=== PATIENT | female | born 1955 | race Caucasian/White ===

== ENCOUNTER 2023-05-16 11:02 | Emergency (ER) | payer MEDICARE, SELFPAY ==
[2023-05-16 11:17] VITALS: BP 174/97; PULSE 81; RESP 20; TEMP 36.7; O2SAT 95; BMI 38.7
--- NOTE | 2023-05-16 11:32 | ECG_ITS ---
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
--- NOTE | 2023-05-16 11:32 | CT_ITS ---
The [address] [address] Patient Name: INDERJIT MANN MRN: [id number] date: 1955 Sex: F Assigned Patient Location: ER Current Patient Location: ER Accession/Order Number: [id number] Exam Date: 05/16/2023 11:55 Report Date: 05/16/2023 12:25 At the request of: HERMAN HASSAN Procedure: CT head/brain wo con EXAM: CT head/brain wo con HISTORY: vertigo COMPARISON: None. TECHNIQUE: Axial CT images were obtained of the head without intravenous contrast. Multiplanar reconstructions were performed. FINDINGS: No acute intracranial hemorrhage. No acute loss of lovelace/white differentiation. The ventricles and sulci are normal in appearance. The osseous structures are unremarkable. No soft tissue abnormality identified. The paranasal sinuses and mastoid air cells are clear. IMPRESSION: 1. No acute intracranial abnormality. Electronically authenticated by: YISEL CORMIER Date: 05/16/2023 12:25
[2023-05-16 11:56] LABS: Basophils Percent Auto 0.4 % (0.2-2.0); Eosinophils Absolute Auto 0.1 10^3/uL (0.0-0.7); Eosinophils Percent Auto 1.6 % (0.9-7.0); Hematocrit 43.8 % (36.0-48.0); Hemoglobin 14.5 g/dL (12.0-16.0); Immature Granulocytes Abs Auto 0.03 10^3/uL (0.00-0.03); Immature Granulocytes Pct Auto 0.4 % (0.0-0.5); Lymphocytes Absolute Auto 1.3 10^3/uL (1.2-3.8); Mean Corpuscular HGB Conc 33.1 g/dL (29.9-35.2); Mean Corpuscular Hemoglobin 28.9 pg (26.7-34.0); Mean Corpuscular Volume 87.3 fL (81.0-99.0); Mean Platelet Volume 9.2 fL (9.5-13.5); Monocytes Absolute Auto 0.7 10^3/uL (0.3-0.8); Monocytes Percent Auto 8.9 % (1.7-12.0); Neutrophils Absolute Auto 5.1 10^3/uL (1.4-6.5); Neutrophils Percent Auto 70.7 % (43.0-75.0); Platelet Count 256 10^3/uL (150-450); Red Blood Count 5.02 10^6/uL (4.20-5.40); Red Cell Distribution Width 14.3 % (11.0-15.0); White Blood Count 7.3 10^3/uL (4.0-11.0)
[2023-05-16 11:57] VITALS: BP 108/67; BP 111/68; BP 116/64; PULSE 76; PULSE 85; PULSE 94
[2023-05-16] MEDS: MECLIZINE HCL 12.5 MG TABLET 25 MG PO (12:07)
[2023-05-16] MEDS: ONDANSETRON PF 4 MG/2 ML VIAL IV (12:08)
[2023-05-16] MEDS: 0.9 % SODIUM CHLORIDE 1,000 ML 999 ML IV (12:10)
[2023-05-16] MEDS: METHYLPREDNISOLONE SOD SUCC PF 125 MG/2 ML VIAL IVP (12:10)
[2023-05-16] MEDS: DIAZEPAM 5 MG/ML - 2 ML INJ SYRINGE 2 MG IV (12:15)
--- NOTE | 2023-05-16 12:15 | ED.DIZZY1 ---
HPI - Dizziness General Chief Complaint: Dizziness Stated Complaint: DIZZINESS Time Seen by Provider: 05/16/23 11:10 Source: patient Mode of arrival: ambulance Limitations: no limitations History of Present Illness HPI Narrative: patient developed dizziness about 3 weeks ago. Recently it has become worse and she is having difficulty performing normal tasks at home. She describes it as an intense sensation of movement or spinning, worse with movement of the head or change in body position. No nausea or vomiting. She denied URI symptoms but admits to some pain along the right side of the head and right neck. She has seasonal allergies. She suffers from urinary and stool incontinence associated with low back surgery - these are chronic. She denied any chest pain, pressure or tightness. She has chronic palpitations. Related Data Home Medications Medication Instructions Recorded Confirmed alprazolam 1 mg tablet mg 05/16/23 atenolol 50 mg tablet mg 05/16/23 Previous Rx's Medication Instructions Recorded meclizine 25 mg tablet 25 mg PO .q8hr PRN dizziness #20 05/16/23 tabs ondansetron 4 mg disintegrating 4 mg PO Q6H PRN vertigo #20 tabs 05/16/23 tablet Allergies Allergy/AdvReac Type Severity Reaction Status Date / Time Sulfa (Sulfonamide Allergy Intermediate Verified 05/16/23 11:24 Antibiotics) [facility] Medical History (Updated 05/16/23 @ 12:53 by Herman Hassan) Surgical History (Updated 05/16/23 @ 12:28 by Margoth Armendariz) Social History Smoking status: Never smoker Exam Narrative Exam Narrative: Nurses notes and vital signs reviewed and patient is not hypoxic. afebrile General: Well-appearing and in no apparent distress. Skin: Warm, dry, no pallor noted. No rash. Head: Normocephalic, atraumatic. Neck: Supple, non-tender. Eye: Pupils are equal, round and EOMI. No scleral icterus. mild horizontal nystagmus Ears, Nose, Mouth, and Throat: TM are clear, no nasal mucosal hypertrophy. Oral mucosa is moist, no posterior oropharynx erythema, uvula is mid-line Cardiovascular: Regular Rate and Rhythm without murmur, gallop or rub. Respiratory: No accessory muscle use or respiratory distress. Lungs are clear to auscultation, no wheezing, rales or rhonchi Musculoskeletal: normal ROM, no calf or popliteal tenderness, no lower extremity edema/swelling GI: Abdomen is soft, non-distended. Normal bowel sounds. No tenderness to palpation. No rebound, guarding, or rigidity noted. Neurological: A&O x4. No cranial nerve dysfunction observed. Mild truncal ataxia when she first sits up or turns her head. Moves all extremities. Sensation intact. Psychiatric: Cooperative and interactive. Normal mood and affect. Constitutional Vital Signs - 24 hr 05/16/23 11:17 05/16/23 11:57 Temperature 98.0 F Pulse Rate [Monitor] 81 Pulse Rate [orthostatic lying] 76 Pulse Rate [orthostatic sitting Left] 85 Pulse Rate [orthostatic standing Left] 94 H Respiratory Rate 20 Blood Pressure [Left Arm] 174/97 H Blood Pressure [orthostatic lying Left Arm] 116/64 Blood Pressure [orthostatic sitting Left Arm] 111/68 Blood Pressure [orthostatic standing Left Arm] 108/67 Pulse Oximetry 95 Course Vital Signs Vital signs: Vital Signs Temperature 98.0 F 05/16/23 11:17 Pulse Rate 81 05/16/23 11:17 Respiratory Rate 20 05/16/23 11:17 Blood Pressure 174/97 H 05/16/23 11:17 Pulse Oximetry 95 05/16/23 11:17 Temperature 98.0 F 05/16/23 11:17 Pulse Rate 76 05/16/23 11:57 Respiratory Rate 20 05/16/23 11:17 Blood Pressure 116/64 05/16/23 11:57 Pulse Oximetry 95 05/16/23 11:17 MDM - Dizziness MDM Narrative Medical decision making narrative: 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 Blood drawn and sent for evaluation. orthostatics were negative but she had an 18bpm increase in her HR from supine to standing. She was given a liter of NS IVF. She was sent for noncontrast CT scanning of the brain. CT unremarkable for acute pathology. CBC, electrolytes and renal function normal. Elevation of LFTs is noted. The patient received IV Valium, IV Zofran, IV Solu-Medrol and oral meclizine. On recheck her vertigo was substantially decreased. She was informed of results, diagnosis discussed and she was discharged home prescription for zofran and meclizine. She will see her PCP for follow up. Lab Data Attestation: I reviewed the patient's lab results. Labs: Lab Results 05/16/23 Range/Units 11:50 WBC 7.3 (4.0-11.0) 10^3/uL RBC 5.02 (4.20-5.40) 10^6/uL Hgb 14.5 (12.0-16.0) g/dL Hct 43.8 (36.0-48.0) % MCV 87.3 (81.0-99.0) fL MCH 28.9 (26.7-34.0) pg MCHC 33.1 (29.9-35.2) g/dL RDW 14.3 (11.0-15.0) % Plt Count 256 (150-450) 10^3/uL MPV 9.2 L (9.5-13.5) fL Neut % (Auto) 70.7 (43.0-75.0) % Lymph % (Auto) 18.0 L (20.5-60.0) % [place] % (Auto) 8.9 (1.7-12.0) % Eos % (Auto) 1.6 (0.9-7.0) % Baso % (Auto) 0.4 (0.2-2.0) % Neut # (Auto) 5.1 (1.4-6.5) 10^3/uL Lymph # (Auto) 1.3 (1.2-3.8) 10^3/uL [place] # (Auto) 0.7 (0.3-0.8) 10^3/uL Eos # (Auto) 0.1 (0.0-0.7) 10^3/uL Baso # (Auto) 0.0 (0.0-0.1) 10^3/uL Abs Immat Gran (auto) 0.03 (0.00-0.03) 10^3/uL Imm/Tot Granulo (auto) 0.4 (0.0-0.5) % Sodium 142 (136-145) mmol/L Potassium 3.9 (3.5-5.1) mmol/L Chloride 108 H (98-107) mmol/L Carbon Dioxide 27.2 (21.0-32.0) mmol/L Anion Gap 10.7 BUN 12.0 (7.0-18.0) mg/dL Creatinine 0.85 (0.55-1.02) mg/dL Est GFR ( Amer) >60 (>=60) Est GFR (Non-Af Amer) >60 (>=60) BUN/Creatinine Ratio 14.1 Glucose 120 H (74-106) mg/dL Calcium 9.2 (8.5-10.1) mg/dL Total Bilirubin 0.6 (0.2-1.0) mg/dL AST 167 H (15-37) U/L ALT 302 H (14-59) U/L Alkaline Phosphatase 173 H (46-116) U/L Total Protein 7.0 (6.4-8.2) g/dL Albumin 3.4 (3.4-5.0) g/dL Globulin 3.6 g/dL Albumin/Globulin Ratio 0.[address] scan - head: Radiologist's impression: Patient Name: INDREJIT MANN MRN: [id number] date: 1955 Sex: F Assigned Patient Location: ER Current Patient Location: ER Accession/Order Number: [id number] Exam Date: 05/16/2023 11:55 Report Date: 05/16/2023 12:25 At the request of: HERMAN HASSAN Procedure: CT head/brain wo con EXAM: CT head/brain wo con HISTORY: vertigo COMPARISON: None. TECHNIQUE: Axial CT images were obtained of the head without intravenous contrast. Multiplanar reconstructions were performed. FINDINGS: No acute intracranial hemorrhage. No acute loss of lovelace/white differentiation. The ventricles and sulci are normal in appearance. The osseous structures are unremarkable. No soft tissue abnormality identified. The paranasal sinuses and mastoid air cells are clear. IMPRESSION: 1. No acute intracranial abnormality. Electronically authenticated by: YISEL CORMIER Date: 05/16/2023 12:25 ECG Data Interpretation: EKG interpretation: Emergency Department physician interpretation. Normal sinus rhythm at 77bpm. Normal axis, normal intervals. Premature contraction was noted. No ST segment elevation or depression. Discharge Plan Discharge Chief Complaint: Dizziness Clinical Impression: Benign paroxysmal positional vertigo Patient Disposition: Home, Self-Care Time of Disposition Decision: 12:52 Prescriptions / Home Meds: New ondansetron 4 mg tablet,disintegrating 4 mg PO Q6H PRN (Reason: vertigo) Qty: 20 0RF meclizine 25 mg tablet 25 mg PO .q8hr PRN (Reason: dizziness) Qty: 20 0RF No Action alprazolam 1 mg tablet atenolol 50 mg tablet Instructions: Benign Paroxysmal Positional Vertigo (ED) Stand Alone Forms: Portal Instructions Referrals: Connie Stewart MD [Primary Care Provider] - 1 week
[2023-05-16 12:16] LABS: Alanine Aminotransferase 302 U/L (14-59); Albumin Globulin Ratio 0.9; Albumin Level 3.4 g/dL (3.4-5.0); Alkaline Phosphatase 173 U/L (46-116); Anion Gap 10.7; Aspartate Amino Transferase 167 U/L (15-37); BUN Creatinine Ratio 14.1; Bilirubin Total 0.6 mg/dL (0.2-1.0); Calcium 9.2 mg/dL (8.5-10.1); Carbon Dioxide 27.2 mmol/L (21.0-32.0); Chloride 108 mmol/L (98-107); Estimated GFR (African America >60 (>=60); Estimated GFR (Non-African Ame >60 (>=60); Globulin 3.6 g/dL; Glucose 120 mg/dL (74-106); Potassium 3.9 mmol/L (3.5-5.1); Sodium 142 mmol/L (136-145)
[2023-05-16 13:49] VITALS: BP 120/76; PULSE 88; RESP 16; O2SAT 97
== END 2023-05-16 13:52 | disposition home or self-care (01) ==
PROVIDERS: Emergency Provider Emergency Medicine; PCP Family Medicine
DX: H81.10 Benign paroxysmal vertigo, unspecified ear (principal); R32 Unspecified urinary incontinence; R15.9 Full incontinence of feces; Z79.899 Other long term (current) drug therapy
CPT/HCPCS: 36415; 70450; 80053; 81003; 85025; 93005; 96374; 96375; 99285; J2930

== ENCOUNTER 2023-12-19 09:18 | Outpatient (OUT) | payer MEDICARE, SELFPAY ==
--- NOTE | 2023-12-19 09:42 | XR_ITS ---
The [address] [address] Patient Name: INDERJIT MANN MRN: [id number] date: 1955 Sex: F Assigned Patient Location: [facility] Current Patient Location: [facility] Accession/Order Number: [id number] Exam Date: 12/19/2023 09:48 Report Date: 12/19/2023 14:04 At the request of: TOBY QUINTANA Procedure: XR facial bones min 3V PROCEDURE: XR facial bones min 3V COMPARISON: None. HISTORY: Jaw Swelling R22.0 FINDINGS: BONES:No fracture, acute abnormality, or significant arthropathy. SOFT TISSUES:Negative. No visible soft tissue swelling. EFFUSION:None visible. OTHER: Negative. XR/XR facial bones min 3V IMPRESSION: No acute radiographic abnormality Electronically authenticated by: CAITLYN CABRERA Date: 12/19/2023 14:04
== END 2023-12-19 09:19 | disposition home or self-care (01) ==
LOC: RAD 09:20
PROVIDERS: PCP Family Medicine; Visit Provider Family Medicine
DX: R22.0 Localized swelling, mass and lump, head (principal)
CPT/HCPCS: 70150

== ENCOUNTER 2023-12-30 10:41 | Outpatient (OUT) | payer MEDICARE, SELFPAY ==
--- OUTSIDE RECORDS SUMMARY | 2023-12-30 10:50 | XMS_ITS | CCD ---
Author Name Unknown Address [address] [place] [address] Organization [facility] Care Team Providers Care Project Management Director Name Role Phone Toby Quintana Unavailable Unavailable Unavailable MD Toby Quintana Primary Care Provider [phone] Leeann Quintana Attending Provider [phone] Unavailable Unavailable Leeann Quintana Unavailable DR SHALA OMER Consulting Unavailable QUINTANA, DR TOBY Schofield Admitting Unavailable QUINTANA, DR TOBY Schofield Attending Unavailable QUINTANA, DR TOBY Schofield Primary Care Unavailable QUINTANA, DR TOBY Schofield Consulting Unavailable QUINTANA, DR TOBY Schofield Admitting Unavailable QUINTANA, DR TOBY Schofield Attending Unavailable QUINTANA, DR TOBY Schofield Consulting Unavailable QUINTANA, DR TOBY Schofield Primary Care Unavailable QUINTANA, DR TOBY Schofield Admitting Unavailable [place], DR CAITLYN Noe Consulting Unavailable QUINTANA, DR TOBY Schofield Attending Unavailable QUINTANA, DR TOBY Schofield Primary Care Unavailable QIUNTANA, DR TOBY Schofield Consulting Unavailable LAWRENEC, DR LAUREL Banks Admitting Unavailabl e QUINTANA, DR TOBY Schofield Primary Care Unavailable REINECK, DR LAUREL Banks Attending Unavailabl e LAWRENCE, DR LAUREL Banks Consulting Unavailabl e QUINTANA, DR TOBY Schofield Primary Care Unavailable BLADELEEANN Saldana Referring Unavailable LAKSHMIPATHY ., NARENDRANATH Admitting Nanda vailable LAKSHMIPATHY ., LASHONDA Attending Nanda vailable MARIANO, DR TOBY Schofield Admitting Unavailable QUINTANA, DR TOBY Schofield Primary Care Unavailable QUINTANA, DR TOBY Schofield Attending Unavailable QUINTANA, DR TOBY Schofield Consulting Unavailable Toby Quintana Unavailable MD Samuel Chatman II Attending Provider EdwardsLeeann Admitting Unavailable Leeann Quintana Attending Unavailable Toby Quintana Primary Care Unavailable Samuel Chatman II Admitting UnavailSamuel Dubois II Attending UnavailToby Swain Primary Care Unavailable Samuel Chatman II Unavailable [phone] ZEESHAN, Dr. AGUSTIN Henning Attending Unavailable Toby Quintana Primary Care Unavaila marianna Quintana, Dr. Toby Feliz Primary Care Unav ailable Lore, Dr. Iban Penn Referring Nanda heide Quintana, Dr. Toby Feliz Primary Care Unav ailable Lore, Dr. Iban Penn Attending Nanda Toby Ron MD Primary Care Provider [phone] IBAN TORREZ Attending Unavailable TOBY QUINTANA Primary Care Unavailable Allergies Allergy Classification Reported Allergen(s) Allergy Type Date of Onset Reaction(s) Facility (6 sources) Sulfamethoxazole; Translations: [sulfa] Drug Allergy Rash, Swelling [address] Work Phone: (5 sources) Sulfonamides (Antibiotic); Translations: [Sulfa (Sulfonamide Antibiotics)] Allergy to substance 04-08-20 19 Hives, Rash, Swelling [facility] (20 sources) Sulfacetamide / Sulfur Drug Allergy rash [facility] Other (1 source) Morphine Drug Allergy [facility] (1 source) Quinolones (Antibiotic) Drug allergy (disorder) [facility] (2 sources) Sulfonamides (Antibiotic) Drug allergy (disorder) 08-06-20 13 [facility] (12 sources) Acetaminophen / oxyCODONE Drug Allergy 07-28-20 13 Unknown [facility] Other (12 sources) Meperidine Drug Allergy 07-28-20 13 Unknown [facility] Other (13 sources) Quinolones Drug allergy 07-28-20 13 Comment:Fluorq uinolones [facility] Other (13 sources) sulfADIAZINE Drug Allergy Unknown [facility] Other (13 sources) Substance with sulfonamide structure and antibacterial mechanism of action (substance) Drug allergy 07-28-20 13 Unknown [facility] Other (13 sources) Statins Depletion *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 Propensity to adverse reactions 07-28-20 13 Unknown [facility] Other (4 sources) Allergies Reconciled Propensity to adverse reactions Unknown [facility] Other (4 sources) patient allergy list reviewed by nurse or physicia Propensity to adverse reactions 07-15-20 Comment:Done [facility] Other (1 source) Acetaminophen / oxyCODONE Drug Allergy 07-28-20 13 Unknown [facility] Other (1 source) Meperidine Drug Allergy 07-28-20 13 Unknown [facility] Other Medications Current Medications Medication Drug Class(es) Dates Sig (Normalized) Sig (Original) acetaminophen 325 mg / HYDROcodone bitartrate 5 mg oral tablet (20 sources) Opioid Agonist Start: 08-31-2021 End: 12-09-2023 take 1 tablet by mouth every four hours as needed HYDROcodone-acetami nophen ([place]) 5-325 mg tablet Take 1 tablet by mouth every 4 hours if needed. 0 08/31/2021 12/09/2023 Discontinued (Therapy completed) Start: 08-31-2021 HYDROcodone-Ac etaminophen 5-325 MG Oral Tablet Quantity: 120 Refills: 0 Ordered: 31-Aug-2021 DO Start : 31-Aug-2021 Active take 1 tablet by valentin every six hours HYDROcodone-Acetaminophen 5-325 MG take 1 tablet by mouth every 6 hours if needed Oral for 30 Days Active albuterol 0.83 mg/ml inhalation solution (5 sources) beta2-Adrenergic Agonist Albuter ol Sulfate (2.5 MG/3ML) 0.083% 3 mL as needed Inhalation every 6 hrs Active ALPRAZolam 1 mg oral tablet (20 sources) Benzodiazepine Start: 12-08-19 take 1 tablet by mouth twice daily for anxiety, then take 2 tablets by mouth at bedtime for anxiety ALPRAZolam 1 MG TAKE 1 TABLET BY MOUTH TWICE A DAY IF NEEDED FOR ANXIETY AND 2 TABLETS AT BEDTIME for 30 Nov, Active Start: 11-04-2023 take 1 tablet by valentin th twice daily for anxiety, then take 2 tablets by mouth at bedtime for anxiety ALPRAZolam 1 MG TAKE 1 TABLET BY MOUTH TWICE A DAY IF NEEDED FOR ANXIETY AND 2 TABLETS AT BEDTIME for 30 Oct, Active Start: 09-10-2023 take 1 tablet by valentin th twice daily for anxiety, then take 2 tablets by mouth at bedtime for anxiety ALPRAZolam 1 MG TAKE 1 TABLET BY MOUTH TWICE A DAY IF NEEDED FOR ANXIETY AND 2 TABLETS AT BEDTIME for 30 Sep, Active Start: 08-04-2023 take 1 tablet by valentin th twice daily for anxiety, then take 2 tablets by mouth at bedtime for anxiety ALPRAZolam 1 MG TAKE 1 TABLET BY MOUTH TWICE A DAY IF NEEDED FOR ANXIETY AND 2 TABLETS AT BEDTIME for 30 Jul, Active Start: 05-12-2023 take 1 tablet by valentin th twice daily for anxiety, then take 2 tablets by mouth at bedtime for anxiety ALPRAZolam 1 MG TAKE 1 TABLET BY MOUTH TWICE A DAY IF NEEDED FOR ANXIETY AND 2 TABLETS AT BEDTIME for 30 May, Active Start: 04-11-2023 Start: 02-17-2023 take 1 tablet by valentin th twice daily as needed for anxiety, then take 2 tablets by mouth once daily at bedtime as needed for anxiety Xanax 1 MG 1 tab bid prn anxiety and 2 po qhs Orally for 30 days Feb, Active Start: 12-17-2022 take 1 tablet by valentin th twice daily as needed for anxiety, then take 2 tablets by mouth once daily at bedtime as needed for anxiety Xanax 1 MG 1 tab bid prn anxiety and 2 po qhs Orally for 30 days Jan, Active Start: 04-08-2019 take 2 mg by mouth o nce daily at bedtime Alprazolam Active 2 MG PO Daily at bedtime April 07, 2019 11:00pm take 1 tablet by valentin th three times daily as needed ALPRAZolam (Xanax) 1 mg tablet Take 1 tablet (1 mg) by mouth 3 times a day as needed. 0 Active amoxicillin 500 mg oral capsule (13 sources) Penicillin-class Antibacterial Start: 10-21-2023 take 1 capsule by mouth every eight hours Amoxicillin 500 MG 1 capsule Orally every 8 hrs for 7 days Oct, Active Start: 04-14-2023 take 4 capsules by mouth once Amoxicillin 500 MG 4 caps Orally once for 1 days Apr, Active take 1 capsule by mo uth every eight hours Amoxicillin 500 MG 1 capsule Orally Three times a day for 7 days Active take 2 capsules by m outh every twelve hours Amoxicillin 500 MG 2 capsules Orally Twice a day for 2 days Active atenolol 50 mg oral tablet (20 sources) beta-Adrenergic Anahi Start: 12-08-2023 take 1 tablet by mouth once daily in the morning, then take 0.5 tablet by mouth in the evening atenolol (Tenormin) 50 mg tablet Indications: Supraventricular tachycardia by ECG , Palpitations TAKE 1 TABLET BY MOUTH EVERY MORNING then TAKE 1/2 (ONE-HALF) OF A TABLET IN THE EVENING 225 tablet 0 12/08/2023 Active Start: 08-30-2021 take 0.5 tablet by m outh twice daily Atenolol 50 MG Oral Tablet TAKE 1/2 TABLET TWICE DAILY Quantity: 90 Refills: 3 Ordered: 22-May-2023 Iban Torrez MD Start : 30-Aug-2021 Active decreased Start: 04-08-2019 take 25 mg by mouth once daily Atenolol Active 25 MG PO Daily April 07, 2019 11:00pm Start: 04-08-2019 take 50 mg by mouth once daily in the evening Atenolol Active 50 MG PO Every evening April 07, 2019 11:00pm DULoxetine 60 mg delayed release oral capsule (2 sources) Serotonin and Norepinephrine Reuptake Inhibitor Start: 04-08-2019 take 60 mg by mouth once daily Duloxetine Active 60 MG PO Daily April 07, 2019 11:00pm Fish Oil-Krill Oil - (2 sources) Fish Oil-Krill Oil - as directed Orally Active 120 actuat fluticasone propionate 0.23 mg/actuat / salmeterol 0.021 mg/actuat metered dose inhaler (5 sources) Corticosteroid, beta2-Adrenergic Agonist take 2 puff(s) by inhalation twice daily Advair HFA 230-21 MCG/ACT 2 puffs Inhalation Twice a day Active naproxen 500 mg oral tablet (2 sources) Nonsteroidal Anti-inflammatory Drug Start: 04-08-2019 take 500 mg by mouth twice daily Naproxen Active 500 MG PO Twice daily April 07, 2019 11:00pm omega 9-kfb-crs-fish oil 360 mg-108 mg- 180 mg-1,200 mg capsule (1 source) take 1 capsule by mouth once daily omega 3-gco-zks-fish oil 360 mg-108 mg- 180 mg-1,200 mg capsule Take 1 capsule by mouth once daily. 0 Active ondansetron 4 mg disintegrating oral tablet (5 sources) Serotonin-3 Receptor Antagonist Start: 02-07-2023 take 1 tablet by mouth three times daily as needed Ondansetron 4 MG 1 tablet on the tongue and allow to dissolve Orally tid prn for 10 days Jan, Active oxyCODONE hydrochloride 5 mg oral tablet (10 sources) Opioid Agonist Start: 10-24-2023 take 1 tablet by mouth every six hours oxyCODONE HCl 5 MG 1 tablet as needed Orally every 6 hrs for 7 days Oct, Active Start: 10-24-2023 take 1 tablet by valentin every six hours oxyCODONE HCl 5 MG 1 tablet as needed Orally every 6 hrs for 7 days Oct, Active Start: 09-25-2023 take 1 tablet by valentin every six hours oxyCODONE HCl 5 MG 1 tablet as needed Orally every 6 hrs for 7 days Sep, Active take 1 capsule by mo [facility] every six hours as needed oxyCODONE (Oxy-IR) 5 mg immediate release capsule Take 1 capsule (5 mg) by mouth every 6 hours if needed for severe pain (7 - 10). 0 Active pregabalin 50 mg oral capsule (5 sources) take 1 capsule by mouth every twelve hours Lyrica 50 MG 1 capsule Orally Twice a day Active promethazine hydrochloride 12.5 mg oral tablet (9 sources) Phenothiazine take 1 tablet by mouth every six hours as needed Promethazine HCl 12.5 MG 1 tablet as needed Orally every 6 hrs prn for 5 days Active traMADol hydrochloride 50 mg oral tablet (2 sources) Opioid Agonist Start: 09-22-2023 take 1 tablet by mouth twice daily as needed traMADol HCl 50 MG 1 tablet as needed Orally bid prn for 30 days Sep, Active Completed/Discontinued Medications Medication Drug Class(es) Dates Sig (Normalized) Sig (Original) esomeprazole 40 mg delayed release oral capsule (16 sources) Proton Pump Inhibitor Start: 04-24-2023 take 1 capsule by mouth every twenty-four hours Esomeprazole Magnesium 40 MG 1 capsule Orally Once a day for 30 days Apr, Not-Taking/PRN Fish Oil 1200 MG Oral Capsule (5 sources) take 1 capsule by mouth once daily Fish Oil 1200 MG Oral Capsule TAKE 1 CAPSULE Daily Quantity: 0 Refills: 0 Ordered: 04-Sep-2021 DO Active Lidocaine (20 sources) Antiarrhythmic, Amide Local Anesthetic Start: 08-20-2023 Lidocaine Aug, 30 mg Start: 05-08-2023 Lidocaine 29 J un2022 30 mg Start: 02-07-2023 Start: 02-07-2023 Lidocaine 31 M ar, 2022 30 mg sucralfate 1000 mg oral tablet (16 sources) Aluminum Complex Start: 04-24-2023 take 1 tablet by mouth every twelve hours Carafate 1 GM 1 tablet on an empty stomach Orally Twice a day for 30 days Apr, Not-Taking/PRN Start: 04-24-2023 take 1 tablet by valentin th every twelve hours Carafate 1 GM 1 tablet on an empty stomach Orally Twice a day for 30 days Apr, Not-Taking triamcinolone acetonide 40 mg/ml injectable suspension (20 sources) Corticosteroid Start: 02-07-2023 Kenalog-40 Aug, 40 mg Start: 02-07-2023 Problems Active Problems Problem Classification Problem Date Documented Da te Episodic/Chronic Abdominal pain (12 sources) Left upper quadrant pain; Translations: [Left upper quadrant pain] Onset: 6 Episodic Acute bronchitis (4 sources) Acute bronchitis; Translations: [Acute bronchitis, unspecified] Episodic Allergic reactions (1 source) Allergy status to other antibiotic agents status; Translations: [Allergy status to other antibiotic agents] Onset: 3 Episodic Anxiety disorders (20 sources) Anxiety disorder, unspecified; Translations: [Anxiety] Onset: 9 Chronic Asthma (12 sources) Uncomplicated asthma; Translations: [Unspecified asthma, uncomplicated] Onset: 5 Chronic Cardiac dysrhythmias (12 sources) EKG: supraventricular tachycardia; Translations: [Paroxysmal supraventricular tachycardia] Onset: 4 12-09-2023 Chronic Cardiac dysrhythmias (10 sources) Palpitations; Translations: [Palpitations] Onset: 4 12-09-2023 Episodic Chronic obstructive pulmonary disease and bronchiectasis (5 sources) Chronic obstructive pulmonary disease, unspecified; Translations: [Acute exacerbation of chronic asthmatic bronchitis] Onset: 9 Chronic Disorders of lipid metabolism (18 sources) Hyperlipidemia; Translations: [Other and unspecified hyperlipidemia] Onset: 9 12-09-2023 Chronic Disorders of teeth and jaw (1 source) Periapical abscess without sinus Episodic Esophageal disorders (20 sources) Gastroesophageal reflux disease without esophagitis; Translations: [Gastro-esophageal reflux disease without esophagitis] Onset: 8 Chronic Essential hypertension (1 source) Essential (primary) hypertension; Translations: [Essential (primary) hypertension] Onset: 3 Chronic Gastroduodenal ulcer (except hemorrhage) (4 sources) H/O: peptic ulcer; Translations: [Personal history of peptic ulcer disease] Episodic Genitourinary symptoms and ill-defined conditions (4 sources) Dysuria; Translations: [Dysuria] Episodic Inflammation; infection of eye (except that caused by tuberculosis or sexually transmitteddisease) (4 sources) Acute atopic conjunctivitis; Translations: [Acute atopic conjunctivitis, unspecified eye] Episodic Malaise and fatigue (8 sources) Fatigue; Translations: [Other fatigue] Onset: 5 Episodic Mood disorders (1 source) Major depressive disorder, single episode, unspecified; Translations: [RODNEY DEPRESS D/O SINGLE EPIS UNS] Onset: 2 Chronic Nausea and vomiting (20 sources) Nausea and vomiting; Translations: [Nausea with vomiting, unspecified] Episodic Osteoarthritis (20 sources) Disorder of hip joint; Translations: [Unilateral primary osteoarthritis, unspecified hip] Onset: 3 Chronic Other acquired deformities (20 sources) Acquired unequal leg length; Translations: [Unequal limb length (acquired), unspecified site] Episodic Other circulatory disease (4 sources) Elevated blood-pressure reading without diagnosis of hypertension; Translations: [Elevated blood-pressure reading, without diagnosis of hypertension] Episodic Other connective tissue disease (1 source) Fibromyalgia; Translations: [Fibromyalgia] Onset: 3 Episodic Other connective tissue disease (1 source) Arthrodesis status; Translations: [Arthrodesis status] Onset: 3 Episodic Other connective tissue disease (4 sources) Fibromyalgia; Translations: [Fibromyalgia] Episodic Other diseases of veins and lymphatics (4 sources) Lymphedema; Translations: [Lymphedema, not elsewhere classified] Chronic Other diseases of veins and lymphatics (4 sources) Disorder of vein; Translations: [Other specified disorders of veins] Episodic Other gastrointestinal disorders (4 sources) Diarrhea; Translations: [Diarrhea, unspecified] Episodic Other injuries and conditions due to external causes (2 sources) At risk for falls ; Translations: [History of fall] Episodic Other lower respiratory disease (7 sources) Dyspnea; Translations: [Other respiratory abnormalities] Onset: 4 11-13-2023 Episodic Other nervous system disorders (20 sources) Chronic pain; Translations: [Other chronic pain] Chronic Other nervous system disorders (20 sources) Cervical myelopathy; Translations: [Disease of spinal cord, unspecified] Chronic Other nervous system disorders (20 sources) Chronic pain syndrome; Translations: [Chronic pain syndrome] Chronic Other nervous system disorders (5 sources) Other chronic pain Chronic Other non-traumatic joint disorders (20 sources) Knee pain; Translations: [Pain in left knee] Episodic Other non-traumatic joint disorders (2 sources) Pain in left hip; Translations: [PAIN IN LEFT HIP] Onset: 2 Episodic Other non-traumatic joint disorders (5 sources) Pain in right knee Episodic Other non-traumatic joint disorders (5 sources) Pain in left knee Episodic Other non-traumatic joint disorders (12 sources) Arthralgia of the lower leg; Translations: [Pain in right knee] Onset: 9 Episodic Other nutritional; endocrine; and metabolic disorders (11 sources) Body mass index 40+ - severely obese; Translations: [Body Mass Index 40.0-44.9, adult] Onset: 9 Chronic Other nutritional; endocrine; and metabolic disorders (1 source) Morbid obesity; Translations: [Morbid obesity] Chronic Other nutritional; endocrine; and metabolic disorders (3 sources) Obesity; Translations: [Obesity, unspecified] Chronic Other nutritional; endocrine; and metabolic disorders (1 source) Obesity, unspecified; Translations: [Obesity, unspecified] Onset: 3 Chronic Other nutritional; endocrine; and metabolic disorders (1 source) Body mass index (BMI) 39.0-39.9, adult; Translations: [Body mass index [BMI] 39.0-39.9, adult] Onset: 3 Chronic Other nutritional; endocrine; and metabolic disorders (9 sources) Obese class II; Translations: [Body mass index 39.0-39.9, adult] Onset: 8 12-09-2023 Chronic Other skin disorders (1 source) Localized swelling, mass and lump, head Episodic Other upper respiratory infections (4 sources) Chronic sinusitis; Translations: [Chronic sinusitis, unspecified] Chronic Other upper respiratory infections (8 sources) Acute pharyngitis; Translations: [Acute pharyngitis, unspecified] Onset: 4 Episodic Residual codes; unclassified (1 source) Swelling - edema - symptom; Translations: [Edema] Episodic Residual codes; unclassified (1 source) Acquired absence of both cervix and uterus; Translations: [Acquired absence of both cervix and uterus] Onset: 3 Episodic Residual codes; unclassified (1 source) Family history of malignant neoplasm of other organs or systems; Translations: [Family history of malignant neoplasm of organs or systems] Onset: 3 Episodic Residual codes; unclassified (1 source) Acquired absence of other organs; Translations: [Acquired absence of other organs] Onset: 3 Episodic Residual codes; unclassified (4 sources) Postmenopausal state; Translations: [Asymptomatic menopausal state] Episodic Screening and history of mental health and substance abuse codes (6 sources) Ex-smoker; Translations: [Personal history of tobacco use] Episodic Comment on above: quit 1987; Skull and face fractures (1 source) Fracture of tooth (traumatic), initial encounter for open fracture Episodic Spondylosis; intervertebral disc disorders; other back problems (20 sources) Intervertebral disc disorder of cervical region with myelopathy; Translations: [Cervical disc disorder at C6-C7 level with myelopathy] Onset: 3 Chronic Spondylosis; intervertebral disc disorders; other back problems (20 sources) Chronic low back pain; Translations: [Low back pain, unspecified] Onset: 3 Episodic Unclassified (3 sources) CONTACT W/AND (SUSP) EXPOS COVID-19; Translations: [CONTACT W/AND (SUSP) EXPOS COVID-19] Onset: 2 Unclassified (1 source) Pain in left hip; Translations: [Pain in left hip] Onset: 3 Unclassified (1 source) Low back pain, unspecified; Translations: [Low back pain, unspecified] Onset: 3 Unclassified (1 source) Supraventricular tachycardia, unspecified; Translations: [Supraventricular tachycardia, unspecified] Onset: 4 Varicose veins of lower extremity (4 sources) Pain co-occurrent and due to varicose veins of bilateral legs; Translations: [Varicose veins of bilateral lower extremities with pain] Episodic Past or Other Problems Problem Classification Problem Date Documented Date Episodic/Chronic Deficiency and other anemia (4 sources) Anemia; Translations: [Anemia, unspecified] Onset: 08-08-2015 Episodic Diabetes mellitus without complication (4 sources) Abnormal glucose level; Translations: [Other abnormal glucose] Onset: 06-04-2017 Episodic Headache; including migraine (4 sources) Headache; Translations: [Headache] Onset: 06-16-2018 Episodic Immunizations and screening for infectious disease (4 sources) Vaccination given; Translations: [Encounter for immunization] Onset: 09-12-2014 Episodic Other aftercare (1 source) Other intermediate (current) drug therapy; Translations: [OTH COLOR ADVISER CURRENT DRUG THERAPY] Onset: 07-23-2022 Episodic Other connective tissue disease (4 sources) Spasm; Translations: [Spasm of muscle] Onset: 01-07-2019 Episodic Other connective tissue disease (4 sources) Muscle pain; Translations: [MYALGIA, UNSPECIFIED SITE] Onset: 01-07-2019 Episodic Other injuries and conditions due to external causes (4 sources) Traumatic AND/OR non-traumatic injury; Translations: [Other injury of unspecified body region, initial encounter] Onset: 07-16-2018 Episodic Other non-epithelial cancer of skin (1 source) Personal history of other malignant neoplasm of skin; Translations: [PERSONAL HX OTH MALIG NEOPLASM SKIN] Onset: 07-23-2022 Episodic Other non-traumatic joint disorders (1 source) Pain in right hip; Translations: [PAIN IN RIGHT HIP] Onset: 04-18-2022 Episodic Other screening for suspected conditions (not mental disorders or infectious disease) (6 sources) Abnormal findings on diagnostic imaging of limbs; Translations: [Other nonspecific (abnormal) findings on radiological and other examinations of body structure] Resolved: 09-04-2021 Episodic Otitis media and related conditions (12 sources) Acute secretory otitis media; Translations: [Other acute nonsuppurative otitis media, left ear] Onset: 09-27-2014 Episodic Pneumonia (except that caused by tuberculosis or sexually transmitted disease) (4 sources) Pneumonia; Translations: [Pneumonia, unspecified organism] Onset: 01-14-2019 Episodic Poisoning by nonmedicinal substances (4 sources) Toxic effect of venom of bees, accidental (unintentional), initial encounter; Translations: [TOXIC EFF VENOM BEES ACC INIT ENC] Onset: 07-22-2022 Episodic Residual codes; unclassified (5 sources) History of clinical finding in subject; Translations: [Personal history of other specified diseases] Resolved: 09-04-2021 Episodic Residual codes; unclassified (4 sources) Insomnia; Translations: [Insomnia, unspecified] Onset: 01-04-2019 Episodic Residual codes; unclassified (4 sources) Edema; Translations: [Edema] Onset: 04-20-2018 Episodic Syncope (4 sources) Syncope and collapse; Translations: [Syncope and collapse] Onset: 03-12-2018 Episodic Unclassified (3 sources) Low back pain, unspecified back pain laterality, unspecified chronicity, unspecified whether sciatica present M54.50 Unclassified (1 source) CONTACT W/AND (SUSP) EXPOS COVID-19; Translations: [CONTACT W/AND (SUSP) EXPOS COVID-19] Onset: 07-24-2022 Unclassified (1 source) Onset: 12-09-2023 12-09-2023 Unclassified (1 source) Supraventricular tachycardia, unspecified; Translations: [Supraventricular tachycardia, unspecified] Onset: 12-09-2023 Results Test Name Value Interpretation Reference Range Facility XR hip LT min 2V(w/wo pelvis )*on 01-08-2023 XR hip LT min 2V(w/wo pelvis)* [facility] Main [place] [address] [place], [place] [id number] XRay Report Signed Patient: Adriana Dinero I MR#: [id number] : 1955 Acct:[id number] Age/Sex: 67 / F ADM Date: 01/08/23 Loc: [facility] [place] Room: Type: [place] [facility] Attending Dr: Samuel Chatman II, MD Copies to: Samuel Chatman MD Ordering Provider: Samuel Chatman MD Date of Service: 01/08/23 XR/XR hip LT min 2V(w/wo pelvis)*: Left hip pain LEFT HIP - 2 views: CLINICAL HISTORY: Left hip pain for months. COMPARISON: Hip series 11/22/2022 FINDINGS: Mild degenerative changes of both hips without acute bony process. XR/XR hip LT min 2V(w/wo pelvis)* IMPRESSION: MILD DEGENERATIVE CHANGES OF BOTH HIPS WITHOUT ACUTE BONY PROCESS.. Impression dictated by: Montana Pop Jr., D.O.01/08/2023 1:22 PM Dictation Location: [place] [address] Transcribed By: [facility] 01/08/23 1322 Dictated By: Montana Pop Jr, DO 01/08/23 1321 Signed By: 01/08/23 1322 Normal [facility] XR hip LT min 2V(w/wo pelvis)* [facility] [employer] Other XR hip LT min 2V(w/wo pelvis)* [facility] Main [facility] [employer] Other XR hip LT min 2V(w/wo pelvis)* [address] [place] [address] [employer] Other XR hip LT min 2V(w/wo pelvis)* [place] [address] [facility] [employer] Other XR hip LT min 2V(w/wo pelvis)* XRay Report [employer] [facility] [employer] Other XR hip LT min 2V(w/wo pelvis)* Signed [employer] Other XR hip LT min 2V(w/wo pelvis)* Patient: Adriana Dinero I MR#: [id number] [employer] Other XR hip LT min 2V(w/wo pelvis)* 056 [employer] Other XR hip LT min 2V(w/wo pelvis)* : 1955 Acct:[id number] [employer] Other XR hip LT min 2V(w/wo pelvis)* Age/Sex: 67 / F ADM Date: 01/08/23 [employer] Other XR hip LT min 2V(w/wo pelvis)* Loc: [facility] Room: Type: [facility] [employer] Other XR hip LT min 2V(w/wo pelvis)* Attending Dr: Samuel Chatman II, MD [employer] Other XR hip LT min 2V(w/wo pelvis)* Copies to: Samuel Chatman MD [employer] Other XR hip LT min 2V(w/wo pelvis)* Ordering Provider: Samuel Chatman MD [employer] Other XR hip LT min 2V(w/wo pelvis)* Date of Service: 01/08/23 [employer] Other XR hip LT min 2V(w/wo pelvis)* XR/XR hip LT min 2V(w/wo pelvis)*: Left hip pain [employer] Other XR hip LT min 2V(w/wo pelvis)* LEFT HIP - 2 views: [employer] Other XR hip LT min 2V(w/wo pelvis)* CLINICAL HISTORY: Left hip pain for months. [employer] Other XR hip LT min 2V(w/wo pelvis)* COMPARISON: Hip series 11/22/2022 [employer] Other XR hip LT min 2V(w/wo pelvis)* FINDINGS: Mild degenerative changes of both hips without acute bony process. [employer] Other XR hip LT min 2V(w/wo pelvis)* XR/XR hip LT min 2V(w/wo pelvis)* [employer] Other XR hip LT min 2V(w/wo pelvis)* IMPRESSION: [employer] Other XR hip LT min 2V(w/wo pelvis)* MILD DEGENERATIVE CHANGES OF BOTH HIPS WITHOUT ACUTE BONY PROCESS.. [employer] Other XR hip LT min 2V(w/wo pelvis)* Impression dictated by: Montana Pop Jr., D.OOdessa01/08/2023 1:22 PM [employer] Other XR hip LT min 2V(w/wo pelvis)* Dictation Location: [place] [address] [employer] Other XR hip LT min 2V(w/wo pelvis)* Transcribed By: VALERIE 01/08/23 [facility] [employer] Other XR hip LT min 2V(w/wo pelvis)* Dictated By: Montana Pop Jr, DO 01/08/23 [facility] [employer] Other XR hip LT min 2V(w/wo pelvis)* Signed By: [employer] Other XR hip LT min 2V(w/wo pelvis)* 01/08/23 [facility] [employer] Other Office Visit (Cardiology)on 12-09-2022 Follow-up visit Diagnoses/Problems Assessed Supraventricular tachycardia by ECG (427.0) (I47.1) Hyperlipidemia (272.4) (E78.5) Palpitations (785.1) (R00.2) Dyspnea (786.09) (R06.00) Former smoker (V15.82) (Z87.891) quit 1987 Morbid obesity with BMI of 40.0-44.9, adult (278.01,V85.41) (E66.01,Z68.41) At risk for falls (V15.88) (Z91.81) Orders Morbid obesity with BMI of 40.0-44.9, adult Healthy Weight Tips; Status:Complete - Retrospective Authorization; Done: 09Dec2022 Some eating tips that can help you lose weight.; Status:Complete - Retrospective Authorization; Done: 09Dec2022 SocHx: Former smoker Tobacco Use Screening; Status:Complete; Done: 09Dec2022 Patient Instructions Please bring all medicines, vitamins, and herbal supplements with you when you come to the office. Prescriptions will not be filled unless you are compliant with your follow up appointments or have a follow up appointment scheduled as per instruction of your physician. Refills should be requested at the time of your visit. FALL PREVENTION EDUCATION GIVEN Follow up in 1 year. Chief Complaint ADRIANA DINERO is being seen for an annual follow-up of. Patient is in the office for follow-up for the problems noted below. She had a fall last night and education was provided for prevention of future falls. The problem is her ambulation difficulties using the walker and her muscular disease and neuropathy. Cardiac reeder she has had no further cardiac arrhythmias on atenolol. Review of system essentially unremarkable her weight has dropped several pounds from last visit which is encouraging. Her lab data from recent testing were reviewed and presently no need for change in her medication was felt to be necessary. She asked for referral to rheumatology for muscular disease and provided the patient with 2 local contact person in town. ASSESSMENT AND PLAN: 1. Supraventricular tachycardia, on beta-anahi therapy using atenolol, well tolerated, no recurrences. 2. August 2019 nuclear stress test normal, July 2019 echocardiogram normal 3. Chronic lower extremity pain and numbness limiting daily activities to large extent 4?significant obesity, the patient's orthopedic problems gets in the way of weight loss. 5?patient is at risk for falls, education was provided to prevent future falls. Annual follow-up will be scheduled Iban Torrez MD, [facility] Surgical History Problems History of Back surgery History of Cholecystectomy History of Hysterectomy Past Medical History Problems History of Abnormal ultrasound of lower extremity (793.99) (R93.6) Resolved Date: 04 Sep 2021 History of edema (V13.89) (Z87.898) Resolved Date: 04 Sep 2021 Current Meds Medication NameInstruction Atenolol 50 MG Oral TabletTAKE 1 TABLET BY MOUTH EVERY MORNING AND 1/2 TABLET EVERY EVENING Fish Oil 1200 MG Oral CapsuleTAKE 1 CAPSULE Daily HYDROcodone-Acetamino phen 5-325 MG Oral Tablet Xanax 1 MG Oral Tablet1 tablet 3 times daily and then 2 1/2 tablet at bed Patient did not bring medication list or bottles. Updated verbally with patient Allergies Medication sulfa Adverse Reaction; Rash; Swelling; Recorded By: Traci Sequeira; 07/25/2021 1:47:03 PM Social History Problems Daily caffeine consumption Coffee 1 cup daily Former smoker (V15.82) (Z87.891) quit 1987 No alcohol use No illicit drug use Review of Systems Constitutional: not feeling tired. Cardiovascular: chest pain and palpitations, but no intermittent leg claudication and as noted in HPI. Respiratory: shortness of breath, but no cough. Gastrointestinal: no change in bowel habits and no blood in stools. Integumentary: no skin rashes. Neurological: dizziness, but no seizures and no frequent falls. All other systems have been reviewed and are negative for complaint. Vitals Vital Signs Recorded: 09Dec2022 01:25PM Heart Rate78, L Radial Vrvgtktm426, LUE, Sitting Nqqdlznfx57, LUE, Sitting Height5 ft 6 in Kailve718 lb BMI Hfjybuihtg51.03 kg/m2 BSA Calculated2.19 Tobacco Useb) No PHQ-2 Patient Declined/Screening not indicatedYes Falls Screening (Age 18+)b) One or more falls in the last year Physical Exam Constitutional: alert and in no acute distress. Neck: neck is supple, symmetric, trachea midline, no masses and no thyromegaly . Pulmonary: no increased work of breathing or signs of respiratory distress and lungs clear to auscultation. Cardiovascular: carotid pulses 2+ bilaterally with no bruit , JVP was normal, no thrills , regular rhythm, normal S1 and S2, no murmurs , pedal pulses 2+ bilaterally and no edema . Abdomen: abdomen non-tender, no masses and no hepatomegaly . Skin: skin warm and dry, normal skin turgor . Psychiatric judgment and insight is normal and oriented to person, place and time . Signatures Electronically signed by : Iban Torrez MD; Dec 09 2022 2:09PM EST (Author) Normal [employer] Tobacco Screening.on 023 Fall risk assessment b) One or more falls in the last year [facility] 250 DO Work Phone: Tobacco use status [facility] b) No [facility] 250 DO Work Phone: Tobacco Screening. Yes [facility] 250 DO Work Phone: XR hip BI w [id number] 11-22-19 XR hip BI w PEL1V [facility] Main [address] [address] XRay Report Signed Patient: Adriana Dinero I MR#: [id number] [id number] : 1955 Acct:[id number] Age/Sex: 67 / F ADM Date: 11/22/22 Loc: XD Room: Type: [facility] Attending Dr: Leeann Quintana Copies to: Leeann Quintana Ordering Provider: Leeann Quintana Date of Service: 11/22/22 XR/XR hip BI w PEL1V: M54.50 ADULT PELVIS 2 VIEWS WITH BILATERAL HIPS - 2 views each CLINICAL HISTORY: Bilateral leg pain with numbness. COMPARISON: None FINDINGS: Mild degenerative changes of the left hip without acute bony process. Right hip demonstrates minimal degenerative change. Degenerative changes are noted involving the visualized lower lumbar spine, SI joints and pubic symphysis. XR/XR hip BI w PEL1V IMPRESSION: MILD DEGENERATIVE CHANGES OF THE LEFT HIP. MINIMAL DEGENERATIVE CHANGES RIGHT HIP. NO ACUTE BONY PROCESS. Impression dictated by: Montana Pop Jr., D.O.11/22/2022 1:12 PM Dictation Location: [place] [address] Transcribed By: [facility] 11/22/22 1312 Dictated By: Montana Pop Jr, DO 11/22/22 1311 Signed By: 11/22/22 1312 Normal [facility] XR lumbar spine AP/LAT/FLX/E XTon 11-22-2022 XR lumbar spine AP/LAT/FLX/EXT [facility] Main [address] [address] XRay Report Signed Patient: Adriana Dinero I MR#: [id number] [id number] : 1955 Acct:[id number] Age/Sex: 67 / F ADM Date: 11/22/22 Loc: XD Room: Type: [facility] Attending Dr: Leeann Quintana Copies to: Leeann Quintana Ordering Provider: Leeann Quintana Date of Service: 11/22/22 XR/XR lumbar spine AP/LAT/FLX/EXT: M54.50 Lumbar spine 4 views. Reason for exam: Bilateral leg pain with numbness, multiple falls. COMPARISON: Lumbar spine 11/02/2018. FINDINGS: Posterior hardware fixation of L2-L4 without radiographic complication. No pathological motion is seen. Vertebral body heights appear maintained. Moderate disc space narrowing at L1-L2. Facet joint degenerative change. XR/XR lumbar spine AP/LAT/FLX/EXT IMPRESSION: No evidence of hardware complication. Moderate disc space narrowing at L1-L2. Impression dictated by: Montana Pop Jr., D.O.11/22/2022 1:11 PM Dictation Location: [place] [address] Transcribed By: [facility] 11/22/22 1311 Dictated By: Montana Pop Jr DO 11/22/22 1309 Signed By: 11/22/22 1311 Normal [facility] CREATININEon 10-04-2022 Creatinine [Mass/Vol] 0.75 mg/dL Normal 0.55-1.02 [facility] Comment on above: Performed By: #### C CARLOS #### [facility] [address] [place] [address] [address] Henrietta Zavala EGFR-AF SIERRA LEONEAN >60 Normal >=60 [facility] Comment on above: Performed By: #### C CARLOS #### [facility] [address] [place] [address] [address] Henrietta Zavala EGFR-NON AF SIERRA LEONEAN >60 Normal >=60 [facility] Comment on above: Performed By: #### C CARLOS #### [facility] [address] [place] [address] Dr. Henrietta Zavala MRI LSPINE WO W CONon 2021 MRI LSPINE WO W CON EXAMINATION: MRI LSPINE WO W CON HISTORY: Lumbar radiculopathy ; chronic lumbar pain, difficulty walking, left leg weakness COMPARISON: XR L-spine 11/02/2018 TECHNIQUE: A variety of imaging planes and parameters were utilized for visualization of suspected pathology. FINDINGS: For the purposes of numbering, sagittal T2 image # 8 extends from the T11 vertebral body superiorly to the S3 level inferiorly. PARASPINAL AREA: Normal with no visible mass. BONES: Posterior mechanical fusion of L2-L3-4 via bilateral pedicle screws and rods. Posterior decompression L2-L3-4. No appreciable fracture or bone lesion. Slight left convex curvature, otherwise normal height and alignment. CORD/CAUDA EQUINA: Normal caliber, contour, and signal intensity. DISC LEVELS: 12-L1: No significant disc/facet abnormality, spinal stenosis, or foraminal stenosis. L1-L2: Moderate left foramen narrowing secondary to broad-based disc protrusion into the foramen. Disc desiccation mild disc at reduction. L2-L3: Mild left foramen narrowing. Posterior mechanical fusion, posterior decompression, and intervertebral disc spacer with moderate-marked disc space narrowing without significant disc bulging. L3-L4: Posterior mechanical fusion and posterior decompression. No significant central canal or foramen narrowing. Intervertebral disc spacer with mild disc height reduction without disc bulging. L4-L5: Mild foramen narrowing bilaterally without significant central canal narrowing. Intervertebral disc spacer without disc height reduction or significant bulging. Moderate degenerative facet arthropathy bilaterally. L5-S1: No significant central canal or foramen narrowing. Marked right, moderate left degenerative facet arthropathy. No significant disc height reduction or disc bulging. IMPRESSION: 1. L2-L3-4 posterior mechanical fusion and posterior decompression. 2. L1-L2 moderate left foramen narrowing secondary to left foraminal broad-based disc protrusion which may account for patient's symptoms. 3. Intervertebral disc spacers L2-L3, L3-L4, L4-L5. 4. Additional degenerative changes, but no specific findings other than as described in #2 to account for patient's symptoms. Electronically authenticated by: SHALA OMER Date: 2022-10-04 11:19 Normal [facility] Covid-19 PCR (CVDTBH)on 07-11 SARS-CoV-2 (COVID-19) RNA DAVID+probe Ql (Unsp spec) Not detected Normal NOT DETECTED [facility] Comment on above: Result Comment: This test is not yet approved or cleared by the [place] FDA. When there are no FDA-approved or cleared tests available, and other criteria are met, FDA can make tests available under an emergency access mechanism called an Emergency Use Authorization (EUA). The EUA for this test is supported by the [place] of Health and Human Service's (HHS's) declaration that circumstances exist to justify the emergency use of in vitro diagnostics for the detection and/or diagnosis of the virus that causes COVID-19. This EUA will remain in effect (meaning this test can be used) for the duration of the COVID-19 declaration justifying emergency of IVDs, unless it is terminated or revoked by FDA (after which the test may no longer be used). When diagnostic testing is negative, the possibility of a false negative should be considered in the context of a patient's recent exposures and the presence of clinical signs and symptoms consistent with SARS-CoV-2. Performed By: #### C [facility] #### [facility] [address] [place] [address] Dr. Henrietta Zavala XR HIPS JI 3_4V WO PELVISon 04-15-2022 XR HIPS JI 3_4V WO PELVIS EXAMINATION: XR HIPS JI 3_4V WO PELVIS HISTORY: Pain of left hip joint COMPARISON: No relevant comparison available. FINDINGS: RIGHT FINDINGS: BONES: No acute fracture or dislocation. Degenerative changes with joint space narrowing and minimal marginal osteophyte formation SOFT TISSUES: Negative. No visible soft tissue swelling. OTHER: Negative. LEFT FINDINGS: BONES: No acute fracture or dislocation. Degenerative changes with joint space narrowing and minimal marginal osteophyte formation SOFT TISSUES: Negative. No visible soft tissue swelling. OTHER: Negative. IMPRESSION: RIGHT CONCLUSION: No acute abnormality LEFT CONCLUSION: No acute abnormality Electronically authenticated by: CAITLYN CABRERA Date: 2022-04-15 07:00 Normal [facility] XR TSPINE 3 VIEWSon 04-15-20 XR TSPINE 3 VIEWS EXAMINATION: XR TSPINE 3 VIEWS HISTORY: Pain in thoracic spine COMPARISON: No relevant comparison available. FINDINGS: BONES: Normal alignment with no acute fracture or spondylolisthesis. Mild diffuse degenerative spondylosis and facet osteoarthropathy. Posterior fusion lumbar spine DISC SPACES: mild narrowing with endplate sclerosis PARASPINOUS: Negative. No paraspinous abnormality is seen. OTHER: Negative. IMPRESSION: Mild diffuse degenerative changes Electronically authenticated by: CAITLYN CABRERA Date: 2022-04-15 07:03 Normal [facility] CBC AUTO DIFFon 04-12-2022 BASO # 0.1 103/ul Normal 0.0-0.1 [facility] Comment on above: Performed By: #### C BC #### [facility] [address] [place] [address] Dr. Henrietta Zavala Basophils/100 WBC (Bld) 0.4 % Normal 0.2-2.0 [facility] Comment on above: Performed By: #### C BC #### [facility] [address] [place] [address] Dr. Henrietta Zavala EO # 0.1 103/ul Normal 0.0-0.7 [facility] Comment on above: Performed By: #### C BC #### [facility] [address] [place] [address] Dr. Henrietta Zavala Eosinophils/100 WBC (Bld) 0.4 % Critically low 0.9-7.0 [facility] Comment on above: Performed By: #### C BC #### [facility] [address] [place] [address] Dr. Henrietta Zavala Erythrocyte distribution width (RBC) [Ratio] 14.1 % Normal 11.0-15.0 [facility] Comment on above: Performed By: #### C BC #### [facility] [address] [place] [address] Dr. Henrietta Zavala Hematocrit (Bld) [Volume fraction] 44.9 % Normal 36.0-48.0 [facility] Comment on above: Performed By: #### C BC #### [facility] [address] [place] [address] Dr. Henrietta Zavala Hemoglobin (Bld) [Mass/Vol] 14.2 g/dL Normal 12.0-16.0 [facility] Comment on above: Performed By: #### C BC #### [facility] [address] [place] [address] Dr. Henrietta Zavala IG # 0.06 10e3/ul Critically high 0.00-0.03 [facility] Comment on above: Performed By: #### C BC #### [facility] [address] [place] [address] Dr. Henrietta Zavala IG % 0.5 % Normal 0.0-0.5 [facility] Comment on above: Performed By: #### C BC #### [facility] [address] [place] [address] Dr. Henrietta Zavala LYMPH # 2.2 103/ul Normal 1.2-3.8 [facility] Comment on above: Performed By: #### C BC #### [facility] [address] [place] [address] Dr. Henrietta Zavala Lymphocytes/100 WBC (Bld) 19.4 % Critically low 20.5-60.0 [facility] Comment on above: Performed By: #### C BC #### [facility] [address] [place] [address] Dr. Henrietta Zavala MANUAL DIFF REQ NO Normal [facility] Comment on above: Performed By: #### C BC #### [facility] [address] [place] [address] Dr. Henrietta Zavala MCH (RBC) [Entitic mass] 27.5 pg Normal 26.7-34.0 [facility] Comment on above: Performed By: #### C BC #### [facility] [address] [place] [address] Dr. Henrietta Zavala MCHC (RBC) [Mass/Vol] 31.6 g/dL Normal 29.9-35.2 [facility] Comment on above: Performed By: #### C BC #### [facility] [address] [place] [address] Dr. Henrietta Zavala MCV (RBC) [Entitic vol] 86.8 fL Normal 81.0-99.0 [facility] Comment on above: Performed By: #### C BC #### [facility] [address] [place] [address] Dr. Henrietta Zavala MONO # 0.9 103/ul Critically high 0.3-0.8 [facility] Comment on above: Performed By: #### C BC #### [facility] [address] [place] [address] [address] Henrietta Zavala Monocytes/100 WBC (Bld) 7.9 % Normal 1.7-12.0 [facility] Comment on above: Performed By: #### C BC #### [facility] [address] [place] [address] Dr. Henrietta Zavala NEUT # 8.1 103/ul Critically high 1.4-6.5 [facility] Comment on above: Performed By: #### C BC #### [facility] [address] [place] [address] Dr. Henrietta Zavala Neutrophils/100 WBC (Bld) 71.4 % Normal 43.0-75.0 [facility] Comment on above: Performed By: #### C BC #### [facility] [address] [place] [address] Dr. Henrietta Zavala Platelet mean volume (Bld) [Entitic vol] 9.7 fL Normal 9.5-13.5 [facility] Comment on above: Performed By: #### C BC #### [facility] [address] [place] [address] Dr. Henrietta Zavala PLT 284 103/ul Normal 150-450 [facility] Comment on above: Performed By: #### C BC #### [facility] [address] [place] [address] Dr. Henrietta Zavala RBC 5.17 106/ul Normal 4.20-5.40 [facility] Comment on above: Performed By: #### C BC #### [facility] [address] [place] [address] Dr. Henrietta Zavala WBC 11.3 103/ul Critically high 4.0-11.0 [facility] Comment on above: Performed By: #### C BC #### [facility] [address] [place] [address] Dr. Henrietta Zavala LIPID PROFILEon 04-12-2022 CHOL-HDL RATIO NORM SEE BELOW Normal [facility] Comment on above: Result Comment: 3.3 - 4.4 LOW RISK 4.4 - 7.1 AVERAGE RISK 7.1 - 11.0 MODERATE RISK >11.0 HIGH RISK Performed By: #### C MP, LIPID #### [facility] [address] [address] [address] Henrietta Zavala Cholesterol [Mass/Vol] 235 mg/dL Critically high <=200 [facility] Comment on above: Performed By: #### C MP, LIPID #### [facility] [address] [address] [address] Henrietta Zavala Cholesterol in HDL [Mass/Vol] 47 mg/dL Normal 40-60 [facility] Comment on above: Performed By: #### C MP, LIPID #### [facility] [address] [address] [address] Henrietta Zavala Cholesterol in LDL [Mass/Vol] 160.8 mg/dL Normal [facility] Comment on above: Performed By: #### C MP, LIPID #### [facility] [address] [place] [address] Dr. Henrietta Zavala Cholesterol.total/C holesterol in HDL [Mass ratio] 5.0 {ratio} Normal [facility] Comment on above: Performed By: #### C MP, LIPID #### [facility] [address] [address] [address] Henrietta Zavala HDL NORMAL > or = 60 mg/dl - LO W CARDIOVASCULAR RISK <40 mg/dl - HIGH CARDIOVASCULAR RISK Normal [facility] Comment on above: Performed By: #### C MP, LIPID #### [facility] [address] [address] [address] Henrietta Zavala LDL CALC NORMAL SEE BELOW Normal [facility] Comment on above: Result Comment: <100 mg/dl OPTIMAL 100 - 129 mg/dl NEAR OR ABOVE OPTIMAL 130 - 159 mg/dl BORDERLINE HIGH 160 - 189 mg/dl HIGH >190 mg/dl VERY HIGH Performed By: #### C MP, LIPID #### [facility] [address] [address] [address] Henrietta Zavala Triglyceride [Mass/Vol] 136 mg/dL Normal <=150 [facility] Comment on above: Performed By: #### C MP, LIPID #### [facility] [address] [address] [address] Henrietta Zavala VLDL CALC 27.2 mg/dL Normal [facility] Comment on above: Performed By: #### C MP, LIPID #### [facility] [address] [place] [address] Dr. Henrietta Zavala PROF 14(COMP METB)on 022 Albumin [Mass/Vol] 3.2 g/dL Critically low 3.4-5.0 Th e [facility] Comment on above: Performed By: #### C MP, LIPID #### [facility] [address] [place] [address] Dr. Henrietta Zavala Albumin/Globulin [Mass ratio] 0.8 {ratio} Normal [facility] Comment on above: Performed By: #### C MP, LIPID #### [facility] [address] [place] [address] Dr. Henrietta Zavala ALP [Catalytic activity/Vol] 127 U/L Critically high 46-116 [facility] Comment on above: Performed By: #### C MP, LIPID #### [facility] [address] [place] [address] Dr. Henrietta Zavala ALT [Catalytic activity/Vol] 55 U/L Normal 14-59 [facility] Comment on above: Performed By: #### C MP, LIPID #### [facility] [address] [place] [address] Dr. Henrietta Zavala Anion gap [Moles/Vol] 13.6 mmol/L Normal [facility] Comment on above: Performed By: #### C MP, LIPID #### [facility] [address] [place] [address] Dr. Henrietta Zavala AST [Catalytic activity/Vol] 24 U/L Normal 15-37 [facility] Comment on above: Performed By: #### C MP, LIPID #### [facility] [address] [place] [address] Dr. Henrietta Zavala Bilirubin [Mass/Vol] 0.3 mg/dL Normal 0.2-1.0 [facility] Comment on above: Performed By: #### C MP, LIPID #### [facility] [address] [place] [address] Dr. Henrietta Zavala Calcium [Mass/Vol] 8.8 mg/dL Normal 8.5-10.1 [facility] Comment on above: Performed By: #### C MP, LIPID #### [facility] [address] [address] [address] Henrietta Zavala Chloride [Moles/Vol] 107 mmol/L Normal 98-107 [facility] Comment on above: Performed By: #### C MP, LIPID #### [facility] [address] [address] [address] Henrietta Zavala CO2 [Moles/Vol] 25.6 mmol/L Normal 21.0-32.0 [facility] Comment on above: Performed By: #### C MP, LIPID #### [facility] [address] [place] [address] Dr. Henrietta Zavala Creatinine [Mass/Vol] 0.77 mg/dL Normal 0.55-1.02 [facility] Comment on above: Performed By: #### C MP, LIPID #### [facility] [address] [place] [address] Dr. Henrietta Zavala EGFR-AF SIERRA LEONEAN >60 Normal >=60 [facility] Comment on above: Performed By: #### C MP, LIPID #### [facility] [address] [place] [address] Dr. Henrietta Zavala EGFR-NON AF SIERRA LEONEAN >60 Normal >=60 [facility] Comment on above: Performed By: #### C MP, LIPID #### [facility] [address] [place] [address] Dr. Henrietta Zavala Globulin (S) [Mass/Vol] 3.8 g/dL Normal [facility] Comment on above: Performed By: #### C MP, LIPID #### [facility] [address] [place] [address] Dr. Henrietta Zavala Glucose [Mass/Vol] 90 mg/dL Normal 74-106 [facility] Comment on above: Performed By: #### C MP, LIPID #### [facility] [address] [place] [address] Dr. Henrietta Zavala Potassium [Moles/Vol] 4.2 mmol/L Normal 3.5-5.1 [facility] Comment on above: Performed By: #### C MP, LIPID #### [facility] [address] [address] [address] Henrietta Zavala Protein [Mass/Vol] 7.0 g/dL Normal 6.4-8.2 [facility] Comment on above: Performed By: #### C MP, LIPID #### [facility] [address] [address] [address] Henrietta Zavala Sodium [Moles/Vol] 142 mmol/L Normal 136-145 [facility] Comment on above: Performed By: #### C MP, LIPID #### [facility] [address] [place] [address] Dr. Henrietta Zavala Urea nitrogen [Mass/Vol] 13.0 mg/dL Normal 7.0-18.0 [facility] Comment on above: Performed By: #### C MP, LIPID #### [facility] [address] [place] [address] Dr. Henrietta Zavala Urea nitrogen/Creatinine [Mass ratio] 16.9 mg/mg Normal [facility] Comment on above: Performed By: #### C MP, LIPID #### [facility] [address] [place] [address] Dr. Henrietta Zavala Tobacco Screening.on 021 Fall risk assessment a) No falls within the last year [facility] 250 DO Work Phone: Tobacco use status CP b) No [facility]Sherman 250 DO Work Phone: KNEE LEFT 3 VWSon 03-30-2021 KNEE LEFT 3 S [facility] Department of Radiology [address] [place] [address] Patient Name: ADRIANA RAYGOZA : 1955 Sex: F Age: Race: White Pt. Location: 84 Patient Status: Ordered Date: 03/30/2021 9:00:00 AM Completed Date: 03/30/2021 09:07 AM Requesting Provider: RAMANDEEP PATEL Attending Provider: Report Copy To: Signs & Symptoms: M25.562 Pain in left knee I10 History: Deb Comments: , , , Ordering Provider - RAMANDEEP PATEL MD , Exam: KNEE LEFT 3 [facility] KNEE LEFT 3 [facility] 03/30/2021 9:07 AM CLINICAL INDICATIONS: M25.562 Pain in left knee I10 TECHNOLOGIST COMMENTS: Patient states bilateral knee pain x years Right worse than left QUESTION FOR THE RADIOLOGIST: , , , Ordering Provider - RAMANDEEP PATEL MD , PROTOCOL: AP,Lateral and Tangential views were obtained. COMPARISON: Contralateral side FINDINGS: Osteopenia. Small joint effusion. Tricompartmental osteoarthritic changes. Large spurs. Loose bodies may be present. No acute findings. IMPRESSION: Tricompartment but predominantly weightbearing osteoarthritic changes but no acute findings. Electronically signed: Jesse Lazaro. Transcribed by: [email or web address], User Resident: Electronically Signed by: JESSE LAZARO @ 03/30/2021 11:00 AM Normal [facility] Comment on above: Order Comment: , , = ========= , Ordering Provider - RAMANDEEP PATEL MD , KNEE RIGHT 3 [facility] KNEE RIGHT 3 [facility] Department of Radiology [address] [place] [id number] Patient Name: ADRIANA RAYGOZA : 1955 Sex: F Age: Race: White Pt. Location: Patient Status: O Ordered Date: 03/30/2021 9:05:00 AM Completed Date: 03/30/2021 09:07 AM Requesting Provider: RAMANDEEP PATEL Attending Provider: RAMANDEEP PATEL Report Copy To: Signs & Symptoms: M25.569 Pain in unspecified knee I10 History: Deb Comments: Evaluate Exam: KNEE RIGHT 3 [facility] CLINICAL INFORMATION: Chronic right knee pain. TECHNIQUE: Right knee, 3 views. COMPARISON: None. FINDINGS Tricompartmental degenerative changes are present, most severe at the left knee where there is near complete loss of joint space. No acute fractures, joint effusion, or destructive osseous lesions. 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 Approved by:Shala Gupta03/30/2021 10:24 AM. I, Jesse Lazaro,have reviewed the images and reports Electronically signed: Jesse Lazaro. Transcribed by: [email or web address], User Resident: SHALA EATON Electronically Signed by: JESSE LAZARO @ 03/30/2021 03:52 PM I personally read this/these film(s) with this resident Normal [facility] Comment on above: Order Comment: Evalu ate MRI LUMBAR SP W & WO CONTRAS Ton 10-11-2020 MRI LUMBAR SP W & WO CONTRAST STUDY: MRI LUMBAR SP W WO CONTRAST; 10/11/2020 11:35 am INDICATION: POST LAMINECTOMY SYNDROME. COMPARISON: None. ACCESSION NUMBER(S): [id number] ORDERING CLINICIAN: Denis Donohue TECHNIQUE: The lumbar spine was studied in the sagittal and axial planes utilizing T1 and T2 weighted images both before and following intravenous injection of 7.5 cc Gadavist FINDINGS: * Status post laminectomy from L2 through L4. Pedicle screw and plate fixation at L2/L3 and L3/L4. Interbody fusion at L2/L3, L3/L4 and L4/L5. *Normal alignment and vertebral body height *Fluid collection with peripheral enhancement dorsal to the L3 vertebral body measures 1.5 cm x 2 cm by 4.5 cm in size. Minimal peripheral enhancement is a nonspecific finding. *No associated abnormal marrow signal to suggest osteomyelitis *No residual canal stenosis or foraminal narrowing IMPRESSION: * Postoperative changes as described *Fluid collection within the laminectomy site is a nonspecific finding consistent seroma. Infected fluid not excluded. *No evidence of discitis or osteomyelitis. * THIS EXAMINATION WAS INTERPRETED AT [facility] Normal [facility] LUMB SP COMP W FLEX/EXT 6 VW Son 09-12-2020 LUMB SP COMP W FLEX/EXT 6 VWS STUDY: LUMB SP COMP W FLEX/EXT 6 VWS ; ; 09/12/2020 8:45 am INDICATION: PAIN. COMPARISON: None. ACCESSION NUMBER(S): [id number] ORDERING CLINICIAN: Denis Donohue FINDINGS: Status post posterior lumbar spine fusion at L2 through L4 with decompression laminectomy at the same level. The vertebral alignment is normal. The vertebral body heights are maintained. Mild decrease in the intervertebral disc space at L4-L5 and L5-S1. Mild neural foraminal stenosis at L5-S1 level. Moderate facet arthropathy at the same levels. No evidence of instability. IMPRESSION: Postsurgical changes of posterior lumbar spine fusion at L2 through L4 with decompression laminectomy. No evidence of instability. Mild degenerative changes at L4-L5 and L5-S1. Mild neural foraminal stenosis at L5-S1 level. Normal [facility] Ambulatory Clinical Summaryo n 05-22-2020 Ambulatory Clinical Summary {[id number]}CD:[id number] [facility] Coding Summary.on 05-10-2020 Coding Summary. CODING DATE: 05/10/2020 [facility] STATUS: Home (Routine DC) PAYOR: Commercial Insurance ADMIT DX: REASON FOR VISIT DX: Z01.812 Encounter for preprocedural laboratory examination FINAL DX: PRINCIPAL: Z01.812 Encounter for preprocedural laboratory examination SECONDARY: Z11.59 Encounter for screening for other viral diseases PYMT PROC APC STAT DESCRIPTION DOCTOR NAME DATE NOTE: The code number assigned matches the documented diagnosis and / or procedure in the patient's chart. However, the narrative phrase printed from the coding software may appear abbreviated, or result in slightly different terminology. Coded By: Reyna Jasmine CphT Date Saved: 05/10/2020 04:39 pm [facility] Coding Summary.on 05-08-2020 Coding Summary. CODING DATE: 05/08/2020 FINAL [facility] STATUS: Home (Routine DC) PAYOR: Commercial Insurance ADMIT DX: REASON FOR VISIT DX: R11.2 Nausea with vomiting, unspecified FINAL DX: PRINCIPAL: R11.2 Nausea with vomiting, unspecified SECONDARY: PYMT PROC APC STAT DESCRIPTION DOCTOR NAME DATE NOTE: The code number assigned matches the documented diagnosis and / or procedure in the patient's chart. However, the narrative phrase printed from the coding software may appear abbreviated, or result in slightly different terminology. Coded By: Reyna Jasmine CphT Date Saved: 05/08/2020 12:00 pm [facility] IntraOperative Documentson 0 05-08-2020 IntraOperative Documents [id number]# 1.00CD:127 [facility] Postoperative Documentson Postoperative Documents [id number]#1 .00CD:127 [facility] Coding Summary.on 05-04-2020 Coding Summary. CODING DATE: 05/04/2020 [facility] STATUS: Home (Routine DC) PAYOR: Commercial Insurance APC DESCRIPTION 5301 Level 1 Upper GI Procedures ADMIT DX: REASON FOR VISIT DX: R10.13 Epigastric pain FINAL DX: PRINCIPAL: K29.50 Unspecified chronic gastritis without bleeding SECONDARY: K25.9 Gastric ulcer, unspecified as acute or chronic, without hemorrhage or perforation R11.2 Nausea with vomiting, unspecified PYMT PROC APC STAT DESCRIPTION DOCTOR NAME DATE [id number] Walter NIEVES MD, Reid 05/01/2020 phagogastroduodenosco py, flexible, transoral; with biopsy, single or multiple [id number] Anesthesia for upper Elliot Tena Jr, DO 05/01/2020 gastrointestinal endoscopic procedures, endoscope introduced proximal to duodenum; not otherwise specified NOTE: The code number assigned matches the documented diagnosis and / or procedure in the patient's chart. However, the narrative phrase printed from the coding software may appear abbreviated, or result in slightly different terminology. Revised Coded By: Samantha Paredes Revised Date Saved: 05/04/2020 03:45 pm Normal [facility] Progress Note-Physicianon Progress Note-Physician Patient: ADRIANA DINERO I Age: 65 years Sex: Female : 1955 Associated Diagnoses: None Author: Elliot Tena Jr, DO Preoperative Information Anesthesia Preop Information NPO 8 HOURS EXCEPT GI PREP AT LEAST 4 HOURS PRIOR TO PROCEDURE Anesthesia history: Patient history: No prior anesthesia problems. Re-evaluation prior to induction: Initial evaluation reviewed: No significant change. Anesthesia results Review of Systems Cardiovascular: Negative. Respiratory: Negative. Health Status Allergies: Allergic Reactions (Selected) Severity Not Documented Sulfa drugs- Rash. Current medications: (Selected) Inpatient Medications Ordered Sodium Chloride 0.9% IV Lala 1000 mL 1,000 mL: 1,000 mL, IV, 20 mL/hr, Routine, Start date 05/01/20 7:12:00 EDT, 50 hour(s), Total volume (mL): 1,000, 2.21, m2 Prescriptions Prescribed Zofran 4 mg Tab: 4 mg = 1 tab(s), Oral, q8hr, # 20 tab(s), Refills(s) 1 omeprazole 40 mg Cap-DR: 40 mg = 1 cap(s), Oral, Daily, # 30 cap(s), Refills(s) 2 Documented Medications Documented alprazolam: Oral, TID, Refills(s) 0, Anxiety atenolol: Oral, BID, Refills(s) 0 hydrocodone: Oral, PRN Pain, Refills(s) 0, Home Medications (5) Active alprazolam , Oral, TID atenolol , Oral, BID hydrocodone , PRN, Oral omeprazole 40 mg Cap-DR 40 mg = 1 cap(s), Oral, Daily Zofran 4 mg Tab 4 mg = 1 tab(s), Oral, q8hr Problem list: No problem items selected or recorded. Histories Past Medical History: No active or resolved past medical history items have been selected or recorded. Social History Social & Psychosocial Habits Tobacco 04/24/2020 Tobacco Use: Never (less than 100 in l . Physical Examination Airway: Mallampati classification: II (soft palate, fauces, uvula visible). Respiratory: Lungs are clear to auscultation. Cardiovascular: Regular rhythm. Neurologic: Alert, Oriented. Plan [place] [employer] Anesthesiologists (ASA) physical status classification: Class II. Anesthetic Preoperative Plan Anesthesia: General. . Anesthetic plan, risks, benefits, and alternatives discussed with the patient and/or family. Communication: face to face with (patient 5 minutes, Patient educated on smoking cesstation). Normal [facility] Comment on above: Result Comment: Elec tronically Signed By: Elliot Tena Jr, DO\.br\Date and Time Signed: 05/03/20 09:34 EDT Main OR Intraoperative Recor don 05-02-2020 Main OR Intraoperative Record IntraOp Document Type FT Summary Primary Physician: Reid NIEVES MD Finalized Date/Time: 05/02/20 13:35:19 Pt. Name: ADRIANA DINERO/Sex: 1955 Female Med Rec #: [id number] Physician: Reid NIEVES MD Financial #: [id number] Pt. Type: O Room/Bed: / Admit/Disch: 05/01/20 07:03:44 - 05/01/20 23:59:59 Institution: Case Times FT Entry 1 Patient Times In Room 05/01/20 08:17:00 Out Room 05/01/20 08:25:00 Procedure Times Start 05/01/20 08:21:00 Stop 06/22/20 08:23:00 Anesthesia Times Start 05/01/20 08:17:00 Stop 05/01/20 08:25:00 Last Modified By: Savannah Chavis RN 05/01/20 08:26:21 General Comments: 05/02/2020 Chart opened to review and send charges Juvencio Andrés VALVERDE Case Attendance FT Entry 1 Entry 2 Entry 3 Case Attendee Elliot Tena Jr, DO, RN, Fior Simms Role Performed Anesthesiologist of Disc Recordist - Primary Scrub - Primary Record Time In 05/01/20 08:17:00 05/01/20 08:17:00 05/01/20 08:17:00 Time Out 05/01/20 08:25:00 05/01/20 08:25:00 05/01/20 08:25:00 Procedure EGD(.) EGD(.) EGD(.) Comments Last Modified By: Palmira RUIZ, Savannah Chavis RN, Savannah Salgado RN 05/01/20 08:26:22 05/01/20 08:26:22 05/01/20 08:26:22 Entry 4 Case Attendee Reid NIEVES MD Role Performed Surgeon - Primary Time In 05/01/20 08:17:00 Time Out 05/01/20 08:25:00 Procedure EGD(.) Comments Last Modified By: Savannah Chavis RN 05/01/20 08:26:22 Perioperative Protocols FT Pre-Care Text: Implements protective measures prior to operative or invasive procedure, confirms identity before the operative or invasive procedure, verifies operative procedure, surgical site, and laterality Entry 1 Procedure(s) EGD(.) Patient Identity Birthday, ID Band Verified (select at Check, Patient least 2): Participation Consents / H and P Anesthesia Consent, Operative Site N/A Verified HandP, Surgery/Procedure Marking Verified Consent Surgical Site No Laterality Verified n/a Verified Procedure Verified Yes Correct Patient Yes Position Verified Availability Equipment, Medication Prep Dry n/a Verified (If Applicable) PreOp Antibiotic No Time Out Elliot Tena Jr, DO, Given Participants Palmira RUIZ, EZEQUIEL Nuñez MD, Maher, Miles, Kirstyn K Time Out Complete 05/01/20 08:20:00 Outcomes Met? Yes Last Modified By: Savannah Chavis RN 05/01/20 08:20:38 Post-Care Text: The patient is free from signs and symptoms of injury caused by extraneous objects Allergy Information FT Pre-Care Text: Verifies allergies Entry 1 Allergies Reviewed? Yes Allergies Reviewed Self/Patient With Outcomes Met? Yes Last Modified By: Savannah Chavis RN 05/01/20 06:56:42 Post-Care Text: The patient received appropriate medication(s) safely administered during the perioperative period Surgical Procedures FT Entry 1 Procedure Description Procedure EGD Modifiers . Surgeon Description EGD with gastric bx Primary Procedure Yes Primary Surgeon Reid NIEVES MD 05/01/20 08:21:00 Stop 05/01/20 08:23:00 Anesthesia Type General Surgical Service Gastroenterology Wound Class 2 - Clean-Contaminated Last Modified By: Savannah Chavis RN 05/01/20 08:23:37 General Case Data FT Pre-Care Text: Classifies surgical wound, implements aseptic technique, initiates traffic control Entry 1 Case Information OR ENDO 1 FT Case Level Level 2 Wound Class 2 - Clean-Contaminated Specialty Gastroenterology ASA Class 2 Preop Diagnosis NAUSEA and VOMITTING Postop Same As Preop No Postop Diagnosis Antral ulcer Outcomes Met? Yes Last Modified By: Savannah Chavis RN 05/01/20 08:22:19 Post-Care Text: The patient is free from signs and symptoms of infection Skin Assessment (Pre Procedure) FT Pre-Care Text: Implements protective measures to prevent skin/ tissue injury due to thermal or mechanical sources Evaluates for signs and symptoms of physical injury to skin and tissue Entry 1 Skin Integrity Dry, Warm Skin Abnormality No Outcomes Met? Yes Last Modified By: Savannah Chavis RN 05/01/20 06:57:04 Post-Care Text: The patient is free from signs and symptoms of injury caused by extraneous objects Patient Positioning FT Pre-Care Text: Identifies physical alterations that require additional precautions for procedure-specific positioning, verifies presence of prosthetics or corrective devices, positions the patient, evaluates the patient for signs and symptoms of injury as a result of positioning Entry 1 Procedure EGD(.) Body Position Lateral, right side up Feet Uncrossed? Yes Left Arm Position Resting at Side Right Arm Position Resting at Side Left Leg Position Extended Right Leg Position Extended Positioning Device Safety Strap, Pillow Under Head Large Press Points Checked Yes By Savannah Chavis RN, Marsh Jr DO, James A Outcomes Met? Yes Last Modified By: Savannah Chavis RN 05/01/20 06:57:18 Post-Care Text: The patient is free from signs and symptoms of injury related to positioning Patient Care Devices FT Pre-Care Text: Implements protective measures to prevent skin/ tissue injury due to thermal or mechanical sources Entry 1 Entry 2 Equipment Type ENDOSCOPY VIDEO MONITOR CHARGE SURGERY SYSTEM[F] [F] Equipment Number [id number] E1 Equipment Setting Outcomes Met? Yes Yes Last Modified By: Savannah Chavis RN, RN, Renee 05/01/20 06:57:30 05/01/20 06:57:30 Post-Care Text: The patient is free from signs and symptoms of injury caused by extraneous objects Transport To OR FT Pre-Care Text: Transports according to individual needs. Evaluates for signs and symptoms of skin and tissue injury as a result of transfer or transport Entry 1 Via Cart By Savannah Chavis RN Safety Precautions Side Rails Up Outcomes Met? Yes Last Modified By: Savannah Chavis RN 05/01/20 06:57:37 Post-Care Text: The patient is free from signs and symptoms of injury related to transfer/transport Departure From OR FT Pre-Care Text: Transports according to individual needs. Evaluates for signs and symptoms of skin and tissue injury as a result of transfer or transport. Entry 1 Via Cart Safety Precautions Side Rails Up PostOp Destination PACU Transported By Savannah Chavis RN Patient Status Stable Skin. Condition Intact, [place], Warm, and Dry Airway Maintenance Oxygen in Use? No Outcomes Met? Yes Last Modified By: Savannah Chavis RN 05/01/20 06:57:50 Post-Care Text: The patient is free from signs and symptoms of injury related to transfer/transport General Comments: Report given to garage laborer. RHRN Medication Administration FT Pre-Care Text: Verifies allergies, administers prescribed medications and solutions, administers prescribed antibiotic therapy and immunizing agents as ordered, evaluates response to medications Administers prescribed medications and solutions Entry 1 Expiration Date Yes Outcomes Met? Yes Verified Last Modified By: Savannah Chavis RN 05/01/20 06:57:59 Post-Care Text: The patient received appropriate medication(s) safely administered during the perioperative period For [place] please see scanned medication reconcilliation form for medications used at the field during the procedure. Cultures and Specimens FT Pre-Care Text: Manages specimen handling and disposition Manages culture specimen collection Entry 1 Cultures Ordered n/a Specimens Ordered Yes Specimen Disposition Designated OR Area Frozen Section Times Outcomes Met? Yes Last Modified By: Savannah Chavis RN 05/01/20 08:22:44 Post-Care Text: The patient is free from signs and symptoms of injury caused by extraneous objects The patient is free from signs and symptoms of infection Case Comments Finalized By: Altagracia Bowen CST Document Signatures Signed By: Savannah Chavis RN 05/01/20 08:26 Altagracia Bowen CST 05/02/20 13:35 [facility] Consenton 05-01-2020 Consent [id number] .00CD:127 [facility] Consent for Treatmenton 04-11 Consent for Treatment [id number] .00CD:127 [facility] Discharge Instructionson Discharge Instructions [id number] .00CD:127 [facility] History and Physicalon 05-01 History and Physical [id number] .00CD:127 [facility] Inpatient Patient Summaryon 05-01-2020 Inpatient Patient Summary [address] [address] [facility] Clinical Discharge Instructions PERSON INFORMATION Name: ADRIANA DINERO I PHYSICIANS Admitting Physician: Ried NIEVES MD Attending Physician: Reid NIEVES MD PCP: TOBY QUINTANA MD Discharge Diagnosis: Antral ulcer Comment: PATIENT EDUCATION INFORMATION Instructions: Medication Leaflets: Follow up: With: Address: When: [facility] [address] [place], [place] [id number] Within 2 weeks Type Location Start [facility] Follow Up [facility] 05/22/2020 2:15 PM 05/22/2020 2:30 PM Confirmed MEDICATION LIST Medications to Continue Taking That Have Changed [facility] [facility] [address] [place] [id number], [phone] START: omeprazole (omeprazole 40 mg Cap-DR) 1 Capsules By Mouth 2 times a day. Refills: 2. Other Medications START: omeprazole (omeprazole 40 mg Cap-DR) 1 Capsules By Mouth every day. Refills: 2. Medications to Continue with No Changes Other Medications alprazolam By Mouth 3 times a day., 1mg TID 2.5mg at bedtime atenolol By Mouth 2 times a day., 25mg in AM 50mg in PM hydrocodone By Mouth as needed Pain. ondansetron (Zofran 4 mg Tab) 1 Tablets By Mouth every 8 hours. Refills: 1. Comment: [facility] IntraOperative Documentson 0 05-01-2020 IntraOperative Documents [id number] .00CD:127 [facility] IntraOperative Documents [id number] .00CD:127 [facility] Main OR PACU I Recordon 04-11 Main OR PACU I Record PACU Phase I Document Type FT Summary Primary Physician: Reid NIEVES MD Finalized Date/Time: 05/01/20 09:14:39 Pt. Name: ADRIANA DINERO/Sex: 1955 Female Med Rec #: [id number] Physician: Reid NIEVES MD Financial #: [id number] Pt. Type: O Room/Bed: / Admit/Disch: 05/01/20 07:03:44 - Institution: Case Times PACU I FT Pre-Care Text: Identifies barriers to communication and implements measures to provide psychological support Develops individualized plan of care, and ensures continuity of care Maintains patient's dignity and privacy, and maintains patient confidentiality Identifies and reports philosophical, cultural, and spiritual beliefs and values Identifies individual values and wishes concerning care Implements aseptic technique, and administers prescribed antibiotic therapy and immunizing agents as ordered Evaluates postoperative tissue perfusion Implements thermoregulation measures, and monitors body temperature Evaluates postoperative respiratory status Evaluates postoperative cardiac status Evaluates postoperative neurological status Assesses pain control, collaborated in initiating patient-controlled analgesia and implements alternative methods of pain control Verifies allergies, administers prescribed medications and solutions, evaluates response to medications Entry 1 In PACU I 05/01/20 08:27:00 Discharge from PACU 05/01/20 08:57:00 I Outcomes Met? Yes Last Modified By: Ami Donaldson RN 05/01/20 09:14:28 Post-Care Text: The patient demonstrates knowledge of the expected response to the operative or invasive procedure The patient's care is consistent with the individualized perioperative plan of care The patient's right to privacy is maintained The patient's value system, lifestyle, ethnicity, and culture are considered, respected, and incorporated into the perioperative plan of care The patient participates in decisions affecting his or her perioperative plan of care The patient is free from signs and symptoms of infection The patient has wound/tissue perfusion consistent with or improved from baseline levels established preoperatively The patient is at or returning to normothermia at the conclusion of the immediate postoperative period The patient's respiratory function is consistent with or improved from baseline levels established preoperatively The patient's cardiovascular status is consistent with or improved from baseline levels established preoperatively The patient's cardiovascular status is consistent with or improved from baseline levels established preoperatively The patient demonstrates and/or reports adequate pain control throughout the perioperative period The patient received appropriate medication(s), safely administered during the perioperative period Acuity Level PACU I FT Entry 1 Start Time 05/01/20 08:27:00 Stop Time 05/01/20 08:57:00 Acuity Level Acuity Level I Last Modified By: Ami Donaldson RN 05/01/20 09:14:38 Finalized By: Ami Donaldson RN Document Signatures Signed By: Ami Donaldson RN 05/01/20 09:14 Normal [facility] Main OR Preoperative Recordo n 05-01-2020 Main OR Preoperative Record Holding Area Document Type FT Summary Primary Physician: Reid NIEVES MD Finalized Date/Time: 05/01/20 07:37:17 Pt. Name: ADRIANA DINERO D.O.B./Sex: 1955 Female Med Rec #: [id number] Physician: Reid NIEVES MD Financial #: [id number] Pt. Type: O Room/Bed: / Admit/Disch: 05/01/20 07:03:44 - Institution: Case Times Holding FT Pre-Care Text: Verifies consent for planned procedure, identifies individual values and wishes concerning care, includes family members in perioperative teaching Secures patient's records' belongings, and valuables, maintains patient's dignity and privacy, and maintains patient confidentiality Entry 1 In Holding 05/01/20 07:12:00 Outcomes Met? Yes Last Modified By: Lizbeth iDamond RN 05/01/20 07:12:34 Post-Care Text: The patient participates in decisions affecting his or her perioperative plan of care The patient's right to privacy is maintained Surgery Checklist FT Entry 1 Patient Birthday, ID Band Procedure History and Physical, Identification: Check, Patient Verification: Surgical Consent, With Participation Patient NPO after Midnight: Yes Results Reviewed n/a Comments: Personal Items: Glasses, Jewelry Personal Items Glassess, earrings, Comment: rings, metal to back and R hand Limitations: Vision Complaints of Pain: Yes Pain Comment: Abdominal discomfort Operative Site n/a 04/19 Marking: Availability Equipment Verified: Does Patient Smoke No Patient states Yes Comment - Adult Rony postop adult Supervision supervision available Case Cancelled in No Holding Area see comments below for reason Last Modified By: Lizbeth Diamond RN 05/01/20 07:19:04 Finalized By: Lizbeth Diamond RN Document Signatures Signed By: Lizbeth Diamond RN 05/01/20 07:37 Normal [facility] Monitor Recordon 05-01-2020 Monitor Record [id number] 1.00CD:127 Normal [facility] Patient Education - Texton 0 05-01-2020 Patient Education - Text Normal [facility] Ambulatory Clinical Summaryo n 04-24-2020 Ambulatory Clinical Summary {[id number] -[id number]}[id number] Normal [facility] Auto Diffon 04-24-2020 Basophils/100 WBC (Bld) 0.5 % Normal 0.0-2.0 [facility] Comment on above: Order Comment: Order Added by Discern Expert. Performed By: #### 2 222513, 2161989, 3893042, 7790642, 37570556 #### [facility] [address] [place] [address] 42709 Basophils/Leukocyte s Auto (Bld) [Pure # fraction] 0.0 E9/L Normal 0.0-0.2 [facility] Comment on above: Order Comment: Order Added by Discern Expert. Performed By: #### 2 762796, 7405865, 5726361, 8696776, 49080199 #### [facility] [address] [place] [address] 73303 Eosinophils/100 WBC (Bld) 2.9 % Normal 0.0-8.0 [facility] Comment on above: Order Comment: Order Added by Discern Expert. Performed By: #### 2 141024, 6985182, 5287585, 2308142, 81357641 #### [facility] [address] [place] [address] 90887 Eosinophils/Leukocy daniel Auto (Bld) [Pure # fraction] 0.3 E9/L Normal 0.0-0.5 [facility] Comment on above: Order Comment: Order Added by Discern Expert. Performed By: #### 2 422523, 3295386, 7594211, 3723194, 46225305 #### [facility] [address] [place] [address] 63204 Lymphocytes/100 WBC (Bld) 23.7 % Normal 14.0-50.0 [facility] Comment on above: Order Comment: Order Added by Discern Expert. Performed By: #### 2 808104, 9677844, 9710034, 0923728, 34202007 #### [facility] [address] [place] [address] 11467 Lymphocytes/Leukocy daniel Auto (Bld) [Pure # fraction] 2.2 E9/L Normal 1.0-4.0 [facility] Comment on above: Order Comment: Order Added by Discern Expert. Performed By: #### 2 892378, 2343602, 2976825, 1960489, 08887521 #### [facility] [address] [place] [address] 13280 Monocytes/100 WBC (Bld) 7.4 % Normal 4.0-14.0 [facility] Comment on above: Order Comment: Order Added by Discern Expert. Performed By: #### 2 969736, 3989363, 7672994, 3742571, 69470811 #### [facility] [address] [place] [address] 46549 Monocytes/Leukocyte s Auto (Bld) [Pure # fraction] 0.7 E9/L Normal 0.2-1.0 [facility] Comment on above: Order Comment: Order Added by Ynes Expert. Performed By: #### 2 955235, 5673468, 8154470, 4445610, 09175967 #### [facility] [address] [place] [address] 55730 Neutrophils/100 WBC (Bld) 65.5 % Normal 36.0-75.0 [facility] Comment on above: Order Comment: Order Added by Ynes Expert. Performed By: #### 2 715633, 0116398, 1864914, 6216094, 12256967 #### [facility] [address] [place] [address] 04969 Neutrophils/Leukocy daniel Auto (Bld) [Pure # fraction] 6.0 E9/L Normal 2.0-7.5 [facility] Comment on above: Order Comment: Order Added by Discern Expert. Performed By: #### 2 176389, 8037759, 6766775, 8863007, 75477750 #### [facility] [address] [place] [address] 51341 CBC w/ Auto Diffon 0 Erythrocyte distribution width (RBC) [Ratio] 16.1 % High 10.9-14.2 [facility] Comment on above: Performed By: #### 2 005836, 9838374, 7131848, 2746265, 35361662 #### [facility] [address] [place] [address] Hematocrit (Bld) [Volume fraction] 45.1 % Normal 34.0-46.0 [facility] Comment on above: Performed By: #### 2 799583, 8016377, 0586432, 4149884, 09001379 #### [facility] [address] [place] [address] Hemoglobin (Bld) [Mass/Vol] 15.0 g/dL Normal 12.0-16.0 [facility] Comment on above: Performed By: #### 2 803251, 6449922, 6244807, 8879196, 21641453 #### [facility] [address] [place] [address] 75548 MCH (RBC) [Entitic mass] 27.2 pg Normal 27.0-34.0 [facility] Comment on above: Performed By: #### 2 378273, 9210843, 5248790, 8191484, 81822802 #### [facility] [address] [place] [address] 42241 MCHC (RBC) [Mass/Vol] 33.2 g/dL Normal 31.4-36.0 [facility] Comment on above: Performed By: #### 2 647961, 3774567, 0364475, 7602363, 13078352 #### [facility] [address] [place] [address] 24972 MCV (RBC) [Entitic vol] 82.0 fL Normal 80.0-100.0 [facility] Comment on above: Performed By: #### 2 503928, 1643880, 2996757, 4059273, 92369219 #### [facility] [address] [place] [address] 64479 Platelet mean volume (Bld) [Entitic vol] 7.3 fL Normal 6.4-10.8 [facility] Comment on above: Performed By: #### 2 842607, 8147246, 1473374, 6936657, 37314729 #### [facility] [address] [place] [address] Platelets (Bld) [#/Vol] 253.0 E9/L Normal 150.0-500.0 [facility] Comment on above: Performed By: #### 2 445834, 4998525, 0619339, 2143765, 97437410 #### [facility] [address] [place] [address] 86849 RBC (Bld) [#/Vol] 5.5 E12/L Normal 4.3-5.9 [facility] Comment on above: Performed By: #### 2 592200, 4021069, 8692245, 9209572, 99574347 #### [facility] [address] [place] [address] 58662 WBC corrected for nucl RBC Auto (Bld) [#/Vol] 9.1 E9/L Normal 4.0-11.0 [facility] Comment on above: Performed By: #### 2 967684, 4239083, 5246723, 5827484, 63998459 #### [facility] [address] [place] [address] 53574 CMPon 04-24-2020 Albumin [Mass/Vol] 3.7 g/dL Normal 3.3-5.0 [facility] Comment on above: Performed By: #### 2 546788, 5211077, 3466115, 5182895, 73864533 #### [facility] [address] [place] [address] Albumin [Mass/Vol] 1.0 g/dL Low 1.1-2.2 [facility] Comment on above: Performed By: #### 2 133160, 9273711, 2207907, 5644286, 20512135 #### [facility] [address] [place] [address] 97316 ALP [Catalytic activity/Vol] 107 Int._Unit/L High 21-98 [facility] Comment on above: Performed By: #### 2 569816, 9881875, 9295199, 8389013, 92232582 #### [facility] [address] [place] [address] ALT No additional P-5'-P [Catalytic activity/Vol] 17 Int._Unit/L Normal 6-46 [facility] Comment on above: Performed By: #### 2 482768, 9340727, 7766819, 7170068, 89078781 #### [facility] [address] [place] [address] Anion gap [Moles/Vol] 11 mmol/L Normal 6-16 [facility] Comment on above: Performed By: #### 2 447828, 5126258, 4929718, 9171125, 51681481 #### [facility] [address] [place] [address] AST [Catalytic activity/Vol] 21 Int._Unit/L Normal 5-43 [facility] Comment on above: Performed By: #### 2 260236, 7982783, 4232462, 3767567, 71198184 #### [facility] [address] [place] [address] Bilirubin [Mass/Vol] 0.5 mg/dL Normal 0.0-1.1 [facility] Comment on above: Performed By: #### 2 605285, 8288099, 3542421, 3438769, 30314954 #### [facility] [address] [place] [address] Calcium [Mass/Vol] 9.0 mg/dL Normal 8.9-11.1 [facility] Comment on above: Performed By: #### 2 334222, 0024525, 7404359, 3358728, 28009844 #### [facility] [address] [place] [address] Chloride [Moles/Vol] 107 mmol/L Normal 101-111 [facility] Comment on above: Performed By: #### 2 867864, 0180332, 4829197, 6019507, 98470699 #### [facility] [address] [place] [address] CO2 [Moles/Vol] 27 mmol/L Normal 21-31 [facility] Comment on above: Performed By: #### 2 430322, 7579819, 2125365, 2980846, 41439759 #### [facility] [address] [place] [address] Creatinine [Mass/Vol] 0.8 mg/dL Normal 0.5-1.3 [facility] Comment on above: Performed By: #### 2 424209, 2166074, 8749693, 7232153, 41071708 #### [facility] [address] [place] [address] Globulin (S) [Mass/Vol] 3.7 g/dL Normal 1.4-4.0 [facility] Comment on above: Performed By: #### 2 592408, 1919886, 4728300, 2739620, 33193456 #### [facility] [address] [place] [address] Glucose [Mass/Vol] 134 mg/dL Normal 55-199 [facility] Comment on above: Result Comment: If t his glucose result represents a fasting glucose, interpretation should refer to the following reference range: 55-99 mg/dL Performed By: #### 2 608479, 9092521, 5598878, 5233631, 43704147 #### [facility] [address] [place] [address] Potassium [Moles/Vol] 3.9 mmol/L Normal 3.5-5.3 [facility] Comment on above: Performed By: #### 2 559835, 1178901, 5048054, 1981525, 53584610 #### [facility] [address] [place] [address] Protein [Mass/Vol] 7.4 g/dL Normal 6.0-7.8 [facility] Comment on above: Performed By: #### 2 626209, 9506008, 5769693, 4799789, 19674537 #### [facility] [address] [place] [address] Sodium [Moles/Vol] 141 mmol/L Normal 135-145 [facility] Comment on above: Performed By: #### 2 662058, 6885264, 6072836, 4718897, 28037269 #### [facility] [address] [place] [address] Urea nitrogen [Mass/Vol] 17 mg/dL Normal 5-21 [facility] Comment on above: Performed By: #### 2 709356, 6936134, 1664213, 9191746, 38818578 #### [facility] [address] [place] [address] Urea nitrogen/Creatinine [Mass ratio] 21 No Units High 10-20 [facility] Comment on above: Performed By: #### 2 220752, 0530399, 7413535, 9388820, 05168765 #### [facility] [address] [place] [address] Consent for Treatmenton 04-10 Consent for Treatment [id number] .[id number]:127 Normal [facility] Lipase Levelon 04-24-2020 Lipase [Catalytic activity/Vol] 40 unit/L Normal 13-58 [facility] Comment on above: Performed By: #### 2 408363, 4406399, 6758347, 4348919, 85800499 #### [facility] [address] [place] [address] Physician Orderon 04-24-2020 Physician Order [id number]. 00CD:127 Normal [facility] eGFRon 04-24-2020 GFR/1.73 sq M predicted among blacks MDRD (S/P/Bld) [Vol rate/Area] mL/min/{1.73_m2} Normal >=59 [facility] Comment on above: Order Comment: Order added by Discern Expert. Result Comment: eGFR is race adjusted. AA=. Performed By: #### 2 376685, 9514038, 8236697, 3583186, 24851758 #### [facility] [address] [place] [address] GFR/1.73 sq M predicted among non-blacks MDRD (S/P/Bld) [Vol rate/Area] mL/min/{1.73_m2} Normal >=59 [facility] Comment on above: Order Comment: Order added by Discern Expert. Result Comment: Bottom Buffer farhan kidney disease could be indicated at eGFR's of less than 60 mL/min/1.73m2. Kidney failure is indicated at less than 15 mL/min/1.73m2. Performed By: #### 2 040134, 1856306, 2119243, 5719633, 55550784 #### [facility] [address] [place] [address] PROGRESSon 11-04-2019 PROGRESS HNO ID: [id number] Author: Bridger Ma Service: ? Author Type: Physician Type: Progress Notes Filed: 11/04/2019 5:12 PM Note Text: Bridger Ma MD Department of Orthopaedics Orthopaedics [address] [place] [address] Dept: [phone] October 05, 2019 CHIEF COMPLAINT: New Patient (Right knee pain - Ref. Caitlyn Cantu) HPI: Ms. Adriana Dinero is a 64 year old female who presents for evaluation of her right knee. Burning and aching, 8 out of 10 pain is been bothering her for nearly 5 years. She had developed right knee pain after her last lumbar surgery which was 5 years ago. Has a burning discomfort on the inner portion of her knee. She's not able to kneel down on the knee. 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 I don't believe any surgical indication is warranted at this time. We will get her into see weight management and she would like a cortisone injection for the knee today which is very appropriate. FOLLOW UP INSTRUCTIONS: As needed Ms. Adriana Dinero was advised as to contrast therapies and/or to take analgesics/anti-infla mmatories as needed and all contraindications were reviewed. OBJECTIVE: Ms. Adriana Dinero is a pleasant 64 year old in no apparent distress. Gen:BP 121/58 Pulse 81 Ht 5' 6 (1.68m) Wt 273 lb 12.8 oz (124.2kg) BMI 44.21 kg/(m2). nl development, Morbidly obese, no deformities ENT: Normocephalic, normal hearing, moist mucosa CV: Pulses:DP/PT= 2+ and symmetric, capillary refill < 2 secs, no peripheral edema/varicosities Skin: no rash, bruising or lesions. Good turgor. Psych: cooperative and appropriate, alert and oriented x 3, good mood and affect. Musculoskeletal: Patient walks with antalgia, normal station. Hip motion without pain. Knee with mild effusion. Patella tracks normally. There is positive patellar crepitance. pain along the medial or lateral facets. Range of motion 5?125 degrees. Positive medial , without lateral joint line pain on palpation. Ligamentous exam stable on varus and valgus stress testing at 0 and 30 degrees. Coby's examination is negative. Posterior drawer is negative. Negative McMurrays, without palpable click. Extremity is warm and well perfused. Sensation is grossly intact to light touch, subjectively. Large Joint Arthro/Inj: R knee joint The risks, benefits and alternatives of the procedure were reviewed with the patient/surrogate, who agreed to proceed. Written Consent Obtained: N/A Sign In Communication: Completed Time Out: Time Out completed The Time-Out verifies the correct patient, procedure, side/site, position (if applicable) and completion and review of fire risk assessment/protocols (if appropriate): Affirmation of Time Out: Yes Signout Discussion: Yes 10/05/2019 4:20 PM The procedure site was prepped in the usual sterile fashion. Allergies were reviewed Site: R knee joint Medications: 6 mg betamethasone acetate-betamethasone sodium phosphate 6 mg/mL Anesthetics: 4 mL lidocaine (PF) 10 mg/mL (1 %) Outcome: Tolerated well, no immediate complications Post-injection instructions were reviewed with the patient and the patient voiced understanding of these instructions. IMAGING: MRI of the knee from an outside facility suggests tricompartmental arthritis. Supporting Subjective Information Below: Past Medical History: PAST MEDICAL HISTORY Diagnosis Date - SVT (supraventricular tachycardia) (HCC) Past Surgical History: PAST SURGICAL HISTORY Procedure Laterality Date - LAPAROSCOPIC CHOLEYCYSTECTOMY Cholecystectomy, lap - PAST SURGICAL HISTORY OF Right 1985 Right hand injury - wrok injury - has had 6 surgeries - PAST SURGICAL HISTORY OF Left and right rib resection - PAST SURGICAL HISTORY OF Heart ablation - PAST SURGICAL HISTORY OF Lumbar laminectomy and spinal fusions X 2 - TOTAL ABDOM HYSTERECTOMY Hysterectomy, MIRANDA Family History: FAMILY HISTORY Problem Relation Age of Onset - No Known Problems Mother - No Known Problems Father Social History: Social History Tobacco Use - Smoking status: Never Smoker - Smokeless tobacco: Never Used Substance Use Topics - Alcohol use: Yes Frequency: Monthly or less - Drug use: Never Medications: Current Outpatient Medications Medication Sig - torsemide (DEMADEX) 20 mg tablet Take 20 mg by mouth once daily. - potassium chloride (KLOR-CON) 20 mEq packet Take by mouth once daily. - docosahexanoic acid/epa (FISH OIL ORAL) Take by mouth once daily. Takes 1 tablet daily - ALPRAZolam (XANAX) 1 mg tablet Take 2 mg by mouth daily at bedtime. - naproxen (NAPROSYN) 500 mg tablet Take 500 mg by mouth twice daily with meals. - HYDROcodone-acetamino phen (NORCO) 5-325 mg per tablet Take 1 tablet by mouth every 6 hours as needed for Pain. - atenolol (TENORMIN) 25 mg tablet Take 50 mg by mouth daily at bedtime. - fluticasone-salmetero l (ADVAIR DISKUS) 500-50 mcg/dose dsdv Inhale 1 Puff as instructed twice daily. - DULoxetine (CYMBALTA) 60 mg capsule Take 60 mg by mouth once daily. No current facility-administered medications for this visit. Allergies: Sulfa (Sulfonamide Antibiotics) ROS: General (negative for fatigue, malaise, weight loss/gain) HEENT (negative for headache, earache, recent vision changes, sinus pain, sore throat) Respiratory (no recent shortness of breath, hemoptysis) CV (negative for chest tightness, palpitations) Musculoskeletal (see HPI) Psych (no depression, anxiety) REFERRING PHYSICIAN: Ms. Adriana Dinero was referred to [facility] for consultation by the following physician. This consultation note will be sent to the following physician by either mail or electronic medical record. Caitlyn Cantu, PAC 0 [facility] [address] Toby Quintana MD [address] [facility] [address] This note was partially generated using [employer] voice recognition system, and there may be some incorrect words, spellings, and punctuation that were not noted in checking the note before saving. Bridger Ma MD [facility] CNOVon 10-05-2019 CNOV Office Visit (ORMDNA ) ADRIANA DINERO ([id number]) 1955 F Date Time Provider Department 10/05/19 2:45 PM BRIDGER MA During your visit today, we recorded the following information about you: Pulse Blood pressure Weight Height 81/minute 121/58 124.2 kg 1.676 m Eleanor Antione Loya 11/04/2019 5:12 PM Signed Patient presents with: New Patient: Right knee pain - Ref. Caitlyn Cantu AMB ROOMING INTAKE FLOWSHEET DATA Risk Screening Do you have concerns about personal safety or safety in the home?: No Pain Pain Level: 8 Pain Location: Knee-Right Description: Burning, Aching Duration Amount of Time: 5 Duration Units: Years Frequency: Continuous Intervention: Medication Patient states she is having pain in her right knee after her last back surgery 5 years ago. Patient is having burning and pain on the medial aspect of her knee. Was unable to kneel on her knee. 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 Patient had an x-ray done at [facility] on 11/02/18 and a MRI on 11/30/18. Patient hand carried copies of the reports and films on a CD. with patient today. Referred by Caitlyn Cantu. Taking Whitehall and Naproxen for the pain and does not help. Using a walker today and as needed at home. Bridger Ma MD 11/04/2019 5:12 PM Signed Bridger Ma MD Department of Orthopaedics Orthopaedics [address] [id number] Dept: [phone] October 05, 2019 CHIEF COMPLAINT: New Patient (Right knee pain - Ref. Caitlyn Cantu) HPI: Ms. Adriana Dinero is a 64 year old female who presents for evaluation of her right knee. Burning and aching, 8 out of 10 pain is been bothering her for nearly 5 years. She had developed right knee pain after her last lumbar surgery which was 5 years ago. Has a burning discomfort on the inner portion of her knee. She's not able to kneel down on the knee. 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 I don't believe any surgical indication is warranted at this time. We will get her into see weight management and she would like a cortisone injection for the knee today which is very appropriate. FOLLOW UP INSTRUCTIONS: As needed Ms. Adriana Dinero was advised as to contrast therapies and/or to take analgesics/anti-infla mmatories as needed and all contraindications were reviewed. OBJECTIVE: Ms. Adriana Dinero is a pleasant 64 year old in no apparent distress. Gen:BP 121/58 Pulse 81 Ht 5' 6 (1.68m) Wt 273 lb 12.8 oz (124.2kg) BMI 44.21 kg/(m2). nl development, Morbidly obese, no deformities ENT: Normocephalic, normal hearing, moist mucosa CV: Pulses:DP/PT= 2+ and symmetric, capillary refill < 2 secs, no peripheral edema/varicosities Skin: no rash, bruising or lesions. Good turgor. Psych: cooperative and appropriate, alert and oriented x 3, good mood and affect. Musculoskeletal: Patient walks with antalgia, normal station. Hip motion without pain. Knee with mild effusion. Patella tracks normally. There is positive patellar crepitance. pain along the medial or lateral facets. Range of motion 5?125 degrees. Positive medial , without lateral joint line pain on palpation. Ligamentous exam stable on varus and valgus stress testing at 0 and 30 degrees. Coby's examination is negative. Posterior drawer is negative. Negative McMurrays, without palpable click. Extremity is warm and well perfused. Sensation is grossly intact to light touch, subjectively. Large Joint Arthro/Inj: R knee joint The risks, benefits and alternatives of the procedure were reviewed with the patient/surrogate, who agreed to proceed. Written Consent Obtained: N/A Sign In Communication: Completed Time Out: Time Out completed The Time-Out verifies the correct patient, procedure, side/site, position (if applicable) and completion and review of fire risk assessment/protocols (if appropriate): Affirmation of Time Out: Yes Signout Discussion: Yes 10/05/2019 4:20 PM The procedure site was prepped in the usual sterile fashion. Allergies were reviewed Site: R knee joint Medications: 6 mg betamethasone acetate-betamethasone sodium phosphate 6 mg/mL Anesthetics: 4 mL lidocaine (PF) 10 mg/mL (1 %) Outcome: Tolerated well, no immediate complications Post-injection instructions were reviewed with the patient and the patient voiced understanding of these instructions. IMAGING: MRI of the knee from an outside facility suggests tricompartmental arthritis. Supporting Subjective Information Below: Past Medical History: PAST MEDICAL HISTORY Diagnosis Date - SVT (supraventricular tachycardia) (HCC) Past Surgical History: PAST SURGICAL HISTORY Procedure Laterality Date - LAPAROSCOPIC CHOLEYCYSTECTOMY Cholecystectomy, lap - PAST SURGICAL HISTORY OF Right 1985 Right hand injury - wrok injury - has had 6 surgeries - PAST SURGICAL HISTORY OF Left and right rib resection - PAST SURGICAL HISTORY OF Heart ablation - PAST SURGICAL HISTORY OF Lumbar laminectomy and spinal fusions X 2 - TOTAL ABDOM HYSTERECTOMY Hysterectomy, MIRANDA Family History: FAMILY HISTORY Problem Relation Age of Onset - No Known Problems Mother - No Known Problems Father Social History: Social History Tobacco Use - Smoking status: Never Smoker - Smokeless tobacco: Never Used Substance Use Topics - Alcohol use: Yes Frequency: Monthly or less - Drug use: Never Medications: Current Outpatient Medications Medication Sig - torsemide (DEMADEX) 20 mg tablet Take 20 mg by mouth once daily. - potassium chloride (KLOR-CON) 20 mEq packet Take by mouth once daily. - docosahexanoic acid/epa (FISH OIL ORAL) Take by mouth once daily. Takes 1 tablet daily - ALPRAZolam (XANAX) 1 mg tablet Take 2 mg by mouth daily at bedtime. - naproxen (NAPROSYN) 500 mg tablet Take 500 mg by mouth twice daily with meals. - HYDROcodone-acetamino phen (NORCO) 5-325 mg per tablet Take 1 tablet by mouth every 6 hours as needed for Pain. - atenolol (TENORMIN) 25 mg tablet Take 50 mg by mouth daily at bedtime. - fluticasone-salmetero l (ADVAIR DISKUS) 500-50 mcg/dose dsdv Inhale 1 Puff as instructed twice daily. - DULoxetine (CYMBALTA) 60 mg capsule Take 60 mg by mouth once daily. No current facility-administered medications for this visit. Allergies: Sulfa (Sulfonamide Antibiotics) ROS: General (negative for fatigue, malaise, weight loss/gain) HEENT (negative for headache, earache, recent vision changes, sinus pain, sore throat) Respiratory (no recent shortness of breath, hemoptysis) CV (negative for chest tightness, palpitations) Musculoskeletal (see HPI) Psych (no depression, anxiety) REFERRING PHYSICIAN: Ms. Adriana Dinero was referred to me for consultation by the following physician. This consultation note will be sent to the following physician by either mail or electronic medical record. LIZZY Graham [address] [facility] [address] Toby Quintana MD [address] [place] [phone] This note was partially generated using [employer] voice recognition system, and there may be some incorrect words, spellings, and punctuation that were not noted in checking the note before saving. Bridger Ma MD Referring Provider: CAITLYN CANTU [[id number]] Allergies As of Date: 10/05/2019 Noted Allergy Reaction SULFA (SULFONAMIDE ANTIBIOTICS) 07/07/2019 4 - Hives Comments: Was covered in hives Date Reviewed: 10/05/2019 Reviewed by: Bridger Ma - Fully Assessed Reason for Visit: New Patient [172] Cmt: Right knee pain - Ref. Caitlyn Cantu Primary Visit Diagnosis:Chronic pain of right knee [M25.561, G89.29] Other Visit Diagnoses:Primary osteoarthritis of right knee [M17.11] Osseous stenosis of neural canal of lumbar region [M99.33] Morbidly obese (HCC) [E66.01] Order(s):[] betamethasone acetate-betamethasone sodium phosphate 6 mg injection (CELESTONE)Disp: Rfl: [facility] [[id number]] Order #: [id number]: 1 Large Joint Arthro/Inj: R knee joint [[id number]] Order #: [id number] betamethasone acetate-betamethasone sodium phosphate 6 mg injection (CELESTONE)Disp: Rfl: lidocaine (PF) 10 mg/mL (1 %) 4 mL injection (XYLOCAINE)Disp: Rfl: Prescriptions as of 10/05/2019 Sig: TORSEMIDE 20 MG TABLET Take 20 mg by mouth once devin* POTASSIUM CHLORIDE 20 MEQ ORA* Take by mouth once daily. FISH OIL ORAL Take by mouth once daily. Vitor* ALPRAZOLAM 1 MG TABLET Take 2 mg by mouth daily at b* NAPROXEN 500 MG TABLET Take 500 mg by mouth twice da* HYDROCODONE 5 MG-ACETAMINOPHE* Take 1 tablet by mouth every * ATENOLOL 25 MG TABLET Take 50 mg by mouth daily at * FLUTICASONE 500 MCG-SALMETERO* Inhale 1 Puff as instructed t* DULOXETINE 60 MG CAPSULE,SIMONE* Take 60 mg by mouth once devin* Problem List As Of Date: 10/05/2019 (None) Prescriptions ordered this encounter Disp Refills Start End BETAMETHASONE ACETATE AND SODIUM IMELDA* 10/05/2019 10/05/2019 Route: OTHER BETAMETHASONE ACETATE AND SODIUM IMELDA* 10/05/2019 Route: Inj-ORTHO LIDOCAINE (PF) 10 MG/ML (1 %) INJECT* 10/05/2019 Route: Inj-ORTHO Letter Text Encounter Status:Closed by BRIDGER MA MD on 11/04/19 [facility] PROGRESSon 10-05-2019 PROGRESS HNO ID: [id number] Author: Eleanor Talbot Ma Service: ? Author Type: ? Type: Progress Notes Filed: 11/04/2019 5:12 PM Note Text: Patient presents with: New Patient: Right knee pain - Ref. Caitlyn HERNANDEZ ROOMING INTAKE FLOWSHEET DATA Risk Screening Do you have concerns about personal safety or safety in the home?: No Pain Pain Level: 8 Pain Location: Knee-Right Description: Burning, Aching Duration Amount of Time: 5 Duration Units: Years Frequency: Continuous Intervention: Medication Patient states she is having pain in her right knee after her last back surgery 5 years ago. Patient is having burning and pain on the medial aspect of her knee. Was unable to kneel on her knee. 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 Patient had an x-ray done at [facility] on 11/02/18 and a MRI on 11/30/18. Patient hand carried copies of the reports and films on a CD. with patient today. Referred by Caitlyn Cantu. Taking [place]hall and Naproxen for the pain and does not help. Using a walker today and as needed at home. Normal [facility] CREATININEon 08-26-2019 Creatinine [Mass/Vol] 0.80 mg/dL Normal 0.50 - 1.05 [facility] Comment on above: Performed By: #### C REAT #### [address] [address] Creatinine [Mass/Vol] mg/dL Normal >60 [facility] Comment on above: Performed By: #### C REAT #### [address] [address] Result Comment: CALC ULATIONS OF ESTIMATED GFR ARE PERFORMED USING THE MDRD STUDY EQUATION FOR THE IDMS-TRACEABLE CREATININE METHODS. CLIN CHEM 2007;53:766-72 ELECTROLYTE PANELon 08-26-20 19 Anion gap [Moles/Vol] 14 mmol/L Normal 10 - 20 [facility] Comment on above: Performed By: #### E LECT #### [address] [address] Chloride [Moles/Vol] 104 mmol/L Normal 98 - 107 [facility] Comment on above: Performed By: #### E LECT #### [address] [address] HCO3 (Bld) [Moles/Vol] 29 mmol/L Normal 21 - 32 [facility] Comment on above: Performed By: #### E LECT #### [address] [address] Potassium [Moles/Vol] 4.6 mmol/L Normal 3.5 - 5.3 [facility] Comment on above: Performed By: #### E LECT #### [address] [place] [address] Sodium [Moles/Vol] 142 mmol/L Normal 136 - 145 [facility] Comment on above: Performed By: #### E LECT #### [address] [address] UREA NITROGENon 08-26-2019 Urea nitrogen [Mass/Vol] 14 mg/dL Normal 6 - 23 [facility] Comment on above: Performed By: #### U CARLOS #### [address] [address] [facility] CARDIAC STRESS/REST INJE CTIONon 08-25-2019 [facility] CARDIAC STRESS/REST INJECTION Patient Name: ADRIANA DINERO STUDY: MYOCARDIAL PERFUSION STRESS TEST WITH LEXISCAN Performing facility: [facility], [address] [place] [address], [address], [place] [address] [facility] Provider: GURU TORREZ PCP: Dr. Poli QUINTANA Supervising provider: Poli VILLAFANA INDICATION: DYSPNEA EDEMA HISTORY: Gender: F; Age: 64 y/o ; Height: 170.18 cm; Weight: 127.903049 kg. SOB High Cholesterol; Family HX CAD; PALPITATIONS COMPARISON: ACCESSION NUMBER(S): [id number] ORDERING CLINICIAN: IBAN TORREZ TECHNIQUE: TWO DAY protocol. Stress injection: Date:08/25/19, 33.7 mCi of Myoview IV 20 seconds after rapid injection of Lexiscan. Rest injection: Date: 08/26/19, 32.2 mCi of Myoview IV at rest. The patient had a rapid injection of 0.4 mg of Lexiscan IV over 10 seconds. Imaging was performed by GATED tomographic technique. Reason for Lexiscan: LEG PAIN STRESS TEST DATA: Resting heart rate was 84 BPM. Resting blood pressure was 144/82 mmHg. Peak blood pressure was 134/72 mmHg. Peak heart rate was 101 BPM. TEST TERMINATED DUE TO: Protocol completed FINDINGS: STRESS TEST RESULTS: Resting electrocardiogram revealed normal sinus rhythm. There were no significant ischemic ECG changes or dysrhythmias. The patient did not have chest pains/symptoms during procedure. There was a normal recovery phase. IMAGING RESULTS: Image quality was good. Rest and stress tomographic images were reviewed and revealed normal perfusion without evidence of ischemia, myocardial infarction, or left ventricular dilatation with stress. Overall left ventricular systolic function appeared to be normal without regional wall motion abnormalities. Ejection fraction was 82%. TID is 1.06 and is normal. There was no evidence of attenuation artifact. IMPRESSION: Normal Lexiscan Myoview cardiac perfusion stress test. No evidence of ischemia or myocardial infarction by perfusion imaging. Normal left ventricular systolic function, ejection fraction 82%. No previous studies are available for comparison. Electronically signed by: IBAN TORREZ MD Normal [facility] OT-MRI KNEE RT WO CON IMPORT on 07-27-2019 OT-MRI KNEE RT WO CON IMPORT Images were obtained outside of [facility] [id number] Normal [facility] CNOVon 07-07-2019 CNOV Office Visit (SPNMED ) ADRIANA DINERO ([id number]) 1955 F Date Time Provider Department 07/07/19 9:40 AM CAITLYN CANTU SPNMYAN During your visit today, we recorded the following information about you: Pulse Blood pressure Weight Height 80/minute 126/55 124.1 kg 1.676 m LIZZY Graham 07/07/2019 1:08 PM Signed Caitlyn Cantu PA-C [facility] [address] [place] [address] 07/07/2019 Assessment Diagnosis: Encounter Diagnosis ICD-10-CM 1. Fibromyalgia M79.7 2. History of lumbar spinal fusion Z98.1 3. Chronic neck pain M54.2 G89.29 4. Primary osteoarthritis of right knee M17.11 CONSULT TO ORTHOPAEDIC SURGERY Discussion: Ms. Dinero is a pleasant 64-year-old left-hand dominant female coming by her at today's visit. She is here for multiple chronic issues and complaints related to primarily the neck but also the low back. Patient has significant surgical history involving to lumbar spinal fusions now encompassing L2 through L5 with posterior and interbody instrumentation, most recent performed in 2013 at an outside facility. She also had multiple surgeries on the right hand from a severe injury she sustained as a young woman. 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 She had a removal gallbladder surgery that supposedly was complicated and ended up resulting in chronic bilious vomiting. She has had heart attacks and tachyarrhythmias fitted been treated with ablation in the past. She has been told for multiple years that she has fxor-dy-quzx arthritis in the right knee and this reportedly prohibits her from standing and walking on that leg. She saw a local orthopedist that stated she did not need surgery. Patient reportedly looked into weight loss strategies including dieting and bariatric surgical approaches but was told she could not have that done secondary to her gallbladder problems noted above. FMS-->muscular tightness, posterior neck pain very severe at the base of the neck in the midline and all the way down in between shoulders, thoracic spine to the lumbar region, posterior Pelvis and greater trochanters. Patient takes ongoing naproxen sodium and hydrocodone. On exam, she has severe hypersensitivity and tenderness along the entire axial spine from the base of the skull to the posterior pelvic bony prominences. This is noted to be worst at T1 spinous process There are severe right upper extremity residual deficit secondary to prior hand surgeries and disuse of the hand itself. Diminished motor function is noted throughout the entire right upper extremity, distally, related to her hand surgeries and injury but proximally more likely related to disuse of the right upper extremity. She has very difficult time getting up to a standing position and cannot stand on her left knee much at all. She demonstrates minimal neck motion without reproduction of significant posterior neck pain. Cervical CT myelogram was reviewed with her ring today's visit. There is apparent right-sided C2 3 facet hypertrophy that touches the cord on the right side at this level. There does not appear to be other lesions that can explain her bilateral upper extremity numbness and tingling and burning pain with dull aches. Lumbar portion of CT myelogram shows intact lumbar instrumentation L2 through 5 with interbody grafts, posterior pedicle screw construct, and cross-link. Fusion appears intact in posterior lateral gutters bilaterally. Central canal is decompressed. Overall, the clinical picture she presents with today is multifaceted from orthopedic and spinal standpoint. I cannot detect a focal neurologic deficit attributable directly to spinal issues other than chronic lumbar postsurgical sensory deficits. Patient has multiple medical problems that seem to have accumulated over the years and now are interacting in such a way that one problem appears to limit or inhibit treatment recommendations for another. I do not see spinal pathology that needs to be addressed on an urgent basis. I believe most of her symptoms from the spine are treatable to a combination of postsurgical lumbar symptoms and fibromyalgia symptoms. Right upper extremity weakness appears to be related to prior injury and disuse rather than current spinal concern. The facet lesion on the right at C2 3 does not appear to be able to reduce the symptoms that she is experiencing. I would encourage ongoing conservative management from the spine standpoint. She would benefit from further treatment for her fibromyalgia. I think patient could benefit from second opinion orthopedically regarding her right knee. I have encouraged patient to discuss her problem list with her primary care physician and try to come up with some type of an order of care that would allow her to get started and progress through various treatments to allow her to increase walking, address her weight loss needs. Plan ACTIVITY RECOMMENDATIONS: -The patient is encouraged to avoid bed rest and maintain normal activity. -The patient is encouraged to exercise regularly as tolerated. -The patient advised to avoid prolonged sitting. NUTRITION RECOMMENDATIONS: -The patient is carrying a significant amount of weight above an ideal BMI. We discussed how this impacts overall health and back pain. FOLLOW-UP: -The patient is instructed to return as needed. This document has been created with the use of voice recognition technology. It may contain inaccuracies: (e.g. misspellings, inaccurate syntax or word sense) that have escaped review. Time Spent: 70 minutes with greater than 60% of the time being spent face to face with the patient. cc: SELF Phone: N/A Fax: Results of consultation to be transmitted via electronic medical record for those providers who practice within [facility] [place] or with access to [email or web address] via MD Connect, or via letter. - SUBJECTIVE: Chief complaint: Neck pain, upper back Arm pain Right = Left HPI: Her neck pain and upper back is 7/10 and is constant. The neck pain is located in posterior neck and trapezial region (shoulders) and is described as aching, burning, stiff and tingling. Her arms symptoms are 7/10 and are constant. They are located in both upper arms, both forearms and both hands and described as aching, burning, pins and needles and numbness, sore. The symptoms are exacerbated by overhead activities, reaching, clothing, sleeping, work, bending, sitting, seated to standing, laying down, driving, walking and standing and improved by nothing, walk in the pool. She states that the symptoms began years ago and are related to a work injury. History of bowel or bladder dysfunction (not IBS or constipation): Yes, can't feel urge to urinate over the last few years (no recent change or progression in symptoms). She believes this started after her lumbar fusion. History of spinal fracture: No History of previous spinal surgery: Yes, done twice in past--performed in [address] [place] in [place]. The procedure was a spinal laminectomy and fusion L2-4, and subsequent revision L2-5 lami/fusion with posterior hardware and interbody cages. 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 This was completed 5 months ago. The therapy did not provide any significant relief. Went once Spinal Injections: She has gotten prior spinal injections. Other: Massage therapy No current outpatient medications on file. No current facility-administered medications for this visit. Allergies: Sulfa (Sulfonamide Antibiotics) No past medical history on file. No past surgical history on file. Social History Socioeconomic History Marital status: Spouse name: Not on file Number of children: Not on file Years of education: Not on file Highest education level: Not on file Occupational History Not on file Social Needs Financial resource strain: Not on file Food insecurity: Worry: Not on file Inability: Not on file Transportation needs: Medical: Not on file Non-medical: Not on file Tobacco Use Smoking status: Never Smoker Smokeless tobacco: Never Used Substance and Sexual Activity Alcohol use: Not on file Drug use: Not on file Sexual activity: Not on file Lifestyle Physical activity: Days per week: Not on file Minutes per session: Not on file Stress: Not on file Relationships Social connections: Talks on phone: Not on file Gets together: Not on file Attends caodaism service: Not on file Active member of club or organization: Not on file Attends meetings of clubs or organizations: Not on file Relationship status: Not on file Intimate partner violence: Fear of current or ex partner: Not on file Emotionally abused: Not on file Physically abused: Not on file Forced sexual activity: Not on file Other Topics Concerns: Not on file Social History Narrative Not on file No family history on file. REVIEW OF SYSTEMS: Constitutional: (-) Fever (+) Night Sweats (+) Weight Gain (-) Weight Loss (+) Fatigue Cardiovascular: (-) Chest Pain (-) Palpitations (-) Lightheadedness (+) Swelling of Ankles (+) Hx Heart Surgery Respiratory: (+) Shortness of Breath (+) Cough (+) Wheezing (+) Snoring Gastrointestinal: (+) Incontinence (-) Abdominal Pain (-) Diarrhea (-) Constipation (+) Nausea/Vomiting (-) Heart Burn Endocrine: (-) Thyroid Disorder (-) Diabetes Hematologic: (-) Prolonged Bleeding (-) Easy Bruising Genitourinary: (+) Incontinence (-) Frequency (-) Urinary Urgency Skin: (-) Rashes (-) Itching (-) Other Lesions Neurologic: (+) Headache (-) Double Vision (-) Confusion (-) Paralysis (-) Vertigo (-) Syncope Psychiatric: (+) Depression (+) Anxiety (-) Delusions (-) Hallucinations (-) Suicidal Thoughts PHYSICAL EXAM: Blood pressure 126/55, pulse 80, height 167.6 cm (5' 6 ), weight 124.1 kg (273 lb 11.2 oz), SpO2 97 %. Body mass index is 44.18 kg/m?. GENERAL: Patient is alert, oriented and cooperative and is a(n) good historian. The patient appears approximately her stated age and is sitting uncomfortably in the examining room. She has great difficulty arising from a sitting position. She does have difficulty acquiring a full, upright position when standing. Patient is average height in stature and is morbidly obese in appearance. MENTAL STATUS EXAMINATION: The patient was well groomed and casually attired. The patient had good eye contact and rapport was average to establish. The patient appeared to be alert and oriented in all spheres. She was cooperative with the interview process. Judgment was good. The patient's motivation for treatment was judged based on today's encounter to be fair. CERVICAL SPINE: Skin: Normal-no rashes, bruises, lesions, or signs of localized trauma., Skin color, texture and turgor normal., A well-healed incisional line is noted posterior lumbar region. Lordosis: unable to assess due to body habitus Paraspinal atrophy: No Tenderness: Severe at T1 spinous process Hyperesthesia present: Yes, in the following locations: cervical spine, shoulders/trapezius, thoracic spine and soft tissues. Regional pain present: Yes, consistent with fibromyalgia distribution Distraction: Normal Pain responses: elevated Range of Motion: Flexion: 1 fingerbreadths from chin to chest Pain: Yes Extension: limited with crepitation and pain Rotation: Right: limited with pain Left: limited with pain NEUROLOGIC EXAM: Requires verbal cues to minimize cog-wheel or give-way resistance: Yes MOTOR: Deltoid R: +3/5 L: 5/5 Biceps R: -4/5 L: 5/5 Wrist Extension R: -4/5 L: 5/5 Wrist Flexion R: -4/5 L: 5/5 Triceps R: -4/5 L: 5/5 Dialysis Chief Equipment Technician R: -2/5 L: 5/5 Interossei R: 0/5 L: 5/5 SENSATION to Light Touch: Cervical: Old injury involves numbness in the right hand, non-dermatomal. Thoracic: T1-L1 symmetrically normal. Spurling's: Reproduces axial pain only. REFLEXES: Upper Extremity: Brachioradialis: R: 1+ inverted? No L: 1+ inverted? No Biceps: R: 2+ L: 2+ Triceps: R: 1+ L: 1+ Lower Extremity: Patella tendon: R: 1+ L: 1+ Achilles tendon: R: 1+ L: 1+ Pena's: Negative bilaterally. Clonus: R: 0 beats/Normal L: 0 beats/Normal Babinski Sign Present: Negative bilaterally. STATION AND GAIT: flexed posture and antalgic gait leaning forward, severe gait disturbance (can walk only with assistance), short strides, wide-based, shuffling gait and slow pace The patient is unable to walk in a tandem gait. IMAGING STUDIES: See above Referring Provider: SELF [[id number]] Allergies As of Date: 07/07/2019 Noted Allergy Reaction SULFA (SULFONAMIDE ANTIBIOTICS) 07/07/2019 4 - Hives Comments: Was covered in hives Date Reviewed: 07/07/2019 Reviewed by: Betsy Medina - Fully Assessed Reason for Visit: New Patient Evaluation [154] Primary Visit Diagnosis:Fibromyalgi a [M79.7] Other Visit Diagnoses:History of lumbar spinal fusion [Z98.1] Chronic neck pain [M54.2, G89.29] Primary osteoarthritis of right knee [M17.11] Order(s):CONSULT TO ORTHOPAEDIC SURGERY [19991211] Order #: [id number]: 1 Prescriptions as of 07/07/2019 Sig: ALPRAZOLAM 1 MG TABLET Take 2 mg by mouth daily at b* FLUTICASONE 500 MCG-SALMETERO* Inhale 1 Puff as instructed t* NAPROXEN 500 MG TABLET Take 500 mg by mouth twice da* HYDROCODONE 5 MG-ACETAMINOPHE* Take 1 tablet by mouth every * ATENOLOL 25 MG TABLET Take 50 mg by mouth daily at * DULOXETINE 60 MG CAPSULE,SIMONE* Take 60 mg by mouth once devin* Problem List As Of Date: 07/07/2019 (None) Disposition: Return if symptoms worsen or fail to improve. Follow-up and Disposition History Recorded Encounter Status:Closed by CAITLYN CANTU PA-C on 07/07/19 [facility] PROGRESSon 07-07-2019 PROGRESS HNO ID: [id number] Author: Caitlyn Cantu Service: ? Author Type: Physician Visual Manager Type: Progress Notes Filed: 07/07/2019 1:08 PM Note Text: [facility] [address] [address] 07/07/2019 Assessment Diagnosis: Encounter Diagnosis ICD-10-CM 1. Fibromyalgia M79.7 2. History of lumbar spinal fusion Z98.1 3. Chronic neck pain M54.2 G89.29 4. Primary osteoarthritis of right knee M17.11 CONSULT TO ORTHOPAEDIC SURGERY Discussion: Ms. Dinero is a pleasant 64-year-old left-hand dominant female coming by her at today's visit. She is here for multiple chronic issues and complaints related to primarily the neck but also the low back. Patient has significant surgical history involving to lumbar spinal fusions now encompassing L2 through L5 with posterior and interbody instrumentation, most recent performed in 2013 at an outside facility. She also had multiple surgeries on the right hand from a severe injury she sustained as a young woman. 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 She had a removal gallbladder surgery that supposedly was complicated and ended up resulting in chronic bilious vomiting. She has had heart attacks and tachyarrhythmias fitted been treated with ablation in the past. She has been told for multiple years that she has papt-ba-ihjl arthritis in the right knee and this reportedly prohibits her from standing and walking on that leg. She saw a local orthopedist that stated she did not need surgery. Patient reportedly looked into weight loss strategies including dieting and bariatric surgical approaches but was told she could not have that done secondary to her gallbladder problems noted above. FMS-->muscular tightness, posterior neck pain very severe at the base of the neck in the midline and all the way down in between shoulders, thoracic spine to the lumbar region, posterior Pelvis and greater trochanters. Patient takes ongoing naproxen sodium and hydrocodone. On exam, she has severe hypersensitivity and tenderness along the entire axial spine from the base of the skull to the posterior pelvic bony prominences. This is noted to be worst at T1 spinous process There are severe right upper extremity residual deficit secondary to prior hand surgeries and disuse of the hand itself. Diminished motor function is noted throughout the entire right upper extremity, distally, related to her hand surgeries and injury but proximally more likely related to disuse of the right upper extremity. She has very difficult time getting up to a standing position and cannot stand on her left knee much at all. She demonstrates minimal neck motion without reproduction of significant posterior neck pain. Cervical CT myelogram was reviewed with her ring today's visit. There is apparent right-sided C2 3 facet hypertrophy that touches the cord on the right side at this level. There does not appear to be other lesions that can explain her bilateral upper extremity numbness and tingling and burning pain with dull aches. Lumbar portion of CT myelogram shows intact lumbar instrumentation L2 through 5 with interbody grafts, posterior pedicle screw construct, and cross-link. Fusion appears intact in posterior lateral gutters bilaterally. Central canal is decompressed. Overall, the clinical picture she presents with today is multifaceted from orthopedic and spinal standpoint. I cannot detect a focal neurologic deficit attributable directly to spinal issues other than chronic lumbar postsurgical sensory deficits. Patient has multiple medical problems that seem to have accumulated over the years and now are interacting in such a way that one problem appears to limit or inhibit treatment recommendations for another. I do not see spinal pathology that needs to be addressed on an urgent basis. I believe most of her symptoms from the spine are treatable to a combination of postsurgical lumbar symptoms and fibromyalgia symptoms. Right upper extremity weakness appears to be related to prior injury and disuse rather than current spinal concern. The facet lesion on the right at C2 3 does not appear to be able to reduce the symptoms that she is experiencing. I would encourage ongoing conservative management from the spine standpoint. She would benefit from further treatment for her fibromyalgia. I think patient could benefit from second opinion orthopedically regarding her right knee. I have encouraged patient to discuss her problem list with her primary care physician and try to come up with some type of an order of care that would allow her to get started and progress through various treatments to allow her to increase walking, address her weight loss needs. Plan ACTIVITY RECOMMENDATIONS: -The patient is encouraged to avoid bed rest and maintain normal activity. -The patient is encouraged to exercise regularly as tolerated. -The patient advised to avoid prolonged sitting. NUTRITION RECOMMENDATIONS: -The patient is carrying a significant amount of weight above an ideal BMI. We discussed how this impacts overall health and back pain. FOLLOW-UP: -The patient is instructed to return as needed. This document has been created with the use of voice recognition technology. It may contain inaccuracies: (e.g. misspellings, inaccurate syntax or word sense) that have escaped review. Time Spent: 70 minutes with greater than 60% of the time being spent face to face with the patient. cc: SELF Phone: N/A Fax: Results of consultation to be transmitted via electronic medical record for those providers who practice within [facility] [place] or with access to [email or web address] via [facility], or via letter. SUBJECTIVE: Chief complaint: Neck pain, upper back Arm pain Right = Left HPI: Her neck pain and upper back is 7/10 and is constant. The neck pain is located in posterior neck and trapezial region (shoulders) and is described as aching, burning, stiff and tingling. Her arms symptoms are 7/10 and are constant. They are located in both upper arms, both forearms and both hands and described as aching, burning, pins and needles and numbness, sore. The symptoms are exacerbated by overhead activities, reaching, clothing, sleeping, work, bending, sitting, seated to standing, laying down, driving, walking and standing and improved by nothing, walk in the pool. She states that the symptoms began years ago and are related to a work injury. History of bowel or bladder dysfunction (not IBS or constipation): Yes, can't feel urge to urinate over the last few years (no recent change or progression in symptoms). She believes this started after her lumbar fusion. History of spinal fracture: No History of previous spinal surgery: Yes, done twice in past--performed in [address] [place] in [place]. The procedure was a spinal laminectomy and fusion L2-4, and subsequent revision L2-5 lami/fusion with posterior hardware and interbody cages. 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 This was completed 5 months ago. The therapy did not provide any significant relief. Went once Spinal Injections: She has gotten prior spinal injections. Other: Massage therapy No current outpatient medications on file. No current facility-administered medications for this visit. Allergies: Sulfa (Sulfonamide Antibiotics) No past medical history on file. No past surgical history on file. Social History Socioeconomic History Marital status: Spouse name: Not on file Number of children: Not on file Years of education: Not on file Highest education level: Not on file Occupational History Not on file Social Needs Financial resource strain: Not on file Food insecurity: Worry: Not on file Inability: Not on file Transportation needs: Medical: Not on file Non-medical: Not on file Tobacco Use Smoking status: Never Smoker Smokeless tobacco: Never Used Substance and Sexual Activity Alcohol use: Not on file Drug use: Not on file Sexual activity: Not on file Lifestyle Physical activity: Days per week: Not on file Minutes per session: Not on file Stress: Not on file Relationships Social connections: Talks on phone: Not on file Gets together: Not on file Attends caodaism service: Not on file Active member of club or organization: Not on file Attends meetings of clubs or organizations: Not on file Relationship status: Not on file Intimate partner violence: Fear of current or ex partner: Not on file Emotionally abused: Not on file Physically abused: Not on file Forced sexual activity: Not on file Other Topics Concerns: Not on file Social History Narrative Not on file No family history on file. REVIEW OF SYSTEMS: Constitutional: (-) Fever (+) Night Sweats (+) Weight Gain (-) Weight Loss (+) Fatigue Cardiovascular: (-) Chest Pain (-) Palpitations (-) Lightheadedness (+) Swelling of Ankles (+) Hx Heart Surgery Respiratory: (+) Shortness of Breath (+) Cough (+) Wheezing (+) Snoring Gastrointestinal: (+) Incontinence (-) Abdominal Pain (-) Diarrhea (-) Constipation (+) Nausea/Vomiting (-) Heart Burn Endocrine: (-) Thyroid Disorder (-) Diabetes Hematologic: (-) Prolonged Bleeding (-) Easy Bruising Genitourinary: (+) Incontinence (-) Frequency (-) Urinary Urgency Skin: (-) Rashes (-) Itching (-) Other Lesions Neurologic: (+) Headache (-) Double Vision (-) Confusion (-) Paralysis (-) Vertigo (-) Syncope Psychiatric: (+) Depression (+) Anxiety (-) Delusions (-) Hallucinations (-) Suicidal Thoughts PHYSICAL EXAM: Blood pressure 126/55, pulse 80, height 167.6 cm (5' 6 ), weight 124.1 kg (273 lb 11.2 oz), SpO2 97 %. Body mass index is 44.18 kg/m?. GENERAL: Patient is alert, oriented and cooperative and is a(n) good historian. The patient appears approximately her stated age and is sitting uncomfortably in the examining room. She has great difficulty arising from a sitting position. She does have difficulty acquiring a full, upright position when standing. Patient is average height in stature and is morbidly obese in appearance. MENTAL STATUS EXAMINATION: The patient was well groomed and casually attired. The patient had good eye contact and rapport was average to establish. The patient appeared to be alert and oriented in all spheres. She was cooperative with the interview process. Judgment was good. The patient's motivation for treatment was judged based on today's encounter to be fair. CERVICAL SPINE: Skin: Normal-no rashes, bruises, lesions, or signs of localized trauma., Skin color, texture and turgor normal., A well-healed incisional line is noted posterior lumbar region. Lordosis: unable to assess due to body habitus Paraspinal atrophy: No Tenderness: Severe at T1 spinous process Hyperesthesia present: Yes, in the following locations: cervical spine, shoulders/trapezius, thoracic spine and soft tissues. Regional pain present: Yes, consistent with fibromyalgia distribution Distraction: Normal Pain responses: elevated Range of Motion: Flexion: 1 fingerbreadths from chin to chest Pain: Yes Extension: limited with crepitation and pain Rotation: Right: limited with pain Left: limited with pain NEUROLOGIC EXAM: Requires verbal cues to minimize cog-wheel or give-way resistance: Yes MOTOR: Deltoid R: +3/5 L: 5/5 Biceps R: -4/5 L: 5/5 Wrist Extension R: -4/5 L: 5/5 Wrist Flexion R: -4/5 L: 5/5 Triceps R: -4/5 L: 5/5 Dialysis Chief Equipment Technician R: -2/5 L: 5/5 Interossei R: 0/5 L: 5/5 SENSATION to Light Touch: Cervical: Old injury involves numbness in the right hand, non-dermatomal. Thoracic: T1-L1 symmetrically normal. Spurling's: Reproduces axial pain only. REFLEXES: Upper Extremity: Brachioradialis: R: 1+ inverted? No L: 1+ inverted? No Biceps: R: 2+ L: 2+ Triceps: R: 1+ L: 1+ Lower Extremity: Patella tendon: R: 1+ L: 1+ Achilles tendon: R: 1+ L: 1+ Pena's: Negative bilaterally. Clonus: R: 0 beats/Normal L: 0 beats/Normal Babinski Sign Present: Negative bilaterally. STATION AND GAIT: flexed posture and antalgic gait leaning forward, severe gait disturbance (can walk only with assistance), short strides, wide-based, shuffling gait and slow pace The patient is unable to walk in a tandem gait. IMAGING STUDIES: See above Normal [facility] CT-CT cervical spine w con I MPORTon 04-08-2019 CT-CT cervical spine w con IMPORT Images were obtained outside of [facility] [id number] N Normal [facility] CT-CT cervical spine w con IMPORT Images were obtained outside of [facility] [id number] N Normal [facility] CT-CT cervical spine w con IMPORT Images were obtained outside of [facility] [id number] N Normal [facility] CT-CT lumbar spine w con IMP Edi 04-08-2019 CT-CT lumbar spine w con IMPORT Images were obtained outside of [facility] [id number] N Normal [facility] CT-CT lumbar spine w con IMPORT Images were obtained outside of [facility] [id number] N Normal [facility] CT-CT lumbar spine w con IMPORT Images were obtained outside of [facility] [id number] N Normal [facility] OT-IR myelogram spine total IMPORTon 04-08-2019 OT-IR myelogram spine total IMPORT Images were obtained outside of [facility] [id number] N Normal [facility] OT-IR myelogram spine total IMPORT Images were obtained outside of [facility] [id number] N Normal [facility] OT-IR myelogram spine total IMPORT Images were obtained outside of [facility] [id number] N Normal [facility] OT-MRI C-SPINE WO CON IMPORT on 02-25-2019 OT-MRI C-SPINE WO CON IMPORT Images were obtained outside of [facility] [id number] N Normal [facility] OT-XR KNEE RT 4V OR > IMPORT on 11-30-2018 OT-XR KNEE RT 4V OR > IMPORT Images were obtained outside of [facility] [id number] N Normal [facility] Vital Signs Date Time Vital Sign Value Performing Clinician Facility 12-09-2023 10:32-0500 Diastolic blood pressure 80 mm[Hg] Iban Torrez MD Work Phone: [facility] 12-09-2023 10:32-0500 Systolic blood pressure 130 mm[Hg] Iban Torrez MD Work Phone: [facility] 12-09-2023 09:46-0500 Body height 167.6 cm Iban Torrez MD Work Phone: [facility] 12-09-2023 09:46-0500 Body mass index (BMI) [Ratio] 39.06 kg/m2 Iban Torrez MD Work Phone: [facility] 12-09-2023 09:46-0500 Body weight 109.77 kg Iban Torrez MD Work Phone: [facility] 12-09-2023 09:46-0500 Heart rate 68 /min Iban Torrez MD Work Phone: [facility] 08-20-2023 09:00-0400 Body height 167.64 cm Toby Quintana Other [facility] Other 08-20-2023 09:00-0400 Body mass index (BMI) [Ratio] 38.38 kg/m2 Toby Quintana Other [facility] Other 08-20-2023 09:00-0400 Body weight 107.87 kg Toby Quintana Other [facility] Other 08-20-2023 09:00-0400 Diastolic blood pressure 75 mm[Hg] Toby Quintana Other [facility] Other 08-20-2023 09:00-0400 Systolic blood pressure 108 mm[Hg] Toby Quintana Other [facility] Other 04-24-2023 11:15-0400 Body height 167.64 cm Toby Quintana Other [facility] Other 04-24-2023 11:15-0400 Body mass index (BMI) [Ratio] 38.73 kg/m2 Toby Quintana Other [facility] Other 04-24-2023 11:15-0400 Body weight 108.86 kg Toby Quintana Other [facility] Other 04-24-2023 11:15-0400 Diastolic blood pressure 79 mm[Hg] Toby Quintana Other [facility] Other 04-24-2023 11:15-0400 Systolic blood pressure 114 mm[Hg] Toby Qiuntana Other [facility] Other 02-07-2023 09:30-0400 Body height 167.64 cm Toby Quintana Other [facility] Other 02-07-2023 09:30-0400 Body mass index (BMI) [Ratio] 39.99 kg/m2 Toby Quintana Other [facility] Other 02-07-2023 09:30-0400 Body weight 112.4 kg Toby Quintana Other [facility] Other 02-07-2023 09:30-0400 Diastolic blood pressure 68 mm[Hg] Toby Quintana Other [facility] Other 02-07-2023 09:30-0400 Respiratory rate 18 /min Toby Quintana Other [facility] Other 02-07-2023 09:30-0400 SaO2% (BldA) [Mass fraction] 93 % Toby Quintana Other [facility] Other 02-07-2023 09:30-0400 Systolic blood pressure 142 mm[Hg] Toby Quintana Other [facility] Other 01-08-2023 10:00-0500 Body height 167.64 cm Samuel Chatman II Other [facility] Other 01-08-2023 10:00-0500 Body mass index (BMI) [Ratio] 40.19 kg/m2 Samuel Chatman II Other [facility] Other 01-08-2023 10:00-0500 Body weight 112.95 kg Samuel Chatman II Other [facility] Other 12-09-2022 13:25-0500 Body height 167.64 cm Toby Quintana [facility] Phone[facility] [facility] Work Phone: 12-09-2022 13:25-0500 Body mass index (BMI) [Ratio] 40.03 kg/m2 Toby Quintana Work Phone: [facility] [address] DO Work Phone: 12-09-2022 13:25-0500 Body surface area Derived from formula 2.19 m2 Toby Quintana Work Phone[facility] [facility] DO Work Phone: 12-09-2022 13:25-0500 Body weight 112.49 kg Toby Quintana Work Phone: [facility] [employer] DO Work Phone: 12-09-2022 13:25-0500 Diastolic blood pressure 80 mm[Hg] Toby Quintana Work Phone: [facility] [address] DO Work Phone: 12-09-2022 13:25-0500 Heart rate 78 /min Toby Quintana Work Phone: [facility] [address] DO Work Phone: 12-09-2022 13:25-0500 Systolic blood pressure 118 mm[Hg] Toby Quintana Work Phone: [facility] [address] DO Work Phone: 11-22-2022 09:00-0500 Body height 167.64 cm Leeann Blades Other [facility] Other 11-22-2022 09:00-0500 Body mass index (BMI) [Ratio] 39.54 kg/m2 Leeann Blades Other [facility] Other 11-22-2022 09:00-0500 Body weight 111.13 kg Leeann Blades Other [facility] Other 09-04-2021 13:27-0400 Body height 170.18 cm Toby Quintana Work Phone: [facility] [address] DO Work Phone: 09-04-2021 13:27-0400 Body mass index (BMI) [Ratio] 39.78 kg/m2 Toby Quintana Work Phone: [facility] [address] DO Work Phone: 09-04-2021 13:27-0400 Body surface area Derived from formula 2.24 m2 Toby Quintana Work Phone: [facility] [address] DO Work Phone: 09-04-2021 13:27-0400 Body weight 115.21 kg Toby Quintana Work Phone: [facility] [address] DO Work Phone: 09-04-2021 13:27-0400 Diastolic blood pressure 78 mm[Hg] Toby Quintana Work Phone: [facility] [address] DO Work Phone: 09-04-2021 13:27-0400 Heart rate 80 /min Toby Quintana Work Phone: [facility] 250 DO Work Phone: 09-04-2021 13: Systolic blood pressure 104 mm[Hg] Toby Quintana Work Phone: [facility] [address] DO Work Phone: Encounters Encounter Date Encounter Type Care Provider Facility Start: 12-19-2023 End: 12-19-2023 ambulatory Toby Quintana Other [facility] Other Start: 12-19-2023 Telephone encounter Toby Quintana [facility] Start: 12-17-2023 End: 12-17-2023 ambulatory Toby Quintana Other [facility] Other Start: 12-17-2023 Telephone encounter Toby Quintana [facility] Start: 12-16-2023 (Televisit) Televisit Toby Quintana [facility] Start: 12-16-2023 End: 12-16-2023 ambulatory Toby Quintana Other [facility] Other Start: 12-09-2023 End: 12-09-2023 ambulatory IBAN [facility] Start: 12-09-2023 End: 12-09-2023 Office outpatient visit 25 minutes Iban Torrez MD Work Phone: [facility] Comment on above: Supraventricular tac hycardia by ECG (Primary Dx); Mixed hyperlipidemia; Palpitations; Class II obesity Start: 12-08-2023 End: 12-08-2023 ambulatory Toby Quintana Other [facility] Other Start: 12-08-2023 Telephone encounter Toby Quintana [facility] Start: 11-04-2023 End: 11-04-2023 ambulatory Toby Quintana Other [facility] Other Start: 11-04-2023 Telephone encounter Toby Quintana [facility] Start: 10-21-2023 (Televisit) Televisit Toby Quintana [facility] Start: 10-21-2023 End: 10-21-2023 ambulatory Toby Quintana Other [facility] Other Start: 10-20-2023 End: 10-20-2023 ambulatory Toby Mariano Other [facility] Other Start: 10-20-2023 Telephone encounter Toby Mariano [facility] Start: 09-25-2023 (Televisit) Televisit Toby Quintana [facility] Start: 09-25-2023 End: 09-25-2023 ambulatory Toby Mariano Other [facility] Other Start: 09-22-2023 (Televisit) Televisit Toby Quintana [facility] Start: 09-22-2023 End: 09-22-2023 ambulatory Toby Mariano Other [facility] Other Start: 09-22-2023 Telephone encounter Toby Quintana [facility] Start: 08-20-2023 End: 08-20-2023 ambulatory Toby Mariano Other [facility] Other Start: 08-20-2023 Patient encounter procedure Toby Mariano [facility] Start: 05-22-2023 Telephone encounter Toby eugene Work Phone: [facility] 600 DO Work Phone: Start: 05-12-2023 End: 05-12-2023 ambulatory Toby Quintana Other [facility] Other Start: 05-12-2023 Telephone encounter Toby Mariano [facility] Start: 04-24-2023 End: 04-24-2023 ambulatory Toby Quintana Other [facility] Other Start: 04-24-2023 Office outpatient vi sit 15 minutes Toby Quintana [facility] Start: 04-11-2023 End: 04-11-2023 ambulatory Toby Quintana Other [facility] Other Start: 04-11-2023 Telephone encounter Toby Quintana [facility] Start: 03-13-2023 End: 03-13-[address] AGUSTIN BYERS Facility:UNKNOWN Start: 03-13-[address] Toby Quintana Facility:[id number] Start: 02-07-2023 End: 02-07-2023 ambulatory Toby Quintana Other [facility] Other Start: 02-07-2023 Patient encounter procedure Toby Quintana [facility] Start: 02-03-2023 End: 02-03-2023 ambulatory Leeann Blades Other [facility] Other Start: 02-03-2023 Telephone encounter Leeann Blades [facility] Start: 01-27-2023 End: 01-27-2023 ambulatory Leeann Blades Other [facility] Other Start: 01-27-2023 Telephone encounter Leeann Blades F [facility] Start: 01-21-[address] TOBY QUINTANA Facil ity:H1 Start: 01-16-2023 End: 01-16-2023 ambulatory Samuel Chatman II Other [facility] Other Start: 01-16-2023 Telephone encounter Samuel Chatman II [facility] [employer] [facility] Start: 01-08-2023 FQHC visit new patient Samuel tyler II [facility] Start: 01-08-2023 End: 01-08-2023 ambulatory Samuel Chatman II Facility:[facility] Start: 01-08-2023 End: 01-08-2023 ambulatory MD Toby Quintana Work Phone: [facility] Work Phone: Start: 01-08-2023 End: 01-08-2023 Patient encounter procedure MD Toby Quintana Work Phone: [facility] Start: 01-02-2023 End: 01-02-2023 ambulatory Toby Quintana Other [facility] Other Start: 01-02-2023 Telephone encounter Leeann Blades F [facility] Start: 12-30-2022 End: 12-30-2022 ambulatory Leeann Blades Other [facility] Other Start: 12-30-2022 Telephone encounter Leeann Blades F [facility] Start: 12-26-2022 End: 12-26-2022 ambulatory Leeann Blades Other [facility] Other Start: 12-26-2022 Telephone encounter Leeann Blades F [facility] Start: 12-19-2022 End: 12-19-2022 ambulatory Leeann Blades Other [facility] Other Start: 12-19-2022 Telephone encounter Leeann Blades F [facility] Start: 12-17-2022 End: 12-17-2022 ambulatory Toby Quintana Other [facility] Other Start: 12-17-2022 Telephone encounter Toby Quintana [facility] Start: 12-10-2022 End: 12-10-2022 ambulatory Toby Quintana Other [facility] Other Start: 12-10-2022 Telephone encounter Toby Quintana [facility] Start: 12-09-2022 Office outpatient vi sit 25 minutes Tboy Quintana Work Phone: [facility] 250 DO Work Phone: Start: 12-09-[address] Iban Torrze Facility: Start: 11-25-2022 End: 11-25-2022 ambulatory Leeann Blades Other [facility] [employer] [facility] Other Start: 11-25-2022 Telephone encounter Leeann Blades [facility] [employer] Start: 11-22-2022 Office outpatient ne w 45 minutes Leeann Blades [facility] Start: 11-22-2022 End: 11-22-2022 ambulatory Leeann Blades Facility:[facility] Start: 11-22-2022 End: 11-22-2022 ambulatory MD Toby Quintana Work Phone: [facility] Work Phone: Start: 11-22-2022 End: 11-22-2022 Patient encounter procedure MD Toby Quintana Work Phone: [facility] Work Phone: Start: 11-05-2022 Adult health examination Nannette Quintana Other [facility] [employer] Other Start: 11-05-2022 Pre-procedure evalua tion check Toby Quintana Other [facility] [employer] Other Start: 10-04-2022 End: 10-05-[address] SHALA OMER Facility:[facility]1 Start: 09-16-2022 Rx Renewal Toby Quintana Work Phone: [facility] 250 DO Work Phone: Start: 07-24-2022 End: 07-24-[address] TOBY QUINTANA Facility:[facility]1 Start: 07-22-2022 End: 07-22-[address] LAUREL BRAVO Facility:[facility]1 Start: 04-18-2022 Encounter for genera l adult medical examination without abnormal findings DR TOBY QUINTANA [facility] Start: 04-13-2022 End: 04-14-[address] TOBY QUINTANA Facility:[facility]1 Start: 04-12-2022 End: 04-13-[address] TOBY QUINTANA Facility:[facility]1 Start: 04-12-2022 End: 04-13-2022 Encounter for general adult medical examination without abnormal findings DR TOBY QUINTANA Facility:[facility]1 Start: 09-04-2021 FUV, Provider: Iban Torrez, Status: Pen, Time: 2:00 PM Toby Quintana Work Phone: [facility] [address] [place] Work Phone: Start: 09-04-2021 Office outpatient vi sit 25 minutes Toby Quintana Work Phone: [facility] 250 DO Work Phone: Start: 08-30-2021 Rx Renewal Toby Quintana Work Phone: [facility] [address] [place] Work Phone: Procedures Date Procedure Procedure Detail Performing Clinician Start: 01-08-2023 Plain X-ray of left hip MD Toby Quintana Work Phone: Start: 11-22-2022 X-ray of lumbar spin e, four views MD Toby Quintana Work Phone: Start: 11-22-2022 Plain x-ray of pelvi s and lower extremity MD Toby Quintana Work Phone: Start: 09-10-2016 Screening mammography Poli Quintana Other Start: 12-01-2013 General examination of patient Toby Quintana Other Cholecystectomy Toby E Bra un Work Phone: Hysterectomy Toby Quintana Work Phone: Procedure on back Toby Scohfield B raun Work Phone: Plan of Treatment Date Care Activity Detail Author Start: 12-09-2024 End: 12-09-2024 Patient encounter procedure 12/09/2024 9:00 AM EST Office Visit [facility] [address] [address] Iban Torrez MD [address]03 [facility] [address] [place] [address] [facility] Start: 12-09-2023 End: 12-09-2024 Basic metabolic 2000 panel - Serum or Plasma Basic Metabolic Panel Lab Routine Supraventricular tachycardia by ECG Palpitations Expected: 12/09/2023 (Approximate), Expires: 12/09/2024 [facility] Service Area Work Phone: Comment on above: Expected: 12/09/2023 (Approximate), Expires: 12/09/2024 Start: 12-09-2023 FUV, Provider: Iban Torrez, Status: Pen, Time: 10:00 AM FUV, Provider: Iban Torrez, Status: Pen, Time: 10:00 AM [facility] 250 DO Work Phone: Start: 07-11-2023 COVID-19 Vaccine ( season) COVID-19 Vaccine ( season) [facility] Start: 07-11-2023 Influenza vaccination Influenza Vacc ine (#1) [facility] Start: 09-20-2022 FUV, Provider: Iban Torrez, Status: Pen, Time: 2:20 PM FUV, Provider: Iban Torrez, Status: Pen, Time: 2:20 PM [facility] 250 DO Work Phone: Start: 09-05-2022 FUV, Provider: Iban Torrez, Status: Pen, Time: 11:20 AM FUV, Provider: Iban Torrez, Status: Pen, Time: 11:20 AM [facility] 250 DO Work Phone: Start: 01-19-2006 Zoster Vaccines (1 o f 2) Zoster Vaccines (1 of 2) [facility] Start: 1996 Screening for malignant neoplasm of breast Mammogram [facility] Start: 01-19-1978 DTaP/Tdap/Td Vaccine s (1 - Tdap) DTaP/Tdap/Td Vaccines (1 - Tdap) [facility] Start: 01-19-1974 Hepatitis C screening Hepatitis C Sc reening [facility] Start: 01-19-1962 Pneumococcal Vaccine : 65+ Years (1 - PCV) Pneumococcal Vaccine: 65+ Years (1 - PCV) [facility] Start: 1956 Lipid panel Lipid Panel [facility] Start: 1955 Medicare Annual Wellness Visit Medicare Annual Wellness Visit (AWV) [facility] Start: 1955 Screening for malignant neoplasm of colon [facility] Start: 1955 Screening for osteoporosis Bone Density Scan [facility] Immunizations Immunization Date Immunization Notes Care Provider Fa cili 09-06-2022 Pfizer COVID-19 Vac Bivalent 30 MCG/0.3ML Intramuscular Suspension Toby Quintana Work Phone: [facility] 250 DO Work Phone: 07-02-2021 Pfizer-BioNTech COVID-19 Vacc 30 MCG/0.3ML Intramuscular Suspension Toby Quintana Work Phone: [facility] Comment on above: Series: 06-11-2021 Pfizer-BioNTech COVID-19 Vacc 30 MCG/0.3ML Intramuscular Suspension Toby Quintana Work Phone: [facility] Comment on above: Series: 09-12-2014 tetanus and diphther ia toxoids, adsorbed, preservative free, for adult use (5 Lf of tetanus toxoid and 2 Lf of diphtheria toxoid) Toby Quintana Other [facility] Other 09-15-2013 tetanus and diphther ia toxoids, adsorbed, preservative free, for adult use (5 Lf of tetanus toxoid and 2 Lf of diphtheria toxoid) Toby Quintana Other [employer] Other 09-14-2013 influenza, seasonal, injectable Toby Quintana Work Phone: [facility] 09-14-2013 influenza virus vaccine, unspecified formulation Iban Torrez MD Work Phone: [facility] Work Phone: 08-10-2013 influenza virus vaccine, unspecified formulation Toby Quintana Work Phone: [facility] 250 DO Work Phone: 07-19-2012 influenza virus vaccine, unspecified formulation Toby Quintana Work Phone: [facility] 250 DO Work Phone: 11-10-2009 influenza virus vaccine, unspecified formulation Toby Quintana Work Phone: [facility] 250 DO Work Phone: 08-10-2009 influenza virus vaccine, unspecified formulation Toby Quintana Work Phone: [facility] 250 DO Work Phone: 07-14-2007 pneumococcal polysaccharide vaccine, 23 valent Toby Mariano Other [facility] [employer] Other Payers Date Payer Category Payer Medicare [id number] 2023 Medicare [employer] MEDICARE A ETNA MEDICARE VALUE PLAN [id number] 2023-Present [address] [place] [address] [id number] 2022 Self-pay [id number] 1959 Unknown [id number] 1959 Unknown [id number] 2.16.8 [id number] 1956 Unknown [id number] 1956 Unknown [id number] 1956 Unknown [id number] 1956 Unknown [id number] 1956 Unknown [id number] 1956 Unknown [id number] [id number] 1956 Unknown [id number] [id number] 1956 Unknown [id number] [id number] 1956 Unknown [id number] [id number] 1956 Unknown [id number] Unknown Unknown HCAP/HFA/FAP Active [id number] Unknown [id number] Unknown [id number] Social History Date Type Detail Facility Start: 12-09-2023 No illicit drug use No illicit drug use [place] [id number] Work Phone: Comment on above: Coffee 1 cup daily; quit 1987; Start: 1955 Sex Assigned At Female F [facility] Start: 12-09-2023 Sex Assigned At N [facility] [employer] Other Start: 12-09-2023 Tobacco smoking status ILIS Ex-smoker [facility] Work Phone: History of tobacco use Current smoker [facility] Work Phone: History of tobacco use Cigarette Smoker [facility] Work Phone: Start: 12-09-2023 Tobacco use and exposure Smokeless tobacco non-user [facility] Work Phone: Start: 12-09-2023 Alcohol intake Lifetime non-d mary (finding) [facility] Work Phone: Start: 1955 [facility]: Start: 11-29-2023 End: 12-09-2023 Exposure to SARS-CoV-2 (event) Not sure [facility] Clinical Notes 11-22-2022 to 12-17-2023 Note Date & Type Note Facility 12-17-2023 Evaluation note Encounter Date Diagnosis Assessment Notes Dec, Jaw swelling (ICD-10 - R22.0) [facility] Other 02-06-2024 Evaluation note* Encounter Date Diagnosis Assessment Notes Treatment Notes Treatment Clinical Notes Dec, Dental infection (ICD-10 - K04.7) Pt will contact her insurance, find a different dentist. Will continue antibiotic at this time. [facility] Other 01-30-2024 History of Present illness Narrative* Iban Torrez MD - 12/09/2023 10:00 AM EST Tatyana Dinero is a 68 y.o. female Chief Complaint Annual Exam HPI Patient is in the office for follow-up for the problems noted below. She has not had any cardiac events since her last visit, denies any chest pain dyspnea orthopnea PND or lower extremity edema. Sheis on atenolol which has kept her tachyarrhythmias under control. She seem to have significant stress at home with the recently retired and issues with her divorce daughter. She has chronic pain in her back and neck and utilizes injections and ablation procedures by pain management team. ASSESSMENT AND PLAN: 1. Supraventricular tachycardia, on beta-anahi therapy using atenolol, well tolerated, no recurrences. 2. August 2019 nuclear stress test normal, July 2019 echocardiogram normal 3. Chronic lower extremity pain and numbness limiting daily activities to large extent 4-class II obesity, the patient's orthopedic problems gets in the way of weight loss. 5-patient is at risk for falls, education was provided to prevent future falls. Annual follow-up will be scheduled Iban Torrez MD, [facility] Review of Systems Cardiovascular: Positive for palpitations. Respiratory: Positive for shortness of breath. Neurological: Positive for dizziness. All other systems reviewed and are negative. Visit Vitals BP 130/80 Pulse 68 Ht 1.676 m (5' 6 ) Wt 110 kg (242 lb) BMI 39.06 kg/m Smoking Status Former BSA 2.26 m Objective Physical Exam Constitutional: Appearance: Normal appearance. She is normal weight. HENT: Nose: Nose normal. Neck: Vascular: No carotid bruit. Cardiovascular: Rate and Rhythm: Normal rate. Pulses: Normal pulses. Heart sounds: Normal heart sounds. Pulmonary: Effort: Pulmonary effort is normal. Abdominal: General: Bowel sounds are normal. Palpations: Abdomen is soft. Genitourinary: Rectum: Normal. Musculoskeletal: General: Normal range of motion. Cervical back: Normal range of motion. Right lower leg: No edema. Left lower leg: No edema. Skin: General: Skin is warm and dry. Neurological: General: No focal deficit present. Mental Status: She is alert. Psychiatric: Mood and Affect: Mood normal. Behavior: Behavior normal. Thought Content: Thought content normal. Judgment: Judgment normal. Current Medications Current Outpatient Medications: ALPRAZolam (Xanax) 1 mg tablet, Take 1 tablet (1 mg) by mouth 3 times a day as needed., Disp: , Rfl: atenolol (Tenormin) 50 mg tablet, TAKE 1 TABLET BY MOUTH EVERY MORNING then TAKE 1/2 (ONE-HALF) OF A TABLET IN THE EVENING, Disp: 225 tablet, Rfl: 0 omega 9-ncd-zwc-fish oil 360 mg-108 mg- 180 mg-1,200 mg capsule, Take 1 capsule by mouth once daily., Disp: , Rfl: oxyCODONE (Oxy-IR) 5 mg immediate release capsule, Take 1 capsule (5 mg) by mouth every 6 hours if needed for severe pain (7 - 10)., Disp: , Rfl: Assessment/Plan 1. Supraventricular tachycardia by ECG Basic Metabolic Panel Follow Up In Cardiology Basic Metabolic Panel 2. Mixed hyperlipidemia 3. Palpitations Basic Metabolic Panel Basic Metabolic Panel 4. Class II obesity Scribe Attestation By signing my name below, I, [email or web address] , Scribe attest that this documentation has been prepared under the direction and in the presence of Iban Torrez MD. [facility] Work Phone: 1(636) 825-279401-30-2024 Instructions* Patient Instructions* Nataliya Manning LPN - 12/09/2023 10:00 AM EST Please bring all medicines, vitamins, and herbal supplements with you when you come to the office. Prescriptions will not be filled unless you are compliant with your follow up appointments or have a follow up appointment scheduled as per instruction of your physician. Refills should be requested at the time of your visit. Lab work Follow up one year [facility] Work Phone: [phone] 244-621312-12-2023 Evaluation note* Encounter Date Diagnosis Assessment Notes Treatment Notes Treatment Clinical Notes Oct, Open fracture of tooth, initial encounter (ICD-10 - S02.5XXB) Keep area clean, brush and rinse frequently. seeing dentist next week. Oct, Lumbar radiculitis (ICD-10 - M54.16) pt requests refill for her chronic back issues. We discussed her treatment plan w Dr. Byers. [facility] Other 11-16-2023 Evaluation note* Encounter Date Diagnosis Assessment Notes Treatment Notes Treatment Clinical Notes Sep, Lumbar radiculitis (ICD-10 - M54.16) CHanged pain med. Jax will call Dr. Byers's office for a change in treatment plan and an appt. Sep, Nausea & vomiting (ICD-10 - R11.2) States that zofran has not helped in the past - phenergan sent in for short term use. [facility] Other 11-13-2023 Evaluation note* Encounter Date Diagnosis Assessment Notes Treatment Notes Treatment Clinical Notes Sep, Radiculopathy, lumbar region (ICD-10 - M54.16) My staff reviewed her case with Dr. Byers's staff. She is to call their office for follow-up appointment next month. Patient does not want another injection and would rather have an ablation. Trial of tramadol sent to pharmacy. OARRS reviewed. [facility] Other 10-11-2023 Evaluation note* Encounter Date Diagnosis Assessment Notes Treatment Notes Treatment Clinical Notes Aug, Pain in right knee (ICD-10 - M25.561) Aug, Other chronic pain (ICD-10 - G89.29) Aug, Pain in left knee (ICD-10 - M25.562) [facility] Other 03-31-2023 Evaluation note* Encounter Date Diagnosis Assessment Notes Treatment Notes Treatment Clinical Notes Jan, Nausea & vomiting (ICD-10 - R11.2) Jan, Pain in right knee (ICD-10 - M25.561) Jan, Other chronic pain (ICD-10 - G89.29) Jan, Pain in left knee (ICD-10 - M25.562) [facility] Other 03-31-2023 Evaluation note* Encounter Date Diagnosis Assessment Notes Treatment Notes Treatment Clinical Notes Jan, Nausea & vomiting (ICD-10 - R11.2) chronic problem - requesting refill on Zofran Jan, Pain in right knee (ICD-10 - M25.561) Jan, Other chronic pain (ICD-10 - G89.29) Jan, Pain in left knee (ICD-10 - M25.562) [facility] Other 03-01-2023 Evaluation note* Encounter Date Diagnosis Assessment Notes Treatment Notes Treatment Clinical Notes Jan, Left hip pain (ICD-10 - M25.552) Jan, Lumbar back pain (ICD-10 - M54.50) Jan, SI (sacroiliac) pain (ICD-10 - M53.3) Jan, Other I had a long discussion with the patient today regarding the etiology of her pain. I explained to her that her x-rays to me look fairly well-preserved from a hip arthritis standpoint. I did explain that she may have some early arthritis off of her acetabulum but overall the joint looks fairly well-preserved. Furthermore I explained she is not really having symptoms in my opinion that are consistent with hip arthritis. Her symptoms and physical exam in my opinion are more SI joint and muscular related. As a result, I recommended that she see pain management. She would prefer to stay close to [place]. Our office is working to get her referral to pain management near [place]. [facility] Other 01-31-2023 Evaluation note* Encounter Date Diagnosis Assessment Notes Treatment Notes Treatment Clinical Notes Nov, Lumbar pain (ICD-10 - M54.50) [facility] Other 01-13-2023 Evaluation note* Encounter Date Diagnosis Assessment Notes Treatment Notes Treatment Clinical Notes Nov, Low back pain, unspecified back pain laterality, unspecified chronicity, unspecified whether sciatica present (ICD-10 - M54.50) [facility] Other evalnebssy noteNo assessment information available [facility] Work Phone: Evaluation noteNo InformationNort [employer] Other evaluation [facility] [employer] Other Evaluation note* Diagnosis Supraventricular tachycardia by ECG- Primary Mixed hyperlipidemia Palpitations Class II obesity documented in this encounter [facility] Work Phone: History general Narrative - Reported* Type Description Date Medical History hyperlipidemia Medical History palpitations (SVT - s/p ablation ) Medical History edema Medical History dyspnea Medical History varicose veins Medical History leg pain and swelling Medical History asthma Medical History osteoporosis Medical History skin cancer (lip) Medical History Back problems Medical History Arthritis Medical History migraine headache Medical History obesity Medical History chronic depression Medical History anxiety Surgical History hand surgery X 6 Surgical History Procedure:Gallbladder;Disease: Surgical History hysterectomy Surgical History Procedure:Rib Resection;Disease : Surgical History cholecystectomy Surgical History Procedure:Hysterectomy;Disease: Surgical History heart ablation Surgical History Procedure:Hand Surgery;Disease: RIGHT x 6 Surgical History back surgery X 2 Surgical History Procedure:Back surgery x 2 - kevin mbar fusion;Disease: Surgical History left and right rib resection Surgical History spinal fusion 2014 Surgical History Heart ablation Surgical History Hand Sx Surgical History Thoracic Sx Hospitalization History childbirth Hospitalization History hysterectomy Hospitalization History pancreatitis [place] [employer] Other History general Narrative - ReportedN[facility] [employer] Other Reason for referral (narrative)* Consultation (Routine) - Authorized Specialty Diagnoses / Procedures Referred By Luma mccarthy Referred To Contact Cardiology Diagnoses Supraventricular tachycardia by ECG Procedures Follow Up In Cardiology Iban Torrez MD [address] [place] [address] [address] [address] Iban Torrez MD [address] [place] [address] [address] [address] Referral ID Status Reason Start Date Expiration Date V isits Requested Visits Authorized [id number] Authorized 12/09/2023 12/08/2024 1 1 [facility] Work Phone: Reason for visit NarrativePain Medicine Referral UpdatePenney [place]ms [employer] Other Summary Purpose Family History Unknown Family Member Name Dates Details Family history of arterioscl erotic cardiovascular disease: Father, Brother(V17.49, Z82.49) Status:Active Unknown Family Member Name Dates Details Family history of arterioscl erotic cardiovascular disease: Father, Brother(V17.49, Z82.49) Status:Active Unknown Family Member Name Dates Details Family history of arterioscl erotic cardiovascular disease: Father, Brother(V17.49, Z82.49) Status:Active Unknown Family Member Name Dates Details Family history of arterioscl erotic cardiovascular disease: Father, Brother(V17.49, Z82.49) Status:Active Unknown Family Member Name Dates Details Family history of arterioscl erotic cardiovascular disease: Father, Brother(V17.49, Z82.49) Status:Active Unknown Family Member Name Dates Details Family history of arterioscl erotic cardiovascular disease: Father, Brother(V17.49, Z82.49) Status:Active Advance Directives Advance Directive Response Recorded Date/ Time Advance Directives No March 24 3:29pm Procedure Findings Note Patient: ADRIANA DINERO I MR N: [id number] Age: 65 years Sex: Female : 1955 Associated Diagnoses: None Author: Elliot Tena Jr, DO Postoperative Information Post Operative Note: Post Anesthesia Care Unit. Anesthetic utilized: Monitored anesthesia care. Health Status Allergies: Allergic Reactions (Selected) Severity Not Documented Sulfa drugs- Rash. Problem list: No problem items selected or recorded. Physical Examination Vital Signs 05/01/2020 8:35 EDT Heart Rate Monitored 74 bpm Respiratory Rate Monitored 28.0 br/min Systolic Blood Pressure 108 mmHg Diastolic Blood Pressure 70 mmHg Blood Pressure Location Left arm SpO2 96 % 05/01/2020 8:30 EDT Heart Rate Monitored 77 bpm Respiratory Rate Monitored 25.0 br/min Systolic Blood Pressure 130 mmHg Diastolic Blood Pressure 71 mmHg Blood Pressure Location Left arm SpO2 97 % 05/01/2020 8:27 EDT Temperature Temporal Artery 36.5 DegC Heart Rate Monitored 81 bpm Respiratory Rate Monitored 12.0 br/min Systolic Blood Pressure 128 (more content not included)... Chief Complaint * ADRIANA DINERO is being seen for an annual follow-up of. * Patient is in the office for follow-up for SVT with no recurrences since her last visit a year ago.She has been on beta-anahi therapy which has been well-tolerated. Her main problem seems to be orthopedic with back problem with no surgery possible and knee problems and surgeons refusing to operate. Her weight remains a problem due to her inability to exercise. She denies any breakthrough cardiac arrhythmias and has no shortness of breath. She has had no side effect of medications. Apart fromobesity physical examination was normal * ASSESSMENT AND PLAN: * 1. Supraventricular tachycardia, on beta-anahi therapy using atenolol, well tolerated, no recurrences. * 2. August 2019 nuclear stress test normal, July 2019 echocardiogram normal * 3. Chronic lower extremity pain and numbness limiting daily activities to large extent * 4 significant obesity, the patient's orthopedic problems gets in the way of weight loss. * Annual follow-up will be scheduled * Iban Torrez MD, [facility] * ADRIANA DINERO is being seen for an annual follow-up of. * Patient is in the office for follow-up for the problems noted below. She had a fall last night and education was provided for prevention of future falls. The problem is her ambulation difficulties using the walker and her muscular disease and neuropathy. Cardiac reeder she has had no further cardiac a rrhythmias on atenolol. Review of system essentially unremarkable her weight has dropped several pounds from last visit which is encouraging. Her lab data from recent testing were reviewed and presently no need for change in her medication was felt to be necessary. She asked for referral to rheumatology for muscular disease and provided the patient with 2 local contact person in [facility]. * ASSESSMENT AND PLAN: * 1. Supraventricular tachycardia, on beta-anahi therapy using atenolol, well tolerated, no recurrences. * 2. August 2019 nuclear stress test normal, July 2019 echocardiogram normal * 3. Chronic lower extremity pain and numbness limiting daily activities to large extent * 4 significant obesity, the patient's orthopedic problems gets in the way of weight loss. * 5 patient is at risk for falls, education was provided to prevent future falls. 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 urosurgery Referring Provider First Name Leeann Referring Provider Last Name Mariano Referring Provider Specialty Neurologica l Surgery Referred Organization [facility] Referred Provider Albertina Oconnell Referred Address [address] [place], [place],[address] Referred Provider Specialty Pain Medicin e Referral Priority Routine Referral Appointment Date 2023-01-21 General Notes Klaudia Golden 023 09:03:40 AM >Received today and waiting for office notes to be locked before [facility] 07:37:06 AM >Referral was fax Klaudia Golden 01/08/2023 09:26:41 AM >Referral was refax to the correct office with their form Phillips-IselaMarthaTrini 01/08/2023 02:11:33 PM >received letter, pt has appt scheduled for 01/21/2023 Clinical Notes Phone: Reason 01/08/23 @ 10:00am Evaluate and Treat Hip Pain Diagnosis 1 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 urosurgery Referring Provider First Name Leeann Referring Provider Last Name Mariano Referring Provider Specialty Neurologica l Surgery Referred Organization [facility] Referred Provider Samuel Chatman II Referred Address [address] [place],[address] Referred Provider Specialty Orthopaedic Surgery Referral Priority Routine Referral Appointment Date 2023-01-08 General Notes Klaudia Golden 023 10:20:34 AM >Received today and sent P2P Klaudia Golden 01/01/2023 12:05:35 PM >[facility]/15/2023 09:30:10 AM >Office notes not locked yet [facility] 01/16/2023 08:43:03 AM >Sent telephone encounter to referring physician to let them know that the consult letter is ready for their review Reason DECLINED lumbar an d knee pain Diagnosis 1 Lumbar pain (M54.50) Referral Organization [facility] Referring Provider First Name Toby Referring Provider Last Name Mariano Referring Provider Specialty Family Medi cine Referred Organization [facility] Referred Provider Paddy De Los Santos Referred Address [address] [facility] [place],[address] Referred Provider Specialty Rheumatology Referral Priority Routine General Notes Kathryn Crenshaw 02:32:15 PM >received today, notes attached, along with multiple testing attached, insurance card attached, referral faxed Kathryn Crenshaw 12/17/2022 09:06:39 AM >faxed first attempt letter Kathryn Crenshaw 12/18/2022 03:11:43 PM >awaiting doctor approval to schedule Kathryn Crenshaw 12/24/2022 10:56:11 AM >faxed second attempt letter Kathryn Crenshaw 12/25/2022 01:26:57 PM >received fax that pt can not be scheduled, will follow up with patient Kathryn Crenshaw 12/26/2022 01:22:19 PM >called patient to see if she wanted to be referred elsewhere, left detailed message. will follow up Kathryn Crenshaw 01/02/2023 02:05:36 PM >per patient she never wanted this referral. TE sent for review. Closing referral Clinical Notes Dr. Dixon CCKehinde? Additional Source Comments INFORMATION SOURCE (unrecogn ized section and content) DATE CREATED AUTHOR [facility] DATE CREATED AUTHOR AUTHOR'S ORGANIZ ATION 11/04/2019 [facility] DATE CREATED AUTHOR AUTHOR'S ORGANIZ ATION 05/31/2020 [facility] DATE CREATED AUTHOR AUTHOR'S ORGANIZ ATION 12/06/2020 [facility] DATE CREATED AUTHOR AUTHOR'S ORGANIZ ATION 04/21/2021 [facility] DATE CREATED AUTHOR AUTHOR'S ORGANIZ ATION 12/10/2022 [employer] DATE CREATED AUTHOR AUTHOR'S ORGANIZ ATION 01/10/2023 [facility] DATE CREATED AUTHOR AUTHOR'S ORGANIZ ATION 01/17/2023 [facility] DATE CREATED AUTHOR AUTHOR'S ORGANIZ ATION 03/18/2023 [facility] DATE CREATED AUTHOR AUTHOR'S ORGANIZ ATION 06/09/2023 [facility] DATE CREATED AUTHOR AUTHOR'S ORGANIZ ATION 12/12/2023 [facility] [employer] Teams (unrecognized sec tion and content) Team Status: Inactive Member Role Status Dates Toby Quintana MD Primary Care Provider Active Leeann Quintana Attending Provider Active Team Status: Active Member Role Status Dates Toby Quintana MD Primary Care Provider Active Team Status: Inactive Member Role Status Dates Toby Quintana MD Primary Care Provider Active Samuel Chatman II, MD Attending Provider Active Project Management Director Relationship Specialty Start Date End Date Toby Quintana MD PCP - General 08/25/19 Goals (unrecognized section and content) Goals may be documented in a n alternate sectionNo InformationNo InformationNo InformationGoals may be documented in an alternate sectionNo InformationNo InformationNo InformationNo InformationNo InformationNo InformationNo InformationNo InformationNo InformationNo InformationNo InformationNo InformationNo InformationNo InformationNo InformationNo InformationNo InformationNo InformationNo InformationNo InformationNo InformationNo InformationNo InformationNo InformationNo InformationNo InformationNo InformationNo InformationNo InformationNo InformationNo InformationNo InformationNo Information REASON FOR VISIT (unrecogniz ed section and content) refill Reason Comments Annual Exam 1yr FOR RECORDS PERTAINING TO PATIENTS WHO ARE OR HAVE BEEN ENROLLED IN A CHEMICAL DEPENDENCY/SUBSTANCEABUSE PROGRAM, SOME INFORMATION MAY BE OMITTED. This clinical summary was aggregated from multiple sources. Caution should be exercised in using it in the provision of clinical care. This summary normalizes information from multiple sources, and as a consequence, information in this document may materially change the coding, format and clinical context of patient data. In addition, data may be omitted in some cases. CLINICAL DECISIONS SHOULD BE BASED ON THE PRIMARY CLINICAL RECORDS. [employer] provides no warranty or guarantee of the accuracy or completeness of information in this document.
[2023-12-30 11:26] LABS: Basophils Absolute Auto 0.1 10^3/uL (0.0-0.1); Basophils Percent Auto 0.6 % (0.2-2.0); Eosinophils Absolute Auto 0.2 10^3/uL (0.0-0.7); Eosinophils Percent Auto 1.8 % (0.9-7.0); Hematocrit 46.8 % (36.0-48.0); Hemoglobin 14.7 g/dL (12.0-16.0); Immature Granulocytes Abs Auto 0.02 10^3/uL (0.00-0.03); Immature Granulocytes Pct Auto 0.2 % (0.0-0.5); Lymphocytes Absolute Auto 1.8 10^3/uL (1.2-3.8); Lymphocytes Percent Auto 20.4 % (20.5-60.0); Mean Corpuscular HGB Conc 31.4 g/dL (29.9-35.2); Mean Corpuscular Hemoglobin 28.6 pg (26.7-34.0); Mean Corpuscular Volume 91.1 fL (81.0-99.0); Mean Platelet Volume 9.3 fL (9.5-13.5); Monocytes Absolute Auto 0.7 10^3/uL (0.3-0.8); Monocytes Percent Auto 7.5 % (1.7-12.0); Neutrophils Percent Auto 69.5 % (43.0-75.0); Platelet Count 199 10^3/uL (150-450); Red Blood Count 5.14 10^6/uL (4.20-5.40); Red Cell Distribution Width 13.2 % (11.0-15.0); White Blood Count 8.7 10^3/uL (4.0-11.0)
[2023-12-30 12:20] LABS: Alanine Aminotransferase 23 U/L (14-59); Albumin Globulin Ratio 0.8; Alkaline Phosphatase 88 U/L (46-116); Anion Gap 11.4; Aspartate Amino Transferase 20 U/L (15-37); BUN Creatinine Ratio 12.5; Bilirubin Total 0.5 mg/dL (0.2-1.0); Calcium 9.2 mg/dL (8.5-10.1); Carbon Dioxide 31.1 mmol/L (21.0-32.0); Chloride 107 mmol/L (98-107); Chol HDL Ratio 3.9; Cholesterol 224 mg/dL (<=200); Estimated GFR (African America >60 (>=60); Estimated GFR (Non-African Ame >60 (>=60); Globulin 3.8 g/dL; Glucose 100 mg/dL (74-106); HDL Cholesterol 57 mg/dL (40-60); Potassium 4.5 mmol/L (3.5-5.1); Sodium 145 mmol/L (136-145); Thyroid Stimulating Hormone 2.655 uIU/mL (0.358-3.740); Total Protein 6.8 g/dL (6.4-8.2); Triglycerides 93 mg/dL (<=150); VLDL CHOLESTEROL 18.6 mg/dL
== END 2023-12-30 10:42 | disposition home or self-care (01) ==
LOC: LAB 10:44
PROVIDERS: PCP Family Medicine; Visit Provider Family Medicine
DX: R23.3 Spontaneous ecchymoses (principal); E78.5 Hyperlipidemia, unspecified; I47.10 Supraventricular tachycardia, unspecified
CPT/HCPCS: 36415; 80053; 80061; 84443; 85025

== ENCOUNTER 2024-01-14 17:00 | Emergency (ER) | payer MEDICARE, SELFPAY ==
[2024-01-14] VITALS (13 sets, daily range): BP systolic 157–165; BP diastolic 85–137; PULSE 71–91; RESP 14–24; TEMP 36.3; O2SAT 94–96; BMI 38.7
--- NOTE | 2024-01-14 17:17 | ECG_ITS ---
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
--- NOTE | 2024-01-14 17:18 | ED_ITS ---
Documented by User: SILVIO Crocker 01/14/24 20:26 HPI - Chest Pain General Chief Complaint: Chest Pain Stated Complaint: Chest Pain Time Seen by Provider: 01/14/24 17:04 Source: patient History of Present Illness HPI narrative: Patient is a 68-year-old female with a history of SVT and previous ablation done with [facility] heart cardiology, presents to the ER for chest discomfort and pain between the scapula for the last several days. She states she feels tight in her chest and is feeling more short of breath. She has had no fevers, chills, cough, congestion. She denies any history of coronary artery disease, she takes atenolol after her ablation for SVT. She does not take any medications for diabetes. She states she has not had a stress test or cardiac catheterization. She is not a smoker. She has chronic lower extremity swelling that is not worse or different. Risk Factors Coronary artery disease risk factors: hypertension Related Data Home Medications Medication Instructions Recorded Confirmed alprazolam 1 mg tablet 1 mg PO DAILY 05/16/23 01/14/24 atenolol 50 mg tablet 50 mg PO Q24H 05/16/23 01/14/24 oxycodone 5 mg tablet 5 mg PO DAILY 01/14/24 01/14/24 Allergies Allergy/AdvReac Type Severity Reaction Status Date / Time Sulfa (Sulfonamide Allergy Intermediate Verified 05/16/23 11:24 Antibiotics) Review of Systems ROS Constitutional Denies: fever or chills Ears, nose, mouth, and throat Denies: throat pain Cardiovascular Reports: chest pain Respiratory Reports: shortness of breath; Denies: cough Gastrointestinal Denies: nausea, vomiting or diarrhea Musculoskeletal Reports: back pain and extremity swelling; Denies: neck pain or extremity pain Integumentary/Breast Denies: rash Neurological Denies: headache Hematologic/Lymphatic Denies: easy bruising or easy bleeding PFSH [facility] Medical History (Updated 01/14/24 @ 20:23 by SILVIO Crocker) Tachycardia ?R00.0 - Tachycardia, unspecified (ICD-10) Surgical History (Updated 05/16/23 @ 12:28 by Margoth Armendariz) Previous back surgery ?Z98.890 - Other specified postprocedural states (ICD-10) History of cardiac radiofrequency ablation ?Z98.890 - Other specified postprocedural states (ICD-10) Social History Smoking status: Never smoker Exam Narrative Exam Narrative: Gen.: Awake, alert, in no distress Head: Normocephalic, atraumatic ENT: Moist mucous membranes Respiratory: No respiratory distress, lungs clear bilaterally; Tenderness of the sternum and posterior chest wall between the scapula with no ecchymosis, rashes Cardio: Regular rate and rhythm Gastrointestinal: Abdomen is soft, nondistended and nontender to palpation Extremities: Moves extremities equally Psych: Normal mood and affect Neuro: No focal neuro deficit Skin: Warm, dry, intact Constitutional Vital Signs, click to edit/add: Last Vital Signs Temp 97.4 F L 01/14/24 17:05 Pulse 77 01/14/24 20:00 Resp 15 01/14/24 20:00 BP 165/137 H 01/14/24 19:30 Pulse Ox 96 01/14/24 20:00 O2 Del Method Room Air 01/14/24 17:05 Course Vital Signs Vital signs: Vital Signs Temperature 97.4 F L 01/14/24 17:05 Pulse Rate 83 01/14/24 17:05 Respiratory Rate 20 01/14/24 17:05 Blood Pressure 165/116 H 01/14/24 17:05 Pulse Oximetry 96 01/14/24 17:05 Oxygen Delivery Method Room Air 01/14/24 17:05 Temperature 97.4 F L 01/14/24 17:05 Pulse Rate 77 01/14/24 20:00 Respiratory Rate 15 01/14/24 20:00 Blood Pressure 165/137 H 01/14/24 19:30 Pulse Oximetry 96 01/14/24 20:00 Oxygen Delivery Method Room Air 01/14/24 17:05 MDM - Chest Pain MDM Narrative Medical decision making narrative: Studies within normal limits although D-dimer was elevated so the patient was sent for CT angio of the chest which was unremarkable. Repeat troponin obtained, patient was reevaluated by attending physician prior to discharge. She is encouraged to watch her blood pressures at home, follow-up with cardiology and return to the emergency department if symptoms change or worsen. She appears well-hydrated and nontoxic with symptoms over the last several days. Medical Records Data Attestation: I reviewed the patient's medical records. Lab Data Labs: Lab Results 01/14/24 01/14/24 01/14/24 Range/Units 17:30 17:35 19:49 WBC 9.2 (4.0-11.0) 10^3/uL RBC 4.96 (4.20-5.40) 10^6/uL Hgb 14.1 (12.0-16.0) g/dL Hct 44.4 (36.0-48.0) % MCV 89.5 (81.0-99.0) fL MCH 28.4 (26.7-34.0) pg MCHC 31.8 (29.9-35.2) g/dL RDW 13.6 (11.0-15.0) % Plt Count 238 (150-450) 10^3/uL MPV 9.4 L (9.5-13.5) fL Neut % (Auto) 69.1 (43.0-75.0) % Lymph % (Auto) 20.3 L (20.5-60.0) % Rogers % (Auto) 8.5 (1.7-12.0) % Eos % (Auto) 1.3 (0.9-7.0) % Baso % (Auto) 0.5 (0.2-2.0) % Neut # (Auto) 6.3 (1.4-6.5) 10^3/uL Lymph # (Auto) 1.9 (1.2-3.8) 10^3/uL Rogers # (Auto) 0.8 (0.3-0.8) 10^3/uL Eos # (Auto) 0.1 (0.0-0.7) 10^3/uL Baso # (Auto) 0.1 (0.0-0.1) 10^3/uL Abs Immat Gran (auto) 0.03 (0.00-0.03) 10^3/uL Imm/Tot Granulo (auto) 0.3 (0.0-0.5) % PT 9.3 (9.0-11.6) sec INR <0.93 APTT 23.5 (22.3-36.2) sec D-Dimer 0.78 H* (<=0.59) mg/L FEU Sodium 141 (136-145) mmol/L Potassium 4.0 (3.5-5.1) mmol/L Chloride 109 H (98-107) mmol/L Carbon Dioxide 30.5 (21.0-32.0) mmol/L Anion Gap 5.5 BUN 10.0 (7.0-18.0) mg/dL Creatinine 0.77 (0.55-1.02) mg/dL Est GFR ( Amer) >60 (>=60) Est GFR (Non-Af Amer) >60 (>=60) BUN/Creatinine Ratio 13.0 Glucose 108 H (74-106) mg/dL Calcium 8.7 (8.5-10.1) mg/dL Total Bilirubin 0.4 (0.2-1.0) mg/dL AST 24 (15-37) U/L ALT 36 (14-59) U/L Alkaline Phosphatase 126 H (46-116) U/L Troponin I High Sens 6.6 6.8 (4.0-51.3) pg/mL NT-Pro-B Natriuret Pep 210.0 (<=900.0) pg/mL Total Protein 6.8 (6.4-8.2) g/dL Albumin 2.9 L (3.4-5.0) g/dL Globulin 3.9 g/dL Albumin/Globulin Ratio 0.7 Influenza Type A Ag Negative Influenza Type B Ag Negative SARS-CoV-2 Ag (CV2AG) Negative (NEGATIVE) Imaging Data CT scan - chest: Attestation: I have reviewed the pertinent imaging results. Radiologist's impression: ITS Impressions Chest CTA 01/14/24 18:35 IMPRESSION: No pulmonary embolism or acute abnormalities in chest. Electronically authenticated by: JA LONDON Date: 01/14/2024 19:39 Heart Score History: Slightly/Non-Suspicious ECG: Normal Age: >65 years Risk Factors: 1 or 2 Risk Factors Troponin: <Normal Limit Total Heart Score Recommendations & Risks:: 3 Discharge Plan Discharge Stand Alone Forms: Portal Instructions Chief Complaint: Chest Pain Clinical Impression: Chest pain Patient Disposition: Home, Self-Care Time of Disposition Decision: 20:23 Condition: Good Prescriptions / Home Meds: No Action alprazolam 1 mg tablet 1 mg PO DAILY atenolol 50 mg tablet 50 mg PO Q24H Rx Instructions: 25 mg in morning 50 mg at night; oxycodone 5 mg tablet 5 mg PO DAILY Instructions: Chest Pain (ED) Referrals: KEENAN LU [Physician] - 1 week Connie Stewart MD [Primary Care Provider] - 1 week Discharge Date/Time: 01/14/24 20:32 Documented by User: Denis Bullock MD 01/23/24 16:56 HPI - Chest Pain General Chief Complaint: Chest Pain Stated Complaint: Chest Pain Time Seen by Provider: 01/14/24 17:04 Related Data Home Medications Medication Instructions Recorded Confirmed alprazolam 1 mg tablet 1 mg PO DAILY 05/16/23 01/14/24 atenolol 50 mg tablet 50 mg PO Q24H 05/16/23 01/14/24 oxycodone 5 mg tablet 5 mg PO DAILY 01/14/24 01/14/24 Allergies Allergy/AdvReac Type Severity Reaction Status Date / Time Sulfa (Sulfonamide Allergy Intermediate Verified 05/16/23 11:24 Antibiotics) PFSH PFS Medical History (Updated 01/14/24 @ 20:23 by SILVIO Crocker) Tachycardia ?R00.0 - Tachycardia, unspecified (ICD-10) Surgical History (Updated 05/16/23 @ 12:28 by Margoth Armendariz) Previous back surgery ?Z98.890 - Other specified postprocedural states (ICD-10) History of cardiac radiofrequency ablation ?Z98.890 - Other specified postprocedural states (ICD-10) Social History Smoking status: Never smoker Exam Constitutional Vital Signs, click to edit/add: Last Vital Signs Temp 97.4 F L 01/14/24 17:05 Pulse 77 01/14/24 20:00 Resp 15 01/14/24 20:00 BP 165/137 H 01/14/24 19:30 Pulse Ox 96 01/14/24 20:00 O2 Del Method Room Air 01/14/24 17:05 Course Vital Signs Vital signs: Vital Signs Temperature 97.4 F L 01/14/24 17:05 Pulse Rate 83 01/14/24 17:05 Respiratory Rate 20 01/14/24 17:05 Blood Pressure 165/116 H 01/14/24 17:05 Pulse Oximetry 96 01/14/24 17:05 Oxygen Delivery Method Room Air 01/14/24 17:05 Temperature 97.4 F L 01/14/24 17:05 Pulse Rate 77 01/14/24 20:00 Respiratory Rate 15 01/14/24 20:00 Blood Pressure 165/137 H 01/14/24 19:30 Pulse Oximetry 96 01/14/24 20:00 Oxygen Delivery Method Room Air 01/14/24 17:05 MDM - Chest Pain MDM Narrative Medical decision making narrative: Studies within normal limits although D-dimer was elevated so the patient was sent for CT angio of the chest which was unremarkable. Repeat troponin obtained, patient was reevaluated by attending physician prior to discharge. She is encouraged to watch her blood pressures at home, follow-up with cardiology and return to the emergency department if symptoms change or worsen. She appears well-hydrated and nontoxic with symptoms over the last several days. I, Dr Bullock, have reviewed the above progress note and course of action in the ER; agree with the above. I have personally seen and evaluated this patient, gone over history and physical, and discussed disposition and treatment plan with the patient. Lab Data Attestation: I reviewed the patient's lab results. Labs: Lab Results 01/14/24 01/14/24 01/14/24 Range/Units 17:30 17:35 19:49 WBC 9.2 (4.0-11.0) 10^3/uL RBC 4.96 (4.20-5.40) 10^6/uL Hgb 14.1 (12.0-16.0) g/dL Hct 44.4 (36.0-48.0) % MCV 89.5 (81.0-99.0) fL MCH 28.4 (26.7-34.0) pg MCHC 31.8 (29.9-35.2) g/dL RDW 13.6 (11.0-15.0) % Plt Count 238 (150-450) 10^3/uL MPV 9.4 L (9.5-13.5) fL Neut % (Auto) 69.1 (43.0-75.0) % Lymph % (Auto) 20.3 L (20.5-60.0) % Rogers % (Auto) 8.5 (1.7-12.0) % Eos % (Auto) 1.3 (0.9-7.0) % Baso % (Auto) 0.5 (0.2-2.0) % Neut # (Auto) 6.3 (1.4-6.5) 10^3/uL Lymph # (Auto) 1.9 (1.2-3.8) 10^3/uL Rogers # (Auto) 0.8 (0.3-0.8) 10^3/uL Eos # (Auto) 0.1 (0.0-0.7) 10^3/uL Baso # (Auto) 0.1 (0.0-0.1) 10^3/uL Abs Immat Gran (auto) 0.03 (0.00-0.03) 10^3/uL Imm/Tot Granulo (auto) 0.3 (0.0-0.5) % PT 9.3 (9.0-11.6) sec INR <0.93 APTT 23.5 (22.3-36.2) sec D-Dimer 0.78 H* (<=0.59) mg/L FEU Sodium 141 (136-145) mmol/L Potassium 4.0 (3.5-5.1) mmol/L Chloride 109 H (98-107) mmol/L Carbon Dioxide 30.5 (21.0-32.0) mmol/L Anion Gap 5.5 BUN 10.0 (7.0-18.0) mg/dL Creatinine 0.77 (0.55-1.02) mg/dL Est GFR ( Amer) >60 (>=60) Est GFR (Non-Af Amer) >60 (>=60) BUN/Creatinine Ratio 13.0 Glucose 108 H (74-106) mg/dL Calcium 8.7 (8.5-10.1) mg/dL Total Bilirubin 0.4 (0.2-1.0) mg/dL AST 24 (15-37) U/L ALT 36 (14-59) U/L Alkaline Phosphatase 126 H (46-116) U/L Troponin I High Sens 6.6 6.8 (4.0-51.3) pg/mL NT-Pro-B Natriuret Pep 210.0 (<=900.0) pg/mL Total Protein 6.8 (6.4-8.2) g/dL Albumin 2.9 L (3.4-5.0) g/dL Globulin 3.9 g/dL Albumin/Globulin Ratio 0.7 Influenza Type A Ag Negative Influenza Type B Ag Negative SARS-CoV-2 Ag (CV2AG) Negative (NEGATIVE) Imaging Data CT scan - chest: Radiologist's impression: ITS Impressions Chest CTA 01/14/24 18:35 IMPRESSION: No pulmonary embolism or acute abnormalities in chest. Electronically authenticated by: JA LONDON Date: 01/14/2024 19:39 ECG Data Attestation: I personally reviewed and interpreted this ECG as follows: (EKG interpretation. Normal sinus rhythm at 77 beats a minute. Normal axis deviation. QTc of 428. artifact noted. Multiple EKGs were done, this was the best of 3 EKGs we could see and evaluate.) Heart Score Total Heart Score Recommendations & Risks:: 3 Discharge Plan Discharge Stand Alone Forms: Portal Instructions Chief Complaint: Chest Pain Clinical Impression: Chest pain Patient Disposition: Home, Self-Care Time of Disposition Decision: 20:23 Condition: Good Prescriptions / Home Meds: No Action alprazolam 1 mg tablet 1 mg PO DAILY atenolol 50 mg tablet 50 mg PO Q24H Rx Instructions: 25 mg in morning 50 mg at night; oxycodone 5 mg tablet 5 mg PO DAILY Instructions: Chest Pain (ED) Referrals: KEENAN LU [Physician] - 1 week Connie Stewart MD [Primary Care Provider] - 1 week Discharge Date/Time: 01/14/24 20:32
--- OUTSIDE RECORDS SUMMARY | 2024-01-14 17:20 | XMS_ITS | CCD ---
Author Name Unknown Address [address] [facility] [address] [place] [address] Organization [facility] Care Team Providers Care Director Of Contracts Name Role Phone Toby Quintana Unavailable Unavailable Unavailable MD Toby Quintana Primary Care Provider Leeann Quintana Attending Provider Unavailable Unavailable Leeann Quintana Unavailable DR SHALA [...] Unavailable QUINTANA, DR TOBY Schofield Admitting Unavailable WEST, DR CAITLYN Noe Consulting Unavailable QUINTANA, DR TOBY Schofield Attending Unavailable QUINTANA, DR TOBY Schofield Primary Care Unavailable QUINTANA, DR TOBY Schofield Consulting Unavailable REINECK, DR LAUREL Banks Admitting Unavailabl e QUINTANA, DR TOBY Schofield Primary Care Unavailable REINECK, DR LAUREL Banks Attending Unavailabl e REINECK, DR LAUREL Banks Consulting Unavailabl e QUINTANA, DR TOBY Schofield Primary Care Unavailable LEEANN QUINTANA Referring Unavailable LAKSHMIPATHY ., NARABBEYATH Admitting Nanda vailable LAKSHMIPATHY ., LASHONDA Attending Nanda vailable QUINTANA, DR TOBY Schofield Admitting Unavailable QUINTANA, DR TOBY Schofield Primary Care Unavailable QUINTANA, DR TOBY Schofield Attending Unavailable QUINTANA, DR TOBY Schofield Consulting Unavailable Toby Quintana Unavailable MD Samuel Chatman II Attending Provider BladesLeeann Admitting Unavailable Leeann Quintana Attending Unavailable Toby Quintana Primary Care Unavailable Samuel Chatman II Admitting UnavailSamuel Dubois II Attending UnavailToby Swain Primary Care Unavailable Samuel Chatman II Unavailable ZEESHAN, Dr. AGUSTIN Henning Attending Unavailable Toby Quintana Primary Care Unavaildidier Quintana, Dr. Toby Feliz Primary Care Unav ailable Lore, Dr. Iban Penn Referring Nanda Quintana, Dr. Toby Feliz Primary Care Unav ailable Lore, Dr. Iban Penn Attending Toby Romano MD Primary Care Provider IBAN LU Attending Unavailable TOBY QUINTANA Primary Care Unavailable Allergies Allergy Classification Reported Allergen(s) Allergy Type Date of Onset Reaction(s) Facility (6 sources) Sulfamethoxazole; Translations: [sulfa] Drug Allergy Rash, Swelling [address] Work Phone: (6 sources) Sulfonamides (Antibiotic); Translations: [Sulfa (Sulfonamide Antibiotics)] Allergy to substance 04-08-20 19 Hives, Rash[facility] (20 sources) Sulfacetamide / Sulfur Drug Allergy rash [facility] Other (1 source) Morphine Drug Allergy [facility] (1 source) Quinolones (Antibiotic) Drug allergy (disorder) [facility] (2 sources) Sulfonamides (Antibiotic) Drug allergy (disorder) 08-06-20 13 [facility] (12 sources) Acetaminophen / oxyCODONE Drug Allergy 07-28-20 13 Unknown [facility] Other (12 sources) Meperidine Drug Allergy 07-28-20 13 Unknown [facility] Other (13 sources) Quinolones Drug allergy 07-28-20 13 Comment:Fluorq uinolones [facility] Other (13 sources) sulfADIAZINE Drug Allergy Unknown [facility] Other (13 sources) Substance with sulfonamide structure and antibacterial mechanism of action (substance) Drug allergy 07-28-20 13 Unknown [facility] Other (13 sources) Statins Depletion *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 Propensity to adverse reactions 07-28-20 13 Unknown [facility] Other (4 sources) Allergies Reconciled Propensity to adverse reactions Unknown [facility] Other (4 sources) patient allergy list reviewed by nurse or physicia Propensity to adverse reactions 07-15-20 Comment:Done [facility] Other (1 source) Acetaminophen / oxyCODONE Drug Allergy 07-28-20 13 Unknown [facility] Other (1 source) Meperidine Drug Allergy 07-28-20 13 Unknown [facility] Other (1 source) Sulfacetamide Drug Allergy 12-30-19 24 [facility] Medications Current Medications Medication Drug Class(es) Dates Sig (Normalized) Sig (Original) acetaminophen 325 mg / HYDROcodone bitartrate 5 mg oral tablet (20 sources) Opioid Agonist Start: 08-31-2021 End: 12-09-2023 take 1 tablet by mouth every four hours as needed HYDROcodone-acetami nophen ([place]) 5-325 mg tablet Take 1 tablet by mouth every 4 hours if needed. 0 08/31/2021 12/09/2023 Discontinued (Therapy completed) Start: 08-31-2021 HYDROcodone-Ac etaminophen 5-325 MG Oral Tablet Quantity: 120 Refills: 0 Ordered: 31-Aug-2021 DO Start : 31-Aug-2021 Active take 1 tablet by valentin th every six hours HYDROcodone-Acetaminophen 5-325 MG take 1 tablet by mouth every 6 hours if needed Oral for 30 Days Active acetaminophen 325 mg / oxyCODONE hydrochloride 5 mg oral tablet (1 source) Opioid Agonist Start: 12-30-2023 take 1 tablet by mouth every four hours Oxycodone-Acetaminophen Active 1 TAB PO Every 4 hours December 30, 2023 12:00am albuterol 0.83 mg/ml inhalation solution (5 sources) beta2-Adrenergic Agonist Albuterol Sulfate (2 .5 MG/3ML) 0.083% 3 mL as needed Inhalation every 6 hrs Active ALPRAZolam 1 mg oral tablet (20 sources) Benzodiazepine Start: 12-08-2023 take 1 tablet by mouth twice daily [...] ANXIETY AND 2 TABLETS AT BEDTIME for Oct, Active Start: 09-10-2023 take 1 tablet by valentin th twice daily for anxiety, then take 2 tablets by mouth at bedtime for anxiety ALPRAZolam 1 MG TAKE 1 TABLET BY MOUTH TWICE A DAY IF NEEDED FOR ANXIETY AND 2 TABLETS AT BEDTIME for Sep, Active Start: 08-04-2023 take 1 tablet by valentin th twice daily for anxiety, then take 2 tablets by mouth at bedtime for anxiety ALPRAZolam 1 MG TAKE 1 TABLET BY MOUTH TWICE A DAY IF NEEDED FOR ANXIETY AND 2 TABLETS AT BEDTIME for Jul, Active Start: 05-12-2023 take 1 tablet by valentin th twice daily for anxiety, then take 2 tablets by mouth at bedtime for anxiety ALPRAZolam 1 MG TAKE 1 TABLET BY MOUTH TWICE A DAY IF NEEDED FOR ANXIETY AND 2 TABLETS AT BEDTIME for May, Active Start: 04-11-2023 Start: 02-17-2023 take [...] oral tablet (20 sources) beta-Adrenergic Anahi Start: 08-30-2021 take 0.5 tablet by mouth twice daily Atenolol 50 MG Oral Tablet TAKE 1/2 TABLET TWICE DAILY Quantity: 90 Refills: 3 Ordered: 22-May-2023 Iban Lu MD Start : 30-Aug-2021 Active decreased Start: 04-08-2019 take 25 mg by mouth once daily Atenolol Active 25 MG PO Daily April 07, 2019 11:00pm Start: 04-08-2019 take 1 tablet by valentin th once daily in the morning, then take 0.5 tablet by mouth in the evening atenolol (Tenormin) 50 mg tablet Indications: Supraventricular tachycardia by ECG , Palpitations TAKE 1 TABLET BY MOUTH EVERY MORNING then TAKE 1/2 (ONE-HALF) OF A TABLET IN THE EVENING 225 tablet 0 12/08/2023 Active Fish Oil-Krill Oil - (2 sources) Fish Oil-Krill O il - as directed Orally Active 120 actuat fluticasone propionate 0.23 mg/actuat / salmeterol 0.021 mg/actuat metered dose inhaler (5 sources) Corticosteroid, beta2-Adrenergic Agonist take 2 puff(s) by inhalation twice daily Advair HFA 230-21 MCG/ACT 2 puffs Inhalation Twice a day Active omega 1-ukr-rrf-fish oil 360 mg-108 mg- 180 mg-1,200 mg capsule (1 source) take 1 capsule by mouth once daily omega 5-sql-avt-fish oil 360 mg-108 mg- 180 mg-1,200 mg capsule Take 1 capsule by mouth once daily. 0 Active ondansetron 4 mg disintegrating oral tablet (5 sources) Serotonin-3 Receptor Antagonist Start: 02-08-20 take 1 tablet by mouth three times daily as needed Ondansetron 4 MG 1 tablet on the tongue and allow to dissolve Orally tid prn for 10 days Jan, Active oxyCODONE hydrochloride 5 mg oral tablet (10 sources) Opioid Agonist Start: 10-24-20 take 1 tablet by mouth every six [...] Sep, Active take 1 capsule by mo [facility] every six hours as needed oxyCODONE (Oxy-IR) [...] Drug Class(es) Dates Sig (Normalized) Sig (Original) DULoxetine 60 mg delayed release oral capsule (3 sources) Serotonin and Norepinephrine Reuptake Inhibitor Start: 04-08-2019 End: 12-30-2023 take 60 mg by mouth once daily Duloxetine Discontinued 60 MG PO Daily April 07, 2019 11:00pm December 30, 2023 10:07am esomeprazole 40 mg delayed release oral capsule [...] Start: 02-07-2023 Start: 02-07-2023 Lidocaine 31 M ar2022 30 mg naproxen 500 mg oral tablet (3 sources) Nonsteroidal Anti-inflammatory Drug Start: 04-08-2019 End: 12-30-2023 take 500 mg by mouth twice daily Naproxen Discontinued 500 MG PO Twice daily April 07, 2019 11:00pm December 30, 2023 10:07am sucralfate 1000 mg oral tablet (16 sources) [...] asthma, uncomplicated] Onset: 5 Chronic Cardiac dysrhythmias (14 sources) EKG: supraventricular tachycardia; Translations: [Paroxysmal supraventricular tachycardia] Onset: 4 12-09-2023 Chronic Cardiac dysrhythmias (10 sources) Palpitations; Translations: [Palpitations] Onset: 4 12-09-2023 Episodic Chronic obstructive pulmonary disease and bronchiectasis (5 sources) Chronic obstructive pulmonary disease, unspecified; Translations: [Acute exacerbation of chronic asthmatic bronchitis] Onset: 9 Chronic Disorders of lipid metabolism (20 sources) Hyperlipidemia; Translations: [Other and unspecified hyperlipidemia] [...] conjunctivitis, unspecified eye] Episodic Malaise and fatigue (10 sources) Fatigue; Translations: [Other fatigue] Onset: 5 12-30-2023 Episodic Mood disorders (1 source) Major depressive [...] 09-12-2014 Episodic Other aftercare (1 source) Other prison (current) drug therapy; 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] Onset: 07-23-2022 Episodic Other [...] 01-08-2023 XR hip LT min 2V(w/wo pelvis)* [address] [address] XRay Report Signed Patient: Adriana Dinero I MR#: [id number] [id number] : 1955 Acct:[id number] Age/Sex: 67 / F ADM Date: 01/08/23 Loc: [facility] Room: Type: [facility] Attending Dr: Samuel Chatman II, MD Copies to: Smauel Chatman MD Ordering Provider: Samuel Chatman MD [...] Pop Jr., D.O.01/08/2023 1:22 PM Dictation Location: [place] [address] Transcribed By: [facility] 01/08/23 1322 Dictated By: [place] Pop Jr, DO 01/08/23 1321 Signed By: 01/08/23 1322 [facility] XR hip LT min 2V(w/wo pelvis)* [facility] [employer] Other XR hip LT min 2V(w/wo pelvis)* [facility] [employer] Other XR hip LT min 2V(w/wo pelvis)* [address] [place] [address] [employer] Other XR hip LT min 2V(w/wo pelvis)* [place] [address] [facility] [employer] Other XR hip LT min 2V(w/wo pelvis)* XRay Report [facility] Other XR hip LT min 2V(w/wo pelvis)* Signed [facility] Other XR hip LT min 2V(w/wo pelvis)* Patient: Adriana Dinero I MR#: [id number] [facility] Other XR hip LT min 2V(w/wo pelvis)* 056 [facility] Other XR hip LT min 2V(w/wo pelvis)* : 1955 Acct:[id number] [facility] Other XR hip LT min 2V(w/wo pelvis)* Age/Sex: 67 / F ADM Date: 01/08/23 [facility] Other XR hip LT min 2V(w/wo pelvis)* Loc: [facility] [place] Room: Type: [facility] Other XR hip LT min 2V(w/wo pelvis)* Attending Dr: Samuel Chatman II, MD [facility] Other XR hip LT min 2V(w/wo pelvis)* Copies to: Samuel Chatman MD [facility] Other XR hip LT min 2V(w/wo pelvis)* Ordering Provider: Samuel Chatman MD [facility] Other XR hip LT min 2V(w/wo pelvis)* Date of Service: 01/08/23 [facility] Other XR hip LT min 2V(w/wo pelvis)* XR/XR hip LT min 2V(w/wo pelvis)*: Left hip pain [facility] Other XR hip LT min 2V(w/wo pelvis)* LEFT HIP - 2 views: [facility] Other XR hip LT min 2V(w/wo pelvis)* CLINICAL HISTORY: Left hip pain for months. [facility] Other XR hip LT min 2V(w/wo pelvis)* COMPARISON: Hip series 11/22/2022 [facility] Other XR hip LT min 2V(w/wo pelvis)* FINDINGS: Mild degenerative changes of both hips without acute bony process. [facility] Other XR hip LT min 2V(w/wo pelvis)* XR/XR hip LT min 2V(w/wo pelvis)* [facility] Other XR hip LT min 2V(w/wo pelvis)* IMPRESSION: [facility] Other XR hip LT min 2V(w/wo pelvis)* MILD DEGENERATIVE CHANGES OF BOTH HIPS WITHOUT ACUTE BONY PROCESS.. [facility] Other XR hip LT min 2V(w/wo pelvis)* Impression dictated by: Montana Pop Jr., DOdessaOOdessa01/08/2023 1:22 PM [facility] Other XR hip LT min 2V(w/wo pelvis)* Dictation Location: [place] [address] [facility] Other XR hip LT min 2V(w/wo pelvis)* Transcribed By: VALERIE 01/08/23 [facility] [employer] Other XR hip LT min 2V(w/wo pelvis)* Dictated By: Montana Pop Jr, DO 01/08/23 [facility] [employer] Other XR hip LT min 2V(w/wo pelvis)* Signed By: [facility] Other XR hip LT min 2V(w/wo pelvis)* 01/08/23 [facility] [employer] Other Office Visit (Cardiology)on 12-09-2022 Follow-up visit [...] and provided the patient with 2 local community health representative in [facility]. ASSESSMENT AND PLAN: 1. Supraventricular tachycardia, on [...] falls. Annual follow-up will be scheduled Iban Lu MD, [facility] Surgical History Problems History of Back surgery [...] Recorded: 09Dec2022 01:25PM Heart Rate78, L Radial Kikfersd542, LUE, Sitting Htgfspfls90, LUE, Sitting Height5 ft 6 in Fiezli046 lb BMI Wtvzxkfbjp74.03 kg/m2 BSA Calculated2.19 Tobacco Useb) No PHQ-2 [...] . Signatures Electronically signed by : Iban Lu MD; Dec 09 2022 2:09PM EST (Author) [facility] [employer] Tobacco Screening.on 023 Fall risk assessment b) One or more falls in the last year -[facility]-Alicja 250 DO Work Phone: Tobacco use status [facility] b) No [facility] 250 DO Work Phone: Tobacco Screening. Yes [facility]ja 250 DO Work Phone: XR hip BI w [id number] 11-22-19 XR hip BI w [id number] [facility] [place] [address] [place], [place] [id number] XRay Report Signed Patient: Adriana Dinero I MR#: [id number] 056 : 1955 Acct:[id number] Age/Sex: 67 / F ADM Date: 11/22/22 Loc: XD Room: Type: [facility] Attending Dr: Leeann Quintana Copies to: Leeann [...] Pop Jr., D.O.11/22/2022 1:12 PM Dictation Location: [place] [address] Transcribed By: [facility] 11/22/22 1312 Dictated By: Montana Pop Jr, DO 11/22/22 1311 Signed By: 11/22/22 1312 [facility] XR lumbar spine AP/LAT/FLX/E XTon 11-22-2022 XR lumbar spine AP/LAT/FLX/EXT [facility] [place] [address] [place] [address] XRay Report Signed Patient: Adriana Dinero I MR#: [id number] 056 : 1955 Acct:[id number] Age/Sex: 67 / F ADM Date: 11/22/22 Loc: XD Room: Type: [facility] Attending Dr: Leeann Quintana Copies to: Leeann [...] Pop Jr., D.O.11/22/2022 1:11 PM Dictation Location: [place] [address] Transcribed By: [facility] 11/22/22 1311 Dictated By: Montana Pop Jr, DO 11/22/22 1309 Signed By: 11/22/22 1311 [facility] CREATININEon 10-04-2022 Creatinine [Mass/Vol] 0.75 mg/dL Normal 0.55-1.02 [facility] Comment on above: Performed By: #### C CARLOS #### [facility] [address] [place] [address] [address] Henrietta Zavala EGFR-AF SWISS >60 Normal >=60 [facility] Comment on above: Performed By: #### C CARLOS #### [facility] [address] [place] [address] [address] Henrietta Zavala EGFR-NON AF SWISS >60 Normal >=60 [facility] Comment on above: Performed By: #### C CARLOS #### [facility] [address] [place] [address] [address] Henrietta Zavala MRI GUILLE TAVAREZon 2021 MRI LSSERA Hinkle CON EXAMINATION: MRI LSSERA TAVAREZ HISTORY: Lumbar radiculopathy ; chronic lumbar pain, [...] SHALA OMER Date: 2022-10-04 11:19 Normal [facility] Covid-19 PCR (CVDTB)on 07-11 SARS-CoV-2 (COVID-19) RNA DAVID+probe Ql (Unsp spec) Not detected Normal NOT DETECTED [facility] Comment on above: Result Comment: This test is not yet approved or cleared by the [place] FDA. When there are no FDA-approved or cleared tests available, and other criteria are met, FDA can make tests available under an emergency access mechanism called an Emergency Use Authorization (EUA). The EUA for this test is supported by the Remote Pilot Operator of Health and Human Service's (HHS's) declaration [...] consistent with SARS-CoV-2. Performed By: #### C [facility] #### [facility] [address] [place] [address] Dr. Henrietta Zavala XR HIPS JI 3_4V [...] by: CAITLYN CABRERA Date: 2022-04-15 07:00 Normal [facility] XR TSPINE 3 VIEWSon 04-15-20 XR TSPINE [...] CAITLYN CABRERA Date: 2022-04-15 07:03 Normal [facility] CBC AUTO DIFFon 04-12-2022 BASO # 0.1 103/ul Normal 0.0-0.1 [facility] Comment on above: Performed By: #### C BC #### [facility] [address] [place] [address] [address] Henrietta Zavala Basophils/100 WBC (Bld) 0.4 % Normal 0.2-2.0 [facility] Comment on above: Performed By: #### C BC #### [facility] [address] [place] [address] Dr. Henrietta Zavala EO # 0.1 103/ul Normal 0.0-0.7 [facility] Comment on above: Performed By: #### C BC #### [facility] [address] [place] [address] [address] Henrietta Zavala Eosinophils/100 WBC (Bld) 0.4 % Critically low 0.9-7.0 [facility] Comment on above: Performed By: #### C BC #### [facility] [address] [place] [address] [address] Henrietta Zavala Erythrocyte distribution width (RBC) [Ratio] 14.1 % Normal 11.0-15.0 [facility] Comment on above: Performed By: #### C BC #### [facility] [address] [place] [address] Dr. Henrietta Zavala Hematocrit (Bld) [Volume fraction] 44.9 % Normal 36.0-48.0 [facility] Comment on above: Performed By: #### C BC #### [facility] [address] [place] [address] Dr. Henrietta Zavala Hemoglobin (Bld) [Mass/Vol] 14.2 g/dL Normal 12.0-16.0 [facility] Comment on above: Performed By: #### C BC #### [facility] [address] [place] [address] [address] Henrietta Zavala IG # 0.06 10e3/ul Critically high 0.00-0.03 [facility] Comment on above: Performed By: #### C BC #### [facility] [address] [place] [address] Dr. Henrietta Zavala IG % 0.5 % Normal 0.0-0.5 [facility] Comment on above: Performed By: #### C BC #### [facility] [address] [place] [address] Dr. Henrietta Zavala LYMPH # 2.2 103/ul Normal 1.2-3.8 [facility] Comment on above: Performed By: #### C BC #### [facility] [address] [place] [address] Dr. Henrietta Zavala Lymphocytes/100 WBC (Bld) 19.4 % Critically low 20.5-60.0 [facility] Comment on above: Performed By: #### C BC #### [facility] [address] [place] [address] Dr. Henrietta Zavala MANUAL DIFF REQ NO Normal [facility] Comment on above: Performed By: #### C BC #### [facility] [address] [place] [address] Dr. Henrietta Zavala MCH (RBC) [Entitic mass] 27.5 pg Normal 26.7-34.0 [facility] Comment on above: Performed By: #### C BC #### [facility] [address] [place] [address] Dr. Henrietta Zavala MCHC (RBC) [Mass/Vol] 31.6 g/dL Normal 29.9-35.2 [facility] Comment on above: Performed By: #### C BC #### [facility] [address] [place] [address] Dr. Henrietta Zavala MCV (RBC) [Entitic vol] 86.8 fL Normal 81.0-99.0 [facility] Comment on above: Performed By: #### C BC #### [facility] [address] [place] [address] [address] Henrietta Zavala MONO # 0.9 103/ul Critically high 0.3-0.8 [facility] Comment on above: Performed By: #### C BC #### [facility] [address] [place] [address] [address] Henrietta Zavala Monocytes/100 WBC (Bld) 7.9 % Normal 1.7-12.0 [facility] Comment on above: Performed By: #### C BC #### [facility] [address] [place] [address] Dr. Henrietta Zavala NEUT # 8.1 103/ul Critically high 1.4-6.5 [facility] Comment on above: Performed By: #### C BC #### [facility] [address] [place] [address] Dr. Henrietta Zavala Neutrophils/100 WBC (Bld) 71.4 % Normal 43.0-75.0 [facility] Comment on above: Performed By: #### C BC #### [facility] [address] [place] [address] Dr. Henrietta Zavala Platelet mean volume (Bld) [Entitic vol] 9.7 fL Normal 9.5-13.5 [facility] Comment on above: Performed By: #### C BC #### [facility] [address] [place] [address] Dr. Henrietta Zavala PLT 284 103/ul Normal 150-450 [facility] Comment on above: Performed By: #### C BC #### [facility] [address] [place] [address] Dr. Henrietta Zavala RBC 5.17 106/ul Normal 4.20-5.40 [facility] Comment on above: Performed By: #### C BC #### [facility] [address] [place] [address] Dr. Henrietta Zavala WBC 11.3 103/ul Critically high 4.0-11.0 [facility] Comment on above: Performed By: #### C BC #### [facility] [address] [place] [address] [address] Henrietta Zavala LIPID PROFILEon 04-12-2022 CHOL-HDL RATIO NORM SEE BELOW Normal [facility] Comment on above: Result Comment: 3.3 - 4.4 LOW RISK 4.4 - 7.1 AVERAGE RISK 7.1 - 11.0 MODERATE RISK >11.0 HIGH RISK Performed By: #### C MP, LIPID #### [facility] [address] [place] [address] [address] Henrietta Zavala Cholesterol [Mass/Vol] 235 mg/dL Critically high <=200 [facility] Comment on above: Performed By: #### C MP, LIPID #### [facility] [address] [place] [address] [address] Henrietta Zavala Cholesterol in HDL [Mass/Vol] 47 mg/dL Normal 40-60 [facility] Comment on above: Performed By: #### C MP, LIPID #### [facility] [address] [place] [address] [address] Henrietta Zavala Cholesterol in LDL [Mass/Vol] 160.8 mg/dL Normal [facility] Comment on above: Performed By: #### C MP, LIPID #### [facility] [address] [place] [address] [address] Henrietta Zavala Cholesterol.total/C holesterol in HDL [Mass ratio] 5.0 {ratio} Normal [facility] Comment on above: Performed By: #### C MP, LIPID #### [facility] [address] [place] [address] [address] Henrietta Zavala HDL NORMAL > or = 60 mg/dl - LO W CARDIOVASCULAR RISK <40 mg/dl - HIGH CARDIOVASCULAR RISK Normal [facility] Comment on above: Performed By: #### C MP, LIPID #### [facility] [address] [place] [address] [address] Henrietta Zavala LDL CALC NORMAL SEE BELOW Normal [facility] Comment on above: Result Comment: <100 mg/dl OPTIMAL 100 - 129 mg/dl NEAR OR ABOVE OPTIMAL 130 - 159 mg/dl BORDERLINE HIGH 160 - 189 mg/dl HIGH >190 mg/dl VERY HIGH Performed By: #### C MP, LIPID #### [facility] [address] [place] [address] Dr. Henrietta Zavala Triglyceride [Mass/Vol] 136 mg/dL Normal <=150 [facility] [place] Comment on above: Performed By: #### C MP, LIPID #### [facility] [address] [place] [address] Dr. Henrietta Zavala VLDL CALC 27.2 mg/dL Normal [facility] [place] Comment on above: Performed By: #### C MP, LIPID #### [facility] [address] [address] [address] Henrietta Zavala PROF 14(COMP METB)on 022 Albumin [Mass/Vol] 3.2 g/dL Critically low 3.4-5.0 [facility] Comment on above: Performed By: #### C MP, LIPID #### [facility] [address] [place] [address] Dr. Henrietta Zavala Albumin/Globulin [Mass ratio] 0.8 {ratio} Normal [facility] [place] Comment on above: Performed By: #### C MP, LIPID #### [facility] [address] [place] [address] Dr. Henrietta Zavala ALP [Catalytic activity/Vol] 127 U/L Critically high 46-116 [facility] [place] Comment on above: Performed By: #### C MP, LIPID #### [facility] [address] [place] [address] Dr. Henrietta Zavala ALT [Catalytic activity/Vol] 55 U/L Normal 14-59 [facility] [place] Comment on above: Performed By: #### C MP, LIPID #### [facility] [address] [place] [address] Dr. Henrietta Zavala Anion gap [Moles/Vol] 13.6 mmol/L Normal [facility] [place] Comment on above: Performed By: #### C MP, LIPID #### [facility] [address] [place] [address] Dr. Henrietta Zavala AST [Catalytic activity/Vol] 24 U/L Normal 15-37 [facility] [place] Comment on above: Performed By: #### C MP, LIPID #### [facility] [address] [place] [address] Dr. Henrietta Zavala Bilirubin [Mass/Vol] 0.3 mg/dL Normal 0.2-1.0 [facility] [place] Comment on above: Performed By: #### C MP, LIPID #### [facility] [address] [place] [address] Dr. Henrietta Zavala Calcium [Mass/Vol] 8.8 mg/dL Normal 8.5-10.1 [facility] Comment on above: Performed By: #### C MP, LIPID #### [facility] [address] [place] [address] Dr. Henrietta Zavala Chloride [Moles/Vol] 107 mmol/L Normal 98-107 [facility] [place] Comment on above: Performed By: #### C MP, LIPID #### [facility] [address] [place] [address] Dr. Henrietta Zavala CO2 [Moles/Vol] 25.6 mmol/L Normal 21.0-32.0 [facility] Comment on above: Performed By: #### C MP, LIPID #### [facility] [address] [place] [address] Dr. Henrietta Zavala Creatinine [Mass/Vol] 0.77 mg/dL Normal 0.55-1.02 [facility] [place] Comment on above: Performed By: #### C MP, LIPID #### [facility] [address] [place] [address] Dr. Henrietta Zavala EGFR-AF SWISS >60 Normal >=60 [facility] Comment on above: Performed By: #### C MP, LIPID #### [facility] [address] [place] [address] Dr. Henrietta Zavala EGFR-NON AF SWISS >60 Normal >=60 [facility] [place] Comment on above: Performed By: #### C MP, LIPID #### [facility] [address] [place] [address] Dr. Henrietta Zavala Globulin (S) [Mass/Vol] 3.8 g/dL Normal [facility] [place] Comment on above: Performed By: #### C MP, LIPID #### [facility] [address] [place] [address] Dr. Henrietta Zavala Glucose [Mass/Vol] 90 mg/dL Normal 74-106 [facility] Comment on above: Performed By: #### C MP, LIPID #### [facility] [address] [address] [address] Henrietta Zavala Potassium [Moles/Vol] 4.2 mmol/L Normal 3.5-5.1 [facility] [place] Comment on above: Performed By: #### C MP, LIPID #### [facility] [address] [address] [address] Henrietta Zavala Protein [Mass/Vol] 7.0 g/dL Normal 6.4-8.2 [facility] Comment on above: Performed By: #### C MP, LIPID #### [facility] [address] [place] [address] Dr. Henrietta Zavala Sodium [Moles/Vol] 142 mmol/L Normal 136-145 [facility] Comment on above: Performed By: #### C MP, LIPID #### [facility] [address] [address] [address] Henrietta Zavala Urea nitrogen [Mass/Vol] 13.0 mg/dL Normal 7.0-18.0 [facility] [place] Comment on above: Performed By: #### C MP, LIPID #### [facility] [address] [place] [address] Dr. Henrietta Zavala Urea nitrogen/Creatinine [Mass ratio] 16.9 mg/mg Normal [facility] [place] Comment on above: Performed By: #### C MP, LIPID #### [facility] [address] [place] [address] Dr. Henrietta Zavala Tobacco Screening.on 021 Fall risk assessment a) No falls within the last year -[facility] [employer] DO Work Phone: Tobacco use status CP b) No -[facility] [employer] DO Work Phone: KNEE LEFT 3 VWSon 03-30-2021 KNEE LEFT 3 S [facility] Department of Radiology [address] [place] [phone] Patient Name: ADRIANA RAYGOZA : 1955 Sex: F Age: Race: White Pt. Location: 84 Patient Status: Ordered Date: 03/30/2021 9:00:00 AM Completed Date: 03/30/2021 09:07 AM Requesting Provider: RAMANDEEP PATEL Attending Provider: Report Copy To: Signs & Symptoms: M25.562 Pain in left knee I10 History: [place] Comments: , , , Ordering Provider - RAMANDEEP PATEL MD , Exam: KNEE LEFT 3 VWS KNEE LEFT 3 VWS 03/30/2021 9:07 AM CLINICAL INDICATIONS: M25.562 Pain [...] findings. Electronically signed: Jesse Lazaro. Transcribed by: [email or web address], User Resident: Electronically Signed by: JESSE LAZARO @ 03/30/2021 11:00 AM Normal [facility] Comment on above: Order Comment: , , = ========= , Ordering Provider - RAMANDEEP PATEL MD , KNEE RIGHT 3 Son 1 KNEE RIGHT 3 S [facility] Department of Radiology [address] [place] [phone] Patient Name: ADRIANA RAYGOZA : 1955 Sex: F Age: Race: White Pt. Location: Patient Status: O Ordered Date: 03/30/2021 9:05:00 AM Completed Date: 03/30/2021 09:07 AM Requesting Provider: RAMANDEEP PATEL Attending Provider: RAMANDEEP PATEL Report Copy To: Signs & Symptoms: M25.569 Pain in unspecified knee I10 History: [place] Comments: Evaluate Exam: KNEE RIGHT 3 [facility] CLINICAL INFORMATION: Chronic right knee pain. [...] joint space. Approved by:Shala Gupta03/30/2021 10:24 AM. IJesse,have reviewed the images and reports Electronically signed: Jesse Lazaro. Transcribed by: [email or web address], User Resident: SAHLA EATON Electronically Signed by: JESSE LAZARO @ 03/30/2021 03:52 PM I personally read this/these film(s) with this resident Normal [facility] Comment on above: Order Comment: Evalu ate MRI LUMBAR SP W & WO CONTRAS Ton 10-11-2020 MRI LUMBAR SP W & WO CONTRAST STUDY: MRI LUMBAR SP W WO CONTRAST; 10/11/2020 11:35 am INDICATION: POST LAMINECTOMY SYNDROME. COMPARISON: None. ACCESSION NUMBER(S): [id number] ORDERING CLINICIAN: Denis Donohue TECHNIQUE: The lumbar [...] osteomyelitis. * THIS EXAMINATION WAS INTERPRETED AT [facility] Normal [facility] LUMB SP COMP W FLEX/EXT 6 VW Son 09-12-2020 LUMB SP COMP W FLEX/EXT 6 VWS STUDY: LUMB SP COMP W FLEX/EXT 6 VWS ; ; 09/12/2020 8:45 am INDICATION: PAIN. COMPARISON: None. ACCESSION NUMBER(S): [id number] ORDERING CLINICIAN: Denis Donohue FINDINGS: Status post [...] neural foraminal stenosis at L5-S1 level. Normal [facility] Ambulatory Clinical Summaryo n 05-22-2020 Ambulatory Clinical Summary {[id number]}CD:[id number] Normal [facility] Coding Summary.on 05-10-2020 Coding Summary. CODING DATE: 05/10/2020 FINAL [facility] STATUS: Home (Routine DC) PAYOR: Commercial [...] Jasmine CphT Date Saved: 05/10/2020 04:39 pm [facility] Coding Summary.on 05-08-2020 Coding Summary. CODING DATE: 05/08/2020 FINAL [facility] STATUS: Home (Routine DC) PAYOR: Commercial [...] Jasmine CphT Date Saved: 05/08/2020 12:00 pm [facility] IntraOperative Documentson 0 05-08-2020 IntraOperative Documents [id number]# 1.00CD:127 Normal [facility] Postoperative Documentson Postoperative Documents [id number]#1 .00CD:127 Normal [facility] Coding Summary.on 05-04-2020 Coding Summary. CODING DATE: 05/04/2020 FINAL [facility] STATUS: Home (Routine DC) PAYOR: [employer] APC DESCRIPTION 5301 Level 1 Upper GI Procedures ADMIT DX: REASON FOR VISIT DX: R10.13 Epigastric pain FINAL DX: PRINCIPAL: K29.50 Unspecified chronic gastritis without bleeding SECONDARY: K25.9 Gastric ulcer, unspecified as acute or chronic, without hemorrhage or perforation R11.2 Nausea with vomiting, unspecified PYMT PROC APC STAT DESCRIPTION DOCTOR NAME DATE [id number] 5301 Reid CLINE MD 05/01/2020 phagogastroduodenosco py, flexible, transoral; with biopsy, single or multiple 91556 Anesthesia for upper Elliot Tena Jr, DO [...] [place]ared[place] Revised Date Saved: 05/04/2020 03:45 pm [facility] Progress Note-Physicianon Progress Note-Physician Patient: ADRIANA [...] Cardiovascular: Regular rhythm. Neurologic: Alert, Oriented. Plan [place] [employer] Anesthesiologists (ASA) physical status classification: Class II. Anesthetic Preoperative Plan Anesthesia: General. . Anesthetic plan, risks, benefits, and alternatives discussed with the patient and/or family. Communication: face to face with (patient 5 minutes, Patient educated on smoking cesstation). Normal [facility] Comment on above: Result Comment: Elec tronically Signed By: Elliot Tena Jr, DO\.diogo\Date and Time Signed: 05/03/20 09:34 EDT Main OR Intraoperative Recor don 05-02-2020 Main OR Intraoperative Record IntraOp Document Type FT Summary Primary Physician: Reid NIEVES MD Finalized Date/Time: 05/02/20 13:35:19 Pt. Name: ADRIANA DINERO D.O.B./Sex: 1955 Female Med Rec #: [id number] Physician: Reid NIEVES MD Financial #: [id number] Pt. Type: O Room/Bed: / Admit/Disch: 05/01/20 07:03:44 - 05/01/20 23:59:59 Institution: Case Times FT Entry 1 Patient Times In Room 05/01/20 08:17:00 Out Room 05/01/20 08:25:00 Procedure Times Start 05/01/20 08:21:00 Stop 05/01/20 08:23:00 Anesthesia Times Start 05/01/20 08:17:00 Stop 05/01/20 08:25:00 Last Modified By: Savannah Chavis RN 05/01/20 08:26:21 General Comments: 05/02/2020 Chart opened to review and send charges Juvencio Bowen PATIENT CLERICAL ASSISTANT Case Attendance FT Entry 1 Entry 2 Entry 3 Case Attendee Darinel Matias DO, Elliot Chavis RN, Fior Simms Role Performed Anesthesiologist of Credit Investigator - Primary Scrub - Primary Record Time In 05/01/20 08:17:00 05/01/20 08:17:00 05/01/20 08:17:00 Time Out 05/01/20 08:25:00 05/01/20 08:25:00 05/01/20 08:25:00 Procedure EGD(.) EGD(.) EGD(.) Comments Last Modified By: Savannah Chavis RN, RN, Savannah Salgado RN 05/01/20 08:26:22 05/01/20 [...] (If Applicable) PreOp Antibiotic No Time Out Darinel Matias DO, Elliot Khan, Given Participants Savannah Chavis RN, SALAM MD, Gurvinder Mathews Kirstyn K Time Out Complete 05/01/20 08:20:00 [...] Procedure Yes Primary Surgeon Reid NIEVES MD Start 05/01/20 08:21:00 Stop 05/01/20 08:23:00 Anesthesia Type [...] caused by extraneous objects Transport To OR Pre-Care Text: Transports according to individual needs. [...] injury related to transfer/transport Departure From OR Pre-Care Text: Transports according to individual needs. Evaluates for signs and symptoms of skin and tissue injury as a result of transfer or transport. Entry 1 Via Cart Safety Precautions Side Rails Up PostOp Destination PACU Transported By Savannah Chavis RN Patient Status Stable Skin. Condition Intact, [place], Warm, and Dry Airway Maintenance Oxygen in Use? No Outcomes Met? Yes Last Modified By: Savannah Chavis RN 05/01/20 06:57:50 Post-Care Text: The patient is free from signs and symptoms of injury related to transfer/transport General Comments: Report given to restaurant busser. RHRN Medication Administration FT Pre-Care Text: Verifies allergies, administers prescribed medications and solutions, administers prescribed antibiotic therapy and immunizing agents as ordered, evaluates response to medications Administers prescribed medications and solutions Entry 1 Expiration Date Yes Outcomes Met? Yes Verified Last Modified By: Savannah Chavis RN 05/01/20 06:57:59 Post-Care Text: The patient received appropriate medication(s) safely administered during the perioperative period For [facility] please see scanned medication reconcilliation form for [...] 05/01/20 08:26 Altagracia Bowen CST 05/02/20 13:35 [facility] Consenton 05-01-2020 Consent [id number] .00CD:127 [facility] Consent for Treatmenton 04-11 Consent for Treatment [id number] .00CD:127 [facility] Discharge Instructionson Discharge Instructions [id number] .00CD:127 [facility] History and Physicalon 05-01 History and Physical [id number] .00CD:127 [facility] Inpatient Patient Summaryon 05-01-2020 Inpatient Patient Summary [id number] [facility] Clinical Discharge Instructions PERSON INFORMATION Name: ADRIANA DINERO I PHYSICIANS Admitting Physician: Reid NIEVES MD Attending Physician: Reid NIEVES MD PCP: TOBY QUINTANA MD Discharge Diagnosis: Antral ulcer Comment: PATIENT EDUCATION INFORMATION Instructions: Medication Leaflets: Follow up: With: Address: When: Reid NIEVES [facility] [address] [place] [address] Within 2 weeks Type Location Start [facility] Follow Up Love 05/22/2020 2:15 PM 05/22/2020 2:30 PM Confirmed MEDICATION LIST Medications to Continue Taking That Have Changed [facility] [facility] [address] [facility] [place], [place] [id number], [phone] START: omeprazole (omeprazole 40 mg Cap-DR) 1 [...] Mouth every 8 hours. Refills: 1. Comment: Normal [facility] IntraOperative Documentson 0 05-01-2020 IntraOperative Documents [id number] .00CD:127 [facility] IntraOperative Documents [id number] .00CD:127 [facility] Main OR PACU I Recordon 04-11 Main OR PACU I Record PACU Phase I Document Type FT Summary Primary Physician: Reid NIEVES MD Finalized Date/Time: 05/01/20 09:14:39 Pt. Name: ADRIANA DINERO/Sex: 1955 Female Med Rec #: [id number] Physician: Reid NIEVES MD Financial #: [id number] Pt. Type: O Room/Bed: / Admit/Disch: 05/01/20 [...] Signed By: Ami Donaldson RN 05/01/20 09:14 [facility] Main OR Preoperative Recordo n 06-22-2020 Main OR Preoperative Record Holding Area Document Type FT Summary Primary Physician: Reid NIEVES MD Finalized Date/Time: 05/01/20 07:37:17 Pt. Name: ADRIANA DINERO I /Sex: 1955 Female Med Rec #: [id number] Physician: Reid NIEVES MD Financial #: [id number] Pt. Type: O Room/Bed: / Admit/Disch: 05/01/20 07:03:44 - Institution: Case Times Holding FT Pre-Care Text: Verifies consent for planned procedure, identifies individual values and wishes concerning care, includes family members in perioperative teaching Secures patient's records' belongings, and valuables, maintains patient's dignity and privacy, and maintains patient confidentiality Entry 1 In Holding 05/01/20 07:12:00 Outcomes Met? Yes Last Modified By: Lizbeth Diamond RN 05/01/20 07:12:34 Post-Care Text: The patient [...] By: Lizbeth Diamond RN 05/01/20 07:37 Normal [facility] Monitor Recordon 05-01-2020 Monitor Record [id number]# 1.00CD:127 Normal [facility] Patient Education - Texton 0 05-01-2020 Patient Education - Text Normal [facility] Ambulatory Clinical Summaryo n 04-24-2020 Ambulatory Clinical Summary {[id number]}CD:[id number] Normal [facility] Auto Diffon 04-24-2020 Basophils/100 WBC (Bld) 0.5 % Normal 0.0-2.0 [facility] Comment on above: Order Comment: Order Added by Discern Expert. Performed By: #### 2 826200, 0688122, 2897375, 7842453, [id number] #### [facility] [address] [place] [address] Basophils/Leukocyte s Auto (Bld) [Pure # fraction] 0.0 E9/L Normal 0.0-0.2 [facility] Comment on above: Order Comment: Order Added by Discern Expert. Performed By: #### 2 959228, 6784720, 8927103, 6038480, [id number] #### [facility] [address] [place] [address] Eosinophils/100 WBC (Bld) 2.9 % Normal 0.0-8.0 [facility] Comment on above: Order Comment: Order Added by Discern Expert. Performed By: #### 2 258370, 1332341, 4036518, 2935211, 40603034 #### [facility] [address] [place] [address] Eosinophils/Leukocy daniel Auto (Bld) [Pure # fraction] 0.3 E9/L Normal 0.0-0.5 [facility] Comment on above: Order Comment: Order Added by Discern Expert. Performed By: #### 2 705080, 2395505, 1045845, 8033634, 03056328 #### [facility] [address] [place] [address] Lymphocytes/100 WBC (Bld) 23.7 % Normal 14.0-50.0 [facility] Comment on above: Order Comment: Order Added by Discern Expert. Performed By: #### 2 603934, 3371814, 2778055, 1550545, 94907050 #### [facility] [address] [place] [address] Lymphocytes/Leukocy daniel Auto (Bld) [Pure # fraction] 2.2 E9/L Normal 1.0-4.0 [facility] Comment on above: Order Comment: Order Added by Discern Expert. Performed By: #### 2 877520, 4198515, 2087804, 6397693, 44099391 #### [facility] [address] [place] [address] Monocytes/100 WBC (Bld) 7.4 % Normal 4.0-14.0 [facility] Comment on above: Order Comment: Order Added by Discern Expert. Performed By: #### 2 072128, 5268337, 4051654, 5608168, 31905169 #### [facility] [address] [place] [address] Monocytes/Leukocyte s Auto (Bld) [Pure # fraction] 0.7 E9/L Normal 0.2-1.0 [facility] Comment on above: Order Comment: Order Added by Discern Expert. Performed By: #### 2 477638, 8324059, 6082912, 1856407, 49850267 #### [facility] [address] [place] [address] Neutrophils/100 WBC (Bld) 65.5 % Normal 36.0-75.0 [facility] Comment on above: Order Comment: Order Added by Discern Expert. Performed By: #### 2 493088, 3970934, 6143745, 9602132, 17534508 #### [facility] [address] [place] [address] Neutrophils/Leukocy daniel Auto (Bld) [Pure # fraction] 6.0 E9/L Normal 2.0-7.5 [facility] Comment on above: Order Comment: Order Added by Discern Expert. Performed By: #### 2 264402, 0512606, 3223397, 1559903, 87110259 #### [facility] [address] [place] [address] CBC w/ Auto Diffon 0 Erythrocyte distribution width (RBC) [Ratio] 16.1 % High 10.9-14.2 [facility] Comment on above: Performed By: #### 2 301827, 7102465, 9918124, 2307582, 58764173 #### [facility] [address] [place] [address] Hematocrit (Bld) [Volume fraction] 45.1 % Normal 34.0-46.0 [facility] Comment on above: Performed By: #### 2 283370, 4393293, 6467673, 8297559, 33930833 #### [facility] [address] [place] [address] Hemoglobin (Bld) [Mass/Vol] 15.0 g/dL Normal 12.0-16.0 [facility] Comment on above: Performed By: #### 2 914196, 7716926, 1907291, 5236467, 65724377 #### [facility] [address] [place] [address] MCH (RBC) [Entitic mass] 27.2 pg Normal 27.0-34.0 [facility] Comment on above: Performed By: #### 2 847114, 5917384, 6530838, 4538534, 19942049 #### [facility] [address] [place] [address] MCHC (RBC) [Mass/Vol] 33.2 g/dL Normal 31.4-36.0 [facility] Comment on above: Performed By: #### 2 392975, 9348198, 9350086, 8822860, 79995785 #### [facility] [address] [place] [address] MCV (RBC) [Entitic vol] 82.0 fL Normal 80.0-100.0 [facility] Comment on above: Performed By: #### 2 615937, 6148504, 3452861, 7049438, 11663816 #### [facility] [address] [place], [place] [address] Platelet mean volume (Bld) [Entitic vol] 7.3 fL Normal 6.4-10.8 [facility] Comment on above: Performed By: #### 2 658635, 9869323, 5898198, 4615317, 02554446 #### [facility] [address] [place] [address] Platelets (Bld) [#/Vol] 253.0 E9/L Normal 150.0-500.0 [facility] Comment on above: Performed By: #### 2 085861, 4604950, 2219533, 6589955, 92656684 #### [facility] [address] [place] [address] RBC (Bld) [#/Vol] 5.5 E12/L Normal 4.3-5.9 [facility] Comment on above: Performed By: #### 2 184923, 5530602, 9539951, 6149671, 18533110 #### [facility] [address] [place] [address] WBC corrected for nucl RBC Auto (Bld) [#/Vol] 9.1 E9/L Normal 4.0-11.0 [facility] Comment on above: Performed By: #### 2 398315, 4293106, 3971767, 3476992, 68598277 #### [facility] [address] [place] [address] [facility] 04-24-2020 Albumin [Mass/Vol] 3.7 g/dL Normal 3.3-5.0 [facility] Comment on above: Performed By: #### 2 029670, 7214816, 7017233, 0945232, 33206166 #### [facility] [address] [place] [address] Albumin [Mass/Vol] 1.0 g/dL Low 1.1-2.2 [facility] Comment on above: Performed By: #### 2 083365, 2453103, 8724423, 8461952, 72572240 #### [facility] [address] [place] [address] ALP [Catalytic activity/Vol] 107 Int._Unit/L High 21-98 [facility] Comment on above: Performed By: #### 2 489002, 6443612, 6967074, 6691738, 73410226 #### [facility] [address] [place] [address] ALT No additional P-5'-P [Catalytic activity/Vol] 17 Int._Unit/L Normal 6-46 [facility] Comment on above: Performed By: #### 2 656546, 9515998, 3421043, 0996244, 88485062 #### [facility] [address] [place] [address] Anion gap [Moles/Vol] 11 mmol/L Normal 6-16 [facility] Comment on above: Performed By: #### 2 714873, 3660840, 6568018, 2387811, 09664382 #### [facility] [address] [place] [address] AST [Catalytic activity/Vol] 21 Int._Unit/L Normal 5-43 [facility] Comment on above: Performed By: #### 2 358053, 0445934, 8608244, 1815523, 46085353 #### [facility] [address] [place] [address] Bilirubin [Mass/Vol] 0.5 mg/dL Normal 0.0-1.1 [facility] Comment on above: Performed By: #### 2 900553, 9337237, 1138667, 1608611, 96684200 #### [facility] Laboratory [address] [place] [address] Calcium [Mass/Vol] 9.0 mg/dL Normal 8.9-11.1 [facility] Comment on above: Performed By: #### 2 578638, 3111353, 8754372, 1098334, [id number] #### [facility] [address] [place] [address] Chloride [Moles/Vol] 107 mmol/L Normal 101-111 [facility] Comment on above: Performed By: #### 2 628730, 0893454, 7141271, 8651168, [id number] #### [facility] [address] [place] [address] CO2 [Moles/Vol] 27 mmol/L Normal 21-31 [facility] Comment on above: Performed By: #### 2 048346, 5198943, 1912769, 2267566, [id number] #### [facility] [address] [place] [address] Creatinine [Mass/Vol] 0.8 mg/dL Normal 0.5-1.3 [facility] Comment on above: Performed By: #### 2 209762, 3410360, 0533874, 5551091, [id number] #### [facility] [address] [place] [address] Globulin (S) [Mass/Vol] 3.7 g/dL Normal 1.4-4.0 [facility] Comment on above: Performed By: #### 2 578362, 1159395, 9582576, 8763018, 43089379 #### [facility] [address] [place] [address] Glucose [Mass/Vol] 134 mg/dL Normal 55-199 [facility] Comment on above: Result Comment: If t his glucose result represents a fasting glucose, interpretation should refer to the following reference range: 55-99 mg/dL Performed By: #### 2 969580, 5832943, 8945535, 2254472, [id number] #### [facility] [address] [place] [address] Potassium [Moles/Vol] 3.9 mmol/L Normal 3.5-5.3 [facility] Comment on above: Performed By: #### 2 979105, 5731772, 1233340, 6358034, 67033145 #### [facility] [address] [place] [address] Protein [Mass/Vol] 7.4 g/dL Normal 6.0-7.8 [facility] Comment on above: Performed By: #### 2 383214, 2590462, 5856449, 8507926, 65249092 #### [facility] [address] [place] [address] Sodium [Moles/Vol] 141 mmol/L Normal 135-145 [facility] Comment on above: Performed By: #### 2 227397, 4170310, 6103085, 4394980, 63110504 #### [facility] [address] [place] [address] Urea nitrogen [Mass/Vol] 17 mg/dL Normal 5-21 [facility] Comment on above: Performed By: #### 2 078724, 7689803, 1761717, 0539612, 02356450 #### [facility] [address] [place] [address] Urea nitrogen/Creatinine [Mass ratio] 21 No Units High 10-20 [facility] Comment on above: Performed By: #### 2 356132, 0030488, 8635679, 9439887, 30919300 #### [facility] [address] [place] [address] Consent for Treatmenton 04-10 Consent for Treatment [id number] .[id number]:127 Normal [facility] Lipase Levelon 04-24-2020 Lipase [Catalytic activity/Vol] 40 unit/L Normal 13-58 [facility] Comment on above: Performed By: #### 2 539871, 0529684, 7058894, 1881060, 25129270 #### [facility] [address] [place] [address] Physician Orderon 04-24-2020 Physician Order [id number]#1. 00CD:127 Normal [facility] eGFRon 04-24-2020 GFR/1.73 sq M predicted among blacks MDRD (S/P/Bld) [Vol rate/Area] mL/min/{1.73_m2} Normal >=59 [facility] Comment on above: Order Comment: Order added by Discern Expert. Result Comment: eGFR is race adjusted. AA=. Performed By: #### 2 104925, 5368269, 6734873, 9576557, [id number] #### [facility] [address] [place] [address] GFR/1.73 sq M predicted among non-blacks MDRD (S/P/Bld) [Vol rate/Area] mL/min/{1.73_m2} Normal >=59 [facility] Comment on above: Order Comment: Order added by Discern Expert. Result Comment: [employer] farhan kidney disease could be indicated at eGFR's of less than 60 mL/min/1.73m2. Kidney failure is indicated at less than 15 mL/min/1.73m2. Performed By: #### 2 634794, 4290225, 6414178, 2881131, [id number] #### [facility] [address] [place] [address] PROGRESSon 11-04-2019 PROGRESS HNO ID: [id number] Author: Bridger Ma Service: ? Author Type: Physician Type: Progress Notes Filed: 11/04/2019 5:12 PM Note Text: Bridger aM MD Department of Orthopaedics Orthopaedics [address] [place] [address] Dept: [phone] October 05, 2019 CHIEF COMPLAINT: New Patient [...] mail or electronic medical record. Caitlyn Cantu, LIZZY [address] [facility] [address] Toby Quintana MD [address] [place] [phone] This note was partially generated using [employer] voice recognition system, and there may be some incorrect words, spellings, and punctuation that were not noted in checking the note before saving. Bridger Ma MD [facility] CNOVon 10-05-2019 CNOV Office Visit (ORMDNA ) ADRIANA DINERO ([id number]) 1955 F Date Time Provider Department 10/05/19 2:45 PM BRIDGER MA During your visit today, we recorded the following information about you: Pulse Blood pressure Weight Height 81/minute 121/58 124.2 kg 1.676 m Eleanor Talbot Ma 11/04/2019 5:12 PM Signed Patient presents with: New Patient: Right knee pain - Ref. 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 Patient had an x-ray done at [facility] on 11/02/18 and a MRI on 11/30/18. Patient hand carried copies of the reports and films on a CD. with patient today. Referred by Caitlyn Cantu. Taking [place] and Naproxen for the pain and does not help. Using a walker today and as needed at home. Bridger Ma MD 11/04/2019 5:12 PM Signed Bridger Ma MD Department of Orthopaedics Orthopaedics [address] [place] [address] Dept: [phone] October 05, 2019 CHIEF COMPLAINT: New Patient [...] or electronic medical record. LIZZY Graham [address] [id number] Toby Quintana MD [address] [place] [phone] This note was partially generated using [employer] voice recognition system, and there may be some incorrect words, spellings, and punctuation that were not noted in checking the note before saving. Bridger Ma MD Referring Provider: CAITLYN CANTU [[id number]] Allergies As of Date: 10/05/2019 Noted Allergy [...] mg injection (CELESTONE)Disp: Rfl: [facility] [[id number]] Order #: [id number]: 1 Large Joint Arthro/Inj: R knee joint [RHI877] Order #: [id number] betamethasone acetate-betamethasone sodium phosphate 6 mg injection [...] Status:Closed by BRIDGER MA MD on 11/04/19 [facility] PROGRESSon 10-05-2019 PROGRESS HNO ID: [id number] Author: Eleanor Talbot Ma Service: ? 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 Patient had an x-ray done at [facility] on 11/02/18 and a MRI on 11/30/18. Patient hand carried copies of the reports and films on a CD. with patient today. Referred by Caitlyn Cantu. Taking [place] and Naproxen for the pain and does not help. Using a walker today and as needed at home. [facility] CREATININEon 08-26-2019 Creatinine [Mass/Vol] 0.80 mg/dL Normal 0.50 - 1.05 [facility] Comment on above: Performed By: #### C REAT #### [address] [address] Creatinine [Mass/Vol] mg/dL Normal >60 [facility] Comment on above: Performed By: #### C REAT #### [address] [address] Result Comment: CALC ULATIONS OF ESTIMATED GFR ARE PERFORMED USING THE MDRD STUDY EQUATION FOR THE IDMS-TRACEABLE CREATININE METHODS. CLIN CHEM 2007;53:766-72 ELECTROLYTE PANELon 08-26-20 19 Anion gap [Moles/Vol] 14 mmol/L Normal - [facility] Comment on above: Performed By: #### E LECT #### [address] [address] Chloride [Moles/Vol] 104 mmol/L Normal 98 - 107 [facility] Comment on above: Performed By: #### E LECT #### [address] [address] HCO3 (Bld) [Moles/Vol] 29 mmol/L Normal 21 - 32 [facility] Comment on above: Performed By: #### E LECT #### [address] [address] Potassium [Moles/Vol] 4.6 mmol/L Normal 3.5 - 5.3 [facility] Comment on above: Performed By: #### E LECT #### [address] [address] Sodium [Moles/Vol] 142 mmol/L Normal 136 - 145 [facility] Comment on above: Performed By: #### E LECT #### [address] [address] UREA NITROGENon 08-26-2019 Urea nitrogen [Mass/Vol] 14 mg/dL Normal 6 - 23 [facility] Comment on above: Performed By: #### U CARLOS #### [address] [address] [facility] CARDIAC STRESS/REST INJE CTIONon 08-25-2019 [facility] CARDIAC STRESS/REST INJECTION Patient Name: ADRINAA DINERO STUDY: MYOCARDIAL PERFUSION STRESS TEST WITH LEXISCAN Performing facility: [facility], [address] [place] [address], [address], [place] [address] [facility] Provider: GURU LU PCP: Dr. Poli QUINTANA Supervising provider: Poli VILLAFANA INDICATION: DYSPNEA EDEMA HISTORY: Gender: F; Age: 64 y/o ; Height: 170.18 cm; Weight: 127.989735 kg. SOB High Cholesterol; Family HX CAD; PALPITATIONS COMPARISON: ACCESSION NUMBER(S): [id number] ORDERING CLINICIAN: IBAN LU TECHNIQUE: TWO DAY protocol. Stress injection: Date:08/25/19, [...] available for comparison. Electronically signed by: IBAN LU MD Normal [facility] OT-MRI KNEE RT WO CON IMPORT on 07-27-2019 OT-MRI KNEE RT WO CON IMPORT Images were obtained outside of [facility] [id number] N [facility] CNOVon 07-07-2019 CNOV Office Visit (SPNMED ) ADRIANA DINERO ([id number]) 1955 F Date Time Provider Department 07/07/19 9:40 AM CAITLYN CANTU SPNMED During your visit today, we recorded the following information about you: Pulse Blood pressure Weight Height 80/minute 126/55 124.1 kg 1.676 m LIZZY Graham 07/07/2019 1:08 PM Signed BEVERLEY Lopez [facility] [address] [place] [address] 07/07/2019 Assessment Diagnosis: Encounter Diagnosis ICD-10-CM 1. [...] told for multiple years that she has qwlm-lo-mawr arthritis in the right knee and this [...] record for those providers who practice within [facility] or with access to [employer] via MD Connect, or via letter. - [...] past--performed [place] [address] Jones in [place]. The procedure was a spinal laminectomy and fusion L2-4, and subsequent revision L2-5 lami/fusion with posterior hardware and interbody cages. 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 Author Type: Physician Hemodialysis Technician Type: Progress Notes Filed: 07/07/2019 1:08 PM Note Text: Caitlyn Cantu PA-C [facility] [address] [place] [address] 07/07/2019 Assessment Diagnosis: Encounter Diagnosis ICD-10-CM 1. [...] told for multiple years that she has hbmn-md-ylgt arthritis in the right knee and this [...] record for those providers who practice within [facility] or with access to [employer] via MD Connect, or via letter. SUBJECTIVE: [...] past--performed [place] [address] Jones in [place]. The procedure was a spinal laminectomy and fusion L2-4, and subsequent revision L2-5 lami/fusion with posterior hardware and interbody cages. 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 IMAGING STUDIES: See above [facility] CT-CT cervical spine w con I MPORTon 04-08-2019 CT-CT cervical spine w con IMPORT Images were obtained outside of [facility] [id number] N [facility] CT-CT cervical spine w con IMPORT Images were obtained outside of [facility] [id number] N [facility] CT-CT cervical spine w con IMPORT Images were obtained outside of [facility] [id number] N [facility] CT-CT lumbar spine w con IMP Edi 04-08-2019 CT-CT lumbar spine w con IMPORT Images were obtained outside of [facility] [id number] N [facility] CT-CT lumbar spine w con IMPORT Images were obtained outside of [facility] [id number] N [facility] CT-CT lumbar spine w con IMPORT Images were obtained outside of [facility] [id number] N [facility] OT-IR myelogram spine total IMPORTon 04-08-2019 OT-IR myelogram spine total IMPORT Images were obtained outside of [facility] [id number] N [facility] OT-IR myelogram spine total IMPORT Images were obtained outside of [facility] [id number] N [facility] OT-IR myelogram spine total IMPORT Images were obtained outside of [facility] [id number] N [facility] OT-MRI C-SPINE WO CON IMPORT on 02-25-2019 OT-MRI C-SPINE WO CON IMPORT Images were obtained outside of [facility] [id number] N [facility] OT-XR KNEE RT 4V OR > IMPORT on 11-30-2018 OT-XR KNEE RT 4V OR > IMPORT Images were obtained outside of [facility] [id number] N [facility] Vital Signs Date Time Vital Sign Value Performing Clinician Facility 12-30-2023 09:55-0500 Body height 167.64 cm [facility] 12-30-2023 09:55-0500 Body mass index (BMI) [Ratio] 38.9 kg/m2 [facility] 12-30-2023 09:55-0500 Body weight 109.31 kg [facility] 12-30-2023 09:55-0500 Diastolic blood pressure 76 mm[Hg] [facility] 12-30-2023 09:55-0500 Heart rate 69 /min [facility] 12-30-2023 09:55-0500 Systolic blood pressure 120 mm[Hg] [facility] 12-09-2023 10:32-0500 Diastolic blood pressure 80 mm[Hg] Iban Lu MD Work Phone: [facility] 12-09-2023 10:32-0500 Systolic blood pressure 130 mm[Hg] Iban Lu MD Work Phone: [facility] 12-09-2023 09:46-0500 Body height 167.6 cm Iban Lu MD Work Phone: [facility] 12-09-2023 09:46-0500 Body mass index (BMI) [Ratio] 39.06 kg/m2 Iban Lu MD Work Phone: [facility] 12-09-2023 09:46-0500 Body weight 109.77 kg Iban Lu MD Work Phone: [facility] 12-09-2023 09:46-0500 Heart rate 68 /min Iban Lu MD Work Phone: [facility] 08-20-2023 09:00-0400 Body height 167.64 cm Toby Quintana Other [employer] Other 08-20-2023 09:00-0400 Body mass index (BMI) [Ratio] 38.38 kg/m2 Toby Quintana Other [employer] Other 08-20-2023 09:00-0400 Body weight 107.87 kg Toby Quintana Other [employer] Other 08-20-2023 09:00-0400 Diastolic blood pressure 75 mm[Hg] Toby Quintana Other [employer] Other 08-20-2023 09:00-0400 Systolic blood pressure 108 mm[Hg] Toby Quintana Other [employer] Other 04-24-2023 11:15-0400 Body height 167.64 cm Toby Quintana Other [employer] Other 04-24-2023 11:15-0400 Body mass index (BMI) [Ratio] 38.73 kg/m2 Toby Quintana Other [employer] Other 04-24-2023 11:15-0400 Body weight 108.86 kg Toby Quintana Other [employer] Other 04-24-2023 11:15-0400 Diastolic blood pressure 79 mm[Hg] Toby Quintana Other [employer] Other 04-24-2023 11:15-0400 Systolic blood pressure 114 mm[Hg] Toby Quintana Other [employer] Other 02-07-2023 09:30-0400 Body height 167.64 cm Toby Quintana Other [employer] Other 02-07-2023 09:30-0400 Body mass index (BMI) [Ratio] 39.99 kg/m2 Toby Quintana Other [employer] Other 02-07-2023 09:30-0400 Body weight 112.4 kg Toby Quintana Other [employer] Other 02-07-2023 09:30-0400 Diastolic blood pressure 68 mm[Hg] Toby Quintana Other [employer] Other 02-07-2023 09:30-0400 Respiratory rate 18 /min Toby Quintana Other [employer] Other 02-07-2023 09:30-0400 SaO2% (BldA) [Mass fraction] 93 % Toby Quintana Other [employer] Other 02-07-2023 09:30-0400 Systolic blood pressure 142 mm[Hg] Toby Quintana Other [employer] Other 01-08-2023 10:00-0500 Body height 167.64 cm [employer] Other [employer] Other 01-08-2023 10:00-0500 Body mass index (BMI) [Ratio] 40.19 kg/m2 [employer] Other [employer] Other 01-08-2023 10:00-0500 Body weight 112.95 kg [employer] Other [employer] Other 12-09-2022 13:25-0500 Body height 167.64 cm Toby Quintana Work Phone: [facility] [employer] 250 DO Work Phone: 12-09-2022 13:25-0500 Body mass index (BMI) [Ratio] 40.03 kg/m2 Toby Quintana Work Phone: [email or web address] 250 DO Work Phone: 12-09-2022 13:25-0500 Body surface area Derived from formula 2.19 m2 Toby Quintana Work Phone: [facility] 250 DO Work Phone: 12-09-2022 13:25-0500 Body weight 112.49 kg Toby Quintana Work Phone: [facility] 250 DO Work Phone: 12-09-2022 13:25-0500 Diastolic blood pressure 80 mm[Hg] Toby Quintana Work Phone: [facility] 250 DO Work Phone: 12-09-2022 13:25-0500 Heart rate 78 /min Toby Quintana Work Phone: [facility] [employer] 250 DO Work Phone: 12-09-2022 13:25-0500 Systolic blood pressure 118 mm[Hg] Toby Quintana Work Phone: [facility] [employer] 250 DO Work Phone: 11-22-2022 09:00-0500 Body height 167.64 cm Leeann Blades Other [employer] [facility] [employer] Other 11-22-2022 09:00-0500 Body mass index (BMI) [Ratio] 39.54 kg/m2 Leeann Blades Other [employer] Other 11-22-2022 09:00-0500 Body weight 111.13 kg Leeann Blades Other [employer] Other 09-04-2021 13:27-0400 Body height 170.18 cm Toby Quintana Work Phone: [facility] [employer] 250 DO Work Phone: 09-04-2021 13:27-0400 Body mass index (BMI) [Ratio] 39.78 kg/m2 Toby Quintana Work Phone: [facility] 250 DO Work Phone: 09-04-2021 13:27-0400 Body surface area Derived from formula 2.24 m2 Toby Quintana Work Phone: [facility] 250 DO Work Phone: 09-04-2021 13:27-0400 Body weight 115.21 kg Toby Quintana Work Phone: [facility] 250 DO Work Phone: 09-04-2021 13:27-0400 Diastolic blood pressure 78 mm[Hg] Toby Quintana Work Phone: [facility] 250 DO Work Phone: 09-04-2021 13:27-0400 Heart rate 80 /min Toby Quintana Work Phone: [facility] 250 DO Work Phone: 09-04-2021 13:27-0400 Systolic blood pressure 104 mm[Hg] Toby Quintana Work Phone: [facility] 250 DO Work Phone: Encounters Encounter Date Encounter Type Care Provider Facility Start: 12-30-2023 Patient encounter procedure [facility] Start: 12-30-2023 End: 12-30-2023 ambulatory [facility] Work Phone: Start: 12-30-2023 End: 12-30-2023 Patient encounter procedure [facility] Work Phone: Start: 12-19-2023 End: 12-19-2023 ambulatory Toby Quintana Other [facility] [employer] Other Start: 12-19-2023 Telephone encounter Toby Quintana [facility] Start: 12-17-2023 End: 12-17-2023 ambulatory Toby Quintana Other [employer] Other Start: 12-17-2023 Telephone encounter Toby Quintana [facility] Start: 12-16-2023 (Televisit) Televisit Toby Busby [facility] Start: 12-16-2023 End: 12-16-2023 ambulatory Toby Quintana Other [employer] Other Start: 12-09-2023 End: 12-09-2023 ambulatory IBAN [facility] Start: 12-09-2023 End: 12-09-2023 Office outpatient visit 25 minutes Iban Lu MD Work Phone: [facility] Comment on above: Supraventricular tac hycardia by ECG (Primary Dx); Mixed hyperlipidemia; Palpitations; Class II obesity Start: 12-08-2023 End: 12-08-2023 ambulatory Toby Quintana Other [employer] Other Start: 12-08-2023 Telephone encounter Toby Pat [facility] Start: 11-04-2023 End: 11-04-2023 ambulatory Toby Quintana Other [employer] Other Start: 11-04-2023 Telephone encounter Toby Pat [facility] Start: 10-21-2023 (Televisit) Televisit Toby Busby [facility] Start: 10-21-2023 End: 10-21-2023 ambulatory Toby Quintana Other [employer] Other Start: 10-21-2023 End: 10-21-2023 Patient encounter procedure [facility] Work Phone: Start: 10-20-2023 End: 10-20-2023 ambulatory Toby Quintana Other [employer] Other Start: 10-20-2023 Telephone encounter Toby Quintana [facility] Start: 09-25-2023 (Televisit) Televisit Toby Quintana [place] [facility] Start: 09-25-2023 End: 09-25-2023 ambulatory Toby Quintana Other [employer] Other Start: 09-22-2023 (Televisit) Televisit Toby Quintana [place] [facility] Start: 09-22-2023 End: 09-22-2023 ambulatory Toby Quintana Other [employer] Other Start: 09-22-2023 Telephone encounter Toby Pat [facility] Start: 08-20-2023 End: 08-20-2023 ambulatory Toby Quintana Other [employer] Other Start: 08-20-2023 Patient encounter procedure Toby Quintana [facility] Start: 05-22-2023 Telephone encounter Toby Michael raun Work Phone: [facility] 600 DO Work Phone: Start: 05-12-2023 End: 05-12-2023 ambulatory Toby Pat Other [employer] Other Start: 05-12-2023 Telephone encounter Toby Pat [facility] Start: 04-24-2023 End: 04-24-2023 ambulatory Toby Quintana Other [employer] Other Start: 04-24-2023 Office outpatient vi sit 15 minutes Toby Quintana [facility] Start: 04-11-2023 End: 04-11-2023 ambulatory Toby Quintana Other [employer] Other Start: 04-11-2023 Telephone encounter Toby Quintana [facility] Start: 03-13-2023 End: 03-13-[address] AGUSTIN BYERS Facility:UNKNOWN Start: 03-13-[address] Toby Quintana Facility:[id number] Start: 02-07-2023 End: 02-07-2023 ambulatory Toby Quintana Other [employer] Other Start: 02-07-2023 Patient encounter procedure Toby Quintana [facility] Start: 02-03-2023 End: 02-03-2023 ambulatory Leeann Blades Other [employer] Other Start: 02-03-2023 Telephone encounter Leeann Blades [facility] [employer] Start: 01-27-2023 End: 01-27-2023 ambulatory Leeann Blades Other [employer] Other Start: 01-27-2023 Telephone encounter Leeann Blades [facility] Start: 01-21-[address] TOBY QUINTANA Facil ity:H1 Start: 01-16-2023 End: 01-16-2023 ambulatory Samuel Chatman II Other [employer] Other Start: 01-16-2023 Telephone encounter Samuel Chatman II [facility] [employer] [employer] Start: 01-08-2023 FQHC visit new patient Samuel Goodman le II [facility] Start: 01-08-2023 End: 01-08-2023 ambulatory Samuel M Carmel II [facility] Start: 01-08-2023 End: 01-08-2023 ambulatory MD Toby Quintana Work Phone: [facility] Work Phone: Start: 01-08-2023 End: 01-08-2023 Patient encounter procedure MD Toby Quintana Work Phone: [facility] Start: 01-02-2023 End: 01-02-2023 ambulatory Toby Quintana Other [employer] Other Start: 01-02-2023 Telephone encounter Leeann Blades F PG [facility] Start: 12-30-2022 End: 12-30-2022 ambulatory Leeann Blades Other [employer] Other Start: 12-30-2022 Telephone encounter Leeann Blades F PG [facility] Start: 12-26-2022 End: 12-26-2022 ambulatory Leeann Blades Other [employer] Other Start: 12-26-2022 Telephone encounter Leeann Blades F PG [facility] Start: 12-19-2022 End: 12-19-2022 ambulatory Leeann Blades Other [employer] Other Start: 12-19-2022 Telephone encounter Leeann Blades F PG [facility] Start: 12-17-2022 End: 12-17-2022 ambulatory Toby Quintana Other [employer] Other Start: 12-17-2022 Telephone encounter Toby Quintana [facility] Start: 12-10-2022 End: 12-10-2022 ambulatory Toby Quintana Other [employer] Other Start: 12-10-2022 Telephone encounter Toby Quintana [facility] Start: 12-09-2022 Office outpatient vi sit 25 minutes Toby Quintana Work Phone: [facility] 250 DO Work Phone: Start: 12-09-[address] Iban Lu Facility: Start: 11-25-2022 End: 11-25-2022 ambulatory Leeann Blades Other [employer] Other Start: 11-25-2022 Telephone encounter Leeann Blades F PG [employer] Start: 11-22-2022 Office outpatient ne w 45 minutes Leeann Blades [facility] Start: 11-22-2022 End: 11-22-2022 ambulatory Leeann Blades [facility] Start: 11-22-2022 End: 11-22-2022 ambulatory MD Toby Quintana Work Phone: [facility] Work Phone: Start: 11-22-2022 End: 11-22-2022 Patient encounter procedure MD Toby Quintana Work Phone: [facility] [place] Work Phone: Start: 11-05-2022 Adult health examination Nannette Quintana Other [employer] Other Start: 11-05-2022 Pre-procedure evalua tion check Toby Quintana Other [employer] Other Start: 10-04-2022 End: 10-05-[address] SHALA OMER Facility:[facility] Start: 09-16-2022 Rx Renewal Toby Quintana Work Phone: [facility] 250 DO Work Phone: Start: 07-24-2022 End: 07-24-[address] TOBY QUINTANA Facility:[facility] Start: 07-22-2022 End: 07-22-[address] LAUREL BRAVO Facility:[facility] Start: 04-18-2022 Encounter for genera l adult medical examination without abnormal findings DR TOBY QUINTANA [facility] Start: 04-13-2022 End: 04-14-[address] TOBY QUINTANA Facility:[facility] Start: 04-12-2022 End: 04-13-[address] TOBY QUINTANA Facility:[facility] Start: 04-12-2022 End: 04-13-2022 Encounter for general adult medical examination without abnormal findings DR TOBY QUINTANA Facility:[facility] Start: 09-04-2021 FUV, Provider: Iban Lu, Status: Pen, Time: 2:00 PM Toby Quintana Work Phone: [facility] [address] [place] Work Phone: Start: 09-04-2021 Office outpatient vi sit 25 minutes Toby Quintana Work Phone: [facility] 250 DO Work Phone: Start: 08-30-2021 Rx Renewal Toby Quintana Work Phone: [facility] [place] Work Phone: Procedures Date Procedure [...] of patient Toby Quintana Other Cholecystectomy Toby Chavez un Work Phone: Hysterectomy Toby Schofield Pat Work Phone: Procedure on back Toby Schofield B raun Work Phone: Plan of Treatment Date Care Activity Detail Author Start: 12-09-2024 End: 12-09-2024 Patient encounter procedure 12/09/2024 9:00 AM EST Office Visit [facility] [address] [address] Iban Lu MD 703 [facility] [address], [address] [id number] [facility] Start: 12-09-2023 End: 12-09-2024 Basic metabolic 2000 panel - Serum or Plasma Basic Metabolic Panel Lab Routine Supraventricular tachycardia by ECG Palpitations Expected: 12/09/2023 (Approximate), Expires: 12/09/2024 [facility] Service Area Work Phone: Comment on above: Expected: 12/09/2023 (Approximate), Expires: 12/09/2024 Start: 12-09-2023 FUV, Provider: Iban Lu, Status: Pen, Time: 10:00 AM FUV, Provider: Iban Lu, Status: Pen, Time: 10:00 AM [facility] [employer] 250 DO Work Phone: Start: 07-11-2023 COVID-19 Vaccine ( season) COVID-19 Vaccine ( season) [facility] Start: 07-11-2023 Influenza vaccination Influenza Vacc ine (#1) [facility] Start: 09-20-2022 FUV, Provider: Iban Lu, Status: Pen, Time: 2:20 PM FUV, Provider: Iban Lu, Status: Pen, Time: 2:20 PM [facility] [employer] 250 DO Work Phone: Start: 09-05-2022 FUV, Provider: Iban Lu, Status: Pen, Time: 11:20 AM FUV, Provider: Iban Lu, Status: Pen, Time: 11:20 AM -[facility] [employer] 250 DO Work Phone: Start: 01-19-2006 Zoster Vaccines (1 o f 2) Zoster Vaccines (1 of 2) [facility] Start: 1996 Screening for malign ant neoplasm of breast Mammogram [facility] Start: 01-19-1978 DTaP/Tdap/Td Vaccine s (1 - Tdap) DTaP/Tdap/Td Vaccines (1 - Tdap) [facility] Start: 01-19-1974 Hepatitis C screening Hepatitis C Sc [facility] Start: 01-19-1962 Pneumococcal Vaccine : 65+ Years (1 - PCV) Pneumococcal Vaccine: 65+ Years (1 - PCV) [facility] Start: 1955 Lipid panel Lipid Panel [facility] Start: 1955 Medicare Annual Wellness Visit Medicare Annual Wellness Visit (AWV) [facility] Start: 1955 Screening for malign ant neoplasm of colon [facility] Start: 1955 Screening for osteoporosis Bone Density Scan [facility] Comprehensive metabo lic 2000 panel - Serum or Plasma [facility] Immunizations Immunization Date Immunization Notes Care Provider Elizabeth porras 09-06-2022 Pfizer COVID-19 Vac Bivalent 30 MCG/0.3ML Intramuscular Suspension Toby Quintana Work Phone: [facility] 250 DO Work Phone: 07-02-2021 Pfizer-BioNTech COVI D-19 Vacc 30 MCG/0.3ML Intramuscular Suspension Toby Quintana Work Phone: [facility] Comment on above: Series: 06-11-2021 Pfizer-BioNTech COVI D-19 Vacc 30 MCG/0.3ML Intramuscular Suspension Toby Quintana Work Phone: [facility] Comment on above: Series: 09-12-2014 tetanus and diphther ia toxoids, adsorbed, preservative free, for adult use (5 Lf of tetanus toxoid and 2 Lf of diphtheria toxoid) Toby Quintana Other [facility] 09-15-2013 tetanus and diphther ia toxoids, adsorbed, preservative free, for adult use (5 Lf of tetanus toxoid and 2 Lf of diphtheria toxoid) Toby Quintana Other [facility] 09-14-2013 influenza, seasonal, injectable Toby Quintana Work Phone: [facility] 09-14-2013 influenza virus vacc ine, unspecified formulation Iban Lu MD Work Phone: [facility] Work Phone: 08-10-2013 influenza virus vacc ine, unspecified formulation Toby Quintana Work Phone: [facility] 250 DO Work Phone: 07-19-2012 influenza virus vacc ine, unspecified formulation Toby Quintana Work Phone: [facility] 250 DO Work Phone: 11-10-2009 influenza virus vacc ine, unspecified formulation Toby Quintana Work Phone: [facility] 250 DO Work Phone: 08-10-2009 influenza virus vacc ine, unspecified formulation Toby Quintana Work Phone: [facility] 250 DO Work Phone: 07-14-2007 pneumococcal polysaccharide vaccine, 23 valent Toby Quintana Other [facility] Payers Date Payer Category Payer Medicare [id number] 2023 Medicare [employer] MEDICARE A ETNA MEDICARE VALUE PLAN [id number] 2023-Present [address] [place] [address] [id number] 2022 Self-pay [id number] 1959 Unknown [id number] 1959 Unknown [id number] 2.16.8 [id number] 1956 Unknown [id number] 1956 Unknown [id number] [id number] 1956 Unknown [id number] 1956 Unknown [id number] [id number] 1956 Unknown [id number] [id number] 1956 Unknown [id number] [id number] 1956 Unknown [id number] [id number] 1956 Unknown [id number] [id number] 1956 Unknown [id number] [id number] 1956 Unknown [id number] Unknown Unknown HCAP/HFA/FAP Active [id number] Unknown [id number] Unknown [id number] [id number] Social History Date Type Detail Facility Start: 12-09-2023 No illicit drug use No illicit drug use [address] Work Phone: Comment on above: Coffee 1 cup daily; quit 1987; Start: 1955 Sex Assigned At Female F [facility] Start: 12-09-2023 Sex Assigned At N [facility] [employer] Other Start: 12-09-2023 Tobacco smoking status NHIS Ex-smoker [facility] Work Phone: History of tobacco use Current smoker [facility] Work Phone: History of tobacco use Cigarette Smoker [facility] Work Phone: Start: 12-09-2023 Tobacco use and exposure Smokeless tobacco non-user [facility] Work Phone: Start: 12-09-2023 Alcohol intake Lifetime non-d mary (finding) [facility] Work Phone: Start: 1955 Sex Assigned At Not on file [facility] Work Phone: Start: 11-29-2023 End: 12-09-2023 Exposure to SARS-CoV-2 (event) Not sure [facility] Clinical Notes 11-22-2022 to 12-17-2023 Note Date & Type Note Facility 12-17-2023 Evaluation note Encounter Date Diagnosis Assessment Notes Dec, Jaw swelling (ICD-10 - R22.0) [employer] Other 02-06-2024 Evaluation note* Encounter Date Diagnosis Assessment Notes Treatment Notes Treatment Clinical Notes Dec, Dental infection (ICD-10 - K04.7) Pt will contact her insurance, find a different dentist. Will continue antibiotic at this time. [employer] Other 01-30-2024 History of Present illness Narrative* Iban Lu MD - 12/09/2023 10:00 AM EST Tatyana [...] falls. Annual follow-up will be scheduled Iban Lu MD, FACC Review of Systems Cardiovascular: Positive for palpitations. [...] EVENING, Disp: 225 tablet, Rfl: 0 omega 9-fmo-jzj-fish oil 360 mg-108 mg- 180 mg-1,200 mg [...] Attestation By signing my name below, I, [email or web address] , Scribe attest that this documentation has been prepared under the direction and in the presence of Iban Lu MD. documented in this [facility] Work Phone: 1(638) 320-619001-30-2024 Instructions* Patient Instructions* Nataliya Mnaning LPN - 12/09/2023 10:00 AM EST Please [...] [facility] up one [facility] Work Phone: [phone]) 403-159812-12-2023 Evaluation note* Encounter Date Diagnosis Assessment Notes Treatment Notes Treatment Clinical Notes Oct, Open fracture of tooth, initial encounter (ICD-10 - S02.5XXB) Keep area clean, brush and rinse frequently. seeing dentist next week. Oct, Lumbar radiculitis (ICD-10 - M54.16) pt requests refill for her chronic back issues. We discussed her treatment plan w Dr. Byers. [employer] Other 11-16-2023 Evaluation note* Encounter Date Diagnosis Assessment Notes Treatment Notes Treatment Clinical Notes Sep, Lumbar radiculitis (ICD-10 - M54.16) CHanged pain med. Jax will call Dr. Byers's office for a change in treatment plan and an appt. Sep, Nausea & vomiting (ICD-10 - R11.2) States that zofran has not helped in the past - phenergan sent in for short term use. [employer] Other 11-13-2023 Evaluation note* Encounter Date Diagnosis Assessment Notes Treatment Notes Treatment Clinical Notes Sep, Radiculopathy, lumbar region (ICD-10 - M54.16) My staff reviewed her case with Dr. Byers's staff. She is to call their office for follow-up appointment next month. Patient does not want another injection and would rather have an ablation. Trial of tramadol sent to pharmacy. OARRS reviewed. [employer] Other 10-11-2023 Evaluation note* Encounter Date Diagnosis Assessment Notes Treatment Notes Treatment Clinical Notes Aug, Pain in right knee (ICD-10 - M25.561) Aug, Other chronic pain (ICD-10 - G89.29) Aug, Pain in left knee (ICD-10 - M25.562) [employer] Other 03-31-2023 Evaluation note* Encounter Date Diagnosis Assessment Notes Treatment Notes Treatment Clinical Notes Jan, Nausea & vomiting (ICD-10 - R11.2) Jan, Pain in right knee (ICD-10 - M25.561) Jan, Other chronic pain (ICD-10 - G89.29) Jan, Pain in left knee (ICD-10 - M25.562) [employer] Other 03-31-2023 Evaluation note* Encounter Date Diagnosis Assessment Notes Treatment Notes Treatment Clinical Notes Jan, Nausea & vomiting (ICD-10 - R11.2) chronic problem - requesting refill on Zofran Jan, Pain in right knee (ICD-10 - M25.561) Jan, Other chronic pain (ICD-10 - G89.29) Jan, Pain in left knee (ICD-10 - M25.562) [employer] Other 03-01-2023 Evaluation note* Encounter Date Diagnosis [...] She would prefer to stay close to [place]. Our office is working to get her referral to pain management near [place]. [employer] Other 01-31-2023 Evaluation note* Encounter Date Diagnosis Assessment Notes Treatment Notes Treatment Clinical Notes Nov, Lumbar pain (ICD-10 - M54.50) [employer] Other 01-13-2023 Evaluation note* Encounter Date Diagnosis Assessment Notes Treatment Notes Treatment Clinical Notes Nov, Low back pain, unspecified back pain laterality, unspecified chronicity, unspecified whether sciatica present (ICD-10 - M54.50) [employer] Other evaluation noteNo assessment information available [facility] Work Phone: Evaluation noteNo [employer] Other [facility] Other Evaluation note* Diagnosis Supraventricular tachycardia by ECG- Primary Mixed hyperlipidemia Palpitations Class II obesity documented in this encounter [facility] Work Phone: Evaluation note* Diagnosis Onset Date Resolution Status Fatigue acute Hyperlipidemia acute Lumbar radiculopathy, chronic acute Medicare annual wellness visit, subsequent acute SVT (supraventricular tachycardia) acute [facility] Work Phone: History general Narrative - Reported* [...] right rib resection Surgical History spinal fusion 2015 Surgical History Heart ablation Surgical History Hand Sx Surgical History Thoracic Sx Hospitalization History childbirth Hospitalization History hysterectomy Hospitalization History pancreatitis [facility] [employer] Other History [facility] - [facility] [employer] Other Reason for referral (narrative)* Consultation (Routine) - Authorized Specialty Diagnoses / Procedures Referred By Contac t Referred To Contact Cardiology Diagnoses Supraventricular tachycardia by ECG Procedures Follow Up In Cardiology Iban Lu MD [address] [place] [address] [address] [address] Iban Lu MD [address] [place] [address] [address], [address] [address] Referral ID Status Reason Start Date Expiration Date V isits Requested Visits Authorized [id number] Authorized 12/09/2023 12/08/2024 1 1 [facility] Work Phone: Reason for visit NarrativePain Medicine Referral [facility] [employer] Other Summary Purpose Family History Unknown Family [...] erotic cardiovascular disease: Father, Brother(V17.49, Z82.49) Status:Active Relationship Condition Age at Onset Recorded Date/T harris brother Malignant neoplasm Unknown father Unknown family member Unknown grandparent Unknown Not Specified Unknown Advance Directives Advance Directive Response Recorded Date/ Time Advance Directives No March 24 9 3:29pm Procedure Findings Note Patient: ADRIANA DINERO [...] Annual follow-up will be scheduled * Iban Lu MD, [facility] * ADRIANA DINERO is being seen for [...] and provided the patient with 2 local community health representative in town. * ASSESSMENT AND PLAN: * 1. 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) Diagnosis 3 Other chronic pain ( G89.29) Diagnosis 4 Low back pain, unspe cified (M54.50) Referral Organization [facility] urosurgery Referring Provider First Name Leeann Referring Provider Last Name Mariano Referring Provider Specialty Neurologica l Surgery Referred Organization [facility] Referred Provider Albertina Oconnell Referred Address [address], [place],[address] Referred Provider Specialty Pain Medicin e Referral Priority Routine Referral Appointment Date 2023-01-21 General Notes Klaudia Golden 023 09:03:40 AM >Received today and waiting for office notes to be locked before sending referral [facility] 01/01/2023 07:37:06 AM >Referral was fax [facility] 01/08/2023 09:26:41 AM >Referral was refax to the correct office with their form Lakeisha Trini 01/08/2023 02:11:33 PM >received letter, pt has appt scheduled for 01/21/2023 Clinical Notes Phone: Reason 01/08/23 @ 10:00am Evaluate and Treat Hip Pain Diagnosis 1 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) Referral Organization [facility] urosurgery Referring Provider First Name Leeann Referring Provider Last Name Mariano Referring Provider Specialty Neurologica l Surgery Referred Organization [facility] Referred Provider Samuel Chatman II Referred Address [address] [place],[address] Referred Provider Specialty Orthopaedic Surgery Referral Priority Routine Referral Appointment Date 2023-01-08 General Notes [facility] 023 10:20:34 AM >Received today and sent P2P [facility] 01/01/2023 12:05:35 PM >Patient was scheduled [facility] 01/15/2023 09:30:10 AM >Office notes not locked yet [facility] 01/16/2023 08:43:03 AM >Sent telephone encounter to referring physician to let them know that the consult letter is ready for their review Reason DECLINED lumbar an d knee pain Diagnosis 1 Lumbar pain (M54.50) Referral Organization [facility] Referring Provider First Name Toby Referring Provider Last Name Pat Referring Provider Specialty Family Medi cine Referred Organization [facility] Referred Provider Paddy De Los Santos Referred Address [address] [facility] [place],[address] Referred Provider Specialty Rheumatology Referral Priority Routine [...] for review. Closing referral Clinical Notes Dr. Destiny ESTRADA? Additional Source Comments INFORMATION SOURCE (unrecogn ized section and content) DATE CREATED AUTHOR [facility]2019 [facility] DATE CREATED AUTHOR AUTHOR'S ORGANIZ ATION 11/04/2019 [facility] DATE CREATED AUTHOR AUTHOR'S ORGANIZ ATION 05/31/2020 [facility] DATE CREATED AUTHOR AUTHOR'S ORGANIZ ATION 12/06/2020 [facility] DATE CREATED AUTHOR AUTHOR'S ORGANIZ ATION 04/21/[address] [facility] DATE CREATED AUTHOR AUTHOR'S ORGANIZ ATION 12/10/2022 [employer] DATE CREATED AUTHOR AUTHOR'S ORGANIZ ATION 01/10/[address] [facility] p[facility] DATE CREATED AUTHOR AUTHOR'S ORGANIZ ATION 01/17/2023 [facility] DATE CREATED AUTHOR AUTHOR'S ORGANIZ ATION 03/18/2023 [facility] DATE CREATED AUTHOR AUTHOR'S ORGANIZ ATION 06/09/2023 [facility] DATE CREATED AUTHOR AUTHOR'S ORGANIZ ATION 12/12/2023 [facility] Research Teams (unrecognized sec tion and content) Team Status: Inactive Member Role Status Dates Toby Quintana MD Primary Care Provider Active Leeann Quintana Attending Provider Active Team Status: Active Member Role Status Dates Toby Quintana MD Primary Care Provider Active Team Status: Inactive Member Role Status Dates Toby Quintana MD Primary Care Provider Active Samuel Chatman II, MD Attending Provider Active Director Of Contracts Relationship Specialty Start Date End Date Toby Quintana MD PCP - General 08/25/19 Team Status: Inactive Member Role Status Dates Toby Quintana MD Attending Provider Active St art: October 21, 2023 End: October 21, 2023 Team Status: Inactive Member Role Status Dates Toby Quintana MD Primary Care Provide r, Attending Provider Active Start: December 30, 2023 End: December 30, 2023 Goals (unrecognized section and content) Goals may be documented in a n alternate sectionNo InformationNo InformationNo InformationGoals may be documented in an alternate sectionNo InformationNo InformationNo InformationNo InformationNo InformationNo InformationNo InformationNo InformationNo InformationNo InformationNo InformationNo InformationNo InformationNo InformationNo InformationNo InformationNo InformationNo InformationNo InformationNo InformationNo InformationNo InformationNo InformationNo InformationNo InformationNo InformationNo InformationNo InformationNo InformationNo InformationNo InformationNo InformationNo InformationGoals may be documented in an alternate section REASON FOR VISIT (unrecogniz ed section and content) Reason Comments Annual Exam 1yr FOR RECORDS [...] BE BASED ON THE PRIMARY CLINICAL RECORDS. [facility]. provides no warranty or guarantee of the accuracy or completeness of information in this document.
[2024-01-14] MEDS: ASPIRIN 81 MG TAB.CHEW 162 MG PO (17:33)
[2024-01-14 17:44] LABS: Basophils Absolute Auto 0.1 10^3/uL (0.0-0.1); Basophils Percent Auto 0.5 % (0.2-2.0); Eosinophils Absolute Auto 0.1 10^3/uL (0.0-0.7); Eosinophils Percent Auto 1.3 % (0.9-7.0); Hematocrit 44.4 % (36.0-48.0); Hemoglobin 14.1 g/dL (12.0-16.0); Immature Granulocytes Abs Auto 0.03 10^3/uL (0.00-0.03); Immature Granulocytes Pct Auto 0.3 % (0.0-0.5); Lymphocytes Absolute Auto 1.9 10^3/uL (1.2-3.8); Lymphocytes Percent Auto 20.3 % (20.5-60.0); Mean Corpuscular HGB Conc 31.8 g/dL (29.9-35.2); Mean Corpuscular Hemoglobin 28.4 pg (26.7-34.0); Mean Corpuscular Volume 89.5 fL (81.0-99.0); Mean Platelet Volume 9.4 fL (9.5-13.5); Monocytes Absolute Auto 0.8 10^3/uL (0.3-0.8); Monocytes Percent Auto 8.5 % (1.7-12.0); Neutrophils Absolute Auto 6.3 10^3/uL (1.4-6.5); Neutrophils Percent Auto 69.1 % (43.0-75.0); Platelet Count 238 10^3/uL (150-450); Red Blood Count 4.96 10^6/uL (4.20-5.40); Red Cell Distribution Width 13.6 % (11.0-15.0); White Blood Count 9.2 10^3/uL (4.0-11.0)
[2024-01-14 17:55] LABS: Influenza Virus A Antigen Negative; Influenza Virus B Antigen Negative; Internal Control Within Normal Limits; SARS-CoV-2 Ag NEGATIVE (NEGATIVE)
[2024-01-14 17:56] LABS: Partial Thromboplastin Time 23.5 sec (22.3-36.2); Prothrombin Time 9.3 sec (9.0-11.6)
[2024-01-14 18:03] LABS: Alanine Aminotransferase 36 U/L (14-59); Albumin Globulin Ratio 0.7; Albumin Level 2.9 g/dL (3.4-5.0); Alkaline Phosphatase 126 U/L (46-116); Anion Gap 5.5; Aspartate Amino Transferase 24 U/L (15-37); Bilirubin Total 0.4 mg/dL (0.2-1.0); Calcium 8.7 mg/dL (8.5-10.1); Carbon Dioxide 30.5 mmol/L (21.0-32.0); Chloride 109 mmol/L (98-107); Estimated GFR (African America >60 (>=60); Estimated GFR (Non-African Ame >60 (>=60); Globulin 3.9 g/dL; Glucose 108 mg/dL (74-106); Sodium 141 mmol/L (136-145); Total Protein 6.8 g/dL (6.4-8.2); Troponin I High Sensitivity 6.6 pg/mL (4.0-51.3)
[2024-01-14 18:33] LABS: INR <0.93
[2024-01-14 18:35] LABS: D Dimer 0.78 mg/L FEU (<=0.59)
--- NOTE | 2024-01-14 18:35 | CT_ITS ---
The [address] [address] Patient Name: INDERJIT MANN MRN: [id number] date: 1955 Sex: F Assigned Patient Location: ER Current Patient Location: ER Accession/Order Number: [id number] Exam Date: 01/14/2024 18:51 Report Date: 01/14/2024 19:39 At the request of: JASSI ZUNIGA Procedure: CT angio chest EXAM: CT pulmonary angiogram of the chest using 98 mL of IV iodinated contrast. 3-D imaging was performed. Dose reduction technique used: Automated exposure control and/or adjustment of the mA and/or kV according to patient size and/or use of iterative reconstruction technique. REASON FOR EXAM: Chest pain COMPARISON: CT scan dated 01/21/2019 FINDINGS: No pulmonary emboli. No aortic dissection. No pneumothorax. No acute airspace opacities. No pleural effusion. No acute fractures. No concerning pulmonary nodules. No definite lymphadenopathy in the chest. Cardiomegaly. 6 mm nodule in the right lower lobe, this is not substantially changed since 2019 and likely benign. Remainder unremarkable. CT/CT angio chest IMPRESSION: No pulmonary embolism or acute abnormalities in chest. Electronically authenticated by: JA LONDON Date: 01/14/2024 19:39
[2024-01-14 20:15] LABS: Troponin I High Sensitivity 6.8 pg/mL (4.0-51.3)
== END 2024-01-14 20:32 | disposition home or self-care (01) ==
PROVIDERS: Physician Assistant; Emergency Provider Emergency Medicine; PCP Family Medicine
DX: R07.9 Chest pain, unspecified (principal); R06.02 Shortness of breath; I10 Essential (primary) hypertension; R79.89 Other specified abnormal findings of blood chemistry
CPT/HCPCS: 36415; 71275; 80053; 83880; 84484; 85025; 85378; 85610; 85730; 87804; 87811; 93005; 99285; Q9967

== ENCOUNTER 2024-02-13 09:17 | Outpatient (OUT) | payer MEDICARE, SELFPAY ==
--- NOTE | 2024-02-13 | XR_ITS ---
The [address] [address] Patient Name: INDERJIT MANN MRN: [id number] date: 1955 Sex: F Assigned Patient Location: Current Patient Location: Accession/Order Number: [id number] Exam Date: 02/13/2024 09:20 Report Date: 02/14/2024 05:15 At the request of: IVETT CONLEY Procedure: XR lumbar spine min 4V EXAMINATION: XR lumbar spine min 4V HISTORY: LUMBAR PAIN COMPARISON: XR L-spine 11/02/2018 FINDINGS: BONES: Mechanical fusion L2-L3-4 via bilateral pedicle screws and rods; no appreciable hardware fracture or loosening. No bone fracture, spondylolisthesis, or change in alignment during flexion and extension. Mild left convex curvature of lumbar spine. DISC SPACES: Intervertebral spacers L2-L3, L3-L4, L4-L5. Marked narrowing L1-L2. Moderate narrowing L5-S1. PARASPINOUS: Negative. No paraspinous abnormality is seen. OTHER: Negative. XR/XR lumbar spine min 4V IMPRESSION: 1. Stable surgical changes without evidence of hardware failure or change in alignment. 2. Progression of degenerative changes. Electronically authenticated by: SHALA OMER Date: 02/14/2024 05:15
--- OUTSIDE RECORDS SUMMARY | 2024-02-13 09:39 | XMS_ITS | CCD ---
Author Organization [facility] Care Team Providers Care Warranty Coordinator Name Role Phone Toby Quintana Unavailable Unavailable Unavailable MD Toby Quintana Primary Care Provider BladeLeeann cody Attending Provider Unavailable Unavailable Blades, Leeann Unavailable DR SHALA OMER Consulting Unavailable QUINTANA, DR TOBY Schofield Admitting Unavailable QUINTANA, DR TOBY Schofield Attending Unavailable QUINTANA, DR TOBY Schofield Primary Care Unavailable QUINTANA, DR TOBY Schofield Consulting Unavailable QUINTANA, DR TOBY Schofield Admitting Unavailable QUINTANA, DR TOBY Schofield Attending Unavailable QUINTANA, DR TOBY Schofield Consulting Unavailable QUINTANA, DR TOBY Schofield Primary Care Unavailable QUINTANA, DR TOBY Schofield Admitting Unavailable [place], DR CAITLYN Noe Consulting Unavailable QUINTANA, DR TOBY Schofield Attending Unavailable QUINTANA, DR TOBY Schofield Primary Care Unavailable QUINTANA, DR TOBY Schofield Consulting Unavailable REINECK, DR LAUREL Banks Admitting Unavailabl e QUINTANA, DR TOBY Schofield Primary Care Unavailable REINECK, DR LAUREL Banks Attending Unavailabl e REINECK, DR LAUREL Banks Consulting Unavailabl e QUINTANA, DR TOBY Schofield Primary Care Unavailable BLADES, LEEANN Referring Unavailable LAKSHMIPATHY ., NARABBEYATH Admitting Nanda vailable LAKSHMIPATHY ., LASHONDA Attending Nanda vailable MARIANO, DR TOBY Schofield Admitting Unavailable QUINTANA, DR TOBY Schofield Primary Care Unavailable QUINTANA, DR TOBY Schofield Attending Unavailable QUINTANA, DR TOBY Schofield Consulting Unavailable Toby Quintana Unavailable MD Samuel Chatman II Attending Provider [phone] BladesLeeann Admitting Unavailable Blades, Leeann Attending Toby Pham Primary Care Unavailable Samuel hCatman II Admitting UnavailSamuel Dubois II Attending Toby Armijo Primary Care Unavailable Samuel Chatman II Unavailable [phone] ZEESHAN, Dr. EVIN Henning Attending Toby Pham Primary Care Unavaildidier Quintana, Dr. Toby Feliz Primary Care Unav ailable Lore, Dr. Iban Penn Referring Nanda Quintana, Dr. Toby Feilz Primary Care Unav ailable Lore, Dr. Iban Penn Attending Toby Romano MD Primary Care Provider IBAN LU Attending TOBY Pham Primary Care Unavailable Allergies Allergy Classification Reported Allergen(s) Allergy Type Date of Onset Reaction(s) Facility (6 sources) Sulfamethoxazole; Translations: [sulfa] Drug Allergy Rash, Swelling [place] [id number] Work Phone: (7 sources) Sulfonamides (Antibiotic); Translations: [Sulfa (Sulfonamide Antibiotics)] Allergy to substance 04-08-20 19 Hives, Rash, Swelling [facility] (20 sources) Sulfacetamide / Sulfur Drug Allergy rash [facility] [place] Other (1 source) Morphine Drug Allergy [facility] (1 source) Quinolones (Antibiotic) Drug allergy (disorder) [facility] (2 sources) Sulfonamides (Antibiotic) Drug allergy (disorder) 08-06-20 13 [facility] (12 sources) Acetaminophen / oxyCODONE Drug Allergy 07-28-20 13 Unknown [facility] Other (12 sources) Meperidine Drug Allergy 07-28-20 13 Unknown [facility] Other (13 sources) Quinolones Drug allergy 07-28-20 13 Comment:Fluorq rennolones 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 Propensity to adverse reactions 07-28-20 13 Unknown [facility] Other (4 sources) Allergies Reconciled Propensity to adverse reactions Unknown [facility] Other (4 sources) patient allergy list reviewed by nurse or physicia Propensity to adverse reactions 07-15-20 Comment:Done [facility] Other (1 source) Acetaminophen / oxyCODONE Drug Allergy 07-28-20 13 Unknown [facility] Other (1 source) Meperidine Drug Allergy 07-28-20 13 Unknown [facility] Other (2 sources) Sulfacetamide Drug Allergy 12-30-19 24 [facility] Medications Current Medications Medication Drug Class(es) Dates Sig (Normalized) Sig (Original) acetaminophen 325 mg / HYDROcodone bitartrate 5 mg oral tablet (20 sources) Opioid Agonist Start: 08-31-2021 End: 12-09-2023 take 1 tablet by mouth every four hours as needed HYDROcodone-acetami nophen (Nichols) 5-325 mg tablet Take 1 tablet by [...] mg oral tablet (20 sources) Benzodiazepine Start: 4 End: 4 take 1 mg by mouth twice daily Alprazolam Active 1 MG PO Twice daily 60 January 26, 2024 12:42pm Start: 12-08-2023 take 1 tablet by valentin th twice [...] for 30 days Jan, Active Start: 04-08-2019 End: 01-16-2024 take 2 mg by mouth once daily at bedtime Alprazolam Discontinued 2 MG PO Daily at bedtime April 08, 2019 12:00am January 16, 2024 11:14am take 1 tablet by valentin th three [...] a day for 2 days Active atenolol 25 mg oral tablet (20 sources) beta-Adrenergic Anahi Start: 01-16-2024 take 50 mg by mouth once daily at bedtime Atenolol Active 50 MG PO Daily at bedtime January 16, 2024 11:14am Start: 08-30-2021 take 0.5 tablet by m outh twice daily Atenolol 50 MG Oral Tablet TAKE 1/2 TABLET TWICE DAILY Quantity: 90 Refills: 3 Ordered: 22-May-2023 Iban Lu MD Start : 30-Aug-2021 Active decreased Start: 04-08-2019 End: 01-16-2024 take 25 mg by mouth once daily Atenolol Discontinued 2 5 MG PO Daily April 08, 2019 12:00am January 16, 2024 11:15am Start: 04-08-2019 End: 01-16-2024 take 50 mg by mouth once daily in the evening Atenolol Discontinued 50 MG PO Every evening April 08, 2019 12:00am January 16, 2024 11:15am Fish Oil-Krill Oil - (2 sources) Fish Oil-Krill O il - as directed Orally Active 120 actuat fluticasone propionate 0.23 mg/actuat / salmeterol 0.021 mg/actuat metered dose inhaler (5 sources) Corticosteroid, beta2-Adrenergic Agonist take 2 puff(s) by inhalation twice daily Advair HFA 230-21 MCG/ACT 2 puffs Inhalation Twice a day Active omega 8-gji-iww-fish oil 360 mg-108 mg- 180 mg-1,200 mg capsule (1 source) take 1 capsule by mouth once daily omega 6-amc-mnm-fish oil 360 mg-108 mg- 180 mg-1,200 mg [...] Active oxyCODONE hydrochloride 5 mg oral tablet (13 sources) Opioid Agonist Start: 01-05-20 End: 01-06-20 take 5 mg by mouth every six hours Oxycodone Active 5 MG PO Every 6 hours 06 06January 06, 2024 Start: 10-24-2023 take 1 tablet by valentin th every six hours oxyCODONE HCl 5 MG 1 tablet as needed Orally every 6 hrs for 7 days Oct, Active Start: 10-24-2023 take 1 tablet by valentin th every six hours oxyCODONE HCl 5 MG 1 tablet as needed Orally every 6 hrs for 7 days Oct, Active Start: 09-25-2023 take 1 tablet by valentin th every six hours oxyCODONE HCl 5 MG 1 tablet as needed Orally every 6 hrs for 7 days Sep, Active take 1 capsule by mo [facility] every six hours as needed oxyCODONE (Oxy-IR) 5 mg immediate release capsule Take 1 capsule (5 mg) by mouth every 6 hours if needed for severe pain (7 - 10). 0 Active pregabalin 50 mg oral capsule (5 sources) take 1 capsule by mouth every twelve hours Lyrica 50 MG 1 capsule Orally Twice a day Active traMADol hydrochloride 50 mg oral tablet (2 sources) Opioid Agonist Start: 09-22-2023 take 1 tablet by mouth twice daily as needed traMADol HCl 50 MG 1 tablet as needed Orally bid prn for 30 days Sep, Active Completed/Discontinued Medications Medication Drug Class(es) Dates Sig (Normalized) Sig (Original) acetaminophen 325 mg / oxyCODONE hydrochloride 5 mg oral tablet (2 sources) Opioid Agonist Start: 12-30-2023 End: 01-06-2024 take 1 tablet by mouth every four hours Oxycodone-Acetami nophen Discontinued 1 TAB PO Every 4 hours December 30, 2023 1:00am January 06, 2024 2:13pm DULoxetine 60 mg delayed release oral capsule (4 sources) Serotonin and Norepinephrine Reuptake Inhibitor Start: 04-08-2019 End: 12-30-2023 take 60 mg by mouth once daily Duloxetine Discontinued 60 MG PO Daily April 08, 2019 12:00am December 30, 2023 11:07am esomeprazole 40 mg delayed release oral capsule [...] 30 mg naproxen 500 mg oral tablet (4 sources) Nonsteroidal Anti-inflammatory Drug Start: 04-08-2019 End: 12-30-2023 take 500 mg by mouth twice daily Naproxen Discontinued 500 MG PO Twice daily April 08, 2019 12:00am December 30, 2023 11:07am predniSONE 20 mg oral tablet (1 source) Start: 01-19-2024 End: 02-10-2024 take 20 mg by mouth twice daily Prednisone Discontinued 20 MG PO Twice daily January 19, 2024 12:00am February 10, 2024 1:10pm promethazine hydrochloride 12.5 mg oral tablet (10 sources) Phenothiazine Start: 01-16-2024 End: 02-10-2024 take 12.5 mg by mouth every six hours Promethazine Discontinued 12.5 MG PO Every 6 hours January 16, 2024 1:00am February 10, 2024 1:10pm take 1 tablet by valentin every six hours as needed Promethazine HCl 12.5 MG 1 tablet as nee ded Orally every 6 hrs prn for 5 days Active sucralfate 1000 mg oral tablet (16 sources) [...] a day for 30 days Apr, Not-Taking tiZANidine 4 mg oral tablet (1 source) Central alpha-2 Adrenergic Agonist Start: 01-19-2024 End: 02-10-2024 take 4 mg by mouth every eight hours Tizanidine Discontinued 4 MG PO Every 8 hours January 19, 2024 12:00am February 10, 2024 1:10pm triamcinolone acetonide 40 mg/ml injectable suspension (20 [...] asthma, uncomplicated] Onset: 5 Chronic Cardiac dysrhythmias (16 sources) EKG: supraventricular tachycardia; Translations: [Paroxysmal supraventricular [...] conjunctivitis, unspecified eye] Episodic Malaise and fatigue (12 sources) Fatigue; Translations: [Other fatigue] Onset: 5 [...] 09-12-2014 Episodic Other aftercare (1 source) 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; 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] Onset: 07-23-2022 Episodic Other [...] Test Name Value Interpretation Reference Range Facility Activated partial thrombopla stin time (aPTT) in platelet poor plasma by coagulation aon 01-14-2024 aPTT Coag (PPP) [Time] 23.5 s 22.3-36.2 [facility] Basophils Auto (Bld) [#/Vol] on 01-14-2024 Basophils (Bld) [#/Vol] 0.1 10 3/uL 0.0-0.1 [facility] Basophils/100 WBC Auto (Bld) on 01-14-2024 Basophils/100 WBC (Bld) 0.5 % 0.2-2.0 [facility] Eosinophils/100 WBC Auto (Bl d)on 01-14-2024 Eosinophils/100 WBC (Bld) 1.3 % 0.9-7.0 [facility] Erythrocyte distribution wid th Auto (RBC) [Ratio]on 01-14-2024 Erythrocyte distribution width (RBC) [Ratio] 13.6 % 11.0-15.0 [facility] Estimated glomerular filtrat ion rate (GFR) non- Americanon 01-14-2024 GFR/1.73 sq M.predicted among non-blacks MDRD (S/P/Bld) [Vol rate/Area] mL/min/{1.73_m2} >=60 [facility] Fibrin D-dimer [Presence] in Platelet poor plasma by Latex agglutinationon 01-14-2024 Fibrin D-dimer LA Ql (PPP) 0.78 mg/L FEU <=0.59 [facility] Comment on above: RESULTS CALLED TO EARL ZUNIGA RN @BY Klaudia Heard [id number] in D-Dimer concentration observed withthromboembolic events can be variable due to localization,size, and age of the thrombus. Therefore, a thromboembolicevent cannot be diagnosed with certainty on the basis of thereference range. D-Dimers may also be elevated for a varietyof disorders including advanced age, , coronarydisease, cancer, liver disease, infection, inflammation,hematoma, DIC, trauma, post-surgery, diabetes, thrombolyticor anticoagulant therapy, stress, and generalizedhospitalization. Globulin Calc (S) [Mass/Vol] on 01-14-2024 Globulin (S) [Mass/Vol] 3.9 g/dL [facility] Hematocrit Auto (Bld) [Volum e fraction]on 01-14-2024 Hematocrit (Bld) [Volume fraction] 44.4 % 36.0-48.0 [facility] Hemoglobin [Mass/volume] in Bloodon 01-14-2024 Hemoglobin (Bld) [Mass/Vol] 14.1 g/dL 12.0-16.0 [facility] INR in Platelet poor plasma by Coagulation assayon 01-14-2024 INR Coag (PPP) [Relative time] {INR} [facility] Comment on above: DESIRED INR:2.0-3.0 CONDITIONS NOT LISTED BELOW2.5-3.5 FOR PROSTHETIC HEART VALVE REPLACEMENT2.5-3.5 RECURRENT THROMBOSIS Laboratory - Chemistry and C hemistry - challengeon 01-14-2024 Albumin [Mass/Vol] 2.9 g/dL 3.4-5.0 [facility] ALP [Catalytic activity/Vol] 126 U/L 46-116 [facility] ALT [Catalytic activity/Vol] 36 U/L 14-59 [facility] AST [Catalytic activity/Vol] 24 U/L 15-37 [facility] Bilirubin [Mass/Vol] 0.4 mg/dL 0.2-1.0 [facility] Calcium [Mass/Vol] 8.7 mg/dL 8.5-10.1 [facility] Chloride [Moles/Vol] 109 mmol/L 98-107 [facility] CO2 [Moles/Vol] 30.5 mmol/L 21.0-32.0 [facility] Creatinine [Mass/Vol] 0.77 mg/dL 0.55-1.02 [facility] GFR/1.73 sq M.predicted MDRD (S/P/Bld) [Vol rate/Area] mL/min/{1.73_m2} >=60 [facility] Glucose [Mass/Vol] 108 mg/dL 74-106 [facility] Natriuretic peptide B (Bld) [Mass/Vol] 210.0 pg/mL <=900.0 [facility] Potassium [Moles/Vol] 4.0 mmol/L 3.5-5.1 [facility] Protein [Mass/Vol] 6.8 g/dL 6.4-8.2 [facility] Sodium [Moles/Vol] 141 mmol/L 136-145 [facility] Urea nitrogen [Mass/Vol] 10.0 mg/dL 7.0-18.0 [facility] Urea nitrogen/Creatinine [Mass ratio] 13.0 mg/mg [facility] Laboratory - Hematology and Cell countson 01-14-2024 Immature granulocytes/100 WBC (Bld) 0.3 % 0.0-0.5 [facility] Laboratory - Microbiology an d Antimicrobial susceptibilityon 01-14-2024 SARS-CoV-2 (COVID-19) RNA DAVID+probe Ql (Unsp spec) Negative NEGATIVE [facility] Comment on above: This test has not be en FDA cleared or approved, but has beenauthorized by the FDA under an Emergency Use Authorization(EUA) for use by authorized laboratories certified underIA that meet the requirements to perform moderate or highcomplexity testing. This test has been authorized only forthe detection of proteins from SARS-CoV-2, not for any otherviruses or pathogens. The emergency use of this test isauthorized for the duration of the declaration thatcircumstances exist justifying the authorization ofemergency use of in vitro diagnostic tests for detectionand/or diagnosis of Covid-19 under section 564(b)(1) of theAct, U.S.C. 360bbb-3(b)(1), unless the declaration isterminated or authorization is revoked sooner. Leukocytes [#/volume] correc wanda for nucleated erythrocytes in Blood by Automated counon 01-14-2024 WBC corrected for nucl RBC Auto (Bld) [#/Vol] 9.2 10 3/uL 4.0-11.0 [facility] Lymphocytes Auto (Bld) [#/Vo l]on 01-14-2024 Lymphocytes (Bld) [#/Vol] 1.9 10 3/uL 1.2-3.8 [facility] Lymphocytes/100 WBC Auto (Bl d)on 01-14-2024 Lymphocytes/100 WBC (Bld) 20.3 % 20.5-60.0 [facility] MCH Auto (RBC) [Entitic mass ]on 01-14-2024 MCH (RBC) [Entitic mass] 28.4 pg 26.7-34.0 [facility] MCHC Auto (RBC) [Mass/Vol]on 01-14-2024 MCHC (RBC) [Mass/Vol] 31.8 g/dL 29.9-35.2 [facility] MCV Auto (RBC) [Entitic vol] on 01-14-2024 MCV (RBC) [Entitic vol] 89.5 fL 81.0-99.0 [facility] Monocytes Auto (Bld) [#/Vol] on 01-14-2024 Monocytes (Bld) [#/Vol] 0.8 10 3/uL 0.3-0.8 [facility] Monocytes/100 WBC Auto (Bld) on 01-14-2024 Monocytes/100 WBC (Bld) 8.5 % 1.7-12.0 [facility] Neutrophils Auto (Bld) [#/Vo l]on 01-14-2024 Neutrophils (Bld) [#/Vol] 6.3 10 3/uL 1.4-6.5 [facility] Neutrophils/100 WBC Auto (Bl d)on 01-14-2024 Neutrophils/100 WBC (Bld) 69.1 % 43.0-75.0 [facility] No Panel Informationon 01-13 Troponin I High Sensitivity 6.8 pg/mL 4.0-51.3 [facility] Comment on above: CUT-OFF POINTS HAVE BEEN ESTABLISHED BASED ON THE FOURTHUNIVERSAL DEFINITION OF MYOCARDIAL INFARCTION. THE UPPERREFERENCE LIMIT (URL) OF TROPONIN, DEFINED THE 99THPERCENTILE OF cTnI DISTRIBUTION IN A REFERENCE POPULATION,HAS BEEN CONFIRMED THE DECISION THRESHOLD FOR MIDIAGNOSIS.99TH PERCENTILE = 51.4 PG/MLNOTE: HIGH-SENSITIVITY TROPONIN ASSAY IS NOT INTENDED TO BEUSED IN ISOLATION BUT SHOULD BE INTERPRETED IN CONJUNCTIONWITH OTHER DIAGNOSTIC AND CLINICAL INFORMATION. Bedside Influenza Type A Antigen Negative [facility] Comment on above: Negative for Flu A p rotein antigen. Infection due to Flu Acannot be ruled out. Flu A antigen in the sample may bebelow the detection limit of the test. Bedside Influenza Type B Antigen Negative [facility] Comment on above: Negative for Flu B p rotein antigen. Infection due to Flu Bcannot be ruled out. Flu B antigen in the sample may bebelow the detection limit of the test. Eosinophils # (Auto) 0.1 10 3/uL 0.0-0.7 [facility] Immature Granulocyte # (Auto) 0.03 10 3/uL 0.00-0.03 [facility] Platelet mean volume Auto (B ld) [Entitic vol]on 01-14-2024 Platelet mean volume (Bld) [Entitic vol] 9.4 fL 9.5-13.5 [facility] Platelets Auto (Bld) [#/Vol] on 01-14-2024 Platelets (Bld) [#/Vol] 238 10 3/uL 150-450 [facility] Prothrombin time (PT)on PT Coag (PPP) [Time] 9.3 s 9.0-11.6 [facility] RBC Auto (Bld) [#/Vol]on RBC (Bld) [#/Vol] 4.96 10 6/uL 4.20-5.40 [facility] Serum or plasma albumin/glob ulin mass ratioon 01-14-2024 Albumin/Globulin [Mass ratio] 0.7 {ratio} [facility] Serum or plasma anion gap de terminationon 01-14-2024 Anion gap [Moles/Vol] 5.5 mmol/L [facility] Basophils Auto (Bld) [#/Vol] on 12-30-2023 Basophils (Bld) [#/Vol] 0.1 10 3/uL 0.0-0.1 [facility] Basophils/100 WBC Auto (Bld) on 12-30-2023 Basophils/100 WBC (Bld) 0.6 % 0.2-2.0 [facility] Cholesterol in LDL Calc [Mas s/Vol]on 12-30-2023 Cholesterol in LDL [Mass/Vol] 149.0 mg/dL [facility] Comment on above: <100 mg/dl [id number] 0-129 mg/dl NEAR OR ABOVE [id number] mg/dl BORDERLINE [id number] mg/dl HIGH>190 mg/dl VERY HIGH Cholesterol in VLDL Calc [Ma ss/Vol]on 12-30-2023 Cholesterol in VLDL [Mass/Vol] 18.6 mg/dL [facility] Eosinophils/100 WBC Auto (Bl d)on 12-30-2023 Eosinophils/100 WBC (Bld) 1.8 % 0.9-7.0 [facility] Erythrocyte distribution wid th Auto (RBC) [Ratio]on 12-30-2023 Erythrocyte distribution width (RBC) [Ratio] 13.2 % 11.0-15.0 [facility] Estimated glomerular filtrat ion rate (GFR) non- Americanon 12-30-2023 GFR/1.73 sq M.predicted among non-blacks MDRD (S/P/Bld) [Vol rate/Area] mL/min/{1.73_m2} >=60 [facility] Globulin Calc (S) [Mass/Vol] on 12-30-2023 Globulin (S) [Mass/Vol] 3.8 g/dL [facility] Hematocrit Auto (Bld) [Volum e fraction]on 12-30-2023 Hematocrit (Bld) [Volume fraction] 46.8 % 36.0-48.0 [facility] Hemoglobin [Mass/volume] in Bloodon 12-30-2023 Hemoglobin (Bld) [Mass/Vol] 14.7 g/dL 12.0-16.0 [facility] Laboratory - Chemistry and C hemistry - challengeon 12-30-2023 Albumin [Mass/Vol] 3.0 g/dL 3.4-5.0 [facility] ALP [Catalytic activity/Vol] 88 U/L 46-116 [facility] ALT [Catalytic activity/Vol] 23 U/L 14-59 [facility] AST [Catalytic activity/Vol] 20 U/L 15-37 [facility] Bilirubin [Mass/Vol] 0.5 mg/dL 0.2-1.0 [facility] Calcium [Mass/Vol] 9.2 mg/dL 8.5-10.1 [facility] Chloride [Moles/Vol] 107 mmol/L 98-107 [facility] Cholesterol [Mass/Vol] 224 mg/dL <=200 [facility] Cholesterol in HDL [Mass/Vol] 57 mg/dL 40-60 [facility] Comment on above: > or =60 mg/dl - LOW CARDIOVASCULAR RISK<40 mg/dl - HIGH CARDIOVASCULAR RISK CO2 [Moles/Vol] 31.1 mmol/L 21.0-32.0 [facility] Creatinine [Mass/Vol] 0.72 mg/dL 0.55-1.02 [facility] GFR/1.73 sq M.predicted MDRD (S/P/Bld) [Vol rate/Area] mL/min/{1.73_m2} >=60 [facility] Glucose [Mass/Vol] 100 mg/dL 74-106 [facility] Potassium [Moles/Vol] 4.5 mmol/L 3.5-5.1 [facility] Protein [Mass/Vol] 6.8 g/dL 6.4-8.2 [facility] Sodium [Moles/Vol] 145 mmol/L 136-145 [facility] Triglyceride [Mass/Vol] 93 mg/dL <=150 [facility] TSH Qn 2.655 m[IU]/L 0.358-3.740 [facility] Urea nitrogen [Mass/Vol] 9.0 mg/dL 7.0-18.0 [facility] Urea nitrogen/Creatinine [Mass ratio] 12.5 mg/mg [facility] Laboratory - Hematology and Cell countson 12-30-2023 Immature granulocytes/100 WBC (Bld) 0.2 % 0.0-0.5 [facility] Leukocytes [#/volume] correc wanda for nucleated erythrocytes in Blood by Automated counon 12-30-2023 WBC corrected for nucl RBC Auto (Bld) [#/Vol] 8.7 10 3/uL 4.0-11.0 [facility] Lymphocytes Auto (Bld) [#/Vo l]on 12-30-2023 Lymphocytes (Bld) [#/Vol] 1.8 10 3/uL 1.2-3.8 [facility] Lymphocytes/100 WBC Auto (Bl d)on 12-30-2023 Lymphocytes/100 WBC (Bld) 20.4 % 20.5-60.0 [facility] MCH Auto (RBC) [Entitic mass ]on 12-30-2023 MCH (RBC) [Entitic mass] 28.6 pg 26.7-34.0 [facility] MCHC Auto (RBC) [Mass/Vol]on 12-30-2023 MCHC (RBC) [Mass/Vol] 31.4 g/dL 29.9-35.2 [facility] MCV Auto (RBC) [Entitic vol] on 12-30-2023 MCV (RBC) [Entitic vol] 91.1 fL 81.0-99.0 [facility] Monocytes Auto (Bld) [#/Vol] on 12-30-2023 Monocytes (Bld) [#/Vol] 0.7 10 3/uL 0.3-0.8 [facility] Monocytes/100 WBC Auto (Bld) on 12-30-2023 Monocytes/100 WBC (Bld) 7.5 % 1.7-12.0 [facility] Neutrophils Auto (Bld) [#/Vo l]on 12-30-2023 Neutrophils (Bld) [#/Vol] 6.0 10 3/uL 1.4-6.5 [facility] Neutrophils/100 WBC Auto (Bl d)on 12-30-2023 Neutrophils/100 WBC (Bld) 69.5 % 43.0-75.0 [facility] No Panel Informationon 12-30 Eosinophils # (Auto) 0.2 10 3/uL 0.0-0.7 [facility] Immature Granulocyte # (Auto) 0.02 10 3/uL 0.00-0.03 [facility] Platelet mean volume Auto (B ld) [Entitic vol]on 12-30-2023 Platelet mean volume (Bld) [Entitic vol] 9.3 fL 9.5-13.5 [facility] Platelets Auto (Bld) [#/Vol] on 12-30-2023 Platelets (Bld) [#/Vol] 199 10 3/uL 150-450 [facility] RBC Auto (Bld) [#/Vol]on RBC (Bld) [#/Vol] 5.14 10 6/uL 4.20-5.40 [facility] Serum or plasma albumin/glob ulin mass ratioon 12-30-2023 Albumin/Globulin [Mass ratio] 0.8 {ratio} [facility] Serum or plasma anion gap de terminationon 12-30-2023 Anion gap [Moles/Vol] 11.4 mmol/L [facility] Serum or plasma total choles terol/high density lipoprotein (HDL) cholesterol mass la 12-30-2023 Cholesterol.total/Ch olesterol in HDL [Mass ratio] 3.9 {ratio} [facility] Comment on above: 3.3 - 4.4 LOW RISK4. 4 - 7.1 AVERAGE RISK7.1 - 11.0 MODERATE RISK>11.0 HIGH RISK XR hip LT min 2V(w/wo pelvis )*on 01-08-2023 XR hip LT min 2V(w/wo pelvis)* [address] [address] XRay Report Signed Patient: Adriana Dinero I MR#: [id number] : 1955 Acct:[id number] Age/Sex: 67 / F ADM Date: 01/08/23 Loc: [facility] Room: Type: [facility] Attending Dr: Samuel Chatman II, MD Copies [...] PROCESS.. Impression dictated by: Montana Pop Jr., D.OOdessa01/08/2023 1:22 PM Dictation Location: [place] [address] Transcribed By: [facility] 01/08/23 1322 Dictated By: Montana Pop Jr, DO 01/08/23 1321 Signed By: 01/08/23 1322 Normal [facility] XR hip LT min 2V(w/wo pelvis)* [facility] Other XR hip LT min 2V(w/wo pelvis)* [facility] Other XR hip LT min 2V(w/wo pelvis)* [address] [place] [address] [facility] Other XR hip LT min 2V(w/wo pelvis)* [place] [address] [facility] Other XR hip LT min 2V(w/wo pelvis)* XRay Report [employer] Other XR hip LT min 2V(w/wo pelvis)* Signed [employer] Other XR hip LT min 2V(w/wo pelvis)* Patient: Adriana Dinero I MR#: [id number] [employer] Other XR hip LT min 2V(w/wo pelvis)* 056 [employer] Other XR hip LT min 2V(w/wo pelvis)* : 1955 Acct:[id number] [employer] Other XR hip LT min 2V(w/wo pelvis)* Age/Sex: 67 / F ADM Date: 01/08/23 [employer] Other XR hip LT min 2V(w/wo pelvis)* Loc: [facility] Room: Type: [facility] [employer] Other XR hip LT min 2V(w/wo pelvis)* Attending Dr: Samuel Chatman II, MD [employer] Other XR hip LT min 2V(w/wo pelvis)* Copies to: Samuel Chatman MD [employer] Other XR hip LT min 2V(w/wo pelvis)* Ordering Provider: Samuel Chatman MD [employer] Other XR hip LT min 2V(w/wo pelvis)* Date of Service: 01/08/23 [employer] Other XR hip LT min 2V(w/wo pelvis)* XR/XR hip LT min 2V(w/wo pelvis)*: Left hip pain [employer] Other XR hip LT min 2V(w/wo pelvis)* LEFT HIP - 2 views: [employer] Other XR hip LT min 2V(w/wo pelvis)* CLINICAL HISTORY: Left hip pain for months. [employer] Other XR hip LT min 2V(w/wo pelvis)* COMPARISON: Hip series 11/22/2022 [employer] Other XR hip LT min 2V(w/wo pelvis)* FINDINGS: Mild degenerative changes of both hips without acute bony process. [employer] Other XR hip LT min 2V(w/wo pelvis)* XR/XR hip LT min 2V(w/wo pelvis)* [employer] Other XR hip LT min 2V(w/wo pelvis)* IMPRESSION: [employer] Other XR hip LT min 2V(w/wo pelvis)* MILD DEGENERATIVE CHANGES OF BOTH HIPS WITHOUT ACUTE BONY PROCESS.. [employer] Other XR hip LT min 2V(w/wo pelvis)* Impression dictated by: Montana Pop Jr., D.O.01/08/2023 1:22 PM [employer] Other XR hip LT min 2V(w/wo pelvis)* Dictation Location: [place] [address] [employer] Other XR hip LT min 2V(w/wo pelvis)* Transcribed By: VALERIE 01/08/23 [facility] [employer] Other XR hip LT min 2V(w/wo pelvis)* Dictated By: Montana Pop Jr, DO 01/08/23 [facility] [employer] Other XR hip LT min 2V(w/wo pelvis)* Signed By: [employer] Other XR hip LT min 2V(w/wo pelvis)* 01/08/23 [facility] [employer] Other Office Visit (Cardiology)on 12-09-2022 Follow-up visit [...] and provided the patient with 2 local associate store manager in [facility]. ASSESSMENT AND PLAN: 1. Supraventricular tachycardia, on [...] follow-up will be scheduled Iban Lu MD, [facility] Surgical History Problems History of [...] 1200 MG Oral CapsuleTAKE 1 CAPSULE Daily HYDROcodone-Acetaminop hen 5-325 MG Oral Tablet Xanax 1 MG [...] Recorded: 09Dec2022 01:25PM Heart Rate78, L Radial Vznuhkfj080, LUE, Sitting Spaitpwwh98, LUE, Sitting Height5 ft 6 in Kunasm799 lb BMI Qzdhwinimq93.03 kg/m2 BSA Calculated2.19 Tobacco Useb) No PHQ-2 [...] Fall risk assessment b) One or more fall s in the last year -[facility] [employer] 250 DO Work Phone: Tobacco use status CPHS b) No [facility]Jackson 250 DO Work Phone: Tobacco Screening. Yes [facility] 250 DO Work Phone: XR hip BI w [id number] 11-22-19 XR hip BI w PEL1V [facility] [place] [address] [place] [id number] XRay Report Signed Patient: Adriana Dinero I MR#: [id number] : 1955 Acct:[id number] Age/Sex: 67 / F ADM Date: 11/22/22 Loc: XD Room: Type: [facility] Attending Dr: Leeann Quintana Copies to: Leeann [...] Pop Jr., D.O.11/22/2022 1:12 PM Dictation Location: [place] [address] Transcribed By: [facility] 11/22/22 131 Dictated By: Montana Pop Jr, DO 11/22/22 1311 Signed By: 11/22/22 1312 [facility] XR lumbar spine AP/LAT/FLX/E XTon 11-22-2022 XR lumbar spine AP/LAT/FLX/EXT [facility] [place] [address] XRay Report Signed Patient: Adriana Dinero I MR#: [id number] : 1955 Acct:[id number] Age/Sex: 67 / F ADM Date: 11/22/22 Loc: XD Room: [facility] Attending Dr: Leeann Quintana Copies to: Leeann [...] L1-L2. Impression dictated by: Montana Pop Jr., DOdessaOOdessa11/22/2022 1:11 PM Dictation Location: [place] [address] Transcribed By: [facility] 11/22/22 1311 Dictated By: Montana Pop Jr, DO 11/22/22 1309 Signed By: 11/22/22 1311 Normal [facility] CREATININEon 10-04-2022 Creatinine [Mass/Vol] 0.75 mg/dL Normal 0.55-1.02 [facility] Comment on above: Performed By: #### C CARLOS #### [facility] [address] [address] [address] Henrietta Zavala EGFR-AF BELARUSIAN >60 Normal >=60 [facility] Comment on above: Performed By: #### C CARLOS #### [facility] [address] [address] [address] Henrietta Zavala EGFR-NON AF BELARUSIAN >60 Normal >=60 [facility] Comment on above: Performed By: #### C CARLOS #### [facility] [address] [address] [address] Henrietta Zavala MRI GUILLE Hinkle CONon 2021 MRI GUILLE Hinkle CON EXAMINATION: MRI GUILLE TAVAREZ HISTORY: Lumbar radiculopathy ; chronic lumbar [...] SHALA OMER Date: 2022-10-04 11:19 Normal [facility]11 SARS-CoV-2 (COVID-19) RNA DAVID+probe Ql (Unsp spec) Not detected Normal NOT DETECTED [facility] Comment on above: Result Comment: This test is not yet approved or cleared by the [place] FDA. When there are no FDA-approved or cleared tests available, and other criteria are met, FDA can make tests available under an emergency access mechanism called an Emergency Use Authorization (EUA). The EUA for this test is supported by the Benefits Coordinator of Health and Human Service's (HHS's) declaration [...] consistent with SARS-CoV-2. Performed By: #### C [facility] #### [facility] [address] [place] [address] Dr. Henrietta Zavala XR HIPS JI 3_4V [...] CAITLYN CABRERA Date: 2022-04-15 07:00 Normal [facility] XR TSPINE 3 VIEWSon 04-15-20 XR TSPINE 3 VIEWS EXAMINATION: XR TSPI NE 3 VIEWS HISTORY: Pain in thoracic spine [...] CAITLYN CABRERA Date: 2022-04-15 07:03 Normal The [facility] CBC AUTO DIFFon 04-12-2022 BASO # 0.1 103/ul Normal 0.0-0.1 [facility] Comment on above: Performed By: #### C BC #### [facility] [address] [place] [address] Dr. Henrietta Zavala Basophils/100 WBC (Bld) 0.4 % Normal 0.2-2.0 [facility] Comment on above: Performed By: #### C BC #### [facility] [address] [place] [address] Dr. Henrietta Zavala EO # 0.1 103/ul Normal 0.0-0.7 [facility] Comment on above: Performed By: #### C BC #### [facility] [address] [place] [address] Dr. Henrietta Zavala Eosinophils/100 WBC (Bld) 0.4 % Critically low 0.9-7.0 [facility] Comment on above: Performed By: #### C BC #### [facility] [address] [place] [address] Dr. Henrietta Zavala Erythrocyte distribution width (RBC) [Ratio] 14.1 % Normal 11.0-15.0 [facility] Comment on above: Performed By: #### C BC #### [facility] [address] [place] [address] Dr. Henrietta Zavala Hematocrit (Bld) [Volume fraction] 44.9 % Normal 36.0-48.0 [facility] Comment on above: Performed By: #### C BC #### [facility] [address] [place] [address] Dr. Henrietta Zavala Hemoglobin (Bld) [Mass/Vol] 14.2 g/dL Normal 12.0-16.0 [facility] Comment on above: Performed By: #### C BC #### [facility] [address] [place] [address] Dr. Henrietta Zavala IG # 0.06 10e3/ul Critically high 0.00-0.03 [facility] Comment on above: Performed By: #### C BC #### [facility] [address] [place] [address] Dr. Henrietta Zavala IG % 0.5 % Normal 0.0-0.5 [facility] Comment on above: Performed By: #### C BC #### [facility] [address] [place] [address] Dr. Henrietta Zavala LYMPH # 2.2 103/ul Normal 1.2-3.8 [facility] Comment on above: Performed By: #### C BC #### [facility] [address] [place] [address] Dr. Henrietta Zavala Lymphocytes/100 WBC (Bld) 19.4 % Critically low 20.5-60.0 [facility] Comment on above: Performed By: #### C BC #### [facility] [address] [place] [address] Dr. Henrietta Zavala MANUAL DIFF REQ NO Normal [facility] Comment on above: Performed By: #### C BC #### [facility] [address] [place] [address] Dr. Henrietta Zavala MCH (RBC) [Entitic mass] 27.5 pg Normal 26.7-34.0 [facility] Comment on above: Performed By: #### C BC #### [facility] [address] [place] [address] Dr. Henrietta Zavala MCHC (RBC) [Mass/Vol] 31.6 g/dL Normal 29.9-35.2 [facility] Comment on above: Performed By: #### C BC #### [facility] [address] [place] [address] Dr. Henrietta Zavala MCV (RBC) [Entitic vol] 86.8 fL Normal 81.0-99.0 [facility] Comment on above: Performed By: #### C BC #### [facility] [address] [address] [address] Henrietta Zavala MONO # 0.9 103/ul Critically high 0.3-0.8 [facility] Comment on above: Performed By: #### C BC #### [facility] [address] [address] [address] Henrietta Zavala Monocytes/100 WBC (Bld) 7.9 % Normal 1.7-12.0 [facility] Comment on above: Performed By: #### C BC #### [facility] [address] [place] [address] Dr. Henrietta Zavala NEUT # 8.1 103/ul Critically high 1.4-6.5 [facility] Comment on above: Performed By: #### C BC #### [facility] [address] [place] [address] Dr. Henrietta Zavala Neutrophils/100 WBC (Bld) 71.4 % Normal 43.0-75.0 [facility] Comment on above: Performed By: #### C BC #### [facility] [address] [place] [address] Dr. Henrietta Zavala Platelet mean volume (Bld) [Entitic vol] 9.7 fL Normal 9.5-13.5 [facility] Comment on above: Performed By: #### C BC #### [facility] [address] [place] [address] Dr. Henrietta Zavala PLT 284 103/ul Normal 150-450 [facility] Comment on above: Performed By: #### C BC #### [facility] [address] [place] [address] Dr. Henrietta Zavala RBC 5.17 106/ul Normal 4.20-5.40 [facility] Comment on above: Performed By: #### C BC #### [facility] [address] [place] [address] Dr. Henrietta Zavala WBC 11.3 103/ul Critically high 4.0-11.0 [facility] Comment on above: Performed By: #### C BC #### [facility] [address] [place], [place] [address] Dr. Henrietta Zavala LIPID PROFILEon 04-12-2022 CHOL-HDL RATIO NORM SEE BELOW Normal [facility] Comment on above: Result Comment: 3.3 - 4.4 LOW RISK 4.4 - 7.1 AVERAGE RISK 7.1 - 11.0 MODERATE RISK >11.0 HIGH RISK Performed By: #### C MP, LIPID #### [facility] [address] [address] [address] Henrietta Zavala Cholesterol [Mass/Vol] 235 mg/dL Critically high <=200 [facility] Comment on above: Performed By: #### C MP, LIPID #### [facility] [address] [address] [address] Henrietta Zavala Cholesterol in HDL [Mass/Vol] 47 mg/dL Normal 40-60 [facility] Comment on above: Performed By: #### C MP, LIPID #### [facility] [address] [address] [address] Henrietta Zavala Cholesterol in LDL [Mass/Vol] 160.8 mg/dL Normal [facility] Comment on above: Performed By: #### C MP, LIPID #### [facility] [address] [address] [address] Henrietta Zavala Cholesterol.total/Ch olesterol in HDL [Mass ratio] 5.0 {ratio} Normal [facility] Comment on above: Performed By: #### C MP, LIPID #### [facility] [address] [address] [address] Henrietta Zavala HDL NORMAL > or = 60 mg/dl - LO W CARDIOVASCULAR RISK <40 mg/dl - HIGH CARDIOVASCULAR RISK Normal [facility] Comment on above: Performed By: #### C MP, LIPID #### [facility] [address] [address] [address] Henrietta Zavala LDL CALC NORMAL SEE BELOW Normal [facility] Comment on above: Result Comment: <100 mg/dl OPTIMAL 100 - 129 mg/dl NEAR OR ABOVE OPTIMAL 130 - 159 mg/dl BORDERLINE HIGH 160 - 189 mg/dl HIGH >190 mg/dl VERY HIGH Performed By: #### C MP, LIPID #### [facility] [address] [place] [address] Dr. Henrietta Zavala Triglyceride [Mass/Vol] 136 mg/dL Normal <=150 [facility] Comment on above: Performed By: #### C MP, LIPID #### [facility] [address] [place] [address] Dr. Henrietta Zavala VLDL CALC 27.2 mg/dL Normal [facility] Comment on above: Performed By: #### C MP, LIPID #### [facility] [address] [address] [address] Henrietta Zavala PROF 14(COMP METB)on 022 Albumin [Mass/Vol] 3.2 g/dL Critically low 3.4-5.0 [facility] Comment on above: Performed By: #### C MP, LIPID #### [facility] [address] [place] [address] Dr. Henrietta Zavala Albumin/Globulin [Mass ratio] 0.8 {ratio} Normal [facility] Comment on above: Performed By: #### C MP, LIPID #### [facility] [address] [place] [address] Dr. Henrietta Zavala ALP [Catalytic activity/Vol] 127 U/L Critically high 46-116 [facility] Comment on above: Performed By: #### C MP, LIPID #### [facility] [address] [place] [address] Dr. Henrietta Zavala ALT [Catalytic activity/Vol] 55 U/L Normal 14-59 [facility] Comment on above: Performed By: #### C MP, LIPID #### [facility] [address] [place] [address] Dr. Henrietta Zavala Anion gap [Moles/Vol] 13.6 mmol/L Normal [facility] Comment on above: Performed By: #### C MP, LIPID #### [facility] [address] [place] [address] Dr. Henrietta Zavala AST [Catalytic activity/Vol] 24 U/L Normal 15-37 [facility] Comment on above: Performed By: #### C MP, LIPID #### [facility] [address] [place] [address] Dr. Henrietta Zavala Bilirubin [Mass/Vol] 0.3 mg/dL Normal 0.2-1.0 [facility] Comment on above: Performed By: #### C MP, LIPID #### [facility] [address] [place] [address] Dr. Henrietta Zavala Calcium [Mass/Vol] 8.8 mg/dL Normal 8.5-10.1 [facility] Comment on above: Performed By: #### C MP, LIPID #### [facility] [address] [place] [address] Dr. Henrietta Zavala Chloride [Moles/Vol] 107 mmol/L Normal 98-107 [facility] Comment on above: Performed By: #### C MP, LIPID #### [facility] [address] [place] [address] Dr. Henrietta Zavala CO2 [Moles/Vol] 25.6 mmol/L Normal 21.0-32.0 [facility] Comment on above: Performed By: #### C MP, LIPID #### [facility] [address] [place] [address] Dr. Henrietta Zavala Creatinine [Mass/Vol] 0.77 mg/dL Normal 0.55-1.02 [facility] Comment on above: Performed By: #### C MP, LIPID #### [facility] [address] [place] [address] Dr. Henrietta Zavala EGFR-AF BELARUSIAN >60 Normal >=60 [facility] Comment on above: Performed By: #### C MP, LIPID #### [facility] [address] [place] [address] Dr. Henrietta Zavala EGFR-NON AF BELARUSIAN >60 Normal >=60 [facility] Comment on above: Performed By: #### C MP, LIPID #### [facility] [address] [place] [address] Dr. Henrietta Zavala Globulin (S) [Mass/Vol] 3.8 g/dL Normal [facility] Comment on above: Performed By: #### C MP, LIPID #### [facility] [address] [place] [address] Dr. Henrietta Zavala Glucose [Mass/Vol] 90 mg/dL Normal 74-106 [facility] Comment on above: Performed By: #### C MP, LIPID #### [facility] [address] [address] [address] Henrietta Zavala Potassium [Moles/Vol] 4.2 mmol/L Normal 3.5-5.1 [facility] Comment on above: Performed By: #### C MP, LIPID #### [facility] [address] [address] [address] Henrietta Zavala Protein [Mass/Vol] 7.0 g/dL Normal 6.4-8.2 [facility] Comment on above: Performed By: #### C MP, LIPID #### [facility] [address] [place] [address] Dr. Henrietta Zavala Sodium [Moles/Vol] 142 mmol/L Normal 136-145 [facility] Comment on above: Performed By: #### C MP, LIPID #### [facility] [address] [address] [address] Henrietta Zavala Urea nitrogen [Mass/Vol] 13.0 mg/dL Normal 7.0-18.0 [facility] Comment on above: Performed By: #### C MP, LIPID #### [facility] [address] [place] [address] Dr. Henrietta Zavala Urea nitrogen/Creatinine [Mass ratio] 16.9 mg/mg Normal [facility] Comment on above: Performed By: #### C MP, LIPID #### [facility] [address] [place] [address] Dr. Henrietta Zavala Tobacco Screening.on 021 Fall risk assessment a) No falls within the last year -[facility] [employer] 250 DO Work Phone: Tobacco use status CP b) No -[facility] [employer] 250 DO Work Phone: KNEE LEFT 3 VWSon 03-30-2021 KNEE LEFT 3 S [facility] Department of Radiology [address] [place] [phone] ======== Patient Name: ADRIANA RAYGOZA : 1955 Sex: F Age: Race: White Pt. Location: 84 Patient Status: Ordered Date: 03/30/2021 9:00:00 AM Completed Date: 03/30/2021 09:07 AM Requesting Provider: RAMANDEEP PATEL Attending Provider: Report Copy To: Signs & Symptoms: M25.562 Pain in left knee I10 History: Deb Comments: , , , Ordering Provider - RAMANDEEP PATEL MD , Exam: KNEE LEFT 3 VWS ======== KNEE LEFT 3 VWS 03/30/2021 9:07 AM [...] findings. Electronically signed: Jesse Lazaro. Transcribed by: [email or web address], User Resident: Electronically Signed by: JESSE LAZARO @ 03/30/2021 11:00 AM Normal [facility] Comment on above: Order Comment: , , = ========= , Ordering Provider - RAMANDEEP PATEL MD , KNEE RIGHT 3 Son 1 KNEE RIGHT 3 S [facility] Department of Radiology [address] [place] [phone] ======== Patient Name: ADRIANA RAYGOZA : 1955 Sex: F Age: Race: White Pt. Location: Patient Status: O Ordered Date: 03/30/2021 9:05:00 AM Completed Date: 03/30/2021 09:07 AM Requesting Provider: RAMANDEEP PATEL Attending Provider: RAMANDEEP PATEL Report Copy To: Signs & Symptoms: M25.569 Pain in unspecified knee I10 History: Deb Comments: Evaluate Exam: KNEE RIGHT 3 [facility] ======== CLINICAL INFORMATION: Chronic right knee pain. TECHNIQUE: [...] reports Electronically signed: Jesse Lazaro. Transcribed by: [email or web address], User Resident: SHALA EATON Electronically Signed by: JESSE LAZARO @ 03/30/2021 03:52 PM I personally read this/these film(s) with this resident Normal [facility] Comment on above: Order Comment: Evalu ate MRI LUMBAR SP W & WO CONTRAS Ton 10-11-2020 MRI LUMBAR SP W & WO CONTRAST STUDY: MRI LUMBAR SP W WO CONTRAST; 10/11/2020 11:35 am INDICATION: POST LAMINECTOMY SYNDROME. COMPARISON: None. ACCESSION NUMBER(S): [id number] ORDERING CLINICIAN: Denis Donohue TECHNIQUE: The lumbar [...] osteomyelitis. * THIS EXAMINATION WAS INTERPRETED AT [facility] Normal [facility] LUMB SP COMP W FLEX/EXT 6 VW Son 09-12-2020 LUMB SP COMP W FLEX/EXT 6 VWS STUDY: LUMB SP COMP W FLEX/EXT 6 VWS ; ; 09/12/2020 8:45 am INDICATION: PAIN. COMPARISON: None. ACCESSION NUMBER(S): [id number] ORDERING CLINICIAN: Denis Donohue FINDINGS: Status post [...] neural foraminal stenosis at L5-S1 level. Normal [facility] Ambulatory Clinical Summaryo n 05-22-2020 Ambulatory Clinical Summary {[id number] }[id number] Normal [facility] Coding Summary.on 05-10-2020 Coding Summary. CODING DATE: 05/10/2020 FINAL [facility] STATUS: Home (Routine DC) PAYOR: Commercial [...] Jasmine CphT Date Saved: 05/10/2020 04:39 pm [facility] Coding Summary.on 05-08-2020 Coding Summary. CODING DATE: 05/08/2020 FINAL [facility] STATUS: Home (Routine DC) PAYOR: Commercial [...] Jasmine CphT Date Saved: 05/08/2020 12:00 pm [facility] IntraOperative Documentson 0 05-08-2020 IntraOperative Documents [id number]. 00CD:127 Normal [facility] Postoperative Documentson Postoperative Documents [id number] 0CD:127 Normal [facility] Coding Summary.on 05-04-2020 Coding Summary. CODING DATE: 05/04/2020 FINAL [facility] STATUS: Home (Routine DC) PAYOR: [employer] APC DESCRIPTION 5301 Level 1 Upper GI Procedures ADMIT DX: REASON FOR VISIT DX: R10.13 Epigastric pain FINAL DX: PRINCIPAL: K29.50 Unspecified chronic gastritis without bleeding SECONDARY: K25.9 Gastric ulcer, unspecified as acute or chronic, without hemorrhage or perforation R11.2 Nausea with vomiting, unspecified PYMT PROC APC STAT DESCRIPTION DOCTOR NAME DATE [id number] 5301 Reid CLINE MD 05/01/2020 phagogastroduodenoscop y, flexible, transoral; with biopsy, single or multiple 10821 Anesthesia for upper Elliot Tena Jr, DO [...] Revised Date Saved: 05/04/2020 03:45 pm Normal [facility] Progress Note-Physicianon Progress Note-Physician Patient: ADRIANA [...] Cardiovascular: Regular rhythm. Neurologic: Alert, Oriented. Plan [place] [employer]hes[employer] (ASA) physical status classification: Class II. Anesthetic Preoperative Plan Anesthesia: General. . Anesthetic plan, risks, benefits, and alternatives discussed with the patient and/or family. Communication: face to face with (patient 5 minutes, Patient educated on smoking cesstation). Normal [facility] Comment on above: Result Comment: Elec tronically Signed By: Elliot Tena Jr, DO\.diogo\Date and Time Signed: 05/03/20 09:34 EDT Main OR Intraoperative Recor don 05-02-2020 Main OR Intraoperative Record IntraOp Document Type FT Summary Primary Physician: Reid NIEVES MD Finalized Date/Time: 05/02/20 13:35:19 Pt. Name: ADRIANA DINERO I /Sex: 1955 Female Med Rec #: [id number] Physician: Reid NIEVES MD Financial #: [id number] Pt. Type: O Room/Bed: / Admit/Disch: 05/01/20 07:03:44 - 05/01/20 23:59:59 Institution: Case Times FT Entry 1 Patient Times In Room 05/01/20 08:17:00 Out Room 05/01/20 08:25:00 Procedure Times Start 05/01/20 08:21:00 Stop 05/01/20 08:23:00 Anesthesia Times Start 05/01/20 08:17:00 Stop 05/01/20 08:25:00 Last Modified By: Savannah Chavis RN 05/01/20 08:26:21 General Comments: 05/02/2020 Chart opened to review and send charges Juvencio Bowen [employer] Case Attendance FT Entry 1 Entry 2 Entry 3 Case Attendee Darinel Matias DO, Elliot Chavis RN, Fior Simms Role Performed Anesthesiologist of Belling Machine Operator - Primary Scrub - Primary Record Time In 05/01/20 08:17:00 05/01/20 08:17:00 05/01/20 08:17:00 Time Out 05/01/20 08:25:00 05/01/20 08:25:00 05/01/20 08:25:00 Procedure EGD(.) EGD(.) EGD(.) Comments Last Modified By: Palmira RUIZ, Savannah Chavis RN, Savannah Chavis RN, Savannah 05/01/20 08:26:22 05/01/20 08:26:22 05/01/20 08:26:22 Entry [...] RN Patient Status Stable Skin. Condition Intact, [place], Warm, and Dry Airway Maintenance Oxygen in Use? No Outcomes Met? Yes Last Modified By: Savannah Chavis RN 05/01/20 06:57:50 Post-Care Text: The patient is free from signs and symptoms of injury related to transfer/transport General Comments: Report given to hl7 interface developer. RHRN Medication Administration FT Pre-Care Text: Verifies allergies, administers prescribed medications and solutions, administers prescribed antibiotic therapy and immunizing agents as ordered, evaluates response to medications Administers prescribed medications and solutions Entry 1 Expiration Date Yes Outcomes Met? Yes Verified Last Modified By: Savannah Chavis RN 05/01/20 06:57:59 Post-Care Text: The patient received appropriate medication(s) safely administered during the perioperative period For [facility] please see scanned medication reconcilliation form for [...] 05/01/20 08:26 Altagracia Bowen CST 05/02/20 13:35 Normal [facility] Consenton 05-01-2020 Consent [id number]#1.0 0CD:127 [facility] Consent for Treatmenton 04-11 Consent for Treatment [id number] 0CD:127 [facility] Discharge Instructionson Discharge Instructions [id number] 0CD:127 [facility] History and Physicalon 05-01 History and Physical [id number]#1.0 0CD:127 Normal [facility] Inpatient Patient Summaryon 05-01-2020 Inpatient Patient Summary [place] [id number] [facility] Clinical Discharge Instructions PERSON INFORMATION Name: ADRIANA DINERO I [facility]#:[id number] PHYSICIANS Admitting Physician: Reid NIEVES MD Attending Physician: Reid NIEVES MD PCP: MARIANO SAMAYOA, TOBY Discharge Diagnosis: Antral ulcer Comment: PATIENT EDUCATION INFORMATION Instructions: Medication Leaflets: Follow up: With: Address: When: Reid NIEVES [facility] [address] [place] [address] Within 2 weeks Type Location Start [facility] 2:15 PM 05/22/2020 2:30 PM Confirmed MEDICATION LIST Medications to Continue Taking That Have Changed [facility] [facility] [address] [place], [place] [id number], [phone] START: omeprazole (omeprazole 40 mg Cap-DR) 1 [...] every 8 hours. Refills: 1. Comment: Normal [facility] IntraOperative Documentson 0 05-01-2020 IntraOperative Documents [id number] 0CD:127 [facility] IntraOperative Documents [id number] 0CD:127 [facility] Main OR PACU I Recordon 04-11 Main OR PACU I Record PACU Phase I Document Type FT Summary Primary Physician: Reid NIEVES MD Finalized Date/Time: 05/01/20 09:14:39 Pt. Name: ADRIANA DINERO/Sex: 1955 Female Med Rec #: [id number] Physician: Reid NIEVES MD Financial #: [id number] Pt. Type: O Room/Bed: / Admit/Disch: 05/01/20 [...] Signed By: Ami Donaldson RN 05/01/20 09:14 [facility] Main OR Preoperative Recordo n 05-01-2020 Main OR Preoperative Record Holding Area Document Type FT Summary Primary Physician: Reid NIEVES MD Finalized Date/Time: 05/01/20 07:37:17 Pt. Name: ADRIANA DINERO I /Sex: 1955 Female Med Rec #: [id number] Physician: Reid NIEVES MD Financial #: [id number] Pt. Type: O Room/Bed: / Admit/Disch: 05/01/20 [...] Signed By: Lizbeth Diamond RN 05/01/20 07:37 [facility] Monitor Recordon 05-01-2020 Monitor Record [id number]#1. 00CD:127 [facility] Patient Education - Texton 0 05-01-2020 Patient Education - Text Normal [facility] Ambulatory Clinical Summaryo n 04-24-2020 Ambulatory Clinical Summary {[id number] 4-48}[id number] Normal [facility] Auto Diffon 04-24-2020 Basophils/100 WBC (Bld) 0.5 % Normal 0.0-2.0 [facility] Comment on above: Order Comment: Order Added by Discern Expert. Performed By: #### 2 409113, 1638730, 2067238, 5505093, 81347329 #### [facility] Laboratory [address] [place] [address] Basophils/Leukocytes Auto (Bld) [Pure # fraction] 0.0 E9/L Normal 0.0-0.2 [facility] Comment on above: Order Comment: Order Added by Discern Expert. Performed By: #### 2 928212, 8058086, 8597038, 1555716, 86449665 #### [facility] [address] [place] [address] Eosinophils/100 WBC (Bld) 2.9 % Normal 0.0-8.0 [facility] Comment on above: Order Comment: Order Added by Discern Expert. Performed By: #### 2 659624, 4426310, 3842613, 8306975, 32698776 #### [facility] [address] [place] [address] Eosinophils/Leukocyt es Auto (Bld) [Pure # fraction] 0.3 E9/L Normal 0.0-0.5 [facility] Comment on above: Order Comment: Order Added by Discern Expert. Performed By: #### 2 452371, 6163111, 1850497, 7262861, 60519969 #### [facility] [address] [place] [address] Lymphocytes/100 WBC (Bld) 23.7 % Normal 14.0-50.0 [facility] Comment on above: Order Comment: Order Added by Discern Expert. Performed By: #### 2 367920, 7489833, 5596955, 7280971, 08405886 #### [facility] [address] [place] [address] Lymphocytes/Leukocyt es Auto (Bld) [Pure # fraction] 2.2 E9/L Normal 1.0-4.0 [facility] Comment on above: Order Comment: Order Added by Discern Expert. Performed By: #### 2 903531, 2435914, 6692003, 1312432, 65692253 #### [facility] [address] [place] [address] Monocytes/100 WBC (Bld) 7.4 % Normal 4.0-14.0 [facility] Comment on above: Order Comment: Order Added by Discern Expert. Performed By: #### 2 083905, 1880220, 3630235, 9410988, 03424833 #### [facility] [address] [place] [address] Monocytes/Leukocytes Auto (Bld) [Pure # fraction] 0.7 E9/L Normal 0.2-1.0 [facility] Comment on above: Order Comment: Order Added by Discern Expert. Performed By: #### 2 723553, 1282211, 5587497, 6214838, 98333173 #### [facility] [address] [place] [address] Neutrophils/100 WBC (Bld) 65.5 % Normal 36.0-75.0 [facility] Comment on above: Order Comment: Order Added by Discern Expert. Performed By: #### 2 515481, 0720804, 1743219, 9828959, 55123505 #### [facility] [address] [place] [address]4969 Neutrophils/Leukocyt es Auto (Bld) [Pure # fraction] 6.0 E9/L Normal 2.0-7.5 [facility] Comment on above: Order Comment: Order Added by Discern Expert. Performed By: #### 2 565693, 8393983, 4075466, 0725002, 12993780 #### [facility] [address] [place] [address] [place] [address] CBC w/ Auto Diffon 0 Erythrocyte distribution width (RBC) [Ratio] 16.1 % High 10.9-14.2 [facility] Comment on above: Performed By: #### 2 111401, 6142512, 1895869, 9121976, 56589515 #### [facility] [address] [place] [address]45[address] Hematocrit (Bld) [Volume fraction] 45.1 % Normal 34.0-46.0 [facility] Comment on above: Performed By: #### 2 383487, 8126647, 0808951, 0121513, 46772511 #### [facility] [address] [place] [address]8741 Hemoglobin (Bld) [Mass/Vol] 15.0 g/dL Normal 12.0-16.0 [facility] Comment on above: Performed By: #### 2 528062, 4719788, 9852212, 8612101, 63618065 #### [facility] [address] [place] [address] 24113 MCH (RBC) [Entitic mass] 27.2 pg Normal 27.0-34.0 [facility] Comment on above: Performed By: #### 2 873463, 9285673, 7160134, 9808958, 80626518 #### [facility] [address] [place] [address]307 MCHC (RBC) [Mass/Vol] 33.2 g/dL Normal 31.4-36.0 [facility] Comment on above: Performed By: #### 2 610029, 2862436, 3902337, 6687998, 91715181 #### [facility] [address] [place] [address] 61529 MCV (RBC) [Entitic vol] 82.0 fL Normal 80.0-100.0 [facility] Comment on above: Performed By: #### 2 242355, 3650133, 7430221, 6125999, 01396091 #### [facility] [address] [place] [address] 61681 Platelet mean volume (Bld) [Entitic vol] 7.3 fL Normal 6.4-10.8 [facility] Comment on above: Performed By: #### 2 221342, 1171803, 3369523, 1616079, 69457566 #### [facility] [address] [place] [address] 80579 Platelets (Bld) [#/Vol] 253.0 E9/L Normal 150.0-500.0 [facility] Comment on above: Performed By: #### 2 470970, 8291645, 1380188, 4988703, 60633489 #### [facility] [address] [place], [place] [address] RBC (Bld) [#/Vol] 5.5 E12/L Normal 4.3-5.9 [facility] Comment on above: Performed By: #### 2 224674, 3290196, 8927679, 4359461, 00063203 #### [facility] [address] [place] [address] 45644 WBC corrected for nucl RBC Auto (Bld) [#/Vol] 9.1 E9/L Normal 4.0-11.0 [facility] Comment on above: Performed By: #### 2 117127, 4260953, 1100627, 1303400, 33530976 #### [facility] [address] [place] [address] 01635 CMPon 04-24-2020 Albumin [Mass/Vol] 3.7 g/dL Normal 3.3-5.0 [facility] Comment on above: Performed By: #### 2 285323, 7990669, 6701573, 1629900, 43350835 #### [facility] [address] [place] [address] 75977 Albumin [Mass/Vol] 1.0 g/dL Low 1.1-2.2 [facility] Comment on above: Performed By: #### 2 585060, 6856644, 7634084, 4594911, 30120732 #### [facility] [address] [place] [address] ALP [Catalytic activity/Vol] 107 Int._Unit/L High 21-98 [facility] Comment on above: Performed By: #### 2 554022, 8950472, 8695443, 0222923, 97096296 #### [facility] [address] [place] [address] ALT No additional P-5'-P [Catalytic activity/Vol] 17 Int._Unit/L Normal 6-46 [facility] Comment on above: Performed By: #### 2 314991, 1245758, 6753054, 4098408, 30344197 #### [facility] [address] [place] [address] Anion gap [Moles/Vol] 11 mmol/L Normal 6-16 [facility] Comment on above: Performed By: #### 2 096082, 3138639, 9987166, 8910722, 80249558 #### [facility] [address] [place] [address] AST [Catalytic activity/Vol] 21 Int._Unit/L Normal 5-43 [facility] Comment on above: Performed By: #### 2 890673, 2419913, 9806486, 9485728, 75658135 #### [facility] [address] [place] [address] Bilirubin [Mass/Vol] 0.5 mg/dL Normal 0.0-1.1 [facility] Comment on above: Performed By: #### 2 844299, 5267782, 6912604, 9476334, 64006822 #### [facility] [address] [place] [address] Calcium [Mass/Vol] 9.0 mg/dL Normal 8.9-11.1 [facility] Comment on above: Performed By: #### 2 344874, 4477041, 0560201, 8663045, 29116180 #### [facility] [address] [place] [address] Chloride [Moles/Vol] 107 mmol/L Normal 101-111 [facility] Comment on above: Performed By: #### 2 285487, 2331203, 3216206, 9803018, 43149151 #### [facility] [address] [place] [address] CO2 [Moles/Vol] 27 mmol/L Normal 21-31 [facility] Comment on above: Performed By: #### 2 090518, 2693299, 1653405, 1614913, 81534009 #### [facility] [address] [place] [address] Creatinine [Mass/Vol] 0.8 mg/dL Normal 0.5-1.3 [facility] Comment on above: Performed By: #### 2 984742, 6053716, 1772358, 7781509, 77488454 #### [facility] [address] [place] [address] Globulin (S) [Mass/Vol] 3.7 g/dL Normal 1.4-4.0 [facility] Comment on above: Performed By: #### 2 060954, 0561198, 7313950, 5447032, 14378720 #### [facility] [address] [place] [address] Glucose [Mass/Vol] 134 mg/dL Normal 55-199 [facility] Comment on above: Result Comment: If t his glucose result represents a fasting glucose, interpretation should refer to the following reference range: 55-99 mg/dL Performed By: #### 2 864497, 4118459, 3838941, 8975773, 17092572 #### [facility] [address] [place] [address] Potassium [Moles/Vol] 3.9 mmol/L Normal 3.5-5.3 [facility] Comment on above: Performed By: #### 2 497173, 1577990, 8302992, 7900263, 45933799 #### [facility] [address] [place] [address] Protein [Mass/Vol] 7.4 g/dL Normal 6.0-7.8 [facility] Comment on above: Performed By: #### 2 006305, 8852432, 0903755, 2178680, 69201120 #### [facility] [address] [place] [address] Sodium [Moles/Vol] 141 mmol/L Normal 135-145 [facility] Comment on above: Performed By: #### 2 475357, 2561757, 9665834, 4148219, 36225804 #### [facility] [address] [place] [address] Urea nitrogen [Mass/Vol] 17 mg/dL Normal 5-21 [facility] Comment on above: Performed By: #### 2 814027, 6308173, 7122715, 2188099, 58862754 #### [facility] [address] [place] [address] Urea nitrogen/Creatinine [Mass ratio] 21 No Units High 10-20 [facility] Comment on above: Performed By: #### 2 682122, 0372317, 7108760, 4340899, 68931187 #### [facility] [address] [place] [address] Consent for Treatmenton 04-10 Consent for Treatment [id number]#1.0 0CD:127 Normal [facility] Lipase Levelon 04-24-2020 Lipase [Catalytic activity/Vol] 40 unit/L Normal 13-58 [facility] Comment on above: Performed By: #### 2 792125, 2938229, 0199316, 7472560, 95161097 #### [facility] [address] [place] [address] Physician Orderon 04-24-2020 Physician Order [id number]#1.00 CD:127 Normal [facility] eGFRon 04-24-2020 GFR/1.73 sq M predicted among blacks MDRD (S/P/Bld) [Vol rate/Area] mL/min/{1.73_m2} Normal >=59 [facility] Comment on above: Order Comment: Order added by Discern Expert. Result Comment: eGFR is race adjusted. AA=. Performed By: #### 2 028249, 9190922, 4213447, 7235039, 60481169 #### [facility] Laboratory [address] [place] [address] GFR/1.73 sq M predicted among non-blacks MDRD (S/P/Bld) [Vol rate/Area] mL/min/{1.73_m2} Normal >=59 [facility] Comment on above: Order Comment: Order added by Discern Expert. Result Comment: Forging Die Sinker farhan kidney disease could be indicated at eGFR's of less than 60 mL/min/1.73m2. Kidney failure is indicated at less than 15 mL/min/1.73m2. Performed By: #### 2 875356, 2823438, 6171696, 4304556, 90145596 #### [facility] [address] [place] [address] PROGRESSon 11-04-2019 PROGRESS HNO ID: [id number] Author: Bridger Ma Service: ? Author Type: Physician Type: Progress Notes Filed: 11/04/2019 5:12 PM Note Text: Bridger Ma MD Department of Orthopaedics Orthopaedics [address] [place] [address] Dept: [phone] October 05, 2019 CHIEF COMPLAINT: New Patient [...] as to contrast therapies and/or to take analgesics/anti-inflam matories as needed and all contraindications were reviewed. [...] by mouth twice daily with meals. - HYDROcodone-acetaminop hen (NORCO) 5-325 mg per tablet Take 1 tablet by mouth every 6 hours as needed for Pain. - atenolol (TENORMIN) 25 mg tablet Take 50 mg by mouth daily at bedtime. - fluticasone-salmeterol (ADVAIR DISKUS) 500-50 mcg/dose dsdv Inhale 1 [...] electronic medical record. Caitlyn Cantu, LIZZY [address] [facility] [address] Toby Quintana MD [address] [place] [phone] This note was partially generated using Nursenav voice recognition system, and there may be some incorrect words, spellings, and punctuation that were not noted in checking the note before saving. Bridger Ma MD [facility] CNOVon 10-05-2019 CNOV Office Visit (ORMDNA ) ADRIANA DINERO ([id number]) 1955 F Date Time Provider Department 10/05/19 2:45 PM BRIDGER MA During your visit today, we recorded the following information about you: Pulse Blood pressure Weight Height 81/minute 121/58 124.2 kg 1.676 m Eleanor Talbot Ks 11/04/2019 5:12 PM Signed Patient presents with: New Patient: Right knee pain - Ref. 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 Patient had an x-ray done at [facility] on 11/02/18 and a MRI on 1/21/19. Patient hand carried copies of the reports and films on a CD. with patient today. Referred by Caitlyn Cantu. Taking Nichols and Naproxen for the pain and does not help. Using a walker today and as needed at home. Bridger Ma MD 11/04/2019 5:12 PM Signed Bridger Ma MD Department of Orthopaedics Orthopaedics [address] [address] Dept: [phone] October 05, 2019 CHIEF COMPLAINT: New Patient [...] as to contrast therapies and/or to take analgesics/anti-inflam matories as needed and all contraindications were reviewed. [...] by mouth twice daily with meals. - HYDROcodone-acetaminop hen (NORCO) 5-325 mg per tablet Take 1 tablet by mouth every 6 hours as needed for Pain. - atenolol (TENORMIN) 25 mg tablet Take 50 mg by mouth daily at bedtime. - fluticasone-salmeterol (ADVAIR DISKUS) 500-50 mcg/dose dsdv Inhale 1 [...] or electronic medical record. LIZZY Graham [address] [place] [phone] Toby Quintana MD [address] [place] [phone] This note was partially generated using [employer] voice recognition system, and there may be some incorrect words, spellings, and punctuation that were not noted in checking the note before saving. Bridger Ma MD Referring Provider: CAITLYN CANTU [[id number]] Allergies As of Date: 10/05/2019 Noted Allergy [...] mg injection (CELESTONE)Disp: Rfl: [facility] [[id number]] Order #: [id number]: 1 Large Joint Arthro/Inj: R knee joint [XVR281] Order #: [id number] betamethasone acetate-betamethasone sodium phosphate 6 mg injection [...] Status:Closed by BRIDGER MA MD on 11/04/19 [facility] PROGRESSon 10-05-2019 PROGRESS HNO ID: [id number] Author: Eleanor Talbot Ma Service: ? 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 Patient had an x-ray done at [facility] on 11/02/18 and a MRI on 11/30/18. Patient hand carried copies of the reports and films on a CD. with patient today. Referred by Caitlyn Cantu. Taking Nichols and Naproxen for the pain and does not help. Using a walker today and as needed at home. Normal [facility] CREATININEon 08-26-2019 Creatinine [Mass/Vol] 0.80 mg/dL Normal 0.50 - 1.05 [facility] Comment on above: Performed By: #### C REAT #### [address] [address] Creatinine [Mass/Vol] mg/dL Normal >60 [facility] Comment on above: Performed By: #### C REAT #### [address] [address] Result Comment: CALC ULATIONS OF ESTIMATED GFR ARE PERFORMED USING THE MDRD STUDY EQUATION FOR THE IDMS-TRACEABLE CREATININE METHODS. CLIN CHEM 2007;53:766-72 ELECTROLYTE PANELon 08-26-20 19 Anion gap [Moles/Vol] 14 mmol/L Normal 10 - 20 [facility] Comment on above: Performed By: #### E LECT #### [address] [address] Chloride [Moles/Vol] 104 mmol/L Normal 98 - 107 [facility] Comment on above: Performed By: #### E LECT #### [address] [address] HCO3 (Bld) [Moles/Vol] 29 mmol/L Normal 21 - 32 [facility] Comment on above: Performed By: #### E LECT #### [address] [address] Potassium [Moles/Vol] 4.6 mmol/L Normal 3.5 - 5.3 [facility] Comment on above: Performed By: #### E LECT #### [address] [address] Sodium [Moles/Vol] 142 mmol/L Normal 136 - 145 [facility] Comment on above: Performed By: #### E LECT #### [address] [address] [address] UREA NITROGENon 08-26-2019 Urea nitrogen [Mass/Vol] 14 mg/dL Normal 6 - 23 [facility] Comment on above: Performed By: #### U CARLOS #### [address] [address] [facility] CARDIAC STRESS/REST INJE CTIONon 08-25-2019 [facility] CARDIAC STRESS/REST INJECTION Patient Name: ADRIANA DINERO STUDY: MYOCARDIAL PERFUSION STRESS TEST WITH LEXISCAN Performing facility: [facility], [address] [place] [address], [address], [address] Provider: GURU LU PCP: Dr. Poli QUINTANA Supervising provider: Poli VILLAFANA INDICATION: DYSPNEA EDEMA HISTORY: Gender: F; Age: 64 y/o ; Height: 170.18 cm; Weight: 127.024605 kg. SOB High Cholesterol; Family HX CAD; PALPITATIONS COMPARISON: ACCESSION NUMBER(S): [id number] ORDERING CLINICIAN: IBAN LU TECHNIQUE: TWO DAY [...] Electronically signed by: IBAN LU MD Normal [facility] OT-MRI KNEE RT WO CON IMPORT on 07-27-2019 OT-MRI KNEE RT WO CON IMPORT Images were obtained outside of [facility] [id number] Normal [facility] CNOVon 07-07-2019 CNOV Office Visit (SPNMED ) ADRIANA DINERO ([id number]) 1955 F Date Time Provider Department 07/07/19 9:40 AM CAITLYN CANTU SPNMED During your visit today, we recorded the following information about you: Pulse Blood pressure Weight Height 80/minute 126/55 124.1 kg 1.676 m LIZZY Graham 07/07/2019 1:08 PM Signed BEVERLEY Lopez [facility] [address] [place] [address] 07/07/2019 Assessment Diagnosis: Encounter Diagnosis ICD-10-CM 1. [...] told for multiple years that she has crid-dt-ujmm arthritis in the right knee and this [...] record for those providers who practice within [facility] or with access to [facility] via MD Connect, or via letter. - [...] past--per[place] [address] Jones in [place]. The procedure was a spinal laminectomy and fusion L2-4, and subsequent revision L2-5 lami/fusion with posterior hardware and interbody cages. 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-OPERATIVE CARE: Medication(s): She has tried the [...] file Gets together: Not on file Attends anglican service: Not on file Active member of [...] L: 5/5 Triceps R: -4/5 L: 5/5 Apron Cleaner R: -2/5 L: 5/5 Interossei R: 0/5 [...] Visit: New Patient Evaluation [154] Primary Visit Diagnosis:Fibromyalgia [M79.7] Other Visit Diagnoses:History of lumbar spinal fusion [Z98.1] Chronic neck pain [M54.2, G89.29] Primary osteoarthritis of right knee [M17.11] Order(s):CONSULT TO ORTHOPAEDIC SURGERY [[id number]] Order #: [id number]: 1 Prescriptions as of 07/07/2019 Sig: ALPRAZOLAM [...] Status:Closed by CAITLYN CANTU PA-C on 07/07/19 [facility] PROGRESSon 07-07-2019 PROGRESS HNO ID: [id number] Author: Caitlyn Cantu Service: ? Author Type: Physician Paralegals Type: Progress Notes Filed: 07/07/2019 1:08 PM Note Text: Caitlyn [facility]u [facility]C [facility] [address] [place] [address] [place] [address] 07/07/2019 Assessment Diagnosis: Encounter Diagnosis ICD-10-CM 1. [...] told for multiple years that she has pjtf-jj-dlev arthritis in the right knee and this [...] record for those providers who practice within [facility] or with access to [facility] via MD Connect, or via letter. SUBJECTIVE: [...] past--[place] [address] Jones in [place]. The procedure was a spinal laminectomy and fusion L2-4, and subsequent revision L2-5 lami/fusion with posterior hardware and interbody cages. 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 IMAGING STUDIES: See above Normal [facility] CT-CT cervical spine w con I MPORTon 04-08-2019 CT-CT cervical spine w con IMPORT Images were obtained outside of [facility] [id number] Normal [facility] CT-CT cervical spine w con IMPORT Images were obtained outside of [facility] [id number] Normal [facility] CT-CT cervical spine w con IMPORT Images were obtained outside of [facility] [id number] Normal [facility] CT-CT lumbar spine w con IMP Edi 04-08-2019 CT-CT lumbar spine w con IMPORT Images were obtained outside of [facility] [id number] Normal [facility] CT-CT lumbar spine w con IMPORT Images were obtained outside of [facility] [id number] Normal [facility] CT-CT lumbar spine w con IMPORT Images were obtained outside of [facility] [id number] Normal [facility] OT-IR myelogram spine total IMPORTon 04-08-2019 OT-IR myelogram spine total IMPORT Images were obtained outside of [facility] [id number] Normal [facility] OT-IR myelogram spine total IMPORT Images were obtained outside of [facility] [id number] Normal [facility] OT-IR myelogram spine total IMPORT Images were obtained outside of [facility] [id number] Normal [facility] OT-MRI C-SPINE WO CON IMPORT on 02-25-2019 OT-MRI C-SPINE WO CON IMPORT Images were obtained outside of [facility] [id number] Normal [facility] OT-XR KNEE RT 4V OR > IMPORT on 11-30-2018 OT-XR KNEE RT 4V OR > IMPORT Images were obtained outside of [facility] [id number] Normal [facility] Vital Signs Date Time Vital Sign Value Performing Clinician Facility 02-10-2024 13:04-0400 Body height 167.64 cm [facility] 02-10-2024 13:04-0400 Body mass index (BMI) [Ratio] 38.5 kg/m2 [facility] 02-10-2024 13:04-0400 Body weight 108.4 kg [facility] 02-10-2024 13:04-0400 Diastolic blood pressure 73 mm[Hg] [facility] 02-10-2024 13:04-0400 Heart rate 85 /min [facility] 02-10-2024 13:04-0400 Systolic blood pressure 105 mm[Hg] [facility] 01-19-2024 08:44-0400 Body height 167.64 cm [facility] 12-30-2023 09:55-0500 Body height 167.64 cm [facility] 12-30-2023 09:55-0500 Body mass index (BMI) [Ratio] 38.9 kg/m2 [facility] 12-30-2023 09:55-0500 Body weight 109.31 kg [facility] 12-30-2023 09:55-0500 Diastolic blood pressure 76 mm[Hg] [facility] 12-30-2023 09:55-0500 Heart rate 69 /min [facility] 12-30-2023 09:55-0500 Systolic blood pressure 120 mm[Hg] [facility] 12-09-2023 10:32-0500 Diastolic blood pressure 80 mm[Hg] Iban Lu MD Work Phone: [facility] 12-09-2023 10:32-0500 Systolic blood pressure 130 mm[Hg] Iban Lu MD Work Phone: [facility] 12-09-2023 09:46-0500 Body height 167.6 cm Iban Lu MD Work Phone: [facility] 12-09-2023 09:46-0500 Body mass index (BMI) [Ratio] 39.06 kg/m2 Iban Lu MD Work Phone: [facility] 12-09-2023 09:46-0500 Body weight 109.77 kg Iban Lu MD Work Phone: [facility] 12-09-2023 09:46-0500 Heart rate 68 /min Iban Lu MD Work Phone: [facility] 08-20-2023 09:00-0400 Body height 167.64 cm Toby Quintana Other [employer] Other 08-20-2023 09:00-0400 Body mass index (BMI) [Ratio] 38.38 kg/m2 Toby Quintana Other [employer] Other 08-20-2023 09:00-0400 Body weight 107.87 kg Toby Quintana Other [employer] Other 08-20-2023 09:00-0400 Diastolic blood pressure 75 mm[Hg] Toby Quintana Other [employer] Other 08-20-2023 09:00-0400 Systolic blood pressure 108 mm[Hg] Toby Quintana Other [employer] Other 04-24-2023 11:15-0400 Body height 167.64 cm Toby Quintana Other [employer] Other 04-24-2023 11:15-0400 Body mass index (BMI) [Ratio] 38.73 kg/m2 Toby Quintana Other [employer] Other 04-24-2023 11:15-0400 Body weight 108.86 kg Toby Quintana Other [employer] Other 04-24-2023 11:15-0400 Diastolic blood pressure 79 mm[Hg] Toby Quintana Other [employer] Other 04-24-2023 11:15-0400 Systolic blood pressure 114 mm[Hg] Toby Quintana Other [employer] Other 02-07-2023 09:30-0400 Body height 167.64 cm Toby Quintana Other [employer] Other 02-07-2023 09:30-0400 Body mass index (BMI) [Ratio] 39.99 kg/m2 Toby Quintana Other [employer] Other 02-07-2023 09:30-0400 Body weight 112.4 kg Toby Quintana Other [employer] Other 02-07-2023 09:30-0400 Diastolic blood pressure 68 mm[Hg] Toby Quintana Other [employer] Other 02-07-2023 09:30-0400 Respiratory rate 18 /min Toby Quintana Other [employer] Other 02-07-2023 09:30-0400 SaO2% (BldA) [Mass fraction] 93 % Toby Quintana Other [employer] Other 02-07-2023 09:30-0400 Systolic blood pressure 142 mm[Hg] Toby Quintana Other [employer] Other 01-08-2023 10:00-0500 Body height 167.64 cm Samuel Chatman II Other [employer] Other 01-08-2023 10:00-0500 Body mass index (BMI) [Ratio] 40.19 kg/m2 Samuel Chatman II Other [employer] Other 01-08-2023 10:00-0500 Body weight 112.95 kg Samuel Chatman II Other [employer] Other 12-09-2022 13:25-0500 Body height 167.64 cm Toby Quintana Work Phone: [facility] 250 DO Work Phone: 12-09-2022 13:25-0500 Body mass index (BMI) [Ratio] 40.03 kg/m2 Toby Quintana Work Phone: [facility] [facility] DO Work Phone: 12-09-2022 13:25-0500 Body surface area Derived from formula 2.19 m2 Toby Quintana Work Phone: [facility] 250 DO Work Phone: 12-09-2022 13:25-0500 Body weight 112.49 kg Toby Quintana Work Phone: [facility] 250 DO Work Phone: 12-09-2022 13:25-0500 Diastolic blood pressure 80 mm[Hg] Toby Quintana Work Phone: [facility] 250 DO Work Phone: 12-09-2022 13:25-0500 Heart rate 78 /min Toby Quintana Work Phone: [facility] 250 DO Work Phone: 12-09-2022 13:25-0500 Systolic blood pressure 118 mm[Hg] Toby Quintana Work Phone: [facility] 250 DO Work Phone: 11-22-2022 09:00-0500 Body height 167.64 cm Leeann Quintana Other [employer] Other 11-22-2022 09:00-0500 Body mass index (BMI) [Ratio] 39.54 kg/m2 Leeann Blades Other [place] [employer] Other 11-22-2022 09:00-0500 Body weight 111.13 kg Leeann Blades Other [employer] Other 09-04-2021 13:27-0400 Body height 170.18 cm Toby Quintana Work Phone: [facility] [employer] 250 DO Work Phone: 09-04-2021 13:27-0400 Body mass index (BMI) [Ratio] 39.78 kg/m2 Toby Quintana Work Phone: [facility] [employer] 250 DO Work Phone: 09-04-2021 13:27-0400 Body surface area Derived from formula 2.24 m2 Toby Quintana Work Phone: [facility] 250 DO Work Phone: 09-04-2021 13:27-0400 Body weight 115.21 kg Toby Quintana Work Phone: [facility] 250 DO Work Phone: 09-04-2021 13:27-0400 Diastolic blood pressure 78 mm[Hg] Toby Quintana Work Phone: [facility] 250 DO Work Phone: 09-04-2021 13:27-0400 Heart rate 80 /min Toby Quintana Work Phone: [facility] 250 DO Work Phone: 09-04-2021 13:27-0400 Systolic blood pressure 104 mm[Hg] Toby Quintana Work Phone: [facility] 250 DO Work Phone: Encounters Encounter Date Encounter Type Care Provider Facility Start: 02-10-2024 End: 02-10-2024 ambulatory [facility] Work Phone: Start: 02-10-2024 End: 02-10-2024 Patient encounter procedure [facility] Physician [facility] Work Phone: Start: 01-19-2024 End: 01-19-2024 Patient encounter procedure [facility] Physician [facility] Work Phone: Start: 01-14-2024 Non-patient / Non-visit [facility] Physician [facility] Work Phone: Start: 01-05-2024 Non-patient / Non-visit [facility] Physician [facility] Work Phone: Start: 12-30-2023 Patient encounter procedure [facility] Start: 12-30-2023 End: 12-30-2023 ambulatory [facility] Work Phone: Start: 12-30-2023 End: 12-30-2023 Patient encounter procedure [facility] Physician [facility] Work Phone: Start: 12-19-2023 End: 12-19-2023 ambulatory Toby Quintana Other [employer] Other Start: 12-19-2023 Telephone encounter Toby Quintana [facility] Start: 12-17-2023 End: 12-17-2023 ambulatory Toby Quintana Other [employer] Other Start: 12-17-2023 Telephone encounter Toby Quintana [facility] Start: 12-16-2023 (Televisit) Televisit Toby Quintana [facility] Start: 12-16-2023 End: 12-16-2023 ambulatory Toby Quintana Other [employer] Other Start: 12-09-2023 End: 12-09-2023 ambulatory [facility] Start: 12-09-2023 End: 12-09-2023 Office outpatient visit 25 minutes Iban Lu MD Work Phone: [facility] Comment on above: Supraventricular tac hycardia by ECG (Primary Dx); Mixed hyperlipidemia; Palpitations; Class II obesity Start: 12-08-2023 End: 12-08-2023 ambulatory Toby Quintana Other [employer] Other Start: 12-08-2023 Telephone encounter Toby Quintana [facility] Start: 11-04-2023 End: 11-04-2023 ambulatory Toby Quintana Other [employer] Other Start: 11-04-2023 Telephone encounter Toby Quintana [facility] Start: 10-21-2023 (Televisit) Televisit Toby Quintana [facility] Start: 10-21-2023 End: 10-21-2023 ambulatory Toby Quintana Other [employer] Other Start: 10-21-2023 End: 10-21-2023 Patient encounter procedure [facility] Work Phone: Start: 10-20-2023 End: 10-20-2023 ambulatory Toby Quintana Other [employer] Other Start: 10-20-2023 Telephone encounter Toby Quintana [facility] Start: 09-25-2023 (Televisit) Televisit Toby Quintana [facility] Start: 09-25-2023 End: 09-25-2023 ambulatory Toby Quintana Other [employer] Other Start: 09-22-2023 (Televisit) Televisit Toby Quintana [facility] Start: 09-22-2023 End: 09-22-2023 ambulatory Toby Quintana Other [employer] Other Start: 09-22-2023 Telephone encounter Toby Mariano [facility] Start: 08-20-2023 End: 08-20-2023 ambulatory Toby Quintana Other [employer] Other Start: 08-20-2023 Patient encounter procedure Toby Mariano [facility] Start: 05-22-2023 Telephone encounter Toby Michael raun Work Phone: [facility] 600 DO Work Phone: Start: 05-12-2023 End: 05-12-2023 ambulatory Toby Quintana Other [employer] Other Start: 05-12-2023 Telephone encounter Toby Quintana [facility] Start: 04-24-2023 End: 04-24-2023 ambulatory Toby Quintana Other [employer] Other Start: 04-24-2023 Office outpatient vi sit 15 minutes Toby Quintana [facility] Start: 04-11-2023 End: 04-11-2023 ambulatory Toby Quintana Other [employer] Other Start: 04-11-2023 Telephone encounter Toby Mariano [facility] Start: 03-13-2023 End: 03-13-[address] EVIN BYERS Facility:UNKNOWN Start: 03-13-[address] Toby Quintana Facility:[id number] Start: 02-07-2023 End: 02-07-2023 ambulatory Toby Quintana Other [employer] Other Start: 02-07-2023 Patient encounter procedure Toby Quintana [facility] Start: 02-03-2023 End: 02-03-2023 ambulatory Leeann Quintana Other [employer] Other Start: 02-03-2023 Telephone encounter Leeann Busby [employer] Start: 01-27-2023 End: 01-27-2023 ambulatory Leeann Blades Other [employer] Other Start: 01-27-2023 Telephone encounter Leeann Blades [facility] Start: 01-21-[address] TOBY QUINTANA Facil ity:[facility]1 Start: 01-16-2023 End: 01-16-2023 ambulatory Samuel Chatman II Other [employer] Other Start: 01-16-2023 Telephone encounter Samuel Guajardoronnie PAYNE [facility] [employer] Start: 01-08-2023 [facility] visit new patient Samuel Goodman nayeli PAYNE [facility] Start: 01-08-2023 End: 01-08-2023 ambulatory Samuel Chatman II Facility:[facility] Start: 01-08-2023 End: 01-08-2023 ambulatory MD Toby Quintana Work Phone: [facility] Work Phone: Start: 01-08-2023 End: 01-08-2023 Patient encounter procedure MD Toby Quintana Work Phone: [facility] [place] [facility] Start: 01-02-2023 End: 01-02-2023 ambulatory Toby Quintana Other [employer] Other Start: 01-02-2023 Telephone encounter Leeann Blades [facility] Start: 12-30-2022 End: 12-30-2022 ambulatory Leeann Blades Other [employer] Other Start: 12-30-2022 Telephone encounter Leeann Blades [facility] Start: 12-26-2022 End: 12-26-2022 ambulatory Leeann Blades Other [employer] Other Start: 12-26-2022 Telephone encounter Leeann Blades [facility] Start: 12-19-2022 End: 12-19-2022 ambulatory Leeann Blades Other [employer] Other Start: 12-19-2022 Telephone encounter Leeann Blades [facility] Start: 12-17-2022 End: 12-17-2022 ambulatory Toby Quintana Other [employer] Other Start: 12-17-2022 Telephone encounter Toby Quintana [facility] Start: 12-10-2022 End: 12-10-2022 ambulatory Toby Quintana Other [facility] [employer] Other Start: 12-10-2022 Telephone encounter Toby Quintana [facility] Start: 12-09-2022 Office outpatient vi sit 25 minutes Toby Quintana Work Phone: [facility] 250 DO Work Phone: Start: 12-09-[address] Iban Castro [facility] Facility: Start: 11-25-2022 End: 11-25-2022 ambulatory Leeann Blades Other [facility] [employer] Other Start: 11-25-2022 Telephone encounter Leeann Blades F [facility] [employer] Start: 11-22-2022 Office outpatient ne w 45 minutes Leeann Blades [facility] Start: 11-22-2022 End: 11-22-2022 ambulatory Leeann Blades Facility:[facility] Start: 11-22-2022 End: 11-22-2022 ambulatory MD Toby Quintana Work Phone: [facility] Work Phone: Start: 11-22-2022 End: 11-22-2022 Patient encounter procedure MD Toby Quintana Work Phone: [facility] [place] Work Phone: Start: 11-05-2022 Adult health examination Nannette Quintana Other [facility] [employer] Other Start: 11-05-2022 Pre-procedure evalua tion check Toby Quintana Other [facility] [employer] Other Start: 10-04-2022 End: 10-05-[address] SHALA OMER Facility:[facility] Start: 09-16-2022 Rx Renewal Toby Quintana Work Phone: [facility] 250 DO Work Phone: Start: 07-24-2022 End: 07-24-[address] TOBY QUINTANA Facility:[facility] Start: 07-22-2022 End: 07-22-[address] LAUREL BRAVO Facility:[facility] Start: 04-18-2022 Encounter for genera l adult medical examination without abnormal findings DR TOBY QUINTANA [facility] Start: 04-13-2022 End: 04-14-[address] TOBY QUINTANA Facility:[facility] Start: 04-12-2022 End: 04-13-[address] TOBY QUINTANA Facility:[facility] Start: 04-12-2022 End: 04-13-2022 Encounter for general adult medical examination without abnormal findings DR TOBY QUINTANA Facility:[facility] Start: 09-04-2021 FUV, Provider: Iban Lu, Status: Pen, Time: 2:00 PM Toby Quintana Work Phone: [facility] [address] [place] Work Phone: Start: 09-04-2021 Office outpatient vi sit 25 minutes Toby Quintana Work Phone: [facility] 250 DO Work Phone: Start: 08-30-2021 Rx Renewal Toby Quintana Work Phone: [facility] [address] [place] Work Phone: Procedures Date Procedure Procedure Detail Performing Clinician Start: 01-08-2023 Plain X-ray of left hip MD Toby Quintana Work Phone: Start: 11-22-2022 X-ray of lumbar spin e, four views MD Toby Quintana Work Phone: Start: 11-22-2022 Plain x-ray of pelvi s and lower extremity MD Toby Quintana Work Phone: Start: 09-10-2016 Screening mammography Poli neiledgard Quintana Other Start: 12-01-2013 General examination of patient Toby Mariano Other Cholecystectomy Toby Scohfield Bra un Work Phone: Hysterectomy Toby Quintana Work Phone: Procedure on back Toby Schofield B raun Work Phone: Plan of Treatment Date Care Activity Detail Author Start: 12-09-2024 End: 12-09-2024 Patient encounter procedure 12/09/2024 9:00 AM EST Office Visit [facility] [address] [facility] [place] [address] [place] [phone] Iban Lu MD [facility] [facility] [place] [address] [place] [address] [facility] Start: 01-19-2024 Patient referral [facility] Work Phone: Start: 12-09-2023 End: 12-09-2024 Basic metabolic 2000 panel - Serum or Plasma Basic Metabolic Panel Lab Routine Supraventricular tachycardia by ECG Palpitations Expected: 12/09/2023 (Approximate), Expires: 12/09/2024 [facility] Service Area Work Phone: Comment on above: Expected: 12/09/2023 (Approximate), Expires: 12/09/2024 Start: 12-09-2023 FUV, Provider: Iban Lu, Status: Pen, Time: 10:00 AM FUV, Provider: Iban Lu, Status: Pen, Time: 10:00 AM [facility] 250 DO Work Phone: Start: 07-11-2023 COVID-19 Vaccine () COVID-19 Vaccine ( season) [facility] Start: 07-11-2023 Influenza vaccination Influenza Vacc ine (#1) [facility] Start: 09-20-2022 FUV, Provider: Iban Lu, Status: Pen, Time: 2:20 PM FUV, Provider: Iban Lu, Status: Pen, Time: 2:20 PM [facility] [employer] 250 DO Work Phone: Start: 09-05-2022 FUV, Provider: Iban Lu, Status: Pen, Time: 11:20 AM FUV, Provider: Iban Lu, Status: Pen, [facility]: [facility]:20 [facility] Work Phone: Start: 01-19-2006 Zoster Vaccines (1 o f 2) Zoster Vaccines (1 of 2) [facility] Start: 1996 Screening for malign ant neoplasm of breast Mammogram [facility] Start: 01-19-1978 DTaP/Tdap/Td Vaccine s (1 - Tdap) DTaP/Tdap/Td Vaccines (1 - Tdap) [facility] Start: 01-19-1974 Hepatitis C screening Hepatitis C Sc [facility] Start: 01-19-1962 Pneumococcal Vaccine : 65+ Years (1 - PCV) Pneumococcal Vaccine: 65+ Years (1 - PCV) [facility] Start: 1955 Lipid panel Lipid Panel [facility] Start: 1955 Medicare Annual Wellness Visit Medicare Annual Wellness Visit (AWV) [facility] Start: 1955 Screening for malign ant neoplasm of colon [facility] Start: 1955 Screening for osteoporosis Bone Density Scan [facility] Comprehensive metabo lic 2000 panel - Serum or Plasma [facility] Patient referral [facility] Work Phone: [facility] Immunizations Immunization Date Immunization Notes Care Provider Fa vern 09-06-2022 Pfizer COVID-19 Vac Bivalent 30 MCG/0.3ML Intramuscular Suspension Toby Quintana Work Phone: [facility] 250 DO Work Phone: 07-02-2021 Pfizer-BioNTech COVI D-19 Vacc 30 MCG/0.3ML Intramuscular Suspension Toby Quintana Work Phone: [facility] Comment on above: Series: 06-11-2021 Pfizer-BioNTech COVI D-19 Vacc 30 MCG/0.3ML Intramuscular Suspension Toby Quintana Work Phone: [facility] Comment on above: Series: 09-12-2014 tetanus and diphther ia toxoids, adsorbed, preservative free, for adult use (5 Lf of tetanus toxoid and 2 Lf of diphtheria toxoid) Toby Quintana Other [facility] 09-15-2013 tetanus and diphther ia toxoids, adsorbed, preservative free, for adult use (5 Lf of tetanus toxoid and 2 Lf of diphtheria toxoid) Toby Quintana Other [facility] 09-14-2013 influenza, seasonal, injectable Toby Quintana Work Phone: [facility] 09-14-2013 influenza virus vacc ine, unspecified formulation Iban Lu MD Work Phone: [facility] Work Phone: 08-10-2013 influenza virus vacc ine, unspecified formulation Toby Quintana Work Phone: [facility] 250 DO Work Phone: 07-19-2012 influenza virus vacc ine, unspecified formulation Toby Quintana Work Phone: [facility] 250 DO Work Phone: 11-10-2009 influenza virus vacc ine, unspecified formulation Toby Quintana Work Phone: [facility] 250 DO Work Phone: 08-10-2009 influenza virus vacc ine, unspecified formulation Toby Quintana Work Phone: [facility] 250 DO Work Phone: 07-14-2007 pneumococcal polysaccharide vaccine, 23 sarai Quintana Other [facility] Payers Date Payer Category Payer Medicare [id number] 2023 Medicare [employer] MEDICARE A ETNA MEDICARE VALUE PLAN [id number] 2023-Present [address] [place] [address] [id number] 2022 Self-pay [id number] 1959 Unknown [id number] 1959 Unknown [id number] 2.16.8 [id number] 1956 Unknown [id number] [id number] 1956 Unknown [id number] [id number] 1956 Unknown [id number] 2.16.840.1.632236.3.579.2.593 1956 Unknown [id number] 2.16.840.1.642322.3.579.2.593 1956 Unknown [id number] 2.16.840.1.191316.3.579.2.593 1956 Unknown [id number] 2.16.840.1.364983.3.579.2.593 1956 Unknown [id number] 2.16.840.1.969639.3.579.2.693 1956 Unknown [id number] 2.16.840.1.209587.3.579.2.356 1956 Unknown [id number] 2.16.840.1.235721.3.579.2.356 1956 Unknown [id number] 2.16.840.1.405502.3.579.2.1244 Unknown Unknown HCAP/HFA/FAP Active [id number] Unknown [id number] [id number] Unknown [id number] [id number] Social History Date Type Detail Facility Start: 12-09-2023 No illicit drug use No illicit drug use [place] [id number] Work Phone: Comment on above: Coffee 1 cup daily; quit 1987; Start: 1955 Sex Assigned At Female F [facility] Start: 12-09-2023 Sex Assigned At N [facility] [employer] Other Start: 12-09-2023 Tobacco smoking status NHIS Ex-smoker [facility] Work Phone: History of tobacco use Current smoker [facility] Work Phone: History of tobacco use Cigarette Smoker [facility] Work Phone: Start: 12-09-2023 Tobacco use and exposure Smokeless tobacco non-user [facility] Work Phone: Start: 12-09-2023 Alcohol intake Lifetime non-d mary (finding) [facility] Work Phone: Start: 1955 Sex Assigned At Not on file [facility] Work Phone: Start: 11-29-2023 End: 12-09-2023 Exposure to SARS-CoV-2 (event) Not sure [facility] Clinical Notes 11-22-2022 to 12-17-2023 Note Date & Type Note Facility 12-17-2023 Evaluation note Encounter Date Diagnosis Assessment Notes Dec, Jaw swelling (ICD-10 - R22.0) [employer] Other 02-06-2024 Evaluation note* Encounter Date Diagnosis Assessment Notes Treatment Notes Treatment Clinical Notes Dec, Dental infection (ICD-10 - K04.7) Pt will contact her insurance, find a different dentist. Will continue antibiotic at this time. [employer] Other 01-30-2024 History of Present illness Narrative* [...] follow-up will be scheduled Iban Lu MD, [facility] Review of Systems Cardiovascular: Positive for palpitations. [...] EVENING, Disp: 225 tablet, Rfl: 0 omega 3-tqv-avf-fish oil 360 mg-108 mg- 180 mg-1,200 mg [...] of Iban Lu MD. documented in this [facility] Work Phone: [phone]) 117-709001-30-2024 Instructions* Patient Instructions* Nataliya Manning LPN - [...] Follow up one year documented in this [facility] Work Phone: [phone] Evaluation note* Encounter Date Diagnosis Assessment Notes Treatment Notes Treatment Clinical Notes Oct, Open fracture of tooth, initial encounter (ICD-10 - S02.5XXB) Keep area clean, brush and rinse frequently. seeing dentist next week. Oct, Lumbar radiculitis (ICD-10 - M54.16) pt requests refill for her chronic back issues. We discussed her treatment plan w Dr. Byers. [employer] Other 11-16-2023 Evaluation note* Encounter Date Diagnosis Assessment Notes Treatment Notes Treatment Clinical Notes Sep, Lumbar radiculitis (ICD-10 - M54.16) CHanged pain med. Jax will call Dr. Byers's office for a change in treatment plan and an appt. Sep, Nausea & vomiting (ICD-10 - R11.2) States that zofran has not helped in the past - phenergan sent in for short term use. [employer] Other 11-13-2023 Evaluation note* Encounter Date Diagnosis Assessment Notes Treatment Notes Treatment Clinical Notes Sep, Radiculopathy, lumbar region (ICD-10 - M54.16) My staff reviewed her case with Dr. Byers's staff. She is to call their office for follow-up appointment next month. Patient does not want another injection and would rather have an ablation. Trial of tramadol sent to pharmacy. OARRS reviewed. [employer] Other 10-11-2023 Evaluation note* Encounter Date Diagnosis Assessment Notes Treatment Notes Treatment Clinical Notes Aug, Pain in right knee (ICD-10 - M25.561) Aug, Other chronic pain (ICD-10 - G89.29) Aug, Pain in left knee (ICD-10 - M25.562) [employer] Other 03-31-2023 Evaluation note* Encounter Date Diagnosis Assessment Notes Treatment Notes Treatment Clinical Notes Jan, Nausea & vomiting (ICD-10 - R11.2) Jan, Pain in right knee (ICD-10 - M25.561) Jan, Other chronic pain (ICD-10 - G89.29) Jan, Pain in left knee (ICD-10 - M25.562) [employer] Other 03-31-2023 Evaluation note* Encounter Date Diagnosis Assessment Notes Treatment Notes Treatment Clinical Notes Jan, Nausea & vomiting (ICD-10 - R11.2) chronic problem - requesting refill on Zofran Jan, Pain in right knee (ICD-10 - M25.561) Jan, Other chronic pain (ICD-10 - G89.29) Jan, Pain in left knee (ICD-10 - M25.562) [employer] Other 03-01-2023 Evaluation note* Encounter Date Diagnosis [...] She would prefer to stay close to [place]. Our office is working to get her referral to pain management near [place]. [employer] Other 01-31-2023 Evaluation note* Encounter Date Diagnosis Assessment Notes Treatment Notes Treatment Clinical Notes Nov, Lumbar pain (ICD-10 - M54.50) [employer] Other 01-13-2023 Evaluation note* Encounter Date Diagnosis Assessment Notes Treatment Notes Treatment Clinical Notes Nov, Low back pain, unspecified back pain laterality, unspecified chronicity, unspecified whether sciatica present (ICD-10 - M54.50) [employer] Other evaluation noteNo assessment information available [facility] Work Phone: Evaluation noteNo InformationNort [employer] Other evaluation [employer] Other Evaluation note* Diagnosis Supraventricular tachycardia by ECG- Primary Mixed hyperlipidemia Palpitations Class II obesity documented in this encounter [facility] Work Phone: Evaluation note* Diagnosis Onset Date Resolution Status Fatigue acute Hyperlipidemia acute Lumbar radiculopathy, chronic acute Medicare annual wellness visit, subsequent acute SVT (supraventricular tachycardia) acute [facility] Work Phone: Evaluation note* Diagnosis Onset Date Resolution Status Fatigue acute Hyperlipidemia acute Lumbar radiculopathy, chronic acute Medicare annual wellness visit, subsequent acute SVT (supraventricular tachycardia) acute Lumbar radiculopathy, chronic acute [facility] Work Phone: History general Narrative [...] childbirth Hospitalization History hysterectomy Hospitalization History pancreatitis [facility] [employer] Other [facility] - [facility] Other Reason for referral (narrative)* Consultation (Routine) - Authorized Specialty Diagnoses / Procedures Referred By Contac t Referred To Contact Cardiology Diagnoses Supraventricular tachycardia by ECG Procedures Follow Up In Cardiology Iban Lu MD [address] [facility] [address], [address] [address] Iban Lu MD [address] [facility], [email or web address] [address] [place] [address] Referral ID Status Reason Start Date Expiration Date V isits Requested Visits Authorized [id number] Authorized 12/09/2023 12/08/2024 1 1 [facility] Work Phone: Reason for visit NarrativePain Medicine [facility] Other Summary Purpose Family History Unknown Family [...] Time Advance Directives No March 24 3:29pm Advance Directive Response Recorded Date/ Time Advance Directives No March 24 4:29pm Procedure Findings Note Patient: ADRIANA DINERO I [...] will be scheduled * Iban Lu MD, [facility] * ADRIANA DINERO is being [...] and provided the patient with 2 local 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 * ASSESSMENT AND PLAN: * [...] will be scheduled * Iban Lu MD, [facility] Chief Complaint and Reason for Visit Chief Complaint xray Chief Complaint Swollen Face, [place]- [phone] Medicare Wellness Reason for Visit Fatigue Hyperlipidemia Lumbar radiculopathy, chronic Medicare annual wellness visit, subsequent SVT (supraventricular tachycardia) Chief Complaint Medicare Wellness Amb Documentation pulled [phone] knee injections Reason for Visit Fatigue Hyperlipidemia Lumbar radiculopathy, chronic Medicare annual wellness visit, subsequent SVT (supraventricular tachycardia) Lumbar radiculopathy, chronic Reason for Referral Reason 01/21/23 Evaluate and Treat Chronic Pain Diagnosis 1 Chronic pain disorde r (G89.4) Diagnosis 2 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) Diagnosis 3 Other chronic pain ( G89.29) Diagnosis 4 Low back pain, unspe cified (M54.50) Referral Organization [facility] urosurgery Referring Provider First Name Leeann Referring Provider Last Name Mariano Referring Provider Specialty Neurologica l Surgery Referred Organization [facility] Referred Provider Albertina Oconnell [address] [place] [place] Referred Provider Specialty Pain Medicin e Referral Priority Routine Referral Appointment Date 2023-01-21 General Notes Klaudia Golden 023 09:03:40 AM >Received today and waiting for office notes to be locked before sending referral [facility] 07:37:06 AM >[facility] 01/08[facility]2023 09:26:41 AM >Referral was refax to the correct office with their form Trini Suazo 01/08/2023 02:11:33 PM >received letter, pt has appt scheduled for 01/21/2023 Clinical Notes Phone: Reason 01/08/23 @ 10:00am Evaluate and Treat Hip Pain Diagnosis 1 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 Orth[facility] Referred Provider Samuel Chatman II Referred Address [address] [place],[address] Referred Provider Specialty Orthopaedic Surgery Referral Priority Routine Referral Appointment Date 2023-01-08 General Notes Klaudia Golden 023 10:20:34 AM >Received today and sent P2P [facility] 01/01/2023 12:05:35 PM >[facility] was scheduled [facility] 01/15/2023 09:30:10 AM >Office notes not locked yet [facility][1] 01/16/2023 08:43:03 AM >Sent telephone encounter to referring physician to let them know that the consult letter is ready for their review Reason DECLINED lumbar an d knee pain Diagnosis 1 Lumbar pain (M54.50) Referral Organization [facility] Referring Provider First Name Toby Referring Provider Last Name Mariano Referring Provider Specialty Family Medi cine Referred Organization [facility] Referred Provider Paddy De Los Santos Referred Address [address] [place],[address] Referred Provider Specialty Rheumatology Referral Priority Routine [...] section and content) DATE CREATED AUTHOR 09/23/2019 [facility] DATE CREATED AUTHOR AUTHOR'S ORGANIZ ATION 11/04/2019 [facility] DATE CREATED AUTHOR AUTHOR'S ORGANIZ ATION 05/31/[address] [facility] DATE CREATED AUTHOR AUTHOR'S ORGANIZ ATION 12/06/2020 [facility] DATE CREATED AUTHOR AUTHOR'S ORGANIZ ATION 04/21/[address] [facility] DATE CREATED AUTHOR AUTHOR'S ORGANIZ ATION 12/10/2022 [employer] DATE CREATED AUTHOR AUTHOR'S ORGANIZ ATION 01/10/2023 [facility] DATE CREATED AUTHOR AUTHOR'S ORGANIZ ATION 01/17/2023 [facility] DATE CREATED AUTHOR AUTHOR'S ORGANIZ ATION 03/18/2023 [facility] DATE CREATED AUTHOR AUTHOR'S ORGANIZ ATION 06/09/2023 [facility] DATE CREATED AUTHOR AUTHOR'S ORGANIZ ATION 12/12/2023 [facility] Chief Ultrasound Technologist Teams (unrecognized sec tion and content) Team Status: Inactive Member Role Status Dates Toby Quintana MD Primary Care Provider Active Leeann Quintana Attending Provider Active Team Status: Active Member Role Status Dates Toby Quintana MD Primary Care Provider Active Team Status: Inactive Member Role Status Dates Toby Quintana MD Primary Care Provider Active Samuel Chatman II, MD Attending Provider Active Warranty Coordinator Relationship Specialty Start Date End Date Toby Quintana MD PCP - General 08/25/19 Team Status: Inactive Member Role Status Dates Toby Quintana MD Attending Provider Active St art: October 21, 2023 End: October 21, 2023 Team Status: Inactive Member Role Status Dates Toby Quintana MD Primary Care Provide r, Attending Provider Active Start: December 30, 2023 End: December 30, 2023 Team Status: Active Member Role Status Dates Iban Lu MD Specialist Active Evin Byers MD Specialist Active Toby Quintana MD Primary Care Provider Active Team Status: Active Member Role Status Dates Toby Quintana MD Primary Care Provider Active Start: January 05, 2024 KHADRA Campa Attending Provider Active Start : January 05, 2024 Team Status: Active Member Role Status Dates Toby Quintana MD Primary Care Provide r, Attending Provider Active Start: January 14, 2024 Team Status: Inactive Member Role Status Dates Toby Quintana MD Primary Care Provide r, Attending Provider Active Start: January 19, 2024 End: January 19, 2024 Team Status: Inactive Member Role Status Dates Toby Quintana MD Primary Care Provide r, Attending Provider Active Start: February 10, 2024 End: February 10, 2024 Goals (unrecognized section and content) Goals may be documented in a n alternate sectionNo InformationNo InformationNo InformationGoals may be documented in an alternate sectionNo InformationNo InformationNo InformationNo InformationNo InformationNo InformationNo InformationNo InformationNo InformationNo InformationNo InformationNo InformationNo InformationNo InformationNo InformationNo InformationNo InformationNo InformationNo InformationNo InformationNo InformationNo InformationNo InformationNo InformationNo InformationNo InformationNo InformationNo InformationNo InformationNo InformationNo InformationNo InformationNo InformationGoals may be documented in an alternate sectionGoals may be documented in an alternate section [...] BE BASED ON THE PRIMARY CLINICAL RECORDS. [facility]. provides no warranty or guarantee of the accuracy or completeness of information in this document.
== END 2024-02-13 09:18 | disposition home or self-care (01) ==
LOC: EC 09:17
PROVIDERS: PCP Family Medicine; Visit Provider Orthopaedic Surgery Orthopaedic Surgery of the Spine
DX: M54.50 Low back pain, unspecified (principal); M51.36 Other intervertebral disc degeneration, lumbar region
CPT/HCPCS: 72110

== ENCOUNTER 2024-02-23 06:39 | Outpatient (OUT) | payer MEDICARE, SELFPAY ==
--- OUTSIDE RECORDS SUMMARY | 2024-02-23 06:43 | XMS_ITS | CCD ---
Author Organization [facility] Care Team Providers Care Regulatory Product Manager Name Role Phone Toby Quintana Unavailable Unavailable Unavailable MD Toby Quintana Primary Care Provider BladesLeeann Attending Provider Unavailable Unavailable Blades, Leeann Unavailable [...] Unavailable QUINTANA, DR TOBY Schofield Admitting Unavailable CROWELL, DR CAITLYN Noe Consulting Unavailable QUINTANA, DR [...] Chatman II Attending Provider BladesLeeann Admitting Unavailable Blades, Leeann Attending Toby Pham Primary Care Unavailable Samuel Chatman II Admitting UnavailSamuel Dubois II Attending Toby Armijo Primary Care Unavailable Samuel Chatman II Unavailable ZEESHAN, Dr. EVIN Henning Attending Toby Pham Primary Care Unavaildidier Quintana, Dr. Toby Feliz Primary Care Unav ailable Lore, Dr. Iban Penn Referring Nanda Quintana, Dr. Toby Feliz Primary Care Unav ailable Lore, Dr. Iban Penn Attending Toby Romano MD Primary Care Provider [phone] BIAN LU Attending TOBY Pham Primary Care Unavailable Allergies Allergy Classification Reported Allergen(s) Allergy Type Date of Onset Reaction(s) Facility (6 sources) Sulfamethoxazole; Translations: [sulfa] Drug Allergy Rash, Swelling [place] [id number] MD Work Phone: (7 sources) Sulfonamides (Antibiotic); Translations: [Sulfa (Sulfonamide Antibiotics)] Allergy to substance 04-08-20 19 Hives, Rash, Swelling [facility] (20 sources) Sulfacetamide / Sulfur Drug Allergy rash [facility] Other (1 source) Morphine Drug Allergy [facility] (1 source) Quinolones (Antibiotic) Drug allergy (disorder) [facility] (2 sources) Sulfonamides (Antibiotic) Drug allergy (disorder) 08-06-20 13 [facility] (12 sources) Acetaminophen / oxyCODONE Drug Allergy 07-28-20 13 Unknown [facility] Other (12 sources) Meperidine Drug Allergy 07-28-20 13 Unknown [facility] Other (13 sources) Quinolones Drug allergy 07-28-20 13 Comment:Fluorq rennolones [employer] [facility] INTER[employer]i[facility] Other (13 sources) sulfADIAZINE Drug Allergy Unknown [facility] Other (13 sources) Substance with sulfonamide structure and antibacterial mechanism of action (substance) Drug allergy 07-28-20 13 Unknown [facility] Other (13 sources) Statins Depletion *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 Propensity to adverse reactions 07-28-20 13 Unknown [facility] Other (4 sources) Allergies Reconciled Propensity to adverse reactions Unknown [facility] Other (4 sources) patient allergy list reviewed by nurse or physicia Propensity to adverse reactions 07-15-20 Comment:Done [facility] Other (1 source) Acetaminophen / oxyCODONE Drug Allergy 07-28-20 13 Unknown [facility] Other (1 source) Meperidine Drug Allergy 07-28-20 13 Unknown [facility] Other (2 sources) Sulfacetamide Drug Allergy 12-30-19 24 [facility] Medications Current Medications Medication Drug Class(es) Dates Sig (Normalized) Sig (Original) acetaminophen 325 mg / HYDROcodone bitartrate 5 mg oral tablet (20 sources) Opioid Agonist Start: 08-31-2021 End: 12-09-2023 take 1 tablet by mouth every four hours as needed HYDROcodone-acetami nophen ([place]) 5-325 mg tablet Take 1 tablet by [...] puffs Inhalation Twice a day Active omega 6-akk-yqp-fish oil 360 mg-108 mg- 180 mg-1,200 mg capsule (1 source) take 1 capsule by mouth once daily omega 7-vje-pax-fish oil 360 mg-108 mg- 180 mg-1,200 mg [...] Sep, Active take 1 capsule by mo [facility] every six hours as needed oxyCODONE [...] 09-12-2014 Episodic Other aftercare (1 source) 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; Translations: [OTH [facility] CURRENT DRUG THERAPY] Onset: 07-23-2022 Episodic Other [...] aPTT Coag (PPP) [Time] 23.5 s 22.3-36.2 [facility] Basophils Auto (Bld) [#/Vol] on 01-14-2024 Basophils (Bld) [#/Vol] 0.1 10 3/uL 0.0-0.1 [facility] Basophils/100 WBC Auto (Bld) on 01-14-2024 Basophils/100 WBC (Bld) 0.5 % 0.2-2.0 [facility] Eosinophils/100 WBC Auto (Bl d)on 01-14-2024 Eosinophils/100 WBC (Bld) 1.3 % 0.9-7.0 [facility] Erythrocyte distribution wid th Auto (RBC) [Ratio]on 01-14-2024 Erythrocyte distribution width (RBC) [Ratio] 13.6 % 11.0-15.0 [facility] Estimated glomerular filtrat ion rate (GFR) non- Americanon 01-14-2024 GFR/1.73 sq M.predicted among non-blacks MDRD (S/P/Bld) [Vol rate/Area] mL/min/{1.73_m2} >=60 [facility] Fibrin D-dimer [Presence] in Platelet poor plasma by Latex agglutinationon 01-14-2024 Fibrin D-dimer LA Ql (PPP) 0.78 mg/L FEU <=0.59 [facility] Comment on above: RESULTS CALLED TO EARL [...] on 01-14-2024 Globulin (S) [Mass/Vol] 3.9 g/dL [facility] Hematocrit Auto (Bld) [Volum e fraction]on 01-14-2024 Hematocrit (Bld) [Volume fraction] 44.4 % 36.0-48.0 [facility] Hemoglobin [Mass/volume] in Bloodon 01-14-2024 Hemoglobin (Bld) [Mass/Vol] 14.1 g/dL 12.0-16.0 [facility] INR in Platelet poor plasma by Coagulation assayon 01-14-2024 INR Coag (PPP) [Relative time] {INR} [facility] Comment on above: DESIRED INR:2.0-3.0 CONDITIONS NOT LISTED BELOW2.5-3.5 FOR PROSTHETIC HEART VALVE REPLACEMENT2.5-3.5 RECURRENT THROMBOSIS Laboratory - Chemistry and C hemistry - challengeon 01-14-2024 Albumin [Mass/Vol] 2.9 g/dL 3.4-5.0 [facility] ALP [Catalytic activity/Vol] 126 U/L 46-116 [facility] ALT [Catalytic activity/Vol] 36 U/L 14-59 [facility] AST [Catalytic activity/Vol] 24 U/L 15-37 [facility] Bilirubin [Mass/Vol] 0.4 mg/dL 0.2-1.0 [facility] Calcium [Mass/Vol] 8.7 mg/dL 8.5-10.1 [facility] Chloride [Moles/Vol] 109 mmol/L 98-107 [facility] CO2 [Moles/Vol] 30.5 mmol/L 21.0-32.0 [facility] Creatinine [Mass/Vol] 0.77 mg/dL 0.55-1.02 [facility] GFR/1.73 sq M.predicted MDRD (S/P/Bld) [Vol rate/Area] mL/min/{1.73_m2} >=60 [facility] Glucose [Mass/Vol] 108 mg/dL 74-106 [facility] Natriuretic peptide B (Bld) [Mass/Vol] 210.0 pg/mL <=900.0 [facility] Potassium [Moles/Vol] 4.0 mmol/L 3.5-5.1 [facility] Protein [Mass/Vol] 6.8 g/dL 6.4-8.2 [facility] Sodium [Moles/Vol] 141 mmol/L 136-145 [facility] Urea nitrogen [Mass/Vol] 10.0 mg/dL 7.0-18.0 [facility] Urea nitrogen/Creatinine [Mass ratio] 13.0 mg/mg [facility] Laboratory - Hematology and Cell countson 01-14-2024 Immature granulocytes/100 WBC (Bld) 0.3 % 0.0-0.5 [facility] Laboratory - Microbiology an d Antimicrobial susceptibilityon 01-14-2024 SARS-CoV-2 (COVID-19) RNA DAVID+probe Ql (Unsp spec) Negative NEGATIVE [facility] Comment on above: This test has not [...] Auto (Bld) [#/Vol] 9.2 10 3/uL 4.0-11.0 [facility] Lymphocytes Auto (Bld) [#/Vo l]on 01-14-2024 Lymphocytes (Bld) [#/Vol] 1.9 10 3/uL 1.2-3.8 [facility] Lymphocytes/100 WBC Auto (Bl d)on 01-14-2024 Lymphocytes/100 WBC (Bld) 20.3 % 20.5-60.0 [facility] MCH Auto (RBC) [Entitic mass ]on 01-14-2024 MCH (RBC) [Entitic mass] 28.4 pg 26.7-34.0 [facility] MCHC Auto (RBC) [Mass/Vol]on 01-14-2024 MCHC (RBC) [Mass/Vol] 31.8 g/dL 29.9-35.2 [facility] MCV Auto (RBC) [Entitic vol] on 01-14-2024 MCV (RBC) [Entitic vol] 89.5 fL 81.0-99.0 [facility] Monocytes Auto (Bld) [#/Vol] on 01-14-2024 Monocytes (Bld) [#/Vol] 0.8 10 3/uL 0.3-0.8 [facility] Monocytes/100 WBC Auto (Bld) on 01-14-2024 Monocytes/100 WBC (Bld) 8.5 % 1.7-12.0 [facility] Neutrophils Auto (Bld) [#/Vo l]on 01-14-2024 Neutrophils (Bld) [#/Vol] 6.3 10 3/uL 1.4-6.5 [facility] Neutrophils/100 WBC Auto (Bl d)on 01-14-2024 Neutrophils/100 WBC (Bld) 69.1 % 43.0-75.0 [facility] No Panel Informationon 01-13 Troponin I High Sensitivity 6.8 pg/mL 4.0-51.3 [facility] Comment on above: CUT-OFF POINTS HAVE BEEN [...] INFORMATION. Bedside Influenza Type A Antigen Negative [facility] Comment on above: Negative for Flu A p rotein antigen. Infection due to Flu Acannot be ruled out. Flu A antigen in the sample may bebelow the detection limit of the test. Bedside Influenza Type B Antigen Negative [facility] Comment on above: Negative for Flu B p rotein antigen. Infection due to Flu Bcannot be ruled out. Flu B antigen in the sample may bebelow the detection limit of the test. Eosinophils # (Auto) 0.1 10 3/uL 0.0-0.7 [facility] Immature Granulocyte # (Auto) 0.03 10 3/uL 0.00-0.03 [facility] Platelet mean volume Auto (B ld) [Entitic vol]on 01-14-2024 Platelet mean volume (Bld) [Entitic vol] 9.4 fL 9.5-13.5 [facility] Platelets Auto (Bld) [#/Vol] on 01-14-2024 Platelets (Bld) [#/Vol] 238 10 3/uL 150-450 [facility] Prothrombin time (PT)on PT Coag (PPP) [Time] 9.3 s 9.0-11.6 [facility] RBC Auto (Bld) [#/Vol]on RBC (Bld) [#/Vol] 4.96 10 6/uL 4.20-5.40 [facility] Serum or plasma albumin/glob ulin mass ratioon 01-14-2024 Albumin/Globulin [Mass ratio] 0.7 {ratio} [facility] Serum or plasma anion gap de terminationon 01-14-2024 Anion gap [Moles/Vol] 5.5 mmol/L [facility] Basophils Auto (Bld) [#/Vol] on 12-30-2023 Basophils (Bld) [#/Vol] 0.1 10 3/uL 0.0-0.1 [facility] Basophils/100 WBC Auto (Bld) on 12-30-2023 Basophils/100 WBC (Bld) 0.6 % 0.2-2.0 [facility] Cholesterol in LDL Calc [Mas s/Vol]on 12-30-2023 Cholesterol in LDL [Mass/Vol] 149.0 mg/dL [facility] Comment on above: <100 mg/dl [id number] 0-129 mg/dl NEAR OR ABOVE [id number] mg/dl BORDERLINE NPRU908-139 mg/dl HIGH>190 mg/dl VERY HIGH Cholesterol in VLDL Calc [Ma ss/Vol]on 12-30-2023 Cholesterol in VLDL [Mass/Vol] 18.6 mg/dL [facility] Eosinophils/100 WBC Auto (Bl d)on 12-30-2023 Eosinophils/100 WBC (Bld) 1.8 % 0.9-7.0 [facility] Erythrocyte distribution wid th Auto (RBC) [Ratio]on 12-30-2023 Erythrocyte distribution width (RBC) [Ratio] 13.2 % 11.0-15.0 [facility] Estimated glomerular filtrat ion rate (GFR) non- Americanon 12-30-2023 GFR/1.73 sq M.predicted among non-blacks MDRD (S/P/Bld) [Vol rate/Area] mL/min/{1.73_m2} >=60 [facility] Globulin Calc (S) [Mass/Vol] on 12-30-2023 Globulin (S) [Mass/Vol] 3.8 g/dL [facility] Hematocrit Auto (Bld) [Volum e fraction]on 12-30-2023 Hematocrit (Bld) [Volume fraction] 46.8 % 36.0-48.0 [facility] Hemoglobin [Mass/volume] in Bloodon 12-30-2023 Hemoglobin (Bld) [Mass/Vol] 14.7 g/dL 12.0-16.0 [facility] Laboratory - Chemistry and C hemistry - challengeon 12-30-2023 Albumin [Mass/Vol] 3.0 g/dL 3.4-5.0 [facility] ALP [Catalytic activity/Vol] 88 U/L 46-116 [facility] ALT [Catalytic activity/Vol] 23 U/L 14-59 [facility] AST [Catalytic activity/Vol] 20 U/L 15-37 [facility] Bilirubin [Mass/Vol] 0.5 mg/dL 0.2-1.0 [facility] Calcium [Mass/Vol] 9.2 mg/dL 8.5-10.1 [facility] Chloride [Moles/Vol] 107 mmol/L 98-107 [facility] Cholesterol [Mass/Vol] 224 mg/dL <=200 [facility] Cholesterol in HDL [Mass/Vol] 57 mg/dL 40-60 [facility] Comment on above: > or =60 mg/dl - LOW CARDIOVASCULAR RISK<40 mg/dl - HIGH CARDIOVASCULAR RISK CO2 [Moles/Vol] 31.1 mmol/L 21.0-32.0 [facility] Creatinine [Mass/Vol] 0.72 mg/dL 0.55-1.02 [facility] GFR/1.73 sq M.predicted MDRD (S/P/Bld) [Vol rate/Area] mL/min/{1.73_m2} >=60 [facility] Glucose [Mass/Vol] 100 mg/dL 74-106 [facility] Potassium [Moles/Vol] 4.5 mmol/L 3.5-5.1 [facility] Protein [Mass/Vol] 6.8 g/dL 6.4-8.2 [facility] Sodium [Moles/Vol] 145 mmol/L 136-145 [facility] Triglyceride [Mass/Vol] 93 mg/dL <=150 [facility] TSH Qn 2.655 m[IU]/L 0.358-3.740 [facility] Urea nitrogen [Mass/Vol] 9.0 mg/dL 7.0-18.0 [facility] Urea nitrogen/Creatinine [Mass ratio] 12.5 mg/mg [facility] Laboratory - Hematology and Cell countson 12-30-2023 Immature granulocytes/100 WBC (Bld) 0.2 % 0.0-0.5 [facility] Leukocytes [#/volume] correc wanda for nucleated erythrocytes in Blood by Automated counon 12-30-2023 WBC corrected for nucl RBC Auto (Bld) [#/Vol] 8.7 10 3/uL 4.0-11.0 [facility] Lymphocytes Auto (Bld) [#/Vo l]on 12-30-2023 Lymphocytes (Bld) [#/Vol] 1.8 10 3/uL 1.2-3.8 [facility] Lymphocytes/100 WBC Auto (Bl d)on 12-30-2023 Lymphocytes/100 WBC (Bld) 20.4 % 20.5-60.0 [facility] MCH Auto (RBC) [Entitic mass ]on 12-30-2023 MCH (RBC) [Entitic mass] 28.6 pg 26.7-34.0 [facility] MCHC Auto (RBC) [Mass/Vol]on 12-30-2023 MCHC (RBC) [Mass/Vol] 31.4 g/dL 29.9-35.2 [facility] MCV Auto (RBC) [Entitic vol] on 12-30-2023 MCV (RBC) [Entitic vol] 91.1 fL 81.0-99.0 [facility] Monocytes Auto (Bld) [#/Vol] on 12-30-2023 Monocytes (Bld) [#/Vol] 0.7 10 3/uL 0.3-0.8 [facility] Monocytes/100 WBC Auto (Bld) on 12-30-2023 Monocytes/100 WBC (Bld) 7.5 % 1.7-12.0 [facility] Neutrophils Auto (Bld) [#/Vo l]on 12-30-2023 Neutrophils (Bld) [#/Vol] 6.0 10 3/uL 1.4-6.5 [facility] Neutrophils/100 WBC Auto (Bl d)on 12-30-2023 Neutrophils/100 WBC (Bld) 69.5 % 43.0-75.0 [facility] No Panel Informationon 12-30 Eosinophils # (Auto) 0.2 10 3/uL 0.0-0.7 [facility] Immature Granulocyte # (Auto) 0.02 10 3/uL 0.00-0.03 [facility] Platelet mean volume Auto (B ld) [Entitic vol]on 12-30-2023 Platelet mean volume (Bld) [Entitic vol] 9.3 fL 9.5-13.5 [facility] Platelets Auto (Bld) [#/Vol] on 12-30-2023 Platelets (Bld) [#/Vol] 199 10 3/uL 150-450 [facility] RBC Auto (Bld) [#/Vol]on RBC (Bld) [#/Vol] 5.14 10 6/uL 4.20-5.40 [facility] Serum or plasma albumin/glob ulin mass ratioon 12-30-2023 Albumin/Globulin [Mass ratio] 0.8 {ratio} [facility] Serum or plasma anion gap de terminationon 12-30-2023 Anion gap [Moles/Vol] 11.4 mmol/L [facility] Serum or plasma total choles terol/high density lipoprotein (HDL) cholesterol mass la 12-30-2023 Cholesterol.total/Ch olesterol in HDL [Mass ratio] 3.9 {ratio} [facility] Comment on above: 3.3 - 4.4 LOW RISK4. 4 - 7.1 AVERAGE RISK7.1 - 11.0 MODERATE RISK>11.0 HIGH RISK XR hip LT min 2V(w/wo pelvis )*on 01-08-2023 XR hip LT min 2V(w/wo pelvis)* [address] [address] XRay Report Signed Patient: Adriana Dinero I MR#: [id number] 056 : 1955 Acct:[id number] Age/Sex: 67 / F ADM Date: 01/08/23 Loc: [facility] Room: Type: [facility] Attending Dr: Samuel Chatman II, MD [...] Pop Jr., D.OOdessa01/08/2023 1:22 PM Dictation Location: [place] [address] Transcribed By: [facility] 01/08/23 1322 Dictated By: [place] Pop Jr, DO 01/08/23 1321 Signed By: 01/08/23 1322 Normal [facility] XR hip LT min 2V(w/wo pelvis)* [facility] Other XR hip LT min 2V(w/wo pelvis)* [facility] Other XR hip LT min 2V(w/wo pelvis)* [address] [place] [address] [facility] Other XR hip LT min 2V(w/wo pelvis)* [place] [address] [facility] Other XR hip LT min 2V(w/wo pelvis)* XRay Report [facility] Other XR hip LT min 2V(w/wo pelvis)* Signed [facility] Other XR hip LT min 2V(w/wo pelvis)* Patient: Adriana Dinero I MR#: [id number] [facility] Other XR hip LT min 2V(w/wo pelvis)* 056 [facility] Other XR hip LT min 2V(w/wo pelvis)* : 1955 Acct:[id number] [facility] Other XR hip LT min 2V(w/wo pelvis)* Age/Sex: 67 / F ADM Date: 01/08/23 [facility] Other XR hip LT min 2V(w/wo pelvis)* Loc: [facility] [facility] Room: Type: [facility] Other XR hip LT min 2V(w/wo pelvis)* Attending Dr: Samuel Chatman II, MD [facility] Other XR hip LT min 2V(w/wo pelvis)* Copies to: Samuel Chatman MD [facility] Other XR hip LT min 2V(w/wo pelvis)* Ordering Provider: Samuel Chatman MD [facility] Other XR hip LT min 2V(w/wo pelvis)* Date of Service: 01/08/23 [facility] Other XR hip LT min 2V(w/wo pelvis)* XR/XR hip LT min 2V(w/wo pelvis)*: Left hip pain [facility] Other XR hip LT min 2V(w/wo pelvis)* LEFT HIP - 2 views: [facility] Other XR hip LT min 2V(w/wo pelvis)* CLINICAL HISTORY: Left hip pain for months. [facility] Other XR hip LT min 2V(w/wo pelvis)* COMPARISON: Hip series 11/22/2022 [facility] Other XR hip LT min 2V(w/wo pelvis)* FINDINGS: Mild degenerative changes of both hips without acute bony process. [facility] Other XR hip LT min 2V(w/wo pelvis)* XR/XR hip LT min 2V(w/wo pelvis)* [facility] Other XR hip LT min 2V(w/wo pelvis)* IMPRESSION: [facility] Other XR hip LT min 2V(w/wo pelvis)* MILD DEGENERATIVE CHANGES OF BOTH HIPS WITHOUT ACUTE BONY PROCESS.. [facility] Other XR hip LT min 2V(w/wo pelvis)* Impression dictated by: Montana Pop Jr., D.O.01/08/2023 1:22 PM [facility] Other XR hip LT min 2V(w/wo pelvis)* Dictation Location: [place] [address] [facility] Other XR hip LT min 2V(w/wo pelvis)* Transcribed By: VALERIE 01/08/23 [facility] Other XR hip LT min 2V(w/wo pelvis)* Dictated By: Montana Pop Jr, DO 01/08/23 [facility] Other XR hip LT min 2V(w/wo pelvis)* Signed By: [facility] Other XR hip LT min 2V(w/wo pelvis)* 01/08/23 [facility] Other Office Visit (Cardiology)on 12-09-2022 Follow-up visit [...] and provided 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 ASSESSMENT AND PLAN: 1. Supraventricular tachycardia, on [...] follow-up will be scheduled Iban Lu MD, [facility] Surgical History Problems History of [...] Recorded: 09Dec2022 01:25PM Heart Rate78, L Radial Ekhcouwi768, LUE, Sitting Eosgwmtrg21, LUE, Sitting Height5 ft 6 in Avklmv285 lb BMI Hsjioggvdr47.03 kg/m2 BSA Calculated2.19 Tobacco Useb) No PHQ-2 [...] more fall s in the last year -[facility] 250 DO Work Phone: Tobacco use status [facility] b) No [facility] 250 DO Work Phone: Tobacco Screening. Yes [facility] 250 DO Work Phone: XR hip BI w [id number] 11-22-19 XR hip BI w [id number] [facility] [place] [address] [place] [id number] XRay Report Signed Patient: Adriana Dinero I MR#: [id number] 056 : 1955 Acct:[id number] Age/Sex: 67 / F ADM Date: 11/22/22 Loc: XD Room: Type: [facility] Attending Dr: Leeann Quintana Copies to: [...] Pop Jr., D.O.11/22/2022 1:12 PM Dictation Location: [place] [address] Transcribed By: [facility] 11/22/22 131 Dictated By: Montana Pop Jr, DO 11/22/22 1311 Signed By: 11/22/[address] [facility] XR lumbar spine AP/LAT/FLX/E XTon 11-22-2022 XR lumbar spine AP/LAT/FLX/EXT [facility] [place] [address] XRay Report Signed Patient: Adriana Dinero I MR#: [id number] 056 : 1955 Acct:[id number] Age/Sex: 67 / F ADM Date: 11/22/22 [facility]: [facility]D [facility]: Leeann Quintana Copies to: Leeann [...] Pop Jr., DOdessaOOdessa11/22/2022 1:11 PM Dictation Location: [place] [address] Transcribed By: [facility] 11/22/22 1311 Dictated By: Montana Pop Jr, DO 11/22/22 1309 Signed By: 11/22/22 1311 Normal [facility] CREATININEon 10-04-2022 Creatinine [Mass/Vol] 0.75 mg/dL Normal 0.55-1.02 [facility] Comment on above: Performed By: #### C CARLOS #### [facility] [address] [place] [address] [address] Henrietta Zavala EGFR-AF GUATEMALAN >60 Normal >=60 [facility] Comment on above: Performed By: #### C CARLOS #### [facility] [address] [place] [address] [address] Henrietta Zavala EGFR-NON AF GUATEMALAN >60 Normal >=60 [facility] Comment on above: Performed By: #### C CARLOS #### [facility] [address] [place] [address] [address] Henrietta Zavala MRI GUILLE Hinkle CONon [...] SHALA OMER Date: 2022-10-04 11:19 Normal [facility]11 SARS-CoV-2 (COVID-19) RNA DAVID+probe Ql (Unsp spec) Not detected Normal NOT DETECTED [facility] Comment on above: Result Comment: This test is not yet approved or cleared by the [place] FDA. When there are no FDA-approved or cleared tests available, and other criteria are met, FDA can make tests available under an emergency access mechanism called an Emergency Use Authorization (EUA). The EUA for this test is supported by the [employer] Specialist of Health and Human Service's (HHS's) declaration [...] consistent with SARS-CoV-2. Performed By: #### C [facility] #### [facility] [address] [place] [address] Dr. Henrietta Zavala XR HIPS JI 3_4V [...] CAITLYN CABRERA Date: 2022-04-15 07:00 Normal [facility] XR TSPINE 3 VIEWSon 04-15-20 XR TSPINE [...] CAITLYN CABRERA Date: 2022-04-15 07:03 Normal [facility] CBC AUTO DIFFon 04-12-2022 BASO # 0.1 103/ul Normal 0.0-0.1 [facility] Comment on above: Performed By: #### C BC #### [facility] [address] [place] [address] Dr. Henrietta Zavala Basophils/100 WBC (Bld) 0.4 % Normal 0.2-2.0 [facility] Comment on above: Performed By: #### C BC #### [facility] [address] [place] [address] Dr. Henrietta Zvaala EO # 0.1 103/ul Normal 0.0-0.7 [facility] Comment on above: Performed By: #### C BC #### [facility] [address] [place] [address] Dr. Henrietta Zavala Eosinophils/100 WBC (Bld) 0.4 % Critically low 0.9-7.0 [facility] Comment on above: Performed By: #### C BC #### [facility] [address] [place] [address] Dr. Henrietta Zavala Erythrocyte distribution width (RBC) [Ratio] 14.1 % Normal 11.0-15.0 [facility] Comment on above: Performed By: #### C BC #### [facility] [address] [place] [address] Dr. Henrietta Zavala Hematocrit (Bld) [Volume fraction] 44.9 % Normal 36.0-48.0 [facility] Comment on above: Performed By: #### C BC #### [facility] [address] [place] [address] Dr. Henrietta Zavala Hemoglobin (Bld) [Mass/Vol] 14.2 g/dL Normal 12.0-16.0 [facility] Comment on above: Performed By: #### C BC #### [facility] [address] [place] [address] Dr. Henrietta Zavala IG # 0.06 10e3/ul Critically high 0.00-0.03 [facility] Comment on above: Performed By: #### C BC #### [facility] [address] [place] [address] Dr. Henrietta Zavala IG % 0.5 % Normal 0.0-0.5 [facility] Comment on above: Performed By: #### C BC #### [facility] [address] [place] [address] Dr. Henrietta Zavala LYMPH # 2.2 103/ul Normal 1.2-3.8 [facility] Comment on above: Performed By: #### C BC #### [facility] [address] [place] [address] Dr. Henrietta Zavala Lymphocytes/100 WBC (Bld) 19.4 % Critically low 20.5-60.0 [facility] [facility] Comment on above: Performed By: #### C BC #### [facility] [address] [place] [address] Dr. Henrietta Zavala MANUAL DIFF REQ NO Normal [facility] Comment on above: Performed By: #### C BC #### [facility] [address] [place] [address] Dr. Henrietta Zavala MCH (RBC) [Entitic mass] 27.5 pg Normal 26.7-34.0 [facility] Comment on above: Performed By: #### C BC #### [facility] [address] [place] [address] Dr. Henrietta Zavala MCHC (RBC) [Mass/Vol] 31.6 g/dL Normal 29.9-35.2 [facility] Comment on above: Performed By: #### C BC #### [facility] [address] [place] [address] Dr. Henrietta Zavala MCV (RBC) [Entitic vol] 86.8 fL Normal 81.0-99.0 [facility] Comment on above: Performed By: #### C BC #### [facility] [address] [address] [address] Henrietta Zavala MONO # 0.9 103/ul Critically high 0.3-0.8 [facility] Comment on above: Performed By: #### C BC #### [facility] [address] [address] [address] Henrietta Zavala Monocytes/100 WBC (Bld) 7.9 % Normal 1.7-12.0 [facility] Comment on above: Performed By: #### C BC #### [facility] [address] [place] [address] Dr. Henrietta Zavala NEUT # 8.1 103/ul Critically high 1.4-6.5 [facility] Comment on above: Performed By: #### C BC #### [facility] [address] [place] [address] Dr. Henrietta Zavala Neutrophils/100 WBC (Bld) 71.4 % Normal 43.0-75.0 [facility] Comment on above: Performed By: #### C BC #### [facility] [address] [place] [address] Dr. Henrietta Zavala Platelet mean volume (Bld) [Entitic vol] 9.7 fL Normal 9.5-13.5 [facility] Comment on above: Performed By: #### C BC #### [facility] [address] [place] [address] Dr. Henrietta Zavala PLT 284 103/ul Normal 150-450 [facility] Comment on above: Performed By: #### C BC #### [facility] [address] [place] [address] Dr. Henrietta Zavala RBC 5.17 106/ul Normal 4.20-5.40 [facility] Comment on above: Performed By: #### C BC #### [facility] [address] [place] [address] Dr. Henrietta Zavala WBC 11.3 103/ul Critically high 4.0-11.[address] [facility] Comment on above: Performed By: #### C BC #### [facility] [address] [place], [place] [id number] Dr. Henrietta Zavala LIPID PROFILEon 04-12-2022 CHOL-HDL RATIO NORM SEE BELOW Normal [facility] Comment on above: Result Comment: 3.3 - 4.4 LOW RISK 4.4 - 7.1 AVERAGE RISK 7.1 - 11.0 MODERATE RISK >11.0 HIGH RISK Performed By: #### C MP, LIPID #### [facility] [address] [address] [address] Henrietta Zavala Cholesterol [Mass/Vol] 235 mg/dL Critically high <=200 [facility] Comment on above: Performed By: #### C MP, LIPID #### [facility] [address] [address] [address] Henrietta Zavala Cholesterol in HDL [Mass/Vol] 47 mg/dL Normal 40-60 [facility] Comment on above: Performed By: #### C MP, LIPID #### [facility] [address] [address] [address] Henrietta Zavala Cholesterol in LDL [Mass/Vol] 160.8 mg/dL Normal [facility] Comment on above: Performed By: #### C MP, LIPID #### [facility] [address] [address] [address] Henrietta Zavala Cholesterol.total/Ch olesterol in HDL [Mass ratio] 5.0 {ratio} Normal [facility] Comment on above: Performed By: #### C MP, LIPID #### [facility] [address] [address] [address] Henrietta Zavala HDL NORMAL > or = 60 mg/dl - LO W CARDIOVASCULAR RISK <40 mg/dl - HIGH CARDIOVASCULAR RISK Normal [facility] Comment on above: Performed By: #### C MP, LIPID #### [facility] [address] [address] [address] Henrietta Zavala LDL CALC NORMAL SEE BELOW Normal [facility] Comment on above: Result Comment: <100 mg/dl OPTIMAL 100 - 129 mg/dl NEAR OR ABOVE OPTIMAL 130 - 159 mg/dl BORDERLINE HIGH 160 - 189 mg/dl HIGH >190 mg/dl VERY HIGH Performed By: #### C MP, LIPID #### [facility] [address] [place] [address] Dr. Henrietta Zavala Triglyceride [Mass/Vol] 136 mg/dL Normal <=150 [facility] Comment on above: Performed By: #### C MP, LIPID #### [facility] [address] [place] [address] Dr. Henrietta Zavala VLDL CALC 27.2 mg/dL Normal [facility] Comment on above: Performed By: #### C MP, LIPID #### [facility] [address] [address] [address] Henrietta Zavala PROF 14(COMP METB)on 022 Albumin [Mass/Vol] 3.2 g/dL Critically low 3.4-5.0 [facility] Comment on above: Performed By: #### C MP, LIPID #### [facility] [address] [place] [address] Dr. Henrietta Zavala Albumin/Globulin [Mass ratio] 0.8 {ratio} Normal [facility] Comment on above: Performed By: #### C MP, LIPID #### [facility] [address] [place] [address] Dr. Henrietta Zavala ALP [Catalytic activity/Vol] 127 U/L Critically high 46-116 [facility] Comment on above: Performed By: #### C MP, LIPID #### [facility] [address] [place] [address] Dr. Henrietta Zavala ALT [Catalytic activity/Vol] 55 U/L Normal 14-59 [facility] Comment on above: Performed By: #### C MP, LIPID #### [facility] [address] [place] [address] Dr. Henrietta Zavala Anion gap [Moles/Vol] 13.6 mmol/L Normal [facility] Comment on above: Performed By: #### C MP, LIPID #### [facility] [address] [place] [address] Dr. Henrietta Zavala AST [Catalytic activity/Vol] 24 U/L Normal 15-37 [facility] Comment on above: Performed By: #### C MP, LIPID #### [facility] [address] [place] [address] Dr. Henrietta Zavala Bilirubin [Mass/Vol] 0.3 mg/dL Normal 0.2-1.0 [facility] Comment on above: Performed By: #### C MP, LIPID #### [facility] [address] [place] [address] Dr. Henrietta Zavala Calcium [Mass/Vol] 8.8 mg/dL Normal 8.5-10.1 [facility] Comment on above: Performed By: #### C MP, LIPID #### [facility] [address] [place] [address] Dr. Henrietta Zavala Chloride [Moles/Vol] 107 mmol/L Normal 98-107 [facility] Comment on above: Performed By: #### C MP, LIPID #### [facility] [address] [place] [address] Dr. Henrietta Zavala CO2 [Moles/Vol] 25.6 mmol/L Normal 21.0-32.0 [facility] Comment on above: Performed By: #### C MP, LIPID #### [facility] [address] [place] [address] Dr. Henrietta Zavala Creatinine [Mass/Vol] 0.77 mg/dL Normal 0.55-1.02 [facility] Comment on above: Performed By: #### C MP, LIPID #### [facility] [address] [place] [address] Dr. Henrietta Zavala EGFR-AF GUATEMALAN >60 Normal >=60 [facility] Comment on above: Performed By: #### C MP, LIPID #### [facility] [address] [place] [address] Dr. Henrietta Zavala EGFR-NON AF GUATEMALAN >60 Normal >=60 [facility] Comment on above: Performed By: #### C MP, LIPID #### [facility] [address] [place] [address] Dr. Henrietta Zavala Globulin (S) [Mass/Vol] 3.8 g/dL Normal [facility] Comment on above: Performed By: #### C MP, LIPID #### [facility] [address] [place] [address] Dr. Henrietta Zavala Glucose [Mass/Vol] 90 mg/dL Normal 74-106 [facility] Comment on above: Performed By: #### C MP, LIPID #### [facility] [address] [address] [address] Henrietta Zavala Potassium [Moles/Vol] 4.2 mmol/L Normal 3.5-5.1 [facility] Comment on above: Performed By: #### C MP, LIPID #### [facility] [address] [address] [address] Henrietta Zavala Protein [Mass/Vol] 7.0 g/dL Normal 6.4-8.2 [facility] Comment on above: Performed By: #### C MP, LIPID #### [facility] [address] [place] [address] Dr. Henrietta Zavala Sodium [Moles/Vol] 142 mmol/L Normal 136-145 [facility] Comment on above: Performed By: #### C MP, LIPID #### [facility] [address] [address] [address] Henrietta Zavala Urea nitrogen [Mass/Vol] 13.0 mg/dL Normal 7.0-18.0 [facility] Comment on above: Performed By: #### C MP, LIPID #### [facility] [address] [place] [address] Dr. Henrietta Zavala Urea nitrogen/Creatinine [Mass ratio] 16.9 mg/mg Normal [facility] Comment on above: Performed By: #### C MP, LIPID #### [facility] [address] [place] [address] Dr. Henrietta Zavala Tobacco Screening.on 021 Fall risk assessment a) No falls within the last year -[facility] [employer] DO Work Phone: Tobacco use status CP b) No -[facility] [employer] DO Work Phone: KNEE LEFT 3 VWSon 03-30-2021 KNEE LEFT 3 S [facility] Department of Radiology [address] [place] [id number] ======== Patient Name: ADRIANA RAYGOZA : [...] findings. Electronically signed: Jesse Lazaro. Transcribed by: [email or web address], User Resident: Electronically Signed by: JESSE LAZARO @ 03/30/2021 11:00 AM Normal [facility] Comment on above: Order Comment: , , = ========= , Ordering Provider - RAMANDEEP PATEL MD , KNEE RIGHT 3 Son 1 KNEE RIGHT 3 S [facility] Department of Radiology [address] [place] [phone] ======== Patient Name: ADRIANA RAYGOZA : 1955 Sex: F Age: Race: White Pt. Location: Patient Status: O Ordered Date: 03/30/2021 9:05:00 AM Completed Date: 03/30/2021 09:07 AM Requesting Provider: RAMANDEEP PATEL Attending Provider: RAMANDEEP PATEL Report Copy To: Signs & Symptoms: M25.569 Pain in unspecified knee I10 History: Deb Comments: Evaluate Exam: KNEE RIGHT 3 [facility] ======== CLINICAL INFORMATION: Chronic right knee pain. [...] reports Electronically signed: Jesse Lazaro. Transcribed by: [email or web address], User Resident: SHALA EATON Electronically Signed by: JESSE LAZARO @ 03/30/2021 03:52 PM I personally read this/these film(s) with this resident Normal [facility] Comment on above: Order Comment: Evalu ate MRI LUMBAR SP W & WO CONTRAS Ton 10-11-2020 MRI LUMBAR SP W & WO CONTRAST STUDY: MRI LUMBAR SP W WO CONTRAST; 10/11/2020 11:35 am INDICATION: POST LAMINECTOMY SYNDROME. COMPARISON: None. ACCESSION NUMBER(S): [id number] ORDERING CLINICIAN: Denis Donohue TECHNIQUE: The lumbar [...] * THIS EXAMINATION WAS INTERPRETED AT [facility] Normal [facility] LUMB SP COMP W FLEX/EXT 6 VW Son 09-12-2020 LUMB SP COMP W FLEX/EXT 6 VWS STUDY: LUMB SP COMP W FLEX/EXT 6 VWS ; ; 09/12/2020 8:45 am INDICATION: PAIN. COMPARISON: None. ACCESSION NUMBER(S): [id number] ORDERING CLINICIAN: Denis Donohue FINDINGS: Status post [...] neural foraminal stenosis at L5-S1 level. Normal [facility] Ambulatory Clinical Summaryo n 05-22-2020 Ambulatory Clinical Summary {[id number] }CD:[id number] Normal [facility] Coding Summary.on 05-10-2020 Coding Summary. CODING DATE: 05/10/2020 FINAL [facility] STATUS: Home (Routine DC) PAYOR: Commercial [...] Jasmine CphT Date Saved: 05/10/2020 04:39 pm [facility] Coding Summary.on 05-08-2020 Coding Summary. CODING DATE: 05/08/2020 FINAL [facility] STATUS: Home (Routine DC) PAYOR: Commercial [...] Jasmine CphT Date Saved: 05/08/2020 12:00 pm [facility] IntraOperative Documentson 0 05-08-2020 IntraOperative Documents [id number]#1. 00CD:127 Normal [facility] Postoperative Documentson Postoperative Documents [id number]#1.0 0CD:127 Normal [facility] Coding Summary.on 05-04-2020 Coding Summary. CODING DATE: 05/04/2020 FINAL [facility] STATUS: Home (Routine DC) PAYOR: [employer] APC DESCRIPTION 5301 Level 1 Upper GI Procedures ADMIT DX: REASON FOR VISIT DX: R10.13 Epigastric pain FINAL DX: PRINCIPAL: K29.50 Unspecified chronic gastritis without bleeding SECONDARY: K25.9 Gastric ulcer, unspecified as acute or chronic, without hemorrhage or perforation R11.2 Nausea with vomiting, unspecified PYMT PROC APC STAT DESCRIPTION DOCTOR NAME DATE [id number] Reid CLINE MD 05/01/2020 phagogastroduodenoscop y, flexible, transoral; with biopsy, single or multiple 36625 Anesthesia for upper Elliot Tena Jr, DO [...] Revised Date Saved: 05/04/2020 03:45 pm Normal [facility] Progress Note-Physicianon Progress Note-Physician Patient: ADRIANA [...] Cardiovascular: Regular rhythm. Neurologic: Alert, Oriented. Plan [place] [employer]hes[employer] (ASA) physical status classification: Class II. Anesthetic Preoperative Plan Anesthesia: General. . Anesthetic plan, risks, benefits, and alternatives discussed with the patient and/or family. Communication: face to face with (patient 5 minutes, Patient educated on smoking cesstation). Normal [facility] Comment on above: Result Comment: Elec tronically Signed By: Elliot Tena Jr, DO\.doigo\Date and Time Signed: 05/03/20 09:34 EDT Main OR Intraoperative Recor don 05-02-2020 Main OR Intraoperative Record IntraOp Document Type FT Summary Primary Physician: Reid NIEVES MD Finalized Date/Time: 05/02/20 13:35:19 Pt. Name: ADRIANA DINERO I /Sex: 1955 Female Med Rec #: [id number] Physician: Reid NIEVES MD Financial #: [id number] Pt. Type: O Room/Bed: / Admit/Disch: 05/01/20 07:03:44 - 05/01/20 23:59:59 Institution: Case Times FT Entry 1 Patient Times In Room 05/01/20 08:17:00 Out Room 05/01/20 08:25:00 Procedure Times Start 05/01/20 08:21:00 Stop 05/01/20 08:23:00 Anesthesia Times Start 05/01/20 08:17:00 Stop 05/01/20 08:25:00 Last Modified By: Savannah Chavis RN 05/01/20 08:26:21 General Comments: 05/02/2020 Chart opened to review and send charges Juvencio Bowen SOCIAL SCIENCE MANAGER Case Attendance FT Entry 1 Entry 2 Entry 3 Case Attendee Darinel Matias DO, Elliot Chavis RN, Fior Simms Role Performed Anesthesiologist of Repair Operator - Primary Scrub - Primary Record [...] RN Patient Status Stable Skin. Condition Intact, Rafael Capo, Warm, and Dry Airway Maintenance Oxygen in Use? No Outcomes Met? Yes Last Modified By: Savannah Chavis RN 05/01/20 06:57:50 Post-Care Text: The patient is free from signs and symptoms of injury related to transfer/transport General Comments: Report given to photo tech. RHRN Medication Administration FT Pre-Care Text: Verifies allergies, administers prescribed medications and solutions, administers prescribed antibiotic therapy and immunizing agents as ordered, evaluates response to medications Administers prescribed medications and solutions Entry 1 Expiration Date Yes Outcomes Met? Yes Verified Last Modified By: Savannah Chavis RN 05/01/20 06:57:59 Post-Care Text: The patient received appropriate medication(s) safely administered during the perioperative period For [facility] please see scanned medication reconcilliation form for [...] 08:26 Altagracia Bowen CST 05/02/20 13:35 Normal [facility] Consenton 05-01-2020 Consent [id number]#1.0 0CD:127 [facility] Consent for Treatmenton 04-11 Consent for Treatment [id number]#1.0 0CD:127 [facility] Discharge Instructionson Discharge Instructions [id number]#1.0 0CD:127 [facility] History and Physicalon 05-01 History and Physical [id number]#1.0 0CD:127 Normal [facility] Inpatient Patient Summaryon 05-01-2020 Inpatient Patient Summary [address] [id number] [facility] Clinical Discharge Instructions PERSON INFORMATION Name: ADRIANA DINERO I [facility]#:[id number] PHYSICIANS Admitting Physician: Reid NIEVES MD Attending Physician: Reid NIEVES MD PCP: MARIANO SAMAYOA, TOBY Discharge Diagnosis: Antral ulcer Comment: PATIENT EDUCATION INFORMATION Instructions: Medication Leaflets: Follow up: With: Address: When: Reid NIEVES [facility] [address] [place] [address] Within 2 weeks Type Location Start [facility] 2:15 PM 05/22/2020 2:30 PM Confirmed MEDICATION LIST Medications to Continue Taking That Have Changed [facility] [place], [place] [id number], [phone] START: omeprazole (omeprazole 40 mg Cap-DR) 1 [...] every 8 hours. Refills: 1. Comment: Normal [facility] IntraOperative Documentson 0 05-01-2020 IntraOperative Documents [id number] 0CD:127 [facility] IntraOperative Documents [id number] 0CD:127 [facility] Main OR PACU I Recordon 04-11 Main OR PACU I Record PACU Phase I Document Type FT Summary Primary Physician: Reid NIEVES MD Finalized Date/Time: 05/01/20 09:14:39 Pt. Name: ADRIANA DINERO/Sex: 1955 Female Med Rec #: [id number] Physician: Reid NIEVES MD Financial #: [id number] Pt. Type: O Room/Bed: / Admit/Disch: 05/01/20 [...] Signed By: Ami Donaldson RN 05/01/20 09:14 [facility] Main OR Preoperative Recordo n 05-01-2020 Main OR Preoperative Record Holding Area Document Type FT Summary Primary Physician: Reid NIEVES MD Finalized Date/Time: 05/01/20 07:37:17 Pt. Name: ADRIANA DINERO I /Sex: 1955 Female Med Rec #: [id number] Physician: Reid NIEVES MD Financial #: [id number] Pt. Type: O Room/Bed: / Admit/Disch: 05/01/20 [...] Signed By: Lizbeth Diamond RN 05/01/20 07:37 [facility] Monitor Recordon 05-01-2020 Monitor Record [id number]. 00CD:127 [facility] Patient Education - Texton 0 05-01-2020 Patient Education - Text Normal [facility] Ambulatory Clinical Summaryo n 04-24-2020 Ambulatory Clinical Summary {[id number]}CD:[id number] Normal [facility] Auto Diffon 04-24-2020 Basophils/100 WBC (Bld) 0.5 % Normal 0.0-2.0 [facility] Comment on above: Order Comment: Order Added by Discern Expert. Performed By: #### 2 085116, 0629150, 0251533, 8121561, [id number] #### [facility] [address] [place] [address] Basophils/Leukocytes Auto (Bld) [Pure # fraction] 0.0 E9/L Normal 0.0-0.2 [facility] Comment on above: Order Comment: Order Added by Discern Expert. Performed By: #### 2 289260, 0551132, 7625953, 4083839, [id number] #### [facility] [address] [place] [address] Eosinophils/100 WBC (Bld) 2.9 % Normal 0.0-8.0 [facility] Comment on above: Order Comment: Order Added by Discern Expert. Performed By: #### 2 726699, 0056099, 3518054, 7704066, [id number] #### [facility] [address] [place] [address] Eosinophils/Leukocyt es Auto (Bld) [Pure # fraction] 0.3 E9/L Normal 0.0-0.5 [facility] Comment on above: Order Comment: Order Added by Discern Expert. Performed By: #### 2 765796, 5888767, 1709641, 2363086, 65750031 #### [facility] [address] [place] [address] Lymphocytes/100 WBC (Bld) 23.7 % Normal 14.0-50.0 [facility] Comment on above: Order Comment: Order Added by Discern Expert. Performed By: #### 2 238458, 1026438, 1276958, 5753200, [id number] #### [facility] [address] [place] [address] Lymphocytes/Leukocyt es Auto (Bld) [Pure # fraction] 2.2 E9/L Normal 1.0-4.0 [facility] Comment on above: Order Comment: Order Added by Discern Expert. Performed By: #### 2 266279, 3543303, 8684449, 8833163, [id number] #### [facility] [address] [place] [address] Monocytes/100 WBC (Bld) 7.4 % Normal 4.0-14.0 [facility] Comment on above: Order Comment: Order Added by Discern Expert. Performed By: #### 2 165114, 6652471, 8662075, 3161747, 50658333 #### [facility] [address] [place] [address] Monocytes/Leukocytes Auto (Bld) [Pure # fraction] 0.7 E9/L Normal 0.2-1.0 [facility] Comment on above: Order Comment: Order Added by Discern Expert. Performed By: #### 2 963481, 6439630, 8969488, 6454960, 43826685 #### [facility] [address] [place] [address] Neutrophils/100 WBC (Bld) 65.5 % Normal 36.0-75.0 [facility] Comment on above: Order Comment: Order Added by Discern Expert. Performed By: #### 2 930069, 2049828, 1366560, 8887511, [id number] #### [facility] [address] [place] [address]878 Neutrophils/Leukocyt es Auto (Bld) [Pure # fraction] 6.0 E9/L Normal 2.0-7.5 [facility] Comment on above: Order Comment: Order Added by Discern Expert. Performed By: #### 2 693886, 8727825, 4660566, 6846505, [id number] #### [facility] [address] [place] [address] [place] [address] CBC w/ Auto Diffon 0 Erythrocyte distribution width (RBC) [Ratio] 16.1 % High 10.9-14.2 [facility] Comment on above: Performed By: #### 2 063963, 6604152, 4069589, 4260876, 50310999 #### [facility] [address] [place] [address] Hematocrit (Bld) [Volume fraction] 45.1 % Normal 34.0-46.0 [facility] Comment on above: Performed By: #### 2 578446, 0517271, 8760982, 6023537, 58722836 #### [facility] [address] [place] [address] Hemoglobin (Bld) [Mass/Vol] 15.0 g/dL Normal 12.0-16.0 [facility] Comment on above: Performed By: #### 2 840636, 1991729, 0080938, 4793646, 95790183 #### [facility] [address] [place] [address]176 MCH (RBC) [Entitic mass] 27.2 pg Normal 27.0-34.0 [facility] Comment on above: Performed By: #### 2 732710, 3954876, 7650021, 9117922, [id number] #### [facility] [address] [place] [address] MCHC (RBC) [Mass/Vol] 33.2 g/dL Normal 31.4-36.0 [facility] Comment on above: Performed By: #### 2 490504, 1164723, 6378007, 9206669, [id number] #### [facility] [address] [place] [address]145 MCV (RBC) [Entitic vol] 82.0 fL Normal 80.0-100.0 [facility] Comment on above: Performed By: #### 2 905198, 8552456, 6879111, 4205639, 33572859 #### [facility] [address] [place] [address] 26027 Platelet mean volume (Bld) [Entitic vol] 7.3 fL Normal 6.4-10.8 [facility] Comment on above: Performed By: #### 2 791238, 5533464, 2448853, 9829982, 30596220 #### [facility] [address] [place] [address]51 Platelets (Bld) [#/Vol] 253.0 E9/L Normal 150.0-500.0 [facility] Comment on above: Performed By: #### 2 193071, 1417163, 3397821, 4082854, [id number] #### [facility] [address] [place], [place] [id number] RBC (Bld) [#/Vol] 5.5 E12/L Normal 4.3-5.9 [facility] Comment on above: Performed By: #### 2 747009, 3438143, 9838370, 1148270, 13832574 #### [facility] [address] [place] [address] WBC corrected for nucl RBC Auto (Bld) [#/Vol] 9.1 E9/L Normal 4.0-11.0 [facility] Comment on above: Performed By: #### 2 511962, 7699551, 1553348, 1305717, 46417816 #### [facility] [address] [place] [address] CMPon 04-24-2020 Albumin [Mass/Vol] 3.7 g/dL Normal 3.3-5.0 [facility] Comment on above: Performed By: #### 2 847567, 7027761, 9374994, 2376187, 58770815 #### [facility] [address] [place] [address] Albumin [Mass/Vol] 1.0 g/dL Low 1.1-2.2 [facility] Comment on above: Performed By: #### 2 731966, 3031406, 1566160, 2828537, 93474678 #### [facility] [address] [place] [address] ALP [Catalytic activity/Vol] 107 Int._Unit/L High 21-98 [facility] Comment on above: Performed By: #### 2 597576, 3161881, 4863625, 1079027, 14489407 #### [facility] [address] [place] [address] ALT No additional P-5'-P [Catalytic activity/Vol] 17 Int._Unit/L Normal 6-46 [facility] Comment on above: Performed By: #### 2 880877, 9570414, 7498600, 4273676, 72483231 #### [facility] [address] [place] [address] Anion gap [Moles/Vol] 11 mmol/L Normal 6-16 [facility] Comment on above: Performed By: #### 2 526972, 2727871, 0294554, 7732757, 21923982 #### [facility] [address] [place] [address] AST [Catalytic activity/Vol] 21 Int._Unit/L Normal 5-43 [facility] Comment on above: Performed By: #### 2 881031, 2603873, 2366649, 4872094, 49696049 #### [facility] [address] [place] [address] Bilirubin [Mass/Vol] 0.5 mg/dL Normal 0.0-1.1 [facility] Comment on above: Performed By: #### 2 522831, 7372337, 3136873, 2995388, 89872254 #### [facility] [address] [place] [address] Calcium [Mass/Vol] 9.0 mg/dL Normal 8.9-11.1 [facility] Comment on above: Performed By: #### 2 898724, 3121918, 6549572, 5650293, 19109523 #### [facility] [address] [place] [address] Chloride [Moles/Vol] 107 mmol/L Normal 101-111 [facility] Comment on above: Performed By: #### 2 769225, 1847000, 6630973, 4099185, 95880905 #### [facility] [address] [place] [address] CO2 [Moles/Vol] 27 mmol/L Normal 21-31 [facility] Comment on above: Performed By: #### 2 681739, 5122574, 4371588, 7615468, 94237107 #### [facility] [address] [place] [address] Creatinine [Mass/Vol] 0.8 mg/dL Normal 0.5-1.3 [facility] Comment on above: Performed By: #### 2 146319, 9739052, 0050041, 3268800, 28282657 #### [facility] [address] [place] [address] Globulin (S) [Mass/Vol] 3.7 g/dL Normal 1.4-4.0 [facility] Comment on above: Performed By: #### 2 359987, 1215111, 5900151, 8524399, 75612898 #### [facility] [address] [place] [address] Glucose [Mass/Vol] 134 mg/dL Normal 55-199 [facility] Comment on above: Result Comment: If t his glucose result represents a fasting glucose, interpretation should refer to the following reference range: 55-99 mg/dL Performed By: #### 2 695191, 8107296, 1291596, 0199412, 88606214 #### [facility] [address] [place] [address] Potassium [Moles/Vol] 3.9 mmol/L Normal 3.5-5.3 [facility] Comment on above: Performed By: #### 2 911442, 5507750, 2895834, 5613233, 54638345 #### [facility] [address] [place] [address] Protein [Mass/Vol] 7.4 g/dL Normal 6.0-7.8 [facility] Comment on above: Performed By: #### 2 203232, 0312714, 4614932, 1395603, 19257401 #### [facility] [address] [place] [address] Sodium [Moles/Vol] 141 mmol/L Normal 135-145 [facility] Comment on above: Performed By: #### 2 328696, 7497273, 5466912, 3536313, 54190699 #### [facility] [address] [place] [address] Urea nitrogen [Mass/Vol] 17 mg/dL Normal 5-21 [facility] Comment on above: Performed By: #### 2 688202, 1282152, 5783189, 5217628, 68569426 #### [facility] [address] [place] [address] Urea nitrogen/Creatinine [Mass ratio] 21 No Units High 10-20 [facility] Comment on above: Performed By: #### 2 255434, 5055791, 5123174, 8606363, 13172477 #### [facility] [address] [place] [address] Consent for Treatmenton 04-10 Consent for Treatment [id number] 0CD:127 Normal [facility] Lipase Levelon 04-24-2020 Lipase [Catalytic activity/Vol] 40 unit/L Normal 13-58 [facility] Comment on above: Performed By: #### 2 309977, 0651708, 8182483, 9654541, 36908121 #### [facility] [address] [place] [address] Physician Orderon 04-24-2020 Physician Order [id number] CD:127 Normal [facility] eGFRon 04-24-2020 GFR/1.73 sq M predicted among blacks MDRD (S/P/Bld) [Vol rate/Area] mL/min/{1.73_m2} Normal >=59 [facility] Comment on above: Order Comment: Order added by Discern Expert. Result Comment: eGFR is race adjusted. AA=. Performed By: #### 2 110945, 7108229, 5124994, 5053859, 21614686 #### [facility] [address] [place] [address] GFR/1.73 sq M predicted among non-blacks MDRD (S/P/Bld) [Vol rate/Area] mL/min/{1.73_m2} Normal >=59 [facility] Comment on above: Order Comment: Order added by Discern Expert. Result Comment: Office Supervisor farhan kidney disease could be indicated at eGFR's of less than 60 mL/min/1.73m2. Kidney failure is indicated at less than 15 mL/min/1.73m2. Performed By: #### 2 097804, 7828389, 0083786, 0229097, 92986817 #### [facility] [address] [place] [address] PROGRESSon 11-04-2019 PROGRESS HNO ID: [id number] Author: Bridger Ma Service: ? Author Type: Physician Type: Progress Notes Filed: 11/04/2019 5:12 PM Note Text: Bridger Ma MD Department of Orthopaedics Orthopaedics [address] [place] [address] Dept: [phone] October 05, 2019 CHIEF COMPLAINT: New Patient [...] record. Caitlyn Cantu, LIZZY [address] [facility] [address] Toby Quintana MD [address] [place] [id number] This note was partially generated using ElationEMR voice recognition system, and there may be some incorrect words, spellings, and punctuation that were not noted in checking the note before saving. Bridger Ma MD [facility] CNOVon 10-05-2019 CNOV Office Visit (ORMDNA ) ADRIANA DINERO ([id number]) 1955 F Date Time Provider Department 10/05/19 2:45 PM BRIDGER MA During your visit today, we recorded the following information about you: Pulse Blood pressure Weight Height 81/minute 121/58 124.2 kg 1.676 m Eleanor Talbot Fl 11/04/2019 5:12 PM Signed Patient presents with: New Patient: Right knee pain - Ref. 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 Patient had an x-ray done at [facility] on 11/02/18 and a MRI on 1/21/19. Patient hand carried copies of the reports and films on a CD. with patient today. Referred by Caitlyn Cantu. Taking Wolverton and Naproxen for the pain and does not help. Using a walker today and as needed at home. Bridger Ma MD 11/04/2019 5:12 PM Signed Bridger Ma MD Department of Orthopaedics Orthopaedics [address] [address] Dept: [phone] October 05, 2019 CHIEF COMPLAINT: New Patient [...] or electronic medical record. LIZZY Graham [address] [place] [id number] Toby Quintana MD [address] [place] [phone] This note was partially generated using ElationEMR voice recognition system, and there may be some incorrect words, spellings, and punctuation that were not noted in checking the note before saving. Bridger Ma MD Referring Provider: CAITLYN CANTU [[id number]] Allergies As of Date: 10/05/2019 Noted Allergy [...] mg injection (CELESTONE)Disp: Rfl: [facility] [[id number]] Order #: [id number]: 1 Large Joint Arthro/Inj: R knee joint [EQG871] Order #: [id number] betamethasone acetate-betamethasone sodium phosphate 6 mg injection [...] Status:Closed by BRIDGER MA MD on 11/04/19 [facility] PROGRESSon 10-05-2019 PROGRESS HNO ID: [id number] Author: Eleanor Talbot Ma Service: ? 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 Patient had an x-ray done at [facility] on 11/02/18 and a MRI on 11/30/18. Patient hand carried copies of the reports and films on a CD. with patient today. Referred by Caitlyn Cantu. Taking Wolverton and Naproxen for the pain and does not help. Using a walker today and as needed at home. Normal [facility] CREATININEon 08-26-2019 Creatinine [Mass/Vol] 0.80 mg/dL Normal 0.50 - 1.05 [facility] Comment on above: Performed By: #### C REAT #### [address] [address] Creatinine [Mass/Vol] mg/dL Normal >60 [facility] Comment on above: Performed By: #### C REAT #### [address] [address] Result Comment: CALC ULATIONS OF ESTIMATED GFR ARE PERFORMED USING THE MDRD STUDY EQUATION FOR THE IDMS-TRACEABLE CREATININE METHODS. CLIN CHEM 2007;53:766-72 ELECTROLYTE PANELon 08-26-20 19 Anion gap [Moles/Vol] 14 mmol/L Normal 10 - 20 [facility] Comment on above: Performed By: #### E LECT #### [address] [address] Chloride [Moles/Vol] 104 mmol/L Normal 98 - 107 [facility] Comment on above: Performed By: #### E LECT #### [address] [address] HCO3 (Bld) [Moles/Vol] 29 mmol/L Normal 21 - 32 [facility] Comment on above: Performed By: #### E LECT #### [address] [address] Potassium [Moles/Vol] 4.6 mmol/L Normal 3.5 - 5.3 [facility] Comment on above: Performed By: #### E LECT #### [address] [address] Sodium [Moles/Vol] 142 mmol/L Normal 136 - 145 [facility] Comment on above: Performed By: #### E LECT #### [address] [address] UREA NITROGENon 08-26-2019 Urea nitrogen [Mass/Vol] 14 mg/dL Normal 6 - 23 [facility] Comment on above: Performed By: #### U CARLOS #### [address] [address] [facility] CARDIAC STRESS/REST INJE CTIONon 08-25-2019 [facility] CARDIAC STRESS/REST INJECTION Patient Name: ADRIANA DINERO STUDY: MYOCARDIAL PERFUSION STRESS TEST WITH LEXISCAN Performing facility: [facility], [address] [place] [address], [address], [address] Provider: GURU LU PCP: Dr. Poli QUINTANA Supervising provider: Poli VILLAFANA INDICATION: DYSPNEA EDEMA HISTORY: Gender: F; Age: 64 y/o ; Height: 170.18 cm; Weight: 127.044055 kg. SOB High Cholesterol; Family HX CAD; PALPITATIONS COMPARISON: ACCESSION NUMBER(S): [id number] ORDERING CLINICIAN: IBAN LU TECHNIQUE: TWO DAY [...] Electronically signed by: IBAN LU MD Normal [facility] OT-MRI KNEE RT WO CON IMPORT on 07-27-2019 OT-MRI KNEE RT WO CON IMPORT Images were obtained outside of [facility] [id number] Normal [facility] CNOVon 07-07-2019 CNOV Office Visit (SPNMED ) ADRIANA DINERO ([id number]) 1955 F Date Time Provider Department 07/07/19 9:40 AM CAITLYN CANTU SPNMED During your visit today, we recorded the following information about you: Pulse Blood pressure Weight Height 80/minute 126/55 124.1 kg 1.676 m LIZZY Graham 07/07/2019 1:08 PM Signed BEVERLEY Lopez [facility] [address] [place] [address] 07/07/2019 Assessment Diagnosis: Encounter Diagnosis ICD-10-CM 1. [...] told for multiple years that she has fawz-jq-aryc arthritis in the right knee and this [...] record for those providers who practice within [facility] or with access to [facility] via [facility], or via letter. - [...] past--performed in [address] Jones in [place]. The procedure was a spinal laminectomy and fusion L2-4, and subsequent revision L2-5 lami/fusion with posterior hardware and interbody cages. 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 Author Type: Physician Job Analyst Type: Progress Notes Filed: 07/07/2019 1:08 PM Note Text: Caitlyn Cantu PA-C [facility] [address] [place] [address] [place] [address] 07/07/2019 Assessment Diagnosis: Encounter Diagnosis ICD-10-CM 1. [...] told for multiple years that she has cnik-sq-bdwi arthritis in the right knee and this [...] record for those providers who practice within [facility] or with access to [employer] via [facility] [employer], or via letter. SUBJECTIVE: [...] past--performed [place] [address] Jones in [place]. The procedure was a spinal laminectomy and fusion L2-4, and subsequent revision L2-5 lami/fusion with posterior hardware and interbody cages. 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 IMAGING STUDIES: See above Normal [facility] CT-CT cervical spine w con I MPORTon 04-08-2019 CT-CT cervical spine w con IMPORT Images were obtained outside of [facility] [id number] Normal [facility] CT-CT cervical spine w con IMPORT Images were obtained outside of [facility] [id number] Normal [facility] CT-CT cervical spine w con IMPORT Images were obtained outside of [facility] [id number] Normal [facility] CT-CT lumbar spine w con IMP Edi 04-08-2019 CT-CT lumbar spine w con IMPORT Images were obtained outside of [facility] [id number] Normal [facility] CT-CT lumbar spine w con IMPORT Images were obtained outside of [facility] [id number] Normal [facility] CT-CT lumbar spine w con IMPORT Images were obtained outside of [facility] [id number] Normal [facility] OT-IR myelogram spine total IMPORTon 04-08-2019 OT-IR myelogram spine total IMPORT Images were obtained outside of [facility] [id number] Normal [facility] OT-IR myelogram spine total IMPORT Images were obtained outside of [facility] [id number] Normal [facility] OT-IR myelogram spine total IMPORT Images were obtained outside of [facility] [id number] Normal [facility] OT-MRI C-SPINE WO CON IMPORT on 02-25-2019 OT-MRI C-SPINE WO CON IMPORT Images were obtained outside of [facility] [id number] Normal [facility] OT-XR KNEE RT 4V OR > IMPORT on 11-30-2018 OT-XR KNEE RT 4V OR > IMPORT Images were obtained outside of [facility] [id number] Normal [facility] Vital Signs Date Time Vital Sign Value Performing Clinician Facility 02-10-2024 13:04-0400 Body height 167.64 cm [facility] 02-10-2024 13:04-0400 Body mass index (BMI) [Ratio] 38.5 kg/m2 [facility] 02-10-2024 13:04-0400 Body weight 108.4 kg [facility] 02-10-2024 13:04-0400 Diastolic blood pressure 73 mm[Hg] [facility] 02-10-2024 13:04-0400 Heart rate 85 /min [facility] 02-10-2024 13:04-0400 Systolic blood pressure 105 mm[Hg] [facility] 01-19-2024 08:44-0400 Body height 167.64 cm [facility] 12-30-2023 09:55-0500 Body height 167.64 cm [facility] 12-30-2023 09:55-0500 Body mass index (BMI) [Ratio] 38.9 kg/m2 [facility] 12-30-2023 09:55-0500 Body weight 109.31 kg [facility] 12-30-2023 09:55-0500 Diastolic blood pressure 76 mm[Hg] [facility] 12-30-2023 09:55-0500 Heart rate 69 /min [facility] 12-30-2023 09:55-0500 Systolic blood pressure 120 mm[Hg] [facility] 12-09-2023 10:32-0500 Diastolic blood pressure 80 mm[Hg] Iban Lu MD Work Phone: [facility] 12-09-2023 10:32-0500 Systolic blood pressure 130 mm[Hg] Iban Lu MD Work Phone: [facility] 12-09-2023 09:46-0500 Body height 167.6 cm Iban Lu MD Work Phone: [facility] 12-09-2023 09:46-0500 Body mass index (BMI) [Ratio] 39.06 kg/m2 Iban Lu MD Work Phone: [facility] 12-09-2023 09:46-0500 Body weight 109.77 kg Iban Lu MD Work Phone: [facility] 12-09-2023 09:46-0500 Heart rate 68 /min Iban Lu MD Work Phone: [facility] 08-20-2023 09:00-0400 Body height 167.64 cm Toby Quintana Other [employer] Other 08-20-2023 09:00-0400 Body mass index (BMI) [Ratio] 38.38 kg/m2 Toby Quintana Other [employer] Other 08-20-2023 09:00-0400 Body weight 107.87 kg Toby Quintana Other [employer] Other 08-20-2023 09:00-0400 Diastolic blood pressure 75 mm[Hg] Toby Qunitana Other [employer] Other 08-20-2023 09:00-0400 Systolic blood pressure 108 mm[Hg] Toby Quintana Other [employer] Other 04-24-2023 11:15-0400 Body height 167.64 cm Toby Quintana Other [employer] Other 04-24-2023 11:15-0400 Body mass index (BMI) [Ratio] 38.73 kg/m2 Toby Quintana Other [employer] Other 04-24-2023 11:15-0400 Body weight 108.86 kg Toby Quintana Other [employer] Other 04-24-2023 11:15-0400 Diastolic blood pressure 79 mm[Hg] Toby Quintana Other [employer] Other 04-24-2023 11:15-0400 Systolic blood pressure 114 mm[Hg] Toby Quintana Other [employer] Other 02-07-2023 09:30-0400 Body height 167.64 cm Toby Quintana Other [employer] Other 02-07-2023 09:30-0400 Body mass index (BMI) [Ratio] 39.99 kg/m2 Toby Quintana Other [employer] Other 02-07-2023 09:30-0400 Body weight 112.4 kg Toby Quintana Other [employer] Other 02-07-2023 09:30-0400 Diastolic blood pressure 68 mm[Hg] Toby Quintana Other [employer] Other 02-07-2023 09:30-0400 Respiratory rate 18 /min Toby Quintana Other [employer] Other 02-07-2023 09:30-0400 SaO2% (BldA) [Mass fraction] 93 % Toby Quintana Other [employer] Other 02-07-2023 09:30-0400 Systolic blood pressure 142 mm[Hg] Toby Quintana Other [employer] Other 01-08-2023 10:00-0500 Body height 167.64 cm Samuel Chatman II Other [employer] Other 01-08-2023 10:00-0500 Body mass index (BMI) [Ratio] 40.19 kg/m2 Samuel Chatman II Other [employer] Other 01-08-2023 10:00-0500 Body weight 112.95 kg Samuel Chatman II Other [employer] Other 12-09-2022 13:25-0500 Body height 167.64 cm Toby Quintana Work Phone: [facility] 250 DO Work Phone: 12-09-2022 13:25-0500 Body mass index (BMI) [Ratio] 40.03 kg/m2 Toby Quintana Work Phone: [facility] 250 DO Work Phone: 12-09-2022 13:25-0500 Body surface area Derived from formula 2.19 m2 Toby Quintana Work Phone: [facility] 250 DO Work Phone: 12-09-2022 13:25-0500 Body weight 112.49 kg Toby Quintana Work Phone: [facility] 250 DO Work Phone: 12-09-2022 13:25-0500 Diastolic blood pressure 80 mm[Hg] Toby Quintana Work Phone: [facility] 250 DO Work Phone: 12-09-2022 13:25-0500 Heart rate 78 /min Toby Quintana Work Phone: [facility] 250 DO Work Phone: 12-09-2022 13:25-0500 Systolic blood pressure 118 mm[Hg] Toby Quintana Work Phone: [facility] 250 DO Work Phone: 11-22-2022 09:00-0500 Body height 167.64 cm Leeann Quintana Other [employer] Other 11-22-2022 09:00-0500 Body mass index (BMI) [Ratio] 39.54 kg/m2 Leeann Blades Other [employer] Other 11-22-2022 09:00-0500 Body weight 111.13 kg Leeann Blades Other [employer] Other 09-04-2021 13:27-0400 Body height 170.18 cm Toby Quintana Work Phone: [facility] [employer] 250 DO Work Phone: 09-04-2021 13:27-0400 Body mass index (BMI) [Ratio] 39.78 kg/m2 Toby Quintana Work Phone: [facility] [employer] 250 DO Work Phone: 09-04-2021 13:27-0400 Body surface area Derived from formula 2.24 m2 Toby Quintana Work Phone: [facility] 250 DO Work Phone: 09-04-2021 13:27-0400 Body weight 115.21 kg Toby Quintana Work Phone: [facility] 250 DO Work Phone: 09-04-2021 13:27-0400 Diastolic blood pressure 78 mm[Hg] Toby Quintana Work Phone: [facility] 250 DO Work Phone: 09-04-2021 13:27-0400 Heart rate 80 /min Toby Quintana Work Phone: [facility] 250 DO Work Phone: 09-04-2021 13:27-0400 Systolic blood pressure 104 mm[Hg] Toby Quintana Work Phone: [facility] 250 DO Work Phone: Encounters Encounter Date Encounter Type Care Provider Facility Start: 02-10-2024 End: 02-10-2024 ambulatory [facility] Work Phone: Start: 02-10-2024 End: 02-10-2024 Patient encounter procedure [facility] Physician [facility] Work Phone: Start: 01-19-2024 End: 01-19-2024 Patient encounter procedure [facility] Physician [facility] Work Phone: Start: 01-14-2024 Non-patient / Non-visit [facility] Physician [facility] Work Phone: Start: 01-05-2024 Non-patient / Non-visit [facility] Physician [facility] Work Phone: Start: 12-30-2023 Patient encounter procedure [facility] Start: 12-30-2023 End: 12-30-2023 ambulatory [facility] Work Phone: Start: 12-30-2023 End: 12-30-2023 Patient encounter procedure [facility] Physician [facility] Work Phone: Start: 12-19-2023 End: 12-19-2023 ambulatory Toby Quintana Other [employer] Other Start: 12-19-2023 Telephone encounter Toby Quintana [facility] Start: 12-17-2023 End: 12-17-2023 ambulatory Toby Quintana Other [employer] Other Start: 12-17-2023 Telephone encounter Toby Quintana [facility] Start: 12-16-2023 (Televisit) Televisit Toby Quintana [facility] Start: 12-16-2023 End: 12-16-2023 ambulatory Toby Quintana Other [employer] Other Start: 12-09-2023 End: 12-09-2023 ambulatory [facility] Start: 12-09-2023 End: 12-09-2023 Office outpatient visit 25 minutes Iban Lu MD Work Phone: [facility] Comment on above: Supraventricular tac hycardia by ECG (Primary Dx); Mixed hyperlipidemia; Palpitations; Class II obesity Start: 12-08-2023 End: 12-08-2023 ambulatory Toby Quintana Other [employer] Other Start: 12-08-2023 Telephone encounter Toby Quintana [facility] Start: 11-04-2023 End: 11-04-2023 ambulatory Toby Quintana Other [employer] Other Start: 11-04-2023 Telephone encounter Toby Quintana [facility] Start: 10-21-2023 (Televisit) Televisit Toby Quintana [facility] Start: 10-21-2023 End: 10-21-2023 ambulatory Toby Quintana Other [facility] Other Start: 10-21-2023 End: 10-21-2023 Patient encounter procedure [facility] Work Phone: Start: 10-20-2023 End: 10-20-2023 ambulatory Toby Quintana Other [facility] Other Start: 10-20-2023 Telephone encounter Toby Quintana [facility] Start: 09-25-2023 (Televisit) Televisit Toby Quintana [facility] Start: 09-25-2023 End: 09-25-2023 ambulatory Toby Quintana Other [facility] Other Start: 09-22-2023 (Televisit) Televisit Toby Quintana [facility] Start: 09-22-2023 End: 09-22-2023 ambulatory Toby Quintana Other [facility] Other Start: 09-22-2023 Telephone encounter Toby Mariano [facility] Start: 08-20-2023 End: 08-20-2023 ambulatory Toby Quintana Other [facility] Other Start: 08-20-2023 Patient encounter procedure Toby Mariano [facility] Start: 05-22-2023 Telephone encounter Toby Michael raun Work Phone: [facility] 600 DO Work Phone: Start: 05-12-2023 End: 05-12-2023 ambulatory Toby Quintana Other [facility] Other Start: 05-12-2023 Telephone encounter Toby Quintana [facility] Start: 04-24-2023 End: 04-24-2023 ambulatory Toby Quintana Other [facility] Other Start: 04-24-2023 Office outpatient vi sit 15 minutes Toby Quintana [facility] Start: 04-11-2023 End: 04-11-2023 ambulatory Toby Quintana Other [facility] Other Start: 04-11-2023 Telephone encounter Toby Mariano [facility] Start: 03-13-2023 End: 03-13-[address] EVIN BYERS Facility:UNKNOWN Start: 03-13-[address] Toby Quintana Facility:[id number] Start: 02-07-2023 End: 02-07-2023 ambulatory Toby Quintana Other [facility] Other Start: 02-07-2023 Patient encounter procedure Toby Quintana [facility] Start: 02-03-2023 End: 02-03-2023 ambulatory Leeann Quintana Other [facility] Other Start: 02-03-2023 Telephone encounter Leeann Busby [facility] Start: 01-27-2023 End: 01-27-2023 ambulatory Leeann Blades Other [facility] Other Start: 01-27-2023 Telephone encounter Leeann Blades F [facility] Start: 01-21-[address] TOBY QUINTANA Facil ity:H1 Start: 01-16-2023 End: 01-16-2023 ambulatory Samuel Chatman II Other [facility] Other Start: 01-16-2023 Telephone encounter Samuel Guajardoronnie PAYNE [facility] Start: 01-08-2023 FQHC visit new patient Samuel Goodman nayeli PAYNE [facility] Start: 01-08-2023 End: 01-08-2023 ambulatory Samuel Chatman II Facility:[facility] Start: 01-08-2023 End: 01-08-2023 ambulatory MD Toby Quintana Work Phone: [facility] Work Phone: Start: 01-08-2023 End: 01-08-2023 Patient encounter procedure MD oTby Quintana Work Phone: [facility] [place] [facility] Start: 01-02-2023 End: 01-02-2023 ambulatory Toby Quintana Other [facility] Other Start: 01-02-2023 Telephone encounter Leeann Blades F [facility] Start: 12-30-2022 End: 12-30-2022 ambulatory Leeann Blades Other [facility] Other Start: 12-30-2022 Telephone encounter Leeann Blades F [facility] Start: 12-26-2022 End: 12-26-2022 ambulatory Leeann Blades Other [facility] Other Start: 12-26-2022 Telephone encounter Leeann Blades F [facility] Start: 12-19-2022 End: 12-19-2022 ambulatory Leeann Blades Other [facility] Other Start: 12-19-2022 Telephone encounter Leeann Blades F [facility] Start: 12-17-2022 End: 12-17-2022 ambulatory Toby Quintana Other [facility] Other Start: 12-17-2022 Telephone encounter Toby Quintana [facility] Start: 12-10-2022 End: 12-10-2022 ambulatory Toby Quintana Other [facility] [employer] Other Start: 12-10-2022 Telephone encounter Toby Quintana [facility] Start: 12-09-2022 Office outpatient vi sit 25 minutes Toby Quintana Work Phone: [facility] 250 DO Work Phone: Start: 12-09-[address] Iban Castro amsdagatha [facility] Facility: Start: 11-25-2022 End: 11-25-2022 ambulatory Leeann Blades Other [facility] [employer] Other Start: 11-25-2022 Telephone encounter Leeann Blades [facility] Start: 11-22-2022 Office outpatient ne w 45 minutes Leeann Blades [facility] Start: 11-22-2022 End: 11-22-2022 ambulatory Leeann Blades Facility:[facility] Start: 11-22-2022 End: 11-22-2022 ambulatory MD Toby Quintana Work Phone: [facility] Work Phone: Start: 11-22-2022 End: 11-22-2022 Patient encounter procedure MD Toby Quintana Work Phone: [facility] [place] Work Phone: Start: 11-05-2022 Adult health examination Nannette Quintana Other [facility] [employer] Other Start: 11-05-2022 Pre-procedure evalua tion check Toby Quintana Other [facility] [employer] Other Start: 10-04-2022 End: 10-05-[address] SHALA OMER Facility:[facility]1 Start: 09-16-2022 Rx Renewal Toby Quintana Work Phone: [facility] 250 DO Work Phone: Start: 07-24-2022 End: 07-24-[address] TOBY QUINTANA Facility:[facility]1 Start: 07-22-2022 End: 07-22-[address] LAUREL BRAVO Facility:[facility]1 Start: 04-18-2022 Encounter for genera l adult medical examination without abnormal findings DR TOBY QUINTANA [facility] Start: 04-13-2022 End: 04-14-[address] TOBY QUINTANA Facility:[facility]1 Start: 04-12-2022 End: 04-13-[address] TOBY QUINTANA Facility:[facility]1 Start: 04-12-2022 End: 04-13-2022 Encounter for general adult medical examination without abnormal findings DR TOBY QUINTANA Facility:[facility]1 Start: 09-04-2021 FUV, Provider: Iban Lu, Status: Pen, Time: 2:00 PM Toby Quintana Work Phone: [facility] [address] [place] Work Phone: Start: 09-04-2021 Office outpatient vi sit 25 minutes Toby Quintana Work Phone: [facility] 250 DO Work Phone: Start: 08-30-2021 Rx Renewal Toby Quintana Work Phone: [facility] [address] [place] Work Phone: Procedures Date Procedure [...] of patient Toby Mariano Other Cholecystectomy Toby Schofield Bra un Work Phone: Hysterectomy Toby Quintana Work Phone: Procedure on back Toby Schofield B raun Work Phone: Plan of Treatment Date Care Activity Detail Author Start: 12-09-2024 End: 12-09-2024 Patient encounter procedure 12/09/2024 9:00 AM EST Office Visit [facility] [address] [facility] [place] [address] [place] [id number] Iban Lu [facility] [place] [address] [place] [address] [facility] Start: 01-19-2024 Patient referral [facility] Work Phone: Start: 12-09-2023 End: 12-09-2024 Basic metabolic 2000 panel - Serum or Plasma Basic Metabolic Panel Lab Routine Supraventricular tachycardia by ECG Palpitations Expected: 12/09/2023 (Approximate), Expires: 12/09/2024 [facility] Service Area Work Phone: Comment on above: Expected: 12/09/2023 (Approximate), Expires: 12/09/2024 Start: 12-09-2023 FUV, Provider: Iban Lu, Status: Pen, Time: 10:00 AM FUV, Provider: Iban Lu, Status: Pen, Time: 10:00 AM [facility] 250 DO Work Phone: Start: 07-11-2023 COVID-19 Vaccine () COVID-19 Vaccine ( season) [facility] Start: 07-11-2023 Influenza vaccination Influenza Vacc ine (#1) [facility] Start: 09-20-2022 FUV, Provider: Iban Lu, Status: Pen, Time: 2:20 PM FUV, Provider: Iban Lu, Status: Pen, Time: 2:20 PM [facility] [employer] 250 DO Work Phone: Start: 09-05-2022 FUV, Provider: Iban Lu, Status: Pen, Time: 11:20 AM FUV, Provider: Iban Lu, Status: Pen, Time: [facility]:20 [facility] Work [facility]: Start: 01-19-2006 Zoster Vaccines (1 o f 2) Zoster Vaccines (1 of 2) [facility] Start: 1996 Screening for malign ant neoplasm of breast Mammogram [facility] Start: 01-19-1978 DTaP/Tdap/Td Vaccine s (1 - Tdap) DTaP/Tdap/Td Vaccines (1 - Tdap) [facility] Start: 01-19-1974 Hepatitis C screening Hepatitis C Sc [facility] Start: 01-19-1962 Pneumococcal Vaccine : 65+ Years (1 - PCV) Pneumococcal Vaccine: 65+ Years (1 - PCV) [facility] Start: 1956 Lipid panel Lipid Panel [facility] Start: 1955 Medicare Annual Wellness Visit Medicare Annual Wellness Visit (AWV) [facility] Start: 1955 Screening for malign ant neoplasm of colon [facility] Start: 1955 Screening for osteoporosis Bone Density Scan [facility] Comprehensive metabo lic 2000 panel - Serum or Plasma [facility] Patient referral [facility] Work Phone: [facility] Immunizations Immunization Date Immunization Notes Care Provider Fa vern 09-06-2022 Pfizer COVID-19 Vac Bivalent 30 MCG/0.3ML Intramuscular Suspension Toby Quintana Work Phone: [facility] 250 DO Work Phone: 07-02-2021 Pfizer-BioNTech COVI D-19 Vacc 30 MCG/0.3ML Intramuscular Suspension Toby Quintana Work Phone: [facility] Comment on above: Series: 06-11-2021 Pfizer-BioNTech COVI D-19 Vacc 30 MCG/0.3ML Intramuscular Suspension Toby Quintana Work Phone: [facility] Comment on above: Series: 09-12-2014 tetanus and diphther ia toxoids, adsorbed, preservative free, for adult use (5 Lf of tetanus toxoid and 2 Lf of diphtheria toxoid) Toby Quintana Other [facility] 09-15-2013 tetanus and diphther ia toxoids, adsorbed, preservative free, for adult use (5 Lf of tetanus toxoid and 2 Lf of diphtheria toxoid) Toby Quintana Other [facility] 09-14-2013 influenza, seasonal, injectable Toby Quintana Work Phone: [facility] 09-14-2013 influenza virus vacc ine, unspecified formulation Iban Lu MD Work Phone: [facility] Work Phone: 08-10-2013 influenza virus vacc ine, unspecified formulation Toby Quintana Work Phone: [facility] 250 DO Work Phone: 07-19-2012 influenza virus vacc ine, unspecified formulation Toby Quintana Work Phone: [facility] 250 DO Work Phone: 11-10-2009 influenza virus vacc ine, unspecified formulation Toby Quintana Work Phone: [facility] 250 DO Work Phone: 08-10-2009 influenza virus vacc ine, unspecified formulation Toby Quintana Work Phone: [facility] 250 DO Work Phone: 07-14-2007 pneumococcal polysaccharide vaccine, 23 sarai Quintana Other [facility] Payers Date Payer Category Payer Medicare [id number] 2023 Medicare AET[employer] MEDICARE A ETNA MEDICARE VALUE PLAN [id number] 2023-Present [address] [place] [address] [id number] 2022 Self-pay [id number] 1959 Unknown [id number] 1959 Unknown [id number] [id number] [id number] 1956 Unknown [id number] 1956 Unknown [id number] 1956 Unknown [id number] 1956 Unknown [id number] 1956 Unknown [id number] 1956 Unknown [id number] [id number] 1956 Unknown [id number] 1956 Unknown [id number] [id number] 1956 Unknown [id number] 1956 Unknown [id number] Unknown Unknown HCAP/HFA/FAP Active [id number] Unknown [id number] Unknown [id number] Social History Date Type Detail Facility Start: 12-09-2023 No illicit drug use No illicit drug use [place] [id number] MD Work Phone: Comment on above: Coffee 1 cup daily; quit 1987; Start: 1955 Sex Assigned At Female F [facility] Start: 12-09-2023 Sex Assigned At N [facility] [employer] Other Start: 12-09-2023 Tobacco smoking status NHIS Ex-smoker [facility] Work Phone: History of tobacco use Current smoker [facility] Work Phone: History of tobacco use Cigarette Smoker [facility] Work Phone: Start: 12-09-2023 Tobacco use and exposure Smokeless tobacco non-user [facility] Work Phone: Start: 12-09-2023 Alcohol intake Lifetime non-d mary (finding) [facility] Work Phone: Start: 1955 Sex Assigned At Not on file [facility] Work Phone: Start: 11-29-2023 End: 12-09-2023 Exposure to SARS-CoV-2 (event) Not sure [facility] Clinical Notes 11-22-2022 to 12-17-2023 Note Date & Type Note Facility 12-17-2023 Evaluation note Encounter Date Diagnosis Assessment Notes Dec, Jaw swelling (ICD-10 - R22.0) [facility] Other 02-06-2024 Evaluation note* Encounter Date Diagnosis Assessment Notes Treatment Notes Treatment Clinical Notes Dec, Dental infection (ICD-10 - K04.7) Pt will contact her insurance, find a different dentist. Will continue antibiotic at this time. [facility] Other 01-30-2024 History of Present illness Narrative* [...] follow-up will be scheduled Iban Lu MD, [facility] Review of Systems Cardiovascular: Positive [...] EVENING, Disp: 225 tablet, Rfl: 0 omega 9-loz-xcm-fish oil 360 mg-108 mg- 180 mg-1,200 mg [...] of Iban Lu MD. documented in this [facility] Work Phone: [phone]) 300-869601-30-2024 Instructions* Patient Instructions* Nataliya Manning LPN - [...] Follow up one year documented in this [facility] Work Phone: [phone] 922-564712-12-2023 Evaluation note* Encounter Date Diagnosis Assessment Notes Treatment Notes Treatment Clinical Notes Oct, Open fracture of tooth, initial encounter (ICD-10 - S02.5XXB) Keep area clean, brush and rinse frequently. seeing dentist next week. Oct, Lumbar radiculitis (ICD-10 - M54.16) pt requests refill for her chronic back issues. We discussed her treatment plan w Dr. Byers. [facility] Other 11-16-2023 Evaluation note* Encounter Date Diagnosis Assessment Notes Treatment Notes Treatment Clinical Notes Sep, Lumbar radiculitis (ICD-10 - M54.16) CHanged pain med. Jax will call Dr. Byers's office for a change in treatment plan and an appt. Sep, Nausea & vomiting (ICD-10 - R11.2) States that zofran has not helped in the past - phenergan sent in for short term use. [facility] Other 11-13-2023 Evaluation note* Encounter Date Diagnosis Assessment Notes Treatment Notes Treatment Clinical Notes Sep, Radiculopathy, lumbar region (ICD-10 - M54.16) My staff reviewed her case with Dr. Byers's staff. She is to call their office for follow-up appointment next month. Patient does not want another injection and would rather have an ablation. Trial of tramadol sent to pharmacy. OARRS reviewed. [facility] Other 10-11-2023 Evaluation note* Encounter Date Diagnosis Assessment Notes Treatment Notes Treatment Clinical Notes Aug, Pain in right knee (ICD-10 - M25.561) Aug, Other chronic pain (ICD-10 - G89.29) Aug, Pain in left knee (ICD-10 - M25.562) [facility] Other 03-31-2023 Evaluation note* Encounter Date Diagnosis Assessment Notes Treatment Notes Treatment Clinical Notes Jan, Nausea & vomiting (ICD-10 - R11.2) Jan, Pain in right knee (ICD-10 - M25.561) Jan, Other chronic pain (ICD-10 - G89.29) Jan, Pain in left knee (ICD-10 - M25.562) [facility] Other 03-31-2023 Evaluation note* Encounter Date Diagnosis Assessment Notes Treatment Notes Treatment Clinical Notes Jan, Nausea & vomiting (ICD-10 - R11.2) chronic problem - requesting refill on Zofran Jan, Pain in right knee (ICD-10 - M25.561) Jan, Other chronic pain (ICD-10 - G89.29) Jan, Pain in left knee (ICD-10 - M25.562) [facility] Other 03-01-2023 Evaluation note* Encounter Date Diagnosis [...] She would prefer to stay close to [place]. Our office is working to get her referral to pain management near [place]. [facility] Other 01-31-2023 Evaluation note* Encounter Date Diagnosis Assessment Notes Treatment Notes Treatment Clinical Notes Nov, Lumbar pain (ICD-10 - M54.50) [facility] Other 01-13-2023 Evaluation note* Encounter Date Diagnosis Assessment Notes Treatment Notes Treatment Clinical Notes Nov, Low back pain, unspecified back pain laterality, unspecified chronicity, unspecified whether sciatica present (ICD-10 - M54.50) [facility] Other evaluation noteNo assessment information available [facility] Work Phone: Evaluation noteNo InformationNort [employer] Other evaluation noteNortFli[employer] Other Evaluation note* Diagnosis Supraventricular tachycardia by ECG- Primary Mixed hyperlipidemia Palpitations Class II obesity documented in this encounter [facility] Work Phone: Evaluation note* Diagnosis Onset Date Resolution Status Fatigue acute Hyperlipidemia acute Lumbar radiculopathy, chronic acute Medicare annual wellness visit, subsequent acute SVT (supraventricular tachycardia) acute [facility] Work Phone: Evaluation note* Diagnosis Onset Date Resolution Status Fatigue acute Hyperlipidemia acute Lumbar radiculopathy, chronic acute Medicare annual wellness visit, subsequent acute SVT (supraventricular tachycardia) acute Lumbar radiculopathy, chronic acute [facility] Work Phone: History general Narrative - Reported* [...] childbirth Hospitalization History hysterectomy Hospitalization History pancreatitis [facility] [employer] Other [facility] - [facility] Other Reason for referral (narrative)* Consultation (Routine) - Authorized Specialty Diagnoses / Procedures Referred By Contac t Referred To Contact Cardiology Diagnoses Supraventricular tachycardia by ECG Procedures Follow Up In Cardiology Iban Lu MD [address] [facility] [address], [address] [address] Iban Lu MD [address] [facility], [facility] [address] [place] [address] Referral ID Status Reason Start Date Expiration Date V isits Requested Visits Authorized [id number] Authorized 12/09/2023 12/08/2024 1 1 [facility] Work Phone: Reason for visit NarrativePain Medicine [facility] [employer] Other Summary Purpose Family History Unknown Family [...] will be scheduled * Iban Lu MD, [facility] * ADRIANA DINERO is being [...] and provided the patient with 2 local load 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 * ASSESSMENT AND PLAN: * [...] will be scheduled * Iban Lu MD, [facility] Chief Complaint and Reason for Visit Chief Complaint xray Chief Complaint Swollen Face, [place]- [phone] Medicare Wellness Reason for Visit Fatigue Hyperlipidemia Lumbar radiculopathy, chronic Medicare annual wellness visit, subsequent SVT (supraventricular tachycardia) Chief Complaint Medicare Wellness Amb Documentation pulled [phone] knee injections Reason for Visit Fatigue Hyperlipidemia Lumbar radiculopathy, chronic Medicare annual wellness visit, subsequent SVT (supraventricular tachycardia) Lumbar radiculopathy, chronic Reason for Referral Reason 01/21/23 Evaluate and Treat Chronic Pain Diagnosis 1 Chronic pain disorde r (G89.4) Diagnosis 2 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) Diagnosis 3 Other chronic pain ( G89.29) Diagnosis 4 Low back pain, unspe cified (M54.50) Referral Organization [facility] urosurgery Referring Provider First Name Leeann Referring Provider Last Name Mariano Referring Provider Specialty Neurologica l Surgery Referred Organization [facility] Referred Provider Albertina Oconnell Referred Address [address] [facility] [place],[address] Referred Provider Specialty Pain Medicin e Referral Priority Routine Referral Appointment Date 2023-01-21 General Notes Klaudia Golden 023 09:03:40 AM >Received today and waiting for office notes to be locked before sending referral [facility] 01/01/2023 07:37:06 AM >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) Referral Organization [facility] u[facility]urgery Referring Provider First Name Leeann Referring Provider Last Name Mariano Referring Provider Specialty Neurologica l Surgery Referred Organization [facility] Referred Provider Samuel Chatman II Referred Address [address] [facility] [place],[address] Referred Provider Specialty Orthopaedic Surgery Referral Priority Routine Referral Appointment Date 2023-01-08 General Notes Klaudia Golden 023 10:20:34 AM >Received today and sent P2P [facility] 01/01/2023 12:05:35 PM >[facility] was scheduled [facility] 01/15/2023 09:30:10 AM >Office notes not locked yet [facility] 01/16/2023 08:43:03 AM >Sent telephone encounter to referring physician to let them know that the consult letter is ready for their review Reason DECLINED lumbar an d knee pain Diagnosis 1 Lumbar pain (M54.50) Referral Organization [facility] Referring Provider First Name Toby Referring Provider Last Name Mariano Referring Provider Specialty Family Medi cine Referred Organization [facility] Referred Provider Paddy De Los Santos Referred Address [address] [place],[address] Referred Provider Specialty Rheumatology Referral Priority Routine [...] section and content) DATE CREATED AUTHOR 09/23/2019 [facility] DATE CREATED AUTHOR AUTHOR'S ORGANIZ ATION 11/04/2019 [facility] DATE CREATED AUTHOR AUTHOR'S ORGANIZ ATION 05/31/2020 [facility] DATE CREATED AUTHOR AUTHOR'S ORGANIZ ATION 12/06/2020 [facility] DATE CREATED AUTHOR AUTHOR'S ORGANIZ ATION 04/21/2021 [facility] DATE CREATED AUTHOR AUTHOR'S ORGANIZ ATION 12/10/2022 [facility] DATE CREATED AUTHOR AUTHOR'S ORGANIZ ATION 01/10/2023 [facility] DATE CREATED AUTHOR AUTHOR'S ORGANIZ ATION 01/17/2023 [facility] DATE CREATED AUTHOR AUTHOR'S ORGANIZ ATION 03/18/2023 [facility] DATE CREATED AUTHOR AUTHOR'S ORGANIZ ATION 06/09/2023 [facility] DATE CREATED AUTHOR AUTHOR'S ORGANIZ ATION 12/12/2023 [facility] Call Center Manager Teams (unrecognized sec tion and content) Team Status: Inactive Member Role Status Dates Toby Quintana MD Primary Care Provider Active Leeann Quintana Attending Provider Active Team Status: Active Member Role Status Dates Toby Quintana MD Primary Care Provider Active Team Status: Inactive Member Role Status Dates Toby Quintana MD Primary Care Provider Active Samuel Chatman II, MD Attending Provider Active Regulatory Product Manager Relationship Specialty Start Date End Date Toby [...] BE BASED ON THE PRIMARY CLINICAL RECORDS. [facility] provides no warranty or guarantee of the accuracy or completeness of information in this document.
--- NOTE | 2024-02-23 06:45 | MR_ITS ---
[address] [address] Patient Name: INDERJIT MANN MRN: [facility]:[id number] date: 1955 Sex: F Assigned Patient Location: MRI Current Patient Location: MRI Accession/Order Number: [id number] Exam Date: 02/23/2024 07:00 Report Date: 02/23/2024 08:33 At the request of: IVETT CONLEY Procedure: MR lumbar spine wo con EXAMINATION: MR lumbar spine wo con HISTORY: Lumbar Back PAin M54.50 COMPARISON: No relevant comparison available. TECHNIQUE: A variety of imaging planes and parameters were utilized for visualization of suspected pathology. FINDINGS: For the purposes of numbering, sagittal T2 image # 9 extends from the T11 vertebral body superiorly to the S3 level inferiorly. PARASPINAL AREA: Normal with no visible mass. BONES: Normal alignment with no acute fracture. 1 mm retrolisthesis L1 on L2. Posterior decompression bilateral transpedicular fusion L2-L4 with resultant susceptibility artifact limiting the evaluation. CORD/CAUDA EQUINA: Normal caliber, contour, and signal intensity. DISC LEVELS: 12-L1: No significant disc/facet abnormality, spinal stenosis, or foraminal stenosis. L1-L2: Moderate disc space narrowing and disc desiccation and endplate sclerosis. Moderate diffuse disc/osteophyte complex with left foraminal disc protrusion extending up to 3 mm. No central canal or right foraminal stenosis. Mild narrowing of the left neural foramen L2-L3: Posterior transpedicular fusion. Severe disc space narrowing. Mild disc/osteophyte complex. No central or foraminal stenosis L3-L4: Posterior transpedicular fusion. Severe disc space narrowing. Mild disc/osteophyte complex. No central or foraminal stenosis L4-L5: Posterior transpedicular fusion. Severe disc space narrowing. Mild disc/osteophyte complex. No central or foraminal stenosis L5-S1: Early degenerative disc disease is present without focal protrusion or neural impingement. MR/MR lumbar spine wo con IMPRESSION: Posterior bilateral transpedicular fusion L2-L4 Degenerative changes with mild narrowing of the left L1-L2 neural foramen Electronically authenticated by: CAITLYN CABRERA Date: 02/23/2024 08:33
--- NOTE | 2024-02-23 07:55 | CT_ITS ---
[address] [address] Patient Name: INDERJIT MANN MRN: [facility]:[id number] date: 1955 Sex: F Assigned Patient Location: MRI Current Patient Location: MRI Accession/Order Number: [id number] Exam Date: 02/23/2024 07:45 Report Date: 02/23/2024 08:41 At the request of: IVETT CONLEY Procedure: CT lumbar spine wo con EXAMINATION: CT lumbar spine wo con HISTORY: Lumbar Back Pain M54.50 COMPARISON: No relevant comparison available. TECHNIQUE: Axial, Coronal, and Sagittal CT images were created without I.V. contrast material. Dose reduction techniques were achieved by using automated exposure control and/or adjustment of mA and/or kV according to patient size and/or use of iterative reconstruction technique. FINDINGS: PARASPINAL AREA: Normal with no visible mass. BONES: 2 mm retrolisthesis of L1 on L2. Posterior decompression bilateral transpedicular fusion with no mechanical failure L2-L4. Moderate diffuse degenerative spondylosis and facet osteoarthropathy are DISC LEVELS: 12-L1: No significant disc/facet abnormality, spinal stenosis, or foraminal stenosis. L1-L2: Disc collapse with endplate sclerosis and vacuum disc. No central canal stenosis. Mild left foraminal stenosis L2-L3: Posterior fusion. Moderate diffuse disc/osteophyte complex. No central or foraminal stenosis L3-L4: Posterior fusion. Moderate diffuse disc/osteophyte complex. No central or foraminal stenosis L4-L5: Posterior fusion. Mild diffuse disc/osteophyte complex. No central or foraminal stenosis L5-S1: Early degenerative disc disease is present without focal protrusion or neural impingement. CT/CT lumbar spine wo con IMPRESSION: Degenerative changes with mild left L1-L2 foraminal stenosis Electronically authenticated by: CAITLYN CABRERA Date: 02/23/2024 08:41
== END 2024-02-23 06:40 | disposition home or self-care (01) ==
LOC: MRI 06:39
PROVIDERS: PCP Family Medicine; Visit Provider Orthopaedic Surgery Orthopaedic Surgery of the Spine
DX: M54.50 Low back pain, unspecified (principal); M51.36 Other intervertebral disc degeneration, lumbar region
CPT/HCPCS: 72131; 72148

== ENCOUNTER 2024-04-26 08:18 | Outpatient (OUT) | payer MEDICARE, SELFPAY ==
--- NOTE | 2024-04-26 | XR_ITS ---
[address] [address] Patient Name: INDERJIT MANN MRN: [id number]:[id number] date: 1955 Sex: F Assigned Patient Location: Current Patient Location: Accession/Order Number: [id number] Exam Date: 04/26/2024 08:18 Report Date: 04/26/2024 16:40 At the request of: SHALA BYERS Procedure: XR knee RT 4V EXAM: XR knee RT 4V, XR knee LT 4V REASON FOR EXAM: Female, 69 years, RIGHT KNEE PAIN. Right knee: TECHNIQUE: 4 views of the right knee are performed. COMPARISON: None. FINDINGS: Normal visualized distal femur. Normal visualized proximal tibia and fibula. Normal proximal tibiofibular articulation. There is no demonstrated fracture. There is severe narrowing of the lateral femorotibial compartment. There is mild joint space narrowing of the medial femorotibial compartment. There is severe joint space narrowing at the patellofemoral joint. There is a small suprapatellar effusion. The soft tissues are unremarkable. Left knee: TECHNIQUE: 4 views of the left knee are performed. COMPARISON: None. FINDINGS: Normal visualized distal femur. Normal visualized proximal tibia and fibula. Normal proximal tibiofibular articulation. There is no demonstrated fracture. There is severe narrowing of the lateral femorotibial compartment. There is mild joint space narrowing of the medial femorotibial compartment. There is moderate joint space narrowing at the patellofemoral joint. There is a small suprapatellar effusion. The soft tissues are unremarkable. XR/XR knee RT 4V IMPRESSION: Degenerative changes within both knees, as described above. Electronically authenticated by: MARCO JOSHUA Date: 04/26/2024 16:40
--- NOTE | 2024-04-26 | XR_ITS ---
[address] [address] Patient Name: INDERJIT MANN MRN: [id number]:[id number] date: 1955 Sex: F Assigned Patient Location: Current Patient Location: Accession/Order Number: [id number] Exam Date: 04/26/2024 08:18 Report Date: 04/26/2024 16:40 At the request of: HSALA BYERS Procedure: XR knee LT 4V EXAM: XR knee RT 4V, XR knee LT 4V REASON FOR EXAM: Female, 69 years, RIGHT KNEE PAIN. Right knee: TECHNIQUE: 4 views of the right knee are performed. COMPARISON: None. FINDINGS: Normal visualized distal femur. Normal visualized proximal tibia and fibula. Normal proximal tibiofibular articulation. There is no demonstrated fracture. There is severe narrowing of the lateral femorotibial compartment. There is mild joint space narrowing of the medial femorotibial compartment. There is severe joint space narrowing at the patellofemoral joint. There is a small suprapatellar effusion. The soft tissues are unremarkable. Left knee: TECHNIQUE: 4 views of the left knee are performed. COMPARISON: None. FINDINGS: Normal visualized distal femur. Normal visualized proximal tibia and fibula. Normal proximal tibiofibular articulation. There is no demonstrated fracture. There is severe narrowing of the lateral femorotibial compartment. There is mild joint space narrowing of the medial femorotibial compartment. There is moderate joint space narrowing at the patellofemoral joint. There is a small suprapatellar effusion. The soft tissues are unremarkable. XR/XR knee LT 4V IMPRESSION: Degenerative changes within both knees, as described above. Electronically authenticated by: MARCO JOSHUA Date: 04/26/2024 16:40
--- OUTSIDE RECORDS SUMMARY | 2024-04-26 08:29 | XMS_ITS | CCD ---
Author Organization [facility] Care Team Providers Care Copyman Name Role Phone Toby Quintana Unavailable Unavailable Unavailable MD Toby Quintana Primary Care Provider Blades, Leeann Attending Provider Unavailable Unavailable Blades, Leeann Unavailable [...] Unavailable QUINTANA, DR TOBY Schofield Admitting Unavailable CONESVILLE, DR CAITLYN Noe Consulting Unavailable QUINTANA, DR [...] Unavailable BLADES, LEEANN Referring Unavailable LAKSHMIPATHY ., NARENDRANATH Admitting Nanda vailable LAKSHMIPATHY ., LASHONDA Attending Nanda vailable QUINTANA, DR TOBY Schofield Admitting Unavailable QUINTANA, DR TOBY Schofield Primary Care Unavailable QUINTANA, DR TOBY Schofield Attending Unavailable QUINTANA, DR TOBY Schofield Consulting Unavailable Quintana, Toby Unavailable MD Samuel Chatman II Attending Provider Blades, Leeann Admitting Unavailable Blades, Leeann Attending Unavailable Toby Quintana Primary Care Unavailable Samuel Chatman II Admitting UnavailSamuel Dubois II Attending UnavailToby Swain Primary Care Unavailable Samuel Chatman II Unavailable ZEESHAN, Dr. EVIN Henning Attending Unavailable Toby Quintana Primary Care Unavaildidier Quintana, Dr. Toby Feliz Primary Care Unav ailable Lore, Dr. Iban Penn Referring Nanda heide Quintana, Dr. Toby Feliz Primary Care Unav ailable Lu, Dr. Iban Penn Attending Toby Romano MD Primary Care Provider [phone] IBAN LU Attending Unavailable TOBY QUINTANA Primary Care Unavailable Allergies Allergy Classification Reported Allergen(s) Allergy Type Date of Onset Reaction(s) Facility (6 sources) Sulfamethoxazole; Translations: [sulfa] Drug Allergy Rash, Swelling [address] Work Phone: (8 sources) Sulfonamides (Antibiotic); Translations: [Sulfa (Sulfonamide Antibiotics)] Allergy to substance 04-08-20 19 Hives, Rash, Swelling [facility] (20 sources) Sulfacetamide / Sulfur Drug Allergy rash [facility] Other (1 source) Morphine Drug Allergy [facility] (1 source) Quinolones (Antibiotic) Drug allergy (disorder) [facility] (2 sources) Sulfonamides (Antibiotic) Drug allergy (disorder) 08-06-20 13 [facility] (12 sources) Acetaminophen / oxyCODONE Drug Allergy 07-28-20 13 Unknown [facility] Other (12 sources) Meperidine Drug Allergy 07-28-20 13 Unknown [facility] Other (13 sources) Quinolones Drug allergy 07-28-20 13 Comment:Fluorq uinolones [facility] Other (13 sources) sulfADIAZINE Drug Allergy Unknown [facility] Other (13 sources) Substance with sulfonamide structure and antibacterial mechanism of action (substance) Drug allergy 07-28-20 13 Unknown [facility] Other (13 sources) Statins Depletion *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 Propensity to adverse reactions 07-28-20 13 Unknown [facility] Other (4 sources) Allergies Reconciled Propensity to adverse reactions Unknown [facility] Other (4 sources) patient allergy list reviewed by nurse or physicia Propensity to adverse reactions 07-15-20 Comment:Done [facility] Other (1 source) Acetaminophen / oxyCODONE Drug Allergy 07-28-20 13 Unknown [facility] Other (1 source) Meperidine Drug Allergy 07-28-20 13 Unknown [facility] Other (3 sources) Sulfacetamide Drug Allergy 12-30-19 24 [facility] Medications Current Medications Medication Drug Class(es) Dates Sig (Normalized) Sig (Original) acetaminophen 325 mg / HYDROcodone bitartrate 5 mg oral tablet (20 sources) Opioid Agonist Start: 08-31-2021 End: 12-09-2023 take 1 tablet by mouth every four hours as needed HYDROcodone-acetami nophen ([place]) 5-325 mg tablet Take 1 tablet by [...] Active 1 MG PO Twice daily 60 March 08, 2024 12:20pm Start: 12-08-2023 take 1 tablet by valentin th twice daily for anxiety, then take 2 tablets by mouth at bedtime for anxiety ALPRAZolam 1 MG TAKE 1 TABLET BY MOUTH TWICE A DAY IF NEEDED FOR ANXIETY AND 2 TABLETS AT BEDTIME for Nov, Active Start: 11-04-2023 take 1 tablet [...] puffs Inhalation Twice a day Active omega 0-hde-dll-fish oil 360 mg-108 mg- 180 mg-1,200 mg capsule (1 source) take 1 capsule by mouth once daily omega 1-mhx-awn-fish oil 360 mg-108 mg- 180 mg-1,200 mg capsule Take 1 capsule by mouth once daily. 0 Active ondansetron 4 mg disintegrating oral tablet (5 sources) Serotonin-3 Receptor Antagonist Start: 02-08-20 take 1 tablet by mouth three times daily as needed Ondansetron 4 MG 1 tablet on the tongue and allow to dissolve Orally tid prn for 10 days Jan, Active pregabalin 50 mg oral capsule (5 sources) take 1 capsule by mouth every twelve hours Lyrica 50 MG 1 capsule Orally Twice a day Active traMADol hydrochloride 50 mg oral tablet (2 sources) Opioid Agonist Start: 09-22-20 take 1 tablet by mouth twice daily as needed traMADol HCl 50 MG 1 tablet as needed Orally bid prn for 30 days Sep, Active Completed/Discontinued Medications Medication Drug Class(es) Dates Sig (Normalized) Sig (Original) acetaminophen 325 mg / oxyCODONE hydrochloride 5 mg oral tablet (3 sources) Opioid Agonist Start: 12-30-2023 End: 01-06-2024 take 1 tablet by mouth every four hours Oxycodone-Acetami nophen Discontinued 1 TAB PO Every 4 hours December 30, 2023 1:00am January 06, 2024 2:13pm DULoxetine 60 mg delayed release oral capsule (5 sources) Serotonin and Norepinephrine Reuptake Inhibitor Start: [...] Amide Local Anesthetic Start: 08-20-2023 Lidocaine Aug, mg Start: 05-08-2023 Lidocaine 29 J un, 2022 30 mg Start: 02-07-2023 Start: 02-07-2023 Lidocaine 31 M ar2022 30 mg naproxen 500 mg oral tablet (5 sources) Nonsteroidal Anti-inflammatory Drug Start: 04-08-2019 End: 12-30-2023 take 500 mg by mouth twice daily Naproxen Discontinued 500 MG PO Twice daily April 08, 2019 12:00am December 30, 2023 11:07am oxyCODONE hydrochloride 5 mg oral tablet (16 sources) Opioid Agonist Start: 01-05-2024 End: 01-06-2024 take 5 mg by mouth every six hours Oxycodone Discontinued 5 MG PO Every 6 hours 06 06January 05, 2024 January 06, 2024 2:13pm Start: 10-24-2023 take 1 tablet by valentin [...] Sep, Active take [address] [facility] every six hours as needed oxyCODONE (Oxy-IR) 5 mg immediate release capsule Take 1 capsule (5 mg) by mouth every 6 hours if needed for severe pain (7 - 10). 0 Active predniSONE 20 mg oral tablet (2 sources) Start: 01-19-2024 End: 02-10-2024 take 20 mg by mouth twice daily Prednisone Discontinued 20 MG PO Twice daily January 19, 2024 12:00am February 10, 2024 1:10pm promethazine hydrochloride 12.5 mg oral tablet (11 sources) Phenothiazine Start: 01-16-2024 End: 02-10-2024 take 12.5 mg by mouth every six hours Promethazine Discontinued 12.5 MG PO Every 6 hours January 16, 2024 1:00am February 10, 2024 1:10pm take 1 tablet by valentin th every six hours as needed Promethazine HCl [...] Apr, Not-Taking tiZANidine 4 mg oral tablet (2 sources) Central alpha-2 Adrenergic Agonist Start: 01-19-2024 End: [...] asthma, uncomplicated] Onset: 5 Chronic Cardiac dysrhythmias (18 sources) EKG: supraventricular tachycardia; Translations: [Paroxysmal supraventricular [...] conjunctivitis, unspecified eye] Episodic Malaise and fatigue (14 sources) Fatigue; Translations: [Other fatigue] Onset: 5 [...] Onset: 2 Episodic Other non-traumatic joint disorders (8 sources) Pain in right knee; Translations: [Right knee pain] Episodic Other non-traumatic joint disorders (8 sources) Pain in left knee; Translations: [Left knee pain] Episodic Other non-traumatic joint disorders (12 sources) [...] 09-12-2014 Episodic Other aftercare (1 source) Other detention (current) drug therapy; Translations: [OTH CARE HOME CURRENT DRUG THERAPY] Onset: 07-23-2022 Episodic Other [...] aPTT Coag (PPP) [Time] 23.5 s 22.3-36.2 [facility] Basophils Auto (Bld) [#/Vol] on 01-14-2024 Basophils (Bld) [#/Vol] 0.1 10 3/uL 0.0-0.1 [facility] Basophils/100 WBC Auto (Bld) on 03-06-2024 Basophils/100 WBC (Bld) 0.5 % 0.2-2.0 [facility] Eosinophils/100 WBC Auto (Bl d)on 01-14-2024 Eosinophils/100 WBC (Bld) 1.3 % 0.9-7.0 [facility] Erythrocyte distribution wid th Auto (RBC) [Ratio]on 01-14-2024 Erythrocyte distribution width (RBC) [Ratio] 13.6 % 11.0-15.0 [facility] Estimated glomerular filtrat ion rate (GFR) non- Americanon 01-14-2024 GFR/1.73 sq M.predicted among non-blacks MDRD (S/P/Bld) [Vol rate/Area] mL/min/{1.73_m2} >=60 [facility] Fibrin D-dimer [Presence] in Platelet poor plasma by Latex agglutinationon 01-14-2024 Fibrin D-dimer LA Ql (PPP) 0.78 mg/L FEU <=0.59 [facility] Comment on above: RESULTS CALLED TO EARL ZUNIGA RN @BY Klaudia Heard 183Increases in D-Dimer concentration observed withthromboembolic events can [...] on 01-14-2024 Globulin (S) [Mass/Vol] 3.9 g/dL [facility] Hematocrit Auto (Bld) [Volum e fraction]on 01-14-2024 Hematocrit (Bld) [Volume fraction] 44.4 % 36.0-48.0 [facility] Hemoglobin [Mass/volume] in Bloodon 01-14-2024 Hemoglobin (Bld) [Mass/Vol] 14.1 g/dL 12.0-16.0 [facility] INR in Platelet poor plasma by Coagulation assayon 01-14-2024 INR Coag (PPP) [Relative time] {INR} [facility] Comment on above: DESIRED INR:2.0-3.0 CONDITIONS NOT LISTED BELOW2.5-3.5 FOR PROSTHETIC HEART VALVE REPLACEMENT2.5-3.5 RECURRENT THROMBOSIS Laboratory - Chemistry and C hemistry - challengeon 01-14-2024 Albumin [Mass/Vol] 2.9 g/dL 3.4-5.0 [facility] ALP [Catalytic activity/Vol] 126 U/L 46-116 [facility] ALT [Catalytic activity/Vol] 36 U/L 14-59 [facility] AST [Catalytic activity/Vol] 24 U/L 15-37 [facility] Bilirubin [Mass/Vol] 0.4 mg/dL 0.2-1.0 [facility] Calcium [Mass/Vol] 8.7 mg/dL 8.5-10.1 [facility] Chloride [Moles/Vol] 109 mmol/L 98-107 [facility] CO2 [Moles/Vol] 30.5 mmol/L 21.0-32.0 [facility] Creatinine [Mass/Vol] 0.77 mg/dL 0.55-1.02 [facility] GFR/1.73 sq M.predicted MDRD (S/P/Bld) [Vol rate/Area] mL/min/{1.73_m2} >=60 [facility] Glucose [Mass/Vol] 108 mg/dL 74-106 [facility] Natriuretic peptide B (Bld) [Mass/Vol] 210.0 pg/mL <=900.0 [facility] Potassium [Moles/Vol] 4.0 mmol/L 3.5-5.1 [facility] Protein [Mass/Vol] 6.8 g/dL 6.4-8.2 [facility] Sodium [Moles/Vol] 141 mmol/L 136-145 [facility] Urea nitrogen [Mass/Vol] 10.0 mg/dL 7.0-18.0 [facility] Urea nitrogen/Creatinine [Mass ratio] 13.0 mg/mg [facility] Laboratory - Hematology and Cell countson 01-14-2024 Immature granulocytes/100 WBC (Bld) 0.3 % 0.0-0.5 [facility] Laboratory - Microbiology an d Antimicrobial susceptibilityon 01-14-2024 SARS-CoV-2 (COVID-19) RNA DAVID+probe Ql (Unsp spec) Negative NEGATIVE [facility] Comment on above: This test has [...] diagnosis of Covid-19 under section 564(b)(1) of the[facility], 21 [place]. 360bbb-3(b)(1), unless the declaration isterminated or authorization is revoked sooner. Leukocytes [#/volume] correc wanda for nucleated erythrocytes in Blood by Automated counon 01-14-2024 WBC corrected for nucl RBC Auto (Bld) [#/Vol] 9.2 10 3/uL 4.0-11.0 [facility] Lymphocytes Auto (Bld) [#/Vo l]on 01-14-2024 Lymphocytes (Bld) [#/Vol] 1.9 10 3/uL 1.2-3.8 [facility] Lymphocytes/100 WBC Auto (Bl d)on 01-14-2024 Lymphocytes/100 WBC (Bld) 20.3 % 20.5-60.0 [facility] MCH Auto (RBC) [Entitic mass ]on 01-14-2024 MCH (RBC) [Entitic mass] 28.4 pg 26.7-34.0 [facility] MCHC Auto (RBC) [Mass/Vol]on 01-14-2024 MCHC (RBC) [Mass/Vol] 31.8 g/dL 29.9-35.2 [facility] MCV Auto (RBC) [Entitic vol] on 03-06-2024 MCV (RBC) [Entitic vol] 89.5 fL 81.0-99.0 [facility] Monocytes Auto (Bld) [#/Vol] on 01-14-2024 Monocytes (Bld) [#/Vol] 0.8 10 3/uL 0.3-0.8 [facility] Monocytes/100 WBC Auto (Bld) on 01-14-2024 Monocytes/100 WBC (Bld) 8.5 % 1.7-12.0 [facility] Neutrophils Auto (Bld) [#/Vo l]on 01-14-2024 Neutrophils (Bld) [#/Vol] 6.3 10 3/uL 1.4-6.5 [facility] Neutrophils/100 WBC Auto (Bl d)on 01-14-2024 Neutrophils/100 WBC (Bld) 69.1 % 43.0-75.0 [facility] No Panel Informationon 01-13 Troponin I High Sensitivity 6.8 pg/mL 4.0-51.3 [facility] Comment on above: CUT-OFF POINTS HAVE [...] INFORMATION. Bedside Influenza Type A Antigen Negative [facility] Comment on above: Negative for Flu A p rotein antigen. Infection due to Flu Acannot be ruled out. Flu A antigen in the sample may bebelow the detection limit of the test. Bedside Influenza Type B Antigen Negative [facility] Comment on above: Negative for Flu B p rotein antigen. Infection due to Flu Bcannot be ruled out. Flu B antigen in the sample may bebelow the detection limit of the test. Eosinophils # (Auto) 0.1 10 3/uL 0.0-0.7 [facility] Immature Granulocyte # (Auto) 0.03 10 3/uL 0.00-0.03 [facility] Platelet mean volume Auto (B ld) [Entitic vol]on 01-14-2024 Platelet mean volume (Bld) [Entitic vol] 9.4 fL 9.5-13.5 [facility] Platelets Auto (Bld) [#/Vol] on 01-14-2024 Platelets (Bld) [#/Vol] 238 10 3/uL 150-450 [facility] Prothrombin time (PT)on PT Coag (PPP) [Time] 9.3 s 9.0-11.6 [facility] RBC Auto (Bld) [#/Vol]on RBC (Bld) [#/Vol] 4.96 10 6/uL 4.20-5.40 [facility] Serum or plasma albumin/glob ulin mass ratioon 01-14-2024 Albumin/Globulin [Mass ratio] 0.7 {ratio} [facility] Serum or plasma anion gap de terminationon 01-14-2024 Anion gap [Moles/Vol] 5.5 mmol/L [facility] Basophils Auto (Bld) [#/Vol] on 12-30-2023 Basophils (Bld) [#/Vol] 0.1 10 3/uL 0.0-0.1 [facility] Basophils/100 WBC Auto (Bld) on 12-30-2023 Basophils/100 WBC (Bld) 0.6 % 0.2-2.0 [facility] Cholesterol in LDL Calc [Mas s/Vol]on 12-30-2023 Cholesterol in LDL [Mass/Vol] 149.0 mg/dL [facility] Comment on above: <100 mg/dl [id number] 0-129 mg/dl NEAR OR ABOVE [id number] mg/dl BORDERLINE [id number] mg/dl HIGH>190 mg/dl VERY HIGH Cholesterol in VLDL Calc [Ma ss/Vol]on 12-30-2023 Cholesterol in VLDL [Mass/Vol] 18.6 mg/dL [facility] Eosinophils/100 WBC Auto (Bl d)on 12-30-2023 Eosinophils/100 WBC (Bld) 1.8 % 0.9-7.0 [facility] Erythrocyte distribution wid th Auto (RBC) [Ratio]on 12-30-2023 Erythrocyte distribution width (RBC) [Ratio] 13.2 % 11.0-15.0 [facility] Estimated glomerular filtrat ion rate (GFR) non- Americanon 12-30-2023 GFR/1.73 sq M.predicted among non-blacks MDRD (S/P/Bld) [Vol rate/Area] mL/min/{1.73_m2} >=60 [facility] Globulin Calc (S) [Mass/Vol] on 12-30-2023 Globulin (S) [Mass/Vol] 3.8 g/dL [facility] Hematocrit Auto (Bld) [Volum e fraction]on 12-30-2023 Hematocrit (Bld) [Volume fraction] 46.8 % 36.0-48.0 [facility] Hemoglobin [Mass/volume] in Bloodon 12-30-2023 Hemoglobin (Bld) [Mass/Vol] 14.7 g/dL 12.0-16.0 [facility] Laboratory - Chemistry and C hemistry - challengeon 12-30-2023 Albumin [Mass/Vol] 3.0 g/dL 3.4-5.0 [facility] ALP [Catalytic activity/Vol] 88 U/L 46-116 [facility] ALT [Catalytic activity/Vol] 23 U/L 14-59 [facility] AST [Catalytic activity/Vol] 20 U/L 15-37 [facility] Bilirubin [Mass/Vol] 0.5 mg/dL 0.2-1.0 [facility] Calcium [Mass/Vol] 9.2 mg/dL 8.5-10.1 [facility] Chloride [Moles/Vol] 107 mmol/L 98-107 [facility] Cholesterol [Mass/Vol] 224 mg/dL <=200 [facility] Cholesterol in HDL [Mass/Vol] 57 mg/dL 40-60 [facility] Comment on above: > or =60 mg/dl - LOW CARDIOVASCULAR RISK<40 mg/dl - HIGH CARDIOVASCULAR RISK CO2 [Moles/Vol] 31.1 mmol/L 21.0-32.0 [facility] Creatinine [Mass/Vol] 0.72 mg/dL 0.55-1.02 [facility] GFR/1.73 sq M.predicted MDRD (S/P/Bld) [Vol rate/Area] mL/min/{1.73_m2} >=60 [facility] Glucose [Mass/Vol] 100 mg/dL 74-106 [facility] Potassium [Moles/Vol] 4.5 mmol/L 3.5-5.1 [facility] Protein [Mass/Vol] 6.8 g/dL 6.4-8.2 [facility] Sodium [Moles/Vol] 145 mmol/L 136-145 [facility] Triglyceride [Mass/Vol] 93 mg/dL <=150 [facility] TSH Qn 2.655 m[IU]/L 0.358-3.740 [facility] Urea nitrogen [Mass/Vol] 9.0 mg/dL 7.0-18.0 [facility] Urea nitrogen/Creatinine [Mass ratio] 12.5 mg/mg [facility] Laboratory - Hematology and Cell countson 12-30-2023 Immature granulocytes/100 WBC (Bld) 0.2 % 0.0-0.5 [facility] Leukocytes [#/volume] correc wanda for nucleated erythrocytes in Blood by Automated counon 12-30-2023 WBC corrected for nucl RBC Auto (Bld) [#/Vol] 8.7 10 3/uL 4.0-11.0 [facility] Lymphocytes Auto (Bld) [#/Vo l]on 12-30-2023 Lymphocytes (Bld) [#/Vol] 1.8 10 3/uL 1.2-3.8 [facility] Lymphocytes/100 WBC Auto (Bl d)on 12-30-2023 Lymphocytes/100 WBC (Bld) 20.4 % 20.5-60.0 [facility] MCH Auto (RBC) [Entitic mass ]on 12-30-2023 MCH (RBC) [Entitic mass] 28.6 pg 26.7-34.0 [facility] MCHC Auto (RBC) [Mass/Vol]on 12-30-2023 MCHC (RBC) [Mass/Vol] 31.4 g/dL 29.9-35.2 [facility] MCV Auto (RBC) [Entitic vol] on 12-30-2023 MCV (RBC) [Entitic vol] 91.1 fL 81.0-99.0 [facility] Monocytes Auto (Bld) [#/Vol] on 12-30-2023 Monocytes (Bld) [#/Vol] 0.7 10 3/uL 0.3-0.8 [facility] Monocytes/100 WBC Auto (Bld) on 12-30-2023 Monocytes/100 WBC (Bld) 7.5 % 1.7-12.0 [facility] Neutrophils Auto (Bld) [#/Vo l]on 12-30-2023 Neutrophils (Bld) [#/Vol] 6.0 10 3/uL 1.4-6.5 [facility] Neutrophils/100 WBC Auto (Bl d)on 12-30-2023 Neutrophils/100 WBC (Bld) 69.5 % 43.0-75.0 [facility] No Panel Informationon 12-30 Eosinophils # (Auto) 0.2 10 3/uL 0.0-0.7 [facility] Immature Granulocyte # (Auto) 0.02 10 3/uL 0.00-0.03 [facility] Platelet mean volume Auto (B ld) [Entitic vol]on 12-30-2023 Platelet mean volume (Bld) [Entitic vol] 9.3 fL 9.5-13.5 [facility] Platelets Auto (Bld) [#/Vol] on 12-30-2023 Platelets (Bld) [#/Vol] 199 10 3/uL 150-450 [facility] RBC Auto (Bld) [#/Vol]on RBC (Bld) [#/Vol] 5.14 10 6/uL 4.20-5.40 [facility] Serum or plasma albumin/glob ulin mass ratioon 12-30-2023 Albumin/Globulin [Mass ratio] 0.8 {ratio} [facility] Serum or plasma anion gap de terminationon 12-30-2023 Anion gap [Moles/Vol] 11.4 mmol/L [facility] Serum or plasma total choles terol/high density lipoprotein (HDL) cholesterol mass la 12-30-2023 Cholesterol.total/Ch olesterol in HDL [Mass ratio] 3.9 {ratio} [facility] Comment on above: 3.3 - 4.4 LOW RISK4. 4 - 7.1 AVERAGE RISK7.1 - 11.0 MODERATE RISK>11.0 HIGH RISK XR hip LT min 2V(w/wo pelvis )*on 01-08-2023 XR hip LT min 2V(w/wo pelvis)* [place] [id number] XRay Report Signed Patient: Adriana Dinero I MR#: [id number] : 1955 Acct:[id number] Age/Sex: 67 / F ADM Date: 01/08/23 Loc: [facility] Room: Type: [facility] Attending Dr: Samuel Chatman II, [...] Pop Jr., D.OOdessa01/08/2023 1:22 PM Dictation Location: [place] [address] Transcribed By: [facility] 01/08/23 1322 Dictated By: [place] Pop Jr, DO 01/08/23 1321 Signed By: 01/08/23 1322 Normal [facility] XR hip LT min 2V(w/wo pelvis)* [facility] [email or web address] Other XR hip LT min 2V(w/wo pelvis)* [facility] [email or web address] Other XR hip LT min 2V(w/wo pelvis)* [address] [place] [address] [email or web address] Other XR hip LT min 2V(w/wo pelvis)* [place] [id number] [facility] Other XR hip LT min 2V(w/wo pelvis)* XRay Report [facility] Other XR hip LT min 2V(w/wo pelvis)* Signed [facility] Other XR hip LT min 2V(w/wo pelvis)* Patient: Adriana Dinero I MR#: [id number] [facility] Other XR hip LT min 2V(w/wo pelvis)* 056 [facility] Other XR hip LT min 2V(w/wo pelvis)* : 1955 Acct:[id number] [facility] Other XR hip LT min 2V(w/wo pelvis)* Age/Sex: 67 / F ADM Date: 01/08/23 [facility] Other XR hip LT min 2V(w/wo pelvis)* Loc: [facility] Room: Type: [facility] Other XR hip LT min 2V(w/wo pelvis)* Attending Dr: Samuel Chatman II, MD [facility] Other XR hip LT min 2V(w/wo pelvis)* Copies to: Samuel Chatman MD [facility] Other XR hip LT min 2V(w/wo pelvis)* Ordering Provider: Samuel Chatman MD [facility] Other XR hip LT min 2V(w/wo pelvis)* Date of Service: 01/08/23 [facility] Other XR hip LT min 2V(w/wo pelvis)* XR/XR hip LT min 2V(w/wo pelvis)*: Left hip pain [facility] Other XR hip LT min 2V(w/wo pelvis)* LEFT HIP - 2 views: [facility] Other XR hip LT min 2V(w/wo pelvis)* CLINICAL HISTORY: Left hip pain for months. [facility] Other XR hip LT min 2V(w/wo pelvis)* COMPARISON: Hip series 11/22/2022 [facility] Other XR hip LT min 2V(w/wo pelvis)* FINDINGS: Mild degenerative changes of both hips without acute bony process. [facility] Other XR hip LT min 2V(w/wo pelvis)* XR/XR hip LT min 2V(w/wo pelvis)* [facility] Other XR hip LT min 2V(w/wo pelvis)* IMPRESSION: [facility] Other XR hip LT min 2V(w/wo pelvis)* MILD DEGENERATIVE CHANGES OF BOTH HIPS WITHOUT ACUTE BONY PROCESS.. [facility] Other XR hip LT min 2V(w/wo pelvis)* Impression dictated by: Montana Pop Jr., MiguelOOdessa01/08/2023 1:22 PM [facility] Other XR hip LT min 2V(w/wo pelvis)* Dictation Location: [place] [address] [facility] Other XR hip LT min 2V(w/wo pelvis)* Transcribed By: VALERIE 01/08/23 1322 [facility] Other XR hip LT min 2V(w/wo pelvis)* Dictated By: Montana Pop Jr, DO 01/08/23 1321 [facility] Other XR hip LT min 2V(w/wo pelvis)* Signed By: [facility] Other XR hip LT min 2V(w/wo pelvis)* 01/08/23 1322 [facility] Other Office Visit (Cardiology)on 12-09-2022 Follow-up visit [...] and provided the patient with 2 local success coach in town. ASSESSMENT AND PLAN: 1. Supraventricular [...] follow-up will be scheduled Iban Lu MD, [facility] Surgical History Problems History of [...] Recorded: 09Dec2022 01:25PM Heart Rate78, L Radial [id number], LUE, Sitting [id number], LUE, Sitting Height5 ft 6 in Anoljz671 lb BMI Mkafbybzti59.03 kg/m2 BSA Calculated2.19 Tobacco Useb) No PHQ-2 [...] more fall s in the last year [facility] 250 DO Work Phone: Tobacco use status CPHS b) No [facility] 250 DO Work Phone: Tobacco Screening. Yes [facility] 250 DO Work Phone: XR hip BI w [id number] 11-22-19 XR hip BI w PEL1V [facility] [place] [address] [place] [address] XRay Report Signed Patient: Adriana Dinero I MR#: [id number] : 1955 Acct:[id number] Age/Sex: 67 / F ADM Date: 11/22/22 Loc: XD Room: Type: [facility] Attending Dr: Leeann Quintana Copies [...] Pop Jr., D.O.11/22/2022 1:12 PM Dictation Location: [place] [address] Transcribed By: [facility] 11/22/22 1312 Dictated By: [place] Pop Jr 11/22/22 1311 Signed By: 11/22/22 1312 [facility] XR lumbar spine AP/LAT/FLX/E XTon 11-22-2022 XR lumbar spine AP/LAT/FLX/EXT [facility] [place] [address] [place], [place] [id number] XRay Report Signed Patient: Adriana Dinero I MR#: [id number] : 1955 Acct:[id number] Age/Sex: 67 / F ADM Date: 11/22/22 Loc: XD Room: Type: [facility] Attending Dr: Leeann Quintana Copies [...] Pop Jr., D.O.11/22/2022 1:11 PM Dictation Location: [place] [address] Transcribed By: [facility] 11/22/22 1311 Dictated By: [place] Pop Jr, DO 11/22/22 1309 Signed By: 11/22/22 1311 [facility] CREATININEon 10-04-2022 Creatinine [Mass/Vol] 0.75 mg/dL Normal 0.55-1.02 [facility] Comment on above: Performed By: #### C CARLOS #### [facility] [address] [place] [address] [address] Henrietta Zavala EGFR-AF SRI LANKAN >60 Normal >=60 [facility] Comment on above: Performed By: #### C CARLOS #### [facility] [address] [place] [address] [address] Henrietta Zavala EGFR-NON AF SRI LANKAN >60 Normal >=60 [facility] Comment on above: Performed By: #### C CARLOS #### [facility] [address] [place], [place] [id number] Dr. Henrietta Zavala MRI LSPINE WO W [...] SHALA OMER Date: 2022-10-04 11:19 Normal [facility] Covid-19 PCR ([facility])on 07-11 SARS-CoV-2 (COVID-19) RNA DAVID+probe Ql (Unsp spec) Not detected Normal NOT DETECTED [facility] Comment on above: Result Comment: This test is not yet approved or cleared by the [place] FDA. When there are no FDA-approved or cleared tests available, and other criteria are met, FDA can make tests available under an emergency access mechanism called an Emergency Use Authorization (EUA). The EUA for this test is supported by the [employer] of Health and Human Service's (HHS's) declaration [...] consistent with SARS-CoV-2. Performed By: #### [facility] #### [facility] [address] [place] [address] Dr. Henrietta Zavala XR HIPS JI 3_4V [...] CAITLYN CABRERA Date: 2022-04-15 07:00 Normal [facility] XR TSPINE 3 VIEWSon 04-15-20 22 XR TSPINE 3 VIEWS EXAMINATION: XR TSPI [...] CAITLYN CABRERA Date: 2022-04-15 07:03 Normal [facility] CBC AUTO DIFFon 04-12-2022 BASO # 0.1 103/ul Normal 0.0-0.1 [facility] Comment on above: Performed By: #### C BC #### [facility] [address] [place] [address] Dr. Henrietta Zavala Basophils/100 WBC (Bld) 0.4 % Normal 0.2-2.0 [facility] Comment on above: Performed By: #### C BC #### [facility] [address] [place] [address] Dr. Henrietta Zavala EO # 0.1 103/ul Normal 0.0-0.7 [facility] Comment on above: Performed By: #### C BC #### [facility] [address] [place] [address] Dr. Henrietta Zavala Eosinophils/100 WBC (Bld) 0.4 % Critically low 0.9-7.0 [facility] Comment on above: Performed By: #### C BC #### [facility] [address] [place] [address] Dr. Henrietta Zavala Erythrocyte distribution width (RBC) [Ratio] 14.1 % Normal 11.0-15.0 [facility] Comment on above: Performed By: #### C BC #### [facility] [address] [place] [address] Dr. Henrietta Zavala Hematocrit (Bld) [Volume fraction] 44.9 % Normal 36.0-48.0 [facility] Comment on above: Performed By: #### C BC #### [facility] [address] [place] [address] Dr. Henrietta Zavala Hemoglobin (Bld) [Mass/Vol] 14.2 g/dL Normal 12.0-16.0 [facility] Comment on above: Performed By: #### C BC #### [facility] [address] [place] [address] Dr. Henrietta Zavala IG # 0.06 10e3/ul Critically high 0.00-0.03 [place] Comment on above: Performed By: #### C BC #### [facility] [address] [place] [address] Dr. Henrietta Zavala IG % 0.5 % Normal 0.0-0.5 [facility] Comment on above: Performed By: #### C BC #### [facility] [address] [place] [address] Dr. Henrietta Zavala LYMPH # 2.2 103/ul Normal 1.2-3.8 [facility] Comment on above: Performed By: #### C BC #### [facility] [address] [place] [address] Dr. Henrietta Zavala Lymphocytes/100 WBC (Bld) 19.4 % Critically low 20.5-60.0 [facility] Comment on above: Performed By: #### C BC #### [facility] [address] [place] [address] Dr. Henrietta Zavala MANUAL DIFF REQ NO Normal [facility] Comment on above: Performed By: #### C BC #### [facility] [address] [place] [address] Dr. Henrietta Zavala MCH (RBC) [Entitic mass] 27.5 pg Normal 26.7-34.0 [facility] Comment on above: Performed By: #### C BC #### [facility] [address] [place] [address] Dr. Henrietta Zavala MCHC (RBC) [Mass/Vol] 31.6 g/dL Normal 29.9-35.2 [facility] Comment on above: Performed By: #### C BC #### [facility] [address] [place] [address] Dr. Henrietta Zavala MCV (RBC) [Entitic vol] 86.8 fL Normal 81.0-99.0 [facility] Comment on above: Performed By: #### C BC #### [facility] [address] [place] [address] Dr. Henrietta Zavala MONO # 0.9 103/ul Critically high 0.3-0.8 [facility] Comment on above: Performed By: #### C BC #### [facility] [address] [place] [address] Dr. Henrietta Zavala Monocytes/100 WBC (Bld) 7.9 % Normal 1.7-12.0 [facility] Comment on above: Performed By: #### C BC #### [facility] [address] [place] [address] Dr. Henrietta Zavala NEUT # 8.1 103/ul Critically high 1.4-6.5 [facility] Comment on above: Performed By: #### C BC #### [facility] [address] [place] [address] Dr. Henrietta Zavala Neutrophils/100 WBC (Bld) 71.4 % Normal 43.0-75.0 [facility] Comment on above: Performed By: #### C BC #### [facility] [address] [place] [address] Dr. Henrietta Zavala Platelet mean volume (Bld) [Entitic vol] 9.7 fL Normal 9.5-13.5 [facility] Comment on above: Performed By: #### C BC #### [facility] [address] [place] [address] Dr. Henrietta Zavala PLT 284 103/ul Normal 150-450 [facility] Comment on above: Performed By: #### C BC #### [facility] [address] [place] [address] Dr. Henrietta Zavala RBC 5.17 106/ul Normal 4.20-5.40 [facility] Comment on above: Performed By: #### C BC #### [facility] [address] [place] [address] Dr. Henrietta Zavala WBC 11.3 103/ul Critically high 4.0-11.0 [facility] Comment on above: Performed By: #### C BC #### [facility] [address] [place], [place] [address] Dr. Henrietta Zavala LIPID PROFILEon 04-12-2022 CHOL-HDL RATIO NORM SEE BELOW Normal [facility] Comment on above: Result Comment: 3.3 - 4.4 LOW RISK 4.4 - 7.1 AVERAGE RISK 7.1 - 11.0 MODERATE RISK >11.0 HIGH RISK Performed By: #### C MP, LIPID #### [facility] [address] [place], [place] [address] Dr. Henrietta Zavala Cholesterol [Mass/Vol] 235 mg/dL Critically high <=200 [facility] Comment on above: Performed By: #### C MP, LIPID #### [facility] [address] [place], [place] [address] Dr. Henrietta Zavala Cholesterol in HDL [Mass/Vol] 47 mg/dL Normal 40-60 [facility] Comment on above: Performed By: #### C MP, LIPID #### [facility] [address] [place], [place] [address] Dr. Henrietta Zavala Cholesterol in LDL [Mass/Vol] 160.8 mg/dL Normal [facility] Comment on above: Performed By: #### C MP, LIPID #### [facility] [address] [place], [place] [address] Dr. Henrietta Zavala Cholesterol.total/Ch olesterol in HDL [Mass ratio] 5.0 {ratio} Normal [facility] Comment on above: Performed By: #### C MP, LIPID #### [facility] [address] [place], [place] [address] Dr. Henrietta Zavala HDL NORMAL > or = 60 mg/dl - LO W CARDIOVASCULAR RISK <40 mg/dl - HIGH CARDIOVASCULAR RISK Normal [facility] Comment on above: Performed By: #### C MP, LIPID #### [facility] [address] [place], [place] [address] Dr. Henrietta Zavala LDL CALC NORMAL SEE BELOW Normal [facility] Comment on above: Result Comment: <100 mg/dl OPTIMAL 100 - 129 mg/dl NEAR OR ABOVE OPTIMAL 130 - 159 mg/dl BORDERLINE HIGH 160 - 189 mg/dl HIGH >190 mg/dl VERY HIGH Performed By: #### C MP, LIPID #### [facility] [address] [place] [address] Dr. Henrietta Zavala Triglyceride [Mass/Vol] 136 mg/dL Normal <=150 [facility] Comment on above: Performed By: #### C MP, LIPID #### [facility] [address] [place] [address] Dr. Henrietta Zavala VLDL CALC 27.2 mg/dL Normal [facility] Comment on above: Performed By: #### C MP, LIPID #### [facility] [address] [place] [address] Dr. Henrietta Zavala PROF 14(COMP METB)on 022 Albumin [Mass/Vol] 3.2 g/dL Critically low 3.4-5.0 [facility] Comment on above: Performed By: #### C MP, LIPID #### [facility] [address] [place] [address] Dr. Henrietta Zavala Albumin/Globulin [Mass ratio] 0.8 {ratio} Normal [facility] Comment on above: Performed By: #### C MP, LIPID #### [facility] [address] [place] [address] Dr. Henrietta Zavala ALP [Catalytic activity/Vol] 127 U/L Critically high 46-116 [facility] Comment on above: Performed By: #### C MP, LIPID #### [facility] [address] [place] [address] Dr. Henrietta Zavala ALT [Catalytic activity/Vol] 55 U/L Normal 14-59 [facility] Comment on above: Performed By: #### C MP, LIPID #### [facility] [address] [place] [address] Dr. Henrietta Zavala Anion gap [Moles/Vol] 13.6 mmol/L Normal [facility] Comment on above: Performed By: #### C MP, LIPID #### [facility] [address] [place] [address] Dr. Henrietta Zavala AST [Catalytic activity/Vol] 24 U/L Normal 15-37 [facility] Comment on above: Performed By: #### C MP, LIPID #### [facility] [address] [place] [address] Dr. Henrietta Zavala Bilirubin [Mass/Vol] 0.3 mg/dL Normal 0.2-1.0 [facility] Comment on above: Performed By: #### C MP, LIPID #### [facility] [address] [place] [address] Dr. Henrietta Zavala Calcium [Mass/Vol] 8.8 mg/dL Normal 8.5-10.1 [facility] Comment on above: Performed By: #### C MP, LIPID #### [facility] [address] [place] [address] Dr. Henrietta Zavala Chloride [Moles/Vol] 107 mmol/L Normal 98-107 [facility] Comment on above: Performed By: #### C MP, LIPID #### [facility] [address] [place] [address] Dr. Henrietta Zavala CO2 [Moles/Vol] 25.6 mmol/L Normal 21.0-32.0 [facility] Comment on above: Performed By: #### C MP, LIPID #### [facility] [address] [place] [address] Dr. Henrietta Zavala Creatinine [Mass/Vol] 0.77 mg/dL Normal 0.55-1.02 [facility] Comment on above: Performed By: #### C MP, LIPID #### [facility] [address] [place] [address] Dr. Henrietta Zavala EGFR-AF SRI LANKAN >60 Normal >=60 [facility] Comment on above: Performed By: #### C MP, LIPID #### [facility] [address] [place] [address] Dr. Henrietta Zavala EGFR-NON AF SRI LANKAN >60 Normal >=60 [facility] Comment on above: Performed By: #### C MP, LIPID #### [facility] [address] [place] [address] Dr. Henrietta Zavala Globulin (S) [Mass/Vol] 3.8 g/dL Normal [facility] Comment on above: Performed By: #### C MP, LIPID #### [facility] [address] [place] [address] [address] Henrietta Zavala Glucose [Mass/Vol] 90 mg/dL Normal 74-106 [facility] Comment on above: Performed By: #### C MP, LIPID #### [facility] [address] [place] [address] [address] Henrietta Zavala Potassium [Moles/Vol] 4.2 mmol/L Normal 3.5-5.1 [facility] Comment on above: Performed By: #### C MP, LIPID #### [facility] [address] [place] [address] [address] Henrietta Zavala Protein [Mass/Vol] 7.0 g/dL Normal 6.4-8.2 [facility] Comment on above: Performed By: #### C MP, LIPID #### [facility] [address] [address] [address] Henrietta Zavala Sodium [Moles/Vol] 142 mmol/L Normal 136-145 [facility] Comment on above: Performed By: #### C MP, LIPID #### [facility] [address] [place] [address] [address] Henrietta Zavala Urea nitrogen [Mass/Vol] 13.0 mg/dL Normal 7.0-18.0 [facility] Comment on above: Performed By: #### C MP, LIPID #### [facility] [address] [place] [address] [address] Henrietta Zavala Urea nitrogen/Creatinine [Mass ratio] 16.9 mg/mg Normal [facility] Comment on above: Performed By: #### C MP, LIPID #### [facility] [address] [address] [address] Henrietta Zavala Tobacco Screening.on 021 Fall risk assessment a) No falls within the last year [facility] 250 DO Work Phone: Tobacco use status CP b) No -[facility] 250 DO Work Phone: KNEE LEFT 3 VWSon 03-30-2021 KNEE LEFT 3 [facility] Department of Radiology [address] [place] [address] ======== Patient Name: ADRIANA RAYGOZA : 1955 Sex: F Age: Race: White Pt. Location: Patient Status: Ordered Date: 03/30/2021 9:00:00 AM Completed Date: 03/30/2021 09:07 AM Requesting Provider: RAMANDEEP PATEL Attending Provider: Report Copy To: Signs & Symptoms: M25.562 Pain in left knee I10 History: [place] Comments: , , , Ordering Provider - RAMANDEEP PATEL MD , Exam: KNEE LEFT 3 [facility] ======== KNEE LEFT 3 [facility] 03/30/2021 9:07 AM CLINICAL INDICATIONS: M25.562 [...] but no acute findings. Electronically signed: Jesse Ebrahim. Transcribed by: [email or web address], User Resident: Electronically Signed by: JESSE LAZARO @ 03/30/2021 11:00 AM Normal [facility] Comment on above: Order Comment: , , = ========= , Ordering Provider - RAMANDEEP PATEL MD , KNEE RIGHT 3 [facility] 1 KNEE RIGHT 3 [facility] Department of Radiology [address] [place] [id number] ======== Patient Name: ADRIANA RAYGOZA : 1955 Sex: F Age: Race: White Pt. Location: Patient Status: O Ordered Date: 03/30/2021 9:05:00 AM Completed Date: 03/30/2021 09:07 AM Requesting Provider: RAMANDEEP PATEL Attending Provider: RAMANDEEP PATEL Report Copy To: Signs & Symptoms: M25.569 Pain in unspecified knee I10 History: [place] Comments: Evaluate Exam: KNEE RIGHT 3 [facility] ======== CLINICAL INFORMATION: Chronic right knee [...] reports Electronically signed: Jesse Lazaro. Transcribed by: [email or web address], User Resident: SHALA EATON Electronically Signed by: JESSE LAZARO @ 03/30/2021 03:52 PM I personally read this/these film(s) with this resident Normal [facility] Comment on above: Order Comment: Evalu ate MRI LUMBAR SP W & WO CONTRAS Ton 10-11-2020 MRI LUMBAR SP W & WO CONTRAST STUDY: MRI LUMBAR SP W WO CONTRAST; 10/11/2020 11:35 am INDICATION: POST LAMINECTOMY SYNDROME. COMPARISON: None. ACCESSION NUMBER(S): [id number] ORDERING CLINICIAN: Denis Donohue TECHNIQUE: The lumbar [...] osteomyelitis. * THIS EXAMINATION WAS INTERPRETED AT [facility] Normal [facility] LUMB SP COMP W FLEX/EXT 6 VW Son 09-12-2020 LUMB SP COMP W FLEX/EXT 6 VWS STUDY: LUMB SP COMP W FLEX/EXT 6 VWS ; ; 09/12/2020 8:45 am INDICATION: PAIN. COMPARISON: None. ACCESSION NUMBER(S): [id number] ORDERING CLINICIAN: Denis Donohue FINDINGS: Status post [...] neural foraminal stenosis at L5-S1 level. Normal [facility] Ambulatory Clinical Summaryo n 05-22-2020 Ambulatory Clinical Summary {[id number] }[id number] Normal [facility] Coding Summary.on 05-10-2020 Coding Summary. CODING DATE: 05/10/2020 FINAL [facility] STATUS: Home (Routine DC) PAYOR: [...] Date Saved: 05/10/2020 04:39 pm [facility] Coding Summary.on 05-08-2020 Coding Summary. CODING DATE: 05/08/2020 FINAL [facility] STATUS: Home (Routine DC) PAYOR: [...] Date Saved: 05/08/2020 12:00 pm [facility] IntraOperative Documentson 0 05-08-2020 IntraOperative Documents [id number]. 00CD:127 [facility] Postoperative Documentson Postoperative Documents [id number]#1.0 0CD:127 [facility] Coding Summary.on 05-04-2020 Coding Summary. CODING DATE: 05/04/2020 FINAL [facility] STATUS: Home (Routine DC) PAYOR: [employer] APC DESCRIPTION 5301 Level 1 Upper GI Procedures ADMIT DX: REASON FOR VISIT DX: R10.13 Epigastric pain FINAL DX: PRINCIPAL: K29.50 Unspecified chronic gastritis without bleeding SECONDARY: K25.9 Gastric ulcer, unspecified as acute or chronic, without hemorrhage or perforation R11.2 Nausea with vomiting, unspecified PYMT PROC APC STAT DESCRIPTION DOCTOR NAME DATE [id number] Reid CLINE MD 05/01/2020 phagogastroduodenoscop y, flexible, transoral; with biopsy, single or multiple [id number] Anesthesia for upper Elliot Tena Jr, DO [...] Date Saved: 05/04/2020 03:45 pm [facility] Progress Note-Physicianon Progress Note-Physician Patient: ADRIANA [...] Cardiovascular: Regular rhythm. Neurologic: Alert, Oriented. Plan [place] [employer]esthesi[employer] (ASA) physical status classification: Class II. Anesthetic Preoperative Plan Anesthesia: General. . Anesthetic plan, risks, benefits, and alternatives discussed with the patient and/or family. Communication: face to face with (patient 5 minutes, Patient educated on smoking cesstation). Normal [facility] Comment on above: Result Comment: Elec tronically Signed By: Darinel Matias DO, Elliot Khan\.diogo\Date and Time Signed: 05/03/20 09:34 EDT Main [facility] Intraoperative Recor don 05-02-2020 Main OR Intraoperative Record IntraOp Document Type FT Summary Primary Physician: Reid NIEVES MD Finalized Date/Time: 05/02/20 13:35:19 Pt. Name: ADRIANA DINERO/Sex: 1955 Female Med Rec #: [id number] Physician: Reid NIEVES MD Financial #: [id number] Pt. Type: O Room/Bed: / Admit/Disch: 05/01/20 07:03:44 - 05/01/20 23:59:59 Institution: Case Times FT Entry 1 Patient Times In Room 05/01/20 08:17:00 Out Room 05/01/20 08:25:00 Procedure Times Start 05/01/20 08:21:00 Stop 05/01/20 08:23:00 Anesthesia Times Start 05/01/20 08:17:00 Stop 05/01/20 08:25:00 Last Modified By: Savannah Chavis RN 05/01/20 08:26:21 General Comments: 05/02/2020 Chart opened to review and send charges Juvencio Bowen CLINICAL ADMINISTRATIVE COORDINATOR Case Attendance FT Entry 1 Entry 2 Entry 3 Case Attendee Darinel Matias DO, Elliot Chavis RN, Fior Simms Role Performed Anesthesiologist of Cull Grader - Primary Scrub - Primary Record Time [...] Out Elliot Tena Jr, DO, Given Participants Savannah Chavis RN, SALAM MD, [...] Outcomes Met? Yes Last Modified By: Savannah Chvais RN 05/01/20 06:57:04 Post-Care Text: The patient [...] RN Patient Status Stable Skin. Condition Intact, Xenia, Warm, and Dry Airway Maintenance Oxygen in Use? No Outcomes Met? 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 RHRN Medication Administration FT Pre-Care Text: Verifies allergies, administers prescribed medications and solutions, administers prescribed antibiotic therapy and immunizing agents as ordered, evaluates response to medications Administers prescribed medications and solutions Entry 1 Expiration Date Yes Outcomes Met? Yes Verified Last Modified By: Savannah Chavis RN 05/01/20 06:57:59 Post-Care Text: The patient received appropriate medication(s) safely administered during the perioperative period For [facility] please see scanned medication reconcilliation form [...] Altagracia Bowen CST 05/02/20 13:35 [facility] Consenton 05-01-2020 Consent [id number] 0CD:127 [facility] Consent for Treatmenton 04-11 Consent for Treatment [id number] 0CD:127 [facility] Discharge Instructionson Discharge Instructions [id number] 0CD:127 [facility] History and Physicalon 05-01 History and Physical [id number] 0CD:127 [facility] Inpatient Patient Summaryon 05-01-2020 Inpatient Patient Summary [address] [address] [facility] Clinical Discharge Instructions PERSON INFORMATION Name: ADRIANA DINERO I [facility]#:[id number] PHYSICIANS Admitting Physician: Reid NIEVES MD Attending Physician: Reid NIEVES MD PCP: TOBY QUINTANA MD Discharge Diagnosis: Antral ulcer Comment: PATIENT EDUCATION INFORMATION Instructions: Medication Leaflets: Follow up: With: Address: When: [facility] [address], [place] [address] Within 2 weeks Type Location Start [facility] 05/22/2020 2:15 PM 05/22/2020 2:30 PM Confirmed MEDICATION LIST Medications to Continue Taking That Have Changed [facility] [address] [facility], [address] [place], [place] [id number], [phone] START: omeprazole (omeprazole 40 mg Cap-DR) 1 [...] every 8 hours. Refills: 1. Comment: Normal [facility] IntraOperative Documentson 0 05-01-2020 IntraOperative Documents [id number] 0CD:127 [facility] IntraOperative Documents [id number] 0CD:127 [facility] Main OR PACU I Recordon 04-11 Main OR PACU I Record PACU Phase I Document Type FT Summary Primary Physician: Reid NIEVES MD Finalized Date/Time: 05/01/20 09:14:39 Pt. Name: ADRIANA DINERO Shoshana /Sex: 1955 Female Med Rec #: [id number] Physician: Reid NIEVES MD Financial #: [id number] Pt. Type: O Room/Bed: / Admit/Disch: 05/01/20 [...] By: Ami Donaldson RN 05/01/20 09:14 Normal [facility] Main OR Preoperative Recordo n 05-01-2020 Main OR Preoperative Record Holding Area Document Type FT Summary Primary Physician: Reid NIEVES MD Finalized Date/Time: 05/01/20 07:37:17 Pt. Name: ADRIANA DINERO I /Sex: 1955 Female Med Rec #: [id number] Physician: Reid NIEVES MD Financial #: [id number] Pt. Type: O Room/Bed: / Admit/Disch: 05/01/20 [...] By: Lizbeth Diamond RN 05/01/20 07:37 Normal [facility] Monitor Recordon 05-01-2020 Monitor Record [id number]. 00CD:127 Normal [facility] Patient Education - Texton 0 05-01-2020 Patient Education - Text Normal [facility] Ambulatory Clinical Summaryo n 04-24-2020 Ambulatory Clinical Summary {[id number]}CD:[id number] Normal [facility] Auto Diffon 04-24-2020 Basophils/100 WBC (Bld) 0.5 % Normal 0.0-2.0 [facility] Comment on above: Order Comment: Order Added by Discern Expert. Performed By: #### 2 823469, 1845076, 7414716, 8515059, 03024674 #### [facility] [address] [place] [address] Basophils/Leukocytes Auto (Bld) [Pure # fraction] 0.0 E9/L Normal 0.0-0.2 [facility] Comment on above: Order Comment: Order Added by Discern Expert. Performed By: #### 2 367422, 2856026, 9333766, 3745455, 92755041 #### [facility] [address] [place] [address] Eosinophils/100 WBC (Bld) 2.9 % Normal 0.0-8.0 [facility] Comment on above: Order Comment: Order Added by Discern Expert. Performed By: #### 2 727955, 8831301, 5228103, 6876306, 80588065 #### [facility] [address] [place] [address] Eosinophils/Leukocyt es Auto (Bld) [Pure # fraction] 0.3 E9/L Normal 0.0-0.5 [facility] Comment on above: Order Comment: Order Added by Discern Expert. Performed By: #### 2 654657, 7392857, 5643755, 5443871, 15368948 #### [facility] [address] [place] [address] Lymphocytes/100 WBC (Bld) 23.7 % Normal 14.0-50.0 [facility] Comment on above: Order Comment: Order Added by Discern Expert. Performed By: #### 2 969887, 1135890, 4350261, 0176483, 27721054 #### [facility] [address] [place] [address] Lymphocytes/Leukocyt es Auto (Bld) [Pure # fraction] 2.2 E9/L Normal 1.0-4.0 [facility] Comment on above: Order Comment: Order Added by Discern Expert. Performed By: #### 2 272204, 9979433, 7813724, 0361202, 10673154 #### [facility] [address] [place] [address] Monocytes/100 WBC (Bld) 7.4 % Normal 4.0-14.0 [facility] Comment on above: Order Comment: Order Added by Ynes Expert. Performed By: #### 2 806635, 1534934, 4250116, 6363883, 04041460 #### [facility] [address] [place] [address] Monocytes/Leukocytes Auto (Bld) [Pure # fraction] 0.7 E9/L Normal 0.2-1.0 [facility] Comment on above: Order Comment: Order Added by Discern Expert. Performed By: #### 2 000569, 3363883, 7092891, 4208015, 64715921 #### [facility] [address] [place] [address] Neutrophils/100 WBC (Bld) 65.5 % Normal 36.0-75.0 [facility] Comment on above: Order Comment: Order Added by Ynes Expert. Performed By: #### 2 152998, 8442506, 7926335, 5829193, 27730917 #### [facility] [address] [place] [address] Neutrophils/Leukocyt es Auto (Bld) [Pure # fraction] 6.0 E9/L Normal 2.0-7.5 [facility] Comment on above: Order Comment: Order Added by Discern Expert. Performed By: #### 2 687738, 5358502, 7146865, 8509238, 57465051 #### [facility] [address] [place] [address] CBC w/ Auto Diffon 0 Erythrocyte distribution width (RBC) [Ratio] 16.1 % High 10.9-14.2 [facility] Comment on above: Performed By: #### 2 703297, 1269497, 0228937, 4450857, 35685973 #### [facility] [address] [place] [address] Hematocrit (Bld) [Volume fraction] 45.1 % Normal 34.0-46.0 [facility] Comment on above: Performed By: #### 2 240316, 2212159, 9053390, 2672201, 36664099 #### [facility] [address] [place] [address] Hemoglobin (Bld) [Mass/Vol] 15.0 g/dL Normal 12.0-16.0 [facility] Comment on above: Performed By: #### 2 797898, 1282570, 0519010, 4747812, 88663324 #### [facility] [address] [place] [address] MCH (RBC) [Entitic mass] 27.2 pg Normal 27.0-34.0 [facility] Comment on above: Performed By: #### 2 053543, 3463535, 0514456, 3885614, 82128296 #### [facility] [address] [place] [address] MCHC (RBC) [Mass/Vol] 33.2 g/dL Normal 31.4-36.0 [facility] Comment on above: Performed By: #### 2 776894, 4846027, 5768635, 2712095, 11608371 #### [facility] [address] [place] [address] MCV (RBC) [Entitic vol] 82.0 fL Normal 80.0-100.0 [facility] Comment on above: Performed By: #### 2 722163, 6416933, 4513151, 7556497, 62526940 #### [facility] [address] [place] [address] Platelet mean volume (Bld) [Entitic vol] 7.3 fL Normal 6.4-10.8 [facility] Comment on above: Performed By: #### 2 677985, 6399278, 9471622, 1108326, 51893792 #### [facility] [address] [place] [address] Platelets (Bld) [#/Vol] 253.0 E9/L Normal 150.0-500.0 [facility] Comment on above: Performed By: #### 2 672328, 4056232, 8190472, 1137276, 85191951 #### [facility] [address] [place] [address] RBC (Bld) [#/Vol] 5.5 E12/L Normal 4.3-5.9 [facility] Comment on above: Performed By: #### 2 983767, 3015693, 1817009, 8680483, 41206329 #### [facility] [address] [place] [address] WBC corrected for nucl RBC Auto (Bld) [#/Vol] 9.1 E9/L Normal 4.0-11.0 [facility] Comment on above: Performed By: #### 2 018789, 3860150, 8037169, 7687197, 66995958 #### [facility] [address] [place] [address] CMPon 04-24-2020 Albumin [Mass/Vol] 3.7 g/dL Normal 3.3-5.0 [facility] Comment on above: Performed By: #### 2 392577, 3087154, 6420036, 9832150, 63080708 #### [facility] [address] [place] [address] Albumin [Mass/Vol] 1.0 g/dL Low 1.1-2.2 [facility] Comment on above: Performed By: #### 2 336696, 3794276, 5161190, 8216514, 03009443 #### [facility] [address] [place] [address] ALP [Catalytic activity/Vol] 107 Int._Unit/L High 21-98 [facility] Comment on above: Performed By: #### 2 960436, 7608689, 0969602, 9613190, 32632595 #### [facility] [address] [place] [address] ALT No additional P-5'-P [Catalytic activity/Vol] 17 Int._Unit/L Normal 6-46 [facility] Comment on above: Performed By: #### 2 944126, 3752458, 6531406, 4397788, 43190552 #### [facility] [address] [place] [address] Anion gap [Moles/Vol] 11 mmol/L Normal 6-16 [facility] Comment on above: Performed By: #### 2 547075, 7695159, 5365592, 6798527, 75123448 #### [facility] [address] [place] [address] AST [Catalytic activity/Vol] 21 Int._Unit/L Normal 5-43 [facility] Comment on above: Performed By: #### 2 732686, 1872518, 3282638, 3697275, 90911905 #### [facility] [address] [place] [address] Bilirubin [Mass/Vol] 0.5 mg/dL Normal 0.0-1.1 [facility] Comment on above: Performed By: #### 2 882000, 7257298, 2781037, 7152771, 42794608 #### [facility] [address] [place] [address] Calcium [Mass/Vol] 9.0 mg/dL Normal 8.9-11.1 [facility] Comment on above: Performed By: #### 2 345962, 5705144, 1360087, 1846135, 38141154 #### [facility] [address] [place] [address] Chloride [Moles/Vol] 107 mmol/L Normal 101-111 [facility] Comment on above: Performed By: #### 2 348052, 9443584, 3738117, 8218164, 22357730 #### [facility] [address] [place] [address] CO2 [Moles/Vol] 27 mmol/L Normal 21-31 [facility] Comment on above: Performed By: #### 2 823930, 4137379, 6373555, 6064031, 53035780 #### [facility] [address] [place] [address] Creatinine [Mass/Vol] 0.8 mg/dL Normal 0.5-1.3 [facility] Comment on above: Performed By: #### 2 015962, 8319410, 8222876, 7267977, 98973790 #### [facility] [address] [place] [address] Globulin (S) [Mass/Vol] 3.7 g/dL Normal 1.4-4.0 [facility] Comment on above: Performed By: #### 2 524338, 6564561, 1929192, 2921268, 02804530 #### [facility] [address] [place] [address] Glucose [Mass/Vol] 134 mg/dL Normal 55-199 [facility] Comment on above: Result Comment: If t his glucose result represents a fasting glucose, interpretation should refer to the following reference range: 55-99 mg/dL Performed By: #### 2 855140, 4524513, 6175249, 8063620, 50910082 #### [facility] [address] [place] [address] Potassium [Moles/Vol] 3.9 mmol/L Normal 3.5-5.3 [facility] Comment on above: Performed By: #### 2 567577, 4036524, 0761118, 8854707, 11381311 #### [facility] [address] [place] [address] Protein [Mass/Vol] 7.4 g/dL Normal 6.0-7.8 [facility] Comment on above: Performed By: #### 2 881599, 7136041, 0251022, 5115090, 03657728 #### [facility] [address] [place] [address] Sodium [Moles/Vol] 141 mmol/L Normal 135-145 [facility] Comment on above: Performed By: #### 2 331236, 4300304, 6213897, 6978347, 00114057 #### [facility] [address] [place] [address] Urea nitrogen [Mass/Vol] 17 mg/dL Normal 5-21 [facility] Comment on above: Performed By: #### 2 970811, 1723884, 1406502, 4843709, 88170447 #### [facility] [address] [place] [address] Urea nitrogen/Creatinine [Mass ratio] 21 No Units High 10-20 [facility] Comment on above: Performed By: #### 2 680442, 8360564, 9201183, 0113219, 80899010 #### [facility] [address] [place] [address] Consent for Treatmenton 04-10 Consent for Treatment [id number] 0CD:127 Normal [facility] Lipase Levelon 04-24-2020 Lipase [Catalytic activity/Vol] 40 unit/L Normal 13-58 [facility] Comment on above: Performed By: #### 2 226590, 5641698, 9190165, 9403070, 94548656 #### [facility] [address] [place] [address] Physician Orderon 04-24-2020 Physician Order [id number]#1.00 CD:127 Normal [facility] eGFRon 04-24-2020 GFR/1.73 sq M predicted among blacks MDRD (S/P/Bld) [Vol rate/Area] mL/min/{1.73_m2} Normal >=59 [facility] Comment on above: Order Comment: Order added by Discern Expert. Result Comment: eGFR is race adjusted. AA=. Performed By: #### 2 683849, 2952306, 3416426, 8067582, 64921531 #### [facility] [address] [place] [address] GFR/1.73 sq M predicted among non-blacks MDRD (S/P/Bld) [Vol rate/Area] mL/min/{1.73_m2} Normal >=59 [facility] Comment on above: Order Comment: Order added by Discern Expert. Result Comment: Thoracic Medicine Physician farhan kidney disease could be indicated at eGFR's of less than 60 mL/min/1.73m2. Kidney failure is indicated at less than 15 mL/min/1.73m2. Performed By: #### 2 279467, 7733973, 8992075, 0391705, 27755454 #### [facility] [address] [place] [address] PROGRESSon 11-04-2019 PROGRESS HNO ID: [id number] Author: Bridger Ma Service: ? Author Type: Physician Type: Progress Notes Filed: 11/04/2019 5:12 PM Note Text: Bridger Ma MD Department of Orthopaedics Orthopaedics [address] [place] [address] Dept: [phone] October 05, 2019 CHIEF COMPLAINT: New Patient [...] or electronic medical record. LIZZY Graham [address] [facility] [address] Toby Quintana MD [facility]5 [facility] [phone] This note was partially generated using [employer] voice recognition system, and there may be some incorrect words, spellings, and punctuation that were not noted in checking the note before saving. 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 Patient had an x-ray done at [facility] on 11/02/18 and a MRI on 11/30/18. Patient hand carried copies of the reports and films on a CD. with patient today. Referred by Caitlyn Cantu. Taking [place] and Naproxen for the pain and does not help. Using a walker today and as needed at home. Bridger Ma MD 11/04/2019 5:12 PM Signed Bridger Ma MD Department of Orthopaedics Orthopaedics [address] [place] [address] Dept: [phone] October 05, 2019 CHIEF COMPLAINT: New Patient [...] or electronic medical record. LIZZY Graham [address] [facility] [address] Toby Quintana MD [address] [place] [phone] This note was partially generated using [employer] voice recognition system, and there may be some incorrect words, spellings, and punctuation that were not noted in checking the note before saving. Bridger Ma MD Referring Provider: CAITLYN CANTU [[id number]] Allergies As of Date: 10/05/2019 Noted Allergy [...] mg injection (CELESTONE)Disp: Rfl: [facility] [[id number]] Order #: [id number]: 1 Large Joint Arthro/Inj: R knee joint [BWY552] Order #: [id number] betamethasone acetate-betamethasone sodium phosphate 6 mg injection [...] Status:Closed by BRIDGER MA MD on 11/04/19 [facility] PROGRESSon 10-05-2019 PROGRESS HNO ID: [id number] Author: Eleanor Talbot Ma Service: ? 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 Patient had an x-ray done at [facility] on 11/02/18 and a MRI on 11/30/18. Patient hand carried copies of the reports and films on a CD. with patient today. Referred by Caitlyn Cantu. Taking [place] and Naproxen for the pain and does not help. Using a walker today and as needed at home. Normal [facility] CREATININEon 08-26-2019 Creatinine [Mass/Vol] 0.80 mg/dL Normal 0.50 - 1.05 [facility] Comment on above: Performed By: #### C REAT #### [address] [address] Creatinine [Mass/Vol] mg/dL Normal >60 [facility] Comment on above: Performed By: #### C REAT #### [address] [address] Result Comment: CALC ULATIONS OF ESTIMATED GFR ARE PERFORMED USING THE MDRD STUDY EQUATION FOR THE IDMS-TRACEABLE CREATININE METHODS. CLIN CHEM 2007;53:766-72 ELECTROLYTE PANELon 08-26-20 19 Anion gap [Moles/Vol] 14 mmol/L Normal 10 - 20 [facility] Comment on above: Performed By: #### E LECT #### [address] [address] Chloride [Moles/Vol] 104 mmol/L Normal 98 - 107 [facility] Comment on above: Performed By: #### E LECT #### [address] [address] HCO3 (Bld) [Moles/Vol] 29 mmol/L Normal 21 - 32 [facility] Comment on above: Performed By: #### E LECT #### [address] [address] Potassium [Moles/Vol] 4.6 mmol/L Normal 3.5 - 5.3 [facility] Comment on above: Performed By: #### E LECT #### [address] [address] Sodium [Moles/Vol] 142 mmol/L Normal 136 - 145 [facility] Comment on above: Performed By: #### E LECT #### [address] [address] UREA NITROGENon 08-26-2019 Urea nitrogen [Mass/Vol] 14 mg/dL Normal 6 - 23 [facility] Comment on above: Performed By: #### U CARLOS #### [address] [address] [facility] CARDIAC STRESS/REST INJE CTIONon 08-25-2019 [facility] CARDIAC STRESS/REST INJECTION Patient Name: ADRIANA DINERO STUDY: MYOCARDIAL PERFUSION STRESS TEST WITH LEXISCAN Performing facility: [facility], [address] [place] [address], [address], [place] [address] [facility] Provider: GURU LU PCP: Dr. Poli QUINTANA Supervising provider: Poli VILLAFANA INDICATION: DYSPNEA EDEMA HISTORY: Gender: F; Age: 64 y/o ; Height: 170.18 cm; Weight: 127.132836 kg. SOB High Cholesterol; Family HX CAD; PALPITATIONS COMPARISON: ACCESSION NUMBER(S): [id number] ORDERING CLINICIAN: IBAN LU TECHNIQUE: TWO DAY [...] Electronically signed by: IBAN LU MD Normal [facility] OT-MRI KNEE RT WO CON IMPORT on 07-27-2019 OT-MRI KNEE RT WO CON IMPORT Images were obtained outside of [facility] [id number] Normal [facility] CNOVon 07-07-2019 CNOV Office Visit (SPNMED ) ADRIANA DINERO ([id number]) 1955 F Date Time Provider Department 07/07/19 9:40 AM CAITLYN CANTU SPALICE During your visit today, we recorded the following information about you: Pulse Blood pressure Weight Height 80/minute 126/55 124.1 kg 1.676 m LIZZY Graham 07/07/2019 1:08 PM Signed BEVERLEY Lopez [facility] [address] [place] [address] 07/07/2019 Assessment Diagnosis: Encounter Diagnosis ICD-10-CM 1. [...] told for multiple years that she has ujpq-zo-mxuv arthritis in the right knee and this [...] record for those providers who practice within [facility] or with access to [facility] via MD Connect, or via letter. - [...] past--performed in [address] Jones in [place]. The procedure was a spinal laminectomy and fusion L2-4, and subsequent revision L2-5 lami/fusion with posterior hardware and interbody cages. 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: Medication(s): She has tried [...] file Gets together: Not on file Attends synagogue service: Not on file Active member of [...] L: 5/5 Triceps R: -4/5 L: 5/5 Education Dean R: -2/5 L: 5/5 Interossei R: 0/5 [...] hives Date Reviewed: 07/07/2019 Reviewed by: Betsy Almazan) Adam - Fully Assessed Reason for Visit: New Patient Evaluation [154] Primary Visit Diagnosis:Fibromyalgia [M79.7] Other Visit Diagnoses:History of lumbar spinal fusion [Z98.1] Chronic neck pain [M54.2, G89.29] Primary osteoarthritis of right knee [M17.11] Order(s):CONSULT TO ORTHOPAEDIC SURGERY [19991211] Order #: [id number]: 1 Prescriptions as of 07/07/2019 Sig: ALPRAZOLAM [...] Status:Closed by CAITLYN CANTU PA-C on 07/07/19 [facility] PROGRESSon 07-07-2019 PROGRESS HNO ID: [id number] Author: Caitlyn Cantu Service: ? Author Type: Physician Instructional Support Services Director Type: Progress Notes Filed: 07/07/2019 1:08 PM Note Text: Caitlyn Cantu PA-C [facility] [address] [place] [address] 07/07/2019 Assessment Diagnosis: Encounter Diagnosis ICD-10-CM 1. [...] told for multiple years that she has hytx-sj-hqst arthritis in the right knee and this [...] record for those providers who practice within [facility] or with access to [facility] via MD Connect, or via letter. SUBJECTIVE: [...] past--[place] [address] Jones in [place]. The procedure was a spinal laminectomy and fusion L2-4, and subsequent revision L2-5 lami/fusion with posterior hardware and interbody cages. 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 IMAGING STUDIES: See above Normal [facility] CT-CT cervical spine w con I MPORTon 04-08-2019 CT-CT cervical spine w con IMPORT Images were obtained outside of [facility] [id number] Normal [facility] CT-CT cervical spine w con IMPORT Images were obtained outside of [facility] [id number] Normal [facility] CT-CT cervical spine w con IMPORT Images were obtained outside of [facility] [id number] Normal [facility] CT-CT lumbar spine w con IMP Edi 04-08-2019 CT-CT lumbar spine w con IMPORT Images were obtained outside of [facility] [id number] Normal [facility] CT-CT lumbar spine w con IMPORT Images were obtained outside of [facility] [id number] Normal [facility] CT-CT lumbar spine w con IMPORT Images were obtained outside of [facility] [id number] Normal [facility] OT-IR myelogram spine total IMPORTon 04-08-2019 OT-IR myelogram spine total IMPORT Images were obtained outside of [facility] [id number] Normal [facility] OT-IR myelogram spine total IMPORT Images were obtained outside of [facility] [id number] Normal [facility] OT-IR myelogram spine total IMPORT Images were obtained outside of [facility] [id number] Normal [facility] OT-MRI C-SPINE WO CON IMPORT on 02-25-2019 OT-MRI C-SPINE WO CON IMPORT Images were obtained outside of [facility] [id number] Normal [facility] OT-XR KNEE RT 4V OR > IMPORT on 11-30-2018 OT-XR KNEE RT 4V OR > IMPORT Images were obtained outside of [facility] [id number] Normal [facility] Vital Signs Date Time Vital Sign Value Performing Clinician Facility 03-22-2024 13:18-0400 Body height 165.1 cm [facility] 03-22-2024 13:18-0400 Body mass index (BMI) [Ratio] 39.7 kg/m2 [facility] 03-22-2024 13:18-0400 Body weight 108.4 kg [facility] 03-22-2024 13:18-0400 Diastolic blood pressure 77 mm[Hg] [facility] 03-22-2024 13:18-0400 Heart rate 75 /min [facility] 03-22-2024 13:18-0400 Systolic blood pressure 127 mm[Hg] [facility] 02-10-2024 13:04-0400 Body height 167.64 cm [facility] 02-10-2024 13:04-0400 Body mass index (BMI) [Ratio] 38.5 kg/m2 [facility] 02-10-2024 13:04-0400 Body weight 108.4 kg [facility] 02-10-2024 13:04-0400 Diastolic blood pressure 73 mm[Hg] [facility] 02-10-2024 13:04-0400 Heart rate 85 /min [facility] 02-10-2024 13:04-0400 Systolic blood pressure 105 mm[Hg] [facility] 01-19-2024 08:44-0400 Body height 167.64 cm [facility] 12-30-2023 09:55-0500 Body height 167.64 cm [facility] 12-30-2023 09:55-0500 Body mass index (BMI) [Ratio] 38.9 kg/m2 [facility] 12-30-2023 09:55-0500 Body weight 109.31 kg [facility] 12-30-2023 09:55-0500 Diastolic blood pressure 76 mm[Hg] [facility] 12-30-2023 09:55-0500 Heart rate 69 /min [facility] 12-30-2023 09:55-0500 Systolic blood pressure 120 mm[Hg] [facility] 12-09-2023 10:32-0500 Diastolic blood pressure 80 mm[Hg] Iban Lu MD Work Phone: [facility] 12-09-2023 10:32-0500 Systolic blood pressure 130 mm[Hg] Iban Lu MD Work Phone: [facility] 12-09-2023 09:46-0500 Body height 167.6 cm Iban Lu MD Work Phone: [facility] 12-09-2023 09:46-0500 Body mass index (BMI) [Ratio] 39.06 kg/m2 Iban Lu MD Work Phone: [facility] 12-09-2023 09:46-0500 Body weight 109.77 kg Iban Lu MD Work Phone: [facility] 12-09-2023 09:46-0500 Heart rate 68 /min Iban Lu MD Work Phone: [facility] 08-20-2023 09:00-0400 Body height 167.64 cm Toby Quintana Other [facility] Other 08-20-2023 09:00-0400 Body mass index (BMI) [Ratio] 38.38 kg/m2 Toby Quintana Other [facility] Other 08-20-2023 09:00-0400 Body weight 107.87 kg Toby Quintana Other [facility] Other 08-20-2023 09:00-0400 Diastolic blood pressure 75 mm[Hg] Toby Quintana Other [facility] Other 08-20-2023 09:00-0400 Systolic blood pressure 108 mm[Hg] Toby Quintana Other [facility] Other 04-24-2023 11:15-0400 Body height 167.64 cm Toby Quintana Other [facility] Other 04-24-2023 11:15-0400 Body mass index (BMI) [Ratio] 38.73 kg/m2 Toby Quintana Other [facility] Other 04-24-2023 11:15-0400 Body weight 108.86 kg Toby Quintana Other [facility] Other 04-24-2023 11:15-0400 Diastolic blood pressure 79 mm[Hg] Toby Quintana Other [facility] Other 04-24-2023 11:15-0400 Systolic blood pressure 114 mm[Hg] Toby Quintana Other [facility] Other 02-07-2023 09:30-0400 Body height 167.64 cm Toby Quintana Other [facility] Other 02-07-2023 09:30-0400 Body mass index (BMI) [Ratio] 39.99 kg/m2 Toby Quintana Other [facility] Other 02-07-2023 09:30-0400 Body weight 112.4 kg Toby Quintana Other [facility] Other 02-07-2023 09:30-0400 Diastolic blood pressure 68 mm[Hg] Toby Quintana Other [facility] Other 02-07-2023 09:30-0400 Respiratory rate 18 /min Toby Quintana Other [facility] Other 02-07-2023 09:30-0400 SaO2% (BldA) [Mass fraction] 93 % Toby Quintana Other [facility] Other 02-07-2023 09:30-0400 Systolic blood pressure 142 mm[Hg] Toby Quintana Other [facility] Other 01-08-2023 10:00-0500 Body height 167.64 cm Collaaj Other [facility] Other 01-08-2023 10:00-0500 Body mass index (BMI) [Ratio] 40.19 kg/m2 Collaaj Other [facility] Other 01-08-2023 10:00-0500 Body weight 112.95 kg Collaaj Other [facility] Other 12-09-2022 13:25-0500 Body height 167.64 cm Toby Quintana Work Phone: [facility] Work Phone: 12-09-2022 13:25-0500 Body mass index (BMI) [Ratio] 40.03 kg/m2 Toby Quintana Work Phone: [facility] DO Work Phone: 12-09-2022 13:25-0500 Body surface area Derived from formula 2.19 m2 Toby Quintana Work Phone: [facility] [employer] [facility] DO Work Phone: 12-09-2022 13:25-0500 Body weight 112.49 kg Toby Quintana Work Phone: [facility] DO Work Phone: 12-09-2022 13:25-0500 Diastolic blood pressure 80 mm[Hg] Toby Quintana Work Phone: [facility] [address] DO Work Phone: 12-09-2022 13:25-0500 Heart rate 78 /min Toby Quintana Work Phone: [facility] [address] DO Work Phone: 12-09-2022 13:25-0500 Systolic blood pressure 118 mm[Hg] Toby Quintana Work Phone: [facility] [address] DO Work Phone: 11-22-2022 09:00-0500 Body height 167.64 cm Leeann Blades Other [facility] Other 11-22-2022 09:00-0500 Body mass index (BMI) [Ratio] 39.54 kg/m2 Leeann Blades Other [facility] Other 11-22-2022 09:00-0500 Body weight 111.13 kg Leeann Blades Other [facility] Other 09-04-2021 13:27-0400 Body height 170.18 cm Toby Quintana Work Phone: [facility] [address] DO Work Phone: 09-04-2021 13:27-0400 Body mass index (BMI) [Ratio] 39.78 kg/m2 Toby Quintana Work Phone: [facility] 250 DO Work Phone: 09-04-2021 13:27-0400 Body surface area Derived from formula 2.24 m2 Toby Quintana Work Phone: [facility] [address] DO Work Phone: 09-04-2021 13:27-0400 Body weight 115.21 kg Toby Quintana Work Phone: [facility] [address] DO Work Phone: 09-04-2021 13:27-0400 Diastolic blood pressure 78 mm[Hg] Toby Quintana Work Phone: [facility] 250 DO Work Phone: 09-04-2021 13:27-0400 Heart rate 80 /min Toby Quintana Work Phone: [facility] [address] DO Work Phone: 09-04-2021 13:27-0400 Systolic blood pressure 104 mm[Hg] Toby Quintana Work Phone: [facility] [address] DO Work Phone: Encounters Encounter Date Encounter Type Care Provider Facility Start: 03-22-2024 End: 03-22-2024 [facility] Work Phone: Start: 03-22-2024 End: 03-22-2024 Patient encounter procedure [facility] Work Phone: Start: 02-10-2024 End: 02-10-2024 ambulatory [facility] Work Phone: Start: 02-10-2024 End: 02-10-2024 Patient encounter procedure [facility] Work Phone: Start: 01-19-2024 End: 01-19-2024 Patient encounter procedure [facility] Work Phone: Start: 01-14-2024 Non-patient / Non-visit [facility] Physician [facility] Work Phone: Start: 01-05-2024 Non-patient / Non-visit [facility] Physician [facility] Work Phone: Start: 12-30-2023 Patient encounter procedure [facility] Start: 12-30-2023 End: 12-30-2023 ambulatory [facility] Work Phone: Start: 12-30-2023 End: 12-30-2023 Patient encounter procedure [facility] Work Phone: Start: 12-19-2023 End: 12-19-2023 ambulatory Toby Quintana Other [facility] Other Start: 12-19-2023 Telephone encounter Toby Quintana [facility] Start: 12-17-2023 End: 12-17-2023 ambulatory Toby Quintana Other [facility] Other Start: 12-17-2023 Telephone encounter Toby Quintana [facility] Start: 12-16-2023 (Televisit) Televisit Toby Quintana [facility] Start: 12-16-2023 End: 12-16-2023 ambulatory Toby Quintana Other [facility] Other Start: 12-09-2023 End: 12-09-2023 ambulatory [facility] Start: 12-09-2023 End: 12-09-2023 Office outpatient visit 25 minutes Iban Lu MD Work Phone: [facility] Comment on above: Supraventricular tac hycardia by ECG (Primary Dx); Mixed hyperlipidemia; Palpitations; Class II obesity Start: 12-08-2023 End: 12-08-2023 ambulatory Toby Quintana Other [facility] Other Start: 12-08-2023 Telephone encounter Toby Quintana [facility] Start: 11-04-2023 End: 11-04-2023 ambulatory Toby Quintana Other [facility] Other Start: 11-04-2023 Telephone encounter Toby Quintana [facility] Start: 10-21-2023 (Televisit) Televisit Toby Busby [facility] Start: 10-21-2023 End: 10-21-2023 ambulatory Toby Quintana Other [facility] Other Start: 10-21-2023 End: 10-21-2023 Patient encounter procedure [facility] Physician [facility] Work Phone: Start: 10-20-2023 End: 10-20-2023 ambulatory Toby Quintana Other [facility] Other Start: 10-20-2023 Telephone encounter Toby Pat [facility] Start: 09-25-2023 (Televisit) Televisit Toby Quintana [facility] Start: 09-25-2023 End: 09-25-2023 ambulatory Toby Quintana Other [facility] Other Start: 09-22-2023 (Televisit) Televisit Toby Quintana [facility] Start: 09-22-2023 End: 09-22-2023 ambulatory Toby Quintana Other [facility] Other Start: 09-22-2023 Telephone encounter Toby Pat [facility] Start: 08-20-2023 End: 08-20-2023 ambulatory Toby Quintana Other [facility] Other Start: 08-20-2023 Patient encounter procedure Toby Quintana [facility] Start: 05-22-2023 Telephone encounter Toby eugene Work Phone: [facility] 600 DO Work Phone: Start: 05-12-2023 End: 05-12-2023 ambulatory Toby Quintana Other [facility] Other Start: 05-12-2023 Telephone encounter Toby Pat [facility] Start: 04-24-2023 End: 04-24-2023 ambulatory Toby Quintana Other [facility] Other Start: 06-15-2023 Office outpatient vi sit 15 minutes Toby Quintana [facility] Start: 04-11-2023 End: 04-11-2023 ambulatory Toby Quintana Other [facility] Other Start: 04-11-2023 Telephone encounter Toby Quintana [facility] Start: 03-13-2023 End: 03-13-[address] EVIN BYERS Facility:UNKNOWN Start: 03-13-[address] Toby Quintana Facility:[id number] Start: 02-07-2023 End: 02-07-2023 ambulatory Toby Quintana Other [facility] Other Start: 02-07-2023 Patient encounter procedure Toby Quintana [facility] Start: 02-03-2023 End: 02-03-2023 ambulatory Leeann Blades Other [facility] Other Start: 02-03-2023 Telephone encounter Leeann Blades [facility] Start: 01-27-2023 End: 01-27-2023 ambulatory Leeann Blades Other [facility] Other Start: 01-27-2023 Telephone encounter Leeann Blades [facility] Start: 01-21-[address] TOBY QUINTANA Facil ity:H1 Start: 01-16-2023 End: 01-16-2023 ambulatory Samuel Chatman II Other [facility] Other Start: 01-16-2023 Telephone encounter Samuel Chatman II [facility] Start: 01-08-2023 [facility] visit new patient Samuel tyler II [facility] Start: 01-08-2023 End: 01-08-2023 ambulatory Samuel Chatman II Facility:[facility] Start: 01-08-2023 End: 01-08-2023 ambulatory MD Toby Quintana Work Phone: [facility] Work Phone: Start: 01-08-2023 End: 01-08-2023 Patient encounter procedure MD Toby Quintana Work Phone: [facility] Start: 01-02-2023 End: 01-02-2023 ambulatory Toby Quintana Other [facility] Other Start: 01-02-2023 Telephone encounter Leeann Blades F [facility] Start: 12-30-2022 End: 12-30-2022 ambulatory Leeann Blades Other [facility] Other Start: 12-30-2022 Telephone encounter Leeann Blades F [facility] Start: 12-26-2022 End: 12-26-2022 ambulatory Leeann Blades Other [facility] Other Start: 12-26-2022 Telephone encounter Leeann Blades [facility] Start: 12-19-2022 End: 12-19-2022 ambulatory Leeann Blades Other [facility] Other Start: 12-19-2022 Telephone encounter Leeann Blades F [facility] Start: 12-17-2022 End: 12-17-2022 ambulatory Toby Quintana Other [facility] Other Start: 12-17-2022 Telephone encounter Toby Quintana [facility] Start: 12-10-2022 End: 12-10-2022 ambulatory Toby Quintana Other [place] [facility] Other Start: 12-10-2022 Telephone encounter Toby Quintana [facility] Start: 12-09-2022 Office outpatient vi sit 25 minutes Toby Quintana Work Phone: [facility] 250 DO Work Phone: Start: 12-09-[address] Iban gardiner [facility] Facility: Start: 11-25-2022 End: 11-25-2022 ambulatory Leeann Blades Other [facility] [email or web address] Other Start: 11-25-2022 Telephone encounter Leeann Quintana [facility] Start: 11-22-2022 Office outpatient ne w 45 minutes Leeann Blades [facility] Start: 11-22-2022 End: 11-22-2022 ambulatory Leeann Blades Facility:[facility] Start: 11-22-2022 End: 11-22-2022 ambulatory MD Toby Quintana Work Phone: [facility] Work Phone: Start: 11-22-2022 End: 11-22-2022 Patient encounter procedure MD Toby Quintana Work Phone: [facility] [place] Work Phone: Start: 11-05-2022 Adult health examination Nannette Quintana Other [facility] [email or web address] Other Start: 11-05-2022 Pre-procedure evalua tion check Toby Quintana Other [facility] [email or web address] Other Start: 10-04-2022 End: 10-05-[address] SHALA OMER Facility:[facility] Start: 09-16-2022 Rx Renewal Toby Quintana Work Phone: [facility] 250 DO Work Phone: Start: 07-24-2022 End: 07-24-[address] TOBY QUINTANA Facility:[facility] Start: 07-22-2022 End: 07-22-[address] LAUREL BRAVO Facility:[facility] Start: 04-18-2022 Encounter for genera l adult medical examination without abnormal findings DR TOBY QUINTANA [facility] Start: 04-13-2022 End: 04-14-[address] TOBY QUINTANA Facility:[facility] Start: 04-12-2022 End: 04-13-[address] TOBY QUINTANA Facility:[facility] Start: 04-12-2022 End: 04-13-2022 Encounter for general adult medical examination without abnormal findings DR TOBY QUINTANA Facility:[facility] Start: 09-04-2021 FU, Provider: Iban Lu, Status: Pen, Time: 2:00 PM Toby Quintana Work Phone: [facility] [address] [place] Work Phone: Start: 09-04-2021 Office outpatient vi sit 25 minutes Toby Quintana Work Phone: [facility] [address] DO Work Phone: Start: 08-30-2021 Rx Renewal Toby Quintana Work Phone: [facility] [address] [place] Work Phone: Procedures Date Procedure [...] of patient Toby Quintana Other Cholecystectomy Toby Schofield Bra un Work Phone: Hysterectomy Toby Quintana Work Phone: Procedure on back Toby Schofield B raun Work Phone: Plan of Treatment Date Care Activity Detail Author Start: 12-09-2024 End: 12-09-2024 Patient encounter procedure 12/09/2024 9:00 AM EST Office Visit [facility] [address] [place] [address] Iban Lu MD [address] [place] [address] [facility] Start: 03-22-2024 Patient referral [facility] Work Phone: Start: 01-19-2024 Patient referral [facility] Work Phone: Start: 12-09-2023 End: 12-09-2024 Basic metabolic 2000 panel - Serum or Plasma Basic Metabolic Panel Lab Routine Supraventricular tachycardia by ECG Palpitations Expected: 12/09/2023 (Approximate), Expires: 12/09/2024 [facility] Service Area Work Phone: Comment on above: Expected: 12/09/2023 (Approximate), Expires: 12/09/2024 Start: 12-09-2023 FUV, Provider: Iban Lu, Status: Pen, Time: 10:00 AM FUV, Provider: Iban Lu, Status: Pen, Time: 10:00 AM [place] [address] DO Work Phone: Start: 07-11-2023 COVID-19 Vaccine ( season) COVID-19 Vaccine ( season) [facility] Start: 07-11-2023 Influenza vaccination Influenza Vacc ine (#1) [facility] Start: 09-20-2022 FUV, Provider: Iban Lu, Status: Pen, Time: 2:20 PM FUV, Provider: Iban Lu, Status: Pen, Time: 2:20 PM [facility] 250 DO Work Phone: Start: 09-05-2022 FUV, Provider: Iban Lu, Status: Pen, Time: 11:20 AM FUV, Provider: Iban Lu, Status: Pen, Time: 11:20 AM [facility] 250 DO Work Phone: Start: 01-19-2006 Zoster Vaccines (1 o f 2) Zoster Vaccines (1 of 2) [facility] Start: 1996 Screening for malign ant neoplasm of breast Mammogram [facility] Start: 01-19-1978 DTaP/Tdap/Td Vaccine s (1 - Tdap) DTaP/Tdap/Td Vaccines (1 - Tdap) [facility] Start: 01-19-1974 Hepatitis C screening Hepatitis C Sc reeginger [facility] Start: 01-19-1962 Pneumococcal Vaccine : 65+ Years (1 - PCV) Pneumococcal Vaccine: 65+ Years (1 - PCV) [facility] Start: 1956 Lipid panel Lipid Panel [facility] Start: 1956 Medicare Annual Wellness Visit Medicare Annual Wellness Visit (AWV) [facility] Start: 1956 Screening for malign ant neoplasm of colon [facility] Start: 1956 Screening for osteoporosis Bone Density Scan [facility] Comprehensive metabo lic 2000 panel - Serum or Plasma [facility] Patient referral [facility] Work Phone: [facility] Immunizations Immunization Date Immunization Notes Care Provider Fa cility 09-06-2022 Pfizer COVID-19 Vac Bivalent 30 MCG/0.3ML Intramuscular Suspension Toby Quintana Work Phone: [facility] [address] DO Work Phone: 07-02-2021 Pfizer-BioNTech COVI D-19 Vacc 30 MCG/0.3ML Intramuscular Suspension Toby Quintana Work Phone: [facility] Comment on above: Series: 06-11-2021 Pfizer-BioNTech COVI D-19 Vacc 30 MCG/0.3ML Intramuscular Suspension Toby Quintana Work Phone: [facility] Comment on above: Series: 09-12-2014 tetanus and diphther ia toxoids, adsorbed, preservative free, for adult use (5 Lf of tetanus toxoid and 2 Lf of diphtheria toxoid) Toby Quintana Other [facility] 09-15-2013 tetanus and diphther ia toxoids, adsorbed, preservative free, for adult use (5 Lf of tetanus toxoid and 2 Lf of diphtheria toxoid) Toby Quintana Other [facility] 09-14-2013 influenza, seasonal, injectable Toby Kanwal Quintana Work Phone: [facility] 09-14-2013 influenza virus vacc ine, unspecified formulation Iban Lu MD Work Phone: [facility] Work Phone: 08-10-2013 influenza virus vacc ine, unspecified formulation Toby Schofield Quintana Work Phone: [facility] 250 DO Work Phone: 07-19-2012 influenza virus vacc ine, unspecified formulation Toby Schofield Quintana Work Phone: [facility] 250 DO Work Phone: 11-10-2009 influenza virus vacc ine, unspecified formulation Toby E Quintana Work Phone: [facility] 250 DO Work Phone: 08-10-2009 influenza virus vacc ine, unspecified formulation Toby Schofield Quintana Work Phone: [facility] [address] DO Work Phone: 07-14-2007 pneumococcal polysaccharide vaccine, 23 valent Toby Quintana Other [facility] Payers Date Payer Category Payer Medicare [id number] 2023 Medicare [employer] MEDICARE A ETNA MEDICARE VALUE PLAN [id number] 2023-Present [address] [place] [address] [id number] 2022 Self-pay [id number] 1959 Unknown [id number] 1959 Unknown [id number] 1956 Unknown [id number] 1956 Unknown [id number] 1956 Unknown [id number] 1956 Unknown [id number] 1956 Unknown [id number] 1956 Unknown [id number] 1956 Unknown [id number] 1956 Unknown [id number] 1956 Unknown [id number] 1956 Unknown [id number] Unknown Unknown HCAP/HFA/FAP Active [id number] Unknown [id number] Unknown [id number] Social History Date Type Detail Facility Start: 12-09-2023 No illicit drug use No illicit drug use [address] Work Phone: Comment on above: Coffee 1 cup daily; quit 1987; Start: 1955 Sex Assigned At Female F [facility] Start: 12-09-2023 Sex Assigned At [place] [facility] Other Start: 12-09-2023 Tobacco smoking status NHIS Ex-smoker [facility] Work Phone: History of tobacco use Current smoker [facility] Work Phone: History of tobacco use Cigarette Smoker [facility] Work Phone: Start: 12-09-2023 Tobacco use and exposure Smokeless tobacco non-user [facility] Work Phone: Start: 12-09-2023 Alcohol intake Lifetime non-d mary (finding) [facility] Work Phone: Start: 1955 [facility]: Start: 11-29-2023 End: 12-09-2023 Exposure to SARS-CoV-2 (event) Not sure [facility] Clinical Notes 11-22-2022 to 03-22-2024 Note Date & Type Note Facility 03-22-2024 Hospital Discharg e instructions Ambulatory OrdersReferral to Orthopedics Time Frame: 03/22/24, Location: None [facility] Work Phone: 12-17-2023 Evaluation note Encounter Date Diagnosis Assessment Notes Dec, Jaw swelling (ICD-10 - R22.0) [place] [facility] Other 02-06-2024 Evaluation note* Encounter Date Diagnosis Assessment Notes Treatment Notes Treatment Clinical Notes Dec, Dental infection (ICD-10 - K04.7) Pt will contact her insurance, find a different dentist. Will continue antibiotic at this time. [place] [facility] Other 01-30-2024 History of Present illness Narrative* Iban Lu MD - 12/09/2023 10:00 AM EST Subjective Adriana Dinero is a 68 y.o. female Chief [...] follow-up will be scheduled Iban Lu MD, [facility] Review of Systems Cardiovascular: Positive [...] EVENING, Disp: 225 tablet, Rfl: 0 omega 8-dzs-rna-fish oil 360 mg-108 mg- 180 mg-1,200 mg [...] of Iban Lu MD. [facility] Work Phone: [phone] 757-821601-30-2024 Instructions* Patient Instructions* Nataliya Manning LPN - [...] Follow up one year [facility] Work Phone: [phone]) [phone] Evaluation note* Encounter Date Diagnosis Assessment Notes Treatment Notes Treatment Clinical Notes Oct, Open fracture of tooth, initial encounter (ICD-10 - S02.5XXB) Keep area clean, brush and rinse frequently. seeing dentist next week. Oct, Lumbar radiculitis (ICD-10 - M54.16) pt requests refill for her chronic back issues. We discussed her treatment plan w Dr. Byers. [facility] Other 11-16-2023 Evaluation note* Encounter Date Diagnosis Assessment Notes Treatment Notes Treatment Clinical Notes Sep, Lumbar radiculitis (ICD-10 - M54.16) CHanged pain med. Jax will call Dr. Byers's office for a change in treatment plan and an appt. Sep, Nausea & vomiting (ICD-10 - R11.2) States that zofran has not helped in the past - phenergan sent in for short term use. [facility] Other 11-13-2023 Evaluation note* Encounter Date Diagnosis Assessment Notes Treatment Notes Treatment Clinical Notes Sep, Radiculopathy, lumbar region (ICD-10 - M54.16) My staff reviewed her case with Dr. Byers's staff. She is to call their office for follow-up appointment next month. Patient does not want another injection and would rather have an ablation. Trial of tramadol sent to pharmacy. OARRS reviewed. [facility] Other 10-11-2023 Evaluation note* Encounter Date Diagnosis Assessment Notes Treatment Notes Treatment Clinical Notes Aug, Pain in right knee (ICD-10 - M25.561) Aug, Other chronic pain (ICD-10 - G89.29) Aug, Pain in left knee (ICD-10 - M25.562) [facility] Other 03-31-2023 Evaluation note* Encounter Date Diagnosis Assessment Notes Treatment Notes Treatment Clinical Notes Jan, Nausea & vomiting (ICD-10 - R11.2) Jan, Pain in right knee (ICD-10 - M25.561) Jan, Other chronic pain (ICD-10 - G89.29) Jan, Pain in left knee (ICD-10 - M25.562) [facility] Other 03-31-2023 Evaluation note* Encounter Date Diagnosis Assessment Notes Treatment Notes Treatment Clinical Notes Jan, Nausea & vomiting (ICD-10 - R11.2) chronic problem - requesting refill on Zofran Jan, Pain in right knee (ICD-10 - M25.561) Jan, Other chronic pain (ICD-10 - G89.29) Jan, Pain in left knee (ICD-10 - M25.562) [facility] Other 03-01-2023 Evaluation note* Encounter Date Diagnosis [...] She would prefer to stay close to [place]. Our office is working to get her referral to pain management near [place]. [facility] Other 01-31-2023 Evaluation note* Encounter Date Diagnosis Assessment Notes Treatment Notes Treatment Clinical Notes Nov, Lumbar pain (ICD-10 - M54.50) [facility] Other 01-13-2023 Evaluation note* Encounter Date Diagnosis Assessment Notes Treatment Notes Treatment Clinical Notes Nov, Low back pain, unspecified back pain laterality, unspecified chronicity, unspecified whether sciatica present (ICD-10 - M54.50) [facility] Other evaluation noteNo assessment information available [facility] Work Phone: Evaluation noteNo InformationNort [employer] Other evaluation note[employer] Other Evaluation note* Diagnosis Supraventricular tachycardia by ECG- Primary Mixed hyperlipidemia Palpitations Class II obesity documented in this encounter [facility] Work Phone: Evaluation note* Diagnosis Onset Date Resolution Status Fatigue acute Hyperlipidemia acute Lumbar radiculopathy, chronic acute Medicare annual wellness visit, subsequent acute SVT (supraventricular tachycardia) acute [facility] Work Phone: Evaluation note* Diagnosis Onset Date Resolution Status Fatigue acute Hyperlipidemia acute Lumbar radiculopathy, chronic acute Medicare annual wellness visit, subsequent acute SVT (supraventricular tachycardia) acute Lumbar radiculopathy, chronic acute [facility] Work Phone: Evaluation note* Diagnosis Onset Date Resolution Status Fatigue acute Hyperlipidemia acute Lumbar radiculopathy, chronic acute Medicare annual wellness visit, subsequent acute SVT (supraventricular tachycardia) acute Lumbar radiculopathy, chronic acute Left knee pain acute Lumbar radiculopathy, chronic acute Right knee pain acute Left knee pain acute Right knee pain acute [facility] Work Phone: History general Narrative - [...] childbirth Hospitalization History hysterectomy Hospitalization History pancreatitis [facility] [email or web address] Other History general Narrative - [facility] [email or web address] Other Reason for referral (narrative)* Consultation (Routine) - Authorized Specialty Diagnoses / Procedures Referred By Contac t Referred To Contact Cardiology Diagnoses Supraventricular tachycardia by ECG Procedures Follow Up In Cardiology Iban Lu MD [address] [facility] [address] [place] [address] Iban Lu MD [address] [facility] [address] [place] [address] Referral ID Status Reason Start Date Expiration Date V isits Requested Visits Authorized [id number] Authorized 12/09/2023 12/08/[address] [facility] Work Phone: Reason for visit NarrativePain Medicine Referral UpdateNowashington [facility] Other Summary Purpose Family History Unknown Family [...] be scheduled * Iban Lu MD, FACC * ADRIANA DINERO is being seen for [...] and provided the patient with 2 local success coach in town. * ASSESSMENT AND PLAN: * [...] xray Chief Complaint Swollen Face, [place]- [phone] Medicare Wellness Reason for Visit Fatigue Hyperlipidemia Lumbar radiculopathy, chronic Medicare annual wellness visit, subsequent SVT (supraventricular tachycardia) Chief Complaint Medicare Wellness Amb Documentation pulled [id number] knee injections Reason for Visit Fatigue Hyperlipidemia Lumbar radiculopathy, chronic Medicare annual wellness visit, subsequent SVT (supraventricular tachycardia) Lumbar radiculopathy, chronic Chief Complaint Medicare Wellness Amb Documentation pulled [id number] knee injections leg swelling - hot cold Reason for Visit Fatigue Hyperlipidemia Lumbar radiculopathy, chronic Medicare annual wellness visit, subsequent SVT (supraventricular tachycardia) Lumbar radiculopathy, chronic Left knee pain Lumbar radiculopathy, chronic Right knee pain Left knee pain Right knee pain Reason for Referral Reason 01/21/23 Evaluate and Treat Chronic Pain Diagnosis 1 Chronic pain disorde r (G89.4) Diagnosis 2 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) Diagnosis 3 Other chronic pain ( G89.29) Diagnosis 4 Low back pain, unspe cified (M54.50) Referral Organization [facility] Referring Provider First Name Leeann Referring Provider Last Name Mariano Referring Provider Specialty Neurologica l Surgery Referred Organization [facility] Referred Provider Albertina Oconnell Referred Address [address] [place], [place],[address] Referred Provider Specialty Pain Medicin e Referral Priority Routine Referral Appointment Date 2023-01-21 [facility] >Received today and waiting for office notes to be locked before sending referral [facility] 01/01/2023 07:37:06 AM >Referral was fax [facility] 01/08/2023 09:26:41 AM >Referral was refax to the correct office with their form Trini Suazo 01/08/2023 02:11:33 PM >received letter, pt has appt scheduled for 01/21/2023 Clinical Notes Phone: Reason 01/08/23 @ 10:00am Evaluate and Treat Hip Pain Diagnosis 1 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) Referral Organization [facility] Referring Provider First Name Leeann Referring Provider Last Name Mariano Referring Provider Specialty Neurologica l Surgery Referred Organization [facility] Orth[facility] pedics Referred Provider Samuel Chatman II Referred Address [address] [facility] [facility] [place],[address] Referred Provider Specialty Orthopaedic Surgery Referral Priority Routine Referral Appointment Date 2023-01-08 [facility] 10:20:34 AM >Received today and sent P2P [facility] 01/01/2023 12:05:35 PM >[facility]/15/2023 09:30:10 AM >Office notes not locked yet [facility] 01/16/2023 08:43:03 AM >Sent telephone encounter to referring physician to let them know that the consult letter is ready for their review Reason DECLINED lumbar an d knee pain Diagnosis 1 Lumbar pain (M54.50) Referral Organization [facility] Referring Provider First Name Toby Referring Provider Last Name Pat Referring Provider Specialty Family Medi cine Referred Organization [facility] Referred Provider Paddy De Los Santos Referred Address [address] [place] Referred Provider Specialty Rheumatology Referral Priority Routine [...] section and content) DATE CREATED AUTHOR 09/23/2019 [facility] DATE CREATED AUTHOR AUTHOR'S ORGANIZ ATION 11/04/2019 [facility] DATE CREATED AUTHOR AUTHOR'S ORGANIZ ATION 05/31/2020 [facility] DATE CREATED AUTHOR AUTHOR'S ORGANIZ ATION 12/06/2020 [facility] DATE CREATED AUTHOR AUTHOR'S ORGANIZ ATION 04/21/2021 [facility] DATE CREATED AUTHOR AUTHOR'S ORGANIZ ATION 12/10/2022 [facility] DATE CREATED AUTHOR AUTHOR'S ORGANIZ ATION 01/10/2023 [facility] DATE CREATED AUTHOR AUTHOR'S ORGANIZ ATION 01/17/2023 [facility] DATE CREATED AUTHOR AUTHOR'S ORGANIZ ATION 03/18/2023 [facility] DATE CREATED AUTHOR AUTHOR'S ORGANIZ ATION 06/09/2023 [facility] DATE CREATED AUTHOR AUTHOR'S ORGANIZ ATION 12/12/2023 [facility] [employer] Teams (unrecognized sec tion and content) Team Status: Inactive Member Role Status Dates Toby Quintana MD Primary Care Provider Active Leeann Quintana Attending Provider Active Team Status: Active Member Role Status Dates Toby Quintana MD Primary Care Provider Active Team Status: Inactive Member Role Status Yury Quintana MD Primary Care Provider Active Samuel Chatman II, MD Attending Provider Active Copyman Relationship Specialty Start Date End Date Toby [...] 2024 Team Status: Inactive Member Role Status Yury Quintana MD Primary Care Provide r, Attending Provider Active Start: January 19, 2024 End: January 19, 2024 Team Status: Inactive Member Role Status Yury Quintana MD Primary Care Provide r, Attending Provider Active Start: February 10, 2024 End: February 10, 2024 Team Status: Inactive Member Role Status Yury Quintana MD Primary Care Provide r, Attending Provider Active Start: March 22, 2024 End: March 22, 2024 Goals (unrecognized section and content) Goals [...] sectionGoals may be documented in an alternate sectionGoals [...] BE BASED ON THE PRIMARY CLINICAL RECORDS. [employer] provides no warranty or guarantee of the accuracy or completeness of information in this document.
== END 2024-04-26 08:19 | disposition home or self-care (01) ==
LOC: EC 08:18
PROVIDERS: PCP Family Medicine; Visit Provider Orthopaedic Surgery
DX: M25.562 Pain in left knee (principal); M25.561 Pain in right knee; M17.0 Bilateral primary osteoarthritis of knee
CPT/HCPCS: 73564

== ENCOUNTER 2024-04-30 10:01 | Outpatient (OUT) | payer MEDICARE, SELFPAY ==
--- NOTE | 2024-04-30 10:05 | US_ITS ---
[address] [address] Patient Name: INDERJIT MANN MRN: [id number] date: 1955 Sex: F Assigned Patient Location: [place] Current Patient Location: [place] Accession/Order Number: [id number] Exam Date: 04/30/2024 10:06 Report Date: 04/30/2024 12:02 At the request of: TOBY QUINTANA Procedure: US venous doppler LE BI EXAM: US venous doppler LE BI HISTORY: Pain In Both Lower Extremities COMPARISON: None. TECHNIQUE: Grayscale, color and Doppler FINDINGS: Region: Bilateral legs Thrombus: None Flow: Normal Augmentation: Normal Compressibility: Normal US/US venous doppler LE BI IMPRESSION: No deep or superficial vein thrombus identified in the legs Electronically authenticated by: CAITLYN CABRERA Date: 04/30/2024 12:02
--- OUTSIDE RECORDS SUMMARY | 2024-04-30 10:11 | XMS_ITS | CCD ---
Author Organization [facility] Care Team Providers Care Plant Controller Name Role Phone Toby Quintana Unavailable Unavailable Unavailable MD Toby Quintana Primary Care Provider BladesLeeann Attending Provider Unavailable Unavailable Blades, Leeann Unavailable KAN, DR SHALA Puente Consulting Unavailable QUINTANA, DR TOBY Schofield Admitting Unavailable QUINTANA, DR TOBY Schofield Attending Unavailable QUINTANA, DR TOBY Schofield Primary Care Unavailable QUINTANA, DR TOBY Schofield Consulting Unavailable QUINTANA, DR TOBY Schofield Admitting Unavailable QUINTANA, DR TOBY Schofield Attending Unavailable QUINTANA, DR TOBY Schofield Consulting Unavailable QUINTANA, DR TOBY Schofield Primary Care Unavailable QUINTANA, DR TBOY Schofield Admitting Unavailable [place], DR CAITLYN Noe Consulting Unavailable QUINTANA, DR TOBY Schofield Attending Unavailable QUINTANA, DR TOBY Schofield Primary Care Unavailable QUINTANA, DR TOBY Schofield Consulting Unavailable REINECK, DR LAURLE Banks Admitting Unavailabl e QUINTANA, DR TOBY Schofield Primary Care Unavailable REINECK, DR LAUREL Banks Attending Unavailabl e REINECK, DR LAUREL Banks Consulting Unavailabl e QUINTANA, DR TOBY Schofield Primary Care Unavailable BLADES, LEEANN Referring Unavailable LAKSHMIPATHY ., NARENDRANATH Admitting Nanda vailable LAKSHMIPATHY ., NARABBEYATH Attending Nanda vailable QUINTANA, DR TOBY Schofield Admitting Unavailable QUINTANA, DR TOBY Schofield Primary Care Unavailable QUINTANA, DR TOBY Schofield Attending Unavailable QUINTANA, DR TOBY Schofield Consulting Unavailable Quintana, Toby Unavailable MD Samuel Chatman II Attending Provider Blades, Leeann Admitting Unavailable Blades, Leeann Attending Unavailable Toby Quintana Primary Care Unavailable Samuel Chatman II Admitting Samuel Lang II Attending Toby Armijo Primary Care Unavailable Samuel Chatman II Unavailable Dr. EVIN BYERS Attending Toby Pham Primary Care Unavaildidier Quintana, Dr. Toby Feliz Primary Care Unav ailable Lore, Dr. Iban Penn Referring Nanda Quintana, Dr. Toby Feliz Primary Care Unav ailable Lore, Dr. Iban Penn Attending Toby Romano MD Primary Care Provider [phone] IBAN LU Attending TOBY Pham Primary Care Unavailable Allergies Allergy Classification Reported Allergen(s) Allergy Type Date of Onset Reaction(s) Facility (6 sources) Sulfamethoxazole; Translations: [sulfa] Drug Allergy Rash, Swelling [address] Work Phone: (8 sources) Sulfonamides (Antibiotic); Translations: [Sulfa (Sulfonamide Antibiotics)] Allergy to substance 04-08-20 19 Hives, Rash, Swelling [facility] (20 sources) Sulfacetamide / Sulfur Drug Allergy rash Bitglass [facility] Other (1 source) Morphine Drug Allergy [facility] Repository (1 source) Quinolones (Antibiotic) Drug allergy (disorder) [facility] Repository (2 sources) Sulfonamides (Antibiotic) Drug allergy (disorder) 08-06-20 13 [facility] Repository (12 sources) Acetaminophen / oxyCODONE Drug Allergy 07-28-20 13 Unknown [facility] Other (12 sources) Meperidine Drug Allergy 07-28-20 13 Unknown [facility] Other (13 sources) Quinolones Drug allergy 07-28-20 13 Comment:Fluorq stephanielones [facility] Other (13 sources) sulfADIAZINE Drug Allergy Unknown [facility] Other (13 sources) Substance with sulfonamide structure and antibacterial mechanism of action (substance) Drug allergy 07-28-20 13 Unknown [facility] Other (13 sources) Statins Depletion *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 Propensity to adverse reactions 07-28-20 13 Unknown [facility] Other (4 sources) Allergies Reconciled Propensity to adverse reactions Unknown [facility] Other (4 sources) patient allergy list reviewed by nurse or physicia Propensity to adverse reactions 07-15-20 Comment:Done [facility] Other (1 source) Acetaminophen / oxyCODONE Drug Allergy 07-28-20 13 Unknown [facility] Other (1 source) Meperidine Drug Allergy 07-28-20 13 Unknown [facility] Other (3 sources) Sulfacetamide Drug Allergy 12-30-19 24 [facility] Medications Current Medications Medication Drug Class(es) Dates Sig (Normalized) Sig (Original) acetaminophen 325 mg / HYDROcodone bitartrate 5 mg oral tablet (20 sources) Opioid Agonist Start: 08-31-2021 End: 12-09-2023 take 1 tablet by mouth every four hours as needed HYDROcodone-acetami nophen (Closter) 5-325 mg tablet Take 1 tablet by [...] tablet (20 sources) Benzodiazepine Start: 4 End: take 1 mg by mouth twice daily [...] Apr, Active take 1 capsule by mo [facility] every eight hours Amoxicillin 500 MG 1 [...] puffs Inhalation Twice a day Active omega 1-fbk-kbo-fish oil 360 mg-108 mg- 180 mg-1,200 mg capsule (1 source) take 1 capsule by mouth once daily omega 4-kia-mmi-fish oil 360 mg-108 mg- 180 mg-1,200 mg [...] 30 mg Start: 05-08-2023 Lidocaine 29 J un, [...] Sep, Active take 1 capsule by mo [facility] every six hours as needed oxyCODONE [...] 09-12-2014 Episodic Other aftercare (1 source) Other penitentiary (current) drug therapy; Translations: [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] Onset: 07-23-2022 Episodic Other [...] aPTT Coag (PPP) [Time] 23.5 s 22.3-36.2 [facility] Basophils Auto (Bld) [#/Vol] on 01-14-2024 Basophils (Bld) [#/Vol] 0.1 10 3/uL 0.0-0.1 [facility] Basophils/100 WBC Auto (Bld) on 01-14-2024 Basophils/100 WBC (Bld) 0.5 % 0.2-2.0 [facility] Eosinophils/100 WBC Auto (Bl d)on 01-14-2024 Eosinophils/100 WBC (Bld) 1.3 % 0.9-7.0 [facility] Erythrocyte distribution wid th Auto (RBC) [Ratio]on 01-14-2024 Erythrocyte distribution width (RBC) [Ratio] 13.6 % 11.0-15.0 [facility] Estimated glomerular filtrat ion rate (GFR) non- Americanon 01-14-2024 GFR/1.73 sq M.predicted among non-blacks MDRD (S/P/Bld) [Vol rate/Area] mL/min/{1.73_m2} >=60 [facility] Fibrin D-dimer [Presence] in Platelet poor plasma by Latex agglutinationon 01-14-2024 Fibrin D-dimer LA Ql (PPP) 0.78 mg/L FEU <=0.59 [facility] Comment on above: RESULTS CALLED TO [...] on 01-14-2024 Globulin (S) [Mass/Vol] 3.9 g/dL [facility] Hematocrit Auto (Bld) [Volum e fraction]on 01-14-2024 Hematocrit (Bld) [Volume fraction] 44.4 % 36.0-48.0 [facility] Hemoglobin [Mass/volume] in Bloodon 01-14-2024 Hemoglobin (Bld) [Mass/Vol] 14.1 g/dL 12.0-16.0 [facility] INR in Platelet poor plasma by Coagulation assayon 01-14-2024 INR Coag (PPP) [Relative time] {INR} [facility] Comment on above: DESIRED INR:2.0-3.0 CONDITIONS NOT LISTED BELOW2.5-3.5 FOR PROSTHETIC HEART VALVE REPLACEMENT2.5-3.5 RECURRENT THROMBOSIS Laboratory - Chemistry and C hemistry - challengeon 01-14-2024 Albumin [Mass/Vol] 2.9 g/dL 3.4-5.0 [facility] ALP [Catalytic activity/Vol] 126 U/L 46-116 [facility] ALT [Catalytic activity/Vol] 36 U/L 14-59 [facility] AST [Catalytic activity/Vol] 24 U/L 15-37 [facility] Bilirubin [Mass/Vol] 0.4 mg/dL 0.2-1.0 [facility] Calcium [Mass/Vol] 8.7 mg/dL 8.5-10.1 [facility] Chloride [Moles/Vol] 109 mmol/L 98-107 [facility] CO2 [Moles/Vol] 30.5 mmol/L 21.0-32.0 [facility] Creatinine [Mass/Vol] 0.77 mg/dL 0.55-1.02 [facility] GFR/1.73 sq M.predicted MDRD (S/P/Bld) [Vol rate/Area] mL/min/{1.73_m2} >=60 [facility] Glucose [Mass/Vol] 108 mg/dL 74-106 [facility] Natriuretic peptide B (Bld) [Mass/Vol] 210.0 pg/mL <=900.0 [facility] Potassium [Moles/Vol] 4.0 mmol/L 3.5-5.1 [facility] Protein [Mass/Vol] 6.8 g/dL 6.4-8.2 [facility] Sodium [Moles/Vol] 141 mmol/L 136-145 [facility] Urea nitrogen [Mass/Vol] 10.0 mg/dL 7.0-18.0 [facility] Urea nitrogen/Creatinine [Mass ratio] 13.0 mg/mg [facility] Laboratory - Hematology and Cell countson 01-14-2024 Immature granulocytes/100 WBC (Bld) 0.3 % 0.0-0.5 [facility] Laboratory - Microbiology an d Antimicrobial susceptibilityon 01-14-2024 SARS-CoV-2 (COVID-19) RNA DAVID+probe Ql (Unsp spec) Negative NEGATIVE [facility] Comment on above: This test has [...] of Covid-19 under section 564(b)(1) of theAct, 21 U.S.C. 360bbb-3(b)(1), unless the declaration isterminated or authorization is revoked sooner. Leukocytes [#/volume] correc wanda for nucleated erythrocytes in Blood by Automated counon 01-14-2024 WBC corrected for nucl RBC Auto (Bld) [#/Vol] 9.2 10 3/uL 4.0-11.0 [facility] Lymphocytes Auto (Bld) [#/Vo l]on 01-14-2024 Lymphocytes (Bld) [#/Vol] 1.9 10 3/uL 1.2-3.8 [facility] Lymphocytes/100 WBC Auto (Bl d)on 01-14-2024 Lymphocytes/100 WBC (Bld) 20.3 % 20.5-60.0 [facility] MCH Auto (RBC) [Entitic mass ]on 01-14-2024 MCH (RBC) [Entitic mass] 28.4 pg 26.7-34.0 [facility] MCHC Auto (RBC) [Mass/Vol]on 01-14-2024 MCHC (RBC) [Mass/Vol] 31.8 g/dL 29.9-35.2 [facility] MCV Auto (RBC) [Entitic vol] on 01-14-2024 MCV (RBC) [Entitic vol] 89.5 fL 81.0-99.0 [facility] Monocytes Auto (Bld) [#/Vol] on 01-14-2024 Monocytes (Bld) [#/Vol] 0.8 10 3/uL 0.3-0.8 [facility] Monocytes/100 WBC Auto (Bld) on 01-14-2024 Monocytes/100 WBC (Bld) 8.5 % 1.7-12.0 [facility] Neutrophils Auto (Bld) [#/Vo l]on 01-14-2024 Neutrophils (Bld) [#/Vol] 6.3 10 3/uL 1.4-6.5 [facility] Neutrophils/100 WBC Auto (Bl d)on 01-14-2024 Neutrophils/100 WBC (Bld) 69.1 % 43.0-75.0 [facility] No Panel Informationon 01-13 Troponin I High Sensitivity 6.8 pg/mL 4.0-51.3 [facility] Comment on above: CUT-OFF POINTS HAVE [...] INFORMATION. Bedside Influenza Type A Antigen Negative [facility] Comment on above: Negative for Flu A p rotein antigen. Infection due to Flu Acannot be ruled out. Flu A antigen in the sample may bebelow the detection limit of the test. Bedside Influenza Type B Antigen Negative [facility] Comment on above: Negative for Flu B p rotein antigen. Infection due to Flu Bcannot be ruled out. Flu B antigen in the sample may bebelow the detection limit of the test. Eosinophils # (Auto) 0.1 10 3/uL 0.0-0.7 [facility] Immature Granulocyte # (Auto) 0.03 10 3/uL 0.00-0.03 [facility] Platelet mean volume Auto (B ld) [Entitic vol]on 01-14-2024 Platelet mean volume (Bld) [Entitic vol] 9.4 fL 9.5-13.5 [facility] Platelets Auto (Bld) [#/Vol] on 01-14-2024 Platelets (Bld) [#/Vol] 238 10 3/uL 150-450 [facility] Prothrombin time (PT)on PT Coag (PPP) [Time] 9.3 s 9.0-11.6 [facility] RBC Auto (Bld) [#/Vol]on RBC (Bld) [#/Vol] 4.96 10 6/uL 4.20-5.[address] [facility] Serum or plasma albumin/glob ulin mass ratioon 01-14-2024 Albumin/Globulin [Mass ratio] 0.7 {ratio} [facility] Serum or plasma anion gap de terminationon 01-14-2024 Anion gap [Moles/Vol] 5.5 mmol/L [facility] Basophils Auto (Bld) [#/Vol] on 12-30-2023 Basophils (Bld) [#/Vol] 0.1 10 3/uL 0.0-0.1 [facility] Basophils/100 WBC Auto (Bld) on 12-30-2023 Basophils/100 WBC (Bld) 0.6 % 0.2-2.0 [facility] Cholesterol in LDL Calc [Mas s/Vol]on 12-30-2023 Cholesterol in LDL [Mass/Vol] 149.0 mg/dL [facility] Comment on above: <100 mg/dl [id number] 0-129 mg/dl NEAR OR ABOVE [id number] mg/dl BORDERLINE SHYT075-977 mg/dl HIGH>190 mg/dl VERY HIGH Cholesterol in VLDL Calc [Ma ss/Vol]on 12-30-2023 Cholesterol in VLDL [Mass/Vol] 18.6 mg/dL [facility] Eosinophils/100 WBC Auto (Bl d)on 12-30-2023 Eosinophils/100 WBC (Bld) 1.8 % 0.9-7.0 [facility] Erythrocyte distribution wid th Auto (RBC) [Ratio]on 12-30-2023 Erythrocyte distribution width (RBC) [Ratio] 13.2 % 11.0-15.0 [facility] Estimated glomerular filtrat ion rate (GFR) non- Americanon 12-30-2023 GFR/1.73 sq M.predicted among non-blacks MDRD (S/P/Bld) [Vol rate/Area] mL/min/{1.73_m2} >=60 [facility] Globulin Calc (S) [Mass/Vol] on 12-30-2023 Globulin (S) [Mass/Vol] 3.8 g/dL [facility] Hematocrit Auto (Bld) [Volum e fraction]on 12-30-2023 Hematocrit (Bld) [Volume fraction] 46.8 % 36.0-48.0 [facility] Hemoglobin [Mass/volume] in Bloodon 12-30-2023 Hemoglobin (Bld) [Mass/Vol] 14.7 g/dL 12.0-16.0 [facility] Laboratory - Chemistry and C hemistry - challengeon 12-30-2023 Albumin [Mass/Vol] 3.0 g/dL 3.4-5.0 [facility] ALP [Catalytic activity/Vol] 88 U/L 46-116 [facility] ALT [Catalytic activity/Vol] 23 U/L 14-59 [facility] AST [Catalytic activity/Vol] 20 U/L 15-37 [facility] Bilirubin [Mass/Vol] 0.5 mg/dL 0.2-1.0 [facility] Calcium [Mass/Vol] 9.2 mg/dL 8.5-10.1 [facility] Chloride [Moles/Vol] 107 mmol/L 98-107 [facility] Cholesterol [Mass/Vol] 224 mg/dL <=200 [facility] Cholesterol in HDL [Mass/Vol] 57 mg/dL 40-60 [facility] Comment on above: > or =60 mg/dl - LOW CARDIOVASCULAR RISK<40 mg/dl - HIGH CARDIOVASCULAR RISK CO2 [Moles/Vol] 31.1 mmol/L 21.0-32.0 [facility] Creatinine [Mass/Vol] 0.72 mg/dL 0.55-1.02 [facility] GFR/1.73 sq M.predicted MDRD (S/P/Bld) [Vol rate/Area] mL/min/{1.73_m2} >=60 [facility] Glucose [Mass/Vol] 100 mg/dL 74-106 [facility] Potassium [Moles/Vol] 4.5 mmol/L 3.5-5.1 [facility] Protein [Mass/Vol] 6.8 g/dL 6.4-8.2 [facility] Sodium [Moles/Vol] 145 mmol/L 136-145 [facility] Triglyceride [Mass/Vol] 93 mg/dL <=150 [facility] TSH Qn 2.655 m[IU]/L 0.358-3.740 [facility] Urea nitrogen [Mass/Vol] 9.0 mg/dL 7.0-18.0 [facility] Urea nitrogen/Creatinine [Mass ratio] 12.5 mg/mg [facility] Laboratory - Hematology and Cell countson 12-30-2023 Immature granulocytes/100 WBC (Bld) 0.2 % 0.0-0.5 [facility] Leukocytes [#/volume] correc wanda for nucleated erythrocytes in Blood by Automated counon 12-30-2023 WBC corrected for nucl RBC Auto (Bld) [#/Vol] 8.7 10 3/uL 4.0-11.0 [facility] Lymphocytes Auto (Bld) [#/Vo l]on 12-30-2023 Lymphocytes (Bld) [#/Vol] 1.8 10 3/uL 1.2-3.8 [facility] Lymphocytes/100 WBC Auto (Bl d)on 12-30-2023 Lymphocytes/100 WBC (Bld) 20.4 % 20.5-60.0 [facility] MCH Auto (RBC) [Entitic mass ]on 12-30-2023 MCH (RBC) [Entitic mass] 28.6 pg 26.7-34.0 [facility] MCHC Auto (RBC) [Mass/Vol]on 12-30-2023 MCHC (RBC) [Mass/Vol] 31.4 g/dL 29.9-35.2 [facility] MCV Auto (RBC) [Entitic vol] on 12-30-2023 MCV (RBC) [Entitic vol] 91.1 fL 81.0-99.0 [facility] Monocytes Auto (Bld) [#/Vol] on 12-30-2023 Monocytes (Bld) [#/Vol] 0.7 10 3/uL 0.3-0.8 [facility] Monocytes/100 WBC Auto (Bld) on 12-30-2023 Monocytes/100 WBC (Bld) 7.5 % 1.7-12.0 [facility] Neutrophils Auto (Bld) [#/Vo l]on 12-30-2023 Neutrophils (Bld) [#/Vol] 6.0 10 3/uL 1.4-6.5 [facility] Neutrophils/100 WBC Auto (Bl d)on 12-30-2023 Neutrophils/100 WBC (Bld) 69.5 % 43.0-75.0 [facility] No Panel Informationon 12-30 Eosinophils # (Auto) 0.2 10 3/uL 0.0-0.7 [facility] Immature Granulocyte # (Auto) 0.02 10 3/uL 0.00-0.03 [facility] Platelet mean volume Auto (B ld) [Entitic vol]on 12-30-2023 Platelet mean volume (Bld) [Entitic vol] 9.3 fL 9.5-13.5 [facility] Platelets Auto (Bld) [#/Vol] on 12-30-2023 Platelets (Bld) [#/Vol] 199 10 3/uL 150-450 [facility] RBC Auto (Bld) [#/Vol]on RBC (Bld) [#/Vol] 5.14 10 6/uL 4.20-5.[address] [facility] Serum or plasma albumin/glob ulin mass ratioon 12-30-2023 Albumin/Globulin [Mass ratio] 0.8 {ratio} [facility] Serum or plasma anion gap de terminationon 12-30-2023 Anion gap [Moles/Vol] 11.4 mmol/L [facility] Serum or plasma total choles terol/high density lipoprotein (HDL) cholesterol mass la 12-30-2023 Cholesterol.total/Ch olesterol in HDL [Mass ratio] 3.9 {ratio} [facility] Comment on above: 3.3 - 4.4 LOW RISK4. 4 - 7.1 AVERAGE RISK7.1 - 11.0 MODERATE RISK>11.0 HIGH RISK XR hip LT min 2V(w/wo pelvis )*on 01-08-2023 XR hip LT min 2V(w/wo pelvis)* [address] [address] XRay Report Signed Patient: Adriana Dinero I MR#: [id number] [id number] : 1955 Acct:[id number] Age/Sex: 67 / F ADM Date: 01/08/23 Loc: [facility] Room: Type: [facility] Attending Dr: Samuel Chatman II, MD [...] Pop Jr., D.OOdessa01/08/2023 1:22 PM Dictation Location: [place] [address] Transcribed By: [facility] 01/08/23 1322 Dictated By: Montana Pop Jr, DO 01/08/23 1321 Signed By: 01/08/23 1322 Normal [facility] XR hip LT min 2V(w/wo pelvis)* [facility] Other XR hip LT min 2V(w/wo pelvis)* [facility] [employer] Other XR hip LT min 2V(w/wo pelvis)* [address] [place] [address] [employer] Other XR hip LT min 2V(w/wo pelvis)* [place] [id number] [facility] [employer] Other XR hip LT min 2V(w/wo pelvis)* XRay Report [facility] Other XR hip LT min 2V(w/wo pelvis)* Signed [facility] Other XR hip LT min 2V(w/wo pelvis)* Patient: Adriana Dinero I MR#: [id number] [facility] Other XR hip LT min 2V(w/wo pelvis)* 056 [facility] Other XR hip LT min 2V(w/wo pelvis)* : 1955 Acct:[id number] [facility] Other XR hip LT min 2V(w/wo pelvis)* Age/Sex: 67 / F ADM Date: 01/08/23 [facility] Other XR hip LT min 2V(w/wo pelvis)* Loc: [facility] Room: Type: [facility] Other XR hip LT min 2V(w/wo pelvis)* Attending Dr: Samuel Chatman II, MD [facility] Other XR hip LT min 2V(w/wo pelvis)* Copies to: Samuel Chatman MD [facility] Other XR hip LT min 2V(w/wo pelvis)* Ordering Provider: Samuel Chatman MD [facility] Other XR hip LT min 2V(w/wo pelvis)* Date of Service: 01/08/23 [facility] Other XR hip LT min 2V(w/wo pelvis)* XR/XR hip LT min 2V(w/wo pelvis)*: Left hip pain [facility] Other XR hip LT min 2V(w/wo pelvis)* LEFT HIP - 2 views: [facility] Other XR hip LT min 2V(w/wo pelvis)* CLINICAL HISTORY: Left hip pain for months. [facility] Other XR hip LT min 2V(w/wo pelvis)* COMPARISON: Hip series 11/22/2022 [facility] Other XR hip LT min 2V(w/wo pelvis)* FINDINGS: Mild degenerative changes of both hips without acute bony process. [facility] Other XR hip LT min 2V(w/wo pelvis)* XR/XR hip LT min 2V(w/wo pelvis)* [facility] Other XR hip LT min 2V(w/wo pelvis)* IMPRESSION: [facility] Other XR hip LT min 2V(w/wo pelvis)* MILD DEGENERATIVE CHANGES OF BOTH HIPS WITHOUT ACUTE BONY PROCESS.. [facility] Other XR hip LT min 2V(w/wo pelvis)* Impression dictated by: Montana Pop Jr., MiguelOOdessa01/08/2023 1:22 PM [facility] Other XR hip LT min 2V(w/wo pelvis)* Dictation Location: [place] [address] [facility] Other XR hip LT min 2V(w/wo pelvis)* Transcribed By: PWS 01/08/23 [facility] Other XR hip LT min 2V(w/wo pelvis)* Dictated By: Montana Pop Jr DO 01/08/23 Count includes the [facility] Other XR hip LT min 2V(w/wo pelvis)* Signed By: [facility] Other XR hip LT min 2V(w/wo pelvis)* 01/08/23 [facility] Other Office Visit (Cardiology)on 12-09-2022 Follow-up visit [...] and provided the patient with 2 local strategy intern in town. ASSESSMENT AND PLAN: 1. Supraventricular [...] follow-up will be scheduled Iban Lu MD, [facility] Surgical History Problems History of Back surgery [...] Recorded: 09Dec2022 01:25PM Heart Rate78, L Radial Rurazift685, LUE, Sitting Ycphjfczc19, LUE, Sitting Height5 ft 6 in Vqmgbv576 lb BMI Bvkdyscdsa10.03 kg/m2 BSA Calculated2.19 Tobacco Useb) No PHQ-2 [...] more fall s in the last year [facility] [address] DO Work Phone: Tobacco use status CPHS b) No [facility] 250 DO Work Phone: Tobacco Screening. Yes [facility] 250 DO Work Phone: XR hip BI w [id number] 11-22-19 XR hip BI w [id number] [facility] Main [place] [address] [place] [address] XRay Report Signed Patient: Adriana Dinero I MR#: [id number] 056 : 1955 Acct:[id number] Age/Sex: 67 / F ADM Date: 11/22/22 Loc: XD Room: Type: [facility] Attending Dr: Leeann Quintana Copies to: [...] Pop Jr., D.O.11/22/2022 1:12 PM Dictation Location: [place] [address] Transcribed By: [facility] 11/22/22 1312 Dictated By: Montana Pop Jr, DO 11/22/22 1311 Signed By: 11/22/22 1312 [facility] XR lumbar spine AP/LAT/FLX/E XTon 11-22-2022 XR lumbar spine AP/LAT/FLX/EXT [facility] Main [place] [id number] XRay Report Signed Patient: Adriana Dinero I MR#: [id number] 056 : 1955 Acct:[id number] Age/Sex: 67 / F ADM Date: 11/22/22 [facility]: XD [facility]: Leeann Quintana Copies to: [...] Pop Jr., D.O.11/22/2022 1:11 PM Dictation Location: [place] [address] Transcribed By: [facility] 11/22/22 1311 Dictated By: Montana Pop Jr DO 11/22/22 1309 Signed By: 11/22/22 1311 [facility] CREATININEon 10-04-2022 Creatinine [Mass/Vol] 0.75 mg/dL Normal 0.55-1.02 [facility] Comment on above: Performed By: #### C CARLOS #### [facility] Laboratory [address] [place] [address] [address] Henrietta Zavala EGFR-AF ENGLISH >60 Normal >=[address] [facility] Comment on above: Performed By: #### C CARLOS #### [facility] [address] [place] [address] [address] Henrietta Zavala EGFR-NON AF ENGLISH >60 Normal >=60 [facility] Comment on above: Performed By: #### C CARLOS #### [facility] [address] [place] [address] [address] Henrietta Zavala MRI LSPINE WO W [...] for patient's symptoms. Electronically authenticated by: SHALA Joiner: 2022-10-04 11:19 Normal [facility] Covid-19 PCR (CVDTB)on 07-11 SARS-CoV-2 (COVID-19) RNA DAVID+probe Ql (Unsp spec) Not detected Normal NOT DETECTED [facility] Comment on above: Result Comment: This test is not yet approved or cleared by the [place] FDA. When there are no FDA-approved or cleared tests available, and other criteria are met, FDA can make tests available under an emergency access mechanism called an Emergency Use Authorization (EUA). The EUA for this test is supported by the [place] of Health and Human Service's (HHS's) declaration [...] consistent with SARS-CoV-2. Performed By: #### C [facility] #### [facility] [address] [place] [address] Dr. Henrietta Zavala XR HIPS JI [id number] [...] Date: 2022-04-15 07:00 Normal [facility] XR TSPINE 3 VIEWSon 04-15-20 22 XR [...] Date: 2022-04-15 07:03 Normal [facility] CBC AUTO DIFFon 04-12-2022 BASO # 0.1 103/ul Normal 0.0-0.1 [facility] Comment on above: Performed By: #### C BC #### [facility] Laboratory [address] [place] [address] Dr. Henrietta Zavala Basophils/100 WBC (Bld) 0.4 % Normal 0.2-2.0 [facility] Comment on above: Performed By: #### C BC #### [facility] Laboratory [address] [place] [address] Dr. Henrietta Zavala EO # 0.1 103/ul Normal 0.0-0.7 [facility] Comment on above: Performed By: #### C BC #### [facility] Laboratory [address] [place] [address] Dr. Henrietta Zavala Eosinophils/100 WBC (Bld) 0.4 % Critically low 0.9-7.0 [facility] Comment on above: Performed By: #### C BC #### [facility] Laboratory [address] [place] [address] Dr. Henrietta Zavala Erythrocyte distribution width (RBC) [Ratio] 14.1 % Normal 11.0-15.0 [facility] Comment on above: Performed By: #### C BC #### [facility] Laboratory [address] [place] [address] Dr. Henrietta Zavala Hematocrit (Bld) [Volume fraction] 44.9 % Normal 36.0-48.0 [facility] Comment on above: Performed By: #### C BC #### [facility] Laboratory [address] [place] [address] Dr. Henrietta Zavala Hemoglobin (Bld) [Mass/Vol] 14.2 g/dL Normal 12.0-16.0 [facility] Comment on above: Performed By: #### C BC #### [facility] Laboratory [address] [place] [address] Dr. Henrietta Zavala IG # 0.06 10e3/ul Critically high 0.00-0.03 [facility] Comment on above: Performed By: #### C BC #### [facility] Laboratory [address] [place] [address] Dr. Henrietta Zavala IG % 0.5 % Normal 0.0-0.5 [facility] Comment on above: Performed By: #### C BC #### [facility] Laboratory [address] [place] [address] Dr. Henrietta Zavala LYMPH # 2.2 103/ul Normal 1.2-3.8 [facility] Comment on above: Performed By: #### C BC #### [facility] Laboratory [address] [place] [address] Dr. Henrietta Zavala Lymphocytes/100 WBC (Bld) 19.4 % Critically low 20.5-60.0 [facility] Comment on above: Performed By: #### C BC #### [facility] Laboratory [address] [place] [address] Dr. Henrietta Zavala MANUAL DIFF REQ NO Normal [facility] Comment on above: Performed By: #### C BC #### [facility] Laboratory [address] [place] [address] Dr. Henrietta Zavala MCH (RBC) [Entitic mass] 27.5 pg Normal 26.7-34.0 [facility] Comment on above: Performed By: #### C BC #### [facility] Laboratory [address] [place] [address] Dr. Henrietta Zavala MCHC (RBC) [Mass/Vol] 31.6 g/dL Normal 29.9-35.2 [facility] Comment on above: Performed By: #### C BC #### [facility] Laboratory [address] [place] [address] Dr. Henrietta Zavala MCV (RBC) [Entitic vol] 86.8 fL Normal 81.0-99.0 [facility] Comment on above: Performed By: #### C BC #### [facility] Laboratory [address] [address] [address] Henrietta Zavala MONO # 0.9 103/ul Critically high 0.3-0.8 [facility] Comment on above: Performed By: #### C BC #### [facility] Laboratory [address] [address] [address] Henrietta Zavala Monocytes/100 WBC (Bld) 7.9 % Normal 1.7-12.0 [facility] Comment on above: Performed By: #### C BC #### [facility] Laboratory [address] [place] [address] Dr. Henrietta Zavala NEUT # 8.1 103/ul Critically high 1.4-6.5 [facility] Comment on above: Performed By: #### C BC #### [facility] Laboratory [address] [place] [address] Dr. Henrietta Zavala Neutrophils/100 WBC (Bld) 71.4 % Normal 43.0-75.0 [facility] Comment on above: Performed By: #### C BC #### [facility] Laboratory [address] [place] [address] Dr. Henrietta Zavala Platelet mean volume (Bld) [Entitic vol] 9.7 fL Normal 9.5-13.5 [facility] Comment on above: Performed By: #### C BC #### [facility] Laboratory [address] [place] [address] Dr. Henrietta Zavala PLT 284 103/ul Normal 150-450 [facility] Comment on above: Performed By: #### C BC #### [facility] Laboratory [address] [place] [address] Dr. Henrietta Zavala RBC 5.17 106/ul Normal 4.20-5.40 [facility] Comment on above: Performed By: #### C BC #### [facility] Laboratory [address] [place] [address] Dr. Henrietta Zavala WBC 11.3 103/ul Critically high 4.0-11.[address] [facility] Comment on above: Performed By: #### C BC #### [facility] Laboratory [address] [address] [address] Henrietta Zavala LIPID PROFILEon 04-12-2022 CHOL-HDL RATIO NORM SEE BELOW Normal [facility] Comment on above: Result Comment: 3.3 - 4.4 LOW RISK 4.4 - 7.1 AVERAGE RISK 7.1 - 11.0 MODERATE RISK >11.0 HIGH RISK Performed By: #### C MP, LIPID #### [facility] Laboratory [address] [address] [address] Henrietta Zavala Cholesterol [Mass/Vol] 235 mg/dL Critically high <=200 [facility] Comment on above: Performed By: #### C MP, LIPID #### [facility] Laboratory [address] [address] [address] Henrietta Zavala Cholesterol in HDL [Mass/Vol] 47 mg/dL Normal 40-60 [facility] Comment on above: Performed By: #### C MP, LIPID #### [facility] Laboratory [address] [address] [address] Henrietta Zavala Cholesterol in LDL [Mass/Vol] 160.8 mg/dL Normal [facility] Comment on above: Performed By: #### C MP, LIPID #### [facility] Laboratory [address] [address] [address] Henrietta Zavala Cholesterol.total/Ch olesterol in HDL [Mass ratio] 5.0 {ratio} Normal [facility] Comment on above: Performed By: #### C MP, LIPID #### [facility] Laboratory [address] [address] [address] Henrietta Zavala HDL NORMAL > or = 60 mg/dl - LO W CARDIOVASCULAR RISK <40 mg/dl - HIGH CARDIOVASCULAR RISK Normal [facility] Comment on above: Performed By: #### C MP, LIPID #### [facility] Laboratory [address] [address] [address] Henrietta Zavala LDL CALC NORMAL SEE BELOW Normal [facility] Comment on above: Result Comment: <100 mg/dl OPTIMAL 100 - 129 mg/dl NEAR OR ABOVE OPTIMAL 130 - 159 mg/dl BORDERLINE HIGH 160 - 189 mg/dl HIGH >190 mg/dl VERY HIGH Performed By: #### C MP, LIPID #### [facility] Laboratory [address] [address] [address] Henrietta Zavala Triglyceride [Mass/Vol] 136 mg/dL Normal <=150 [facility] Comment on above: Performed By: #### C MP, LIPID #### [facility] Laboratory [address] [address] [address] Henrietta Zavala VLDL CALC 27.2 mg/dL Normal [facility] Comment on above: Performed By: #### C MP, LIPID #### [facility] Laboratory [address] [address] [address] Henrietta Zavala PROF 14(COMP METB)on 022 Albumin [Mass/Vol] 3.2 g/dL Critically low 3.4-5.0 [facility] Comment on above: Performed By: #### C MP, LIPID #### [facility] Laboratory [address] [place] [address] Dr. Henrietta Zavala Albumin/Globulin [Mass ratio] 0.8 {ratio} Normal [facility] Comment on above: Performed By: #### C MP, LIPID #### [facility] Laboratory [address] [place] [address] Dr. Henrietta Zavala ALP [Catalytic activity/Vol] 127 U/L Critically high 46-116 [facility] Comment on above: Performed By: #### C MP, LIPID #### [facility] Laboratory [address] [address] [address] Henrietta Zavala ALT [Catalytic activity/Vol] 55 U/L Normal 14-59 [facility] Comment on above: Performed By: #### C MP, LIPID #### [facility] Laboratory [address] [address] [address] Henrietta Zavala Anion gap [Moles/Vol] 13.6 mmol/L Normal [facility] Comment on above: Performed By: #### C MP, LIPID #### [facility] Laboratory [address] [address] [address] Henrietta Zavala AST [Catalytic activity/Vol] 24 U/L Normal 15-37 [facility] Comment on above: Performed By: #### C MP, LIPID #### [facility] Laboratory [address] [address] [address] Henrietta Zavala Bilirubin [Mass/Vol] 0.3 mg/dL Normal 0.2-1.0 [facility] Comment on above: Performed By: #### C MP, LIPID #### [facility] Laboratory [address] [place] [address] Dr. Henrietta Zavala Calcium [Mass/Vol] 8.8 mg/dL Normal 8.5-10.1 [facility] Comment on above: Performed By: #### C MP, LIPID #### [facility] Laboratory [address] [place] [address] Dr. Heniretta Zavala Chloride [Moles/Vol] 107 mmol/L Normal 98-107 [facility] Comment on above: Performed By: #### C MP, LIPID #### [facility] Laboratory [address] [place] [address] Dr. Henrietta Zavala CO2 [Moles/Vol] 25.6 mmol/L Normal 21.0-32.[address] [facility] Comment on above: Performed By: #### C MP, LIPID #### [facility] Laboratory [address] [place] [address] Dr. Henrietta Zavala Creatinine [Mass/Vol] 0.77 mg/dL Normal 0.55-1.02 [facility] Comment on above: Performed By: #### C MP, LIPID #### [facility] Laboratory [address] [place] [address] Dr. Henrietta Zavala EGFR-AF ENGLISH >60 Normal >=60 [facility] Comment on above: Performed By: #### C MP, LIPID #### [facility] Laboratory [address] [place] [address] Dr. Henrietta Zavala EGFR-NON AF ENGLISH >60 Normal >=60 [facility] Comment on above: Performed By: #### C MP, LIPID #### [facility] Laboratory [address] [place] [address] Dr. Henrietta Zavala Globulin (S) [Mass/Vol] 3.8 g/dL Normal [facility] Comment on above: Performed By: #### C MP, LIPID #### [facility] Laboratory [address] [address] [address] Henrietta Zavala Glucose [Mass/Vol] 90 mg/dL Normal 74-106 [facility] Comment on above: Performed By: #### C MP, LIPID #### [facility] Laboratory [address] [address] [address] Henrietta Zavala Potassium [Moles/Vol] 4.2 mmol/L Normal 3.5-5.1 [facility] Comment on above: Performed By: #### C MP, LIPID #### [facility] Laboratory [address] [address] [address] Henrietta Zavala Protein [Mass/Vol] 7.0 g/dL Normal 6.4-8.2 [facility] Comment on above: Performed By: #### C MP, LIPID #### [facility] Laboratory [address] [place] [address] Dr. Henrietta Zavala Sodium [Moles/Vol] 142 mmol/L Normal 136-145 [facility] Comment on above: Performed By: #### C MP, LIPID #### [facility] Laboratory [address] [address] [address] Henrietta Zavala Urea nitrogen [Mass/Vol] 13.0 mg/dL Normal 7.0-18.0 [facility] Comment on above: Performed By: #### C MP, LIPID #### [facility] Laboratory [address] [address] [address] Henrietta Zavala Urea nitrogen/Creatinine [Mass ratio] 16.9 mg/mg Normal [facility] Comment on above: Performed By: #### C MP, LIPID #### [facility] Laboratory [address] [address] [address] Henrietta Zavala Tobacco Screening.on 021 Fall risk assessment a) No falls within the last year [facility] [employer] DO Work Phone: Tobacco use status CPHS b) No -[facility] [employer] [employer] DO Work Phone: KNEE LEFT 3 VWSon 03-30-2021 [facility] [address] [place] [address] ======== Patient Name: ADRIANA RAYGOZA [...] findings. Electronically signed: Jesse Lazaro. Transcribed by: [email or web address], User Resident: Electronically Signed by: JESSE LAZARO @ 03/30/2021 11:00 AM Normal [facility] Comment on above: Order Comment: , , = ========= , Ordering Provider - RAMANDEEP PATEL MD , KNEE RIGHT 3 [facility] 1 KNEE RIGHT 3 S [facility] Department of Radiology [address] [place] [id number] ======== Patient Name: ADRIANA RAYGOZA : 1955 Sex: F Age: Race: White Pt. Location: Patient Status: O Ordered Date: 03/30/2021 9:05:00 AM Completed Date: 03/30/2021 09:07 AM Requesting Provider: RAMANDEEP PATEL Attending Provider: RAMANDEEP PATEL Report Copy To: Signs & Symptoms: M25.569 Pain in unspecified knee I10 History: [place] Comments: Evaluate Exam: KNEE RIGHT 3 [facility] ======== CLINICAL INFORMATION: Chronic right [...] complete loss of joint space. Approved by:Shala Finley 10:24 AM. I, Jesse Lazaro,have reviewed the images and reports Electronically signed: Jesse Lazaro. Transcribed by: [email or web address], User Resident: SHALA EATON Electronically Signed by: JESSE ANKITPoli @ 03/30/2021 03:52 PM I personally read this/these film(s) with this resident Normal [facility] Comment on above: Order Comment: Evalu ate MRI LUMBAR SP W & WO CONTRAS Ton 10-11-2020 MRI LUMBAR SP W & WO CONTRAST STUDY: MRI LUMBAR SP W WO CONTRAST; 10/11/2020 11:35 am INDICATION: POST LAMINECTOMY SYNDROME. COMPARISON: None. ACCESSION NUMBER(S): [id number] ORDERING CLINICIAN: Denis Donohue TECHNIQUE: The lumbar [...] osteomyelitis. * THIS EXAMINATION WAS INTERPRETED AT [facility] Normal [facility] LUMB SP COMP W FLEX/EXT 6 VW Son 09-12-2020 LUMB SP COMP W FLEX/EXT 6 VWS STUDY: LUMB SP COMP W FLEX/EXT 6 VWS ; ; 09/12/2020 8:45 am INDICATION: PAIN. COMPARISON: None. ACCESSION NUMBER(S): [id number] ORDERING CLINICIAN: Denis Donohue FINDINGS: Status post [...] neural foraminal stenosis at L5-S1 level. Normal [facility] Ambulatory Clinical Summaryo n 05-22-2020 Ambulatory Clinical Summary {[id number] }CD:[id number] Normal [facility] Coding Summary.on 05-10-2020 Coding Summary. CODING DATE: 05/10/2020 FINAL [facility] STATUS: Home (Routine DC) PAYOR: Commercial [...] Jasmine CphT Date Saved: 05/10/2020 04:39 pm [facility] Coding Summary.on 05-08-2020 Coding Summary. CODING DATE: 05/08/2020 [facility] STATUS: Home (Routine DC) PAYOR: [...] Jasmine CphT Date Saved: 05/08/2020 12:00 pm [facility] IntraOperative Documentson 0 05-08-2020 IntraOperative Documents [id number]#1. 00CD:127 Normal [facility] Postoperative Documentson Postoperative Documents [id number]#1.0 0CD:127 Normal [facility] Coding Summary.on 05-04-2020 Coding Summary. CODING DATE: 05/04/2020 FINAL [facility] STATUS: Home (Routine DC) PAYOR: [employer] APC DESCRIPTION 5301 Level 1 Upper GI Procedures ADMIT DX: REASON FOR VISIT DX: R10.13 Epigastric pain FINAL DX: PRINCIPAL: K29.50 Unspecified chronic gastritis without bleeding SECONDARY: K25.9 Gastric ulcer, unspecified as acute or chronic, without hemorrhage or perforation R11.2 Nausea with vomiting, unspecified PYMT PROC APC STAT DESCRIPTION DOCTOR NAME DATE [id number] Reid CLINE MD 05/01/2020 phagogastroduodenoscop y, flexible, transoral; with biopsy, single or multiple 98133 Anesthesia for upper Elliot Tena Jr, DO [...] Paredes Revised Date Saved: 05/04/2020 03:45 pm [facility] Progress Note-Physicianon Progress Note-Physician Patient: ADRIANA [...] Cardiovascular: Regular rhythm. Neurologic: Alert, Oriented. Plan [place] [employer] Anesthesiologists (ASA) physical status classification: Class II. Anesthetic Preoperative Plan Anesthesia: General. . Anesthetic plan, risks, benefits, and alternatives discussed with the patient and/or family. Communication: face to face with (patient 5 minutes, Patient educated on smoking cesstation). Normal [facility] Comment on above: Result Comment: Elec tronically Signed By: Elliot Tena Jr, DO\.diogo\Date and Time Signed: 05/03/20 09:34 EDT Main OR Intraoperative Recor don 05-02-2020 Main OR Intraoperative Record IntraOp Document Type FT Summary Primary Physician: Reid NIEVES MD Finalized Date/Time: 05/02/20 13:35:19 Pt. Name: ADRIANA DINERO I /Sex: 1955 Female Med Rec #: [id number] Physician: Reid NIEVES MD Financial #: [id number] Pt. Type: O Room/Bed: / Admit/Disch: 05/01/20 07:03:44 - 05/01/20 23:59:59 Institution: Case Times FT Entry 1 Patient Times In Room 05/01/20 08:17:00 Out Room 05/01/20 08:25:00 Procedure Times Start 05/01/20 08:21:00 Stop 05/01/20 08:23:00 Anesthesia Times Start 05/01/20 08:17:00 Stop 05/01/20 08:25:00 Last Modified By: Savannah Chavis RN 05/01/20 08:26:21 General Comments: 05/02/2020 Chart opened to review and send charges Juvencio Bowen ELEVATOR MECHANIC Case Attendance FT Entry 1 Entry 2 Entry 3 Case Attendee Darinel Matias DO, Elliot Chavis RN, Fior Simms Role Performed Anesthesiologist of Relief Operator - Primary Scrub - Primary Record [...] RN Patient Status Stable Skin. Condition Intact, [place], Warm, and Dry Airway Maintenance Oxygen in Use? No Outcomes Met? Yes Last Modified By: Savannah Chavis RN 05/01/20 06:57:50 Post-Care Text: The patient is free from signs and symptoms of injury related to transfer/transport General Comments: Report given to disk recordist. RHRN Medication Administration FT Pre-Care Text: Verifies allergies, administers prescribed medications and solutions, administers prescribed antibiotic therapy and immunizing agents as ordered, evaluates response to medications Administers prescribed medications and solutions Entry 1 Expiration Date Yes Outcomes Met? Yes Verified Last Modified By: Savannah Chavis RN 05/01/20 06:57:59 Post-Care Text: The patient received appropriate medication(s) safely administered during the perioperative period For [facility] please see scanned medication reconcilliation form for [...] 05/01/20 08:26 Altagracia Bowen CST 05/02/20 13:35 [facility] 05-01-2020 Consent [id number]#1.0 0CD:127 [facility] Consent for Treatmenton 04-11 Consent for Treatment [id number]#1.0 0CD:127 [facility] Discharge Instructionson Discharge Instructions [id number]#1.0 0CD:127 [facility] History and Physicalon 05-01 History and Physical [id number]#1.0 0CD:127 [facility] Inpatient Patient Summaryon 05-01-2020 Inpatient Patient Summary [id number] [facility] Clinical Discharge Instructions PERSON INFORMATION Name: ADRIANA DINERO I [facility]#:[id number] PHYSICIANS Admitting Physician: Reid NIEVES MD Attending Physician: Reid NIEVES MD PCP: TOBY QUINTANA MD Discharge Diagnosis: Antral ulcer Comment: PATIENT EDUCATION INFORMATION Instructions: Medication Leaflets: Follow up: With: Address: When: Reid [facility] [address] [place] [address] Within 2 weeks Type Location Start [facility] Follow Up [facility] 05/22/2020 2:15 PM 05/22/2020 2:30 PM Confirmed MEDICATION LIST Medications to Continue Taking That Have Changed [facility] [facility] [address] [place], [place] [id number], [phone] START: omeprazole (omeprazole 40 mg Cap-DR) 1 [...] every 8 hours. Refills: 1. Comment: Normal [facility] IntraOperative Documentson 0 05-01-2020 IntraOperative Documents [id number]#1.0 0CD:127 Normal [facility] IntraOperative Documents [id number] 0CD:127 [facility] Main OR PACU I Recordon 04-11 Main OR PACU I Record PACU Phase I Document Type FT Summary Primary Physician: Reid NIEVES MD Finalized Date/Time: 05/01/20 09:14:39 Pt. Name: ADRIANA DINEROO.B./Sex: 1955 Female Med Rec #: [id number] Physician: Reid NIEVES MD Financial #: [id number] Pt. Type: O Room/Bed: / Admit/Disch: 05/01/20 [...] By: Ami Donaldson RN 05/01/20 09:14 Normal [facility] Main OR Preoperative Recordo n 05-01-2020 Main OR Preoperative Record Holding Area Document Type FT Summary Primary Physician: Reid NIEVES MD Finalized Date/Time: 05/01/20 07:37:17 Pt. Name: ADRIANA DINERO I /Sex: 1955 Female Med Rec #: [id number] Physician: Reid NIEVES MD Financial #: [id number] Pt. Type: O Room/Bed: / Admit/Disch: 05/01/20 [...] Signed By: Lizbeth Diamond RN 05/01/20 07:37 [facility] Monitor Recordon 05-01-2020 Monitor Record [id number]. 00CD:127 Normal [facility] Patient Education - Texton 0 05-01-2020 Patient Education - Text Normal [facility] Ambulatory Clinical Summaryo n 04-24-2020 Ambulatory Clinical Summary {[id number]}CD:[id number] Normal [facility] Auto Diffon 04-24-2020 Basophils/100 WBC (Bld) 0.5 % Normal 0.0-2.0 [facility] Comment on above: Order Comment: Order Added by Discern Expert. Performed By: #### 2 [id number], [id number] #### [facility] Laboratory [address] [place] [address] Basophils/Leukocytes Auto (Bld) [Pure # fraction] 0.0 E9/L Normal 0.0-0.2 [facility] Comment on above: Order Comment: Order Added by Discern Expert. Performed By: #### 2 [id number], [id number], [id number], [id number] #### [facility] Laboratory [address] [place] [address] Eosinophils/100 WBC (Bld) 2.9 % Normal 0.0-8.0 [facility] Comment on above: Order Comment: Order Added by Discern Expert. Performed By: #### 2 [id number], [id number], [id number], [id number], [id number] #### [facility] [address] [place] [address] Eosinophils/Leukocyt es Auto (Bld) [Pure # fraction] 0.3 E9/L Normal 0.0-0.5 [facility] Comment on above: Order Comment: Order Added by Discern Expert. Performed By: #### 2 181273, 2317911, 5788841, 5843028, [id number] #### [facility] [address] [place] [address] Lymphocytes/100 WBC (Bld) 23.7 % Normal 14.0-50.0 [facility] Comment on above: Order Comment: Order Added by Discern Expert. Performed By: #### 2 313279, 9387837, 3410110, 1771430, 79098849 #### [facility] [address] [place] [address]758 Lymphocytes/Leukocyt es Auto (Bld) [Pure # fraction] 2.2 E9/L Normal 1.0-4.0 [facility] Comment on above: Order Comment: Order Added by Discern Expert. Performed By: #### 2 540975, 3343388, 6785172, 0341958, 70074091 #### [facility] [address] [place] [address] 76875 Monocytes/100 WBC (Bld) 7.4 % Normal 4.0-14.0 [facility] Comment on above: Order Comment: Order Added by Ynes Expert. Performed By: #### 2 819629, 7022470, 5836042, 5695212, 38479566 #### [facility] [address] [place] [address]256 Monocytes/Leukocytes Auto (Bld) [Pure # fraction] 0.7 E9/L Normal 0.2-1.0 [facility] Comment on above: Order Comment: Order Added by Ynes Expert. Performed By: #### 2 089931, 3988652, 4287070, 3492441, 75202883 #### [facility] [address] [place] [address] Neutrophils/100 WBC (Bld) 65.5 % Normal 36.0-75.0 [facility] Comment on above: Order Comment: Order Added by Ynes Expert. Performed By: #### 2 670136, 4202454, 5398524, 1583631, 28094853 #### [facility] [address] [place] [address] 720[address] Neutrophils/Leukocyt es Auto (Bld) [Pure # fraction] 6.0 E9/L Normal 2.0-7.5 [facility] Comment on above: Order Comment: Order Added by Ynes Expert. Performed By: #### 2 899685, 3196226, 2669430, 7722811, 49232141 #### [facility] [address] [place] [address] CBC w/ Auto Diffon 0 Erythrocyte distribution width (RBC) [Ratio] 16.1 % High 10.9-14.2 [facility] Comment on above: Performed By: #### 2 836337, 6018515, 3046970, 8573308, 85655087 #### [facility] [address] [place], [place] [address] Hematocrit (Bld) [Volume fraction] 45.1 % Normal 34.0-46.0 [facility] Comment on above: Performed By: #### 2 574403, 9681457, 6027503, 0464371, 04304541 #### [facility] [address] [place] [address] 13650 Hemoglobin (Bld) [Mass/Vol] 15.0 g/dL Normal 12.0-16.0 [facility] Comment on above: Performed By: #### 2 710775, 5874478, 5428502, 5578995, 92712997 #### [facility] [address] [place] [address] 13797 MCH (RBC) [Entitic mass] 27.2 pg Normal 27.0-34.0 [facility] Comment on above: Performed By: #### 2 420569, 3624313, 4400614, 1163278, 78018814 #### [facility] [address] [place] [address] 31794 MCHC (RBC) [Mass/Vol] 33.2 g/dL Normal 31.4-36.0 [facility] Comment on above: Performed By: #### 2 096438, 7383341, 8858171, 8377934, 44261234 #### [facility] [address] [place] [address]20 MCV (RBC) [Entitic vol] 82.0 fL Normal 80.0-100.0 [facility] Comment on above: Performed By: #### 2 797897, 9449415, 0094010, 3823312, 98442031 #### [facility] [address] [place] [address] Platelet mean volume (Bld) [Entitic vol] 7.3 fL Normal 6.4-10.8 [facility] Comment on above: Performed By: #### 2 948312, 1548418, 8776329, 0712270, 63807739 #### [facility] [address] [place] [address] Platelets (Bld) [#/Vol] 253.0 E9/L Normal 150.0-500.0 [facility] Comment on above: Performed By: #### 2 365242, 0901415, 7719699, 2025458, 74027339 #### [facility] [address] [place] [address] 12134 RBC (Bld) [#/Vol] 5.5 E12/L Normal 4.3-5.9 [facility] Comment on above: Performed By: #### 2 952229, 1393135, 4135850, 4084700, 20116739 #### [facility] [address] [place] [address] WBC corrected for nucl RBC Auto (Bld) [#/Vol] 9.1 E9/L Normal 4.0-11.0 [facility] Comment on above: Performed By: #### 2 392065, 3396965, 6851080, 5416651, 11043244 #### [facility] [address] [place] [address] [facility] 04-24-2020 Albumin [Mass/Vol] 3.7 g/dL Normal 3.3-5.0 [facility] Comment on above: Performed By: #### 2 677652, 8110781, 6351716, 9546845, 87855275 #### [facility] [address] [place] [address]7561 Albumin [Mass/Vol] 1.0 g/dL Low 1.1-2.2 [facility] Comment on above: Performed By: #### 2 726899, 8865618, 8955213, 9457058, 25089227 #### [facility] [address] [place] [address] ALP [Catalytic activity/Vol] 107 Int._Unit/L High 21-98 [facility] Comment on above: Performed By: #### 2 804874, 9943040, 4534724, 1482209, 06107111 #### [facility] [address] [place] [address] ALT No additional P-5'-P [Catalytic activity/Vol] 17 Int._Unit/L Normal 6-46 [facility] Comment on above: Performed By: #### 2 052680, 2246379, 0501404, 1138410, 42037212 #### [facility] [address] [place] [address] Anion gap [Moles/Vol] 11 mmol/L Normal 6-16 [facility] Comment on above: Performed By: #### 2 563804, 5395457, 3672480, 2604810, 69474052 #### [facility] [address] [place] [address]2657 AST [Catalytic activity/Vol] 21 Int._Unit/L Normal 5-43 [facility] Comment on above: Performed By: #### 2 817392, 9037364, 8083094, 9017486, 40177506 #### [facility] [address] [place] [address] Bilirubin [Mass/Vol] 0.5 mg/dL Normal 0.0-1.1 [facility] Comment on above: Performed By: #### 2 626856, 5238909, 1043701, 5610559, 41345519 #### [facility] [address] [place] [address] Calcium [Mass/Vol] 9.0 mg/dL Normal 8.9-11.1 [facility] Comment on above: Performed By: #### 2 860147, 1917687, 1247614, 3838303, 10793412 #### [facility] [address] [place] [address] Chloride [Moles/Vol] 107 mmol/L Normal 101-111 [facility] Comment on above: Performed By: #### 2 719765, 3620713, 4531828, 9194509, 34919647 #### [facility] [address] [place] [address] CO2 [Moles/Vol] 27 mmol/L Normal 21-31 [facility] Comment on above: Performed By: #### 2 699076, 2775132, 9352007, 4914420, 29446037 #### [facility] [address] [place] [address] Creatinine [Mass/Vol] 0.8 mg/dL Normal 0.5-1.3 [facility] Comment on above: Performed By: #### 2 629200, 7881845, 0204746, 5712090, 11454194 #### [facility] [address] [place] [address] Globulin (S) [Mass/Vol] 3.7 g/dL Normal 1.4-4.0 [facility] Comment on above: Performed By: #### 2 913640, 8637219, 3345735, 8404224, 26505828 #### [facility] [address] [place] [address] Glucose [Mass/Vol] 134 mg/dL Normal 55-199 [facility] Comment on above: Result Comment: If t his glucose result represents a fasting glucose, interpretation should refer to the following reference range: 55-99 mg/dL Performed By: #### 2 597979, 7077691, 9851130, 2692289, 16356559 #### [facility] [address] [place] [address] Potassium [Moles/Vol] 3.9 mmol/L Normal 3.5-5.3 [facility] Comment on above: Performed By: #### 2 044248, 6901904, 8381230, 6986599, 14261239 #### [facility] [address] [place] [address] Protein [Mass/Vol] 7.4 g/dL Normal 6.0-7.8 [facility] Comment on above: Performed By: #### 2 038366, 5785056, 3830024, 9542298, 19890510 #### [facility] [address] [place] [address] Sodium [Moles/Vol] 141 mmol/L Normal 135-145 [facility] Comment on above: Performed By: #### 2 568024, 6705522, 3862778, 3013268, 34858783 #### [facility] [address] [place] [address] Urea nitrogen [Mass/Vol] 17 mg/dL Normal 5-21 [facility] Comment on above: Performed By: #### 2 551389, 1670064, 1861075, 8007550, 10211123 #### [facility] [address] [place] [address] Urea nitrogen/Creatinine [Mass ratio] 21 No Units High 10-20 [facility] Comment on above: Performed By: #### 2 088158, 1610860, 3828841, 4290159, 46609661 #### [facility] [address] [place] [address] Consent for Treatmenton 04-10 Consent for Treatment [id number] 0CD:127 Normal [facility] Lipase Levelon 04-24-2020 Lipase [Catalytic activity/Vol] 40 unit/L Normal 13-58 [facility] Comment on above: Performed By: #### 2 103603, 1443543, 1139970, 5112279, 40769738 #### [facility] [address] [place] [address] Physician Orderon 04-24-2020 Physician Order [id number] CD:127 Normal [facility] eGFRon 04-24-2020 GFR/1.73 sq M predicted among blacks MDRD (S/P/Bld) [Vol rate/Area] mL/min/{1.73_m2} Normal >=59 [facility] Comment on above: Order Comment: Order added by Discern Expert. Result Comment: eGFR is race adjusted. AA=. Performed By: #### 2 783719, 0974157, 4806330, 3297435, 49411133 #### [facility] [address] [place] [address] GFR/1.73 sq M predicted among non-blacks MDRD (S/P/Bld) [Vol rate/Area] mL/min/{1.73_m2} Normal >=59 [facility] Comment on above: Order Comment: Order added by Discern Expert. Result Comment: Ornamental Ironworker Helper farhan kidney disease could be indicated at eGFR's of less than 60 mL/min/1.73m2. Kidney failure is indicated at less than 15 mL/min/1.73m2. Performed By: #### 2 031145, 0591233, 6408882, 1402817, 27848100 #### [facility] [address] [place] [address] PROGRESSon 11-04-2019 PROGRESS HNO ID: [id number] Author: Bridger Ma Service: ? Author Type: Physician Type: Progress Notes Filed: 11/04/2019 5:12 PM Note Text: Bridger Ma MD Department of Orthopaedics Orthopaedics [address] [place] [address] Dept: [phone] October 05, 2019 CHIEF COMPLAINT: New Patient [...] electronic medical record. Caitlyn Cantu, LIZZY [facility] [address] Toby Quintana MD [address] [place] [phone] This note was partially generated using Flowline voice recognition system, and there may be some incorrect words, spellings, and punctuation that were not noted in checking the note before saving. Bridger Ma MD [facility] CNOVon 10-05-2019 CNOV Office Visit (ORMDNA ) ADRIANA DINERO ([id number]) 1955 F Date Time Provider Department 10/05/19 2:45 PM BRIDGER MA During your visit today, we recorded the following information about you: Pulse Blood pressure Weight Height 81/minute 121/58 124.2 kg 1.676 m Eleanor Antione Loya 11/04/2019 5:12 PM Signed Patient presents with: New Patient: Right knee pain - Ref. 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 Patient had an x-ray done at [facility] on 11/02/18 and a MRI on 11/30/18. Patient hand carried copies of the reports and films on a CD. with patient today. Referred by Caitlyn Cantu. Taking Closter and Naproxen for the pain and does not help. Using a walker today and as needed at home. Bridger Ma MD 11/04/2019 5:12 PM Signed Bridger Ma MD Department of Orthopaedics Orthopaedics [address] [place] [address] Dept: [phone] October 05, 2019 CHIEF COMPLAINT: New Patient [...] or electronic medical record. LIZZY Graham [facility] [address] Toby Quintana MD [address] [place] [phone] This note was partially generated using Flowline voice recognition system, and there may be some incorrect words, spellings, and punctuation that were not noted in checking the note before saving. Bridger Ma MD Referring Provider: CAITLYN CANTU [[id number]] Allergies As of Date: 10/05/2019 Noted Allergy [...] mg injection (CELESTONE)Disp: Rfl: [facility] [[id number]] Order #: [id number]: 1 Large Joint Arthro/Inj: R knee joint [VWF674] Order #: [id number] betamethasone acetate-betamethasone sodium phosphate 6 mg injection [...] Inj-ORTHO Letter Text Encounter Status:Closed by BRIDGER AM MD on 11/04/19 [facility] PROGRESSon 10-05-2019 PROGRESS HNO ID: [id number] Author: Eleanor Talbot Ma Service: ? 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 Patient had an x-ray done at [facility] on 11/02/18 and a MRI on 11/30/18. Patient hand carried copies of the reports and films on a CD. with patient today. Referred by Caitlyn Cantu. Taking Closter and Naproxen for the pain and does not help. Using a walker today and as needed at home. Normal [facility] CREATININEon 08-26-2019 Creatinine [Mass/Vol] 0.80 mg/dL Normal 0.50 - 1.05 [facility] Comment on above: Performed By: #### C REAT #### [address] [address] Creatinine [Mass/Vol] mg/dL Normal >60 [facility] Comment on above: Performed By: #### C REAT #### [address] [address] Result Comment: CALC ULATIONS OF ESTIMATED GFR ARE PERFORMED USING THE MDRD STUDY EQUATION FOR THE IDMS-TRACEABLE CREATININE METHODS. CLIN CHEM 2007;53:766-72 ELECTROLYTE PANELon 08-26-20 19 Anion gap [Moles/Vol] 14 mmol/L Normal 10 - 20 [facility] Comment on above: Performed By: #### E LECT #### [address] [address] Chloride [Moles/Vol] 104 mmol/L Normal 98 - 107 [facility] Comment on above: Performed By: #### E LECT #### [address] [address] HCO3 (Bld) [Moles/Vol] 29 mmol/L Normal 21 - 32 [facility] Comment on above: Performed By: #### E LECT #### [address] [address] Potassium [Moles/Vol] 4.6 mmol/L Normal 3.5 - 5.3 [facility] Comment on above: Performed By: #### E LECT #### [address] [address] Sodium [Moles/Vol] 142 mmol/L Normal 136 - 145 [facility] Comment on above: Performed By: #### E LECT #### [address] [address] UREA NITROGENon 08-26-2019 Urea nitrogen [Mass/Vol] 14 mg/dL Normal 6 - 23 [facility] Comment on above: Performed By: #### U CARLOS #### [address] [address] [facility] CARDIAC STRESS/REST INJE CTIONon 08-25-2019 [facility] CARDIAC STRESS/REST INJECTION Patient Name: ADRIANA DINERO STUDY: MYOCARDIAL PERFUSION STRESS TEST WITH LEXISCAN Performing facility: [facility], [address] [place] [address], [address] Provider: GURU LU PCP: Dr. Poli QUINTANA Supervising provider: Poli VILLAFANA INDICATION: DYSPNEA EDEMA HISTORY: Gender: F; Age: 64 y/o ; Height: 170.18 cm; Weight: 127.536479 kg. SOB High Cholesterol; Family HX CAD; PALPITATIONS COMPARISON: ACCESSION NUMBER(S): [id number] ORDERING CLINICIAN: IBAN LU TECHNIQUE: TWO DAY [...] Electronically signed by: IBAN LU MD Normal [facility] OT-MRI KNEE RT WO CON IMPORT on 07-27-2019 OT-MRI KNEE RT WO CON IMPORT Images were obtained outside of [facility] [id number] Normal [facility] CNOVon 07-07-2019 CNOV Office Visit (SPNMED ) ADRIANA DINERO ([id number]) 1955 F Date Time Provider Department 07/07/19 9:40 AM CAITLYN CANTU SPNMYAN During your visit today, we recorded the following information about you: Pulse Blood pressure Weight Height 80/minute 126/55 124.1 kg 1.676 m LIZZY Graham 07/07/2019 1:08 PM Signed BEVERLEY Lopez [facility] [address] [place] [address] 07/07/2019 Assessment Diagnosis: Encounter Diagnosis ICD-10-CM 1. [...] told for multiple years that she has knyu-es-mmxv arthritis in the right knee and this [...] record for those providers who practice within [facility] or with access to [employer] via [facility], or via letter. - [...] past--performed in [address] Jones in [place]. The procedure was a spinal laminectomy and fusion L2-4, and subsequent revision L2-5 lami/fusion with posterior hardware and interbody cages. 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 Author Type: Physician Operator Automated Process Type: Progress Notes Filed: 07/07/2019 1:08 PM Note Text: Caitlyn Cantu PA-C [facility] [address] [place] [address] [place] [address] 07/07/2019 Assessment Diagnosis: Encounter Diagnosis ICD-10-CM 1. [...] told for multiple years that she has mdcq-hp-hjaf arthritis in the right knee and this [...] record for those providers who practice within [facility] or with access to [facility] via MD Connect, or via letter. SUBJECTIVE: [...] past--[place] [address] Jones in [place]. The procedure was a spinal laminectomy and fusion L2-4, and subsequent revision L2-5 lami/fusion with posterior hardware and interbody cages. 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 IMAGING STUDIES: See above Normal [facility] CT-CT cervical spine w con I MPORTon 04-08-2019 CT-CT cervical spine w con IMPORT Images were obtained outside of [facility] [id number] Normal [facility] CT-CT cervical spine w con IMPORT Images were obtained outside of [facility] [id number] Normal [facility] CT-CT cervical spine w con IMPORT Images were obtained outside of [facility] [id number] Normal [facility] CT-CT lumbar spine w con IMP Edi 04-08-2019 CT-CT lumbar spine w con IMPORT Images were obtained outside of [facility] [id number] Normal [facility] CT-CT lumbar spine w con IMPORT Images were obtained outside of [facility] [id number] Normal [facility] CT-CT lumbar spine w con IMPORT Images were obtained outside of [facility] [id number] Normal [facility] OT-IR myelogram spine total IMPORTon 04-08-2019 OT-IR myelogram spine total IMPORT Images were obtained outside of [facility] [id number] Normal [facility] OT-IR myelogram spine total IMPORT Images were obtained outside of [facility] [id number] Normal [facility] OT-IR myelogram spine total IMPORT Images were obtained outside of [facility] [id number] Normal [facility] OT-MRI C-SPINE WO CON IMPORT on 02-25-2019 OT-MRI C-SPINE WO CON IMPORT Images were obtained outside of [facility] [id number] Normal [facility] OT-XR KNEE RT 4V OR > IMPORT on 11-30-2018 OT-XR KNEE RT 4V OR > IMPORT Images were obtained outside of [facility] [id number] Normal [facility] Vital Signs Date Time Vital Sign Value Performing Clinician Facility 03-22-2024 13:18-0400 Body height 165.1 cm [facility] 03-22-2024 13:18-0400 Body mass index (BMI) [Ratio] 39.7 kg/m2 [facility] 03-22-2024 13:18-0400 Body weight 108.4 kg [facility] 03-22-2024 13:18-0400 Diastolic blood pressure 77 mm[Hg] [facility] 03-22-2024 13:18-0400 Heart rate 75 /min [facility] 03-22-2024 13:18-0400 Systolic blood pressure 127 mm[Hg] [facility] 02-10-2024 13:04-0400 Body height 167.64 cm [facility] 02-10-2024 13:04-0400 Body mass index (BMI) [Ratio] 38.5 kg/m2 [facility] 02-10-2024 13:04-0400 Body weight 108.4 kg [facility] 02-10-2024 13:04-0400 Diastolic blood pressure 73 mm[Hg] [facility] 02-10-2024 13:04-0400 Heart rate 85 /min [facility] 02-10-2024 13:04-0400 Systolic blood pressure 105 mm[Hg] [facility] 01-19-2024 08:44-0400 Body height 167.64 cm [facility] 12-30-2023 09:55-0500 Body height 167.64 cm [facility] 12-30-2023 09:55-0500 Body mass index (BMI) [Ratio] 38.9 kg/m2 [facility] 12-30-2023 09:55-0500 Body weight 109.31 kg [facility] 12-30-2023 09:55-0500 Diastolic blood pressure 76 mm[Hg] [facility] 12-30-2023 09:55-0500 Heart rate 69 /min [facility] 12-30-2023 09:55-0500 Systolic blood pressure 120 mm[Hg] [facility] 12-09-2023 10:32-0500 Diastolic blood pressure 80 mm[Hg] Iban Lu MD Work Phone: [facility] 12-09-2023 10:32-0500 Systolic blood pressure 130 mm[Hg] Iban Lu MD Work Phone: [facility] 12-09-2023 09:46-0500 Body height 167.6 cm Iban Lu MD Work Phone: [facility] 12-09-2023 09:46-0500 Body mass index (BMI) [Ratio] 39.06 kg/m2 Iban Lu MD Work Phone: [facility] 12-09-2023 09:46-0500 Body weight 109.77 kg Iban Lu MD Work Phone: [facility] 12-09-2023 09:46-0500 Heart rate 68 /min Iban Lu MD Work Phone: [facility] 08-20-2023 09:00-0400 Body height 167.64 cm Toby Quintana Other [employer] [facility] [employer] Other 08-20-2023 09:00-0400 Body mass index (BMI) [Ratio] 38.38 kg/m2 Toby Quintana Other [employer] Other 08-20-2023 09:00-0400 Body weight 107.87 kg Toby Quintana Other [employer] Other 08-20-2023 09:00-0400 Diastolic blood pressure 75 mm[Hg] Toby Quintana Other [employer] Other 08-20-2023 09:00-0400 Systolic blood pressure 108 mm[Hg] Toby Quintana Other [employer] Other 04-24-2023 11:15-0400 Body height 167.64 cm Toby Quintana Other [employer] Other 04-24-2023 11:15-0400 Body mass index (BMI) [Ratio] 38.73 kg/m2 Toby Quintana Other [employer] Other 04-24-2023 11:15-0400 Body weight 108.86 kg Toby Quintana Other [employer] Other 04-24-2023 11:15-0400 Diastolic blood pressure 79 mm[Hg] Toby Quintana Other [employer] Other 04-24-2023 11:15-0400 Systolic blood pressure 114 mm[Hg] Toby Quintana Other [employer] Other 02-07-2023 09:30-0400 Body height 167.64 cm Toby Quintana Other [facility] Other 02-07-2023 09:30-0400 Body mass index (BMI) [Ratio] 39.99 kg/m2 Toby Quintana Other [facility] Other 02-07-2023 09:30-0400 Body weight 112.4 kg Toby Quintana Other [facility] Other 02-07-2023 09:30-0400 Diastolic blood pressure 68 mm[Hg] Toby Quintana Other [facility] Other 02-07-2023 09:30-0400 Respiratory rate 18 /min Toby Quintana Other [facility] Other 02-07-2023 09:30-0400 SaO2% (BldA) [Mass fraction] 93 % Toby Quintana Other [facility] Other 02-07-2023 09:30-0400 Systolic blood pressure 142 mm[Hg] Toby Quintana Other [facility] Other 01-08-2023 10:00-0500 Body height 167.64 cm Samuel Compa II Other [facility] Other 01-08-2023 10:00-0500 Body mass index (BMI) [Ratio] 40.19 kg/m2 Samuel Guajardoisle II Other [facility] Other 01-08-2023 10:00-0500 Body weight 112.95 kg Samuel Guajardoisle II Other [facility] Other 12-09-2022 13:25-0500 Body height 167.64 cm Toby Quintana Work Phone: [employer] [address] DO Work Phone: 12-09-2022 13:25-0500 Body mass index (BMI) [Ratio] 40.03 kg/m2 Toby Quintana [facility]: [facility] [employer] [facility] DO Work Phone: 12-09-2022 13:25-0500 Body surface area Derived from formula 2.19 m2 Toby Quintana Work Phone: [employer] 250 DO Work Phone: 12-09-2022 13:25-0500 Body weight 112.49 kg Toby Quintana Work Phone: [employer] 250 DO Work Phone: 12-09-2022 13:25-0500 Diastolic blood pressure 80 mm[Hg] Toby Quintana Work Phone: [facility] [employer] [address] DO Work Phone: 12-09-2022 13:25-0500 Heart rate 78 /min Toby Quintana Work Phone: [facility] 250 DO Work Phone: 12-09-2022 13:25-0500 Systolic blood pressure 118 mm[Hg] Toby Quitnana Work Phone: [facility] 250 DO Work Phone: 11-22-2022 09:00-0500 Body height 167.64 cm Leeann Blades Other [facility] Other 11-22-2022 09:00-0500 Body mass index (BMI) [Ratio] 39.54 kg/m2 Leeann Blades Other [facility] Other 11-22-2022 09:00-0500 Body weight 111.13 kg Leeann Blades Other [facility] Other 09-04-2021 13:27-0400 Body height 170.18 cm Toby Quintana Work Phone: [facility] 250 DO Work Phone: 09-04-2021 13:27-0400 Body mass index (BMI) [Ratio] 39.78 kg/m2 Toby Quintana Work Phone: [facility] 250 DO Work Phone: 09-04-2021 13:27-0400 Body surface area Derived from formula 2.24 m2 Toby Quintana Work Phone: [facility] 250 DO Work Phone: 09-04-2021 13:27-0400 Body weight 115.21 kg Toby Quintana Work Phone: [facility] 250 DO Work Phone: 09-04-2021 13:27-0400 Diastolic blood pressure 78 mm[Hg] Toby E Pat Work Phone: [facility] 250 DO Work Phone: 09-04-2021 13:27-0400 Heart rate 80 /min Toby Quintana Work Phone: [facility] 250 DO Work Phone: 09-04-2021 13:27-0400 Systolic blood pressure 104 mm[Hg] Toby Kanwal Pat Work Phone: [facility] 250 DO Work Phone: Encounters Encounter Date Encounter Type Care Provider Facility Start: 03-22-2024 End: 03-22-2024 [facility] Work Phone: Start: 03-22-2024 End: 03-22-2024 Patient encounter procedure [facility] Work Phone: Start: 02-10-2024 End: 02-10-2024 ambulatory [facility] Work Phone: Start: 02-10-2024 End: 02-10-2024 Patient encounter procedure [facility] Work Phone: Start: 01-19-2024 End: 01-19-2024 Patient encounter procedure [facility] Work Phone: Start: 01-14-2024 Non-patient / Non-visit [facility] Work Phone: Start: 01-05-2024 Non-patient / Non-visit [facility] Work Phone: Start: 12-30-2023 Patient encounter procedure [facility] Start: 12-30-2023 End: 12-30-2023 ambulatory [facility] Work Phone: Start: 12-30-2023 End: 12-30-2023 Patient encounter procedure [facility] Work Phone: Start: 12-19-2023 End: 12-19-2023 ambulatory Tboy Quintana Other [facility] Other Start: 12-19-2023 Telephone encounter Toby Pat [facility] Start: 12-17-2023 End: 12-17-2023 ambulatory Toby Quintana Other [facility] Other Start: 12-17-2023 Telephone encounter Toby Quintana [facility] Start: 12-16-2023 (Televisit) Televisit Toby Quintana [facility] Start: 12-16-2023 End: 12-16-2023 ambulatory Toby Quintana Other [facility] Other Start: 12-09-2023 End: 12-09-2023 ambulatory [facility] Start: 12-09-2023 End: 12-09-2023 Office outpatient visit 25 minutes Iban Lu MD Work Phone: [facility] Comment on above: Supraventricular tac hycardia by ECG (Primary Dx); Mixed hyperlipidemia; Palpitations; Class II obesity Start: 12-08-2023 End: 12-08-2023 ambulatory Toby Quintana Other [facility] Other Start: 12-08-2023 Telephone encounter Toby Pat [facility] Start: 11-04-2023 End: 11-04-2023 ambulatory Toby Quintana Other [facility] Other Start: 11-04-2023 Telephone encounter Toby Pat [facility] Start: 10-21-2023 (Televisit) Televisit Toby Quintana [facility] Start: 10-21-2023 End: 10-21-2023 ambulatory Toby Quintana Other [facility] Other Start: 10-21-2023 End: 10-21-2023 Patient encounter procedure [facility] Work Phone: Start: 10-20-2023 End: 10-20-2023 ambulatory Toby Quintana Other [facility] Other Start: 10-20-2023 Telephone encounter Toby Pat [facility] Start: 09-25-2023 (Televisit) Televisit Toby Quintana [facility] Start: 09-25-2023 End: 09-25-2023 ambulatory Toby Quintana Other [facility] Other Start: 09-22-2023 (Televisit) Televisit Toby Quintana [facility] Start: 09-22-2023 End: 09-22-2023 ambulatory Toby Quintana Other [facility] Other Start: 09-22-2023 Telephone encounter Toby Pat [facility] Start: 08-20-2023 End: 08-20-2023 ambulatory Toby Quintana Other [facility] Other Start: 08-20-2023 Patient encounter procedure Toby Pat [facility] Start: 05-22-2023 Telephone encounter Toby eugene Work Phone: [facility] 600 DO Work Phone: Start: 05-12-2023 End: 05-12-2023 ambulatory Toby Quintana Other [facility] Other Start: 05-12-2023 Telephone encounter Toby Quintana [facility] Start: 04-24-2023 End: 04-24-2023 ambulatory Toby Quintana Other [facility] Other Start: 04-24-2023 Office outpatient vi sit 15 minutes Toby Quintana [facility] Start: 04-11-2023 End: 04-11-2023 ambulatory Toby Quintana Other [facility] Other Start: 04-11-2023 Telephone encounter Toby Quintana [facility] Start: 03-13-2023 End: 03-13-[address] EVIN BYERS Facility:UNKNOWN Start: 03-13-[address] Toby Quintana Facility:[id number] Start: 02-07-2023 End: 02-07-2023 ambulatory Toby Quintana Other [facility] Other Start: 02-07-2023 Patient encounter procedure Toby Quintana [facility] Start: 02-03-2023 End: 02-03-2023 ambulatory Leeann Mariano Other [facility] Other Start: 02-03-2023 Telephone encounter Leeann Quintana [facility] [employer] Start: 01-27-2023 End: 01-27-2023 ambulatory Leeann Blades Other [facility] Other Start: 01-27-2023 Telephone encounter Leeannmecca Quintana F [facility] Start: 01-21-[address] TOBY QUINTANA Facil ity:H1 Start: 01-16-2023 End: 01-16-2023 ambulatory Samuel Chatman II Other [facility] Other Start: 01-16-2023 Telephone encounter Samuel Chatman II [facility] [facility] [facility] Start: 01-08-2023 [facility] visit new patient Samuel tyler II [facility] [place] [facility] Start: 01-08-2023 End: 01-08-2023 ambulatory Samuel Chatman II Facility:[facility] Start: 01-08-2023 End: 01-08-2023 ambulatory MD Toby Quintana Work Phone: [facility] Work Phone: Start: 01-08-2023 End: 01-08-2023 Patient encounter procedure MD Toby Quintana Work Phone: [facility] [place] [facility] Start: 01-02-2023 End: 01-02-2023 ambulatory Toby Quintana Other [facility] Other Start: 01-02-2023 Telephone encounter Leeann Blades F PG [facility] Start: 12-30-2022 End: 12-30-2022 ambulatory Leeann Blades Other [facility] Other Start: 12-30-2022 Telephone encounter Leeann Blades F PG [facility] Start: 12-26-2022 End: 12-26-2022 ambulatory Leeann Blades Other [facility] Other Start: 12-26-2022 Telephone encounter Leeann Blades F PG [facility] Start: 12-19-2022 End: 12-19-2022 ambulatory Leeann Blades Other [facility] Other Start: 12-19-2022 Telephone encounter Leeann Blades F PG [facility] Start: 12-17-2022 End: 12-17-2022 ambulatory Toby Quintana Other [facility] Other Start: 12-17-2022 Telephone encounter Toby Quintana [facility] Start: 12-10-2022 End: 12-10-2022 ambulatory Toby Quintana Other [facility] Other Start: 12-10-2022 Telephone encounter Toby Quintana [facility] Start: 12-09-2022 Office outpatient vi sit 25 minutes Toby Quintana Work Phone: [facility] 250 DO Work Phone: Start: 12-09-[address] Iban Lu Facility: Start: 11-25-2022 End: 11-25-2022 ambulatory Leeann Blades Other [facility] [employer] Other Start: 11-25-2022 Telephone encounter Leeann Quintana [facility] [employer] Start: 11-22-2022 Office outpatient ne w 45 minutes Leeann Blades [facility] Start: 11-22-2022 End: 11-22-2022 ambulatory Leeann Blades Facility:[facility] Start: 11-22-2022 End: 11-22-2022 ambulatory MD Toby Quintana Work Phone: [facility] Work Phone: Start: 11-22-2022 End: 11-22-2022 Patient encounter procedure MD Toby Quintana Work Phone: [facility] [place] Work Phone: Start: 11-05-2022 Adult health examination Nannette Quintana Other [facility] [employer] Other Start: 11-05-2022 Pre-procedure evalua tion check Toby Quintana Other [facility] [employer] Other Start: 10-04-2022 End: 10-05-[address] SHALA OMER Facility:[facility]1 Start: 09-16-2022 Rx Renewal Toby Quintana Work Phone: [facility] 250 DO Work Phone: Start: 07-24-2022 End: 07-24-[address] TOBY QUINTANA Facility:[facility] Start: 07-22-2022 End: 07-22-[address] LAUREL BRAVO Facility:[facility] Start: 04-18-2022 Encounter for genera l adult medical examination without abnormal findings DR TOBY QUINTANA [facility] Start: 04-13-2022 End: 04-14-[address] TOBY QUINTANA Facility:[facility]1 Start: 04-12-2022 End: 04-13-[address] TOBY QUINTANA Facility:[facility] Start: 04-12-2022 End: 04-13-2022 Encounter for general adult medical examination without abnormal findings DR TOBY QUINTANA Facility: Start: 09-04-2021 RUST, Provider: Iban Lu, Status: Pen, Time: 2:00 PM Toby Quintana [facility] [place] Work Phone: Start: 09-04-2021 Office outpatient vi sit 25 minutes Toby Quintana [facility] Work Phone: Start: 08-30-2021 Rx Renewal Toby Quintana [facility] [place] Work Phone: Procedures Date Procedure [...] procedure 12/09/2024 9:00 AM EST Office Visit [facility] [address] [place] [address] Iban Lu MD [address] [place] [address] [facility] Start: 03-22-2024 Patient referral [facility] Work Phone: Start: 01-19-2024 Patient referral [facility] Work Phone: Start: 12-09-2023 End: 12-09-2024 Basic metabolic 2000 panel - Serum or Plasma Basic Metabolic Panel Lab Routine Supraventricular tachycardia by ECG Palpitations Expected: 12/09/2023 (Approximate), Expires: 12/09/2024 [facility] Service Area Work Phone: Comment on above: Expected: 12/09/2023 (Approximate), Expires: 12/09/2024 Start: 12-09-2023 FUV, Provider: Iban Lu, Status: Pen, Time: 10:00 AM FUV, Provider: Iban Lu, Status: Pen, Time: 10:00 AM [facility] [employer] 250 DO Work Phone: Start: 07-11-2023 COVID-19 Vaccine ( season) COVID-19 Vaccine ( season) [facility] Start: 07-11-2023 Influenza vaccination Influenza Vacc ine (#1) [facility] Start: 09-20-2022 FUV, Provider: Iban Lu, Status: Pen, Time: 2:20 PM FUV, Provider: Iban Lu, Status: Pen, Time: 2:20 PM [facility] [employer] 250 DO Work Phone: Start: 09-05-2022 FUV, Provider: Iban Lu, Status: Pen, Time: 11:20 AM FUV, Provider: Iban Lu, Status: Pen, Time: 11:20 AM [facility] Work Phone: Start: 01-19-2006 Zoster Vaccines (1 o f 2) Zoster Vaccines (1 of 2) [facility] Start: 1996 Screening for malign ant neoplasm of breast Mammogram [facility] Start: 01-19-1978 DTaP/Tdap/Td Vaccine s (1 - Tdap) DTaP/Tdap/Td Vaccines (1 - Tdap) [facility] Start: 01-19-1974 Hepatitis C screening Hepatitis C Sc reening [facility] Start: 01-19-1962 Pneumococcal Vaccine : 65+ Years (1 - PCV) Pneumococcal Vaccine: 65+ Years (1 - PCV) [facility] Start: 1956 Lipid panel Lipid Panel [facility] Start: 1955 Medicare Annual Wellness Visit Medicare Annual Wellness Visit (AWV) [facility] Start: 1955 Screening for malign ant neoplasm of colon [facility] Start: 1955 Screening for osteoporosis Bone Density Scan [facility] Comprehensive metabo lic 2000 panel - Serum or Plasma [facility] Patient referral [facility] Work Phone: [facility] Immunizations Immunization Date Immunization Notes Care Provider Fa ilianaty 09-06-2022 Pfizer COVID-19 Vac Bivalent 30 MCG/0.3ML Intramuscular Suspension Toby Quintana Work Phone: [facility] 250 DO Work Phone: 07-02-2021 Pfizer-BioNTech COVI D-19 Vacc 30 MCG/0.3ML Intramuscular Suspension Toby Quintana Work Phone: [facility] Comment on above: Series: 06-11-2021 Pfizer-BioNTech COVI D-19 Vacc 30 MCG/0.3ML Intramuscular Suspension Toby Quintana Work Phone: [facility] Comment on above: Series: 09-12-2014 tetanus and diphther ia toxoids, adsorbed, preservative free, for adult use (5 Lf of tetanus toxoid and 2 Lf of diphtheria toxoid) Toby Quintana Other [facility] 09-15-2013 tetanus and diphther ia toxoids, adsorbed, preservative free, for adult use (5 Lf of tetanus toxoid and 2 Lf of diphtheria toxoid) Toby Quintana Other [facility] 09-14-2013 influenza, seasonal, injectable Toby Schofield Quintana Work Phone: [facility] 09-14-2013 influenza virus vacc ine, unspecified formulation Iban Lu MD Work Phone: [facility] Work Phone: 08-10-2013 influenza virus vacc ine, unspecified formulation Toby Schofield Quintana Work Phone: [facility] [employer] 250 DO Work Phone: 07-19-2012 influenza virus vacc ine, unspecified formulation Toby Schofield Quintana Work Phone: [facility] 250 DO Work Phone: 11-10-2009 influenza virus vacc ine, unspecified formulation Toby Schofield Quintana Work Phone: [facility] 250 DO Work Phone: 08-10-2009 influenza virus vacc ine, unspecified formulation Toby Schofield Quintana Work Phone: [facility] 250 DO Work Phone: 07-14-2007 pneumococcal polysaccharide vaccine, 23 valent Toby Quintana Other [facility] Payers Date Payer Category Payer Medicare [id number] 2023 Medicare [employer] MEDICARE A ETNA MEDICARE VALUE PLAN [id number] 2023-Present [address] [place] [address] [id number] 2022 Self-pay [id number] 1959 Unknown [id number] 1959 Unknown [id number] 1956 Unknown [id number] 1956 Unknown [id number] 1956 Unknown [id number] 1956 Unknown [id number] 1956 Unknown [id number] 1956 Unknown [id number] 1956 Unknown [id number] 1956 Unknown [id number] 1956 Unknown [id number] 1956 Unknown [id number] Unknown Unknown HCAP/HFA/FAP Active [id number] Unknown [id number] Unknown [id number] Social History Date Type Detail Facility Start: 12-09-2023 No illicit drug use No illicit drug use [address] Work Phone: Comment on above: Coffee 1 cup daily; quit 1987; Start: 1955 Sex Assigned At Female F [facility] Start: 12-09-2023 Sex Assigned At N [facility] Other Start: 12-09-2023 Tobacco smoking status NHIS Ex-smoker [facility] Work Phone: History of tobacco use Current smoker [facility] Work Phone: History of tobacco use Cigarette Smoker [facility] Work Phone: Start: 12-09-2023 Tobacco use and exposure Smokeless tobacco non-user [facility] Work Phone: Start: 12-09-2023 Alcohol intake Lifetime non-d mary (finding) [facility] Work Phone: Start: 1955 [facility]: Start: 11-29-2023 End: 12-09-2023 Exposure to SARS-CoV-2 (event) Not sure [facility] Clinical Notes 11-22-2022 to 03-22-2024 Note Date & Type Note Facility 03-22-2024 Hospital Discharg e instructions Ambulatory OrdersReferral to Orthopedics Time Frame: 03/22/24, Location: None [facility] Work Phone: 12-17-2023 Evaluation note Encounter Date Diagnosis Assessment Notes Dec, Jaw swelling (ICD-10 - R22.0) [facility] Other 02-06-2024 Evaluation note* Encounter Date Diagnosis Assessment Notes Treatment Notes Treatment Clinical Notes Dec, Dental infection (ICD-10 - K04.7) Pt will contact her insurance, find a different dentist. Will continue antibiotic at this time. [facility] Other 01-30-2024 History of Present illness Narrative* [...] EVENING, Disp: 225 tablet, Rfl: 0 omega 8-pso-zfq-fish oil 360 mg-108 mg- 180 mg-1,200 mg [...] Attestation By signing my name below, I, [email or web address] , Scribe attest that this documentation has been prepared under the direction and in the presence of Iban Lu MD. [facility] Work Phone: [phone]) 911-276401-30-2024 Instructions* Patient Instructions* Nataliya Manning LPN - [...] Follow up one year [facility] Work Phone: [phone]) [phone] Evaluation note* Encounter Date Diagnosis Assessment Notes Treatment Notes Treatment Clinical Notes Oct, Open fracture of tooth, initial encounter (ICD-10 - S02.5XXB) Keep area clean, brush and rinse frequently. seeing dentist next week. Oct, Lumbar radiculitis (ICD-10 - M54.16) pt requests refill for her chronic back issues. We discussed her treatment plan w Dr. Byers. [facility] Other 11-16-2023 Evaluation note* Encounter Date Diagnosis Assessment Notes Treatment Notes Treatment Clinical Notes Sep, Lumbar radiculitis (ICD-10 - M54.16) CHanged pain med. Jax will call Dr. Byers's office for a change in treatment plan and an appt. Sep, Nausea & vomiting (ICD-10 - R11.2) States that zofran has not helped in the past - phenergan sent in for short term use. [facility] Other 11-13-2023 Evaluation note* Encounter Date Diagnosis Assessment Notes Treatment Notes Treatment Clinical Notes Sep, Radiculopathy, lumbar region (ICD-10 - M54.16) My staff reviewed her case with Dr. Byers's staff. She is to call their office for follow-up appointment next month. Patient does not want another injection and would rather have an ablation. Trial of tramadol sent to pharmacy. OARRS reviewed. [facility] Other 10-11-2023 Evaluation note* Encounter Date Diagnosis Assessment Notes Treatment Notes Treatment Clinical Notes Aug, Pain in right knee (ICD-10 - M25.561) Aug, Other chronic pain (ICD-10 - G89.29) Aug, Pain in left knee (ICD-10 - M25.562) [facility] Other 03-31-2023 Evaluation note* Encounter Date Diagnosis Assessment Notes Treatment Notes Treatment Clinical Notes Jan, Nausea & vomiting (ICD-10 - R11.2) Jan, Pain in right knee (ICD-10 - M25.561) Jan, Other chronic pain (ICD-10 - G89.29) Jan, Pain in left knee (ICD-10 - M25.562) [facility] Other 03-31-2023 Evaluation note* Encounter Date Diagnosis Assessment Notes Treatment Notes Treatment Clinical Notes Jan, Nausea & vomiting (ICD-10 - R11.2) chronic problem - requesting refill on Zofran Jan, Pain in right knee (ICD-10 - M25.561) Jan, Other chronic pain (ICD-10 - G89.29) Jan, Pain in left knee (ICD-10 - M25.562) [facility] Other 03-01-2023 Evaluation note* Encounter Date Diagnosis [...] She would prefer to stay close to [place]. Our office is working to get her referral to pain management near [place]. [facility] Other 01-31-2023 Evaluation note* Encounter Date Diagnosis Assessment Notes Treatment Notes Treatment Clinical Notes Nov, Lumbar pain (ICD-10 - M54.50) [facility] Other 01-13-2023 Evaluation note* Encounter Date Diagnosis Assessment Notes Treatment Notes Treatment Clinical Notes Nov, Low back pain, unspecified back pain laterality, unspecified chronicity, unspecified whether sciatica present (ICD-10 - M54.50) [facility] Other evaluation noteNo assessment information available [facility] Work Phone: Evaluation noteNo InformationNort [facility] Other evaluation noteNortFoodscovery Other Evaluation note* Diagnosis Supraventricular tachycardia by ECG- Primary Mixed hyperlipidemia Palpitations Class II obesity documented in this encounter [facility] Work Phone: Evaluation note* Diagnosis Onset Date Resolution Status Fatigue acute Hyperlipidemia acute Lumbar radiculopathy, chronic acute Medicare annual wellness visit, subsequent acute SVT (supraventricular tachycardia) acute [facility] Work Phone: Evaluation note* Diagnosis Onset Date Resolution Status Fatigue acute Hyperlipidemia acute Lumbar radiculopathy, chronic acute Medicare annual wellness visit, subsequent acute SVT (supraventricular tachycardia) acute Lumbar radiculopathy, chronic acute [facility] Work Phone: Evaluation note* Diagnosis Onset Date Resolution Status Fatigue acute Hyperlipidemia acute Lumbar radiculopathy, chronic acute Medicare annual wellness visit, subsequent acute SVT (supraventricular tachycardia) acute Lumbar radiculopathy, chronic acute Left knee pain acute Lumbar radiculopathy, chronic acute Right knee pain acute Left knee pain acute Right knee pain acute [facility] Work Phone: History general Narrative - Reported* [...] childbirth Hospitalization History hysterectomy Hospitalization History pancreatitis [facility] Other History general Narrative - [facility]orted[facility] Other Reason for referral (narrative)* Consultation (Routine) - Authorized Specialty Diagnoses / Procedures Referred By Luma mccarthy Referred To Contact Cardiology Diagnoses Supraventricular tachycardia by ECG Procedures Follow Up In Cardiology Iban Lu MD [address] [place] [address] Iban Lu MD [address] [place] [address] Referral ID Status Reason Start Date Expiration Date V isits Requested Visits Authorized [id number] Authorized 12/09/2023 12/08/2024 1 1 [facility] Work Phone: Reason for visit NarrativeMein Medicine [facility] Other Summary Purpose Family History Unknown Family [...] will be scheduled * Iban Lu MD, [facility] * ADRIANA DINERO is being seen for [...] and provided the patient with 2 local strategy intern in town. * ASSESSMENT AND PLAN: * [...] xray Chief Complaint Swollen Face, [place]- [phone] Medicare Wellness Reason for Visit Fatigue Hyperlipidemia Lumbar radiculopathy, chronic Medicare annual wellness visit, subsequent SVT (supraventricular tachycardia) Chief Complaint Medicare Wellness Amb Documentation pulled [phone] knee injections Reason for Visit Fatigue Hyperlipidemia Lumbar radiculopathy, chronic Medicare annual wellness visit, subsequent SVT (supraventricular tachycardia) Lumbar radiculopathy, chronic Chief Complaint Medicare Wellness Amb Documentation pulled [phone] knee injections leg swelling - hot cold [...] back pain, unspe cified (M54.50) Referral Organization [facility] Referring Provider First Name Leeann Referring Provider Last Name Mariano Referring Provider Specialty Neurologica l Surgery Referred Organization [facility] Referred Provider Albertina Oconnell Referred Address [address], [place],[address] Referred Provider Specialty Pain Medicin e Referral Priority Routine Referral Appointment Date 2023-01-21 General Notes Klaudia Golden 023 09:03:40 AM >Received today and waiting for office notes to be locked before sending referral [facility] 07:37:06 AM >[facility] 01/08/2023 09:26:41 AM >Referral was refax to the correct office with their form Trini Suazo 01/08/2023 02:11:33 PM >received letter, pt has appt scheduled for 01/21/2023 Clinical Notes Phone: Reason 01/08/23 @ 10:00am Evaluate and Treat Hip Pain Diagnosis 1 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) Referral Organization [facility] Referring Provider First Name Leeann Referring Provider Last Name Mariano Referring Provider Specialty Neurologica l Surgery Referred Organization [facility] Referred Provider Samuel Chatman II Referred Address [address] [facility] [place],[address] Referred Provider Specialty Orthopaedic Surgery Referral Priority Routine Referral Appointment Date 2023-01-08 General Notes Klaudia Golden 023 10:20:34 AM >Received today and [facility]P [facility] 01/01/2023 12:05:35 PM >[facility] was scheduled [facility] 01/15/2023 09:30:10 AM >Office notes not locked yet [facility] 01/16/2023 08:43:03 AM >Sent telephone encounter to referring physician to let them know that the consult letter is ready for their review Reason DECLINED lumbar an d knee pain Diagnosis 1 Lumbar pain (M54.50) Referral Organization [facility] linniki Referring Provider First Name Toby Referring Provider Last Name Pat Referring Provider Specialty Family Medi cine Referred Organization [facility] Referred Provider Paddy De Los Santos Referred Address [address] [place] Referred Provider Specialty Rheumatology Referral Priority Routine [...] section and content) DATE CREATED AUTHOR 09/23/2019 [facility] DATE CREATED AUTHOR AUTHOR'S ORGANIZ ATION 11/04/2019 [facility] DATE CREATED AUTHOR AUTHOR'S ORGANIZ ATION 05/31/2020 [facility] DATE CREATED AUTHOR AUTHOR'S ORGANIZ ATION 12/06/2020 [facility] DATE CREATED AUTHOR AUTHOR'S ORGANIZ ATION 04/21/2021 [facility] DATE CREATED AUTHOR AUTHOR'S ORGANIZ ATION 12/10/2022 [employer] DATE CREATED AUTHOR AUTHOR'S ORGANIZ ATION 01/10/2023 [facility] DATE CREATED AUTHOR AUTHOR'S ORGANIZ ATION 01/17/2023 [facility] DATE CREATED AUTHOR AUTHOR'S ORGANIZ ATION 03/18/2023 [facility] DATE CREATED AUTHOR AUTHOR'S ORGANIZ ATION 06/09/2023 [facility] DATE CREATED AUTHOR AUTHOR'S ORGANIZ ATION 12/12/2023 [facility] [employer] Teams (unrecognized sec tion and content) Team Status: Inactive Member Role Status Dates Toby Quintana MD Primary Care Provider Active Leeann Blades Attending Provider Active Team Status: Active Member Role Status Dates Toby Quintana MD Primary Care Provider Active Team Status: Inactive Member Role Status Dates Toby Quintana MD Primary Care Provider Active Samuel Chatman II, MD Attending Provider Active 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 [facility] [employer] [facility]. provides no warranty or guarantee of the accuracy or completeness of information in this document.
== END 2024-04-30 10:02 | disposition home or self-care (01) ==
LOC: US 10:02
PROVIDERS: PCP Family Medicine; Visit Provider Family Medicine
DX: M79.605 Pain in left leg (principal); M79.604 Pain in right leg; I73.9 Peripheral vascular disease, unspecified; R09.89 Other specified symptoms and signs involving the circulatory and respiratory systems
CPT/HCPCS: 93970

== ENCOUNTER 2024-09-06 08:48 | Observation (INO) | payer MEDICARE, SELFPAY ==
[2024-09-06] VITALS (15 sets, daily range): BP systolic 108–139; BP diastolic 69–105; PULSE 70–92; TEMP 36.6–36.8; O2SAT 85–97; BMI 38.7; BMI 37.2
--- NOTE | 2024-09-06 09:23 | ED_ITS ---
HPI HPI - General Adult General Chief complaint: Back Pain/Injury Stated complaint: LOWER EXTREMITY PAIN/BACK PAIN Time Seen by Provider: 09/06/24 08:57 Source: patient Mode of arrival: ambulance Limitations: no limitations History of Present Illness HPI narrative: Patient is a 69-year-old female who is presenting to the ER with chief complaint of chronic bilateral lower back pain, and pain radiating down the lateral thighs bilateral to the knees. Patient is also complaining chronic bilateral knee pain. Patient has an appointment on September [address] Kwong and patient needs bilateral knee replacement. Patient lives at home with her . Patient stated that yesterday she is having nausea, vomiting and weakness. Patient says that she has some type of bile issue for her bile get backed up in the gallbladder and cause nausea vomiting for day or 2 then improves. Patient has no nausea medication at home. Patient came in by EMS. Patient has been getting prescribed Percocet from Dr. Stewart for her chronic pain, patient stopped getting that prescribed to her over a year ago. She is not going through withdrawal at this time. Patient has no chest pain, shortness of breath, or any other acute complaints at this time. I asked patient if she needs to be placed in a nursing facility or assisted living, she states that she just needs help with her pain, and needs to get to the appointment with her orthopedic surgeon next week. All systems are negative except as noted/marked. All systems reviewed and otherwise negative. Nurses note and vital signs reviewed and patient is not hypoxic. General: The patient appears well and in no apparent distress. Patient is resting comfortably on cart. Patient is not toxic, lethargic, or listless Skin: Warm, dry, no pallor noted. There is no rash noted. No petechiae, purpura. Head: Normocephalic, atraumatic Eye: Normal conjunctiva, no drainage, EOMI. PERRL Ears, Nose, Mouth, and Throat: oral mucosa is moist. Nares patent. Mouth without vesicles. Cardiovascular: Regular Rate and Rhythm, no murmur, gallop, rub Respiratory: Patient is in no distress, no accessory muscle use, lungs are clear to auscultation, no wheezing, rales or rhonchi Back: Chronic bilateral paralumbar moderate tenderness to palpation, no signs of saddle anesthesia or cauda equina, no loss of sensation to the bilateral inner thighs, patient has mild tenderness palpation bilateral piriformis muscle, patient is able to plantar and dorsiflex her bilateral legs equal, with some weakness bilateral. Non-tender, no CVA tenderness bilaterally to percussion. No CT LS midline pain GI: Obese, soft, no suprapubic tenderness to palpation, no tenderness to palpation, no masses appreciated. No rebound, guarding, or rigidity noted. No distention Musculoskeletal: Patient has full range of motion of all of the extremities, no motor, sensory, or focal neurological deficits Neurological: A&O x4, normal speech Psychiatric: Cooperative Related Data Home Medications ?Medication ?Instructions ?Recorded ?Confirmed alprazolam 1 mg tablet 1 mg PO DAILY 05/16/23 09/06/24 atenolol 50 mg tablet 50 mg PO QPM 05/16/23 09/06/24 atenolol 25 mg tablet 25 mg PO QAM 09/06/24 09/06/24 pregabalin 50 mg capsule 50 mg PO Q8H 09/06/24 09/06/24 Allergies Allergy/AdvReac Type Severity Reaction Status Date / Time Sulfa (Sulfonamide Allergy Intermediate Redness of Verified 09/06/24 08:56 Antibiotics) Skin Opioid HPI Opioid Management Most Recent Opioid Data: Last Pain Scale 9 09/06/24 09:25 09/06/24 Last MAR Pain Assessment 09/06/24 09:45 PFSH PFS Medical History (Updated 09/06/24 @ 12:14 by Denis Bullock MD) Tachycardia ?R00.0 - Tachycardia, unspecified (ICD-10) Surgical History (Updated 05/16/23 @ 12:28 by Margoth Armendariz) Previous back surgery ?Z98.890 - Other specified postprocedural states (ICD-10) History of cardiac radiofrequency ablation ?Z98.890 - Other specified postprocedural states (ICD-10) Social History (Updated 09/06/24 @ 13:41 by Jazz John) Within the past year, how often did you have a drink containing alcohol: monthly or less Within the past year, how many standard drinks containing alcohol did you have on a typical day: 1 or 2 Within the past year, how often did you have six or more drinks on one occasion: never Total score: 0 Score interpretation: A score less than 3 is consistent with normal alcohol consumption. Smoking status: Never smoker Non-prescribed substance use: denies use Highest level of school completed/degree received: Associate degree: occupational, technical, vocational program Do you want help with school or training: No Are you now , , , , never or living with a partner: In a typical week, how many times do you talk on the telephone with family, friends, or neighbors: once per week How often do you get together with friends or relatives: once per week How often do you attend holiness or protestant services: never Do you belong to any clubs or organizations such as holiness groups unions, [employer] or athletic groups, or school groups: no Total score: 1 Score interpretation: A score of less than or equal to 1 indicates the most socially isolated. Little interest or pleasure in doing things: several days Feeling down, depressed, or hopeless: several days Feel stressed/tense/nervous/anxious/difficulty sleeping: very much Life stressors: other Life stressor details: Not being able to walk Due to disability, difficulty making decisions: No Exam Constitutional Vital Signs, click to edit/add: Last Vital Signs Temp 97.8 F 09/06/24 08:56 Pulse 72 09/06/24 11:51 Resp 18 09/06/24 11:51 BP 120/70 09/06/24 11:51 Pulse Ox 94 L 09/06/24 11:51 O2 Del Method Nasal Cannula 09/06/24 11:51 O2 Flow Rate 2 09/06/24 11:51 Course Vital Signs Vital signs: Vital Signs Temperature 97.8 F 09/06/24 08:56 Pulse Rate 78 09/06/24 08:56 Respiratory Rate 18 09/06/24 08:56 Blood Pressure 139/105 H 09/06/24 08:56 Pulse Oximetry 94 L 09/06/24 08:56 Oxygen Delivery Method Room Air 09/06/24 08:56 Temperature 97.8 F 09/06/24 08:56 Pulse Rate 72 09/06/24 11:51 Respiratory Rate 18 09/06/24 11:51 Blood Pressure 120/70 09/06/24 11:51 Pulse Oximetry 94 L 09/06/24 11:51 Oxygen Delivery Method Nasal Cannula 09/06/24 11:51 Oxygen Delivery Flow Rate 2 09/06/24 11:51 Medical Decision Making MDM Narrative Medical decision making narrative: Patient was given a Percocet secondary to her chronic acute on chronic pain. Patient became hypoxic, slightly dizzy, and then after an hour later also had mild vertigo. Patient was attempted to ambulate and she was not able to stand up and was very histrionic with her symptoms. Multiple bedside visits have been done by myself and Louisa RUIZ talking to patient, . Patient has chronic knee pain. Patient is seeing a Dr. Kwong out of [facility] Dr. Vaughn has already done 3 Synvisc injections to the right knee with no relief. Patient lab work shows no significant findings. Patient became slightly hypoxic, she was placed on 2 L of oxygen after Percocet. I believe she is having symptoms of possibly Percocet being too strong. Patient did take oxycodone several times a day, that was 1 year ago when she stopped taking the medication. Patient has having difficulty with activities of daily living at home. Patient cannot get herself to the bathroom. Patient is urinating her cell not because of saddle anesthesia or cauda equina. Just because she cannot go from one room to another, cannot ambulate, or function. Patient has no headache. Patient will be admitted for further evaluation, patient need PT OT evaluation, questionable rehab placement until she gets bilateral knee replacements if indicated. This case has been discussed with Dr. Jeffers, she is agrees with admission. Lab Data Labs: Lab Results 09/06/24 Range/Units 09:30 WBC 5.5 (4.0-11.0) 10^3/uL RBC 5.12 (4.20-5.40) 10^6/uL Hgb 14.3 (12.0-16.0) g/dL Hct 43.8 (36.0-48.0) % MCV 85.5 (81.0-99.0) fL MCH 27.9 (26.7-34.0) pg MCHC 32.6 (29.9-35.2) g/dL RDW 13.3 (11.0-15.0) % Plt Count 194 (150-450) 10^3/uL MPV 9.8 (9.5-13.5) fL Neut % (Auto) 54.1 (43.0-75.0) % Lymph % (Auto) 30.1 (20.5-60.0) % [place] % (Auto) 11.8 (1.7-12.0) % Eos % (Auto) 3.3 (0.9-7.0) % Baso % (Auto) 0.5 (0.2-2.0) % Neut # (Auto) 3.0 (1.4-6.5) 10^3/uL Lymph # (Auto) 1.7 (1.2-3.8) 10^3/uL [place] # (Auto) 0.7 (0.3-0.8) 10^3/uL Eos # (Auto) 0.2 (0.0-0.7) 10^3/uL Baso # (Auto) 0.0 (0.0-0.1) 10^3/uL Abs Immat Gran (auto) 0.01 (0.00-0.03) 10^3/uL Imm/Tot Granulo (auto) 0.2 (0.0-0.5) % Sodium 145 (136-145) mmol/L Potassium 4.2 (3.5-5.1) mmol/L Chloride 108 H (98-107) mmol/L Carbon Dioxide 28.1 (21.0-32.0) mmol/L Anion Gap 13.1 BUN 8.0 (7.0-18.0) mg/dL Creatinine 0.72 (0.55-1.02) mg/dL Est GFR ( Amer) >60 (>=60 mL/min/1.73m^2) Est GFR (Non-Af Amer) >60 (>=60 mL/min/1.73m^2) BUN/Creatinine Ratio 11.1 Glucose 96 (74-106) mg/dL Calcium 9.4 (8.5-10.1) mg/dL Magnesium 2.0 (1.8-2.4) mg/dL Total Bilirubin 0.7 (0.2-1.0) mg/dL AST 40 H (15-37) U/L ALT 27 (14-59) U/L Alkaline Phosphatase 105 (46-116) U/L Total Creatine Kinase 37 (26-192) U/L Total Protein 6.7 (6.4-8.2) g/dL Albumin 3.0 L (3.4-5.0) g/dL Globulin 3.7 g/dL Albumin/Globulin Ratio 0.8 Discharge Plan Discharge Chief Complaint: Back Pain/Injury Clinical Impression: Dizziness, Vertigo, Bilateral chronic knee pain, Nausea & vomiting Patient Disposition: Admitted as Observation Time of Disposition Decision: 12:12 Condition: Fair
[2024-09-06 09:38] LABS: Basophils Percent Auto 0.5 % (0.2-2.0); Eosinophils Absolute Auto 0.2 10^3/uL (0.0-0.7); Eosinophils Percent Auto 3.3 % (0.9-7.0); Hematocrit 43.8 % (36.0-48.0); Hemoglobin 14.3 g/dL (12.0-16.0); Immature Granulocytes Abs Auto 0.01 10^3/uL (0.00-0.03); Immature Granulocytes Pct Auto 0.2 % (0.0-0.5); Lymphocytes Absolute Auto 1.7 10^3/uL (1.2-3.8); Lymphocytes Percent Auto 30.1 % (20.5-60.0); Mean Corpuscular HGB Conc 32.6 g/dL (29.9-35.2); Mean Corpuscular Hemoglobin 27.9 pg (26.7-34.0); Mean Corpuscular Volume 85.5 fL (81.0-99.0); Mean Platelet Volume 9.8 fL (9.5-13.5); Monocytes Absolute Auto 0.7 10^3/uL (0.3-0.8); Monocytes Percent Auto 11.8 % (1.7-12.0); Neutrophils Percent Auto 54.1 % (43.0-75.0); Platelet Count 194 10^3/uL (150-450); Red Blood Count 5.12 10^6/uL (4.20-5.40); Red Cell Distribution Width 13.3 % (11.0-15.0); White Blood Count 5.5 10^3/uL (4.0-11.0)
--- OUTSIDE RECORDS SUMMARY | 2024-09-06 09:38 | XMS_ITS | CCD ---
Author Organization [facility] Care Team Providers Care It Architect Name Role Phone Toby Quintana Unavailable Unavailable [...] DR TOBY Schofield Consulting Unavailable QUINTANA, DR OTBY Schofield Primary Care Unavailable QUINTANA, DR TOBY Schofield Admitting Unavailable COLWELL, DR CAITLYN Noe Consulting Unavailable QUINTANA, DR [...] Sulfamethoxazole; Translations: [sulfa] Drug Allergy Rash, Swelling [address] Work Phone: (10 sources) Sulfonamides (Antibiotic); Translations: [Sulfa (Sulfonamide Antibiotics)] Allergy to substance 04-08-20 19 Hives, Rash, Swelling [facility] (20 sources) Sulfacetamide / Sulfur Drug Allergy rash [employer] [facility] [employer] Other (1 source) Morphine Drug Allergy [facility] (1 source) Quinolones (Antibiotic) Drug allergy (disorder) [facility] (2 sources) Sulfonamides (Antibiotic) Drug allergy (disorder) 08-06-20 13 [facility] (12 sources) Acetaminophen / oxyCODONE Drug Allergy 07-28-20 13 Unknown [employer] Other (12 sources) Meperidine Drug Allergy 07-28-20 13 Unknown [facility] Other (13 sources) Quinolones Drug allergy 07-28-20 13 Comment:Fluorq rennolones [employer] Other (13 sources) sulfADIAZINE Drug Allergy Unknown [facility] Other (13 sources) Substance with sulfonamide structure and antibacterial mechanism of action (substance) Drug allergy 07-28-20 13 Unknown [facility] Other (13 sources) Statins Depletion *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 Propensity to adverse reactions 07-28-20 13 Unknown [facility] Other (4 sources) Allergies Reconciled Propensity to adverse reactions Unknown [facility] Other (4 sources) patient allergy list reviewed by nurse or physicia Propensity to adverse reactions 07-15-20 Comment:Done [employer] Other (1 source) Acetaminophen / oxyCODONE Drug Allergy 07-28-20 13 Unknown [facility] Other (1 source) Meperidine Drug Allergy 07-28-20 13 Unknown [employer] Other (5 sources) Sulfacetamide Drug Allergy 12-30-19 24 [facility] Medications Current Medications Medication Drug Class(es) Dates Sig (Normalized) Sig (Original) acetaminophen 325 mg / HYDROcodone bitartrate 5 mg oral tablet (20 sources) Opioid Agonist Start: 08-31-2021 End: 12-09-2023 take 1 tablet by mouth every four hours as needed HYDROcodone-acetami nophen (Petroleum) 5-325 mg tablet Take 1 tablet by [...] Alprazolam Active 1 MG PO Twice daily August 03, 2024 12:44pm Fill on or after 07/04 Start: 12-08-2023 take 1 tablet by valentin [...] oral tablet (20 sources) beta-Adrenergic Anahi Start: 06-07-2024 Atenol ol Active 25 MG PO Three times daily 90 June 07, 2024 2:17pm 1 po qam; 2 po qpm Start: 01-16-2024 End: 06-07-2024 take 50 mg by mouth once daily at bedtime Atenolol Discontinued 50 MG PO Daily at bedtime 60 April 02, 2024 12:17pm June 07, 2024 2:18pm Start: 08-30-2021 take 0.5 tablet by m [...] puffs Inhalation Twice a day Active omega 0-til-bze-fish oil 360 mg-108 mg- 180 mg-1,200 mg capsule (1 source) take 1 capsule by mouth once daily omega 7-ahy-phe-fish oil 360 mg-108 mg- 180 mg-1,200 mg [...] / oxyCODONE hydrochloride 5 mg oral tablet (5 sources) Opioid Agonist Start: 12-30-2023 End: 01-06-2024 take 1 tablet by mouth every four hours Oxycodone-Acetami nophen Discontinued 1 TAB PO Every 4 hours December 30, 2023 1:00am January 06, 2024 2:13pm DULoxetine 60 mg delayed release oral capsule (7 sources) Serotonin and Norepinephrine Reuptake Inhibitor Start: [...] 0 Refills: 0 Ordered: 04-Sep-2021 DO Active furosemide 20 mg oral tablet (2 sources) Loop Diuretic Start: 04-23-2024 End: 04-30-2024 take 20 mg by mouth once daily Furosemide Discontinued 20 MG PO Daily April 23, 2024 12:00am April 30, 2024 9:38am Lidocaine (20 sources) Antiarrhythmic, Amide Local Anesthetic Start: 08-20-2023 Lidocaine Aug, 30 mg Start: 05-08-2023 Lidocaine 29 J un2022 30 mg Start: 02-07-2023 Start: 02-07-2023 Lidocaine 31 M ar2022 30 mg naproxen 500 mg oral tablet (7 sources) Nonsteroidal Anti-inflammatory Drug Start: 04-08-2019 End: 12-30-2023 take 500 mg by mouth twice daily Naproxen Discontinued 500 MG PO Twice daily April 08, 2019 12:00am December 30, 2023 11:07am oxyCODONE hydrochloride 5 mg oral tablet (20 sources) Opioid Agonist Start: 01-05-2024 End: 04-23-2024 take 5 mg by mouth every six hours Oxycodone Discontinued 5 MG PO Every 6 hours 28 January 06, 2024 April 23, 2024 2:57pm Start: 10-24-2023 take 1 tablet by valentin [...] Sep, Active take 1 capsule by mo [facility] every six hours as needed oxyCODONE (Oxy-IR) 5 mg immediate release capsule Take 1 capsule (5 mg) by mouth every 6 hours if needed for severe pain (7 - 10). 0 Active predniSONE 20 mg oral tablet (4 sources) Start: 01-19-2024 End: 02-10-2024 take 20 mg by mouth twice daily Prednisone Discontinued 20 MG PO Twice daily January 19, 2024 12:00am February 10, 2024 1:10pm promethazine hydrochloride 12.5 mg oral tablet (13 sources) Phenothiazine Start: 01-16-2024 End: 02-10-2024 take [...] Apr, Not-Taking tiZANidine 4 mg oral tablet (4 sources) Central alpha-2 Adrenergic Agonist Start: 01-19-2024 [...] asthma, uncomplicated] Onset: 5 Chronic Cardiac dysrhythmias (20 sources) EKG: supraventricular tachycardia; Translations: [Paroxysmal supraventricular tachycardia] Onset: 4 12-09-2023 Chronic Chronic obstructive pulmonary disease and bronchiectasis (5 [...] conjunctivitis, unspecified eye] Episodic Malaise and fatigue (16 sources) Fatigue; Translations: [Other fatigue] Onset: 5 [...] reading, without diagnosis of hypertension] Episodic Other circulatory disease (2 sources) Abnormal peripheral pulse; Translations: [Other specified symptoms and signs involving the circulatory and respiratory systems] 04-30-2024 Episodic Other circulatory disease (1 source) Other specified symptoms and signs involving the circulatory and respiratory systems; Translations: [Other symptoms involving cardiovascular system] 04-30-2024 Episodic Other connective tissue disease (1 source) Fibromyalgia; Translations: [Fibromyalgia] Onset: 3 Episodic Other connective tissue disease (1 source) Arthrodesis status; Translations: [Arthrodesis status] Onset: 3 Episodic Other connective tissue disease (4 sources) Fibromyalgia; Translations: [Fibromyalgia] Episodic Other connective tissue disease (2 sources) Pain in lower limb; Translations: [Pain in right leg] 04-30-2024 Episodic Other connective tissue disease (1 source) Pain in right leg; Translations: [Pain in limb] 04-30-2024 Episodic Other diseases of veins and lymphatics [...] (5 sources) Other chronic pain Chronic Other nervous system disorders (2 sources) Cold feet; Translations: [Unspecified disturbances of skin sensation] 03-22-2024 Episodic Other nervous system disorders (1 source) Unspecified disturbances of skin sensation; Translations: [Other symptoms involving skin and integumentary tissues] 03-22-2024 Episodic Other non-traumatic joint disorders (20 sources) Knee pain; Translations: [Pain in left knee] Episodic Other non-traumatic joint disorders (2 sources) Pain in left hip; Translations: [PAIN IN LEFT HIP] Onset: 2 Episodic Other non-traumatic joint disorders (12 sources) Pain in right knee; Translations: [Right knee pain] Episodic Other non-traumatic joint disorders (12 sources) Pain in left knee; Translations: [Left [...] Translations: [Acute pharyngitis, unspecified] Onset: 4 Episodic Peripheral and visceral atherosclerosis (3 sources) Peripheral vascular disease, unspecified; Translations: [Peripheral arterial disease] 04-30-2024 Chronic Residual codes; unclassified (1 source) Swelling - [...] Problem Classification Problem Date Documented Date Episodic/Chronic Cardiac dysrhythmias (10 sources) Palpitations; Translations: [Palpitations] Onset: 11-13-2023 12-09-2023 Episodic Deficiency and other anemia (4 sources) Anemia; [...] Other prison (current) drug therapy; 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] Onset: 07-23-2022 Episodic Other [...] aPTT Coag (PPP) [Time] 23.5 s 22.3-36.2 [facility] Basophils Auto (Bld) [#/Vol] on 01-14-2024 Basophils (Bld) [#/Vol] 0.1 10 3/uL 0.0-0.1 [facility] Basophils/100 WBC Auto (Bld) on 01-14-2024 Basophils/100 WBC (Bld) 0.5 % 0.2-2.0 [facility] Eosinophils/100 WBC Auto (Bl d)on 01-14-2024 Eosinophils/100 WBC (Bld) 1.3 % 0.9-7.0 [facility] Erythrocyte distribution wid th Auto (RBC) [Ratio]on 01-14-2024 Erythrocyte distribution width (RBC) [Ratio] 13.6 % 11.0-15.0 [facility] Estimated glomerular filtrat ion rate (GFR) non- Americanon 01-14-2024 GFR/1.73 sq M.predicted among non-blacks MDRD (S/P/Bld) [Vol rate/Area] mL/min/{1.73_m2} >=60 [facility] Fibrin D-dimer [Presence] in Platelet poor plasma by Latex agglutinationon 01-14-2024 Fibrin D-dimer LA Ql (PPP) 0.78 mg/L FEU <=0.59 [facility] Comment on above: RESULTS CALLED TO EARL ZUNIGA RN @BY Klaudia Cordobaat 183Increases in D-Dimer concentration observed withthromboembolic events [...] on 01-14-2024 Globulin (S) [Mass/Vol] 3.9 g/dL [facility] Hematocrit Auto (Bld) [Volum e fraction]on 01-14-2024 Hematocrit (Bld) [Volume fraction] 44.4 % 36.0-48.0 [facility] Hemoglobin [Mass/volume] in Bloodon 01-14-2024 Hemoglobin (Bld) [Mass/Vol] 14.1 g/dL 12.0-16.0 [facility] INR in Platelet poor plasma by Coagulation assayon 01-14-2024 INR Coag (PPP) [Relative time] {INR} [facility] Comment on above: DESIRED INR:2.0-3.0 CONDITIONS NOT LISTED BELOW2.5-3.5 FOR PROSTHETIC HEART VALVE REPLACEMENT2.5-3.5 RECURRENT THROMBOSIS Laboratory - Chemistry and C hemistry - challengeon 01-14-2024 Albumin [Mass/Vol] 2.9 g/dL 3.4-5.0 [facility] ALP [Catalytic activity/Vol] 126 U/L 46-116 [facility] ALT [Catalytic activity/Vol] 36 U/L 14-59 [facility] AST [Catalytic activity/Vol] 24 U/L 15-37 [facility] Bilirubin [Mass/Vol] 0.4 mg/dL 0.2-1.0 [facility] Calcium [Mass/Vol] 8.7 mg/dL 8.5-10.1 [facility] Chloride [Moles/Vol] 109 mmol/L 98-107 [facility] CO2 [Moles/Vol] 30.5 mmol/L 21.0-32.0 [facility] Creatinine [Mass/Vol] 0.77 mg/dL 0.55-1.02 [facility] GFR/1.73 sq M.predicted MDRD (S/P/Bld) [Vol rate/Area] mL/min/{1.73_m2} >=60 [facility] Glucose [Mass/Vol] 108 mg/dL 74-106 [facility] Natriuretic peptide B (Bld) [Mass/Vol] 210.0 pg/mL <=900.0 [facility] Potassium [Moles/Vol] 4.0 mmol/L 3.5-5.1 [facility] Protein [Mass/Vol] 6.8 g/dL 6.4-8.2 [facility] Sodium [Moles/Vol] 141 mmol/L 136-145 [facility] Urea nitrogen [Mass/Vol] 10.0 mg/dL 7.0-18.0 [facility] Urea nitrogen/Creatinine [Mass ratio] 13.0 mg/mg [facility] Laboratory - Hematology and Cell countson 01-14-2024 Immature granulocytes/100 WBC (Bld) 0.3 % 0.0-0.5 [facility] Laboratory - Microbiology an d Antimicrobial susceptibilityon 01-14-2024 SARS-CoV-2 (COVID-19) RNA DAVID+probe Ql (Unsp spec) Negative NEGATIVE [facility] Comment on above: This test has not be en FDA cleared or approved, but has beenauthorized by the FDA under an Emergency Use Authorization(EUA) for use by authorized laboratories certified underCLIA that meet the requirements to perform moderate [...] Auto (Bld) [#/Vol] 9.2 10 3/uL 4.0-11.0 [facility] Lymphocytes Auto (Bld) [#/Vo l]on 01-14-2024 Lymphocytes (Bld) [#/Vol] 1.9 10 3/uL 1.2-3.8 [facility] Lymphocytes/100 WBC Auto (Bl d)on 01-14-2024 Lymphocytes/100 WBC (Bld) 20.3 % 20.5-60.0 [facility] MCH Auto (RBC) [Entitic mass ]on 01-14-2024 MCH (RBC) [Entitic mass] 28.4 pg 26.7-34.0 [facility] MCHC Auto (RBC) [Mass/Vol]on 01-14-2024 MCHC (RBC) [Mass/Vol] 31.8 g/dL 29.9-35.2 [facility] MCV Auto (RBC) [Entitic vol] on 01-14-2024 MCV (RBC) [Entitic vol] 89.5 fL 81.0-99.0 [facility] Monocytes Auto (Bld) [#/Vol] on 01-14-2024 Monocytes (Bld) [#/Vol] 0.8 10 3/uL 0.3-0.8 [facility] Monocytes/100 WBC Auto (Bld) on 01-14-2024 Monocytes/100 WBC (Bld) 8.5 % 1.7-12.0 [facility] Neutrophils Auto (Bld) [#/Vo l]on 01-14-2024 Neutrophils (Bld) [#/Vol] 6.3 10 3/uL 1.4-6.5 [facility] Neutrophils/100 WBC Auto (Bl d)on 01-14-2024 Neutrophils/100 WBC (Bld) 69.1 % 43.0-75.0 [facility] No Panel Informationon 01-13 Troponin I High Sensitivity 6.8 pg/mL 4.0-51.3 [facility] Comment on above: CUT-OFF POINTS HAVE BEEN [...] INFORMATION. Bedside Influenza Type A Antigen Negative [facility] Comment on above: Negative for Flu A p rotein antigen. Infection due to Flu Acannot be ruled out. Flu A antigen in the sample may bebelow the detection limit of the test. Bedside Influenza Type B Antigen Negative [facility] Comment on above: Negative for Flu B p rotein antigen. Infection due to Flu Bcannot be ruled out. Flu B antigen in the sample may bebelow the detection limit of the test. Eosinophils # (Auto) 0.1 10 3/uL 0.0-0.7 [facility] Immature Granulocyte # (Auto) 0.03 10 3/uL 0.00-0.03 [facility] Platelet mean volume Auto (B ld) [Entitic vol]on 01-14-2024 Platelet mean volume (Bld) [Entitic vol] 9.4 fL 9.5-13.5 [facility] Platelets Auto (Bld) [#/Vol] on 01-14-2024 Platelets (Bld) [#/Vol] 238 10 3/uL 150-450 [facility] Prothrombin time (PT)on PT Coag (PPP) [Time] 9.3 s 9.0-11.6 [facility] RBC Auto (Bld) [#/Vol]on RBC (Bld) [#/Vol] 4.96 10 6/uL 4.20-5.40 [facility] Serum or plasma albumin/glob ulin mass ratioon 01-14-2024 Albumin/Globulin [Mass ratio] 0.7 {ratio} [facility] Serum or plasma anion gap de terminationon 01-14-2024 Anion gap [Moles/Vol] 5.5 mmol/L [facility] Basophils Auto (Bld) [#/Vol] on 12-30-2023 Basophils (Bld) [#/Vol] 0.1 10 3/uL 0.0-0.1 [facility] Basophils/100 WBC Auto (Bld) on 12-30-2023 Basophils/100 WBC (Bld) 0.6 % 0.2-2.0 [facility] Cholesterol in LDL Calc [Mas s/Vol]on 12-30-2023 Cholesterol in LDL [Mass/Vol] 149.0 mg/dL [facility] Comment on above: <100 mg/dl [id number] 0-129 mg/dl NEAR OR ABOVE [id number] mg/dl BORDERLINE [id number] mg/dl HIGH>190 mg/dl VERY HIGH Cholesterol in VLDL Calc [Ma ss/Vol]on 12-30-2023 Cholesterol in VLDL [Mass/Vol] 18.6 mg/dL [facility] Eosinophils/100 WBC Auto (Bl d)on 12-30-2023 Eosinophils/100 WBC (Bld) 1.8 % 0.9-7.0 [facility] Erythrocyte distribution wid th Auto (RBC) [Ratio]on 12-30-2023 Erythrocyte distribution width (RBC) [Ratio] 13.2 % 11.0-15.0 [facility] Estimated glomerular filtrat ion rate (GFR) non- Americanon 12-30-2023 GFR/1.73 sq M.predicted among non-blacks MDRD (S/P/Bld) [Vol rate/Area] mL/min/{1.73_m2} >=60 [facility] Globulin Calc (S) [Mass/Vol] on 12-30-2023 Globulin (S) [Mass/Vol] 3.8 g/dL [facility] Hematocrit Auto (Bld) [Volum e fraction]on 12-30-2023 Hematocrit (Bld) [Volume fraction] 46.8 % 36.0-48.0 [facility] Hemoglobin [Mass/volume] in Bloodon 12-30-2023 Hemoglobin (Bld) [Mass/Vol] 14.7 g/dL 12.0-16.0 [facility] Laboratory - Chemistry and C hemistry - challengeon 12-30-2023 Albumin [Mass/Vol] 3.0 g/dL 3.4-5.0 [facility] ALP [Catalytic activity/Vol] 88 U/L 46-116 [facility] ALT [Catalytic activity/Vol] 23 U/L 14-59 [facility] AST [Catalytic activity/Vol] 20 U/L 15-37 [facility] Bilirubin [Mass/Vol] 0.5 mg/dL 0.2-1.0 [facility] Calcium [Mass/Vol] 9.2 mg/dL 8.5-10.1 [facility] Chloride [Moles/Vol] 107 mmol/L 98-107 [facility] Cholesterol [Mass/Vol] 224 mg/dL <=200 [facility] Cholesterol in HDL [Mass/Vol] 57 mg/dL 40-60 [facility] Comment on above: > or =60 mg/dl - LOW CARDIOVASCULAR RISK<40 mg/dl - HIGH CARDIOVASCULAR RISK CO2 [Moles/Vol] 31.1 mmol/L 21.0-32.0 [facility] Creatinine [Mass/Vol] 0.72 mg/dL 0.55-1.02 [facility] GFR/1.73 sq M.predicted MDRD (S/P/Bld) [Vol rate/Area] mL/min/{1.73_m2} >=60 [facility] Glucose [Mass/Vol] 100 mg/dL 74-106 [facility] Potassium [Moles/Vol] 4.5 mmol/L 3.5-5.1 [facility] Protein [Mass/Vol] 6.8 g/dL 6.4-8.2 [facility] Sodium [Moles/Vol] 145 mmol/L 136-145 [facility] Triglyceride [Mass/Vol] 93 mg/dL <=150 [facility] TSH Qn 2.655 m[IU]/L 0.358-3.740 [facility] Urea nitrogen [Mass/Vol] 9.0 mg/dL 7.0-18.0 [facility] Urea nitrogen/Creatinine [Mass ratio] 12.5 mg/mg [facility] Laboratory - Hematology and Cell countson 12-30-2023 Immature granulocytes/100 WBC (Bld) 0.2 % 0.0-0.5 [facility] Leukocytes [#/volume] correc wanda for nucleated erythrocytes in Blood by Automated counon 12-30-2023 WBC corrected for nucl RBC Auto (Bld) [#/Vol] 8.7 10 3/uL 4.0-11.0 [facility] Lymphocytes Auto (Bld) [#/Vo l]on 12-30-2023 Lymphocytes (Bld) [#/Vol] 1.8 10 3/uL 1.2-3.8 [facility] Lymphocytes/100 WBC Auto (Bl d)on 12-30-2023 Lymphocytes/100 WBC (Bld) 20.4 % 20.5-60.0 [facility] MCH Auto (RBC) [Entitic mass ]on 12-30-2023 MCH (RBC) [Entitic mass] 28.6 pg 26.7-34.0 [facility] MCHC Auto (RBC) [Mass/Vol]on 12-30-2023 MCHC (RBC) [Mass/Vol] 31.4 g/dL 29.9-35.2 [facility] MCV Auto (RBC) [Entitic vol] on 12-30-2023 MCV (RBC) [Entitic vol] 91.1 fL 81.0-99.0 [facility] Monocytes Auto (Bld) [#/Vol] on 12-30-2023 Monocytes (Bld) [#/Vol] 0.7 10 3/uL 0.3-0.8 [facility] Monocytes/100 WBC Auto (Bld) on 12-30-2023 Monocytes/100 WBC (Bld) 7.5 % 1.7-12.0 [facility] Neutrophils Auto (Bld) [#/Vo l]on 12-30-2023 Neutrophils (Bld) [#/Vol] 6.0 10 3/uL 1.4-6.5 [facility] Neutrophils/100 WBC Auto (Bl d)on 12-30-2023 Neutrophils/100 WBC (Bld) 69.5 % 43.0-75.0 [facility] No Panel Informationon 12-30 Eosinophils # (Auto) 0.2 10 3/uL 0.0-0.7 [facility] Immature Granulocyte # (Auto) 0.02 10 3/uL 0.00-0.03 [facility] Platelet mean volume Auto (B ld) [Entitic vol]on 12-30-2023 Platelet mean volume (Bld) [Entitic vol] 9.3 fL 9.5-13.5 [facility] Platelets Auto (Bld) [#/Vol] on 12-30-2023 Platelets (Bld) [#/Vol] 199 10 3/uL 150-450 [facility] RBC Auto (Bld) [#/Vol]on RBC (Bld) [#/Vol] 5.14 10 6/uL 4.20-5.40 [facility] Serum or plasma albumin/glob ulin mass ratioon 12-30-2023 Albumin/Globulin [Mass ratio] 0.8 {ratio} [facility] Serum or plasma anion gap de terminationon 12-30-2023 Anion gap [Moles/Vol] 11.4 mmol/L [facility] Serum or plasma total choles terol/high density lipoprotein (HDL) cholesterol mass la 12-30-2023 Cholesterol.total/Ch olesterol in HDL [Mass ratio] 3.9 {ratio} [facility] Comment on above: 3.3 - 4.4 LOW RISK4. 4 - 7.1 AVERAGE RISK7.1 - 11.0 MODERATE RISK>11.0 HIGH RISK XR hip LT min 2V(w/wo pelvis )*on 01-08-2023 XR hip LT min 2V(w/wo pelvis)* [facility] Main [address] [address] XRay Report Signed Patient: Adriana Dinero I MR#: [id number] [id number] : 1955 Acct:[id number] Age/Sex: 67 / F ADM Date: 01/08/23 Loc: SOXD Room: Type: REG CLI Attending Dr: Samuel Chatman II, MD Copies [...] Pop Jr., D.O.01/08/2023 1:22 PM Dictation Location: [place] [address] Transcribed By: [facility] 01/08/23 1322 Dictated By: Montana Pop Jr, DO 01/08/23 1321 Signed By: 01/08/23 1322 Normal [facility] XR hip LT min 2V(w/wo pelvis)* [facility] [employer] Other XR hip LT min 2V(w/wo pelvis)* [facility] [employer] Other XR hip LT min 2V(w/wo pelvis)* [address] [place] [address] [employer] Other XR hip LT min 2V(w/wo pelvis)* [place] [address] [employer] Other XR hip LT min 2V(w/wo pelvis)* XRay Report [employer] Other XR hip LT min 2V(w/wo pelvis)* Signed [employer] Other XR hip LT min 2V(w/wo pelvis)* Patient: Adriana Dinero I MR#: [id number] [facility] [employer] Other XR hip LT min 2V(w/wo pelvis)* 056 [employer] Other XR hip LT min 2V(w/wo pelvis)* : 1955 Acct:[id number] [employer] Other XR hip LT min 2V(w/wo pelvis)* Age/Sex: 67 / F ADM Date: 01/08/23 [employer] Other XR hip LT min 2V(w/wo pelvis)* [place]: [facility] [place]: Type: [facility] [employer] Other XR hip LT min 2V(w/wo pelvis)* Attending Dr: Samuel Chatman II, MD [facility] Other XR hip LT min 2V(w/wo pelvis)* Copies to: Samuel Chatman MD [employer] Other XR hip LT min 2V(w/wo pelvis)* Ordering Provider: Samuel Chatman MD [employer] Other XR hip LT min 2V(w/wo pelvis)* Date of Service: 01/08/23 [employer] Other XR hip LT min 2V(w/wo pelvis)* XR/XR hip LT min 2V(w/wo pelvis)*: Left hip pain [employer] Other XR hip LT min 2V(w/wo pelvis)* LEFT HIP - 2 views: [employer] Other XR hip LT min 2V(w/wo pelvis)* CLINICAL HISTORY: Left hip pain for months. [employer] Other XR hip LT min 2V(w/wo pelvis)* COMPARISON: Hip series 11/22/2022 [employer] Other XR hip LT min 2V(w/wo pelvis)* FINDINGS: Mild degenerative changes of both hips without acute bony process. [employer] Other XR hip LT min 2V(w/wo pelvis)* XR/XR hip LT min 2V(w/wo pelvis)* [employer] Other XR hip LT min 2V(w/wo pelvis)* IMPRESSION: [employer] Other XR hip LT min 2V(w/wo pelvis)* MILD DEGENERATIVE CHANGES OF BOTH HIPS WITHOUT ACUTE BONY PROCESS.. [employer] Other XR hip LT min 2V(w/wo pelvis)* Impression dictated by: Montana Pop Jr., D.OOdessa01/08/2023 1:22 PM [employer] Other XR hip LT min 2V(w/wo pelvis)* Dictation Location: [place] [address] [employer] Other XR hip LT min 2V(w/wo pelvis)* Transcribed By: VALERIE 01/08/23 [facility] [employer] Other XR hip LT min 2V(w/wo pelvis)* Dictated By: Montana Pop Jr, DO 01/08/23 [facility] [employer] Other XR hip LT min 2V(w/wo pelvis)* Signed By: [employer] Other XR hip LT min 2V(w/wo pelvis)* 01/08/23 [facility] [employer] Other Office Visit (Cardiology)on 12-09-2022 Follow-up visit [...] Former smoker Tobacco Use Screening; Status:Complete; Done: [id number] Patient Instructions Please bring all medicines, vitamins, [...] and provided the patient with 2 local natural resource manager in [facility]. ASSESSMENT AND PLAN: 1. Supraventricular tachycardia, on [...] follow-up will be scheduled Iban Lu MD, [facility] Surgical History Problems History of Back surgery [...] Recorded: 09Dec2022 01:25PM Heart Rate78, L Radial Bsditopt078, LUE, Sitting Dynspodlx79, LUE, Sitting Height5 ft 6 in Natnzy287 lb BMI Kepxdpvmfa85.03 kg/m2 BSA Calculated2.19 Tobacco Useb) No PHQ-2 [...] Dec 09 2022 2:09PM EST (Author) Normal [facility] Tobacco Screening.on 023 Fall risk assessment b) One or more fall s in the last year -[facility] 250 DO Work Phone: Tobacco use status [facility] b) No [facility] 250 DO Work Phone: Tobacco Screening. Yes [facility] 250 DO Work Phone: XR hip BI w [id number] 11-22-19 XR hip BI w [id number] [facility] Main [address] [address] XRay Report Signed Patient: Adriana Dinero I MR#: [id number] 056 : 1955 Acct:[id number] Age/Sex: 67 / F ADM Date: 11/22/22 Loc: XD Room: Type: REG CLI Attending Dr: Leeann Quintana Copies to: Leeann [...] Pop Jr., D.O.11/22/2022 1:12 PM Dictation Location: [place] [address] Transcribed By: [facility] 11/22/22 1312 Dictated By: Montana Pop Jr, DO 11/22/22 1311 Signed By: 11/22/22 1312 Normal [facility] XR lumbar spine AP/LAT/FLX/E XTon 11-22-2022 XR lumbar spine AP/LAT/FLX/EXT [address] [address] XRay Report Signed Patient: Adriana Dinero I MR#: [id number] : 1955 Acct:[id number] Age/Sex: 67 / F ADM Date: 11/22/22 Loc: XD Room: Type: REG CLI Attending Dr: Leeann Quintana Copies to: Leeann [...] Pop Jr., D.O.11/22/2022 1:11 PM Dictation Location: [place] [address] Transcribed By: [facility] 11/22/22 1311 Dictated By: Montana Pop Jr, DO 11/22/22 1309 Signed By: 11/22/22 1311 Normal [facility] CREATININEon 10-04-2022 Creatinine [Mass/Vol] 0.75 mg/dL Normal 0.55-1.02 [facility] Comment on above: Performed By: #### C CARLOS #### [facility] [address] [address] [address] Henrietta Zavala EGFR-AF CAMEROONIAN >60 Normal >=60 [facility] Comment on above: Performed By: #### C CARLOS #### [facility] [address] [address] [address] Henrietta Zavala EGFR-NON AF CAMEROONIAN >60 Normal >=60 [facility] Comment on above: Performed By: #### C CARLOS #### [facility] [address] [place] [address] Dr. Henrietta Zavala MRI LSPINE WO W [...] SHALA OMER Date: 2022-10-04 11:19 Normal [facility] Covid-19 PCR (CVDTB)on 07-11 SARS-CoV-2 (COVID-19) RNA DAVID+probe Ql (Unsp spec) Not detected Normal NOT DETECTED [facility] Comment on above: Result Comment: This test is not yet approved or cleared by the [place] FDA. When there are no FDA-approved or cleared tests available, and other criteria are met, FDA can make tests available under an emergency access mechanism called an Emergency Use Authorization (EUA). The EUA for this test is supported by the [place] of Health and Human Service's (HHS's) declaration [...] consistent with SARS-CoV-2. Performed By: #### [facility] #### [facility] [address] [place] [address] Dr. Henrietta Zavala XR HIPS JI 3_4V [...] CAITLYN CABRERA Date: 2022-04-15 07:00 Normal [facility] XR TSPINE 3 VIEWSon 04-15-20 22 XR [...] CAITLYN CABRERA Date: 2022-04-15 07:03 Normal [facility] CBC AUTO DIFFon 04-12-2022 BASO # 0.1 103/ul Normal 0.0-0.1 [facility] Comment on above: Performed By: #### C BC #### [facility] [address] [place] [address] Dr. Henrietta Zavala Basophils/100 WBC (Bld) 0.4 % Normal 0.2-2.0 [facility] Comment on above: Performed By: #### C BC #### [facility] [address] [place] [address] Dr. Henrietta Zavala EO # 0.1 103/ul Normal 0.0-0.7 [facility] Comment on above: Performed By: #### C BC #### [facility] [address] [place] [address] Dr. Henrietta Zavala Eosinophils/100 WBC (Bld) 0.4 % Critically low 0.9-7.0 [facility] Comment on above: Performed By: #### C BC #### [facility] [address] [place] [address] Dr. Henrietta Zavala Erythrocyte distribution width (RBC) [Ratio] 14.1 % Normal 11.0-15.0 [facility] Comment on above: Performed By: #### C BC #### [facility] [address] [place] [address] Dr. Henrietta Zavala Hematocrit (Bld) [Volume fraction] 44.9 % Normal 36.0-48.0 [facility] Comment on above: Performed By: #### C BC #### [facility] [address] [place] [address] Dr. Henrietta Zavala Hemoglobin (Bld) [Mass/Vol] 14.2 g/dL Normal 12.0-16.0 [facility] Comment on above: Performed By: #### C BC #### [facility] [address] [place] [address] Dr. Henrietta Zavala IG # 0.06 10e3/ul Critically high 0.00-0.03 [facility] Comment on above: Performed By: #### C BC #### [facility] [address] [place] [address] Dr. Henrietta Zavala IG % 0.5 % Normal 0.0-0.5 [facility] Comment on above: Performed By: #### C BC #### [facility] [address] [address] [address] Henrietta Zavala LYMPH # 2.2 103/ul Normal 1.2-3.8 [facility] Comment on above: Performed By: #### C BC #### [facility] [address] [address] [address] Henrietta Zavala Lymphocytes/100 WBC (Bld) 19.4 % Critically low 20.5-60.0 [facility] Comment on above: Performed By: #### C BC #### [facility] [address] [address] [address] Henrietta Zavala MANUAL DIFF REQ NO Normal [facility] Comment on above: Performed By: #### C BC #### [facility] [address] [place] [address] Dr. Henrietta Zavala MCH (RBC) [Entitic mass] 27.5 pg Normal 26.7-34.0 [facility] Comment on above: Performed By: #### C BC #### [facility] [address] [place] [address] Dr. Henrietta Zavala MCHC (RBC) [Mass/Vol] 31.6 g/dL Normal 29.9-35.2 [facility] Comment on above: Performed By: #### C BC #### [facility] [address] [place] [address] Dr. Henrietta Zavala MCV (RBC) [Entitic vol] 86.8 fL Normal 81.0-99.0 [facility] Comment on above: Performed By: #### C BC #### [facility] [address] [place] [address] Dr. Henrietta Zavala MONO # 0.9 103/ul Critically high 0.3-0.8 [facility] Comment on above: Performed By: #### C BC #### [facility] [address] [place] [address] Dr. Henrietta Zavala Monocytes/100 WBC (Bld) 7.9 % Normal 1.7-12.0 [facility] Comment on above: Performed By: #### C BC #### [facility] [id number] Henrietta Zavala NEUT # 8.1 103/ul Critically high 1.4-6.5 [facility] Comment on above: Performed By: #### C BC #### [facility] [id number] Henrietta Zavala Neutrophils/100 WBC (Bld) 71.4 % Normal 43.0-75.0 [facility] Comment on above: Performed By: #### C BC #### [facility] [address] [address] [address] Henrietta Zavala Platelet mean volume (Bld) [Entitic vol] 9.7 fL Normal 9.5-13.5 [facility] Comment on above: Performed By: #### C BC #### [facility] [address] [address] [address] Henrietta Zavala PLT 284 103/ul Normal 150-450 [facility] Comment on above: Performed By: #### C BC #### [facility] [address] [address] [address] Henrietta Zavala RBC 5.17 106/ul Normal 4.20-5.40 [facility] Comment on above: Performed By: #### C BC #### [facility] [address] [address] [address] Henrietta Zavala WBC 11.3 103/ul Critically high 4.0-11.0 [facility] Comment on above: Performed By: #### C BC #### [facility] [address] [address] [address] Henrietta Zavala LIPID PROFILEon 04-12-2022 CHOL-HDL RATIO NORM SEE BELOW Normal [facility] Comment on above: Result Comment: 3.3 - 4.4 LOW RISK 4.4 - 7.1 AVERAGE RISK 7.1 - 11.0 MODERATE RISK >11.0 HIGH RISK Performed By: #### C MP, LIPID #### [facility] [address] [address] [address] Henrietta Zavala Cholesterol [Mass/Vol] 235 mg/dL Critically high <=200 [facility] Comment on above: Performed By: #### C MP, LIPID #### [facility] [address] [address] [address] Henrietta Zavala Cholesterol in HDL [Mass/Vol] 47 mg/dL Normal 40-60 [facility] Comment on above: Performed By: #### C MP, LIPID #### [facility] [address] [address] [address] Henrietta Zavala Cholesterol in LDL [Mass/Vol] 160.8 mg/dL Normal [facility] Comment on above: Performed By: #### C MP, LIPID #### [facility] [address] [address] [address] Henrietta Zavala Cholesterol.total/Ch olesterol in HDL [Mass ratio] 5.0 {ratio} Normal [facility] Comment on above: Performed By: #### C MP, LIPID #### [facility] [address] [place] [address] Dr. Henrietta Zavala HDL NORMAL > or = 60 mg/dl - LO W CARDIOVASCULAR RISK <40 mg/dl - HIGH CARDIOVASCULAR RISK Normal [facility] Comment on above: Performed By: #### C MP, LIPID #### [facility] [address] [place] [address] Dr. Henrietta Zavala LDL CALC NORMAL SEE BELOW Normal [facility] Comment on above: Result Comment: <100 mg/dl OPTIMAL 100 - 129 mg/dl NEAR OR ABOVE OPTIMAL 130 - 159 mg/dl BORDERLINE HIGH 160 - 189 mg/dl HIGH >190 mg/dl VERY HIGH Performed By: #### C MP, LIPID #### [facility] [address] [place] [address] Dr. Henrietta Zavala Triglyceride [Mass/Vol] 136 mg/dL Normal <=150 [facility] Comment on above: Performed By: #### C MP, LIPID #### [facility] [address] [place] [address] Dr. Henrietta Zavala VLDL CALC 27.2 mg/dL Normal [facility] Comment on above: Performed By: #### C MP, LIPID #### [facility] [address] [place] [address] Dr. Henrietta Zavala PROF 14(COMP METB)on 022 Albumin [Mass/Vol] 3.2 g/dL Critically low 3.4-5.0 [facility] Comment on above: Performed By: #### C MP, LIPID #### [facility] [address] [address] [address] Henrietta Zavala Albumin/Globulin [Mass ratio] 0.8 {ratio} Normal [facility] Comment on above: Performed By: #### C MP, LIPID #### [facility] [address] [address] [address] Henrietta Zavala ALP [Catalytic activity/Vol] 127 U/L Critically high 46-116 [facility] Comment on above: Performed By: #### C MP, LIPID #### [facility] [address] [place] [address] Dr. Henrietta Zavala ALT [Catalytic activity/Vol] 55 U/L Normal 14-59 [facility] Comment on above: Performed By: #### C MP, LIPID #### [facility] [address] [address] [address] Henrietta Zavala Anion gap [Moles/Vol] 13.6 mmol/L Normal [facility] Comment on above: Performed By: #### C MP, LIPID #### [facility] [address] [place] [address] Dr. Henrietta Zavala AST [Catalytic activity/Vol] 24 U/L Normal 15-37 [facility] Comment on above: Performed By: #### C MP, LIPID #### [facility] [address] [address] [address] Henrietta Zavala Bilirubin [Mass/Vol] 0.3 mg/dL Normal 0.2-1.0 [facility] Comment on above: Performed By: #### C MP, LIPID #### [facility] [address] [address] [address] Henrietta Zavala Calcium [Mass/Vol] 8.8 mg/dL Normal 8.5-10.[address] [facility] Comment on above: Performed By: #### C MP, LIPID #### [facility] [address] [address] [address] Henrietta Zavala Chloride [Moles/Vol] 107 mmol/L Normal 98-107 [facility] Comment on above: Performed By: #### C MP, LIPID #### [facility] [address] [place] [address] Dr. Henrietta Zavala CO2 [Moles/Vol] 25.6 mmol/L Normal 21.0-32.0 [facility] Comment on above: Performed By: #### C MP, LIPID #### [facility] [address] [place] [address] Dr. Henrietta Zavala Creatinine [Mass/Vol] 0.77 mg/dL Normal 0.55-1.02 [facility] Comment on above: Performed By: #### C MP, LIPID #### [facility] [address] [place] [address] Dr. Henrietta Zavala EGFR-AF CAMEROONIAN >60 Normal >=60 [facility] Comment on above: Performed By: #### C MP, LIPID #### [facility] [address] [place] [address] Dr. Henrietta Zavala EGFR-NON AF CAMEROONIAN >60 Normal >=60 [facility] Comment on above: Performed By: #### C MP, LIPID #### [facility] [address] [place] [address] Dr. Henrietta Zavala Globulin (S) [Mass/Vol] 3.8 g/dL Normal [facility] Comment on above: Performed By: #### C MP, LIPID #### [facility] [address] [address] [address] Henrietta Zavala Glucose [Mass/Vol] 90 mg/dL Normal 74-106 [facility] Comment on above: Performed By: #### C MP, LIPID #### [facility] [address] [place] [address] Dr. Henrietta Zavala Potassium [Moles/Vol] 4.2 mmol/L Normal 3.5-5.1 [facility] Comment on above: Performed By: #### C MP, LIPID #### [facility] [address] [place] [address] Dr. Henrietta Zavala Protein [Mass/Vol] 7.0 g/dL Normal 6.4-8.[address] [facility] Comment on above: Performed By: #### C MP, LIPID #### [facility] [address] [address] [address] Henrietta Zavala Sodium [Moles/Vol] 142 mmol/L Normal 136-[address] [facility] Comment on above: Performed By: #### C MP, LIPID #### [facility] [address] [address] [address] Henrietta Zavala Urea nitrogen [Mass/Vol] 13.0 mg/dL Normal 7.0-18.0 [facility] Comment on above: Performed By: #### C MP, LIPID #### [facility] [address] [address] [address] Henrietta Zavala Urea nitrogen/Creatinine [Mass ratio] 16.9 mg/mg Normal [facility] Comment on above: Performed By: #### C MP, LIPID #### [facility] [address] [place] [address] Dr. Henrietta Zavala Tobacco Screening.on 021 Fall risk assessment a) No falls within the last year [facility] 250 DO Work Phone: Tobacco use status CPHS b) No [facility] 250 DO Work Phone: KNEE LEFT [address] [facility] 03-30-2021 KNEE LEFT 3 S [facility] Department of Radiology [address] [place] [id number] ======== Patient Name: ADRIANA RAYGOZA : 1955 Sex: F Age: Race: White Pt. Location: Patient Status: Ordered Date: 03/30/2021 9:00:00 AM Completed Date: 03/30/2021 09:07 AM Requesting Provider: RAMANDEEP PATEL Attending Provider: Report Copy To: Signs & Symptoms: M25.562 Pain in left knee I10 History: Deb Comments: , , , Ordering Provider - RAMANDEEP PATEL MD , Exam: KNEE LEFT 3 [facility] ======== KNEE LEFT 3 S 03/30/2021 9:07 AM CLINICAL INDICATIONS: M25.562 Pain [...] findings. Electronically signed: Jesse Lazaro. Transcribed by: [email or web address], User Resident: Electronically Signed by: JESSE LAZARO @ 03/30/2021 11:00 AM Normal [facility] Comment on above: Order Comment: , , = ========= , Ordering Provider - RAMANDEEP PATEL MD , KNEE RIGHT 3 Son KNEE RIGHT 3 S [facility] Department of Radiology [address] [place] [id number] ======== Patient Name: ADRIANA RAYGOZA : 1955 Sex: F Age: Race: White Pt. Location: 84 Patient Status: O Ordered Date: 03/30/2021 9:05:00 AM Completed Date: 03/30/2021 09:07 AM Requesting Provider: RAMANDEEP PATEL Attending Provider: RAMANDEEP PATEL Report Copy To: Signs & Symptoms: M25.569 Pain in unspecified knee I10 History: [place] Comments: Evaluate Exam: KNEE RIGHT 3 [facility] ======== CLINICAL INFORMATION: Chronic right knee pain. [...] reports Electronically signed: Jesse Lazaro. Transcribed by: [email or web address], User Resident: SHALA EATON Electronically Signed by: JESSE LAZARO @ 03/30/2021 03:52 PM I personally read this/these film(s) with this resident Normal [facility] Comment on above: Order Comment: Evalu ate MRI LUMBAR SP W & WO CONTRAS Ton 10-11-2020 MRI LUMBAR SP W & WO CONTRAST STUDY: MRI LUMBAR SP W WO CONTRAST; 10/11/2020 11:35 am INDICATION: POST LAMINECTOMY SYNDROME. COMPARISON: None. ACCESSION NUMBER(S): [id number] ORDERING CLINICIAN: Denis Donohue TECHNIQUE: The lumbar [...] osteomyelitis. * THIS EXAMINATION WAS INTERPRETED AT [facility] Normal [facility] LUMB SP COMP W FLEX/EXT 6 VW Son 09-12-2020 LUMB SP COMP W FLEX/EXT 6 VWS STUDY: LUMB SP COMP W FLEX/EXT 6 VWS ; ; 09/12/2020 8:45 am INDICATION: PAIN. COMPARISON: None. ACCESSION NUMBER(S): [id number] ORDERING CLINICIAN: Denis Donohue FINDINGS: Status post [...] neural foraminal stenosis at L5-S1 level. Normal [facility] Ambulatory Clinical Summaryo n 05-22-2020 Ambulatory Clinical Summary {[id number] }[id number] Normal [facility] Coding Summary.on 05-10-2020 Coding Summary. CODING DATE: 05/10/2020 FINAL [facility] STATUS: Home (Routine DC) PAYOR: Commercial Insurance [...] Jasmine CphT Date Saved: 05/10/2020 04:39 pm [facility] Coding Summary.on 05-08-2020 Coding Summary. CODING DATE: 05/08/2020 [facility] STATUS: Home (Routine DC) PAYOR: Commercial Insurance [...] Jasmine CphT Date Saved: 05/08/2020 12:00 pm [facility] IntraOperative Documentson 0 05-08-2020 IntraOperative Documents [id number]#1. 00CD:127 [facility] Postoperative Documentson Postoperative Documents [id number]#1.0 0CD:127 [facility] Coding Summary.on 05-04-2020 Coding Summary. CODING DATE: 05/04/2020 [facility] STATUS: Home (Routine DC) PAYOR: Commercial Insurance APC DESCRIPTION 5301 Level 1 Upper GI Procedures ADMIT DX: REASON FOR VISIT DX: R10.13 Epigastric pain FINAL DX: PRINCIPAL: K29.50 Unspecified chronic gastritis without bleeding SECONDARY: K25.9 Gastric ulcer, unspecified as acute or chronic, without hemorrhage or perforation R11.2 Nausea with vomiting, unspecified PYMT PROC APC STAT DESCRIPTION DOCTOR NAME DATE [id number] 5301 Reid CLINE MD 05/01/2020 phagogastroduodenoscop y, flexible, transoral; with biopsy, single or multiple 71702 Anesthesia for upper Elliot Tena Jr, DO [...] Revised Date Saved: 05/04/2020 03:45 pm Normal [facility] Progress Note-Physicianon Progress Note-Physician Patient: ADRIANA [...] Cardiovascular: Regular rhythm. Neurologic: Alert, Oriented. Plan [place] [employer] Anesthesiologists (ASA) physical status classification: Class II. Anesthetic Preoperative Plan Anesthesia: General. . Anesthetic plan, risks, benefits, and alternatives discussed with the patient and/or family. Communication: face to face with (patient 5 minutes, Patient educated on smoking cesstation). Normal [facility] Comment on above: Result Comment: Elec tronically Signed By: Elliot Tena Jr, DO\.br\Date and Time Signed: 05/03/20 09:34 EDT Main OR Intraoperative Recor don 05-02-2020 Main OR Intraoperative Record IntraOp Document Type FT Summary Primary Physician: Reid NIEVES MD Finalized Date/Time: 05/02/20 13:35:19 Pt. Name: ADRIANA DINERO Shoshana VeraB./Sex: 1955 Female Med Rec #: [id number] Physician: Reid NIEVES MD Financial #: [id number] Pt. Type: O Room/Bed: / Admit/Disch: 05/01/20 07:03:44 - 05/01/20 23:59:59 Institution: Case Times FT Entry 1 Patient Times In Room 05/01/20 08:17:00 Out Room 05/01/20 08:25:00 Procedure Times Start 05/01/20 08:21:00 Stop 05/01/20 08:23:00 Anesthesia Times Start 05/01/20 08:17:00 Stop 05/01/20 08:25:00 Last Modified By: Savannah Chavis RN 05/01/20 08:26:21 General Comments: 05/02/2020 Chart opened to review and send charges Juvencio Andrés SHOPPING INVESTIGATOR Case Attendance FT Entry 1 Entry 2 Entry 3 Case Attendee Elliot Tena Jr, DO, RN, Fior Simms Role Performed Anesthesiologist of Call Center Representative - Primary Scrub - Primary Record Time [...] Given Participants Palmira RUIZ, EZEQUIEL Nuñez MD, Gurvinder Mathews Kirstyn K Time Out [...] Patient Status Stable Skin. Condition Intact, [place], Warm, and Dry Airway Maintenance Oxygen in Use? No Outcomes Met? Yes Last Modified By: Savannah Chavis RN 05/01/20 06:57:50 Post-Care Text: The patient is free from signs and symptoms of injury related to transfer/transport General Comments: Report given to rescue worker. RHRN Medication Administration FT Pre-Care Text: Verifies allergies, administers prescribed medications and solutions, administers prescribed antibiotic therapy and immunizing agents as ordered, evaluates response to medications Administers prescribed medications and solutions Entry 1 Expiration Date Yes Outcomes Met? Yes Verified Last Modified By: Savannah Chavis RN 05/01/20 06:57:59 Post-Care Text: The patient received appropriate medication(s) safely administered during the perioperative period For [place] please see scanned medication reconcilliation form for [...] 08:26 Altagracia Bowen CST 05/02/20 13:35 Normal [facility] Consenton 05-01-2020 Consent [id number]#1.0 0CD:127 Normal [facility] Consent for Treatmenton 04-11 Consent for Treatment [id number]#1.0 0CD:127 Normal [facility] Discharge Instructionson Discharge Instructions [id number]#1.0 0CD:127 [facility] History and Physicalon 05-01 History and Physical [id number] 0CD:127 Normal [facility] Inpatient Patient Summaryon 05-01-2020 Inpatient Patient Summary [address] [address] [facility] Clinical Discharge Instructions PERSON INFORMATION Name: ADRIANA DINERO I [facility]#:[id number] PHYSICIANS Admitting Physician: Reid NIEVES MD Attending Physician: Reid NIEVES MD PCP: TOBY QUINTANA MD Discharge Diagnosis: Antral ulcer Comment: PATIENT EDUCATION INFORMATION Instructions: Medication Leaflets: Follow up: With: Address: When: [facility] [address] [place] [address] Within 2 weeks Type Location Start [facility] Follow Up [facility] 05/22/2020 2:15 PM 05/22/2020 2:30 PM Confirmed MEDICATION LIST Medications to Continue Taking That Have Changed [facility] [facility], [address], [place] [id number], [phone] START: omeprazole (omeprazole 40 mg Cap-DR) 1 [...] Mouth every 8 hours. Refills: 1. Comment: [facility] IntraOperative Documentson 0 05-01-2020 IntraOperative Documents [id number]#1.0 0CD:127 [facility] IntraOperative Documents [id number]#1.0 0CD:127 [facility] Main OR PACU I Recordon 04-11 Main OR PACU I Record PACU Phase I Document Type FT Summary Primary Physician: Reid NIEVES MD Finalized Date/Time: 05/01/20 09:14:39 Pt. Name: ADRIANA DINERO Shoshana Jerome/Sex: 1955 Female Med Rec #: [id number] Physician: Reid NIEVES MD Financial #: [id number] Pt. Type: O Room/Bed: / Admit/Disch: 05/01/20 [...] Signed By: Ami Donaldson RN 05/01/20 09:14 [facility] Main OR Preoperative Recordo n 05-01-2020 Main OR Preoperative Record Holding Area Document Type FT Summary Primary Physician: Reid NIEVES MD Finalized Date/Time: 05/01/20 07:37:17 Pt. Name: ADRIANA DINERO/Sex: 1955 Female Med Rec #: [id number] Physician: Reid NIEVES MD Financial #: [id number] Pt. Type: O Room/Bed: / Admit/Disch: 05/01/20 [...] By: Lizbeth Diamond RN 05/01/20 07:37 Normal [facility] Monitor Recordon 05-01-2020 Monitor Record [id number]#1. 00CD:127 Normal [facility] Patient Education - Texton 0 05-01-2020 Patient Education - Text Normal [facility] Ambulatory Clinical Summaryo n 04-24-2020 Ambulatory Clinical Summary {[id number] Normal [facility] Auto Diffon 04-24-2020 Basophils/100 WBC (Bld) 0.5 % Normal 0.0-2.0 [facility] Comment on above: Order Comment: Order Added by Discern Expert. Performed By: #### 2 306795, 3218434, 2192413, 4169785, 63618494 #### [facility] [address] [place] [address] 37567 Basophils/Leukocytes Auto (Bld) [Pure # fraction] 0.0 E9/L Normal 0.0-0.2 [facility] Comment on above: Order Comment: Order Added by Discern Expert. Performed By: #### 2 770382, 1742089, 5249290, 3684750, 82953789 #### [facility] [address] [place] [address] 52920 Eosinophils/100 WBC (Bld) 2.9 % Normal 0.0-8.0 [facility] Comment on above: Order Comment: Order Added by Discern Expert. Performed By: #### 2 518831, 3947654, 2398991, 0505545, 53708387 #### [facility] [address] [place] [address] 77289 Eosinophils/Leukocyt es Auto (Bld) [Pure # fraction] 0.3 E9/L Normal 0.0-0.5 [facility] Comment on above: Order Comment: Order Added by Discern Expert. Performed By: #### 2 298802, 3219700, 6501410, 4106531, 55637872 #### [facility] [address] [place] [address] 29723 Lymphocytes/100 WBC (Bld) 23.7 % Normal 14.0-50.0 [facility] Comment on above: Order Comment: Order Added by Discern Expert. Performed By: #### 2 749038, 9424965, 0770696, 3216511, 82116792 #### [facility] [address] [place] [address] 07878 Lymphocytes/Leukocyt es Auto (Bld) [Pure # fraction] 2.2 E9/L Normal 1.0-4.0 [facility] Comment on above: Order Comment: Order Added by Discern Expert. Performed By: #### 2 466812, 3760096, 6830592, 7648706, 13977986 #### [facility] [address] [place] [address] 73254 Monocytes/100 WBC (Bld) 7.4 % Normal 4.0-14.0 [facility] Comment on above: Order Comment: Order Added by Discern Expert. Performed By: #### 2 308797, 3587505, 1124066, 6318199, 66857583 #### [facility] [address] [place] [address] Monocytes/Leukocytes Auto (Bld) [Pure # fraction] 0.7 E9/L Normal 0.2-1.0 [facility] Comment on above: Order Comment: Order Added by Discern Expert. Performed By: #### 2 639484, 3628510, 3236900, 0240886, 39927984 #### [facility] [address] [place] [address] 56850 Neutrophils/100 WBC (Bld) 65.5 % Normal 36.0-75.0 [facility] Comment on above: Order Comment: Order Added by Discern Expert. Performed By: #### 2 381112, 4756920, 3290610, 6986941, 07333849 #### [facility] [address] [place] [address] 01797 Neutrophils/Leukocyt es Auto (Bld) [Pure # fraction] 6.0 E9/L Normal 2.0-7.5 [facility] Comment on above: Order Comment: Order Added by Discern Expert. Performed By: #### 2 680399, 0726422, 8115262, 1719086, 30813190 #### [facility] [address] [place] [address] 24211 CBC w/ Auto Diffon 0 Erythrocyte distribution width (RBC) [Ratio] 16.1 % High 10.9-14.2 [facility] Comment on above: Performed By: #### 2 463381, 8662984, 5285213, 6212619, 54145468 #### [facility] [address] [place] [address] 22936 Hematocrit (Bld) [Volume fraction] 45.1 % Normal 34.0-46.0 [facility] Comment on above: Performed By: #### 2 230478, 2138690, 8803984, 5330507, 16343829 #### [facility] [address] [place] [address] 38042 Hemoglobin (Bld) [Mass/Vol] 15.0 g/dL Normal 12.0-16.0 [facility] Comment on above: Performed By: #### 2 749110, 5150047, 9170168, 9625776, 13926760 #### [facility] [address] [place] [address] 11390 MCH (RBC) [Entitic mass] 27.2 pg Normal 27.0-34.0 [facility] Comment on above: Performed By: #### 2 927490, 3406807, 1685467, 7015805, 32964405 #### [facility] [address] [place] [address] 88587 MCHC (RBC) [Mass/Vol] 33.2 g/dL Normal 31.4-36.0 [facility] Comment on above: Performed By: #### 2 982234, 5025035, 6182968, 8982148, 71269792 #### [facility] [address] [place] [address] 26552 MCV (RBC) [Entitic vol] 82.0 fL Normal 80.0-100.0 [facility] Comment on above: Performed By: #### 2 131875, 1306087, 7125197, 4077336, 97717845 #### [facility] [address] [place] [address] 92930 Platelet mean volume (Bld) [Entitic vol] 7.3 fL Normal 6.4-10.8 [facility] Comment on above: Performed By: #### 2 518198, 7786218, 5590386, 3119552, 11734729 #### [facility] [address] [place] [address] 11403 Platelets (Bld) [#/Vol] 253.0 E9/L Normal 150.0-500.0 [facility] Comment on above: Performed By: #### 2 898369, 4838307, 8986133, 1930221, 20974093 #### [facility] [address] [place] [address] 05222 RBC (Bld) [#/Vol] 5.5 E12/L Normal 4.3-5.9 [facility] Comment on above: Performed By: #### 2 232936, 6852299, 4152091, 7273013, 65498870 #### [facility] [address] [place] [address] 68204 WBC corrected for nucl RBC Auto (Bld) [#/Vol] 9.1 E9/L Normal 4.0-11.0 [facility] Comment on above: Performed By: #### 2 877070, 2453642, 8611822, 4456910, 64075381 #### [facility] [address] [place] [address] 46217 CMPon 04-24-2020 Albumin [Mass/Vol] 3.7 g/dL Normal 3.3-5.0 [facility] Comment on above: Performed By: #### 2 280457, 9377802, 9384114, 9758661, 13536893 #### [facility] [address] [place], [place] [address] Albumin [Mass/Vol] 1.0 g/dL Low 1.1-2.2 [facility] Comment on above: Performed By: #### 2 893435, 4725978, 0982902, 9566230, 23457707 #### [facility] [address] [place] [address] 31494 ALP [Catalytic activity/Vol] 107 Int._Unit/L High 21-98 [facility] Comment on above: Performed By: #### 2 091306, 9379919, 3323667, 4284857, 31279312 #### [facility] [address] [place] [address] 22374 ALT No additional P-5'-P [Catalytic activity/Vol] 17 Int._Unit/L Normal 6-46 [facility] Comment on above: Performed By: #### 2 294477, 9432692, 5472366, 4616475, 90088350 #### [facility] [address] [place] [address] Anion gap [Moles/Vol] 11 mmol/L Normal 6-16 [facility] Comment on above: Performed By: #### 2 387145, 6683498, 0963286, 4301709, 31148602 #### [facility] [address] [place] [address] AST [Catalytic activity/Vol] 21 Int._Unit/L Normal 5-43 [facility] Comment on above: Performed By: #### 2 270160, 6872073, 1710633, 5700534, 90192155 #### [facility] [address] [place] [address] Bilirubin [Mass/Vol] 0.5 mg/dL Normal 0.0-1.1 [facility] Comment on above: Performed By: #### 2 437243, 9564136, 2832412, 1333220, 74154352 #### [facility] [address] [place] [address] Calcium [Mass/Vol] 9.0 mg/dL Normal 8.9-11.1 [facility] Comment on above: Performed By: #### 2 365635, 2875185, 5625656, 0564488, 99691367 #### [facility] [address] [place] [address] Chloride [Moles/Vol] 107 mmol/L Normal 101-111 [facility] Comment on above: Performed By: #### 2 715722, 3742961, 6263705, 2054493, 01381734 #### [facility] [address] [place] [address] CO2 [Moles/Vol] 27 mmol/L Normal 21-31 [facility] Comment on above: Performed By: #### 2 530969, 2469040, 4818591, 7931729, 55989857 #### [facility] [address] [place] [address] Creatinine [Mass/Vol] 0.8 mg/dL Normal 0.5-1.3 [facility] Comment on above: Performed By: #### 2 080659, 9551036, 2826439, 9254730, 16456876 #### [facility] [address] [place] [address] Globulin (S) [Mass/Vol] 3.7 g/dL Normal 1.4-4.0 [facility] Comment on above: Performed By: #### 2 996527, 9115701, 3129859, 1051526, 67575559 #### [facility] [address] [place] [address] Glucose [Mass/Vol] 134 mg/dL Normal 55-199 [facility] Comment on above: Result Comment: If t his glucose result represents a fasting glucose, interpretation should refer to the following reference range: 55-99 mg/dL Performed By: #### 2 213975, 4186192, 2479771, 8773196, 23614966 #### [facility] [address] [place] [address] Potassium [Moles/Vol] 3.9 mmol/L Normal 3.5-5.3 [facility] Comment on above: Performed By: #### 2 463944, 7481174, 9950776, 7941729, 46888858 #### [facility] [address] [place] [address] Protein [Mass/Vol] 7.4 g/dL Normal 6.0-7.8 [facility] Comment on above: Performed By: #### 2 606253, 6995484, 9634081, 4616479, 12595192 #### [facility] [address] [place] [address] Sodium [Moles/Vol] 141 mmol/L Normal 135-145 [facility] Comment on above: Performed By: #### 2 260823, 8934126, 6471587, 3439306, 75873940 #### [facility] [address] [place] [address] Urea nitrogen [Mass/Vol] 17 mg/dL Normal 5-21 [facility] Comment on above: Performed By: #### 2 737854, 8793462, 3708100, 1989246, 59644154 #### [facility] [address] [place] [address] Urea nitrogen/Creatinine [Mass ratio] 21 No Units High 10-20 [facility] Comment on above: Performed By: #### 2 456437, 9996026, 3192074, 2005342, 23312895 #### [facility] [address] [place] [address] Consent for Treatmenton 04-10 Consent for Treatment [id number] 0CD:127 Normal [facility] Lipase Levelon 04-24-2020 Lipase [Catalytic activity/Vol] 40 unit/L Normal 13-58 [facility] Comment on above: Performed By: #### 2 428017, 8887304, 8687618, 2713839, 51151287 #### [facility] [address] [place] [address] Physician Orderon 04-24-2020 Physician Order [id number] CD:127 Normal [facility] eGFRon 04-24-2020 GFR/1.73 sq M predicted among blacks MDRD (S/P/Bld) [Vol rate/Area] mL/min/{1.73_m2} Normal >=59 [facility] Comment on above: Order Comment: Order added by Discern Expert. Result Comment: eGFR is race adjusted. AA=. Performed By: #### 2 664910, 2027114, 3108641, 3772111, 05316974 #### [facility] [address] [place] [address] GFR/1.73 sq M predicted among non-blacks MDRD (S/P/Bld) [Vol rate/Area] mL/min/{1.73_m2} Normal >=59 [facility] Comment on above: Order Comment: Order added by Discern Expert. Result Comment: Mercerizing Range Controller farhan kidney disease could be indicated at eGFR's of less than 60 mL/min/1.73m2. Kidney failure is indicated at less than 15 mL/min/1.73m2. Performed By: #### 2 180880, 1658280, 6636647, 2229550, 26746423 #### [facility] [address] [place] [address] PROGRESSon 11-04-2019 PROGRESS HNO ID: [id number] Author: Bridger Ma Service: ? Author Type: Physician Type: Progress Notes Filed: 11/04/2019 5:12 PM Note Text: Bridger Ma MD Department of Orthopaedics Orthopaedics [address] [address] Dept: [phone] October 05, 2019 CHIEF COMPLAINT: New Patient [...] electronic medical record. Caitlyn Cantu, LIZZY [address] [facility] [address] Toby Quintana MD [address] [place] [phone] This note was partially generated using [employer] voice recognition system, and there may be some incorrect words, spellings, and punctuation that were not noted in checking the note before saving. 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 Patient had an x-ray done at [facility] on 11/02/18 and a MRI on 11/30/18. Patient hand carried copies of the reports and films on a CD. with patient today. Referred by Caitlyn Cantu. Taking Petroleum and Naproxen for the pain and does not help. Using a walker today and as needed at home. Bridger Ma MD 11/04/2019 5:12 PM Signed Bridger Ma MD Department of Orthopaedics Orthopaedics [address] [place] [address] Dept: [phone] October 05, 2019 CHIEF COMPLAINT: New Patient [...] Psych (no depression, anxiety) REFERRING PHYSICIAN: Ms. Adriaan Dinero was referred to me for consultation by the following physician. This consultation note will be sent to the following physician by either mail or electronic medical record. LIZZY Graham [address] [facility] [address] Toby Quintana MD [address] [place] [phone] This note was partially generated using [employer] voice recognition system, and there may be some incorrect words, spellings, and punctuation that were not noted in checking the note before saving. Bridger Ma MD Referring Provider: CAITLYN CANTU [[id number]] Allergies As of Date: 10/05/2019 Noted Allergy [...] mg injection (CELESTONE)Disp: Rfl: [facility] [[id number]] Order #: [id number]: 1 Large Joint Arthro/Inj: R knee joint [SJL220] Order #: [id number] betamethasone acetate-betamethasone sodium phosphate 6 mg injection [...] Status:Closed by BRIDGER MA MD on 11/04/19 [facility] PROGRESSon 10-05-2019 PROGRESS HNO ID: [id number] Author: Eleanor Talbot Ma Service: ? Author Type: ? Type: Progress Notes Filed: 11/04/2019 5:12 PM Note Text: Patient presents with: New Patient: Right knee pain - Ref. 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 Patient had an x-ray done at [facility] on 11/02/18 and a MRI on 11/30/18. Patient hand carried copies of the reports and films on a CD. with patient today. Referred by Caitlyn Cantu. Taking Petroleum and Naproxen for the pain and does not help. Using a walker today and as needed at home. Normal [facility] CREATININEon 08-26-2019 Creatinine [Mass/Vol] 0.80 mg/dL Normal 0.50 - 1.05 [facility] Comment on above: Performed By: #### C REAT #### [address] [address] Creatinine [Mass/Vol] mg/dL Normal >60 [facility] Comment on above: Performed By: #### C REAT #### [address] [address] Result Comment: CALC ULATIONS OF ESTIMATED GFR ARE PERFORMED USING THE MDRD STUDY EQUATION FOR THE IDMS-TRACEABLE CREATININE METHODS. CLIN CHEM 2007;53:766-72 ELECTROLYTE PANELon 08-26-20 19 Anion gap [Moles/Vol] 14 mmol/L Normal - 20 [facility] Comment on above: Performed By: #### E LECT #### [address] [address] Chloride [Moles/Vol] 104 mmol/L Normal 98 - 107 [facility] Comment on above: Performed By: #### E LECT #### [address] [address] HCO3 (Bld) [Moles/Vol] 29 mmol/L Normal 21 - 32 [facility] Comment on above: Performed By: #### E LECT #### [address] [address] Potassium [Moles/Vol] 4.6 mmol/L Normal 3.5 - 5.3 [facility] Comment on above: Performed By: #### E LECT #### [address] [address] Sodium [Moles/Vol] 142 mmol/L Normal 136 - 145 [facility] Comment on above: Performed By: #### E LECT #### [facility] [address] [place] [address] UREA NITROGENon 08-26-2019 Urea nitrogen [Mass/Vol] 14 mg/dL Normal 6 - 23 [facility] Comment on above: Performed By: #### U CARLOS #### [address] [address] [facility] CARDIAC STRESS/REST INJE CTIONon 08-25-2019 [facility] CARDIAC STRESS/REST INJECTION Patient Name: ADRIANA DINERO STUDY: MYOCARDIAL PERFUSION STRESS TEST WITH LEXISCAN Performing facility: [facility], [address] [place] [address], [address], [place] [address] [facility] Provider: GURU LU PCP: Dr. Poli QUINTANA Supervising provider: Poli VILLAFANA INDICATION: DYSPNEA EDEMA HISTORY: Gender: F; Age: 64 y/o ; Height: 170.18 cm; Weight: 127.223849 kg. SOB High Cholesterol; Family HX CAD; PALPITATIONS COMPARISON: ACCESSION NUMBER(S): [id number] ORDERING CLINICIAN: IBAN LU TECHNIQUE: TWO DAY [...] CON IMPORT Images were obtained outside of [facility] [id number] Normal [facility] CNOVon 07-07-2019 CNOV Office Visit (SPNMED ) ADRIANA DINERO ([id number]) 1955 F Date Time Provider Department 07/07/19 9:40 AM CAITLYN CANTU [facility] During your visit today, we recorded the following information about you: Pulse Blood pressure Weight Height 80/minute 126/55 124.1 kg 1.676 m LIZZY Graham 07/07/2019 1:08 PM Signed BEVERLEY Lopez [facility] [address] [place] [address] 07/07/2019 Assessment Diagnosis: Encounter Diagnosis ICD-10-CM 1. [...] told for multiple years that she has mzza-fq-kbex arthritis in the right knee and this [...] for those providers who practice within [facility] or with access to [employer] via MD Connect, or via letter. - [...] past--performed in [address] Jones in [place]. The procedure was a spinal laminectomy and fusion L2-4, and subsequent revision L2-5 lami/fusion with posterior hardware and interbody cages. 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 Author Type: Physician Wealth Management Director Type: Progress Notes Filed: 07/07/2019 1:08 PM Note Text: [facility] Cantu [facility]C [facility] [address] [place] [address] 07/07/2019 Assessment Diagnosis: Encounter Diagnosis ICD-10-CM 1. [...] told for multiple years that she has yfwx-mz-teiw arthritis in the right knee and this [...] for those providers who practice within [facility] or with access to [employer] via MD Connect, or via letter. SUBJECTIVE: [...] past--performed [place] [address] Jones in [place]. The procedure was a spinal laminectomy and fusion L2-4, and subsequent revision L2-5 lami/fusion with posterior hardware and interbody cages. 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 IMAGING STUDIES: See above Normal [facility] CT-CT cervical spine w con I MPORTon 04-08-2019 CT-CT cervical spine w con IMPORT Images were obtained outside of [facility] [id number] Normal [facility] CT-CT cervical spine w con IMPORT Images were obtained outside of [facility] [id number] Normal [facility] CT-CT cervical spine w con IMPORT Images were obtained outside of [facility] [id number] Normal [facility] CT-CT lumbar spine w con IMP Edi 04-08-2019 CT-CT lumbar spine w con IMPORT Images were obtained outside of [facility] [id number] Normal [facility] CT-CT lumbar spine w con IMPORT Images were obtained outside of [facility] [id number] Normal [facility] CT-CT lumbar spine w con IMPORT Images were obtained outside of [facility] [id number] Normal [facility] OT-IR myelogram spine total IMPORTon 04-08-2019 OT-IR myelogram spine total IMPORT Images were obtained outside of [facility] [id number] Normal [facility] OT-IR myelogram spine total IMPORT Images were obtained outside of [facility] [id number] Normal [facility] OT-IR myelogram spine total IMPORT Images were obtained outside of [facility] [id number] Normal [facility] OT-MRI C-SPINE WO CON IMPORT on 02-25-2019 OT-MRI C-SPINE WO CON IMPORT Images were obtained outside of [facility] [id number] Normal [facility] OT-XR KNEE RT 4V OR > IMPORT on 11-30-2018 OT-XR KNEE RT 4V OR > IMPORT Images were obtained outside of [facility] [id number] [facility] Vital Signs Date Time Vital Sign Value Performing Clinician Facility 08-12-2024 09: Body height 165.1 cm [facility] 08-12-2024 09: Body mass index (BMI) [Ratio] 39.2 kg/m2 [facility] 08-12-2024 09: Body weight 106.76 kg [facility] 08-12-2024 09: Diastolic blood pressure 72 mm[Hg] [facility] 08-12-2024 09: Heart rate 75 /min [facility] 08-12-2024 09:23-0400 Respiratory rate 16 /min [facility] 08-12-2024 09:23-0400 SaO2% (BldA) [Mass fraction] 96 % [facility] 08-12-2024 09:23-0400 Systolic blood pressure 128 mm[Hg] [facility] 04-30-2024 09:12-0400 Body height 165.1 cm [facility] 04-30-2024 09:12-0400 Body mass index (BMI) [Ratio] 39.6 kg/m2 [facility] 04-30-2024 09:12-0400 Body weight 107.95 kg [facility] 04-30-2024 09:12-0400 Diastolic blood pressure 74 mm[Hg] [facility] 04-30-2024 09:12-0400 Heart rate 75 /min [facility] 04-30-2024 09:12-0400 Systolic blood pressure 109 mm[Hg] [facility] 03-22-2024 13:18-0400 Body height 165.1 cm [facility] 03-22-2024 13:18-0400 Body mass index (BMI) [Ratio] 39.7 kg/m2 [facility] 03-22-2024 13:18-0400 Body weight 108.4 kg [facility] 03-22-2024 13:18-0400 Diastolic blood pressure 77 mm[Hg] [facility] 03-22-2024 13:18-0400 Heart rate 75 /min [facility] 03-22-2024 13:18-0400 Systolic blood pressure 127 mm[Hg] [facility] 02-10-2024 13:04-0400 Body height 167.64 cm [facility] 02-10-2024 13:04-0400 Body mass index (BMI) [Ratio] 38.5 kg/m2 [facility] 02-10-2024 13:04-0400 Body weight 108.4 kg [facility] 02-10-2024 13:04-0400 Diastolic blood pressure 73 mm[Hg] [facility] 02-10-2024 13:04-0400 Heart rate 85 /min [facility] 02-10-2024 13:04-0400 Systolic blood pressure 105 mm[Hg] [facility] 01-19-2024 08:44-0400 Body height 167.64 cm [facility] 12-30-2023 09:55-0500 Body height 167.64 cm [facility] 12-30-2023 09:55-0500 Body mass index (BMI) [Ratio] 38.9 kg/m2 [facility] 12-30-2023 09:55-0500 Body weight 109.31 kg [facility] 12-30-2023 09:55-0500 Diastolic blood pressure 76 mm[Hg] [facility] 12-30-2023 09:55-0500 Heart rate 69 /min [facility] 12-30-2023 09:55-0500 Systolic blood pressure 120 mm[Hg] [facility] 12-09-2023 10:32-0500 Diastolic blood pressure 80 mm[Hg] Iban Lu MD Work Phone: [facility] 12-09-2023 10:32-0500 Systolic blood pressure 130 mm[Hg] Iban Lu MD Work Phone: [facility] 12-09-2023 09:46-0500 Body height 167.6 cm Iban Lu MD Work Phone: [facility] 12-09-2023 09:46-0500 Body mass index (BMI) [Ratio] 39.06 kg/m2 Iban Lu MD Work Phone: [facility] 12-09-2023 09:46-0500 Body weight 109.77 kg Iban Lu MD Work Phone: [facility] 12-09-2023 09:46-0500 Heart rate 68 /min Iban Lu MD Work Phone: [facility] 08-20-2023 09:00-0400 Body height 167.64 cm Toby Quintana Other [employer] Other 08-20-2023 09:00-0400 Body mass index (BMI) [Ratio] 38.38 kg/m2 Toby Quintana Other [employer] Other 08-20-2023 09:00-0400 Body weight 107.87 kg Toby Quintana Other [employer] Other 08-20-2023 09:00-0400 Diastolic blood pressure 75 mm[Hg] Toby Quintana Other [employer] Other 08-20-2023 09:00-0400 Systolic blood pressure 108 mm[Hg] Toby Quintana Other [employer] Other 04-24-2023 11:15-0400 Body height 167.64 cm Toby Quintana Other [employer] Other 04-24-2023 11:15-0400 Body mass index (BMI) [Ratio] 38.73 kg/m2 Toby Quintana Other [employer] Other 04-24-2023 11:15-0400 Body weight 108.86 kg Toby Quintana Other [employer] Other 04-24-2023 11:15-0400 Diastolic blood pressure 79 mm[Hg] Toby Quintana Other [employer] Other 04-24-2023 11:15-0400 Systolic blood pressure 114 mm[Hg] Toby Quintana Other [employer] Other 02-07-2023 09:30-0400 Body height 167.64 cm Toby Quintana Other [employer] Other 02-07-2023 09:30-0400 Body mass index (BMI) [Ratio] 39.99 kg/m2 Toby Quintana Other [employer] Other 02-07-2023 09:30-0400 Body weight 112.4 kg Toby Quintana Other [employer] Other 02-07-2023 09:30-0400 Diastolic blood pressure 68 mm[Hg] Toby Quintana Other [place] [employer] Other 02-07-2023 09:30-0400 Respiratory rate 18 /min Toby Quintana Other [employer] Other 02-07-2023 09:30-0400 SaO2% (BldA) [Mass fraction] 93 % Toby Quintana Other [employer] Other 02-07-2023 09:30-0400 Systolic blood pressure 142 mm[Hg] Toby Quintana Other [employer] Other 01-08-2023 10:00-0500 Body height 167.64 cm Samuel Bismarck II Other [employer] Other 01-08-2023 10:00-0500 Body mass index (BMI) [Ratio] 40.19 kg/m2 Samuel Bismarck II Other [employer] Other 01-08-2023 10:00-0500 Body weight 112.95 kg Samuel Bismarck II Other [employer] Other 12-09-2022 13:25-0500 Body height 167.64 cm Toby Quintana Work Phone: [facility] 250 DO Work Phone: 12-09-2022 13:25-0500 Body mass index (BMI) [Ratio] 40.03 kg/m2 Toby Quintana Work Phone: [facility] 250 DO Work Phone: 12-09-2022 13:25-0500 Body surface area Derived from formula 2.19 m2 Toby Quintana Work Phone: [facility] 250 DO Work Phone: 12-09-2022 13:25-0500 Body weight 112.49 kg Toby Quintana Work Phone: [facility] 250 DO Work Phone: 12-09-2022 13:25-0500 Diastolic blood pressure 80 mm[Hg] Toby Quintana Work Phone: [facility] 250 DO Work Phone: 12-09-2022 13:25-0500 Heart rate 78 /min Toby Quintana Work Phone: [facility] 250 DO Work Phone: 12-09-2022 13:25-0500 Systolic blood pressure 118 mm[Hg] Toby Quintana Work Phone: [facility] 250 DO Work Phone: 11-22-2022 09:00-0500 Body height 167.64 cm Leeann Blades Other [employer] Other 11-22-2022 09:00-0500 Body mass index (BMI) [Ratio] 39.54 kg/m2 Leeann Blades Other [employer] Other 11-22-2022 09:00-0500 Body weight 111.13 kg Leeann Blades Other [employer] Other 09-04-2021 13:27-0400 Body height 170.18 cm Toby Quintana Work Phone: [facility] 250 DO Work Phone: 09-04-2021 13:27-0400 Body mass index (BMI) [Ratio] 39.78 kg/m2 Toby Quintana Work Phone: [facility] 250 DO Work Phone: 09-04-2021 13:27-0400 Body surface area Derived from formula 2.24 m2 Toby Quintana Work Phone: [facility] 250 DO Work Phone: 09-04-2021 13:27-0400 Body weight 115.21 kg Toby Quintana Work Phone: [facility] 250 DO Work Phone: 09-04-2021 13:27-0400 Diastolic blood pressure 78 mm[Hg] Toby Quintana Work Phone: [facility] 250 DO Work Phone: 09-04-2021 13:27-0400 Heart rate 80 /min Toby Quintana Work Phone: [facility] 250 DO Work Phone: 09-04-2021 13:27-0400 Systolic blood pressure 104 mm[Hg] Toby Quintana Work Phone: [facility] 250 DO Work Phone: Encounters Encounter Date Encounter Type Care Provider Facility Start: 08-12-2024 End: 08-12-2024 ambulatory [facility] Work Phone: Start: 08-12-2024 End: 08-12-2024 Patient encounter procedure [facility] Work Phone: Start: 04-30-2024 End: 04-30-2024 ambulatory [facility] Work Phone: Start: 04-30-2024 End: 04-30-2024 Patient encounter procedure [facility] Work Phone: Start: 03-22-2024 End: 03-22-2024 ambulatory [facility] Work Phone: Start: 03-22-2024 End: 03-22-2024 Patient encounter procedure [facility] Work Phone: Start: 02-10-2024 End: 02-10-2024 ambulatory [facility] Work Phone: Start: 02-10-2024 End: 02-10-2024 Patient encounter procedure [facility] Work Phone: Start: 01-19-2024 End: 01-19-2024 Patient encounter procedure [facility] Work Phone: Start: 01-14-2024 Non-patient / Non-visit [facility] Work Phone: Start: 01-05-2024 Non-patient / Non-visit [facility] Work Phone: Start: 12-30-2023 Patient encounter procedure [facility] Start: 12-30-2023 End: 12-30-2023 ambulatory [facility] Work Phone: Start: 12-30-2023 End: 12-30-2023 Patient encounter procedure [facility] Work Phone: Start: 12-19-2023 End: 12-19-2023 ambulatory Toby Quintana Other [employer] Other Start: 12-19-2023 Telephone encounter Toby Quintana [facility] Start: 12-17-2023 End: 12-17-2023 ambulatory Toby Quintana Other [employer] Other Start: 12-17-2023 Telephone encounter Toby Quintana [facility] Start: 12-16-2023 (Televisit) Televisit Toby Quintana [facility] Start: 12-16-2023 End: 12-16-2023 ambulatory Toby Quintana Other [employer] Other Start: 12-09-2023 End: 12-09-2023 Office outpatient visit 25 minutes Iban Lu MD Work Phone: [facility] Comment on above: Supraventricular tac hycardia by ECG (Primary Dx); Mixed hyperlipidemia; Palpitations; Class II obesity Start: 12-09-2023 End: 12-09-2023 ambulatory IBAN Ashton [facility] Start: 12-08-2023 End: 12-08-2023 ambulatory Toby Quintana Other [employer] Other Start: 12-08-2023 Telephone encounter Toby Quintana [facility] Start: 11-04-2023 End: 11-04-2023 ambulatory Toby Pat Other [employer] Other Start: 11-04-2023 Telephone encounter Toby Pat [facility] Start: 10-21-2023 (Televisit) Televisit Toby Quintana Kehinde [facility] Start: 10-21-2023 End: 10-21-2023 ambulatory Toby Quintana Other [employer] Other Start: 10-21-2023 End: 10-21-2023 Patient encounter procedure [facility] Work Phone: Start: 10-20-2023 End: 10-20-2023 ambulatory Toby Quintana Other [employer] Other Start: 10-20-2023 Telephone encounter Toby Pat [facility] Start: 09-25-2023 (Televisit) Televisit Toby Quintana Kehind[place] [facility] Start: 09-25-2023 End: 09-25-2023 ambulatory Toby Quintana Other [employer] Other Start: 09-22-2023 (Televisit) Televisit Toby Quintana [place] [facility] Start: 09-22-2023 End: 09-22-2023 ambulatory Toby Quintana Other [employer] Other Start: 09-22-2023 Telephone encounter Toby Quintana [facility] Start: 08-20-2023 End: 08-20-2023 ambulatory Toby Quintana Other [employer] Other Start: 08-20-2023 Patient encounter procedure Toby Quintana [facility] Start: 05-22-2023 Telephone encounter Toby eugene Work Phone: [facility] 600 DO Work Phone: Start: 05-12-2023 End: 05-12-2023 ambulatory Toby Quintana Other [employer] Other Start: 05-12-2023 Telephone encounter Toby Quintana [facility] Start: 04-24-2023 End: 04-24-2023 ambulatory Toby Quintana Other [employer] Other Start: 04-24-2023 Office outpatient vi sit 15 minutes Toby Quintana [facility] Start: 04-11-2023 End: 04-11-2023 ambulatory Toby Quintana Other [employer] Other Start: 04-11-2023 Telephone encounter Toby Quintana [facility] Start: 03-13-2023 End: 03-13-[address] EVIN BYERS Facility:UNKNOWN Start: 03-13-[address] Toby Quintana Facility:[id number] Start: 02-07-2023 End: 02-07-2023 ambulatory Toby Quintana Other [employer] Other Start: 02-07-2023 Patient encounter procedure Toby Quintana [facility] Start: 02-03-2023 End: 02-03-2023 ambulatory Leeann Blades Other [employer] Other Start: 02-03-2023 Telephone encounter Leeann Blades [facility] [employer] Start: 01-27-2023 End: 01-27-2023 ambulatory Leeann Blades Other [employer] Other Start: 01-27-2023 Telephone encounter Leeann Blades [facility] Start: 01-21-[address] TOBY QUINTANA [facility] ity:H1 Start: 01-16-2023 End: 01-16-2023 ambulatory Samuel Guajardoisle II Other [employer] Other Start: 01-16-2023 Telephone encounter Samuel Chatman II [facility] [employer] Start: 01-08-2023 FQHC visit new patient Samuel Goodman nayeli II [facility] Start: 01-08-2023 End: 01-08-2023 ambulatory Samuel Chatman II Facility:[facility] Start: 01-08-2023 End: 01-08-2023 ambulatory MD Toby Quintana Work Phone: [facility] Work Phone: Start: 01-08-2023 End: 01-08-2023 Patient encounter procedure MD Toby Quintana Work Phone: [facility] Start: 01-02-2023 End: 01-02-2023 ambulatory Toby Quintana Other [employer] Other Start: 01-02-2023 Telephone encounter Leeann Blades [facility] Start: 12-30-2022 End: 12-30-2022 ambulatory Leeann Blades Other [employer] Other Start: 12-30-2022 Telephone encounter Leeann Blades [facility] Start: 12-26-2022 End: 12-26-2022 ambulatory Leeann Blades Other [facility] [employer] Other Start: 12-26-2022 Telephone encounter Leeann Blades [facility] Start: 12-19-2022 End: 12-19-2022 ambulatory Leeann Blades Other [facility] [employer] Other Start: 12-19-2022 Telephone encounter Leeann Blades [facility] Start: 12-17-2022 End: 12-17-2022 ambulatory Toby Quintana Other [facility] [employer] Other Start: 12-17-2022 Telephone encounter Toby Quintana [facility] Start: 12-10-2022 End: 12-10-2022 ambulatory Toby Quintana Other [facility] [employer] Other Start: 12-10-2022 Telephone encounter Toby Quintana [facility] Start: 12-09-2022 Office outpatient vi sit 25 minutes Toby Quintana Work Phone: [facility] 250 DO Work Phone: Start: 12-09-[address] Iban Lu Facility: Start: 11-25-2022 End: 11-25-2022 ambulatory Leeann Blades Other [facility] [employer] Other Start: 11-25-2022 Telephone encounter Leeann Blades [facility] [employer] Start: 11-22-2022 Office outpatient ne w 45 minutes Leeann Blades [facility] Start: 11-22-2022 End: 11-22-2022 ambulatory Leeann Blades Facility:[facility] Start: 11-22-2022 End: 11-22-2022 ambulatory MD Toby Quintana Work Phone: [facility] Work Phone: Start: 11-22-2022 End: 11-22-2022 Patient encounter procedure MD Toby Quintana Work Phone: [facility] Work Phone: Start: 11-05-2022 Adult health examination Nannette Quintana Other [facility] [employer] Other Start: 11-05-2022 Pre-procedure evalua tion check Toby Quintana Other [facility] [employer] Other Start: 10-04-2022 End: 10-05-[address] SHALA OMER Facility:[facility]1 Start: 09-16-2022 Rx Renewal Toby Quintana Work Phone: [facility] 250 DO Work Phone: Start: 07-24-2022 End: 07-24-[address] TOBY QUINTANA Facility:[facility]1 Start: 07-22-2022 End: 07-22-[address] LAUREL BRAVO Facility:[facility]1 Start: 04-18-2022 Encounter for genera l adult medical examination without abnormal findings DR TOBY QUINTANA [facility] Start: 04-13-2022 End: 04-14-[address] TOBY QUINTANA Facility:[facility]1 Start: 04-12-2022 End: 04-13-[address] TOBY QUINTANA Facility:[facility]1 Start: 04-12-2022 End: 04-13-2022 Encounter for general adult medical examination without abnormal findings DR TOBY QUINTANA Facility:[facility]1 Start: 09-04-2021 FUV, Provider: Iban Lu, Status: Pen, Time: 2:00 PM Toby Quintana Work Phone: [facility] [address] [place] Work Phone: Start: 09-04-2021 Office outpatient vi sit 25 minutes Toby Quintana Work Phone: [facility] 250 DO Work Phone: Start: 08-30-2021 Rx Renewal Toby Quintana Work Phone: [facility] [place] Work Phone: Procedures Date Procedure [...] procedure 12/09/2024 9:00 AM EST Office Visit [facility] [address] [address] Iban Lu MD [address] [facility] [address] [address] [facility] Start: 04-30-2024 Patient referral [facility] Work Phone: Start: 03-22-2024 Patient referral [facility] Work Phone: Start: 01-19-2024 Patient referral [facility] Work Phone: Start: 12-09-2023 End: 12-09-2024 Basic metabolic 2000 panel - Serum or Plasma Basic Metabolic Panel Lab Routine Supraventricular tachycardia by ECG Palpitations Expected: 12/09/2023 (Approximate), Expires: 12/09/2024 [facility] Service [facility] Work Phone: Comment on above: Expected: 12/09/2023 (Approximate), Expires: 12/09/2024 Start: 12-09-2023 FUV, Provider: Iban Lu, Status: Pen, Time: 10:00 AM FUV, Provider: Iban Lu, Status: Pen, Time: 10:00 [facility] Work Phone: Start: 07-11-2023 COVID-19 Vaccine ( season) COVID-19 Vaccine ( season) [facility] Start: 07-11-2023 Influenza vaccination Influenza Vacc ine (#1) [facility] Start: 09-20-2022 FUV, Provider: Iban Lu, Status: Pen, Time: 2:20 PM FUV, Provider: Iban Lu, Status: Pen, Time: 2:20 PM [facility] 250 DO Work Phone: Start: 09-05-2022 FUV, Provider: Iban Lu, Status: Pen, Time: 11:20 AM FUV, Provider: Iban Lu, Status: Pen, Time: 11:20 AM [facility] Work Phone: Start: 01-19-2006 Zoster Vaccines (1 o f 2) Zoster Vaccines (1 of 2) [facility] Start: 1996 Screening for malign ant neoplasm of breast Mammogram [facility] Start: 01-19-1978 DTaP/Tdap/Td Vaccine s (1 - Tdap) DTaP/Tdap/Td Vaccines (1 - Tdap) [facility] Start: 01-19-1974 [facility] Start: 01-19-1962 Pneumococcal Vaccine : 65+ Years (1 - PCV) Pneumococcal Vaccine: 65+ Years (1 - PCV) [facility] Start: 1956 Lipid panel Lipid Panel [facility] Start: 1955 Medicare Annual Wellness Visit Medicare Annual Wellness Visit (AWV) [facility] Start: 1955 Screening for malign ant neoplasm of colon [facility] Start: 1955 Screening for osteoporosis Bone Density Scan [facility] Comprehensive metabo lic 2000 panel - Serum or Plasma [facility] Patient referral [facility] Work Phone: [place] Lower extremity v ein - bilateral [facility] Immunizations Immunization Date Immunization Notes Care Provider Fa cility 09-06-2022 Pfizer COVID-19 Vac Bivalent 30 MCG/0.3ML Intramuscular Suspension Toby Quintana Work Phone: [facility] 250 DO Work Phone: 07-02-2021 Pfizer-BioNTech COVI D-19 Vacc 30 MCG/0.3ML Intramuscular Suspension Toby Quintana Work Phone: [facility] Comment on above: Series: 06-11-2021 Pfizer-BioNTech COVI D-19 Vacc 30 MCG/0.3ML Intramuscular Suspension Toby Quintana Work Phone: [facility] Comment on above: Series: 09-12-2014 tetanus and diphther ia toxoids, adsorbed, preservative free, for adult use (5 Lf of tetanus toxoid and 2 Lf of diphtheria toxoid) Toby Quintana Other [facility] 09-15-2013 tetanus and diphther ia toxoids, adsorbed, preservative free, for adult use (5 Lf of tetanus toxoid and 2 Lf of diphtheria toxoid) Toby Quintana Other [facility] 09-14-2013 influenza, seasonal, injectable Toby Quintana Work Phone: [facility] 09-14-2013 influenza virus vacc ine, unspecified formulation Iban Lu MD Work Phone: [facility] Work Phone: 08-10-2013 influenza virus vacc ine, unspecified formulation Toby Quintana Work Phone: [facility] 250 DO Work Phone: 07-19-2012 influenza virus vacc ine, unspecified formulation Toby Schofield Quintana Work Phone: [facility] 250 DO Work Phone: 11-10-2009 influenza virus vacc ine, unspecified formulation Toby Schofield Quintana Work Phone: [facility] 250 DO Work Phone: 08-10-2009 influenza virus vacc ine, unspecified formulation Toby Schofield Quintana Work Phone: [facility] 250 DO Work Phone: 07-14-2007 pneumococcal polysaccharide vaccine, 23 valent Toby Quintana Other [facility] Payers Date Payer Category Payer Medicare [employer] MEDICARE A ETNA MEDICARE VALUE PLAN [id number] 2023-Present [address] [place] [address] [id number] 2023 Medicare [id number] 2022 Self-pay [id number] 1959 Unknown [id number] 1959 Unknown [id number] [id number] 1956 Unknown [id number] 1956 Unknown [id number] 1956 Unknown [id number] 1956 Unknown [id number] 1956 Unknown [id number] 1956 Unknown [id number] 1956 Unknown [id number] 1956 Unknown [id number] 1956 Unknown [id number] 1956 Unknown [id number] Unknown Unknown HCAP/HFA/FAP Active [id number] Unknown [id number] Unknown [id number] Social History Date Type Detail Facility Start: 12-09-2023 No illicit drug use No illicit drug use [address] Work Phone: Comment on above: Coffee 1 cup daily; quit 1987; Start: 1955 Sex Assigned At Female F [facility] Start: 12-09-2023 Sex Assigned At N [facility] [employer] Other Start: 12-09-2023 Tobacco smoking status NHIS Ex-smoker [facility] Work Phone: History of tobacco use Current smoker [facility] Work Phone: History of tobacco use Cigarette Smoker [facility] Work Phone: Start: 12-09-2023 Tobacco use and exposure Smokeless tobacco non-user [facility] Work Phone: Start: 12-09-2023 Alcohol intake Lifetime non-d mary (finding) [facility] Work Phone: Start: 1955 [facility]: Start: 11-29-2023 End: 12-09-2023 Exposure to SARS-CoV-2 (event) Not sure [facility] Clinical Notes 11-22-2022 to 03-22-2024 Note Date & Type Note Facility 03-22-2024 Hospital Discharg e instructions Ambulatory OrdersReferral to Orthopedics Time Frame: 03/22/24, Location: None [facility] Work Phone: 12-17-2023 Evaluation note Encounter Date Diagnosis Assessment Notes Dec, Jaw swelling (ICD-10 - R22.0) [employer] Other 02-06-2024 Evaluation note* Encounter Date Diagnosis Assessment Notes Treatment Notes Treatment Clinical Notes Dec, Dental infection (ICD-10 - K04.7) Pt will contact her insurance, find a different dentist. Will continue antibiotic at this time. [facility] Other 01-30-2024 History of Present illness Narrative* [...] follow-up will be scheduled Iban Lu MD, [facility] Review of Systems Cardiovascular: Positive for palpitations. [...] EVENING, Disp: 225 tablet, Rfl: 0 omega 8-sbb-wnf-fish oil 360 mg-108 mg- 180 mg-1,200 mg [...] of Iban Lu MD. [facility] Work Phone: [phone] 195-241601-30-2024 Instructions* Patient Instructions* Nataliya Manning LPN - [...] Follow up one year [facility] Work Phone: [phone] Evaluation note* Encounter Date Diagnosis Assessment Notes Treatment Notes Treatment Clinical Notes Oct, Open fracture of tooth, initial encounter (ICD-10 - S02.5XXB) Keep area clean, brush and rinse frequently. seeing dentist next week. Oct, Lumbar radiculitis (ICD-10 - M54.16) pt requests refill for her chronic back issues. We discussed her treatment plan w Dr. Byers. [facility] Other 11-16-2023 Evaluation note* Encounter Date Diagnosis Assessment Notes Treatment Notes Treatment Clinical Notes Sep, Lumbar radiculitis (ICD-10 - M54.16) CHanged pain med. Jax will call Dr. Byers's office for a change in treatment plan and an appt. Sep, Nausea & vomiting (ICD-10 - R11.2) States that zofran has not helped in the past - phenergan sent in for short term use. [facility] Other 11-13-2023 Evaluation note* Encounter Date Diagnosis Assessment Notes Treatment Notes Treatment Clinical Notes Sep, Radiculopathy, lumbar region (ICD-10 - M54.16) My staff reviewed her case with Dr. Byers's staff. She is to call their office for follow-up appointment next month. Patient does not want another injection and would rather have an ablation. Trial of tramadol sent to pharmacy. OARRS reviewed. [facility] Other 10-11-2023 Evaluation note* Encounter Date Diagnosis Assessment Notes Treatment Notes Treatment Clinical Notes Aug, Pain in right knee (ICD-10 - M25.561) Aug, Other chronic pain (ICD-10 - G89.29) Aug, Pain in left knee (ICD-10 - M25.562) [facility] Other 03-31-2023 Evaluation note* Encounter Date Diagnosis Assessment Notes Treatment Notes Treatment Clinical Notes Jan, Nausea & vomiting (ICD-10 - R11.2) Jan, Pain in right knee (ICD-10 - M25.561) Jan, Other chronic pain (ICD-10 - G89.29) Jan, Pain in left knee (ICD-10 - M25.562) [facility] Other 03-31-2023 Evaluation note* Encounter Date Diagnosis Assessment Notes Treatment Notes Treatment Clinical Notes Jan, Nausea & vomiting (ICD-10 - R11.2) chronic problem - requesting refill on Zofran Jan, Pain in right knee (ICD-10 - M25.561) Jan, Other chronic pain (ICD-10 - G89.29) Jan, Pain in left knee (ICD-10 - M25.562) [facility] Other 03-01-2023 Evaluation note* Encounter Date Diagnosis [...] She would prefer to stay close to [place]. Our office is working to get her referral to pain management near [place]. [facility] Other 01-31-2023 Evaluation note* Encounter Date Diagnosis Assessment Notes Treatment Notes Treatment Clinical Notes Nov, Lumbar pain (ICD-10 - M54.50) [facility] Other 01-13-2023 Evaluation note* Encounter Date Diagnosis Assessment Notes Treatment Notes Treatment Clinical Notes Nov, Low back pain, unspecified back pain laterality, unspecified chronicity, unspecified whether sciatica present (ICD-10 - M54.50) [employer] Other evalutfnnk noteNo assessment information available [facility] Work Phone: Evaluation noteNo InformationNort [employer] Other evaluation noteNoSandag Other Evaluation note* Diagnosis Supraventricular tachycardia by ECG- Primary Mixed hyperlipidemia Palpitations Class II obesity documented in this encounter [facility] Work Phone: Evaluation note* Diagnosis Onset Date Resolution Status Fatigue acute Hyperlipidemia acute Lumbar radiculopathy, chronic acute Medicare annual wellness visit, subsequent acute SVT (supraventricular tachycardia) acute [facility] Work Phone: Evaluation note* Diagnosis Onset Date Resolution Status Fatigue acute Hyperlipidemia acute Lumbar radiculopathy, chronic acute Medicare annual wellness visit, subsequent acute SVT (supraventricular tachycardia) acute Lumbar radiculopathy, chronic acute [facility] Work Phone: Evaluation note* Diagnosis Onset Date Resolution Status Fatigue acute Hyperlipidemia acute Lumbar radiculopathy, chronic acute Medicare annual wellness visit, subsequent acute SVT (supraventricular tachycardia) acute Lumbar radiculopathy, chronic acute Left knee pain acute Lumbar radiculopathy, chronic acute Right knee pain acute Left knee pain acute Right knee pain acute [facility] Work Phone: Evaluation note* Diagnosis Onset Date Resolution Status Left knee pain acute Lumbar radiculopathy, chronic acute Right knee pain acute Bilateral cold feet acute Left knee pain acute Right knee pain acute Bilateral lower extremity pain acute Diminished pulses in lower extremity acute PAD (peripheral artery disease) acute [facility] Work Phone: History general Narrative - [...] childbirth Hospitalization History hysterectomy Hospitalization History pancreatitis [facility] [employer] Other History [facility] Discharge instructionsAmbulatory Orders* Referral to Vascular Surgery Time Frame: 04/30/24, Location: None [facility] Work Phone: Reason for referral (narrative)* Consultation (Routine) - Authorized Specialty Diagnoses / Procedures Referred By Contac t Referred To Contact Cardiology Diagnoses Supraventricular tachycardia by ECG Procedures Follow Up In Cardiology Iban Lu MD [address] [facility], [address] [address] Iban Lu MD [address] [facility], [facility] [address] [place] [address] Referral ID Status Reason Start Date Expiration Date V isits Requested Visits Authorized [id number] Authorized 12/09/2023 12/08/2024 1 1 [facility] Work Phone: Reason for visit NarrativePain Medicine [facility] [employer] Other Summary Purpose Family History Unknown Family [...] member Unknown grandparent Unknown Not Specified Unknown Relationship Condition Age at Onset Recorded Date/T harris brother Malignant neoplasm Unknown father Unknown family member Unknown grandparent Unknown mother Unknown Advance Directives Advance Directive Response Recorded [...] and provided the patient with 2 local natural resource 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 * ASSESSMENT AND PLAN: [...] will be scheduled * Iban Lu MD, [facility] Chief Complaint and Reason for Visit Chief Complaint xray Chief Complaint Swollen Face, [place]- [phone] Medicare Wellness Reason for Visit Fatigue Hyperlipidemia Lumbar radiculopathy, chronic Medicare annual wellness visit, subsequent SVT (supraventricular tachycardia) Chief Complaint Medicare Wellness Amb Documentation pulled [phone] knee injections Reason for Visit Fatigue Hyperlipidemia Lumbar radiculopathy, chronic Medicare annual wellness visit, subsequent SVT (supraventricular tachycardia) Lumbar radiculopathy, chronic Chief Complaint Medicare Wellness Amb Documentation pulled [phone] knee injections leg swelling - hot cold Reason for Visit Fatigue Hyperlipidemia Lumbar radiculopathy, chronic Medicare annual wellness visit, subsequent SVT (supraventricular tachycardia) Lumbar radiculopathy, chronic Left knee pain Lumbar radiculopathy, chronic Right knee pain Left knee pain Right knee pain Chief Complaint knee injections leg swelling - hot cold edema Reason for Visit Left knee pain Lumbar radiculopathy, chronic Right knee pain Bilateral cold feet Left knee pain Right knee pain Bilateral lower extremity pain Diminished pulses in lower extremity PAD (peripheral artery disease) Chief Complaint Discuss Pain Meds Reason for Referral Reason 01/21/23 Evaluate and Treat Chronic Pain Diagnosis 1 Chronic pain disorde r (G89.4) Diagnosis 2 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) Diagnosis 3 Other chronic pain ( G89.29) Diagnosis 4 Low back pain, unspe cified (M54.50) [facility] Referring Provider First Name [facility] Referring Provider Last Name Blades Referring Provider Specialty Neurologica l Surgery Referred Organization [facility] Referred Provider Albertina Oconnell Referred Address [address] [place], [place],[address] Referred Provider Specialty Pain Medicin e Referral Priority Routine Referral Appointment Date 2023-01-21 General Notes [facility] 023 09:03:40 AM >Received today and waiting for office notes to be locked before sending referral [facility] 01/01/2023 07:37:06 AM >Referral was fax [facility] 01/08/2023 09:26:41 AM >Referral was refax to the correct office with their form Trini Suazo 01/08/2023 02:11:33 PM >received letter, pt has appt scheduled for 01/21/2023 Clinical Notes Phone: Reason 01/08/23 @ 10:00am Evaluate and Treat Hip Pain Diagnosis 1 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 Referred Provider Samuel Chatman II Referred Address [address],[place],[address] Referred Provider Specialty Orthopaedic Surgery Referral Priority Routine Referral Appointment Date 2023-01-08 General Notes [facility] 023 10:20:34 AM >Received today and sent P2P [facility] 01/01/2023 12:05:35 PM >Patient was scheduled [facility] 01/15/2023 09:30:10 AM >Office notes not locked yet [facility] 01/16/2023 08:43:03 AM >Sent telephone encounter to referring physician to let them know that the consult letter is ready for their review Reason DECLINED lumbar an d knee pain Diagnosis 1 Lumbar pain (M54.50) Referral Organization [facility] Referring Provider First Name Toby Referring Provider Last Name Pat Referring Provider Specialty Family [facility] Referred Organization [facility] Referred Provider Paddy De Los Santos Referred Address [address] Lynette Michael,[place],[address] Referred Provider Specialty Rheumatology Referral Priority Routine General Notes MonychunKathryn 02:32:15 PM >received today, notes attached, along with multiple testing attached, insurance card attached, referral faxed Kathryn Crenshaw 12/17/2022 09:06:39 AM >faxed first attempt letter Kathryn Crenshaw 12/18/2022 03:11:43 PM >awaiting doctor approval to schedule ValdochemaKathryn mccollum 12/24/2022 10:56:11 AM >faxed second attempt letter Kathryn Crenshaw 12/25/2022 01:26:57 PM >received fax that pt can not be scheduled, will follow up with patient Den Kathryn 12/26/2022 01:22:19 PM >called patient to see if she wanted to be referred elsewhere, left detailed message. will follow up ValdohannahKathryn 01/02/2023 02:05:36 PM >per patient she never wanted this referral. TE sent for review. Closing referral Clinical Notes Dr. Dixon [facility]? Additional Source Comments INFORMATION SOURCE (unrecogn ized section and content) DATE CREATED AUTHOR 09/23/2019 [facility] DATE CREATED AUTHOR AUTHOR'S ORGANIZ ATION 11/04/2019 [facility] DATE CREATED AUTHOR AUTHOR'S ORGANIZ ATION 05/31/2020 [facility] DATE CREATED AUTHOR AUTHOR'S ORGANIZ ATION 12/06/2020 [facility] DATE CREATED AUTHOR AUTHOR'S ORGANIZ ATION 04/21/2021 [facility] DATE CREATED AUTHOR AUTHOR'S ORGANIZ ATION 12/10/2022 [facility] DATE CREATED AUTHOR AUTHOR'S ORGANIZ ATION 01/10/2023 [facility] DATE CREATED AUTHOR AUTHOR'S ORGANIZ ATION 01/17/2023 [facility] DATE CREATED AUTHOR AUTHOR'S ORGANIZ ATION 03/18/2023 [facility] DATE CREATED AUTHOR AUTHOR'S ORGANIZ ATION 06/09/2023 [facility] DATE CREATED AUTHOR AUTHOR'S ORGANIZ ATION 07/08/2024 [facility] [employer] Teams (unrecognized sec tion and content) Team Status: Inactive Member Role Status Dates Toby Quintana MD Primary Care Provider Active Leeann Quintana Attending Provider Active Team Status: Active Member Role Status Dates Toby Quintana MD Primary Care Provider Active Team Status: Inactive Member Role Status Dates Toby Quintana MD Primary Care Provider Active Samuel Chatman II, MD Attending Provider Active It Architect Relationship Specialty Start Date End Date Toby [...] March 22, 2024 End: March 22, 2024 Team Status: Inactive Member Role Status Dates Toby Quintana MD Primary Care Provide r, Attending Provider Active Start: April 30, 2024 End: April 30, 2024 Team Status: Inactive Member Role Status Dates Toby Quintana MD Primary Care Provide r, Attending Provider Active Start: August 12, 2024 End: August 12, 2024 Goals (unrecognized section and content) Goals [...] BE BASED ON THE PRIMARY CLINICAL RECORDS. [facility] [employer] [facility]. provides no warranty or guarantee of the accuracy or completeness of information in this document.
[2024-09-06] MEDS: 0.9 % SODIUM CHLORIDE 500 ML IV (09:42)
[2024-09-06] MEDS: ONDANSETRON PF 4 MG/2 ML VIAL IV ×2 (09:44→14:35)
[2024-09-06] MEDS: OXYCODONE HCL/ACETAMINOPHEN 5MG/325MG 1 TAB PO (09:45)
[2024-09-06] MEDS: FAMOTIDINE/PF 20 MG/2 ML VIAL IV (09:47)
[2024-09-06 09:53] LABS: Alanine Aminotransferase 27 U/L (14-59); Albumin Globulin Ratio 0.8; Alkaline Phosphatase 105 U/L (46-116); Anion Gap 13.1; Aspartate Amino Transferase 40 U/L (15-37); BUN Creatinine Ratio 11.1; Bilirubin Total 0.7 mg/dL (0.2-1.0); Calcium 9.4 mg/dL (8.5-10.1); Carbon Dioxide 28.1 mmol/L (21.0-32.0); Chloride 108 mmol/L (98-107); Estimated GFR (African America >60 (>=60 mL/min/1.73m^2); Estimated GFR (Non-African Ame >60 (>=60 mL/min/1.73m^2); Globulin 3.7 g/dL; Glucose 96 mg/dL (74-106); Potassium 4.2 mmol/L (3.5-5.1); Sodium 145 mmol/L (136-145); Total Protein 6.7 g/dL (6.4-8.2)
[2024-09-06 09:55] LABS: Creatine Kinase 37 U/L (26-192)
--- NOTE | 2024-09-06 10:20 | XR_ITS ---
The [address] [address] Patient Name: INDERJIT MANN MRN: [id number] date: 1955 Sex: F Assigned Patient Location: ER Current Patient Location: ER Accession/Order Number: [id number] Exam Date: 09/06/2024 10:35 Report Date: 09/06/2024 10:59 At the request of: LISA MOISE Procedure: XR chest 1V EXAMINATION: XR chest 1V HISTORY: low oxygen COMPARISON: No relevant comparison available. TECHNIQUE: AP portable FINDINGS: LUNGS: No significant pulmonary parenchymal abnormalities. VASCULATURE: No increased pulmonary vasculature. PLEURA: No pneumothorax, effusion, or pleural thickening. CARDIAC: No cardiomegaly or cardiac silhouette abnormality. MEDIASTINUM: No visible mass or adenopathy. BONES: No fracture or visible bone lesion. OTHER: Negative. XR/XR chest 1V IMPRESSION: No acute radiographic abnormality Electronically authenticated by: CAITLYN CABRERA Date: 09/06/2024 10:59
[2024-09-06] MEDS: MECLIZINE HCL 12.5 MG TABLET 25 MG PO (12:15)
--- OUTSIDE RECORDS SUMMARY | 2024-09-06 13:56 | XMS_ITS | CCD ---
Author Organization [facility] Care Team Providers Care Sr. Operations Manager Name Role Phone Toby Quintana Unavailable Unavailable Unavailable MD Toby Quintana Primary Care Provider BladesLeeann Attending Provider [phone] Unavailable Unavailable Blades, Leeann Unavailable KAN, DR [...] Unavailable QUINTANA, DR TOBY Schofield Admitting Unavailable MOORESVILLE, DR CAITLYN Noe Consulting Unavailable QUINTANA, DR TOBY Schofield Attending Unavailable QUINTANA, DR TOBY Schofield Primary Care Unavailable QUINATNA, DR TOBY Schofield Consulting Unavailable REINECK, DR [...] Unavailable MD Samuel Chatman II Attending Provider [phone] Blades, Leeann Admitting Unavailable Blades, Leeann Attending [...] Sulfamethoxazole; Translations: [sulfa] Drug Allergy Rash, Swelling [address] Work Phone: (10 sources) Sulfonamides (Antibiotic); Translations: [Sulfa (Sulfonamide Antibiotics)] Allergy to substance 04-08-20 19 Hives, Rash, Swelling [facility] (20 sources) Sulfacetamide / Sulfur Drug Allergy rash [employer] [facility] [employer] Other (1 source) Morphine Drug Allergy [facility] (1 source) Quinolones (Antibiotic) Drug allergy (disorder) [facility] (2 sources) Sulfonamides (Antibiotic) Drug allergy (disorder) 08-06-20 13 [facility] (12 sources) Acetaminophen / oxyCODONE Drug Allergy 07-28-20 13 Unknown [employer] Other (12 sources) Meperidine Drug Allergy 07-28-20 13 Unknown [employer] Other (13 sources) Quinolones Drug allergy 07-28-20 13 Comment:Fluorq rennolones [employer] Other (13 sources) sulfADIAZINE Drug Allergy Unknown [employer] Other (13 sources) Substance with sulfonamide structure and antibacterial mechanism of action (substance) Drug allergy 07-28-20 13 Unknown [employer] Other (13 sources) Statins Depletion *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 Propensity to adverse reactions 07-28-20 13 Unknown [employer] Other (4 sources) Allergies Reconciled Propensity to adverse reactions Unknown [employer] Other (4 sources) patient allergy list reviewed by nurse or physicia Propensity to adverse reactions 07-15-20 Comment:Done [employer] Other (1 source) Acetaminophen / oxyCODONE Drug Allergy 07-28-20 13 Unknown [employer] Other (1 source) Meperidine Drug Allergy 07-28-20 13 Unknown [employer] Other (5 sources) Sulfacetamide Drug Allergy 12-30-19 24 [facility] Medications Current Medications Medication Drug Class(es) Dates Sig (Normalized) Sig (Original) acetaminophen 325 mg / HYDROcodone bitartrate 5 mg oral tablet (20 sources) Opioid Agonist Start: 08-31-2021 End: 12-09-2023 take 1 tablet by mouth every four hours as needed HYDROcodone-acetami nophen ([place]) 5-325 mg tablet Take 1 tablet by [...] puffs Inhalation Twice a day Active omega 3-onu-kdf-fish oil 360 mg-108 mg- 180 mg-1,200 mg capsule (1 source) take 1 capsule by mouth once daily omega 4-unz-pwp-fish oil 360 mg-108 mg- 180 mg-1,200 mg [...] Sep, Active take 1 capsule by mo [facility] every six hours as needed [...] Other [facility] (current) drug therapy; 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] Onset: 07-23-2022 Episodic [...] aPTT Coag (PPP) [Time] 23.5 s 22.3-36.2 [facility] Basophils Auto (Bld) [#/Vol] on 01-14-2024 Basophils (Bld) [#/Vol] 0.1 10 3/uL 0.0-0.1 [facility] Basophils/100 WBC Auto (Bld) on 01-14-2024 Basophils/100 WBC (Bld) 0.5 % 0.2-2.0 [facility] Eosinophils/100 WBC Auto (Bl d)on 01-14-2024 Eosinophils/100 WBC (Bld) 1.3 % 0.9-7.0 [facility] Erythrocyte distribution wid th Auto (RBC) [Ratio]on 01-14-2024 Erythrocyte distribution width (RBC) [Ratio] 13.6 % 11.0-15.0 [facility] Estimated glomerular filtrat ion rate (GFR) non- Americanon 01-14-2024 GFR/1.73 sq M.predicted among non-blacks MDRD (S/P/Bld) [Vol rate/Area] mL/min/{1.73_m2} >=60 [facility] Fibrin D-dimer [Presence] in Platelet poor plasma by Latex agglutinationon 01-14-2024 Fibrin D-dimer LA Ql (PPP) 0.78 mg/L FEU <=0.59 [facility] Comment on above: RESULTS CALLED TO [...] on 01-14-2024 Globulin (S) [Mass/Vol] 3.9 g/dL [facility] Hematocrit Auto (Bld) [Volum e fraction]on 01-14-2024 Hematocrit (Bld) [Volume fraction] 44.4 % 36.0-48.0 [facility] Hemoglobin [Mass/volume] in Bloodon 01-14-2024 Hemoglobin (Bld) [Mass/Vol] 14.1 g/dL 12.0-16.0 [facility] INR in Platelet poor plasma by Coagulation assayon 01-14-2024 INR Coag (PPP) [Relative time] {INR} [facility] Comment on above: DESIRED INR:2.0-3.0 CONDITIONS NOT LISTED BELOW2.5-3.5 FOR PROSTHETIC HEART VALVE REPLACEMENT2.5-3.5 RECURRENT THROMBOSIS Laboratory - Chemistry and C hemistry - challengeon 01-14-2024 Albumin [Mass/Vol] 2.9 g/dL 3.4-5.0 [facility] ALP [Catalytic activity/Vol] 126 U/L 46-116 [facility] ALT [Catalytic activity/Vol] 36 U/L 14-59 [facility] AST [Catalytic activity/Vol] 24 U/L 15-37 [facility] Bilirubin [Mass/Vol] 0.4 mg/dL 0.2-1.0 [facility] Calcium [Mass/Vol] 8.7 mg/dL 8.5-10.1 [facility] Chloride [Moles/Vol] 109 mmol/L 98-107 [facility] CO2 [Moles/Vol] 30.5 mmol/L 21.0-32.0 [facility] Creatinine [Mass/Vol] 0.77 mg/dL 0.55-1.02 [facility] GFR/1.73 sq M.predicted MDRD (S/P/Bld) [Vol rate/Area] mL/min/{1.73_m2} >=60 [facility] Glucose [Mass/Vol] 108 mg/dL 74-106 [facility] Natriuretic peptide B (Bld) [Mass/Vol] 210.0 pg/mL <=900.0 [facility] Potassium [Moles/Vol] 4.0 mmol/L 3.5-5.1 [facility] Protein [Mass/Vol] 6.8 g/dL 6.4-8.2 [facility] Sodium [Moles/Vol] 141 mmol/L 136-145 [facility] Urea nitrogen [Mass/Vol] 10.0 mg/dL 7.0-18.0 [facility] Urea nitrogen/Creatinine [Mass ratio] 13.0 mg/mg [facility] Laboratory - Hematology and Cell countson 01-14-2024 Immature granulocytes/100 WBC (Bld) 0.3 % 0.0-0.5 [facility] Laboratory - Microbiology an d Antimicrobial susceptibilityon 01-14-2024 SARS-CoV-2 (COVID-19) RNA DAVID+probe Ql (Unsp spec) Negative NEGATIVE [facility] Comment on above: This test has [...] Auto (Bld) [#/Vol] 9.2 10 3/uL 4.0-11.0 [facility] Lymphocytes Auto (Bld) [#/Vo l]on 01-14-2024 Lymphocytes (Bld) [#/Vol] 1.9 10 3/uL 1.2-3.8 [facility] Lymphocytes/100 WBC Auto (Bl d)on 01-14-2024 Lymphocytes/100 WBC (Bld) 20.3 % 20.5-60.0 [facility] MCH Auto (RBC) [Entitic mass ]on 01-14-2024 MCH (RBC) [Entitic mass] 28.4 pg 26.7-34.0 [facility] MCHC Auto (RBC) [Mass/Vol]on 01-14-2024 MCHC (RBC) [Mass/Vol] 31.8 g/dL 29.9-35.2 [facility] MCV Auto (RBC) [Entitic vol] on 01-14-2024 MCV (RBC) [Entitic vol] 89.5 fL 81.0-99.0 [facility] Monocytes Auto (Bld) [#/Vol] on 01-14-2024 Monocytes (Bld) [#/Vol] 0.8 10 3/uL 0.3-0.8 [facility] Monocytes/100 WBC Auto (Bld) on 01-14-2024 Monocytes/100 WBC (Bld) 8.5 % 1.7-12.0 [facility] Neutrophils Auto (Bld) [#/Vo l]on 01-14-2024 Neutrophils (Bld) [#/Vol] 6.3 10 3/uL 1.4-6.5 [facility] Neutrophils/100 WBC Auto (Bl d)on 01-14-2024 Neutrophils/100 WBC (Bld) 69.1 % 43.0-75.0 [facility] No Panel Informationon 01-13 Troponin I High Sensitivity 6.8 pg/mL 4.0-51.3 [facility] Comment on above: CUT-OFF POINTS HAVE [...] INFORMATION. Bedside Influenza Type A Antigen Negative [facility] Comment on above: Negative for Flu A p rotein antigen. Infection due to Flu Acannot be ruled out. Flu A antigen in the sample may bebelow the detection limit of the test. Bedside Influenza Type B Antigen Negative [facility] Comment on above: Negative for Flu B p rotein antigen. Infection due to Flu Bcannot be ruled out. Flu B antigen in the sample may bebelow the detection limit of the test. Eosinophils # (Auto) 0.1 10 3/uL 0.0-0.7 [facility] Immature Granulocyte # (Auto) 0.03 10 3/uL 0.00-0.03 [facility] Platelet mean volume Auto (B ld) [Entitic vol]on 01-14-2024 Platelet mean volume (Bld) [Entitic vol] 9.4 fL 9.5-13.5 [facility] Platelets Auto (Bld) [#/Vol] on 01-14-2024 Platelets (Bld) [#/Vol] 238 10 3/uL 150-450 [facility] Prothrombin time (PT)on PT Coag (PPP) [Time] 9.3 s 9.0-11.6 [facility] RBC Auto (Bld) [#/Vol]on RBC (Bld) [#/Vol] 4.96 10 6/uL 4.20-5.40 [facility] Serum or plasma albumin/glob ulin mass ratioon 01-14-2024 Albumin/Globulin [Mass ratio] 0.7 {ratio} [facility] Serum or plasma anion gap de terminationon 01-14-2024 Anion gap [Moles/Vol] 5.5 mmol/L [facility] Basophils Auto (Bld) [#/Vol] on 12-30-2023 Basophils (Bld) [#/Vol] 0.1 10 3/uL 0.0-0.1 [facility] Basophils/100 WBC Auto (Bld) on 12-30-2023 Basophils/100 WBC (Bld) 0.6 % 0.2-2.0 [facility] Cholesterol in LDL Calc [Mas s/Vol]on 12-30-2023 Cholesterol in LDL [Mass/Vol] 149.0 mg/dL [facility] Comment on above: <100 mg/dl [id number] 0-129 mg/dl NEAR OR ABOVE XLTEIXR108-940 mg/dl BORDERLINE [id number] mg/dl HIGH>190 mg/dl VERY HIGH Cholesterol in VLDL Calc [Ma ss/Vol]on 12-30-2023 Cholesterol in VLDL [Mass/Vol] 18.6 mg/dL [facility] Eosinophils/100 WBC Auto (Bl d)on 12-30-2023 Eosinophils/100 WBC (Bld) 1.8 % 0.9-7.0 [facility] Erythrocyte distribution wid th Auto (RBC) [Ratio]on 12-30-2023 Erythrocyte distribution width (RBC) [Ratio] 13.2 % 11.0-15.0 [facility] Estimated glomerular filtrat ion rate (GFR) non- Americanon 12-30-2023 GFR/1.73 sq M.predicted among non-blacks MDRD (S/P/Bld) [Vol rate/Area] mL/min/{1.73_m2} >=60 [facility] Globulin Calc (S) [Mass/Vol] on 12-30-2023 Globulin (S) [Mass/Vol] 3.8 g/dL [facility] Hematocrit Auto (Bld) [Volum e fraction]on 12-30-2023 Hematocrit (Bld) [Volume fraction] 46.8 % 36.0-48.0 [facility] Hemoglobin [Mass/volume] in Bloodon 12-30-2023 Hemoglobin (Bld) [Mass/Vol] 14.7 g/dL 12.0-16.0 [facility] Laboratory - Chemistry and C hemistry - challengeon 12-30-2023 Albumin [Mass/Vol] 3.0 g/dL 3.4-5.0 [facility] ALP [Catalytic activity/Vol] 88 U/L 46-116 [facility] ALT [Catalytic activity/Vol] 23 U/L 14-59 [facility] AST [Catalytic activity/Vol] 20 U/L 15-37 [facility] Bilirubin [Mass/Vol] 0.5 mg/dL 0.2-1.0 [facility] Calcium [Mass/Vol] 9.2 mg/dL 8.5-10.1 [facility] Chloride [Moles/Vol] 107 mmol/L 98-107 [facility] Cholesterol [Mass/Vol] 224 mg/dL <=200 [facility] Cholesterol in HDL [Mass/Vol] 57 mg/dL 40-60 [facility] Comment on above: > or =60 mg/dl - LOW CARDIOVASCULAR RISK<40 mg/dl - HIGH CARDIOVASCULAR RISK CO2 [Moles/Vol] 31.1 mmol/L 21.0-32.0 [facility] Creatinine [Mass/Vol] 0.72 mg/dL 0.55-1.02 [facility] GFR/1.73 sq M.predicted MDRD (S/P/Bld) [Vol rate/Area] mL/min/{1.73_m2} >=60 [facility] Glucose [Mass/Vol] 100 mg/dL 74-106 [facility] Potassium [Moles/Vol] 4.5 mmol/L 3.5-5.1 [facility] Protein [Mass/Vol] 6.8 g/dL 6.4-8.2 [facility] Sodium [Moles/Vol] 145 mmol/L 136-145 [facility] Triglyceride [Mass/Vol] 93 mg/dL <=150 [facility] TSH Qn 2.655 m[IU]/L 0.358-3.740 [facility] Urea nitrogen [Mass/Vol] 9.0 mg/dL 7.0-18.0 [facility] Urea nitrogen/Creatinine [Mass ratio] 12.5 mg/mg [facility] Laboratory - Hematology and Cell countson 12-30-2023 Immature granulocytes/100 WBC (Bld) 0.2 % 0.0-0.5 [facility] Leukocytes [#/volume] correc wanda for nucleated erythrocytes in Blood by Automated counon 12-30-2023 WBC corrected for nucl RBC Auto (Bld) [#/Vol] 8.7 10 3/uL 4.0-11.0 [facility] Lymphocytes Auto (Bld) [#/Vo l]on 12-30-2023 Lymphocytes (Bld) [#/Vol] 1.8 10 3/uL 1.2-3.8 [facility] Lymphocytes/100 WBC Auto (Bl d)on 12-30-2023 Lymphocytes/100 WBC (Bld) 20.4 % 20.5-60.0 [facility] MCH Auto (RBC) [Entitic mass ]on 12-30-2023 MCH (RBC) [Entitic mass] 28.6 pg 26.7-34.0 [facility] MCHC Auto (RBC) [Mass/Vol]on 12-30-2023 MCHC (RBC) [Mass/Vol] 31.4 g/dL 29.9-35.2 [facility] MCV Auto (RBC) [Entitic vol] on 12-30-2023 MCV (RBC) [Entitic vol] 91.1 fL 81.0-99.0 [facility] Monocytes Auto (Bld) [#/Vol] on 12-30-2023 Monocytes (Bld) [#/Vol] 0.7 10 3/uL 0.3-0.8 [facility] Monocytes/100 WBC Auto (Bld) on 12-30-2023 Monocytes/100 WBC (Bld) 7.5 % 1.7-12.0 [facility] Neutrophils Auto (Bld) [#/Vo l]on 12-30-2023 Neutrophils (Bld) [#/Vol] 6.0 10 3/uL 1.4-6.5 [facility] Neutrophils/100 WBC Auto (Bl d)on 12-30-2023 Neutrophils/100 WBC (Bld) 69.5 % 43.0-75.0 [facility] No Panel Informationon 12-30 Eosinophils # (Auto) 0.2 10 3/uL 0.0-0.7 [facility] Immature Granulocyte # (Auto) 0.02 10 3/uL 0.00-0.03 [facility] Platelet mean volume Auto (B ld) [Entitic vol]on 12-30-2023 Platelet mean volume (Bld) [Entitic vol] 9.3 fL 9.5-13.5 [facility] Platelets Auto (Bld) [#/Vol] on 12-30-2023 Platelets (Bld) [#/Vol] 199 10 3/uL 150-450 [facility] RBC Auto (Bld) [#/Vol]on RBC (Bld) [#/Vol] 5.14 10 6/uL 4.20-5.40 [facility] Serum or plasma albumin/glob ulin mass ratioon 12-30-2023 Albumin/Globulin [Mass ratio] 0.8 {ratio} [facility] Serum or plasma anion gap de terminationon 12-30-2023 Anion gap [Moles/Vol] 11.4 mmol/L [facility] Serum or plasma total choles terol/high density lipoprotein (HDL) cholesterol mass la 12-30-2023 Cholesterol.total/Ch olesterol in HDL [Mass ratio] 3.9 {ratio} [facility] Comment on above: 3.3 - 4.4 LOW RISK4. 4 - 7.1 AVERAGE RISK7.1 - 11.0 MODERATE RISK>11.0 HIGH RISK XR hip LT min 2V(w/wo pelvis )*on 01-08-2023 XR hip LT min 2V(w/wo pelvis)* [facility] Main [address] [address] XRay Report Signed Patient: Adriana Dinero I MR#: [id number] 056 : 1955 Acct:[id number] Age/Sex: 67 / F ADM Date: 01/08/23 [...] Pop Jr., D.O.01/08/2023 1:22 PM Dictation Location: [place] [address] Transcribed By: [facility] 01/08/23 1322 Dictated By: Montana Pop Jr, DO 01/08/23 1321 Signed By: 01/08/23 1322 Normal [facility] XR hip LT min 2V(w/wo pelvis)* [facility] [employer] Other XR hip LT min 2V(w/wo pelvis)* [facility] Main [facility] [employer] Other XR hip LT min 2V(w/wo pelvis)* [address] [place] [address] [employer] Other XR hip LT min 2V(w/wo pelvis)* [place] [address] [employer] Other XR hip LT min 2V(w/wo pelvis)* XRay Report [employer] Other XR hip LT min 2V(w/wo pelvis)* Signed [employer] Other XR hip LT min 2V(w/wo pelvis)* Patient: Adriana Dinero I MR#: [id number] [facility] [employer] Other XR hip LT min 2V(w/wo pelvis)* 056 [employer] Other XR hip LT min 2V(w/wo pelvis)* : 1955 Acct:[id number] [employer] Other XR hip LT min 2V(w/wo pelvis)* Age/Sex: 67 / F ADM Date: 01/08/23 [employer] Other XR hip LT min 2V(w/wo pelvis)* Loc: [facility] Room: Type: [facility] [employer] Other XR hip LT min 2V(w/wo pelvis)* Attending Dr: Samuel Chatman II, MD [employer] Other XR hip LT min 2V(w/wo pelvis)* Copies to: Samuel Chatman MD [employer] Other XR hip LT min 2V(w/wo pelvis)* Ordering Provider: Samuel Chatman MD [employer] Other XR hip LT min 2V(w/wo pelvis)* Date of Service: 01/08/23 [employer] Other XR hip LT min 2V(w/wo pelvis)* XR/XR hip LT min 2V(w/wo pelvis)*: Left hip pain [employer] Other XR hip LT min 2V(w/wo pelvis)* LEFT HIP - 2 views: [employer] Other XR hip LT min 2V(w/wo pelvis)* CLINICAL HISTORY: Left hip pain for months. [employer] Other XR hip LT min 2V(w/wo pelvis)* COMPARISON: Hip series 11/22/2022 [employer] Other XR hip LT min 2V(w/wo pelvis)* FINDINGS: Mild degenerative changes of both hips without acute bony process. [employer] Other XR hip LT min 2V(w/wo pelvis)* XR/XR hip LT min 2V(w/wo pelvis)* [employer] Other XR hip LT min 2V(w/wo pelvis)* IMPRESSION: [employer] Other XR hip LT min 2V(w/wo pelvis)* MILD DEGENERATIVE CHANGES OF BOTH HIPS WITHOUT ACUTE BONY PROCESS.. [employer] Other XR hip LT min 2V(w/wo pelvis)* Impression dictated by: Montana Pop Jr., D.OOdessa01/08/2023 1:22 PM [employer] Other XR hip LT min 2V(w/wo pelvis)* Dictation Location: [place] [address] [employer] Other XR hip LT min 2V(w/wo pelvis)* Transcribed By: VALERIE 01/08/23 [facility] [employer] Other XR hip LT min 2V(w/wo pelvis)* Dictated By: Montana Pop Jr, DO 01/08/23 [facility] [employer] Other XR hip LT min 2V(w/wo pelvis)* Signed By: [employer] Other XR hip LT min 2V(w/wo pelvis)* 01/08/23 [facility] [employer] Other Office Visit (Cardiology)on 12-09-2022 Follow-up visit [...] Former smoker Tobacco Use Screening; Status:Complete; Done: [id number] Patient Instructions Please bring all medicines, vitamins, [...] and provided the patient with 2 local cosmetician apprentice in [facility]. ASSESSMENT AND PLAN: 1. Supraventricular tachycardia, [...] follow-up will be scheduled Iban Lu MD, [facility] Surgical History Problems History of [...] Recorded: 09Dec2022 01:25PM Heart Rate78, L Radial Fxeadook602, LUE, Sitting Npxaaoakz24, LUE, Sitting Height5 ft 6 in Xsssvs712 lb BMI Eetpwizwbo21.03 kg/m2 BSA Calculated2.19 Tobacco Useb) No PHQ-2 [...] Dec 09 2022 2:09PM EST (Author) [facility] Screening.on 023 Fall risk assessment b) One or more fall s in the last year -[facility] Heart-Alicja 250 DO Work Phone: Tobacco use status [facility] b) No [facility] Heart-TATE'S LIST 250 DO Work Phone: Tobacco Screening. Yes MP-Nor [facility] 250 DO Work Phone: XR hip BI w [id number] 11-22-19 XR hip BI w PEL1V [facility] Main [address] [address] XRay Report Signed Patient: Adriana Dinero I MR#: [id number] 056 : 1955 Acct:[id number] Age/Sex: 67 / F ADM Date: 11/22/22 [...] Pop Jr., D.O.11/22/2022 1:12 PM Dictation Location: [place] [address] Transcribed By: [facility] 11/22/22 1312 Dictated By: Montana Pop Jr, DO 11/22/22 1311 Signed By: 11/22/22 1312 Normal [facility] XR lumbar spine AP/LAT/FLX/E XTon 11-22-2022 XR lumbar spine AP/LAT/FLX/EXT [address] [address] XRay Report Signed Patient: Adriana Dinero I MR#: [id number] 056 : 1955 Acct:[id number] Age/Sex: 67 / F ADM Date: 11/22/22 [...] Pop Jr., D.O.11/22/2022 1:11 PM Dictation Location: [place] [address] Transcribed By: [facility] 11/22/22 1311 Dictated By: Montana Pop Jr, DO 11/22/22 1309 Signed By: 11/22/22 1311 Normal [facility] CREATININEon 10-04-2022 Creatinine [Mass/Vol] 0.75 mg/dL Normal 0.55-1.02 [facility] Comment on above: Performed By: #### C CARLOS #### [facility] [address] [place] [address] [address] Henrietta Zavala EGFR-AF NAURUAN >60 Normal >=60 [facility] Comment on above: Performed By: #### C CARLOS #### [facility] [address] [place] [address] [address] Henrietta Zavala EGFR-NON AF NAURUAN >60 Normal >=60 [facility] Comment on above: Performed By: #### C CARLOS #### [facility] [address] [place] [address] Dr. Henrietta Zavala MRI LSPINE WO W [...] OMER Date: 2022-10-04 11:19 Normal [facility] Covid-19 PCR (CVDTB)on 07-11 SARS-CoV-2 (COVID-19) RNA DAVID+probe Ql (Unsp spec) Not detected Normal NOT DETECTED [facility] Comment on above: Result Comment: This test is not yet approved or cleared by the [place] FDA. When there are no FDA-approved or cleared tests available, and other criteria are met, FDA can make tests available under an emergency access mechanism called an Emergency Use Authorization (EUA). The EUA for this test is supported by the [place] of Health and Human Service's (HHS's) [...] consistent with SARS-CoV-2. Performed By: #### [facility] #### [facility] [address] [place] [address] Dr. Henrietta Zavala XR HIPS JI 3_4V [...] CABRERA Date: 2022-04-15 07:00 Normal [facility] XR TSPINE 3 VIEWSon 04-15-20 22 [...] CABRERA Date: 2022-04-15 07:03 Normal [facility] CBC AUTO DIFFon 04-12-2022 BASO # 0.1 103/ul Normal 0.0-0.1 [facility] Comment on above: Performed By: #### C BC #### [facility] [address] [place] [address] Dr. Henrietta Zavala Basophils/100 WBC (Bld) 0.4 % Normal 0.2-2.0 [facility] Comment on above: Performed By: #### C BC #### [facility] [address] [place] [address] Dr. Henrietta Zavala EO # 0.1 103/ul Normal 0.0-0.7 [facility] Comment on above: Performed By: #### C BC #### [facility] [address] [place] [address] Dr. Henrietta Zavala Eosinophils/100 WBC (Bld) 0.4 % Critically low 0.9-7.0 [facility] Comment on above: Performed By: #### C BC #### [facility] [address] [place] [address] Dr. Henrietta Zavala Erythrocyte distribution width (RBC) [Ratio] 14.1 % Normal 11.0-15.0 [facility] Comment on above: Performed By: #### C BC #### [facility] [address] [place] [address] Dr. Henrietta Zavala Hematocrit (Bld) [Volume fraction] 44.9 % Normal 36.0-48.0 [facility] Comment on above: Performed By: #### C BC #### [facility] [address] [place] [address] Dr. Henrietta Zavala Hemoglobin (Bld) [Mass/Vol] 14.2 g/dL Normal 12.0-16.0 [facility] Comment on above: Performed By: #### C BC #### [facility] [address] [place] [address] Dr. Henrietta Zavala IG # 0.06 10e3/ul Critically high 0.00-0.03 [facility] Comment on above: Performed By: #### C BC #### [facility] [address] [place] [address] Dr. Henrietta Zavala IG % 0.5 % Normal 0.0-0.5 [facility] Comment on above: Performed By: #### C BC #### [facility] [address] [place] [address] [address] Henrietta Zavala LYMPH # 2.2 103/ul Normal 1.2-3.8 [facility] Comment on above: Performed By: #### C BC #### [facility] [address] [place] [address] [address] Henrietta Zavala Lymphocytes/100 WBC (Bld) 19.4 % Critically low 20.5-60.0 [facility] Comment on above: Performed By: #### C BC #### [facility] [address] [place] [address] Dr. Henrietta Zavala MANUAL DIFF REQ NO Normal [facility] Comment on above: Performed By: #### C BC #### [facility] [address] [place] [address] Dr. Henrietta Zavala MCH (RBC) [Entitic mass] 27.5 pg Normal 26.7-34.0 [facility] Comment on above: Performed By: #### C BC #### [facility] [address] [place] [address] Dr. Henrietta Zavala MCHC (RBC) [Mass/Vol] 31.6 g/dL Normal 29.9-35.2 [facility] Comment on above: Performed By: #### C BC #### [facility] [address] [place] [address] Dr. Henrietta Zavala MCV (RBC) [Entitic vol] 86.8 fL Normal 81.0-99.0 [facility] Comment on above: Performed By: #### C BC #### [facility] [address] [place] [address] Dr. Henrietta Zavala MONO # 0.9 103/ul Critically high 0.3-0.8 [facility] Comment on above: Performed By: #### C BC #### [facility] [address] [place] [address] Dr. Henrietta Zavala Monocytes/100 WBC (Bld) 7.9 % Normal 1.7-12.0 [facility] Comment on above: Performed By: #### C BC #### [facility] [id number] Henrietta Zavala NEUT # 8.1 103/ul Critically high 1.4-6.5 [facility] Comment on above: Performed By: #### C BC #### [facility] [id number] Henrietta Zavala Neutrophils/100 WBC (Bld) 71.4 % Normal 43.0-75.0 [facility] Comment on above: Performed By: #### C BC #### [facility] [address] [address] [address] Henrietta Zavala Platelet mean volume (Bld) [Entitic vol] 9.7 fL Normal 9.5-13.5 [facility] Comment on above: Performed By: #### C BC #### [facility] [address] [address] [address] Henrietta Zavala PLT 284 103/ul Normal 150-450 [facility] Comment on above: Performed By: #### C BC #### [facility] [address] [address] [address] Henrietta Zavala RBC 5.17 106/ul Normal 4.20-5.40 [facility] Comment on above: Performed By: #### C BC #### [facility] [address] [address] [address] Henrietta Zavala WBC 11.3 103/ul Critically high 4.0-11.0 [facility] Comment on above: Performed By: #### C BC #### [facility] [address] [address] [address] Henrietta Zavala LIPID PROFILEon 04-12-2022 CHOL-HDL RATIO NORM SEE BELOW Normal [facility] Comment on above: Result Comment: 3.3 - 4.4 LOW RISK 4.4 - 7.1 AVERAGE RISK 7.1 - 11.0 MODERATE RISK >11.0 HIGH RISK Performed By: #### C MP, LIPID #### [facility] [address] [address] [address] Henrietta Zavala Cholesterol [Mass/Vol] 235 mg/dL Critically high <=200 [facility] Comment on above: Performed By: #### C MP, LIPID #### [facility] [address] [address] [address] Henrietta Zavala Cholesterol in HDL [Mass/Vol] 47 mg/dL Normal 40-60 [facility] Comment on above: Performed By: #### C MP, LIPID #### [facility] [address] [address] [address] Henrietta Zavala Cholesterol in LDL [Mass/Vol] 160.8 mg/dL Normal [facility] Comment on above: Performed By: #### C MP, LIPID #### [facility] [address] [address] [address] Henrietta Zavala Cholesterol.total/Ch olesterol in HDL [Mass ratio] 5.0 {ratio} Normal [facility] Comment on above: Performed By: #### C MP, LIPID #### [facility] [address] [place] [address] Dr. Henrietta Zavala HDL NORMAL > or = 60 mg/dl - LO W CARDIOVASCULAR RISK <40 mg/dl - HIGH CARDIOVASCULAR RISK Normal [facility] Comment on above: Performed By: #### C MP, LIPID #### [facility] [address] [place] [address] Dr. Henrietta Zavala LDL CALC NORMAL SEE BELOW Normal [facility] Comment on above: Result Comment: <100 mg/dl OPTIMAL 100 - 129 mg/dl NEAR OR ABOVE OPTIMAL 130 - 159 mg/dl BORDERLINE HIGH 160 - 189 mg/dl HIGH >190 mg/dl VERY HIGH Performed By: #### C MP, LIPID #### [facility] [address] [place] [address] Dr. Henrietta Zavala Triglyceride [Mass/Vol] 136 mg/dL Normal <=150 [facility] Comment on above: Performed By: #### C MP, LIPID #### [facility] [address] [place] [address] Dr. Henrietta Zavala VLDL CALC 27.2 mg/dL Normal [facility] Comment on above: Performed By: #### C MP, LIPID #### [facility] [address] [place] [address] Dr. Henrietta Zavala PROF 14(COMP METB)on 022 Albumin [Mass/Vol] 3.2 g/dL Critically low 3.4-5.0 [facility] Comment on above: Performed By: #### C MP, LIPID #### [facility] [address] [address] [address] Henrietta Zavala Albumin/Globulin [Mass ratio] 0.8 {ratio} Normal [facility] Comment on above: Performed By: #### C MP, LIPID #### [facility] [address] [address] [address] Henrietta Zavala ALP [Catalytic activity/Vol] 127 U/L Critically high 46-116 [facility] Comment on above: Performed By: #### C MP, LIPID #### [facility] [address] [place] [address] Dr. Henrietta Zavala ALT [Catalytic activity/Vol] 55 U/L Normal 14-59 [facility] Comment on above: Performed By: #### C MP, LIPID #### [facility] [address] [address] [address] Henrietta Zavala Anion gap [Moles/Vol] 13.6 mmol/L Normal [facility] Comment on above: Performed By: #### C MP, LIPID #### [facility] [address] [place] [address] Dr. Henrietta Zavala AST [Catalytic activity/Vol] 24 U/L Normal 15-37 [facility] Comment on above: Performed By: #### C MP, LIPID #### [facility] [address] [address] [address] Henrietta Zavala Bilirubin [Mass/Vol] 0.3 mg/dL Normal 0.2-1.0 [facility] Comment on above: Performed By: #### C MP, LIPID #### [facility] [address] [address] [address] Henrietta Zavala Calcium [Mass/Vol] 8.8 mg/dL Normal 8.5-10.1 [facility] Comment on above: Performed By: #### C MP, LIPID #### [facility] [address] [address] [address] Henrietta Zavala Chloride [Moles/Vol] 107 mmol/L Normal 98-107 [facility] Comment on above: Performed By: #### C MP, LIPID #### [facility] [address] [place] [address] Dr. Henrietta Zavala CO2 [Moles/Vol] 25.6 mmol/L Normal 21.0-32.0 [facility] Comment on above: Performed By: #### C MP, LIPID #### [facility] [address] [place] [address] Dr. Henrietta Zavala Creatinine [Mass/Vol] 0.77 mg/dL Normal 0.55-1.02 [facility] Comment on above: Performed By: #### C MP, LIPID #### [facility] [address] [place] [address] Dr. Henrietta Zavala EGFR-AF NAURUAN >60 Normal >=60 [facility] Comment on above: Performed By: #### C MP, LIPID #### [facility] [address] [place] [address] Dr. Henrietta Zavala EGFR-NON AF NAURUAN >60 Normal >=60 [facility] Comment on above: Performed By: #### C MP, LIPID #### [facility] [address] [place] [address] Dr. Henrietta Zavala Globulin (S) [Mass/Vol] 3.8 g/dL Normal [facility] Comment on above: Performed By: #### C MP, LIPID #### [facility] [address] [address] [address] Henrietta Zavala Glucose [Mass/Vol] 90 mg/dL Normal 74-106 [facility] Comment on above: Performed By: #### C MP, LIPID #### [facility] [address] [place] [address] Dr. Henrietta Zavala Potassium [Moles/Vol] 4.2 mmol/L Normal 3.5-5.1 [facility] Comment on above: Performed By: #### C MP, LIPID #### [facility] [address] [place] [address] Dr. Henrietta Zavala Protein [Mass/Vol] 7.0 g/dL Normal 6.4-8.2 [facility] Comment on above: Performed By: #### C MP, LIPID #### [facility] [address] [address] [address] Henrietta Zavala Sodium [Moles/Vol] 142 mmol/L Normal 136-145 [facility] Comment on above: Performed By: #### C MP, LIPID #### [facility] [address] [address] [address] Henrietta Zavala Urea nitrogen [Mass/Vol] 13.0 mg/dL Normal 7.0-18.0 [facility] Comment on above: Performed By: #### C MP, LIPID #### [facility] [address] [address] [address] Henrietta Zavala Urea nitrogen/Creatinine [Mass ratio] 16.9 mg/mg Normal [facility] Comment on above: Performed By: #### C MP, LIPID #### [facility] [address] [place] [address] Dr. Henrietta Zavala Tobacco Screening.on 021 Fall risk assessment a) No falls within the last year [facility] 250 DO Work Phone: Tobacco use status [facility] b) No [facility] 250 DO Work Phone: KNEE LEFT 3 [facility] 03-30-2021 KNEE LEFT 3 [facility] Department of Radiology [address] [place] [phone] ======== Patient Name: ADRIANA RAYGOZA : 1955 Sex: F Age: Race: White Pt. Location: Patient Status: Ordered Date: 03/30/2021 9:00:00 AM Completed Date: 03/30/2021 09:07 AM Requesting Provider: RAMANDEEP PATEL Attending Provider: Report Copy To: Signs & Symptoms: M25.562 Pain in left knee I10 History: Deb Comments: , , , Ordering Provider - RAMANDEEP PATEL MD , Exam: KNEE LEFT 3 [facility] ======== KNEE LEFT 3 S 03/30/2021 9:07 [...] findings. Electronically signed: Jesse Lazaro. Transcribed by: [email or web address], User Resident: Electronically Signed by: JESSE LAZARO @ 03/30/2021 11:00 AM Normal [facility] Comment on above: Order Comment: , , = ========= , Ordering Provider - RAMANDEEP PATEL MD , KNEE RIGHT 3 Son KNEE RIGHT 3 S [facility] Department of Radiology [address] [place] [phone] ======== Patient Name: ADRIANA RAYGOZA : 1955 Sex: F Age: Race: White Pt. Location: 84 Patient Status: O Ordered Date: 03/30/2021 9:05:00 AM Completed Date: 03/30/2021 09:07 AM Requesting Provider: RAMANDEEP PATEL Attending Provider: RAMANDEEP PATEL Report Copy To: Signs & Symptoms: M25.569 Pain in unspecified knee I10 History: [place] Comments: Evaluate Exam: KNEE RIGHT 3 VWS [...] reports Electronically signed: Jesse Lazaro. Transcribed by: [email or web address], User Resident: SHALA EATON Electronically Signed by: JESSE LAZARO @ 03/30/2021 03:52 PM I personally read this/these film(s) with this resident Normal [facility] Comment on above: Order Comment: Evalu ate MRI LUMBAR SP W & WO CONTRAS Ton 10-11-2020 MRI LUMBAR SP W & WO CONTRAST STUDY: MRI LUMBAR SP W WO CONTRAST; 10/11/2020 11:35 am INDICATION: POST LAMINECTOMY SYNDROME. COMPARISON: None. ACCESSION NUMBER(S): [id number] ORDERING CLINICIAN: Denis Donohue TECHNIQUE: The lumbar [...] osteomyelitis. * THIS EXAMINATION WAS INTERPRETED AT [facility] Normal [facility] LUMB SP COMP W FLEX/EXT 6 VW Son 09-12-2020 LUMB SP COMP W FLEX/EXT 6 VWS STUDY: LUMB SP COMP W FLEX/EXT 6 VWS ; ; 09/12/2020 8:45 am INDICATION: PAIN. COMPARISON: None. ACCESSION NUMBER(S): [id number] ORDERING CLINICIAN: Denis Donohue FINDINGS: Status post [...] neural foraminal stenosis at L5-S1 level. Normal [facility] Ambulatory Clinical Summaryo n 05-22-2020 Ambulatory Clinical Summary {[id number] }CD:[id number] Normal [facility] Coding Summary.on 05-10-2020 Coding Summary. CODING DATE: 05/10/2020 FINAL [facility] STATUS: Home (Routine DC) PAYOR: Commercial [...] Jasmine CphT Date Saved: 05/10/2020 04:39 pm [facility] Coding Summary.on 05-08-2020 Coding Summary. CODING DATE: 05/08/2020 [facility] STATUS: Home (Routine DC) PAYOR: [...] Jasmine CphT Date Saved: 05/08/2020 12:00 pm [facility] IntraOperative Documentson 0 05-08-2020 IntraOperative Documents [id number]#1. 00CD:127 [facility] Postoperative Documentson Postoperative Documents [id number]#1.0 0CD:127 [facility] Coding Summary.on 05-04-2020 Coding Summary. CODING DATE: 05/04/2020 [facility] STATUS: Home (Routine DC) PAYOR: Commercial Insurance APC DESCRIPTION 5301 Level 1 Upper GI Procedures ADMIT DX: REASON FOR VISIT DX: R10.13 Epigastric pain FINAL DX: PRINCIPAL: K29.50 Unspecified chronic gastritis without bleeding SECONDARY: K25.9 Gastric ulcer, unspecified as acute or chronic, without hemorrhage or perforation R11.2 Nausea with vomiting, unspecified PYMT PROC APC STAT DESCRIPTION DOCTOR NAME DATE 09720 5301 Reid CLINE MD 05/01/2020 phagogastroduodenoscop y, flexible, transoral; with biopsy, single or multiple 40826 Anesthesia for upper Elliot Tena Jr, DO [...] Revised Date Saved: 05/04/2020 03:45 pm Normal [facility] Progress Note-Physicianon Progress Note-Physician Patient: [...] Cardiovascular: Regular rhythm. Neurologic: Alert, Oriented. Plan [place] [employer]esthesiologists (ASA) physical status classification: Class II. Anesthetic Preoperative Plan Anesthesia: General. . Anesthetic plan, risks, benefits, and alternatives discussed with the patient and/or family. Communication: face to face with (patient 5 minutes, Patient educated on smoking cesstation). Normal [facility] Comment on above: Result Comment: Elec tronically Signed By: Elliot Tena Jr, DO\.br\Date and Time Signed: 05/03/20 09:34 EDT Main OR Intraoperative Recor don 05-02-2020 Main OR Intraoperative Record IntraOp Document Type FT Summary Primary Physician: Reid NIEVES MD Finalized Date/Time: 05/02/20 13:35:19 Pt. Name: ADRIANA DINERO Shoshana VeraB./Sex: 1955 Female Med Rec #: [id number] Physician: Reid NIEVES MD Financial #: [id number] Pt. Type: O Room/Bed: / Admit/Disch: 05/01/20 07:03:44 - 05/01/20 23:59:59 Institution: Case Times FT Entry 1 Patient Times In Room 05/01/20 08:17:00 Out Room 05/01/20 08:25:00 Procedure Times Start 05/01/20 08:21:00 Stop 05/01/20 08:23:00 Anesthesia Times Start 05/01/20 08:17:00 Stop 05/01/20 08:25:00 Last Modified By: Savannah Chavis RN 05/01/20 08:26:21 General Comments: 05/02/2020 Chart opened to review and send charges Juvencio Andrés [employer] Case Attendance FT Entry 1 Entry 2 Entry 3 Case Attendee Elliot Tena Jr, DO, RN, Fior Simms Role Performed Anesthesiologist of [employer] Roller - Primary Scrub - Primary Record Time [...] RN Patient Status Stable Skin. Condition Intact, [place], Warm, and Dry Airway Maintenance Oxygen in Use? No Outcomes Met? Yes Last Modified By: Savannah Chavis RN 05/01/20 06:57:50 Post-Care Text: The patient is free from signs and symptoms of injury related to transfer/transport General Comments: Report given to identification technician. RHRN Medication Administration FT Pre-Care Text: Verifies [...] 08:26 Altagracia Bowen CST 05/02/20 13:35 Normal [facility] Consenton 05-01-2020 Consent [id number]#1.0 0CD:127 Normal [facility] Consent for Treatmenton 04-11 Consent for Treatment [id number]#1.0 0CD:127 Normal [facility] Discharge Instructionson Discharge Instructions [id number]#1.0 0CD:127 [facility] History and Physicalon 05-01 History and Physical [id number]#1.0 0CD:127 Normal [facility] Inpatient Patient Summaryon 05-01-2020 Inpatient Patient Summary [address] [address] [facility] Clinical Discharge Instructions PERSON INFORMATION Name: ADRIANA DINERO I [facility]#:[id number] PHYSICIANS Admitting Physician: Reid NIEVES MD Attending Physician: Reid NIEVES MD PCP: TOBY QUINTANA MD Discharge Diagnosis: Antral ulcer Comment: PATIENT EDUCATION INFORMATION Instructions: Medication Leaflets: Follow up: With: Address: When: [facility] [address] [place] [address] Within 2 weeks Type Location Start [facility] Follow Up [facility] 05/22/2020 2:15 PM 05/22/2020 2:30 PM Confirmed MEDICATION LIST Medications to Continue Taking That Have Changed [facility] [facility], [address] [place], [place] [id number], [phone] START: omeprazole (omeprazole 40 mg Cap-DR) 1 [...] Mouth every 8 hours. Refills: 1. Comment: [facility] IntraOperative Documentson 0 05-01-2020 IntraOperative Documents [id number]#1.0 0CD:127 [facility] IntraOperative Documents [id number]#1.0 0CD:127 [facility] Main OR PACU I Recordon 04-11 Main OR PACU I Record PACU Phase I Document Type FT Summary Primary Physician: Reid NIEVES MD Finalized Date/Time: 05/01/20 09:14:39 Pt. Name: ADRIANA DINERO Shoshana Jerome/Sex: 1955 Female Med Rec #: [id number] Physician: Reid NIEVES MD Financial #: [id number] Pt. Type: O Room/Bed: / Admit/Disch: 05/01/20 [...] Signed By: Ami Donaldson RN 05/01/20 09:14 [facility] Main OR Preoperative Recordo n 05-01-2020 Main OR Preoperative Record Holding Area Document Type FT Summary Primary Physician: Reid NIEVES MD Finalized Date/Time: 05/01/20 07:37:17 Pt. Name: ADRIANA DINERO/Sex: 1955 Female Med Rec #: [id number] Physician: Reid NIEVES MD Financial #: [id number] Pt. Type: O Room/Bed: / Admit/Disch: 05/01/20 [...] By: Lizbeth Diamond RN 05/01/20 07:37 Normal [facility] Monitor Recordon 05-01-2020 Monitor Record [id number]#1. 00CD:127 Normal [facility] Patient Education - Texton 0 05-01-2020 Patient Education - Text Normal [facility] Ambulatory Clinical Summaryo n 04-24-2020 Ambulatory Clinical Summary {[id number]}CD:[id number] Normal [facility] Auto Diffon 04-24-2020 Basophils/100 WBC (Bld) 0.5 % Normal 0.0-2.0 [facility] Comment on above: Order Comment: Order Added by Discern Expert. Performed By: #### 2 063626, 9019686, 3568160, 7486212, [id number] #### [facility] [address] [place] [address] Basophils/Leukocytes Auto (Bld) [Pure # fraction] 0.0 E9/L Normal 0.0-0.2 [facility] Comment on above: Order Comment: Order Added by Discern Expert. Performed By: #### 2 649125, 1569783, 7545824, 4692019, [id number] #### [facility] [address] [place] [address] Eosinophils/100 WBC (Bld) 2.9 % Normal 0.0-8.0 [facility] Comment on above: Order Comment: Order Added by Discern Expert. Performed By: #### 2 689202, 7141278, 6624345, 8601529, [id number] #### [facility] [address] [place] [address] Eosinophils/Leukocyt es Auto (Bld) [Pure # fraction] 0.3 E9/L Normal 0.0-0.5 [facility] Comment on above: Order Comment: Order Added by Discern Expert. Performed By: #### 2 263434, 6795623, 7631305, 8578303, [id number] #### [facility] [address] [place] [address] Lymphocytes/100 WBC (Bld) 23.7 % Normal 14.0-50.0 [facility] Comment on above: Order Comment: Order Added by Discern Expert. Performed By: #### 2 065269, 8797181, 7354997, 2517321, 07964258 #### [facility] [address] [place] [address]77 Lymphocytes/Leukocyt es Auto (Bld) [Pure # fraction] 2.2 E9/L Normal 1.0-4.0 [facility] Comment on above: Order Comment: Order Added by Discern Expert. Performed By: #### 2 150203, 7590458, 3899982, 3607487, 95576136 #### [facility] [address] [place] [address] Monocytes/100 WBC (Bld) 7.4 % Normal 4.0-14.0 [facility] Comment on above: Order Comment: Order Added by Discern Expert. Performed By: #### 2 195159, 7803931, 1137508, 5230472, 43070391 #### [facility] [address] [place] [address] Monocytes/Leukocytes Auto (Bld) [Pure # fraction] 0.7 E9/L Normal 0.2-1.0 [facility] Comment on above: Order Comment: Order Added by Discern Expert. Performed By: #### 2 354066, 9117629, 4990392, 0861281, [id number] #### [facility] [address] [place] [address]33 Neutrophils/100 WBC (Bld) 65.5 % Normal 36.0-75.0 [facility] Comment on above: Order Comment: Order Added by Discern Expert. Performed By: #### 2 490349, 6810323, 8779854, 3332416, 55994654 #### [facility] [address] [place] [address] 07175 Neutrophils/Leukocyt es Auto (Bld) [Pure # fraction] 6.0 E9/L Normal 2.0-7.5 [facility] Comment on above: Order Comment: Order Added by Discern Expert. Performed By: #### 2 411678, 8032251, 3911288, 3883277, 10446455 #### [facility] [address] [place] [address] CBC w/ Auto Diffon 0 Erythrocyte distribution width (RBC) [Ratio] 16.1 % High 10.9-14.2 [facility] Comment on above: Performed By: #### 2 513688, 3011429, 3213392, 0939174, [id number] #### [facility] [address] [place] [address]391 Hematocrit (Bld) [Volume fraction] 45.1 % Normal 34.0-46.0 [facility] Comment on above: Performed By: #### 2 131993, 4592811, 1518440, 9266622, 66224329 #### [facility] [address] [place] [address]8576 Hemoglobin (Bld) [Mass/Vol] 15.0 g/dL Normal 12.0-16.0 [facility] Comment on above: Performed By: #### 2 776467, 6408278, 7674163, 0054051, 68021488 #### [facility] [address] [place] [address] 00821 MCH (RBC) [Entitic mass] 27.2 pg Normal 27.0-34.0 [facility] Comment on above: Performed By: #### 2 414593, 4909067, 7694703, 3614088, 98224840 #### [facility] [address] [place] [address] 33794 MCHC (RBC) [Mass/Vol] 33.2 g/dL Normal 31.4-36.0 [facility] Comment on above: Performed By: #### 2 704430, 0365831, 6826380, 5690468, [id number] #### [facility] [address] [place] [address] 22362 MCV (RBC) [Entitic vol] 82.0 fL Normal 80.0-100.0 [facility] Comment on above: Performed By: #### 2 094055, 2478123, 2464982, 3562112, 31588112 #### [facility] [address] [place] [address]697 Platelet mean volume (Bld) [Entitic vol] 7.3 fL Normal 6.4-10.8 [facility] Comment on above: Performed By: #### 2 198499, 4367469, 6136030, 4122100, 70842654 #### [facility] [address] [place] [address] 13252 Platelets (Bld) [#/Vol] 253.0 E9/L Normal 150.0-500.0 [facility] Comment on above: Performed By: #### 2 912873, 8568627, 2105284, 3867278, 73683528 #### [facility] [address] [place] [address]115 RBC (Bld) [#/Vol] 5.5 E12/L Normal 4.3-5.9 [facility] Comment on above: Performed By: #### 2 941330, 4089347, 6080788, 7701257, 38929883 #### [facility] [address] [place] [address]606 WBC corrected for nucl RBC Auto (Bld) [#/Vol] 9.1 E9/L Normal 4.0-11.0 [facility] Comment on above: Performed By: #### 2 152642, 4442784, 9770063, 0718941, [id number] #### [facility] [address] [place] [address] CMPon 04-24-2020 Albumin [Mass/Vol] 3.7 g/dL Normal 3.3-5.0 [facility] Comment on above: Performed By: #### 2 546717, 6463237, 3357924, 4921666, 94553950 #### [facility] [address] [place], [place] [address] Albumin [Mass/Vol] 1.0 g/dL Low 1.1-2.2 [facility] Comment on above: Performed By: #### 2 105616, 9985841, 5980821, 3877554, 88585090 #### [facility] [address] [place] [address] ALP [Catalytic activity/Vol] 107 Int._Unit/L High 21-98 [facility] Comment on above: Performed By: #### 2 800448, 2085441, 2104802, 4633095, 13571357 #### [facility] [address] [place] [address] ALT No additional P-5'-P [Catalytic activity/Vol] 17 Int._Unit/L Normal 6-46 [facility] Comment on above: Performed By: #### 2 857688, 1855894, 9826643, 1255283, 37497526 #### [facility] [address] [place] [address] Anion gap [Moles/Vol] 11 mmol/L Normal 6-16 [facility] Comment on above: Performed By: #### 2 314361, 8002216, 0261833, 2100483, 25114188 #### [facility] [address] [place] [address] AST [Catalytic activity/Vol] 21 Int._Unit/L Normal 5-43 [facility] Comment on above: Performed By: #### 2 052968, 1834684, 5886959, 8569658, 83290050 #### [facility] [address] [place] [address] Bilirubin [Mass/Vol] 0.5 mg/dL Normal 0.0-1.1 [facility] Comment on above: Performed By: #### 2 707706, 4688533, 0240398, 5530596, 42147433 #### [facility] [address] [place] [address] Calcium [Mass/Vol] 9.0 mg/dL Normal 8.9-11.1 [facility] Comment on above: Performed By: #### 2 756226, 7889268, 0536394, 9521792, 35177971 #### [facility] [address] [place] [address] Chloride [Moles/Vol] 107 mmol/L Normal 101-111 [facility] Comment on above: Performed By: #### 2 370471, 1784289, 8817693, 5608870, 64960848 #### [facility] [address] [place] [address] CO2 [Moles/Vol] 27 mmol/L Normal 21-31 [facility] Comment on above: Performed By: #### 2 540461, 8954160, 6590500, 6863690, 37674913 #### [facility] [address] [place] [address] Creatinine [Mass/Vol] 0.8 mg/dL Normal 0.5-1.3 [facility] Comment on above: Performed By: #### 2 786796, 3253480, 7219279, 3138733, 76391315 #### [facility] [address] [place] [address] Globulin (S) [Mass/Vol] 3.7 g/dL Normal 1.4-4.0 [facility] Comment on above: Performed By: #### 2 585749, 7481940, 4864734, 7039661, 22862738 #### [facility] [address] [place] [address] Glucose [Mass/Vol] 134 mg/dL Normal 55-199 [facility] Comment on above: Result Comment: If t his glucose result represents a fasting glucose, interpretation should refer to the following reference range: 55-99 mg/dL Performed By: #### 2 341939, 4736716, 6634572, 7988189, 91615682 #### [facility] [address] [place] [address] Potassium [Moles/Vol] 3.9 mmol/L Normal 3.5-5.3 [facility] Comment on above: Performed By: #### 2 820666, 2704679, 0987924, 7529970, 95140727 #### [facility] [address] [place] [address] Protein [Mass/Vol] 7.4 g/dL Normal 6.0-7.8 [facility] Comment on above: Performed By: #### 2 094001, 2743885, 7926190, 2581160, 32001176 #### [facility] [address] [place] [address] Sodium [Moles/Vol] 141 mmol/L Normal 135-145 [facility] Comment on above: Performed By: #### 2 075699, 3191928, 0260587, 9600564, 60191721 #### [facility] [address] [place] [address] Urea nitrogen [Mass/Vol] 17 mg/dL Normal 5-21 [facility] Comment on above: Performed By: #### 2 494014, 8426901, 3832831, 6432058, 63784634 #### [facility] [address] [place] [address] Urea nitrogen/Creatinine [Mass ratio] 21 No Units High 10-20 [facility] Comment on above: Performed By: #### 2 635035, 9054857, 6074784, 2806837, 35066846 #### [facility] [address] [place] [address] Consent for Treatmenton 04-10 Consent for Treatment [id number] 0CD:127 Normal [facility] Lipase Levelon 04-24-2020 Lipase [Catalytic activity/Vol] 40 unit/L Normal 13-58 [facility] Comment on above: Performed By: #### 2 341241, 7229157, 8405001, 0215601, 52482718 #### [facility] [address] [place] [address] Physician Orderon 04-24-2020 Physician Order [id number]#1.00 CD:127 Normal [facility] eGFRon 04-24-2020 GFR/1.73 sq M predicted among blacks MDRD (S/P/Bld) [Vol rate/Area] mL/min/{1.73_m2} Normal >=59 [facility] Comment on above: Order Comment: Order added by Discern Expert. Result Comment: eGFR is race adjusted. AA=. Performed By: #### 2 957096, 8703265, 1421746, 8040640, 91174050 #### [facility] [address] [place] [address] GFR/1.73 sq M predicted among non-blacks MDRD (S/P/Bld) [Vol rate/Area] mL/min/{1.73_m2} Normal >=59 [facility] Comment on above: Order Comment: Order added by Discern Expert. Result Comment: Grade Recorder farhan kidney disease could be indicated at eGFR's of less than 60 mL/min/1.73m2. Kidney failure is indicated at less than 15 mL/min/1.73m2. Performed By: #### 2 596431, 1138703, 5192130, 3446182, 32657693 #### [facility] [address] [place] [address] PROGRESSon 11-04-2019 PROGRESS HNO ID: [id number] Author: Bridger Ma Service: ? Author Type: Physician Type: Progress Notes Filed: 11/04/2019 5:12 PM Note Text: Bridger Ma MD Department of Orthopaedics Orthopaedics [address] [address] Dept: [phone] October 05, 2019 CHIEF COMPLAINT: New Patient [...] electronic medical record. Caitlyn Cantu, LIZZY [address]70 [facility] [address] Toby Quintana MD [address] [place] [phone] This note was partially generated using [employer] voice recognition system, and there may be some incorrect words, spellings, and punctuation that were not noted in checking the note before saving. 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 Patient had an x-ray done at [facility] on 11/02/18 and a MRI on 11/30/18. Patient hand carried copies of the reports and films on a CD. with patient today. Referred by Caitlyn Cantu. Taking [place] and Naproxen for the pain and does not help. Using a walker today and as needed at home. Bridger Ma MD 11/04/2019 5:12 PM Signed Bridger Ma MD Department of Orthopaedics Orthopaedics [address] [place] [address] Dept: [phone] October 05, 2019 CHIEF COMPLAINT: New Patient [...] or electronic medical record. LIZZY Graham 970 [facility] [address] Toby Quintana MD [address] [place] [phone] This note was partially generated using [employer] voice recognition system, and there may be some incorrect words, spellings, and punctuation that were not noted in checking the note before saving. Bridger Ma MD Referring Provider: CAITLYN CANTU [[id number]] Allergies As of Date: 10/05/2019 Noted Allergy [...] mg injection (CELESTONE)Disp: Rfl: [facility] [9916002] Order #: [id number]: 1 Large Joint Arthro/Inj: R knee joint [NJE787] Order #: [id number] betamethasone acetate-betamethasone sodium phosphate 6 mg injection [...] Status:Closed by BRIDGER MA MD on 11/04/19 [facility] PROGRESSon 10-05-2019 PROGRESS HNO ID: [id number] Author: Eleanor Talbot Ma Service: ? Author Type: ? Type: Progress Notes Filed: 11/04/2019 5:12 PM Note Text: Patient presents with: New Patient: Right knee pain - [facility]. 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 Patient had an x-ray done at [facility] on 11/02/18 and a MRI on 11/30/18. Patient hand carried copies of the reports and films on a CD. with patient today. Referred by Caitlyn Cantu. Taking [place] and Naproxen for the pain and does not help. Using a walker today and as needed at home. Normal [facility] CREATININEon 08-26-2019 Creatinine [Mass/Vol] 0.80 mg/dL Normal 0.50 - 1.05 [facility] Comment on above: Performed By: #### C REAT #### [address] [address] Creatinine [Mass/Vol] mg/dL Normal >60 [facility] Comment on above: Performed By: #### C REAT #### [address] [address] Result Comment: CALC ULATIONS OF ESTIMATED GFR ARE PERFORMED USING THE MDRD STUDY EQUATION FOR THE IDMS-TRACEABLE CREATININE METHODS. CLIN CHEM 2007;53:766-72 ELECTROLYTE PANELon 08-26-20 19 Anion gap [Moles/Vol] 14 mmol/L Normal - 20 [facility] Comment on above: Performed By: #### E LECT #### [address] [address] Chloride [Moles/Vol] 104 mmol/L Normal 98 - 107 [facility] Comment on above: Performed By: #### E LECT #### [address] [address] HCO3 (Bld) [Moles/Vol] 29 mmol/L Normal 21 - 32 [facility] Comment on above: Performed By: #### E LECT #### [address] [address] Potassium [Moles/Vol] 4.6 mmol/L Normal 3.5 - 5.3 [facility] Comment on above: Performed By: #### E LECT #### [address] [address] Sodium [Moles/Vol] 142 mmol/L Normal 136 - 145 [facility] Comment on above: Performed By: #### E LECT #### [facility] [address] [place] [address] UREA NITROGENon 08-26-2019 Urea nitrogen [Mass/Vol] 14 mg/dL Normal 6 - 23 [facility] Comment on above: Performed By: #### U CARLOS #### [address] [address] [facility] CARDIAC STRESS/REST INJE CTIONon 08-25-2019 [facility] CARDIAC STRESS/REST INJECTION Patient Name: ADRIANA DINERO STUDY: MYOCARDIAL PERFUSION STRESS TEST WITH LEXISCAN Performing facility: [facility], [address] [place] [address], [address], [place] [address] [facility] Provider: GURU LU PCP: Dr. Poli QUINTANA Supervising provider: Poli VILLAFANA INDICATION: DYSPNEA EDEMA HISTORY: Gender: F; Age: 64 y/o ; Height: 170.18 cm; Weight: 127.226636 kg. SOB High Cholesterol; Family HX CAD; PALPITATIONS COMPARISON: ACCESSION NUMBER(S): [id number] ORDERING CLINICIAN: IBAN LU TECHNIQUE: TWO DAY [...] Electronically signed by: IBAN LU MD Normal [facility] OT-MRI KNEE RT WO CON IMPORT on 07-27-2019 OT-MRI KNEE RT WO CON IMPORT Images were obtained outside of [facility] [id number] Normal [facility] CNOVon 07-07-2019 CNOV Office Visit (SPNMED ) ADRIANA DINERO ([id number]) 1955 F Date Time Provider Department 07/07/19 9:40 AM [facility] During your visit today, we recorded the following information about you: Pulse Blood pressure Weight Height 80/minute 126/55 124.1 kg 1.676 m LIZZY Graham 07/07/2019 1:08 PM Signed BEVERLEY Lopez [facility] [address] [place] [address] 07/07/2019 Assessment Diagnosis: Encounter Diagnosis ICD-10-CM 1. [...] told for multiple years that she has duft-tt-kdpm arthritis in the right knee and this [...] record for those providers who practice within [facility] or with access to [employer] via MD Connect, or via letter. [...] past--performed in [address] Jones in [place]. The procedure was a spinal laminectomy and fusion L2-4, and subsequent revision L2-5 lami/fusion with posterior hardware and interbody cages. 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 Author Type: Physician Paramedic Supervisor Type: Progress Notes Filed: 07/07/2019 1:08 PM Note Text: Cait[facility] Cantu [facility]-C [facility] [address] [place] [address] 07/07/2019 Assessment Diagnosis: Encounter Diagnosis ICD-10-CM 1. [...] told for multiple years that she has scmu-pa-bxix arthritis in the right knee and this [...] record for those providers who practice within [facility] or with access to [employer] via MD Connect, or via letter. [...] past--performed in [address] Jones in [place]. The procedure was a spinal laminectomy and fusion L2-4, and subsequent revision L2-5 lami/fusion with posterior hardware and interbody cages. 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 IMAGING STUDIES: See above Normal [facility] CT-CT cervical spine w con I MPORTon 04-08-2019 CT-CT cervical spine w con IMPORT Images were obtained outside of [facility] [id number] Normal [facility] CT-CT cervical spine w con IMPORT Images were obtained outside of [facility] [id number] Normal [facility] CT-CT cervical spine w con IMPORT Images were obtained outside of [facility] [id number] Normal [facility] CT-CT lumbar spine w con IMP Edi 04-08-2019 CT-CT lumbar spine w con IMPORT Images were obtained outside of [facility] [id number] Normal [facility] CT-CT lumbar spine w con IMPORT Images were obtained outside of [facility] [id number] Normal [facility] CT-CT lumbar spine w con IMPORT Images were obtained outside of [facility] [id number] Normal [facility] OT-IR myelogram spine total IMPORTon 04-08-2019 OT-IR myelogram spine total IMPORT Images were obtained outside of [facility] [id number] Normal [facility] OT-IR myelogram spine total IMPORT Images were obtained outside of [facility] [id number] Normal [facility] OT-IR myelogram spine total IMPORT Images were obtained outside of [facility] [id number] Normal [facility] OT-MRI C-SPINE WO CON IMPORT on 02-25-2019 OT-MRI C-SPINE WO CON IMPORT Images were obtained outside of [facility] [id number] Normal [facility] OT-XR KNEE RT 4V OR > IMPORT on 11-30-2018 OT-XR KNEE RT 4V OR > IMPORT Images were obtained outside of [facility] [id number] [facility] Vital Signs Date Time Vital Sign Value Performing Clinician Facility 08-12-2024 09: Body height 165.1 cm [facility] 08-12-2024 09: Body mass index (BMI) [Ratio] 39.2 kg/m2 [facility] 08-12-2024 09: Body weight 106.76 kg [facility] 08-12-2024 09: Diastolic blood pressure 72 mm[Hg] [facility] 08-12-2024 09: Heart rate 75 /min [facility] 08-12-2024 09:23-0400 Respiratory rate 16 /min [facility] 08-12-2024 09:23-0400 SaO2% (BldA) [Mass fraction] 96 % [facility] 08-12-2024 09:23-0400 Systolic blood pressure 128 mm[Hg] [facility] 04-30-2024 09:12-0400 Body height 165.1 cm [facility] 04-30-2024 09:12-0400 Body mass index (BMI) [Ratio] 39.6 kg/m2 [facility] 04-30-2024 09:12-0400 Body weight 107.95 kg [facility] 04-30-2024 09:12-0400 Diastolic blood pressure 74 mm[Hg] [facility] 04-30-2024 09:12-0400 Heart rate 75 /min [facility] 04-30-2024 09:12-0400 Systolic blood pressure 109 mm[Hg] [facility] 03-22-2024 13:18-0400 Body height 165.1 cm [facility] 03-22-2024 13:18-0400 Body mass index (BMI) [Ratio] 39.7 kg/m2 [facility] 03-22-2024 13:18-0400 Body weight 108.4 kg [facility] 03-22-2024 13:18-0400 Diastolic blood pressure 77 mm[Hg] [facility] 03-22-2024 13:18-0400 Heart rate 75 /min [facility] 03-22-2024 13:18-0400 Systolic blood pressure 127 mm[Hg] [facility] 02-10-2024 13:04-0400 Body height 167.64 cm [facility] 02-10-2024 13:04-0400 Body mass index (BMI) [Ratio] 38.5 kg/m2 [facility] 02-10-2024 13:04-0400 Body weight 108.4 kg [facility] 02-10-2024 13:04-0400 Diastolic blood pressure 73 mm[Hg] [facility] 02-10-2024 13:04-0400 Heart rate 85 /min [facility] 02-10-2024 13:04-0400 Systolic blood pressure 105 mm[Hg] [facility] 01-19-2024 08:44-0400 Body height 167.64 cm [facility] 12-30-2023 09:55-0500 Body height 167.64 cm [facility] 12-30-2023 09:55-0500 Body mass index (BMI) [Ratio] 38.9 kg/m2 [facility] 12-30-2023 09:55-0500 Body weight 109.31 kg [facility] 12-30-2023 09:55-0500 Diastolic blood pressure 76 mm[Hg] [facility] 12-30-2023 09:55-0500 Heart rate 69 /min [facility] 12-30-2023 09:55-0500 Systolic blood pressure 120 mm[Hg] [facility] 12-09-2023 10:32-0500 Diastolic blood pressure 80 mm[Hg] Iban Lu MD Work Phone: [facility] 12-09-2023 10:32-0500 Systolic blood pressure 130 mm[Hg] Iban Lu MD Work Phone: [facility] 12-09-2023 09:46-0500 Body height 167.6 cm Iban Lu MD Work Phone: [facility] 12-09-2023 09:46-0500 Body mass index (BMI) [Ratio] 39.06 kg/m2 Iban Lu MD Work Phone: [facility] 12-09-2023 09:46-0500 Body weight 109.77 kg Iban Lu MD Work Phone: [facility] 12-09-2023 09:46-0500 Heart rate 68 /min Iban Lu MD Work Phone: [facility] 08-20-2023 09:00-0400 Body height 167.64 cm Toby Quintana Other [employer] Other 08-20-2023 09:00-0400 Body mass index (BMI) [Ratio] 38.38 kg/m2 Toby Quintana Other [employer] Other 08-20-2023 09:00-0400 Body weight 107.87 kg Toby Quintana Other [employer] Other 08-20-2023 09:00-0400 Diastolic blood pressure 75 mm[Hg] Toby Quintana Other [employer] Other 08-20-2023 09:00-0400 Systolic blood pressure 108 mm[Hg] Toby Quintana Other [employer] Other 04-24-2023 11:15-0400 Body height 167.64 cm Toby Quintana Other [employer] Other 04-24-2023 11:15-0400 Body mass index (BMI) [Ratio] 38.73 kg/m2 Toby Quintana Other [employer] Other 04-24-2023 11:15-0400 Body weight 108.86 kg Toby Quintana Other [employer] Other 04-24-2023 11:15-0400 Diastolic blood pressure 79 mm[Hg] Toby Quintana Other [employer] Other 04-24-2023 11:15-0400 Systolic blood pressure 114 mm[Hg] Toby Quintana Other [employer] Other 02-07-2023 09:30-0400 Body height 167.64 cm Toby Quintana Other [employer] Other 02-07-2023 09:30-0400 Body mass index (BMI) [Ratio] 39.99 kg/m2 Toby Quintana Other [employer] Other 02-07-2023 09:30-0400 Body weight 112.4 kg Toby Quintana Other [employer] Other 02-07-2023 09:30-0400 Diastolic blood pressure 68 mm[Hg] Toby Quintana Other [employer] Other 02-07-2023 09:30-0400 Respiratory rate 18 /min Toby Quintana Other [employer] Other 02-07-2023 09:30-0400 SaO2% (BldA) [Mass fraction] 93 % Toby Quintana Other [employer] Other 02-07-2023 09:30-0400 Systolic blood pressure 142 mm[Hg] Toby Quintana Other [employer] Other 01-08-2023 10:00-0500 Body height 167.64 cm Samuel Palisade II Other [employer] Other 01-08-2023 10:00-0500 Body mass index (BMI) [Ratio] 40.19 kg/m2 Samuel Palisade II Other [employer] Other 01-08-2023 10:00-0500 Body weight 112.95 kg Samuel Palisade II Other [employer] Other 12-09-2022 13:25-0500 Body height 167.64 cm Toby Quintana Work Phone: [facility] 250 DO Work Phone: 12-09-2022 13:25-0500 Body mass index (BMI) [Ratio] 40.03 kg/m2 Toby Quintana Work Phone: [facility] 250 DO Work Phone: 12-09-2022 13:25-0500 Body surface area Derived from formula 2.19 m2 Toby Quintana Work Phone: [facility] 250 DO Work Phone: 12-09-2022 13:25-0500 Body weight 112.49 kg Toby Quintana Work Phone: [facility] 250 DO Work Phone: 12-09-2022 13:25-0500 Diastolic blood pressure 80 mm[Hg] Toby Quintana Work Phone: [facility] 250 DO Work Phone: 12-09-2022 13:25-0500 Heart rate 78 /min Toby Quintana Work Phone: [facility] 250 DO Work Phone: 12-09-2022 13:25-0500 Systolic blood pressure 118 mm[Hg] Toby Quintana Work Phone: [facility] [employer] 250 DO Work Phone: 11-22-2022 09:00-0500 Body height 167.64 cm Leeann Blades Other [employer] Other 11-22-2022 09:00-0500 Body mass index (BMI) [Ratio] 39.54 kg/m2 Leeann Blades Other [employer] Other 11-22-2022 09:00-0500 Body weight 111.13 kg Leeann Blades Other [employer] Other 09-04-2021 13:27-0400 Body height 170.18 cm Toby Quintana Work Phone: [facility] 250 DO Work Phone: 09-04-2021 13:27-0400 Body mass index (BMI) [Ratio] 39.78 kg/m2 Toby Quintana Work Phone: [facility] 250 DO Work Phone: 09-04-2021 13:27-0400 Body surface area Derived from formula 2.24 m2 Toby Quintana Work Phone: [facility] 250 DO Work Phone: 09-04-2021 13:27-0400 Body weight 115.21 kg Toby Quintana Work Phone: [facility] 250 DO Work Phone: 09-04-2021 13:27-0400 Diastolic blood pressure 78 mm[Hg] Toby Quintana Work Phone: [facility] 250 DO Work Phone: 09-04-2021 13:27-0400 Heart rate 80 /min Toby Quintana Work Phone: [facility] 250 DO Work Phone: 09-04-2021 13:27-0400 Systolic blood pressure 104 mm[Hg] Toby Quintana Work Phone: [facility] 250 DO Work Phone: Encounters Encounter Date Encounter Type Care Provider Facility Start: 08-12-2024 End: 08-12-2024 ambulatory [facility] Work Phone: Start: 08-12-2024 End: 08-12-2024 Patient encounter procedure [facility] Work Phone: Start: 04-30-2024 End: 04-30-2024 ambulatory [facility] Work Phone: Start: 04-30-2024 End: 04-30-2024 Patient encounter procedure [facility] Work Phone: Start: 03-22-2024 End: 03-22-2024 ambulatory [facility] Work Phone: Start: 03-22-2024 End: 03-22-2024 Patient encounter procedure [facility] Work Phone: Start: 02-10-2024 End: 02-10-2024 ambulatory [facility] Work Phone: Start: 02-10-2024 End: 02-10-2024 Patient encounter procedure [facility] Work Phone: Start: 01-19-2024 End: 01-19-2024 Patient encounter procedure [facility] Work Phone: Start: 01-14-2024 Non-patient / Non-visit [facility] Work Phone: Start: 01-05-2024 Non-patient / Non-visit [facility] Work Phone: Start: 12-30-2023 Patient encounter procedure [facility] Start: 12-30-2023 End: 12-30-2023 ambulatory [facility] Work Phone: Start: 12-30-2023 End: 12-30-2023 Patient encounter procedure [facility] Work Phone: Start: 12-19-2023 End: 12-19-2023 ambulatory Toby Quintana Other [employer] Other Start: 12-19-2023 Telephone encounter Toby Quintana [facility] Start: 12-17-2023 End: 12-17-2023 ambulatory Toby Quintana Other [employer] Other Start: 12-17-2023 Telephone encounter Toby Quintana [facility] Start: 12-16-2023 (Televisit) Televisit Toby Quintana [facility] Start: 12-16-2023 End: 12-16-2023 ambulatory Toby Quintana Other [employer] Other Start: 12-09-2023 End: 12-09-2023 Office outpatient visit 25 minutes Iban Lu MD Work Phone: [facility] Comment on above: Supraventricular tac hycardia by ECG (Primary Dx); Mixed hyperlipidemia; Palpitations; Class II obesity Start: 12-09-2023 End: 12-09-2023 ambulatory IBAN Ashton [facility] Start: 12-08-2023 End: 12-08-2023 ambulatory Toby Quintana Other [employer] Other Start: 12-08-2023 Telephone encounter Toby Quintana [facility] Start: 11-04-2023 End: 11-04-2023 ambulatory Toby Pat Other [employer] Other Start: 11-04-2023 Telephone encounter Toby Pat [facility] Start: 10-21-2023 (Televisit) Televisit Toby Quintana [facility] Start: 10-21-2023 End: 10-21-2023 ambulatory Toby Quintana Other [employer] Other Start: 10-21-2023 End: 10-21-2023 Patient encounter procedure [facility] Work Phone: Start: 10-20-2023 End: 10-20-2023 ambulatory Toby Quintana Other [employer] Other Start: 10-20-2023 Telephone encounter Toby Pat [facility] Start: 09-25-2023 (Televisit) Televisit Toby Quintana [facility] Start: 09-25-2023 End: 09-25-2023 ambulatory Toby Quintana Other [employer] Other Start: 09-22-2023 (Televisit) Televisit Toby Quintana [facility] Start: 09-22-2023 End: 09-22-2023 ambulatory Toby Quintana Other [employer] Other Start: 09-22-2023 Telephone encounter Toby Quintana [facility] Start: 08-20-2023 End: 08-20-2023 ambulatory Toby Quintana Other [employer] Other Start: 08-20-2023 Patient encounter procedure Toby Quintana [facility] Start: 05-22-2023 Telephone encounter Toby eugene Work Phone: [facility] 600 DO Work Phone: Start: 05-12-2023 End: 05-12-2023 ambulatory Toby Quintana Other [employer] Other Start: 05-12-2023 Telephone encounter Toby Quintana [facility] Start: 04-24-2023 End: 04-24-2023 ambulatory Toby Quintana Other [employer] Other Start: 04-24-2023 Office outpatient vi sit 15 minutes Toby Quintana [facility] Start: 04-11-2023 End: 04-11-2023 ambulatory Toby Quintana Other [employer] Other Start: 04-11-2023 Telephone encounter Toby Quintana [facility] Start: 03-13-2023 End: 03-13-[address] EVIN BYERS Facility:UNKNOWN Start: 03-13-[address] Toby Quintana Facility:[id number] Start: 02-07-2023 End: 02-07-2023 ambulatory Toby Quintana Other [employer] Other Start: 02-07-2023 Patient encounter procedure Toby Quintana [facility] Start: 02-03-2023 End: 02-03-2023 ambulatory Leeann Blades Other [employer] Other Start: 02-03-2023 Telephone encounter Leeann Blades [facility] [employer] Start: 01-27-2023 End: 01-27-2023 ambulatory Leeann Blades Other [employer] Other Start: 01-27-2023 Telephone encounter Leeann Blades [facility] Start: 01-21-[address] TOBY QUINTANA [facility] ity:H1 Start: 01-16-2023 End: 01-16-2023 ambulatory Samuel Guajardoisle II Other [employer] Other Start: 01-16-2023 Telephone encounter Samuel Chatman II [facility] [employer] Start: 01-08-2023 FQHC visit new patient Samuel Goodman nayeli II [facility] Start: 01-08-2023 End: 01-08-2023 ambulatory Samuel Chatman II Facility:[facility] Start: 01-08-2023 End: 01-08-2023 ambulatory MD Toby Quintana Work Phone: [facility] Work Phone: Start: 01-08-2023 End: 01-08-2023 Patient encounter procedure MD Toby Quintana Work Phone: [facility] Start: 01-02-2023 End: 01-02-2023 ambulatory Toby Quintana Other [employer] Other Start: 01-02-2023 Telephone encounter Leeann Blades F [facility] Start: 12-30-2022 End: 12-30-2022 ambulatory Leeann Blades Other [employer] Other Start: 12-30-2022 Telephone encounter Leeann Blades F [facility] Start: 12-26-2022 End: 12-26-2022 ambulatory Leeann Blades Other [facility] [employer] Other Start: 12-26-2022 Telephone encounter Leeann Blades F [facility] Start: 12-19-2022 End: 12-19-2022 ambulatory Leeann Blades Other [facility] [employer] Other Start: 12-19-2022 Telephone encounter Leeann Blades F PG [facility] Start: 12-17-2022 End: 12-17-2022 ambulatory Toby Quintana Other [facility] [employer] Other Start: 12-17-2022 Telephone encounter Toby Quintana [facility] Start: 12-10-2022 End: 12-10-2022 ambulatory Toby Quintana Other [facility] [employer] Other Start: 12-10-2022 Telephone encounter Toby Quintana [facility] Start: 12-09-2022 Office outpatient vi sit 25 minutes Toby Quintana Work Phone: [facility] 250 DO Work Phone: Start: 12-09-[address] Iban Lu Facility: Start: 11-25-2022 End: 11-25-2022 ambulatory Leeann Blades Other [facility] [employer] Other Start: 11-25-2022 Telephone encounter Leeann Blades [facility] [employer] Start: 11-22-2022 Office outpatient ne w 45 minutes Leeann Blades [facility] Start: 11-22-2022 End: 11-22-2022 ambulatory Leeann Blades Facility:[facility] Start: 11-22-2022 End: 11-22-2022 ambulatory MD Toby Quintana Work Phone: [facility] Work Phone: Start: 11-22-2022 End: 11-22-2022 Patient encounter procedure MD Toby Quintana Work Phone: [facility] Work Phone: Start: 11-05-2022 Adult health examination Nannette Quintana Other [facility] [employer] Other Start: 11-05-2022 Pre-procedure evalua tion check Toby Quintana Other [facility] [employer] Other Start: 10-04-2022 End: 10-05-[address] SHALA OMER Facility:H1 Start: 09-16-2022 Rx Renewal Toby Quintana Work Phone: [facility] 250 DO Work Phone: Start: 07-24-2022 End: 07-24-[address] TOBY QUINTANA Facility:H1 Start: 07-22-2022 End: 07-22-[address] LAUREL BRAVO Facility:H1 Start: 04-18-2022 Encounter for genera l adult medical examination without abnormal findings DR TOBY QUINTANA [facility] Start: 04-13-2022 End: 04-14-[address] TOBY QUINTANA Facility:H1 Start: 04-12-2022 End: 04-13-[address] TOBY QUINTANA Facility:H1 Start: 04-12-2022 End: 04-13-2022 Encounter for general adult medical examination without abnormal findings DR TOBY QUINTANA Facility:H1 Start: 09-04-2021 FUV, Provider: Iban Lu, Status: Pen, Time: 2:00 PM Toby Quintana Work Phone: [facility] [address] [place] Work Phone: Start: 09-04-2021 Office outpatient vi sit 25 minutes Toby Quintaan Work Phone: [facility] 250 DO Work Phone: Start: 08-30-2021 Rx Renewal Toby Quintana Work Phone: [facility] [address] [place] Work Phone: Procedures [...] procedure 12/09/2024 9:00 AM EST Office Visit [facility] [address] [address] Iban Lu MD [address], [address] [address] [facility] Start: 04-30-2024 Patient referral [facility] Work Phone: Start: 03-22-2024 Patient referral [facility] Work Phone: Start: 01-19-2024 Patient referral [facility] Work Phone: Start: 12-09-2023 End: 12-09-2024 Basic metabolic 2000 panel - Serum or Plasma Basic Metabolic Panel Lab Routine Supraventricular tachycardia by ECG Palpitations Expected: 12/09/2023 (Approximate), Expires: 12/09/2024 [facility] Service Area Work Phone: Comment on above: Expected: 12/09/2023 (Approximate), Expires: 12/09/2024 Start: 12-09-2023 FUV, Provider: Iban Lu, Status: Pen, Time: 10:00 AM FUV, Provider: Iban Lu, Status: Pen, Time: 10:00 [facility] Work Phone: Start: 07-11-2023 COVID-19 Vaccine ( season) COVID-19 Vaccine ( season) [facility] Start: 07-11-2023 Influenza vaccination Influenza Vacc ine (#1) [facility] Start: 09-20-2022 FUV, Provider: Iban Lu, Status: Pen, Time: 2:20 PM FUV, Provider: Iban Lu, Status: Pen, Time: 2:20 PM [facility] 250 DO Work Phone: Start: 09-05-2022 FUV, Provider: Iban Lu, Status: Pen, Time: 11:20 AM FUV, Provider: Iban Lu, Status: Pen, Time: 11:20 AM [facility] Work Phone: Start: 01-19-2006 Zoster Vaccines (1 o f 2) Zoster Vaccines (1 of 2) [facility] Start: 1996 Screening for malign ant neoplasm of breast Mammogram [facility] Start: 01-19-1978 DTaP/Tdap/Td Vaccine s (1 - Tdap) DTaP/Tdap/Td Vaccines (1 - Tdap) [facility] Start: 01-19-1974 Hepatitis C [facility] Start: 01-19-1962 Pneumococcal Vaccine : 65+ Years (1 - PCV) Pneumococcal Vaccine: 65+ Years (1 - PCV) [facility] Start: 1956 Lipid panel Lipid Panel [facility] Start: 1955 Medicare Annual Wellness Visit Medicare Annual Wellness Visit (AWV) [facility] Start: 1956 Screening for malign ant neoplasm of colon [facility] Start: 1956 Screening for osteoporosis Bone Density Scan [facility] Comprehensive metabo lic 2000 panel - Serum or Plasma [facility] Patient referral [facility] Work Phone: [place] Lower extremity v ein - bilateral [facility] Immunizations Immunization Date Immunization Notes Care Provider Fa cility 09-06-2022 Pfizer COVID-19 Vac Bivalent 30 MCG/0.3ML Intramuscular Suspension Toby Quintana Work Phone: [facility] 250 DO Work Phone: 07-02-2021 Pfizer-BioNTech COVI [...] Lf of diphtheria toxoid) Toby Quintana Other [facility] 09-15-2013 tetanus and diphther ia toxoids, adsorbed, preservative free, for adult use (5 Lf of tetanus toxoid and 2 Lf of diphtheria toxoid) Toby Quintana Other [facility] 09-14-2013 influenza, seasonal, injectable Toby Quintana Work Phone: [facility] 09-14-2013 influenza virus vacc ine, unspecified formulation Iban Lu MD Work Phone: [facility] Work Phone: 08-10-2013 influenza virus vacc ine, unspecified formulation Toby Quintana Work Phone: [facility] 250 DO Work Phone: 07-19-2012 influenza virus vacc ine, unspecified formulation Toby Schofield Quintana Work Phone: [facility] 250 DO Work Phone: 11-10-2009 influenza virus vacc ine, unspecified formulation Toby Schofield Quintana Work Phone: [facility] 250 DO Work Phone: 08-10-2009 influenza virus vacc ine, unspecified formulation Toby Schofield Quintana Work Phone: [facility] 250 DO Work Phone: 07-14-2007 pneumococcal polysaccharide vaccine, 23 valent Toby Quintana Other [facility] Payers Date Payer Category Payer Medicare AETNA MEDICARE A ETNA MEDICARE VALUE PLAN [id number] 2023-Present [address] [place] [address] [id number] 2023 Medicare [id number] 2022 Self-pay [id number] 1959 Unknown [id number] 1959 Unknown [id number] 2.16.8 [id number] 1956 Unknown [id number] 1956 Unknown [id number] 1956 Unknown [id number] 1956 Unknown [id number] 1956 Unknown [id number] 1956 Unknown [id number] 1956 Unknown [id number] [id number] 1956 Unknown [id number] [id number] 1956 Unknown [id number] [id number] 1956 Unknown [id number] [id number] Unknown Unknown HCAP/HFA/FAP Active [id number] Unknown [id number] Unknown [id number] Social History Date Type Detail Facility Start: 12-09-2023 No illicit drug use No illicit drug use [address] Work Phone: Comment on above: Coffee 1 cup daily; quit 1987; Start: 1955 Sex Assigned At Female F [facility] Start: 12-09-2023 Sex Assigned At N [facility] [employer] Other Start: 12-09-2023 Tobacco smoking status NHIS Ex-smoker [facility] Work [...] [facility] Work Phone: Start: 11-29-2023 End: 12-09-2023 Exposure to SARS-CoV-2 (event) Not sure [facility] Clinical Notes 11-22-2022 to 03-22-2024 Note Date & Type Note Facility 03-22-2024 Hospital Discharg e instructions Ambulatory OrdersReferral to Orthopedics Time Frame: 03/22/24, Location: None [facility] Work Phone: 12-17-2023 Evaluation note Encounter Date Diagnosis Assessment Notes Dec, Jaw swelling (ICD-10 - R22.0) [employer] Other 02-06-2024 Evaluation note* Encounter Date Diagnosis Assessment Notes Treatment Notes Treatment Clinical Notes Dec, Dental infection (ICD-10 - K04.7) Pt will contact her insurance, find a different dentist. Will continue antibiotic at this time. [employer] Other 01-30-2024 History of Present illness Narrative* [...] follow-up will be scheduled Iban Lu MD, [facility] Review of Systems Cardiovascular: Positive [...] EVENING, Disp: 225 tablet, Rfl: 0 omega 7-hoj-dht-fish oil 360 mg-108 mg- 180 mg-1,200 mg [...] of Iban Lu MD. [facility] Work Phone: [phone]) 679-650301-30-2024 Instructions* Patient Instructions* Nataliya Manning LPN - [...] [facility] Work Phone: [phone]) 414-159012-12-2023 Evaluation note* Encounter Date Diagnosis Assessment Notes Treatment Notes Treatment Clinical Notes Oct, Open fracture of tooth, initial encounter (ICD-10 - S02.5XXB) Keep area clean, brush and rinse frequently. seeing dentist next week. Oct, Lumbar radiculitis (ICD-10 - M54.16) pt requests refill for her chronic back issues. We discussed her treatment plan w Dr. Byers. [employer] Other 11-16-2023 Evaluation note* Encounter Date Diagnosis Assessment Notes Treatment Notes Treatment Clinical Notes Sep, Lumbar radiculitis (ICD-10 - M54.16) CHanged pain med. Jax will call Dr. Byers's office for a change in treatment plan and an appt. Sep, Nausea & vomiting (ICD-10 - R11.2) States that zofran has not helped in the past - phenergan sent in for short term use. [employer] Other 11-13-2023 Evaluation note* Encounter Date Diagnosis Assessment Notes Treatment Notes Treatment Clinical Notes Sep, Radiculopathy, lumbar region (ICD-10 - M54.16) My staff reviewed her case with Dr. Byers's staff. She is to call their office for follow-up appointment next month. Patient does not want another injection and would rather have an ablation. Trial of tramadol sent to pharmacy. OARRS reviewed. [employer] Other 10-11-2023 Evaluation note* Encounter Date Diagnosis Assessment Notes Treatment Notes Treatment Clinical Notes Aug, Pain in right knee (ICD-10 - M25.561) Aug, Other chronic pain (ICD-10 - G89.29) Aug, Pain in left knee (ICD-10 - M25.562) [employer] Other 03-31-2023 Evaluation note* Encounter Date Diagnosis Assessment Notes Treatment Notes Treatment Clinical Notes Jan, Nausea & vomiting (ICD-10 - R11.2) Jan, Pain in right knee (ICD-10 - M25.561) Jan, Other chronic pain (ICD-10 - G89.29) Jan, Pain in left knee (ICD-10 - M25.562) [employer] Other 03-31-2023 Evaluation note* Encounter Date Diagnosis Assessment Notes Treatment Notes Treatment Clinical Notes Jan, Nausea & vomiting (ICD-10 - R11.2) chronic problem - requesting refill on Zofran Jan, Pain in right knee (ICD-10 - M25.561) Jan, Other chronic pain (ICD-10 - G89.29) Jan, Pain in left knee (ICD-10 - M25.562) [employer] Other 03-01-2023 Evaluation note* Encounter Date Diagnosis [...] She would prefer to stay close to [place]. Our office is working to get her referral to pain management near [place]. [employer] Other 01-31-2023 Evaluation note* Encounter Date Diagnosis Assessment Notes Treatment Notes Treatment Clinical Notes Nov, Lumbar pain (ICD-10 - M54.50) [employer] Other 01-13-2023 Evaluation note* Encounter Date Diagnosis Assessment Notes Treatment Notes Treatment Clinical Notes Nov, Low back pain, unspecified back pain laterality, unspecified chronicity, unspecified whether sciatica present (ICD-10 - M54.50) [employer] Other evaluqazti noteNo assessment information available [facility] Work Phone: Evaluation noteNo InformationNort [employer] Other evaluation noteNoTanium Other Evaluation note* Diagnosis Supraventricular tachycardia by ECG- Primary Mixed hyperlipidemia Palpitations Class II obesity documented in this encounter [facility] Work Phone: Evaluation note* Diagnosis Onset Date Resolution Status Fatigue acute Hyperlipidemia acute Lumbar radiculopathy, chronic acute Medicare annual wellness visit, subsequent acute SVT (supraventricular tachycardia) acute [facility] Work Phone: Evaluation note* Diagnosis Onset Date Resolution Status Fatigue acute Hyperlipidemia acute Lumbar radiculopathy, chronic acute Medicare annual wellness visit, subsequent acute SVT (supraventricular tachycardia) acute Lumbar radiculopathy, chronic acute [facility] Work Phone: Evaluation note* Diagnosis Onset Date Resolution Status Fatigue acute Hyperlipidemia acute Lumbar radiculopathy, chronic acute Medicare annual wellness visit, subsequent acute SVT (supraventricular tachycardia) acute Lumbar radiculopathy, chronic acute Left knee pain acute Lumbar radiculopathy, chronic acute Right knee pain acute Left knee pain acute Right knee pain acute [facility] Work Phone: Evaluation note* Diagnosis Onset Date Resolution Status Left knee pain acute Lumbar radiculopathy, chronic acute Right knee pain acute Bilateral cold feet acute Left knee pain acute Right knee pain acute Bilateral lower extremity pain acute Diminished pulses in lower extremity acute PAD (peripheral artery disease) acute [facility] Work Phone: History general Narrative - [...] childbirth Hospitalization History hysterectomy Hospitalization History pancreatitis [facility] Next audience Other History general [facility]ative - [facility] Next audience Other Hospital Discharge instructionsAmbulatory Orders* Referral to Vascular Surgery Time Frame: 04/30/24, Location: None Selected [facility] Work Phone: Reason for referral (narrative)* Consultation (Routine) - Authorized Specialty Diagnoses / Procedures Referred By Contac t Referred To Contact Cardiology Diagnoses Supraventricular tachycardia by ECG Procedures Follow Up In Cardiology Iban Lu MD [address] [facility] [address], [address] [address] Iban Lu MD [address] [facility] 2, [facility] [address] [place] [address] Referral ID Status Reason Start Date Expiration Date V isits Requested Visits Authorized [id number] Authorized 12/09/2023 12/08/2024 1 1 [facility] Work Phone: Reason for visit NarrativePain Medicine Ref[facility] [employer] Other Summary Purpose Family History Unknown Family [...] and provided the patient with 2 local cosmetician apprentice in town. * ASSESSMENT AND PLAN: * [...] will be scheduled * Iban Lu MD, [facility] Chief Complaint and Reason for Visit Chief Complaint xray Chief Complaint Swollen Face, [place]- [phone] Medicare Wellness Reason for Visit Fatigue Hyperlipidemia Lumbar radiculopathy, chronic Medicare annual wellness visit, subsequent SVT (supraventricular tachycardia) Chief Complaint Medicare Wellness Amb Documentation pulled [phone] knee injections Reason for Visit Fatigue Hyperlipidemia Lumbar radiculopathy, chronic Medicare annual wellness visit, subsequent SVT (supraventricular tachycardia) Lumbar radiculopathy, chronic Chief Complaint Medicare Wellness Amb Documentation pulled [phone] knee injections leg swelling - hot cold [...] back pain, unspe cified (M54.50) Referral Organization [facility] Referring Provider First Name [facility] Referring Provider Last Name Blades Referring Provider Specialty Neurologica l Surgery Referred Organization [facility] Referred Provider Albertina Oconnell Referred Address [address] [place], [place],[address] Referred Provider Specialty Pain Medicin e Referral Priority Routine Referral Appointment Date 2023-01-21 General Notes [facility] 023 09:03:40 AM >Received today and waiting for office notes to be locked before sending referral [facility] 01/01/2023 07:37:06 AM >Referral was fax [facility] 01/08/2023 09:26:41 AM >Referral was refax to the correct office with their form Trini Suazo 01/08/2023 02:11:33 PM >received letter, pt has appt scheduled for 01/21/2023 Clinical Notes Phone: Reason 01/08/23 @ 10:00am Evaluate and Treat Hip Pain Diagnosis 1 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) Referral Organization [facility] Referring Provider First Name Leeann Referring Provider Last Name Blades Referring Provider Specialty Neurologica l Surgery Referred Organization [facility] [facility] Referred Provider Samuel Chatman II Referred Address [address],[place],[address] Referred Provider Specialty Orthopaedic Surgery Referral Priority Routine Referral Appointment Date 2023-01-08 General Notes [facility] 023 10:20:34 AM >Received today and sent P2P [facility] 01/01/2023 12:05:35 PM >Patient was scheduled [facility] 01/15/2023 09:30:10 AM >Office notes not locked yet [facility] 01/16/2023 08:43:03 AM >Sent telephone encounter to referring physician to let them know that the consult letter is ready for their review Reason DECLINED lumbar an d knee pain Diagnosis 1 Lumbar pain (M54.50) Referral Organization [facility] Referring Provider First Name Toby Referring Provider Last Name Pat Referring Provider Specialty [facility] Referred Organization [facility] Referred Provider Paddy De Los Santos Referred Address [address] [place]ette Michael,[place],[address] Referred Provider Specialty Rheumatology Referral Priority Routine [...] section and content) DATE CREATED AUTHOR 09/23/2019 [facility] DATE CREATED AUTHOR AUTHOR'S ORGANIZ ATION 11/04/2019 [facility] DATE CREATED AUTHOR AUTHOR'S ORGANIZ ATION 05/31/2020 [facility] DATE CREATED AUTHOR AUTHOR'S ORGANIZ ATION 12/06/2020 [facility] DATE CREATED AUTHOR AUTHOR'S ORGANIZ ATION 04/21/2021 [facility] DATE CREATED AUTHOR AUTHOR'S ORGANIZ ATION 12/10/2022 [facility] DATE CREATED AUTHOR AUTHOR'S ORGANIZ ATION 01/10/2023 [facility] DATE CREATED AUTHOR AUTHOR'S ORGANIZ ATION 01/17/2023 [facility] DATE CREATED AUTHOR AUTHOR'S ORGANIZ ATION 03/18/2023 [facility] DATE CREATED AUTHOR AUTHOR'S ORGANIZ ATION 06/09/2023 [facility] DATE CREATED AUTHOR AUTHOR'S ORGANIZ ATION 07/08/2024 [facility] [employer] Teams (unrecognized sec tion and content) Team Status: Inactive Member Role Status Dates Toby Quintana MD Primary Care Provider Active Leeann Quintana Attending Provider Active Team Status: Active Member Role Status Dates Toby Quintana MD Primary Care Provider Active Team Status: Inactive Member Role Status Dates Toby Quintana MD Primary Care Provider Active Samuel Chatman II, MD Attending Provider Active Sr. Operations Manager Relationship Specialty Start Date End Date [...] Team Status: Active Member Role Status Dates oTby Quintana MD Primary Care Provide r, Attending [...] BE BASED ON THE PRIMARY CLINICAL RECORDS. [facility] [employer] [facility]. provides no warranty or guarantee of the accuracy or completeness of information in this document.
--- NOTE | 2024-09-06 14:02 | P.HP_ITS ---
HPI H&P: HPI History of Present Illness Chief complaint: VERTIGO, BILAT CHRONIC KNEE PAIN, N/V Narrative: Patient is a 69 y.o white female with past medical history of Tachycardia, anxiety and chronic back and knee pain from severe OA. She reports she has been to see pain management, orthopedics and her PCP over her knee pain. She has gained weight over the last 1-2 years. Corticosteroid injections have not helped her pain. She has also had ablations done on her back. She tries her best to remain pain free by being bed ridden and using 2 canes to get in her bathroom to toilet. She otherwise uses a rolling walker and knee pads. She rarely goes out of her house unless it's to Doctor's appointments as she can barely walk on her knees. Lyrica helps but sometimes the pain is so bad she develops nausea and vomiting. She has been on oxycodone before which helped at times. She came to the ER today for N/V and pain in her knees. When I came to examine her she had just vomited. She uses a bed stephenson at home. ER findings: Chest X-ray, CBC and cmp all within normal limits. Patient was given pain medication and fell asleep and her oxygen saturations dropped <88% so was placed on 2L NC. Patient was admitted for further plan of care. She denies any history of sleep apnea but has never had a sleep study, significant weight gain over the last few years. Opioid HPI Opioid Management Most Recent Pain and Opioid Data: Last Pain Scale 9 09/06/24 14:00 09/06/24 Last Pain Assessment 09/06/24 15:00 Last MAR Pain Assessment 09/06/24 09:45 Last ORT Total Score 1 09/06/24 13:46 09/06/24 Last ORT Risk Category Low Risk 09/06/24 13:46 09/06/24 Review of Systems ROS Narrative ROS: a complete review of systems were reviewed with patient and are positive as below or listed in History of Chief Complaint. General: no fever, chills, night sweats Head: no headache, trauma, visual changes, nausea or vomiting Skin: no reported rashes, itching or sores Eyes: no blurriness of vision Ears: no reported hearing loss, vertigo, earache, or tinnitus Throat: no sore throat, hoarseness, swelling of neck, or tongue pain Heart: no chest pain Lungs: no shortness of breath or cough GI: no diarrhea , but vomiting/nausea Urinary: no urinary urgency, frequency or pain Neuro: numbness or tingling of both hips, thighs at at times, pain in both knees HEM: no bleeding issues or bruising ENDO: no thyroid problems Psych: anxiety and depression PFSH PFS Medical History (Updated 09/06/24 @ 15:56 by Debbie Jeffers DO) Tachycardia ?R00.0 - Tachycardia, unspecified (ICD-10) Surgical History Previous back surgery ?Z98.890 - Other specified postprocedural states (ICD-10) History of cardiac radiofrequency ablation ?Z98.890 - Other specified postprocedural states (ICD-10) Social History Within the past year, how often did you have a drink containing alcohol: monthly or less Within the past year, how many standard drinks containing alcohol did you have on a typical day: 1 or 2 Within the past year, how often did you have six or more drinks on one occasion: never Total score: 0 Score interpretation: A score less than 3 is consistent with normal alcohol consumption. Smoking status: Never smoker Non-prescribed substance use: denies use Highest level of school completed/degree received: Associate degree: academic program Do you want help with school or training: No Are you now , , , , never or living with a partner: In a typical week, how many times do you talk on the telephone with family, friends, or neighbors: once per week How often do you get together with friends or relatives: once per week How often do you attend christianity or evangelical services: never Do you belong to any clubs or organizations such as christianity groups unions, fraternal or athletic groups, or school groups: no Total score: 1 Score interpretation: A score of less than or equal to 1 indicates the most socially isolated. Little interest or pleasure in doing things: more than half the days Feeling down, depressed, or hopeless: more than half the days Feel stressed/tense/nervous/anxious/difficulty sleeping: very much Life stressors: other Life stressor details: Not being able to walk Due to disability, difficulty making decisions: No Meds Home Medications and Allergies Home Medications ?Medication ?Instructions ?Recorded ?Confirmed ?Type alprazolam 1 mg tablet 1 mg PO DAILY 05/16/23 09/06/24 History atenolol 50 mg tablet 50 mg PO QPM 05/16/23 09/06/24 History atenolol 25 mg tablet 25 mg PO QAM 09/06/24 09/06/24 History pregabalin 50 mg capsule 50 mg PO Q8H 09/06/24 09/06/24 History Allergies Allergy/AdvReac Type Severity Reaction Status Date / Time Sulfa (Sulfonamide Allergy Intermediate Redness of Verified 09/06/24 08:56 Antibiotics) Skin Exam Narrative Exam Narrative: General: Patient is alert, and oriented to person, place and time with normal affect, morbid obesity Skin: no visible rashes, or ulcers Head: atraumatic, acephalic Eyes: PERRLA, no nystagmus present, conjunctiva clear, no scleral icterus Ears: normal gross auditory acuity Heart: Normal rate and rhythm, no murmurs/rubs/gallops Lungs: no audible wheezes, crackles and normal breath sounds all lung briones Abdomen: Normal audible bowel sounds, no distension, No palpable masses, no organomegaly, no rebound/guarding/ or rigidity Musculoskeletal: no swelling bilateral lower extremities, bony deformities noted on both knees with pain to palpation in the medial and lateral compartments, no posterior pain Neuro: CN II-X grossly intact Constitutional Vital Signs, click to edit/add: Last Vital Signs Temp 97.8 F 09/06/24 08:56 Pulse 83 09/06/24 13:55 Resp 18 09/06/24 11:51 BP 120/70 09/06/24 11:51 Pulse Ox 94 L 09/06/24 11:51 O2 Del Method Nasal Cannula 09/06/24 11:51 O2 Flow Rate 2 09/06/24 11:51 Results Labs Labs: Short CBC 09/06/24 Range/Units 09:30 WBC 5.5 (4.0-11.0) 10^3/uL Hgb 14.3 (12.0-16.0) g/dL Hct 43.8 (36.0-48.0) % Plt Count 194 (150-450) 10^3/uL BMP 09/06/24 09:30 Sodium 145 Potassium 4.2 Chloride 108 H Carbon Dioxide 28.1 BUN 8.0 Creatinine 0.72 Glucose 96 Calcium 9.4 Cardiac Enzymes 09/06/24 Range/Units 09:30 Total Creatine Kinase 37 (26-192) U/L Liver Function 09/06/24 Range/Units 09:30 Total Bilirubin 0.7 (0.2-1.0) mg/dL AST 40 H (15-37) U/L ALT 27 (14-59) U/L Alkaline Phosphatase 105 (46-116) U/L Albumin 3.0 L (3.4-5.0) g/dL Assessment and Plan Assessment and Plan (1) Intractable neuropathic pain of knee: Assessment and Plan: continue lyrica, will get UDS, place on oxycodone. Patient has appointment with Ortho, Dr Hicks on Sep 14; I reviewed knee xrays from april which showed severe OA (2) Hypoxia, sleep related: Assessment and Plan: currently requiring oxygen 2L NC drops to 88% when sleeping. Will need outpatient sleep study. Viral testing negative, Chest xray negative, no prior lung history (3) Nausea & vomiting: Assessment and Plan: from pain? treat with zofran as needed. Qualifiers: Vomiting type: unspecified Qualified Code(s): R11.2 - Nausea with vomiting, unspecified (4) Tachycardia: Assessment and Plan: continue atenolol Plan Patient is a full code continue lovenox for DVT prophylaxis PT/OT evaluations patient is in observation status and is not expected to cross 2 midnights.
[2024-09-06] MEDS: PREGABALIN 50 MG CAPSULE PO ×2 (15:17→21:38)
[2024-09-06] MEDS: ENOXAPARIN SODIUM 40 MG/0.4 ML SYRINGE SUBQ (17:01)
[2024-09-06] MEDS: PROMETHAZINE HCL 25 MG TABLET PO (17:01)
[2024-09-06 19:27] LABS: Amphetamine Screen Urine NEGATIVE (NEGATIVE); Barbiturates Screen Urine NEGATIVE (NEGATIVE); Benzodiazepines Screen Urine POSITIVE (NEGATIVE); Buprenorphine Screen Urine NEGATIVE (NEGATIVE); Cannabinoid Screen Urine NEGATIVE (NEGATIVE); Cocaine Screen Urine NEGATIVE (NEGATIVE); Methadone Screen Urine NEGATIVE (NEGATIVE); Methamphetamines Screen Urine NEGATIVE (NEGATIVE); Opiate Screen Urine NEGATIVE (NEGATIVE); Oxycodone Screen Urine POSITIVE (NEGATIVE); Phencyclidine Screen Urine NEGATIVE (NEGATIVE); Tricyclic Antidepressant Urine NEGATIVE (NEGATIVE)
[2024-09-06] MEDS: ALPRAZOLAM 1 MG TABLET PO (20:24)
[2024-09-06] MEDS: KETOROLAC TROMETHAMINE 30 MG/ML VIAL 15 MG IVP (20:24)
[2024-09-06] MEDS: ATENOLOL 50 MG TABLET PO (20:25)
[2024-09-07] VITALS (11 sets, daily range): BP systolic 107–118; BP diastolic 53–64; PULSE 66–74; TEMP 36.4–36.6; O2SAT 90–93
--- NOTE | 2024-09-07 01:09 | PC.NURSE ---
unABLEtodobecasuept unable to stand andbewar
--- NOTE | 2024-09-07 01:10 | PC.NURSE ---
unable to bear weight to do ortho BP;'s
[2024-09-07] MEDS: PREGABALIN 50 MG CAPSULE PO (05:38)
[2024-09-07] MEDS: KETOROLAC TROMETHAMINE 30 MG/ML VIAL 15 MG IVP (05:41)
[2024-09-07] MEDS: OXYCODONE HCL/ACETAMINOPHEN 5MG/325MG 1 TAB PO (06:20)
[2024-09-07 07:06] LABS: Basophils Percent Auto 0.7 % (0.2-2.0); Eosinophils Absolute Auto 0.2 10^3/uL (0.0-0.7); Eosinophils Percent Auto 4.9 % (0.9-7.0); Hematocrit 40.4 % (36.0-48.0); Immature Granulocytes Abs Auto 0.01 10^3/uL (0.00-0.03); Immature Granulocytes Pct Auto 0.2 % (0.0-0.5); Lymphocytes Percent Auto 22.4 % (20.5-60.0); Mean Corpuscular HGB Conc 32.2 g/dL (29.9-35.2); Mean Corpuscular Hemoglobin 27.8 pg (26.7-34.0); Mean Corpuscular Volume 86.5 fL (81.0-99.0); Mean Platelet Volume 10.2 fL (9.5-13.5); Monocytes Absolute Auto 0.5 10^3/uL (0.3-0.8); Monocytes Percent Auto 10.2 % (1.7-12.0); Neutrophils Absolute Auto 2.8 10^3/uL (1.4-6.5); Neutrophils Percent Auto 61.6 % (43.0-75.0); Platelet Count 172 10^3/uL (150-450); Red Blood Count 4.67 10^6/uL (4.20-5.40); Red Cell Distribution Width 13.3 % (11.0-15.0); White Blood Count 4.5 10^3/uL (4.0-11.0)
[2024-09-07 07:12] LABS: Anion Gap 9.9; BUN Creatinine Ratio 13.2; Calcium 8.7 mg/dL (8.5-10.1); Chloride 107 mmol/L (98-107); Estimated GFR (African America >60 (>=60 mL/min/1.73m^2); Estimated GFR (Non-African Ame >60 (>=60 mL/min/1.73m^2); Glucose 86 mg/dL (74-106); Potassium 3.9 mmol/L (3.5-5.1); Sodium 146 mmol/L (136-145)
--- NOTE | 2024-09-07 08:35 | PM.DS1 ---
DS: Providers Provider Date of admission: 09/06/24 13:15 Primary care physician: Connie Stewart MD Admitting clinician: Debbie Jeffers Consults: 09/06/24 12:45 Occupational Therapy Eval and Treat Routine Reason for consultation: weakness and pain Has provider been notified: No Physical Therapy Eval and Treat Routine Reason for consultation: weakness and pain Has provider been notified: No Discharging clinician: Debbie Jeffers DS: Diagnosis Discharge Diagnosis (1) Intractable neuropathic pain of knee: (2) Hypoxia, sleep related: (3) Nausea & vomiting: Qualifiers: Vomiting type: unspecified Qualified Code(s): R11.2 - Nausea with vomiting, unspecified (4) Tachycardia: DS: Summary Hospital Course Hospital Course: Patient is a 69 y.o white female with past medical history of Tachycardia, anxiety and chronic back and knee pain from severe OA. She reports she has been to see pain management, orthopedics and her PCP over her knee pain. She has gained weight over the last 1-2 years. Corticosteroid injections have not helped her pain. She has also had ablations done on her back. She tries her best to remain pain free by being bed ridden and using 2 canes to get in her bathroom to toilet. She otherwise uses a rolling walker and knee pads. She rarely goes out of her house unless it's to Doctor's appointments as she can barely walk on her knees. Lyrica helps but sometimes the pain is so bad she develops nausea and vomiting. She has been on oxycodone before which helped at times. She came to the ER for N/V and pain in her knees. ER findings: Chest X-ray, CBC and cmp all within normal limits. Patient was given pain medication and fell asleep and her oxygen saturations dropped <88% so was placed on 2L NC. Patient was admitted for further plan of care. She denies any history of sleep apnea but has never had a sleep study, significant weight gain over the last few years. Her pain was controlled with Percocet. At the time of discharge patient was getting up using a walker with PT. Her nausea/vomiting had subsided. I reviewed the risks of narcotic medications when taking along with benzodiazepines and Lyrica could lead to respiratory depression and . Urine drug screen was performed. Patient accepts her risks. I will provide patient with 1 week of Percocet 2/325mg PO BID #14 until she can be evaluated with ortho on Sep 14. I have also sent in prescription of Narcan if needed. She will have close follow up with PCP who should evaluate her for sleep apnea with sleep study and also consider a daily controller medication for her depression. Patient may return to the ER with any worsening signs or symptoms. Status at Discharge Functional status at discharge: uses cane/walker Overall status at discharge: patient is progressing back to baseline Time Spent with Patient Time attestation: Total time spent providing and/or coordinating discharge services: Time spent: greater than 30 minutes Exam Narrative Exam Narrative: General: Patient is alert, and oriented to person, place and time with normal affect, morbid obesity Skin: no visible rashes, or ulcers Head: atraumatic, acephalic Eyes: PERRLA, no nystagmus present, conjunctiva clear, no scleral icterus Ears: normal gross auditory acuity Heart: Normal rate and rhythm, no murmurs/rubs/gallops Lungs: no audible wheezes, crackles and normal breath sounds all lung briones Abdomen: Normal audible bowel sounds, no distension, No palpable masses, no organomegaly, no rebound/guarding/ or rigidity Musculoskeletal: no swelling bilateral lower extremities, bony deformities noted on both knees with pain to palpation in the medial and lateral compartments, no posterior pain Neuro: CN II-X grossly intact Constitutional Vital Signs, click to edit/add: Last Vital Signs Temp 97.5 F L 09/07/24 08:13 Pulse 66 09/07/24 08:13 Resp 18 09/07/24 08:13 BP 116/64 09/07/24 08:13 Pulse Ox 93 L 09/07/24 08:13 O2 Del Method Room Air 09/07/24 08:13 O2 Flow Rate 1 09/07/24 03:08 FiO2 1 09/06/24 23:40 DS: Data Data Completed and Pending Labs on day of discharge: Labs from last 24 hours 09/07/24 09/06/24 09/06/24 06:14 19:00 09:30 WBC 4.5 5.5 RBC 4.67 5.12 Hgb 13.0 14.3 Hct 40.4 43.8 MCV 86.5 85.5 MCH 27.8 27.9 MCHC 32.2 32.6 RDW 13.3 13.3 Plt Count 172 194 MPV 10.2 9.8 Neut % (Auto) 61.6 54.1 Lymph % (Auto) 22.4 30.1 [place] % (Auto) 10.2 11.8 Eos % (Auto) 4.9 3.3 Baso % (Auto) 0.7 0.5 Neut # (Auto) 2.8 3.0 Lymph # (Auto) 1.0 L 1.7 [place] # (Auto) 0.5 0.7 Eos # (Auto) 0.2 0.2 Baso # (Auto) 0.0 0.0 Abs Immat Gran (auto) 0.01 0.01 Imm/Tot Granulo (auto) 0.2 0.2 Sodium 146 H 145 Potassium 3.9 4.2 Chloride 107 108 H Carbon Dioxide 33.0 H 28.1 Anion Gap 9.9 13.1 BUN 9.0 8.0 Creatinine 0.68 0.72 Est GFR ( Amer) >60 >60 Est GFR (Non-Af Amer) >60 >60 BUN/Creatinine Ratio 13.2 11.1 Glucose 86 96 Calcium 8.7 9.4 Magnesium 2.0 Total Bilirubin 0.7 AST 40 H ALT 27 Alkaline Phosphatase 105 Total Creatine Kinase 37 Total Protein 6.7 Albumin 3.0 L Globulin 3.7 Albumin/Globulin Ratio 0.8 Urine Opiates Screen Negative Ur Buprenorphine Scrn Negative Ur Oxycodone Screen Positive A Urine Methadone Screen Negative Ur Barbiturates Screen Negative U Tricyclic Antidepress Negative Ur Phencyclidine Scrn Negative Ur Amphetamines Screen Negative U Methamphetamines Scrn Negative U Benzodiazepines Scrn Positive A Urine Cocaine Screen Negative U Cannabinoids Screen Negative Discharge Plan Discharge Disposition: Home Health Service Condition: Fair Plan of Treatment: she may take Miralax 1 capful daily and Docusate 100mg PO BID PRN for constipation. Discharge Medications: New oxycodone-acetaminophen 5-325 mg Tablet 1 tab PO Q12H PRN (Reason: Pain) 7 Days Qty: 14 0RF naloxone 0.4 mg/mL solution 0.4 mg subcut Q3M PRN (Reason: opioid reversal) Qty: 10 0RF Rx Instructions: NTExceed 10 mg total dose/episode Continued alprazolam 1 mg tablet 1 mg PO BID PRN (Reason: anxiety) atenolol 50 mg tablet 50 mg PO QPM Rx Instructions: 25 mg in morning 50 mg at night; atenolol 25 mg tablet 50 mg PO QAM pregabalin 50 mg capsule 50 mg PO Q8H Activity: ambulate only with your walker Diet: advance to your usual diet Print Language: Vietnamese Forms: Portal Instructions Follow Up Appointments: Sep.13 @ 10:30am with Dr. Setwart [phone] [facility] appt Sep 14- Dr. Clarke Discharge location: Home with [facility]
[2024-09-07 08:51] LABS: Erythrocyte Sedimentation Rate 83 mm/hr (<=30)
[2024-09-07 09:00] LABS: C Reactive Protein 0.79 mg/dL (<=0.50)
[2024-09-07] MEDS: ATENOLOL 25 MG TABLET PO (09:40)
[2024-09-07] MEDS: ALPRAZOLAM 1 MG TABLET PO (09:40)
--- NOTE | 2024-09-07 11:08 | SWNOTE1 ---
SW did receive a call from physical therapy. Had concerns about her conversation with pt yesterday. Possible need for counseling services. ELLY met with pt to discuss dc needs. Pt lives at home with her second . Pt lost her first suddenly and unexpectedly. Her daughter was 9 years old when she lost her first . She did go to counseling after she lost her first . She voiced it was alright, have to find the right counselor. Pt then spoke about finding her other . She stated she is very close with her grand-daughter, but butts heads with her daughter. SW then spoke about her back surgeries and her pain. She voiced that the surgeon messsed up her second back surgery and there is nothing anyone can do. She stated it now goes to her knees. She has an appointment with ortho next week to discuss her knees. She stated she is sure they will tell her she needs bilateral knee surgery. She is not sure if she will do it due to the risks. Pt voiced during one of her back surgeries her heart stopped and she had to be intubated. She has concerns about never waking up again after surgery. Pt spoke about being tired of all the pain and dealing with it. She spoke about God and trusting his plan. She stated, the pain can be so bad, she wants to end her life. I would never do that though. My grand-daughter means to much to me. I would never end my life. ELLY then asked pt if she had any suicidal thoughts? She stated no. SW asked if she had a plan? She stated no, she would never do that. ELLY and pt then spoke about counseling again. At this time Dr. Jeffers came in room. SW to stop back in with counseling information.
--- NOTE | 2024-09-07 11:59 | CM.NOTE ---
Rounds made with Dr. Jeffers, discussed discharge to home with patient. Dr. Jeffers discussed pain medications and importance of taking them as directed. Pt will f/u with PCP next week. PT will evaluate pt prior to discharge.
--- NOTE | 2024-09-07 13:04 | SWNOTE1 ---
Medicare Outpatient Observation Notice reviewed and discussed with patient. Pt. verbalized understanding and signed the form. Original given to patient and copy placed in patient?s chart.
--- NOTE | 2024-09-07 13:04 | SWNOTE1 ---
SW went back in room and provided pt a list of counseling services in the area. SW and pt also spoke about home health coming in for a short time. Pt is agreeable to home health. SW provided pt with a list from Medicare.gov with star ratings. Pt would like [facility]. Referral sent to [facility]. Referral included face sheet, ED note, H&P, provider notes,, and PT/OT notes.
--- NOTE | 2024-09-07 13:28 | SWNOTE1 ---
SW received call back from [facility] and they are accepting pt. They will be out within 24-48 hours of discharge.
--- NOTE | 2024-09-08 13:32 | CM.DCFOLLOWU ---
Person spoke with:patient How are you feeling? not the greatest How is your pain? bad Did you understand your discharge instructions?yes Do you have any questions about your discharge instructions? no Were you given any prescriptions at discharge? yes Were you able to get your prescriptions filled? yes Do you understand how to take your medications as ordered?no Do you have any questions about your follow up appointment and do you plan to keep your follow up appointment? no questions, follow ups reviewed. Advised to come back to the ED if pain continues or gets worse Is there anything else that you would like to discuss?no Questions/Comments/Concerns/Other: none
== END 2024-09-07 13:51 | disposition home health service (06) ==
LOC: ER 12:13 → MS 13:44
PROVIDERS: Admitting Provider Family Medicine; Emergency Provider Emergency Medicine; PCP Family Medicine; Visit Provider Family Medicine
DX: M25.562 Pain in left knee (principal); M25.561 Pain in right knee; R11.2 Nausea with vomiting, unspecified; R00.0 Tachycardia, unspecified; G47.34 Idiopathic sleep related nonobstructive alveolar hypoventilation; M54.9 Dorsalgia, unspecified; M17.0 Bilateral primary osteoarthritis of knee; R42 Dizziness and giddiness; G89.29 Other chronic pain; S40.011A Contusion of right shoulder, initial encounter; N39.0 Urinary tract infection, site not specified; S80.12XA Contusion of left lower leg, initial encounter; W19.XXXA Unspecified fall, initial encounter; R53.1 Weakness; Z74.01 Bed confinement status; F41.9 Anxiety disorder, unspecified; Z79.899 Other long term (current) drug therapy
CPT/HCPCS: 36415; 70450; 71045; 72131; 73030; 73590; 80048; 80053; 80307; 81001; 82550; 83735; 84443; 84484; 85025; 85610; 85652; 86140; 87086; 93005; 94761; 96372; 96374; 96375; 96376; 97162; 97165; 97530; 99285; G0378; J1650; J1885; J2405; Q0169

== ENCOUNTER 2024-09-07 15:37 | Emergency (ER) | payer MEDICARE, SELFPAY ==
[2024-09-07 15:42] VITALS: BP 140/88; PULSE 76; TEMP 36.7; O2SAT 93; BMI 37.1
--- NOTE | 2024-09-07 15:50 | XR_ITS ---
The [address] [address] Patient Name: INDERJIT MANN MRN: [id number] date: 1955 Sex: F Assigned Patient Location: ER Current Patient Location: ER Accession/Order Number: [id number] Exam Date: 09/07/2024 16:50 Report Date: 09/07/2024 18:46 At the request of: JASSI ZUNIGA Procedure: XR tibia fibula JI 2V EXAM: XR tibia fibula JI 2V HISTORY: The patient is a 69-year-old female, fall COMPARISON: None. FINDINGS: The right tibia and fibula, and the left tibia and fibula, are radiographically negative with no evidence of fracture, cortical lucencies, or other osseous abnormalities. There is evidence of osteoarthritis of both knees. XR/XR tibia fibula JI 2V IMPRESSION: No radiographic findings of acute trauma of the bilateral tibias/fibulas. Electronically authenticated by: CARLOS JOHNSON Date: 09/07/2024 18:46
--- NOTE | 2024-09-07 15:50 | XR_ITS ---
The [address] [address] Patient Name: INDERJIT MANN MRN: [id number] date: 1955 Sex: F Assigned Patient Location: ER Current Patient Location: ER Accession/Order Number: [id number] Exam Date: 09/07/2024 16:50 Report Date: 09/07/2024 18:44 At the request of: JASSI ZUNIGA Procedure: XR shoulder RT min 2V EXAM: XR shoulder RT min 2V HISTORY: The patient is a 69-year-old female, fall COMPARISON: None. FINDINGS: No fractures or dislocations are seen within or around the right shoulder. The glenohumeral joint is relatively aligned. Osteophytes arise from the inferior humeral head. The acromioclavicular joint is maintained. The subacromial space is maintained. XR/XR shoulder RT min 2V IMPRESSION: No radiographic findings of acute trauma of the right shoulder. Electronically authenticated by: CARLOS JOHNSON Date: 09/07/2024 18:44
--- NOTE | 2024-09-07 15:50 | CT_ITS ---
[address] [address] Patient Name: INDERJIT MANN MRN: [id number] date: 1955 Sex: F Assigned Patient Location: ER Current Patient Location: ER Accession/Order Number: [id number] Exam Date: 09/07/2024 16:29 Report Date: 09/07/2024 17:40 At the request of: JASSI ZUNIGA Procedure: CT lumbar spine wo con EXAM: CT lumbar spine wo con TECHNIQUE: Axial CT images were obtained through the lumbar spine along with sagittal and coronal reformatted images. Dose reduction techniques were achieved by using automated exposure control and/or adjustment of mA and/or kV according to patient size and/or use of iterative reconstruction technique. HISTORY: fall COMPARISON: 02/23/2024 FINDINGS: Bones: No acute fracture. Prior posterior pedicle screw and eusebia fixation from L2 through L4. Alignment: No acute traumatic subluxation. Slight degenerative retrolisthesis of L1 on L2 which is stable. Arthritic changes: Stable moderate to severe degenerative disc disease at L1-L2. Severe degenerative facet change bilaterally at L5-S1, right greater than left. Disc spaces: No gross disc herniation given limitation of CT scan. Soft tissues: No soft tissue mass or large hematoma. CT/CT lumbar spine wo con IMPRESSION: No acute findings. Chronic findings, as above. Electronically authenticated by: SHANITA BARRETT Date: 09/07/2024 17:40
--- NOTE | 2024-09-07 15:51 | CT_ITS ---
The [address] [address] Patient Name: INDERJIT MANN MRN: [id number] date: 1955 Sex: F Assigned Patient Location: ER Current Patient Location: ER Accession/Order Number: [id number] Exam Date: 09/07/2024 16:29 Report Date: 09/07/2024 17:13 At the request of: JASSI ZUNIGA Procedure: CT head/brain wo con EXAM: CT head/brain wo con HISTORY: Fall COMPARISON: CT brain 05/16/2023. TECHNIQUE: Axial CT scans through the head were obtained without IV contrast administration. Dose reduction techniques were achieved by using: automated exposure control and/or adjustment of mA and /or kV according to patient size and/or use of iterative reconstruction technique. FINDINGS: There is no acute intracranial hemorrhage or abnormal extra-axial fluid collection. No mass effect or midline shift is seen. There is no evidence of large acute territorial infarction. There is no hydrocephalus. There is mild cortical atrophy with frontal predominance. To the limit of CT, the posterior fossa appears unremarkable. There are physiologic mineralization of bilateral basal ganglia. The calvaria and extra cranial soft tissues are unremarkable. The visualized orbits show no abnormality. The visualized paranasal sinuses show no air-fluid level. Mastoid air cells are clear. CT/CT head/brain wo con IMPRESSION: No acute intracranial process. Electronically authenticated by: GABY SHELTONU Date: 09/07/2024 17:13
--- NOTE | 2024-09-07 15:52 | ED.WEAKNESS1 ---
HPI - Weakness General Chief complaint: Weakness Stated complaint: General Weakness, Fall Time Seen by Provider: 09/07/24 15:41 Source: patient Mode of arrival: ambulance Limitations: no limitations History of Present Illness HPI Narrative: Patient is a 69-year-old female who returns to the emergency department by EMS after a fall at home. Patient was seen in this emergency department yesterday for intractable back and bilateral knee pain. She was found to be unsuitable for discharge due to dizziness, unsteadiness and was admitted overnight for pain control. She apparently was able to complete physical therapy and Occupational Therapy today so she was discharged home. On returning home with her , the patient was unable to get into her home and walk up to 3 steps into the home. She fell, injuring her back, right shoulder and left lower leg. She complains of continued bilateral knee pain, left saxena pain, right shoulder pain and back pain. She is unsure if she hit her head. At initial interview, the patient is drowsy but able to answer questions and follow commands. She is generally weak and states that she just wants to go home and sleep . She has an upcoming appointment with orthopedics in [place] that she states she has been waiting 3 months for so she is hesitant to be placed in a rehab or penitentiary facility. She was prescribed Percocet at discharge, but states that she has not filled the prescription yet. Related Data Home Medications ?Medication ?Instructions ?Recorded ?Confirmed alprazolam 1 mg tablet 1 mg PO BID PRN anxiety 05/16/23 09/07/24 atenolol 50 mg tablet 50 mg PO QPM 05/16/23 09/07/24 atenolol 25 mg tablet 50 mg PO QAM 09/06/24 09/07/24 pregabalin 50 mg capsule 50 mg PO Q8H 09/06/24 09/07/24 Previous Rx's ?Medication ?Instructions ?Recorded ciprofloxacin HCl 500 mg tablet 500 mg PO Q12H #14 tabs 09/07/24 naloxone 0.4 mg/mL injection 0.4 mg subcut Q3M PRN opioid 09/07/24 solution reversal #10 mL oxycodone-acetaminophen 5 mg-325 1 tab PO Q12H PRN Pain 7 days #14 09/07/24 mg tablet tabs Allergies Allergy/AdvReac Type Severity Reaction Status Date / Time Sulfa (Sulfonamide Allergy Intermediate Redness of Verified 09/06/24 08:56 Antibiotics) Skin Review of Systems ROS Constitutional Denies: fever or chills Ears, nose, mouth, and throat Denies: throat pain Cardiovascular Denies: chest pain Respiratory Denies: shortness of breath Gastrointestinal Denies: nausea or vomiting Musculoskeletal Reports: back pain, extremity pain, joint pain and limited range of motion; Denies: neck pain Integumentary/Breast Denies: rash Neurological Reports: weakness in extremities; Denies: numbness in extremities Hematologic/Lymphatic Denies: easy bruising or easy bleeding [facility] Medical History (Updated 09/07/24 @ 18:59 by SILVIO Crocker) Tachycardia ?R00.0 - Tachycardia, unspecified (ICD-10) Surgical History Previous back surgery ?Z98.890 - Other specified postprocedural states (ICD-10) History of cardiac radiofrequency ablation ?Z98.890 - Other specified postprocedural states (ICD-10) Social History Within the past year, how often did you have a drink containing alcohol: monthly or less Within the past year, how many standard drinks containing alcohol did you have on a typical day: 1 or 2 Within the past year, how often did you have six or more drinks on one occasion: never Total score: 0 Score interpretation: A score less than 3 is consistent with normal alcohol consumption. Smoking status: Never smoker Non-prescribed substance use: denies use Highest level of school completed/degree received: Associate degree: academic program Do you want help with school or training: No Are you now , , , , never or living with a partner: In a typical week, how many times do you talk on the telephone with family, friends, or neighbors: once per week How often do you get together with friends or relatives: once per week How often do you attend buddhist or samaritan services: never Do you belong to any clubs or organizations such as buddhist groups unions, fraternal or athletic groups, or school groups: no Total score: 1 Score interpretation: A score of less than or equal to 1 indicates the most socially isolated. Little interest or pleasure in doing things: more than half the days Feeling down, depressed, or hopeless: more than half the days Feel stressed/tense/nervous/anxious/difficulty sleeping: very much Life stressors: other Life stressor details: Not being able to walk Due to disability, difficulty making decisions: No Exam Narrative Exam Narrative: Gen.: Awake, alert, in no distress Head: Normocephalic, atraumatic ENT: Moist mucous membranes, no evidence of head injury or dental injury, C-spine is nontender Respiratory: No respiratory distress, lungs clear bilaterally Cardio: Regular rate and rhythm Gastrointestinal: Abdomen is soft, nondistended and nontender to palpation Extremities: Large area of ecchymosis to the left anterior tibia, diffuse tenderness of the right shoulder. Pelvis is stable and hips are nontender. Diffuse tenderness of the lumbar spine without bony point tenderness or obvious deformity. Psych: Normal mood and affect Neuro: No focal neuro deficit Skin: Warm, dry, intact Constitutional Vital Signs, click to edit/add: Last Vital Signs Temp 98.1 F 09/07/24 15:42 Pulse 73 09/07/24 17:20 Resp 18 09/07/24 16:20 BP 138/87 09/07/24 17:29 Pulse Ox 100 09/07/24 17:20 O2 Del Method Room Air 09/07/24 15:42 Course Vital Signs Vital signs: Vital Signs Temperature 98.1 F 09/07/24 15:42 Pulse Rate 76 09/07/24 15:42 Respiratory Rate 18 09/07/24 15:42 Blood Pressure 140/88 09/07/24 15:42 Pulse Oximetry 93 L 09/07/24 15:42 Oxygen Delivery Method Room Air 09/07/24 15:42 Temperature 98.1 F 09/07/24 15:42 Pulse Rate 73 09/07/24 17:20 Respiratory Rate 18 09/07/24 16:20 Blood Pressure 138/87 09/07/24 17:29 Pulse Oximetry 100 09/07/24 17:20 Oxygen Delivery Method Room Air 09/07/24 15:42 MDM - Weakness MDM Narrative Medical decision making narrative: On arrival to the emergency department, I did discuss with this patient that she may be unsafe for home and may benefit from a stay in rehab or penitentiary as she was unable to get into her home without falling and having profound weakness. Her injuries are consistent with multiple extremity and lower back contusions. CT of the brain, CT of the lumbar spine, x-rays of the shoulder and bilateral lower extremities with no evidence of acute process. Laboratory studies, EKG. She does have a urinary tract infection. Patient was reevaluated by attending physician, it was strongly recommended that she be readmitted to the hospital for PT/OT evaluation and probable placement as we have concerns for her safety. Her was at bedside through the duration of this exam. Patient declined admission or placement. Her is in agreement with this. She understands the risks to her safety by not being able to function well at home. She understands she can return to the emergency department if symptoms change or worsen. Cipro called in for urinary tract infection. Follow-up with primary care and return to the ER if symptoms change or worsen. SHARED APC VISIT, PHYSICIAN ATTESTATION: [id number] I performed a substantive part of the MDM during the patient?s E/M visit. I personally evaluated and examined the patient. I personally made or approved the documented management plan and acknowledge its risk of complications. ? Medical Records Attestation: I reviewed the patient's medical records. Lab Data Attestation: I reviewed the patient's lab results. Labs: Lab Results 09/06/24 09/07/24 Range/Units 00:00 16:11 WBC 5.4 (4.0-11.0) 10^3/uL RBC 4.82 (4.20-5.40) 10^6/uL Hgb 13.5 (12.0-16.0) g/dL Hct 41.9 (36.0-48.0) % MCV 86.9 (81.0-99.0) fL MCH 28.0 (26.7-34.0) pg MCHC 32.2 (29.9-35.2) g/dL RDW 13.4 (11.0-15.0) % Plt Count 202 (150-450) 10^3/uL MPV 10.2 (9.5-13.5) fL Neut % (Auto) 67.4 (43.0-75.0) % Lymph % (Auto) 19.3 L (20.5-60.0) % [place] % (Auto) 10.1 (1.7-12.0) % Eos % (Auto) 2.4 (0.9-7.0) % Baso % (Auto) 0.6 (0.2-2.0) % Neut # (Auto) 3.6 (1.4-6.5) 10^3/uL Lymph # (Auto) 1.0 L (1.2-3.8) 10^3/uL [place] # (Auto) 0.5 (0.3-0.8) 10^3/uL Eos # (Auto) 0.1 (0.0-0.7) 10^3/uL Baso # (Auto) 0.0 (0.0-0.1) 10^3/uL Abs Immat Gran (auto) 0.01 (0.00-0.03) 10^3/uL Imm/Tot Granulo (auto) 0.2 (0.0-0.5) % PT 11.1 (9.0-11.6) sec INR 1.05 Sodium 142 (136-145) mmol/L Potassium 4.2 (3.5-5.1) mmol/L Chloride 105 (98-107) mmol/L Carbon Dioxide 30.1 (21.0-32.0) mmol/L Anion Gap 11.1 BUN 17.0 (7.0-18.0) mg/dL Creatinine 1.22 H (0.55-1.02) mg/dL Est GFR ( Amer) 53 L (>=60 mL/min/1.73m^2) Est GFR (Non-Af Amer) 44 L (>=60 mL/min/1.73m^2) BUN/Creatinine Ratio 13.9 Glucose 107 H (74-106) mg/dL Calcium 9.1 (8.5-10.1) mg/dL Total Bilirubin 0.7 (0.2-1.0) mg/dL AST 191 H (15-37) U/L ALT 145 H (14-59) U/L Alkaline Phosphatase 207 H (46-116) U/L Troponin I High Sens 4.3 (4.0-51.3) pg/mL Total Protein 6.5 (6.4-8.2) g/dL Albumin 3.0 L (3.4-5.0) g/dL Globulin 3.5 g/dL Albumin/Globulin Ratio 0.9 TSH 2.641 (0.358-3.740) uIU/mL Urine Color Dk yellow (YELLOW) Urine Clarity Cloudy A (CLEAR) Urine pH 6.0 (5.0-9.0) Ur Specific [place] >=1.030 A (1.005-1.025) Urine Protein Negative (NEG/TRACE) mg/dL Urine Glucose (UA) Negative (NEGATIVE) mg/dL Urine Ketones 15 A (NEGATIVE) mg/dL Urine Occult Blood Negative (NEGATIVE) Urine Nitrite Positive A (NEGATIVE) Urine Bilirubin Negative (NEGATIVE) Urine Urobilinogen 4.0 A (0.2-1.0) EU/dL Ur Leukocyte Esterase Small A (NEGATIVE) Urine RBC None seen (0-2) #/HPF Urine WBC 10-20 A (NONE SEEN) #/HPF Ur Squamous Epith Cells Few A (NONE/RARE) #/LPF Urine Crystals None seen (None Seen) #/HPF Urine Bacteria Large A (NONE SEEN) #/HPF Urine Casts None seen (NONE SEEN) #/LPF Urine Mucus None seen (NONE SEEN) Ur Culture Indicated? Yes Imaging Data CT scan - head: Attestation: I have reviewed the pertinent imaging results. Radiologist's impression: ITS Impressions Lumbar Spine CT 09/07/24 15:50 IMPRESSION: No acute findings. Chronic findings, as above. Electronically authenticated by: SHANITA BARRETT Date: 09/07/2024 17:40 Shoulder X-Ray 09/07/24 15:50 IMPRESSION: No radiographic findings of acute trauma of the right shoulder. Electronically authenticated by: CARLOS JOHNSON Date: 09/07/2024 18:44 Tibia/Fibula X-Ray 09/07/24 15:50 IMPRESSION: No radiographic findings of acute trauma of the bilateral tibias/fibulas. Electronically authenticated by: CARLOS JOHNSON Date: 09/07/2024 18:[address] 09/07/24 15:51 IMPRESSION: No acute intracranial process. Electronically authenticated by: GABY SAMANIEGO Date: 09/07/2024 17:13 ECG Data Attestation: I personally reviewed and interpreted this ECG as follows: (Normal sinus rhythm at a rate of 68, no acute ST elevation or ectopy. EKG reviewed by attending physician) Discharge Plan Discharge Chief Complaint: Weakness Clinical Impression: Weakness, Fall, Contusion of lower extremity, Contusion of right shoulder, UTI (urinary tract infection) Patient Disposition: Home, Self-Care Time of Disposition Decision: 18:53 Condition: Fair Prescriptions / Home Meds: New ciprofloxacin HCl 500 mg tablet 500 mg PO Q12H Qty: 14 0RF No Action alprazolam 1 mg tablet 1 mg PO BID PRN (Reason: anxiety) atenolol 50 mg tablet 50 mg PO QPM Rx Instructions: 25 mg in morning 50 mg at night; atenolol 25 mg tablet 50 mg PO QAM pregabalin 50 mg capsule 50 mg PO Q8H oxycodone-acetaminophen 5-325 mg Tablet 1 tab PO Q12H PRN (Reason: Pain) 7 Days Qty: 14 0RF naloxone 0.4 mg/mL solution 0.4 mg subcut Q3M PRN (Reason: opioid reversal) Qty: 10 0RF Rx Instructions: NTExceed 10 mg total dose/episode Print Language: Citizen Of [place] Instructions: Fall Prevention for Older Adults (ED) Referrals: Connie Steawrt MD [Primary Care Provider] - 1 week
--- NOTE | 2024-09-07 15:54 | ECG_ITS ---
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
[2024-09-07 16:15] VITALS: PULSE 75
[2024-09-07 16:20] VITALS: PULSE 73
[2024-09-07 16:21] LABS: Basophils Percent Auto 0.6 % (0.2-2.0); Eosinophils Absolute Auto 0.1 10^3/uL (0.0-0.7); Eosinophils Percent Auto 2.4 % (0.9-7.0); Hematocrit 41.9 % (36.0-48.0); Hemoglobin 13.5 g/dL (12.0-16.0); Immature Granulocytes Abs Auto 0.01 10^3/uL (0.00-0.03); Immature Granulocytes Pct Auto 0.2 % (0.0-0.5); Lymphocytes Percent Auto 19.3 % (20.5-60.0); Mean Corpuscular HGB Conc 32.2 g/dL (29.9-35.2); Mean Corpuscular Volume 86.9 fL (81.0-99.0); Mean Platelet Volume 10.2 fL (9.5-13.5); Monocytes Absolute Auto 0.5 10^3/uL (0.3-0.8); Monocytes Percent Auto 10.1 % (1.7-12.0); Neutrophils Absolute Auto 3.6 10^3/uL (1.4-6.5); Neutrophils Percent Auto 67.4 % (43.0-75.0); Platelet Count 202 10^3/uL (150-450); Red Blood Count 4.82 10^6/uL (4.20-5.40); Red Cell Distribution Width 13.4 % (11.0-15.0); White Blood Count 5.4 10^3/uL (4.0-11.0)
[2024-09-07 16:22] LABS: Bilirubin Urine NEGATIVE (NEGATIVE); Blood Urine NEGATIVE (NEGATIVE); Clarity Urine CLOUDY (CLEAR); Glucose Urine UA NEGATIVE (NEGATIVE); Ketones Urine 15 mg/dL (NEGATIVE); Leukocyte Esterase Urine SMALL (NEGATIVE); Nitrite Urine POSITIVE (NEGATIVE); Protein Urine NEGATIVE (NEG/TRACE); Specific Gravity Urine >=1.030 (1.005-1.025)
--- OUTSIDE RECORDS SUMMARY | 2024-09-07 16:24 | XMS_ITS | CCD ---
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 Name Role Phone Toby Quintana Unavailable Unavailable Unavailable MD Toby Quintana Primary Care Provider [phone] BladesLeeann Attending Provider [phone] Unavailable Unavailable Blades, Leeann Unavailable KAN, DR [...] Unavailable QUINTANA, DR TOBY Schofield Admitting Unavailable SAND COULEE, DR CAITLYN Noe Consulting Unavailable QUINTANA, DR [...] Unavailable MD Samuel Chatman II Attending Provider [phone] Blades, Leeann Admitting Unavailable Blades, Leeann Attending Unavailable Toby Quintana Primary Care Unavailable Samuel Chatman II Admitting Samuel aLng II Attending Toby Armijo Primary Care Unavailable Samuel Chatman II Unavailable [phone] EVIN BYERS Attending Toby Pham Primary [...] Sulfamethoxazole; Translations: [sulfa] Drug Allergy Rash, Swelling [address] Work Phone: (10 sources) Sulfonamides (Antibiotic); Translations: [Sulfa (Sulfonamide Antibiotics)] Allergy to substance 04-08-20 19 Hives, Rash, Swelling [facility] (20 sources) Sulfacetamide / Sulfur Drug Allergy rash Refresh Body [facility] [employer] Other (1 source) Morphine Drug Allergy [facility] (1 source) Quinolones (Antibiotic) Drug allergy (disorder) [facility] (2 sources) Sulfonamides (Antibiotic) Drug allergy (disorder) 08-06-20 13 [facility] (12 sources) Acetaminophen / oxyCODONE Drug Allergy 07-28-20 13 Unknown [facility] Other (12 sources) Meperidine Drug Allergy 07-28-20 13 Unknown [facility] Other (13 sources) Quinolones Drug allergy 07-28-20 13 Comment:Fluorq rennolones [facility] Other (13 sources) sulfADIAZINE Drug Allergy Unknown [facility] Other (13 sources) Substance with sulfonamide structure and antibacterial mechanism of action (substance) Drug allergy 07-28-20 13 Unknown [facility] Other (13 sources) Statins Depletion *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 Propensity to adverse reactions 07-28-20 13 Unknown [facility] Other (4 sources) Allergies Reconciled Propensity to adverse reactions Unknown [facility] Other (4 sources) patient allergy list reviewed by nurse or physicia Propensity to adverse reactions 07-15-20 Comment:Done [facility] Other (1 source) Acetaminophen / oxyCODONE Drug Allergy 07-28-20 13 Unknown [facility] Other (1 source) Meperidine Drug Allergy 07-28-20 13 Unknown [facility] Other (5 sources) Sulfacetamide Drug Allergy 12-30-19 24 [facility] Medications Current Medications Medication Drug Class(es) Dates Sig (Normalized) Sig (Original) acetaminophen 325 mg / HYDROcodone bitartrate 5 mg oral tablet (20 sources) Opioid Agonist Start: 08-31-2021 End: 12-09-2023 take 1 tablet by mouth every four hours as needed HYDROcodone-acetami nophen ([place]) 5-325 mg tablet Take 1 tablet by [...] puffs Inhalation Twice a day Active omega 6-drb-rkf-fish oil 360 mg-108 mg- 180 mg-1,200 mg capsule (1 source) take 1 capsule by mouth once daily omega 5-ath-erw-fish oil 360 mg-108 mg- 180 mg-1,200 mg [...] Sep, Active take 1 capsule by mo [facility] every six hours as needed oxyCODONE [...] Other prison (current) drug therapy; Translations: [OTH 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 BUILDER CURRENT DRUG THERAPY] Onset: 07-23-2022 Episodic Other [...] (PPP) [Time] 23.5 s 22.3-36.2 [facility] Basophils Auto (Bld) [#/Vol] on 01-14-2024 Basophils (Bld) [#/Vol] 0.1 10 3/uL 0.0-0.1 [facility] Basophils/100 WBC Auto (Bld) on 01-14-2024 Basophils/100 WBC (Bld) 0.5 % 0.2-2.0 [facility] Eosinophils/100 WBC Auto (Bl d)on 01-14-2024 Eosinophils/100 WBC (Bld) 1.3 % 0.9-7.0 [facility] Erythrocyte distribution wid th Auto (RBC) [Ratio]on 01-14-2024 Erythrocyte distribution width (RBC) [Ratio] 13.6 % 11.0-15.0 [facility] Estimated glomerular filtrat ion rate (GFR) non- Americanon 01-14-2024 GFR/1.73 sq M.predicted among non-blacks MDRD (S/P/Bld) [Vol rate/Area] mL/min/{1.73_m2} >=60 [facility] Fibrin D-dimer [Presence] in Platelet poor plasma by Latex agglutinationon 01-14-2024 Fibrin D-dimer LA Ql (PPP) 0.78 mg/L FEU <=0.59 [facility] Comment on above: RESULTS CALLED TO EARL [...] Globulin (S) [Mass/Vol] 3.9 g/dL [facility] Hematocrit Auto (Bld) [Volum e fraction]on 01-14-2024 Hematocrit (Bld) [Volume fraction] 44.4 % 36.0-48.0 [facility] Hemoglobin [Mass/volume] in Bloodon 01-14-2024 Hemoglobin (Bld) [Mass/Vol] 14.1 g/dL 12.0-16.0 [facility] INR in Platelet poor plasma by Coagulation assayon 01-14-2024 INR Coag (PPP) [Relative time] {INR} [facility] Comment on above: DESIRED INR:2.0-3.0 CONDITIONS NOT LISTED BELOW2.5-3.5 FOR PROSTHETIC HEART VALVE REPLACEMENT2.5-3.5 RECURRENT THROMBOSIS Laboratory - Chemistry and C hemistry - challengeon 01-14-2024 Albumin [Mass/Vol] 2.9 g/dL 3.4-5.0 [facility] ALP [Catalytic activity/Vol] 126 U/L 46-116 [facility] ALT [Catalytic activity/Vol] 36 U/L 14-59 [facility] AST [Catalytic activity/Vol] 24 U/L 15-37 [facility] Bilirubin [Mass/Vol] 0.4 mg/dL 0.2-1.0 [facility] Calcium [Mass/Vol] 8.7 mg/dL 8.5-10.1 [facility] Chloride [Moles/Vol] 109 mmol/L 98-107 [facility] CO2 [Moles/Vol] 30.5 mmol/L 21.0-32.0 [facility] Creatinine [Mass/Vol] 0.77 mg/dL 0.55-1.02 [facility] GFR/1.73 sq M.predicted MDRD (S/P/Bld) [Vol rate/Area] mL/min/{1.73_m2} >=60 [facility] Glucose [Mass/Vol] 108 mg/dL 74-106 [facility] Natriuretic peptide B (Bld) [Mass/Vol] 210.0 pg/mL <=900.0 [facility] Potassium [Moles/Vol] 4.0 mmol/L 3.5-5.1 [facility] Protein [Mass/Vol] 6.8 g/dL 6.4-8.2 [facility] Sodium [Moles/Vol] 141 mmol/L 136-145 [facility] Urea nitrogen [Mass/Vol] 10.0 mg/dL 7.0-18.0 [facility] Urea nitrogen/Creatinine [Mass ratio] 13.0 mg/mg [facility] Laboratory - Hematology and Cell countson 01-14-2024 Immature granulocytes/100 WBC (Bld) 0.3 % 0.0-0.5 [facility] Laboratory - Microbiology an d Antimicrobial susceptibilityon 01-14-2024 SARS-CoV-2 (COVID-19) RNA DAVID+probe Ql (Unsp spec) Negative NEGATIVE [facility] Comment on above: This test has not [...] [#/Vol] 9.2 10 3/uL 4.0-11.0 [facility] Lymphocytes Auto (Bld) [#/Vo l]on 01-14-2024 Lymphocytes (Bld) [#/Vol] 1.9 10 3/uL 1.2-3.8 [facility] Lymphocytes/100 WBC Auto (Bl d)on 01-14-2024 Lymphocytes/100 WBC (Bld) 20.3 % 20.5-60.0 [facility] MCH Auto (RBC) [Entitic mass ]on 01-14-2024 MCH (RBC) [Entitic mass] 28.4 pg 26.7-34.0 [facility] MCHC Auto (RBC) [Mass/Vol]on 01-14-2024 MCHC (RBC) [Mass/Vol] 31.8 g/dL 29.9-35.2 [facility] MCV Auto (RBC) [Entitic vol] on 01-14-2024 MCV (RBC) [Entitic vol] 89.5 fL 81.0-99.0 [facility] Monocytes Auto (Bld) [#/Vol] on 01-14-2024 Monocytes (Bld) [#/Vol] 0.8 10 3/uL 0.3-0.8 [facility] Monocytes/100 WBC Auto (Bld) on 01-14-2024 Monocytes/100 WBC (Bld) 8.5 % 1.7-12.0 [facility] Neutrophils Auto (Bld) [#/Vo l]on 01-14-2024 Neutrophils (Bld) [#/Vol] 6.3 10 3/uL 1.4-6.5 [facility] Neutrophils/100 WBC Auto (Bl d)on 01-14-2024 Neutrophils/100 WBC (Bld) 69.1 % 43.0-75.0 [facility] No Panel Informationon 01-13 Troponin I High Sensitivity 6.8 pg/mL 4.0-51.3 [facility] Comment on above: CUT-OFF POINTS HAVE BEEN [...] Influenza Type A Antigen Negative [facility] Comment on above: Negative for Flu A p rotein antigen. Infection due to Flu Acannot be ruled out. Flu A antigen in the sample may bebelow the detection limit of the test. Bedside Influenza Type B Antigen Negative [facility] Comment on above: Negative for Flu B p rotein antigen. Infection due to Flu Bcannot be ruled out. Flu B antigen in the sample may bebelow the detection limit of the test. Eosinophils # (Auto) 0.1 10 3/uL 0.0-0.7 [facility] Immature Granulocyte # (Auto) 0.03 10 3/uL 0.00-0.03 [facility] Platelet mean volume Auto (B ld) [Entitic vol]on 01-14-2024 Platelet mean volume (Bld) [Entitic vol] 9.4 fL 9.5-13.5 [facility] Platelets Auto (Bld) [#/Vol] on 01-14-2024 Platelets (Bld) [#/Vol] 238 10 3/uL 150-450 [facility] Prothrombin time (PT)on PT Coag (PPP) [Time] 9.3 s 9.0-11.6 [facility] RBC Auto (Bld) [#/Vol]on RBC (Bld) [#/Vol] 4.96 10 6/uL 4.20-5.40 [facility] Serum or plasma albumin/glob ulin mass ratioon 01-14-2024 Albumin/Globulin [Mass ratio] 0.7 {ratio} [facility] Serum or plasma anion gap de terminationon 01-14-2024 Anion gap [Moles/Vol] 5.5 mmol/L [facility] Basophils Auto (Bld) [#/Vol] on 12-30-2023 Basophils (Bld) [#/Vol] 0.1 10 3/uL 0.0-0.1 [facility] Basophils/100 WBC Auto (Bld) on 12-30-2023 Basophils/100 WBC (Bld) 0.6 % 0.2-2.0 [facility] Cholesterol in LDL Calc [Mas s/Vol]on 12-30-2023 Cholesterol in LDL [Mass/Vol] 149.0 mg/dL [facility] Comment on above: <100 mg/dl [id number] 0-129 mg/dl NEAR OR ABOVE [id number] mg/dl BORDERLINE SYHA475-697 mg/dl HIGH>190 mg/dl VERY HIGH Cholesterol in VLDL Calc [Ma ss/Vol]on 12-30-2023 Cholesterol in VLDL [Mass/Vol] 18.6 mg/dL [facility] Eosinophils/100 WBC Auto (Bl d)on 12-30-2023 Eosinophils/100 WBC (Bld) 1.8 % 0.9-7.0 [facility] Erythrocyte distribution wid th Auto (RBC) [Ratio]on 12-30-2023 Erythrocyte distribution width (RBC) [Ratio] 13.2 % 11.0-15.0 [facility] Estimated glomerular filtrat ion rate (GFR) non- Americanon 12-30-2023 GFR/1.73 sq M.predicted among non-blacks MDRD (S/P/Bld) [Vol rate/Area] mL/min/{1.73_m2} >=60 [facility] Globulin Calc (S) [Mass/Vol] on 12-30-2023 Globulin (S) [Mass/Vol] 3.8 g/dL [facility] Hematocrit Auto (Bld) [Volum e fraction]on 12-30-2023 Hematocrit (Bld) [Volume fraction] 46.8 % 36.0-48.0 [facility] Hemoglobin [Mass/volume] in Bloodon 12-30-2023 Hemoglobin (Bld) [Mass/Vol] 14.7 g/dL 12.0-16.0 [facility] Laboratory - Chemistry and C hemistry - challengeon 12-30-2023 Albumin [Mass/Vol] 3.0 g/dL 3.4-5.0 [facility] ALP [Catalytic activity/Vol] 88 U/L 46-116 [facility] ALT [Catalytic activity/Vol] 23 U/L 14-59 [facility] AST [Catalytic activity/Vol] 20 U/L 15-37 [facility] Bilirubin [Mass/Vol] 0.5 mg/dL 0.2-1.0 [facility] Calcium [Mass/Vol] 9.2 mg/dL 8.5-10.1 [facility] Chloride [Moles/Vol] 107 mmol/L 98-107 [facility] Cholesterol [Mass/Vol] 224 mg/dL <=200 [facility] Cholesterol in HDL [Mass/Vol] 57 mg/dL 40-60 [facility] Comment on above: > or =60 mg/dl - LOW CARDIOVASCULAR RISK<40 mg/dl - HIGH CARDIOVASCULAR RISK CO2 [Moles/Vol] 31.1 mmol/L 21.0-32.0 [facility] Creatinine [Mass/Vol] 0.72 mg/dL 0.55-1.02 [facility] GFR/1.73 sq M.predicted MDRD (S/P/Bld) [Vol rate/Area] mL/min/{1.73_m2} >=60 [facility] Glucose [Mass/Vol] 100 mg/dL 74-106 [facility] Potassium [Moles/Vol] 4.5 mmol/L 3.5-5.1 [facility] Protein [Mass/Vol] 6.8 g/dL 6.4-8.2 [facility] Sodium [Moles/Vol] 145 mmol/L 136-145 [facility] Triglyceride [Mass/Vol] 93 mg/dL <=150 [facility] TSH Qn 2.655 m[IU]/L 0.358-3.740 [facility] Urea nitrogen [Mass/Vol] 9.0 mg/dL 7.0-18.0 [facility] Urea nitrogen/Creatinine [Mass ratio] 12.5 mg/mg [facility] Laboratory - Hematology and Cell countson 12-30-2023 Immature granulocytes/100 WBC (Bld) 0.2 % 0.0-0.5 [facility] Leukocytes [#/volume] correc wanda for nucleated erythrocytes in Blood by Automated counon 12-30-2023 WBC corrected for nucl RBC Auto (Bld) [#/Vol] 8.7 10 3/uL 4.0-11.0 [facility] Lymphocytes Auto (Bld) [#/Vo l]on 12-30-2023 Lymphocytes (Bld) [#/Vol] 1.8 10 3/uL 1.2-3.8 [facility] Lymphocytes/100 WBC Auto (Bl d)on 12-30-2023 Lymphocytes/100 WBC (Bld) 20.4 % 20.5-60.0 [facility] MCH Auto (RBC) [Entitic mass ]on 12-30-2023 MCH (RBC) [Entitic mass] 28.6 pg 26.7-34.0 [facility] MCHC Auto (RBC) [Mass/Vol]on 12-30-2023 MCHC (RBC) [Mass/Vol] 31.4 g/dL 29.9-35.2 [facility] MCV Auto (RBC) [Entitic vol] on 12-30-2023 MCV (RBC) [Entitic vol] 91.1 fL 81.0-99.0 [facility] Monocytes Auto (Bld) [#/Vol] on 12-30-2023 Monocytes (Bld) [#/Vol] 0.7 10 3/uL 0.3-0.8 [facility] Monocytes/100 WBC Auto (Bld) on 12-30-2023 Monocytes/100 WBC (Bld) 7.5 % 1.7-12.0 [facility] Neutrophils Auto (Bld) [#/Vo l]on 12-30-2023 Neutrophils (Bld) [#/Vol] 6.0 10 3/uL 1.4-6.5 [facility] Neutrophils/100 WBC Auto (Bl d)on 12-30-2023 Neutrophils/100 WBC (Bld) 69.5 % 43.0-75.0 [facility] No Panel Informationon 12-30 Eosinophils # (Auto) 0.2 10 3/uL 0.0-0.7 [facility] Immature Granulocyte # (Auto) 0.02 10 3/uL 0.00-0.03 [facility] Platelet mean volume Auto (B ld) [Entitic vol]on 12-30-2023 Platelet mean volume (Bld) [Entitic vol] 9.3 fL 9.5-13.5 [facility] Platelets Auto (Bld) [#/Vol] on 12-30-2023 Platelets (Bld) [#/Vol] 199 10 3/uL 150-450 [facility] RBC Auto (Bld) [#/Vol]on RBC (Bld) [#/Vol] 5.14 10 6/uL 4.20-5.40 [facility] Serum or plasma albumin/glob ulin mass ratioon 12-30-2023 Albumin/Globulin [Mass ratio] 0.8 {ratio} [facility] Serum or plasma anion gap de terminationon 12-30-2023 Anion gap [Moles/Vol] 11.4 mmol/L [facility] Serum or plasma total choles terol/high density lipoprotein (HDL) cholesterol mass la 12-30-2023 Cholesterol.total/Ch olesterol in HDL [Mass ratio] 3.9 {ratio} [facility] Comment on above: 3.3 - 4.4 LOW RISK4. 4 - 7.1 AVERAGE RISK7.1 - 11.0 MODERATE RISK>11.0 HIGH RISK XR hip LT min 2V(w/wo pelvis )*on 01-08-2023 XR hip LT min 2V(w/wo pelvis)* [facility] Main [address] [address] XRay Report Signed Patient: Adriana Dinero I MR#: [id number] 056 : 1955 Acct:[id number] Age/Sex: 67 / F ADM Date: 01/08/23 [...] Pop Jr., D.O.01/08/2023 1:22 PM Dictation Location: [place] [address] Transcribed By: [facility] 01/08/23 1322 Dictated By: Montana Pop Jr, DO 01/08/23 1321 Signed By: 01/08/23 1322 Normal [facility] XR hip LT min 2V(w/wo pelvis)* [facility] [employer] Other XR hip LT min 2V(w/wo pelvis)* [facility] [place] Main [facility] Other XR hip LT min 2V(w/wo pelvis)* [address] [place] [address] [employer] [facility] Other XR hip LT min 2V(w/wo pelvis)* [place] [address] [employer] Other XR hip LT min 2V(w/wo pelvis)* XRay Report [facility] Other XR hip LT min 2V(w/wo pelvis)* Signed [facility] Other XR hip LT min 2V(w/wo pelvis)* Patient: Adriana Dinero I MR#: [id number] [facility] Other XR hip LT min 2V(w/wo pelvis)* 056 [employer] Other XR hip LT min 2V(w/wo pelvis)* : 1955 Acct:[id number] [facility] Other XR hip LT min 2V(w/wo pelvis)* Age/Sex: 67 / F ADM Date: 01/08/23 [facility] Other XR hip LT min 2V(w/wo pelvis)* [place] [facility]: Type: [facility] Other XR hip LT min 2V(w/wo pelvis)* Attending Dr: Samuel Chatman II, MD [facility] Other XR hip LT min 2V(w/wo pelvis)* Copies to: Samuel Chatman MD [facility] Other XR hip LT min 2V(w/wo pelvis)* Ordering Provider: Samuel Chatman MD [facility] Other XR hip LT min 2V(w/wo pelvis)* Date of Service: 01/08/23 [facility] Other XR hip LT min 2V(w/wo pelvis)* XR/XR hip LT min 2V(w/wo pelvis)*: Left hip pain [facility] Other XR hip LT min 2V(w/wo pelvis)* LEFT HIP - 2 views: [facility] Other XR hip LT min 2V(w/wo pelvis)* CLINICAL HISTORY: Left hip pain for months. [facility] Other XR hip LT min 2V(w/wo pelvis)* COMPARISON: Hip series 11/22/2022 [facility] Other XR hip LT min 2V(w/wo pelvis)* FINDINGS: Mild degenerative changes of both hips without acute bony process. [facility] Other XR hip LT min 2V(w/wo pelvis)* XR/XR hip LT min 2V(w/wo pelvis)* [facility] Other XR hip LT min 2V(w/wo pelvis)* IMPRESSION: [facility] Other XR hip LT min 2V(w/wo pelvis)* MILD DEGENERATIVE CHANGES OF BOTH HIPS WITHOUT ACUTE BONY PROCESS.. [facility] Other XR hip LT min 2V(w/wo pelvis)* Impression dictated by: Montana Pop Jr., D.OOdessa01/08/2023 1:22 PM [facility] Other XR hip LT min 2V(w/wo pelvis)* Dictation Location: [place] [address] [facility] Other XR hip LT min 2V(w/wo pelvis)* Transcribed By: VALERIE 01/08/23 [facility] Other XR hip LT min 2V(w/wo pelvis)* Dictated By: Montana Pop Jr, DO 01/08/23 [facility] Other XR hip LT min 2V(w/wo pelvis)* Signed By: [facility] Other XR hip LT min 2V(w/wo pelvis)* 01/08/23 [facility] Other Office Visit (Cardiology)on 12-09-2022 Follow-up visit [...] Former smoker Tobacco Use Screening; Status:Complete; Done: [id number] Patient Instructions Please bring all medicines, vitamins, [...] and provided the patient with 2 local cook helper vegetable in [facility]. ASSESSMENT AND PLAN: 1. Supraventricular tachycardia, on [...] follow-up will be scheduled Iban Lu MD, [facility] Surgical History Problems History of Back surgery [...] Recorded: 09Dec2022 01:25PM Heart Rate78, L Radial Bgzamwmn009, LUE, Sitting Uefftifij53, LUE, Sitting Height5 ft 6 in Mywecz510 lb BMI Uuzpwrdkhw27.03 kg/m2 BSA Calculated2.19 Tobacco Useb) No PHQ-2 [...] Dec 09 2022 2:09PM EST (Author) Normal [facility] Tobacco Screening.on 023 Fall risk assessment b) One or more fall s in the last year -[facility]licja 250 DO Work Phone: Tobacco use status [facility] b) No [facility] 250 DO Work Phone: Tobacco Screening. Yes MP-Nor [facility] 250 DO Work Phone: XR hip BI w [id number] 11-22-19 XR hip BI w [id number] [facility] Main [address] [address] XRay Report Signed Patient: Adriana Dinero I MR#: [id number] 056 : 1955 Acct:[id number] Age/Sex: 67 / F ADM Date: 11/22/22 [...] Pop Jr., D.O.11/22/2022 1:12 PM Dictation Location: [place] [address] Transcribed By: [facility] 11/22/22 1312 Dictated By: Montana Pop Jr, DO 11/22/22 1311 Signed By: 11/22/22 1312 Normal [facility] XR lumbar spine AP/LAT/FLX/E XTon 11-22-2022 XR lumbar spine AP/LAT/FLX/EXT [address] [address] XRay Report Signed Patient: Adriana Dinero I MR#: [id number] 056 : 1955 Acct:[id number] Age/Sex: 67 / F ADM Date: 11/22/22 [...] Pop Jr., D.O.11/22/2022 1:11 PM Dictation Location: [place] [address] Transcribed By: [facility] 11/22/22 1311 Dictated By: Montana Pop Jr, DO 11/22/22 1309 Signed By: 11/22/22 1311 Normal [facility] CREATININEon 10-04-2022 Creatinine [Mass/Vol] 0.75 mg/dL Normal 0.55-1.02 [facility] Comment on above: Performed By: #### C CARLOS #### [facility] [address] [place] [address] [address] Henrietta Zavala EGFR-AF VINCENTIAN >60 Normal >=60 [facility] Comment on above: Performed By: #### C CARLOS #### [facility] [address] [place] [address] [address] Henrietta Zavala EGFR-NON AF VINCENTIAN >60 Normal >=60 [facility] Comment on above: Performed By: #### C CARLOS #### [facility] [address] [place] [address] Dr. Henrietta Zavala MRI LSPINE WO W [...] SHALA OMER Date: 2022-10-04 11:19 Normal [facility] Covid-19 PCR (CVDTB)on 07-11 SARS-CoV-2 (COVID-19) RNA DAVID+probe Ql (Unsp spec) Not detected Normal NOT DETECTED [facility] Comment on above: Result Comment: This test is not yet approved or cleared by the [place] FDA. When there are no FDA-approved or cleared tests available, and other criteria are met, FDA can make tests available under an emergency access mechanism called an Emergency Use Authorization (EUA). The EUA for this test is supported by the [place] of Health and Human Service's (HHS's) declaration [...] consistent with SARS-CoV-2. Performed By: #### [facility] #### [facility] [address] [place] [address] Dr. Henrietta Zavala XR HIPS JI 3_4V [...] CAITLYN CABRERA Date: 2022-04-15 07:00 Normal [facility] XR TSPINE 3 VIEWSon 04-15-20 22 [...] CAITLYN CABRERA Date: 2022-04-15 07:03 Normal [facility] CBC AUTO DIFFon 04-12-2022 BASO # 0.1 103/ul Normal 0.0-0.1 [facility] Comment on above: Performed By: #### C BC #### [facility] [address] [place] [address] Dr. Henrietta Zavala Basophils/100 WBC (Bld) 0.4 % Normal 0.2-2.0 [facility] Comment on above: Performed By: #### C BC #### [facility] [address] [place] [address] Dr. Henrietta Zavala EO # 0.1 103/ul Normal 0.0-0.7 [facility] Comment on above: Performed By: #### C BC #### [facility] [address] [place] [address] Dr. Henrietta Zavala Eosinophils/100 WBC (Bld) 0.4 % Critically low 0.9-7.0 [facility] Comment on above: Performed By: #### C BC #### [facility] [address] [place] [address] Dr. Henrietta Zavala Erythrocyte distribution width (RBC) [Ratio] 14.1 % Normal 11.0-15.0 [facility] Comment on above: Performed By: #### C BC #### [facility] [address] [place] [address] Dr. Henrietta Zavala Hematocrit (Bld) [Volume fraction] 44.9 % Normal 36.0-48.0 [facility] Comment on above: Performed By: #### C BC #### [facility] [address] [place] [address] Dr. Henrietta Zavala Hemoglobin (Bld) [Mass/Vol] 14.2 g/dL Normal 12.0-16.0 [facility] Comment on above: Performed By: #### C BC #### [facility] [address] [place] [address] Dr. Henrietta Zavala IG # 0.06 10e3/ul Critically high 0.00-0.03 [facility] Comment on above: Performed By: #### C BC #### [facility] [address] [place] [address] Dr. Henrietta Zavala IG % 0.5 % Normal 0.0-0.5 [facility] Comment on above: Performed By: #### C BC #### [facility] [address] [place] [address] [address] Henrietta Zavala LYMPH # 2.2 103/ul Normal 1.2-3.8 [facility] Comment on above: Performed By: #### C BC #### [facility] [address] [place] [address] [address] Henrietta Zavala Lymphocytes/100 WBC (Bld) 19.4 % Critically low 20.5-60.0 [facility] Comment on above: Performed By: #### C BC #### [facility] [address] [place] [address] [address] Henrietta Zavala MANUAL DIFF REQ NO Normal [facility] Comment on above: Performed By: #### C BC #### [facility] [address] [place] [address] Dr. Henrietta Zavala MCH (RBC) [Entitic mass] 27.5 pg Normal 26.7-34.0 [facility] Comment on above: Performed By: #### C BC #### [facility] [address] [place] [address] Dr. Henrietta Zavala MCHC (RBC) [Mass/Vol] 31.6 g/dL Normal 29.9-35.2 [facility] Comment on above: Performed By: #### C BC #### [facility] [address] [place] [address] Dr. Henrietta Zavala MCV (RBC) [Entitic vol] 86.8 fL Normal 81.0-99.0 [facility] Comment on above: Performed By: #### C BC #### [facility] [address] [place] [address] Dr. Henrietta Zavala MONO # 0.9 103/ul Critically high 0.3-0.8 [facility] Comment on above: Performed By: #### C BC #### [facility] [address] [place] [address] Dr. Henrietta Zavala Monocytes/100 WBC (Bld) 7.9 % Normal 1.7-12.0 [facility] Comment on above: Performed By: #### C BC #### [facility] [id number] Henrietta Zavala NEUT # 8.1 103/ul Critically high 1.4-6.5 [facility] Comment on above: Performed By: #### C BC #### [facility] [id number] Henrietta Zavala Neutrophils/100 WBC (Bld) 71.4 % Normal 43.0-75.0 [facility] Comment on above: Performed By: #### C BC #### [facility] [address] [address] [address] Henrietta Zavala Platelet mean volume (Bld) [Entitic vol] 9.7 fL Normal 9.5-13.5 [facility] Comment on above: Performed By: #### C BC #### [facility] [address] [address] [address] Henrietta Zavala PLT 284 103/ul Normal 150-450 [facility] Comment on above: Performed By: #### C BC #### [facility] [address] [address] [address] Henrietta Zavala RBC 5.17 106/ul Normal 4.20-5.40 [facility] Comment on above: Performed By: #### C BC #### [facility] [address] [address] [address] Henrietta Zavala WBC 11.3 103/ul Critically high 4.0-11.0 [facility] Comment on above: Performed By: #### C BC #### [facility] [address] [address] [address] Henrietta Zavala LIPID PROFILEon 04-12-2022 CHOL-HDL RATIO NORM SEE BELOW Normal [facility] Comment on above: Result Comment: 3.3 - 4.4 LOW RISK 4.4 - 7.1 AVERAGE RISK 7.1 - 11.0 MODERATE RISK >11.0 HIGH RISK Performed By: #### C MP, LIPID #### [facility] [address] [address] [address] Henrietta Zavala Cholesterol [Mass/Vol] 235 mg/dL Critically high <=200 [facility] Comment on above: Performed By: #### C MP, LIPID #### [facility] [address] [address] [address] Henrietta Zavala Cholesterol in HDL [Mass/Vol] 47 mg/dL Normal 40-60 [facility] Comment on above: Performed By: #### C MP, LIPID #### [facility] [address] [address] [address] Henrietta Zavala Cholesterol in LDL [Mass/Vol] 160.8 mg/dL Normal [facility] Comment on above: Performed By: #### C MP, LIPID #### [facility] [address] [address] [address] Henrietta Zavala Cholesterol.total/Ch olesterol in HDL [Mass ratio] 5.0 {ratio} Normal [facility] Comment on above: Performed By: #### C MP, LIPID #### [facility] [address] [place] [address] Dr. Henrietta Zavala HDL NORMAL > or = 60 mg/dl - LO W CARDIOVASCULAR RISK <40 mg/dl - HIGH CARDIOVASCULAR RISK Normal [facility] Comment on above: Performed By: #### C MP, LIPID #### [facility] [address] [place] [address] Dr. Henrietta Zavala LDL CALC NORMAL SEE BELOW Normal [facility] Comment on above: Result Comment: <100 mg/dl OPTIMAL 100 - 129 mg/dl NEAR OR ABOVE OPTIMAL 130 - 159 mg/dl BORDERLINE HIGH 160 - 189 mg/dl HIGH >190 mg/dl VERY HIGH Performed By: #### C MP, LIPID #### [facility] [address] [place] [address] Dr. Henrietta Zavala Triglyceride [Mass/Vol] 136 mg/dL Normal <=150 [facility] Comment on above: Performed By: #### C MP, LIPID #### [facility] [address] [place] [address] Dr. Henrietta Zavala VLDL CALC 27.2 mg/dL Normal [facility] Comment on above: Performed By: #### C MP, LIPID #### [facility] [address] [place] [address] Dr. Henrietta Zavala PROF 14(COMP METB)on 022 Albumin [Mass/Vol] 3.2 g/dL Critically low 3.4-5.0 [facility] Comment on above: Performed By: #### C MP, LIPID #### [facility] [address] [address] [address] Henrietta Zavala Albumin/Globulin [Mass ratio] 0.8 {ratio} Normal [facility] Comment on above: Performed By: #### C MP, LIPID #### [facility] [address] [address] [address] Henrietta Zavala ALP [Catalytic activity/Vol] 127 U/L Critically high 46-116 [facility] Comment on above: Performed By: #### C MP, LIPID #### [facility] [address] [place] [address] Dr. Henrietta Zavala ALT [Catalytic activity/Vol] 55 U/L Normal 14-59 [facility] Comment on above: Performed By: #### C MP, LIPID #### [facility] [address] [address] [address] Henrietta Zavala Anion gap [Moles/Vol] 13.6 mmol/L Normal [facility] Comment on above: Performed By: #### C MP, LIPID #### [facility] [address] [place] [address] Dr. Henrietta Zavala AST [Catalytic activity/Vol] 24 U/L Normal 15-37 [facility] Comment on above: Performed By: #### C MP, LIPID #### [facility] [address] [address] [address] Henrietta Zavala Bilirubin [Mass/Vol] 0.3 mg/dL Normal 0.2-1.0 [facility] Comment on above: Performed By: #### C MP, LIPID #### [facility] [address] [address] [address] Henrietta Zavala Calcium [Mass/Vol] 8.8 mg/dL Normal 8.5-10.1 [facility] Comment on above: Performed By: #### C MP, LIPID #### [facility] [address] [address] [address] Henrietta Zavala Chloride [Moles/Vol] 107 mmol/L Normal 98-107 [facility] Comment on above: Performed By: #### C MP, LIPID #### [facility] [address] [place] [address] Dr. Henrietta Zavala CO2 [Moles/Vol] 25.6 mmol/L Normal 21.0-32.0 [facility] Comment on above: Performed By: #### C MP, LIPID #### [facility] [address] [place] [address] Dr. Henrietta Zavala Creatinine [Mass/Vol] 0.77 mg/dL Normal 0.55-1.02 [facility] Comment on above: Performed By: #### C MP, LIPID #### [facility] [address] [place] [address] Dr. Henrietta Zavala EGFR-AF VINCENTIAN >60 Normal >=60 [facility] Comment on above: Performed By: #### C MP, LIPID #### [facility] [address] [place] [address] Dr. Henrietta Zavala EGFR-NON AF VINCENTIAN >60 Normal >=60 [facility] Comment on above: Performed By: #### C MP, LIPID #### [facility] [address] [place] [address] Dr. Henrietta Zavala Globulin (S) [Mass/Vol] 3.8 g/dL Normal [facility] Comment on above: Performed By: #### C MP, LIPID #### [facility] [address] [address] [address] Henrietta Zavala Glucose [Mass/Vol] 90 mg/dL Normal 74-106 [facility] Comment on above: Performed By: #### C MP, LIPID #### [facility] [address] [place] [address] Dr. Henrietta Zavala Potassium [Moles/Vol] 4.2 mmol/L Normal 3.5-5.1 [facility] Comment on above: Performed By: #### C MP, LIPID #### [facility] [address] [place] [address] Dr. Henrietta Zavala Protein [Mass/Vol] 7.0 g/dL Normal 6.4-8.2 [facility] Comment on above: Performed By: #### C MP, LIPID #### [facility] [address] [address] [address] Henrietta Zavala Sodium [Moles/Vol] 142 mmol/L Normal 136-145 [facility] Comment on above: Performed By: #### C MP, LIPID #### [facility] [address] [address] [address] Henrietta Zavala Urea nitrogen [Mass/Vol] 13.0 mg/dL Normal 7.0-18.0 [facility] Comment on above: Performed By: #### C MP, LIPID #### [facility] [address] [address] [address] Henrietta Zavala Urea nitrogen/Creatinine [Mass ratio] 16.9 mg/mg Normal [facility] Comment on above: Performed By: #### C MP, LIPID #### [facility] [address] [place] [address] Dr. Henrietta Zavala Tobacco Screening.on 021 Fall risk assessment a) No falls within the last year [facility] 250 DO Work Phone: Tobacco use status CPHS b) No [facility] 250 DO Work Phone: KNEE LEFT 3 [facility] 03-30-2021 KNEE LEFT 3 [facility] Department of Radiology [address] [place] [phone] ======== Patient Name: ADRIANA RAYGOZA : 1955 Sex: F Age: Race: White Pt. Location: Patient Status: Ordered Date: 03/30/2021 9:00:00 AM Completed Date: 03/30/2021 09:07 AM Requesting Provider: RAMANDEEP PATEL Attending Provider: Report Copy To: Signs & Symptoms: M25.562 Pain in left knee I10 History: Deb Comments: , , , Ordering Provider - RAMANDEEP PATEL MD , Exam: KNEE LEFT 3 [facility] ======== KNEE LEFT 3 S 03/30/2021 9:07 [...] findings. Electronically signed: Jesse Lazaro. Transcribed by: [email or web address], User Resident: Electronically Signed by: JESSE LAZARO @ 03/30/2021 11:00 AM Normal [facility] Comment on above: Order Comment: , , = ========= , Ordering Provider - RAMANDEEP PATEL MD , KNEE RIGHT 3 Son KNEE RIGHT 3 [facility] Department of Radiology [address] [place] [phone] ======== Patient Name: ADRIANA RAYGOZA : 1955 Sex: F Age: Race: White Pt. Location: 84 Patient Status: O Ordered Date: 03/30/2021 9:05:00 AM Completed Date: 03/30/2021 09:07 AM Requesting Provider: RAMANDEEP PATEL Attending Provider: RAMANDEEP PATEL Report Copy To: Signs & Symptoms: M25.569 Pain in unspecified knee I10 History: [place] Comments: Evaluate Exam: KNEE RIGHT 3 VWS [...] reports Electronically signed: Jesse Lazaro. Transcribed by: [email or web address], User Resident: SHALA EATON Electronically Signed by: JESSE LAZARO @ 03/30/2021 03:52 PM I personally read this/these film(s) with this resident Normal [facility] Comment on above: Order Comment: Evalu ate MRI LUMBAR SP W & WO CONTRAS Ton 10-11-2020 MRI LUMBAR SP W & WO CONTRAST STUDY: MRI LUMBAR SP W WO CONTRAST; 10/11/2020 11:35 am INDICATION: POST LAMINECTOMY SYNDROME. COMPARISON: None. ACCESSION NUMBER(S): [id number] ORDERING CLINICIAN: Denis Donohue TECHNIQUE: The lumbar [...] [facility] Normal [facility] LUMB SP COMP W FLEX/EXT 6 VW Son 09-12-2020 LUMB SP COMP W FLEX/EXT 6 VWS STUDY: LUMB SP COMP W FLEX/EXT 6 VWS ; ; 09/12/2020 8:45 am INDICATION: PAIN. COMPARISON: None. ACCESSION NUMBER(S): [id number] ORDERING CLINICIAN: Denis Donohue FINDINGS: Status post [...] neural foraminal stenosis at L5-S1 level. Normal [facility] Ambulatory Clinical Summaryo n 05-22-2020 Ambulatory Clinical Summary {[id number] }CD:[id number] Normal [facility] Coding Summary.on 05-10-2020 Coding Summary. CODING DATE: 05/10/2020 FINAL [facility] STATUS: Home (Routine DC) PAYOR: [...] Date Saved: 05/10/2020 04:39 pm [facility] Coding Summary.on 05-08-2020 Coding Summary. CODING DATE: 05/08/2020 [facility] STATUS: Home (Routine DC) PAYOR: Commercial [...] Date Saved: 05/08/2020 12:00 pm [facility] IntraOperative Documentson 0 05-08-2020 IntraOperative Documents [id number]#1. 00CD:127 [facility] Postoperative Documentson Postoperative Documents [id number]#1.0 0CD:127 [facility] Coding Summary.on 05-04-2020 Coding Summary. CODING DATE: 05/04/2020 [facility] STATUS: Home (Routine DC) PAYOR: Commercial Insurance APC DESCRIPTION 5301 Level 1 Upper GI Procedures ADMIT DX: REASON FOR VISIT DX: R10.13 Epigastric pain FINAL DX: PRINCIPAL: K29.50 Unspecified chronic gastritis without bleeding SECONDARY: K25.9 Gastric ulcer, unspecified as acute or chronic, without hemorrhage or perforation R11.2 Nausea with vomiting, unspecified PYMT PROC APC STAT DESCRIPTION DOCTOR NAME DATE 64120 5301 Reid CLINE MD 05/01/2020 phagogastroduodenoscop y, flexible, transoral; with biopsy, single or multiple 03827 Anesthesia for upper Elliot Tena Jr, DO [...] Revised Date Saved: 05/04/2020 03:45 pm Normal [facility] Progress Note-Physicianon Progress Note-Physician Patient: ADRIANA [...] Cardiovascular: Regular rhythm. Neurologic: Alert, Oriented. Plan [place] [employer]esthesiologists (ASA) physical status classification: Class II. Anesthetic Preoperative Plan Anesthesia: General. . Anesthetic plan, risks, benefits, and alternatives discussed with the patient and/or family. Communication: face to face with (patient 5 minutes, Patient educated on smoking cesstation). Normal [facility] Comment on above: Result Comment: Elec tronically Signed By: Elliot Tena Jr, DO\.br\Date and Time Signed: 05/03/20 09:34 EDT Main OR Intraoperative Recor don 05-02-2020 Main OR Intraoperative Record IntraOp Document Type FT Summary Primary Physician: Reid NIEVES MD Finalized Date/Time: 05/02/20 13:35:19 Pt. Name: ADRIANA DINERO Shoshana VeraB./Sex: 1955 Female Med Rec #: [id number] Physician: Reid NIEVES MD Financial #: [id number] Pt. 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 Condition Intact, [place], Warm, and Dry Airway Maintenance Oxygen in Use? No Outcomes Met? Yes Last Modified By: Savannah Chavis RN 05/01/20 06:57:50 Post-Care Text: The patient is free from signs and symptoms of injury related to transfer/transport General Comments: Report given to theater technician. RHRN Medication Administration FT Pre-Care Text: [...] 08:26 Altagracia Bowen CST 05/02/20 13:35 Normal [facility] Consenton 05-01-2020 Consent [id number]#1.0 0CD:127 Normal [facility] Consent for Treatmenton 04-11 Consent for Treatment [id number]#1.0 0CD:127 Normal [facility] Discharge Instructionson Discharge Instructions [id number]#1.0 0CD:127 [facility] History and Physicalon 05-01 History and Physical [id number]#1.0 0CD:127 Normal [facility] Inpatient Patient Summaryon 05-01-2020 Inpatient Patient Summary [address] [address] [facility] Clinical Discharge Instructions PERSON INFORMATION Name: ADRIANA DINERO [facility]#:[id number] PHYSICIANS Admitting Physician: Reid NIEVES MD Attending Physician: Reid NIEVES MD PCP: TOBY QUINTANA MD Discharge Diagnosis: Antral ulcer Comment: PATIENT EDUCATION INFORMATION Instructions: Medication Leaflets: Follow up: With: Address: When: [facility] [address] [place] [address] Within 2 weeks Type Location Start [facility] Follow Up [facility] 05/22/2020 2:15 PM 05/22/2020 2:30 PM Confirmed MEDICATION LIST Medications to Continue Taking That Have Changed [facility] [facility], [address], [place] [id number], [phone] START: omeprazole (omeprazole 40 mg Cap-DR) 1 [...] Mouth every 8 hours. Refills: 1. Comment: [facility] IntraOperative Documentson 0 05-01-2020 IntraOperative Documents [id number]#1.0 0CD:127 [facility] IntraOperative Documents [id number] 0CD:127 [facility] Main OR PACU I Recordon 04-11 Main OR PACU I Record PACU Phase I Document Type FT Summary Primary Physician: Reid NIEVES MD Finalized Date/Time: 05/01/20 09:14:39 Pt. Name: ADRIANA DINERO Shoshana Jerome/Sex: 1955 Female Med Rec #: [id number] Physician: Reid NIEVES MD Financial #: [id number] Pt. Type: O Room/Bed: / Admit/Disch: 05/01/20 [...] Ami Donaldson RN 05/01/20 09:14 [facility] Main OR Preoperative Recordo n 05-01-2020 Main OR Preoperative Record Holding Area Document Type FT Summary Primary Physician: Reid NIEVES MD Finalized Date/Time: 05/01/20 07:37:17 Pt. Name: ADRIANA DINERO/Sex: 1955 Female Med Rec #: [id number] Physician: Reid NIEVES MD Financial #: [id number] Pt. Type: O Room/Bed: / Admit/Disch: 05/01/20 [...] By: Lizbeth Diamond RN 05/01/20 07:37 Normal [facility] Monitor Recordon 05-01-2020 Monitor Record [id number]. 00CD:127 Normal [facility] Patient Education - Texton 0 05-01-2020 Patient Education - Text Normal [facility] Ambulatory Clinical Summaryo n 04-24-2020 Ambulatory Clinical Summary {[id number]}CD:[id number] Normal [facility] Auto Diffon 04-24-2020 Basophils/100 WBC (Bld) 0.5 % Normal 0.0-2.0 [facility] Comment on above: Order Comment: Order Added by Discern Expert. Performed By: #### 2 258187, 9336110, 0159825, 9577658, [id number] #### [facility] [address] [place] [address] Basophils/Leukocytes Auto (Bld) [Pure # fraction] 0.0 E9/L Normal 0.0-0.2 [facility] Comment on above: Order Comment: Order Added by Discern Expert. Performed By: #### 2 917901, 2653457, 8746018, 3298230, [id number] #### [facility] [address] [place] [address] Eosinophils/100 WBC (Bld) 2.9 % Normal 0.0-8.0 [facility] Comment on above: Order Comment: Order Added by Discern Expert. Performed By: #### 2 747328, 7039755, 8149159, 8417489, 11049881 #### [facility] [address] [place] [address] Eosinophils/Leukocyt es Auto (Bld) [Pure # fraction] 0.3 E9/L Normal 0.0-0.5 [facility] Comment on above: Order Comment: Order Added by Discern Expert. Performed By: #### 2 121459, 0631052, 7403457, 1663942, [id number] #### [facility] [address] [place] [address] Lymphocytes/100 WBC (Bld) 23.7 % Normal 14.0-50.0 [facility] Comment on above: Order Comment: Order Added by Discern Expert. Performed By: #### 2 857011, 6395859, 8480105, 9210537, 45041266 #### [facility] [address] [place] [address] Lymphocytes/Leukocyt es Auto (Bld) [Pure # fraction] 2.2 E9/L Normal 1.0-4.0 [facility] Comment on above: Order Comment: Order Added by Discern Expert. Performed By: #### 2 030960, 6628071, 8381776, 6386481, [id number] #### [facility] [address] [place] [address] Monocytes/100 WBC (Bld) 7.4 % Normal 4.0-14.0 [facility] Comment on above: Order Comment: Order Added by Discern Expert. Performed By: #### 2 555457, 1277285, 4002178, 7009500, [id number] #### [facility] [address] [place] [address] Monocytes/Leukocytes Auto (Bld) [Pure # fraction] 0.7 E9/L Normal 0.2-1.0 [facility] Comment on above: Order Comment: Order Added by Discern Expert. Performed By: #### 2 946153, 1020285, 9366453, 9372303, [id number] #### [facility] [address] [place] [address] Neutrophils/100 WBC (Bld) 65.5 % Normal 36.0-75.0 [facility] Comment on above: Order Comment: Order Added by Discern Expert. Performed By: #### 2 820077, 5166125, 7376626, 5757904, 83400455 #### [facility] [address] [place] [address] Neutrophils/Leukocyt es Auto (Bld) [Pure # fraction] 6.0 E9/L Normal 2.0-7.5 [facility] Comment on above: Order Comment: Order Added by Discern Expert. Performed By: #### 2 965661, 4059618, 9149413, 9573440, [id number] #### [facility] [address] [place] [address] CBC w/ Auto Diffon 0 Erythrocyte distribution width (RBC) [Ratio] 16.1 % High 10.9-14.2 [facility] Comment on above: Performed By: #### 2 087878, 1911256, 1475303, 6441119, [id number] #### [facility] [address] [place] [address] Hematocrit (Bld) [Volume fraction] 45.1 % Normal 34.0-46.0 [facility] Comment on above: Performed By: #### 2 664567, 2138477, 7924628, 3360332, 17579403 #### [facility] [address] [place] [address] Hemoglobin (Bld) [Mass/Vol] 15.0 g/dL Normal 12.0-16.0 [facility] Comment on above: Performed By: #### 2 164435, 3551239, 3481109, 4794776, 53671439 #### [facility] [address] [place] [address] 1949[address] MCH (RBC) [Entitic mass] 27.2 pg Normal 27.0-34.0 [facility] Comment on above: Performed By: #### 2 012557, 1421532, 8990227, 2827365, [id number] #### [facility] [address] [place] [address]856 MCHC (RBC) [Mass/Vol] 33.2 g/dL Normal 31.4-36.0 [facility] Comment on above: Performed By: #### 2 471575, 3845688, 8355067, 9300516, 32491673 #### [facility] [address] [place] [address]478 MCV (RBC) [Entitic vol] 82.0 fL Normal 80.0-100.0 [facility] Comment on above: Performed By: #### 2 747056, 6373200, 6848475, 0421599, [id number] #### [facility] [address] [place] [address] Platelet mean volume (Bld) [Entitic vol] 7.3 fL Normal 6.4-10.8 [facility] Comment on above: Performed By: #### 2 007988, 3487373, 5090558, 3987523, 04396143 #### [facility] [address] [place] [address]44[address] Platelets (Bld) [#/Vol] 253.0 E9/L Normal 150.0-500.0 [facility] Comment on above: Performed By: #### 2 038769, 5238409, 8344992, 9602648, 68930929 #### [facility] [address] [place] [address]154 RBC (Bld) [#/Vol] 5.5 E12/L Normal 4.3-5.9 [facility] Comment on above: Performed By: #### 2 324143, 9837642, 3355783, 1959860, 18096234 #### [facility] [address] [place] [address] WBC corrected for nucl RBC Auto (Bld) [#/Vol] 9.1 E9/L Normal 4.0-11.0 [facility] Comment on above: Performed By: #### 2 777055, 7778402, 2992754, 4056957, 52157545 #### [facility] [address] [place] [address] CMPon 04-24-2020 Albumin [Mass/Vol] 3.7 g/dL Normal 3.3-5.0 [facility] Comment on above: Performed By: #### 2 170722, 8366855, 0469025, 8280070, [id number] #### [facility] [address] [place], [place] [id number] Albumin [Mass/Vol] 1.0 g/dL Low 1.1-2.2 [facility] Comment on above: Performed By: #### 2 939885, 6997326, 4232007, 5803140, [id number] #### [facility] [address] [place] [address] ALP [Catalytic activity/Vol] 107 Int._Unit/L High 21-98 [facility] Comment on above: Performed By: #### 2 870907, 7440993, 0454176, 4774352, [id number] #### [facility] [address] [place] [address] ALT No additional P-5'-P [Catalytic activity/Vol] 17 Int._Unit/L Normal 6-46 [facility] Comment on above: Performed By: #### 2 956331, 5377510, 0519489, 6432818, 64059489 #### [facility] [address] [place] [address] Anion gap [Moles/Vol] 11 mmol/L Normal 6-16 [facility] Comment on above: Performed By: #### 2 388430, 7905181, 0682281, 6446200, 82553009 #### [facility] [address] [place] [address] AST [Catalytic activity/Vol] 21 Int._Unit/L Normal 5-43 [facility] Comment on above: Performed By: #### 2 226199, 2853360, 0794090, 0714820, 05098478 #### [facility] [address] [place] [address] Bilirubin [Mass/Vol] 0.5 mg/dL Normal 0.0-1.1 [facility] Comment on above: Performed By: #### 2 852723, 8412135, 5335147, 7169799, 75735080 #### [facility] [address] [place] [address] Calcium [Mass/Vol] 9.0 mg/dL Normal 8.9-11.1 [facility] Comment on above: Performed By: #### 2 085644, 4469818, 2129905, 6397894, 97231047 #### [facility] [address] [place] [address] Chloride [Moles/Vol] 107 mmol/L Normal 101-111 [facility] Comment on above: Performed By: #### 2 101101, 5383395, 4102165, 9651331, 35704115 #### [facility] [address] [place] [address] CO2 [Moles/Vol] 27 mmol/L Normal 21-31 [facility] Comment on above: Performed By: #### 2 856594, 1726479, 7494299, 3252305, 13385205 #### [facility] [address] [place] [address] Creatinine [Mass/Vol] 0.8 mg/dL Normal 0.5-1.3 [facility] Comment on above: Performed By: #### 2 127048, 1398444, 8882921, 2851828, 09048865 #### [facility] [address] [place] [address] Globulin (S) [Mass/Vol] 3.7 g/dL Normal 1.4-4.0 [facility] Comment on above: Performed By: #### 2 659421, 3586021, 4234475, 2132023, 36414741 #### [facility] [address] [place] [address] Glucose [Mass/Vol] 134 mg/dL Normal 55-199 [facility] Comment on above: Result Comment: If t his glucose result represents a fasting glucose, interpretation should refer to the following reference range: 55-99 mg/dL Performed By: #### 2 833916, 4812301, 0742733, 5445124, 16451777 #### [facility] [address] [place] [address] Potassium [Moles/Vol] 3.9 mmol/L Normal 3.5-5.3 [facility] Comment on above: Performed By: #### 2 162292, 8935490, 2178161, 1327169, 66353633 #### [facility] [address] [place] [address] Protein [Mass/Vol] 7.4 g/dL Normal 6.0-7.8 [facility] Comment on above: Performed By: #### 2 878728, 7585698, 4635238, 5067106, 77835751 #### [facility] [address] [place] [address] Sodium [Moles/Vol] 141 mmol/L Normal 135-145 [facility] Comment on above: Performed By: #### 2 543356, 7745330, 1771221, 8131539, 02046339 #### [facility] [address] [place] [address] Urea nitrogen [Mass/Vol] 17 mg/dL Normal 5-21 [facility] Comment on above: Performed By: #### 2 022207, 2865590, 3268289, 2560865, 16033929 #### [facility] [address] [place] [address] Urea nitrogen/Creatinine [Mass ratio] 21 No Units High 10-20 [facility] Comment on above: Performed By: #### 2 053576, 0731133, 5432256, 8224697, 99851821 #### [facility] [address] [place] [address] Consent for Treatmenton 04-10 Consent for Treatment [id number] 0CD:127 Normal [facility] Lipase Levelon 04-24-2020 Lipase [Catalytic activity/Vol] 40 unit/L Normal 13-58 [facility] Comment on above: Performed By: #### 2 270879, 2319363, 1141513, 5597505, 25495047 #### [facility] [address] [place] [address] Physician Orderon 04-24-2020 Physician Order [id number] CD:127 Normal [facility] eGFRon 04-24-2020 GFR/1.73 sq M predicted among blacks MDRD (S/P/Bld) [Vol rate/Area] mL/min/{1.73_m2} Normal >=59 [facility] Comment on above: Order Comment: Order added by Discern Expert. Result Comment: eGFR is race adjusted. AA=. Performed By: #### 2 727065, 9810242, 3263889, 2468957, 22660679 #### [facility] [address] [place] [address] GFR/1.73 sq M predicted among non-blacks MDRD (S/P/Bld) [Vol rate/Area] mL/min/{1.73_m2} Normal >=59 [facility] Comment on above: Order Comment: Order added by Discern Expert. Result Comment: Licensed Insurance Agent farhan kidney disease could be indicated at eGFR's of less than 60 mL/min/1.73m2. Kidney failure is indicated at less than 15 mL/min/1.73m2. Performed By: #### 2 828544, 7459364, 1681581, 9679342, 19985323 #### [facility] [address] [place] [address] PROGRESSon 11-04-2019 PROGRESS HNO ID: [id number] Author: Bridger Ma Service: ? Author Type: Physician Type: Progress Notes Filed: 11/04/2019 5:12 PM Note Text: Bridger Ma MD Department of Orthopaedics Orthopaedics [address] [address] Dept: [phone] October 05, 2019 CHIEF COMPLAINT: New Patient [...] electronic medical record. Caitlyn Cantu, LIZZY [address] [facility] [address] Toby Quintana MD [address] [place] [phone] This note was partially generated using Relative[employer] voice recognition system, and there may be some incorrect words, spellings, and punctuation that were not noted in checking the note before saving. Brdiger Ma MD Normal 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 Patient had an x-ray done at [facility] on 11/02/18 and a MRI on 11/30/18. Patient hand carried copies of the reports and films on a CD. with patient today. Referred by Caitlyn Cantu. Taking Langdon and Naproxen for the pain and does not help. Using a walker today and as needed at home. Bridger Ma MD 11/04/2019 5:12 PM Signed Bridger Ma MD Department of Orthopaedics Orthopaedics [address] [place] [address] Dept: [phone] October 05, 2019 CHIEF COMPLAINT: New Patient [...] or electronic medical record. LIZZY Graham [address] [facility] [address] Toby Quintana MD [address] [place] [phone] This note was partially generated using [employer] voice recognition system, and there may be some incorrect words, spellings, and punctuation that were not noted in checking the note before saving. Bridger Ma MD Referring Provider: CAITLYN CANTU [[id number]] Allergies As of Date: 10/05/2019 Noted Allergy [...] mg injection (CELESTONE)Disp: Rfl: [facility] [[id number]] Order #: [id number]: 1 Large Joint Arthro/Inj: R knee joint [VCF979] Order #: [id number] betamethasone acetate-betamethasone sodium phosphate 6 mg injection [...] BRIDGER MA MD on 11/04/19 [facility] PROGRESSon 10-05-2019 PROGRESS HNO ID: [id number] Author: Eleanor Talbot Ma Service: ? Author Type: ? Type: Progress Notes Filed: 11/04/2019 5:12 PM Note Text: Patient presents with: New Patient: Right knee pain - Ref. 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 Patient had an x-ray done at [facility] on 11/02/18 and a MRI on 11/30/18. Patient hand carried copies of the reports and films on a CD. with patient today. Referred by Caitlyn Cantu. Taking Langdon and Naproxen for the pain and does not help. Using a walker today and as needed at home. Normal [facility] CREATININEon 08-26-2019 Creatinine [Mass/Vol] 0.80 mg/dL Normal 0.50 - 1.05 [facility] Comment on above: Performed By: #### C REAT #### [address] [address] Creatinine [Mass/Vol] mg/dL Normal >60 [facility] Comment on above: Performed By: #### C REAT #### [address] [address] Result Comment: CALC ULATIONS OF ESTIMATED GFR ARE PERFORMED USING THE MDRD STUDY EQUATION FOR THE IDMS-TRACEABLE CREATININE METHODS. CLIN CHEM 2007;53:766-72 ELECTROLYTE PANELon 08-26-20 19 Anion gap [Moles/Vol] 14 mmol/L Normal - 20 [facility] Comment on above: Performed By: #### E LECT #### [address] [address] Chloride [Moles/Vol] 104 mmol/L Normal 98 - 107 [facility] Comment on above: Performed By: #### E LECT #### [address] [address] HCO3 (Bld) [Moles/Vol] 29 mmol/L Normal 21 - 32 [facility] Comment on above: Performed By: #### E LECT #### [address] [address] Potassium [Moles/Vol] 4.6 mmol/L Normal 3.5 - 5.3 [facility] Comment on above: Performed By: #### E LECT #### [address] [address] Sodium [Moles/Vol] 142 mmol/L Normal 136 - 145 [facility] Comment on above: Performed By: #### E LECT #### [facility] [address] [place] [address] UREA NITROGENon 08-26-2019 Urea nitrogen [Mass/Vol] 14 mg/dL Normal 6 - 23 [facility] Comment on above: Performed By: #### U CARLOS #### [address] [address] [facility] CARDIAC STRESS/REST INJE CTIONon 08-25-2019 [facility] CARDIAC STRESS/REST INJECTION Patient Name: ADRIANA DINERO STUDY: MYOCARDIAL PERFUSION STRESS TEST WITH LEXISCAN Performing facility: [facility], [address] [place] [address], [address], [place] [address] [facility] Provider: GURU LU PCP: Dr. Poli QUINTANA Supervising provider: Poli VILLAFANA INDICATION: DYSPNEA EDEMA HISTORY: Gender: F; Age: 64 y/o ; Height: 170.18 cm; Weight: 127.504224 kg. SOB High Cholesterol; Family HX CAD; PALPITATIONS COMPARISON: ACCESSION NUMBER(S): [id number] ORDERING CLINICIAN: IBAN LU TECHNIQUE: TWO DAY [...] Electronically signed by: IBAN LU MD Normal [facility] OT-MRI KNEE RT WO CON IMPORT on 07-27-2019 OT-MRI KNEE RT WO CON IMPORT Images were obtained outside of [facility] [id number] Normal [facility] CNOVon 07-07-2019 CNOV Office Visit (SPNMED ) ADRIANA DINERO ([id number]) 1955 F Date Time Provider Department 07/07/19 9:40 AM [facility] During your visit today, we recorded the following information about you: Pulse Blood pressure Weight Height 80/minute 126/55 124.1 kg 1.676 m LIZZY Graham 07/07/2019 1:08 PM Signed BEEVRLEY Lopez [facility] [address] [place] [address] 07/07/2019 Assessment Diagnosis: Encounter Diagnosis ICD-10-CM 1. [...] told for multiple years that she has axiu-yc-ftwo arthritis in the right knee and this [...] record for those providers who practice within [facility] or with access to [employer] via MD Connect, or via letter. - [...] past--performed in [address] Jones in [place]. The procedure was a spinal laminectomy and fusion L2-4, and subsequent revision L2-5 lami/fusion with posterior hardware and interbody cages. 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 Author Type: Physician Rubber Goods Inspector Type: Progress Notes Filed: 07/07/2019 1:08 PM Note Text: [facility] [address] [place] [address] 07/07/2019 Assessment Diagnosis: Encounter Diagnosis ICD-10-CM 1. [...] told for multiple years that she has jbvt-kd-xobz arthritis in the right knee and this [...] record for those providers who practice within [facility] or with access to [employer] via [employer], or via letter. SUBJECTIVE: [...] past--performed in [address] Jones in [place]. The procedure was a spinal laminectomy and fusion L2-4, and subsequent revision L2-5 lami/fusion with posterior hardware and interbody cages. 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 IMAGING STUDIES: See above Normal [facility] CT-CT cervical spine w con I MPORTon 04-08-2019 CT-CT cervical spine w con IMPORT Images were obtained outside of [facility] [id number] Normal [facility] CT-CT cervical spine w con IMPORT Images were obtained outside of [facility] [id number] Normal [facility] CT-CT cervical spine w con IMPORT Images were obtained outside of [facility] [id number] Normal [facility] CT-CT lumbar spine w con IMP Edi 04-08-2019 CT-CT lumbar spine w con IMPORT Images were obtained outside of [facility] [id number] Normal [facility] CT-CT lumbar spine w con IMPORT Images were obtained outside of [facility] [id number] Normal [facility] CT-CT lumbar spine w con IMPORT Images were obtained outside of [facility] [id number] Normal [facility] OT-IR myelogram spine total IMPORTon 04-08-2019 OT-IR myelogram spine total IMPORT Images were obtained outside of [facility] [id number] Normal [facility] OT-IR myelogram spine total IMPORT Images were obtained outside of [facility] [id number] Normal [facility] OT-IR myelogram spine total IMPORT Images were obtained outside of [facility] [id number] Normal [facility] OT-MRI C-SPINE WO CON IMPORT on 02-25-2019 OT-MRI C-SPINE WO CON IMPORT Images were obtained outside of [facility] [id number] Normal [facility] OT-XR KNEE RT 4V OR > IMPORT on 11-30-2018 OT-XR KNEE RT 4V OR > IMPORT Images were obtained outside of [facility] [id number] [facility] Vital Signs Date Time Vital Sign Value Performing Clinician Facility 08-12-2024 09: Body height 165.1 cm [facility] 08-12-2024 09: Body mass index (BMI) [Ratio] 39.2 kg/m2 [facility] 08-12-2024 09: Body weight 106.76 kg [facility] 08-12-2024 09: Diastolic blood pressure 72 mm[Hg] [facility] 08-12-2024 09: Heart rate 75 /min [facility] 08-12-2024 09:23-0400 Respiratory rate 16 /min [facility] 08-12-2024 09:23-0400 SaO2% (BldA) [Mass fraction] 96 % [facility] 08-12-2024 09:23-0400 Systolic blood pressure 128 mm[Hg] [facility] 04-30-2024 09:12-0400 Body height 165.1 cm [facility] 04-30-2024 09:12-0400 Body mass index (BMI) [Ratio] 39.6 kg/m2 [facility] 04-30-2024 09:12-0400 Body weight 107.95 kg [facility] 04-30-2024 09:12-0400 Diastolic blood pressure 74 mm[Hg] [facility] 04-30-2024 09:12-0400 Heart rate 75 /min [facility] 04-30-2024 09:12-0400 Systolic blood pressure 109 mm[Hg] [facility] 03-22-2024 13:18-0400 Body height 165.1 cm [facility] 03-22-2024 13:18-0400 Body mass index (BMI) [Ratio] 39.7 kg/m2 [facility] 03-22-2024 13:18-0400 Body weight 108.4 kg [facility] 03-22-2024 13:18-0400 Diastolic blood pressure 77 mm[Hg] [facility] 03-22-2024 13:18-0400 Heart rate 75 /min [facility] 03-22-2024 13:18-0400 Systolic blood pressure 127 mm[Hg] [facility] 02-10-2024 13:04-0400 Body height 167.64 cm [facility] 02-10-2024 13:04-0400 Body mass index (BMI) [Ratio] 38.5 kg/m2 [facility] 02-10-2024 13:04-0400 Body weight 108.4 kg [facility] 02-10-2024 13:04-0400 Diastolic blood pressure 73 mm[Hg] [facility] 02-10-2024 13:04-0400 Heart rate 85 /min [facility] 02-10-2024 13:04-0400 Systolic blood pressure 105 mm[Hg] [facility] 01-19-2024 08:44-0400 Body height 167.64 cm [facility] 12-30-2023 09:55-0500 Body height 167.64 cm [facility] 12-30-2023 09:55-0500 Body mass index (BMI) [Ratio] 38.9 kg/m2 [facility] 12-30-2023 09:55-0500 Body weight 109.31 kg [facility] 12-30-2023 09:55-0500 Diastolic blood pressure 76 mm[Hg] [facility] 12-30-2023 09:55-0500 Heart rate 69 /min [facility] 12-30-2023 09:55-0500 Systolic blood pressure 120 mm[Hg] [facility] 12-09-2023 10:32-0500 Diastolic blood pressure 80 mm[Hg] Iban Lu MD Work Phone: [facility] 12-09-2023 10:32-0500 Systolic blood pressure 130 mm[Hg] Iban Lu MD Work Phone: [facility] 12-09-2023 09:46-0500 Body height 167.6 cm Iban Lu MD Work Phone: [facility] 12-09-2023 09:46-0500 Body mass index (BMI) [Ratio] 39.06 kg/m2 Iban Lu MD Work Phone: [facility] 12-09-2023 09:46-0500 Body weight 109.77 kg Iban Lu MD Work Phone: [facility] 12-09-2023 09:46-0500 Heart rate 68 /min Iban Lu MD Work Phone: [facility] 08-20-2023 09:00-0400 Body height 167.64 cm Toby Quintana Other [employer] Other 08-20-2023 09:00-0400 Body mass index (BMI) [Ratio] 38.38 kg/m2 Toby Quintana Other [employer] Other 08-20-2023 09:00-0400 Body weight 107.87 kg Toby Quintana Other [employer] Other 08-20-2023 09:00-0400 Diastolic blood pressure 75 mm[Hg] Toby Quintana Other [employer] Other 08-20-2023 09:00-0400 Systolic blood pressure 108 mm[Hg] Toby uQintana Other [employer] Other 04-24-2023 11:15-0400 Body height 167.64 cm Toby Quintana Other [employer] Other 04-24-2023 11:15-0400 Body mass index (BMI) [Ratio] 38.73 kg/m2 Toby Quintana Other [employer] Other 04-24-2023 11:15-0400 Body weight 108.86 kg Toby Quintana Other [employer] Other 04-24-2023 11:15-0400 Diastolic blood pressure 79 mm[Hg] Toby Quintana Other [employer] Other 04-24-2023 11:15-0400 Systolic blood pressure 114 mm[Hg] Toby Quintana Other [employer] Other 02-07-2023 09:30-0400 Body height 167.64 cm Toby Quintana Other [employer] Other 02-07-2023 09:30-0400 Body mass index (BMI) [Ratio] 39.99 kg/m2 Toby Quintana Other [employer] Other 02-07-2023 09:30-0400 Body weight 112.4 kg Toby Quintana Other [employer] Other 02-07-2023 09:30-0400 Diastolic blood pressure 68 mm[Hg] Toby Quintana Other [facility] [employer] Other 02-07-2023 09:30-0400 Respiratory rate 18 /min Toby Quintana Other [employer] Other 02-07-2023 09:30-0400 SaO2% (BldA) [Mass fraction] 93 % Toby Quintana Other [employer] Other 02-07-2023 09:30-0400 Systolic blood pressure 142 mm[Hg] Toby Quintana Other [employer] Other 01-08-2023 10:00-0500 Body height 167.64 cm Samuel Ruther [place] II Other [employer] Other 01-08-2023 10:00-0500 Body mass index (BMI) [Ratio] 40.19 kg/m2 Samuel Ruther [place] II Other [employer] Other 01-08-2023 10:00-0500 Body weight 112.95 kg Samuel Ruther [place] II Other [employer] Other 12-09-2022 13:25-0500 Body height 167.64 cm Toby Quintana Work Phone: [facility] DO Work Phone: 12-09-2022 13:25-0500 Body mass index (BMI) [Ratio] 40.03 kg/m2 Toby Quintana Work Phone: [facility] 250 DO Work Phone: 12-09-2022 13:25-0500 Body surface area Derived from formula 2.19 m2 Toby Quintana Work Phone: [facility] 250 DO Work Phone: 12-09-2022 13:25-0500 Body weight 112.49 kg Toby Quintana Work Phone: [facility] 250 DO Work Phone: 12-09-2022 13:25-0500 Diastolic blood pressure 80 mm[Hg] Toby Quintana Work Phone: [facility] 250 DO Work Phone: 12-09-2022 13:25-0500 Heart rate 78 /min Toby Quintana Work Phone: [facility] 250 DO Work Phone: 12-09-2022 13:25-0500 Systolic blood pressure 118 mm[Hg] Toby Quintana Work Phone: [facility] 250 DO Work Phone: 11-22-2022 09:00-0500 Body height 167.64 cm Leeann Blades Other [employer] Other 11-22-2022 09:00-0500 Body mass index (BMI) [Ratio] 39.54 kg/m2 Leeann Blades Other [employer] Other 11-22-2022 09:00-0500 Body weight 111.13 kg Leeann Blades Other [employer] Other 09-04-2021 13:27-0400 Body height 170.18 cm Toby Quintana Work Phone: [facility] 250 DO Work Phone: 09-04-2021 13:27-0400 Body mass index (BMI) [Ratio] 39.78 kg/m2 Toby Quintana Work Phone: [facility] 250 DO Work Phone: 09-04-2021 13:27-0400 Body surface area Derived from formula 2.24 m2 Toby Quintana Work Phone: [facility] 250 DO Work Phone: 09-04-2021 13:27-0400 Body weight 115.21 kg Toby Quintana Work Phone: [facility] 250 DO Work Phone: 09-04-2021 13:27-0400 Diastolic blood pressure 78 mm[Hg] Toby Quintana Work Phone: [facility] 250 DO Work Phone: 09-04-2021 13:27-0400 Heart rate 80 /min Toby Quintana Work Phone: [facility] 250 DO Work Phone: 09-04-2021 13:27-0400 Systolic blood pressure 104 mm[Hg] Toby Quintana Work Phone: [facility] 250 DO Work Phone: Encounters Encounter Date Encounter Type Care Provider Facility Start: 08-12-2024 End: 08-12-2024 ambulatory [facility] Work Phone: Start: 08-12-2024 End: 08-12-2024 Patient encounter procedure [facility] Work Phone: Start: 04-30-2024 End: 04-30-2024 ambulatory [facility] Work Phone: Start: 04-30-2024 End: 04-30-2024 Patient encounter procedure [facility] Work Phone: Start: 03-22-2024 End: 03-22-2024 ambulatory [facility] Work Phone: Start: 03-22-2024 End: 03-22-2024 Patient encounter procedure [facility] Work Phone: Start: 02-10-2024 End: 02-10-2024 ambulatory [facility] [facility] Work Phone: Start: 02-10-2024 End: 02-10-2024 Patient encounter procedure [facility] Work Phone: Start: 01-19-2024 End: 01-19-2024 Patient encounter procedure [facility] Work Phone: Start: 01-14-2024 Non-patient / Non-visit [facility] Work Phone: Start: 01-05-2024 Non-patient / Non-visit [facility] Work Phone: Start: 12-30-2023 Patient encounter procedure [facility] Start: 12-30-2023 End: 12-30-2023 ambulatory [facility] Work Phone: Start: 12-30-2023 End: 12-30-2023 Patient encounter procedure [facility] Work Phone: Start: 12-19-2023 End: 12-19-2023 ambulatory Toby Quintana Other [employer] Other Start: 12-19-2023 Telephone encounter Toby Quintana [facility] Start: 12-17-2023 End: 12-17-2023 ambulatory Toby Quintana Other [employer] Other Start: 12-17-2023 Telephone encounter Toby Quintana [facility] Start: 12-16-2023 (Televisit) Televisit Toby Quintana [facility] Start: 12-16-2023 End: 12-16-2023 ambulatory Toby Quintana Other [employer] Other Start: 12-09-2023 End: 12-09-2023 Office outpatient visit 25 minutes Iban Lu MD Work Phone: [facility] Comment on above: Supraventricular tac hycardia by ECG (Primary Dx); Mixed hyperlipidemia; Palpitations; Class II obesity Start: 12-09-2023 End: 12-09-2023 ambulatory IBAN Ashton [facility] Start: 12-08-2023 End: 12-08-2023 ambulatory Toby Quintana Other [employer] Other Start: 12-08-2023 Telephone encounter Toby Quintana [facility] Start: 11-04-2023 End: 11-04-2023 ambulatory Toby Pat Other [employer] Other Start: 11-04-2023 Telephone encounter Toby Pat [facility] Start: 10-21-2023 (Televisit) Televisit Toby Quintana [facility] Start: 10-21-2023 End: 10-21-2023 ambulatory Toby Quintana Other [employer] Other Start: 10-21-2023 End: 10-21-2023 Patient encounter procedure [facility] Work Phone: Start: 10-20-2023 End: 10-20-2023 ambulatory Toby Quintana Other [employer] Other Start: 10-20-2023 Telephone encounter Toby Pat [facility] Start: 09-25-2023 (Televisit) Televisit Toby Quintana [facility] Start: 09-25-2023 End: 09-25-2023 ambulatory Toby Quintana Other [employer] Other Start: 09-22-2023 (Televisit) Televisit Toby Quintana [facility] Start: 09-22-2023 End: 09-22-2023 ambulatory Toby Quintana Other [employer] Other Start: 09-22-2023 Telephone encounter Toby Quintana [facility] Start: 08-20-2023 End: 08-20-2023 ambulatory Toby Quintana Other [employer] Other Start: 08-20-2023 Patient encounter procedure Toby Quintana [facility] Start: 05-22-2023 Telephone encounter Toby eugene Work Phone: [facility] 600 DO Work Phone: Start: 05-12-2023 End: 05-12-2023 ambulatory Toby Quintana Other [employer] Other Start: 05-12-2023 Telephone encounter Toby Quintana [facility] Start: 04-24-2023 End: 04-24-2023 ambulatory Toby Quintana Other [employer] Other Start: 04-24-2023 Office outpatient vi sit 15 minutes Toby Quintana [facility] Start: 04-11-2023 End: 04-11-2023 ambulatory Toby Quintana Other [employer] Other Start: 04-11-2023 Telephone encounter Toby Quintana [facility] Start: 03-13-2023 End: 03-13-[address] EVIN BYERS Facility:UNKNOWN Start: 03-13-[address] Toby Quintana Facility:[id number] Start: 02-07-2023 End: 02-07-2023 ambulatory Toby Quintana Other [employer] Other Start: 02-07-2023 Patient encounter procedure Toby Quintana [facility] Start: 02-03-2023 End: 02-03-2023 ambulatory Leeann Blades Other [employer] Other Start: 02-03-2023 Telephone encounter Leeann Blades [facility] Start: 01-27-2023 End: 01-27-2023 ambulatory Leeann Blades Other [employer] Other Start: 01-27-2023 Telephone encounter Leeann Blades [facility] Start: 01-21-[address] TOBY QUINTANA [facility] ity:H1 Start: 01-16-2023 End: 01-16-2023 ambulatory Samuel Guajardoisle II Other [employer] Other Start: 01-16-2023 Telephone encounter Samuel Chatman II [facility] Start: 01-08-2023 FQHC visit new patient Samuel Goodman nayeli II [facility] Start: 01-08-2023 End: 01-08-2023 ambulatory Samuel Chatman II Facility:[facility] Start: 01-08-2023 End: 01-08-2023 ambulatory MD Toby Quintana Work Phone: [facility] Work Phone: Start: 01-08-2023 End: 01-08-2023 Patient encounter procedure MD Toby Quintana Work Phone: [facility] Start: 01-02-2023 End: 01-02-2023 ambulatory Toby Quintana Other [employer] Other Start: 01-02-2023 Telephone encounter Leeann Blades [facility] Start: 12-30-2022 End: 12-30-2022 ambulatory Leeann Blades Other [employer] Other Start: 12-30-2022 Telephone encounter Leeann Blades [facility] Start: 12-26-2022 End: 12-26-2022 ambulatory Leeann Blades Other [facility] Other Start: 12-26-2022 Telephone encounter Leeann Blades F [facility] Start: 12-19-2022 End: 12-19-2022 ambulatory Leeann Blades Other [facility] Other Start: 12-19-2022 Telephone encounter Leeann Blades F [facility] Start: 12-17-2022 End: 12-17-2022 ambulatory Toby Quintana Other [facility] Other Start: 12-17-2022 Telephone encounter Toby Quintana [facility] Start: 12-10-2022 End: 12-10-2022 ambulatory Toby Quintana Other [facility] Other Start: 12-10-2022 Telephone encounter Toby Quintana [facility] Start: 12-09-2022 Office outpatient vi sit 25 minutes Toby Quintana Work Phone: [facility] 250 DO Work Phone: Start: 12-09-[address] Iban Lu Facility: Start: 11-25-2022 End: 11-25-2022 ambulatory Leeann Blades Other [facility] Other Start: 11-25-2022 Telephone encounter Leeann Blades [facility] Start: 11-22-2022 Office outpatient ne w 45 minutes Leeann Blades [facility] Start: 11-22-2022 End: 11-22-2022 ambulatory Leeann Blades Facility:[facility] Start: 11-22-2022 End: 11-22-2022 ambulatory MD Toby Quintana Work Phone: [facility] Work Phone: Start: 11-22-2022 End: 11-22-2022 Patient encounter procedure MD Toby Quintana Work Phone: [facility] Work Phone: Start: 11-05-2022 Adult health examination Nannette Quintana Other [facility] Other Start: 11-05-2022 Pre-procedure evalua tion check Toby Quintana Other [facility] Other Start: 10-04-2022 End: 10-05-[address] SHALA OMER Facility:H1 Start: 09-16-2022 Rx Renewal Toby Quintana Work Phone: [facility] 250 DO Work Phone: Start: 07-24-2022 End: 07-24-[address] TOBY QUINTANA Facility:[facility]1 Start: 07-22-2022 End: 07-22-[address] LAUREL BRAVO Facility:[facility]1 Start: 04-18-2022 Encounter for genera l adult medical examination without abnormal findings DR TOBY QUINTANA [facility] Start: 04-13-2022 End: 04-14-[address] TOBY QUINTANA Facility:[facility]1 Start: 04-12-2022 End: 04-13-[address] TOBY QUINTANA Facility:[facility]1 Start: 04-12-2022 End: 04-13-2022 Encounter for general adult medical examination without abnormal findings DR TOBY QUINTANA Facility:[facility]1 Start: 09-04-2021 FUV, Provider: Iban Lu, Status: Pen, Time: 2:00 PM Toby Quintana Work Phone: [facility] [address] [place] Work Phone: Start: 09-04-2021 Office outpatient vi sit 25 minutes Toby Quintana Work Phone: [facility] 250 DO Work Phone: Start: 08-30-2021 Rx Renewal Toby Quintana Work Phone: [facility] [address] [place] Work Phone: Procedures [...] procedure 12/09/2024 9:00 AM EST Office Visit [facility] [address] [address] Iban Lu MD [address] [facility] [address] [address] [facility] Start: 04-30-2024 Patient referral [facility] Work Phone: Start: 03-22-2024 Patient referral [facility] Work Phone: Start: 01-19-2024 Patient referral [facility] Work Phone: Start: 12-09-2023 End: 12-09-2024 Basic metabolic 2000 panel - Serum or Plasma Basic Metabolic Panel Lab Routine Supraventricular tachycardia by ECG Palpitations Expected: 12/09/2023 (Approximate), Expires: 12/09/2024 [facility] Service Area Work Phone: Comment on above: Expected: 12/09/2023 (Approximate), Expires: 12/09/2024 Start: 12-09-2023 FUV, Provider: Iban Lu, Status: Pen, Time: 10:00 AM FUV, Provider: Iban Lu, Status: Pen, Time: 10:00 AM [facility] 250 DO Work Phone: Start: 07-11-2023 COVID-19 Vaccine ( season) COVID-19 Vaccine ( season) [facility] Start: 07-11-2023 Influenza vaccination Influenza Vacc ine (#1) [facility] Start: 09-20-2022 FUV, Provider: Iban Lu, Status: Pen, Time: 2:20 PM FUV, Provider: Iban Lu, Status: Pen, Time: 2:20 PM [facility] 250 DO Work Phone: Start: 09-05-2022 FUV, Provider: Iban Lu, Status: Pen, Time: 11:20 AM FUV, Provider: Iban Lu, Status: Pen, Time: 11:20 AM [facility] 250 DO Work Phone: Start: 01-19-2006 Zoster Vaccines (1 o f 2) Zoster Vaccines (1 of 2) [facility] Start: 1996 Screening for malign ant neoplasm of breast Mammogram [facility] Start: 01-19-1978 DTaP/Tdap/Td Vaccine s (1 - Tdap) DTaP/Tdap/Td Vaccines (1 - Tdap) [facility] Start: 01-19-1974 [facility] Start: 01-19-1962 Pneumococcal Vaccine : 65+ Years (1 - PCV) Pneumococcal Vaccine: 65+ Years (1 - PCV) [facility] Start: 1956 Lipid panel Lipid Panel [facility] Start: 1955 Medicare Annual Wellness Visit Medicare Annual Wellness Visit (AWV) [facility] Start: 1955 Screening for malign ant neoplasm of colon [facility] Start: 1955 Screening for osteoporosis Bone Density Scan [facility] Comprehensive metabo lic 2000 panel - Serum or Plasma [facility] Patient referral [facility] Work Phone: US Lower extremity v ein - bilateral [facility] Immunizations Immunization Date Immunization Notes Care Provider Fa cility 09-06-2022 Pfizer COVID-19 Vac Bivalent 30 MCG/0.3ML Intramuscular Suspension Toby Quintana Work Phone: [facility] 250 DO Work Phone: 07-02-2021 Pfizer-BioNTech COVI D-19 Vacc 30 MCG/0.3ML Intramuscular Suspension Toby Quintana Work Phone: [facility] Comment on above: Series: 06-11-2021 Pfizer-BioNTech COVI D-19 Vacc 30 MCG/0.3ML Intramuscular Suspension Toby Quintana Work Phone: [facility] Comment on above: Series: 09-12-2014 tetanus and diphther ia toxoids, adsorbed, preservative free, for adult use (5 Lf of tetanus toxoid and 2 Lf of diphtheria toxoid) Toby Quintana Other [facility] 09-15-2013 tetanus and diphther ia toxoids, adsorbed, preservative free, for adult use (5 Lf of tetanus toxoid and 2 Lf of diphtheria toxoid) Toby Quintana Other [facility] 09-14-2013 influenza, seasonal, injectable Toby Quintana Work Phone: [facility] 09-14-2013 influenza virus vacc ine, unspecified formulation Iban Lu MD Work Phone: [facility] Work Phone: 08-10-2013 influenza virus vacc ine, unspecified formulation Toby Quintana Work Phone: [facility] 250 DO Work Phone: 07-19-2012 influenza virus vacc ine, unspecified formulation Toby Schofield Quintana Work Phone: [facility] 250 DO Work Phone: 11-10-2009 influenza virus vacc ine, unspecified formulation Toby Schofield Quintana Work Phone: [facility] 250 DO Work Phone: 08-10-2009 influenza virus vacc ine, unspecified formulation Toby Schofield Quintana Work Phone: [facility] 250 DO Work Phone: 07-14-2007 pneumococcal polysaccharide vaccine, 23 valent Toby Quintana Other [facility] Payers Date Payer Category Payer Medicare [employer] MEDICARE A ETNA MEDICARE VALUE PLAN [id number] 2023-Present [address] [place] [address] [id number] 2023 Medicare [id number] 2022 Self-pay [id number] 1959 Unknown [id number] 1959 Unknown [id number] [id number] [id number] 1956 Unknown [id number] 1956 Unknown [id number] 1956 Unknown [id number] 1956 Unknown [id number] 1956 Unknown [id number] 1956 Unknown [id number] 1956 Unknown [id number] [id number] 1956 Unknown [id number] [id number] 1956 Unknown [id number] 1956 Unknown [id number] Unknown Unknown HCAP/HFA/FAP Active [id number] Unknown [id number] Unknown [id number] Social History Date Type Detail Facility Start: 12-09-2023 No illicit drug use No illicit drug use [address] Work Phone: Comment on above: Coffee 1 cup daily; quit 1987; Start: 1955 Sex Assigned At Female F [facility] Start: 12-09-2023 Sex Assigned At N [facility] [employer] Other Start: 12-09-2023 Tobacco smoking status NHIS Ex-smoker [facility] Work Phone: History of tobacco use Current smoker [facility] Work Phone: History of tobacco use Cigarette Smoker [facility] Work Phone: Start: 12-09-2023 Tobacco use and exposure Smokeless tobacco non-user [facility] Work Phone: Start: 12-09-2023 Alcohol intake Lifetime non-d mary (finding) [facility] Work Phone: Start: 1955 [facility] Work [facility]: Start: 11-29-2023 End: 12-09-2023 Exposure to SARS-CoV-2 (event) Not sure [facility] Clinical Notes 11-22-2022 to 03-22-2024 Note Date & Type Note Facility 03-22-2024 Hospital Discharg e instructions Ambulatory OrdersReferral to Orthopedics Time Frame: 03/22/24, Location: None [facility] Work Phone: 12-17-2023 Evaluation note Encounter Date Diagnosis Assessment Notes Dec, Jaw swelling (ICD-10 - R22.0) [employer] Other 02-06-2024 Evaluation note* Encounter Date Diagnosis Assessment Notes Treatment Notes Treatment Clinical Notes Dec, Dental infection (ICD-10 - K04.7) Pt will contact her insurance, find a different dentist. Will continue antibiotic at this time. [employer] Other 01-30-2024 History of Present illness Narrative* [...] follow-up will be scheduled Iban Lu MD, [facility] Review of Systems Cardiovascular: Positive for palpitations. [...] EVENING, Disp: 225 tablet, Rfl: 0 omega 1-rsr-nxo-fish oil 360 mg-108 mg- 180 mg-1,200 mg [...] Lu MD. [facility] Work Phone: 1(606) 328-811801-30-2024 Instructions* Patient Instructions* Nataliya Manning LPN - [...] one year [facility] Work Phone: [phone]) 977-423912-12-2023 Evaluation note* Encounter Date Diagnosis Assessment Notes Treatment Notes Treatment Clinical Notes Oct, Open fracture of tooth, initial encounter (ICD-10 - S02.5XXB) Keep area clean, brush and rinse frequently. seeing dentist next week. Oct, Lumbar radiculitis (ICD-10 - M54.16) pt requests refill for her chronic back issues. We discussed her treatment plan w Dr. Byers. [employer] Other 11-16-2023 Evaluation note* Encounter Date Diagnosis Assessment Notes Treatment Notes Treatment Clinical Notes Sep, Lumbar radiculitis (ICD-10 - M54.16) CHanged pain med. Jax will call Dr. Byers's office for a change in treatment plan and an appt. Sep, Nausea & vomiting (ICD-10 - R11.2) States that zofran has not helped in the past - phenergan sent in for short term use. [employer] Other 11-13-2023 Evaluation note* Encounter Date Diagnosis Assessment Notes Treatment Notes Treatment Clinical Notes Sep, Radiculopathy, lumbar region (ICD-10 - M54.16) My staff reviewed her case with Dr. Byers's staff. She is to call their office for follow-up appointment next month. Patient does not want another injection and would rather have an ablation. Trial of tramadol sent to pharmacy. OARRS reviewed. [employer] Other 10-11-2023 Evaluation note* Encounter Date Diagnosis Assessment Notes Treatment Notes Treatment Clinical Notes Aug, Pain in right knee (ICD-10 - M25.561) Aug, Other chronic pain (ICD-10 - G89.29) Aug, Pain in left knee (ICD-10 - M25.562) [employer] Other 03-31-2023 Evaluation note* Encounter Date Diagnosis Assessment Notes Treatment Notes Treatment Clinical Notes Jan, Nausea & vomiting (ICD-10 - R11.2) Jan, Pain in right knee (ICD-10 - M25.561) Jan, Other chronic pain (ICD-10 - G89.29) Jan, Pain in left knee (ICD-10 - M25.562) [employer] Other 03-31-2023 Evaluation note* Encounter Date Diagnosis Assessment Notes Treatment Notes Treatment Clinical Notes Jan, Nausea & vomiting (ICD-10 - R11.2) chronic problem - requesting refill on Zofran Jan, Pain in right knee (ICD-10 - M25.561) Jan, Other chronic pain (ICD-10 - G89.29) Jan, Pain in left knee (ICD-10 - M25.562) [employer] Other 03-01-2023 Evaluation note* Encounter Date Diagnosis [...] She would prefer to stay close to [place]. Our office is working to get her referral to pain management near [place]. [employer] Other 01-31-2023 Evaluation note* Encounter Date Diagnosis Assessment Notes Treatment Notes Treatment Clinical Notes Nov, Lumbar pain (ICD-10 - M54.50) [employer] Other 01-13-2023 Evaluation note* Encounter Date Diagnosis Assessment Notes Treatment Notes Treatment Clinical Notes Nov, Low back pain, unspecified back pain laterality, unspecified chronicity, unspecified whether sciatica present (ICD-10 - M54.50) [employer] Other evalzozlwo noteNo assessment information available [facility] Work Phone: Evaluation noteNo InformationNort [employer] Other evaluation [employer] Other Evaluation note* Diagnosis Supraventricular tachycardia by ECG- Primary Mixed hyperlipidemia Palpitations Class II obesity documented in this encounter [facility] Work Phone: Evaluation note* Diagnosis Onset Date Resolution Status Fatigue acute Hyperlipidemia acute Lumbar radiculopathy, chronic acute Medicare annual wellness visit, subsequent acute SVT (supraventricular tachycardia) acute [facility] Work Phone: Evaluation note* Diagnosis Onset Date Resolution Status Fatigue acute Hyperlipidemia acute Lumbar radiculopathy, chronic acute Medicare annual wellness visit, subsequent acute SVT (supraventricular tachycardia) acute Lumbar radiculopathy, chronic acute [facility] Work Phone: Evaluation note* Diagnosis Onset Date Resolution Status Fatigue acute Hyperlipidemia acute Lumbar radiculopathy, chronic acute Medicare annual wellness visit, subsequent acute SVT (supraventricular tachycardia) acute Lumbar radiculopathy, chronic acute Left knee pain acute Lumbar radiculopathy, chronic acute Right knee pain acute Left knee pain acute Right knee pain acute [facility] Work Phone: Evaluation note* Diagnosis Onset Date Resolution Status Left knee pain acute Lumbar radiculopathy, chronic acute Right knee pain acute Bilateral cold feet acute Left knee pain acute Right knee pain acute Bilateral lower extremity pain acute Diminished pulses in lower extremity acute PAD (peripheral artery disease) acute [facility] Work Phone: History general Narrative - [...] Hospitalization History hysterectomy Hospitalization History pancreatitis [facility] Other History general Narrative - [facility] Other Hospital Discharge instructionsAmbulatory Orders* Referral to Vascular Surgery Time Frame: 04/30/24, Location: None Selected [facility] Work Phone: Reason for referral (narrative)* Consultation (Routine) - Authorized Specialty Diagnoses / Procedures Referred By Contac t Referred To Contact Cardiology Diagnoses Supraventricular tachycardia by ECG Procedures Follow Up In Cardiology Iban Lu MD [address] [facility] [address], [address] [address] Iban Lu MD [address] [facility] 2, [facility] [address] [place] [address] Referral ID Status Reason Start Date Expiration Date V isits Requested Visits Authorized [id number] Authorized 12/09/2023 12/08/2024 1 1 [facility] Work Phone: Reason for visit NarrativePain Medicine [facility] [employer] Other Summary Purpose Family History Unknown Family [...] and provided the patient with 2 local cook helper vegetable in town. * ASSESSMENT AND PLAN: * [...] will be scheduled * Iban Lu MD, [facility] Chief Complaint and Reason for Visit Chief Complaint xray Chief Complaint Swollen Face, [place]- [phone] Medicare Wellness Reason for Visit Fatigue Hyperlipidemia Lumbar radiculopathy, chronic Medicare annual wellness visit, subsequent SVT (supraventricular tachycardia) Chief Complaint Medicare Wellness Amb Documentation pulled [phone] knee injections Reason for Visit Fatigue Hyperlipidemia Lumbar radiculopathy, chronic Medicare annual wellness visit, subsequent SVT (supraventricular tachycardia) Lumbar radiculopathy, chronic Chief Complaint Medicare Wellness Amb Documentation pulled [phone] knee injections leg swelling - hot cold [...] back pain, unspe cified (M54.50) Referral Organization [facility] Referring Provider First Name [facility] Referring Provider Last Name Blades Referring Provider Specialty Neurologica l Surgery Referred Organization [facility] Referred Provider Albertina Oconnell Referred Address [address] [place], [place],[address] Referred Provider Specialty Pain Medicin e Referral Priority Routine Referral Appointment Date 2023-01-21 General Notes [facility] 023 09:03:40 AM >Received today and waiting for office notes to be locked before sending referral [facility] 01/01/2023 07:37:06 AM >Referral was fax 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 023 10:20:34 AM >Received today and sent P2P [facility] 01/01/2023 12:05:35 PM >Patient was scheduled [facility] 01/15/2023 09:30:10 AM >Office notes not locked yet [facility] 01/16/2023 08:43:03 AM >Sent telephone encounter to referring physician to let them know that the consult letter is ready for their review Reason DECLINED lumbar an d knee pain Diagnosis 1 Lumbar pain (M54.50) Referral Organization [facility] bernardo Referring Provider First Name Toby Referring Provider Last Name Pat Referring Provider Specialty Family [facility] Referred Organization [facility] Referred Provider Paddy De Los Santos Referred Address [address] [place],[address] Referred Provider Specialty Rheumatology Referral Priority Routine [...] section and content) DATE CREATED AUTHOR 09/23/2019 [facility] DATE CREATED AUTHOR AUTHOR'S ORGANIZ ATION 11/04/[address] [facility] DATE CREATED AUTHOR AUTHOR'S ORGANIZ ATION 05/31/2020 [facility] DATE CREATED AUTHOR AUTHOR'S ORGANIZ ATION 12/06/2020 [facility] DATE CREATED AUTHOR AUTHOR'S ORGANIZ ATION 04/21/2021 [facility] DATE CREATED AUTHOR AUTHOR'S ORGANIZ ATION 12/10/2022 [employer] DATE CREATED AUTHOR AUTHOR'S ORGANIZ ATION 01/10/2023 [facility] DATE CREATED AUTHOR AUTHOR'S ORGANIZ ATION 01/17/2023 [facility] DATE CREATED AUTHOR AUTHOR'S ORGANIZ ATION 03/18/2023 [facility] [employer] DATE CREATED AUTHOR AUTHOR'S ORGANIZ ATION 06/09/2023 [facility] DATE CREATED AUTHOR AUTHOR'S ORGANIZ ATION 07/08/2024 [facility] [employer] (unrecognized sec tion and content) Team Status: Inactive Member Role Status Dates Toby Quintana MD Primary Care Provider Active Leeann Quintana Attending Provider Active Team Status: Active Member Role Status Dates Toby Quintana MD Primary Care Provider Active Team Status: Inactive Member Role Status Dates Toby Quintana MD Primary Care Provider Active Samuel Chatman II, MD Attending Provider Active [employer] Helper Relationship Specialty Start Date End Date Toby [...] BE BASED ON THE PRIMARY CLINICAL RECORDS. [facility] [employer] [facility]. provides no warranty or guarantee of the accuracy or completeness of information in this document.
[2024-09-07 16:28] LABS: Color Urine DK YELLOW (YELLOW)
[2024-09-07 16:29] LABS: Urine Microscopic Indicated YES
[2024-09-07 16:32] LABS: INR 1.05; Prothrombin Time 11.1 sec (9.0-11.6)
[2024-09-07 16:39] LABS: Alanine Aminotransferase 145 U/L (14-59); Albumin Globulin Ratio 0.9; Alkaline Phosphatase 207 U/L (46-116); Anion Gap 11.1; Aspartate Amino Transferase 191 U/L (15-37); BUN Creatinine Ratio 13.9; Bilirubin Total 0.7 mg/dL (0.2-1.0); Calcium 9.1 mg/dL (8.5-10.1); Carbon Dioxide 30.1 mmol/L (21.0-32.0); Chloride 105 mmol/L (98-107); Estimated GFR (African America 53 (>=60 mL/min/1.73m^2); Estimated GFR (Non-African Ame 44 (>=60 mL/min/1.73m^2); Globulin 3.5 g/dL; Glucose 107 mg/dL (74-106); Potassium 4.2 mmol/L (3.5-5.1); Sodium 142 mmol/L (136-145); Total Protein 6.5 g/dL (6.4-8.2)
[2024-09-07 16:41] LABS: Bacteria Urine LARGE #/HPF (NONE SEEN); Crystals Seen? None Seen #/HPF (None Seen); Mucus Urine NONE SEEN (NONE SEEN); RBC Urine NONE SEEN #/HPF (0-2); Squamous Epithelial Cell Urine FEW #/LPF (NONE/RARE)
[2024-09-07 16:42] LABS: Troponin I High Sensitivity 4.3 pg/mL (4.0-51.3)
[2024-09-07 16:42] LABS: Cast Seen? NONE SEEN #/LPF (NONE SEEN); Urine Culture Indicated YES
[2024-09-07 16:46] LABS: Thyroid Stimulating Hormone 2.641 uIU/mL (0.358-3.740)
[2024-09-07 17:10] VITALS: PULSE 76; O2SAT 99
[2024-09-07 17:20] VITALS: PULSE 73; O2SAT 100
[2024-09-07 17:29] VITALS: BP 138/87
== END 2024-09-07 19:03 | disposition home or self-care (01) ==
PROVIDERS: Physician Assistant; Emergency Provider Emergency Medicine Emergency Medical Services; PCP Family Medicine
DX: R53.1 Weakness (principal); S40.011A Contusion of right shoulder, initial encounter; N39.0 Urinary tract infection, site not specified; S80.12XA Contusion of left lower leg, initial encounter; W19.XXXA Unspecified fall, initial encounter
CPT/HCPCS: 36415; 70450; 72131; 73030; 73590; 80053; 81001; 84443; 84484; 85025; 85610; 87086; 93005; 99285

== ENCOUNTER 2024-09-09 12:24 | Observation (INO) | payer MEDICARE, SELFPAY ==
[2024-09-09 12:27] VITALS: BP 155/101; PULSE 76; TEMP 37; O2SAT 96; BMI 32.8
--- OUTSIDE RECORDS SUMMARY | 2024-09-09 12:47 | XMS_ITS | CCD ---
Author Organization [facility] Care Team Providers Care Supervisor Dried Yeast Name Role Phone Toby Quintana Unavailable Unavailable Unavailable MD Toby Quintana Primary Care Provider [phone] BladesLeeann Attending Provider Unavailable Unavailable Blades, Leeann [...] Unavailable QUINTANA, DR TOBY Schofield Admitting Unavailable BRUINGTON, DR CAITLYN [employer] Unavailable QUINTANA, DR [...] Sulfamethoxazole; Translations: [sulfa] Drug Allergy Rash, Swelling [address] Work Phone: (10 sources) Sulfonamides (Antibiotic); Translations: [Sulfa (Sulfonamide Antibiotics)] Allergy to substance 04-08-20 19 Hives, Rash, Swelling [facility] (20 sources) Sulfacetamide / Sulfur Drug Allergy rash [employer] [facility] [employer] Other (1 source) Morphine Drug Allergy [facility] (1 source) Quinolones (Antibiotic) Drug allergy (disorder) [facility] (2 sources) Sulfonamides (Antibiotic) Drug allergy (disorder) 08-06-20 13 [facility] (12 sources) Acetaminophen / oxyCODONE Drug Allergy 07-28-20 13 Unknown [employer] Other (12 sources) Meperidine Drug Allergy 07-28-20 13 Unknown [employer] Other (13 sources) Quinolones Drug allergy 07-28-20 13 Comment:Fluorq rennolones [employer] Other (13 sources) sulfADIAZINE Drug Allergy Unknown [employer] Other (13 sources) Substance with sulfonamide structure and antibacterial mechanism of action (substance) Drug allergy 07-28-20 13 Unknown [employer] Other (13 sources) Statins Depletion *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 Propensity to adverse reactions 07-28-20 13 Unknown [employer] Other (4 sources) Allergies Reconciled Propensity to adverse reactions Unknown [employer] Other (4 sources) patient allergy list reviewed by nurse or physicia Propensity to adverse reactions 07-15-20 Comment:Done [employer] Other (1 source) Acetaminophen / oxyCODONE Drug Allergy 07-28-20 13 Unknown [employer] Other (1 source) Meperidine Drug Allergy 07-28-20 13 Unknown [employer] Other (5 sources) Sulfacetamide Drug Allergy 12-30-19 24 [facility] Medications Current Medications Medication Drug Class(es) Dates Sig (Normalized) Sig (Original) acetaminophen 325 mg / HYDROcodone bitartrate 5 mg oral tablet (20 sources) Opioid Agonist Start: 08-31-2021 End: 12-09-2023 take 1 tablet by mouth every four hours as needed HYDROcodone-acetami nophen ([place]) 5-325 mg tablet Take 1 tablet by [...] puffs Inhalation Twice a day Active omega 7-uvu-mbf-fish oil 360 mg-108 mg- 180 mg-1,200 mg capsule (1 source) take 1 capsule by mouth once daily omega 1-dak-akl-fish oil 360 mg-108 mg- 180 mg-1,200 mg [...] Sep, Active take 1 capsule by mo [facility] every six hours as needed oxyCODONE (Oxy-IR) [...] Other intermediate (current) drug therapy; Translations: [OTH STAFF RADIOLOGIST CURRENT DRUG THERAPY] Onset: 07-23-2022 Episodic Other [...] aPTT Coag (PPP) [Time] 23.5 s 22.3-36.2 [facility] Basophils Auto (Bld) [#/Vol] on 01-14-2024 Basophils (Bld) [#/Vol] 0.1 10 3/uL 0.0-0.1 [facility] Basophils/100 WBC Auto (Bld) on 01-14-2024 Basophils/100 WBC (Bld) 0.5 % 0.2-2.0 [facility] Eosinophils/100 WBC Auto (Bl d)on 01-14-2024 Eosinophils/100 WBC (Bld) 1.3 % 0.9-7.0 [facility] Erythrocyte distribution wid th Auto (RBC) [Ratio]on 01-14-2024 Erythrocyte distribution width (RBC) [Ratio] 13.6 % 11.0-15.0 [facility] Estimated glomerular filtrat ion rate (GFR) non- Americanon 01-14-2024 GFR/1.73 sq M.predicted among non-blacks MDRD (S/P/Bld) [Vol rate/Area] mL/min/{1.73_m2} >=60 [facility] Fibrin D-dimer [Presence] in Platelet poor plasma by Latex agglutinationon 01-14-2024 Fibrin D-dimer LA Ql (PPP) 0.78 mg/L FEU <=0.59 [facility] Comment on above: RESULTS CALLED TO [...] on 01-14-2024 Globulin (S) [Mass/Vol] 3.9 g/dL [facility] Hematocrit Auto (Bld) [Volum e fraction]on 01-14-2024 Hematocrit (Bld) [Volume fraction] 44.4 % 36.0-48.0 [facility] Hemoglobin [Mass/volume] in Bloodon 01-14-2024 Hemoglobin (Bld) [Mass/Vol] 14.1 g/dL 12.0-16.0 [facility] INR in Platelet poor plasma by Coagulation assayon 01-14-2024 INR Coag (PPP) [Relative time] {INR} [facility] Comment on above: DESIRED INR:2.0-3.0 CONDITIONS NOT LISTED BELOW2.5-3.5 FOR PROSTHETIC HEART VALVE REPLACEMENT2.5-3.5 RECURRENT THROMBOSIS Laboratory - Chemistry and C hemistry - challengeon 01-14-2024 Albumin [Mass/Vol] 2.9 g/dL 3.4-5.0 [facility] ALP [Catalytic activity/Vol] 126 U/L 46-116 [facility] ALT [Catalytic activity/Vol] 36 U/L 14-59 [facility] AST [Catalytic activity/Vol] 24 U/L 15-37 [facility] Bilirubin [Mass/Vol] 0.4 mg/dL 0.2-1.0 [facility] Calcium [Mass/Vol] 8.7 mg/dL 8.5-10.1 [facility] Chloride [Moles/Vol] 109 mmol/L 98-107 [facility] CO2 [Moles/Vol] 30.5 mmol/L 21.0-32.0 [facility] Creatinine [Mass/Vol] 0.77 mg/dL 0.55-1.02 [facility] GFR/1.73 sq M.predicted MDRD (S/P/Bld) [Vol rate/Area] mL/min/{1.73_m2} >=60 [facility] Glucose [Mass/Vol] 108 mg/dL 74-106 [facility] Natriuretic peptide B (Bld) [Mass/Vol] 210.0 pg/mL <=900.0 [facility] Potassium [Moles/Vol] 4.0 mmol/L 3.5-5.1 [facility] Protein [Mass/Vol] 6.8 g/dL 6.4-8.2 [facility] Sodium [Moles/Vol] 141 mmol/L 136-145 [facility] Urea nitrogen [Mass/Vol] 10.0 mg/dL 7.0-18.0 [facility] Urea nitrogen/Creatinine [Mass ratio] 13.0 mg/mg [facility] Laboratory - Hematology and Cell countson 01-14-2024 Immature granulocytes/100 WBC (Bld) 0.3 % 0.0-0.5 [facility] Laboratory - Microbiology an d Antimicrobial susceptibilityon 01-14-2024 SARS-CoV-2 (COVID-19) RNA DAVID+probe Ql (Unsp spec) Negative NEGATIVE [facility] Comment on above: This test has [...] Auto (Bld) [#/Vol] 9.2 10 3/uL 4.0-11.0 [facility] Lymphocytes Auto (Bld) [#/Vo l]on 01-14-2024 Lymphocytes (Bld) [#/Vol] 1.9 10 3/uL 1.2-3.8 [facility] Lymphocytes/100 WBC Auto (Bl d)on 01-14-2024 Lymphocytes/100 WBC (Bld) 20.3 % 20.5-60.0 [facility] MCH Auto (RBC) [Entitic mass ]on 01-14-2024 MCH (RBC) [Entitic mass] 28.4 pg 26.7-34.0 [facility] MCHC Auto (RBC) [Mass/Vol]on 01-14-2024 MCHC (RBC) [Mass/Vol] 31.8 g/dL 29.9-35.2 [facility] MCV Auto (RBC) [Entitic vol] on 01-14-2024 MCV (RBC) [Entitic vol] 89.5 fL 81.0-99.0 [facility] Monocytes Auto (Bld) [#/Vol] on 01-14-2024 Monocytes (Bld) [#/Vol] 0.8 10 3/uL 0.3-0.8 [facility] Monocytes/100 WBC Auto (Bld) on 01-14-2024 Monocytes/100 WBC (Bld) 8.5 % 1.7-12.0 [facility] Neutrophils Auto (Bld) [#/Vo l]on 01-14-2024 Neutrophils (Bld) [#/Vol] 6.3 10 3/uL 1.4-6.5 [facility] Neutrophils/100 WBC Auto (Bl d)on 01-14-2024 Neutrophils/100 WBC (Bld) 69.1 % 43.0-75.0 [facility] No Panel Informationon 01-13 Troponin I High Sensitivity 6.8 pg/mL 4.0-51.3 [facility] Comment on above: CUT-OFF POINTS HAVE [...] INFORMATION. Bedside Influenza Type A Antigen Negative [facility] Comment on above: Negative for Flu A p rotein antigen. Infection due to Flu Acannot be ruled out. Flu A antigen in the sample may bebelow the detection limit of the test. Bedside Influenza Type B Antigen Negative [facility] Comment on above: Negative for Flu B p rotein antigen. Infection due to Flu Bcannot be ruled out. Flu B antigen in the sample may bebelow the detection limit of the test. Eosinophils # (Auto) 0.1 10 3/uL 0.0-0.7 [facility] Immature Granulocyte # (Auto) 0.03 10 3/uL 0.00-0.03 [facility] Platelet mean volume Auto (B ld) [Entitic vol]on 01-14-2024 Platelet mean volume (Bld) [Entitic vol] 9.4 fL 9.5-13.5 [facility] Platelets Auto (Bld) [#/Vol] on 01-14-2024 Platelets (Bld) [#/Vol] 238 10 3/uL 150-450 [facility] Prothrombin time (PT)on PT Coag (PPP) [Time] 9.3 s 9.0-11.6 [facility] RBC Auto (Bld) [#/Vol]on RBC (Bld) [#/Vol] 4.96 10 6/uL 4.20-5.40 [facility] Serum or plasma albumin/glob ulin mass ratioon 01-14-2024 Albumin/Globulin [Mass ratio] 0.7 {ratio} [facility] Serum or plasma anion gap de terminationon 01-14-2024 Anion gap [Moles/Vol] 5.5 mmol/L [facility] Basophils Auto (Bld) [#/Vol] on 12-30-2023 Basophils (Bld) [#/Vol] 0.1 10 3/uL 0.0-0.1 [facility] Basophils/100 WBC Auto (Bld) on 12-30-2023 Basophils/100 WBC (Bld) 0.6 % 0.2-2.0 [facility] Cholesterol in LDL Calc [Mas s/Vol]on 12-30-2023 Cholesterol in LDL [Mass/Vol] 149.0 mg/dL [facility] Comment on above: <100 mg/dl [id number] 0-129 mg/dl NEAR OR ABOVE [id number] mg/dl BORDERLINE [id number] mg/dl HIGH>190 mg/dl VERY HIGH Cholesterol in VLDL Calc [Ma ss/Vol]on 12-30-2023 Cholesterol in VLDL [Mass/Vol] 18.6 mg/dL [facility] Eosinophils/100 WBC Auto (Bl d)on 12-30-2023 Eosinophils/100 WBC (Bld) 1.8 % 0.9-7.0 [facility] Erythrocyte distribution wid th Auto (RBC) [Ratio]on 12-30-2023 Erythrocyte distribution width (RBC) [Ratio] 13.2 % 11.0-15.0 [facility] Estimated glomerular filtrat ion rate (GFR) non- Americanon 12-30-2023 GFR/1.73 sq M.predicted among non-blacks MDRD (S/P/Bld) [Vol rate/Area] mL/min/{1.73_m2} >=60 [facility] Globulin Calc (S) [Mass/Vol] on 12-30-2023 Globulin (S) [Mass/Vol] 3.8 g/dL [facility] Hematocrit Auto (Bld) [Volum e fraction]on 12-30-2023 Hematocrit (Bld) [Volume fraction] 46.8 % 36.0-48.0 [facility] Hemoglobin [Mass/volume] in Bloodon 12-30-2023 Hemoglobin (Bld) [Mass/Vol] 14.7 g/dL 12.0-16.0 [facility] Laboratory - Chemistry and C hemistry - challengeon 12-30-2023 Albumin [Mass/Vol] 3.0 g/dL 3.4-5.0 [facility] ALP [Catalytic activity/Vol] 88 U/L 46-116 [facility] ALT [Catalytic activity/Vol] 23 U/L 14-59 [facility] AST [Catalytic activity/Vol] 20 U/L 15-37 [facility] Bilirubin [Mass/Vol] 0.5 mg/dL 0.2-1.0 [facility] Calcium [Mass/Vol] 9.2 mg/dL 8.5-10.1 [facility] Chloride [Moles/Vol] 107 mmol/L 98-107 [facility] Cholesterol [Mass/Vol] 224 mg/dL <=200 [facility] Cholesterol in HDL [Mass/Vol] 57 mg/dL 40-60 [facility] Comment on above: > or =60 mg/dl - LOW CARDIOVASCULAR RISK<40 mg/dl - HIGH CARDIOVASCULAR RISK CO2 [Moles/Vol] 31.1 mmol/L 21.0-32.0 [facility] Creatinine [Mass/Vol] 0.72 mg/dL 0.55-1.02 [facility] GFR/1.73 sq M.predicted MDRD (S/P/Bld) [Vol rate/Area] mL/min/{1.73_m2} >=60 [facility] Glucose [Mass/Vol] 100 mg/dL 74-106 [facility] Potassium [Moles/Vol] 4.5 mmol/L 3.5-5.1 [facility] Protein [Mass/Vol] 6.8 g/dL 6.4-8.2 [facility] Sodium [Moles/Vol] 145 mmol/L 136-145 [facility] Triglyceride [Mass/Vol] 93 mg/dL <=150 [facility] TSH Qn 2.655 m[IU]/L 0.358-3.740 [facility] Urea nitrogen [Mass/Vol] 9.0 mg/dL 7.0-18.0 [facility] Urea nitrogen/Creatinine [Mass ratio] 12.5 mg/mg [facility] Laboratory - Hematology and Cell countson 12-30-2023 Immature granulocytes/100 WBC (Bld) 0.2 % 0.0-0.5 [facility] Leukocytes [#/volume] correc wanda for nucleated erythrocytes in Blood by Automated counon 12-30-2023 WBC corrected for nucl RBC Auto (Bld) [#/Vol] 8.7 10 3/uL 4.0-11.0 [facility] Lymphocytes Auto (Bld) [#/Vo l]on 12-30-2023 Lymphocytes (Bld) [#/Vol] 1.8 10 3/uL 1.2-3.8 [facility] Lymphocytes/100 WBC Auto (Bl d)on 12-30-2023 Lymphocytes/100 WBC (Bld) 20.4 % 20.5-60.0 [facility] MCH Auto (RBC) [Entitic mass ]on 12-30-2023 MCH (RBC) [Entitic mass] 28.6 pg 26.7-34.0 [facility] MCHC Auto (RBC) [Mass/Vol]on 12-30-2023 MCHC (RBC) [Mass/Vol] 31.4 g/dL 29.9-35.2 [facility] MCV Auto (RBC) [Entitic vol] on 12-30-2023 MCV (RBC) [Entitic vol] 91.1 fL 81.0-99.0 [facility] Monocytes Auto (Bld) [#/Vol] on 12-30-2023 Monocytes (Bld) [#/Vol] 0.7 10 3/uL 0.3-0.8 [facility] Monocytes/100 WBC Auto (Bld) on 12-30-2023 Monocytes/100 WBC (Bld) 7.5 % 1.7-12.0 [facility] Neutrophils Auto (Bld) [#/Vo l]on 12-30-2023 Neutrophils (Bld) [#/Vol] 6.0 10 3/uL 1.4-6.5 [facility] Neutrophils/100 WBC Auto (Bl d)on 12-30-2023 Neutrophils/100 WBC (Bld) 69.5 % 43.0-75.0 [facility] No Panel Informationon 12-30 Eosinophils # (Auto) 0.2 10 3/uL 0.0-0.7 [facility] Immature Granulocyte # (Auto) 0.02 10 3/uL 0.00-0.03 [facility] Platelet mean volume Auto (B ld) [Entitic vol]on 12-30-2023 Platelet mean volume (Bld) [Entitic vol] 9.3 fL 9.5-13.5 [facility] Platelets Auto (Bld) [#/Vol] on 12-30-2023 Platelets (Bld) [#/Vol] 199 10 3/uL 150-450 [facility] RBC Auto (Bld) [#/Vol]on RBC (Bld) [#/Vol] 5.14 10 6/uL 4.20-5.40 [facility] Serum or plasma albumin/glob ulin mass ratioon 12-30-2023 Albumin/Globulin [Mass ratio] 0.8 {ratio} [facility] Serum or plasma anion gap de terminationon 12-30-2023 Anion gap [Moles/Vol] 11.4 mmol/L [facility] Serum or plasma total choles terol/high density lipoprotein (HDL) cholesterol mass la 12-30-2023 Cholesterol.total/Ch olesterol in HDL [Mass ratio] 3.9 {ratio} [facility] Comment on above: 3.3 - 4.4 LOW RISK4. 4 - 7.1 AVERAGE RISK7.1 - 11.0 MODERATE RISK>11.0 HIGH RISK XR hip LT min 2V(w/wo pelvis )*on 01-08-2023 XR hip LT min 2V(w/wo pelvis)* [facility] Main [address] [address] XRay Report Signed Patient: Adriana Dinero I MR#: [id number] [id number] : 1955 Acct:[id number] Age/Sex: 67 / F ADM Date: 01/08/23 [...] Pop Jr., D.O.01/08/2023 1:22 PM Dictation Location: [place] [address] Transcribed By: [facility] 01/08/23 1322 Dictated By: Montana Pop Jr, DO 01/08/23 1321 Signed By: 01/08/23 1322 Normal [facility] XR hip LT min 2V(w/wo pelvis)* [facility] [employer] Other XR hip LT min 2V(w/wo pelvis)* [facility] Main [facility] [employer] Other XR hip LT min 2V(w/wo pelvis)* [address] [place] [address] [employer] Other XR hip LT min 2V(w/wo pelvis)* [place] [address] [employer] Other XR hip LT min 2V(w/wo pelvis)* XRay Report [employer] Other XR hip LT min 2V(w/wo pelvis)* Signed [employer] Other XR hip LT min 2V(w/wo pelvis)* Patient: Adriana Dinero I MR#: [id number] [facility] [employer] Other XR hip LT min 2V(w/wo pelvis)* 056 [employer] Other XR hip LT min 2V(w/wo pelvis)* : 1955 Acct:[id number] [employer] Other XR hip LT min 2V(w/wo pelvis)* Age/Sex: 67 / F ADM Date: 01/08/23 [employer] Other XR hip LT min 2V(w/wo pelvis)* Loc: [facility] Room: Type: [facility] [employer] Other XR hip LT min 2V(w/wo pelvis)* Attending Dr: Samuel Chatman II, MD [employer] Other XR hip LT min 2V(w/wo pelvis)* Copies to: Samuel Chatman MD [employer] Other XR hip LT min 2V(w/wo pelvis)* Ordering Provider: Samuel Chatman MD [employer] Other XR hip LT min 2V(w/wo pelvis)* Date of Service: 01/08/23 [employer] Other XR hip LT min 2V(w/wo pelvis)* XR/XR hip LT min 2V(w/wo pelvis)*: Left hip pain [employer] Other XR hip LT min 2V(w/wo pelvis)* LEFT HIP - 2 views: [employer] Other XR hip LT min 2V(w/wo pelvis)* CLINICAL HISTORY: Left hip pain for months. [employer] Other XR hip LT min 2V(w/wo pelvis)* COMPARISON: Hip series 11/22/2022 [employer] Other XR hip LT min 2V(w/wo pelvis)* FINDINGS: Mild degenerative changes of both hips without acute bony process. [employer] Other XR hip LT min 2V(w/wo pelvis)* XR/XR hip LT min 2V(w/wo pelvis)* [employer] Other XR hip LT min 2V(w/wo pelvis)* IMPRESSION: [employer] Other XR hip LT min 2V(w/wo pelvis)* MILD DEGENERATIVE CHANGES OF BOTH HIPS WITHOUT ACUTE BONY PROCESS.. [employer] Other XR hip LT min 2V(w/wo pelvis)* Impression dictated by: Montana Pop Jr., D.OOdessa01/08/2023 1:22 PM [employer] Other XR hip LT min 2V(w/wo pelvis)* Dictation Location: [place] [address] [employer] Other XR hip LT min 2V(w/wo pelvis)* Transcribed By: VALERIE 01/08/23 [facility] [employer] Other XR hip LT min 2V(w/wo pelvis)* Dictated By: Montana Pop Jr, DO 01/08/23 [facility] [employer] Other XR hip LT min 2V(w/wo pelvis)* Signed By: [employer] Other XR hip LT min 2V(w/wo pelvis)* 01/08/23 [facility] [employer] Other Office Visit (Cardiology)on 12-09-2022 Follow-up visit [...] Former smoker Tobacco Use Screening; Status:Complete; Done: [id number] Patient Instructions Please bring all medicines, vitamins, [...] and provided the patient with [address] [facility]. ASSESSMENT AND PLAN: 1. Supraventricular tachycardia, [...] follow-up will be scheduled Iban Lu MD, [facility] Surgical History Problems History of Back surgery [...] Recorded: 09Dec2022 01:25PM Heart Rate78, L Radial Ildfefwu938, LUE, Sitting Bjkqdfcxp68, LUE, Sitting Height5 ft 6 in Lyjisn629 lb BMI Tiruxtlocu70.03 kg/m2 BSA Calculated2.19 Tobacco Useb) No PHQ-2 [...] Dec 09 2022 2:09PM EST (Author) Normal [facility] Tobacco Screening.on 023 Fall risk assessment b) One or more fall s in the last year -[facility]licja 250 DO Work Phone: Tobacco use status [facility] b) No [facility] 250 DO Work Phone: Tobacco Screening. Yes MP-[facility] 250 DO Work Phone: XR hip BI w [id number] 11-22-19 XR hip BI w [id number] [facility] Main [address] [address] XRay Report Signed Patient: Adriana Dinero I MR#: [id number] 056 : 1955 Acct:[id number] Age/Sex: 67 / F ADM Date: 11/22/22 [...] Pop Jr., D.O.11/22/2022 1:12 PM Dictation Location: [place] [address] Transcribed By: [facility] 11/22/22 1312 Dictated By: Montana Pop Jr, DO 11/22/22 1311 Signed By: 11/22/22 1312 Normal [facility] XR lumbar spine AP/LAT/FLX/E XTon 11-22-2022 XR lumbar spine AP/LAT/FLX/EXT [address] [address] XRay Report Signed Patient: Adriana Dinero I MR#: [id number] 056 : 1955 Acct:[id number] Age/Sex: 67 / F ADM Date: 11/22/22 [...] Pop Jr., D.O.11/22/2022 1:11 PM Dictation Location: [place] [address] Transcribed By: [facility] 11/22/22 1311 Dictated By: Montana Pop Jr, DO 11/22/22 1309 Signed By: 11/22/22 1311 Normal [facility] CREATININEon 10-04-2022 Creatinine [Mass/Vol] 0.75 mg/dL Normal 0.55-1.02 [facility] Comment on above: Performed By: #### C CARLOS #### [facility] [address] [place] [address] [address] Henrietta Zavala EGFR-AF SAMMARINESE >60 Normal >=[address] [facility] Comment on above: Performed By: #### C CARLOS #### [facility] [address] [place] [address] [address] Henrietta Zavala EGFR-NON AF SAMMARINESE >60 Normal >=60 [facility] Comment on above: Performed By: #### C CARLOS #### [facility] [address] [place] [address] Dr. Henrietta Zavala MRI LSPINE WO W [...] SHALA OMER Date: 2022-10-04 11:19 Normal [facility] Covid-19 PCR (CVDTB)on 07-11 SARS-CoV-2 (COVID-19) RNA DAVID+probe Ql (Unsp spec) Not detected Normal NOT DETECTED [facility] Comment on above: Result Comment: This test is not yet approved or cleared by the [place] FDA. When there are no FDA-approved or cleared tests available, and other criteria are met, FDA can make tests available under an emergency access mechanism called an Emergency Use Authorization (EUA). The EUA for this test is supported by the [place] of Health and Human Service's (HHS's) declaration [...] consistent with SARS-CoV-2. Performed By: #### C VDNEW [facility] #### [facility] [address] [place] [address] Dr. Henrietta Zavala XR HIPS JI 3_4V [...] CAITLYN CABRERA Date: 2022-04-15 07:00 Normal [facility] XR TSPINE 3 VIEWSon 04-15-20 22 [...] CAITLYN CABRERA Date: 2022-04-15 07:03 Normal [facility] CBC AUTO DIFFon 04-12-2022 BASO # 0.1 103/ul Normal 0.0-0.1 [facility] Comment on above: Performed By: #### C BC #### [facility] [address] [place] [address] Dr. Henrietta Zavala Basophils/100 WBC (Bld) 0.4 % Normal 0.2-2.0 [facility] Comment on above: Performed By: #### C BC #### [facility] [address] [place] [address] Dr. Henrietta Zavala EO # 0.1 103/ul Normal 0.0-0.7 [facility] Comment on above: Performed By: #### C BC #### [facility] [address] [place] [address] Dr. Henrietta Zavala Eosinophils/100 WBC (Bld) 0.4 % Critically low 0.9-7.0 [facility] Comment on above: Performed By: #### C BC #### [facility] [address] [place] [address] Dr. Henrietta Zavala Erythrocyte distribution width (RBC) [Ratio] 14.1 % Normal 11.0-15.0 [facility] Comment on above: Performed By: #### C BC #### [facility] [address] [place] [address] Dr. Henrietta Zavala Hematocrit (Bld) [Volume fraction] 44.9 % Normal 36.0-48.0 [facility] Comment on above: Performed By: #### C BC #### [facility] [address] [place] [address] Dr. Henrietta Zavala Hemoglobin (Bld) [Mass/Vol] 14.2 g/dL Normal 12.0-16.0 [facility] Comment on above: Performed By: #### C BC #### [facility] [address] [place] [address] Dr. Henrietta Zavala IG # 0.06 10e3/ul Critically high 0.00-0.03 [facility] Comment on above: Performed By: #### C BC #### [facility] [address] [place] [address] Dr. Henrietta Zavala IG % 0.5 % Normal 0.0-0.5 [facility] Comment on above: Performed By: #### C BC #### [facility] [address] [place] [address] [address] Henrietta Zavala LYMPH # 2.2 103/ul Normal 1.2-3.8 [facility] Comment on above: Performed By: #### C BC #### [facility] [address] [place] [address] [address] Henrietta Zavala Lymphocytes/100 WBC (Bld) 19.4 % Critically low 20.5-60.0 [facility] Comment on above: Performed By: #### C BC #### [facility] [address] [place] [address] [address] Henrietta Zavala MANUAL DIFF REQ NO Normal [facility] Comment on above: Performed By: #### C BC #### [facility] [address] [place] [address] Dr. Henrietta Zavala MCH (RBC) [Entitic mass] 27.5 pg Normal 26.7-34.0 [facility] Comment on above: Performed By: #### C BC #### [facility] [address] [place] [address] Dr. Henrietta Zavala MCHC (RBC) [Mass/Vol] 31.6 g/dL Normal 29.9-35.2 [facility] Comment on above: Performed By: #### C BC #### [facility] [address] [place] [address] Dr. Henrietta Zavala MCV (RBC) [Entitic vol] 86.8 fL Normal 81.0-99.0 [facility] Comment on above: Performed By: #### C BC #### [facility] [address] [place] [address] Dr. Henrietta Zavala MONO # 0.9 103/ul Critically high 0.3-0.8 [facility] Comment on above: Performed By: #### C BC #### [facility] [address] [place] [address] Dr. Henrietta Zavala Monocytes/100 WBC (Bld) 7.9 % Normal 1.7-12.0 [facility] Comment on above: Performed By: #### C BC #### [facility] [id number] Henrietta Zavala NEUT # 8.1 103/ul Critically high 1.4-6.5 [facility] Comment on above: Performed By: #### C BC #### [facility] [id number] Henrietta Zavala Neutrophils/100 WBC (Bld) 71.4 % Normal 43.0-75.0 [facility] [facility] Comment on above: Performed By: #### C BC #### [facility] [address] [address] [address] Henrietta Zavala Platelet mean volume (Bld) [Entitic vol] 9.7 fL Normal 9.5-13.5 [facility] Comment on above: Performed By: #### C BC #### [facility] [address] [address] [address] Henrietta Zavala PLT 284 103/ul Normal 150-450 [facility] Comment on above: Performed By: #### C BC #### [facility] [address] [address] [address] Henrietta Zavala RBC 5.17 106/ul Normal 4.20-5.40 [facility] Comment on above: Performed By: #### C BC #### [facility] [address] [address] [address] Henrietta Zavala WBC 11.3 103/ul Critically high 4.0-11.[address] [facility] Comment on above: Performed By: #### C BC #### [facility] [address] [address] [address] Henrietta Zavala LIPID PROFILEon 04-12-2022 CHOL-HDL RATIO NORM SEE BELOW Normal [facility] Comment on above: Result Comment: 3.3 - 4.4 LOW RISK 4.4 - 7.1 AVERAGE RISK 7.1 - 11.0 MODERATE RISK >11.0 HIGH RISK Performed By: #### C MP, LIPID #### [facility] [address] [address] [address] Henrietta Zavala Cholesterol [Mass/Vol] 235 mg/dL Critically high <=200 [facility] Comment on above: Performed By: #### C MP, LIPID #### [facility] [address] [address] [address] Henrietta Zavala Cholesterol in HDL [Mass/Vol] 47 mg/dL Normal 40-60 [facility] Comment on above: Performed By: #### C MP, LIPID #### [facility] [address] [address] [address] Henrietta Zavala Cholesterol in LDL [Mass/Vol] 160.8 mg/dL Normal [facility] Comment on above: Performed By: #### C MP, LIPID #### [facility] [address] [address] [address] Henrietta Zavala Cholesterol.total/Ch olesterol in HDL [Mass ratio] 5.0 {ratio} Normal [facility] Comment on above: Performed By: #### C MP, LIPID #### [facility] [address] [place] [address] Dr. Henrietta Zavala HDL NORMAL > or = 60 mg/dl - LO W CARDIOVASCULAR RISK <40 mg/dl - HIGH CARDIOVASCULAR RISK Normal [facility] Comment on above: Performed By: #### C MP, LIPID #### [facility] [address] [place] [address] Dr. Henrietta Zavala LDL CALC NORMAL SEE BELOW Normal [facility] Comment on above: Result Comment: <100 mg/dl OPTIMAL 100 - 129 mg/dl NEAR OR ABOVE OPTIMAL 130 - 159 mg/dl BORDERLINE HIGH 160 - 189 mg/dl HIGH >190 mg/dl VERY HIGH Performed By: #### C MP, LIPID #### [facility] [address] [place] [address] Dr. Henrietta Zavala Triglyceride [Mass/Vol] 136 mg/dL Normal <=150 [facility] Comment on above: Performed By: #### C MP, LIPID #### [facility] [address] [place] [address] Dr. Henrietta Zavala VLDL CALC 27.2 mg/dL Normal [facility] Comment on above: Performed By: #### C MP, LIPID #### [facility] [address] [place] [address] Dr. Henrietta Zavala PROF 14(COMP METB)on 022 Albumin [Mass/Vol] 3.2 g/dL Critically low 3.4-5.0 [facility] [place] Comment on above: Performed By: #### C MP, LIPID #### [facility] [address] [address] [address] Henrietta Zavala Albumin/Globulin [Mass ratio] 0.8 {ratio} Normal [facility] Comment on above: Performed By: #### C MP, LIPID #### [facility] [address] [address] [address] Henrietta Zavala ALP [Catalytic activity/Vol] 127 U/L Critically high 46-116 [facility] Comment on above: Performed By: #### C MP, LIPID #### [facility] [address] [place] [address] Dr. Henrietta Zavala ALT [Catalytic activity/Vol] 55 U/L Normal 14-59 [facility] Comment on above: Performed By: #### C MP, LIPID #### [facility] [address] [address] [address] Henrietta Zavala Anion gap [Moles/Vol] 13.6 mmol/L Normal [facility] Comment on above: Performed By: #### C MP, LIPID #### [facility] [address] [place] [address] Dr. Henrietta Zavala AST [Catalytic activity/Vol] 24 U/L Normal 15-37 [facility] Comment on above: Performed By: #### C MP, LIPID #### [facility] [address] [address] [address] Henrietta Zavala Bilirubin [Mass/Vol] 0.3 mg/dL Normal 0.2-1.0 [facility] Comment on above: Performed By: #### C MP, LIPID #### [facility] [address] [address] [address] Henrietta Zavala Calcium [Mass/Vol] 8.8 mg/dL Normal 8.5-10.1 [facility] Comment on above: Performed By: #### C MP, LIPID #### [facility] [address] [address] [address] Henrietta Zavala Chloride [Moles/Vol] 107 mmol/L Normal 98-107 [facility] Comment on above: Performed By: #### C MP, LIPID #### [facility] [address] [place] [address] Dr. Henrietta Zavala CO2 [Moles/Vol] 25.6 mmol/L Normal 21.0-32.[address] [facility] Comment on above: Performed By: #### C MP, LIPID #### [facility] [address] [place] [address] Dr. Henrietta Zavala Creatinine [Mass/Vol] 0.77 mg/dL Normal 0.55-1.02 [facility] Comment on above: Performed By: #### C MP, LIPID #### [facility] [address] [place] [address] Dr. Henrietta Zavala EGFR-AF SAMMARINESE >60 Normal >=[address] [facility] Comment on above: Performed By: #### C MP, LIPID #### [facility] [address] [place] [address] Dr. Henrietta Zavala EGFR-NON AF SAMMARINESE >60 Normal >=60 [facility] Comment on above: Performed By: #### C MP, LIPID #### [facility] [address] [place] [address] Dr. Henrietta Zavala Globulin (S) [Mass/Vol] 3.8 g/dL Normal [facility] Comment on above: Performed By: #### C MP, LIPID #### [facility] [address] [address] [address] Henrietta Zavala Glucose [Mass/Vol] 90 mg/dL Normal 74-106 [facility] Comment on above: Performed By: #### C MP, LIPID #### [facility] [address] [place] [address] Dr. Henrietta Zavala Potassium [Moles/Vol] 4.2 mmol/L Normal 3.5-5.1 [facility] Comment on above: Performed By: #### C MP, LIPID #### [facility] [address] [place] [address] Dr. Henrietta Zavala Protein [Mass/Vol] 7.0 g/dL Normal 6.4-8.2 [facility] Comment on above: Performed By: #### C MP, LIPID #### [facility] [address] [address] [address] Henrietta Zavala Sodium [Moles/Vol] 142 mmol/L Normal 136-145 [facility] Comment on above: Performed By: #### C MP, LIPID #### [facility] [address] [address] [address] Henrietta Zavala Urea nitrogen [Mass/Vol] 13.0 mg/dL Normal 7.0-18.0 [facility] Comment on above: Performed By: #### C MP, LIPID #### [facility] [address] [address] [address] Henrietta Zavala Urea nitrogen/Creatinine [Mass ratio] 16.9 mg/mg Normal [facility] Comment on above: Performed By: #### C MP, LIPID #### [facility] [address] [place] [address] Dr. Henrietta Zavala Tobacco Screening.on 021 Fall risk assessment a) No falls within the last year [facility] [address] DO Work Phone: Tobacco use status [facility]PH[facility] b) No [facility] 250 DO Work Phone: KNEE LEFT 3 [facility] 03-30-2021 KNEE LEFT 3 S [facility] Department of Radiology [address] [place] [phone] ======== Patient Name: ADRIANA RAYGOZA : 1955 Sex: F Age: Race: White Pt. Location: Patient Status: Ordered Date: 03/30/2021 9:00:00 AM Completed Date: 03/30/2021 09:07 AM Requesting Provider: RAMANDEEP PATEL Attending Provider: Report Copy To: Signs & Symptoms: M25.562 Pain in left knee I10 History: Deb Comments: , , , Ordering Provider - RAMANDEEP PATEL MD , Exam: KNEE LEFT 3 [facility] ======== KNEE LEFT 3 S 03/30/2021 [...] findings. Electronically signed: Jesse Lazaro. Transcribed by: [email or web address], User Resident: Electronically Signed by: JESSE LAZARO @ 03/30/2021 11:00 AM Normal [facility] Comment on above: Order Comment: , , = ========= , Ordering Provider - RAMANDEEP PATEL MD , KNEE RIGHT 3 Son KNEE RIGHT 3 S [facility] Department of Radiology [address] [place] [phone] ======== Patient Name: ADRIANA RAYGOZA : 1955 Sex: F Age: Race: White Pt. Location: 84 Patient Status: O Ordered Date: 03/30/2021 9:05:00 AM Completed Date: 03/30/2021 09:07 AM Requesting Provider: RAMANDEEP PATEL Attending Provider: RAMANDEEP APTEL Report Copy To: Signs & Symptoms: M25.569 Pain in unspecified knee I10 History: [place] Comments: Evaluate Exam: KNEE RIGHT 3 VWS [...] reports Electronically signed: Jesse Lazaro. Transcribed by: [email or web address], User Resident: SHALA EATON Electronically Signed by: JESSE LAZARO @ 03/30/2021 03:52 PM I personally read this/these film(s) with this resident Normal [facility] Comment on above: Order Comment: Evalu ate MRI LUMBAR SP W & WO CONTRAS Ton 10-11-2020 MRI LUMBAR SP W & WO CONTRAST STUDY: MRI LUMBAR SP W WO CONTRAST; 10/11/2020 11:35 am INDICATION: POST LAMINECTOMY SYNDROME. COMPARISON: None. ACCESSION NUMBER(S): [id number] ORDERING CLINICIAN: Denis Donohue TECHNIQUE: The lumbar [...] osteomyelitis. * THIS EXAMINATION WAS INTERPRETED AT [facility] Normal [facility] LUMB SP COMP W FLEX/EXT 6 VW Son 09-12-2020 LUMB SP COMP W FLEX/EXT 6 VWS STUDY: LUMB SP COMP W FLEX/EXT 6 VWS ; ; 09/12/2020 8:45 am INDICATION: PAIN. COMPARISON: None. ACCESSION NUMBER(S): [id number] ORDERING CLINICIAN: Denis Donohue FINDINGS: Status post [...] neural foraminal stenosis at L5-S1 level. Normal [facility] Ambulatory Clinical Summaryo n 05-22-2020 Ambulatory Clinical Summary {[id number] }CD:[id number] Normal [facility] Coding Summary.on 05-10-2020 Coding Summary. CODING DATE: 05/10/2020 FINAL [facility] STATUS: Home (Routine DC) PAYOR: [...] Date Saved: 05/10/2020 04:39 pm [facility] Coding Summary.on 05-08-2020 Coding Summary. CODING DATE: 05/08/2020 [facility] STATUS: Home (Routine DC) PAYOR: Commercial [...] Date Saved: 05/08/2020 12:00 pm [facility] IntraOperative Documentson 0 05-08-2020 IntraOperative Documents [id number]#1. 00CD:127 [facility] Postoperative Documentson Postoperative Documents [id number]#1.0 0CD:127 [facility] Coding Summary.on 05-04-2020 Coding Summary. CODING DATE: 05/04/2020 [facility] STATUS: Home (Routine DC) PAYOR: [employer] APC DESCRIPTION 5301 Level 1 Upper GI Procedures ADMIT DX: REASON FOR VISIT DX: R10.13 Epigastric pain FINAL DX: PRINCIPAL: K29.50 Unspecified chronic gastritis without bleeding SECONDARY: K25.9 Gastric ulcer, unspecified as acute or chronic, without hemorrhage or perforation R11.2 Nausea with vomiting, unspecified PYMT PROC APC STAT DESCRIPTION DOCTOR NAME DATE 10416 5301 Reid CLINE MD 05/01/2020 phagogastroduodenoscop y, flexible, transoral; with biopsy, single or multiple 20415 Anesthesia for upper Elliot Tena Jr, DO [...] Revised Date Saved: 05/04/2020 03:45 pm Normal [facility] Progress Note-Physicianon Progress Note-Physician Patient: ADRIANA [...] Cardiovascular: Regular rhythm. Neurologic: Alert, Oriented. Plan [employer] Anesthesiologists (ASA) physical status classification: Class II. Anesthetic Preoperative Plan Anesthesia: General. . Anesthetic plan, risks, benefits, and alternatives discussed with the patient and/or family. Communication: face to face with (patient 5 minutes, Patient educated on smoking cesstation). Normal [facility] Comment on above: Result Comment: Elec tronically Signed By: Elliot Tena Jr, DO\.br\Date and Time Signed: 05/03/20 09:34 EDT Main OR Intraoperative Recor don 05-02-2020 Main OR Intraoperative Record IntraOp Document Type FT Summary Primary Physician: Reid NIEVES MD Finalized Date/Time: 05/02/20 13:35:19 Pt. Name: ADRIANA DINERO Shoshana VeraB./Sex: 1955 Female Med Rec #: [id number] Physician: Reid NIEVES MD Financial #: [id number] Pt. Type: O Room/Bed: / Admit/Disch: 05/01/20 07:03:44 - 05/01/20 23:59:59 Institution: Case Times FT Entry 1 Patient Times In Room 05/01/20 08:17:00 Out Room 05/01/20 08:25:00 Procedure Times Start 05/01/20 08:21:00 Stop 05/01/20 08:23:00 Anesthesia Times Start 05/01/20 08:17:00 Stop 05/01/20 08:25:00 Last Modified By: Savannah Chavis RN 05/01/20 08:26:21 General Comments: 05/02/2020 Chart opened to review and send charges Juvencio Andrés CLINICAL TRAINING SPECIALIST Case Attendance FT Entry 1 Entry 2 Entry 3 Case Attendee Elliot Tena Jr, DO, RN, Fior Simms Role Performed Anesthesiologist of Official Court Interpreter - Primary Scrub - Primary Record Time [...] RN Patient Status Stable Skin. Condition Intact, [place], Warm, and Dry Airway Maintenance Oxygen in Use? No Outcomes Met? Yes Last Modified By: Savannah Chavis RN 05/01/20 06:57:50 Post-Care Text: The patient is free from signs and symptoms of injury related to transfer/transport General Comments: Report given to batchmaker. RHRN Medication Administration FT Pre-Care Text: Verifies [...] 08:26 Altagracia Bowen CST 05/02/20 13:35 Normal [facility] Consenton 05-01-2020 Consent [id number]#1.0 0CD:127 Normal [facility] Consent for Treatmenton 04-11 Consent for Treatment [id number]#1.0 0CD:127 Normal [facility] Discharge Instructionson Discharge Instructions [id number] 0CD:127 [facility] History and Physicalon 05-01 History and Physical [id number]#1.0 0CD:127 Normal [facility] Inpatient Patient Summaryon 05-01-2020 Inpatient Patient Summary [address] [address] [facility] Clinical Discharge Instructions PERSON INFORMATION Name: ADRIANA DINERO [facility]#:[id number] PHYSICIANS Admitting Physician: Reid NIEVES MD Attending Physician: Reid NIEVES MD PCP: TOBY QUINTANA MD Discharge Diagnosis: Antral ulcer Comment: PATIENT EDUCATION INFORMATION Instructions: Medication Leaflets: Follow up: With: Address: When: [facility] [address] [place] [address] Within 2 weeks Type Location Start [facility] Follow Up [facility] 05/22/2020 2:15 PM 05/22/2020 2:30 PM Confirmed MEDICATION LIST Medications to Continue Taking That Have Changed [facility] [facility], [address], [place] [id number], [phone] START: omeprazole (omeprazole 40 mg Cap-DR) 1 [...] Mouth every 8 hours. Refills: 1. Comment: [facility] IntraOperative Documentson 0 05-01-2020 IntraOperative Documents [id number]#1.0 0CD:127 [facility] IntraOperative Documents [id number] 0CD:127 [facility] Main OR PACU I Recordon 04-11 Main OR PACU I Record PACU Phase I Document Type FT Summary Primary Physician: Reid NIEVES MD Finalized Date/Time: 05/01/20 09:14:39 Pt. Name: ADRIANA DINERO Shoshana Jerome/Sex: 1955 Female Med Rec #: [id number] Physician: Reid NIEVES MD Financial #: [id number] Pt. Type: O Room/Bed: / Admit/Disch: 05/01/20 [...] Ami Donaldson RN 05/01/20 09:14 [facility] Main OR Preoperative Recordo n 05-01-2020 Main OR Preoperative Record Holding Area Document Type FT Summary Primary Physician: Reid NIEVES MD Finalized Date/Time: 05/01/20 07:37:17 Pt. Name: ADRIANA DINERO/Sex: 1955 Female Med Rec #: [id number] Physician: Reid NIEVES MD Financial #: [id number] Pt. Type: O Room/Bed: / Admit/Disch: 05/01/20 [...] By: Lizbeth Diamond RN 05/01/20 07:37 Normal [facility] Monitor Recordon 05-01-2020 Monitor Record [id number]. 00CD:127 Normal [facility] Patient Education - Texton 0 05-01-2020 Patient Education - Text Normal [facility] Ambulatory Clinical Summaryo n 04-24-2020 Ambulatory Clinical Summary {[id number]}CD:[id number] Normal [facility] Auto Diffon 04-24-2020 Basophils/100 WBC (Bld) 0.5 % Normal 0.0-2.0 [facility] Comment on above: Order Comment: Order Added by Discern Expert. Performed By: #### 2 310646, 4374591, 9280067, 3669717, [id number] #### [facility] [address] [place] [address] Basophils/Leukocytes Auto (Bld) [Pure # fraction] 0.0 E9/L Normal 0.0-0.2 [facility] Comment on above: Order Comment: Order Added by Discern Expert. Performed By: #### 2 766321, 2090423, 6143109, 4718046, [id number] #### [facility] [address] [place] [address] Eosinophils/100 WBC (Bld) 2.9 % Normal 0.0-8.0 [facility] Comment on above: Order Comment: Order Added by Discern Expert. Performed By: #### 2 959241, 2594876, 5309669, 8123433, 06647701 #### [facility] [address] [place] [address] Eosinophils/Leukocyt es Auto (Bld) [Pure # fraction] 0.3 E9/L Normal 0.0-0.5 [facility] Comment on above: Order Comment: Order Added by Discern Expert. Performed By: #### 2 981419, 3021260, 5583617, 4745538, 68677583 #### [facility] [address] [place] [address] Lymphocytes/100 WBC (Bld) 23.7 % Normal 14.0-50.0 [facility] Comment on above: Order Comment: Order Added by Discern Expert. Performed By: #### 2 919552, 5148996, 8423740, 1763403, 27141462 #### [facility] [address] [place] [address] Lymphocytes/Leukocyt es Auto (Bld) [Pure # fraction] 2.2 E9/L Normal 1.0-4.0 [facility] Comment on above: Order Comment: Order Added by Discern Expert. Performed By: #### 2 928588, 5522373, 2436519, 4463707, 46194772 #### [facility] [address] [place] [address] Monocytes/100 WBC (Bld) 7.4 % Normal 4.0-14.0 [facility] Comment on above: Order Comment: Order Added by Discern Expert. Performed By: #### 2 745573, 0591495, 6144308, 3890670, 35223161 #### [facility] [address] [place] [address] Monocytes/Leukocytes Auto (Bld) [Pure # fraction] 0.7 E9/L Normal 0.2-1.0 [facility] Comment on above: Order Comment: Order Added by Discern Expert. Performed By: #### 2 221081, 1534440, 3958236, 9690152, 64041373 #### [facility] [address] [place] [address] Neutrophils/100 WBC (Bld) 65.5 % Normal 36.0-75.0 [facility] Comment on above: Order Comment: Order Added by Discern Expert. Performed By: #### 2 188467, 0315832, 9697623, 3929365, 73886658 #### [facility] [address] [place] [address] Neutrophils/Leukocyt es Auto (Bld) [Pure # fraction] 6.0 E9/L Normal 2.0-7.5 [facility] Comment on above: Order Comment: Order Added by Discern Expert. Performed By: #### 2 960325, 3877716, 5030019, 5747913, 53394816 #### [facility] [address] [place] [address] CBC w/ Auto Diffon 0 Erythrocyte distribution width (RBC) [Ratio] 16.1 % High 10.9-14.2 [facility] Comment on above: Performed By: #### 2 618699, 0058958, 6636930, 6374118, 83086050 #### [facility] [address] [place] [address] Hematocrit (Bld) [Volume fraction] 45.1 % Normal 34.0-46.0 [facility] Comment on above: Performed By: #### 2 170951, 9972957, 8895637, 0388539, 15549621 #### [facility] [address] [place] [address] Hemoglobin (Bld) [Mass/Vol] 15.0 g/dL Normal 12.0-16.0 [facility] Comment on above: Performed By: #### 2 445557, 2144937, 5828601, 4900963, 15598552 #### [facility] [address] [place] [address] MCH (RBC) [Entitic mass] 27.2 pg Normal 27.0-34.0 [facility] Comment on above: Performed By: #### 2 539634, 9689552, 3751479, 1767102, 00881245 #### [facility] [address] [place] [address] MCHC (RBC) [Mass/Vol] 33.2 g/dL Normal 31.4-36.0 [facility] Comment on above: Performed By: #### 2 195116, 6886215, 5455780, 1879296, 72830399 #### [facility] [address] [place] [address]408 MCV (RBC) [Entitic vol] 82.0 fL Normal 80.0-100.0 [facility] Comment on above: Performed By: #### 2 111548, 0679269, 5516559, 0414172, 05805474 #### [facility] [address] [place] [address] Platelet mean volume (Bld) [Entitic vol] 7.3 fL Normal 6.4-10.8 [facility] Comment on above: Performed By: #### 2 204487, 1314913, 1740819, 6149375, 65527745 #### [facility] [address] [place] [address] Platelets (Bld) [#/Vol] 253.0 E9/L Normal 150.0-500.0 [facility] Comment on above: Performed By: #### 2 977175, 8483922, 4763845, 4987789, 64534943 #### [facility] [address] [place] [address]003 RBC (Bld) [#/Vol] 5.5 E12/L Normal 4.3-5.9 [facility] Comment on above: Performed By: #### 2 602709, 6198600, 3534758, 3710487, 88720353 #### [facility] [address] [place] [address] WBC corrected for nucl RBC Auto (Bld) [#/Vol] 9.1 E9/L Normal 4.0-11.0 [facility] Comment on above: Performed By: #### 2 439825, 3157994, 3403726, 8652122, 72937335 #### [facility] [address] [place] [address] CMPon 04-24-2020 Albumin [Mass/Vol] 3.7 g/dL Normal 3.3-5.0 [facility] Comment on above: Performed By: #### 2 957471, 8474659, 5301997, 7243334, 86543946 #### [facility] [address] [place], [place] [address] Albumin [Mass/Vol] 1.0 g/dL Low 1.1-2.2 [facility] Comment on above: Performed By: #### 2 361199, 7850140, 6312548, 1819490, 80471439 #### [facility] [address] [place] [address] ALP [Catalytic activity/Vol] 107 Int._Unit/L High 21-98 [facility] Comment on above: Performed By: #### 2 863724, 8893900, 8283641, 7091039, 82275383 #### [facility] [address] [place] [id number] ALT No additional P-5'-P [Catalytic activity/Vol] 17 Int._Unit/L Normal 6-46 [facility] Comment on above: Performed By: #### 2 135591, 7592839, 6684808, 4387298, [id number] #### [facility] [address] [place] [address] Anion gap [Moles/Vol] 11 mmol/L Normal 6-16 [facility] Comment on above: Performed By: #### 2 521695, 4912381, 8200742, 5412584, 03523293 #### [facility] [address] [place] [address] AST [Catalytic activity/Vol] 21 Int._Unit/L Normal 5-43 [facility] Comment on above: Performed By: #### 2 372348, 8538981, 1109480, 0784364, [id number] #### [facility] [address] [place] [address] Bilirubin [Mass/Vol] 0.5 mg/dL Normal 0.0-1.1 [facility] Comment on above: Performed By: #### 2 182427, 6280446, 9764588, 0807958, 64877680 #### [facility] [address] [place] [address] Calcium [Mass/Vol] 9.0 mg/dL Normal 8.9-11.1 [facility] Comment on above: Performed By: #### 2 661531, 1429502, 9909900, 2445780, 84349505 #### [facility] [address] [place] [address] Chloride [Moles/Vol] 107 mmol/L Normal 101-111 [facility] Comment on above: Performed By: #### 2 008595, 1787748, 3188722, 6789593, 66227935 #### [facility] [address] [place] [address] CO2 [Moles/Vol] 27 mmol/L Normal 21-31 [facility] Comment on above: Performed By: #### 2 346962, 6179896, 3338938, 8620535, 43081525 #### [facility] [address] [place] [address] Creatinine [Mass/Vol] 0.8 mg/dL Normal 0.5-1.3 [facility] Comment on above: Performed By: #### 2 400668, 2605965, 0416623, 0440506, 91309133 #### [facility] [address] [place] [address] Globulin (S) [Mass/Vol] 3.7 g/dL Normal 1.4-4.0 [facility] Comment on above: Performed By: #### 2 347486, 7513354, 2129879, 7646370, 17721152 #### [facility] [address] [place] [address] Glucose [Mass/Vol] 134 mg/dL Normal 55-199 [facility] Comment on above: Result Comment: If t his glucose result represents a fasting glucose, interpretation should refer to the following reference range: 55-99 mg/dL Performed By: #### 2 021481, 4691830, 6523494, 2046050, 44684252 #### [facility] [address] [place] [address] Potassium [Moles/Vol] 3.9 mmol/L Normal 3.5-5.3 [facility] Comment on above: Performed By: #### 2 676026, 4734704, 8209334, 1961246, 52558386 #### [facility] [address] [place] [address] Protein [Mass/Vol] 7.4 g/dL Normal 6.0-7.8 [facility] Comment on above: Performed By: #### 2 000262, 0343718, 4833371, 5755763, 30796739 #### [facility] [address] [place] [address] Sodium [Moles/Vol] 141 mmol/L Normal 135-145 [facility] Comment on above: Performed By: #### 2 220419, 7283939, 0445075, 7797014, 56961209 #### [facility] [address] [place] [address] Urea nitrogen [Mass/Vol] 17 mg/dL Normal 5-21 [facility] Comment on above: Performed By: #### 2 640028, 6610958, 7494696, 5566662, 89643524 #### [facility] [address] [place] [address] Urea nitrogen/Creatinine [Mass ratio] 21 No Units High 10-20 [facility] Comment on above: Performed By: #### 2 008190, 4536689, 4095749, 5133519, 66761029 #### [facility] [address] [place] [address] Consent for Treatmenton 04-10 Consent for Treatment [id number] 0CD:127 Normal [facility] Lipase Levelon 04-24-2020 Lipase [Catalytic activity/Vol] 40 unit/L Normal 13-58 [facility] Comment on above: Performed By: #### 2 533688, 1303772, 5203291, 9482403, 47003461 #### [facility] [address] [place] [address] Physician Orderon 04-24-2020 Physician Order [id number]#1.00 CD:127 Normal [facility] eGFRon 04-24-2020 GFR/1.73 sq M predicted among blacks MDRD (S/P/Bld) [Vol rate/Area] mL/min/{1.73_m2} Normal >=59 [facility] Comment on above: Order Comment: Order added by Discern Expert. Result Comment: eGFR is race adjusted. AA=. Performed By: #### 2 462712, 6665804, 2652761, 8870250, 19060136 #### [facility] [address] [place] [address] GFR/1.73 sq M predicted among non-blacks MDRD (S/P/Bld) [Vol rate/Area] mL/min/{1.73_m2} Normal >=59 [facility] Comment on above: Order Comment: Order added by Discern Expert. Result Comment: Fabric Worker Fitter farhan kidney disease could be indicated at eGFR's of less than 60 mL/min/1.73m2. Kidney failure is indicated at less than 15 mL/min/1.73m2. Performed By: #### 2 222347, 7290604, 1571393, 6886497, 25463953 #### [facility] [address] [place] [address] PROGRESSon 11-04-2019 PROGRESS HNO ID: [id number] Author: Bridger Ma Service: ? Author Type: Physician Type: Progress Notes Filed: 11/04/2019 5:12 PM Note Text: Bridger Ma MD Department of Orthopaedics Orthopaedics [address] [address] Dept: [phone] October 05, 2019 CHIEF COMPLAINT: New Patient [...] electronic medical record. Caitlyn Cantu, LIZZY [address] [facility] [address] Toby Quintana MD [address] [place] [phone] This note was partially generated using Intacct voice recognition system, and there may be some incorrect words, spellings, and punctuation that were not noted in checking the note before saving. 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 Patient had an x-ray done at [facility] on 11/02/18 and a MRI on 11/30/18. Patient hand carried copies of the reports and films on a CD. with patient today. Referred by Caitlyn Cantu. Taking Davenport and Naproxen for the pain and does not help. Using a walker today and as needed at home. Bridger Ma MD 11/04/2019 5:12 PM Signed Bridger Ma MD Department of Orthopaedics Orthopaedics [address] [place] [address] Dept: [phone] October 05, 2019 CHIEF COMPLAINT: New Patient [...] or electronic medical record. LIZZY Graham [address] [facility] [address] Toby Quintana MD [address] [place] [phone] This note was partially generated using Intacct voice recognition system, and there may be some incorrect words, spellings, and punctuation that were not noted in checking the note before saving. Bridger Ma MD Referring Provider: CAITLYN CANTU [[id number]] Allergies As of Date: 10/05/2019 Noted Allergy [...] mg injection (CELESTONE)Disp: Rfl: [facility] [[id number]] Order #: [id number]: 1 Large Joint Arthro/Inj: R knee joint [YMG380] Order #: [id number] betamethasone acetate-betamethasone sodium phosphate 6 mg injection [...] Status:Closed by BRIDGER MA MD on 11/04/19 [facility] PROGRESSon 10-05-2019 PROGRESS HNO ID: [id number] Author: Eleanor Talbot Ma Service: ? Author Type: ? Type: Progress Notes Filed: 11/04/2019 5:12 PM Note Text: Patient presents with: New Patient: Right knee pain - Ref. 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 Patient had an x-ray done at [facility] on 11/02/18 and a MRI on 11/30/18. Patient hand carried copies of the reports and films on a CD. with patient today. Referred by Caitlyn Cantu. Taking Davenport and Naproxen for the pain and does not help. Using a walker today and as needed at home. Normal [facility] CREATININEon 08-26-2019 Creatinine [Mass/Vol] 0.80 mg/dL Normal 0.50 - 1.05 [facility] Comment on above: Performed By: #### C REAT #### [address] [address] Creatinine [Mass/Vol] mg/dL Normal >60 [facility] Comment on above: Performed By: #### C REAT #### [address] [address] Result Comment: CALC ULATIONS OF ESTIMATED GFR ARE PERFORMED USING THE MDRD STUDY EQUATION FOR THE IDMS-TRACEABLE CREATININE METHODS. CLIN CHEM 2007;53:766-72 ELECTROLYTE PANELon 08-26-20 19 Anion gap [Moles/Vol] 14 mmol/L Normal - 20 [facility] Comment on above: Performed By: #### E LECT #### [address] [address] Chloride [Moles/Vol] 104 mmol/L Normal 98 - 107 [facility] Comment on above: Performed By: #### E LECT #### [address] [address] HCO3 (Bld) [Moles/Vol] 29 mmol/L Normal 21 - 32 [facility] Comment on above: Performed By: #### E LECT #### [address] [address] Potassium [Moles/Vol] 4.6 mmol/L Normal 3.5 - 5.3 [facility] Comment on above: Performed By: #### E LECT #### [address] [address] Sodium [Moles/Vol] 142 mmol/L Normal 136 - 145 [facility] Comment on above: Performed By: #### E LECT #### [facility] [address] [place] [address] UREA NITROGENon 08-26-2019 Urea nitrogen [Mass/Vol] 14 mg/dL Normal 6 - 23 [facility] Comment on above: Performed By: #### U CARLOS #### [address] [address] [facility] CARDIAC STRESS/REST INJE CTIONon 08-25-2019 [facility] CARDIAC STRESS/REST INJECTION Patient Name: ADRIANA DINERO STUDY: MYOCARDIAL PERFUSION STRESS TEST WITH LEXISCAN Performing facility: [facility], [address] [place] [address], [address], [place] [address] [facility] Provider: GURU LU PCP: Dr. Poli QUINTANA Supervising provider: Poli VILLAFANA INDICATION: DYSPNEA EDEMA HISTORY: Gender: F; Age: 64 y/o ; Height: 170.18 cm; Weight: 127.712681 kg. SOB High Cholesterol; Family HX CAD; PALPITATIONS COMPARISON: ACCESSION NUMBER(S): [id number] ORDERING CLINICIAN: IBAN LU TECHNIQUE: TWO DAY [...] Electronically signed by: IBAN LU MD Normal [facility] OT-MRI KNEE RT WO CON IMPORT on 07-27-2019 OT-MRI KNEE RT WO CON IMPORT Images were obtained outside of [facility] [id number] Normal [facility] CNOVon 07-07-2019 CNOV Office Visit (SPNMED ) ADRIANA DINERO ([id number]) 1955 F Date Time Provider Department 07/07/19 9:40 AM [facility] During your visit today, we recorded the following information about you: Pulse Blood pressure Weight Height 80/minute 126/55 124.1 kg 1.676 m LIZZY Graham 07/07/2019 1:08 PM Signed BEVERLEY Lopez [facility] [address] [place] [address] 07/07/2019 Assessment Diagnosis: Encounter Diagnosis ICD-10-CM 1. [...] told for multiple years that she has vdts-fz-watq arthritis in the right knee and this [...] providers who practice within [facility] or with access to [employer] via MD Connect, or via letter. - [...] past--performed in [address] Jones in [place]. The procedure was a spinal laminectomy and fusion L2-4, and subsequent revision L2-5 lami/fusion with posterior hardware and interbody cages. 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 Author Type: Physician Critical Care Unit Manager Type: Progress Notes Filed: 07/07/2019 1:08 PM Note Text: [facility]u [facility]C [facility] [address] [place] [address] 07/07/2019 Assessment Diagnosis: Encounter Diagnosis ICD-10-CM 1. [...] told for multiple years that she has ltuv-fr-bzjf arthritis in the right knee and this [...] providers who practice within [facility] or with access to [employer] via MD Connect, or via letter. SUBJECTIVE: [...] past--performed [place] [address] Jones in [place]. The procedure was a spinal laminectomy and fusion L2-4, and subsequent revision L2-5 lami/fusion with posterior hardware and interbody cages. 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 IMAGING STUDIES: See above Normal [facility] CT-CT cervical spine w con I MPORTon 04-08-2019 CT-CT cervical spine w con IMPORT Images were obtained outside of [facility] [id number] Normal [facility] CT-CT cervical spine w con IMPORT Images were obtained outside of [facility] [id number] Normal [facility] CT-CT cervical spine w con IMPORT Images were obtained outside of [facility] [id number] Normal [facility] CT-CT lumbar spine w con IMP Edi 04-08-2019 CT-CT lumbar spine w con IMPORT Images were obtained outside of [facility] [id number] Normal [facility] CT-CT lumbar spine w con IMPORT Images were obtained outside of [facility] [id number] Normal [facility] CT-CT lumbar spine w con IMPORT Images were obtained outside of [facility] [id number] Normal [facility] OT-IR myelogram spine total IMPORTon 04-08-2019 OT-IR myelogram spine total IMPORT Images were obtained outside of [facility] [id number] Normal [facility] OT-IR myelogram spine total IMPORT Images were obtained outside of [facility] [id number] Normal [facility] OT-IR myelogram spine total IMPORT Images were obtained outside of [facility] [id number] Normal [facility] OT-MRI C-SPINE WO CON IMPORT on 02-25-2019 OT-MRI C-SPINE WO CON IMPORT Images were obtained outside of [facility] [id number] Normal [facility] OT-XR KNEE RT 4V OR > IMPORT on 11-30-2018 OT-XR KNEE RT 4V OR > IMPORT Images were obtained outside of [facility] [id number] [facility] Vital Signs Date Time Vital Sign Value Performing Clinician Facility 08-12-2024 09: Body height 165.1 cm [facility] 08-12-2024 09: Body mass index (BMI) [Ratio] 39.2 kg/m2 [facility] 08-12-2024 09: Body weight 106.76 kg [facility] 08-12-2024 09: Diastolic blood pressure 72 mm[Hg] [facility] 08-12-2024 09: Heart rate 75 /min [facility] 08-12-2024 09:23-0400 Respiratory rate 16 /min [facility] 08-12-2024 09:23-0400 SaO2% (BldA) [Mass fraction] 96 % [facility] 08-12-2024 09:23-0400 Systolic blood pressure 128 mm[Hg] [facility] 04-30-2024 09:12-0400 Body height 165.1 cm [facility] 04-30-2024 09:12-0400 Body mass index (BMI) [Ratio] 39.6 kg/m2 [facility] 04-30-2024 09:12-0400 Body weight 107.95 kg [facility] 04-30-2024 09:12-0400 Diastolic blood pressure 74 mm[Hg] [facility] 04-30-2024 09:12-0400 Heart rate 75 /min [facility] 04-30-2024 09:12-0400 Systolic blood pressure 109 mm[Hg] [facility] 03-22-2024 13:18-0400 Body height 165.1 cm [facility] 03-22-2024 13:18-0400 Body mass index (BMI) [Ratio] 39.7 kg/m2 [facility] 03-22-2024 13:18-0400 Body weight 108.4 kg [facility] 03-22-2024 13:18-0400 Diastolic blood pressure 77 mm[Hg] [facility] 03-22-2024 13:18-0400 Heart rate 75 /min [facility] 03-22-2024 13:18-0400 Systolic blood pressure 127 mm[Hg] [facility] 02-10-2024 13:04-0400 Body height 167.64 cm [facility] 02-10-2024 13:04-0400 Body mass index (BMI) [Ratio] 38.5 kg/m2 [facility] 02-10-2024 13:04-0400 Body weight 108.4 kg [facility] 02-10-2024 13:04-0400 Diastolic blood pressure 73 mm[Hg] [facility] 02-10-2024 13:04-0400 Heart rate 85 /min [facility] 02-10-2024 13:04-0400 Systolic blood pressure 105 mm[Hg] [facility] 01-19-2024 08:44-0400 Body height 167.64 cm [facility] 12-30-2023 09:55-0500 Body height 167.64 cm [facility] 12-30-2023 09:55-0500 Body mass index (BMI) [Ratio] 38.9 kg/m2 [facility] 12-30-2023 09:55-0500 Body weight 109.31 kg [facility] 12-30-2023 09:55-0500 Diastolic blood pressure 76 mm[Hg] [facility] 12-30-2023 09:55-0500 Heart rate 69 /min [facility] 12-30-2023 09:55-0500 Systolic blood pressure 120 mm[Hg] [facility] 12-09-2023 10:32-0500 Diastolic blood pressure 80 mm[Hg] Iban Lu MD Work Phone: [facility] 12-09-2023 10:32-0500 Systolic blood pressure 130 mm[Hg] Iban Lu MD Work Phone: [facility] 12-09-2023 09:46-0500 Body height 167.6 cm Iban Lu MD Work Phone: [facility] 12-09-2023 09:46-0500 Body mass index (BMI) [Ratio] 39.06 kg/m2 Iban Lu MD Work Phone: [facility] 12-09-2023 09:46-0500 Body weight 109.77 kg Iban Lu MD Work Phone: [facility] 12-09-2023 09:46-0500 Heart rate 68 /min Iban Lu MD Work Phone: [facility] 08-20-2023 09:00-0400 Body height 167.64 cm Toby Quintana Other [employer] Other 08-20-2023 09:00-0400 Body mass index (BMI) [Ratio] 38.38 kg/m2 Toby Quintana Other [employer] Other 08-20-2023 09:00-0400 Body weight 107.87 kg Toby Quintana Other [employer] Other 08-20-2023 09:00-0400 Diastolic blood pressure 75 mm[Hg] Toby Quintana Other [employer] Other 08-20-2023 09:00-0400 Systolic blood pressure 108 mm[Hg] Toby Quintana Other [employer] Other 04-24-2023 11:15-0400 Body height 167.64 cm Toby Quintana Other [employer] Other 04-24-2023 11:15-0400 Body mass index (BMI) [Ratio] 38.73 kg/m2 Toby Quintana Other [employer] Other 04-24-2023 11:15-0400 Body weight 108.86 kg Toby Quintana Other [employer] Other 04-24-2023 11:15-0400 Diastolic blood pressure 79 mm[Hg] Toby Quintana Other [employer] Other 04-24-2023 11:15-0400 Systolic blood pressure 114 mm[Hg] Toby Quintana Other [employer] Other 02-07-2023 09:30-0400 Body height 167.64 cm Toby Quintana Other [employer] Other 02-07-2023 09:30-0400 Body mass index (BMI) [Ratio] 39.99 kg/m2 Toby Quintana Other [employer] Other 02-07-2023 09:30-0400 Body weight 112.4 kg Toby Quintana Other [employer] Other 02-07-2023 09:30-0400 Diastolic blood pressure 68 mm[Hg] Toby Quintana Other [employer] Other 02-07-2023 09:30-0400 Respiratory rate 18 /min Toby Quintana Other [employer] Other 02-07-2023 09:30-0400 SaO2% (BldA) [Mass fraction] 93 % Toby Quintana Other [employer] Other 02-07-2023 09:30-0400 Systolic blood pressure 142 mm[Hg] Toby Quintana Other [employer] Other 01-08-2023 10:00-0500 Body height 167.64 cm Samuel Edgerton II Other [employer] Other 01-08-2023 10:00-0500 Body mass index (BMI) [Ratio] 40.19 kg/m2 Samuel Edgerton II Other [employer] Other 01-08-2023 10:00-0500 Body weight 112.95 kg Samuel Edgerton II Other [employer] Other 12-09-2022 13:25-0500 Body height 167.64 cm Toby Quintana Work Phone: [facility] DO Work Phone: 12-09-2022 13:25-0500 Body mass index (BMI) [Ratio] 40.03 kg/m2 Toby Quintana Work Phone: [facility] DO Work Phone: 12-09-2022 13:25-0500 Body surface area Derived from formula 2.19 m2 Toby Quintana Work Phone: [facility] DO Work Phone: 12-09-2022 13:25-0500 Body weight 112.49 kg Toby Quintana Work Phone: [facility] DO Work Phone: 12-09-2022 13:25-0500 Diastolic blood pressure 80 mm[Hg] Toby Quintana Work Phone: [facility] [facility] DO Work Phone: 12-09-2022 13:25-0500 Heart rate 78 /min Toby Quintana Work Phone: [facility] [facility] DO Work Phone: 12-09-2022 13:25-0500 Systolic blood pressure 118 mm[Hg] Toby Quintana Work Phone: [facility] DO Work Phone: 11-22-2022 09:00-0500 Body height 167.64 cm Leeann Blades Other [employer] Other 11-22-2022 09:00-0500 Body mass index (BMI) [Ratio] 39.54 kg/m2 Leeann Blades Other [employer] Other 11-22-2022 09:00-0500 Body weight 111.13 kg Leeann Blades Other [employer] Other 09-04-2021 13:27-0400 Body height 170.18 cm Toby Quintana Work Phone: [facility] [facility] DO Work Phone: 09-04-2021 13:27-0400 Body mass index (BMI) [Ratio] 39.78 kg/m2 Toby Quintana Work Phone: [facility] [facility] DO Work Phone: 09-04-2021 13:27-0400 Body surface area Derived from formula 2.24 m2 Toby Quintana Work Phone: [facility] DO Work Phone: 09-04-2021 13:27-0400 Body weight 115.21 kg Toby Quintana Work Phone: [facility] [facility] DO Work Phone: 09-04-2021 13:27-0400 Diastolic blood pressure 78 mm[Hg] Toby Quintana Work Phone: [facility] [facility] DO Work Phone: 09-04-2021 13:27-0400 Heart rate 80 /min Toby Quintana Work Phone: [facility] [facility] DO Work Phone: 09-04-2021 13:27-0400 Systolic blood pressure 104 mm[Hg] Toby Quintana Work Phone: [facility] [facility] DO Work Phone: Encounters Encounter Date Encounter Type Care Provider Facility Start: 08-12-2024 End: 08-12-2024 ambulatory [facility] Work Phone: Start: 08-12-2024 End: 08-12-2024 Patient encounter procedure [facility] Work Phone: Start: 04-30-2024 End: 04-30-2024 ambulatory [facility] Work Phone: Start: 04-30-2024 End: 04-30-2024 Patient encounter procedure [facility] Work Phone: Start: 03-22-2024 End: 03-22-2024 ambulatory [facility] Work Phone: Start: 03-22-2024 End: 03-22-2024 Patient encounter procedure [facility] Work Phone: Start: 02-10-2024 End: 02-10-2024 ambulatory [facility] Work Phone: Start: 02-10-2024 End: 02-10-2024 Patient encounter procedure [facility] Work Phone: Start: 01-19-2024 End: 01-19-2024 Patient encounter procedure [facility] Work Phone: Start: 01-14-2024 Non-patient / Non-visit [facility] Work Phone: Start: 01-05-2024 Non-patient / Non-visit [facility] Work Phone: Start: 12-30-2023 Patient encounter procedure [facility] Start: 12-30-2023 End: 12-30-2023 ambulatory [facility] Work Phone: Start: 12-30-2023 End: 12-30-2023 Patient encounter procedure [facility] Work Phone: Start: 12-19-2023 End: 12-19-2023 ambulatory Toby Quintana Other [employer] Other Start: 12-19-2023 Telephone encounter Toby Quintana [facility] Start: 12-17-2023 End: 12-17-2023 ambulatory Toby Quintana Other [employer] Other Start: 12-17-2023 Telephone encounter Toby Quintana [facility] Start: 12-16-2023 (Televisit) Televisit Toby Quintana [facility] Start: 12-16-2023 End: 12-16-2023 ambulatory Toby Quintana Other [employer] Other Start: 12-09-2023 End: 12-09-2023 Office outpatient visit 25 minutes Iban Lu MD Work Phone: [facility] Comment on above: Supraventricular tac hycardia by ECG (Primary Dx); Mixed hyperlipidemia; Palpitations; Class II obesity Start: 12-09-2023 End: 12-09-2023 ambulatory IBAN Ashton [facility] Ambulatory Start: 12-08-2023 End: 12-08-2023 ambulatory Toby Quintana Other [employer] Other Start: 12-08-2023 Telephone encounter Toby Quintana [facility] Start: 11-04-2023 End: 11-04-2023 ambulatory Toby Pat Other [employer] Other Start: 11-04-2023 Telephone encounter Toby Pat [facility] Start: 10-21-2023 (Televisit) Televisit Toby Quintana [facility] Start: 10-21-2023 End: 10-21-2023 ambulatory Toby Quintana Other [employer] Other Start: 10-21-2023 End: 10-21-2023 Patient encounter procedure [facility] Work Phone: Start: 10-20-2023 End: 10-20-2023 ambulatory Toby Quintana Other [employer] Other Start: 10-20-2023 Telephone encounter Toby Pat [facility] Start: 09-25-2023 (Televisit) Televisit Toby Quintana [facility] Start: 09-25-2023 End: 09-25-2023 ambulatory Toby Quintana Other [employer] Other Start: 09-22-2023 (Televisit) Televisit Toby Quintana [facility] Start: 09-22-2023 End: 09-22-2023 ambulatory Toby Quintana Other [employer] Other Start: 09-22-2023 Telephone encounter Toby Quintana [facility] Start: 08-20-2023 End: 08-20-2023 ambulatory Toby Quintana Other [employer] Other Start: 08-20-2023 Patient encounter procedure Toby Quintana [facility] Start: 05-22-2023 Telephone encounter Toby eugene Work Phone: [facility] 600 DO Work Phone: Start: 05-12-2023 End: 05-12-2023 ambulatory Toby Quintana Other [employer] Other Start: 05-12-2023 Telephone encounter Toby Quintana [facility] Start: 04-24-2023 End: 04-24-2023 ambulatory Toby Quintana Other [employer] Other Start: 04-24-2023 Office outpatient vi sit 15 minutes Toby Quintana [facility] Start: 04-11-2023 End: 04-11-2023 ambulatory Toby Quintana Other [employer] Other Start: 04-11-2023 Telephone encounter Toby Quintana [facility] Start: 03-13-2023 End: 03-13-[address] EVIN BYRES Facility:UNKNOWN Start: 03-13-[address] Toby Quintana Facility:[id number] Start: 02-07-2023 End: 02-07-2023 ambulatory Toby Quintana Other [employer] Other Start: 02-07-2023 Patient encounter procedure Toby Quintana [facility] Start: 02-03-2023 End: 02-03-2023 ambulatory Leeann Blades Other [employer] Other Start: 02-03-2023 Telephone encounter Leeann Blades [facility] [employer] Start: 01-27-2023 End: 01-27-2023 ambulatory Leeann Blades Other [employer] Other Start: 01-27-2023 Telephone encounter Leeann Blades [facility] Start: 01-21-[address] TOBY QUINTANA [facility] ity:H1 Start: 01-16-2023 End: 01-16-2023 ambulatory Samuel Guajardoisle II Other [employer] Other Start: 01-16-2023 Telephone encounter Samuel Chatman II [employer] Start: 01-08-2023 [facility]QHC visit new patient Samuel Goodman nayeli II [facility] Start: 01-08-2023 End: 01-08-2023 ambulatory Samuel Chatman II Facility:[facility] Start: 01-08-2023 End: 01-08-2023 ambulatory MD Toby Quintana Work Phone: [facility] Work Phone: Start: 01-08-2023 End: 01-08-2023 Patient encounter procedure MD Toby Quintana Work Phone: [facility] Start: 01-02-2023 End: 01-02-2023 ambulatory Toby Quintana Other [employer] Other Start: 01-02-2023 Telephone encounter Leeann Blades [facility] Start: 12-30-2022 End: 12-30-2022 ambulatory Leeann Blades Other [employer] Other Start: 12-30-2022 Telephone encounter Leeann Blades [facility] Start: 12-26-2022 End: 12-26-2022 ambulatory Leeann Blades [facility] [employer] Other Start: 12-26-2022 Telephone encounter Leeann Blades [facility] Start: 12-19-2022 End: 12-19-2022 ambulatory Leeann Blades [facility] [employer] Other Start: 12-19-2022 Telephone encounter Leeann Blades F [facility] Start: 12-17-2022 End: 12-17-2022 ambulatory Toby Quintana [facility] [employer] Other Start: 12-17-2022 Telephone encounter Toby Quintana [facility] Start: 12-10-2022 End: 12-10-2022 ambulatory Toby Quintana [facility] [employer] Other Start: 12-10-2022 Telephone encounter Toby Quintana [facility] Start: 12-09-2022 Office outpatient vi sit 25 minutes Toby Quintana Work Phone: [facility] 250 DO Work Phone: Start: 12-09-[address] Iban Lu Facility: Start: 11-25-2022 End: 11-25-2022 ambulatory Leeann Blades Other [facility] [employer] Other Start: 11-25-2022 Telephone encounter Leeann Blades [facility] [employer] Start: 11-22-2022 Office outpatient ne w 45 minutes Leeann Blades [facility] Start: 11-22-2022 End: 11-22-2022 ambulatory Leeann Blades Facility:[facility] Start: 11-22-2022 End: 11-22-2022 ambulatory MD Toby Quintana Work Phone: [facility] Work Phone: Start: 11-22-2022 End: 11-22-2022 Patient encounter procedure MD Toby Quintana Work Phone: [facility] Work Phone: Start: 11-05-2022 Adult health examination Nannette Quintana Other [facility] [employer] Other Start: 11-05-2022 Pre-procedure evalua tion check Toby Quintana Other [facility] [employer] Other Start: 10-04-2022 End: 10-05-[address] SHALA OMER Facility:H1 Start: 09-16-2022 Rx Renewal Toby Quintana Work Phone: [facility] 250 DO Work Phone: Start: 07-24-2022 End: 07-24-[address] TOBY QUINTANA Facility:H1 Start: 07-22-2022 End: 07-22-[address] LAUREL RBAVO Facility:H1 Start: 04-18-2022 Encounter for genera l adult medical examination without abnormal findings DR TOBY QUINTANA [facility] Start: 04-13-2022 End: 04-14-[address] TOBY QUINTANA Facility:H1 Start: 04-12-2022 End: 04-13-[address] TOBY QUINTANA Facility:H1 Start: 04-12-2022 End: 04-13-2022 Encounter for general adult medical examination without abnormal findings DR TOBY QUINTANA Facility:H1 Start: 09-04-2021 FUV, Provider: Iban Lu, Status: Pen, Time: 2:00 PM Toby Quintana Work Phone: [facility] [address] [place] Work Phone: Start: 09-04-2021 Office outpatient vi sit 25 minutes Toby Quintana Work Phone: [facility] DO Work Phone: Start: 08-30-2021 Rx Renewal Toby Quintana Work Phone: [facility] [address] [place] Work Phone: Procedures Date [...] procedure 12/09/2024 9:00 AM EST Office Visit [facility] [address] [address] Iban Lu MD [address] [facility] [address], [address] [address] [facility] Start: 04-30-2024 Patient referral [facility] Work Phone: Start: 03-22-2024 Patient referral [facility] Work Phone: Start: 01-19-2024 Patient referral [facility] Work Phone: Start: 12-09-2023 End: 12-09-2024 Basic metabolic 2000 panel - Serum or Plasma Basic Metabolic Panel Lab Routine Supraventricular tachycardia by ECG Palpitations Expected: 12/09/2023 (Approximate), Expires: 12/09/2024 [facility] Service Area Work Phone: Comment on above: Expected: 12/09/2023 (Approximate), Expires: 12/09/2024 Start: 12-09-2023 FUV, Provider: Iban Lu, Status: Pen, Time: 10:00 AM FUV, Provider: Iban Lu, Status: Pen, Time: 10:00 [facility] [employer] Work Phone: Start: 07-11-2023 COVID-19 Vaccine ( season) COVID-19 Vaccine ( season) [facility] Start: 07-11-2023 Influenza vaccination Influenza Vacc ine (#1) [facility] Start: 09-20-2022 FUV, Provider: Iban Lu, Status: Pen, Time: 2:20 PM FUV, Provider: Iban Lu, Status: Pen, Time: 2:20 PM [facility] [employer] 250 DO Work Phone: Start: 09-05-2022 FUV, Provider: Iban Lu, Status: Pen, Time: 11:20 AM FUV, Provider: Iban Lu, Status: Pen, Time: 11:20 AM [facility] [employer] [facility] DO Work Phone: Start: 01-19-2006 Zoster Vaccines (1 o f 2) Zoster Vaccines (1 of 2) [facility] Start: 1996 Screening for malign ant neoplasm of breast Mammogram [facility] Start: 01-19-1978 DTaP/Tdap/Td Vaccine s (1 - Tdap) DTaP/Tdap/Td Vaccines (1 - Tdap) [facility] Start: 01-19-1974 [facility] Start: 01-19-1962 Pneumococcal Vaccine : 65+ Years (1 - PCV) Pneumococcal Vaccine: 65+ Years (1 - PCV) [facility] Start: 1955 Lipid panel Lipid Panel [facility] Start: 1955 Medicare Annual Wellness Visit Medicare Annual Wellness Visit (AWV) [facility] Start: 1956 Screening for malign ant neoplasm of colon [facility] Start: 1955 Screening for osteoporosis Bone Density Scan [facility] Comprehensive metabo lic 2000 panel - Serum or Plasma [facility] Patient referral [facility] Work Phone: [place] Lower extremity v ein - bilateral [facility] Immunizations Immunization Date Immunization Notes Care Provider Fa cility 09-06-2022 Pfizer COVID-19 Vac Bivalent 30 MCG/0.3ML Intramuscular Suspension Toby Quintana Work Phone: [facility] DO Work Phone: 07-02-2021 Pfizer-BioNTech COVI D-19 Vacc 30 MCG/0.3ML Intramuscular Suspension Toby Quintana Work Phone: [facility] Comment on above: Series: 06-11-2021 Pfizer-BioNTech COVI D-19 Vacc 30 MCG/0.3ML Intramuscular Suspension Toby Quintana Work Phone: [facility] Comment on above: Series: 09-12-2014 tetanus and diphther ia toxoids, adsorbed, preservative free, for adult use (5 Lf of tetanus toxoid and 2 Lf of diphtheria toxoid) Toby Quintana Other [facility] 09-15-2013 tetanus and diphther ia toxoids, adsorbed, preservative free, for adult use (5 Lf of tetanus toxoid and 2 Lf of diphtheria toxoid) Toby Quintana Other [facility] 09-14-2013 influenza, seasonal, injectable Toby Quintana Work Phone: [facility] 09-14-2013 influenza virus vacc ine, unspecified formulation Iban Lu MD Work Phone: [facility] Work Phone: 08-10-2013 influenza virus vacc ine, unspecified formulation Toby Quintana Work Phone: [facility] 250 DO Work Phone: 07-19-2012 influenza virus vacc ine, unspecified formulation Toby Schofield Quintana Work Phone: [facility] 250 DO Work Phone: 11-10-2009 influenza virus vacc ine, unspecified formulation Toby Schofield Quintana Work Phone: [facility] 250 DO Work Phone: 08-10-2009 influenza virus vacc ine, unspecified formulation Toby Schofield Quintana Work Phone: [facility] 250 DO Work Phone: 07-14-2007 pneumococcal polysaccharide vaccine, 23 valent Toby Quintana Other [facility] Payers Date Payer Category Payer Medicare AETNA MEDICARE A ETNA MEDICARE VALUE PLAN [id number] 2023-Present [address] [place] [address] [id number] 2023 Medicare [id number] 2022 Self-pay [id number] 1959 Unknown [id number] 1959 Unknown [id number] 2.16.8 [id number] 1956 Unknown [id number] 1956 Unknown [id number] 1956 Unknown [id number] 1956 Unknown [id number] 1956 Unknown [id number] 1956 Unknown [id number] [id number] 1956 Unknown [id number] [id number] 1956 Unknown [id number] [id number] 1956 Unknown [id number] 1956 Unknown [id number] Unknown Unknown HCAP/HFA/FAP Active [id number] Unknown [id number] Unknown [id number] Social History Date Type Detail Facility Start: 12-09-2023 No illicit drug use No illicit drug use [address] Work Phone: Comment on above: Coffee 1 cup daily; quit 1987; Start: 1955 Sex Assigned At Female F [facility] Start: 12-09-2023 Sex Assigned At N [facility] [employer] Other Start: 12-09-2023 Tobacco smoking status NHIS Ex-smoker [facility] Work Phone: History of tobacco use Current smoker [facility] Work Phone: History of tobacco use Cigarette Smoker [facility] Work Phone: Start: 12-09-2023 Tobacco use and exposure Smokeless tobacco non-user [facility] Work Phone: Start: 12-09-2023 Alcohol intake Lifetime non-d mary (finding) [facility] Work Phone: Start: 1955 [facility] Start: 11-29-2023 End: 12-09-2023 Exposure to SARS-CoV-2 (event) Not sure [facility] Clinical Notes 11-22-2022 to 03-22-2024 Note Date & Type Note Facility 03-22-2024 Hospital Discharg e instructions Ambulatory OrdersReferral to Orthopedics Time Frame: 03/22/24, Location: None [facility] Work Phone: 12-17-2023 Evaluation note Encounter Date Diagnosis Assessment Notes Dec, Jaw swelling (ICD-10 - R22.0) [employer] Other 02-06-2024 Evaluation note* Encounter Date Diagnosis Assessment Notes Treatment Notes Treatment Clinical Notes Dec, Dental infection (ICD-10 - K04.7) Pt will contact her insurance, find a different dentist. Will continue antibiotic at this time. [employer] Other 01-30-2024 History of Present illness Narrative* [...] follow-up will be scheduled Iban Lu MD, [facility] Review of Systems Cardiovascular: Positive for palpitations. [...] EVENING, Disp: 225 tablet, Rfl: 0 omega 9-zdi-mfp-fish oil 360 mg-108 mg- 180 mg-1,200 mg [...] of Iban Lu MD. documented in [facility] Work Phone: [phone] Instructions* Patient Instructions* Nataliya Manning LPN - [...] Follow up one year documented in [facility]Sum[facility] Work Phone: [phone] Evaluation note* Encounter Date Diagnosis Assessment Notes Treatment Notes Treatment Clinical Notes Oct, Open fracture of tooth, initial encounter (ICD-10 - S02.5XXB) Keep area clean, brush and rinse frequently. seeing dentist next week. Oct, Lumbar radiculitis (ICD-10 - M54.16) pt requests refill for her chronic back issues. We discussed her treatment plan w Dr. Byers. [employer] Other 11-16-2023 Evaluation note* Encounter Date Diagnosis Assessment Notes Treatment Notes Treatment Clinical Notes Sep, Lumbar radiculitis (ICD-10 - M54.16) CHanged pain med. Jax will call Dr. Byers's office for a change in treatment plan and an appt. Sep, Nausea & vomiting (ICD-10 - R11.2) States that zofran has not helped in the past - phenergan sent in for short term use. [employer] Other 11-13-2023 Evaluation note* Encounter Date Diagnosis Assessment Notes Treatment Notes Treatment Clinical Notes Sep, Radiculopathy, lumbar region (ICD-10 - M54.16) My staff reviewed her case with Dr. Byers's staff. She is to call their office for follow-up appointment next month. Patient does not want another injection and would rather have an ablation. Trial of tramadol sent to pharmacy. O[facility] reviewed. [employer] Other 10-11-2023 Evaluation note* Encounter Date Diagnosis Assessment Notes Treatment Notes Treatment Clinical Notes Aug, Pain in right knee (ICD-10 - M25.561) Aug, Other chronic pain (ICD-10 - G89.29) Aug, Pain in left knee (ICD-10 - M25.562) [employer] Other 03-31-2023 Evaluation note* Encounter Date Diagnosis Assessment Notes Treatment Notes Treatment Clinical Notes Jan, Nausea & vomiting (ICD-10 - R11.2) Jan, Pain in right knee (ICD-10 - M25.561) Jan, Other chronic pain (ICD-10 - G89.29) Jan, Pain in left knee (ICD-10 - M25.562) [employer] Other 03-31-2023 Evaluation note* Encounter Date Diagnosis Assessment Notes Treatment Notes Treatment Clinical Notes Jan, Nausea & vomiting (ICD-10 - R11.2) chronic problem - requesting refill on Zofran Jan, Pain in right knee (ICD-10 - M25.561) Jan, Other chronic pain (ICD-10 - G89.29) Jan, Pain in left knee (ICD-10 - M25.562) [employer] Other 03-01-2023 Evaluation note* Encounter Date Diagnosis [...] She would prefer to stay close to [place]. Our office is working to get her referral to pain management near [place]. [employer] Other 01-31-2023 Evaluation note* Encounter Date Diagnosis Assessment Notes Treatment Notes Treatment Clinical Notes Nov, Lumbar pain (ICD-10 - M54.50) [employer] Other 01-13-2023 Evaluation note* Encounter Date Diagnosis Assessment Notes Treatment Notes Treatment Clinical Notes Nov, Low back pain, unspecified back pain laterality, unspecified chronicity, unspecified whether sciatica present (ICD-10 - M54.50) [employer] Other evalzzmryy noteNo assessment information available [facility] Work Phone: Evaluation noteNo InformationNort [employer] Other evaluation [employer]No[employer] Other Evaluation note* Diagnosis Supraventricular tachycardia by ECG- Primary Mixed hyperlipidemia Palpitations Class II obesity documented in this encounter [facility] Work Phone: Evaluation note* Diagnosis Onset Date Resolution Status Fatigue acute Hyperlipidemia acute Lumbar radiculopathy, chronic acute Medicare annual wellness visit, subsequent acute SVT (supraventricular tachycardia) acute [facility] Work Phone: Evaluation note* Diagnosis Onset Date Resolution Status Fatigue acute Hyperlipidemia acute Lumbar radiculopathy, chronic acute Medicare annual wellness visit, subsequent acute SVT (supraventricular tachycardia) acute Lumbar radiculopathy, chronic acute [facility] Work Phone: Evaluation note* Diagnosis Onset Date Resolution Status Fatigue acute Hyperlipidemia acute Lumbar radiculopathy, chronic acute Medicare annual wellness visit, subsequent acute SVT (supraventricular tachycardia) acute Lumbar radiculopathy, chronic acute Left knee pain acute Lumbar radiculopathy, chronic acute Right knee pain acute Left knee pain acute Right knee pain acute [facility] Work Phone: Evaluation note* Diagnosis Onset Date Resolution Status Left knee pain acute Lumbar radiculopathy, chronic acute Right knee pain acute Bilateral cold feet acute Left knee pain acute Right knee pain acute Bilateral lower extremity pain acute Diminished pulses in lower extremity acute PAD (peripheral artery disease) acute [facility] Work Phone: History general Narrative - [...] childbirth Hospitalization History hysterectomy Hospitalization History pancreatitis [facility] [employer] Other History general Narrative - [facility] [employer] Other Hospital Discharge instructionsAmbulatory Orders* Referral to Vascular Surgery Time Frame: 04/30/24, Location: None Selected [facility] Work Phone: Reason for referral (narrative)* Consultation (Routine) - Authorized Specialty Diagnoses / Procedures Referred By Contac t Referred To Contact Cardiology Diagnoses Supraventricular tachycardia by ECG Procedures Follow Up In Cardiology Iban Lu MD [address] [facility], [address] [address] Iban Lu MD [address] [facility], [facility] [address] [place] [address] Referral ID Status Reason Start Date Expiration Date V isits Requested Visits Authorized [id number] Authorized 12/09/2023 12/08/2024 1 1 [facility] Work Phone: Reason for visit NarrativePain Medicine Referral [facility] [employer] Other Summary Purpose Family History Unknown Family [...] and provided the patient with 2 local warranty administrator in town. * ASSESSMENT AND PLAN: * [...] will be scheduled * Iban Lu MD, [facility] Chief Complaint and Reason for Visit Chief Complaint xray Chief Complaint Swollen Face, [place]- [phone] Medicare Wellness Reason for Visit Fatigue Hyperlipidemia Lumbar radiculopathy, chronic Medicare annual wellness visit, subsequent SVT (supraventricular tachycardia) Chief Complaint Medicare Wellness Amb Documentation pulled [phone] knee injections Reason for Visit Fatigue Hyperlipidemia Lumbar radiculopathy, chronic Medicare annual wellness visit, subsequent SVT (supraventricular tachycardia) Lumbar radiculopathy, chronic Chief Complaint Medicare Wellness Amb Documentation pulled [phone] knee injections leg swelling - hot cold [...] back pain, unspe cified (M54.50) [facility] Referring Provider First Name [facility] Referring Provider Last Name Blades Referring Provider Specialty Neurologica l Surgery Referred Organization [facility] Referred Provider Albertina Oconnell Referred Address [address], [place],[address] Referred Provider Specialty Pain Medicin e Referral Priority Routine Referral Appointment Date 2023-01-21 General Notes [facility] 023 09:03:40 AM >Received today and waiting for office notes to be locked before sending referral [facility] 01/01/2023 07:37:06 AM >Referral was fax [facility] 01/08/2023 09:26:41 AM >Referral was refax to the correct office with their form Trini Suazo 01/08/2023 02:11:33 PM >received letter, pt has appt scheduled for 01/21/2023 Clinical Notes Phone: Reason 01/08/23 @ 10:00am Evaluate and Treat Hip Pain Diagnosis 1 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 pedfernando Referred Provider Samuel Chatman II Referred Address [address],[place],[address] Referred Provider Specialty Orthopaedic Surgery Referral Priority Routine Referral Appointment Date 2023-01-08 General Notes [facility] 023 10:20:34 AM >Received today and sent P2P [facility] 01/01/2023 12:05:35 PM >Patient was scheduled [facility] [facility] 01/15/2023 09:30:10 AM >Office notes not locked yet [facility] 01/16/2023 08:43:03 AM >Sent telephone encounter to referring physician to let them know that the consult letter is ready for their review Reason DECLINED lumbar an d knee pain Diagnosis 1 Lumbar pain (M54.50) Referral Organization [facility]ernardo Referring Provider First Name Toby Referring Provider Last Name Pat Referring Provider Specialty Family [facility] Referred Organization [facility] Referred Provider Paddy De Los Santos Referred Address [address] [place],[address] Referred Provider Specialty Rheumatology Referral Priority Routine [...] section and content) DATE CREATED AUTHOR 09/23/2019 [facility] DATE CREATED AUTHOR AUTHOR'S ORGANIZ ATION 11/04/2019 [facility] DATE CREATED AUTHOR AUTHOR'S ORGANIZ ATION 05/31/2020 [facility] DATE CREATED AUTHOR AUTHOR'S ORGANIZ ATION 12/06/2020 [facility] DATE CREATED AUTHOR AUTHOR'S ORGANIZ ATION 04/21/2021 [facility] DATE CREATED AUTHOR AUTHOR'S ORGANIZ ATION 12/10/2022 [employer] DATE CREATED AUTHOR AUTHOR'S ORGANIZ ATION 01/10/2023 [facility] DATE CREATED AUTHOR AUTHOR'S ORGANIZ ATION 01/17/2023 [facility] DATE CREATED AUTHOR AUTHOR'S ORGANIZ ATION 03/18/2023 [facility] DATE CREATED AUTHOR AUTHOR'S ORGANIZ ATION 06/09/2023 [facility] DATE CREATED AUTHOR AUTHOR'S ORGANIZ ATION 07/08/2024 [facility] [employer] Maintainer Teams (unrecognized sec tion and content) Team Status: Inactive Member Role Status Dates Toby Quintana MD Primary Care Provider Active Leeann Quintana Attending Provider Active Team Status: Active Member Role Status Dates Toby Quintana MD Primary Care Provider Active Team Status: Inactive Member Role Status Dates Toby Quintana MD Primary Care Provider Active Samuel Chatman II, MD Attending Provider Active Supervisor [employer] Relationship Specialty Start Date End Date Toby [...] BE BASED ON THE PRIMARY CLINICAL RECORDS. [facility]. provides no warranty or guarantee of the accuracy or completeness of information in this document.
[2024-09-09 13:06] VITALS: O2SAT 94
--- NOTE | 2024-09-09 13:10 | ED.GENADUL1 ---
HPI HPI - General Adult General Chief complaint: Extremity Injury, Lower Stated complaint: KNEE PAIN, FELL 2 DAYS AGO Time Seen by Provider: 09/09/24 12:30 Source: patient Mode of arrival: ambulance History of Present Illness HPI narrative: Patient is a 69-year-old female who returns to the emergency department for inability to ambulate and bilateral knee pain. Patient has a history of significant arthritis of the bilateral knees, she was admitted to this facility on Friday for intractable back and knee pain. She was discharged from the hospital on Friday and had a fall trying to enter her home after she was discharged, returning to the ER by EMS. It was strongly recommended to the patient that she be readmitted for rehab placement as she is not able to function at home. She declined the admission. She has an outpatient appointment next week with her orthopedic doctor and states she wanted to go home to make that appointment. Her had to struggle to get her into the home, she has not had any new falls or injuries. She states since they got her home 2 days ago, she has been laying in bed and has not been able to get up or function. states he is not able to care for the patient and they brought her back to the hospital for placement. 2 days ago she was found to have urinary tract infection in the ER, she was prescribed antibiotics, believes he has given her 1 pill. Related Data Home Medications ?Medication ?Instructions ?Recorded ?Confirmed alprazolam 1 mg tablet 1 mg PO BID PRN anxiety 05/16/23 09/07/24 atenolol 50 mg tablet 50 mg PO QPM 05/16/23 09/07/24 atenolol 25 mg tablet 50 mg PO QAM 09/06/24 09/07/24 pregabalin 50 mg capsule 50 mg PO Q8H 09/06/24 09/07/24 Previous Rx's ?Medication ?Instructions ?Recorded ciprofloxacin HCl 500 mg tablet 500 mg PO Q12H #14 tabs 09/07/24 naloxone 0.4 mg/mL injection 0.4 mg subcut Q3M PRN opioid 09/07/24 solution reversal #10 mL oxycodone-acetaminophen 5 mg-325 1 tab PO Q12H PRN Pain 7 days #14 09/07/24 mg tablet tabs Allergies Allergy/AdvReac Type Severity Reaction Status Date / Time Sulfa (Sulfonamide Allergy Intermediate Redness of Verified 10/31/24 12:31 Antibiotics) Skin Opioid HPI Opioid Management Most Recent Opioid Data: Last Pain Scale 8 09/09/24 12:32 09/09/24 Last Pain Assessment 09/07/24 13:24 Last ORT Total Score 1 09/06/24 13:46 09/06/24 Last ORT Risk Category Low Risk 09/06/24 13:46 09/06/24 Ur Phencyclidine Scrn Negative (NEGATIVE) 09/06/24 19:00 09/06/24 Review of Systems ROS Constitutional Denies: fever or chills Ears, nose, mouth, and throat Denies: throat pain or nasal congestion Respiratory Denies: shortness of breath Gastrointestinal Denies: nausea or vomiting Musculoskeletal Denies: back pain Integumentary/Breast Denies: rash Neurological Reports: weakness in extremities; Denies: numbness in extremities Psychiatric Denies: anxiety Hematologic/Lymphatic Denies: easy bruising or easy bleeding PFSH PFSH Medical History (Updated 09/09/24 @ 13:33 by SILVIO Crocker) Tachycardia ?R00.0 - Tachycardia, unspecified (ICD-10) Surgical History Previous back surgery ?Z98.890 - Other specified postprocedural states (ICD-10) History of cardiac radiofrequency ablation ?Z98.890 - Other specified postprocedural states (ICD-10) Social History Within the past year, how often did you have a drink containing alcohol: monthly or less Within the past year, how many standard drinks containing alcohol did you have on a typical day: 1 or 2 Within the past year, how often did you have six or more drinks on one occasion: never Total score: 0 Score interpretation: A score less than 3 is consistent with normal alcohol consumption. Smoking status: Never smoker Non-prescribed substance use: denies use Highest level of school completed/degree received: Associate degree: academic program Do you want help with school or training: No Are you now , , , , never or living with a partner: In a typical week, how many times do you talk on the telephone with family, friends, or neighbors: once per week How often do you get together with friends or relatives: once per week How often do you attend moravian or mormon services: never Do you belong to any clubs or organizations such as moravian groups unions, fraternal or athletic groups, or school groups: no Total score: 1 Score interpretation: A score of less than or equal to 1 indicates the most socially isolated. Little interest or pleasure in doing things: not at all Feeling down, depressed, or hopeless: not at all Feel stressed/tense/nervous/anxious/difficulty sleeping: very much Life stressors: other Life stressor details: Not being able to walk Due to disability, difficulty making decisions: No Exam Narrative Exam Narrative: Gen.: Awake, alert, in no distress Head: Normocephalic, atraumatic ENT: Moist mucous membranes Respiratory: No respiratory distress Extremities: Limited movement of the lower extremities, ecchymosis to the left anterior saxena as noted 2 days ago Psych: Normal mood and affect Neuro: No focal neuro deficit Skin: Warm, dry, intact Constitutional Vital Signs, click to edit/add: Last Vital Signs Temp 98.6 F 09/09/24 12:27 Pulse 76 09/09/24 12:27 Resp 20 09/09/24 12:27 BP 155/101 H 09/09/24 12:27 Pulse Ox 94 L 09/09/24 13:06 O2 Del Method Room Air 09/09/24 13:06 Course Vital Signs Vital signs: Vital Signs Temperature 98.6 F 09/09/24 12:27 Pulse Rate 76 09/09/24 12:27 Respiratory Rate 20 09/09/24 12:27 Blood Pressure 155/101 H 09/09/24 12:27 Pulse Oximetry 96 09/09/24 12:27 Oxygen Delivery Method Room Air 09/09/24 12:27 Temperature 98.6 F 09/09/24 12:27 Pulse Rate 76 09/09/24 12:27 Respiratory Rate 20 09/09/24 12:27 Blood Pressure 155/101 H 09/09/24 12:27 Pulse Oximetry 94 L 09/09/24 13:06 Oxygen Delivery Method Room Air 09/09/24 13:06 Medical Decision Making MDM Narrative Medical decision making narrative: Patient treated with Cipro and Percocet, she had labs, EKG and urine specimen obtained with imaging 2 days ago in this ER and she has not had any new falls or injuries. She continues to have chronic bilateral knee pain and difficulty functioning at home. I discussed the case with the hospitalist as well as geriatric social worker. Patient will be admitted for observation and hopefully rehab placement. Stable at time of admission. SUPERVISED APC VISIT, PHYSICIAN ATTESTATION: Based on the medical record the care appears appropriate. ? Medical Records Medical records reviewed: Yes I reviewed the patient's medical records Discharge Plan Discharge Chief Complaint: Extremity Injury, Lower Patient Disposition: Admitted as Observation Time of Disposition Decision: 13:32
--- NOTE | 2024-09-09 13:25 | SWNOTE1 ---
ELLY received a call from Lisbet in the ED. Pt was discharged a few days ago, fell getting in to the home, came back to the ED, went back home and laid in bed for 2 days. brought her in and voiced he can't care for her and they have agreed that pt does need rehab. Pt has [employer] Medicare for insurance and will be a precert. Pt will likely be admitted. ELLY to discuss rehab with patient.
--- NOTE | 2024-09-09 13:45 | SWNOTE1 ---
SW spoke to Dr. Jeffers as well and pt will be placed in observation and SW to work on getting pt to rehab.
--- NOTE | 2024-09-09 13:50 | PM.HP ---
HPI H&P: HPI History of Present Illness Chief complaint: KNEE PAIN, FELL 2 DAYS AGO/ BILATERAL KNEE PAIN Narrative: Patient is a 69 y.o white female with past medical history of Tachycardia, anxiety and chronic back and knee pain from severe OA. She reports she has been to see pain management, orthopedics and her PCP over her knee pain in the past. She has gained weight over the last 1-2 years. Corticosteroid injections have not helped her pain. She has also had ablations done on her back. She tries her best to remain pain free by being bed ridden and using 2 canes to get in her bathroom to toilet. She otherwise uses a rolling walker and knee pads. She rarely goes out of her house unless it's to Doctor's appointments as she can barely walk on her knees. Lyrica helps but sometimes the pain is so bad she develops nausea and vomiting. She has been on oxycodone before which helped at times. She was just admitted to this facility Friday and Friday this week. Her pain was controlled at the time of discharge. She returned that evening to the ER after falling trying to get into her house. She returned home but has been bed ridden. The ER also treated her for UTI. Her is not able to care for her or help her to get out of bed. She returned today for hospital admission and the hope to go to rehab facility. On admission exam she is having some left lower leg pain and bilateral knee pain. She is also complaining of constipation. Opioid HPI Opioid Management Most Recent Pain and Opioid Data: Last Pain Scale 9 09/09/24 15:07 09/09/24 Last Pain Assessment 09/09/24 15:52 Last ORT Total Score 4 09/09/24 15:01 09/09/24 Last ORT Risk Category Moderate Risk 09/09/24 15:01 09/09/24 Ur Phencyclidine Scrn Negative (NEGATIVE) 09/06/24 19:00 09/06/24 Review of Systems ROS Narrative ROS: a complete review of systems were reviewed with patient and are positive as below or listed in History of Chief Complaint. General: no fever, chills, night sweats Head: no headache, trauma, visual changes, nausea or vomiting Skin: no reported rashes, itching or sores Eyes: no blurriness of vision Ears: no reported hearing loss, vertigo, earache, or tinnitus Throat: no sore throat, hoarseness, swelling of neck, or tongue pain Heart: no chest pain Lungs: no shortness of breath or cough GI: no diarrhea or vomiting/nausea Urinary: no urinary urgency, frequency or pain Neuro: no numbness or tingling, just knee, leg and back pain HEM: bruising ENDO: no thyroid problems Psych: depression PFSH PFSH Medical History (Updated 09/09/24 @ 16:04 by Debbie Jeffers DO) History of skin cancer ?Z85.828 - Personal history of other malignant neoplasm of skin (ICD-10) Osteoarthritis ?M19.90 - Unspecified osteoarthritis, unspecified site (ICD-10) Tachycardia ?R00.0 - Tachycardia, unspecified (ICD-10) Surgical History (Updated 09/09/24 @ 14:41 by Marina Paez RN) Hx of cholecystectomy ?Z90.49 - Acquired absence of other specified parts of digestive tract (ICD-10) H/O: hysterectomy ?Z90.710 - Acquired absence of both cervix and uterus (ICD-10) H/O resection of rib ?Z98.890 - Other specified postprocedural states (ICD-10) Previous back surgery ?Z98.890 - Other specified postprocedural states (ICD-10) History of cardiac radiofrequency ablation ?Z98.890 - Other specified postprocedural states (ICD-10) Social History Within the past year, how often did you have a drink containing alcohol: monthly or less Within the past year, how many standard drinks containing alcohol did you have on a typical day: 1 or 2 Within the past year, how often did you have six or more drinks on one occasion: never Total score: 0 Score interpretation: A score less than 3 is consistent with normal alcohol consumption. Smoking status: Never smoker Non-prescribed substance use: denies use Highest level of school completed/degree received: Associate degree: academic program Do you want help with school or training: No Are you now , , , , never or living with a partner: In a typical week, how many times do you talk on the telephone with family, friends, or neighbors: once per week How often do you get together with friends or relatives: once per week How often do you attend congregational or sabianist services: never Do you belong to any clubs or organizations such as congregational groups unions, fraternal or athletic groups, or school groups: no Total score: 1 Score interpretation: A score of less than or equal to 1 indicates the most socially isolated. Little interest or pleasure in doing things: nearly every day Feeling down, depressed, or hopeless: nearly every day Feel stressed/tense/nervous/anxious/difficulty sleeping: very much Life stressors: other Life stressor details: Not being able to walk Due to disability, difficulty making decisions: No Meds Home Medications and Allergies Home Medications ?Medication ?Instructions ?Recorded ?Confirmed ?Type alprazolam 1 mg tablet 1 mg PO BID PRN anxiety 05/16/23 09/09/24 History atenolol 50 mg tablet 25 mg PO QPM 05/16/23 09/09/24 History atenolol 25 mg tablet 50 mg PO QAM 09/06/24 09/09/24 History pregabalin 50 mg capsule 50 mg PO Q8H 09/06/24 09/09/24 History ciprofloxacin HCl 500 mg tablet 500 mg PO Q12H #14 tabs 09/07/24 09/09/24 Rx naloxone 0.4 mg/mL injection 0.4 mg subcut Q3M PRN opioid 09/07/24 09/09/24 Rx solution reversal #10 mL oxycodone-acetaminophen 5 mg-325 1 tab PO Q12H PRN Pain 7 days #14 09/07/24 09/09/24 Rx mg tablet tabs Allergies Allergy/AdvReac Type Severity Reaction Status Date / Time Sulfa (Sulfonamide Allergy Intermediate Redness of Verified 09/09/24 12:31 Antibiotics) Skin Exam Narrative Exam Narrative: General: Patient is alert, and oriented to person, place and time with normal affect, morbid obesity Skin: ecchymosis with hematoma of the left saxena area Head: atraumatic, acephalic Eyes: PERRLA, no nystagmus present, conjunctiva clear, no scleral icterus Ears: normal gross auditory acuity Heart: Normal rate and rhythm, no murmurs/rubs/gallops Lungs: no audible wheezes, crackles and normal breath sounds all lung briones Abdomen: Normal audible bowel sounds, no distension, No palpable masses, no organomegaly, no rebound/guarding/ or rigidity Musculoskeletal: no swelling bilateral lower extremities, bony deformities noted on both knees with pain to palpation in the medial and lateral compartments, no posterior pain Neuro: CN II-X grossly intact Constitutional Vital Signs, click to edit/add: Last Vital Signs Temp 98.6 F 09/09/24 12:27 Pulse 76 09/09/24 12:27 Resp 20 09/09/24 12:27 BP 155/101 H 09/09/24 12:27 Pulse Ox 94 L 09/09/24 13:06 O2 Del Method Room Air 09/09/24 13:06 Assessment and Plan Assessment and Plan (1) Inability to walk: (2) Acute bilateral knee pain: (3) UTI (urinary tract infection): Qualifiers: Hematuria presence: without hematuria Urinary tract infection type: acute cystitis Qualified Code(s): N30.00 - Acute cystitis without hematuria (4) Contusion of right shoulder: Qualifiers: Encounter type: initial encounter Qualified Code(s): S40.011A - Contusion of right shoulder, initial encounter (5) Contusion of lower extremity: Qualifiers: Encounter type: initial encounter Laterality: unspecified laterality Qualified Code(s): S80.10XA - Contusion of unspecified lower leg, initial encounter (6) Fall: Qualifiers: Encounter type: initial encounter Qualified Code(s): W19.XXXA - Unspecified fall, initial encounter (7) Weakness: (8) Tachycardia: (9) Constipation by delayed colonic transit: Plan continue pain control with Percocet. Add miralax and docusate for bowels. Will start precert to rehab facility. check CBC, BMP. Will continue Cipro 500mg BID x 7 days. PT/OT evaluations. I have reviewed imaging from most recent ER visit. I do not think repeating any imaging is warranted. Lovenox for DVT prophylaxis Patient is a full code Patient is currently observation status; precert to rehab facility.
[2024-09-09 13:57] LABS: Basophils Absolute Auto 0.1 10^3/uL (0.0-0.1); Basophils Percent Auto 0.7 % (0.2-2.0); Eosinophils Absolute Auto 0.4 10^3/uL (0.0-0.7); Hematocrit 41.2 % (36.0-48.0); Hemoglobin 13.3 g/dL (12.0-16.0); Immature Granulocytes Abs Auto 0.04 10^3/uL (0.00-0.03); Immature Granulocytes Pct Auto 0.6 % (0.0-0.5); Lymphocytes Absolute Auto 1.3 10^3/uL (1.2-3.8); Lymphocytes Percent Auto 18.5 % (20.5-60.0); Mean Corpuscular HGB Conc 32.3 g/dL (29.9-35.2); Mean Corpuscular Hemoglobin 27.8 pg (26.7-34.0); Mean Corpuscular Volume 86.2 fL (81.0-99.0); Mean Platelet Volume 10.4 fL (9.5-13.5); Monocytes Absolute Auto 0.8 10^3/uL (0.3-0.8); Monocytes Percent Auto 11.2 % (1.7-12.0); Neutrophils Absolute Auto 4.4 10^3/uL (1.4-6.5); Platelet Count 172 10^3/uL (150-450); Red Blood Count 4.78 10^6/uL (4.20-5.40); Red Cell Distribution Width 13.4 % (11.0-15.0)
[2024-09-09 14:06] LABS: Anion Gap 10.3; BUN Creatinine Ratio 13.9; Calcium 9.2 mg/dL (8.5-10.1); Carbon Dioxide 31.5 mmol/L (21.0-32.0); Chloride 102 mmol/L (98-107); Estimated GFR (African America >60 (>=60 mL/min/1.73m^2); Estimated GFR (Non-African Ame >60 (>=60 mL/min/1.73m^2); Glucose 97 mg/dL (74-106); Magnesium 1.8 mg/dL (1.8-2.4); Potassium 3.8 mmol/L (3.5-5.1); Sodium 140 mmol/L (136-145)
--- NOTE | 2024-09-09 14:24 | SWNOTE1 ---
SW went down and spoke to pt and in room. Both pt and teary eyed. Pt's voiced it was his fault. SW assured him that it was not anyone's fault and now we can work on getting some help. SW spoke with them about pt going to rehab to get stronger and help manage the pain. Pt is in agreement and so is . ELLY provided them with a list from medicare.gov with star ratings. Pt would like [facility] as first choice and [facility] as second. SW to see if [facility] has beds open. SW let them know that SW will also notify [facility], they were coming today to do PT eval. SW did explain to pt and how the precert works with her insurance and rehab. ELLY also expressed the importance of pt working with therapy and participating. She voiced understanding. No further questions at this time. ELLY called and spoke to Mayra at [facility]. She advised SW to send referral and they will review. ELLY called over to outpt therapy and spoke to receptionist secretary. She voiced that PT will be back over, but OT had a full day but she will notify him that an order will be dropping and see if he has time. Pt is a precert.
--- NOTE | 2024-09-09 14:31 | SWNOTE1 ---
Referral sent to [facility]. Referral included face sheet, ED note, labs, vitals, case management report, and pt's dc summary from her previous stay.
--- OUTSIDE RECORDS SUMMARY | 2024-09-09 14:31 | XMS_ITS | CCD ---
Author Organization [facility] Care Team Providers Care Wood Sawyer Name Role Phone Toby Quintana Unavailable Unavailable Unavailable MD Toby Quintana Primary Care Provider BladesLeeann Attending Provider [phone] Unavailable Unavailable Blades, Leeann Unavailable KAN, DR [...] Unavailable QUINTANA, DR TOBY Schofield Admitting Unavailable STEWART, DR CAITLYN [employer] Unavailable QUINTANA, DR [...] Primary Care Unavailable Samuel Chatman II Unavailable [phone] EVIN BYERS Attending Toby Pham [...] Sulfamethoxazole; Translations: [sulfa] Drug Allergy Rash, Swelling [address] Work Phone: (10 sources) Sulfonamides (Antibiotic); Translations: [Sulfa (Sulfonamide Antibiotics)] Allergy to substance 04-08-20 19 Hives, Rash, Swelling [facility] (20 sources) Sulfacetamide / Sulfur Drug Allergy rash [facility] Other (1 source) Morphine Drug Allergy [facility] (1 source) Quinolones (Antibiotic) Drug allergy (disorder) [facility] (2 sources) Sulfonamides (Antibiotic) Drug allergy (disorder) 08-06-20 13 [facility] (12 sources) Acetaminophen / oxyCODONE Drug Allergy 07-28-20 13 Unknown [facility] Other (12 sources) Meperidine Drug Allergy 07-28-20 13 Unknown [facility] Other (13 sources) Quinolones Drug allergy 07-28-20 13 Comment:Fluorq rennolones [facility] Other (13 sources) sulfADIAZINE Drug Allergy Unknown [facility] Other (13 sources) Substance with sulfonamide structure and antibacterial mechanism of action (substance) Drug allergy 07-28-20 13 Unknown [facility] Other (13 sources) Statins Depletion *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 Propensity to adverse reactions 07-28-20 13 Unknown [facility] Other (4 sources) Allergies Reconciled Propensity to adverse reactions Unknown [facility] Other (4 sources) patient allergy list reviewed by nurse or physicia Propensity to adverse reactions 07-15-20 Comment:Done [facility] Other (1 source) Acetaminophen / oxyCODONE Drug Allergy 07-28-20 13 Unknown [facility] Other (1 source) Meperidine Drug Allergy 07-28-20 13 Unknown [facility] Other (5 sources) Sulfacetamide Drug Allergy 12-30-19 24 [facility] Medications Current Medications Medication Drug Class(es) Dates Sig (Normalized) Sig (Original) acetaminophen 325 mg / HYDROcodone bitartrate 5 mg oral tablet (20 sources) Opioid Agonist Start: 08-31-2021 End: 12-09-2023 take 1 tablet by mouth every four hours as needed HYDROcodone-acetami nophen ([place]) 5-325 mg tablet Take 1 tablet by [...] puffs Inhalation Twice a day Active omega 5-orx-hfv-fish oil 360 mg-108 mg- 180 mg-1,200 mg capsule (1 source) take 1 capsule by mouth once daily omega 6-hgw-ccg-fish oil 360 mg-108 mg- 180 mg-1,200 mg [...] Sep, Active [facility] oxyCODONE [...] 09-12-2014 Episodic Other aftercare (1 source) Other assisted (current) drug therapy; Translations: [OTH HUMAN INSIGHTS LEAD ADS MARKETING CURRENT DRUG THERAPY] Onset: 07-23-2022 Episodic Other [...] aPTT Coag (PPP) [Time] 23.5 s 22.3-36.2 [facility] Basophils Auto (Bld) [#/Vol] on 01-14-2024 Basophils (Bld) [#/Vol] 0.1 10 3/uL 0.0-0.1 [facility] Basophils/100 WBC Auto (Bld) on 01-14-2024 Basophils/100 WBC (Bld) 0.5 % 0.2-2.0 [facility] Eosinophils/100 WBC Auto (Bl d)on 01-14-2024 Eosinophils/100 WBC (Bld) 1.3 % 0.9-7.0 [facility] Erythrocyte distribution wid th Auto (RBC) [Ratio]on 01-14-2024 Erythrocyte distribution width (RBC) [Ratio] 13.6 % 11.0-15.0 [facility] Estimated glomerular filtrat ion rate (GFR) non- Americanon 01-14-2024 GFR/1.73 sq M.predicted among non-blacks MDRD (S/P/Bld) [Vol rate/Area] mL/min/{1.73_m2} >=60 [facility] Fibrin D-dimer [Presence] in Platelet poor plasma by Latex agglutinationon 01-14-2024 Fibrin D-dimer LA Ql (PPP) 0.78 mg/L FEU <=0.59 [facility] Comment on above: RESULTS CALLED TO [...] on 01-14-2024 Globulin (S) [Mass/Vol] 3.9 g/dL [facility] Hematocrit Auto (Bld) [Volum e fraction]on 01-14-2024 Hematocrit (Bld) [Volume fraction] 44.4 % 36.0-48.0 [facility] Hemoglobin [Mass/volume] in Bloodon 01-14-2024 Hemoglobin (Bld) [Mass/Vol] 14.1 g/dL 12.0-16.0 [facility] INR in Platelet poor plasma by Coagulation assayon 01-14-2024 INR Coag (PPP) [Relative time] {INR} [facility] Comment on above: DESIRED INR:2.0-3.0 CONDITIONS NOT LISTED BELOW2.5-3.5 FOR PROSTHETIC HEART VALVE REPLACEMENT2.5-3.5 RECURRENT THROMBOSIS Laboratory - Chemistry and C hemistry - challengeon 01-14-2024 Albumin [Mass/Vol] 2.9 g/dL 3.4-5.0 [facility] ALP [Catalytic activity/Vol] 126 U/L 46-116 [facility] ALT [Catalytic activity/Vol] 36 U/L 14-59 [facility] AST [Catalytic activity/Vol] 24 U/L 15-37 [facility] Bilirubin [Mass/Vol] 0.4 mg/dL 0.2-1.0 [facility] Calcium [Mass/Vol] 8.7 mg/dL 8.5-10.1 [facility] Chloride [Moles/Vol] 109 mmol/L 98-107 [facility] CO2 [Moles/Vol] 30.5 mmol/L 21.0-32.0 [facility] Creatinine [Mass/Vol] 0.77 mg/dL 0.55-1.02 [facility] GFR/1.73 sq M.predicted MDRD (S/P/Bld) [Vol rate/Area] mL/min/{1.73_m2} >=60 [facility] Glucose [Mass/Vol] 108 mg/dL 74-106 [facility] Natriuretic peptide B (Bld) [Mass/Vol] 210.0 pg/mL <=900.0 [facility] Potassium [Moles/Vol] 4.0 mmol/L 3.5-5.1 [facility] Protein [Mass/Vol] 6.8 g/dL 6.4-8.2 [facility] Sodium [Moles/Vol] 141 mmol/L 136-145 [facility] Urea nitrogen [Mass/Vol] 10.0 mg/dL 7.0-18.0 [facility] Urea nitrogen/Creatinine [Mass ratio] 13.0 mg/mg [facility] Laboratory - Hematology and Cell countson 01-14-2024 Immature granulocytes/100 WBC (Bld) 0.3 % 0.0-0.5 [facility] Laboratory - Microbiology an d Antimicrobial susceptibilityon 01-14-2024 SARS-CoV-2 (COVID-19) RNA DAVID+probe Ql (Unsp spec) Negative NEGATIVE [facility] Comment on above: This test has [...] Auto (Bld) [#/Vol] 9.2 10 3/uL 4.0-11.0 [facility] Lymphocytes Auto (Bld) [#/Vo l]on 01-14-2024 Lymphocytes (Bld) [#/Vol] 1.9 10 3/uL 1.2-3.8 [facility] Lymphocytes/100 WBC Auto (Bl d)on 01-14-2024 Lymphocytes/100 WBC (Bld) 20.3 % 20.5-60.0 [facility] MCH Auto (RBC) [Entitic mass ]on 01-14-2024 MCH (RBC) [Entitic mass] 28.4 pg 26.7-34.0 [facility] MCHC Auto (RBC) [Mass/Vol]on 01-14-2024 MCHC (RBC) [Mass/Vol] 31.8 g/dL 29.9-35.2 [facility] MCV Auto (RBC) [Entitic vol] on 01-14-2024 MCV (RBC) [Entitic vol] 89.5 fL 81.0-99.0 [facility] Monocytes Auto (Bld) [#/Vol] on 01-14-2024 Monocytes (Bld) [#/Vol] 0.8 10 3/uL 0.3-0.8 [facility] Monocytes/100 WBC Auto (Bld) on 01-14-2024 Monocytes/100 WBC (Bld) 8.5 % 1.7-12.0 [facility] Neutrophils Auto (Bld) [#/Vo l]on 01-14-2024 Neutrophils (Bld) [#/Vol] 6.3 10 3/uL 1.4-6.5 [facility] Neutrophils/100 WBC Auto (Bl d)on 01-14-2024 Neutrophils/100 WBC (Bld) 69.1 % 43.0-75.0 [facility] No Panel Informationon 01-13 Troponin I High Sensitivity 6.8 pg/mL 4.0-51.3 [facility] Comment on above: CUT-OFF POINTS HAVE [...] INFORMATION. Bedside Influenza Type A Antigen Negative [facility] Comment on above: Negative for Flu A p rotein antigen. Infection due to Flu Acannot be ruled out. Flu A antigen in the sample may bebelow the detection limit of the test. Bedside Influenza Type B Antigen Negative [facility] Comment on above: Negative for Flu B p rotein antigen. Infection due to Flu Bcannot be ruled out. Flu B antigen in the sample may bebelow the detection limit of the test. Eosinophils # (Auto) 0.1 10 3/uL 0.0-0.7 [facility] Immature Granulocyte # (Auto) 0.03 10 3/uL 0.00-0.03 [facility] Platelet mean volume Auto (B ld) [Entitic vol]on 01-14-2024 Platelet mean volume (Bld) [Entitic vol] 9.4 fL 9.5-13.5 [facility] Platelets Auto (Bld) [#/Vol] on 01-14-2024 Platelets (Bld) [#/Vol] 238 10 3/uL 150-450 [facility] Prothrombin time (PT)on PT Coag (PPP) [Time] 9.3 s 9.0-11.6 [facility] RBC Auto (Bld) [#/Vol]on RBC (Bld) [#/Vol] 4.96 10 6/uL 4.20-5.40 [facility] Serum or plasma albumin/glob ulin mass ratioon 01-14-2024 Albumin/Globulin [Mass ratio] 0.7 {ratio} [facility] Serum or plasma anion gap de terminationon 01-14-2024 Anion gap [Moles/Vol] 5.5 mmol/L [facility] Basophils Auto (Bld) [#/Vol] on 12-30-2023 Basophils (Bld) [#/Vol] 0.1 10 3/uL 0.0-0.1 [facility] Basophils/100 WBC Auto (Bld) on 12-30-2023 Basophils/100 WBC (Bld) 0.6 % 0.2-2.0 [facility] Cholesterol in LDL Calc [Mas s/Vol]on 12-30-2023 Cholesterol in LDL [Mass/Vol] 149.0 mg/dL [facility] Comment on above: <100 mg/dl [id number] 0-129 mg/dl NEAR OR ABOVE [id number] mg/dl BORDERLINE [id number] mg/dl HIGH>190 mg/dl VERY HIGH Cholesterol in VLDL Calc [Ma ss/Vol]on 12-30-2023 Cholesterol in VLDL [Mass/Vol] 18.6 mg/dL [facility] Eosinophils/100 WBC Auto (Bl d)on 12-30-2023 Eosinophils/100 WBC (Bld) 1.8 % 0.9-7.0 [facility] Erythrocyte distribution wid th Auto (RBC) [Ratio]on 12-30-2023 Erythrocyte distribution width (RBC) [Ratio] 13.2 % 11.0-15.0 [facility] Estimated glomerular filtrat ion rate (GFR) non- Americanon 12-30-2023 GFR/1.73 sq M.predicted among non-blacks MDRD (S/P/Bld) [Vol rate/Area] mL/min/{1.73_m2} >=60 [facility] Globulin Calc (S) [Mass/Vol] on 12-30-2023 Globulin (S) [Mass/Vol] 3.8 g/dL [facility] Hematocrit Auto (Bld) [Volum e fraction]on 12-30-2023 Hematocrit (Bld) [Volume fraction] 46.8 % 36.0-48.0 [facility] Hemoglobin [Mass/volume] in Bloodon 12-30-2023 Hemoglobin (Bld) [Mass/Vol] 14.7 g/dL 12.0-16.0 [facility] Laboratory - Chemistry and C hemistry - challengeon 12-30-2023 Albumin [Mass/Vol] 3.0 g/dL 3.4-5.0 [facility] ALP [Catalytic activity/Vol] 88 U/L 46-116 [facility] ALT [Catalytic activity/Vol] 23 U/L 14-59 [facility] AST [Catalytic activity/Vol] 20 U/L 15-37 [facility] Bilirubin [Mass/Vol] 0.5 mg/dL 0.2-1.0 [facility] Calcium [Mass/Vol] 9.2 mg/dL 8.5-10.1 [facility] Chloride [Moles/Vol] 107 mmol/L 98-107 [facility] Cholesterol [Mass/Vol] 224 mg/dL <=200 [facility] Cholesterol in HDL [Mass/Vol] 57 mg/dL 40-60 [facility] Comment on above: > or =60 mg/dl - LOW CARDIOVASCULAR RISK<40 mg/dl - HIGH CARDIOVASCULAR RISK CO2 [Moles/Vol] 31.1 mmol/L 21.0-32.0 [facility] Creatinine [Mass/Vol] 0.72 mg/dL 0.55-1.02 [facility] GFR/1.73 sq M.predicted MDRD (S/P/Bld) [Vol rate/Area] mL/min/{1.73_m2} >=60 [facility] Glucose [Mass/Vol] 100 mg/dL 74-106 [facility] Potassium [Moles/Vol] 4.5 mmol/L 3.5-5.1 [facility] Protein [Mass/Vol] 6.8 g/dL 6.4-8.2 [facility] Sodium [Moles/Vol] 145 mmol/L 136-145 [facility] Triglyceride [Mass/Vol] 93 mg/dL <=150 [facility] TSH Qn 2.655 m[IU]/L 0.358-3.740 [facility] Urea nitrogen [Mass/Vol] 9.0 mg/dL 7.0-18.0 [facility] Urea nitrogen/Creatinine [Mass ratio] 12.5 mg/mg [facility] Laboratory - Hematology and Cell countson 12-30-2023 Immature granulocytes/100 WBC (Bld) 0.2 % 0.0-0.5 [facility] Leukocytes [#/volume] correc wanda for nucleated erythrocytes in Blood by Automated counon 12-30-2023 WBC corrected for nucl RBC Auto (Bld) [#/Vol] 8.7 10 3/uL 4.0-11.0 [facility] Lymphocytes Auto (Bld) [#/Vo l]on 12-30-2023 Lymphocytes (Bld) [#/Vol] 1.8 10 3/uL 1.2-3.8 [facility] Lymphocytes/100 WBC Auto (Bl d)on 12-30-2023 Lymphocytes/100 WBC (Bld) 20.4 % 20.5-60.0 [facility] MCH Auto (RBC) [Entitic mass ]on 12-30-2023 MCH (RBC) [Entitic mass] 28.6 pg 26.7-34.0 [facility] MCHC Auto (RBC) [Mass/Vol]on 12-30-2023 MCHC (RBC) [Mass/Vol] 31.4 g/dL 29.9-35.2 [facility] MCV Auto (RBC) [Entitic vol] on 12-30-2023 MCV (RBC) [Entitic vol] 91.1 fL 81.0-99.0 [facility] Monocytes Auto (Bld) [#/Vol] on 12-30-2023 Monocytes (Bld) [#/Vol] 0.7 10 3/uL 0.3-0.8 [facility] Monocytes/100 WBC Auto (Bld) on 12-30-2023 Monocytes/100 WBC (Bld) 7.5 % 1.7-12.0 [facility] Neutrophils Auto (Bld) [#/Vo l]on 12-30-2023 Neutrophils (Bld) [#/Vol] 6.0 10 3/uL 1.4-6.5 [facility] Neutrophils/100 WBC Auto (Bl d)on 12-30-2023 Neutrophils/100 WBC (Bld) 69.5 % 43.0-75.0 [facility] No Panel Informationon 12-30 Eosinophils # (Auto) 0.2 10 3/uL 0.0-0.7 [facility] Immature Granulocyte # (Auto) 0.02 10 3/uL 0.00-0.03 [facility] Platelet mean volume Auto (B ld) [Entitic vol]on 12-30-2023 Platelet mean volume (Bld) [Entitic vol] 9.3 fL 9.5-13.5 [facility] Platelets Auto (Bld) [#/Vol] on 12-30-2023 Platelets (Bld) [#/Vol] 199 10 3/uL 150-450 [facility] RBC Auto (Bld) [#/Vol]on RBC (Bld) [#/Vol] 5.14 10 6/uL 4.20-5.40 [facility] Serum or plasma albumin/glob ulin mass ratioon 12-30-2023 Albumin/Globulin [Mass ratio] 0.8 {ratio} [facility] Serum or plasma anion gap de terminationon 12-30-2023 Anion gap [Moles/Vol] 11.4 mmol/L [facility] Serum or plasma total choles terol/high density lipoprotein (HDL) cholesterol mass la 12-30-2023 Cholesterol.total/Ch olesterol in HDL [Mass ratio] 3.9 {ratio} [facility] Comment on above: 3.3 - 4.4 LOW RISK4. 4 - 7.1 AVERAGE RISK7.1 - 11.0 MODERATE RISK>11.0 HIGH RISK XR hip LT min 2V(w/wo pelvis )*on 01-08-2023 XR hip LT min 2V(w/wo pelvis)* [facility] Main [address] [address] XRay Report Signed Patient: Adriana Dinero I MR#: [id number] [id number] : 1955 Acct:[id number] Age/Sex: 67 / F ADM Date: 01/08/23 [...] Pop Jr., D.O.01/08/2023 1:22 PM Dictation Location: [place] [address] Transcribed By: [facility] 01/08/23 1322 Dictated By: Montana Pop Jr, DO 01/08/23 1321 Signed By: 01/08/23 1322 Normal [facility] XR hip LT min 2V(w/wo pelvis)* [facility] Other XR hip LT min 2V(w/wo pelvis)* [facility] Main [facility] Other XR hip LT min 2V(w/wo pelvis)* [address] [place] [address] [employer] Other XR hip LT min 2V(w/wo pelvis)* [place] [address] [employer] Other XR hip LT min 2V(w/wo pelvis)* XRay Report [facility] Other XR hip LT min 2V(w/wo pelvis)* Signed [facility] Other XR hip LT min 2V(w/wo pelvis)* Patient: Adriana Dinero I MR#: [id number] [facility] [employer] Other XR hip LT min 2V(w/wo pelvis)* 056 [facility] Other XR hip LT min 2V(w/wo pelvis)* : 1955 Acct:[id number] [facility] Other XR hip LT min 2V(w/wo pelvis)* Age/Sex: 67 / F ADM Date: 01/08/23 [facility] Other XR hip LT min 2V(w/wo pelvis)* Loc: [facility] Room: Type: [facility] Other XR hip LT min 2V(w/wo pelvis)* Attending Dr: Samuel Chatman II, MD [facility] Other XR hip LT min 2V(w/wo pelvis)* Copies to: Samuel Chatman MD [facility] Other XR hip LT min 2V(w/wo pelvis)* Ordering Provider: Samuel Chatman MD [facility] Other XR hip LT min 2V(w/wo pelvis)* Date of Service: 01/08/23 [facility] Other XR hip LT min 2V(w/wo pelvis)* XR/XR hip LT min 2V(w/wo pelvis)*: Left hip pain [facility] Other XR hip LT min 2V(w/wo pelvis)* LEFT HIP - 2 views: [facility] Other XR hip LT min 2V(w/wo pelvis)* CLINICAL HISTORY: Left hip pain for months. [facility] Other XR hip LT min 2V(w/wo pelvis)* COMPARISON: Hip series 11/22/2022 [facility] Other XR hip LT min 2V(w/wo pelvis)* FINDINGS: Mild degenerative changes of both hips without acute bony process. [facility] Other XR hip LT min 2V(w/wo pelvis)* XR/XR hip LT min 2V(w/wo pelvis)* [facility] Other XR hip LT min 2V(w/wo pelvis)* IMPRESSION: [facility] Other XR hip LT min 2V(w/wo pelvis)* MILD DEGENERATIVE CHANGES OF BOTH HIPS WITHOUT ACUTE BONY PROCESS.. [facility] Other XR hip LT min 2V(w/wo pelvis)* Impression dictated by: Montana Pop Jr., D.OOdesas01/08/2023 1:22 PM [facility] Other XR hip LT min 2V(w/wo pelvis)* Dictation Location: [place] [address] [facility] Other XR hip LT min 2V(w/wo pelvis)* Transcribed By: VALERIE 01/08/23 [facility] Other XR hip LT min 2V(w/wo pelvis)* Dictated By: Montana Pop Jr, DO 01/08/23 [facility] Other XR hip LT min 2V(w/wo pelvis)* Signed By: [facility] Other XR hip LT min 2V(w/wo pelvis)* 01/08/23 [facility] Other Office Visit (Cardiology)on 12-09-2022 Follow-up visit [...] Former smoker Tobacco Use Screening; Status:Complete; Done: [id number] Patient Instructions Please bring all medicines, vitamins, [...] and provided the 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 ASSESSMENT AND PLAN: 1. Supraventricular [...] follow-up will be scheduled Iban Lu MD, [facility] Surgical History Problems History of Back [...] Recorded: 09Dec2022 01:25PM Heart Rate78, L Radial Bkeerdnz126, LUE, Sitting Dzirkmbib84, LUE, Sitting Height5 ft 6 in Vrsuhp872 lb BMI Chrmpranob27.03 kg/m2 BSA Calculated2.19 Tobacco Useb) No PHQ-2 [...] Dec 09 2022 2:09PM EST (Author) [facility] Screening.on 023 Fall risk assessment b) One or more fall s in the last year -[facility] 250 DO Work Phone: Tobacco use status [facility] b) No [facility] 250 DO Work Phone: Tobacco Screening. Yes MP-Nor [facility] 250 DO Work Phone: XR hip BI w [id number] 11-22-19 XR hip BI w PEL1V [facility] Main [address] [address] XRay Report Signed Patient: Adriana Dinero I MR#: [id number] 056 : 1955 Acct:[id number] Age/Sex: 67 / F ADM Date: 11/22/22 [...] Pop Jr., D.O.11/22/2022 1:12 PM Dictation Location: [place] [address] Transcribed By: [facility] 11/22/22 1312 Dictated By: Montana Pop Jr, DO 11/22/22 1311 Signed By: 11/22/22 1312 Normal [facility] XR lumbar spine AP/LAT/FLX/E XTon 11-22-2022 XR lumbar spine AP/LAT/FLX/EXT [address] [address] XRay Report Signed Patient: Adriana Dinero I MR#: [id number] 056 : 1955 Acct:[id number] Age/Sex: 67 / F ADM Date: 11/22/22 [...] Pop Jr., D.O.11/22/2022 1:11 PM Dictation Location: [place] [address] Transcribed By: [facility] 11/22/22 1311 Dictated By: Montana Pop Jr, DO 11/22/22 1309 Signed By: 11/22/22 1311 Normal [facility] CREATININEon 10-04-2022 Creatinine [Mass/Vol] 0.75 mg/dL Normal 0.55-1.[address] [facility] Comment on above: Performed By: #### C CARLOS #### [facility] [address] [place] [address] [address] Henrietta Zavala EGFR-AF NIGERIAN >60 Normal >=60 [facility] Comment on above: Performed By: #### C CARLOS #### [facility] [address] [place] [address] [address] Henrietta Zavala EGFR-NON AF NIGERIAN >60 Normal >=[address] [facility] Comment on above: Performed By: #### C CARLOS #### [facility] [address] [place] [address] Dr. Henrietta Zavala MRI LSPINE WO W [...] OMER Date: 2022-10-04 11:19 Normal [facility] Covid-19 PCR (CVDTB)on 07-11 SARS-CoV-2 (COVID-19) RNA DAVID+probe Ql (Unsp spec) Not detected Normal NOT DETECTED [facility] Comment on above: Result Comment: This test is not yet approved or cleared by the [place] FDA. When there are no FDA-approved or cleared tests available, and other criteria are met, FDA can make tests available under an emergency access mechanism called an Emergency Use Authorization (EUA). The EUA for this test is supported by the [place] of Health and Human Service's (HHS's) declaration [...] consistent with SARS-CoV-2. Performed By: #### C [facility] #### [facility] [address] [place] [address] Dr. Henrietta Zavala XR HIPS JI 3_4V [...] CABRERA Date: 2022-04-15 07:00 Normal [facility] XR TSPINE 3 VIEWSon 04-15-20 22 [...] CABRERA Date: 2022-04-15 07:03 Normal [facility] CBC AUTO DIFFon 04-12-2022 BASO # 0.1 103/ul Normal 0.0-0.[address] [facility] Comment on above: Performed By: #### C BC #### [facility] [address] [place] [address] Dr. Henrietta Zavala Basophils/100 WBC (Bld) 0.4 % Normal 0.2-2.[address] [facility] Comment on above: Performed By: #### C BC #### [facility] [address] [place] [address] Dr. Henrietta Zavala EO # 0.1 103/ul Normal 0.0-0.[address] [facility] Comment on above: Performed By: #### C BC #### [facility] [address] [place] [address] Dr. Henrietta Zavala Eosinophils/100 WBC (Bld) 0.4 % Critically low 0.9-7.[address] [facility] Comment on above: Performed By: #### C BC #### [facility] [address] [place] [address] Dr. Henrietta Zavala Erythrocyte distribution width (RBC) [Ratio] 14.1 % Normal 11.0-15.[address] [facility] Comment on above: Performed By: #### C BC #### [facility] [address] [place] [address] Dr. Henrietta Zavala Hematocrit (Bld) [Volume fraction] 44.9 % Normal 36.0-48.[address] [facility] Comment on above: Performed By: #### C BC #### [facility] [address] [place] [address] Dr. Henrietta Zavala Hemoglobin (Bld) [Mass/Vol] 14.2 g/dL Normal 12.0-16.[address] [facility] Comment on above: Performed By: #### C BC #### [facility] [address] [place] [address] Dr. Henrietta Zavala IG # 0.06 10e3/ul Critically high 0.00-0.03 [facility] Comment on above: Performed By: #### C BC #### [facility] [address] [place] [address] Dr. Henrietta Zavala IG % 0.5 % Normal 0.0-0.[address] [facility] Comment on above: Performed By: #### C BC #### [facility] [address] [place] [address] [address] Henrietta Zavala LYMPH # 2.2 103/ul Normal 1.2-3.8 [facility] Comment on above: Performed By: #### C BC #### [facility] [address] [place] [address] [address] Henrietta Zavala Lymphocytes/100 WBC (Bld) 19.4 % Critically low 20.5-60.0 [facility] Comment on above: Performed By: #### C BC #### [facility] [address] [place] [address] [address] Henrietta Zavala MANUAL DIFF REQ NO Normal [facility] Comment on above: Performed By: #### C BC #### [facility] [address] [place] [address] Dr. Henrietta Zavala MCH (RBC) [Entitic mass] 27.5 pg Normal 26.7-34.0 [facility] Comment on above: Performed By: #### C BC #### [facility] [address] [place] [address] Dr. Henrietta Zavala MCHC (RBC) [Mass/Vol] 31.6 g/dL Normal 29.9-35.2 [facility] Comment on above: Performed By: #### C BC #### [facility] [address] [place] [address] Dr. Henrietta Zavala MCV (RBC) [Entitic vol] 86.8 fL Normal 81.0-99.0 [facility] Comment on above: Performed By: #### C BC #### [facility] [address] [place] [address] Dr. Henrietta Zavala MONO # 0.9 103/ul Critically high 0.3-0.8 [facility] Comment on above: Performed By: #### C BC #### [facility] [address] [place] [address] Dr. Henrietta Zavala Monocytes/100 WBC (Bld) 7.9 % Normal 1.7-12.0 [facility] Comment on above: Performed By: #### C BC #### [facility] Laboratory [id number] Henrietta Zavala NEUT # 8.1 103/ul Critically high 1.4-6.5 [facility] Comment on above: Performed By: #### C BC #### [facility] Laboratory [id number] Henrietta Zavala Neutrophils/100 WBC (Bld) 71.4 % Normal 43.0-75.[address] [facility] Comment on above: Performed By: #### C BC #### [facility] Laboratory [address] [address] [address] Henrietta Zavala Platelet mean volume (Bld) [Entitic vol] 9.7 fL Normal 9.5-13.5 [facility] Comment on above: Performed By: #### C BC #### [facility] Laboratory [address] [address] [address] Henrietta Zavala PLT 284 103/ul Normal 150-450 [facility] Comment on above: Performed By: #### C BC #### [facility] Laboratory [address] [address] [address] Henrietta Zavala RBC 5.17 106/ul Normal 4.20-5.40 [facility] Comment on above: Performed By: #### C BC #### [facility] Laboratory [address] [address] [address] Henrietta Zavala WBC 11.3 103/ul Critically high 4.0-11.0 [facility] Comment on above: Performed By: #### C BC #### [facility] Laboratory [address] [address] [address] Henrietta Zavala LIPID PROFILEon 04-12-2022 CHOL-HDL RATIO NORM SEE BELOW Normal [facility] Comment on above: Result Comment: 3.3 - 4.4 LOW RISK 4.4 - 7.1 AVERAGE RISK 7.1 - 11.0 MODERATE RISK >11.0 HIGH RISK Performed By: #### C MP, LIPID #### [facility] Laboratory [address] [address] [address] Henrietta Zavala Cholesterol [Mass/Vol] 235 mg/dL Critically high <=[address] [facility] Comment on above: Performed By: #### C MP, LIPID #### [facility] Laboratory [address] [address] [address] Henrietta Zavala Cholesterol in HDL [Mass/Vol] 47 mg/dL Normal 40-[address] [facility] Comment on above: Performed By: #### C MP, LIPID #### [facility] Laboratory [address] [address] [address] Henrietta Zavala Cholesterol in LDL [Mass/Vol] 160.8 mg/dL Normal [facility] Comment on above: Performed By: #### C MP, LIPID #### [facility] Laboratory [address] [address] [address] Henrietta Zavala Cholesterol.total/Ch olesterol in HDL [Mass ratio] 5.0 {ratio} Normal [facility] Comment on above: Performed By: #### C MP, LIPID #### [facility] Laboratory [address] [place] [address] Dr. Henrietta Zavala HDL NORMAL > or = 60 mg/dl - LO W CARDIOVASCULAR RISK <40 mg/dl - HIGH CARDIOVASCULAR RISK Normal [facility] Comment on above: Performed By: #### C MP, LIPID #### [facility] Laboratory [address] [place] [address] Dr. Henrietta Zavala LDL CALC NORMAL SEE BELOW Normal [facility] Comment on above: Result Comment: <100 mg/dl OPTIMAL 100 - 129 mg/dl NEAR OR ABOVE OPTIMAL 130 - 159 mg/dl BORDERLINE HIGH 160 - 189 mg/dl HIGH >190 mg/dl VERY HIGH Performed By: #### C MP, LIPID #### [facility] Laboratory [address] [place] [address] Dr. Henrietta Zavala Triglyceride [Mass/Vol] 136 mg/dL Normal <=150 [facility] Comment on above: Performed By: #### C MP, LIPID #### [facility] Laboratory [address] [place] [address] Dr. Henrietta Zavala VLDL CALC 27.2 mg/dL Normal [facility] Comment on above: Performed By: #### C MP, LIPID #### [facility] Laboratory [address] [place] [address] Dr. Henrietta Zavala PROF 14(COMP METB)on 022 Albumin [Mass/Vol] 3.2 g/dL Critically low 3.4-5.0 [facility] Comment on above: Performed By: #### C MP, LIPID #### [facility] [address] [address] [address] Henrietta Zavala Albumin/Globulin [Mass ratio] 0.8 {ratio} Normal [facility] Comment on above: Performed By: #### C MP, LIPID #### [facility] [address] [address] [address] Henrietta Zavala ALP [Catalytic activity/Vol] 127 U/L Critically high 46-[address] [facility] Comment on above: Performed By: #### C MP, LIPID #### [facility] [address] [place] [address] Dr. Henrietta Zavala ALT [Catalytic activity/Vol] 55 U/L Normal 14-[address] [facility] Comment on above: Performed By: #### C MP, LIPID #### [facility] [address] [address] [address] Henrietta Zavala Anion gap [Moles/Vol] 13.6 mmol/L Normal [facility] Comment on above: Performed By: #### C MP, LIPID #### [facility] [address] [place] [address] Dr. Henrietta Zavala AST [Catalytic activity/Vol] 24 U/L Normal 15-[address] [facility] Comment on above: Performed By: #### C MP, LIPID #### [facility] [address] [address] [address] Henrietta Zavala Bilirubin [Mass/Vol] 0.3 mg/dL Normal 0.2-1.[address] [facility] Comment on above: Performed By: #### C MP, LIPID #### [facility] [address] [address] [address] Henrietta Zavala Calcium [Mass/Vol] 8.8 mg/dL Normal 8.5-10.1 [facility] Comment on above: Performed By: #### C MP, LIPID #### [facility] [address] [address] [address] Henrietta Zavala Chloride [Moles/Vol] 107 mmol/L Normal 98-[address] [facility] Comment on above: Performed By: #### C MP, LIPID #### [facility] Laboratory [address] [place] [address] Dr. Henrietta Zavala CO2 [Moles/Vol] 25.6 mmol/L Normal 21.0-32.0 [facility] Comment on above: Performed By: #### C MP, LIPID #### [facility] [address] [place] [address] Dr. Henrietta Zavala Creatinine [Mass/Vol] 0.77 mg/dL Normal 0.55-1.02 [facility] Comment on above: Performed By: #### C MP, LIPID #### [facility] [address] [place] [address] Dr. Henrietta Zavala EGFR-AF NIGERIAN >60 Normal >=60 [facility] Comment on above: Performed By: #### C MP, LIPID #### [facility] [address] [place] [address] Dr. Henrietta Zavala EGFR-NON AF NIGERIAN >60 Normal >=[address] [facility] Comment on above: Performed By: #### C MP, LIPID #### [facility] [address] [place] [address] Dr. Henrietta Zavala Globulin (S) [Mass/Vol] 3.8 g/dL Normal [facility] Comment on above: Performed By: #### C MP, LIPID #### [facility] [address] [address] [address] Henrietta Zavala Glucose [Mass/Vol] 90 mg/dL Normal 74-106 [facility] Comment on above: Performed By: #### C MP, LIPID #### [facility] Laboratory [address] [place] [address] Dr. Henrietta Zavala Potassium [Moles/Vol] 4.2 mmol/L Normal 3.5-5.[address] [facility] Comment on above: Performed By: #### C MP, LIPID #### [facility] [address] [place] [address] Dr. Henrietta Zavala Protein [Mass/Vol] 7.0 g/dL Normal 6.4-8.2 [facility] Comment on above: Performed By: #### C MP, LIPID #### [facility] [address] [address] [address] Henrietta Zavala Sodium [Moles/Vol] 142 mmol/L Normal 136-145 [facility] Comment on above: Performed By: #### C MP, LIPID #### [facility] [address] [address] [address] Henrietta Zavala Urea nitrogen [Mass/Vol] 13.0 mg/dL Normal 7.0-18.[address] [facility] Comment on above: Performed By: #### C MP, LIPID #### [facility] [address] [address] [address] Henrietta Zavala Urea nitrogen/Creatinine [Mass ratio] 16.9 mg/mg Normal [facility] Comment on above: Performed By: #### C MP, LIPID #### [facility] [address] [place] [address] Dr. Henrietta Zavala Tobacco Screening.on 021 Fall risk assessment a) No falls within the last year [facility] DO Work Phone: Tobacco use status CPHS b) No [facility] DO Work Phone: KNEE LEFT 3 [facility] 03-30-2021 KNEE LEFT 3 S [facility] Department of Radiology [address] [place] [phone] ======== Patient Name: ADRIANA RAYGOZA : 1955 Sex: F Age: Race: White Pt. Location: Patient Status: Ordered Date: 03/30/2021 9:00:00 AM Completed Date: 03/30/2021 09:07 AM Requesting Provider: RAMANDEEP PATEL Attending Provider: Report Copy To: Signs & Symptoms: M25.562 Pain in left knee I10 History: Deb Comments: , , , Ordering Provider - RAMANDEEP PATEL MD , Exam: KNEE LEFT 3 [facility] ======== KNEE LEFT 3 S 03/30/2021 [...] findings. Electronically signed: Jesse Lazaro. Transcribed by: [email or web address], User Resident: Electronically Signed by: JESSE LAZARO @ 03/30/2021 11:00 AM Normal [facility] Comment on above: Order Comment: , , = ========= , Ordering Provider - RAMANDEEP PATEL MD , KNEE RIGHT 3 Son KNEE RIGHT 3 S [facility] Department of Radiology [address] [place] [phone] ======== Patient Name: ADRIANA RAYGOZA : 1955 Sex: F Age: Race: White Pt. Location: 84 Patient Status: O Ordered Date: 03/30/2021 9:05:00 AM Completed Date: 03/30/2021 09:07 AM Requesting Provider: RAMANDEEP PATEL Attending Provider: RAMANDEEP PATEL Report Copy To: Signs & Symptoms: M25.569 Pain in unspecified knee I10 History: [place] Comments: Evaluate Exam: KNEE RIGHT 3 VWS [...] reports Electronically signed: Jesse Lazaro. Transcribed by: [email or web address], User Resident: SHALA EATON Electronically Signed by: JESSE LAZARO @ 03/30/2021 03:52 PM I personally read this/these film(s) with this resident Normal [facility] Comment on above: Order Comment: Evalu ate MRI LUMBAR SP W & WO CONTRAS Ton 10-11-2020 MRI LUMBAR SP W & WO CONTRAST STUDY: MRI LUMBAR SP W WO CONTRAST; 10/11/2020 11:35 am INDICATION: POST LAMINECTOMY SYNDROME. COMPARISON: None. ACCESSION NUMBER(S): [id number] ORDERING CLINICIAN: Denis Donohue TECHNIQUE: The lumbar [...] osteomyelitis. * THIS EXAMINATION WAS INTERPRETED AT [facility] Normal [facility] LUMB SP COMP W FLEX/EXT 6 VW Son 09-12-2020 LUMB SP COMP W FLEX/EXT 6 VWS STUDY: LUMB SP COMP W FLEX/EXT 6 VWS ; ; 09/12/2020 8:45 am INDICATION: PAIN. COMPARISON: None. ACCESSION NUMBER(S): [id number] ORDERING CLINICIAN: Denis Donohue FINDINGS: Status post [...] neural foraminal stenosis at L5-S1 level. Normal [facility] Ambulatory Clinical Summaryo n 05-22-2020 Ambulatory Clinical Summary {[id number] }CD:[id number] Normal [facility] Coding Summary.on 05-10-2020 Coding Summary. CODING DATE: 05/10/2020 FINAL [facility] STATUS: Home (Routine DC) PAYOR: [...] Jasmine CphT Date Saved: 05/10/2020 04:39 pm [facility] Coding Summary.on 05-08-2020 Coding Summary. CODING DATE: 05/08/2020 [facility] STATUS: Home (Routine DC) PAYOR: Commercial [...] Jasmine CphT Date Saved: 05/08/2020 12:00 pm [facility] IntraOperative Documentson 0 05-08-2020 IntraOperative Documents [id number]#1. 00CD:127 [facility] Postoperative Documentson Postoperative Documents [id number]#1.0 0CD:127 [facility] Coding Summary.on 05-04-2020 Coding Summary. CODING DATE: 05/04/2020 [facility] STATUS: Home (Routine DC) PAYOR: Commercial Insurance APC DESCRIPTION 5301 Level 1 Upper GI Procedures ADMIT DX: REASON FOR VISIT DX: R10.13 Epigastric pain FINAL DX: PRINCIPAL: K29.50 Unspecified chronic gastritis without bleeding SECONDARY: K25.9 Gastric ulcer, unspecified as acute or chronic, without hemorrhage or perforation R11.2 Nausea with vomiting, unspecified PYMT PROC APC STAT DESCRIPTION DOCTOR NAME DATE [id number] Reid CLINE MD 05/01/2020 phagogastroduodenoscop y, flexible, transoral; with biopsy, single or multiple 75118 Anesthesia for upper Elliot Tena Jr, DO [...] Revised Date Saved: 05/04/2020 03:45 pm Normal [facility] Progress Note-Physicianon Progress Note-Physician Patient: [...] Cardiovascular: Regular rhythm. Neurologic: Alert, Oriented. Plan [place] [employer]esthesi[employer] (ASA) physical status classification: Class II. Anesthetic Preoperative Plan Anesthesia: General. . Anesthetic plan, risks, benefits, and alternatives discussed with the patient and/or family. Communication: face to face with (patient 5 minutes, Patient educated on smoking cesstation). Normal [facility] Comment on above: Result Comment: Elec tronically Signed By: Elliot Tena Jr, DO\.br\Date and Time Signed: 05/03/20 09:34 EDT Main OR Intraoperative Recor don 05-02-2020 Main OR Intraoperative Record IntraOp Document Type FT Summary Primary Physician: Reid NIEVES MD Finalized Date/Time: 05/02/20 13:35:19 Pt. Name: ADRIANA DINERO Shoshana VeraB./Sex: 1955 Female Med Rec #: [id number] Physician: Reid NIEVES MD Financial #: [id number] Pt. Type: O Room/Bed: / Admit/Disch: 05/01/20 07:03:44 - 05/01/20 23:59:59 Institution: Case Times FT Entry 1 Patient Times In Room 05/01/20 08:17:00 Out Room 05/01/20 08:25:00 Procedure Times Start 05/01/20 08:21:00 Stop 05/01/20 08:23:00 Anesthesia Times Start 05/01/20 08:17:00 Stop 05/01/20 08:25:00 Last Modified By: Savannah Chavis RN 05/01/20 08:26:21 General Comments: 05/02/2020 Chart opened to review and send charges Juvencio Andrés PRACTICE COORDINATOR Case Attendance FT Entry 1 Entry 2 Entry 3 Case Attendee Elliot Tena Jr, DO, RN, Fior Simms Role Performed Anesthesiologist of Master Machinist - Primary Scrub - Primary Record Time [...] Outcomes Met? Yes Last Modified By: Savannah Chavsi RN 05/01/20 08:20:38 Post-Care Text: The patient [...] RN Patient Status Stable Skin. Condition Intact, [place], Warm, and Dry Airway Maintenance Oxygen in Use? No Outcomes Met? Yes Last Modified By: Savannah Chavis RN 05/01/20 06:57:50 Post-Care Text: The patient is free from signs and symptoms of injury related to transfer/transport General Comments: Report given to fundraising director. RHRN Medication Administration FT Pre-Care Text: Verifies [...] 08:26 Altagracia Bowen CST 05/02/20 13:35 Normal [facility] Consenton 05-01-2020 Consent [id number]#1.0 0CD:127 Normal [facility] Consent for Treatmenton 04-11 Consent for Treatment [id number] 0CD:127 Normal [facility] Discharge Instructionson Discharge Instructions [id number] 0CD:127 [facility] History and Physicalon 05-01 History and Physical [id number]#1.0 0CD:127 Normal [facility] Inpatient Patient Summaryon 05-01-2020 Inpatient Patient Summary [address] [address] [facility] Clinical Discharge Instructions PERSON INFORMATION Name: ADRIANA DINERO I [facility]#:[id number] PHYSICIANS Admitting Physician: Reid NIEVES MD Attending Physician: Ried NIEVES MD PCP: TOBY QUINTANA MD Discharge Diagnosis: Antral ulcer Comment: PATIENT EDUCATION INFORMATION Instructions: Medication Leaflets: Follow up: With: Address: When: [facility] [address] [place] [address] Within 2 weeks Type Location Start [facility] Follow Up [facility] 05/22/2020 2:15 PM 05/22/2020 2:30 PM Confirmed MEDICATION LIST Medications to Continue Taking That Have Changed [facility] [facility], [address] [place], [place] [id number], [phone] START: omeprazole (omeprazole 40 mg Cap-DR) 1 [...] Mouth every 8 hours. Refills: 1. Comment: [facility] IntraOperative Documentson 0 05-01-2020 IntraOperative Documents [id number]#1.0 0CD:127 [facility] IntraOperative Documents [id number] 0CD:127 [facility] Main OR PACU I Recordon 04-11 Main OR PACU I Record PACU Phase I Document Type FT Summary Primary Physician: Reid NIEVES MD Finalized Date/Time: 05/01/20 09:14:39 Pt. Name: ADRIANA DINERO Shoshana Jerome/Sex: 1955 Female Med Rec #: [id number] Physician: Reid NIEVES MD Financial #: [id number] Pt. Type: O Room/Bed: / Admit/Disch: 05/01/20 [...] Signed By: Ami Donaldson RN 05/01/20 09:14 [facility] Main OR Preoperative Recordo n 05-01-2020 Main OR Preoperative Record Holding Area Document Type FT Summary Primary Physician: Reid NIEVES MD Finalized Date/Time: 05/01/20 07:37:17 Pt. Name: ADRIANA DINERO/Sex: 1955 Female Med Rec #: [id number] Physician: Reid NIEVES MD Financial #: [id number] Pt. Type: O Room/Bed: / Admit/Disch: 05/01/20 [...] By: Lizbeth Diamond RN 05/01/20 07:37 Normal [facility] Monitor Recordon 05-01-2020 Monitor Record [id number]#1. 00CD:127 Normal [facility] Patient Education - Texton 0 05-01-2020 Patient Education - Text Normal [facility] Ambulatory Clinical Summaryo n 04-24-2020 Ambulatory Clinical Summary {[id number]}CD:[id number] Normal [facility] Auto Diffon 04-24-2020 Basophils/100 WBC (Bld) 0.5 % Normal 0.0-2.0 [facility] Comment on above: Order Comment: Order Added by Discern Expert. Performed By: #### 2 402781, 7682968, 3333463, 0095264, [id number] #### [facility] Laboratory [address] [place] [address] Basophils/Leukocytes Auto (Bld) [Pure # fraction] 0.0 E9/L Normal 0.0-0.2 [facility] Comment on above: Order Comment: Order Added by Discern Expert. Performed By: #### 2 551821, 8459602, 3284239, 5145994, [id number] #### [facility] Laboratory [address] [place] [address]576 Eosinophils/100 WBC (Bld) 2.9 % Normal 0.0-8.0 [facility] Comment on above: Order Comment: Order Added by Discern Expert. Performed By: #### 2 030991, 3391535, 0090589, 5503748, [id number] #### [facility] Laboratory [address] [place] [address]887 Eosinophils/Leukocyt es Auto (Bld) [Pure # fraction] 0.3 E9/L Normal 0.0-0.5 [facility] Comment on above: Order Comment: Order Added by Discern Expert. Performed By: #### 2 974623, 8544012, 6324242, 8154461, [id number] #### [facility] Laboratory [address] [place] [address]19 Lymphocytes/100 WBC (Bld) 23.7 % Normal 14.0-50.0 [facility] Comment on above: Order Comment: Order Added by Discern Expert. Performed By: #### 2 674405, 9688680, 2741325, 6860404, 66340033 #### [facility] Laboratory [address] [place] [address] 61795 Lymphocytes/Leukocyt es Auto (Bld) [Pure # fraction] 2.2 E9/L Normal 1.0-4.0 [facility] Comment on above: Order Comment: Order Added by Discern Expert. Performed By: #### 2 894772, 8056369, 7802921, 9274957, [id number] #### [facility] Laboratory [address] [place] [address]294 Monocytes/100 WBC (Bld) 7.4 % Normal 4.0-14.0 [facility] Comment on above: Order Comment: Order Added by Discern Expert. Performed By: #### 2 096460, 8121655, 3513366, 5690438, [id number] #### [facility] Laboratory [address] [place] [address] Monocytes/Leukocytes Auto (Bld) [Pure # fraction] 0.7 E9/L Normal 0.2-1.0 [facility] Comment on above: Order Comment: Order Added by Discern Expert. Performed By: #### 2 685766, 5221033, 7992385, 7701691, 96878170 #### [facility] Laboratory [address] [place] [address]2744 Neutrophils/100 WBC (Bld) 65.5 % Normal 36.0-75.0 [facility] Comment on above: Order Comment: Order Added by Discern Expert. Performed By: #### 2 600389, 8494643, 5240984, 4811556, 27194585 #### [facility] Laboratory [address] [place] [address]21 Neutrophils/Leukocyt es Auto (Bld) [Pure # fraction] 6.0 E9/L Normal 2.0-7.5 [facility] Comment on above: Order Comment: Order Added by Discern Expert. Performed By: #### 2 841622, 9838802, 1844533, 4891513, 68684373 #### [facility] Laboratory [address] [place] [address] 31494 CBC w/ Auto Diffon 0 Erythrocyte distribution width (RBC) [Ratio] 16.1 % High 10.9-14.2 [facility] Comment on above: Performed By: #### 2 448697, 8476380, 6101937, 7953068, [id number] #### [facility] Laboratory [address] [place] [address] 96845 Hematocrit (Bld) [Volume fraction] 45.1 % Normal 34.0-46.0 [facility] Comment on above: Performed By: #### 2 059001, 9022281, 4360762, 1511626, 62744121 #### [facility] Laboratory [address] [place] [address] 29108 Hemoglobin (Bld) [Mass/Vol] 15.0 g/dL Normal 12.0-16.0 [facility] Comment on above: Performed By: #### 2 168362, 1911824, 3989927, 9143757, 40972586 #### [facility] Laboratory [address] [place] [address] 46090 MCH (RBC) [Entitic mass] 27.2 pg Normal 27.0-34.0 [facility] Comment on above: Performed By: #### 2 875252, 1428339, 5487599, 4989051, 56452488 #### [facility] Laboratory [address] [place] [address] 91058 MCHC (RBC) [Mass/Vol] 33.2 g/dL Normal 31.4-36.0 [facility] Comment on above: Performed By: #### 2 766735, 8490454, 0079023, 0228035, 00213335 #### [facility] Laboratory [address] [place] [address] 18179 MCV (RBC) [Entitic vol] 82.0 fL Normal 80.0-100.0 [facility] Comment on above: Performed By: #### 2 114866, 2742493, 8317829, 2202088, 53533187 #### [facility] Laboratory [address] [place] [address] 29848 Platelet mean volume (Bld) [Entitic vol] 7.3 fL Normal 6.4-10.8 [facility] Comment on above: Performed By: #### 2 409683, 0995993, 1164863, 4736596, 25946171 #### [facility] Laboratory [address] [place] [address] 08869 Platelets (Bld) [#/Vol] 253.0 E9/L Normal 150.0-500.0 [facility] Comment on above: Performed By: #### 2 252466, 1988999, 5620011, 1716392, 05690281 #### [facility] Laboratory [address] [place] [address] 69665 RBC (Bld) [#/Vol] 5.5 E12/L Normal 4.3-5.9 [facility] Comment on above: Performed By: #### 2 752151, 4066841, 4524109, 2044358, 02278502 #### [facility] Laboratory [address] [place] [address] 71043 WBC corrected for nucl RBC Auto (Bld) [#/Vol] 9.1 E9/L Normal 4.0-11.0 [facility] Comment on above: Performed By: #### 2 632167, 5863816, 3729785, 2619153, 60485542 #### [facility] Laboratory [address] [place] [address] 50579 CMPon 04-24-2020 Albumin [Mass/Vol] 3.7 g/dL Normal 3.3-5.0 [facility] [facility] Comment on above: Performed By: #### 2 287645, 8653509, 2165486, 9021882, [id number] #### [facility] [address] [place], [place] [id number] Albumin [Mass/Vol] 1.0 g/dL Low 1.1-2.2 [facility] Comment on above: Performed By: #### 2 352963, 2551859, 9013532, 9290145, [id number] #### [facility] [address] [place] [address] ALP [Catalytic activity/Vol] 107 Int._Unit/L High 21-98 [facility] Comment on above: Performed By: #### 2 179634, 5803734, 3874339, 1478641, 35684197 #### [facility] [address] [place] [place] [address] ALT No additional P-5'-P [Catalytic activity/Vol] 17 Int._Unit/L Normal 6-46 [facility] Comment on above: Performed By: #### 2 993344, 6158120, 5012855, 3843293, 03768905 #### [facility] [address] [place] [address] Anion gap [Moles/Vol] 11 mmol/L Normal 6-16 [facility] Comment on above: Performed By: #### 2 126533, 7210537, 3789410, 6066020, 81228347 #### [facility] [address] [place] [address] AST [Catalytic activity/Vol] 21 Int._Unit/L Normal 5-43 [facility] Comment on above: Performed By: #### 2 644139, 3339764, 4811099, 8609827, 01566040 #### [facility] [address] [place] [address] Bilirubin [Mass/Vol] 0.5 mg/dL Normal 0.0-1.1 [facility] Comment on above: Performed By: #### 2 919205, 2685151, 6667415, 6118481, 47934643 #### [facility] [address] [place] [address] Calcium [Mass/Vol] 9.0 mg/dL Normal 8.9-11.1 [facility] Comment on above: Performed By: #### 2 775183, 6558859, 4772214, 6281747, 57186990 #### [facility] [address] [place] [address] Chloride [Moles/Vol] 107 mmol/L Normal 101-111 [facility] Comment on above: Performed By: #### 2 146920, 6347086, 1911587, 0952585, 56649418 #### [facility] [address] [place] [address] CO2 [Moles/Vol] 27 mmol/L Normal 21-31 [facility] Comment on above: Performed By: #### 2 042971, 8181347, 7931320, 3211199, 98647948 #### [facility] [address] [place] [address] Creatinine [Mass/Vol] 0.8 mg/dL Normal 0.5-1.3 [facility] Comment on above: Performed By: #### 2 835259, 4922696, 1585465, 5165206, 09740866 #### [facility] [address] [place] [address] Globulin (S) [Mass/Vol] 3.7 g/dL Normal 1.4-4.0 [facility] Comment on above: Performed By: #### 2 805816, 7497947, 0212275, 8367264, 19568404 #### [facility] [address] [place] [address] Glucose [Mass/Vol] 134 mg/dL Normal 55-199 [facility] Comment on above: Result Comment: If t his glucose result represents a fasting glucose, interpretation should refer to the following reference range: 55-99 mg/dL Performed By: #### 2 922210, 0853697, 1889824, 2387383, 86908425 #### [facility] [address] [place] [address] Potassium [Moles/Vol] 3.9 mmol/L Normal 3.5-5.3 [facility] Comment on above: Performed By: #### 2 979923, 2062263, 6730037, 1710644, 60647778 #### [facility] [address] [place] [address] Protein [Mass/Vol] 7.4 g/dL Normal 6.0-7.8 [facility] Comment on above: Performed By: #### 2 729655, 2801780, 0907975, 9623236, 29254327 #### [facility] [address] [place] [address] Sodium [Moles/Vol] 141 mmol/L Normal 135-145 [facility] Comment on above: Performed By: #### 2 103911, 9372927, 8788746, 2051524, 35089063 #### [facility] [address] [place] [address] Urea nitrogen [Mass/Vol] 17 mg/dL Normal 5-21 [facility] Comment on above: Performed By: #### 2 028246, 4876431, 8378363, 4627101, 29235877 #### [facility] [address] [place] [address] Urea nitrogen/Creatinine [Mass ratio] 21 No Units High 10-20 [facility] Comment on above: Performed By: #### 2 872623, 4199691, 8311503, 5957394, 99195867 #### [facility] [address] [place] [address] Consent for Treatmenton 04-10 Consent for Treatment [id number] 0CD:127 Normal [facility] Lipase Levelon 04-24-2020 Lipase [Catalytic activity/Vol] 40 unit/L Normal 13-58 [facility] Comment on above: Performed By: #### 2 934345, 7947165, 2655365, 7045572, 36933507 #### [facility] [address] [place] [address] Physician Orderon 04-24-2020 Physician Order [id number] CD:127 Normal [facility] eGFRon 04-24-2020 GFR/1.73 sq M predicted among blacks MDRD (S/P/Bld) [Vol rate/Area] mL/min/{1.73_m2} Normal >=59 [facility] Comment on above: Order Comment: Order added by Discern Expert. Result Comment: eGFR is race adjusted. AA=. Performed By: #### 2 068580, 2284293, 3886477, 5011619, 70988899 #### [facility] [address] [place] [address] GFR/1.73 sq M predicted among non-blacks MDRD (S/P/Bld) [Vol rate/Area] mL/min/{1.73_m2} Normal >=59 [facility] Comment on above: Order Comment: Order added by Discern Expert. Result Comment: Sensory Scientist farhan kidney disease could be indicated at eGFR's of less than 60 mL/min/1.73m2. Kidney failure is indicated at less than 15 mL/min/1.73m2. Performed By: #### 2 059547, 0409559, 8836215, 2793952, 76053509 #### [facility] [address] [place] [address] PROGRESSon 11-04-2019 PROGRESS HNO ID: [id number] Author: Bridger Ma Service: ? Author Type: Physician Type: Progress Notes Filed: 11/04/2019 5:12 PM Note Text: Bridger Ma MD Department of Orthopaedics Orthopaedics [address] [address] Dept: [phone] October 05, 2019 CHIEF COMPLAINT: New Patient [...] record. Caitlyn Cantu, LIZZY [address] [facility] [address] Toby Quintana MD [address] [place] [phone] This note was partially generated using [employer] voice recognition system, and there may be some incorrect words, spellings, and punctuation that were not noted in checking the note before saving. Bridger Ma MD Normal [facility] CNOVon 10-05-2019 CNOV Office Visit (HODA ) ADRIANA DINERO ([id number]) 1955 F Date Time Provider Department 10/05/19 [...] ground. Patient had an x-ray done at [facility] on 11/02/18 and a MRI on 11/30/18. Patient hand carried copies of the reports and films on a CD. with patient today. Referred by Caitlyn Cantu. Taking [place] and Naproxen for the pain and does not help. Using a walker today and as needed at home. Bridger Ma MD 11/04/2019 5:12 PM Signed Bridger Ma MD Department of Orthopaedics Orthopaedics [address] [place] [address] Dept: [phone] October 05, 2019 CHIEF COMPLAINT: New Patient [...] medical record. LIZZY Graham 970 [facility] [address] Toby Quintana MD [address] [place] [phone] This note was partially generated using [employer] voice recognition system, and there may be some incorrect words, spellings, and punctuation that were not noted in checking the note before saving. Bridger Ma MD Referring Provider: CAITLYN CANTU [[id number]] Allergies As of Date: 10/05/2019 Noted Allergy [...] mg injection (CELESTONE)Disp: Rfl: [facility] [[id number]] Order #: [id number]: 1 Large Joint Arthro/Inj: R knee joint [[id number]] Order #: [id number] betamethasone acetate-betamethasone sodium phosphate 6 mg injection [...] Status:Closed by BRIDGER MA MD on 11/04/19 [facility] PROGRESSon 10-05-2019 PROGRESS HNO ID: [id number] Author: Eleanor Talbot Ma Service: ? Author Type: ? Type: Progress Notes Filed: 11/04/2019 5:12 PM Note Text: Patient presents with: New Patient: Right knee pain - Ref. [facility]ait[facility]u [facility] Risk Screening [...] ground. Patient had an x-ray done at [facility] on 11/02/18 and a MRI on 11/30/18. Patient hand carried copies of the reports and films on a CD. with patient today. Referred by Caitlyn Cantu. Taking [place] and Naproxen for the pain and does not help. Using a walker today and as needed at home. Normal [facility] CREATININEon 08-26-2019 Creatinine [Mass/Vol] 0.80 mg/dL Normal 0.50 - 1.05 [facility] Comment on above: Performed By: #### C REAT #### [address] [address] Creatinine [Mass/Vol] mg/dL Normal >60 [facility] Comment on above: Performed By: #### C REAT #### [address] [address] Result Comment: CALC ULATIONS OF ESTIMATED GFR ARE PERFORMED USING THE MDRD STUDY EQUATION FOR THE IDMS-TRACEABLE CREATININE METHODS. CLIN CHEM 2007;53:766-72 ELECTROLYTE PANELon 08-26-20 19 Anion gap [Moles/Vol] 14 mmol/L Normal - 20 [facility] Comment on above: Performed By: #### E LECT #### [address] [address] Chloride [Moles/Vol] 104 mmol/L Normal 98 - 107 [facility] Comment on above: Performed By: #### E LECT #### [address] [address] HCO3 (Bld) [Moles/Vol] 29 mmol/L Normal 21 - 32 [facility] Comment on above: Performed By: #### E LECT #### [address] [address] Potassium [Moles/Vol] 4.6 mmol/L Normal 3.5 - 5.3 [facility] Comment on above: Performed By: #### E LECT #### [address] [address] Sodium [Moles/Vol] 142 mmol/L Normal 136 - 145 [facility] Comment on above: Performed By: #### E LECT #### [facility] [address] [place] [address] UREA NITROGENon 08-26-2019 Urea nitrogen [Mass/Vol] 14 mg/dL Normal 6 - 23 [facility] Comment on above: Performed By: #### U CARLOS #### [address] [address] [facility] CARDIAC STRESS/REST INJE CTIONon 08-25-2019 [facility] CARDIAC STRESS/REST INJECTION Patient Name: ADRIANA DINERO STUDY: MYOCARDIAL PERFUSION STRESS TEST WITH LEXISCAN Performing facility: [facility], [address] [place] [address], [address], [place] [address] [facility] Provider: GURU LU PCP: Dr. Poli QUINTANA Supervising provider: Poli VILLAFANA INDICATION: DYSPNEA EDEMA HISTORY: Gender: F; Age: 64 y/o ; Height: 170.18 cm; Weight: 127.408139 kg. SOB High Cholesterol; Family HX CAD; PALPITATIONS COMPARISON: ACCESSION NUMBER(S): [id number] ORDERING CLINICIAN: IBAN LU TECHNIQUE: TWO DAY [...] Electronically signed by: IBAN LU MD Normal [facility] OT-MRI KNEE RT WO CON IMPORT on 07-27-2019 OT-MRI KNEE RT WO CON IMPORT Images were obtained outside of [facility] [id number] Normal [facility] CNOVon 07-07-2019 CNOV Office Visit (SPNMED ) ADRIANA DINERO ([id number]) 1955 F Date Time Provider Department 07/07/19 9:40 AM CAITLYN CANTU [facility] During your visit today, we recorded the following information about you: Pulse Blood pressure Weight Height 80/minute 126/55 124.1 kg 1.676 m LIZZY Graham 07/07/2019 1:08 PM Signed BEVERLEY Lopez [facility] [address] [place] [address] 07/07/2019 Assessment Diagnosis: Encounter Diagnosis ICD-10-CM 1. [...] told for multiple years that she has zomk-gx-ntum arthritis in the right knee and this [...] record for those providers who practice within [facility] or with access to [employer] via MD Connect, or via letter. - [...] past--performed in [address] Jones in [place]. The procedure was a spinal laminectomy and fusion L2-4, and subsequent revision L2-5 lami/fusion with posterior hardware and interbody cages. 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 R: -2/5 L: 5/5 Interossei R: 0/5 [...] Order(s):CONSULT TO ORTHOPAEDIC SURGERY [19991211] Order #: [id number]: 1 Prescriptions as of 07/07/2019 Sig: ALPRAZOLAM 1 MG TABLET Take 2 mg by mouth daily at b* FLUTICASONE 500 MCG-SALMETERO* Inhale 1 Puff as instructed t* NAPROXEN 500 MG TABLET Take 500 mg by mouth twice da* HYDROCODONE 5 MG-ACETAMINOPHE* Take 1 tablet by mouth every * ATENOLOL 25 MG TABLET Take 50 mg by mouth daily at * DULOXETINE 60 MG CAPSULE,SIMOEN* Take 60 mg by mouth once devin* Problem List As Of Date: 07/07/2019 (None) Disposition: Return if symptoms worsen or fail to improve. Follow-up and Disposition History Recorded Encounter Status:Closed by CAITLYN CANTU PA-C on 07/07/19 [facility] PROGRESSon 07-07-2019 PROGRESS HNO ID: [id number] Author: Caitlyn Cantu Service: ? Author Type: Physician Research Scientist Type: Progress Notes Filed: 07/07/2019 1:08 PM Note Text: Caitlyn Cantu [facility]C [facility] [address] [place] [address] 07/07/2019 Assessment Diagnosis: Encounter Diagnosis ICD-10-CM 1. [...] told for multiple years that she has aizj-ey-ypch arthritis in the right knee and this [...] record for those providers who practice within [facility] or with access to [employer] via MD Connect, or via letter. SUBJECTIVE: [...] past--[place] [address] Jones in [place]. The procedure was a spinal laminectomy and fusion L2-4, and subsequent revision L2-5 lami/fusion with posterior hardware and interbody cages. 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 IMAGING STUDIES: See above Normal [facility] CT-CT cervical spine w con I MPORTon 04-08-2019 CT-CT cervical spine w con IMPORT Images were obtained outside of [facility] [id number] Normal [facility] CT-CT cervical spine w con IMPORT Images were obtained outside of [facility] [id number] Normal [facility] CT-CT cervical spine w con IMPORT Images were obtained outside of [facility] [id number] Normal [facility] CT-CT lumbar spine w con IMP Edi 04-08-2019 CT-CT lumbar spine w con IMPORT Images were obtained outside of [facility] [id number] Normal [facility] CT-CT lumbar spine w con IMPORT Images were obtained outside of [facility] [id number] Normal [facility] CT-CT lumbar spine w con IMPORT Images were obtained outside of [facility] [id number] Normal [facility] OT-IR myelogram spine total IMPORTon 04-08-2019 OT-IR myelogram spine total IMPORT Images were obtained outside of [facility] [id number] Normal [facility] OT-IR myelogram spine total IMPORT Images were obtained outside of [facility] [id number] Normal [facility] OT-IR myelogram spine total IMPORT Images were obtained outside of [facility] [id number] Normal [facility] OT-MRI C-SPINE WO CON IMPORT on 02-25-2019 OT-MRI C-SPINE WO CON IMPORT Images were obtained outside of [facility] [id number] Normal [facility] OT-XR KNEE RT 4V OR > IMPORT on 11-30-2018 OT-XR KNEE RT 4V OR > IMPORT Images were obtained outside of [facility] [id number] [facility] Vital Signs Date Time Vital Sign Value Performing Clinician Facility 08-12-2024 09: Body height 165.1 cm [facility] 08-12-2024 09: Body mass index (BMI) [Ratio] 39.2 kg/m2 [facility] 08-12-2024 09: Body weight 106.76 kg [facility] 08-12-2024 09: Diastolic blood pressure 72 mm[Hg] [facility] 08-12-2024 09: Heart rate 75 /min [facility] 08-12-2024 09:23-0400 Respiratory rate 16 /min [facility] 08-12-2024 09:23-0400 SaO2% (BldA) [Mass fraction] 96 % [facility] 08-12-2024 09:23-0400 Systolic blood pressure 128 mm[Hg] [facility] 04-30-2024 09:12-0400 Body height 165.1 cm [facility] 04-30-2024 09:12-0400 Body mass index (BMI) [Ratio] 39.6 kg/m2 [facility] 04-30-2024 09:12-0400 Body weight 107.95 kg [facility] 04-30-2024 09:12-0400 Diastolic blood pressure 74 mm[Hg] [facility] 04-30-2024 09:12-0400 Heart rate 75 /min [facility] 04-30-2024 09:12-0400 Systolic blood pressure 109 mm[Hg] [facility] 03-22-2024 13:18-0400 Body height 165.1 cm [facility] 03-22-2024 13:18-0400 Body mass index (BMI) [Ratio] 39.7 kg/m2 [facility] 03-22-2024 13:18-0400 Body weight 108.4 kg [facility] 03-22-2024 13:18-0400 Diastolic blood pressure 77 mm[Hg] [facility] 03-22-2024 13:18-0400 Heart rate 75 /min [facility] 03-22-2024 13:18-0400 Systolic blood pressure 127 mm[Hg] [facility] 02-10-2024 13:04-0400 Body height 167.64 cm [facility] 02-10-2024 13:04-0400 Body mass index (BMI) [Ratio] 38.5 kg/m2 [facility] 02-10-2024 13:04-0400 Body weight 108.4 kg [facility] 02-10-2024 13:04-0400 Diastolic blood pressure 73 mm[Hg] [facility] 02-10-2024 13:04-0400 Heart rate 85 /min [facility] 02-10-2024 13:04-0400 Systolic blood pressure 105 mm[Hg] [facility] 01-19-2024 08:44-0400 Body height 167.64 cm [facility] 12-30-2023 09:55-0500 Body height 167.64 cm [facility] 12-30-2023 09:55-0500 Body mass index (BMI) [Ratio] 38.9 kg/m2 [facility] 12-30-2023 09:55-0500 Body weight 109.31 kg [facility] 12-30-2023 09:55-0500 Diastolic blood pressure 76 mm[Hg] [facility] 12-30-2023 09:55-0500 Heart rate 69 /min [facility] 12-30-2023 09:55-0500 Systolic blood pressure 120 mm[Hg] [facility] 12-09-2023 10:32-0500 Diastolic blood pressure 80 mm[Hg] Iban Lu MD Work Phone: [facility] 12-09-2023 10:32-0500 Systolic blood pressure 130 mm[Hg] Iban Lu MD Work Phone: [facility] 12-09-2023 09:46-0500 Body height 167.6 cm Iban Lu MD Work Phone: [facility] 12-09-2023 09:46-0500 Body mass index (BMI) [Ratio] 39.06 kg/m2 Iban Lu MD Work Phone: [facility] 12-09-2023 09:46-0500 Body weight 109.77 kg Iban Lu MD Work Phone: [facility] 12-09-2023 09:46-0500 Heart rate 68 /min Iban Lu MD Work Phone: [facility] 08-20-2023 09:00-0400 Body height 167.64 cm Toby Quintana Other [employer] Other 08-20-2023 09:00-0400 Body mass index (BMI) [Ratio] 38.38 kg/m2 Toby Quintana Other [employer] Other 08-20-2023 09:00-0400 Body weight 107.87 kg Toby Quintana Other [employer] Other 08-20-2023 09:00-0400 Diastolic blood pressure 75 mm[Hg] Toby Quintana Other [employer] Other 08-20-2023 09:00-0400 Systolic blood pressure 108 mm[Hg] Toby Quintana Other [employer] Other 04-24-2023 11:15-0400 Body height 167.64 cm Toby Quintana Other [employer] Other 04-24-2023 11:15-0400 Body mass index (BMI) [Ratio] 38.73 kg/m2 Toby Quintana Other [employer] Other 04-24-2023 11:15-0400 Body weight 108.86 kg Toby Quintana Other [employer] Other 04-24-2023 11:15-0400 Diastolic blood pressure 79 mm[Hg] Toby Quintana Other [employer] Other 04-24-2023 11:15-0400 Systolic blood pressure 114 mm[Hg] Toby Quintana Other [employer] Other 02-07-2023 09:30-0400 Body height 167.64 cm Toby Quintana Other [employer] Other 02-07-2023 09:30-0400 Body mass index (BMI) [Ratio] 39.99 kg/m2 Toby Quintana Other [employer] Other 02-07-2023 09:30-0400 Body weight 112.4 kg Toby Quintana Other [employer] Other 02-07-2023 09:30-0400 Diastolic blood pressure 68 mm[Hg] Toby Quintana Other [facility] [employer] Other 02-07-2023 09:30-0400 Respiratory rate 18 /min Toby Quintana Other [employer] Other 02-07-2023 09:30-0400 SaO2% (BldA) [Mass fraction] 93 % Toby Quintana Other [employer] Other 02-07-2023 09:30-0400 Systolic blood pressure 142 mm[Hg] Toby Quintana Other [employer] Other 01-08-2023 10:00-0500 Body height 167.64 cm Samuel Ellston II Other [employer] Other 01-08-2023 10:00-0500 Body mass index (BMI) [Ratio] 40.19 kg/m2 Samuel Ellston II Other [employer] Other 01-08-2023 10:00-0500 Body weight 112.95 kg Samuel Ellston II Other [employer] Other 12-09-2022 13:25-0500 Body height 167.64 cm Toby Quintana Work Phone: [facility] DO Work Phone: 12-09-2022 13:25-0500 Body mass index (BMI) [Ratio] 40.03 kg/m2 Toby Quintana Work Phone: [facility] DO Work Phone: 12-09-2022 13:25-0500 Body surface area Derived from formula 2.19 m2 Toby Quintana Work Phone: [facility] 250 DO Work Phone: 12-09-2022 13:25-0500 Body weight 112.49 kg Toby Quintana Work Phone: [facility] 250 DO Work Phone: 12-09-2022 13:25-0500 Diastolic blood pressure 80 mm[Hg] Toby Quintana Work Phone: [facility] 250 DO Work Phone: 12-09-2022 13:25-0500 Heart rate 78 /min Toby Quintana Work Phone: [facility] DO Work Phone: 12-09-2022 13:25-0500 Systolic blood pressure 118 mm[Hg] Toby Quintana Work Phone: [facility] [employer] DO Work Phone: 11-22-2022 09:00-0500 Body height 167.64 cm Leeann Blades Other [employer] Other 11-22-2022 09:00-0500 Body mass index (BMI) [Ratio] 39.54 kg/m2 Leeann Blades Other [employer] Other 11-22-2022 09:00-0500 Body weight 111.13 kg Leeann Blades Other [employer] Other 09-04-2021 13:27-0400 Body height 170.18 cm Toby Quintana Work Phone: [facility] DO Work Phone: 09-04-2021 13:27-0400 Body mass index (BMI) [Ratio] 39.78 kg/m2 Toby Quintana Work Phone: [facility] DO Work Phone: 09-04-2021 13:27-0400 Body surface area Derived from formula 2.24 m2 Toby Quintana Work Phone: [facility] 250 DO Work Phone: 09-04-2021 13:27-0400 Body weight 115.21 kg Toby Quintana Work Phone: [facility] DO Work Phone: 09-04-2021 13:27-0400 Diastolic blood pressure 78 mm[Hg] Toby Quintana Work Phone: [facility] DO Work Phone: 09-04-2021 13:27-0400 Heart rate 80 /min Toby Quintana Work Phone: [facility] DO Work Phone: 09-04-2021 13:27-0400 Systolic blood pressure 104 mm[Hg] Toby Quintana Work Phone: [facility] DO Work Phone: Encounters Encounter Date Encounter Type Care Provider Facility Start: 08-12-2024 End: 08-12-2024 ambulatory [facility] Work Phone: Start: 08-12-2024 End: 08-12-2024 Patient encounter procedure [facility] Work Phone: Start: 04-30-2024 End: 04-30-2024 ambulatory [facility] Work Phone: Start: 04-30-2024 End: 04-30-2024 Patient encounter procedure Community Health Physician [facility] Work Phone: Start: 03-22-2024 End: 03-22-2024 ambulatory [facility] Work Phone: Start: 03-22-2024 End: 03-22-2024 Patient encounter procedure Community Health Physician [facility] Work Phone: Start: 02-10-2024 End: 02-10-2024 ambulatory [facility] Work Phone: Start: 02-10-2024 End: 02-10-2024 Patient encounter procedure Community Health Physician [facility] Work Phone: Start: 01-19-2024 End: 01-19-2024 Patient encounter procedure Community Health Physician [facility] Work Phone: Start: 01-14-2024 Non-patient / Non-visit Community Health Physician [facility] Work Phone: Start: 01-05-2024 Non-patient / Non-visit [facility] Physician [facility] Work Phone: Start: 12-30-2023 Patient encounter procedure [facility] Start: 12-30-2023 End: 12-30-2023 ambulatory [facility] Work Phone: Start: 12-30-2023 End: 12-30-2023 Patient encounter procedure Community Health Physician [facility] Work Phone: Start: 12-19-2023 End: 12-19-2023 ambulatory Toby Quintana Other [facility] Other Start: 12-19-2023 Telephone encounter Toby Quintana [facility] Start: 12-17-2023 End: 12-17-2023 ambulatory Toby Quintana Other [facility] Other Start: 12-17-2023 Telephone encounter Toby Quintana [facility] Start: 12-16-2023 (Televisit) Televisit Toby Quintana [facility] Start: 12-16-2023 End: 12-16-2023 ambulatory Toby Quintana Other [facility] Other Start: 12-09-2023 End: 12-09-2023 Office outpatient visit 25 minutes Iban Lu MD Work Phone: [facility] Comment on above: Supraventricular tac hycardia by ECG (Primary Dx); Mixed hyperlipidemia; Palpitations; Class II obesity Start: 12-09-2023 End: 12-09-2023 ambulatory IBAN Ashton [facility] Start: 12-08-2023 End: 12-08-2023 ambulatory Toby Quintana Other [facility] Other Start: 12-08-2023 Telephone encounter Toby Quintana [facility] Start: 11-04-2023 End: 11-04-2023 ambulatory Toby Pat Other [facility] Other Start: 11-04-2023 Telephone encounter Toby Pat [facility] Start: 10-21-2023 (Televisit) Televisit Toby Quintana [facility] Start: 10-21-2023 End: 10-21-2023 ambulatory Toby Quintana Other [facility] Other Start: 10-21-2023 End: 10-21-2023 Patient encounter procedure [facility] Work Phone: Start: 10-20-2023 End: 10-20-2023 ambulatory Toby Quintana Other [facility] Other Start: 10-20-2023 Telephone encounter Toby Pat [facility] Start: 09-25-2023 (Televisit) Televisit Toby Quintana [facility] Start: 09-25-2023 End: 09-25-2023 ambulatory Toby Quintana Other [facility] Other Start: 09-22-2023 (Televisit) Televisit Toby Quintana [facility] Start: 09-22-2023 End: 09-22-2023 ambulatory Toby Quintana Other [facility] Other Start: 09-22-2023 Telephone encounter Toby Quintana [facility] Start: 08-20-2023 End: 08-20-2023 ambulatory Toby Quintana Other [facility] Other Start: 08-20-2023 Patient encounter procedure Toby Quintana [facility] Start: 05-22-2023 Telephone encounter Toby eugene Work Phone: [facility] 600 DO Work Phone: Start: 05-12-2023 End: 05-12-2023 ambulatory Toby Quintana Other [facility] Other Start: 05-12-2023 Telephone encounter Toby Quintana [facility] Start: 04-24-2023 End: 04-24-2023 ambulatory Toby Quintana Other [facility] Other Start: 04-24-2023 Office outpatient vi sit 15 minutes Toby Quintana [facility] Start: 04-11-2023 End: 04-11-2023 ambulatory Toby Quintana Other [facility] Other Start: 04-11-2023 Telephone encounter Toby Quintana [facility] Start: 03-13-2023 End: 03-13-[address] EVIN BYERS Facility:UNKNOWN Start: 03-13-[address] Toby Quintana Facility:[id number] Start: 02-07-2023 End: 02-07-2023 ambulatory Toby Quintana Other [facility] Other Start: 02-07-2023 Patient encounter procedure Toby Quintana [facility] Start: 02-03-2023 End: 02-03-2023 ambulatory Leeann Blades Other [facility] Other Start: 02-03-2023 Telephone encounter Leeann Blades [facility] Start: 01-27-2023 End: 01-27-2023 ambulatory Leeann Blades Other [facility] Other Start: 01-27-2023 Telephone encounter Leeann Blades [facility] Start: 01-21-[address] TOBY QUINTANA [facility] ity:H1 Start: 01-16-2023 End: 01-16-2023 ambulatory Samuel Guajardoisle II Other [facility] Other Start: 01-16-2023 Telephone encounter Samuel Chatman II [facility] Start: 01-08-2023 [facility] visit new patient Samuel Goodman nayeli II [facility] Start: 01-08-2023 End: 01-08-2023 ambulatory Samuel Chatman II Facility:[facility] Start: 01-08-2023 End: 01-08-2023 ambulatory MD Toby Quintana Work Phone: [facility] Work Phone: Start: 01-08-2023 End: 01-08-2023 Patient encounter procedure MD Toby Quintana Work Phone: [facility] Start: 01-02-2023 End: 01-02-2023 ambulatory Toby Quintana Other [facility] Other Start: 01-02-2023 Telephone encounter Leeann Blades [facility] Start: 12-30-2022 End: 12-30-2022 ambulatory Leeann Blades Other [facility] Other Start: 12-30-2022 Telephone encounter Leeann Blades [facility] Start: 12-26-2022 End: 12-26-2022 ambulatory Leeann Blades Other [facility] Other Start: 12-26-2022 Telephone encounter Leeann Blades [facility] Start: 12-19-2022 End: 12-19-2022 ambulatory Leeann Blades Other [facility] Other Start: 12-19-2022 Telephone encounter Leeann Blades F [facility] Start: 12-17-2022 End: 12-17-2022 ambulatory Toby Quintana Other [facility] Other Start: 12-17-2022 Telephone encounter Toby Quintana [facility] Start: 12-10-2022 End: 12-10-2022 ambulatory Toby Quintana Other [facility] [employer] Other Start: 12-10-2022 Telephone encounter Toby Quintana [facility] Start: 12-09-2022 Office outpatient vi sit 25 minutes Toby Quintana Work Phone: [facility] 250 DO Work Phone: Start: 12-09-[address] Iban Lu Facility: Start: 11-25-2022 End: 11-25-2022 ambulatory Leeann Blades Other [facility] [employer] Other Start: 11-25-2022 Telephone encounter Leeann Blades [facility] Start: 11-22-2022 Office outpatient ne w 45 minutes Leeann Blades [facility] Start: 11-22-2022 End: 11-22-2022 ambulatory Leeann Blades Facility:[facility] Start: 11-22-2022 End: 11-22-2022 ambulatory MD Toby Quintana Work Phone: [facility] Work Phone: Start: 11-22-2022 End: 11-22-2022 Patient encounter procedure MD Toby Quintana Work Phone: [facility] Work Phone: Start: 11-05-2022 Adult health examination Nannette Quintana Other [facility] [employer] Other Start: 11-05-2022 Pre-procedure evalua tion check Toby Quintana Other [facility] Other Start: 10-04-2022 End: 10-05-[address] SHALA OMER Facility:H1 Start: 09-16-2022 Rx Renewal Toby Quintana Work Phone: [facility] 250 DO Work Phone: Start: 07-24-2022 End: 07-24-[address] TOBY QUINTANA Facility:H1 Start: 07-22-2022 End: 07-22-[address] LAUREL BRAVO Facility:H1 Start: 04-18-2022 Encounter for genera l adult medical examination without abnormal findings DR TOBY QUINTANA [facility] Start: 04-13-2022 End: 04-14-[address] TOBY QUINTANA Facility:H1 Start: 04-12-2022 End: 04-13-[address] TOBY QUINTANA Facility:H1 Start: 04-12-2022 End: 04-13-2022 Encounter for general adult medical examination without abnormal findings DR TOBY QUINTANA Facility:H1 Start: 09-04-2021 FUV, Provider: Iban Lu, Status: Pen, Time: 2:00 PM Toby Quintana Work Phone: [facility] [address] [place] Work Phone: Start: 09-04-2021 Office outpatient vi sit 25 minutes Toby Quintana Work Phone: [facility] 250 DO Work Phone: Start: 08-30-2021 Rx Renewal Toby Quintana Work Phone: [facility] [address] [place] Work Phone: Procedures Date [...] procedure 12/09/2024 9:00 AM EST Office Visit [facility] [address] [address] Iban Lu MD [address] [facility] [address], [address] [address] [facility] Start: 04-30-2024 Patient referral [facility] Work Phone: Start: 03-22-2024 Patient referral [facility] Work Phone: Start: 01-19-2024 Patient referral [facility] Work Phone: Start: 12-09-2023 End: 12-09-2024 Basic metabolic 2000 panel - Serum or Plasma Basic Metabolic Panel Lab Routine Supraventricular tachycardia by ECG Palpitations Expected: 12/09/2023 (Approximate), Expires: 12/09/2024 [facility] Service Area Work Phone: Comment on above: Expected: 12/09/2023 (Approximate), Expires: 12/09/2024 Start: 12-09-2023 FUV, Provider: Iban Lu, Status: Pen, Time: 10:00 AM FUV, Provider: Iban Lu, Status: Pen, Time: 10:00 AM [facility] Work Phone: Start: 07-11-2023 COVID-19 Vaccine ( season) COVID-19 Vaccine ( season) [facility] Start: 07-11-2023 Influenza vaccination Influenza Vacc ine (#1) [facility] Start: 09-20-2022 FUV, Provider: Iban Lu, Status: Pen, Time: 2:20 PM FUV, Provider: Iban Lu, Status: Pen, Time: 2:20 PM [facility] 250 DO Work Phone: Start: 09-05-2022 FUV, Provider: Iban Lu, Status: Pen, Time: 11:20 AM FUV, Provider: Iban Lu, Status: Pen, Time: 11:20 AM [facility] Work Phone: Start: 01-19-2006 Zoster Vaccines (1 o f 2) Zoster Vaccines (1 of 2) [facility] Start: 1996 Screening for malign ant neoplasm of breast Mammogram [facility] Start: 01-19-1978 DTaP/Tdap/Td Vaccine s (1 - Tdap) DTaP/Tdap/Td Vaccines (1 - Tdap) [facility] Start: 01-19-1974 [facility] Start: 01-19-1962 Pneumococcal Vaccine : 65+ Years (1 - PCV) Pneumococcal Vaccine: 65+ Years (1 - PCV) [facility] Start: 1956 Lipid panel Lipid Panel [facility] Start: 1955 Medicare Annual Wellness Visit Medicare Annual Wellness Visit (AWV) [facility] Start: 1956 Screening for malign ant neoplasm of colon [facility] Start: 1955 Screening for osteoporosis Bone Density Scan [facility] Comprehensive metabo lic 2000 panel - Serum or Plasma [facility] Patient referral [facility] Work Phone: [place] Lower extremity v ein - bilateral [facility] Immunizations Immunization Date Immunization Notes Care Provider Fa cility 09-06-2022 Pfizer COVID-19 Vac Bivalent 30 MCG/0.3ML Intramuscular Suspension Toby Quintana Work Phone: -[facility] 250 DO Work Phone: 07-02-2021 Pfizer-BioNTech COVI D-19 Vacc 30 MCG/0.3ML Intramuscular Suspension Toby Quintana Work Phone: [facility] Comment on above: Series: 06-11-2021 Pfizer-BioNTech COVI D-19 Vacc 30 MCG/0.3ML Intramuscular Suspension Toby Quintana Work Phone: [facility] Comment on above: Series: 09-12-2014 tetanus and diphther ia toxoids, adsorbed, preservative free, for adult use (5 Lf of tetanus toxoid and 2 Lf of diphtheria toxoid) Toby Quintana Other [facility] 09-15-2013 tetanus and diphther ia toxoids, adsorbed, preservative free, for adult use (5 Lf of tetanus toxoid and 2 Lf of diphtheria toxoid) Toby Quintana Other [facility] 09-14-2013 influenza, seasonal, injectable Toby Quintana Work Phone: [facility] 09-14-2013 influenza virus vacc ine, unspecified formulation Iban Lu MD Work Phone: [facility] Work Phone: 08-10-2013 influenza virus vacc ine, unspecified formulation Toby Quintana Work Phone: [facility] 250 DO Work Phone: 07-19-2012 influenza virus vacc ine, unspecified formulation Toby Schofield Quintana Work Phone: [facility] 250 DO Work Phone: 11-10-2009 influenza virus vacc ine, unspecified formulation Toby Schofield Quintana Work Phone: [facility] 250 DO Work Phone: 08-10-2009 influenza virus vacc ine, unspecified formulation Toby Schofield Quintana Work Phone: [facility] 250 DO Work Phone: 07-14-2007 pneumococcal polysaccharide vaccine, 23 valent Toby Quintana Other [facility] Payers Date Payer Category Payer Medicare [employer] MEDICARE A ETNA MEDICARE VALUE PLAN [id number] 2023-Present [address] [place] [address] [id number] 2023 Medicare [id number] 2022 Self-pay [id number] 1959 Unknown [id number] 1959 Unknown [id number] [id number] 1956 Unknown [id number] 1956 Unknown [id number] 1956 Unknown [id number] 1956 Unknown [id number] 1956 Unknown [id number] 1956 Unknown [id number] [id number] 1956 Unknown [id number] 1956 Unknown [id number] 1956 Unknown [id number] 1956 Unknown [id number] Unknown Unknown HCAP/HFA/FAP Active [id number] Unknown [id number] Unknown [id number] Social History Date Type Detail Facility Start: 12-09-2023 No illicit drug use No illicit drug use [address] Work Phone: Comment on above: Coffee 1 cup daily; quit 1987; Start: 1955 Sex Assigned At Female F [facility] Start: 12-09-2023 Sex Assigned At N [facility] [employer] Other Start: 12-09-2023 Tobacco smoking status NHIS Ex-smoker [facility] Work Phone: History of tobacco use Current smoker [facility] Work Phone: History of tobacco use Cigarette Smoker [facility] Work Phone: Start: 12-09-2023 Tobacco use and exposure Smokeless tobacco non-user [facility] Work Phone: Start: 12-09-2023 Alcohol intake Lifetime non-d mary (finding) [facility] Work Phone: Start: 1955 [facility]: Start: 11-29-2023 End: 12-09-2023 Exposure to SARS-CoV-2 (event) Not sure [facility] Clinical Notes 11-22-2022 to 03-22-2024 Note Date & Type Note Facility 03-22-2024 Hospital Discharg e instructions Ambulatory OrdersReferral to Orthopedics Time Frame: 03/22/24, Location: None [facility] Work Phone: 12-17-2023 Evaluation note Encounter Date Diagnosis Assessment Notes Dec, Jaw swelling (ICD-10 - R22.0) [facility] Other 02-06-2024 Evaluation note* Encounter Date Diagnosis Assessment Notes Treatment Notes Treatment Clinical Notes Dec, Dental infection (ICD-10 - K04.7) Pt will contact her insurance, find a different dentist. Will continue antibiotic at this time. [facility] Other 01-30-2024 History of Present illness Narrative* [...] follow-up will be scheduled Iban Lu MD, [facility] Review of Systems Cardiovascular: Positive for palpitations. [...] EVENING, Disp: 225 tablet, Rfl: 0 omega 3-pfk-cgb-fish oil 360 mg-108 mg- 180 mg-1,200 mg [...] of Iban Lu MD. [facility] Work Phone: [phone]) 529-885201-30-2024 Instructions* Patient Instructions* Nataliya Manning LPN - [...] Follow up one year [facility] Work Phone: [phone]) 396-849112-12-2023 Evaluation note* Encounter Date Diagnosis Assessment Notes Treatment Notes Treatment Clinical Notes Oct, Open fracture of tooth, initial encounter (ICD-10 - S02.5XXB) Keep area clean, brush and rinse frequently. seeing dentist next week. Oct, Lumbar radiculitis (ICD-10 - M54.16) pt requests refill for her chronic back issues. We discussed her treatment plan w Dr. Byers. [facility] Other 11-16-2023 Evaluation note* Encounter Date Diagnosis Assessment Notes Treatment Notes Treatment Clinical Notes Sep, Lumbar radiculitis (ICD-10 - M54.16) CHanged pain med. Jax will call Dr. Byers's office for a change in treatment plan and an appt. Sep, Nausea & vomiting (ICD-10 - R11.2) States that zofran has not helped in the past - phenergan sent in for short term use. [facility] Other 11-13-2023 Evaluation note* Encounter Date Diagnosis Assessment Notes Treatment Notes Treatment Clinical Notes Sep, Radiculopathy, lumbar region (ICD-10 - M54.16) My staff reviewed her case with Dr. Byers's staff. She is to call their office for follow-up appointment next month. Patient does not want another injection and would rather have an ablation. Trial of tramadol sent to pharmacy. OARRS reviewed. [facility] Other 10-11-2023 Evaluation note* Encounter Date Diagnosis Assessment Notes Treatment Notes Treatment Clinical Notes Aug, Pain in right knee (ICD-10 - M25.561) Aug, Other chronic pain (ICD-10 - G89.29) Aug, Pain in left knee (ICD-10 - M25.562) [facility] Other 03-31-2023 Evaluation note* Encounter Date Diagnosis Assessment Notes Treatment Notes Treatment Clinical Notes Jan, Nausea & vomiting (ICD-10 - R11.2) Jan, Pain in right knee (ICD-10 - M25.561) Jan, Other chronic pain (ICD-10 - G89.29) Jan, Pain in left knee (ICD-10 - M25.562) [facility] Other 03-31-2023 Evaluation note* Encounter Date Diagnosis Assessment Notes Treatment Notes Treatment Clinical Notes Jan, Nausea & vomiting (ICD-10 - R11.2) chronic problem - requesting refill on Zofran Jan, Pain in right knee (ICD-10 - M25.561) Jan, Other chronic pain (ICD-10 - G89.29) Jan, Pain in left knee (ICD-10 - M25.562) [facility] Other 03-01-2023 Evaluation note* Encounter Date Diagnosis [...] She would prefer to stay close to [place]. Our office is working to get her referral to pain management near [place]. [facility] Other 01-31-2023 Evaluation note* Encounter Date Diagnosis Assessment Notes Treatment Notes Treatment Clinical Notes Nov, Lumbar pain (ICD-10 - M54.50) [facility] Other 01-13-2023 Evaluation note* Encounter Date Diagnosis Assessment Notes Treatment Notes Treatment Clinical Notes Nov, Low back pain, unspecified back pain laterality, unspecified chronicity, unspecified whether sciatica present (ICD-10 - M54.50) [facility] Other evaljhysik noteNo assessment information available [facility] Work Phone: Evaluation noteNo InformationNort [employer] Other evaluation noteNoAudax Health [employer] Other Evaluation note* Diagnosis Supraventricular tachycardia by ECG- Primary Mixed hyperlipidemia Palpitations Class II obesity documented in this encounter [facility] Work Phone: Evaluation note* Diagnosis Onset Date Resolution Status Fatigue acute Hyperlipidemia acute Lumbar radiculopathy, chronic acute Medicare annual wellness visit, subsequent acute SVT (supraventricular tachycardia) acute [facility] Work Phone: Evaluation note* Diagnosis Onset Date Resolution Status Fatigue acute Hyperlipidemia acute Lumbar radiculopathy, chronic acute Medicare annual wellness visit, subsequent acute SVT (supraventricular tachycardia) acute Lumbar radiculopathy, chronic acute [facility] Work Phone: Evaluation note* Diagnosis Onset Date Resolution Status Fatigue acute Hyperlipidemia acute Lumbar radiculopathy, chronic acute Medicare annual wellness visit, subsequent acute SVT (supraventricular tachycardia) acute Lumbar radiculopathy, chronic acute Left knee pain acute Lumbar radiculopathy, chronic acute Right knee pain acute Left knee pain acute Right knee pain acute [facility] Work Phone: Evaluation note* Diagnosis Onset Date Resolution Status Left knee pain acute Lumbar radiculopathy, chronic acute Right knee pain acute Bilateral cold feet acute Left knee pain acute Right knee pain acute Bilateral lower extremity pain acute Diminished pulses in lower extremity acute PAD (peripheral artery disease) acute [facility] Work Phone: History general Narrative [...] childbirth Hospitalization History hysterectomy Hospitalization History pancreatitis [facility] [employer] Other History general N[facility]ative - [facility] Other Hospital Discharge instructionsAmbulatory Orders* Referral to Vascular Surgery Time Frame: 04/30/24, Location: None Selected [facility] Work Phone: Reason for referral (narrative)* Consultation (Routine) - Authorized Specialty Diagnoses / Procedures Referred By Contac t Referred To Contact Cardiology Diagnoses Supraventricular tachycardia by ECG Procedures Follow Up In Cardiology Iban Lu MD [address] [facility] 2, [address] [address] Iban Lu MD [address] [facility] 2, [facility] [address] [place] [address] Referral ID Status Reason Start Date Expiration Date V isits Requested Visits Authorized [id number] Authorized 12/09/2023 12/08/2024 1 1 [facility] Work Phone: Reason for visit NarrativePain Medicine Referral UpdateNosaint [facility] [employer] Other Summary Purpose Family History Unknown Family [...] and 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 * ASSESSMENT AND PLAN: * [...] will be scheduled * Iban Lu MD, [facility] Chief Complaint and Reason for Visit Chief Complaint xray Chief Complaint Swollen Face, [place]- [phone] Medicare Wellness Reason for Visit Fatigue Hyperlipidemia Lumbar radiculopathy, chronic Medicare annual wellness visit, subsequent SVT (supraventricular tachycardia) Chief Complaint Medicare Wellness Amb Documentation pulled [phone] knee injections Reason for Visit Fatigue Hyperlipidemia Lumbar radiculopathy, chronic Medicare annual wellness visit, subsequent SVT (supraventricular tachycardia) Lumbar radiculopathy, chronic Chief Complaint Medicare Wellness Amb Documentation pulled [phone] knee injections leg swelling - hot cold [...] pain, unspe cified (M54.50) Referral Organization [facility] Referring Provider First Name [facility] Referring Provider Last Name Blades Referring Provider Specialty Neurologica l Surgery Referred Organization [facility] Referred Provider Albertina Oconnell Referred Address [address], [place],[address] Referred Provider Specialty Pain Medicin e Referral Priority Routine Referral Appointment Date 2023-01-21 General Notes [facility] 023 09:03:40 AM >Received today and waiting for office notes to be locked before sending referral [facility] 01/01/2023 07:37:06 AM >Referral was fax 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 Referring Provider First Name Leeann Referring Provider Last Name Blades Referring Provider Specialty Neurologica l Surgery Referred Organization [facility] Referred Provider Samuel Chatman II Referred Address [address],[place],[address] Referred Provider Specialty Orthopaedic Surgery Referral Priority Routine Referral Appointment Date 2023-01-08 General Notes [facility] 023 10:20:34 AM >Received today and sent P2P [facility] 01/01/2023 12:05:35 PM >Patient was scheduled [facility] 01/15/2023 09:30:10 AM >Office notes not locked yet [facility] 01/16/2023 08:43:03 AM >Sent telephone encounter to referring physician to let them know that the consult letter is ready for their review Reason DECLINED lumbar an d knee pain Diagnosis 1 Lumbar pain (M54.50) Referral Organization [facility] bernardo Referring Provider First Name Toby Referring Provider Last Name Pat Referring Provider Specialty Family [facility] Referred Organization [facility] Referred Provider Paddy De Los Santos Referred Address [address] [place],[address] Referred Provider Specialty Rheumatology Referral Priority Routine [...] section and content) DATE CREATED AUTHOR 09/23/2019 [facility] DATE CREATED AUTHOR AUTHOR'S ORGANIZ ATION 11/04/2019 [facility] DATE CREATED AUTHOR AUTHOR'S ORGANIZ ATION 05/31/2020 [facility] DATE CREATED AUTHOR AUTHOR'S ORGANIZ ATION 12/06/2020 [facility] DATE CREATED AUTHOR AUTHOR'S ORGANIZ ATION 04/21/2021 [facility] DATE CREATED AUTHOR AUTHOR'S ORGANIZ ATION 12/10/2022 [employer] DATE CREATED AUTHOR AUTHOR'S ORGANIZ ATION 01/10/2023 [facility] DATE CREATED AUTHOR AUTHOR'S ORGANIZ ATION 01/17/2023 [facility] DATE CREATED AUTHOR AUTHOR'S ORGANIZ ATION 03/18/2023 [facility] DATE CREATED AUTHOR AUTHOR'S ORGANIZ ATION 06/09/2023 [facility] DATE CREATED AUTHOR AUTHOR'S ORGANIZ ATION 07/08/2024 [facility] [employer] Teams (unrecognized sec tion and content) Team Status: Inactive Member Role Status Dates Toby Quintana MD Primary Care Provider Active Leeann Quintana Attending Provider Active Team Status: Active Member Role Status Dates Toby Quintana MD Primary Care Provider Active Team Status: Inactive Member Role Status Dates Toby Quintana MD Primary Care Provider Active Samuel Chatman II, MD Attending Provider Active Wood Sawyer Relationship Specialty Start Date End Date Toby [...] BE BASED ON THE PRIMARY CLINICAL RECORDS. [facility] [employer] [facility]. provides no warranty or guarantee of the accuracy or completeness of information in this document.
[2024-09-09 14:42] VITALS: BP 102/65; PULSE 74; TEMP 36.3; O2SAT 91; BMI 36.8
--- NOTE | 2024-09-09 15:10 | SWNOTE1 ---
Medicare Outpatient Observation Notice reviewed and discussed with patient. Pt. verbalized understanding and signed the form. Original given to patient and copy placed in patient?s chart.
--- NOTE | 2024-09-09 15:31 | SWNOTE1 ---
[facility] is able to accept and will start precert once they receive PT/OT notes and H&P.
[2024-09-09 15:43] VITALS: PULSE 74
[2024-09-09] MEDS: OXYCODONE HCL/ACETAMINOPHEN 5MG/325MG 1 TAB PO (16:23)
[2024-09-09] MEDS: PREGABALIN 50 MG CAPSULE PO ×2 (16:23→21:09)
[2024-09-09] MEDS: POLYETHYLENE GLYCOL 3350 17 GM POWDER PACKET PO (16:23)
[2024-09-09] MEDS: ENOXAPARIN SODIUM 40 MG/0.4 ML SYRINGE SUBQ (16:24)
[2024-09-09] MEDS: ONDANSETRON PF 4 MG/2 ML VIAL IV (17:31)
[2024-09-09 19:38] VITALS: BP 111/69; PULSE 80; TEMP 36.7; O2SAT 90
[2024-09-09] MEDS: CIPROFLOXACIN HCL 500 MG TABLET PO (21:08)
[2024-09-09] MEDS: DOCUSATE SODIUM 100 MG CAPSULE 200 MG PO (21:09)
[2024-09-09] MEDS: ATENOLOL 25 MG TABLET PO (21:09)
[2024-09-09] MEDS: ALPRAZOLAM 1 MG TABLET PO (21:11)
[2024-09-10] VITALS (12 sets, daily range): BP systolic 110–120; BP diastolic 63–81; PULSE 64–86; TEMP 36.1–37; O2SAT 82–96
[2024-09-10] MEDS: OXYCODONE HCL/ACETAMINOPHEN 5MG/325MG 1 TAB PO ×3 (05:11→21:10)
[2024-09-10] MEDS: PREGABALIN 50 MG CAPSULE PO ×3 (05:12→21:10)
[2024-09-10 06:00] LABS: Basophils Percent Auto 0.6 % (0.2-2.0); Eosinophils Absolute Auto 0.4 10^3/uL (0.0-0.7); Eosinophils Percent Auto 6.8 % (0.9-7.0); Hematocrit 39.4 % (36.0-48.0); Hemoglobin 12.5 g/dL (12.0-16.0); Immature Granulocytes Abs Auto 0.03 10^3/uL (0.00-0.03); Immature Granulocytes Pct Auto 0.5 % (0.0-0.5); Lymphocytes Absolute Auto 1.2 10^3/uL (1.2-3.8); Lymphocytes Percent Auto 19.1 % (20.5-60.0); Mean Corpuscular HGB Conc 31.7 g/dL (29.9-35.2); Mean Corpuscular Hemoglobin 27.4 pg (26.7-34.0); Mean Corpuscular Volume 86.4 fL (81.0-99.0); Mean Platelet Volume 10.3 fL (9.5-13.5); Monocytes Absolute Auto 0.8 10^3/uL (0.3-0.8); Monocytes Percent Auto 13.2 % (1.7-12.0); Neutrophils Absolute Auto 3.7 10^3/uL (1.4-6.5); Neutrophils Percent Auto 59.8 % (43.0-75.0); Platelet Count 167 10^3/uL (150-450); Red Blood Count 4.56 10^6/uL (4.20-5.40); Red Cell Distribution Width 13.6 % (11.0-15.0); White Blood Count 6.2 10^3/uL (4.0-11.0)
[2024-09-10 06:20] LABS: Anion Gap 9.3; BUN Creatinine Ratio 12.3; Calcium 8.9 mg/dL (8.5-10.1); Carbon Dioxide 31.4 mmol/L (21.0-32.0); Chloride 103 mmol/L (98-107); Estimated GFR (African America >60 (>=60 mL/min/1.73m^2); Estimated GFR (Non-African Ame >60 (>=60 mL/min/1.73m^2); Glucose 111 mg/dL (74-106); Potassium 3.7 mmol/L (3.5-5.1); Sodium 140 mmol/L (136-145)
--- NOTE | 2024-09-10 08:17 | SWNOTE1 ---
SW sent H&P and PT note to [facility] for precert to be started.
--- NOTE | 2024-09-10 08:28 | PM.PN ---
Progress Note: Subjective Subjective Interval history: Patient says her pain is controlled. No fevers or chills. She is sitting up in bed smiling today. Her and grand daughter are visiting. She had RUQ US given her LFT's were high. REsults pending. Exam Narrative Exam Narrative: General: Patient is alert, and oriented to person, place and time with normal affect, morbid obesity Skin: ecchymosis with hematoma of the left saxena area Head: atraumatic, acephalic Eyes: PERRLA, no nystagmus present, conjunctiva clear, no scleral icterus Ears: normal gross auditory acuity Heart: Normal rate and rhythm, no murmurs/rubs/gallops Lungs: no audible wheezes, crackles and normal breath sounds all lung briones Abdomen: Normal audible bowel sounds, no distension, No palpable masses, no organomegaly, no rebound/guarding/ or rigidity Musculoskeletal: no swelling bilateral lower extremities, bony deformities noted on both knees with pain to palpation in the medial and lateral compartments, no posterior pain Neuro: CN II-X grossly intact Constitutional Vital Signs, click to edit/add: Last Vital Signs Temp 97.9 F 09/10/24 07:52 Pulse 81 09/10/24 07:52 Resp 20 09/10/24 07:52 BP 115/73 09/10/24 07:52 Pulse Ox 92 L 09/10/24 07:52 O2 Del Method Room Air 09/10/24 07:52 O2 Flow Rate 2 09/10/24 05:14 Progress Note: Objective Labs Labs: Short CBC 09/09/24 09/10/24 Range/Units 13:45 05:30 WBC 7.0 6.2 (4.0-11.0) 10^3/uL Hgb 13.3 12.5 (12.0-16.0) g/dL Hct 41.2 39.4 (36.0-48.0) % Plt Count 172 167 (150-450) 10^3/uL BMP 09/09/24 09/10/24 13:45 05:30 Sodium 140 140 Potassium 3.8 3.7 Chloride 102 103 Carbon Dioxide 31.5 31.4 BUN 10.0 9.0 Creatinine 0.72 0.73 Glucose 97 111 H Calcium 9.2 8.9 Progress Note: A&P Assessment and Plan (1) Inability to walk: (2) Acute bilateral knee pain: (3) Contusion of right shoulder: Qualifiers: Encounter type: initial encounter Qualified Code(s): S40.011A - Contusion of right shoulder, initial encounter (4) Contusion of lower extremity: Qualifiers: Encounter type: initial encounter Laterality: unspecified laterality Qualified Code(s): S80.10XA - Contusion of unspecified lower leg, initial encounter (5) Fall: Qualifiers: Encounter type: initial encounter Qualified Code(s): W19.XXXA - Unspecified fall, initial encounter (6) UTI (urinary tract infection): Assessment and Plan: continue cipro Qualifiers: Hematuria presence: without hematuria Urinary tract infection type: acute cystitis Qualified Code(s): N30.00 - Acute cystitis without hematuria (7) Weakness: (8) Tachycardia: Assessment and Plan: contiue atenolol (9) Constipation by delayed colonic transit: Assessment and Plan: continue colace and miralax (10) Elevated LFTs: Assessment and Plan: check ultrasound today Plan continue pain control with Percocet. Will start precert to rehab facility [facility]. PT/OT evaluations. Lovenox for DVT prophylaxis Patient is a full code Patient is currently observation status; precert to rehab facility.
--- NOTE | 2024-09-10 08:30 | US_ITS ---
The [address] [address] Patient Name: INDERJIT MANN MRN: [id number] date: 1955 Sex: F Assigned Patient Location: [place] Current Patient Location: Accession/Order Number: [id number] Exam Date: 09/10/2024 09:48 Report Date: 09/10/2024 13:29 At the request of: MATT BOBO Procedure: US right upper quadrant EXAM: US right upper quadrant HISTORY: elevated LFT s COMPARISON: None. TECHNIQUE: Grayscale, color and Doppler FINDINGS: The liver is normal in size and contour. Diffuse increase in hepatic echotexture. The liver measures 14.9 cm in length. Hepatopedal flow in the main portal vein. The pancreas is not visualized due to bowel gas The gallbladder is surgically absent. The common bile duct measures 4.1 mm The right kidney is normal measuring 10.8 x 5.0 x 6.1 cm. No solid mass or hydronephrosis US/US right upper quadrant IMPRESSION: Echogenic liver, consider hepatic steatosis Electronically authenticated by: CAITLYN CABRERA Date: 09/10/2024 13:29
--- NOTE | 2024-09-10 09:02 | SWNOTE1 ---
SW completed HENS online.
[2024-09-10] MEDS: ATENOLOL 50 MG TABLET PO (09:04)
[2024-09-10] MEDS: DOCUSATE SODIUM 100 MG CAPSULE 200 MG PO ×2 (09:04→21:10)
[2024-09-10] MEDS: POLYETHYLENE GLYCOL 3350 17 GM POWDER PACKET PO (09:05)
[2024-09-10] MEDS: CIPROFLOXACIN HCL 500 MG TABLET PO ×2 (09:05→21:10)
--- NOTE | 2024-09-10 09:15 | SWNOTE1 ---
SW sent OT eval over to [place] for precert.
--- NOTE | 2024-09-10 09:52 | SWNOTE1 ---
Pt's follow up with ortho is Dr. Kwong in [place]. SW to let [facility] know and see if they will have transport available.
--- NOTE | 2024-09-10 09:58 | SWNOTE1 ---
[facility] does not have transport available next week. SW to notify family and patient.
--- NOTE | 2024-09-10 10:00 | SWNOTE1 ---
Precert has been started to [place] [facility].
--- NOTE | 2024-09-10 10:34 | PT.DAILY ---
Physical Therapy Daily Note PT Daily Note/Assess Start: 09/10/24 10:33 Freq: Status: Active Protocol: Document 09/10/24 10:33 IMAN (Rec: 09/10/24 10:34 IMAN [id number]) Visit Not Completed Visit Not Completed Visit Not Completed Due to: Other Other Reason Visit Not Completed 2x attempts to see pt between 0950 and 1020 - pt with other provider getting US in room. Physical Therapy Daily Note/Assessment Time In/Time Out Time In 09:50 Time Out 09:50 Pain In Pain N/A Pain Out Pain N/A GG. Functional Abilities and Goals-Complete for Swing Bed Patients Only [id number]. Self-Care [id number]. Mobility
--- NOTE | 2024-09-10 11:32 | CM.NOTE ---
Rounds made with Dr. Jeffers. Need for Ultrasound RUQ reviewed with Adriana by Dr. Jeffers along with plan of care.
[2024-09-10] MEDS: ENOXAPARIN SODIUM 40 MG/0.4 ML SYRINGE SUBQ (16:27)
--- NOTE | 2024-09-10 16:29 | PT.DAILY ---
Physical Therapy Daily Note PT Daily Note/Assess Start: 09/10/24 10:33 Freq: Status: Active Protocol: Document 09/10/24 16:23 IMAN (Rec: 09/10/24 16:29 [id number] Physical Therapy Daily Note/Assessment Time In/Time Out Time In 16:05 Time Out 16:20 Pain In Pain N/A Pain Out Pain N/A Subjective Subjective Supine upon arrival. reports she has been in her chair most of the day wishes to remain in bed if possible. Does agree to bed level ther ex with motivation needed. Therapeutic Exercise Time Therapeutic Exercise Minutes (minutes) 8 Therapeutic Exercise Units 1 Therapeutic Exercise Treatment Therapeutic Exercise Treatment Supine bilat AP, QS, GS, heel slides, abd slides, SLR, SAQ, and Ir/ER rocking 10x ea. remains supine upon completion . Cont to declines sitting EOB or getting to chair. Encouraged pt to get up for dinner with nursing. remains supine with call light in reach and needs met. Total Physical Therapy Time Total Therapy Minutes 8 Total Physical Therapy Units 1 Summary Daily Note Summary pt somewhat cooperative with session - bed level ex complete with min increased pain in L LE with knee flexion - pt has significant bruising on L saxena. Would benefit from SNF to regain strength to return to PLOF.
[2024-09-10] MEDS: ATENOLOL 25 MG TABLET PO (21:05)
[2024-09-11] VITALS (7 sets, daily range): BP systolic 121–142; BP diastolic 71–82; PULSE 68–88; TEMP 36.6–37.6; O2SAT 92–95
[2024-09-11 06:20] LABS: Basophils Percent Auto 0.6 % (0.2-2.0); Eosinophils Absolute Auto 0.4 10^3/uL (0.0-0.7); Eosinophils Percent Auto 7.7 % (0.9-7.0); Hematocrit 37.2 % (36.0-48.0); Hemoglobin 11.8 g/dL (12.0-16.0); Immature Granulocytes Abs Auto 0.02 10^3/uL (0.00-0.03); Immature Granulocytes Pct Auto 0.4 % (0.0-0.5); Mean Corpuscular HGB Conc 31.7 g/dL (29.9-35.2); Mean Corpuscular Hemoglobin 27.4 pg (26.7-34.0); Mean Corpuscular Volume 86.3 fL (81.0-99.0); Mean Platelet Volume 10.2 fL (9.5-13.5); Monocytes Absolute Auto 0.7 10^3/uL (0.3-0.8); Monocytes Percent Auto 13.9 % (1.7-12.0); Neutrophils Absolute Auto 2.6 10^3/uL (1.4-6.5); Neutrophils Percent Auto 56.4 % (43.0-75.0); Platelet Count 178 10^3/uL (150-450); Red Blood Count 4.31 10^6/uL (4.20-5.40); Red Cell Distribution Width 13.4 % (11.0-15.0); White Blood Count 4.7 10^3/uL (4.0-11.0)
[2024-09-11 06:29] LABS: Anion Gap 11.2; BUN Creatinine Ratio 13.1; Calcium 8.4 mg/dL (8.5-10.1); Carbon Dioxide 30.6 mmol/L (21.0-32.0); Chloride 103 mmol/L (98-107); Estimated GFR (African America >60 (>=60 mL/min/1.73m^2); Estimated GFR (Non-African Ame >60 (>=60 mL/min/1.73m^2); Glucose 105 mg/dL (74-106); Potassium 3.8 mmol/L (3.5-5.1); Sodium 141 mmol/L (136-145)
[2024-09-11] MEDS: ONDANSETRON PF 4 MG/2 ML VIAL IV ×2 (06:37→13:47)
--- NOTE | 2024-09-11 10:30 | REH.PTDLY ---
Physical Therapy Daily Note PT Daily Note/Assess Start: 09/10/24 10:33 Freq: Status: Active Protocol: Document 09/11/24 10:26 KSTEINJAYDA (Rec: 09/11/24 10:30 KSTEINJAYDA No Response) Physical Therapy Daily Note/Assessment Time In 10:03 Time Out 10:17 Subjective Pt agreeable to therapy, however states she has been nauseated and sick this morning from not going to the bathroom in 2 weeks. States they ran a test and it's just gas that I am feeling, but still feel like I need to use restroom. Just got up to use commode and instead threw up. Pain in Gilles knees and LB, but pt does not rate. Therapeutic Exercise Minutes (minutes) 9 Therapeutic Exercise Units 1 Therapeutic Exercise Treatment Instructed in B LE supine exs including AP, QS, heel slides, SLR, and hip abd slides. Pt requires AA with SLR and heel slides as she cannot perform on her own. Pt reports I know I need to get up and move, but after trying this morning and getting sick I do not want to at this time. Total Therapy Minutes 9 Total Physical Therapy Units 1 Daily Note Summary Pt requires AA with supine exs due to knee pain. Pt was supposed to see orthopedic regarding knee replacements on Friday this week, but will probably have to reschedule this pt states. Pt will need SNF at [facility] due to inability to ambulate safely at this time and pt being a high fall risk.
--- NOTE | 2024-09-11 12:20 | P.IMPN_ITS ---
Progress Note: A&P Assessment and Plan (1) Acute bilateral knee pain: Assessment and Plan: Acute worsening of chronic b/l knee pain. Has chronic pain and restricted mobility from longstanding hx of arthritis but acutely worsened since fall. Pain is reasonably controlled but patient unable to ambulate PT/OT eval. C/w pain control (2) Inability to walk: Assessment and Plan: Due to severe b/l knee arthritis. Pain control, PT/OT eval. (3) Contusion of right shoulder: Assessment and Plan: No acute finding on XR. No acute fx. Qualifiers: Encounter type: initial encounter Qualified Code(s): S40.011A - Contusion of right shoulder, initial encounter (4) Contusion of lower extremity: Assessment and Plan: No acute fx on XR. Qualifiers: Encounter type: initial encounter Laterality: unspecified laterality Qualified Code(s): S80.10XA - Contusion of unspecified lower leg, initial encounter (5) Fall: Assessment and Plan: PT/OT eval. Awaiting precert for rehab Qualifiers: Encounter type: initial encounter Qualified Code(s): W19.XXXA - Unspec ified fall, initial encounter (6) UTI (urinary tract infection): Assessment and Plan: On oral Cipro. Qualifiers: Hematuria presence: without hematuria Urinary tract infection type: acute cystitis Qualified Code(s): N30.00 - Acute cystitis without hematuria (7) Weakness: Assessment and Plan: PT/OT eval. Awaiting precert for rehab (8) Tachycardia: Assessment and Plan: Atrial tachycarida, on Atneolol for it. (9) Constipation by delayed colonic transit: Assessment and Plan: On Colace/miralax. (10) Elevated LFTs: Assessment and Plan: Likely ROMERO (11) Obesity: Assessment and Plan: Recommended weight loss as it will also help with Knee pain Qualifiers: Obesity type: due to excess calories Obesity classification: adult class 2 (BMI 35 - 39.9) Serious obesity comorbidity presence: without serious comorbidity Body mass index: BMI 36.0-36.9 Qualified Code(s): E66.812 - Obesity, class 2; E66.09 - Other obesity due to excess calories; Z68.36 - Body mass index [BMI] 36.0-36.9, adult Internal Medicine - PN: Subj Subjective Interval history: Seen and examined. Reports poorly controlled b/l knee pain and inability to ambulate because of pain. No acute events overnight. No new complaints otherwise. Exam Constitutional Vital Signs, click to edit/add: Last Vital Signs Temp 98 F 09/11/24 07:14 Pulse 74 09/11/24 07:14 Resp 20 09/11/24 07:14 BP 121/80 09/11/24 07:14 Pulse Ox 93 L 09/11/24 11:21 O2 Del Method Room Air 09/11/24 11:21 O2 Flow Rate 2 09/11/24 07:14 Documenting provider has reviewed patient's vital signs: yes Common normals: no apparent distress and oriented x3 General appearance: cooperative Respiratory Common normals: normal respiratory effort and clear to auscultation bilaterally Effort & inspection: able to speak in complete sentences Auscultation: clear to auscultation bilaterally Cardio Common normals: regular rate, S1 normal heart sound and S2 normal heart sound Rate: regular rate Heart sounds: S1 normal and S2 normal GI Common normals: Normal to inspection, nondistended, normoactive bowel sounds present, soft to palpation, non-tender and no hepatosplenomegaly Palpation: soft and no hepatosplenomegaly Extremity Common normals: no clubbing, cyanosis or edema Right lower extremity: knee joint Right knee: ROM (restricted ) Left lower extremity: knee joint Left knee: ROM (restricted) Neuro Common normals: oriented x3, moves all extremities and no focal motor deficits Psych Common normals: mental status grossly normal, denies hallucinations, denies homicidal ideation and denies suicidal ideation Internal Medicine - PN: Obj Da Labs Labs: Laboratory Results - last 24 hr 09/11/24 05:52 WBC 4.7 RBC 4.31 Hgb 11.8 L Hct 37.2 MCV 86.3 MCH 27.4 MCHC 31.7 RDW 13.4 Plt Count 178 MPV 10.2 Neut % (Auto) 56.4 Lymph % (Auto) 21.0 Harper % (Auto) 13.9 H Eos % (Auto) 7.7 H Baso % (Auto) 0.6 Neut # (Auto) 2.6 Lymph # (Auto) 1.0 L Harper # (Auto) 0.7 Eos # (Auto) 0.4 Baso # (Auto) 0.0 Abs Immat Gran (auto) 0.02 Imm/Tot Granulo (auto) 0.4 Sodium 141 Potassium 3.8 Chloride 103 Carbon Dioxide 30.6 Anion Gap 11.2 BUN 8.0 Creatinine 0.61 Est GFR ( Amer) >60 Est GFR (Non-Af Amer) >60 BUN/Creatinine Ratio 13.1 Glucose 105 Calcium 8.4 L Urinary Catheter Management Urinary Catheter Management Pure Wick: Cath placed during this visit: no
--- NOTE | 2024-09-11 12:21 | XR_ITS ---
The [address] [address] Patient Name: INDERJIT MANN MRN: [id number] date: 1955 Sex: F Assigned Patient Location: [place] Current Patient Location: [place] Accession/Order Number: [id number] Exam Date: 09/11/2024 13:05 Report Date: 09/11/2024 15:37 At the request of: SHAIKH TIAGO Procedure: XR knee JI 2V EXAM: XR knee JI 2V HISTORY: Knee pain. COMPARISON: None. TECHNIQUE: Routine views of the bilateral knees were obtained. FINDINGS/IMPRESSION: 1. There is no acute fracture or subluxation. 2. There is severe bilateral tricompartmental osteoarthritis as demonstrated by joint space narrowing and marginal spurring along with spurring of the tibial spines. 3. I do not see obvious joint effusion. Electronically authenticated by: OMAR WRIGHT Date: 09/11/2024 15:37
[2024-09-11] MEDS: PREGABALIN 50 MG CAPSULE PO ×2 (13:47→21:22)
[2024-09-11] MEDS: ENOXAPARIN SODIUM 40 MG/0.4 ML SYRINGE SUBQ (16:54)
[2024-09-11] MEDS: DOCUSATE SODIUM 100 MG CAPSULE 200 MG PO (21:21)
[2024-09-11] MEDS: ATENOLOL 25 MG TABLET PO (21:22)
[2024-09-11] MEDS: CIPROFLOXACIN HCL 500 MG TABLET PO (21:22)
[2024-09-11] MEDS: ALPRAZOLAM 1 MG TABLET PO (21:24)
[2024-09-12] VITALS (8 sets, daily range): BP systolic 106–134; BP diastolic 68–76; PULSE 77–83; TEMP 36.4–36.8; O2SAT 91–95
[2024-09-12] MEDS: PREGABALIN 50 MG CAPSULE PO ×3 (05:07→21:07)
[2024-09-12] MEDS: DOCUSATE SODIUM 100 MG CAPSULE 200 MG PO (08:09)
[2024-09-12] MEDS: CIPROFLOXACIN HCL 500 MG TABLET PO ×2 (08:09→20:32)
[2024-09-12] MEDS: ATENOLOL 50 MG TABLET PO (08:09)
[2024-09-12] MEDS: POLYETHYLENE GLYCOL 3350 17 GM POWDER PACKET PO (08:09)
--- NOTE | 2024-09-12 10:03 | P.IMPN_ITS ---
Progress Note: A&P Assessment and Plan (1) Acute bilateral knee pain: Assessment and Plan: Has chronic pain and restricted mobility from longstanding hx of arthritis but acutely worsened since fall. XR shows severe b/l arthritis. Pain is reasonably controlled but patient unable to ambulate PT/OT eval. C/w pain control (2) Inability to walk: Assessment and Plan: Due to severe b/l knee arthritis. Pain control, PT/OT eval. (3) Contusion of right shoulder: Assessment and Plan: No acute finding on XR. Qualifiers: Encounter type: initial encounter Qualified Code(s): S40.011A - Contusion of right shoulder, initial encounter (4) Contusion of lower extremity: Assessment and Plan: No acute fx on XR. Severe b/l knee arthritis. Qualifiers: Encounter type: initial encounter Laterality: unspecified laterality Qualified Code(s): S80.10XA - Contusion of unspecified lower leg, initial encounter (5) Fall: Assessment and Plan: PT/OT eval. Awaiting precert for rehab Qualifiers: Encounter type: initial encounter Qualified Code(s): W19.XXXA - Unsp ecified fall, initial encounter (6) UTI (urinary tract infection): Assessment and Plan: On oral Cipro. Qualifiers: Hematuria presence: without hematuria Urinary tract infection type: acute cystitis Qualified Code(s): N30.00 - Acute cystitis without hematuria (7) Weakness: Assessment and Plan: PT/OT eval. Awaiting precert for rehab (8) Tachycardia: Assessment and Plan: Atrial tachycarida, on Atneolol for it. (9) Constipation by delayed colonic transit: Assessment and Plan: On Colace/miralax. (10) Elevated LFTs: Assessment and Plan: Likely ROMERO (11) Obesity: Assessment and Plan: Recommended weight loss as it will also help with Knee pain Qualifiers: Obesity type: due to excess calories Obesity classification: adult class 2 (BMI 35 - 39.9) Serious obesity comorbidity presence: without serious comorbidity Body mass index: BMI 36.0-36.9 Qualified Code(s): E66.812 - Obesity, class 2; E66.09 - Other obesity due to excess calories; Z68.36 - Body mass index [BMI] 36.0-36.9, adult (12) Nocturnal hypoxia: Assessment and Plan: Likely undiagnosed DENISSE. No resp symptoms Internal Medicine - PN: Subj Subjective Interval history: Seen and examined. A little better. Still unable to move due to severe b/l knee pain. No events. Exam Constitutional Vital Signs, click to edit/add: Last Vital Signs Temp 98.2 F 09/12/24 06:05 Pulse 79 09/12/24 06:05 Resp 18 09/12/24 06:05 BP 128/76 09/12/24 06:05 Pulse Ox 91 L 09/12/24 06:05 O2 Del Method Room Air 09/12/24 06:05 O2 Flow Rate 2 09/11/24 07:14 Documenting provider has reviewed patient's vital signs: yes Common normals: no apparent distress and oriented x3 General appearance: cooperative Respiratory Common normals: normal respiratory effort and clear to auscultation bilaterally Effort & inspection: able to speak in complete sentences Auscultation: clear to auscultation bilaterally Cardio Common normals: regular rate, S1 normal heart sound and S2 normal heart sound Rate: regular rate Heart sounds: S1 normal and S2 normal Extremity Common normals: no clubbing, cyanosis or edema Right lower extremity: knee joint Right knee: ROM (restricted ) Left lower extremity: knee joint Left knee: ROM (restricted) Neuro Common normals: oriented x3, moves all extremities and no focal motor deficits Psych Common normals: mental status grossly normal, denies hallucinations, denies homicidal ideation and denies suicidal ideation Urinary Catheter Management Urinary Catheter Management Pure Wick: Cath placed during this visit: no
[2024-09-12] MEDS: ENOXAPARIN SODIUM 40 MG/0.4 ML SYRINGE SUBQ (16:30)
[2024-09-12] MEDS: ATENOLOL 25 MG TABLET PO (20:32)
[2024-09-12] MEDS: ALPRAZOLAM 1 MG TABLET PO (20:32)
[2024-09-13] MEDS: PREGABALIN 50 MG CAPSULE PO ×3 (04:39→21:19)
[2024-09-13 04:53] VITALS: BP 117/72; PULSE 78; TEMP 36.6; O2SAT 94
[2024-09-13] MEDS: CIPROFLOXACIN HCL 500 MG TABLET PO ×2 (09:37→21:19)
[2024-09-13] MEDS: ATENOLOL 50 MG TABLET PO (09:37)
--- NOTE | 2024-09-13 09:43 | CM.NOTE ---
Rounds made with Dr. Whyte. No changes to plan of care. Await precert for SNF.
--- NOTE | 2024-09-13 10:38 | REH.PTDLY ---
Physical Therapy Daily Note PT Daily Note/Assess Start: 09/10/24 10:33 Freq: Status: Active Protocol: Document 09/13/24 10:32 HUSSEIN (Rec: 09/13/24 10:38 HUSSEIN No Response) Physical Therapy Daily Note/Assessment Time In 10:10 Time Out 10:25 Subjective Pt up in chair upon arrrival, states she has been sitting up since about 7:30 and wants to go back to bed as chair is getting really uncomfortable to LB. Pt has eusebia and plates in back from old surgery. Therapeutic Exercise Minutes (minutes) 6 Therapeutic Exercise Units 0 Therapeutic Exercise Treatment Instructed in B LE seated exs 15x ea for improved mobility and strength. Pt struggles to complete full knee extension with LAQ. Discomfort noted at end ranges of knee flexion/ext . Therapeutic Activity Minutes (minutes) 8 Therapeutic Activity Units 1 Therapeutic Activity Comments Cues with sit to stand transfers, pt attempted 2x on own to stand from chair. Pt requires Min A to stand up, cues for pt to grab onto RW once upright. Pt is very hesitant and afraid, stating ' I can't'. in room as well and walks over to stand next go patient for comfort. Pt pivots to bed taking small steps and forward flexed posture pushing RW CGA x2. Cues needed when sitting back to reach for bed. Total Therapy Minutes 14 Total Physical Therapy Units 1 Daily Note Summary Pt is very apprehensive with transfers and gait due to fear of falling again. Pt rates knee pain of 6/10 when up and moving in Gilles knees. Pt will require rehab upon DC to gain strength and confidence again to be able to perform daily activities ind, as she is unable to at this time.
--- NOTE | 2024-09-13 10:44 | SWNOTE1 ---
SW spoke to pt and in room. Precert is still pending. Pt's voiced that he went online on pt's insurance and he could see that it was still in review. SW spoke to them about rescheduling appointment with ortho that was supposed to be tomorrow. They are in agreement. E[facility] called and re-scheduled pt's appointment with Dr. Kwong (ortho) for 10/12/24 at 1:30. SW notified pt and and provided them with a paper that said the date and time. Pt is working on getting her absentee ballot submitted.
--- NOTE | 2024-09-13 10:50 | SWNOTE1 ---
SW sent PT from Friday and today, OT from today, vitals, and physician note yesterday to [facility] for precert.
[2024-09-13 11:57] VITALS: O2SAT 92
[2024-09-13 11:59] VITALS: BP 110/75; PULSE 78; TEMP 36.6; O2SAT 92
--- NOTE | 2024-09-13 12:38 | SWNOTE1 ---
ELLY called over to [facility] and spoke to Adriana about the precert. She was going to check with Truman and have Truman call ELLY back.
[2024-09-13] MEDS: ALPRAZOLAM 1 MG TABLET PO ×2 (13:22→21:19)
--- NOTE | 2024-09-13 14:05 | PM.IMPN1 ---
Progress Note: A&P Assessment and Plan (1) Acute bilateral knee pain: Assessment and Plan: Pain is reasonably controlled. But limited mobility. Awaiting precert to rehab (2) Inability to walk: Assessment and Plan: Due to severe b/l knee arthritis. Pain is well controlled. Participating in PT, limited mobility. Awaiting precert to rehab. (3) Contusion of right shoulder: Assessment and Plan: No acute finding on XR. Qualifiers: Encounter type: initial encounter Qualified Code(s): S40.011A - Contusion of right shoulder, initial encounter (4) Contusion of lower extremity: Assessment and Plan: Severe b/l knee arthritis on XR. Qualifiers: Encounter type: initial encounter Laterality: unspecified laterality Qualified Code(s): S80.10XA - Contusion of unspecified lower leg, initial encounter (5) Fall: Assessment and Plan: PT/OT eval. Awaiting precert for rehab Qualifiers: Encounter type: initial encounter Qualified Code(s): W19.XXXA - Unspecified fall, initial encounter (6) UTI (urinary tract infection): Assessment and Plan: On oral Cipro. Qualifiers: Hematuria presence: without hematuria Urinary tract infection type: acute cystitis Qualified Code(s): N30.00 - Acute cystitis without hematuria (7) Weakness: Assessment and Plan: PT/OT eval. Awaiting precert for rehab (8) Tachycardia: Assessment and Plan: Atrial tachycarida, on Atneolol for it. (9) Constipation by delayed colonic transit: Assessment and Plan: On Colace/miralax. (10) Elevated LFTs: Assessment and Plan: Likely ROMERO, no acute finding on US. (11) Obesity: Assessment and Plan: Recommended weight loss as it will also help with Knee pain Qualifiers: Obesity type: due to excess calories Obesity classification: adult class 2 (BMI 35 - 39.9) Serious obesity comorbidity presence: without serious comorbidity Body mass index: BMI 36.0-36.9 Qualified Code(s): E66.812 - Obesity, class 2; E66.09 - Other obesity due to excess calories; Z68.36 - Body mass index [BMI] 36.0-36.9, adult (12) Nocturnal hypoxia: Assessment and Plan: Likely undiagnosed DENISSE. No resp symptoms Internal Medicine - PN: Subj Subjective Interval history: Seen and examined. No overnight events. Limited mobility. Can move from bed to recliner. Exam Constitutional Vital Signs, click to edit/add: Last Vital Signs Temp 97.8 F 09/13/24 11:59 Pulse 78 09/13/24 11:59 Resp 18 09/13/24 11:59 BP 110/75 09/13/24 11:59 Pulse Ox 92 L 09/13/24 11:59 O2 Del Method Room Air 09/13/24 11:59 O2 Flow Rate 2 09/11/24 07:14 Documenting provider has reviewed patient's vital signs: yes Common normals: no apparent distress and oriented x3 General appearance: cooperative Respiratory Common normals: normal respiratory effort and clear to auscultation bilaterally Effort & inspection: able to speak in complete sentences Auscultation: clear to auscultation bilaterally Cardio Common normals: regular rate, S1 normal heart sound and S2 normal heart sound Rate: regular rate Heart sounds: S1 normal and S2 normal Extremity Common normals: no clubbing, cyanosis or edema Right lower extremity: knee joint Right knee: ROM (restricted ) Left lower extremity: knee joint Left knee: ROM (restricted) Neuro Common normals: oriented x3, moves all extremities and no focal motor deficits Psych Common normals: mental status grossly normal, denies hallucinations, denies homicidal ideation and denies suicidal ideation Urinary Catheter Management Urinary Catheter Management Pure Wick: Cath placed during this visit: no
--- NOTE | 2024-09-13 14:15 | SWNOTE1 ---
ELLY spoke to Truman at [facility]. Pt's insurance did approve her. The issues is bed availability at the [facility]. The room pt was going in to, the resident at [facility] appealed her discharge and won so she is not leaving today. They possibly have a semi-private room, but waiting for a family to call them back in regards to transitioning them in to the semi-private. They have another discharge tomorrow. If the other family is taking the semi-private then pt can't come until tomorrow when the room is open. SW to let pt know. ELLY notified nurse and doctor.
[2024-09-13] MEDS: ENOXAPARIN SODIUM 40 MG/0.4 ML SYRINGE SUBQ (17:29)
[2024-09-13 20:19] VITALS: O2SAT 92
[2024-09-13] MEDS: ATENOLOL 25 MG TABLET PO (21:19)
[2024-09-13 21:54] VITALS: BP 118/68; PULSE 79; TEMP 36.8; O2SAT 87
[2024-09-14] MEDS: ONDANSETRON PF 4 MG/2 ML VIAL IV (04:15)
[2024-09-14 06:00] VITALS: BP 100/65; PULSE 69; TEMP 36.3; O2SAT 91
[2024-09-14] MEDS: PREGABALIN 50 MG CAPSULE PO ×2 (06:12→14:11)
[2024-09-14 08:21] VITALS: O2SAT 93
[2024-09-14] MEDS: ATENOLOL 50 MG TABLET PO (09:02)
[2024-09-14] MEDS: CIPROFLOXACIN HCL 500 MG TABLET PO (09:02)
--- NOTE | 2024-09-14 09:30 | SWNOTE1 ---
Pt will be discharged today to [facility]. Truman at [facility] let SW know that it will be a semi-private room and they can transfer the precert to another facility if family does not want semi-private. SW explained that pt is stable for discharge and does not require any medical care at hospital and she is discharged today, therefore it will either be discharge home or to the semi-private room. SW spoke to pt and and explained the situation. They are alright with semi-private room. SW asked abotu transport and pt feels she can go by wheelchair. SW to work on transport.
--- NOTE | 2024-09-14 10:17 | CM.NOTE ---
Rounds made with Dr. Whyte pt will discharge to [facility] for skilled rehab today.
--- NOTE | 2024-09-14 11:31 | P.DS_ITS ---
DS: Providers Provider Date of admission: 09/09/24 14:15 Primary care physician: Connie Stewart MD Admitting clinician: Debbie Jeffers Attending physician on admission: Debbie Jeffers Consults: 09/09/24 13:43 Occupational Therapy Eval and Treat Routine Reason for consultation: weakness and pain Has provider been notified: No Physical Therapy Eval and Treat Routine Reason for consultation: weakness and pain Has provider been notified: No Attending physician on discharge: Shaikh Pato Discharging clinician: Shaikh Pato Anticipated date of discharge: 09/14/24 DS: Diagnosis Discharge Diagnosis (1) Acute bilateral knee pain: (2) Inability to walk: (3) Contusion of right shoulder: Qualifiers: Encounter type: initial encounter Qualified Code(s): S40.011A - Contusion of right shoulder, initial encounter (4) Contusion of lower extremity: Qualifiers: Encounter type: initial encounter Laterality: unspecified laterality Qualified Code(s): S80.10XA - Contusion of unspecified lower leg, initial encounter (5) Fall: Qualifiers: Encounter type: initial encounter Qualified Code(s): W19.XXXA - Unspecified fall, initial encounter (6) UTI (urinary tract infection): Qualifiers: Hematuria presence: without hematuria Urinary tract infection type: acute cystitis Qualified Code(s): N30.00 - Acute cystitis without hematuria (7) Weakness: (8) Tachycardia: (9) Constipation by delayed colonic transit: (10) Elevated LFTs: (11) Obesity: Qualifiers: Obesity type: due to excess calories Obesity classification: adult class 2 (BMI 35 - 39.9) Serious obesity comorbidity presence: without serious comorbidity Body mass index: BMI 36.0-36.9 Qualified Code(s): E66.812 - Obesity, class 2; E66.09 - Other obesity due to excess calories; Z68.36 - Body mass index [BMI] 36.0-36.9, adult (12) Nocturnal hypoxia: DS: Summary Hospital Course Hospital Course: 69 y.o white female with past medical history of Tachycardia, anxiety and chronic back and knee pain from severe OA presented to ED after she was unable to ambulate due to severe b/l knee pain from OA. She was at poor baseline physicial status and had limited mobility to begin with due to knee pain/arthritis but after she fell, she could not walk/bear weight and was extremely limited in terms of her ability to ambulate. No acute findings were noted on XR. She was admitted for pain control, PT/OT eval. During admission, she was noted to have nocturnal hypoxia that improved. It is felt that she may have underlying DENISSE given her BMI /neck shape. .She worked with PT/OT with gradual improvement in her pain and ability to ambulate. her pain also improved during the course of admission. However, she is still very limited in terms of ambulation and will need inpatient rehab. She was accepted for inpatient rehab and is medically stable for discharge. Status at Discharge Overall status at discharge: patient is progressing back to baseline Time Spent with Patient Time attestation: Total time spent providing and/or coordinating discharge services: Exam Constitutional Vital Signs, click to edit/add: Last Vital Signs Temp 97.4 F L 09/14/24 06:00 Pulse 69 09/14/24 06:00 Resp 18 09/14/24 07:40 BP 100/65 09/14/24 06:00 Pulse Ox 93 L 09/14/24 08:21 O2 Del Method Room Air 09/14/24 08:21 O2 Flow Rate 2 09/11/24 07:14 Documenting provider has reviewed patient's vital signs: yes Common normals: no apparent distress and oriented x3 General appearance: cooperative Respiratory Common normals: normal respiratory effort and clear to auscultation bilaterally Effort & inspection: able to speak in complete sentences Auscultation: clear to auscultation bilaterally Cardio Common normals: regular rate, S1 normal heart sound and S2 normal heart sound Rate: regular rate Heart sounds: S1 normal and S2 normal Extremity Common normals: no clubbing, cyanosis or edema Right lower extremity: knee joint Right knee: ROM (restricted ) Left lower extremity: knee joint Left knee: ROM (restricted) Neuro Common normals: oriented x3, moves all extremities and no focal motor deficits Psych Common normals: mental status grossly normal, denies hallucinations, denies homicidal ideation and denies suicidal ideation Discharge Plan Discharge Disposition: Xfer SNF Condition: Good Discharge Medications: New oxycodone-acetaminophen [Percocet] 5-325 mg tablet 1 tab PO Q6H PRN (Reason: pain) 3 Days Qty: 10 0RF Continued alprazolam 1 mg tablet 1 mg PO BID PRN (Reason: anxiety) atenolol 50 mg tablet 25 mg PO QPM Rx Instructions: 25 mg in morning 50 mg at night; atenolol 25 mg tablet 50 mg PO QAM pregabalin 50 mg capsule 50 mg PO Q8H naloxone 0.4 mg/mL solution 0.4 mg subcut Q3M PRN (Reason: opioid reversal) Qty: 10 0RF Rx Instructions: NTExceed 10 mg total dose/episode Discontinued ciprofloxacin HCl 500 mg tablet 500 mg PO Q12H Qty: 14 0RF Print Language: Macanese [employer] Instructions: Discharge to [facility] skilled Forms: Portal Instructions Follow Up Appointments: Follow up rescheduled with Dr. Kwong (Ortho) for October 12 at 1:30. [phone]
--- NOTE | 2024-09-14 11:57 | SWNOTE1 ---
Pt is discharging today. ELLY called and set up trips for 3:30-4. ELLY faxed over dc med rec to Mayra and Truman at [facility]. Pt is going there skilled. ELLY notified Zafar, nurse, and pt of time. ELLY already completd HENS.
--- NOTE | 2024-09-14 12:43 | REH.PTDLY ---
Physical Therapy Daily Note PT Daily Note/Assess Start: 09/10/24 10:33 Freq: Status: Active Protocol: Document 09/14/24 12:40 HUSSEIN (Rec: 09/14/24 12:43 [email or web address] [id number]) Physical Therapy Daily Note/Assessment Time In 12:25 Time Out 12:39 Subjective Pt not leaving until 4:00 today. Sitting up in chair upon arrival. Pt seems frustrated about situation and is afraid of needing to get knee replacements Therapeutic Exercise Minutes (minutes) 5 Therapeutic Exercise Units 0 Therapeutic Exercise Treatment Instructed in B LE seated exs 15x ea with marching, LAQ, and hip abd kicks. Standing HR performed 10x ea with fatigue and legs shaking due to weakness. Therapeutic Activity Minutes (minutes) 8 Therapeutic Activity Units 1 Therapeutic Activity Comments Sit to stand transfers performed with Min A. Pt ambulated 1 step forward and backward with UE support on RW 5x. Pt feels weak with this. Pt stood statically at RW for 1 min and then performs standing HR. Min A when sitting back in chair for safety with cues to reach back for arm of chair. Total Therapy Minutes 13 Total Physical Therapy Units 1 Daily Note Summary Progressed with steps forward/ retro today with RW, discomfort noted but pt is able to push thru better than previous date. Pt's plan is to be DC later today to [facility] for rehab to become stronger in hopes of going to see orthopedic in 1 month about knees.
[2024-09-14 14:00] VITALS: BP 109/72; PULSE 78; TEMP 36.9; O2SAT 93
== END 2024-09-14 15:53 ==
LOC: ER 13:45 → MS 14:20
PROVIDERS: Admitting Provider Family Medicine; Emergency Provider Emergency Medicine Emergency Medical Services; PCP Family Medicine; Visit Provider Internal Medicine
DX: M17.0 Bilateral primary osteoarthritis of knee (principal); R26.2 Difficulty in walking, not elsewhere classified; S40.011A Contusion of right shoulder, initial encounter; N30.00 Acute cystitis without hematuria; Z90.49 Acquired absence of other specified parts of digestive tract; Z90.710 Acquired absence of both cervix and uterus; K59.00 Constipation, unspecified; W19.XXXA Unspecified fall, initial encounter; R53.1 Weakness; R00.0 Tachycardia, unspecified; R79.89 Other specified abnormal findings of blood chemistry; M25.561 Pain in right knee; M25.562 Pain in left knee; G89.29 Other chronic pain; E66.812 Obesity, class 2; E66.09 Other obesity due to excess calories; Z68.36 Body mass index [BMI] 36.0-36.9, adult; R09.02 Hypoxemia; S80.02XA Contusion of left knee, initial encounter; S80.01XA Contusion of right knee, initial encounter; F41.9 Anxiety disorder, unspecified; M54.9 Dorsalgia, unspecified
CPT/HCPCS: 36415; 73560; 76705; 80048; 83735; 85025; 94667; 94668; 94761; 96372; 96374; 96376; 97110; 97162; 97165; 97530; 97535; 99285; G0378; J1650; J2405

== ENCOUNTER 2024-10-20 12:11 | Outpatient (OUT) | payer MEDICARE, SELFPAY ==
--- OUTSIDE RECORDS SUMMARY | 2024-10-20 12:18 | XMS_ITS | CCD ---
Author Organization [facility] Care Team Providers Care Wheat Buyer Name Role Phone Toby Quintana Unavailable Unavailable Unavailable MD Toby Quintana Primary Care Provider [phone] BladesLeeann Attending Provider Unavailable Unavailable Blades, Leeann [...] Unavailable [place], DR TOBY Schofield Admitting Unavailable [place], DR CAITLYN Noe Consulting Unavailable [place], DR [...] Unavailable MD Samuel Chatman II Attending Provider [phone] Blades, Leeann Admitting Unavailable Blades, Leeann Attending Unavailable Toby Quintana Primary Care Unavailable Samuel Chatman II Admitting Samuel Lang II Attending Toby Armijo Primary Care Unavailable Samuel Chatman II Unavailable Dr. EVIN BYERS Attending Tboy Pham Primary Care Unavaildidier Quintana, Dr. Toby [...] Sulfamethoxazole; Translations: [sulfa] Drug Allergy Rash, Swelling [address] Work Phone: (10 sources) Sulfonamides (Antibiotic); Translations: [Sulfa (Sulfonamide Antibiotics)] Allergy to substance 04-08-20 19 Hives, Rash, Swelling [facility] (20 sources) Sulfacetamide / Sulfur Drug Allergy rash [facility] [employer] Other (1 source) Morphine Drug Allergy [facility] (1 source) Quinolones (Antibiotic) Drug allergy (disorder) [facility] (2 sources) Sulfonamides (Antibiotic) Drug allergy (disorder) 08-06-20 13 [facility] (12 sources) Acetaminophen / oxyCODONE Drug Allergy 07-28-20 13 Unknown [employer] Other (12 sources) Meperidine Drug Allergy 07-28-20 13 Unknown [employer] Other (13 sources) Quinolones Drug allergy 07-28-20 13 Comment:Fluorq rennolones [employer] Other (13 sources) sulfADIAZINE Drug Allergy Unknown [employer] Other (13 sources) Substance with sulfonamide structure and antibacterial mechanism of action (substance) Drug allergy 07-28-20 13 Unknown [employer] Other (13 sources) Statins Depletion *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 Propensity to adverse reactions 07-28-20 13 Unknown [employer] Other (4 sources) Allergies Reconciled Propensity to adverse reactions Unknown [employer] Other (4 sources) patient allergy list reviewed by nurse or physicia Propensity to adverse reactions 07-15-20 Comment:Done [employer] Other (1 source) Acetaminophen / oxyCODONE Drug Allergy 07-28-20 13 Unknown [employer] Other (1 source) Meperidine Drug Allergy 07-28-20 13 Unknown [employer] Other (5 sources) Sulfacetamide Drug Allergy 12-30-19 24 [facility] Medications Current Medications Medication Drug Class(es) Dates Sig (Normalized) Sig (Original) acetaminophen 325 mg / HYDROcodone bitartrate 5 mg oral tablet (20 sources) Opioid Agonist Start: 08-31-2021 End: 12-09-2023 take 1 tablet by mouth every four hours as needed HYDROcodone-acetami nophen ([place]) 5-325 mg tablet Take 1 tablet by [...] puffs Inhalation Twice a day Active omega 9-eut-thz-fish oil 360 mg-108 mg- 180 mg-1,200 mg capsule (1 source) take 1 capsule by mouth once daily omega 9-lgv-dru-fish oil 360 mg-108 mg- 180 mg-1,200 mg [...] Active take 1 capsule by mo [facility] every six hours as needed [...] 09-12-2014 Episodic Other aftercare (1 source) Other longterm (current) drug therapy; Translations: [OTH GROUP HOME CURRENT DRUG THERAPY] Onset: 07-23-2022 Episodic [...] aPTT Coag (PPP) [Time] 23.5 s 22.3-36.2 [facility] Basophils Auto (Bld) [#/Vol] on 01-14-2024 Basophils (Bld) [#/Vol] 0.1 10 3/uL 0.0-0.1 [facility] Basophils/100 WBC Auto (Bld) on 01-14-2024 Basophils/100 WBC (Bld) 0.5 % 0.2-2.0 [facility] Eosinophils/100 WBC Auto (Bl d)on 01-14-2024 Eosinophils/100 WBC (Bld) 1.3 % 0.9-7.0 [facility] Erythrocyte distribution wid th Auto (RBC) [Ratio]on 01-14-2024 Erythrocyte distribution width (RBC) [Ratio] 13.6 % 11.0-15.0 [facility] Estimated glomerular filtrat ion rate (GFR) non- Americanon 01-14-2024 GFR/1.73 sq M.predicted among non-blacks MDRD (S/P/Bld) [Vol rate/Area] mL/min/{1.73_m2} >=60 [facility] Fibrin D-dimer [Presence] in Platelet poor plasma by Latex agglutinationon 01-14-2024 Fibrin D-dimer LA Ql (PPP) 0.78 mg/L FEU <=0.59 [facility] Comment on above: RESULTS CALLED TO [...] on 01-14-2024 Globulin (S) [Mass/Vol] 3.9 g/dL [facility] Hematocrit Auto (Bld) [Volum e fraction]on 01-14-2024 Hematocrit (Bld) [Volume fraction] 44.4 % 36.0-48.0 [facility] Hemoglobin [Mass/volume] in Bloodon 01-14-2024 Hemoglobin (Bld) [Mass/Vol] 14.1 g/dL 12.0-16.0 [facility] INR in Platelet poor plasma by Coagulation assayon 01-14-2024 INR Coag (PPP) [Relative time] {INR} [facility] Comment on above: DESIRED INR:2.0-3.0 CONDITIONS NOT LISTED BELOW2.5-3.5 FOR PROSTHETIC HEART VALVE REPLACEMENT2.5-3.5 RECURRENT THROMBOSIS Laboratory - Chemistry and C hemistry - challengeon 01-14-2024 Albumin [Mass/Vol] 2.9 g/dL 3.4-5.0 [facility] ALP [Catalytic activity/Vol] 126 U/L 46-116 [facility] ALT [Catalytic activity/Vol] 36 U/L 14-59 [facility] AST [Catalytic activity/Vol] 24 U/L 15-37 [facility] Bilirubin [Mass/Vol] 0.4 mg/dL 0.2-1.0 [facility] Calcium [Mass/Vol] 8.7 mg/dL 8.5-10.1 [facility] Chloride [Moles/Vol] 109 mmol/L 98-107 [facility] CO2 [Moles/Vol] 30.5 mmol/L 21.0-32.0 [facility] Creatinine [Mass/Vol] 0.77 mg/dL 0.55-1.02 [facility] GFR/1.73 sq M.predicted MDRD (S/P/Bld) [Vol rate/Area] mL/min/{1.73_m2} >=60 [facility] Glucose [Mass/Vol] 108 mg/dL 74-106 [facility] Natriuretic peptide B (Bld) [Mass/Vol] 210.0 pg/mL <=900.0 [facility] Potassium [Moles/Vol] 4.0 mmol/L 3.5-5.1 [facility] Protein [Mass/Vol] 6.8 g/dL 6.4-8.2 [facility] Sodium [Moles/Vol] 141 mmol/L 136-145 [facility] Urea nitrogen [Mass/Vol] 10.0 mg/dL 7.0-18.0 [facility] Urea nitrogen/Creatinine [Mass ratio] 13.0 mg/mg [facility] Laboratory - Hematology and Cell countson 01-14-2024 Immature granulocytes/100 WBC (Bld) 0.3 % 0.0-0.5 [facility] Laboratory - Microbiology an d Antimicrobial susceptibilityon 01-14-2024 SARS-CoV-2 (COVID-19) RNA DAVID+probe Ql (Unsp spec) Negative NEGATIVE [facility] Comment on above: This test has [...] Auto (Bld) [#/Vol] 9.2 10 3/uL 4.0-11.0 [facility] Lymphocytes Auto (Bld) [#/Vo l]on 01-14-2024 Lymphocytes (Bld) [#/Vol] 1.9 10 3/uL 1.2-3.8 [facility] Lymphocytes/100 WBC Auto (Bl d)on 01-14-2024 Lymphocytes/100 WBC (Bld) 20.3 % 20.5-60.0 [facility] MCH Auto (RBC) [Entitic mass ]on 01-14-2024 MCH (RBC) [Entitic mass] 28.4 pg 26.7-34.0 [facility] MCHC Auto (RBC) [Mass/Vol]on 01-14-2024 MCHC (RBC) [Mass/Vol] 31.8 g/dL 29.9-35.2 [facility] MCV Auto (RBC) [Entitic vol] on 01-14-2024 MCV (RBC) [Entitic vol] 89.5 fL 81.0-99.0 [facility] Monocytes Auto (Bld) [#/Vol] on 01-14-2024 Monocytes (Bld) [#/Vol] 0.8 10 3/uL 0.3-0.8 [facility] Monocytes/100 WBC Auto (Bld) on 01-14-2024 Monocytes/100 WBC (Bld) 8.5 % 1.7-12.0 [facility] Neutrophils Auto (Bld) [#/Vo l]on 01-14-2024 Neutrophils (Bld) [#/Vol] 6.3 10 3/uL 1.4-6.5 [facility] Neutrophils/100 WBC Auto (Bl d)on 01-14-2024 Neutrophils/100 WBC (Bld) 69.1 % 43.0-75.0 [facility] No Panel Informationon 01-13 Troponin I High Sensitivity 6.8 pg/mL 4.0-51.3 [facility] Comment on above: CUT-OFF POINTS HAVE [...] INFORMATION. Bedside Influenza Type A Antigen Negative [facility] Comment on above: Negative for Flu A p rotein antigen. Infection due to Flu Acannot be ruled out. Flu A antigen in the sample may bebelow the detection limit of the test. Bedside Influenza Type B Antigen Negative [facility] Comment on above: Negative for Flu B p rotein antigen. Infection due to Flu Bcannot be ruled out. Flu B antigen in the sample may bebelow the detection limit of the test. Eosinophils # (Auto) 0.1 10 3/uL 0.0-0.7 [facility] Immature Granulocyte # (Auto) 0.03 10 3/uL 0.00-0.03 [facility] Platelet mean volume Auto (B ld) [Entitic vol]on 01-14-2024 Platelet mean volume (Bld) [Entitic vol] 9.4 fL 9.5-13.5 [facility] Platelets Auto (Bld) [#/Vol] on 01-14-2024 Platelets (Bld) [#/Vol] 238 10 3/uL 150-450 [facility] Prothrombin time (PT)on PT Coag (PPP) [Time] 9.3 s 9.0-11.6 [facility] RBC Auto (Bld) [#/Vol]on RBC (Bld) [#/Vol] 4.96 10 6/uL 4.20-5.40 [facility] Serum or plasma albumin/glob ulin mass ratioon 01-14-2024 Albumin/Globulin [Mass ratio] 0.7 {ratio} [facility] Serum or plasma anion gap de terminationon 01-14-2024 Anion gap [Moles/Vol] 5.5 mmol/L [facility] Basophils Auto (Bld) [#/Vol] on 12-30-2023 Basophils (Bld) [#/Vol] 0.1 10 3/uL 0.0-0.1 [facility] Basophils/100 WBC Auto (Bld) on 12-30-2023 Basophils/100 WBC (Bld) 0.6 % 0.2-2.0 [facility] Cholesterol in LDL Calc [Mas s/Vol]on 12-30-2023 Cholesterol in LDL [Mass/Vol] 149.0 mg/dL [facility] Comment on above: <100 mg/dl [id number] 0-129 mg/dl NEAR OR ABOVE TKRLRMH691-739 mg/dl BORDERLINE [id number] mg/dl HIGH>190 mg/dl VERY HIGH Cholesterol in VLDL Calc [Ma ss/Vol]on 12-30-2023 Cholesterol in VLDL [Mass/Vol] 18.6 mg/dL [facility] Eosinophils/100 WBC Auto (Bl d)on 12-30-2023 Eosinophils/100 WBC (Bld) 1.8 % 0.9-7.0 [facility] Erythrocyte distribution wid th Auto (RBC) [Ratio]on 12-30-2023 Erythrocyte distribution width (RBC) [Ratio] 13.2 % 11.0-15.0 [facility] Estimated glomerular filtrat ion rate (GFR) non- Americanon 12-30-2023 GFR/1.73 sq M.predicted among non-blacks MDRD (S/P/Bld) [Vol rate/Area] mL/min/{1.73_m2} >=60 [facility] Globulin Calc (S) [Mass/Vol] on 12-30-2023 Globulin (S) [Mass/Vol] 3.8 g/dL [facility] Hematocrit Auto (Bld) [Volum e fraction]on 12-30-2023 Hematocrit (Bld) [Volume fraction] 46.8 % 36.0-48.0 [facility] Hemoglobin [Mass/volume] in Bloodon 12-30-2023 Hemoglobin (Bld) [Mass/Vol] 14.7 g/dL 12.0-16.0 [facility] Laboratory - Chemistry and C hemistry - challengeon 12-30-2023 Albumin [Mass/Vol] 3.0 g/dL 3.4-5.0 [facility] ALP [Catalytic activity/Vol] 88 U/L 46-116 [facility] ALT [Catalytic activity/Vol] 23 U/L 14-59 [facility] AST [Catalytic activity/Vol] 20 U/L 15-37 [facility] Bilirubin [Mass/Vol] 0.5 mg/dL 0.2-1.0 [facility] Calcium [Mass/Vol] 9.2 mg/dL 8.5-10.1 [facility] Chloride [Moles/Vol] 107 mmol/L 98-107 [facility] Cholesterol [Mass/Vol] 224 mg/dL <=200 [facility] Cholesterol in HDL [Mass/Vol] 57 mg/dL 40-60 [facility] Comment on above: > or =60 mg/dl - LOW CARDIOVASCULAR RISK<40 mg/dl - HIGH CARDIOVASCULAR RISK CO2 [Moles/Vol] 31.1 mmol/L 21.0-32.0 [facility] Creatinine [Mass/Vol] 0.72 mg/dL 0.55-1.02 [facility] GFR/1.73 sq M.predicted MDRD (S/P/Bld) [Vol rate/Area] mL/min/{1.73_m2} >=60 [facility] Glucose [Mass/Vol] 100 mg/dL 74-106 [facility] Potassium [Moles/Vol] 4.5 mmol/L 3.5-5.1 [facility] Protein [Mass/Vol] 6.8 g/dL 6.4-8.2 [facility] Sodium [Moles/Vol] 145 mmol/L 136-145 [facility] Triglyceride [Mass/Vol] 93 mg/dL <=150 [facility] TSH Qn 2.655 m[IU]/L 0.358-3.740 [facility] Urea nitrogen [Mass/Vol] 9.0 mg/dL 7.0-18.0 [facility] Urea nitrogen/Creatinine [Mass ratio] 12.5 mg/mg [facility] Laboratory - Hematology and Cell countson 12-30-2023 Immature granulocytes/100 WBC (Bld) 0.2 % 0.0-0.5 [facility] Leukocytes [#/volume] correc wanda for nucleated erythrocytes in Blood by Automated counon 12-30-2023 WBC corrected for nucl RBC Auto (Bld) [#/Vol] 8.7 10 3/uL 4.0-11.0 [facility] Lymphocytes Auto (Bld) [#/Vo l]on 12-30-2023 Lymphocytes (Bld) [#/Vol] 1.8 10 3/uL 1.2-3.8 [facility] Lymphocytes/100 WBC Auto (Bl d)on 12-30-2023 Lymphocytes/100 WBC (Bld) 20.4 % 20.5-60.0 [facility] MCH Auto (RBC) [Entitic mass ]on 12-30-2023 MCH (RBC) [Entitic mass] 28.6 pg 26.7-34.0 [facility] MCHC Auto (RBC) [Mass/Vol]on 12-30-2023 MCHC (RBC) [Mass/Vol] 31.4 g/dL 29.9-35.2 [facility] MCV Auto (RBC) [Entitic vol] on 12-30-2023 MCV (RBC) [Entitic vol] 91.1 fL 81.0-99.0 [facility] Monocytes Auto (Bld) [#/Vol] on 12-30-2023 Monocytes (Bld) [#/Vol] 0.7 10 3/uL 0.3-0.8 [facility] Monocytes/100 WBC Auto (Bld) on 12-30-2023 Monocytes/100 WBC (Bld) 7.5 % 1.7-12.0 [facility] Neutrophils Auto (Bld) [#/Vo l]on 12-30-2023 Neutrophils (Bld) [#/Vol] 6.0 10 3/uL 1.4-6.5 [facility] Neutrophils/100 WBC Auto (Bl d)on 12-30-2023 Neutrophils/100 WBC (Bld) 69.5 % 43.0-75.0 [facility] No Panel Informationon 12-30 Eosinophils # (Auto) 0.2 10 3/uL 0.0-0.7 [facility] Immature Granulocyte # (Auto) 0.02 10 3/uL 0.00-0.03 [facility] Platelet mean volume Auto (B ld) [Entitic vol]on 12-30-2023 Platelet mean volume (Bld) [Entitic vol] 9.3 fL 9.5-13.5 [facility] Platelets Auto (Bld) [#/Vol] on 12-30-2023 Platelets (Bld) [#/Vol] 199 10 3/uL 150-450 [facility] RBC Auto (Bld) [#/Vol]on RBC (Bld) [#/Vol] 5.14 10 6/uL 4.20-5.40 [facility] Serum or plasma albumin/glob ulin mass ratioon 12-30-2023 Albumin/Globulin [Mass ratio] 0.8 {ratio} [facility] Serum or plasma anion gap de terminationon 12-30-2023 Anion gap [Moles/Vol] 11.4 mmol/L [facility] Serum or plasma total choles terol/high density lipoprotein (HDL) cholesterol mass la 12-30-2023 Cholesterol.total/Ch olesterol in HDL [Mass ratio] 3.9 {ratio} [facility] Comment on above: 3.3 - 4.4 LOW RISK4. 4 - 7.1 AVERAGE RISK7.1 - 11.0 MODERATE RISK>11.0 HIGH RISK XR hip LT min 2V(w/wo pelvis )*on 01-08-2023 XR hip LT min 2V(w/wo pelvis)* [facility] Main [address] [address] XRay Report Signed Patient: Adriana Dinero I MR#: [id number] 056 : 1955 Acct:[id number] Age/Sex: 67 / F ADM Date: 01/08/23 [...] Pop Jr., D.O.01/08/2023 1:22 PM Dictation Location: [place] [address] Transcribed By: [facility] 01/08/23 1322 Dictated By: Montana Pop Jr, DO 01/08/23 1321 Signed By: 01/08/23 1322 Normal [facility] XR hip LT min 2V(w/wo pelvis)* [facility] [employer] Other XR hip LT min 2V(w/wo pelvis)* [facility] [employer] Other XR hip LT min 2V(w/wo pelvis)* [address] [place] [address] [employer] Other XR hip LT min 2V(w/wo pelvis)* [place] [address] [employer] Other XR hip LT min 2V(w/wo pelvis)* XRay Report [employer] Other XR hip LT min 2V(w/wo pelvis)* Signed [employer] Other XR hip LT min 2V(w/wo pelvis)* Patient: Adriana Dinero I MR#: [id number] [facility] [employer] Other XR hip LT min 2V(w/wo pelvis)* 056 [employer] Other XR hip LT min 2V(w/wo pelvis)* : 1955 Acct:[id number] [employer] Other XR hip LT min 2V(w/wo pelvis)* Age/Sex: 67 / F ADM Date: 01/08/23 [employer] Other XR hip LT min 2V(w/wo pelvis)* [place] [facility] [place]: Type: [facility] [employer] Other XR hip LT min 2V(w/wo pelvis)* Attending Dr: Samuel Chatman II, MD [employer] Other XR hip LT min 2V(w/wo pelvis)* Copies to: Samuel Chatman MD [employer] Other XR hip LT min 2V(w/wo pelvis)* Ordering Provider: Samuel Chatman MD [employer] Other XR hip LT min 2V(w/wo pelvis)* Date of Service: 01/08/23 [employer] Other XR hip LT min 2V(w/wo pelvis)* XR/XR hip LT min 2V(w/wo pelvis)*: Left hip pain [employer] Other XR hip LT min 2V(w/wo pelvis)* LEFT HIP - 2 views: [employer] Other XR hip LT min 2V(w/wo pelvis)* CLINICAL HISTORY: Left hip pain for months. [employer] Other XR hip LT min 2V(w/wo pelvis)* COMPARISON: Hip series 11/22/2022 [employer] Other XR hip LT min 2V(w/wo pelvis)* FINDINGS: Mild degenerative changes of both hips without acute bony process. [employer] Other XR hip LT min 2V(w/wo pelvis)* XR/XR hip LT min 2V(w/wo pelvis)* [employer] Other XR hip LT min 2V(w/wo pelvis)* IMPRESSION: [employer] Other XR hip LT min 2V(w/wo pelvis)* MILD DEGENERATIVE CHANGES OF BOTH HIPS WITHOUT ACUTE BONY PROCESS.. [employer] Other XR hip LT min 2V(w/wo pelvis)* Impression dictated by: Montana Pop Jr., D.OOdessa01/08/2023 1:22 PM [employer] Other XR hip LT min 2V(w/wo pelvis)* Dictation Location: [place] [address] [employer] Other XR hip LT min 2V(w/wo pelvis)* Transcribed By: VALERIE 01/08/23 [facility] [employer] Other XR hip LT min 2V(w/wo pelvis)* Dictated By: Montana Pop Jr, DO 01/08/23 [facility] [employer] Other XR hip LT min 2V(w/wo pelvis)* Signed By: [employer] Other XR hip LT min 2V(w/wo pelvis)* 01/08/23 [facility] [employer] Other Office Visit (Cardiology)on 12-09-2022 Follow-up visit [...] Former smoker Tobacco Use Screening; Status:Complete; Done: [id number] Patient Instructions Please bring all medicines, vitamins, [...] and provided the patient with 2 local electrical controls technician in [facility]. ASSESSMENT AND PLAN: 1. Supraventricular tachycardia, [...] follow-up will be scheduled Iban Lu MD, [facility] Surgical History Problems History of Back [...] Recorded: 09Dec2022 01:25PM Heart Rate78, L Radial Zkmfqkht881, LUE, Sitting Dcogdwaew60, LUE, Sitting Height5 ft 6 in Ktthjw015 lb BMI Rtcokcozav52.03 kg/m2 BSA Calculated2.19 Tobacco Useb) No PHQ-2 [...] Dec 09 2022 2:09PM EST (Author) Normal [facility] Tobacco Screening.on 023 Fall risk assessment b) One or more fall s in the last year -[facility] [place] 250 DO Work Phone: Tobacco use status [facility] b) No [facility] 250 DO Work Phone: Tobacco Screening. Yes [facility] 250 DO Work Phone: XR hip BI w [id number] 11-22-19 XR hip BI w [id number] [facility] Main [address] [address] XRay Report Signed Patient: Adriana Dinero I MR#: [id number] 056 : 1955 Acct:[id number] Age/Sex: 67 / F ADM Date: 11/22/22 [...] Pop Jr., D.O.11/22/2022 1:12 PM Dictation Location: [place] [address] Transcribed By: [facility] 11/22/22 1312 Dictated By: Montana Pop Jr, DO 11/22/22 1311 Signed By: 11/22/22 1312 Normal [facility] XR lumbar spine AP/LAT/FLX/E XTon 11-22-2022 XR lumbar spine AP/LAT/FLX/EXT [address] [address] XRay Report Signed Patient: Adriana Dinero I MR#: [id number] 056 : 1955 Acct:[id number] Age/Sex: 67 / F ADM Date: 11/22/22 [...] Pop Jr., D.O.11/22/2022 1:11 PM Dictation Location: [place] [address] Transcribed By: [facility] 11/22/22 1311 Dictated By: Montana Pop Jr, DO 11/22/22 1309 Signed By: 11/22/22 1311 Normal [facility] CREATININEon 10-04-2022 Creatinine [Mass/Vol] 0.75 mg/dL Normal 0.55-1.02 [facility] Comment on above: Performed By: #### C CARLOS #### [facility] [address] [place] [address] [address] Henrietta Zavala EGFR-AF PUERTO RICAN >60 Normal >=60 [facility] Comment on above: Performed By: #### C CARLOS #### [facility] [address] [place] [address] [address] Henrietta Zavala EGFR-NON AF PUERTO RICAN >60 Normal >=60 [facility] Comment on above: Performed By: #### C CARLOS #### [facility] [address] [place] [address] Dr. Henrietta Zavala MRI LSPINE WO W [...] SHALA OMER Date: 2022-10-04 11:19 Normal [facility] Covid-19 PCR (CVDTB)on 07-11 SARS-CoV-2 (COVID-19) RNA DAVID+probe Ql (Unsp spec) Not detected Normal NOT DETECTED [facility] Comment on above: Result Comment: This test is not yet approved or cleared by the [place] FDA. When there are no FDA-approved or cleared tests available, and other criteria are met, FDA can make tests available under an emergency access mechanism called an Emergency Use Authorization (EUA). The EUA for this test is supported by the Atm Servicer of Health and Human Service's (HHS's) declaration [...] consistent with SARS-CoV-2. Performed By: #### [facility] #### [facility] [address] [place] [address] Dr. Henrietta Zavala XR HIPS JI 3_4V [...] CAITLYN CABRERA Date: 2022-04-15 07:00 Normal [facility] XR TSPINE 3 VIEWSon 04-15-20 [...] CAITLYN CABRERA Date: 2022-04-15 07:03 Normal [facility] CBC AUTO DIFFon 04-12-2022 BASO # 0.1 103/ul Normal 0.0-0.1 [facility] Comment on above: Performed By: #### C BC #### [facility] [address] [place] [address] Dr. Henrietta Zavala Basophils/100 WBC (Bld) 0.4 % Normal 0.2-2.0 [facility] Comment on above: Performed By: #### C BC #### [facility] [address] [place] [address] Dr. Henrietta Zavala EO # 0.1 103/ul Normal 0.0-0.7 [facility] Comment on above: Performed By: #### C BC #### [facility] [address] [place] [address] Dr. Henrietta Zavala Eosinophils/100 WBC (Bld) 0.4 % Critically low 0.9-7.0 [facility] Comment on above: Performed By: #### C BC #### [facility] [address] [place] [address] Dr. Henrietta Zavala Erythrocyte distribution width (RBC) [Ratio] 14.1 % Normal 11.0-15.0 [facility] Comment on above: Performed By: #### C BC #### [facility] [address] [place] [address] Dr. Henrietta Zavala Hematocrit (Bld) [Volume fraction] 44.9 % Normal 36.0-48.0 [facility] Comment on above: Performed By: #### C BC #### [facility] [address] [place] [address] Dr. Henrietta Zavala Hemoglobin (Bld) [Mass/Vol] 14.2 g/dL Normal 12.0-16.0 [facility] Comment on above: Performed By: #### C BC #### [facility] [address] [place] [address] Dr. Henrietta Zavala IG # 0.06 10e3/ul Critically high 0.00-0.03 [facility] Comment on above: Performed By: #### C BC #### [facility] [address] [place] [address] Dr. Henrietta Zavala IG % 0.5 % Normal 0.0-0.5 [facility] Comment on above: Performed By: #### C BC #### [facility] [address] [place] [address] [address] Henrietta Zavala LYMPH # 2.2 103/ul Normal 1.2-3.8 [facility] Comment on above: Performed By: #### C BC #### [facility] [address] [place] [address] [address] Henrietta Zavala Lymphocytes/100 WBC (Bld) 19.4 % Critically low 20.5-60.0 [facility] Comment on above: Performed By: #### C BC #### [facility] [address] [place] [address] [address] Henrietta Zavala MANUAL DIFF REQ NO Normal [facility] Comment on above: Performed By: #### C BC #### [facility] [address] [place] [address] Dr. Henrietta Zavala MCH (RBC) [Entitic mass] 27.5 pg Normal 26.7-34.0 [facility] Comment on above: Performed By: #### C BC #### [facility] [address] [place] [address] Dr. Henrietta Zavala MCHC (RBC) [Mass/Vol] 31.6 g/dL Normal 29.9-35.2 [facility] Comment on above: Performed By: #### C BC #### [facility] [address] [place] [address] Dr. Henrietta Zavala MCV (RBC) [Entitic vol] 86.8 fL Normal 81.0-99.0 [facility] Comment on above: Performed By: #### C BC #### [facility] [address] [place] [address] Dr. Henrietta Zavala MONO # 0.9 103/ul Critically high 0.3-0.8 [facility] Comment on above: Performed By: #### C BC #### [facility] [address] [place] [address] Dr. Henrietta Zavala Monocytes/100 WBC (Bld) 7.9 % Normal 1.7-12.0 [facility] Comment on above: Performed By: #### C BC #### [facility] [id number] Henrietta Zavala NEUT # 8.1 103/ul Critically high 1.4-6.5 [facility] Comment on above: Performed By: #### C BC #### [facility] [id number] Henrietta Zavala Neutrophils/100 WBC (Bld) 71.4 % Normal 43.0-75.0 [facility] Comment on above: Performed By: #### C BC #### [facility] [address] [address] [address] Henrietta Zavala Platelet mean volume (Bld) [Entitic vol] 9.7 fL Normal 9.5-13.5 [facility] Comment on above: Performed By: #### C BC #### [facility] [address] [address] [address] Henrietta Zavala PLT 284 103/ul Normal 150-450 [facility] Comment on above: Performed By: #### C BC #### [facility] [address] [address] [address] Henrietta Zavala RBC 5.17 106/ul Normal 4.20-5.40 [facility] Comment on above: Performed By: #### C BC #### [facility] [address] [address] [address] Henrietta Zavala WBC 11.3 103/ul Critically high 4.0-11.0 [facility] Comment on above: Performed By: #### C BC #### [facility] [address] [address] [address] Henrietta Zavala LIPID PROFILEon 04-12-2022 CHOL-HDL RATIO NORM SEE BELOW Normal [facility] Comment on above: Result Comment: 3.3 - 4.4 LOW RISK 4.4 - 7.1 AVERAGE RISK 7.1 - 11.0 MODERATE RISK >11.0 HIGH RISK Performed By: #### C MP, LIPID #### [facility] [address] [address] [address] Henrietta Zavala Cholesterol [Mass/Vol] 235 mg/dL Critically high <=200 [facility] Comment on above: Performed By: #### C MP, LIPID #### [facility] [address] [address] [address] Henrietta Zavala Cholesterol in HDL [Mass/Vol] 47 mg/dL Normal 40-60 [facility] Comment on above: Performed By: #### C MP, LIPID #### [facility] [address] [address] [address] Henrietta Zavala Cholesterol in LDL [Mass/Vol] 160.8 mg/dL Normal [facility] Comment on above: Performed By: #### C MP, LIPID #### [facility] [address] [address] [address] Henrietta Zavala Cholesterol.total/Ch olesterol in HDL [Mass ratio] 5.0 {ratio} Normal [facility] Comment on above: Performed By: #### C MP, LIPID #### [facility] [address] [place] [address] Dr. Henrietta Zavala HDL NORMAL > or = 60 mg/dl - LO W CARDIOVASCULAR RISK <40 mg/dl - HIGH CARDIOVASCULAR RISK Normal [facility] Comment on above: Performed By: #### C MP, LIPID #### [facility] [address] [place] [address] Dr. Henrietta Zavala LDL CALC NORMAL SEE BELOW Normal [facility] Comment on above: Result Comment: <100 mg/dl OPTIMAL 100 - 129 mg/dl NEAR OR ABOVE OPTIMAL 130 - 159 mg/dl BORDERLINE HIGH 160 - 189 mg/dl HIGH >190 mg/dl VERY HIGH Performed By: #### C MP, LIPID #### [facility] [address] [place] [address] Dr. Henrietta Zavala Triglyceride [Mass/Vol] 136 mg/dL Normal <=150 [facility] Comment on above: Performed By: #### C MP, LIPID #### [facility] [address] [place] [address] Dr. Henrietta Zavala VLDL CALC 27.2 mg/dL Normal [facility] Comment on above: Performed By: #### C MP, LIPID #### [facility] [address] [place] [address] Dr. Henrietta Zavala PROF 14(COMP METB)on 022 Albumin [Mass/Vol] 3.2 g/dL Critically low 3.4-5.0 [facility] Comment on above: Performed By: #### C MP, LIPID #### [facility] [address] [address] [address] Henrietta Zavala Albumin/Globulin [Mass ratio] 0.8 {ratio} Normal [facility] Comment on above: Performed By: #### C MP, LIPID #### [facility] [address] [address] [address] Henrietta Zavala ALP [Catalytic activity/Vol] 127 U/L Critically high 46-116 [facility] Comment on above: Performed By: #### C MP, LIPID #### [facility] [address] [place] [address] Dr. Henrietta Zavala ALT [Catalytic activity/Vol] 55 U/L Normal 14-59 [facility] Comment on above: Performed By: #### C MP, LIPID #### [facility] [address] [address] [address] Henrietta Zavala Anion gap [Moles/Vol] 13.6 mmol/L Normal [facility] Comment on above: Performed By: #### C MP, LIPID #### [facility] [address] [place] [address] Dr. Henrietta Zavala AST [Catalytic activity/Vol] 24 U/L Normal 15-37 [facility] Comment on above: Performed By: #### C MP, LIPID #### [facility] [address] [address] [address] Henrietta Zavala Bilirubin [Mass/Vol] 0.3 mg/dL Normal 0.2-1.0 [facility] Comment on above: Performed By: #### C MP, LIPID #### [facility] [address] [address] [address] Henrietta Zavala Calcium [Mass/Vol] 8.8 mg/dL Normal 8.5-10.1 [facility] Comment on above: Performed By: #### C MP, LIPID #### [facility] [address] [address] [address] Henrietta Zavala Chloride [Moles/Vol] 107 mmol/L Normal 98-107 [facility] Comment on above: Performed By: #### C MP, LIPID #### [facility] [address] [place] [address] Dr. Henrietta Zavala CO2 [Moles/Vol] 25.6 mmol/L Normal 21.0-32.0 [facility] Comment on above: Performed By: #### C MP, LIPID #### [facility] [address] [place] [address] Dr. Henrietta Zavala Creatinine [Mass/Vol] 0.77 mg/dL Normal 0.55-1.02 [facility] Comment on above: Performed By: #### C MP, LIPID #### [facility] [address] [place] [address] Dr. Henrietta Zavala EGFR-AF PUERTO RICAN >60 Normal >=60 [facility] Comment on above: Performed By: #### C MP, LIPID #### [facility] [address] [place] [address] Dr. Henrietta Zavala EGFR-NON AF PUERTO RICAN >60 Normal >=60 [facility] Comment on above: Performed By: #### C MP, LIPID #### [facility] [address] [place] [address] Dr. Henrietta Zavala Globulin (S) [Mass/Vol] 3.8 g/dL Normal [facility] Comment on above: Performed By: #### C MP, LIPID #### [facility] [address] [address] [address] Henrietta Zavala Glucose [Mass/Vol] 90 mg/dL Normal 74-106 [facility] Comment on above: Performed By: #### C MP, LIPID #### [facility] [address] [place] [address] Dr. Henrietta Zavala Potassium [Moles/Vol] 4.2 mmol/L Normal 3.5-5.1 [facility] Comment on above: Performed By: #### C MP, LIPID #### [facility] [address] [place] [address] Dr. Henrietta Zavala Protein [Mass/Vol] 7.0 g/dL Normal 6.4-8.2 [facility] Comment on above: Performed By: #### C MP, LIPID #### [facility] [address] [address] [address] Henrietta Zavala Sodium [Moles/Vol] 142 mmol/L Normal 136-145 [facility] Comment on above: Performed By: #### C MP, LIPID #### [facility] [address] [address] [address] Henrietta Zavala Urea nitrogen [Mass/Vol] 13.0 mg/dL Normal 7.0-18.0 [facility] Comment on above: Performed By: #### C MP, LIPID #### [facility] [address] [address] [address] Henrietta Zavala Urea nitrogen/Creatinine [Mass ratio] 16.9 mg/mg Normal [facility] Comment on above: Performed By: #### C MP, LIPID #### [facility] [address] [place] [address] Dr. Henrietta Zavala Tobacco Screening.on 021 Fall risk assessment a) No falls within the last year [facility] 250 DO Work Phone: Tobacco use status CPHS b) No [facility] 250 DO Work Phone: KNEE LEFT 3 [facility] 03-30-2021 KNEE LEFT 3 [facility] Department of Radiology [address] [place] [phone] ======== Patient Name: ADRIANA RAYGOZA : 1955 Sex: F Age: Race: White Pt. Location: Patient Status: Ordered Date: 03/30/2021 9:00:00 AM Completed Date: 03/30/2021 09:07 AM Requesting Provider: RAMANDEEP PATEL Attending Provider: Report Copy To: Signs & Symptoms: M25.562 Pain in left knee I10 History: Deb Comments: , , , Ordering Provider - RAMANDEEP PATEL MD , Exam: KNEE LEFT 3 [facility] ======== KNEE LEFT 3 S 03/30/2021 9:07 [...] findings. Electronically signed: Jesse Lazaro. Transcribed by: [email or web address], User Resident: Electronically Signed by: JESSE LAZARO @ 03/30/2021 11:00 AM Normal [facility] Comment on above: Order Comment: , , = ========= , Ordering Provider - RAMANDEEP PATEL MD , KNEE RIGHT 3 Son KNEE RIGHT 3 [facility] Department of Radiology [address] [place] [phone] ======== Patient Name: ADRIANA RAYGOZA : 1955 Sex: F Age: Race: White Pt. Location: 84 Patient Status: O Ordered Date: 03/30/2021 9:05:00 AM Completed Date: 03/30/2021 09:07 AM Requesting Provider: RAMANDEEP PATEL Attending Provider: RAMANDEEP PATEL Report Copy To: Signs & Symptoms: M25.569 Pain in unspecified knee I10 History: [place] Comments: Evaluate Exam: KNEE RIGHT 3 VWS [...] space. Approved by:Shala Gupta03/30/2021 10:24 AM. I, Jeses Lazaro,have reviewed the images and reports Electronically signed: Jesse Lazaro. Transcribed by: [email or web address], User Resident: SHALA EATON Electronically Signed by: JESSE LAZARO @ 03/30/2021 03:52 PM I personally read this/these film(s) with this resident Normal [facility] Comment on above: Order Comment: Evalu ate MRI LUMBAR SP W & WO CONTRAS Ton 10-11-2020 MRI LUMBAR SP W & WO CONTRAST STUDY: MRI LUMBAR SP W WO CONTRAST; 10/11/2020 11:35 am INDICATION: POST LAMINECTOMY SYNDROME. COMPARISON: None. ACCESSION NUMBER(S): [id number] ORDERING CLINICIAN: Denis Donohue TECHNIQUE: The lumbar [...] osteomyelitis. * THIS EXAMINATION WAS INTERPRETED AT [facility] Normal [facility] LUMB SP COMP W FLEX/EXT 6 VW Son 09-12-2020 LUMB SP COMP W FLEX/EXT 6 VWS STUDY: LUMB SP COMP W FLEX/EXT 6 VWS ; ; 09/12/2020 8:45 am INDICATION: PAIN. COMPARISON: None. ACCESSION NUMBER(S): [id number] ORDERING CLINICIAN: Denis Donohue FINDINGS: Status post [...] neural foraminal stenosis at L5-S1 level. Normal [facility] Ambulatory Clinical Summaryo n 05-22-2020 Ambulatory Clinical Summary {[id number] }CD:[id number] Normal [facility] Coding Summary.on 05-10-2020 Coding Summary. CODING DATE: [...] Date Saved: 05/10/2020 04:39 pm [facility] Coding Summary.on 05-08-2020 Coding Summary. CODING DATE: 05/08/2020 [facility] STATUS: Home (Routine DC) PAYOR: Commercial [...] Date Saved: 05/08/2020 12:00 pm [facility] IntraOperative Documentson 0 05-08-2020 IntraOperative Documents [id number]#1. 00CD:127 [facility] Postoperative Documentson Postoperative Documents [id number]#1.0 0CD:127 [facility] Coding Summary.on 05-04-2020 Coding Summary. CODING DATE: 05/04/2020 [facility] STATUS: Home (Routine DC) PAYOR: Commercial Insurance APC DESCRIPTION 5301 Level 1 Upper GI Procedures ADMIT DX: REASON FOR VISIT DX: R10.13 Epigastric pain FINAL DX: PRINCIPAL: K29.50 Unspecified chronic gastritis without bleeding SECONDARY: K25.9 Gastric ulcer, unspecified as acute or chronic, without hemorrhage or perforation R11.2 Nausea with vomiting, unspecified PYMT PROC APC STAT DESCRIPTION DOCTOR NAME DATE 27717 5301 Reid CLINE MD 05/01/2020 phagogastroduodenoscop y, flexible, transoral; with biopsy, single or multiple 03522 Anesthesia for upper Elliot Tena Jr, DO [...] Revised Date Saved: 05/04/2020 03:45 pm Normal [facility] Progress Note-Physicianon Progress Note-Physician Patient: ADRIANA DINERO [...] Cardiovascular: Regular rhythm. Neurologic: Alert, Oriented. Plan [place] [employer] (ASA) physical status classification: Class II. Anesthetic Preoperative Plan Anesthesia: General. . Anesthetic plan, risks, benefits, and alternatives discussed with the patient and/or family. Communication: face to face with (patient 5 minutes, Patient educated on smoking cesstation). Normal [facility] Comment on above: Result Comment: Elec tronically Signed By: Elliot Tena Jr, DO\.br\Date and Time Signed: 05/03/20 09:34 EDT Main OR Intraoperative Recor don 05-02-2020 Main OR Intraoperative Record IntraOp Document Type FT Summary Primary Physician: Reid NIEVES MD Finalized Date/Time: 05/02/20 13:35:19 Pt. Name: ADRIANA DINERO Shoshana VeraB./Sex: 1955 Female Med Rec #: [id number] Physician: Reid NIEVES MD Financial #: [id number] Pt. Type: O Room/Bed: / Admit/Disch: 05/01/20 07:03:44 - 05/01/20 23:59:59 Institution: Case Times FT Entry 1 Patient Times In Room 05/01/20 08:17:00 Out Room 05/01/20 08:25:00 Procedure Times Start 05/01/20 08:21:00 Stop 05/01/20 08:23:00 Anesthesia Times Start 05/01/20 08:17:00 Stop 05/01/20 08:25:00 Last Modified By: Savannah Chavis RN 05/01/20 08:26:21 General Comments: 05/02/2020 Chart opened to review and send charges Juvencio Andrés TEACHER DRAMA Case Attendance FT Entry 1 Entry 2 Entry 3 Case Attendee Elliot Tena Jr, DO, RN, Fior Simms Role Performed Anesthesiologist of Associate Media Planner - Primary Scrub - Primary Record Time [...] RN Patient Status Stable Skin. Condition Intact, [place], Warm, and Dry Airway Maintenance Oxygen in Use? No Outcomes Met? Yes Last Modified By: Savannah Chavis RN 05/01/20 06:57:50 Post-Care Text: The patient is free from signs and symptoms of injury related to transfer/transport General Comments: Report given to door attendant. RHRN Medication Administration FT Pre-Care Text: Verifies [...] 08:26 Altagracia Bowen CST 05/02/20 13:35 Normal [facility] Consenton 05-01-2020 Consent [id number]#1.0 0CD:127 Normal [facility] Consent for Treatmenton 04-11 Consent for Treatment [id number]#1.0 0CD:127 Normal [facility] Discharge Instructionson Discharge Instructions [id number]#1.0 0CD:127 [facility] History and Physicalon 05-01 History and Physical [id number]#1.0 0CD:127 Normal [facility] Inpatient Patient Summaryon 05-01-2020 Inpatient Patient Summary [address] [address] [facility] Clinical Discharge Instructions PERSON INFORMATION Name: ADRIANA DINERO I [facility]#:[id number] PHYSICIANS Admitting Physician: Reid NIEVES MD Attending Physician: Reid NIEVES MD PCP: TOBY QUINTANA MD Discharge Diagnosis: Antral ulcer Comment: PATIENT EDUCATION INFORMATION Instructions: Medication Leaflets: Follow up: With: Address: When: [facility] [address] [place] [address] Within 2 weeks Type Location [facility] Follow Up [facility] 05/22/2020 2:15 PM 05/22/2020 2:30 PM Confirmed MEDICATION LIST Medications to Continue Taking That Have Changed [facility] [facility], [address], [place] [id number], [phone] START: omeprazole (omeprazole 40 mg Cap-DR) 1 [...] 8 hours. Refills: 1. Comment: [facility] IntraOperative Documentson 0 05-01-2020 IntraOperative Documents [id number]#1.0 0CD:127 [facility] IntraOperative Documents [id number] 0CD:127 [facility] Main OR PACU I Recordon 04-11 Main OR PACU I Record PACU Phase I Document Type FT Summary Primary Physician: Reid NIEVES MD Finalized Date/Time: 05/01/20 09:14:39 Pt. Name: ADRIANA DINERO Shoshana Jerome/Sex: 1955 Female Med Rec #: [id number] Physician: Reid NIEVES MD Financial #: [id number] Pt. Type: O Room/Bed: / Admit/Disch: 05/01/20 [...] Ami Donaldson RN 05/01/20 09:14 [facility] Main OR Preoperative Recordo n 05-01-2020 Main OR Preoperative Record Holding Area Document Type FT Summary Primary Physician: Reid NIEVES MD Finalized Date/Time: 05/01/20 07:37:17 Pt. Name: ADRIANA DINERO/Sex: 1955 Female Med Rec #: [id number] Physician: Reid NIEVES MD Financial #: [id number] Pt. Type: O Room/Bed: / Admit/Disch: 05/01/20 [...] By: Lizbeth Diamond RN 05/01/20 07:37 Normal [facility] Monitor Recordon 05-01-2020 Monitor Record [id number]. 00CD:127 Normal [facility] Patient Education - Texton 0 05-01-2020 Patient Education - Text Normal [facility] Ambulatory Clinical Summaryo n 04-24-2020 Ambulatory Clinical Summary {[id number]}CD:[id number] Normal [facility] Auto Diffon 04-24-2020 Basophils/100 WBC (Bld) 0.5 % Normal 0.0-2.0 [facility] Comment on above: Order Comment: Order Added by Discern Expert. Performed By: #### 2 776438, 3295385, 3372264, 6035644, [id number] #### [facility] Laboratory [address] [place] [address] Basophils/Leukocytes Auto (Bld) [Pure # fraction] 0.0 E9/L Normal 0.0-0.2 [facility] Comment on above: Order Comment: Order Added by Discern Expert. Performed By: #### 2 226857, 1272813, 9087430, 4909890, [id number] #### [facility] [address] [place] [address] Eosinophils/100 WBC (Bld) 2.9 % Normal 0.0-8.0 [facility] Comment on above: Order Comment: Order Added by Discern Expert. Performed By: #### 2 226588, 0843337, 7637379, 0567809, [id number] #### [facility] [address] [place] [address] Eosinophils/Leukocyt es Auto (Bld) [Pure # fraction] 0.3 E9/L Normal 0.0-0.5 [facility] Comment on above: Order Comment: Order Added by Discern Expert. Performed By: #### 2 887309, 2439998, 7511488, 2770408, [id number] #### [facility] [address] [place] [address] Lymphocytes/100 WBC (Bld) 23.7 % Normal 14.0-50.0 [facility] Comment on above: Order Comment: Order Added by Discern Expert. Performed By: #### 2 714368, 2909703, 7503314, 7200200, 72411187 #### [facility] [address] [place] [address] Lymphocytes/Leukocyt es Auto (Bld) [Pure # fraction] 2.2 E9/L Normal 1.0-4.0 [facility] Comment on above: Order Comment: Order Added by Discern Expert. Performed By: #### 2 585847, 9054728, 5054608, 1955013, [id number] #### [facility] [address] [place] [address] Monocytes/100 WBC (Bld) 7.4 % Normal 4.0-14.0 [facility] Comment on above: Order Comment: Order Added by Discern Expert. Performed By: #### 2 591928, 8967186, 5803683, 7465166, [id number] #### [facility] Laboratory [address] [place] [address] Monocytes/Leukocytes Auto (Bld) [Pure # fraction] 0.7 E9/L Normal 0.2-1.0 [facility] Comment on above: Order Comment: Order Added by Discern Expert. Performed By: #### 2 574744, 1320420, 4283171, 9597765, [id number] #### [facility] [address] [place] [address] Neutrophils/100 WBC (Bld) 65.5 % Normal 36.0-75.0 [facility] Comment on above: Order Comment: Order Added by Discern Expert. Performed By: #### 2 785921, 0353516, 4367336, 8333755, 67568389 #### [facility] [address] [place] [address] Neutrophils/Leukocyt es Auto (Bld) [Pure # fraction] 6.0 E9/L Normal 2.0-7.5 [facility] Comment on above: Order Comment: Order Added by Discern Expert. Performed By: #### 2 842236, 2722309, 5969996, 0696450, 72440758 #### [facility] [address] [place] [address] CBC w/ Auto Diffon 0 Erythrocyte distribution width (RBC) [Ratio] 16.1 % High 10.9-14.2 [facility] Comment on above: Performed By: #### 2 023159, 1589959, 2909576, 6043721, [id number] #### [facility] [address] [place] [address] Hematocrit (Bld) [Volume fraction] 45.1 % Normal 34.0-46.0 [facility] Comment on above: Performed By: #### 2 873131, 6222472, 1296761, 5655637, [id number] #### [facility] [address] [place] [address]157 Hemoglobin (Bld) [Mass/Vol] 15.0 g/dL Normal 12.0-16.0 [facility] Comment on above: Performed By: #### 2 244872, 5967111, 6266857, 2831546, 82779391 #### [facility] Laboratory [address] [place] [address]7895 MCH (RBC) [Entitic mass] 27.2 pg Normal 27.0-34.0 [facility] Comment on above: Performed By: #### 2 054899, 1881242, 9838558, 8305829, 43416166 #### [facility] [address] [place] [address] MCHC (RBC) [Mass/Vol] 33.2 g/dL Normal 31.4-36.0 [facility] Comment on above: Performed By: #### 2 059700, 7110532, 2133896, 6026717, [id number] #### [facility] [address] [place] [address]647 MCV (RBC) [Entitic vol] 82.0 fL Normal 80.0-100.0 [facility] Comment on above: Performed By: #### 2 279172, 2688885, 3510678, 4594830, [id number] #### [facility] [address] [place] [address] Platelet mean volume (Bld) [Entitic vol] 7.3 fL Normal 6.4-10.8 [facility] Comment on above: Performed By: #### 2 672406, 4224326, 3105692, 2413589, 28381416 #### [facility] Laboratory [address] [place] [address] Platelets (Bld) [#/Vol] 253.0 E9/L Normal 150.0-500.0 [facility] Comment on above: Performed By: #### 2 118517, 1380053, 0284303, 6836723, 67533096 #### [facility] [address] [place] [address] RBC (Bld) [#/Vol] 5.5 E12/L Normal 4.3-5.9 [facility] Comment on above: Performed By: #### 2 643078, 4104142, 3044700, 7940094, [id number] #### [facility] [address] [place] [address] 10458 WBC corrected for nucl RBC Auto (Bld) [#/Vol] 9.1 E9/L Normal 4.0-11.0 [facility] Comment on above: Performed By: #### 2 325012, 0238521, 2845883, 2845201, [id number] #### [facility] [address] [place] [address] CMPon 04-24-2020 Albumin [Mass/Vol] 3.7 g/dL Normal 3.3-5.0 [facility] Comment on above: Performed By: #### 2 133187, 2547382, 1164252, 3573500, [id number] #### [facility] [address] [place], [place] [address] Albumin [Mass/Vol] 1.0 g/dL Low 1.1-2.2 [facility] Comment on above: Performed By: #### 2 092657, 4443865, 7978145, 1515760, 58283123 #### [facility] [address] [place] [address] ALP [Catalytic activity/Vol] 107 Int._Unit/L High 21-98 [facility] Comment on above: Performed By: #### 2 445433, 2527789, 7006799, 2287078, 76365369 #### [facility] [address] [place] [address] 80581 ALT No additional P-5'-P [Catalytic activity/Vol] 17 Int._Unit/L Normal 6-46 [facility] Comment on above: Performed By: #### 2 460774, 1493323, 9063428, 3154500, 39602541 #### [facility] [address] [place] [address] Anion gap [Moles/Vol] 11 mmol/L Normal 6-16 [facility] Comment on above: Performed By: #### 2 310012, 3284458, 7064961, 2529614, 66522934 #### [facility] [address] [place] [address] AST [Catalytic activity/Vol] 21 Int._Unit/L Normal 5-43 [facility] Comment on above: Performed By: #### 2 908994, 9310243, 9122192, 0655454, 34057747 #### [facility] [address] [place] [address] Bilirubin [Mass/Vol] 0.5 mg/dL Normal 0.0-1.1 [facility] Comment on above: Performed By: #### 2 431930, 9215818, 3339353, 3048966, 80791701 #### [facility] [address] [place] [address] Calcium [Mass/Vol] 9.0 mg/dL Normal 8.9-11.1 [facility] Comment on above: Performed By: #### 2 259883, 8831815, 6903646, 7139565, 67468759 #### [facility] [address] [place] [address] Chloride [Moles/Vol] 107 mmol/L Normal 101-111 [facility] Comment on above: Performed By: #### 2 919545, 6350068, 9946771, 6230050, 17620741 #### [facility] [address] [place] [address] CO2 [Moles/Vol] 27 mmol/L Normal 21-31 [facility] Comment on above: Performed By: #### 2 736568, 7871949, 8681078, 0426394, 61634149 #### [facility] [address] [place] [address] Creatinine [Mass/Vol] 0.8 mg/dL Normal 0.5-1.3 [facility] Comment on above: Performed By: #### 2 062551, 1357142, 7098216, 5223042, 09864669 #### [facility] [address] [place] [address] Globulin (S) [Mass/Vol] 3.7 g/dL Normal 1.4-4.0 [facility] Comment on above: Performed By: #### 2 538496, 1471767, 3698545, 3835512, 09029744 #### [facility] [address] [place] [address] Glucose [Mass/Vol] 134 mg/dL Normal 55-199 [facility] Comment on above: Result Comment: If t his glucose result represents a fasting glucose, interpretation should refer to the following reference range: 55-99 mg/dL Performed By: #### 2 804392, 3585892, 0825969, 3360500, 43175274 #### [facility] [address] [place] [address] Potassium [Moles/Vol] 3.9 mmol/L Normal 3.5-5.3 [facility] Comment on above: Performed By: #### 2 085688, 3276992, 8340263, 9294461, 63811422 #### [facility] [address] [place] [address] Protein [Mass/Vol] 7.4 g/dL Normal 6.0-7.8 [facility] Comment on above: Performed By: #### 2 261233, 8463420, 0696227, 5438289, 61189630 #### [facility] [address] [place] [address] Sodium [Moles/Vol] 141 mmol/L Normal 135-145 [facility] Comment on above: Performed By: #### 2 776358, 6950568, 0196576, 6891959, 42632854 #### [facility] [address] [place] [address] Urea nitrogen [Mass/Vol] 17 mg/dL Normal 5-21 [facility] Comment on above: Performed By: #### 2 182706, 8918755, 3367863, 0808266, 01670896 #### [facility] [address] [place] [address] Urea nitrogen/Creatinine [Mass ratio] 21 No Units High 10-20 [facility] Comment on above: Performed By: #### 2 804750, 7153585, 6963469, 3784016, 16488999 #### [facility] [address] [place] [address] Consent for Treatmenton 04-10 Consent for Treatment [id number] 0CD:127 Normal [facility] Lipase Levelon 04-24-2020 Lipase [Catalytic activity/Vol] 40 unit/L Normal 13-58 [facility] Comment on above: Performed By: #### 2 488214, 1251415, 9194589, 5448720, 90947743 #### [facility] [address] [place] [address] Physician Orderon 04-24-2020 Physician Order [id number]#1.00 CD:127 Normal [facility] eGFRon 04-24-2020 GFR/1.73 sq M predicted among blacks MDRD (S/P/Bld) [Vol rate/Area] mL/min/{1.73_m2} Normal >=59 [facility] Comment on above: Order Comment: Order added by Discern Expert. Result Comment: eGFR is race adjusted. AA=. Performed By: #### 2 866957, 4986745, 0576844, 8458567, 25560152 #### [facility] Laboratory [address] [place] [address] GFR/1.73 sq M predicted among non-blacks MDRD (S/P/Bld) [Vol rate/Area] mL/min/{1.73_m2} Normal >=59 [facility] Comment on above: Order Comment: Order added by Discern Expert. Result Comment: Corn Press Operator farhan kidney disease could be indicated at eGFR's of less than 60 mL/min/1.73m2. Kidney failure is indicated at less than 15 mL/min/1.73m2. Performed By: #### 2 326717, 6681605, 5996143, 3788574, 12352685 #### [facility] [address] [place] [address] PROGRESSon 11-04-2019 PROGRESS HNO ID: [id number] Author: Bridger Ma Service: ? Author Type: Physician Type: Progress Notes Filed: 11/04/2019 5:12 PM Note Text: Bridger Ma MD Department of Orthopaedics Orthopaedics [address] [address] Dept: [phone] October 05, 2019 CHIEF COMPLAINT: New Patient [...] electronic medical record. Caitlyn Cantu, LIZZY [address] [facility] [address] Toby Quintana MD [address] [place] [phone] This note was partially generated using [employer] voice recognition system, and there may be some incorrect words, spellings, and punctuation that were not noted in checking the note before saving. Bridger Ma MD Normal [facility] CNOVon 10-05-2019 CNOV Office Visit (HODA ) ADRIANA DINERO ([id number]) 1955 F Date Time Provider Department 10/05/19 [...] unable to work in the garden or pick and shovel man anything off of the ground. Patient had an x-ray done at [facility] on 11/02/18 and a MRI on 11/30/18. Patient hand carried copies of the reports and films on a CD. with patient today. Referred by Caitlyn Cantu. Taking Thorn[place] and Naproxen for the pain and does not help. Using a walker today and as needed at home. Bridger Ma MD 11/04/2019 5:12 PM Signed Bridger Ma MD Department of Orthopaedics Orthopaedics [address] [place] [address] Dept: [phone] October 05, 2019 CHIEF COMPLAINT: New Patient [...] or electronic medical record. LIZZY Graham [address] [facility] [address] Toby Quintana MD [address] [place] [phone] This note was partially generated using [employer] voice recognition system, and there may be some incorrect words, spellings, and punctuation that were not noted in checking the note before saving. Bridger Ma MD Referring Provider: CAITLYN CANTU [[id number]] Allergies As of Date: 10/05/2019 Noted Allergy [...] mg injection (CELESTONE)Disp: Rfl: [facility] [[id number]] Order #: [id number]: 1 Large Joint Arthro/Inj: R knee joint [KUR367] Order #: [id number] betamethasone acetate-betamethasone sodium phosphate 6 mg injection [...] Status:Closed by BRIDGER MA MD on 11/04/19 [facility] PROGRESSon 10-05-2019 PROGRESS HNO ID: [id number] Author: Eleanor Talbot Ma Service: ? Author Type: ? Type: Progress Notes Filed: 11/04/2019 5:12 PM Note Text: Patient presents with: New Patient: Right knee pain - [facility]. [facility] Risk Screening Do [...] unable to work in the garden or pick and shovel man anything off of the ground. Patient had an x-ray done at [facility] on 11/02/18 and a MRI on 11/30/18. Patient hand carried copies of the reports and films on a CD. with patient today. Referred by Caitlyn Cantu. Taking [place] and Naproxen for the pain and does not help. Using a walker today and as needed at home. Normal [facility] CREATININEon 08-26-2019 Creatinine [Mass/Vol] 0.80 mg/dL Normal 0.50 - 1.05 [facility] Comment on above: Performed By: #### C REAT #### [address] [address] Creatinine [Mass/Vol] mg/dL Normal >60 [facility] Comment on above: Performed By: #### C REAT #### [address] [address] Result Comment: CALC ULATIONS OF ESTIMATED GFR ARE PERFORMED USING THE MDRD STUDY EQUATION FOR THE IDMS-TRACEABLE CREATININE METHODS. CLIN CHEM 2007;53:766-72 ELECTROLYTE PANELon 08-26-20 19 Anion gap [Moles/Vol] 14 mmol/L Normal - 20 [facility] Comment on above: Performed By: #### E LECT #### [address] [address] Chloride [Moles/Vol] 104 mmol/L Normal 98 - 107 [facility] Comment on above: Performed By: #### E LECT #### [address] [address] HCO3 (Bld) [Moles/Vol] 29 mmol/L Normal 21 - 32 [facility] Comment on above: Performed By: #### E LECT #### [address] [address] Potassium [Moles/Vol] 4.6 mmol/L Normal 3.5 - 5.3 [facility] Comment on above: Performed By: #### E LECT #### [address] [address] Sodium [Moles/Vol] 142 mmol/L Normal 136 - 145 [facility] Comment on above: Performed By: #### E LECT #### [facility] [address] [place] [address] UREA NITROGENon 08-26-2019 Urea nitrogen [Mass/Vol] 14 mg/dL Normal 6 - 23 [facility] Comment on above: Performed By: #### U CARLOS #### [address] [address] [facility] CARDIAC STRESS/REST INJE CTIONon 08-25-2019 [facility] CARDIAC STRESS/REST INJECTION Patient Name: ADRIANA DINERO STUDY: MYOCARDIAL PERFUSION STRESS TEST WITH LEXISCAN Performing facility: [facility], [address] [place] [address], [address], [place] [address] [facility] Provider: GURU LU PCP: Dr. Poli QUINTANA Supervising provider: Poli VILLAFANA INDICATION: DYSPNEA EDEMA HISTORY: Gender: F; Age: 64 y/o ; Height: 170.18 cm; Weight: 127.915713 kg. SOB High Cholesterol; Family HX CAD; PALPITATIONS COMPARISON: ACCESSION NUMBER(S): [id number] ORDERING CLINICIAN: IBAN LU TECHNIQUE: TWO DAY [...] Electronically signed by: IBAN LU MD Normal [facility] OT-MRI KNEE RT WO CON IMPORT on 07-27-2019 OT-MRI KNEE RT WO CON IMPORT Images were obtained outside of [facility] [id number] Normal [facility] CNOVon 07-07-2019 CNOV Office Visit (SPNMED ) ADRIANA DINERO ([id number]) 1955 F Date Time Provider Department 07/07/19 9:40 AM [facility] During your visit today, we recorded the following information about you: Pulse Blood pressure Weight Height 80/minute 126/55 124.1 kg 1.676 m LIZZY Graham 07/07/2019 1:08 PM Signed BEVERLEY Lopez [facility] [address] [place] [address] 07/07/2019 Assessment Diagnosis: Encounter Diagnosis ICD-10-CM 1. [...] told for multiple years that she has dvne-uu-blwn arthritis in the right knee and this [...] record for those providers who practice within [facility] or with access to [employer] via MD Connect, or via letter. - [...] past--performed in [address] Jones in [place]. The procedure was a spinal laminectomy and fusion L2-4, and subsequent revision L2-5 lami/fusion with posterior hardware and interbody cages. 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 Author Type: Physician Associate Media Planner Type: Progress Notes Filed: 07/07/2019 1:08 PM Note Text: [facility]u [facility] [address] [place] [address] 07/07/2019 Assessment Diagnosis: Encounter Diagnosis ICD-10-CM 1. [...] told for multiple years that she has mtjd-jb-krck arthritis in the right knee and this [...] record for those providers who practice within [facility] or with access to [employer] via MD Connect, or via letter. SUBJECTIVE: [...] past--performed [place] [address] Jones in [place]. The procedure was a spinal laminectomy and fusion L2-4, and subsequent revision L2-5 lami/fusion with posterior hardware and interbody cages. 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: Medication(s): She has tried the [...] file Gets together: Not on file Attends mu-ism service: Not on file Active member of [...] L: 5/5 Triceps R: -4/5 L: 5/5 City Councilman R: -2/5 L: 5/5 Interossei R: 0/5 [...] IMAGING STUDIES: See above Normal [facility] CT-CT cervical spine w con I MPORTon 04-08-2019 CT-CT cervical spine w con IMPORT Images were obtained outside of [facility] [id number] Normal [facility] CT-CT cervical spine w con IMPORT Images were obtained outside of [facility] [id number] Normal [facility] CT-CT cervical spine w con IMPORT Images were obtained outside of [facility] [id number] Normal [facility] CT-CT lumbar spine w con IMP Edi 04-08-2019 CT-CT lumbar spine w con IMPORT Images were obtained outside of [facility] [id number] Normal [facility] CT-CT lumbar spine w con IMPORT Images were obtained outside of [facility] [id number] Normal [facility] CT-CT lumbar spine w con IMPORT Images were obtained outside of [facility] [id number] Normal [facility] OT-IR myelogram spine total IMPORTon 04-08-2019 OT-IR myelogram spine total IMPORT Images were obtained outside of [facility] [id number] Normal [facility] OT-IR myelogram spine total IMPORT Images were obtained outside of [facility] [id number] Normal [facility] OT-IR myelogram spine total IMPORT Images were obtained outside of [facility] [id number] Normal [facility] OT-MRI C-SPINE WO CON IMPORT on 02-25-2019 OT-MRI C-SPINE WO CON IMPORT Images were obtained outside of [facility] [id number] Normal [facility] OT-XR KNEE RT 4V OR > IMPORT on 11-30-2018 OT-XR KNEE RT 4V OR > IMPORT Images were obtained outside of [facility] [id number] [facility] Vital Signs Date Time Vital Sign Value Performing Clinician Facility 08-12-2024 09: Body height 165.1 cm [facility] 08-12-2024 09: Body mass index (BMI) [Ratio] 39.2 kg/m2 [facility] 08-12-2024 09: Body weight 106.76 kg [facility] 08-12-2024 09: Diastolic blood pressure 72 mm[Hg] [facility] 08-12-2024 09: Heart rate 75 /min [facility] 08-12-2024 09:23-0400 Respiratory rate 16 /min [facility] 08-12-2024 09:23-0400 SaO2% (BldA) [Mass fraction] 96 % [facility] 08-12-2024 09:23-0400 Systolic blood pressure 128 mm[Hg] [facility] 04-30-2024 09:12-0400 Body height 165.1 cm [facility] 04-30-2024 09:12-0400 Body mass index (BMI) [Ratio] 39.6 kg/m2 [facility] 04-30-2024 09:12-0400 Body weight 107.95 kg [facility] 04-30-2024 09:12-0400 Diastolic blood pressure 74 mm[Hg] [facility] 04-30-2024 09:12-0400 Heart rate 75 /min [facility] 04-30-2024 09:12-0400 Systolic blood pressure 109 mm[Hg] [facility] 03-22-2024 13:18-0400 Body height 165.1 cm [facility] 03-22-2024 13:18-0400 Body mass index (BMI) [Ratio] 39.7 kg/m2 [facility] 03-22-2024 13:18-0400 Body weight 108.4 kg [facility] 03-22-2024 13:18-0400 Diastolic blood pressure 77 mm[Hg] [facility] 03-22-2024 13:18-0400 Heart rate 75 /min [facility] 03-22-2024 13:18-0400 Systolic blood pressure 127 mm[Hg] [facility] 02-10-2024 13:04-0400 Body height 167.64 cm [facility] 02-10-2024 13:04-0400 Body mass index (BMI) [Ratio] 38.5 kg/m2 [facility] 02-10-2024 13:04-0400 Body weight 108.4 kg [facility] 02-10-2024 13:04-0400 Diastolic blood pressure 73 mm[Hg] [facility] 02-10-2024 13:04-0400 Heart rate 85 /min [facility] 02-10-2024 13:04-0400 Systolic blood pressure 105 mm[Hg] [facility] 01-19-2024 08:44-0400 Body height 167.64 cm [facility] 12-30-2023 09:55-0500 Body height 167.64 cm [facility] 12-30-2023 09:55-0500 Body mass index (BMI) [Ratio] 38.9 kg/m2 [facility] 12-30-2023 09:55-0500 Body weight 109.31 kg [facility] 12-30-2023 09:55-0500 Diastolic blood pressure 76 mm[Hg] [facility] 12-30-2023 09:55-0500 Heart rate 69 /min [facility] 12-30-2023 09:55-0500 Systolic blood pressure 120 mm[Hg] [facility] 12-09-2023 10:32-0500 Diastolic blood pressure 80 mm[Hg] Iban Lu MD Work Phone: [facility] 12-09-2023 10:32-0500 Systolic blood pressure 130 mm[Hg] Iban Lu MD Work Phone: [facility] 12-09-2023 09:46-0500 Body height 167.6 cm Iban Lu MD Work Phone: [facility] 12-09-2023 09:46-0500 Body mass index (BMI) [Ratio] 39.06 kg/m2 Iban Lu MD Work Phone: [facility] 12-09-2023 09:46-0500 Body weight 109.77 kg Iban Lu MD Work Phone: [facility] 12-09-2023 09:46-0500 Heart rate 68 /min Iban Lu MD Work Phone: [facility] 08-20-2023 09:00-0400 Body height 167.64 cm Toby Quintana Other [employer] Other 08-20-2023 09:00-0400 Body mass index (BMI) [Ratio] 38.38 kg/m2 Toby Quintana Other [employer] Other 08-20-2023 09:00-0400 Body weight 107.87 kg Toby Quintana Other [employer] Other 08-20-2023 09:00-0400 Diastolic blood pressure 75 mm[Hg] Toby Quintana Other [employer] Other 08-20-2023 09:00-0400 Systolic blood pressure 108 mm[Hg] Toby Quintana Other [employer] Other 04-24-2023 11:15-0400 Body height 167.64 cm Toby Quintana Other [employer] Other 04-24-2023 11:15-0400 Body mass index (BMI) [Ratio] 38.73 kg/m2 Toby Quintana Other [employer] Other 04-24-2023 11:15-0400 Body weight 108.86 kg Toby Quintana Other [employer] Other 04-24-2023 11:15-0400 Diastolic blood pressure 79 mm[Hg] Toby Quintana Other [employer] Other 04-24-2023 11:15-0400 Systolic blood pressure 114 mm[Hg] Toby Quintana Other [employer] Other 02-07-2023 09:30-0400 Body height 167.64 cm Toby Quintana Other [employer] Other 02-07-2023 09:30-0400 Body mass index (BMI) [Ratio] 39.99 kg/m2 Toby Quintana Other [employer] Other 02-07-2023 09:30-0400 Body weight 112.4 kg Toby Quintana Other [employer] Other 02-07-2023 09:30-0400 Diastolic blood pressure 68 mm[Hg] Toby Quintana Other [employer] Other 02-07-2023 09:30-0400 Respiratory rate 18 /min Toby Quintana Other [employer] Other 02-07-2023 09:30-0400 SaO2% (BldA) [Mass fraction] 93 % Toby Quintana Other [employer] Other 02-07-2023 09:30-0400 Systolic blood pressure 142 mm[Hg] Toby Quintana Other [employer] Other 01-08-2023 10:00-0500 Body height 167.64 cm Samuel Compa II Other [employer] Other 01-08-2023 10:00-0500 Body mass index (BMI) [Ratio] 40.19 kg/m2 Samuel Botetourt II Other [employer] Other 01-08-2023 10:00-0500 Body weight 112.95 kg Samuel Botetourt II Other [employer] Other 12-09-2022 13:25-0500 Body height 167.64 cm Toby Quintana Work Phone: [facility] 250 DO Work Phone: 12-09-2022 13:25-0500 Body mass index (BMI) [Ratio] 40.03 kg/m2 Toby Quintana Work Phone: [facility] 250 DO Work Phone: 12-09-2022 13:25-0500 Body surface area Derived from formula 2.19 m2 Toby Quintana Work Phone: [facility] 250 DO Work Phone: 12-09-2022 13:25-0500 Body weight 112.49 kg Toby Quintana Work Phone: [facility] 250 DO Work Phone: 12-09-2022 13:25-0500 Diastolic blood pressure 80 mm[Hg] Toby Quintana Work Phone: [facility] 250 DO Work Phone: 12-09-2022 13:25-0500 Heart rate 78 /min Toby Quintana Work Phone: [facility] 250 DO Work Phone: 12-09-2022 13:25-0500 Systolic blood pressure 118 mm[Hg] Toby Quintana Work Phone: [facility] 250 DO Work Phone: 11-22-2022 09:00-0500 Body height 167.64 cm Leeann Blades Other [employer] Other 11-22-2022 09:00-0500 Body mass index (BMI) [Ratio] 39.54 kg/m2 Leeann Blades Other [employer] Other 11-22-2022 09:00-0500 Body weight 111.13 kg Leeann Blades Other [employer] Other 09-04-2021 13:27-0400 Body height 170.18 cm Toby Quintana Work Phone: [facility] 250 DO Work Phone: 09-04-2021 13:27-0400 Body mass index (BMI) [Ratio] 39.78 kg/m2 Toby Quintana Work Phone: [facility] 250 DO Work Phone: 09-04-2021 13:27-0400 Body surface area Derived from formula 2.24 m2 Toby Quintana Work Phone: [facility] 250 DO Work Phone: 09-04-2021 13:27-0400 Body weight 115.21 kg Toby Quintana Work Phone: [facility] 250 DO Work Phone: 09-04-2021 13:27-0400 Diastolic blood pressure 78 mm[Hg] Toby Quintana Work Phone: [facility] 250 DO Work Phone: 09-04-2021 13:27-0400 Heart rate 80 /min Toby Quintana Work Phone: [facility] 250 DO Work Phone: 09-04-2021 13:27-0400 Systolic blood pressure 104 mm[Hg] Toby Quintana Work Phone: [facility] 250 DO Work Phone: Encounters Encounter Date Encounter Type Care Provider Facility Start: 08-12-2024 End: 08-12-2024 ambulatory [facility] Work Phone: Start: 08-12-2024 End: 08-12-2024 Patient encounter procedure [facility] Work Phone: Start: 04-30-2024 End: 04-30-2024 ambulatory [facility] Work Phone: Start: 04-30-2024 End: 04-30-2024 Patient encounter procedure [facility] Physician [facility] Work Phone: Start: 03-22-2024 End: 03-22-2024 ambulatory [facility] Work Phone: Start: 03-22-2024 End: 03-22-2024 Patient encounter procedure [facility] Physician [facility] Work Phone: Start: 02-10-2024 End: 02-10-2024 ambulatory [facility] Work Phone: Start: 02-10-2024 End: 02-10-2024 Patient encounter procedure [facility] Physician [facility] Work Phone: Start: 01-19-2024 End: 01-19-2024 Patient encounter procedure [facility] Physician [facility] Work Phone: Start: 01-14-2024 Non-patient / Non-visit [facility] Physician [facility] Work Phone: Start: 01-05-2024 Non-patient / Non-visit [facility] Physician [facility] Work Phone: Start: 12-30-2023 Patient encounter procedure [facility] Start: 12-30-2023 End: 12-30-2023 ambulatory [facility] Work Phone: Start: 12-30-2023 End: 12-30-2023 Patient encounter procedure [facility] Physician [facility] Work Phone: Start: 12-19-2023 End: 12-19-2023 ambulatory Toby Quintana Other [employer] Other Start: 12-19-2023 Telephone encounter Toby Quintaan [facility] Start: 12-17-2023 End: 12-17-2023 ambulatory Toby Quintana Other [employer] Other Start: 12-17-2023 Telephone encounter Toby Quintana [facility] Start: 12-16-2023 (Televisit) Televisit Toby Quintana Kehinde [facility] Start: 12-16-2023 End: 12-16-2023 ambulatory Toby Quintana Other [employer] Other Start: 12-09-2023 End: 12-09-2023 Office outpatient visit 25 minutes Iban Lu MD Work Phone: [facility] Comment on above: Supraventricular tac hycardia by ECG (Primary Dx); Mixed hyperlipidemia; Palpitations; Class II obesity Start: 12-09-2023 End: 12-09-2023 ambulatory IBAN Ashton [facility] Ambulatory Start: 12-08-2023 End: 12-08-2023 ambulatory Toby Quintana Other [employer] Other Start: 12-08-2023 Telephone encounter Toby Quintana [facility] Start: 11-04-2023 End: 11-04-2023 ambulatory Toby Pat Other [employer] Other Start: 11-04-2023 Telephone encounter Toby Pat [facility] Start: 10-21-2023 (Televisit) Televisit Toby Quintana Kehinde [facility] Start: 10-21-2023 End: 10-21-2023 ambulatory Toby Quintana Other [employer] Other Start: 10-21-2023 End: 10-21-2023 Patient encounter procedure [facility] Work Phone: Start: 10-20-2023 End: 10-20-2023 ambulatory Toby Quintana Other [employer] Other Start: 10-20-2023 Telephone encounter Toby Pat [facility] Start: 09-25-2023 (Televisit) Televisit Toby Quintana Kehinde [facility] Start: 09-25-2023 End: 09-25-2023 ambulatory Toby Quintana Other [employer] Other Start: 09-22-2023 (Televisit) Televisit Toby Quintana Kehinde [facility] Start: 09-22-2023 End: 09-22-2023 ambulatory Toby Quintana Other [employer] Other Start: 09-22-2023 Telephone encounter Toby Quintana [facility] Start: 08-20-2023 End: 08-20-2023 ambulatory Toby Quintana Other [employer] Other Start: 08-20-2023 Patient encounter procedure Toby Quintana [facility] Start: 05-22-2023 Telephone encounter Toby eugene Work Phone: [facility] 600 DO Work Phone: Start: 05-12-2023 End: 05-12-2023 ambulatory Toby Quintana Other [employer] Other Start: 05-12-2023 Telephone encounter Toby Quintana [facility] Start: 04-24-2023 End: 04-24-2023 ambulatory Toby Quintana Other [employer] Other Start: 04-24-2023 Office outpatient vi sit 15 minutes Toby Quintana [facility] Start: 04-11-2023 End: 04-11-2023 ambulatory Toby Quintana Other [employer] Other Start: 04-11-2023 Telephone encounter Toby Quintana [facility] Start: 03-13-2023 End: 03-13-[address] EVIN BYERS Facility:UNKNOWN Start: 03-13-[address] Toby Quintana Facility:[id number] Start: 02-07-2023 End: 02-07-2023 ambulatory Toby Quintana Other [employer] Other Start: 02-07-2023 Patient encounter procedure Toby Quintana [facility] Start: 02-03-2023 End: 02-03-2023 ambulatory Leeann Blades Other [employer] Other Start: 02-03-2023 Telephone encounter Leeann Blades [facility] [employer] Start: 01-27-2023 End: 01-27-2023 ambulatory Leeann Blades Other [employer] Other Start: 01-27-2023 Telephone encounter Leeann Blades [facility] Start: 01-21-[address] TOBY QUINTANA [facility] ity:H1 Start: 01-16-2023 End: 01-16-2023 ambulatory Samuel Guajardoisle II Other [employer] Other Start: 01-16-2023 Telephone encounter Samuel Chatman II [facility] [employer] Start: 01-08-2023 FQHC visit new patient Samuel Goodman nayeli II [facility] Start: 01-08-2023 End: 01-08-2023 ambulatory Samuel Chatman II Facility:[facility] Start: 01-08-2023 End: 01-08-2023 ambulatory MD Toby Quintana Work Phone: [facility] Work Phone: Start: 01-08-2023 End: 01-08-2023 Patient encounter procedure MD Toby Quintana Work Phone: [facility] Start: 01-02-2023 End: 01-02-2023 ambulatory Toby Quintana Other [employer] Other Start: 01-02-2023 Telephone encounter Leeann Blades [facility] Start: 12-30-2022 End: 12-30-2022 ambulatory Leeann Blades Other [employer] Other Start: 12-30-2022 Telephone encounter Leeann Blades [facility] Start: 12-26-2022 End: 12-26-2022 ambulatory Leeann Blades Other [facility] [employer] Other Start: 12-26-2022 Telephone encounter Leeann Blades [facility] Start: 12-19-2022 End: 12-19-2022 ambulatory Leeann Blades Other [facility] [employer] Other Start: 12-19-2022 Telephone encounter Leeann Blades F [facility] Start: 12-17-2022 End: 12-17-2022 ambulatory Toby Quintana Other [facility] [employer] Other Start: 12-17-2022 Telephone encounter Toby Quintana [facility] Start: 12-10-2022 End: 12-10-2022 ambulatory Toby Quintana Other [facility] [employer] Other Start: 12-10-2022 Telephone encounter Toby Quintana [facility] Start: 12-09-2022 Office outpatient vi sit 25 minutes Toby Quintana Work Phone: [facility] 250 DO Work Phone: Start: 12-09-[address] Iban Lu Facility: Start: 11-25-2022 End: 11-25-2022 ambulatory Leeann Blades Other [facility] [employer] Other Start: 11-25-2022 Telephone encounter Leeann Blades [facility] [employer] Start: 11-22-2022 Office outpatient ne w 45 minutes Leeann Blades [facility] Start: 11-22-2022 End: 11-22-2022 ambulatory Leeann Blades Facility:[facility] Start: 11-22-2022 End: 11-22-2022 ambulatory MD Toby Quintana Work Phone: [facility] Work Phone: Start: 11-22-2022 End: 11-22-2022 Patient encounter procedure MD Toby Quintana Work Phone: [facility] Work Phone: Start: 11-05-2022 Adult health examination Nannette Quintana Other [facility] [employer] Other Start: 11-05-2022 Pre-procedure evalua tion check Toby Quintana Other [facility] [employer] Other Start: 10-04-2022 End: 10-05-[address] SHALA OMER Facility:H1 Start: 09-16-2022 Rx Renewal Toby Quintana Work Phone: [facility] 250 DO Work Phone: Start: 07-24-2022 End: 07-24-[address] TOBY QUINTANA Facility:H1 Start: 07-22-2022 End: 07-22-[address] LAUREL BRAVO Facility:H1 Start: 04-18-2022 Encounter for genera l adult medical examination without abnormal findings DR TOBY QUINTANA [facility] Start: 04-13-2022 End: 04-14-[address] TOBY QUINTANA Facility:H1 Start: 04-12-2022 End: 04-13-[address] TOBY QUINTANA Facility:H1 Start: 04-12-2022 End: 04-13-2022 Encounter for general adult medical examination without abnormal findings DR TOBY QUINTANA Facility:H1 Start: 09-04-2021 FUV, Provider: Iban Lu, Status: Pen, Time: 2:00 PM Toby Quintana Work Phone: [facility] [address] [place] Work Phone: Start: 09-04-2021 Office outpatient vi sit 25 minutes Toby Quintana Work Phone: [facility] 250 DO Work Phone: Start: 08-30-2021 Rx Renewal Toby Quintana Work Phone: [facility] [address] [place] Work Phone: Procedures Date Procedure [...] procedure 12/09/2024 9:00 AM EST Office Visit [facility] [address] [address] Iban Lu MD [address] [facility] [address] [address] [facility] Start: 04-30-2024 Patient referral [facility] Work Phone: Start: 03-22-2024 Patient referral [facility] Work Phone: Start: 01-19-2024 Patient referral [facility] Work Phone: Start: 12-09-2023 End: 12-09-2024 Basic metabolic 2000 panel - Serum or Plasma Basic Metabolic Panel Lab Routine Supraventricular tachycardia by ECG Palpitations Expected: 12/09/2023 (Approximate), Expires: 12/09/2024 [facility] Service Area Work Phone: Comment on above: Expected: 12/09/2023 (Approximate), Expires: 12/09/2024 Start: 12-09-2023 FUV, Provider: Iban Lu, Status: Pen, Time: 10:00 AM FUV, Provider: Iban Lu, Status: Pen, Time: 10:00 AM [facility] [employer] 250 DO Work Phone: Start: 07-11-2023 COVID-19 Vaccine ( season) COVID-19 Vaccine ( season) [facility] Start: 07-11-2023 Influenza vaccination Influenza Vacc ine (#1) [facility] Start: 09-20-2022 FUV, Provider: Iban Lu, Status: Pen, Time: 2:20 PM FUV, Provider: Iban Lu, Status: Pen, Time: 2:20 PM [facility] [employer] 250 DO Work Phone: Start: 09-05-2022 FUV, Provider: Iban Lu, Status: Pen, Time: 11:20 AM FUV, Provider: Iban Lu, Status: Pen, Time: 11:20 AM [facility] [employer] 250 DO Work Phone: Start: 01-19-2006 Zoster Vaccines (1 o f 2) Zoster Vaccines (1 of 2) [facility] Start: 1996 Screening for malign ant neoplasm of breast Mammogram [facility] Start: 01-19-1978 DTaP/Tdap/Td Vaccine s (1 - Tdap) DTaP/Tdap/Td Vaccines (1 - Tdap) [facility] Start: 01-19-1974 [facility] Start: 01-19-1962 Pneumococcal Vaccine : 65+ Years (1 - PCV) Pneumococcal Vaccine: 65+ Years (1 - PCV) [facility] Start: 1956 Lipid panel Lipid Panel [facility] Start: 1955 Medicare Annual Wellness Visit Medicare Annual Wellness Visit (AWV) [facility] Start: 1955 Screening for malign ant neoplasm of colon [facility] Start: 1956 Screening for osteoporosis Bone Density Scan [facility] Comprehensive metabo lic 2000 panel - Serum or Plasma [facility] Patient referral [facility] Work Phone: US Lower extremity v ein - bilateral [facility] Immunizations Immunization Date Immunization Notes Care Provider Fa cility 09-06-2022 Pfizer COVID-19 Vac Bivalent 30 MCG/0.3ML Intramuscular Suspension Toby Quintana Work Phone: [facility] 250 DO Work Phone: 07-02-2021 Pfizer-BioNTech COVI D-19 Vacc 30 MCG/0.3ML Intramuscular Suspension Toby Quintana Work Phone: [facility] Comment on above: Series: 06-11-2021 Pfizer-BioNTech COVI D-19 Vacc 30 MCG/0.3ML Intramuscular Suspension Toby Quintana Work Phone: [facility] Comment on above: Series: 09-12-2014 tetanus and diphther ia toxoids, adsorbed, preservative free, for adult use (5 Lf of tetanus toxoid and 2 Lf of diphtheria toxoid) Toby Quintana Other [facility] 09-15-2013 tetanus and diphther ia toxoids, adsorbed, preservative free, for adult use (5 Lf of tetanus toxoid and 2 Lf of diphtheria toxoid) Toby Quintana Other [facility] 09-14-2013 influenza, seasonal, injectable Toby Quintana Work Phone: [facility] 09-14-2013 influenza virus vacc ine, unspecified formulation Iban Lu MD Work Phone: [facility] Work Phone: 08-10-2013 influenza virus vacc ine, unspecified formulation Toby Quintana Work Phone: [facility] 250 DO Work Phone: 07-19-2012 influenza virus vacc ine, unspecified formulation Toby Schofield Quintana Work Phone: [facility] 250 DO Work Phone: 11-10-2009 influenza virus vacc ine, unspecified formulation Toby Schofield Quintana Work Phone: [facility] 250 DO Work Phone: 08-10-2009 influenza virus vacc ine, unspecified formulation Toby Schofield Quintana Work Phone: [facility] 250 DO Work Phone: 07-14-2007 pneumococcal polysaccharide vaccine, 23 valent Toby Quintana Other [facility] Payers Date Payer Category Payer Medicare [employer] MEDICARE A ETNA MEDICARE VALUE PLAN [id number] 2023-Present [address] [place] [address] [id number] 2023 Medicare [id number] 2022 Self-pay [id number] 1959 Unknown [id number] 1959 Unknown [id number] 2.16.8 [id number] 1956 Unknown [id number] 1956 Unknown [id number] 1956 Unknown [id number] 1956 Unknown [id number] 1956 Unknown [id number] 1956 Unknown [id number] [id number] 1956 Unknown [id number] [id number] 1956 Unknown [id number] [id number] 1956 Unknown [id number] [id number] 1956 Unknown [id number] Unknown Unknown HCAP/HFA/FAP Active [id number] Unknown [id number] Unknown [id number] Social History Date Type Detail Facility Start: 12-09-2023 No illicit drug use No illicit drug use [address] Work Phone: Comment on above: Coffee 1 cup daily; quit 1987; Start: 1955 Sex Assigned At Female F [facility] Start: 12-09-2023 Sex Assigned At N [facility] [employer] Other Start: 12-09-2023 Tobacco smoking status NHIS Ex-smoker [facility] Work Phone: History of tobacco use Current smoker [facility] Work Phone: History of tobacco use Cigarette Smoker [facility] Work Phone: Start: 12-09-2023 Tobacco use and exposure Smokeless tobacco non-user [facility] Work Phone: Start: 12-09-2023 Alcohol intake Lifetime non-d mary (finding) [facility] Work Phone: Start: 1955 [facility]igned [facility]: Start: 11-29-2023 End: 12-09-2023 Exposure to SARS-CoV-2 (event) Not sure [facility] Clinical Notes 11-22-2022 to 03-22-2024 Note Date & Type Note Facility 03-22-2024 Hospital Discharg e instructions Ambulatory OrdersReferral to Orthopedics Time Frame: 03/22/24, Location: None [facility] Work Phone: 12-17-2023 Evaluation note Encounter Date Diagnosis Assessment Notes Dec, Jaw swelling (ICD-10 - R22.0) [employer] Other 02-06-2024 Evaluation note* Encounter Date Diagnosis Assessment Notes Treatment Notes Treatment Clinical Notes Dec, Dental infection (ICD-10 - K04.7) Pt will contact her insurance, find a different dentist. Will continue antibiotic at this time. [employer] Other 01-30-2024 History of Present illness Narrative* [...] future falls. Annual follow-up will be scheduled bIan Lu MD, [facility] Review of Systems Cardiovascular: Positive for [...] EVENING, Disp: 225 tablet, Rfl: 0 omega 4-ykv-raw-fish oil 360 mg-108 mg- 180 mg-1,200 mg [...] Lu MD. [facility] Work Phone: [phone] 372-708301-30-2024 Instructions* Patient Instructions* Nataliya Manning LPN - [...] one year [facility] Work Phone: [phone]) [phone] Evaluation note* Encounter Date Diagnosis Assessment Notes Treatment Notes Treatment Clinical Notes Oct, Open fracture of tooth, initial encounter (ICD-10 - S02.5XXB) Keep area clean, brush and rinse frequently. seeing dentist next week. Oct, Lumbar radiculitis (ICD-10 - M54.16) pt requests refill for her chronic back issues. We discussed her treatment plan w Dr. Byers. [employer] Other 11-16-2023 Evaluation note* Encounter Date Diagnosis Assessment Notes Treatment Notes Treatment Clinical Notes Sep, Lumbar radiculitis (ICD-10 - M54.16) CHanged pain med. Jax will call Dr. Byers's office for a change in treatment plan and an appt. Sep, Nausea & vomiting (ICD-10 - R11.2) States that zofran has not helped in the past - phenergan sent in for short term use. [employer] Other 11-13-2023 Evaluation note* Encounter Date Diagnosis Assessment Notes Treatment Notes Treatment Clinical Notes Sep, Radiculopathy, lumbar region (ICD-10 - M54.16) My staff reviewed her case with Dr. Byers's staff. She is to call their office for follow-up appointment next month. Patient does not want another injection and would rather have an ablation. Trial of tramadol sent to pharmacy. OARRS reviewed. [employer] Other 10-11-2023 Evaluation note* Encounter Date Diagnosis Assessment Notes Treatment Notes Treatment Clinical Notes Aug, Pain in right knee (ICD-10 - M25.561) Aug, Other chronic pain (ICD-10 - G89.29) Aug, Pain in left knee (ICD-10 - M25.562) [employer] Other 03-31-2023 Evaluation note* Encounter Date Diagnosis Assessment Notes Treatment Notes Treatment Clinical Notes Jan, Nausea & vomiting (ICD-10 - R11.2) Jan, Pain in right knee (ICD-10 - M25.561) Jan, Other chronic pain (ICD-10 - G89.29) Jan, Pain in left knee (ICD-10 - M25.562) [employer] Other 03-31-2023 Evaluation note* Encounter Date Diagnosis Assessment Notes Treatment Notes Treatment Clinical Notes Jan, Nausea & vomiting (ICD-10 - R11.2) chronic problem - requesting refill on Zofran Jan, Pain in right knee (ICD-10 - M25.561) Jan, Other chronic pain (ICD-10 - G89.29) Jan, Pain in left knee (ICD-10 - M25.562) [employer] Other 03-01-2023 Evaluation note* Encounter Date Diagnosis [...] She would prefer to stay close to [place]. Our office is working to get her referral to pain management near [place]. [employer] Other 01-31-2023 Evaluation note* Encounter Date Diagnosis Assessment Notes Treatment Notes Treatment Clinical Notes Nov, Lumbar pain (ICD-10 - M54.50) [employer] Other 01-13-2023 Evaluation note* Encounter Date Diagnosis Assessment Notes Treatment Notes Treatment Clinical Notes Nov, Low back pain, unspecified back pain laterality, unspecified chronicity, unspecified whether sciatica present (ICD-10 - M54.50) [employer] Other evalnxnaks noteNo assessment information available [facility] Work Phone: Evaluation noteNo InformationNort [employer] Other evaluation [employer] Other Evaluation note* Diagnosis Supraventricular tachycardia by ECG- Primary Mixed hyperlipidemia Palpitations Class II obesity documented in this encounter [facility] Work Phone: Evaluation note* Diagnosis Onset Date Resolution Status Fatigue acute Hyperlipidemia acute Lumbar radiculopathy, chronic acute Medicare annual wellness visit, subsequent acute SVT (supraventricular tachycardia) acute [facility] Work Phone: Evaluation note* Diagnosis Onset Date Resolution Status Fatigue acute Hyperlipidemia acute Lumbar radiculopathy, chronic acute Medicare annual wellness visit, subsequent acute SVT (supraventricular tachycardia) acute Lumbar radiculopathy, chronic acute [facility] Work Phone: Evaluation note* Diagnosis Onset Date Resolution Status Fatigue acute Hyperlipidemia acute Lumbar radiculopathy, chronic acute Medicare annual wellness visit, subsequent acute SVT (supraventricular tachycardia) acute Lumbar radiculopathy, chronic acute Left knee pain acute Lumbar radiculopathy, chronic acute Right knee pain acute Left knee pain acute Right knee pain acute [facility] Work Phone: Evaluation note* Diagnosis Onset Date Resolution Status Left knee pain acute Lumbar radiculopathy, chronic acute Right knee pain acute Bilateral cold feet acute Left knee pain acute Right knee pain acute Bilateral lower extremity pain acute Diminished pulses in lower extremity acute PAD (peripheral artery disease) acute [facility] Work Phone: History general Narrative - [...] childbirth Hospitalization History hysterectomy Hospitalization History pancreatitis [facility] [employer] Other History general Narrative - [facility] [employer] Other Hospital Discharge instructionsAmbulatory Orders* Referral to Vascular Surgery Time Frame: 04/30/24, Location: None Selected [facility] Work Phone: Reason for referral (narrative)* Consultation (Routine) - Authorized Specialty Diagnoses / Procedures Referred By Contac t Referred To Contact Cardiology Diagnoses Supraventricular tachycardia by ECG Procedures Follow Up In Cardiology Iban Lu MD [address] [facility] [address], [address] [address] Iban Lu MD [address] [facility], [facility] [address] [place] [address] Referral ID Status Reason Start Date Expiration Date V isits Requested Visits Authorized [id number] Authorized 12/09/2023 12/08/2024 1 1 [facility] Work Phone: Reason for visit NarrativePain Medicine [facility] [employer] Other Summary Purpose Family History No Family History Records FoundUnknown Family Member Name Dates Details Family history [...] Unknown grandparent Unknown mother Unknown Advance Directives No Advanced Directives Records Found Advance Directive Response Recorded Date/ Time Advance [...] visit a year ago.She has been on beta-naahi therapy which has been well-tolerated. 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 * ASSESSMENT AND PLAN: * [...] will be scheduled * Iban Lu MD, [facility] Chief Complaint and Reason for Visit Chief Complaint xray Chief Complaint Swollen Face, [place]- [phone] Medicare Wellness Reason for Visit Fatigue Hyperlipidemia Lumbar radiculopathy, chronic Medicare annual wellness visit, subsequent SVT (supraventricular tachycardia) Chief Complaint Medicare Wellness Amb Documentation pulled [phone] knee injections Reason for Visit Fatigue Hyperlipidemia Lumbar radiculopathy, chronic Medicare annual wellness visit, subsequent SVT (supraventricular tachycardia) Lumbar radiculopathy, chronic Chief Complaint Medicare Wellness Amb Documentation pulled [phone] knee injections leg swelling - hot cold [...] back pain, unspe cified (M54.50) Referral Organization [facility] Referring Provider First Name Leeann Referring Provider Last Name Blades Referring Provider Specialty Neurologica l Surgery Referred Organization [facility] Referred Provider Albertina Oconnell Referred Address [address], [place],[address] Referred Provider Specialty Pain Medicin e Referral Priority Routine Referral Appointment Date 2023-01-21 General Notes Klaudia Golden 023 09:03:40 AM >Received today and waiting for office notes to be locked before sending [facility] 07:37:06 AM >[facility]/08[facility]2023 09:26:41 AM >Referral was refax to the correct office with their form Trini Suazo 01/08/2023 02:11:33 PM >received letter, pt has appt scheduled for 01/21/2023 Clinical Notes Phone: Reason 01/08/23 @ 10:00am Evaluate and Treat Hip Pain Diagnosis 1 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) Referral Organization [facility] Referring Provider First Name [facility] Referring Provider Last Name Blades Referring Provider Specialty Neurologica l Surgery Referred Organization [facility] Referred Provider Samuel Chatman II Ref[address] Address [address] [place], [place],[address] Referred Provider Specialty Orthopaedic Surgery Referral Priority Routine Referral Appointment Date 2023-01-08 General Notes Klaudia Golden 023 10:20:34 AM >Received today and [facility]/01[facility]2023 12:05:35 PM >[facility]/15/2023 09:30:10 AM >Office notes not locked yet [facility] 01/16/2023 08:43:03 AM >Sent telephone encounter to referring physician to let them know that the consult letter is ready for their review Reason DECLINED lumbar an d knee pain Diagnosis 1 Lumbar pain (M54.50) Referral Organization [facility] Som chang Referring Provider First Name Toby Referring Provider Last Name Pat Referring Provider Specialty Family Medi cine Referred Organization [facility] Referred Provider Paddy De Los Santos Referred Address [address] [facility] [place],[address] Referred Provider Specialty Rheumatology Referral Priority Routine [...] section and content) DATE CREATED AUTHOR 09/23/2019 [facility] DATE CREATED AUTHOR AUTHOR'S ORGANIZ ATION 11/04/2019 [facility] DATE CREATED AUTHOR AUTHOR'S ORGANIZ ATION 05/31/2020 [facility] DATE CREATED AUTHOR AUTHOR'S ORGANIZ ATION 12/06/2020 [facility] DATE CREATED AUTHOR AUTHOR'S ORGANIZ ATION 04/21/2021 [facility] DATE CREATED AUTHOR AUTHOR'S ORGANIZ ATION 12/10/2022 [employer] DATE CREATED AUTHOR AUTHOR'S ORGANIZ ATION 01/10/2023 [facility] DATE CREATED AUTHOR AUTHOR'S ORGANIZ ATION 01/17/2023 [facility] DATE CREATED AUTHOR AUTHOR'S ORGANIZ ATION 03/18/2023 [facility] DATE CREATED AUTHOR AUTHOR'S ORGANIZ ATION 06/09/2023 [facility] DATE CREATED AUTHOR AUTHOR'S ORGANIZ ATION 10/10/2024 [facility] [employer] Teams (unrecognized sec tion and content) Team Status: Inactive Member Role Status Dates Toby Quintana MD Primary Care Provider Active Leeann Quintana Attending Provider Active Team Status: Active Member Role Status Dates Toby Quintana MD Primary Care Provider Active Team Status: Inactive Member Role Status Dates Toby Quintana MD Primary Care Provider Active Samuel Chatman II, MD Attending Provider Active 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 [facility]. provides no warranty or guarantee of the accuracy or completeness of information in this document.
== END 2024-10-20 12:12 | disposition home or self-care (01) ==
LOC: WC 12:12
PROVIDERS: PCP Family Medicine; Visit Provider Physician Assistant
DX: L97.922 Non-pressure chronic ulcer of unspecified part of left lower leg with fat layer exposed (principal)
CPT/HCPCS: A6199; G0463

== ENCOUNTER 2024-11-01 09:56 | Outpatient (OUT) | payer MEDICARE, SELFPAY | END 2024-11-01 09:57 | disposition home or self-care (01) | LOC: WC 09:56 | PROVIDERS: PCP Family Medicine; Visit Provider Physician Assistant | DX: L97.922 Non-pressure chronic ulcer of unspecified part of left lower leg with fat layer exposed (principal) | CPT/HCPCS: A6199; G0463 ==

== ENCOUNTER 2024-11-19 11:41 | Outpatient (OUT) | payer MEDICARE, SELFPAY ==
--- OUTSIDE RECORDS SUMMARY | 2024-11-19 12:14 | XMS_ITS | CCD ---
Author Organization [facility] Care Team Providers Care Hide Inspector And Sorter Name Role Phone Toby Quintana Unavailable Unavailable [...] Unavailable QUINTANA, DR TOBY Schofield Admitting Unavailable SPARKILL, DR CAITLYN Noe Consulting Unavailable QUINTANA, DR TOBY Schofield Attending Unavailable QUINTANA, DR TOBY Schofield Primary Care Unavailable QUNITANA, DR TOBY Schofield Consulting Unavailable REINECK, DR [...] Sulfamethoxazole; Translations: [sulfa] Drug Allergy Rash, Swelling [address] Work Phone: (10 sources) Sulfonamides (Antibiotic); Translations: [Sulfa (Sulfonamide Antibiotics)] Allergy to substance 04-08-20 19 Hives, Rash, Swelling [facility] (20 sources) Sulfacetamide / Sulfur Drug Allergy rash [employer] [facility] nanoMR Other (1 source) Morphine Drug Allergy [facility] (1 source) Quinolones (Antibiotic) Drug allergy (disorder) [facility] (2 sources) Sulfonamides (Antibiotic) Drug allergy (disorder) 08-06-20 13 [facility] (12 sources) Acetaminophen / oxyCODONE Drug Allergy 07-28-20 13 Unknown 99tests Other (12 sources) Meperidine Drug Allergy 07-28-20 13 Unknown 99tests Other (13 sources) Quinolones Drug allergy 07-28-20 13 Comment:Fluorq rennolones 99tests Other (13 sources) sulfADIAZINE Drug Allergy Unknown 99tests Other (13 sources) Substance with sulfonamide structure and antibacterial mechanism of action (substance) Drug allergy 07-28-20 13 Unknown 99tests Other (13 sources) Statins Depletion *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 Propensity to adverse reactions 07-28-20 13 Unknown 99tests Other (4 sources) Allergies Reconciled Propensity to adverse reactions Unknown 99tests Other (4 sources) patient allergy list reviewed by nurse or physicia Propensity to adverse reactions 07-15-20 Comment:Done 99tests Other (1 source) Acetaminophen / oxyCODONE Drug Allergy 07-28-20 13 Unknown 99tests Other (1 source) Meperidine Drug Allergy 07-28-20 13 Unknown 99tests Other (5 sources) Sulfacetamide Drug Allergy 12-30-19 24 [facility] Medications Current Medications Medication Drug Class(es) Dates Sig (Normalized) Sig (Original) acetaminophen 325 mg / HYDROcodone bitartrate 5 mg oral tablet (20 sources) Opioid Agonist Start: 08-31-2021 End: 12-09-2023 take 1 tablet by mouth every four hours as needed HYDROcodone-acetami nophen (Fowler) 5-325 mg tablet Take 1 tablet by [...] puffs Inhalation Twice a day Active omega 5-kdv-glm-fish oil 360 mg-108 mg- 180 mg-1,200 mg capsule (1 source) take 1 capsule by mouth once daily omega 2-wqf-gox-fish oil 360 mg-108 mg- 180 mg-1,200 mg [...] Sep, Active take 1 capsule by mo [facility] every six hours as needed [...] 09-12-2014 Episodic Other aftercare (1 source) Other nursing home (current) drug therapy; Translations: [OTH GRINDER NEEDLE TIP CURRENT DRUG THERAPY] Onset: 07-23-2022 Episodic Other [...] aPTT Coag (PPP) [Time] 23.5 s 22.3-36.2 [facility] Basophils Auto (Bld) [#/Vol] on 01-14-2024 Basophils (Bld) [#/Vol] 0.1 10 3/uL 0.0-0.1 [facility] Basophils/100 WBC Auto (Bld) on 01-14-2024 Basophils/100 WBC (Bld) 0.5 % 0.2-2.0 [facility] Eosinophils/100 WBC Auto (Bl d)on 01-14-2024 Eosinophils/100 WBC (Bld) 1.3 % 0.9-7.0 [facility] Erythrocyte distribution wid th Auto (RBC) [Ratio]on 01-14-2024 Erythrocyte distribution width (RBC) [Ratio] 13.6 % 11.0-15.0 [facility] Estimated glomerular filtrat ion rate (GFR) non- Americanon 01-14-2024 GFR/1.73 sq M.predicted among non-blacks MDRD (S/P/Bld) [Vol rate/Area] mL/min/{1.73_m2} >=60 [facility] Fibrin D-dimer [Presence] in Platelet poor plasma by Latex agglutinationon 01-14-2024 Fibrin D-dimer LA Ql (PPP) 0.78 mg/L FEU <=0.59 [facility] Comment on above: RESULTS CALLED TO [...] on 01-14-2024 Globulin (S) [Mass/Vol] 3.9 g/dL [facility] Hematocrit Auto (Bld) [Volum e fraction]on 01-14-2024 Hematocrit (Bld) [Volume fraction] 44.4 % 36.0-48.0 [facility] Hemoglobin [Mass/volume] in Bloodon 01-14-2024 Hemoglobin (Bld) [Mass/Vol] 14.1 g/dL 12.0-16.0 [facility] INR in Platelet poor plasma by Coagulation assayon 01-14-2024 INR Coag (PPP) [Relative time] {INR} [facility] Comment on above: DESIRED INR:2.0-3.0 CONDITIONS NOT LISTED BELOW2.5-3.5 FOR PROSTHETIC HEART VALVE REPLACEMENT2.5-3.5 RECURRENT THROMBOSIS Laboratory - Chemistry and C hemistry - challengeon 01-14-2024 Albumin [Mass/Vol] 2.9 g/dL 3.4-5.0 [facility] ALP [Catalytic activity/Vol] 126 U/L 46-116 [facility] ALT [Catalytic activity/Vol] 36 U/L 14-59 [facility] AST [Catalytic activity/Vol] 24 U/L 15-37 [facility] Bilirubin [Mass/Vol] 0.4 mg/dL 0.2-1.0 [facility] Calcium [Mass/Vol] 8.7 mg/dL 8.5-10.1 [facility] Chloride [Moles/Vol] 109 mmol/L 98-107 [facility] CO2 [Moles/Vol] 30.5 mmol/L 21.0-32.0 [facility] Creatinine [Mass/Vol] 0.77 mg/dL 0.55-1.02 [facility] GFR/1.73 sq M.predicted MDRD (S/P/Bld) [Vol rate/Area] mL/min/{1.73_m2} >=60 [facility] Glucose [Mass/Vol] 108 mg/dL 74-106 [facility] Natriuretic peptide B (Bld) [Mass/Vol] 210.0 pg/mL <=900.0 [facility] Potassium [Moles/Vol] 4.0 mmol/L 3.5-5.1 [facility] Protein [Mass/Vol] 6.8 g/dL 6.4-8.2 [facility] Sodium [Moles/Vol] 141 mmol/L 136-145 [facility] Urea nitrogen [Mass/Vol] 10.0 mg/dL 7.0-18.0 [facility] Urea nitrogen/Creatinine [Mass ratio] 13.0 mg/mg [facility] Laboratory - Hematology and Cell countson 01-14-2024 Immature granulocytes/100 WBC (Bld) 0.3 % 0.0-0.5 [facility] Laboratory - Microbiology an d Antimicrobial susceptibilityon 01-14-2024 SARS-CoV-2 (COVID-19) RNA DAVID+probe Ql (Unsp spec) Negative NEGATIVE [facility] Comment on above: This test has [...] Auto (Bld) [#/Vol] 9.2 10 3/uL 4.0-11.0 [facility] Lymphocytes Auto (Bld) [#/Vo l]on 01-14-2024 Lymphocytes (Bld) [#/Vol] 1.9 10 3/uL 1.2-3.8 [facility] Lymphocytes/100 WBC Auto (Bl d)on 01-14-2024 Lymphocytes/100 WBC (Bld) 20.3 % 20.5-60.0 [facility] MCH Auto (RBC) [Entitic mass ]on 01-14-2024 MCH (RBC) [Entitic mass] 28.4 pg 26.7-34.0 [facility] MCHC Auto (RBC) [Mass/Vol]on 01-14-2024 MCHC (RBC) [Mass/Vol] 31.8 g/dL 29.9-35.2 [facility] MCV Auto (RBC) [Entitic vol] on 01-14-2024 MCV (RBC) [Entitic vol] 89.5 fL 81.0-99.0 [facility] Monocytes Auto (Bld) [#/Vol] on 01-14-2024 Monocytes (Bld) [#/Vol] 0.8 10 3/uL 0.3-0.8 [facility] Monocytes/100 WBC Auto (Bld) on 01-14-2024 Monocytes/100 WBC (Bld) 8.5 % 1.7-12.0 [facility] Neutrophils Auto (Bld) [#/Vo l]on 01-14-2024 Neutrophils (Bld) [#/Vol] 6.3 10 3/uL 1.4-6.5 [facility] Neutrophils/100 WBC Auto (Bl d)on 01-14-2024 Neutrophils/100 WBC (Bld) 69.1 % 43.0-75.0 [facility] No Panel Informationon 01-13 Troponin I High Sensitivity 6.8 pg/mL 4.0-51.3 [facility] Comment on above: CUT-OFF POINTS HAVE [...] INFORMATION. Bedside Influenza Type A Antigen Negative [facility] Comment on above: Negative for Flu A p rotein antigen. Infection due to Flu Acannot be ruled out. Flu A antigen in the sample may bebelow the detection limit of the test. Bedside Influenza Type B Antigen Negative [facility] Comment on above: Negative for Flu B p rotein antigen. Infection due to Flu Bcannot be ruled out. Flu B antigen in the sample may bebelow the detection limit of the test. Eosinophils # (Auto) 0.1 10 3/uL 0.0-0.[address] [facility] Immature Granulocyte # (Auto) 0.03 10 3/uL 0.00-0.03 [facility] Platelet mean volume Auto (B ld) [Entitic vol]on 01-14-2024 Platelet mean volume (Bld) [Entitic vol] 9.4 fL 9.5-13.5 [facility] Platelets Auto (Bld) [#/Vol] on 01-14-2024 Platelets (Bld) [#/Vol] 238 10 3/uL 150-450 [facility] Prothrombin time (PT)on PT Coag (PPP) [Time] 9.3 s 9.0-11.6 [facility] RBC Auto (Bld) [#/Vol]on RBC (Bld) [#/Vol] 4.96 10 6/uL 4.20-5.40 [facility] Serum or plasma albumin/glob ulin mass ratioon 01-14-2024 Albumin/Globulin [Mass ratio] 0.7 {ratio} [facility] Serum or plasma anion gap de terminationon 01-14-2024 Anion gap [Moles/Vol] 5.5 mmol/L [facility] Basophils Auto (Bld) [#/Vol] on 12-30-2023 Basophils (Bld) [#/Vol] 0.1 10 3/uL 0.0-0.1 [facility] Basophils/100 WBC Auto (Bld) on 12-30-2023 Basophils/100 WBC (Bld) 0.6 % 0.2-2.0 [facility] Cholesterol in LDL Calc [Mas s/Vol]on 12-30-2023 Cholesterol in LDL [Mass/Vol] 149.0 mg/dL [facility] Comment on above: <100 mg/dl [id number] 0-129 mg/dl NEAR OR ABOVE [id number] mg/dl BORDERLINE [id number] mg/dl HIGH>190 mg/dl VERY HIGH Cholesterol in VLDL Calc [Ma ss/Vol]on 12-30-2023 Cholesterol in VLDL [Mass/Vol] 18.6 mg/dL [facility] Eosinophils/100 WBC Auto (Bl d)on 12-30-2023 Eosinophils/100 WBC (Bld) 1.8 % 0.9-7.0 [facility] Erythrocyte distribution wid th Auto (RBC) [Ratio]on 12-30-2023 Erythrocyte distribution width (RBC) [Ratio] 13.2 % 11.0-15.0 [facility] Estimated glomerular filtrat ion rate (GFR) non- Americanon 12-30-2023 GFR/1.73 sq M.predicted among non-blacks MDRD (S/P/Bld) [Vol rate/Area] mL/min/{1.73_m2} >=60 [facility] Globulin Calc (S) [Mass/Vol] on 12-30-2023 Globulin (S) [Mass/Vol] 3.8 g/dL [facility] Hematocrit Auto (Bld) [Volum e fraction]on 12-30-2023 Hematocrit (Bld) [Volume fraction] 46.8 % 36.0-48.0 [facility] Hemoglobin [Mass/volume] in Bloodon 12-30-2023 Hemoglobin (Bld) [Mass/Vol] 14.7 g/dL 12.0-16.0 [facility] Laboratory - Chemistry and C hemistry - challengeon 12-30-2023 Albumin [Mass/Vol] 3.0 g/dL 3.4-5.0 [facility] ALP [Catalytic activity/Vol] 88 U/L 46-116 [facility] ALT [Catalytic activity/Vol] 23 U/L 14-59 [facility] AST [Catalytic activity/Vol] 20 U/L 15-37 [facility] Bilirubin [Mass/Vol] 0.5 mg/dL 0.2-1.0 [facility] Calcium [Mass/Vol] 9.2 mg/dL 8.5-10.1 [facility] Chloride [Moles/Vol] 107 mmol/L 98-107 [facility] Cholesterol [Mass/Vol] 224 mg/dL <=200 [facility] Cholesterol in HDL [Mass/Vol] 57 mg/dL 40-60 [facility] Comment on above: > or =60 mg/dl - LOW CARDIOVASCULAR RISK<40 mg/dl - HIGH CARDIOVASCULAR RISK CO2 [Moles/Vol] 31.1 mmol/L 21.0-32.0 [facility] Creatinine [Mass/Vol] 0.72 mg/dL 0.55-1.02 [facility] GFR/1.73 sq M.predicted MDRD (S/P/Bld) [Vol rate/Area] mL/min/{1.73_m2} >=60 [facility] Glucose [Mass/Vol] 100 mg/dL 74-106 [facility] Potassium [Moles/Vol] 4.5 mmol/L 3.5-5.1 [facility] Protein [Mass/Vol] 6.8 g/dL 6.4-8.2 [facility] Sodium [Moles/Vol] 145 mmol/L 136-145 [facility] Triglyceride [Mass/Vol] 93 mg/dL <=150 [facility] TSH Qn 2.655 m[IU]/L 0.358-3.740 [facility] Urea nitrogen [Mass/Vol] 9.0 mg/dL 7.0-18.0 [facility] Urea nitrogen/Creatinine [Mass ratio] 12.5 mg/mg [facility] Laboratory - Hematology and Cell countson 12-30-2023 Immature granulocytes/100 WBC (Bld) 0.2 % 0.0-0.5 [facility] Leukocytes [#/volume] correc wanda for nucleated erythrocytes in Blood by Automated counon 12-30-2023 WBC corrected for nucl RBC Auto (Bld) [#/Vol] 8.7 10 3/uL 4.0-11.0 [facility] Lymphocytes Auto (Bld) [#/Vo l]on 12-30-2023 Lymphocytes (Bld) [#/Vol] 1.8 10 3/uL 1.2-3.8 [facility] Lymphocytes/100 WBC Auto (Bl d)on 12-30-2023 Lymphocytes/100 WBC (Bld) 20.4 % 20.5-60.0 [facility] MCH Auto (RBC) [Entitic mass ]on 12-30-2023 MCH (RBC) [Entitic mass] 28.6 pg 26.7-34.0 [facility] MCHC Auto (RBC) [Mass/Vol]on 12-30-2023 MCHC (RBC) [Mass/Vol] 31.4 g/dL 29.9-35.2 [facility] MCV Auto (RBC) [Entitic vol] on 12-30-2023 MCV (RBC) [Entitic vol] 91.1 fL 81.0-99.0 [facility] Monocytes Auto (Bld) [#/Vol] on 12-30-2023 Monocytes (Bld) [#/Vol] 0.7 10 3/uL 0.3-0.8 [facility] Monocytes/100 WBC Auto (Bld) on 12-30-2023 Monocytes/100 WBC (Bld) 7.5 % 1.7-12.0 [facility] Neutrophils Auto (Bld) [#/Vo l]on 12-30-2023 Neutrophils (Bld) [#/Vol] 6.0 10 3/uL 1.4-6.5 [facility] Neutrophils/100 WBC Auto (Bl d)on 12-30-2023 Neutrophils/100 WBC (Bld) 69.5 % 43.0-75.0 [facility] No Panel Informationon 12-30 Eosinophils # (Auto) 0.2 10 3/uL 0.0-0.[address] [facility] Immature Granulocyte # (Auto) 0.02 10 3/uL 0.00-0.03 [facility] Platelet mean volume Auto (B ld) [Entitic vol]on 12-30-2023 Platelet mean volume (Bld) [Entitic vol] 9.3 fL 9.5-13.5 [facility] Platelets Auto (Bld) [#/Vol] on 12-30-2023 Platelets (Bld) [#/Vol] 199 10 3/uL 150-450 [facility] RBC Auto (Bld) [#/Vol]on RBC (Bld) [#/Vol] 5.14 10 6/uL 4.20-5.40 [facility] Serum or plasma albumin/glob ulin mass ratioon 12-30-2023 Albumin/Globulin [Mass ratio] 0.8 {ratio} [facility] Serum or plasma anion gap de terminationon 12-30-2023 Anion gap [Moles/Vol] 11.4 mmol/L [facility] Serum or plasma total choles terol/high density lipoprotein (HDL) cholesterol mass la 12-30-2023 Cholesterol.total/Ch olesterol in HDL [Mass ratio] 3.9 {ratio} [facility] Comment on above: 3.3 - 4.4 LOW RISK4. 4 - 7.1 AVERAGE RISK7.1 - 11.0 MODERATE RISK>11.0 HIGH RISK XR hip LT min 2V(w/wo pelvis )*on 01-08-2023 XR hip LT min 2V(w/wo pelvis)* [facility] Main [address] [address] XRay Report Signed Patient: Adriana Dinero I MR#: [id number] 056 : 1955 Acct:[id number] Age/Sex: 67 / F ADM Date: 01/08/23 [...] Pop Jr., D.O.01/08/2023 1:22 PM Dictation Location: [place] [address] Transcribed By: [facility] 01/08/23 1322 Dictated By: Montana Pop Jr, DO 01/08/23 1321 Signed By: 01/08/23 1322 Normal [facility] XR hip LT min 2V(w/wo pelvis)* [facility] nano[facility] Other XR hip LT min 2V(w/wo pelvis)* [facility] Main [facility] nano[facility] Other XR hip LT min 2V(w/wo pelvis)* [address] [place] [address] nanoMR Other XR hip LT min 2V(w/wo pelvis)* [place] [address] 99tests Other XR hip LT min 2V(w/wo pelvis)* XRay Report 99tests Other XR hip LT min 2V(w/wo pelvis)* Signed 99tests Other XR hip LT min 2V(w/wo pelvis)* Patient: Adriana Dinero I MR#: [id number] [facility] nanoMR Other XR hip LT min 2V(w/wo pelvis)* 056 99tests Other XR hip LT min 2V(w/wo pelvis)* : 1955 Acct:[id number] 99tests Other XR hip LT min 2V(w/wo pelvis)* Age/Sex: 67 / F ADM Date: 01/08/23 99tests Other XR hip LT min 2V(w/wo pelvis)* Loc: [facility] Room: Type: [facility] 99tests Other XR hip LT min 2V(w/wo pelvis)* Attending Dr: Samuel Chatman II, MD 99tests Other XR hip LT min 2V(w/wo pelvis)* Copies to: Samuel Chatman MD 99tests Other XR hip LT min 2V(w/wo pelvis)* Ordering Provider: Samuel Chatman MD 99tests Other XR hip LT min 2V(w/wo pelvis)* Date of Service: 01/08/23 99tests Other XR hip LT min 2V(w/wo pelvis)* XR/XR hip LT min 2V(w/wo pelvis)*: Left hip pain 99tests Other XR hip LT min 2V(w/wo pelvis)* LEFT HIP - 2 views: 99tests Other XR hip LT min 2V(w/wo pelvis)* CLINICAL HISTORY: Left hip pain for months. 99tests Other XR hip LT min 2V(w/wo pelvis)* COMPARISON: Hip series 11/22/2022 99tests Other XR hip LT min 2V(w/wo pelvis)* FINDINGS: Mild degenerative changes of both hips without acute bony process. 99tests Other XR hip LT min 2V(w/wo pelvis)* XR/XR hip LT min 2V(w/wo pelvis)* 99tests Other XR hip LT min 2V(w/wo pelvis)* IMPRESSION: 99tests Other XR hip LT min 2V(w/wo pelvis)* MILD DEGENERATIVE CHANGES OF BOTH HIPS WITHOUT ACUTE BONY PROCESS.. 99tests Other XR hip LT min 2V(w/wo pelvis)* Impression dictated by: Montana Pop Jr., D.OOdessa01/08/2023 1:22 PM 99tests Other XR hip LT min 2V(w/wo pelvis)* Dictation Location: [place] [address] 99tests Other XR hip LT min 2V(w/wo pelvis)* Transcribed By: VALERIE 01/08/23 [facility] 99tests Other XR hip LT min 2V(w/wo pelvis)* Dictated By: Montana Pop Jr, DO 01/08/23 [facility] 99tests Other XR hip LT min 2V(w/wo pelvis)* Signed By: 99tests Other XR hip LT min 2V(w/wo pelvis)* 01/08/23 [facility] 99tests Other Office Visit (Cardiology)on 12-09-2022 Follow-up visit [...] Former smoker Tobacco Use Screening; Status:Complete; Done: [id number] Patient Instructions Please bring all medicines, vitamins, [...] and provided the patient with 2 local merchant [facility] in [facility]. ASSESSMENT AND PLAN: 1. Supraventricular tachycardia, [...] will be scheduled Iban Lu MD, [facility] Surgical History Problems History of Back [...] Recorded: 09Dec2022 01:25PM Heart Rate78, L Radial Ednxnrpj766, LUE, Sitting Flpceqooi72, LUE, Sitting Height5 ft 6 in Swpifo101 lb BMI Flulaguysn63.03 kg/m2 BSA Calculated2.19 Tobacco Useb) No PHQ-2 [...] Dec 09 2022 2:09PM EST (Author) [facility] 023 Fall risk assessment b) One or more fall s in the last year -[facility] Heart-Alicja 250 DO Work Phone: Tobacco use status [facility] b) No [facility] Heart-[employer] 250 DO Work Phone: Tobacco Screening. Yes MP-Nor [facility] 250 DO Work Phone: XR hip BI w [id number] 11-22-19 XR hip BI w [id number] [facility] Main [address] [address] XRay Report Signed Patient: Adriana Dinero I MR#: [id number] 056 : 1955 Acct:[id number] Age/Sex: 67 / F ADM Date: 11/22/22 [...] Pop Jr., D.O.11/22/2022 1:12 PM Dictation Location: [place] [address] Transcribed By: [facility] 11/22/22 1312 Dictated By: Montana Pop Jr, DO 11/22/22 1311 Signed By: 11/22/22 1312 Normal [facility] XR lumbar spine AP/LAT/FLX/E XTon 11-22-2022 XR lumbar spine AP/LAT/FLX/EXT [address] [address] XRay Report Signed Patient: Adriana Dinero I MR#: [id number] 056 : 1955 Acct:[id number] Age/Sex: 67 / F ADM Date: 11/22/22 [...] Pop Jr., D.O.11/22/2022 1:11 PM Dictation Location: [place] [address] Transcribed By: [facility] 11/22/22 1311 Dictated By: Montana Pop Jr, DO 11/22/22 1309 Signed By: 11/22/22 1311 Normal [facility] CREATININEon 10-04-2022 Creatinine [Mass/Vol] 0.75 mg/dL Normal 0.55-1.02 [facility] Comment on above: Performed By: #### C CARLOS #### [facility] [address] [place] [address] [address] Henrietta Zavala EGFR-AF MACEDONIAN >60 Normal >=60 [facility] Comment on above: Performed By: #### C CARLOS #### [facility] [address] [place] [address] [address] Henrietta Zavala EGFR-NON AF MACEDONIAN >60 Normal >=60 [facility] Comment on above: Performed By: #### C CARLOS #### [facility] [address] [place] [address] Dr. Henrietta Zavala MRI LSPINE WO W [...] SHALA OMER Date: 2022-10-04 11:19 Normal [facility] Covid-19 PCR (CVDTB)on 07-11 SARS-CoV-2 (COVID-19) RNA DAVID+probe Ql (Unsp spec) Not detected Normal NOT DETECTED [facility] Comment on above: Result Comment: This test is not yet approved or cleared by the [place] FDA. When there are no FDA-approved or cleared tests available, and other criteria are met, FDA can make tests available under an emergency access mechanism called an Emergency Use Authorization (EUA). The EUA for this test is supported by the [place] of Health and Human Service's (HHS's) declaration [...] consistent with SARS-CoV-2. Performed By: #### [facility] #### [facility] [address] [place] [address] Dr. Henrietta Zavala XR HIPS JI 3_4V [...] CAITLYN CABRERA Date: 2022-04-15 07:00 Normal [facility] XR TSPINE 3 VIEWSon 04-15-20 [...] CAITLYN CABRERA Date: 2022-04-15 07:03 Normal [facility] CBC AUTO DIFFon 04-12-2022 BASO # 0.1 103/ul Normal 0.0-0.1 [facility] Comment on above: Performed By: #### C BC #### [facility] [address] [place] [address] Dr. Henrietta Zavala Basophils/100 WBC (Bld) 0.4 % Normal 0.2-2.0 [facility] Comment on above: Performed By: #### C BC #### [facility] [address] [place] [address] Dr. Henrietta Zavala EO # 0.1 103/ul Normal 0.0-0.7 [facility] Comment on above: Performed By: #### C BC #### [facility] [address] [place] [address] Dr. Henrietta Zavala Eosinophils/100 WBC (Bld) 0.4 % Critically low 0.9-7.0 [facility] Comment on above: Performed By: #### C BC #### [facility] [address] [place] [address] Dr. Henrietta Zavala Erythrocyte distribution width (RBC) [Ratio] 14.1 % Normal 11.0-15.0 [facility] Comment on above: Performed By: #### C BC #### [facility] [address] [place] [address] Dr. Henrietta Zavala Hematocrit (Bld) [Volume fraction] 44.9 % Normal 36.0-48.0 [facility] Comment on above: Performed By: #### C BC #### [facility] [address] [place] [address] Dr. Henrietta Zavala Hemoglobin (Bld) [Mass/Vol] 14.2 g/dL Normal 12.0-16.0 [facility] Comment on above: Performed By: #### C BC #### [facility] [address] [place] [address] Dr. Henrietta Zavala IG # 0.06 10e3/ul Critically high 0.00-0.03 [facility] Comment on above: Performed By: #### C BC #### [facility] [address] [place] [address] Dr. Henrietta Zavala IG % 0.5 % Normal 0.0-0.5 [facility] Comment on above: Performed By: #### C BC #### [facility] [address] [place] [address] [address] Henrietta Zavala LYMPH # 2.2 103/ul Normal 1.2-3.8 [facility] Comment on above: Performed By: #### C BC #### [facility] [address] [address] [address] Henrietta Zavala Lymphocytes/100 WBC (Bld) 19.4 % Critically low 20.5-60.0 [facility] Comment on above: Performed By: #### C BC #### [facility] [address] [address] [address] Henrietta Zavala MANUAL DIFF REQ NO Normal The [facility] Comment on above: Performed By: #### C BC #### [facility] [address] [place] [address] Dr. Henrietta Zavala MCH (RBC) [Entitic mass] 27.5 pg Normal 26.7-34.0 [facility] Comment on above: Performed By: #### C BC #### [facility] [address] [place] [address] Dr. Henrietta Zavala MCHC (RBC) [Mass/Vol] 31.6 g/dL Normal 29.9-35.2 [facility] Comment on above: Performed By: #### C BC #### [facility] [address] [place] [address] Dr. Henrietta Zavala MCV (RBC) [Entitic vol] 86.8 fL Normal 81.0-99.0 [facility] Comment on above: Performed By: #### C BC #### [facility] [address] [place] [address] Dr. Henrietta Zavala MONO # 0.9 103/ul Critically high 0.3-0.8 [facility] Comment on above: Performed By: #### C BC #### [facility] [address] [place] [address] Dr. Henrietta Zavala Monocytes/100 WBC (Bld) 7.9 % Normal 1.7-12.0 [facility] Comment on above: Performed By: #### C BC #### [facility] [id number] Henrietta Zavala NEUT # 8.1 103/ul Critically high 1.4-6.5 [facility] Comment on above: Performed By: #### C BC #### [facility] [id number] Henrietta Zavala Neutrophils/100 WBC (Bld) 71.4 % Normal 43.0-75.0 [facility] Comment on above: Performed By: #### C BC #### [facility] [address] [address] [address] Henrietta Zavala Platelet mean volume (Bld) [Entitic vol] 9.7 fL Normal 9.5-13.5 [facility] Comment on above: Performed By: #### C BC #### [facility] [address] [address] [address] Henrietta Zavala PLT 284 103/ul Normal 150-450 [facility] Comment on above: Performed By: #### C BC #### [facility] [address] [address] [address] Henrietta Zavala RBC 5.17 106/ul Normal 4.20-5.40 [facility] Comment on above: Performed By: #### C BC #### [facility] [address] [address] [address] Henrietta Zavala WBC 11.3 103/ul Critically high 4.0-11.0 [facility] Comment on above: Performed By: #### C BC #### [facility] [address] [address] [address] Henrietta Zavala LIPID PROFILEon 04-12-2022 CHOL-HDL RATIO NORM SEE BELOW Normal [facility] Comment on above: Result Comment: 3.3 - 4.4 LOW RISK 4.4 - 7.1 AVERAGE RISK 7.1 - 11.0 MODERATE RISK >11.0 HIGH RISK Performed By: #### C MP, LIPID #### [facility] [address] [address] [address] Henrietta Zavala Cholesterol [Mass/Vol] 235 mg/dL Critically high <=200 [facility] Comment on above: Performed By: #### C MP, LIPID #### [facility] [address] [address] [address] Henrietta Zavala Cholesterol in HDL [Mass/Vol] 47 mg/dL Normal 40-60 [facility] Comment on above: Performed By: #### C MP, LIPID #### [facility] [address] [address] [address] Henrietta Zavala Cholesterol in LDL [Mass/Vol] 160.8 mg/dL Normal [facility] Comment on above: Performed By: #### C MP, LIPID #### [facility] [address] [address] [address] Henrietta Zavala Cholesterol.total/Ch olesterol in HDL [Mass ratio] 5.0 {ratio} Normal [facility] Comment on above: Performed By: #### C MP, LIPID #### [facility] [address] [place] [address] Dr. Henrietta Zavala HDL NORMAL > or = 60 mg/dl - LO W CARDIOVASCULAR RISK <40 mg/dl - HIGH CARDIOVASCULAR RISK Normal [facility] Comment on above: Performed By: #### C MP, LIPID #### [facility] [address] [place] [address] Dr. Henrietta Zavala LDL CALC NORMAL SEE BELOW Normal [facility] Comment on above: Result Comment: <100 mg/dl OPTIMAL 100 - 129 mg/dl NEAR OR ABOVE OPTIMAL 130 - 159 mg/dl BORDERLINE HIGH 160 - 189 mg/dl HIGH >190 mg/dl VERY HIGH Performed By: #### C MP, LIPID #### [facility] [address] [place] [address] Dr. Henrietta Zavala Triglyceride [Mass/Vol] 136 mg/dL Normal <=150 [facility] Comment on above: Performed By: #### C MP, LIPID #### [facility] [address] [place] [address] Dr. Henrietta Zavala VLDL CALC 27.2 mg/dL Normal [facility] Comment on above: Performed By: #### C MP, LIPID #### [facility] [address] [place] [address] Dr. Henrietta Zavala PROF 14(COMP METB)on 022 Albumin [Mass/Vol] 3.2 g/dL Critically low 3.4-5.0 Th [facility] Comment on above: Performed By: #### C MP, LIPID #### [facility] [address] [address] [address] Henrietta Zavala Albumin/Globulin [Mass ratio] 0.8 {ratio} Normal [facility] Comment on above: Performed By: #### C MP, LIPID #### [facility] [address] [address] [address] Henrietta Zavala ALP [Catalytic activity/Vol] 127 U/L Critically high 46-116 [facility] Comment on above: Performed By: #### C MP, LIPID #### [facility] [address] [place] [address] Dr. Henrietta Zavala ALT [Catalytic activity/Vol] 55 U/L Normal 14-59 [facility] Comment on above: Performed By: #### C MP, LIPID #### [facility] [address] [address] [address] Henrietta Zavala Anion gap [Moles/Vol] 13.6 mmol/L Normal [facility] Comment on above: Performed By: #### C MP, LIPID #### [facility] [address] [place] [address] Dr. Henrietta Zavala AST [Catalytic activity/Vol] 24 U/L Normal 15-37 [facility] Comment on above: Performed By: #### C MP, LIPID #### [facility] [address] [address] [address] Henrietta Zavala Bilirubin [Mass/Vol] 0.3 mg/dL Normal 0.2-1.0 [facility] Comment on above: Performed By: #### C MP, LIPID #### [facility] [address] [address] [address] Henrietta Zavala Calcium [Mass/Vol] 8.8 mg/dL Normal 8.5-10.1 [facility] Comment on above: Performed By: #### C MP, LIPID #### [facility] [address] [address] [address] Henrietta Zavala Chloride [Moles/Vol] 107 mmol/L Normal 98-107 [facility] Comment on above: Performed By: #### C MP, LIPID #### [facility] [address] [place] [address] Dr. Henrietta Zavala CO2 [Moles/Vol] 25.6 mmol/L Normal 21.0-32.0 [facility] Comment on above: Performed By: #### C MP, LIPID #### [facility] [address] [place] [address] Dr. Henrietta Zavala Creatinine [Mass/Vol] 0.77 mg/dL Normal 0.55-1.02 [facility] Comment on above: Performed By: #### C MP, LIPID #### [facility] [address] [place] [address] Dr. Henrietta Zavala EGFR-AF MACEDONIAN >60 Normal >=60 [facility] Comment on above: Performed By: #### C MP, LIPID #### [facility] [address] [place] [address] Dr. Henrietta Zavala EGFR-NON AF MACEDONIAN >60 Normal >=60 [facility] Comment on above: Performed By: #### C MP, LIPID #### [facility] [address] [place] [address] Dr. Henrietta Zavala Globulin (S) [Mass/Vol] 3.8 g/dL Normal [facility] Comment on above: Performed By: #### C MP, LIPID #### [facility] [address] [address] [address] Henrietta Zavala Glucose [Mass/Vol] 90 mg/dL Normal 74-106 [facility] Comment on above: Performed By: #### C MP, LIPID #### [facility] [address] [place] [address] Dr. Henrietta Zavala Potassium [Moles/Vol] 4.2 mmol/L Normal 3.5-5.1 [facility] Comment on above: Performed By: #### C MP, LIPID #### [facility] [address] [place] [address] Dr. Henrietta Zavala Protein [Mass/Vol] 7.0 g/dL Normal 6.4-8.2 [facility] Comment on above: Performed By: #### C MP, LIPID #### [facility] [address] [address] [address] Henrietta Zavala Sodium [Moles/Vol] 142 mmol/L Normal 136-145 [facility] Comment on above: Performed By: #### C MP, LIPID #### [facility] [address] [address] [address] Henrietta Zavala Urea nitrogen [Mass/Vol] 13.0 mg/dL Normal 7.0-18.0 [facility] Comment on above: Performed By: #### C MP, LIPID #### [facility] [address] [address] [address] Henrietta Zavala Urea nitrogen/Creatinine [Mass ratio] 16.9 mg/mg Normal [facility] Comment on above: Performed By: #### C MP, LIPID #### [facility] [address] [place] [address] Dr. Henrietta Zavala Tobacco Screening.on 021 Fall risk assessment a) No falls within the last year [facility] 250 DO Work Phone: Tobacco use status CPHS b) No [facility] 250 DO Work Phone: KNEE LEFT 3 [facility] 03-30-2021 KNEE LEFT 3 [facility] [address] [place] [phone] ======== Patient Name: ADRIANA RAYGOZA : 1955 Sex: F Age: Race: White Pt. Location: Patient Status: Ordered Date: 03/30/2021 9:00:00 AM Completed Date: 03/30/2021 09:07 AM Requesting Provider: RAMANDEEP PATEL Attending Provider: Report Copy To: Signs & Symptoms: M25.562 Pain in left knee I10 History: Deb Comments: , , , Ordering Provider - RAMANDEEP PATEL MD , Exam: KNEE LEFT 3 [facility] ======== KNEE LEFT 3 S 03/30/2021 [...] findings. Electronically signed: Jesse Lazaro. Transcribed by: [email or web address], User Resident: Electronically Signed by: JESSE LAZARO @ 03/30/2021 11:00 AM Normal [facility] Comment on above: Order Comment: , , = ========= , Ordering Provider - RAMANDEEP PATEL MD , KNEE RIGHT 3 Son KNEE RIGHT 3 [facility] [address] [place] [phone] ======== Patient Name: ADRIANA RAYGOZA : 1955 Sex: F Age: Race: White Pt. Location: 84 Patient Status: O Ordered Date: 03/30/2021 9:05:00 AM Completed Date: 03/30/2021 09:07 AM Requesting Provider: RAMANDEEP PATEL Attending Provider: RAMANDEEP PATEL Report Copy To: Signs & Symptoms: M25.569 Pain in unspecified knee I10 History: [place] Comments: Evaluate Exam: KNEE RIGHT 3 VWS [...] reports Electronically signed: Jesse Lazaro. Transcribed by: [email or web address], User Resident: SHALA EATON Electronically Signed by: JESSE LAZARO @ 03/30/2021 03:52 PM I personally read this/these film(s) with this resident Normal [facility] Comment on above: Order Comment: Evalu ate MRI LUMBAR SP W & WO CONTRAS Ton 10-11-2020 MRI LUMBAR SP W & WO CONTRAST STUDY: MRI LUMBAR SP W WO CONTRAST; 10/11/2020 11:35 am INDICATION: POST LAMINECTOMY SYNDROME. COMPARISON: None. ACCESSION NUMBER(S): [id number] ORDERING CLINICIAN: Denis Donohue TECHNIQUE: The lumbar [...] osteomyelitis. * THIS EXAMINATION WAS INTERPRETED AT [facility] Normal [facility] LUMB SP COMP W FLEX/EXT 6 VW Son 09-12-2020 LUMB SP COMP W FLEX/EXT 6 VWS STUDY: LUMB SP COMP W FLEX/EXT 6 VWS ; ; 09/12/2020 8:45 am INDICATION: PAIN. COMPARISON: None. ACCESSION NUMBER(S): [id number] ORDERING CLINICIAN: Denis Donohue FINDINGS: Status post [...] stenosis at L5-S1 level. Normal [facility] Ambulatory Clinical Summaryo n 05-22-2020 Ambulatory Clinical Summary {[id number] }CD:[id number] Normal [facility] Coding Summary.on 05-10-2020 Coding Summary. CODING DATE: 05/10/2020 FINAL [facility] STATUS: Home (Routine DC) PAYOR: Commercial Insurance [...] Jasmine CphT Date Saved: 05/10/2020 04:39 pm [facility] Coding Summary.on 05-08-2020 Coding Summary. CODING DATE: 05/08/2020 [facility] STATUS: Home (Routine DC) PAYOR: Commercial [...] Jasmine CphT Date Saved: 05/08/2020 12:00 pm [facility] IntraOperative Documentson 0 05-08-2020 IntraOperative Documents [id number]#1. 00CD:127 [facility] Postoperative Documentson Postoperative Documents [id number]#1.0 0CD:127 [facility] Coding Summary.on 05-04-2020 Coding Summary. CODING DATE: 05/04/2020 [facility] STATUS: Home (Routine DC) PAYOR: Commercial Insurance APC DESCRIPTION 5301 Level 1 Upper GI Procedures ADMIT DX: REASON FOR VISIT DX: R10.13 Epigastric pain FINAL DX: PRINCIPAL: K29.50 Unspecified chronic gastritis without bleeding SECONDARY: K25.9 Gastric ulcer, unspecified as acute or chronic, without hemorrhage or perforation R11.2 Nausea with vomiting, unspecified PYMT PROC APC STAT DESCRIPTION DOCTOR NAME DATE [id number] Reid CLINE MD 05/01/2020 phagogastroduodenoscop y, flexible, transoral; with biopsy, single or multiple 74079 Anesthesia for upper Elliot Tena Jr, DO [...] Date Saved: 05/04/2020 03:45 pm Normal [facility] Progress Note-Physicianon Progress Note-Physician Patient: ADRIANA DINERO [...] Cardiovascular: Regular rhythm. Neurologic: Alert, Oriented. Plan [place] [employer] Anesthesiologists (ASA) physical status classification: Class II. Anesthetic Preoperative Plan Anesthesia: General. . Anesthetic plan, risks, benefits, and alternatives discussed with the patient and/or family. Communication: face to face with (patient 5 minutes, Patient educated on smoking cesstation). Normal [facility] Comment on above: Result Comment: Elec tronically Signed By: Elliot Tena Jr, DO\.br\Date and Time Signed: 05/03/20 09:34 EDT Main OR Intraoperative Recor don 05-02-2020 Main OR Intraoperative Record IntraOp Document Type FT Summary Primary Physician: Reid NIEVES MD Finalized Date/Time: 05/02/20 13:35:19 Pt. Name: ADRIANA DINERO Shoshana VeraB./Sex: 1955 Female Med Rec #: [id number] Physician: Reid NIEVES MD Financial #: [id number] Pt. 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 Condition Intact, [place], Warm, and Dry Airway Maintenance Oxygen in Use? No Outcomes Met? Yes Last Modified By: Savannah Chavis RN 05/01/20 06:57:50 Post-Care Text: The patient is free from signs and symptoms of injury related to transfer/transport General Comments: Report given to cell lead. RHRN Medication Administration FT Pre-Care Text: Verifies [...] Altagracia Bowen CST 05/02/20 13:35 Normal [facility] Consenton 05-01-2020 Consent [id number] 0CD:127 Normal [facility] Consent for Treatmenton 04-11 Consent for Treatment [id number]#1.0 0CD:127 Normal [facility] Discharge Instructionson Discharge Instructions [id number]#1.0 0CD:127 [facility] History and Physicalon 05-01 History and Physical [id number]#1.0 0CD:127 Normal [facility] Inpatient Patient Summaryon 05-01-2020 Inpatient Patient Summary [address] [address] [facility] Clinical Discharge Instructions PERSON INFORMATION Name: ADRIANA DINERO I [facility]#:[id number] PHYSICIANS Admitting Physician: Reid NIEVES MD Attending Physician: Reid NIEVES MD PCP: TOBY QUINTANA MD Discharge Diagnosis: Antral ulcer Comment: PATIENT EDUCATION INFORMATION Instructions: Medication Leaflets: Follow up: With: Address: When: [facility] [address] [place] [address] Within 2 weeks Type Location Start [facility] Follow Up [facility] 05/22/2020 2:15 PM 05/22/2020 2:30 PM Confirmed MEDICATION LIST Medications to Continue Taking That Have Changed [facility] [facility], [address], [place] [id number], [phone] START: omeprazole (omeprazole 40 mg Cap-DR) 1 [...] Mouth every 8 hours. Refills: 1. Comment: [facility] IntraOperative Documentson 0 05-01-2020 IntraOperative Documents [id number]#1.0 0CD:127 [facility] IntraOperative Documents [id number] 0CD:127 [facility] Main OR PACU I Recordon 04-11 Main OR PACU I Record PACU Phase I Document Type FT Summary Primary Physician: Reid NIEVES MD Finalized Date/Time: 05/01/20 09:14:39 Pt. Name: ADRIANA DINERO Shoshana Jerome/Sex: 1955 Female Med Rec #: [id number] Physician: Reid NIEVES MD Financial #: [id number] Pt. Type: O Room/Bed: / Admit/Disch: 05/01/20 [...] Signed By: Ami Donaldson RN 05/01/20 09:14 [facility] Main OR Preoperative Recordo n 05-01-2020 Main OR Preoperative Record Holding Area Document Type FT Summary Primary Physician: Reid NIEVES MD Finalized Date/Time: 05/01/20 07:37:17 Pt. Name: ADRIANA DINERO/Sex: 1955 Female Med Rec #: [id number] Physician: Reid NIEVES MD Financial #: [id number] Pt. Type: O Room/Bed: / Admit/Disch: 05/01/20 [...] Lizbeth Diamond RN 05/01/20 07:37 Normal [facility] Monitor Recordon 05-01-2020 Monitor Record [id number]. 00CD:127 Normal [facility] Patient Education - Texton 0 05-01-2020 Patient Education - Text Normal [facility] Ambulatory Clinical Summaryo n 04-24-2020 Ambulatory Clinical Summary {[id number]}CD:[id number] Normal [facility] Auto Diffon 04-24-2020 Basophils/100 WBC (Bld) 0.5 % Normal 0.0-2.0 [facility] Comment on above: Order Comment: Order Added by Discern Expert. Performed By: #### 2 [id number], [id number], [id number], [id number], [id number] #### [facility] Laboratory [address] [place] [address] Basophils/Leukocytes Auto (Bld) [Pure # fraction] 0.0 E9/L Normal 0.0-0.2 [facility] Comment on above: Order Comment: Order Added by Discern Expert. Performed By: #### 2 [id number], 5208525, 6864969, 5748771, [id number] #### [facility] [address] [place] [address] Eosinophils/100 WBC (Bld) 2.9 % Normal 0.0-8.0 [facility] Comment on above: Order Comment: Order Added by Discern Expert. Performed By: #### 2 795015, 9652589, 5363616, 8381776, [id number] #### [facility] [address] [place] [address] Eosinophils/Leukocyt es Auto (Bld) [Pure # fraction] 0.3 E9/L Normal 0.0-0.5 [facility] Comment on above: Order Comment: Order Added by Discern Expert. Performed By: #### 2 070086, 4175475, 3006857, 8925064, [id number] #### [facility] [address] [place] [address] Lymphocytes/100 WBC (Bld) 23.7 % Normal 14.0-50.0 [facility] Comment on above: Order Comment: Order Added by Discern Expert. Performed By: #### 2 838772, 6068261, 7926518, 7940587, [id number] #### [facility] [address] [place] [address] Lymphocytes/Leukocyt es Auto (Bld) [Pure # fraction] 2.2 E9/L Normal 1.0-4.0 [facility] Comment on above: Order Comment: Order Added by Discern Expert. Performed By: #### 2 985399, 3308660, 6546209, 0890338, [id number] #### [facility] [address] [place] [address] Monocytes/100 WBC (Bld) 7.4 % Normal 4.0-14.0 [facility] Comment on above: Order Comment: Order Added by Discern Expert. Performed By: #### 2 259022, 5658746, 2154655, 1660974, [id number] #### [facility] Laboratory [address] [place] [address] Monocytes/Leukocytes Auto (Bld) [Pure # fraction] 0.7 E9/L Normal 0.2-1.0 [facility] Comment on above: Order Comment: Order Added by Discern Expert. Performed By: #### 2 630785, 4355329, 0795604, 0899629, [id number] #### [facility] [address] [place] [address] Neutrophils/100 WBC (Bld) 65.5 % Normal 36.0-75.0 [facility] Comment on above: Order Comment: Order Added by Discern Expert. Performed By: #### 2 918582, 4789447, 3277099, 4468094, [id number] #### [facility] [address] [place] [address] Neutrophils/Leukocyt es Auto (Bld) [Pure # fraction] 6.0 E9/L Normal 2.0-7.5 [facility] Comment on above: Order Comment: Order Added by Discern Expert. Performed By: #### 2 167845, 0438053, 3871374, 3300500, [id number] #### [facility] [address] [place] [address] CBC w/ Auto Diffon 0 Erythrocyte distribution width (RBC) [Ratio] 16.1 % High 10.9-14.2 [facility] Comment on above: Performed By: #### 2 677875, 2416284, 2166404, 9843967, [id number] #### [facility] [address] [place] [address] Hematocrit (Bld) [Volume fraction] 45.1 % Normal 34.0-46.0 [facility] Comment on above: Performed By: #### 2 726810, 2772792, 8793782, 9821735, [id number] #### [facility] [address] [place] [address]257 Hemoglobin (Bld) [Mass/Vol] 15.0 g/dL Normal 12.0-16.0 [facility] Comment on above: Performed By: #### 2 915826, 0427538, 7003932, 1701641, 37612563 #### [facility] [address] [place] [address] 94918 MCH (RBC) [Entitic mass] 27.2 pg Normal 27.0-34.0 [facility] Comment on above: Performed By: #### 2 970383, 8084964, 1956363, 7151593, 60695215 #### [facility] [address] [place] [address] 96649 MCHC (RBC) [Mass/Vol] 33.2 g/dL Normal 31.4-36.0 [facility] Comment on above: Performed By: #### 2 461509, 6156028, 8162104, 4945430, 83752683 #### [facility] [address] [place] [address] 15418 MCV (RBC) [Entitic vol] 82.0 fL Normal 80.0-100.0 [facility] Comment on above: Performed By: #### 2 274530, 6767097, 4662964, 7338025, 98040695 #### [facility] [address] [place] [address] 67980 Platelet mean volume (Bld) [Entitic vol] 7.3 fL Normal 6.4-10.8 [facility] Comment on above: Performed By: #### 2 292978, 6202095, 6143589, 1565718, 40017294 #### [facility] [address] [place] [address] 57717 Platelets (Bld) [#/Vol] 253.0 E9/L Normal 150.0-500.0 [facility] Comment on above: Performed By: #### 2 664901, 0758387, 7280317, 3248383, 60254431 #### [facility] [address] [place] [address] 05394 RBC (Bld) [#/Vol] 5.5 E12/L Normal 4.3-5.9 [facility] Comment on above: Performed By: #### 2 446384, 7363843, 2282881, 9760230, 05081976 #### [facility] [address] [place] [address] 68139 WBC corrected for nucl RBC Auto (Bld) [#/Vol] 9.1 E9/L Normal 4.0-11.0 [facility] Comment on above: Performed By: #### 2 498514, 1070070, 0212385, 9502421, 92817827 #### [facility] [address] [place] [address] CMPon 04-24-2020 Albumin [Mass/Vol] 3.7 g/dL Normal 3.3-5.0 [facility] Comment on above: Performed By: #### 2 620155, 8028428, 0954088, 5335893, 75979656 #### [facility] [address] [place], [place] [address] Albumin [Mass/Vol] 1.0 g/dL Low 1.1-2.2 [facility] Comment on above: Performed By: #### 2 098397, 9716049, 4009831, 8214921, 24174088 #### [facility] [address] [place] [address] 60031 ALP [Catalytic activity/Vol] 107 Int._Unit/L High 21-98 [facility] Comment on above: Performed By: #### 2 355907, 9593168, 5404187, 3980305, 65513887 #### [facility] [address] [place] [address] 60406 ALT No additional P-5'-P [Catalytic activity/Vol] 17 Int._Unit/L Normal 6-46 [facility] Comment on above: Performed By: #### 2 688557, 7011314, 9540831, 2919943, 32422099 #### [facility] [address] [place] [address] Anion gap [Moles/Vol] 11 mmol/L Normal 6-16 [facility] Comment on above: Performed By: #### 2 005205, 3088643, 9432341, 9601249, 00593288 #### [facility] [address] [place] [address] AST [Catalytic activity/Vol] 21 Int._Unit/L Normal 5-43 [facility] Comment on above: Performed By: #### 2 912336, 7679371, 5064753, 6562863, 69645405 #### [facility] [address] [place] [address] Bilirubin [Mass/Vol] 0.5 mg/dL Normal 0.0-1.1 [facility] Comment on above: Performed By: #### 2 327460, 9841657, 5497122, 8182128, 70138827 #### [facility] [address] [place] [address] Calcium [Mass/Vol] 9.0 mg/dL Normal 8.9-11.1 [facility] Comment on above: Performed By: #### 2 557364, 0788206, 6280463, 8177313, 97174434 #### [facility] [address] [place] [address] Chloride [Moles/Vol] 107 mmol/L Normal 101-111 [facility] Comment on above: Performed By: #### 2 430799, 0486670, 0248371, 4921554, 09624126 #### [facility] [address] [place] [address] CO2 [Moles/Vol] 27 mmol/L Normal 21-31 [facility] Comment on above: Performed By: #### 2 252504, 8576953, 9876673, 8488350, 09543326 #### [facility] [address] [place] [address] Creatinine [Mass/Vol] 0.8 mg/dL Normal 0.5-1.3 [facility] Comment on above: Performed By: #### 2 874750, 7558448, 1385894, 4259054, 78914680 #### [facility] [address] [place] [address] Globulin (S) [Mass/Vol] 3.7 g/dL Normal 1.4-4.0 [facility] Comment on above: Performed By: #### 2 437427, 9410812, 0154011, 4123287, 49361302 #### [facility] [address] [place] [address] Glucose [Mass/Vol] 134 mg/dL Normal 55-199 [facility] Comment on above: Result Comment: If t his glucose result represents a fasting glucose, interpretation should refer to the following reference range: 55-99 mg/dL Performed By: #### 2 748686, 1597686, 1290459, 6323571, 12396572 #### [facility] [address] [place] [address] Potassium [Moles/Vol] 3.9 mmol/L Normal 3.5-5.3 [facility] Comment on above: Performed By: #### 2 307045, 7413799, 2912850, 8674148, 56708856 #### [facility] [address] [place] [address] Protein [Mass/Vol] 7.4 g/dL Normal 6.0-7.8 [facility] Comment on above: Performed By: #### 2 121605, 2490063, 5813679, 5178025, 68407109 #### [facility] [address] [place] [address] Sodium [Moles/Vol] 141 mmol/L Normal 135-145 [facility] Comment on above: Performed By: #### 2 118506, 6501236, 0669608, 7617815, 91661043 #### [facility] [address] [place] [address] Urea nitrogen [Mass/Vol] 17 mg/dL Normal 5-21 [facility] Comment on above: Performed By: #### 2 446642, 7602273, 7636348, 8261926, 60517380 #### [facility] [address] [place] [address] Urea nitrogen/Creatinine [Mass ratio] 21 No Units High 10-20 [facility] Comment on above: Performed By: #### 2 715772, 1312649, 1165718, 8492239, 12988566 #### [facility] [address] [place] [address] Consent for Treatmenton 04-10 Consent for Treatment [id number] 0CD:127 Normal [facility] Lipase Levelon 04-24-2020 Lipase [Catalytic activity/Vol] 40 unit/L Normal 13-58 [facility] Comment on above: Performed By: #### 2 003782, 5230530, 0010638, 7410313, 40455027 #### [facility] [address] [place] [address] Physician Orderon 04-24-2020 Physician Order [id number]#1.00 CD:127 Normal [facility] eGFRon 04-24-2020 GFR/1.73 sq M predicted among blacks MDRD (S/P/Bld) [Vol rate/Area] mL/min/{1.73_m2} Normal >=59 [facility] Comment on above: Order Comment: Order added by Discern Expert. Result Comment: eGFR is race adjusted. AA=. Performed By: #### 2 951700, 5590892, 5209481, 7109617, 66078535 #### [facility] [address] [place] [address] GFR/1.73 sq M predicted among non-blacks MDRD (S/P/Bld) [Vol rate/Area] mL/min/{1.73_m2} Normal >=59 [facility] Comment on above: Order Comment: Order added by Discern Expert. Result Comment: Steam Service Inspector farhan kidney disease could be indicated at eGFR's of less than 60 mL/min/1.73m2. Kidney failure is indicated at less than 15 mL/min/1.73m2. Performed By: #### 2 902791, 9229819, 2902412, 7280598, 64861092 #### [facility] [address] [place] [address] PROGRESSon 11-04-2019 PROGRESS HNO ID: [id number] Author: Bridger Ma Service: ? Author Type: Physician Type: Progress Notes Filed: 11/04/2019 5:12 PM Note Text: Bridger Ma MD Department of Orthopaedics Orthopaedics [address] [address] Dept: [phone] October 05, 2019 CHIEF COMPLAINT: New Patient [...] electronic medical record. Caitlyn Cantu, LIZZY 970 Pending sale to [facility] [address] Toby Quintana MD [address] [place] [phone] This note was partially generated using KARALIT voice recognition system, and there may be some incorrect words, spellings, and punctuation that were not noted in checking the note before saving. 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 Patient had an x-ray done at [facility] on 11/02/18 and a MRI on 11/30/18. Patient hand carried copies of the reports and films on a CD. with patient today. Referred by Caitlyn Cantu. Taking Fowler and Naproxen for the pain and does not help. Using a walker today and as needed at home. Bridger Ma MD 11/04/2019 5:12 PM Signed Bridger Ma MD Department of Orthopaedics Orthopaedics [address] [place] [address] Dept: [phone] October 05, 2019 CHIEF COMPLAINT: New Patient [...] or electronic medical record. LIZZY Graham 9[address] Pending sale to [facility] [address] Toby Quintana MD [address] [place] [phone] This note was partially generated using KARALIT voice recognition system, and there may be some incorrect words, spellings, and punctuation that were not noted in checking the note before saving. Bridger Ma MD Referring Provider: CAITLYN CANTU [[id number]] Allergies As of Date: 10/05/2019 Noted Allergy [...] mg injection (CELESTONE)Disp: Rfl: [facility] [5000054] Order #: [id number]: 1 Large Joint Arthro/Inj: R knee joint [TIH770] Order #: [id number] betamethasone acetate-betamethasone sodium phosphate 6 mg injection [...] Status:Closed by BRIDGER MA MD on 11/04/19 [facility] PROGRESSon 10-05-2019 PROGRESS HNO ID: [id number] Author: Eleanor Talbot Ma Service: ? Author [...] unable to work in the garden or crop picker anything off of the ground. Patient had an x-ray done at [facility] on 11/02/18 and a MRI on 11/30/18. Patient hand carried copies of the reports and films on a CD. with patient today. Referred by Caitlyn Cantu. Taking Fowler and Naproxen for the pain and does not help. Using a walker today and as needed at home. Normal [facility] CREATININEon 08-26-2019 Creatinine [Mass/Vol] 0.80 mg/dL Normal 0.50 - 1.05 [facility] Comment on above: Performed By: #### C REAT #### [address] [address] Creatinine [Mass/Vol] mg/dL Normal >60 [facility] Comment on above: Performed By: #### C REAT #### [address] [address] Result Comment: CALC ULATIONS OF ESTIMATED GFR ARE PERFORMED USING THE MDRD STUDY EQUATION FOR THE IDMS-TRACEABLE CREATININE METHODS. CLIN CHEM 2007;53:766-72 ELECTROLYTE PANELon 08-26-20 19 Anion gap [Moles/Vol] 14 mmol/L Normal - 20 [facility] Comment on above: Performed By: #### E LECT #### [address] [address] Chloride [Moles/Vol] 104 mmol/L Normal 98 - 107 [facility] Comment on above: Performed By: #### E LECT #### [address] [address] HCO3 (Bld) [Moles/Vol] 29 mmol/L Normal 21 - 32 [facility] Comment on above: Performed By: #### E LECT #### [address] [address] Potassium [Moles/Vol] 4.6 mmol/L Normal 3.5 - 5.3 [facility] Comment on above: Performed By: #### E LECT #### [address] [address] Sodium [Moles/Vol] 142 mmol/L Normal 136 - 145 [facility] Comment on above: Performed By: #### E LECT #### [facility] [address] [place] [address] UREA NITROGENon 08-26-2019 Urea nitrogen [Mass/Vol] 14 mg/dL Normal 6 - 23 [facility] Comment on above: Performed By: #### U CARLOS #### [address] [address] [facility] CARDIAC STRESS/REST INJE CTIONon 08-25-2019 [facility] CARDIAC STRESS/REST INJECTION Patient Name: ADRIANA DINERO STUDY: MYOCARDIAL PERFUSION STRESS TEST WITH LEXISCAN Performing facility: [facility], [address] [place] [address], [address], [place] [address] [facility] Provider: GURU LU PCP: Dr. Poli QUINTANA Supervising provider: Poli VILLAFANA INDICATION: DYSPNEA EDEMA HISTORY: Gender: F; Age: 64 y/o ; Height: 170.18 cm; Weight: 127.503400 kg. SOB High Cholesterol; Family HX CAD; PALPITATIONS COMPARISON: ACCESSION NUMBER(S): [id number] ORDERING CLINICIAN: IBAN LU TECHNIQUE: TWO DAY [...] obtained outside of [facility] [id number] Normal [facility] CNOVon 07-07-2019 CNOV Office Visit (SPNMED ) ADRIANA DINERO ([id number]) 1955 F Date Time Provider Department 07/07/19 9:40 AM [facility] During your visit today, we recorded the following information about you: Pulse Blood pressure Weight Height 80/minute 126/55 124.1 kg 1.676 m LIZZY Graham 07/07/2019 1:08 PM Signed BEVERLEY Lopez [facility] [address] [place] [address] 07/07/2019 Assessment Diagnosis: Encounter Diagnosis ICD-10-CM 1. [...] told for multiple years that she has wysu-rk-skqh arthritis in the right knee and this [...] record for those providers who practice within [facility] or with access to [employer] via MD Connect, or via letter. - [...] past--performed in [address] Jones in [place]. The procedure was a spinal laminectomy and fusion L2-4, and subsequent revision L2-5 lami/fusion with posterior hardware and interbody cages. 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 Author Type: Physician Nurses Aide Type: Progress Notes Filed: 07/07/2019 1:08 PM Note Text: [facility] [address] [place] [address] 07/07/2019 Assessment Diagnosis: Encounter Diagnosis ICD-10-CM 1. [...] told for multiple years that she has ubni-jk-josr arthritis in the right knee and this [...] record for those providers who practice within [facility] or with access to [employer] via [facility] Connect, or via letter. SUBJECTIVE: [...] past--performed in [address] Jones in [place]. The procedure was a spinal laminectomy and fusion L2-4, and subsequent revision L2-5 lami/fusion with posterior hardware and interbody cages. 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 IMAGING STUDIES: See above Normal [facility] CT-CT cervical spine w con I MPORTon 04-08-2019 CT-CT cervical spine w con IMPORT Images were obtained outside of [facility] [id number] Normal [facility] CT-CT cervical spine w con IMPORT Images were obtained outside of [facility] [id number] Normal [facility] CT-CT cervical spine w con IMPORT Images were obtained outside of [facility] [id number] Normal [facility] CT-CT lumbar spine w con IMP Edi 04-08-2019 CT-CT lumbar spine w con IMPORT Images were obtained outside of [facility] [id number] Normal [facility] CT-CT lumbar spine w con IMPORT Images were obtained outside of [facility] [id number] Normal [facility] CT-CT lumbar spine w con IMPORT Images were obtained outside of [facility] [id number] Normal [facility] OT-IR myelogram spine total IMPORTon 04-08-2019 OT-IR myelogram spine total IMPORT Images were obtained outside of [facility] [id number] Normal [facility] OT-IR myelogram spine total IMPORT Images were obtained outside of [facility] [id number] Normal [facility] OT-IR myelogram spine total IMPORT Images were obtained outside of [facility] [id number] Normal [facility] OT-MRI C-SPINE WO CON IMPORT on 02-25-2019 OT-MRI C-SPINE WO CON IMPORT Images were obtained outside of [facility] [id number] Normal [facility] OT-XR KNEE RT 4V OR > IMPORT on 11-30-2018 OT-XR KNEE RT 4V OR > IMPORT Images were obtained outside of [facility] [id number] [facility] Vital Signs Date Time Vital Sign Value Performing Clinician Facility 08-12-2024 09: Body height 165.1 cm [facility] 08-12-2024 09: Body mass index (BMI) [Ratio] 39.2 kg/m2 [facility] 08-12-2024 09: Body weight 106.76 kg [facility] 08-12-2024 09: Diastolic blood pressure 72 mm[Hg] [facility] 08-12-2024 09: Heart rate 75 /min [facility] 08-12-2024 09:23-0400 Respiratory rate 16 /min [facility] 08-12-2024 09:23-0400 SaO2% (BldA) [Mass fraction] 96 % [facility] 08-12-2024 09:23-0400 Systolic blood pressure 128 mm[Hg] [facility] 04-30-2024 09:12-0400 Body height 165.1 cm [facility] 04-30-2024 09:12-0400 Body mass index (BMI) [Ratio] 39.6 kg/m2 [facility] 04-30-2024 09:12-0400 Body weight 107.95 kg [facility] 04-30-2024 09:12-0400 Diastolic blood pressure 74 mm[Hg] [facility] 04-30-2024 09:12-0400 Heart rate 75 /min [facility] 04-30-2024 09:12-0400 Systolic blood pressure 109 mm[Hg] [facility] 03-22-2024 13:18-0400 Body height 165.1 cm [facility] 03-22-2024 13:18-0400 Body mass index (BMI) [Ratio] 39.7 kg/m2 [facility] 03-22-2024 13:18-0400 Body weight 108.4 kg [facility] 03-22-2024 13:18-0400 Diastolic blood pressure 77 mm[Hg] [facility] 03-22-2024 13:18-0400 Heart rate 75 /min [facility] 03-22-2024 13:18-0400 Systolic blood pressure 127 mm[Hg] [facility] 02-10-2024 13:04-0400 Body height 167.64 cm [facility] 02-10-2024 13:04-0400 Body mass index (BMI) [Ratio] 38.5 kg/m2 [facility] 02-10-2024 13:04-0400 Body weight 108.4 kg [facility] 02-10-2024 13:04-0400 Diastolic blood pressure 73 mm[Hg] [facility] 02-10-2024 13:04-0400 Heart rate 85 /min [facility] 02-10-2024 13:04-0400 Systolic blood pressure 105 mm[Hg] [facility] 01-19-2024 08:44-0400 Body height 167.64 cm [facility] 12-30-2023 09:55-0500 Body height 167.64 cm [facility] 12-30-2023 09:55-0500 Body mass index (BMI) [Ratio] 38.9 kg/m2 [facility] 12-30-2023 09:55-0500 Body weight 109.31 kg [facility] 12-30-2023 09:55-0500 Diastolic blood pressure 76 mm[Hg] [facility] 12-30-2023 09:55-0500 Heart rate 69 /min [facility] 12-30-2023 09:55-0500 Systolic blood pressure 120 mm[Hg] [facility] 12-09-2023 10:32-0500 Diastolic blood pressure 80 mm[Hg] Iban Lu MD Work Phone: [facility] 12-09-2023 10:32-0500 Systolic blood pressure 130 mm[Hg] Iban Lu MD Work Phone: [facility] 12-09-2023 09:46-0500 Body height 167.6 cm Iban Lu MD Work Phone: [facility] 12-09-2023 09:46-0500 Body mass index (BMI) [Ratio] 39.06 kg/m2 Iban Lu MD Work Phone: [facility] 12-09-2023 09:46-0500 Body weight 109.77 kg Iban Lu MD Work Phone: [facility] 12-09-2023 09:46-0500 Heart rate 68 /min Iban Lu MD Work Phone: [facility] 08-20-2023 09:00-0400 Body height 167.64 cm Toby Quintana Other [employer] Other 08-20-2023 09:00-0400 Body mass index (BMI) [Ratio] 38.38 kg/m2 Toby Quintana Other [employer] Other 08-20-2023 09:00-0400 Body weight 107.87 kg Toby Quintana Other [employer] Other 08-20-2023 09:00-0400 Diastolic blood pressure 75 mm[Hg] Toby Quintana Other [employer] Other 08-20-2023 09:00-0400 Systolic blood pressure 108 mm[Hg] Toby Quintana Other [employer] Other 04-24-2023 11:15-0400 Body height 167.64 cm Toby Quintana Other [employer] Other 04-24-2023 11:15-0400 Body mass index (BMI) [Ratio] 38.73 kg/m2 Toby Quintana Other [employer] Other 04-24-2023 11:15-0400 Body weight 108.86 kg Toby Quintana Other [employer] Other 04-24-2023 11:15-0400 Diastolic blood pressure 79 mm[Hg] Toby Quintana Other [employer] Other 04-24-2023 11:15-0400 Systolic blood pressure 114 mm[Hg] Toby Quintana Other [employer] Other 02-07-2023 09:30-0400 Body height 167.64 cm Toby Quintana Other [employer] Other 02-07-2023 09:30-0400 Body mass index (BMI) [Ratio] 39.99 kg/m2 Toby Quintana Other [employer] Other 02-07-2023 09:30-0400 Body weight 112.4 kg Toby Quintana Other [employer] Other 02-07-2023 09:30-0400 Diastolic blood pressure 68 mm[Hg] Toby Quintana Other Leroy Coderwall Other 02-07-2023 09:30-0400 Respiratory rate 18 /min Toby Quintana Other [employer] Other 02-07-2023 09:30-0400 SaO2% (BldA) [Mass fraction] 93 % Toby Quintana Other [employer] Other 02-07-2023 09:30-0400 Systolic blood pressure 142 mm[Hg] Toby Quintana Other [employer] Other 01-08-2023 10:00-0500 Body height 167.64 cm Samuel Montville II Other [employer] Other 01-08-2023 10:00-0500 Body mass index (BMI) [Ratio] 40.19 kg/m2 Samuel Montville II Other [employer] Other 01-08-2023 10:00-0500 Body weight 112.95 kg Samuel Montville II Other [employer] Other 12-09-2022 13:25-0500 Body height 167.64 cm Toby Quintana Work Phone: [facility] [address] DO Work Phone: 12-09-2022 13:25-0500 Body mass index (BMI) [Ratio] 40.03 kg/m2 Toby Quintana Work Phone: [facility] 250 DO Work Phone: 12-09-2022 13:25-0500 Body surface area Derived from formula 2.19 m2 Toby Quintana Work Phone: [facility] 250 DO Work Phone: 12-09-2022 13:25-0500 Body weight 112.49 kg Toby Quintana Work Phone: [facility] 250 DO Work Phone: 12-09-2022 13:25-0500 Diastolic blood pressure 80 mm[Hg] Toby Quintana Work Phone: [facility] 250 DO Work Phone: 12-09-2022 13:25-0500 Heart rate 78 /min Toby Quintana Work Phone: [facility] 250 DO Work Phone: 12-09-2022 13:25-0500 Systolic blood pressure 118 mm[Hg] Toby Quintana Work Phone: [facility] 250 DO Work Phone: 11-22-2022 09:00-0500 Body height 167.64 cm Leeann Blades Other [facility] Other 11-22-2022 09:00-0500 Body mass index (BMI) [Ratio] 39.54 kg/m2 Leeann Blades Other [facility] Other 11-22-2022 09:00-0500 Body weight 111.13 kg Leeann Blades Other [facility] Other 09-04-2021 13:27-0400 Body height 170.18 cm Toby Quintana Work Phone: [facility] 250 DO Work Phone: 09-04-2021 13:27-0400 Body mass index (BMI) [Ratio] 39.78 kg/m2 Toby Quintana Work Phone: [facility] 250 DO Work Phone: 09-04-2021 13:27-0400 Body surface area Derived from formula 2.24 m2 Toby Quintana Work Phone: [facility] 250 DO Work Phone: 09-04-2021 13:27-0400 Body weight 115.21 kg Toby Quintana Work Phone: [facility] 250 DO Work Phone: 09-04-2021 13:27-0400 Diastolic blood pressure 78 mm[Hg] Toby Quintana Work Phone: [facility] 250 DO Work Phone: 09-04-2021 13:27-0400 Heart rate 80 /min Toby Quintana Work Phone: [facility] 250 DO Work Phone: 09-04-2021 13:27-0400 Systolic blood pressure 104 mm[Hg] Toby Quintana Work Phone: [facility] 250 DO Work Phone: Encounters Encounter Date Encounter Type Care Provider Facility Start: 08-12-2024 End: 08-12-[address] [facility] Work Phone: Start: 08-12-2024 End: 08-12-2024 Patient encounter procedure [facility] Work Phone: Start: 04-30-2024 End: 04-30-[address] [facility] Work Phone: Start: 04-30-2024 End: 04-30-2024 Patient encounter procedure [facility] Work Phone: Start: 03-22-2024 End: 03-22-[address] [facility] Work Phone: Start: 03-22-2024 End: 03-22-2024 Patient encounter procedure [facility] Work Phone: Start: 02-10-2024 End: 02-10-[address] [facility] Work Phone: Start: 02-10-2024 End: 02-10-2024 Patient encounter procedure [facility] Work Phone: Start: 01-19-2024 End: 01-19-2024 Patient encounter procedure [facility] Work Phone: Start: 01-14-2024 Non-patient / Non-visit [facility] [place] [facility] Work Phone: Start: 01-05-2024 Non-patient / Non-visit [facility] [place] [facility] Work Phone: Start: 12-30-2023 Patient encounter procedure [facility] Start: 12-30-2023 End: 12-30-[address] [facility] Work Phone: Start: 12-30-2023 End: 12-30-2023 Patient encounter procedure [facility] Work Phone: Start: 12-19-2023 End: 12-19-2023 ambulatory Toby Quintana Other [facility] Other Start: 12-19-2023 Telephone encounter Toby Quintana [facility] Start: 12-17-2023 End: 12-17-2023 ambulatory Toby Quintana Other [facility] Other Start: 12-17-2023 Telephone encounter Toby Quintana [facility] Start: 12-16-2023 (Televisit) Televisit Toby Quintana Kehinde [facility] Start: 12-16-2023 End: 12-16-2023 ambulatory Toby Quintana Other [facility] Other Start: 12-09-2023 End: 12-09-2023 Office outpatient visit 25 minutes Iban Lu MD Work Phone: [facility] Comment on above: Supraventricular tac hycardia by ECG (Primary Dx); Mixed hyperlipidemia; Palpitations; Class II obesity Start: 12-09-2023 End: 12-09-2023 ambulatory IBAN [facility] Start: 12-08-2023 End: 12-08-2023 ambulatory Toby Quintana Other [facility] Other Start: 12-08-2023 Telephone encounter Toby Qunitana [facility] Start: 11-04-2023 End: 11-04-2023 ambulatory Toby Pat Other [facility] Other Start: 11-04-2023 Telephone encounter Toby Pat [facility] Start: 10-21-2023 (Televisit) Televisit Toby Quintana Kehinde [facility] Start: 10-21-2023 End: 10-21-2023 ambulatory Toby Quintana Other [facility] Other Start: 10-21-2023 End: 10-21-2023 Patient encounter procedure [facility] Work Phone: Start: 10-20-2023 End: 10-20-2023 ambulatory Toby Quintana Other [facility] Other Start: 10-20-2023 Telephone encounter Toby Pat [facility] Start: 09-25-2023 (Televisit) Televisit Toby Quintana Kehinde [facility] Start: 09-25-2023 End: 09-25-2023 ambulatory Toby Quintana Other [facility] Other Start: 09-22-2023 (Televisit) Televisit Toby Quintana Kehinde [facility] Start: 09-22-2023 End: 09-22-2023 ambulatory Toby Quintana Other [facility] Other Start: 09-22-2023 Telephone encounter Toby Quintana [facility] Start: 08-20-2023 End: 08-20-2023 ambulatory Toby Quintana Other [facility] Other Start: 08-20-2023 Patient encounter procedure Toby Quintana [facility] Start: 05-22-2023 Telephone encounter Toby eugene Work Phone: [facility] 600 DO Work Phone: Start: 05-12-2023 End: 05-12-2023 ambulatory Toby Quintana Other [facility] Other Start: 05-12-2023 Telephone encounter Toby Quintana [facility] Start: 04-24-2023 End: 04-24-2023 ambulatory Toby Quintana Other [facility] Other Start: 04-24-2023 Office outpatient vi sit 15 minutes Toby Quintana [facility] Start: 04-11-2023 End: 04-11-2023 ambulatory Toby Quintana Other [facility] Other Start: 04-11-2023 Telephone encounter Toby Quintana [facility] Start: 03-13-2023 End: 03-13-[address] EVIN BYERS Facility:UNKNOWN Start: 03-13-[address] Toby Quintana Facility:[id number] Start: 02-07-2023 End: 02-07-2023 ambulatory Toby Quintana Other [facility] Other Start: 02-07-2023 Patient encounter procedure Toby Quintana [facility] Start: 02-03-2023 End: 02-03-2023 ambulatory Leeann Blades Other [facility] Other Start: 02-03-2023 Telephone encounter Leeann Blades [facility] Start: 01-27-2023 End: 01-27-2023 ambulatory Leeann Blades Other [facility] Other Start: 01-27-2023 Telephone encounter Leeann Blades [facility] Start: 01-21-[address] TOBY QUINTANA [facility] ity:H1 Start: 01-16-2023 End: 01-16-2023 ambulatory Samuel Guajardoisle II Other [facility] Other Start: 01-16-2023 Telephone encounter Samuel Chatman II [facility] Start: 01-08-2023 FQHC visit new patient Samuel Goodman nayeli II [facility] Start: 01-08-2023 End: 01-08-2023 ambulatory Samuel Chatman II Facility:[facility] Start: 01-08-2023 End: 01-08-2023 ambulatory MD Toby Quintana Work Phone: [facility] Work Phone: Start: 01-08-2023 End: 01-08-2023 Patient encounter procedure MD Toby Quintana Work Phone: [facility] Start: 01-02-2023 End: 01-02-2023 ambulatory Toby Quintana Other [facility] Other Start: 01-02-2023 Telephone encounter Leeann Blades [facility] Start: 12-30-2022 End: 12-30-2022 ambulatory Leeann Blades Other [facility] Other Start: 12-30-2022 Telephone encounter Leeann Blades [facility] Start: 12-26-2022 End: 12-26-2022 ambulatory Leeann Blades Other [facility] Other Start: 12-26-2022 Telephone encounter Leeann Blades [facility] Start: 12-19-2022 End: 12-19-2022 ambulatory Leeann Blades Other [facility] Other Start: 12-19-2022 Telephone encounter Leeann Blades [facility] Start: 12-17-2022 End: 12-17-2022 ambulatory Toby Quintana Other [facility] Other Start: 12-17-2022 Telephone encounter Toby Quintana [facility] Start: 12-10-2022 End: 12-10-2022 ambulatory Toby Quintana Other [facility] Other Start: 12-10-2022 Telephone encounter Toby Quintana [facility] Start: 12-09-2022 Office outpatient vi sit 25 minutes Toby Quintana Work Phone: [facility] 250 DO Work Phone: Start: 12-09-[address] Iban Lu Facility: Start: 11-25-2022 End: 11-25-2022 ambulatory Leeann Blades Other [facility] Other Start: 11-25-2022 Telephone encounter Leeann Blades [facility] Start: 11-22-2022 Office outpatient ne w 45 minutes Leeann Blades [facility] Start: 11-22-2022 End: 11-22-2022 ambulatory Leeann Blades Facility:[facility] Start: 11-22-2022 End: 11-22-2022 ambulatory MD Toby Quintana Work Phone: [facility] Work Phone: Start: 11-22-2022 End: 11-22-2022 Patient encounter procedure MD Toby Quintana Work Phone: [facility] Work Phone: Start: 11-05-2022 Adult health examination Nannette Quintana Other [facility] Other Start: 11-05-2022 Pre-procedure evalua tion check Toby Quintana Other [facility] Other Start: 10-04-2022 End: 10-05-[address] SHALA OMER Facility:H1 Start: 09-16-2022 Rx Renewal Toby Quintana Work Phone: [facility] 250 DO Work Phone: Start: 07-24-2022 End: 07-24-[address] TOBY QUINTANA Facility:H1 Start: 07-22-2022 End: 07-22-[address] LAUREL BRAVO Facility:H1 Start: 04-18-2022 Encounter for genera l adult medical examination without abnormal findings DR TOBY QUINTANA [facility] Start: 04-13-2022 End: 04-14-[address] TOBY QUINTANA Facility:H1 Start: 04-12-2022 End: 04-13-[address] TOBY QUINTANA Facility:H1 Start: 04-12-2022 End: 04-13-2022 Encounter for general adult medical examination without abnormal findings DR TOBY QUINTANA Facility:H1 Start: 09-04-2021 FUV, Provider: Iban Lu, Status: Pen, Time: 2:00 PM Toby Quintana Work Phone: [facility] [facility] [place] Work Phone: Start: 09-04-2021 Office outpatient vi sit 25 minutes Toby Quintana Work Phone: [facility] 250 DO Work Phone: Start: 08-30-2021 Rx Renewal Toby Quintana Work Phone: [facility] [place] Work Phone: Procedures Date [...] procedure 12/09/2024 9:00 AM EST Office Visit [facility] [address] [address] Iban Lu MD [address] [facility] [address], [address] [address] [facility] Start: 04-30-2024 Patient referral [facility] Work Phone: Start: 03-22-2024 Patient referral [facility] Work Phone: Start: 01-19-2024 Patient referral [facility] Work Phone: Start: 12-09-2023 End: 12-09-2024 Basic metabolic 2000 panel - Serum or Plasma Basic Metabolic Panel Lab Routine Supraventricular tachycardia by ECG Palpitations Expected: 12/09/2023 (Approximate), Expires: 12/09/2024 [facility] Service Area Work Phone: Comment on above: Expected: 12/09/2023 (Approximate), Expires: 12/09/2024 Start: 12-09-2023 FUV, Provider: Iban Lu, Status: Pen, Time: 10:00 AM FUV, Provider: Iban Lu, Status: Pen, Time: 10:00 AM [facility] Work Phone: Start: 07-11-2023 COVID-19 Vaccine ( season) COVID-19 Vaccine ( season) [facility] Start: 07-11-2023 Influenza vaccination Influenza Vacc ine (#1) [facility] Start: 09-20-2022 FUV, Provider: Iban Lu, Status: Pen, Time: 2:20 PM FUV, Provider: Iban Lu, Status: Pen, Time: 2:20 PM [facility] [place] 250 DO Work Phone: Start: 09-05-2022 FUV, Provider: Iban Lu, Status: Pen, Time: 11:20 AM FUV, Provider: Iban Lu, Status: Pen, Time: 11:20 AM [facility] DO Work Phone: Start: 01-19-2006 Zoster Vaccines (1 o f 2) Zoster Vaccines (1 of 2) [facility] Start: 1996 Screening for malign ant neoplasm of breast Mammogram [facility] Start: 01-19-1978 DTaP/Tdap/Td Vaccine s (1 - Tdap) DTaP/Tdap/Td Vaccines (1 - Tdap) [facility] Start: 01-19-1974 [facility] Start: 01-19-1962 Pneumococcal Vaccine : 65+ Years (1 - PCV) Pneumococcal Vaccine: 65+ Years (1 - PCV) [facility] Start: [address] Lip[address] Lipid Panel [facility] Start: 1956 Medicare Annual Wellness Visit Medicare Annual Wellness Visit (AWV) [facility] Start: 1956 Screening for malign ant neoplasm of colon [facility] Start: 1956 Screening for osteoporosis Bone Density Scan [facility] Comprehensive metabo lic 2000 panel - Serum or Plasma [facility] Patient referral [facility] Work Phone: [place] Lower extremity v ein - bilateral [facility] Immunizations Immunization Date Immunization Notes Care Provider Fa cility 09-06-2022 Pfizer COVID-19 Vac Bivalent 30 MCG/0.3ML Intramuscular Suspension Toby Quintana Work Phone: [facility] 250 DO Work Phone: 07-02-2021 Pfizer-BioNTech COVI D-19 Vacc 30 MCG/0.3ML Intramuscular Suspension Toby Quintana Work Phone: [facility] Comment on above: Series: 06-11-2021 Pfizer-BioNTech COVI D-19 Vacc 30 MCG/0.3ML Intramuscular Suspension Toby Quintana Work Phone: [facility] Comment on above: Series: 09-12-2014 tetanus and diphther ia toxoids, adsorbed, preservative free, for adult use (5 Lf of tetanus toxoid and 2 Lf of diphtheria toxoid) Toby Quintana Other [facility] 09-15-2013 tetanus and diphther ia toxoids, adsorbed, preservative free, for adult use (5 Lf of tetanus toxoid and 2 Lf of diphtheria toxoid) Toby Quintana Other [facility] 09-14-2013 influenza, seasonal, injectable Toby Quintana Work Phone: [facility] 09-14-2013 influenza virus vacc ine, unspecified formulation Iban Lu MD Work Phone: [facility] Work Phone: 08-10-2013 influenza virus vacc ine, unspecified formulation Toby Quintana Work Phone: [facility] 250 DO Work Phone: 07-19-2012 influenza virus vacc ine, unspecified formulation Toby Schofield Quintana Work Phone: [facility] 250 DO Work Phone: 11-10-2009 influenza virus vacc ine, unspecified formulation Toby Schofield Quintana Work Phone: [facility] 250 DO Work Phone: 08-10-2009 influenza virus vacc ine, unspecified formulation Toby Schofield Quintana Work Phone: [facility] 250 DO Work Phone: 07-14-2007 pneumococcal polysaccharide vaccine, 23 valent Toby Quintana Other [facility] Payers Date Payer Category Payer Medicare [employer] MEDICARE A ETNA MEDICARE VALUE PLAN [id number] 2023-Present [address] [place] [address] [id number] 2023 Medicare [id number] 2022 Self-pay [id number] 1959 Unknown [id number] 1959 Unknown [id number] 2.16.8 [id number] 1956 Unknown [id number] 1956 Unknown [id number] 1956 Unknown [id number] 1956 Unknown [id number] 1956 Unknown [id number] 1956 Unknown [id number] [id number] 1956 Unknown [id number] 1956 Unknown [id number] 1956 Unknown [id number] 1956 Unknown [id number] Unknown Unknown HCAP/HFA/FAP Active [id number] Unknown [id number] Unknown [id number] Social History Date Type Detail Facility Start: 12-09-2023 No illicit drug use No illicit drug use [address] Work Phone: Comment on above: Coffee 1 cup daily; quit 1987; Start: 1955 Sex Assigned At Female F [facility] Start: 12-09-2023 Sex Assigned At N [facility] [employer] Other Start: 12-09-2023 Tobacco smoking status NHIS Ex-smoker [facility] Work Phone: History of tobacco use Current smoker [facility] Work Phone: History of tobacco use Cigarette Smoker [facility] Work Phone: Start: 12-09-2023 Tobacco use and exposure Smokeless tobacco non-user [facility] Work Phone: Start: 12-09-2023 Alcohol intake Lifetime non-d mary (finding) [facility] Work Phone: Start: 1955 [facility]: Start: 11-29-2023 End: 12-09-2023 Exposure to SARS-CoV-2 (event) Not sure [facility] Clinical Notes 11-22-2022 to 03-22-2024 Note Date & Type Note Facility 03-22-2024 Hospital Discharg e instructions Ambulatory OrdersReferral to Orthopedics Time Frame: 03/22/24, Location: None [facility] Work Phone: 12-17-2023 Evaluation note Encounter Date Diagnosis Assessment Notes Dec, Jaw swelling (ICD-10 - R22.0) [facility] Other 02-06-2024 Evaluation note* Encounter Date Diagnosis Assessment Notes Treatment Notes Treatment Clinical Notes Dec, Dental infection (ICD-10 - K04.7) Pt will contact her insurance, find a different dentist. Will continue antibiotic at this time. [facility] Other 01-30-2024 History of Present illness Narrative* [...] will be scheduled Iban Lu MD, [facility] Review of Systems Cardiovascular: Positive for [...] EVENING, Disp: 225 tablet, Rfl: 0 omega 2-kmv-lke-fish oil 360 mg-108 mg- 180 mg-1,200 mg [...] of Iban Lu [facility]. [facility] Work Phone: [phone] 112-497101-30-2024 Instructions* Patient Instructions* Nataliya Manning LPN - [...] Follow up one year [facility] Work Phone: [phone] Evaluation note* Encounter Date Diagnosis Assessment Notes Treatment Notes Treatment Clinical Notes Oct, Open fracture of tooth, initial encounter (ICD-10 - S02.5XXB) Keep area clean, brush and rinse frequently. seeing dentist next week. Oct, Lumbar radiculitis (ICD-10 - M54.16) pt requests refill for her chronic back issues. We discussed her treatment plan w Dr. Byers. [facility] Other 11-16-2023 Evaluation note* Encounter Date Diagnosis Assessment Notes Treatment Notes Treatment Clinical Notes Sep, Lumbar radiculitis (ICD-10 - M54.16) CHanged pain med. Jax will call Dr. Byers's office for a change in treatment plan and an appt. Sep, Nausea & vomiting (ICD-10 - R11.2) States that zofran has not helped in the past - phenergan sent in for short term use. [facility] Other 11-13-2023 Evaluation note* Encounter Date Diagnosis Assessment Notes Treatment Notes Treatment Clinical Notes Sep, Radiculopathy, lumbar region (ICD-10 - M54.16) My staff reviewed her case with Dr. Byers's staff. She is to call their office for follow-up appointment next month. Patient does not want another injection and would rather have an ablation. Trial of tramadol sent to pharmacy. OARRS reviewed. [facility] Other 10-11-2023 Evaluation note* Encounter Date Diagnosis Assessment Notes Treatment Notes Treatment Clinical Notes Aug, Pain in right knee (ICD-10 - M25.561) Aug, Other chronic pain (ICD-10 - G89.29) Aug, Pain in left knee (ICD-10 - M25.562) [facility] Other 03-31-2023 Evaluation note* Encounter Date Diagnosis Assessment Notes Treatment Notes Treatment Clinical Notes Jan, Nausea & vomiting (ICD-10 - R11.2) Jan, Pain in right knee (ICD-10 - M25.561) Jan, Other chronic pain (ICD-10 - G89.29) Jan, Pain in left knee (ICD-10 - M25.562) [facility] Other 03-31-2023 Evaluation note* Encounter Date Diagnosis Assessment Notes Treatment Notes Treatment Clinical Notes Jan, Nausea & vomiting (ICD-10 - R11.2) chronic problem - requesting refill on Zofran Jan, Pain in right knee (ICD-10 - M25.561) Jan, Other chronic pain (ICD-10 - G89.29) Jan, Pain in left knee (ICD-10 - M25.562) [facility] Other 03-01-2023 Evaluation note* Encounter Date Diagnosis [...] She would prefer to stay close to [place]. Our office is working to get her referral to pain management near [place]. [facility] Other 01-31-2023 Evaluation note* Encounter Date Diagnosis Assessment Notes Treatment Notes Treatment Clinical Notes Nov, Lumbar pain (ICD-10 - M54.50) [facility] Other 01-13-2023 Evaluation note* Encounter Date Diagnosis Assessment Notes Treatment Notes Treatment Clinical Notes Nov, Low back pain, unspecified back pain laterality, unspecified chronicity, unspecified whether sciatica present (ICD-10 - M54.50) [facility] Other evalkfwtvj noteNo assessment information available [facility] Work Phone: Evaluation noteNo InformationNort [place] Other evaluation noteNoCorimmun Other Evaluation note* Diagnosis Supraventricular tachycardia by ECG- Primary Mixed hyperlipidemia Palpitations Class II obesity documented in this encounter [facility] Work Phone: Evaluation note* Diagnosis Onset Date Resolution Status Fatigue acute Hyperlipidemia acute Lumbar radiculopathy, chronic acute Medicare annual wellness visit, subsequent acute SVT (supraventricular tachycardia) acute [facility] Work Phone: Evaluation note* Diagnosis Onset Date Resolution Status Fatigue acute Hyperlipidemia acute Lumbar radiculopathy, chronic acute Medicare annual wellness visit, subsequent acute SVT (supraventricular tachycardia) acute Lumbar radiculopathy, chronic acute [facility] Work Phone: Evaluation note* Diagnosis Onset Date Resolution Status Fatigue acute Hyperlipidemia acute Lumbar radiculopathy, chronic acute Medicare annual wellness visit, subsequent acute SVT (supraventricular tachycardia) acute Lumbar radiculopathy, chronic acute Left knee pain acute Lumbar radiculopathy, chronic acute Right knee pain acute Left knee pain acute Right knee pain acute [facility] Work Phone: Evaluation note* Diagnosis Onset Date Resolution Status Left knee pain acute Lumbar radiculopathy, chronic acute Right knee pain acute Bilateral cold feet acute Left knee pain acute Right knee pain acute Bilateral lower extremity pain acute Diminished pulses in lower extremity acute PAD (peripheral artery disease) acute [facility] Work Phone: History general Narrative - [...] Hospitalization History hysterectomy Hospitalization History pancreatitis [facility] Other History general N[facility]ative - [facility] Other Hospital Discharge instructionsAmbulatory Orders* Referral to Vascular Surgery Time Frame: 04/30/24, Location: None Selected [facility] Work Phone: Reason for referral (narrative)* Consultation (Routine) - Authorized Specialty Diagnoses / Procedures Referred By Contac t Referred To Contact Cardiology Diagnoses Supraventricular tachycardia by ECG Procedures Follow Up In Cardiology Iban Lu MD [address] [facility] 2, [address] [address] Iban Lu MD [address] [facility] 2, [facility] [address] [place] [address] Referral ID Status Reason Start Date Expiration Date V isits Requested Visits Authorized [id number] Authorized 12/09/2023 12/08/[address] 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 * ASSESSMENT AND PLAN: * [...] be scheduled * Iban Lu MD, [facility] Chief Complaint and Reason for Visit Chief Complaint xray Chief Complaint Swollen Face, [place]- [phone] Medicare Wellness Reason for Visit Fatigue Hyperlipidemia Lumbar radiculopathy, chronic Medicare annual wellness visit, subsequent SVT (supraventricular tachycardia) Chief Complaint Medicare Wellness Amb Documentation pulled [phone] knee injections Reason for Visit Fatigue Hyperlipidemia Lumbar radiculopathy, chronic Medicare annual wellness visit, subsequent SVT (supraventricular tachycardia) Lumbar radiculopathy, chronic Chief Complaint Medicare Wellness Amb Documentation pulled [id number] knee injections leg swelling - hot cold [...] unspe cified (M54.50) Referral Organization [facility] Referring Provider First Name Leeann Referring Provider Last Name Blades Referring Provider Specialty Neurologica l Surgery Referred Organization [facility] Referred Provider Albertina Oconnell Referred Address [address] [place], [place],[address] Referred Provider Specialty Pain Medicin e Referral Priority Routine Referral Appointment Date 2023-01-21 General Notes Klaudia Golden 023 09:03:40 AM >Received today and waiting for office notes to be locked before [facility] 07:37:06 AM >[facility]23 09:26:41 AM >Referral was refax to the correct office with their form Trini Suazo 01/08/2023 02:11:33 PM >received letter, pt has appt scheduled for 01/21/2023 Clinical Notes Phone: Reason 01/08/23 @ 10:00am Evaluate and Treat Hip Pain Diagnosis 1 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 Referring Provider Last Name Blades Referring Provider Specialty Neurologica l Surgery Referred Organization [facility] Referred Provider Samuel Chatman II Referred Address [address] [place] [place],[address] Referred Provider Specialty Orthopaedic Surgery Referral Priority Routine Referral Appointment Date 2023-01-08 General Notes Klaudia Golden 023 10:20:34 AM >Received today and sent P2P [facility]23 12:05:35 PM >[facility]15[facility]23 09:30:10 AM >Office notes not locked yet [facility]/16/2023 08:43:03 AM >Sent telephone encounter to referring physician to let them know that the consult letter is ready for their review Reason DECLINED lumbar an d knee pain Diagnosis 1 Lumbar pain (M54.50) Referral Organization [facility] Som chang Referring Provider First Name Toby Referring Provider Last Name Pat Referring Provider Specialty Family Medi cine Referred Organization [facility] Referred Provider Paddy De Los Santos Referred Address [address] [facility] Kathleened Michael,[place],[address] Referred Provider Specialty Rheumatology Referral Priority Routine [...] section and content) DATE CREATED AUTHOR 09/23/2019 [facility] DATE CREATED AUTHOR AUTHOR'S ORGANIZ ATION 11/04/2019 [facility] DATE CREATED AUTHOR AUTHOR'S ORGANIZ ATION 05/31/2020 [facility] DATE CREATED AUTHOR AUTHOR'S ORGANIZ ATION 12/06/2020 [facility] DATE CREATED AUTHOR AUTHOR'S ORGANIZ ATION 04/21/2021 [facility] DATE CREATED AUTHOR AUTHOR'S ORGANIZ ATION 12/10/2022 [employer] DATE CREATED AUTHOR AUTHOR'S ORGANIZ ATION 01/10/2023 [facility] DATE CREATED AUTHOR AUTHOR'S ORGANIZ ATION 01/17/2023 [facility] DATE CREATED AUTHOR AUTHOR'S ORGANIZ ATION 03/18/2023 [facility] DATE CREATED AUTHOR AUTHOR'S ORGANIZ ATION 06/09/2023 [facility] DATE CREATED AUTHOR AUTHOR'S ORGANIZ ATION 10/10/2024 [facility] [employer] (unrecognized sec tion and content) Team Status: Inactive Member Role Status Dates Toby Quintana MD Primary Care Provider Active Leeann Quintana Attending Provider Active Team Status: Active Member Role Status Dates Toby Quintana MD Primary Care Provider Active Team Status: Inactive Member Role Status Dates Toby Quintana MD Primary Care Provider Active Samuel Chatman II, MD Attending Provider Active [employer] S[employer] Relationship Specialty Start Date End Date Toby [...] Team Status: Inactive Member Role Status Dates oTby Quintana MD [...] BE BASED ON THE PRIMARY CLINICAL RECORDS. [employer] [facility]. provides no warranty or guarantee of the accuracy or completeness of information in this document.
== END 2024-11-19 11:42 | disposition home or self-care (01) ==
LOC: WC 11:59
PROVIDERS: PCP Family Medicine; Visit Provider Podiatrist Foot & Ankle Surgery
DX: L97.922 Non-pressure chronic ulcer of unspecified part of left lower leg with fat layer exposed (principal)
CPT/HCPCS: G0463

== ENCOUNTER 2024-12-07 15:47 | Outpatient (OUT) | payer MEDICARE, SELFPAY | END 2024-12-07 15:48 | disposition home or self-care (01) | LOC: WC 15:47 | PROVIDERS: PCP Family Medicine; Visit Provider Physician Assistant | DX: L97.922 Non-pressure chronic ulcer of unspecified part of left lower leg with fat layer exposed (principal) | CPT/HCPCS: 11042 ==

== ENCOUNTER 2024-12-21 15:47 | Outpatient (OUT) | payer MEDICARE, SELFPAY | END 2024-12-21 15:48 | disposition home or self-care (01) | LOC: WC 15:48 | PROVIDERS: PCP Family Medicine; Visit Provider Physician Assistant | DX: L97.922 Non-pressure chronic ulcer of unspecified part of left lower leg with fat layer exposed (principal) | CPT/HCPCS: G0463 ==

== ENCOUNTER 2025-01-05 08:46 | Outpatient (OUT) | payer MEDICARE, SELFPAY ==
--- NOTE | 2025-01-05 08:51 | US_ITS ---
The [address] [address] Patient Name: INDERJIT MANN MRN: [id number] date: 1955 Sex: F Assigned Patient Location: US Current Patient Location: US Accession/Order Number: [id number] Exam Date: 01/05/2025 11:00 Report Date: 01/05/2025 11:02 At the request of: SHANTA ANGUIANO Procedure: US renal BI BILATERAL RENAL AND BLADDER ULTRASOUND CLINICAL HISTORY: Recurrent Urinary Tract Infection COMPARISON: None Estimation of renal size is approximately 10.7 cm on the right and 12.1 cm on the left. No shadowing calculi or hydronephrosis are identified. No renal mass lesions were imaged. There is no perinephric fluid. Liver echotexture in the field of view appears mildly heterogeneous. The urinary bladder is poorly distended with a volume of 24 mL . This limits evaluation. US/US renal BI IMPRESSION: NO OBSTRUCTIVE UROPATHY. Impression dictated by: Shiloh Hernández M.D.01/05/2025 11:02 AM Dictation Location: [place] [address] Electronically authenticated by: [id number] Y Date: 01/05/2025 11:02
--- OUTSIDE RECORDS SUMMARY | 2025-01-05 09:05 | XMS_ITS | CCD ---
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 Name Role Phone Toby Quintana Unavailable Unavailable Unavailable MD Toby Quintana Primary Care Provider Leeann Quintana Attending Provider [phone] Unavailable Unavailable BladeLeeann cody Unavailable DR SHALA OMER Consulting Unavailable QUINTANA, DR TOBY Schofield Admitting Unavailable QUINTANA, DR TOBY Schofield Attending Unavailable QUINTANA, DR TOBY Schofield Primary Care Unavailable QUINTANA, DR TOBY Schofield Consulting Unavailable QUINTANA, DR TOBY Schofield Admitting Unavailable QUINTANA, DR TOBY Schofield Attending Unavailable QUINTANA, DR TOBY Schofield Consulting Unavailable QUINTANA, DR TOBY Schofield Primary Care Unavailable QUINTANA, DR TOBY Schofield Admitting Unavailable RENO, DR CAITLYN Noe Consulting Unavailable QUINTANA, DR TOBY Schofield Attending Unavailable QUINTANA, DR TOBY Schofield Primary Care Unavailable QUINTANA, DR TOBY Schofield Consulting Unavailable LAWRENCE, DR LAUREL Banks Admitting Unavailabl e QUINTANA, DR TOBY Schofield Primary Care Unavailable REINECK, DR LAUREL Banks Attending Unavailabl e REINECK, DR LAUREL Banks Consulting Unavailabl e QUINTANA, DR TOBY Schofield Primary Care Unavailable BLADELEEANN Cody Referring Unavailable LAKSHMIPATHY ., NARENDRANATH Admitting Nanda vailable LAKSHMIPATHY ., LASHONDA Attending Nanda vailable MARIANO, DR TOBY Schofield Admitting Unavailable QUINTANA, DR TOBY Schofield Primary Care Unavailable QUINTANA, DR TOBY Schofield Attending Unavailable QUINTANA, DR TOBY Schofield Consulting Unavailable Toby Quintana Unavailable MD Samuel Chatman II Attending Provider Samuel Chatman II Unavailable Dr. EVIN BYERS Attending Unavailable Toby Quintana Primary Care Unavaila ble Mariano, Dr. Toby Feliz Primary Care Unav ailable Lu, Dr. Iban Penn Referring Nanda heide Quintana, Dr. Toby Feliz Primary Care Unav ailable Lu, Dr. Iban Penn Attending Nanda Toby Ron MD Primary Care Provider [phone] IBAN LU Attending Unavailable TOBY QUINTANA Primary Care Unavailable Toby Quintana MD Attending Provider [phone] NO FAMILY, PHYSICIAN Primary Care Provider Unava ilable Toby Quintana Admitting Unavailable Toby Quintana Attending Unavailable NO FAMILY, PHYSICIAN Primary Care Unavailable Toby Quintana Attending Unavailable NON STAFF Primary Care Unavailable Toby Quintana Admitting Unavailable TOBY QUINTANA Primary Care Physician [phone] Unavailable Primary Care Provider Unavailabl e PHOEBE, SHANTA E Admitting Unavailable PHOEBE, SHANTA E Attending Unavailable TOBY QUINTANA Referring Unavailable PHOEBE SHANTA Kanwal Attending Unavailable PHOEBE SHANTA E Attending Unavailable PHOEBE SHANTA E Attending Unavailable PHOEBE SHANTA E Admitting Unavailable PHOEBE SHANTA E Attending Unavailable Allergies Allergy Classification Reported Allergen(s) Allergy Type Date of Onset Reaction(s) Facility (6 sources) Sulfamethoxazole; Translations: [sulfa] Drug Allergy Rash, Swelling [address] Work Phone: (18 sources) Sulfonamides (Antibiotic); Translations: [SULFA (SULFONAMIDE ANTIBIOTICS)] Allergy to substance 07-23-20 17 Hives, Rash, Swelling [facility] Comment on above: Onset Date: 07/28/20 13 (20 sources) Sulfacetamide / Sulfur Drug Allergy rash [facility] Other (1 source) Morphine Drug Allergy [facility] (1 source) Quinolones (Antibiotic) Drug allergy (disorder) [facility] (2 sources) Sulfonamides (Antibiotic) Drug allergy (disorder) 08-06-20 13 [facility] (12 sources) Acetaminophen / oxyCODONE Drug Allergy 07-28-20 13 Unknown [facility] Other (12 sources) Meperidine Drug Allergy 07-28-20 13 Unknown [facility] Other (13 sources) Quinolones Drug allergy 07-28-20 13 Comment:Fluorq uinolones [facility] Other (13 sources) sulfADIAZINE Drug Allergy Unknown [facility] Other (13 sources) Substance with sulfonamide structure and antibacterial mechanism of action (substance) Drug allergy 07-28-20 13 Unknown H.[facility] Other (13 sources) Statins Depletion *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 Propensity to adverse reactions 07-28-20 13 Unknown [facility] Other (4 sources) Allergies Reconciled Propensity to adverse reactions Unknown H.[facility]OM Other (4 sources) patient allergy list reviewed by nurse or physicia Propensity to adverse reactions 07-15-20 Comment:Done H.BLOOM Other (1 source) Acetaminophen / oxyCODONE Drug Allergy 07-28-20 13 Unknown [facility] Other (1 source) Meperidine Drug Allergy 07-28-20 13 Unknown [facility] Other (11 sources) Sulfacetamide; Translations: [sulfacetamide] Drug Allergy 12-30-19 24 [facility] (5 sources) Sulfonamide; Translations: [sulfa drugs] Drug allergy Eruption of skin (disorder) [facility] Medications Current Medications Medication Drug Class(es) Dates Sig (Normalized) Sig (Original) acetaminophen 325 mg / HYDROcodone bitartrate 5 mg oral tablet (20 sources) Opioid Agonist Start: 08-31-2021 End: 12-09-2023 take 1 tablet by mouth every four hours as needed HYDROcodone-acetami nophen ([place]) 5-325 mg tablet Take 1 tablet by [...] Days Active albuterol 0.83 mg/ml inhalation solution (7 sources) beta2-Adrenergic Agonist Start: 12-12-2024 take 2.5 mg by inhalation every four to six hours as needed for wheezing Albuterol Sulfate 2.5 mg /3 mL (0.083 %) solution for nebulization Active 2.5 MG INHALATION EVERY 4-6 HOURS as needed for shortness of breath or wheezing December 12, 2024 12:00am Albuterol Sulfat e (2.5 MG/3ML) 0.083% 3 mL as needed Inhalation every 6 hrs Active Albuterol Sulfate 90 mcg/actuation HFA aerosol inhaler (3 sources) Start: 12-07-2024 take 1 puff(s) by inhalation every four to six hours as needed for wheezing Albuterol Sulfate 90 mcg/actuation HFA aerosol inhaler Active 2 PUFF INHALATION EVERY 4-6 HOURS as needed for shortness of breath or wheezing 6.7 December 07, 2024 12:00am amoxicillin 500 mg oral capsule (13 sources) Penicillin-class Antibacterial Start: 10-21-2023 take 1 capsule by mouth every eight hours Amoxicillin 500 MG 1 capsule Orally every 8 hrs for 7 days Oct, Active Start: 04-14-2023 take 4 capsules by mouth once Amoxicillin 500 MG 4 caps Orally once for 1 days Apr, Active take 1 capsule by mo dch every eight hours Amoxicillin 500 MG 1 capsule Orally Three times a day for 7 days Active take 2 capsules by m outh every twelve hours Amoxicillin 500 MG 2 capsules Orally Twice a day for 2 days Active atenolol 25 mg oral tablet (20 sources) beta-Adrenergic Anahi Start: 10-12-2024 take 1 tablet by mouth in the morning, then take 2 tablets by mouth in the evening Atenolol 25 mg tablet Active 0 .ROUTE .COMPLEX October 12, 2024 4:30pm TAKE 1 TABLET BY MOUTH IN THE MORNING and 2 (TWO) tablets IN THE EVENING Start: 06-07-2024 End: 10-12-2024 take 1 tablet by mouth once daily in the morning Atenolol 25 mg tablet Discontinued 25 MG PO Three times daily 90 June 07, 2024 1:17pm October 12, 2024 4:30pm 1 po qam; 2 po qpm Start: 01-16-2024 End: 06-07-2024 take 2 tablets by mouth once daily at bedtime Atenolol 25 mg tablet Discontinued 50 MG PO Daily at bedtime 60 April 02, 2024 11:17am June 07, 2024 1:18pm Start: 01-16-2024 End: 06-07-2024 take 50 mg [...] MD Start : 30-Aug-2021 Active decreased Start: 04-24-2020 atenolol Oral, BID, Refills(s) 0 Start Date: 04/24/20 Status: Ordered Start: 04-08-2019 End: 01-16-2024 take 1 tablet by mouth once daily Atenolol 25 mg Tablet Discontinued 25 MG PO Daily April 07, 2019 11:00pm January 16, 2024 10:15am Start: 07-04-2017 End: 01-16-2024 take 1 tablet by mouth once daily in the evening Atenolol 50 mg Tablet Discontinued 50 MG PO Every evening April 07, 2019 11:00pm January 16, 2024 10:15am ciprofloxacin 500 mg oral tablet (4 sources) Quinolone Antimicrobial Start: 12-30-2024 End: 01-09-2025 take 1 tablet by mouth every twelve hours Cipro 500 mg Tab 500 mg = 1 tab(s), Oral, q12hr, X 10 day(s), # 20 tab(s), Refills(s) 0, Pharmacy: [facility]/pharmacy #[id number], 170, cm, 12/17/24 11:06:00 EST, Height/Length Dosing, 100, kg, 12/17/24 11:06:00 EST, Weight Dosing Start Date: 12/30/24 Stop Date: 3/2/25 Status: Ordered Start: 12-03-2024 take 1 tablet by valentin th twice daily Ciprofloxacin Hcl 250 mg tablet Active 250 MG PO Twice daily December 03, 2024 12:00am doxycycline hyclate 100 mg oral tablet (8 sources) Tetracycline-class Drug Start: 12-17-2024 take 100 mg by mouth twice daily doxycycline 100 mg, Oral, BID, Refills(s) 0 Start Date: 12/17/24 Status: Ordered Start: 10-12-2024 End: 10-14-2024 take 1 tablet by mouth twice daily Doxycycline Hyclate 100 mg tablet Discontinued 100 MG PO Twice daily October 12, 2024 12:00am October 14, 2024 4:54pm Fish Oil-Krill Oil - (2 sources) Fish Oil-Krill O il - as directed Orally Active fluticasone / salmeterol (8 sources) Corticosteroid, beta2-Adrenergic Agonist take 2 puff(s) by inhalation twice daily fluticasone-salmeter ol (ADVAIR) 500-50 mcg/dose DISKUS Inhale 2 puffs 2 (two) times a day. Active take 2 puff(s) by inhalation twi ce daily Advair HFA 230-21 MCG/ACT 2 puffs Inhalation Twice a day Active lovastatin 10 mg oral tablet (3 sources) HMG-CoA Reductase Inhibitor take 1 tablet by mouth once daily lovastatin (MEVACOR) 10 mg tablet Take 10 mg by mouth nightly. Active omega 9-xwb-wag-fish oil 360 mg-108 mg- 180 mg-1,200 mg capsule (1 source) take 1 capsule by mouth once daily omega 1-zhn-xbu-fish oil 360 mg-108 mg- 180 mg-1,200 mg capsule Take 1 capsule by mouth once daily. 0 Active 24 hr oxybutynin chloride 10 mg extended release oral tablet (9 sources) Cholinergic Muscarinic Antagonist Start: take 10 mg by mouth once daily oxybutynin 10 mg, Oral, Daily, Refills(s) 0 Start Date: 12/17/24 Status: Ordered Start: 11-30-2024 take 1 tablet by valentin th once daily Oxybutynin Chloride 10 mg tablet extended release 24hr Active 10 MG PO Daily November 30, 2024 12:00am traMADol hydrochloride 50 mg oral tablet (2 sources) Opioid Agonist Start: 09-22-2023 take 1 tablet by mouth twice daily as needed traMADol HCl 50 MG 1 tablet as needed Orally bid prn for 30 days Sep, Active Completed/Discontinued Medications Medication Drug Class(es) Dates Sig (Normalized) Sig (Original) acetaminophen 325 mg / oxyCODONE hydrochloride 5 mg oral tablet (10 sources) Opioid Agonist Start: 12-30-2023 End: 01-06-2024 take 1 tablet by mouth every four hours as needed Oxycodone-Acetamino phen 5-325 mg tablet Discontinued 1 TAB PO Every 4 hours as needed December 30, 2023 12:00am January 06, 2024 1:13pm ALPRAZolam 1 mg oral tablet (20 sources) Benzodiazepine Start: 09-16-2024 End: 10-11-2024 take 1 tablet by mouth once daily at bedtime Alprazolam 2 mg tablet Discontinued 2 MG PO Daily at bedtime September 29, 2024 11:15am October 11, 2024 10:00pm Start: 01-16-2024 End: 11-15-2024 take 1 tablet by mouth twice daily as needed for anxiety Alprazolam 1 mg tablet Discontinued 1 MG PO Twice daily as needed for anxiety 60 October 11, 2024 10:01pm November 15, 2024 1:17pm Start: 12-08-2023 take 1 tablet by valentin [...] Orally for 30 days Jan, Active Start: 04-24-2020 alprazolam Ora l, TID, Refills(s) 0, Anxiety Start Date: 04/24/20 Status: Ordered Start: 04-08-2019 End: 01-16-2024 take 1 tablet by mouth once daily at bedtime Alprazolam 2 mg Tablet Discontinued 2 MG PO Daily at bedtime April 07, 2019 11:00pm January 16, 2024 10:14am take 1 tablet by valentin th once daily as needed for anxiety ALPRAZolam (XANAX) 1 mg tablet Take 1 tablet (1 mg total) by mouth nightly as needed for anxiety. Active take 1 tablet by valentin th three times daily as needed ALPRAZolam (Xanax) 1 mg tablet Take 1 tablet (1 mg) by mouth 3 times a day as needed. 0 Active cephalexin 500 mg oral capsule (10 sources) Cephalosporin Antibacterial Start: 10-14-2024 End: 11-30-2024 take 1 capsule by mouth three times daily Cephalexin 500 mg capsule Discontinued 500 MG PO Three times daily 30 05October 22, 2024 10:00am November 30, 2024 1:52pm DULoxetine 60 mg delayed release oral capsule (15 sources) Serotonin and Norepinephrine Reuptake Inhibitor Start: 04-08-2019 End: 12-30-2023 take 1 capsule by mouth once daily Duloxetine 60 mg Capsule,Delayed Release(Dr/Ec) Discontinued 60 MG PO Daily April 07, [...] DO Active furosemide 20 mg oral tablet (7 sources) Loop Diuretic Start: 04-23-2024 End: 04-30-2024 take 1 tablet by mouth once daily Furosemide 20 mg tablet Discontinued 20 MG PO Daily April 22, 2024 11:00pm April 30, 2024 8:38am Lidocaine (20 sources) Antiarrhythmic, Amide Local Anesthetic Start: 08-20-2023 Lidocaine Aug, 30 mg Start: 05-08-2023 Lidocaine 29 J un2022 30 mg Start: 02-07-2023 Start: 02-07-2023 Lidocaine 31 M 2022 30 mg naproxen 500 mg oral tablet (12 sources) Nonsteroidal Anti-inflammatory Drug Start: 04-08-2019 End: 12-30-2023 take 1 tablet by mouth twice daily Naproxen 500 mg Tablet Discontinued 500 MG PO Twice daily April 07, 2019 11:00pm December 30, 2023 10:07am ondansetron 4 mg disintegrating oral tablet (10 sources) Serotonin-3 Receptor Antagonist Start: 10-14-2024 End: 12-07-2024 take 1 tablet by mouth every eight hours as needed for nausea and vomiting Ondansetron 4 mg tablet,disintegr ating Discontinued 4 MG PO Q8H as needed for nausea and vomiting October 14, 2024 12:00am December 07, 2024 10:55am Start: 02-07-2023 take 1 tablet by valentin three times daily as needed Ondansetron 4 MG 1 tablet on the tongue and allow to dissolve Orally tid prn for 10 days Jan, Active oxyCODONE hydrochloride 5 mg oral tablet (20 sources) Opioid Agonist Start: 01-05-2024 End: 04-23-2024 take 1 tablet by mouth every six hours Oxycodone 5 mg tablet Discontinued 5 MG PO Every 6 hours 28 January 06, 2024 April 23, 2024 1:57pm Start: 10-24-2023 take 1 tablet by valentin [...] for 7 days Sep, Active take 1 tablet by valentin th every four hours as needed for pain oxyCODONE (ROXICODONE) 15 mg immediate release tablet Take 15 mg by mouth every 4 (four) hours as needed for pain. Active take 1 capsule by mo uth every six hours as needed oxyCODONE (Oxy-IR) 5 mg immediate release capsule Take 1 capsule (5 mg) by mouth every 6 hours if needed for severe pain (7 - 10). 0 Active predniSONE 20 mg oral tablet (9 sources) Start: 01-19-2024 End: 02-10-2024 take 1 tablet by mouth twice daily Prednisone 20 mg tablet Discontinued 20 MG PO Twice daily January 18, 2024 11:00pm February 10, 2024 12:10pm pregabalin 50 mg oral capsule (20 sources) Start: 09-15-2024 End: 09-16-2024 take 2 capsules by mouth three times daily Pregabalin (Lyrica) 25 mg capsule Discontinued 50 MG PO Three times daily 02 08September 15, 2024 12:00am September 16, 2024 8:14am Start: 08-17-2024 End: 12-07-2024 take 1 capsule by mouth three times daily Pregabalin (Lyrica) 50 mg capsule Discontinued 50 MG PO Three times daily October 11, 2024 9:59pm December 07, 2024 10:55am Start: 08-12-2024 End: 08-17-2024 take 1 capsule by mouth twice daily Pregabalin (Lyrica) 75 mg capsule Discontinued 75 MG PO Twice daily 60 August 11, 2024 11:00pm August 17, 2024 3:07pm take 1 capsule by mo uth every twelve hours Lyrica 50 MG 1 capsule Orally Twice a day Active promethazine hydrochloride 12.5 mg oral tablet (18 sources) Phenothiazine Start: 01-16-2024 End: 02-10-2024 take 1 tablet by mouth every six hours as needed Promethazine 12.5 mg tablet Discontinued 12.5 MG PO Every 6 hours as needed January 16, 2024 12:00am February 10, 2024 12:10pm take 1 tablet by valentin th every [...] Apr, Not-Taking tiZANidine 4 mg oral tablet (12 sources) Central alpha-2 Adrenergic Agonist Start: 01-19-2024 End: 02-10-2024 take 1 tablet by mouth every eight hours as needed Tizanidine 4 mg tablet Discontinued 4 MG PO Every 8 hours as needed for muscle spasticity January 18, 2024 11:00pm February 10, 2024 12:10pm take 1 tablet by valentin th every six hours as needed tiZANidine (ZANAFLEX) 2 mg tablet Take 2 mg by mouth every 6 (six) hours as needed for muscle spasms. Active traZODone hydrochloride 50 mg oral tablet (5 sources) Serotonin Reuptake Inhibitor Start: 11-30-2024 End: 12-07-2024 take 1 tablet by mouth once daily at bedtime Trazodone 50 mg tablet Discontinued 50 MG PO Daily at bedtime November 30, 2024 12:00am December 07, 2024 10:55am triamcinolone acetonide 40 mg/ml injectable suspension (20 sources) Corticosteroid Start: 02-07-2023 Kenalog-40 11 Aug, 2023 40 mg Start: 02-07-2023 Problems Active Problems [...] sources) Anxiety disorder, unspecified; Translations: [Anxiety] Onset: 7 Chronic Asthma (15 sources) Uncomplicated asthma; Translations: [Unspecified asthma, uncomplicated] Onset: 5 07-23-2017 Chronic Cardiac dysrhythmias (20 sources) EKG: supraventricular tachycardia; Translations: [Paroxysmal supraventricular tachycardia] Onset: 7 12-09-2023 Chronic Chronic obstructive pulmonary disease and bronchiectasis (8 sources) Chronic obstructive pulmonary disease, unspecified; Translations: [Acute exacerbation of chronic asthmatic bronchitis] Onset: 7 07-23-2017 Chronic Chronic ulcer of skin (11 sources) Ulcer of lower extremity; Translations: [Non-pressure chronic ulcer of unspecified part of left lower leg with unspecified severity] 10-18-2024 Chronic Disorders of lipid metabolism (20 sources) Hyperlipidemia; Translations: [Other and unspecified hyperlipidemia] Onset: 9 12-09-2023 Chronic Disorders of teeth and jaw (1 source) Periapical abscess without sinus Episodic Esophageal disorders (20 sources) Gastroesophageal reflux disease without esophagitis; Translations: [Gastro-esophageal reflux disease without esophagitis] Onset: 7 Chronic Essential hypertension (1 source) Essential (primary) hypertension; Translations: [Essential (primary) hypertension] Onset: 3 Chronic Gastroduodenal ulcer (except hemorrhage) (4 sources) H/O: peptic ulcer; Translations: [Personal history of peptic ulcer disease] Episodic Genitourinary symptoms and ill-defined conditions (20 sources) Incontinence; Translations: [Unspecified urinary incontinence] Onset: 5 11-30-2024 Chronic Genitourinary symptoms and ill-defined conditions (17 sources) Dysuria; Translations: [Dysuria] Onset: 5 11-30-2024 Episodic Headache; including migraine (3 sources) Migraine; Translations: [Migraine, unspecified, not intractable, without status migrainosus] Onset: 7 07-23-2017 Chronic Inflammation; infection of eye (except that caused by tuberculosis or sexually transmitteddisease) (4 sources) Acute atopic conjunctivitis; Translations: [Acute atopic conjunctivitis, unspecified eye] Episodic Malaise and fatigue (20 sources) Fatigue; Translations: [Other fatigue] Onset: 5 12-30-2023 Episodic Malignant neoplasm without specification of site (3 sources) Malignant neoplastic disease; Translations: [Malignant (primary) neoplasm, unspecified] Onset: 7 07-23-2017 Chronic Mood disorders (4 sources) Major depressive disorder, single episode, unspecified; Translations: [Depressive disorder] Onset: 7 07-23-2017 Chronic Nausea and vomiting (20 sources) Nausea [...] diagnosis of hypertension] Episodic Other circulatory disease (7 sources) Abnormal peripheral pulse; Translations: [Other specified [...] Onset: 3 Episodic Other connective tissue disease (7 sources) Pain in lower limb; Translations: [Pain [...] chronic pain Chronic Other nervous system disorders (7 sources) Cold feet; Translations: [Unspecified disturbances of [...] Onset: 2 Episodic Other non-traumatic joint disorders (19 sources) Pain in right knee; Translations: [Right knee pain] Episodic Other non-traumatic joint disorders (19 sources) Pain in left knee; Translations: [Left [...] Onset: 4 Episodic Peripheral and visceral atherosclerosis (9 sources) Peripheral vascular disease, unspecified; Translations: [Peripheral [...] organs] Onset: 3 Episodic Residual codes; unclassified (9 sources) Insomnia; Translations: [Insomnia, unspecified] Onset: 9 09-16-2024 Episodic Residual codes; unclassified (4 sources) Postmenopausal state; Translations: [Asymptomatic menopausal state] Episodic Residual codes; unclassified (6 sources) Insomnia, unspecified; Translations: [Insomnia, unspecified] 11-30-2024 Episodic Screening and history of mental health [...] EXPOS COVID-19] Onset: 2 Unclassified (1 source) Supraventricular tachycardia, unspecified; Translations: [Supraventricular tachycardia, unspecified] Onset: 4 Urinary tract infections (9 sources) Urinary tract infectious disease; Translations: [Urinary tract infection, site not specified] Onset: 5 Episodic Varicose veins of lower extremity (4 sources) [...] 09-12-2014 Episodic Other aftercare (1 source) 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; Translations: [OTH [facility] CURRENT DRUG THERAPY] Onset: 07-23-2022 Episodic Other connective tissue disease (4 sources) Spasm; Translations: [Spasm of muscle] Onset: 01-07-2019 Episodic Other connective tissue disease (7 sources) Fibromyalgia; Translations: [Fibromyalgia] Onset: 07-23-2017 07-23-2017 Episodic Other connective tissue disease (4 sources) Muscle pain; Translations: [MYALGIA, UNSPECIFIED SITE] Onset: 01-07-2019 Episodic Other connective tissue disease (1 source) Pain in bilateral legs; Translations: [Pain in right leg] 06-10-2024 Episodic Other injuries and conditions due to [...] 09-04-2021 Episodic Residual codes; unclassified (4 sources) Edema; Translations: [Edema] Onset: 04-20-2018 Episodic Residual codes; unclassified (3 sources) Bilateral lower limb edema; Translations: [Localized edema] Onset: 06-10-2024 06-10-2024 Episodic Syncope (4 sources) Syncope and collapse; [...] Test Name Value Interpretation Reference Range Facility Urology Office/Clinic Noteon 01-03-2025 Urology Office/Clinic Note Urology Office/Clinic Note Chief Complaint uti f/u HPI Staff 69yr old female pt here for 2wk f/u for uti recheck. Pt had positive culture 12/28/24. Being treated with Cipro. Pt continues to have urgency and urge incontinence, but it has improved since starting the antibiotic. 12/14/24 - Staph Epi, treated with Doxy x7 days on 12/17/24. Previous Dx: incontinence without sensory awareness, uti Review of Systems PHQ Score Initial Depression Screen Score: 0 SCORE no fever, chills, malaise, myalgia. no rash/lesions. no chest pain, palpitations, or SOB. Physical Exam Vitals & Measurements HR: 68(Peripheral) RR: 18 BP: 117/83 HT: 67 in HT: 170 cm WT: 100 kg WT: 220.462 lb BMI: 34.6 General: nontoxic, NAD Mouth: moist mucosa Lungs: normal respiratory effort Cardio: regular rate, good distal perfusion Abdomen: nondistended Neurologic: Grossly normal Skin: No rashes or suspicious lesions Assessment/Plan 1. Recurrent UTI, (N39.0: Urinary tract infection, site not specified)Recurrent UTI 12/17/24: Was treated for UTI during hospital admission w Cipro 09/07. Received Doxy, and 2 rounds of Keflex for LE wound 10/12, 10/14, 10/22. 12/03/24 - Klebsiella urine cx, tx'd w Cipro x 7d. 12/14/24 - Staph Epi urine cx, tx'd w Doxy x 7d. Just started today. Nontoxic appearing. No systemic sx. No hx frequent UTIs. No hx stones. Not diabetic. PVR low. Does have UUI and FI but reports good hygiene. -Return in 2 weeks, drop urine for C&S a few days prior. TODAY: Repeat C&S 12/30/24 shows 100k Enterobacter. Pt reports mild improvement in incontinence while on abx, then worsened again quickly. Currently on Cipro x 10d. -We discussed that there is evidence that herbal supplements may help - cranberry, probiotics, and d-mannose. Given printed information and advised to start these. -We will check KUB & DAX to rule out stones as contributing factor to UTIs. -Will schedule Cysto with possible UD. The procedure risks, benefits, details, and treatment alternatives have been discussed with the patient. These include bleeding, infection, recurrent scar in over 50%, need for repeat dilation or other procedures, no symptom relief with dilation, among others. Full informed consent has been obtained. Will order Local anesthesia. -If vaginal atrophy identified at time of cysto, could consider adding topical estrogen cream for UTI prevention. I did not mention this today as pt was getting very overwhelmed w the current amount of information. Ordered: Body Mass Index (BMI) documented 3008F Current tobacco non-user 1036F Depression Screening Negative 3352F Influenza immunization status assessed 1030F Medication list documented in medical record 1159F Most recent diastolic blood pressure 80-89 mm Hg 3079F Patient screen for fall risk: no falls in last year or 1 fall with no injury in last year 1101F Review of all meds by a prescribing practitioner or clinical pharmacist documented in EHR 1160F Systolic BP <130 mm Hg (Most Recent) 3074F Urology Procedure Order US Renal XR Abdomen 1 View 2. 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 +ISRAEL, UUI, FI, and incontinence without sensory awareness. Reports all are new onset since hospital admission this fall. [Severe OA. Knee/shoulder pain but no surgery.] On Oxybutynin 10mg ER. Does not feel it's helping but +cx x 3 recently. -Need to clear infections first. Then can assess urinary habits. May be a good candidate for SNM d/t urinary and fecal incontinence. Follow-up With When Contact Information [facility] [place] [phone] Business (1) Additional Instructions: our supply tech will be contacting you for follow-up Patient Education Antibiotic Medicine, Adult Problem List/Past Medical History Ongoing Incontinence without sensory awareness Recurrent UTI UTI (urinary tract infection) Historical No qualifying data Procedure/Surgical History Gallbladder, Hand surgery care plan, Hysterectomy, Rib resection and open drainage of pleural cavity. Medications alprazolam, Oral, TID atenolol, Oral, BID Cipro 500 mg Tab, 500 mg= 1 tab(s), Oral, q12hr oxybutynin, 10 mg, Oral, Daily, Not taking Allergies sulfa drugs (Rash) Social History Alcohol Never., 12/17/2024 Substance Abuse Never., 12/17/2024 Tobacco Never (less than 100 in lifetime) Tobacco Use:. Never Smokeless Tobacco Use:., 01/03/2025 Family History Family history is unknown Immunizations Vaccine Date Status Comments SARS-CoV-2 (COVID-19) [id number] 09/06/2022 Recorded SARS-CoV-2 (COVID-19) mRNA BNT-162b2 vax 07/02/2021 Recorded 2024-12-17: TPV65 SARS-CoV-2 (COVID-19) mRNA BNT-162b2 vax 06/11/2021 Recorded 2024-12-17: TPV65 influenza virus vaccine, inactivated 09/14/2013 Recorded Normal [facility] Comment on above: Result Comment: Elec tronically Signed By: SHANTA SANDHU PA-C\.diogo\Date and Time Signed: 01/03/25 12:53 EST C Urineon 12-30-2024 Bacteria identified Cx Nom (U) Microbiology PROCEDURE: Urine Culture [R1] SOURCE: U Random BODY SITE: COLLECTED DATE/TIME: 12/28/2024 09:32 EST RECEIVED DATE/TIME: 12/28/2024 17:42 EST START DATE/TIME: 12/28/2024 17:42 EST FREE TEXT SOURCE: SHANTA SANDHU PA-C, PA-C, SHANTA Schofield FINAL REPORTS Final Report [] Verified Date/Time: 12/30/2024 09:37 EST >100,000 cfu/ml Enterobacter cloacae SUSCEPTIBILITY RESULTS __ LEGEND: S=Susceptible, N/R=Not Reported, Blank=Data not available, or drug not advisable or tested, I=Intermediate, ESBL=Extended spectrum beta-lactamase, R=Resistant, TFG=Thymidine-dependen t strain, VINICIO=Beta-lactamase positive, OSCAR=mcg/m;(mg/L), S*=Predicted susceptible interp, R*=Predicted resistant interp Entclo Antibiotic OSCAR Dilutn OSCAR Interp Ampicillin >16 R Ampicillin/ 16/8 R* Sulbactam Aztreonam <=4 S Cefazolin >16 R Cefepime <=2 S Ceftazidime <=1 S Ceftazidime/ <=8 S Avibactam Ceftriaxone 2 I Cefuroxime >16 R Ciprofloxacin <=0.25 S Ertapenem <=0.5 S Gentamicin <=2 S Levofloxacin <=0.5 S Meropenem <=1 S Nitrofurantoin >64 R Piperacillin/ <=8 S Tazobactam Tetracycline >8 R Tobramycin <=2 S Trimethoprim/ <=2/38 S Sulfa Performing Locations R1: This test was performed at: [facility], [address] [place] [address], [id number] , [place], [facility] Comment on above: Performed By: #### 2 [id number] #### [facility] [address] [place] [id number] Ambulatory Visit Summaryon 0 12-28-2024 Ambulatory Visit Summary Ambulatory Visit Summary ADRIANA DINERO I :1955 Visit Date:12/28/2024 Ambulatory Visit Instructions Your Diagnosis UTI (urinary tract infection) Tests Performed Urine Culture -- Results Pending -- Please visit your patient portal for your results or contact your primary care physician. Your Care Team Attending Physician - SHANTA SANDHU PA-C Primary Care Physician - TOBY QUINTANA MD This Is Your Medications List alprazolam atenolol doxycycline oxybutynin Procedures Performed Gallbladder, Hand surgery care plan, Hysterectomy, Rib resection and open drainage of pleural cavity. What to do next Scheduled Follow-Up Appointments 2024 8:20 AM EST With: SHANTA SANDHU PA-C Where: [facility] [address] [address]- Medications What How Much When Instructions Unchanged alprazolam By Mouth 3 times a day Unchanged atenolol By Mouth 2 times a day Unchanged doxycycline 100 Milligram By Mouth 2 times a day Unchanged oxybutynin 10 Milligram By Mouth Every day Allergies sulfa drugs (Rash) Problems Ongoing - Any problem that you are currently receiving treatment for. Incontinence without sensory awareness UTI (urinary tract infection) Patient Survey You may receive a survey via text or e-mail asking about your office visit. Please share your experience with us by completing your survey. We appreciate your feedback and thank you for choosing us for your care. Normal [facility] Urine Cultureon 12-13-2024 Bacteria identified Cx Nom (U) ORGANISM: Staphylococcus epidermidis (O:STAEPI) Lydia Count >100,000 Aerobic OSCAR Charge (PCMIC38) --- SUSCEPTIBILITY -- ORGANISM: O:STAEPI ANTIBIOTIC INTERPRETATION OSCAR Ciprofloxacin R >2 Daptomycin S <0.5 Levofloxacin R >4 Linezolid S <1 Nitrofurantoin S <32 Oxacillin R >2 Penicillin R >2 Tetracycline S <4 Trimethoprim/Sulfameth oxazole R >2 Vancomycin S 1 S = SUSCEPTIBLE I = INTERMEDIATE R = RESISTANT BLANK = DATA NOT AVAILABLE, OR DRUG NOT ADVISABLE OR TESTED R* = RESISTANCE DUE TO EXTENDED SPECTRUM BETA-LACTAMASES ESBL = EXTENDED SPECTRUM BETA-LACTAMASE TFG = THYMIDINE-DEPENDENT STRAIN VINICIO = BETA-LACTAMASE POSITIVE IB = INDUCIBLE BETA-LACTAMASE. APPEARS IN PLACE OF 'S' WITH SPECIES KNOWN TO POSSESS INDUCIBLE BETA-LACTAMASES. POTENTIALLY THEY MAY BECOME RESISTANT TO ALL B-LACTAM DRUGS. PERFORMED BY: [place] [address] PATHOLOGIST BABY SITTER CHETNA PORTILLO M.D. Normal [facility] Comment on above: Performed By: #### C UU #### [address] Appearance of UrineOrdered B y: Toby Quintana on 12-01-2024 Appearance (U) Urine appearance Clear [facility] Bacteria [Presence] in Urine by AutomatedOrdered By: Toby Quintana on 12-01-2024 Bacteria Auto Ql (U) Bacteria [Presence] in Urine by Automated None Seen [facility] Bilirubin Test strip Ql (U)O rdered By: Toby Quintana on 12-01-2024 Bilirubin Ql (U) Bilirubin.total [Presence] in Urine by Test strip Negative [facility] Color Auto (U)Ordered By: Vincenzo Quintana on 12-01-2024 Color (U) Color of Urine by Auto Yellow Fi [facility] Dipstick and Microscopicon 0 12-01-2024 Appearance (U) Clear Normal Clear [facility] Comment on above: Order Comment: Name Collection Type:: Voided Performed By: #### A DDONUAPLUS, CUU #### [facility] [address] [id number] [place] Bacteria,Urine None Seen Normal None Seen [facility] Comment on above: Order Comment: Name Collection Type:: Voided Performed By: #### A DDONUAPLUS, CUU #### [place] [address] [place] Bilirubin,Urine Negative Normal Negative [facility] Comment on above: Order Comment: Name Collection Type:: Voided Performed By: #### A DDONUAPLUS, CUU #### [place] [address] [place] Color (U) Yellow Normal Yellow [facility] Comment on above: Order Comment: Name Collection Type:: Voided Performed By: #### A DDONUAPLUS, CUU #### [address] Glucose Ql (U) Normal Normal Normal [facility] Comment on above: Order Comment: Name Collection Type:: Voided Performed By: #### A DDONUAPLUS, CUU #### [place] [address] [place] Hyaline Casts,Urine None Normal 0-8 [facility] Comment on above: Order Comment: Name Collection Type:: Voided Performed By: #### A DDONUAPLUS, CUU #### [place] [address] [place] Ketones Ql (U) Negative Normal Negative [facility] Comment on above: Order Comment: Name Collection Type:: Voided Performed By: #### A DDONUAPLUS, CUU #### [place] [address] [place] Leukocyte esterase Test strip Ql (U) 2+ High Negative [facility] Comment on above: Order Comment: Name Collection Type:: Voided Performed By: #### A DDONUAPLUS, CUU #### [place] [address] [place] Mucus,Urine Rare Normal [facility] Comment on above: Order Comment: Name Collection Type:: Voided Result Comment: PERF ORMED BY: [place] [address] PATHOLOGIST BABY SITTER CHETNA PORTILLO M.D. Performed By: #### A DDONUAPLUS, CUU #### [place] [address] [place] Nitrite,Urine Negative Normal Negative [facility] Comment on above: Order Comment: Name Collection Type:: Voided Performed By: #### A DDONUAPLUS, CUU #### [place] [address] [place] Occult Blood,Urine Negative Normal Negative [facility] Comment on above: Order Comment: Name Collection Type:: Voided Result Comment: PERF ORMED BY: [place] [address] PATHOLOGIST BABY SITTER CHETNA PORTILLO M.D. Performed By: #### A DDONUAPLUS, CUU #### [place] [id number] [place] pH (U) 6.5 [pH] Normal 5.0-9.0 [facility] Comment on above: Order Comment: Name Collection Type:: Voided Performed By: #### A DDONUAPLUS, CUU #### [place] [address] [place] Protein,Urine Negative Normal Negative [facility] Comment on above: Order Comment: Name Collection Type:: Voided Performed By: #### A DDONUAPLUS, CUU #### [place] [id number] [place] RBC,Urine 1 [HPF] Normal 0-4 [facility] Comment on above: Order Comment: Name Collection Type:: Voided Performed By: #### A DDONUAPLUS, CUU #### [place] [id number] [place] Specificy [place],Urine 1.017 Normal 1.001-1.030 [facility] Comment on above: Order Comment: Name Collection Type:: Voided Performed By: #### A DDONUAPLUS, CUU #### [facility] [address] Squamous Epithelial Cell,Urine 1 [HPF] Normal 0-2 [facility] Comment on above: Order Comment: Name Collection Type:: Voided Performed By: #### A DDONUAPLUS, CUU #### [facility] [address] Urobilinogen,Urine 3 mg/dL High Normal [facility] Comment on above: Order Comment: Name Collection Type:: Voided Performed By: #### A DDONUAPLUS, CUU #### [facility] [address] WBC,Urine 10 [HPF] High 0-4 [facility] Comment on above: Order Comment: Name Collection Type:: Voided Performed By: #### A DDONUAPLUS, CUU #### [address] Epithelial cells.squamous [# /area] in Urine sediment by Automated countOrdered By: Toby Quintana on 12-01-2024 Epithelial cells.squamous Auto (Urine sed) [#/Area] Epithelial cells.squamous [#/area] in Urine sediment by Automated count 0-2 [facility] Erythrocytes [#/area] in Uri ne sediment by Automated countOrdered By: Toby Quintana on 12-01-2024 RBC Auto (Urine sed) [#/Area] Erythrocytes [#/area] in Urine sediment by Automated count 0-4 [facility] Glucose [Mass/volume] in Uri ne by Test stripOrdered By: Toby Quintana on 12-01-2024 Glucose Test strip (U) [Mass/Vol] Glucose [Mass/volume] in Urine by Test strip Normal [facility] Hemoglobin Test strip Ql (U) Ordered By: Toby Quintana on 12-01-2024 Hemoglobin Ql (U) Hemoglobin [Presence ] in Urine by Test strip Negative [facility] Hyaline casts [#/area] in Ur ine sediment by Automated countOrdered By: Toby Quintana on 12-01-2024 Hyaline casts Auto (Urine sed) [#/Area] Hyaline casts [#/area] in Urine sediment by Automated count 0-8 [facility] Ketones Test strip Ql (U)Ord ered By: Toby Quintana on 12-01-2024 Ketones Ql (U) Ketones [Presence] i n Urine by Test strip Negative [facility] Leukocyte esterase [Presence ] in Urine by Test stripOrdered By: Toby Quintana on 12-01-2024 Leukocyte esterase Test strip Ql (U) Leukocyte esterase [Presence] in Urine by Test strip High Negative [facility] Leukocytes [#/area] in Urine sediment by Automated countOrdered By: Toby Quintana on 12-01-2024 WBC Auto (Urine sed) [#/Area] Leukocytes [#/area] in Urine sediment by Automated count High 0-4 [facility] Mucus [Presence] in Urine by AutomatedOrdered By: Toby Quintana on 12-01-2024 Mucus Auto Ql (U) Mucus [Presence] in Urine by Automated [facility] Nitrite Test strip Ql (U)Ord ered By: Toby Quintana on 12-01-2024 Nitrite Ql (U) Nitrite [Presence] i n Urine by Test strip Negative [facility] Protein Test strip (U) [Mass /Vol]Ordered By: Toby Quintana on 12-01-2024 Protein (U) [Mass/Vol] Protein [Mass/volume] in Urine by Test strip Negative [facility] Specific gravity Test strip (U) [Rel density]Ordered By: Toby Quintana on 12-01-2024 Specific gravity (U) [Rel density] Specific gravity of Urine by Test strip 1.001-1.030 [facility] Urine Cultureon 12-01-2024 Bacteria identified Cx Nom (U) ORGANISM: Klebsiella aerogenes (O:KLEAER) Lydia Count >100,000 Aerobic OSCAR Charge (NMIC56) --- SUSCEPTIBILITY -- ORGANISM: O:KLEAER ANTIBIOTIC INTERPRETATION OSCAR Amikacin S <16 Aztreonam IB <4 Cefepime S <2 Ceftazidime R >16 Ceftazidime/Avibactam S <4 Ceftriaxone R 32 Cefuroxime R >16 Ciprofloxacin S <0.25 Ertapenem S <0.5 Gentamicin S <2 Levofloxacin S <0.5 Meropenem S <1 Meropenem/Vaborbactam S <2 Nitrofurantoin I 64 Piperacillin/Tazobacta m I 64 Tetracycline S <4 Tigecycline S <2 Tobramycin S <2 Trimethoprim/Sulfameth oxazole S <0.5 S = SUSCEPTIBLE I = INTERMEDIATE R = RESISTANT BLANK = DATA NOT AVAILABLE, OR DRUG NOT ADVISABLE OR TESTED R* = RESISTANCE DUE TO EXTENDED SPECTRUM BETA-LACTAMASES ESBL = EXTENDED SPECTRUM BETA-LACTAMASE TFG = THYMIDINE-DEPENDENT STRAIN VINICIO = BETA-LACTAMASE POSITIVE IB = INDUCIBLE BETA-LACTAMASE. APPEARS IN PLACE OF 'S' WITH SPECIES KNOWN TO POSSESS INDUCIBLE BETA-LACTAMASES. POTENTIALLY THEY MAY BECOME RESISTANT TO ALL B-LACTAM DRUGS. PERFORMED BY: [place] [address] PATHOLOGIST BABY SITTER CHETNA PORTILLO M.D. Normal [facility] Comment on above: Performed By: #### A DDONUAPLUS, CUU #### [address] Urine cultureOrdered By: Kaila Quintana on 12-01-2024 Bacteria identified Cx Nom (U) Abnormal [facility] Urobilinogen Test strip (U) [Mass/Vol]Ordered By: Toby Quintana on 12-01-2024 Urobilinogen (U) [Mass/Vol] Urobilinogen [Mass/volume] in Urine by Test strip High Normal [facility] pH Test strip (U)Ordered By: Toby Quintana on 12-01-2024 pH (U) pH of Urine by Test strip 5.0-9.0 [facility] Basophils Auto (Bld) [#/Vol] on 09-11-2024 Basophils (Bld) [#/Vol] Automated basophil count 0.0-0.1 [facility] Basophils/100 WBC Auto (Bld) on 09-11-2024 Basophils/100 WBC (Bld) Automated basophil % 0.2-2.0 [facility] Eosinophils/100 WBC Auto (Bl d)on 09-11-2024 Eosinophils/100 WBC (Bld) Automated eosinophil % High 0.9-7.0 [facility] Erythrocyte distribution wid th Auto (RBC) [Ratio]on 09-11-2024 Erythrocyte distribution width (RBC) [Ratio] Erythrocyte distribution width [Ratio] by Automated count 11.0-15.0 [facility] Estimated glomerular filtrat ion rate (GFR) non- Americanon 09-11-2024 GFR/1.73 sq M.predicted among non-blacks MDRD (S/P/Bld) [Vol rate/Area] Estimated glomerular filtration rate (GFR) non- >=60 mL/min/1.73m 2 [facility] Hematocrit Auto (Bld) [Volum e fraction]on 09-11-2024 Hematocrit (Bld) [Volume fraction] Hematocrit [Volume Fraction] of Blood by Automated count 36.0-48.0 [facility] Hemoglobin [Mass/volume] in Bloodon 09-11-2024 Hemoglobin (Bld) [Mass/Vol] Hemoglobin [Mass/volume] in Blood Low 12.0-16.0 [facility] Laboratory - Chemistry and C hemistry - challengeon 09-11-2024 Calcium [Mass/Vol] 8.4 mg/dL Low 8.5-10.1 [facility] Chloride [Moles/Vol] 103 mmol/L 98-107 [facility] CO2 [Moles/Vol] 30.6 mmol/L 21.0-32.0 [facility] Creatinine [Mass/Vol] 0.61 mg/dL 0.55-1.02 [facility] GFR/1.73 sq M.predicted MDRD (S/P/Bld) [Vol rate/Area] mL/min/{1.73_m2} >=60 mL/min/1.73m 2 [facility] Glucose [Mass/Vol] 105 mg/dL 74-106 [facility] Potassium [Moles/Vol] 3.8 mmol/L 3.5-5.1 [facility] Sodium [Moles/Vol] 141 mmol/L 136-145 [facility] Urea nitrogen [Mass/Vol] 8.0 mg/dL 7.0-18.0 [facility] Urea nitrogen/Creatinine [Mass ratio] 13.1 mg/mg [facility] Laboratory - Hematology and Cell countson 09-11-2024 Immature granulocytes/100 WBC (Bld) 0.4 % 0.0-0.5 [facility] Leukocytes [#/volume] correc wanda for nucleated erythrocytes in Blood by Automated counon 09-11-2024 WBC corrected for nucl RBC Auto (Bld) [#/Vol] Leukocytes [#/volume] corrected for nucleated erythrocytes in Blood by Automated coun 4.0-11.0 [facility] Lymphocytes Auto (Bld) [#/Vo l]on 09-11-2024 Lymphocytes (Bld) [#/Vol] Lymphocytes [#/volume] in Blood by Automated count Low 1.2-3.8 [facility] Lymphocytes/100 WBC Auto (Bl d)on 09-11-2024 Lymphocytes/100 WBC (Bld) Lymphocytes/100 leukocytes in Blood by Automated count 20.5-60.0 [facility] MCH Auto (RBC) [Entitic mass ]on 09-11-2024 MCH (RBC) [Entitic mass] MCH [Entitic mass] by Automated count 26.7-34.0 [facility] MCHC Auto (RBC) [Mass/Vol]on 09-11-2024 MCHC (RBC) [Mass/Vol] MCHC [Mass/volume] by Automated count 29.9-35.2 [facility] MCV Auto (RBC) [Entitic vol] on 09-11-2024 MCV (RBC) [Entitic vol] MCV [Entitic volume] by Automated count 81.0-99.0 [facility] Monocytes Auto (Bld) [#/Vol] on 09-11-2024 Monocytes (Bld) [#/Vol] Automated blood monocyte count 0.3-0.8 [facility] Monocytes/100 WBC Auto (Bld) on 09-11-2024 Monocytes/100 WBC (Bld) Automated monocyte % High 1.7-12.0 [facility] Neutrophils Auto (Bld) [#/Vo l]on 09-11-2024 Neutrophils (Bld) [#/Vol] Neutrophils [#/volume] in Blood by Automated count 1.4-6.5 [facility] Neutrophils/100 WBC Auto (Bl d)on 09-11-2024 Neutrophils/100 WBC (Bld) Automated neutrophil % 43.0-75.0 [facility] No Panel Informationon 09-11 Eosinophils # (Auto) 0.4 10 3/uL 0.0-0.7 [facility] Immature Granulocyte # (Auto) 0.02 10 3/uL 0.00-0.03 [facility] Platelet mean volume Auto (B ld) [Entitic vol]on 09-11-2024 Platelet mean volume (Bld) [Entitic vol] Platelet mean volume [Entitic volume] in Blood by Automated count 9.5-13.5 [facility] Platelets Auto (Bld) [#/Vol] on 09-11-2024 Platelets (Bld) [#/Vol] Platelets [#/volume] in Blood by Automated count 150-450 [facility] RBC Auto (Bld) [#/Vol]on RBC (Bld) [#/Vol] Erythrocytes [#/volume] in Blood by Automated count 4.20-5.40 [facility] Serum or plasma anion gap de terminationon 09-11-2024 Anion gap [Moles/Vol] Serum or plasma anion gap determination [facility] Basophils Auto (Bld) [#/Vol] on 09-10-2024 Basophils (Bld) [#/Vol] Automated basophil count 0.0-0.1 [facility] Basophils/100 WBC Auto (Bld) on 09-10-2024 Basophils/100 WBC (Bld) Automated basophil % 0.2-2.0 [facility] Eosinophils/100 WBC Auto (Bl d)on 09-10-2024 Eosinophils/100 WBC (Bld) Automated eosinophil % 0.9-7.0 [facility] Erythrocyte distribution wid th Auto (RBC) [Ratio]on 09-10-2024 Erythrocyte distribution width (RBC) [Ratio] Erythrocyte distribution width [Ratio] by Automated count 11.0-15.0 [facility] Estimated glomerular filtrat ion rate (GFR) non- Americanon 09-10-2024 GFR/1.73 sq M.predicted among non-blacks MDRD (S/P/Bld) [Vol rate/Area] Estimated glomerular filtration rate (GFR) non- >=60 mL/min/1.73m 2 [facility] Hematocrit Auto (Bld) [Volum e fraction]on 09-10-2024 Hematocrit (Bld) [Volume fraction] Hematocrit [Volume Fraction] of Blood by Automated count 36.0-48.0 [facility] Hemoglobin [Mass/volume] in Bloodon 09-10-2024 Hemoglobin (Bld) [Mass/Vol] Hemoglobin [Mass/volume] in Blood 12.0-16.0 [facility] Laboratory - Chemistry and C hemistry - challengeon 09-10-2024 Calcium [Mass/Vol] 8.9 mg/dL 8.5-10.1 [facility] Chloride [Moles/Vol] 103 mmol/L 98-107 [facility] CO2 [Moles/Vol] 31.4 mmol/L 21.0-32.0 [facility] Creatinine [Mass/Vol] 0.73 mg/dL 0.55-1.02 [facility] GFR/1.73 sq M.predicted MDRD (S/P/Bld) [Vol rate/Area] mL/min/{1.73_m2} >=60 mL/min/1.73m 2 [facility] Glucose [Mass/Vol] 111 mg/dL High 74-106 [facility] Potassium [Moles/Vol] 3.7 mmol/L 3.5-5.1 [facility] Sodium [Moles/Vol] 140 mmol/L 136-145 [facility] Urea nitrogen [Mass/Vol] 9.0 mg/dL 7.0-18.0 [facility] Urea nitrogen/Creatinine [Mass ratio] 12.3 mg/mg [facility] Laboratory - Hematology and Cell countson 09-10-2024 Immature granulocytes/100 WBC (Bld) 0.5 % 0.0-0.5 [facility] Leukocytes [#/volume] correc wanda for nucleated erythrocytes in Blood by Automated counon 09-10-2024 WBC corrected for nucl RBC Auto (Bld) [#/Vol] Leukocytes [#/volume] corrected for nucleated erythrocytes in Blood by Automated coun 4.0-11.0 [facility] Lymphocytes Auto (Bld) [#/Vo l]on 09-10-2024 Lymphocytes (Bld) [#/Vol] Lymphocytes [#/volume] in Blood by Automated count 1.2-3.8 [facility] Lymphocytes/100 WBC Auto (Bl d)on 09-10-2024 Lymphocytes/100 WBC (Bld) Lymphocytes/100 leukocytes in Blood by Automated count Low 20.5-60.0 [facility] MCH Auto (RBC) [Entitic mass ]on 09-10-2024 MCH (RBC) [Entitic mass] MCH [Entitic mass] by Automated count 26.7-34.0 [facility] MCHC Auto (RBC) [Mass/Vol]on 09-10-2024 MCHC (RBC) [Mass/Vol] MCHC [Mass/volume] by Automated count 29.9-35.2 [facility] MCV Auto (RBC) [Entitic vol] on 09-10-2024 MCV (RBC) [Entitic vol] MCV [Entitic volume] by Automated count 81.0-99.0 [facility] Monocytes Auto (Bld) [#/Vol] on 09-10-2024 Monocytes (Bld) [#/Vol] Automated blood monocyte count 0.3-0.8 [facility] Monocytes/100 WBC Auto (Bld) on 09-10-2024 Monocytes/100 WBC (Bld) Automated monocyte % High 1.7-12.0 [facility] Neutrophils Auto (Bld) [#/Vo l]on 09-10-2024 Neutrophils (Bld) [#/Vol] Neutrophils [#/volume] in Blood by Automated count 1.4-6.5 [facility] Neutrophils/100 WBC Auto (Bl d)on 09-10-2024 Neutrophils/100 WBC (Bld) Automated neutrophil % 43.0-75.0 [facility] No Panel Informationon 09-10 Eosinophils # (Auto) 0.4 10 3/uL 0.0-0.7 [facility] Immature Granulocyte # (Auto) 0.03 10 3/uL 0.00-0.03 [facility] Platelet mean volume Auto (B ld) [Entitic vol]on 09-10-2024 Platelet mean volume (Bld) [Entitic vol] Platelet mean volume [Entitic volume] in Blood by Automated count 9.5-13.5 [facility] Platelets Auto (Bld) [#/Vol] on 09-10-2024 Platelets (Bld) [#/Vol] Platelets [#/volume] in Blood by Automated count 150-450 [facility] RBC Auto (Bld) [#/Vol]on RBC (Bld) [#/Vol] Erythrocytes [#/volume] in Blood by Automated count 4.20-5.40 [facility] Serum or plasma anion gap de terminationon 09-10-2024 Anion gap [Moles/Vol] Serum or plasma anion gap determination [facility] Basophils Auto (Bld) [#/Vol] on 09-09-2024 Basophils (Bld) [#/Vol] Automated basophil count 0.0-0.1 [facility] Basophils/100 WBC Auto (Bld) on 09-09-2024 Basophils/100 WBC (Bld) Automated basophil % 0.2-2.0 [facility] Eosinophils/100 WBC Auto (Bl d)on 09-09-2024 Eosinophils/100 WBC (Bld) Automated eosinophil % 0.9-7.0 [facility] Erythrocyte distribution wid th Auto (RBC) [Ratio]on 09-09-2024 Erythrocyte distribution width (RBC) [Ratio] Erythrocyte distribution width [Ratio] by Automated count 11.0-15.0 [facility] Estimated glomerular filtrat ion rate (GFR) non- Americanon 09-09-2024 GFR/1.73 sq M.predicted among non-blacks MDRD (S/P/Bld) [Vol rate/Area] Estimated glomerular filtration rate (GFR) non- >=60 mL/min/1.73m 2 [facility] Hematocrit Auto (Bld) [Volum e fraction]on 09-09-2024 Hematocrit (Bld) [Volume fraction] Hematocrit [Volume Fraction] of Blood by Automated count 36.0-48.0 [facility] Hemoglobin [Mass/volume] in Bloodon 09-09-2024 Hemoglobin (Bld) [Mass/Vol] Hemoglobin [Mass/volume] in Blood 12.0-16.0 [facility] Laboratory - Chemistry and C hemistry - challengeon 09-09-2024 Calcium [Mass/Vol] 9.2 mg/dL 8.5-10.1 [facility] Chloride [Moles/Vol] 102 mmol/L 98-107 [facility] CO2 [Moles/Vol] 31.5 mmol/L 21.0-32.0 [facility] Creatinine [Mass/Vol] 0.72 mg/dL 0.55-1.02 [facility] GFR/1.73 sq M.predicted MDRD (S/P/Bld) [Vol rate/Area] mL/min/{1.73_m2} >=60 mL/min/1.73m 2 [facility] Glucose [Mass/Vol] 97 mg/dL 74-106 [facility] Magnesium [Mass/Vol] 1.8 mg/dL 1.8-2.4 [facility] Potassium [Moles/Vol] 3.8 mmol/L 3.5-5.1 [facility] Sodium [Moles/Vol] 140 mmol/L 136-145 [facility] Urea nitrogen [Mass/Vol] 10.0 mg/dL 7.0-18.0 [facility] Urea nitrogen/Creatinine [Mass ratio] 13.9 mg/mg [facility] Laboratory - Hematology and Cell countson 09-09-2024 Immature granulocytes/100 WBC (Bld) 0.6 % High 0.0-0.5 [facility] Leukocytes [#/volume] correc wanda for nucleated erythrocytes in Blood by Automated counon 09-09-2024 WBC corrected for nucl RBC Auto (Bld) [#/Vol] Leukocytes [#/volume] corrected for nucleated erythrocytes in Blood by Automated coun 4.0-11.0 [facility] Lymphocytes Auto (Bld) [#/Vo l]on 09-09-2024 Lymphocytes (Bld) [#/Vol] Lymphocytes [#/volume] in Blood by Automated count 1.2-3.8 [facility] Lymphocytes/100 WBC Auto (Bl d)on 09-09-2024 Lymphocytes/100 WBC (Bld) Lymphocytes/100 leukocytes in Blood by Automated count Low 20.5-60.0 [facility] MCH Auto (RBC) [Entitic mass ]on 09-09-2024 MCH (RBC) [Entitic mass] MCH [Entitic mass] by Automated count 26.7-34.0 [facility] MCHC Auto (RBC) [Mass/Vol]on 09-09-2024 MCHC (RBC) [Mass/Vol] MCHC [Mass/volume] by Automated count 29.9-35.2 [facility] MCV Auto (RBC) [Entitic vol] on 09-09-2024 MCV (RBC) [Entitic vol] MCV [Entitic volume] by Automated count 81.0-99.0 [facility] Monocytes Auto (Bld) [#/Vol] on 09-09-2024 Monocytes (Bld) [#/Vol] Automated blood monocyte count 0.3-0.8 [facility] Monocytes/100 WBC Auto (Bld) on 09-09-2024 Monocytes/100 WBC (Bld) Automated monocyte % 1.7-12.0 [facility] Neutrophils Auto (Bld) [#/Vo l]on 09-09-2024 Neutrophils (Bld) [#/Vol] Neutrophils [#/volume] in Blood by Automated count 1.4-6.5 [facility] Neutrophils/100 WBC Auto (Bl d)on 09-09-2024 Neutrophils/100 WBC (Bld) Automated neutrophil % 43.0-75.0 [facility] No Panel Informationon 09-09 Eosinophils # (Auto) 0.4 10 3/uL 0.0-0.7 [facility] Immature Granulocyte # (Auto) 0.04 10 3/uL High 0.00-0.03 [facility] Platelet mean volume Auto (B ld) [Entitic vol]on 09-09-2024 Platelet mean volume (Bld) [Entitic vol] Platelet mean volume [Entitic volume] in Blood by Automated count 9.5-13.5 [facility] Platelets Auto (Bld) [#/Vol] on 09-09-2024 Platelets (Bld) [#/Vol] Platelets [#/volume] in Blood by Automated count 150-450 [facility] RBC Auto (Bld) [#/Vol]on RBC (Bld) [#/Vol] Erythrocytes [#/volume] in Blood by Automated count 4.20-5.40 [facility] Serum or plasma anion gap de terminationon 09-09-2024 Anion gap [Moles/Vol] Serum or plasma anion gap determination [facility] Basophils Auto (Bld) [#/Vol] on 09-07-2024 Basophils (Bld) [#/Vol] Automated basophil count 0.0-0.1 [facility] Basophils (Bld) [#/Vol] Automated basophil count 0.0-0.1 [facility] Basophils/100 WBC Auto (Bld) on 09-07-2024 Basophils/100 WBC (Bld) Automated basophil % 0.2-2.0 [facility] Basophils/100 WBC (Bld) Automated basophil % 0.2-2.0 [facility] Eosinophils/100 WBC Auto (Bl d)on 09-07-2024 Eosinophils/100 WBC (Bld) Automated eosinophil % 0.9-7.0 [facility] Eosinophils/100 WBC (Bld) Automated eosinophil % 0.9-7.0 [facility] Erythrocyte distribution wid th Auto (RBC) [Ratio]on 09-07-2024 Erythrocyte distribution width (RBC) [Ratio] Erythrocyte distribution width [Ratio] by Automated count 11.0-15.0 [facility] Erythrocyte distribution width (RBC) [Ratio] Erythrocyte distribution width [Ratio] by Automated count 11.0-15.0 [facility] Estimated glomerular filtrat ion rate (GFR) non- Americanon 09-07-2024 GFR/1.73 sq M.predicted among non-blacks MDRD (S/P/Bld) [Vol rate/Area] Estimated glomerular filtration rate (GFR) non- Low >=60 mL/min/1.73m 2 [facility] GFR/1.73 sq M.predicted among non-blacks MDRD (S/P/Bld) [Vol rate/Area] Estimated glomerular filtration rate (GFR) non- >=60 mL/min/1.73m 2 [facility] Globulin Calc (S) [Mass/Vol] on 09-07-2024 Globulin (S) [Mass/Vol] Serum globulin measurement by calculation (mass/volume) [facility] Hematocrit Auto (Bld) [Volum e fraction]on 09-07-2024 Hematocrit (Bld) [Volume fraction] Hematocrit [Volume Fraction] of Blood by Automated count 36.0-48.0 [facility] Hematocrit (Bld) [Volume fraction] Hematocrit [Volume Fraction] of Blood by Automated count 36.0-48.0 [facility] Hemoglobin [Mass/volume] in Bloodon 09-07-2024 Hemoglobin (Bld) [Mass/Vol] Hemoglobin [Mass/volume] in Blood 12.0-16.0 [facility] Hemoglobin (Bld) [Mass/Vol] Hemoglobin [Mass/volume] in Blood 12.0-16.0 [facility] INR in Platelet poor plasma by Coagulation assayon 09-07-2024 INR Coag (PPP) [Relative time] INR in Platelet poor plasma by Coagulation assay [facility] Comment on above: DESIRED INR:2.0-3.0 CONDITIONS NOT LISTED BELOW2.5-3.5 FOR PROSTHETIC HEART VALVE REPLACEMENT2.5-3.5 RECURRENT THROMBOSIS Laboratory - Chemistry and C hemistry - challengeon 09-07-2024 Albumin [Mass/Vol] 3.0 g/dL Low 3.4-5.0 [facility] ALP [Catalytic activity/Vol] 207 U/L High 46-116 [facility] ALT [Catalytic activity/Vol] 145 U/L High 14-59 [facility] AST [Catalytic activity/Vol] 191 U/L High 15-37 [facility] Bilirubin [Mass/Vol] 0.7 mg/dL 0.2-1.0 [facility] Calcium [Mass/Vol] 9.1 mg/dL 8.5-10.1 [facility] Chloride [Moles/Vol] 105 mmol/L 98-107 [facility] CO2 [Moles/Vol] 30.1 mmol/L 21.0-32.0 [facility] Creatinine [Mass/Vol] 1.22 mg/dL High 0.55-1.02 [facility] GFR/1.73 sq M.predicted MDRD (S/P/Bld) [Vol rate/Area] 53 mL/min/{1.73_m2} Low >=60 mL/min/1.73m 2 [facility] Glucose [Mass/Vol] 107 mg/dL High 74-106 [facility] Potassium [Moles/Vol] 4.2 mmol/L 3.5-5.1 [facility] Protein [Mass/Vol] 6.5 g/dL 6.4-8.2 [facility] Sodium [Moles/Vol] 142 mmol/L 136-145 [facility] TSH Qn 2.641 m[IU]/L 0.358-3.740 [facility] Urea nitrogen [Mass/Vol] 17.0 mg/dL 7.0-18.0 [facility] Urea nitrogen/Creatinine [Mass ratio] 13.9 mg/mg [facility] Calcium [Mass/Vol] 8.7 mg/dL 8.5-10.1 [facility] Chloride [Moles/Vol] 107 mmol/L 98-107 [facility] CO2 [Moles/Vol] 33.0 mmol/L High 21.0-32.0 [facility] Creatinine [Mass/Vol] 0.68 mg/dL 0.55-1.02 [facility] GFR/1.73 sq M.predicted MDRD (S/P/Bld) [Vol rate/Area] mL/min/{1.73_m2} >=60 mL/min/1.73m 2 [facility] Glucose [Mass/Vol] 86 mg/dL 74-106 [facility] Potassium [Moles/Vol] 3.9 mmol/L 3.5-5.1 [facility] Sodium [Moles/Vol] 146 mmol/L High 136-145 [facility] Urea nitrogen [Mass/Vol] 9.0 mg/dL 7.0-18.0 [facility] Urea nitrogen/Creatinine [Mass ratio] 13.2 mg/mg [facility] Laboratory - Hematology and Cell countson 09-07-2024 Immature granulocytes/100 WBC (Bld) 0.2 % 0.0-0.5 [facility] ESR (Bld) [Velocity] 83 mm/h High <=30 [facility] Immature granulocytes/100 WBC (Bld) 0.2 % 0.0-0.5 [facility] Leukocytes [#/volume] correc wanda for nucleated erythrocytes in Blood by Automated counon 09-07-2024 WBC corrected for nucl RBC Auto (Bld) [#/Vol] Leukocytes [#/volume] corrected for nucleated erythrocytes in Blood by Automated coun 4.0-11.0 [facility] WBC corrected for nucl RBC Auto (Bld) [#/Vol] Leukocytes [#/volume] corrected for nucleated erythrocytes in Blood by Automated coun 4.0-11.0 [facility] Lymphocytes Auto (Bld) [#/Vo l]on 09-07-2024 Lymphocytes (Bld) [#/Vol] Lymphocytes [#/volume] in Blood by Automated count Low 1.2-3.8 [facility] Lymphocytes (Bld) [#/Vol] Lymphocytes [#/volume] in Blood by Automated count Low 1.2-3.8 [facility] Lymphocytes/100 WBC Auto (Bl d)on 09-07-2024 Lymphocytes/100 WBC (Bld) Lymphocytes/100 leukocytes in Blood by Automated count Low 20.5-60.0 [facility] Lymphocytes/100 WBC (Bld) Lymphocytes/100 leukocytes in Blood by Automated count 20.5-60.0 [facility] MCH Auto (RBC) [Entitic mass ]on 09-07-2024 MCH (RBC) [Entitic mass] MCH [Entitic mass] by Automated count 26.7-34.0 [facility] MCH (RBC) [Entitic mass] MCH [Entitic mass] by Automated count 26.7-34.0 [facility] MCHC Auto (RBC) [Mass/Vol]on 09-07-2024 MCHC (RBC) [Mass/Vol] MCHC [Mass/volume] by Automated count 29.9-35.2 [facility] MCHC (RBC) [Mass/Vol] MCHC [Mass/volume] by Automated count 29.9-35.2 [facility] MCV Auto (RBC) [Entitic vol] on 09-07-2024 MCV (RBC) [Entitic vol] MCV [Entitic volume] by Automated count 81.0-99.0 [facility] MCV (RBC) [Entitic vol] MCV [Entitic volume] by Automated count 81.0-99.0 [facility] Monocytes Auto (Bld) [#/Vol] on 09-07-2024 Monocytes (Bld) [#/Vol] Automated blood monocyte count 0.3-0.8 [facility] Monocytes (Bld) [#/Vol] Automated blood monocyte count 0.3-0.8 [facility] Monocytes/100 WBC Auto (Bld) on 09-07-2024 Monocytes/100 WBC (Bld) Automated monocyte % 1.7-12.0 [facility] Monocytes/100 WBC (Bld) Automated monocyte % 1.7-12.0 [facility] Neutrophils Auto (Bld) [#/Vo l]on 09-07-2024 Neutrophils (Bld) [#/Vol] Neutrophils [#/volume] in Blood by Automated count 1.4-6.5 [facility] Neutrophils (Bld) [#/Vol] Neutrophils [#/volume] in Blood by Automated count 1.4-6.5 [facility] Neutrophils/100 WBC Auto (Bl d)on 09-07-2024 Neutrophils/100 WBC (Bld) Automated neutrophil % 43.0-75.0 [facility] Neutrophils/100 WBC (Bld) Automated neutrophil % 43.0-75.0 [facility] No Panel Informationon 09-07 Eosinophils # (Auto) 0.1 10 3/uL 0.0-0.7 [facility] Immature Granulocyte # (Auto) 0.01 10 3/uL 0.00-0.03 [facility] Troponin I High Sensitivity 4.3 pg/mL 4.0-51.3 [facility] Comment on above: CUT-OFF POINTS [...] IN CONJUNCTIONWITH OTHER DIAGNOSTIC AND CLINICAL INFORMATION. C-Reactive Protein, Quantitative 0.79 mg/dL High <=0.50 [facility] Eosinophils # (Auto) 0.2 10 3/uL 0.0-0.7 [facility] Immature Granulocyte # (Auto) 0.01 10 3/uL 0.00-0.03 [facility] Platelet mean volume Auto (B ld) [Entitic vol]on 09-07-2024 Platelet mean volume (Bld) [Entitic vol] Platelet mean volume [Entitic volume] in Blood by Automated count 9.5-13.5 [facility] Platelet mean volume (Bld) [Entitic vol] Platelet mean volume [Entitic volume] in Blood by Automated count 9.5-13.5 [facility] Platelets Auto (Bld) [#/Vol] on 09-07-2024 Platelets (Bld) [#/Vol] Platelets [#/volume] in Blood by Automated count 150-450 [facility] Platelets (Bld) [#/Vol] Platelets [#/volume] in Blood by Automated count 150-450 [facility] Prothrombin time (PT)on 08-11 PT Coag (PPP) [Time] Prothrombin time (PT) 9.0- 11.6 [facility] RBC Auto (Bld) [#/Vol]on RBC (Bld) [#/Vol] Erythrocytes [#/volume] in Blood by Automated count 4.20-5.40 [facility] RBC (Bld) [#/Vol] Erythrocytes [#/volume] in Blood by Automated count 4.20-5.40 [facility] Serum or plasma albumin/glob ulin mass ratioon 09-07-2024 Albumin/Globulin [Mass ratio] Serum or plasma albumin/globulin mass ratio [facility] Serum or plasma anion gap de terminationon 09-07-2024 Anion gap [Moles/Vol] Serum or plasma anion gap determination [facility] Anion gap [Moles/Vol] Serum or plasma anion gap determination [facility] Basophils Auto (Bld) [#/Vol] on 09-06-2024 Basophils (Bld) [#/Vol] Automated basophil count 0.0-0.1 [facility] Basophils/100 WBC Auto (Bld) on 09-06-2024 Basophils/100 WBC (Bld) Automated basophil % 0.2-2.0 [facility] Buprenorphine [Presence] in Urineon 09-06-2024 Buprenorphine Ql (U) Buprenorphine [Presence] in Urine NEGATIVE [facility] Comment on above: DRUG CLASS TEST SYST EM CUT-OFF CONCENTRATIONS ARE ASFOLLOWS:AMP (Amphetamine): 500 ng/mLBAR (Barbiturates): 200 ng/mLBZO (Benzodiazepines): 150 ng/mLBUP (Buprenorphine): 10 ng/mLCOC (Cocaine): 150 ng/mLmAMP (Methamphetamine): 500 ng/mLMTD (Methadone): 200 ng/mLOPI (Opiates): 100 ng/mLOXY (Oxycodone): 100 ng/mLPCP (Phencyclidine): 25 ng/mLTHC (Cannabinoids): 50 ng/mLTCA (Trycyclic Antidepressants): 300 ng/mL Eosinophils/100 WBC Auto (Bl d)on 09-06-2024 Eosinophils/100 WBC (Bld) Automated eosinophil % 0.9-7.0 [facility] Erythrocyte distribution wid th Auto (RBC) [Ratio]on 09-06-2024 Erythrocyte distribution width (RBC) [Ratio] Erythrocyte distribution width [Ratio] by Automated count 11.0-15.0 [facility] Estimated glomerular filtrat ion rate (GFR) non- Americanon 09-06-2024 GFR/1.73 sq M.predicted among non-blacks MDRD (S/P/Bld) [Vol rate/Area] Estimated glomerular filtration rate (GFR) non- >=60 mL/min/1.73m 2 [facility] Globulin Calc (S) [Mass/Vol] on 09-06-2024 Globulin (S) [Mass/Vol] Serum globulin measurement by calculation (mass/volume) [facility] Hematocrit Auto (Bld) [Volum e fraction]on 09-06-2024 Hematocrit (Bld) [Volume fraction] Hematocrit [Volume Fraction] of Blood by Automated count 36.0-48.0 [facility] Hemoglobin [Mass/volume] in Bloodon 09-06-2024 Hemoglobin (Bld) [Mass/Vol] Hemoglobin [Mass/volume] in Blood 12.0-16.0 [facility] Laboratory - Chemistry and C hemistry - challengeon 09-06-2024 Albumin [Mass/Vol] 3.0 g/dL Low 3.4-5.0 [facility] ALP [Catalytic activity/Vol] 105 U/L 46-116 [facility] ALT [Catalytic activity/Vol] 27 U/L 14-59 [facility] AST [Catalytic activity/Vol] 40 U/L High 15-37 [facility] Bilirubin [Mass/Vol] 0.7 mg/dL 0.2-1.0 [facility] Calcium [Mass/Vol] 9.4 mg/dL 8.5-10.1 [facility] Chloride [Moles/Vol] 108 mmol/L High 98-107 [facility] CK [Catalytic activity/Vol] 37 U/L 26-192 [facility] CO2 [Moles/Vol] 28.1 mmol/L 21.0-32.0 [facility] Creatinine [Mass/Vol] 0.72 mg/dL 0.55-1.02 [facility] GFR/1.73 sq M.predicted MDRD (S/P/Bld) [Vol rate/Area] mL/min/{1.73_m2} >=60 mL/min/1.73m 2 [facility] Glucose [Mass/Vol] 96 mg/dL 74-106 [facility] Magnesium [Mass/Vol] 2.0 mg/dL 1.8-2.4 [facility] Potassium [Moles/Vol] 4.2 mmol/L 3.5-5.1 [facility] Protein [Mass/Vol] 6.7 g/dL 6.4-8.2 [facility] Sodium [Moles/Vol] 145 mmol/L 136-145 [facility] Urea nitrogen [Mass/Vol] 8.0 mg/dL 7.0-18.0 [facility] Urea nitrogen/Creatinine [Mass ratio] 11.1 mg/mg [facility] Bilirubin Ql (U) Negative NEGATIVE [facility] Glucose (U) [Mass/Vol] Negative NEGATIVE [facility] Ketones Ql (U) 15 mg/dL Abnormal NEGATIVE [facility] pH (U) 6.0 [pH] 5.0-9.0 [facility] Specific gravity (U) [Rel density] >=1.030 Abnormal 1.005-1.025 [facility] Urobilinogen Qn (U) 4.0 {Susan'U}/dL Abnormal 0.2-1.0 [facility] Laboratory - Drug toxicology on 09-06-2024 Amphetamines Ql (U) Negative NEGATIVE [facility] Benzodiazepines Ql (U) Positive Abnormal NEGATIVE [facility] Cocaine Ql (U) Negative NEGATIVE [facility] Opiates Ql (U) Negative NEGATIVE [facility] Phencyclidine Ql (U) Negative NEGATIVE [facility] Laboratory - Hematology and Cell countson 09-06-2024 Immature granulocytes/100 WBC (Bld) 0.2 % 0.0-0.5 [facility] Laboratory - Specimen inform ationon 09-06-2024 Appearance (U) CLOUDY Abnormal CLEAR [facility] Color (U) DK YELLOW YELLOW [facility] Laboratory - Urinalysison Leukocyte esterase Test strip Ql (U) SMALL Abnormal NEGATIVE [facility] Mucus Ql (Urine sed) NONE SEEN NONE SEEN [facility] Nitrite Ql (U) Positive Abnormal NEGATIVE [facility] Protein Ql (U) Negative NEG/TRACE [facility] Leukocytes [#/volume] correc wanda for nucleated erythrocytes in Blood by Automated counon 09-06-2024 WBC corrected for nucl RBC Auto (Bld) [#/Vol] Leukocytes [#/volume] corrected for nucleated erythrocytes in Blood by Automated coun 4.0-11.0 [facility] Lymphocytes Auto (Bld) [#/Vo l]on 09-06-2024 Lymphocytes (Bld) [#/Vol] Lymphocytes [#/volume] in Blood by Automated count 1.2-3.8 [facility] Lymphocytes/100 WBC Auto (Bl d)on 09-06-2024 Lymphocytes/100 WBC (Bld) Lymphocytes/100 leukocytes in Blood by Automated count 20.5-60.0 [facility] MCH Auto (RBC) [Entitic mass ]on 09-06-2024 MCH (RBC) [Entitic mass] MCH [Entitic mass] by Automated count 26.7-34.0 [facility] MCHC Auto (RBC) [Mass/Vol]on 09-06-2024 MCHC (RBC) [Mass/Vol] MCHC [Mass/volume] by Automated count 29.9-35.2 [facility] MCV Auto (RBC) [Entitic vol] on 09-06-2024 MCV (RBC) [Entitic vol] MCV [Entitic volume] by Automated count 81.0-99.0 [facility] Methadone [Presence] in Urin e by Screen methodon 09-06-2024 Methadone Screen Ql (U) Methadone [Presence] in Urine by Screen method NEGATIVE [facility] Monocytes Auto (Bld) [#/Vol] on 09-06-2024 Monocytes (Bld) [#/Vol] Automated blood monocyte count 0.3-0.8 [facility] Monocytes/100 WBC Auto (Bld) on 09-06-2024 Monocytes/100 WBC (Bld) Automated monocyte % 1.7-12.0 [facility] Neutrophils Auto (Bld) [#/Vo l]on 09-06-2024 Neutrophils (Bld) [#/Vol] Neutrophils [#/volume] in Blood by Automated count 1.4-6.5 [facility] Neutrophils/100 WBC Auto (Bl d)on 09-06-2024 Neutrophils/100 WBC (Bld) Automated neutrophil % 43.0-75.0 [facility] No Panel Informationon 09-06 Urine Barbiturates Screen Negative NEGATIVE [facility] Urine Marijuana (THC) Screen Negative NEGATIVE [facility] Urine Methamphetamines Screen Negative NEGATIVE [facility] Eosinophils # (Auto) 0.2 10 3/uL 0.0-0.7 [facility] Immature Granulocyte # (Auto) 0.01 10 3/uL 0.00-0.03 [facility] Miscellaneous Test Comment See comment [facility] Comment on above: Specimen Source: UCC - Urine,Clean Catch - Urine CC - 200.100 Urine Bacteria LARGE #/HPF Abnormal NONE SEEN [facility] Urine Culture Reflexed YES [facility] Urine Culture Result 1 \R\ Urine Culture, Routine\R\ Organism: Gram negative eusebia : [facility] Urine Microscopic Review YES [facility] Urine Occult Blood Negative NEGATIVE [facility] Urine Other Casts NONE SEEN #/LPF NONE SEEN [facility] Urine Other Crystals None Seen #/HPF None Seen [facility] Urine RBC NONE SEEN #/HPF 0-2 [facility] Urine Squamous Epithelial Cells FEW #/LPF Abnormal NONE/RARE [facility] Urine WBC 10-20 #/HPF Abnormal NONE SEEN [facility] Platelet mean volume Auto (B ld) [Entitic vol]on 09-06-2024 Platelet mean volume (Bld) [Entitic vol] Platelet mean volume [Entitic volume] in Blood by Automated count 9.5-13.5 [facility] Platelets Auto (Bld) [#/Vol] on 09-06-2024 Platelets (Bld) [#/Vol] Platelets [#/volume] in Blood by Automated count 150-450 [facility] RBC Auto (Bld) [#/Vol]on RBC (Bld) [#/Vol] Erythrocytes [#/volume] in Blood by Automated count 4.20-5.40 [facility] Serum or plasma albumin/glob ulin mass ratioon 09-06-2024 Albumin/Globulin [Mass ratio] Serum or plasma albumin/globulin mass ratio [facility] Serum or plasma anion gap de terminationon 09-06-2024 Anion gap [Moles/Vol] Serum or plasma anion gap determination [facility] Urine tricyclic antidepressa nt measurementon 09-06-2024 Tricyclic antidepressants (U) [Mass/Vol] Urine tricyclic antidepressant measurement NEGATIVE [facility] oxyCODONE+oxyMORphone [Prese nce] in Urine by Screen methodon 09-06-2024 oxyCODONE+oxyMORphon e Screen Ql (U) oxyCODONE+oxyMORphone [Presence] in Urine by Screen method Abnormal NEGATIVE [facility] Activated partial thrombopla stin time (aPTT) in platelet poor plasma by coagulation aon 01-14-2024 aPTT Coag (PPP) [Time] 23.5 s 22.3-36.2 [facility] Basophils Auto (Bld) [#/Vol] on 01-14-2024 Basophils (Bld) [#/Vol] 0.1 10 3/uL 0.0-0.1 [facility] Basophils/100 WBC Auto (Bld) on 01-14-2024 Basophils/100 WBC (Bld) 0.5 % 0.2-2.0 [facility] Eosinophils/100 WBC Auto (Bl d)on 01-14-2024 Eosinophils/100 WBC (Bld) 1.3 % 0.9-7.0 [facility] Erythrocyte distribution wid th Auto (RBC) [Ratio]on 01-14-2024 Erythrocyte distribution width (RBC) [Ratio] 13.6 % 11.0-15.0 [facility] Estimated glomerular filtrat ion rate (GFR) non- Americanon 01-14-2024 GFR/1.73 sq M.predicted among non-blacks MDRD (S/P/Bld) [Vol rate/Area] mL/min/{1.73_m2} >=60 [facility] Fibrin D-dimer [Presence] in Platelet poor plasma by Latex agglutinationon 01-14-2024 Fibrin D-dimer LA Ql (PPP) 0.78 mg/L FEU <=0.59 [facility] Comment on above: RESULTS CALLED [...] on 01-14-2024 Globulin (S) [Mass/Vol] 3.9 g/dL [facility] Hematocrit Auto (Bld) [Volum e fraction]on 01-14-2024 Hematocrit (Bld) [Volume fraction] 44.4 % 36.0-48.0 [facility] Hemoglobin [Mass/volume] in Bloodon 01-14-2024 Hemoglobin (Bld) [Mass/Vol] 14.1 g/dL 12.0-16.0 [facility] INR in Platelet poor plasma by Coagulation assayon 01-14-2024 INR Coag (PPP) [Relative time] {INR} [facility] Comment on above: DESIRED INR:2.0-3.0 CONDITIONS NOT LISTED BELOW2.5-3.5 FOR PROSTHETIC HEART VALVE REPLACEMENT2.5-3.5 RECURRENT THROMBOSIS Laboratory - Chemistry and C hemistry - challengeon 01-14-2024 Albumin [Mass/Vol] 2.9 g/dL 3.4-5.0 [facility] ALP [Catalytic activity/Vol] 126 U/L 46-116 [facility] ALT [Catalytic activity/Vol] 36 U/L 14-59 [facility] AST [Catalytic activity/Vol] 24 U/L 15-37 [facility] Bilirubin [Mass/Vol] 0.4 mg/dL 0.2-1.0 [facility] Calcium [Mass/Vol] 8.7 mg/dL 8.5-10.1 [facility] Chloride [Moles/Vol] 109 mmol/L 98-107 [facility] CO2 [Moles/Vol] 30.5 mmol/L 21.0-32.0 [facility] Creatinine [Mass/Vol] 0.77 mg/dL 0.55-1.02 [facility] GFR/1.73 sq M.predicted MDRD (S/P/Bld) [Vol rate/Area] mL/min/{1.73_m2} >=60 [facility] Glucose [Mass/Vol] 108 mg/dL 74-106 [facility] Natriuretic peptide B (Bld) [Mass/Vol] 210.0 pg/mL <=900.0 [facility] Potassium [Moles/Vol] 4.0 mmol/L 3.5-5.1 [facility] Protein [Mass/Vol] 6.8 g/dL 6.4-8.2 [facility] Sodium [Moles/Vol] 141 mmol/L 136-145 [facility] Urea nitrogen [Mass/Vol] 10.0 mg/dL 7.0-18.0 [facility] Urea nitrogen/Creatinine [Mass ratio] 13.0 mg/mg [facility] Laboratory - Hematology and Cell countson 01-14-2024 Immature granulocytes/100 WBC (Bld) 0.3 % 0.0-0.5 [facility] Laboratory - Microbiology an d Antimicrobial susceptibilityon 01-14-2024 SARS-CoV-2 (COVID-19) RNA DAVID+probe Ql (Unsp spec) Negative NEGATIVE [facility] Comment on above: This test [...] Auto (Bld) [#/Vol] 9.2 10 3/uL 4.0-11.0 [facility] Lymphocytes Auto (Bld) [#/Vo l]on 01-14-2024 Lymphocytes (Bld) [#/Vol] 1.9 10 3/uL 1.2-3.8 [facility] Lymphocytes/100 WBC Auto (Bl d)on 01-14-2024 Lymphocytes/100 WBC (Bld) 20.3 % 20.5-60.0 [facility] MCH Auto (RBC) [Entitic mass ]on 01-14-2024 MCH (RBC) [Entitic mass] 28.4 pg 26.7-34.0 [facility] MCHC Auto (RBC) [Mass/Vol]on 01-14-2024 MCHC (RBC) [Mass/Vol] 31.8 g/dL 29.9-35.2 [facility] MCV Auto (RBC) [Entitic vol] on 01-14-2024 MCV (RBC) [Entitic vol] 89.5 fL 81.0-99.0 [facility] Monocytes Auto (Bld) [#/Vol] on 01-14-2024 Monocytes (Bld) [#/Vol] 0.8 10 3/uL 0.3-0.8 [facility] Monocytes/100 WBC Auto (Bld) on 01-14-2024 Monocytes/100 WBC (Bld) 8.5 % 1.7-12.0 [facility] Neutrophils Auto (Bld) [#/Vo l]on 01-14-2024 Neutrophils (Bld) [#/Vol] 6.3 10 3/uL 1.4-6.5 [facility] Neutrophils/100 WBC Auto (Bl d)on 01-14-2024 Neutrophils/100 WBC (Bld) 69.1 % 43.0-75.0 [facility] No Panel Informationon 01-13 Troponin I High Sensitivity 6.8 pg/mL 4.0-51.3 [facility] Comment on above: CUT-OFF POINTS [...] INFORMATION. Bedside Influenza Type A Antigen Negative [facility] Comment on above: Negative for Flu A p rotein antigen. Infection due to Flu Acannot be ruled out. Flu A antigen in the sample may bebelow the detection limit of the test. Bedside Influenza Type B Antigen Negative [facility] Comment on above: Negative for Flu B p rotein antigen. Infection due to Flu Bcannot be ruled out. Flu B antigen in the sample may bebelow the detection limit of the test. Eosinophils # (Auto) 0.1 10 3/uL 0.0-0.7 [facility] Immature Granulocyte # (Auto) 0.03 10 3/uL 0.00-0.03 [facility] Platelet mean volume Auto (B ld) [Entitic vol]on 01-14-2024 Platelet mean volume (Bld) [Entitic vol] 9.4 fL 9.5-13.5 [facility] Platelets Auto (Bld) [#/Vol] on 01-14-2024 Platelets (Bld) [#/Vol] 238 10 3/uL 150-450 [facility] Prothrombin time (PT)on PT Coag (PPP) [Time] 9.3 s 9.0-11.6 [facility] RBC Auto (Bld) [#/Vol]on RBC (Bld) [#/Vol] 4.96 10 6/uL 4.20-5.40 [facility] Serum or plasma albumin/glob ulin mass ratioon 01-14-2024 Albumin/Globulin [Mass ratio] 0.7 {ratio} [facility] Serum or plasma anion gap de terminationon 01-14-2024 Anion gap [Moles/Vol] 5.5 mmol/L [facility] Basophils Auto (Bld) [#/Vol] on 12-30-2023 Basophils (Bld) [#/Vol] 0.1 10 3/uL 0.0-0.1 [facility] Basophils/100 WBC Auto (Bld) on 12-30-2023 Basophils/100 WBC (Bld) 0.6 % 0.2-2.0 [facility] Cholesterol in LDL Calc [Mas s/Vol]on 12-30-2023 Cholesterol in LDL [Mass/Vol] 149.0 mg/dL [facility] Comment on above: <100 mg/dl [id number] 0-129 mg/dl NEAR OR ABOVE [id number] mg/dl BORDERLINE [id number] mg/dl HIGH>190 mg/dl VERY HIGH Cholesterol in VLDL Calc [Ma ss/Vol]on 12-30-2023 Cholesterol in VLDL [Mass/Vol] 18.6 mg/dL [facility] Eosinophils/100 WBC Auto (Bl d)on 12-30-2023 Eosinophils/100 WBC (Bld) 1.8 % 0.9-7.0 [facility] Erythrocyte distribution wid th Auto (RBC) [Ratio]on 12-30-2023 Erythrocyte distribution width (RBC) [Ratio] 13.2 % 11.0-15.0 [facility] Estimated glomerular filtrat ion rate (GFR) non- Americanon 12-30-2023 GFR/1.73 sq M.predicted among non-blacks MDRD (S/P/Bld) [Vol rate/Area] mL/min/{1.73_m2} >=60 [facility] Globulin Calc (S) [Mass/Vol] on 12-30-2023 Globulin (S) [Mass/Vol] 3.8 g/dL [facility] Hematocrit Auto (Bld) [Volum e fraction]on 12-30-2023 Hematocrit (Bld) [Volume fraction] 46.8 % 36.0-48.0 [facility] Hemoglobin [Mass/volume] in Bloodon 12-30-2023 Hemoglobin (Bld) [Mass/Vol] 14.7 g/dL 12.0-16.0 [facility] Laboratory - Chemistry and C hemistry - challengeon 12-30-2023 Albumin [Mass/Vol] 3.0 g/dL 3.4-5.0 [facility] ALP [Catalytic activity/Vol] 88 U/L 46-116 [facility] ALT [Catalytic activity/Vol] 23 U/L 14-59 [facility] AST [Catalytic activity/Vol] 20 U/L 15-37 [facility] Bilirubin [Mass/Vol] 0.5 mg/dL 0.2-1.0 [facility] Calcium [Mass/Vol] 9.2 mg/dL 8.5-10.1 [facility] Chloride [Moles/Vol] 107 mmol/L 98-107 [facility] Cholesterol [Mass/Vol] 224 mg/dL <=200 [facility] Cholesterol in HDL [Mass/Vol] 57 mg/dL 40-60 [facility] Comment on above: > or =60 mg/dl - LOW CARDIOVASCULAR RISK<40 mg/dl - HIGH CARDIOVASCULAR RISK CO2 [Moles/Vol] 31.1 mmol/L 21.0-32.0 [facility] Creatinine [Mass/Vol] 0.72 mg/dL 0.55-1.02 [facility] GFR/1.73 sq M.predicted MDRD (S/P/Bld) [Vol rate/Area] mL/min/{1.73_m2} >=60 [facility] Glucose [Mass/Vol] 100 mg/dL 74-106 [facility] Potassium [Moles/Vol] 4.5 mmol/L 3.5-5.1 [facility] Protein [Mass/Vol] 6.8 g/dL 6.4-8.2 [facility] Sodium [Moles/Vol] 145 mmol/L 136-145 [facility] Triglyceride [Mass/Vol] 93 mg/dL <=150 [facility] TSH Qn 2.655 m[IU]/L 0.358-3.740 [facility] Urea nitrogen [Mass/Vol] 9.0 mg/dL 7.0-18.0 [facility] Urea nitrogen/Creatinine [Mass ratio] 12.5 mg/mg [facility] Laboratory - Hematology and Cell countson 12-30-2023 Immature granulocytes/100 WBC (Bld) 0.2 % 0.0-0.5 [facility] Leukocytes [#/volume] correc wanda for nucleated erythrocytes in Blood by Automated counon 12-30-2023 WBC corrected for nucl RBC Auto (Bld) [#/Vol] 8.7 10 3/uL 4.0-11.0 [facility] Lymphocytes Auto (Bld) [#/Vo l]on 12-30-2023 Lymphocytes (Bld) [#/Vol] 1.8 10 3/uL 1.2-3.8 [facility] Lymphocytes/100 WBC Auto (Bl d)on 12-30-2023 Lymphocytes/100 WBC (Bld) 20.4 % 20.5-60.0 [facility] MCH Auto (RBC) [Entitic mass ]on 12-30-2023 MCH (RBC) [Entitic mass] 28.6 pg 26.7-34.0 [facility] MCHC Auto (RBC) [Mass/Vol]on 12-30-2023 MCHC (RBC) [Mass/Vol] 31.4 g/dL 29.9-35.2 [facility] MCV Auto (RBC) [Entitic vol] on 12-30-2023 MCV (RBC) [Entitic vol] 91.1 fL 81.0-99.0 [facility] Monocytes Auto (Bld) [#/Vol] on 12-30-2023 Monocytes (Bld) [#/Vol] 0.7 10 3/uL 0.3-0.8 [facility] Monocytes/100 WBC Auto (Bld) on 12-30-2023 Monocytes/100 WBC (Bld) 7.5 % 1.7-12.0 [facility] Neutrophils Auto (Bld) [#/Vo l]on 12-30-2023 Neutrophils (Bld) [#/Vol] 6.0 10 3/uL 1.4-6.5 [facility] Neutrophils/100 WBC Auto (Bl d)on 12-30-2023 Neutrophils/100 WBC (Bld) 69.5 % 43.0-75.0 [facility] No Panel Informationon 12-30 Eosinophils # (Auto) 0.2 10 3/uL 0.0-0.7 [facility] Immature Granulocyte # (Auto) 0.02 10 3/uL 0.00-0.03 [facility] Platelet mean volume Auto (B ld) [Entitic vol]on 12-30-2023 Platelet mean volume (Bld) [Entitic vol] 9.3 fL 9.5-13.5 [facility] Platelets Auto (Bld) [#/Vol] on 12-30-2023 Platelets (Bld) [#/Vol] 199 10 3/uL 150-450 [facility] RBC Auto (Bld) [#/Vol]on RBC (Bld) [#/Vol] 5.14 10 6/uL 4.20-5.40 [facility] Serum or plasma albumin/glob ulin mass ratioon 12-30-2023 Albumin/Globulin [Mass ratio] 0.8 {ratio} [facility] Serum or plasma anion gap de terminationon 12-30-2023 Anion gap [Moles/Vol] 11.4 mmol/L [facility] Serum or plasma total choles terol/high density lipoprotein (HDL) cholesterol mass la 12-30-2023 Cholesterol.total/Ch olesterol in HDL [Mass ratio] 3.9 {ratio} [facility] Comment on above: 3.3 - 4.4 LOW RISK4. 4 - 7.1 AVERAGE RISK7.1 - 11.0 MODERATE RISK>11.0 HIGH RISK XR hip LT min 2V(w/wo pelvis )*on 01-08-2023 XR hip LT min 2V(w/wo pelvis)* [facility] Other XR hip LT min 2V(w/wo pelvis)* [facility] Other XR hip LT min 2V(w/wo pelvis)* [address] H.BLOOM Other XR hip LT min 2V(w/wo pelvis)* [place] [address] [employer] Other XR hip LT min 2V(w/wo pelvis)* XRay Report [facility].BLOOM Other XR hip LT min 2V(w/wo pelvis)* Signed [facility] Other XR hip LT min 2V(w/wo pelvis)* Patient: Adriana Dinero I MR#: [id number] [facility] Other XR hip LT min 2V(w/wo pelvis)* 056 H.BLOOM Other XR hip LT min 2V(w/wo pelvis)* : 1955 Acct:[id number] [facility] Other XR hip LT min 2V(w/wo pelvis)* Age/Sex: 67 / F ADM Date: 01/08/23 H.BLOOM Other XR hip LT min 2V(w/wo pelvis)* Loc: [facility] Room: Type: [facility] H.BLOOM Other XR hip LT min 2V(w/wo pelvis)* Attending Dr: Samuel Chatman II, MD H.BLOOM Other XR hip LT min 2V(w/wo pelvis)* Copies to: Samuel Chatman MD [facility].BLOOM Other XR hip LT min 2V(w/wo pelvis)* Ordering Provider: Samuel Chatman MD [facility] Other XR hip LT min 2V(w/wo pelvis)* Date of Service: 01/08/23 H.BLOOM Other XR hip LT min 2V(w/wo pelvis)* XR/XR hip LT min 2V(w/wo pelvis)*: Left hip pain H.BLOOM Other XR hip LT min 2V(w/wo pelvis)* LEFT HIP - 2 views: H.BLOOM Other XR hip LT min 2V(w/wo pelvis)* CLINICAL HISTORY: Left hip pain for months. [facility].BLOOM Other XR hip LT min 2V(w/wo pelvis)* COMPARISON: Hip series 11/22/2022 [facility].BLOOM Other XR hip LT min 2V(w/wo pelvis)* FINDINGS: Mild degenerative changes of both hips without acute bony process. [facility].BLOOM Other XR hip LT min 2V(w/wo pelvis)* XR/XR hip LT min 2V(w/wo pelvis)* H.BLOOM Other XR hip LT min 2V(w/wo pelvis)* IMPRESSION: H.BLOOM Other XR hip LT min 2V(w/wo pelvis)* MILD DEGENERATIVE CHANGES OF BOTH HIPS WITHOUT ACUTE BONY PROCESS.. 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 ASSESSMENT AND PLAN: 1. Supraventricular tachycardia, on [...] follow-up will be scheduled Iban Lu MD, [facility] Surgical History Problems History of Back surgery [...] Recorded: 09Dec2022 01:25PM Heart Rate78, L Radial Jngjkwnl405, LUE, Sitting Botkbyptv98, LUE, Sitting Height5 ft 6 in Wtfdjm371 lb BMI Ygpnvukgdf09.03 kg/m2 BSA Calculated2.19 Tobacco Useb) No PHQ-2 [...] Dec 09 2022 2:09PM EST (Author) Normal [employer] Tobacco Screening.on 023 Fall risk assessment b) One or more fall s in the last year -[facility] [place] [address] DO Work Phone: Tobacco use status CP b) No [facility] [address] DO Work Phone: Tobacco Screening. Yes [facility] 250 DO Work Phone: CREATININEon 10-04-2022 Creatinine [Mass/Vol] 0.75 mg/dL Normal 0.55-1.02 [facility] Comment on above: Performed By: #### C CARLOS #### [facility] [address] [place], [place] [address] Dr. Henrietta Zavala EGFR-AF GUATEMALAN >60 Normal >=60 [facility] Comment on above: Performed By: #### C CARLOS #### [facility] [address] [place], [place] [address] Dr. Henrietta Zavala EGFR-NON AF GUATEMALAN >60 Normal >=60 [facility] Comment on above: Performed By: #### C CARLOS #### [facility] [address] [place], [place] [address] Dr. Henrietta Zavala MRI LSPINE WO W [...] Date: 2022-10-04 11:19 Normal [facility]on 07-11 SARS-CoV-2 (COVID-19) RNA DAVID+probe Ql (Unsp spec) Not detected Normal NOT DETECTED [facility] Comment on above: Result Comment: This test is not yet approved or cleared by the [place] FDA. When there are no FDA-approved or cleared tests available, and other criteria are met, FDA can make tests available under an emergency access mechanism called an Emergency Use Authorization (EUA). The EUA for this test is supported by the [place] of Health and Human Service's (HHS's) declaration [...] with SARS-CoV-2. Performed By: #### [facility] #### [facility] [address] [place] [address] [address] Henrietta Zavala XR HIPS JI [id number] [...] Date: 2022-04-15 07:00 Normal [facility] XR TSPINE 3 VIEWSon 04-15-20 [...] Date: 2022-04-15 07:03 Normal [facility] CBC AUTO DIFFon 04-12-2022 BASO # 0.1 103/ul Normal 0.0-0.1 [facility] Comment on above: Performed By: #### C BC #### [facility] [address] [place] [address] Dr. Henrietta Zavala Basophils/100 WBC (Bld) 0.4 % Normal 0.2-2.0 [facility] Comment on above: Performed By: #### C BC #### [facility] [address] [place] [address] Dr. Henrietta Zavala EO # 0.1 103/ul Normal 0.0-0.7 [facility] Comment on above: Performed By: #### C BC #### [facility] [address] [place] [address] Dr. Henrietta Zavala Eosinophils/100 WBC (Bld) 0.4 % Critically low 0.9-7.0 [facility] Comment on above: Performed By: #### C BC #### [facility] [address] [place] [address] Dr. Henrietta Zavala Erythrocyte distribution width (RBC) [Ratio] 14.1 % Normal 11.0-15.0 [facility] Comment on above: Performed By: #### C BC #### [facility] [address] [place] [address] Dr. Henrietta Zavala Hematocrit (Bld) [Volume fraction] 44.9 % Normal 36.0-48.0 [facility] Comment on above: Performed By: #### C BC #### [facility] [address] [place] [address] [address] Henrietta Zavala Hemoglobin (Bld) [Mass/Vol] 14.2 g/dL Normal 12.0-16.0 [facility] Comment on above: Performed By: #### C BC #### [facility] [address] [place] [address] Dr. Henrietta Zavala IG # 0.06 10e3/ul Critically high 0.00-0.03 [facility] Comment on above: Performed By: #### C BC #### [facility] [address] [place] [address] Dr. Henrietta Zavala IG % 0.5 % Normal 0.0-0.5 [facility] Comment on above: Performed By: #### C BC #### [facility] [address] [place] [address] Dr. Henrietta Zaavla LYMPH # 2.2 103/ul Normal 1.2-3.8 [facility] Comment on above: Performed By: #### C BC #### [facility] [address] [place] [address] Dr. Henrietta Zavala Lymphocytes/100 WBC (Bld) 19.4 % Critically low 20.5-60.0 [facility] Comment on above: Performed By: #### C BC #### [facility] [address] [place] [address] Dr. Henrietta Zavala MANUAL DIFF REQ NO Normal [facility] Comment on above: Performed By: #### C BC #### [facility] [address] [place] [address] Dr. Henrietta Zavala MCH (RBC) [Entitic mass] 27.5 pg Normal 26.7-34.0 [facility] Comment on above: Performed By: #### C BC #### [facility] [address] [place] [address] [address] Henrietta Zavala MCHC (RBC) [Mass/Vol] 31.6 g/dL Normal 29.9-35.2 [facility] Comment on above: Performed By: #### C BC #### [facility] [place] [facility] [address] [place] [address] Dr. Henrietta Zavala MCV (RBC) [Entitic vol] 86.8 fL Normal 81.0-99.0 [facility] Comment on above: Performed By: #### C BC #### [facility] [address] [place] [address] Dr. Henrietta Zavala MONO # 0.9 103/ul Critically high 0.3-0.8 The [facility] Comment on above: Performed By: #### C BC #### [facility] [address] [place] [address] Dr. Henrietta Zavala Monocytes/100 WBC (Bld) 7.9 % Normal 1.7-12.0 [facility] Comment on above: Performed By: #### C BC #### [facility] [address] [place] [address] Dr. Henrietta Zavala NEUT # 8.1 103/ul Critically high 1.4-6.5 [facility] Comment on above: Performed By: #### C BC #### [facility] [address] [place] [address] Dr. Henrietta Zavala Neutrophils/100 WBC (Bld) 71.4 % Normal 43.0-75.0 [facility] Comment on above: Performed By: #### C BC #### [facility] [address] [place], [place] [id number] Dr. Henrietta Zavala Platelet mean volume (Bld) [Entitic vol] 9.7 fL Normal 9.5-13.5 [facility] Comment on above: Performed By: #### C BC #### [facility] [address] [place] [address] Dr. Henrietta Zavala PLT 284 103/ul Normal 150-450 [facility] Comment on above: Performed By: #### C BC #### [facility] [address] [place], [place] [address] Dr. Henrietta Zavala RBC 5.17 106/ul Normal 4.20-5.40 [facility] Comment on above: Performed By: #### C BC #### [facility] [address] [address] [address] Henrietta Zavala WBC 11.3 103/ul Critically high 4.0-11.0 [facility] Comment on above: Performed By: #### C BC #### [facility] [address] [address] [address] Henrietta Zavala LIPID PROFILEon 04-12-2022 CHOL-HDL RATIO NORM SEE BELOW Normal [facility] Comment on above: Result Comment: 3.3 - 4.4 LOW RISK 4.4 - 7.1 AVERAGE RISK 7.1 - 11.0 MODERATE RISK >11.0 HIGH RISK Performed By: #### C MP, LIPID #### [facility] [address] [place] [address] Dr. Henrietta Zavala Cholesterol [Mass/Vol] 235 mg/dL Critically high <=200 [facility] Comment on above: Performed By: #### C MP, LIPID #### [facility] [address] [address] [address] Henrietta Zavala Cholesterol in HDL [Mass/Vol] 47 mg/dL Normal 40-60 [facility] Comment on above: Performed By: #### C MP, LIPID #### [facility] [address] [address] [address] Henrietta Zavala Cholesterol in LDL [Mass/Vol] 160.8 mg/dL Normal [facility] Comment on above: Performed By: #### C MP, LIPID #### [facility] [address] [place] [address] Dr. Henrietta Zavala Cholesterol.total/Ch olesterol in HDL [Mass ratio] 5.0 {ratio} Normal [facility] Comment on above: Performed By: #### C MP, LIPID #### [facility] [address] [address] [address] Henrietta Zavala HDL NORMAL > or = 60 mg/dl - LO W CARDIOVASCULAR RISK <40 mg/dl - HIGH CARDIOVASCULAR RISK Normal [facility] Comment on above: Performed By: #### C MP, LIPID #### [facility] [address] [address] [address] Henrietta Zavala LDL CALC NORMAL SEE BELOW Normal [facility] Comment on above: Result Comment: <100 mg/dl OPTIMAL 100 - 129 mg/dl NEAR OR ABOVE OPTIMAL 130 - 159 mg/dl BORDERLINE HIGH 160 - 189 mg/dl HIGH >190 mg/dl VERY HIGH Performed By: #### C MP, LIPID #### [facility] [address] [place] [address] Dr. Henrietta Zavala Triglyceride [Mass/Vol] 136 mg/dL Normal <=150 [facility] Comment on above: Performed By: #### C MP, LIPID #### [facility] [address] [place] [address] Dr. Henrietta Zavala VLDL CALC 27.2 mg/dL Normal [facility] Comment on above: Performed By: #### C MP, LIPID #### [facility] [address] [place] [address] Dr. Henrietta Zavala PROF 14(COMP METB)on 022 Albumin [Mass/Vol] 3.2 g/dL Critically low 3.4-5.0 Th [facility] Comment on above: Performed By: #### C MP, LIPID #### [facility] [address] [place] [address] Dr. Henrietta Zavala Albumin/Globulin [Mass ratio] 0.8 {ratio} Normal [facility] Comment on above: Performed By: #### C MP, LIPID #### [facility] [address] [place] [address] Dr. Henrietta Zavala ALP [Catalytic activity/Vol] 127 U/L Critically high 46-116 [facility] Comment on above: Performed By: #### C MP, LIPID #### [facility] [address] [place] [address] Dr. Henrietta Zavala ALT [Catalytic activity/Vol] 55 U/L Normal 14-59 [facility] Comment on above: Performed By: #### C MP, LIPID #### [facility] [address] [place], [place] [address] Dr. Henrietta Zavala Anion gap [Moles/Vol] 13.6 mmol/L Normal [facility] Comment on above: Performed By: #### C MP, LIPID #### [facility] [address] [place] [address] Dr. Henrietta Zavala AST [Catalytic activity/Vol] 24 U/L Normal 15-37 [facility] Comment on above: Performed By: #### C MP, LIPID #### [facility] [address] [place] [address] Dr. Henrietta Zavala Bilirubin [Mass/Vol] 0.3 mg/dL Normal 0.2-1.0 [facility] Comment on above: Performed By: #### C MP, LIPID #### [facility] [address] [place] [address] Dr. Henrietta Zavala Calcium [Mass/Vol] 8.8 mg/dL Normal 8.5-10.1 [facility] Comment on above: Performed By: #### C MP, LIPID #### [facility] [address] [place] [address] Dr. Henrietta Zavala Chloride [Moles/Vol] 107 mmol/L Normal 98-107 [facility] Comment on above: Performed By: #### C MP, LIPID #### [facility] [address] [place] [address] Dr. Henrietta Zavala CO2 [Moles/Vol] 25.6 mmol/L Normal 21.0-32.0 [facility] Comment on above: Performed By: #### C MP, LIPID #### [facility] [address] [place] [address] Dr. Henrietta Zavala Creatinine [Mass/Vol] 0.77 mg/dL Normal 0.55-1.02 [facility] Comment on above: Performed By: #### C MP, LIPID #### [facility] [address] [place] [address] Dr. Henrietta Zavala EGFR-AF GUATEMALAN >60 Normal >=60 [facility] Comment on above: Performed By: #### C MP, LIPID #### [facility] [address] [place] [address] Dr. Henrietta Zavala EGFR-NON AF GUATEMALAN >60 Normal >=60 [facility] Comment on above: Performed By: #### C MP, LIPID #### [facility] [address] [place] [address] Dr. Henrietta Zavala Globulin (S) [Mass/Vol] 3.8 g/dL Normal [facility] Comment on above: Performed By: #### C MP, LIPID #### [facility] [address] [place] [address] Dr. Henrietta Zavala Glucose [Mass/Vol] 90 mg/dL Normal 74-106 [facility] Comment on above: Performed By: #### C MP, LIPID #### [facility] [address] [place] [address] Dr. Henrietta Zavala Potassium [Moles/Vol] 4.2 mmol/L Normal 3.5-5.1 [facility] Comment on above: Performed By: #### C MP, LIPID #### [facility] [address] [place] [address] Dr. Henrietta Zavala Protein [Mass/Vol] 7.0 g/dL Normal 6.4-8.2 [facility] Comment on above: Performed By: #### C MP, LIPID #### [facility] [address] [place] [address] Dr. Henrietta Zavala Sodium [Moles/Vol] 142 mmol/L Normal 136-145 [facility] Comment on above: Performed By: #### C MP, LIPID #### [facility] [address] [place] [address] Dr. Henrietta Zavala Urea nitrogen [Mass/Vol] 13.0 mg/dL Normal 7.0-18.0 [facility] Comment on above: Performed By: #### C MP, LIPID #### [facility] [address] [place] [address] Dr. Henrietta Zavala Urea nitrogen/Creatinine [Mass ratio] 16.9 mg/mg Normal [facility] Comment on above: Performed By: #### C MP, LIPID #### [facility] [address] [place] [address] Dr. Henrietta Zavala Tobacco Screening.on 021 Fall risk assessment a) No falls within the last year -[facility] DO Work Phone: Tobacco use status CP b) No -[facility] 250 DO Work Phone: KNEE LEFT 3 VWSon 03-30-2021 KNEE LEFT 3 [facility] Department of Radiology [address] [place] [phone] ======== Patient Name: ADRIANA RICHARD : 1955 Sex: F Age: Race: White Pt. Location: Patient Status: Ordered Date: 03/30/2021 9:00:00 AM Completed Date: 03/30/2021 09:07 AM Requesting Provider: RAMANDEEP PATEL Attending Provider: Report Copy To: Signs & Symptoms: M25.562 Pain in left knee I10 History: Deb Comments: , , , Ordering Provider - RAMANDEEP PATEL MD , Exam: KNEE LEFT 3 [facility] ======== KNEE LEFT 3 S 03/30/2021 9:07 [...] findings. Electronically signed: Jesse Lazaro. Transcribed by: [email or web address], User Resident: Electronically Signed by: JESSE LAZARO @ 03/30/2021 11:00 AM Normal [facility] Comment on above: Order Comment: , , = ========= , Ordering Provider - RAMANDEEP PATEL MD , KNEE RIGHT 3 [facility] KNEE RIGHT 3 [facility] Department of Radiology [address] [place] [phone] ======== Patient Name: ADRIANA RICHARD : 1955 Sex: F Age: Race: White Pt. Location: 84 Patient Status: O Ordered Date: 03/30/2021 9:05:00 AM Completed Date: 03/30/2021 09:07 AM Requesting Provider: RAMANDEEP PATEL Attending Provider: RAMANDEEP PATEL Report Copy To: Signs & Symptoms: M25.569 Pain in unspecified knee I10 History: Deb Comments: Evaluate Exam: KNEE RIGHT 3 [facility] ======== CLINICAL INFORMATION: Chronic right knee pain. [...] reports Electronically signed: Jesse Lazaro. Transcribed by: [email or web address], User Resident: SHALA EATON Electronically Signed by: JESSE LAZARO @ 03/30/2021 03:52 PM I personally read this/these film(s) with this resident Normal [facility] Comment on above: Order Comment: Evalu ate MRI LUMBAR SP W & WO CONTRAS Ton 10-11-2020 MRI LUMBAR SP W & WO CONTRAST STUDY: MRI LUMBAR SP W WO CONTRAST; 10/11/2020 11:35 am INDICATION: POST LAMINECTOMY SYNDROME. COMPARISON: None. ACCESSION NUMBER(S): [id number] ORDERING CLINICIAN: Denis Donohue TECHNIQUE: The lumbar [...] osteomyelitis. * THIS EXAMINATION WAS INTERPRET[facility] [place] [facility] Normal [facility] LUMB SP COMP W FLEX/EXT 6 VW Son 09-12-2020 LUMB SP COMP W FLEX/EXT 6 VWS STUDY: LUMB SP COMP W FLEX/EXT 6 VWS ; ; 09/12/2020 8:45 am INDICATION: PAIN. COMPARISON: None. ACCESSION NUMBER(S): [id number] ORDERING CLINICIAN: Denis Donohue FINDINGS: Status post [...] L5-S1 level. Normal [facility] PROGRESSon 11-04-2019 PROGRESS HNO ID: [id number] Author: Bridger Ma Service: ? Author Type: Physician Type: Progress Notes Filed: 11/04/2019 5:12 PM Note Text: Bridger Ma MD Department of Orthopaedics Orthopaedics [address] [place] [address] Dept: [phone] October 05, 2019 CHIEF COMPLAINT: New Patient [...] electronic medical record. Caitlyn Cantu, PAC [address] [id number] Toby Quintana MD [address] [facility] [phone] This note was partially generated using [employer] voice recognition system, and there may be some incorrect words, spellings, and punctuation that were not noted in checking the note before saving. 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 Patient had an x-ray done at [facility] on 11/02/18 and a MRI on 11/30/18. Patient hand carried copies of the reports and films on a CD. with patient today. Referred by Caitlyn Cantu. Taking [place] and Naproxen for the pain and does not help. Using a walker today and as needed at home. Bridger Ma MD 11/04/2019 5:12 PM Signed Bridger Ma MD Department of Orthopaedics Orthopaedics [address] [address] Dept: [phone] October 05, 2019 CHIEF COMPLAINT: New Patient [...] PHYSICIAN: Ms. Adriana Dinero [facility] by the following physician. This consultation note will be sent to the following physician by either mail or electronic medical record. Caitlyn Cantu, LIZZY 0 [facility] [address] Toby Quintana MD [address] [place] [phone] This note was partially generated using [employer] voice recognition system, and there may be some incorrect words, spellings, and punctuation that were not noted in checking the note before saving. Bridger Ma MD Referring Provider: CAITLYN CANTU [[id number]] Allergies As of Date: 10/05/2019 Noted Allergy [...] mg injection (CELESTONE)Disp: Rfl: [facility] [[id number]] Order #: [id number]: 1 Large Joint Arthro/Inj: R knee joint [HHV274] Order #: [id number] betamethasone acetate-betamethasone sodium phosphate 6 mg injection [...] Status:Closed by BRIDGER MA MD on 11/04/19 [facility] PROGRESSon 10-05-2019 PROGRESS HNO ID: [id number] Author: Eleanor Talbot Ma Service: ? 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 Patient had an x-ray done at [facility] on 11/02/18 and a MRI on 11/30/18. Patient hand carried copies of the reports and films on a CD. with patient today. Referred by Caitlyn Cantu. Taking [place] and Naproxen for the pain and does not help. Using a walker today and as needed at home. [facility] CREATININEon 08-26-2019 Creatinine [Mass/Vol] 0.80 mg/dL Normal 0.50 - 1.05 [facility] Comment on above: Performed By: #### C REAT #### [address] [address] Creatinine [Mass/Vol] mg/dL Normal >60 [facility] Comment on above: Performed By: #### C REAT #### [address] [address] Result Comment: CALC ULATIONS OF ESTIMATED GFR ARE PERFORMED USING THE MDRD STUDY EQUATION FOR THE IDMS-TRACEABLE CREATININE METHODS. CLIN CHEM 2007;53:766-72 ELECTROLYTE PANELon 08-26-20 19 Anion gap [Moles/Vol] 14 mmol/L Normal 10 - 20 [facility] Comment on above: Performed By: #### E LECT #### [address] [address] Chloride [Moles/Vol] 104 mmol/L Normal 98 - 107 [facility] Comment on above: Performed By: #### E LECT #### [address] [address] HCO3 (Bld) [Moles/Vol] 29 mmol/L Normal 21 - 32 [facility] Comment on above: Performed By: #### E LECT #### [address] [address] Potassium [Moles/Vol] 4.6 mmol/L Normal 3.5 - 5.3 [facility] Comment on above: Performed By: #### E LECT #### [address] [address] Sodium [Moles/Vol] 142 mmol/L Normal 136 - 145 [facility] Comment on above: Performed By: #### E LECT #### [address] [address] UREA NITROGENon 08-26-2019 Urea nitrogen [Mass/Vol] 14 mg/dL Normal 6 - 23 [facility] Comment on above: Performed By: #### U CARLOS #### [address] [address] [facility] CARDIAC STRESS/REST INJE CTIONon 08-25-2019 [facility] CARDIAC STRESS/REST INJECTION Patient Name: ADRIANA DINERO STUDY: MYOCARDIAL PERFUSION STRESS TEST WITH LEXISCAN Performing facility: [facility], [address] [place] [address], [address], [place] [address] [facility] Provider: GURU LU PCP: Dr. Poli QUINTANA Supervising provider: Poli VILLAFANA INDICATION: DYSPNEA EDEMA HISTORY: Gender: F; Age: 64 y/o ; Height: 170.18 cm; Weight: 127.952814 kg. SOB High Cholesterol; Family HX CAD; PALPITATIONS COMPARISON: ACCESSION NUMBER(S): [id number] ORDERING CLINICIAN: IBAN LU TECHNIQUE: TWO DAY [...] Electronically signed by: IBAN LU MD Normal [facility] OT-MRI KNEE RT WO CON IMPORT on 07-27-2019 OT-MRI KNEE RT WO CON IMPORT Images were obtained outside of [facility] [id number] Normal [facility] CNOVon 07-07-2019 CNOV Office Visit (SPNMED ) ADRIANA DINERO ([id number]) 1955 F Date Time Provider Department 07/07/19 9:40 AM CAITLYN CANTU SPALICE During your visit today, we recorded the following information about you: Pulse Blood pressure Weight Height 80/minute 126/55 124.1 kg 1.676 m LIZZY Graham 07/07/2019 1:08 PM Signed BEVERLEY Lopez [facility] [address] [place] [address] 07/07/2019 Assessment Diagnosis: Encounter Diagnosis ICD-10-CM 1. [...] told for multiple years that she has vkty-wf-yppw arthritis in the right knee and this [...] record for those providers who practice within [facility] or with access to [employer] via MD Connect, or via letter. - [...] past--performed in [address] Jones in [place]. The procedure was a spinal laminectomy and fusion L2-4, and subsequent revision L2-5 lami/fusion with posterior hardware and interbody cages. 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 Author Type: Physician Ophthalmologist Type: Progress Notes Filed: 07/07/2019 1:08 PM Note Text: [facility]nu [facility] [address] [address] 07/07/2019 Assessment Diagnosis: Encounter Diagnosis ICD-10-CM 1. [...] told for multiple years that she has alfe-ik-yzdm arthritis in the right knee and this [...] record for those providers who practice within [facility] or with access to [employer] via MD Connect, or via letter. SUBJECTIVE: [...] past--performed in [address] Jones in [place]. The procedure was a spinal laminectomy and fusion L2-4, and subsequent revision L2-5 lami/fusion with posterior hardware and interbody cages. 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 IMAGING STUDIES: See above Normal [facility] CT-CT cervical spine w con I MPORTon 04-08-2019 CT-CT cervical spine w con IMPORT Images were obtained outside of [facility] [id number] Normal [facility] CT-CT cervical spine w con IMPORT Images were obtained outside of [facility] [id number] Normal [facility] CT-CT cervical spine w con IMPORT Images were obtained outside of [facility] [id number] Normal [facility] CT-CT lumbar spine w con IMP Edi 04-08-2019 CT-CT lumbar spine w con IMPORT Images were obtained outside of [facility] [id number] Normal [facility] CT-CT lumbar spine w con IMPORT Images were obtained outside of [facility] [id number] Normal [facility] CT-CT lumbar spine w con IMPORT Images were obtained outside of [facility] [id number] Normal [facility] OT-IR myelogram spine total IMPORTon 04-08-2019 OT-IR myelogram spine total IMPORT Images were obtained outside of [facility] [id number] Normal [facility] OT-IR myelogram spine total IMPORT Images were obtained outside of [facility] [id number] Normal [facility] OT-IR myelogram spine total IMPORT Images were obtained outside of [facility] [id number] Normal [facility] OT-MRI C-SPINE WO CON IMPORT on 02-25-2019 OT-MRI C-SPINE WO CON IMPORT Images were obtained outside of [facility] [id number] Normal [facility] OT-XR KNEE RT 4V OR > IMPORT on 11-30-2018 OT-XR KNEE RT 4V OR > IMPORT Images were obtained outside of [facility] [id number] Normal [facility] Vital Signs Date Time Vital Sign Value Performing Clinician Facility 01-03-2025 11:55-0500 Blood Pressure Location SHANTA SANDHU [facility] 01-03-2025 11:55-0500 Diastolic blood pressure 83 mm[Hg] SHANTA SANDHU [facility] 01-03-2025 11:55-0500 Heart rate 68 /min SHANTA PHOEBE [facility] 01-03-2025 11:55-0500 Respiratory rate 18 /min SHANTA PHOEBE [facility] 01-03-2025 11:55-0500 Systolic blood pressure 117 mm[Hg] SHANTA PHOEBE [facility] 12-17-2024 10:58-0500 Blood Pressure Location SHANTA PHOEBE [facility] 12-17-2024 10:58-0500 Diastolic blood pressure 80 mm[Hg] SHANTA PHOEBE [facility] 12-17-2024 10:58-0500 Heart rate 63 /min SHANTA PHOEBE [facility] 12-17-2024 10:58-0500 Respiratory rate 18 /min SHANTA PHOEBE [facility] 12-17-2024 10:58-0500 Systolic blood pressure 125 mm[Hg] SHANTA PHOEBE [facility] 12-07-2024 10:49-0500 Body height 165.1 cm PHYSICIAN NO [facility] 12-07-2024 10:49-0500 Body mass index (BMI) [Ratio] 36.6 kg/m2 PHYSICIAN NO [facility] 12-07-2024 10:49-0500 Body temperature 97.3 [degF] PHYSICIAN NO [facility] 12-07-2024 10:49-0500 Body weight 99.79 kg PHYSICIAN NO [facility] 12-07-2024 10:49-0500 Diastolic blood pressure 77 mm[Hg] PHYSICIAN NO [facility] 12-07-2024 10:49-0500 Heart rate 70 /min PHYSICIAN [place] [facility] 12-07-2024 10:49-0500 SaO2% (BldA) [Mass fraction] 97 % PHYSICIAN NO [facility] 12-07-2024 10:49-0500 Systolic blood pressure 113 mm[Hg] PHYSICIAN NO [facility] 08-12-2024 09:23-0400 Body height 165.1 cm [facility] 08-12-2024 09:23-0400 Body mass index (BMI) [Ratio] 39.2 kg/m2 [facility] 08-12-2024 09:23-0400 Body weight 106.76 kg [facility] 08-12-2024 09:23-0400 Diastolic blood pressure 72 mm[Hg] [facility] 08-12-2024 09:23-0400 Heart rate 75 /min [facility] 08-12-2024 09:23-0400 Respiratory rate 16 /min [facility] 08-12-2024 09:23-0400 SaO2% (BldA) [Mass fraction] 96 % [facility] 08-12-2024 09:23-0400 Systolic blood pressure 128 mm[Hg] [facility] 06-10-2024 10:23-0400 Diastolic blood pressure 86 mm[Hg] Chetna Cordero MD Work Phone: [facility] 06-10-2024 10:23-0400 Systolic blood pressure 122 mm[Hg] Chetna Cordero MD Work Phone: [facility] 06-10-2024 10:20-0400 Body height 170.2 cm Chetna Cordero MD Work Phone: [facility] 06-10-2024 10:20-0400 Body mass index (BMI) [Ratio] 34.46 kg/m2 Chetna Cordero MD Work Phone: [facility] 06-10-2024 10:20-0400 Body weight 99.79 kg Chetna Cordero MD Work Phone: [facility] 06-10-2024 10:20-0400 Heart rate 74 /min Chetna Cordero MD Work Phone: [facility] 06-10-2024 10:20-0400 SaO2% (BldA) [Mass fraction] 98 % Chetna Cordero MD Work Phone: [facility] 04-30-2024 09:12-0400 Body height 165.1 cm [facility] 04-30-2024 09:12-0400 Body mass index (BMI) [Ratio] 39.6 kg/m2 [facility] 04-30-2024 09:12-0400 Body weight 107.95 kg [facility] 04-30-2024 09:12-0400 Diastolic blood pressure 74 mm[Hg] [facility] 04-30-2024 09:12-0400 Heart rate 75 /min [facility] 04-30-2024 09:12-0400 Systolic blood pressure 109 mm[Hg] [facility] 03-22-2024 13:18-0400 Body height 165.1 cm [facility] 03-22-2024 13:18-0400 Body mass index (BMI) [Ratio] 39.7 kg/m2 [facility] 03-22-2024 13:18-0400 Body weight 108.4 kg [facility] 03-22-2024 13:18-0400 Diastolic blood pressure 77 mm[Hg] [facility] 03-22-2024 13:18-0400 Heart rate 75 /min [facility] 03-22-2024 13:18-0400 Systolic blood pressure 127 mm[Hg] [facility] 02-10-2024 13:04-0400 Body height 167.64 cm [facility] 02-10-2024 13:04-0400 Body mass index (BMI) [Ratio] 38.5 kg/m2 [facility] 02-10-2024 13:04-0400 Body weight 108.4 kg [facility] 02-10-2024 13:04-0400 Diastolic blood pressure 73 mm[Hg] [facility] 02-10-2024 13:04-0400 Heart rate 85 /min [facility] 02-10-2024 13:04-0400 Systolic blood pressure 105 mm[Hg] [facility] 01-19-2024 08:44-0400 Body height 167.64 cm [facility] 12-30-2023 09:55-0500 Body height 167.64 cm [facility] 12-30-2023 09:55-0500 Body mass index (BMI) [Ratio] 38.9 kg/m2 [facility] 12-30-2023 09:55-0500 Body weight 109.31 kg [facility] 12-30-2023 09:55-0500 Diastolic blood pressure 76 mm[Hg] [facility] 12-30-2023 09:55-0500 Heart rate 69 /min [facility] 12-30-2023 09:55-0500 Systolic blood pressure 120 mm[Hg] [facility] 12-09-2023 10:32-0500 Diastolic blood pressure 80 mm[Hg] Iban Lu MD Work Phone: [facility] 12-09-2023 10:32-0500 Systolic blood pressure 130 mm[Hg] Iban Lu MD Work Phone: [facility] 12-09-2023 09:46-0500 Body height 167.6 cm Iban Lu MD Work Phone: [facility] 12-09-2023 09:46-0500 Body mass index (BMI) [Ratio] 39.06 kg/m2 Iban Lu MD Work Phone: [facility] 12-09-2023 09:46-0500 Body weight 109.77 kg Iban Lu MD Work Phone: [facility] 12-09-2023 09:46-0500 Heart rate 68 /min Iban Lu MD Work Phone: [facility] 08-20-2023 09:00-0400 Body height 167.64 cm Toby Quintana Other [facility] Other 08-20-2023 09:00-0400 Body mass index (BMI) [Ratio] 38.38 kg/m2 Toby Quintana Other [facility] Other 08-20-2023 09:00-0400 Body weight 107.87 kg Toby Quintana Other [facility] Other 08-20-2023 09:00-0400 Diastolic blood pressure 75 mm[Hg] Toby Quintana Other [facility] Other 08-20-2023 09:00-0400 Systolic blood pressure 108 mm[Hg] Toby Quintana Other [facility] Other 04-24-2023 11:15-0400 Body height 167.64 cm Toby Quintana Other [facility] Other 04-24-2023 11:15-0400 Body mass index (BMI) [Ratio] 38.73 kg/m2 Toby Quintana Other [facility] Other 04-24-2023 11:15-0400 Body weight 108.86 kg Toby Quintana Other [facility] Other 04-24-2023 11:15-0400 Diastolic blood pressure 79 mm[Hg] Toby Quintana Other [facility] Other 04-24-2023 11:15-0400 Systolic blood pressure 114 mm[Hg] Toby Quintana Other [facility] Other 02-07-2023 09:30-0400 Body height 167.64 cm Toby Quintana Other [facility] Other 02-07-2023 09:30-0400 Body mass index (BMI) [Ratio] 39.99 kg/m2 Toby Quintana Other [facility] Other 02-07-2023 09:30-0400 Body weight 112.4 kg Toby Quintana Other [facility] Other 02-07-2023 09:30-0400 Diastolic blood pressure 68 mm[Hg] Toby Quintana Other [facility] Other 02-07-2023 09:30-0400 Respiratory rate 18 /min Toby Quintana Other [facility] Other 02-07-2023 09:30-0400 SaO2% (BldA) [Mass fraction] 93 % Toby Quintana Other [facility] Other 02-07-2023 09:30-0400 Systolic blood pressure 142 mm[Hg] Toby Quintana Other [facility] Other 01-08-2023 10:00-0500 Body height 167.64 cm Samuel Las Piedras II Other [facility] Other 01-08-2023 10:00-0500 Body mass index (BMI) [Ratio] 40.19 kg/m2 Samuel Las Piedras II Other [facility] Other 01-08-2023 10:00-0500 Body weight 112.95 kg Samuel Compa II Other [facility] Other 12-09-2022 13:25-0500 Body height 167.64 cm Toby Quintana Work Phone: [facility] [address] DO Work Phone: 12-09-2022 13:25-0500 Body mass index (BMI) [Ratio] 40.03 kg/m2 Toby Quintana Work Phone: [facility] [facility] DO Work Phone: 12-09-2022 13:25-0500 Body surface area Derived from formula 2.19 m2 Toby Quintana Work Phone: [facility] [facility] DO Work Phone: 12-09-2022 13:25-0500 Body weight 112.49 kg Toby Quintana Work Phone: [facility] [facility] DO Work Phone: 12-09-2022 13:25-0500 Diastolic blood pressure 80 mm[Hg] Toby Quintana Work Phone: [facility] [facility] DO Work Phone: 12-09-2022 13:25-0500 Heart rate 78 /min Toby Quintana Work Phone: [facility] [address] DO Work Phone: 12-09-2022 13:25-0500 Systolic blood pressure 118 mm[Hg] Toby Quintana Work Phone: [facility] [address] DO Work Phone: 11-22-2022 09:00-0500 Body height 167.64 cm Leeann Blades Other [facility] Other 11-22-2022 09:00-0500 Body mass index (BMI) [Ratio] 39.54 kg/m2 Leeann Blades Other [facility] Other 11-22-2022 09:00-0500 Body weight 111.13 kg Leeann Blades Other [facility] Other 09-04-2021 13:27-0400 Body height 170.18 cm Toby Quintana Work Phone: [facility] [address] DO Work Phone: 09-04-2021 13:27-0400 Body mass index (BMI) [Ratio] 39.78 kg/m2 Toby Quintana Work Phone: [facility] DO Work Phone: 09-04-2021 13:27-0400 Body surface area Derived from formula 2.24 m2 Toby Quintana Work Phone: [facility] [facility] DO Work Phone: 09-04-2021 13:27-0400 Body weight 115.21 kg Toby Quintana Work Phone: [facility] [facility] DO Work Phone: 09-04-2021 13:27-0400 Diastolic blood pressure 78 mm[Hg] Toby Quintana Work Phone: [facility] [facility] DO Work Phone: 09-04-2021 13:27-0400 Heart rate 80 /min Toby Quintana Work Phone: [facility] DO Work Phone: 09-04-2021 13:27-0400 Systolic blood pressure 104 mm[Hg] Toby Quintana Work Phone: [facility] DO Work Phone: Encounters Encounter Date Encounter Type Care Provider Facility Start: 01-03-2025 End: 01-03-2025 ambulatory SHANTA SANDHU Facility:[facility] Start: 01-03-2025 End: 01-03-2025 Patient encounter procedure SHANTA SANDHU [facility] Start: 12-28-2024 End: 12-28-2024 Lab Drop off SHANTA SANDHU [facility] Start: 12-28-2024 End: 12-28-2024 ambulatory SHANTA Kanwal SANDHU Facility[facility] Start: 12-28-2024 End: 12-28-2024 Patient encounter procedure [facility] Start: 12-17-2024 End: 12-17-2024 ambulatory TOBY QUINTANA [facility] Start: 12-17-2024 End: 12-17-2024 Patient encounter procedure SHANTA SANDHU [facility] Start: 12-15-2024 ambulatory SHANTA PHOEBE Facility :[facility] Start: 12-13-2024 End: 12-13-2024 ambulatory PHYSICIAN NO [facility] Work Phone: Start: 12-13-2024 End: 12-13-2024 Patient encounter procedure PHYSICIAN NO [facility] Work Phone: Start: 12-13-2024 End: 12-13-2024 ambulatory PHYSICIAN NO [facility] Work Phone: Start: 12-13-2024 End: 12-13-2024 Departed Referred PHYSICIAN NO [facility] [place] Work Phone: Start: 12-07-2024 End: 12-07-2024 ambulatory PHYSICIAN NO [facility] Work Phone: Start: 12-07-2024 End: 12-07-2024 Patient encounter procedure PHYSICIAN NO [facility] Work Phone: Start: 12-01-2024 End: 12-01-2024 ambulatory Toby Quintana [facility] Work Phone: Start: 12-01-2024 End: 12-01-2024 Departed Referred Toby Quintana MD Work Phone: [facility] [place] Work Phone: Start: 11-30-2024 End: 11-30-2024 ambulatory [facility] Work Phone: Start: 11-30-2024 End: 11-30-2024 Patient encounter procedure [facility] Work Phone: Start: 10-11-2024 End: 10-11-2024 Non-patient / Non-visit [facility] Work [facility]: Start: 09-17-2024 Non-patient / Non-visit [facility] Work Phone: Start: 09-11-2024 Non-patient / Non-visit [facility] Work Phone: Start: 09-10-2024 Non-patient / Non-visit [facility] Work Phone: Start: 09-09-2024 Non-patient / Non-visit [facility] Work Phone: Start: 09-07-2024 Non-patient / Non-visit [facility] Work Phone: Start: 09-07-2024 Non-patient / Non-visit [facility] Work Phone: Start: 09-07-2024 Non-patient / Non-visit [facility] Work Phone: Start: 09-06-2024 Non-patient / Non-visit [facility] Work Phone: Start: 08-12-2024 End: 08-12-2024 ambulatory [facility] Work Phone: Start: 08-12-2024 End: 08-12-2024 Patient encounter procedure [facility] Phys[facility] Work Phone: Start: 06-16-2024 End: 06-17-2024 Telephone encounter Franklin Norman MD Work Phone: [facility] Start: 06-10-2024 End: 06-10-2024 Office outpatient new 30 minutes Chetna Cordero MD Work Phone: [facility] Comment on above: Bilateral leg edema (Primary Dx); PVD (peripheral vascular disease) ([facility]); Lower extremity pain, bilateral Start: 05-18-2024 End: 05-18-2024 Telephone encounter Fernanda Bassett CMA [facility] Start: 04-30-2024 End: 04-30-2024 ambulatory [facility] Work Phone: Start: 04-30-2024 End: 04-30-2024 Patient encounter procedure [facility] Work Phone: Start: 03-22-2024 End: 03-22-2024 ambulatory [facility] Work Phone: Start: 03-22-2024 End: 03-22-2024 Patient encounter procedure [facility] Physician [facility] Work Phone: Start: 02-10-2024 End: 02-10-2024 ambulatory [facility] Work Phone: Start: 02-10-2024 End: 02-10-2024 Patient encounter procedure [facility] Physician [facility] Work Phone: Start: 01-19-2024 End: 01-19-2024 Patient encounter procedure [facility] Physician [facility] Work Phone: Start: 01-14-2024 Non-patient / Non-visit [facility] Physician [facility] Work Phone: Start: 01-05-2024 Non-patient / Non-visit [facility] Phys[facility] Work Phone: Start: 12-30-2023 Patient encounter procedure [facility] Start: 12-30-2023 End: 12-30-2023 ambulatory [facility] Work Phone: Start: 12-30-2023 End: 12-30-2023 Patient encounter procedure [facility] Physician [facility] Work Phone: Start: 12-19-2023 End: 12-19-2023 ambulatory Toby Quintana Other [facility] Other Start: 12-19-2023 Telephone encounter Toby Quintana [facility] Start: 12-17-2023 End: 12-17-2023 ambulatory Toby Quintana Other [facility] Other Start: 12-17-2023 Telephone encounter Toby Quintana [facility] Start: 12-16-2023 (Televisit) Televisit Toby Quintana [facility] Start: 12-16-2023 End: 12-16-2023 ambulatory Toby Quintana Other [facility] Other Start: 12-09-2023 End: 12-09-2023 Office outpatient visit 25 minutes Iban Lu MD Work Phone: [facility] Comment on above: Supraventricular tac hycardia by ECG (Primary Dx); Mixed hyperlipidemia; Palpitations; Class II obesity Start: 12-09-2023 End: 12-09-[address] Start: 12-08-2023 End: 12-08-2023 ambulatory Toby Quintana Other [facility] Other Start: 12-08-2023 Telephone encounter Toby Quintana [facility] Start: 11-04-2023 End: 11-04-2023 ambulatory Toby Mariano Other [facility] Other Start: 11-04-2023 Telephone encounter Toby Mariano [facility] Start: 10-21-2023 (Televisit) Televisit Toby Quintana [facility] Start: 10-21-2023 End: 10-21-2023 ambulatory Toby Quintana Other [facility] Other Start: 10-21-2023 End: 10-21-2023 Patient encounter procedure [facility] Work Phone: Start: 10-20-2023 End: 10-20-2023 ambulatory Toby Quintana Other [facility] Other Start: 10-20-2023 Telephone encounter Toby Mariano [facility] Start: 09-25-2023 (Televisit) Televisit Toby Quintana [facility] Start: 09-25-2023 End: 09-25-2023 ambulatory Toby Mariano Other [facility] Other Start: 09-22-2023 (Televisit) Televisit Toby Quintana [facility] Start: 09-22-2023 End: 09-22-2023 ambulatory Toby Mariano Other [facility] Other Start: 09-22-2023 Telephone encounter Toby Mariano [facility] Start: 08-20-2023 End: 08-20-2023 ambulatory Toby Mariano Other [facility] Other Start: 08-20-2023 Patient encounter procedure Toby Mariano [facility] Start: 05-22-2023 Telephone encounter Toby eugene Work Phone: [facility] [address] DO Work Phone: Start: 05-12-2023 End: 05-12-2023 ambulatory Toby Quintana Other [facility] Other Start: 05-12-2023 Telephone encounter Toby Quintana [facility] Start: 04-24-2023 End: 04-24-2023 ambulatory Toby Mariano Other [facility] Other Start: 04-24-2023 Office outpatient vi sit 15 minutes Toby Quintana [facility] Start: 04-11-2023 End: 04-11-2023 ambulatory Toby Mariano Other [facility] Other Start: 04-11-2023 Telephone encounter Toby Quintana [facility] Start: 03-13-2023 End: 03-13-[address] EVIN BYERS Facility:UNKNOWN Start: 03-13-[address] Toby Quintana Facility:[id number] Start: 02-07-2023 End: 02-07-2023 ambulatory Toby Quintana Other [facility] Other Start: 02-07-2023 Patient encounter procedure Toby Quintana [facility] Start: 02-03-2023 End: 02-03-2023 ambulatory Leeann Mariano Other [facility] Other Start: 02-03-2023 Telephone encounter Leeann Quintana [facility] [employer] [facility] Start: 01-27-2023 End: 01-27-2023 ambulatory Leeann Leons Other [facility] Other Start: 01-27-2023 Telephone encounter Leeann Quintana [facility] Start: 01-21-[address] TOBY QUINTANA [facility] ity:H1 Start: 01-16-2023 End: 01-16-2023 ambulatory Samuel Chatman II Other [facility] Other Start: 01-16-2023 Telephone encounter Samuel Chatman II [facility] Start: 01-08-2023 [facility] visit new patient Samuel tyler II [facility] Start: 01-08-2023 End: 01-08-2023 ambulatory MD Toby Quintana Work Phone: [facility] Work Phone: Start: 01-08-2023 End: 01-08-2023 Patient encounter procedure MD Toby Quintana Work Phone: [facility] Start: 01-02-2023 End: 01-02-2023 ambulatory Toby Quintana Other [facility] Other Start: 01-02-2023 Telephone encounter Leeann Blades [facility] Start: 12-30-2022 End: 12-30-2022 ambulatory Leeann Blades Other [facility] Other Start: 12-30-2022 Telephone encounter Leeann Blades [facility] Start: 12-26-2022 End: 12-26-2022 ambulatory Leeann Blades Other [facility] Other Start: 12-26-2022 Telephone encounter Leeann Blades [facility] Start: 12-19-2022 End: 12-19-2022 ambulatory Leeann Blades Other [facility] Other Start: 12-19-2022 Telephone encounter Leeann Blades [facility] Start: 12-17-2022 End: 12-17-2022 ambulatory Toby Quintana Other [facility] Other Start: 12-17-2022 Telephone encounter Toby Quintana [facility] Start: 12-10-2022 End: 12-10-2022 ambulatory Toby Quintana Other [facility] Other Start: 12-10-2022 Telephone encounter Toby Quintana [facility] Start: 12-09-2022 Office outpatient vi sit 25 minutes Toby Quintana Work Phone: [facility] [address] DO Work Phone: Start: 12-09-[address] Iban Lu Facility: Start: 11-25-2022 End: 11-25-2022 ambulatory Leeann Mariano Other [facility] [employer] Other Start: 11-25-2022 Telephone encounter Leeann Mariano [facility] Start: 11-22-2022 Office outpatient ne w 45 minutes Leeann Blades [facility] Start: 11-22-2022 End: 11-22-2022 ambulatory MD Toby Quintana Work Phone: [facility] Work Phone: Start: 11-22-2022 End: 11-22-2022 Patient encounter procedure MD Toby Quintana Work Phone: [facility] Work Phone: Start: 11-05-2022 Adult health examination Nannette Quintana Other [facility] [employer] Other Start: 11-05-2022 Pre-procedure evalua tion check Toby Quintana Other [facility] [employer] Other Start: 10-04-2022 End: 10-05-[address] SHALA OMER Facility:[facility] Start: 09-16-2022 Rx Renewal Toby Quintana Work Phone: [facility] [facility] DO Work Phone: Start: 07-24-2022 End: 07-24-[address] TOBY QUINTANA Facility:[facility] Start: 07-22-2022 End: 07-22-[address] LAUREL BRAVO Facility:[facility] Start: 04-18-2022 Encounter for genera l adult medical examination without abnormal findings DR TOBY QUINTANA [facility] Start: 04-13-2022 End: 04-14-[address] TOBY QUINTANA Facility:[facility] Start: 04-12-2022 End: 04-13-[address] TOBY QUINTANA Facility:[facility] Start: 04-12-2022 End: 04-13-2022 Encounter for general adult medical examination without abnormal findings DR TOBY QUINTANA Facility:[facility] Start: 09-04-2021 FUV, Provider: Iban Lu, Status: Pen, Time: 2:00 PM [facility] Quintana [facility] [place] Work Phone: Start: 09-04-2021 Office outpatient vi sit 25 minutes Toby Quintana [facility] Work Phone: Start: 08-30-2021 Rx Renewal Toby Quintana [facility] [place] Work Phone: Procedures Date Procedure Procedure Detail Performing Clinician Start: 12-01-2024 Urine culture Toby desir MD Work Phone: Start: 01-08-2023 Plain X-ray of left hip MD Toby Quintana Work Phone: Start: 11-22-2022 X-ray of lumbar spin e, four views MD Toby Quintana Work Phone: Start: 11-22-2022 Plain x-ray of pelvi s and lower extremity MD Toby Quintana Work Phone: Start: 09-10-2016 Screening mammography Poli Quintana Other Start: 12-01-2013 General examination of patient Toby Quintana Other Cholecystectomy Toby tafoya Work Phone: Excision of rib and open drainage of pleural cavity SHANTA SANDHU Gallbladder structur e (body structure) SHANTA SANDHU Hand surgery care plan CATA SANDHU Hysterectomy Toby Quintana Work Phone: Hysterectomy SHANTA SANDHU Procedure on back Toby Schofield Alec eugene Work Phone: Plan of Treatment Date Care Activity Detail Author Start: 06-10-2025 Adult BMI Screening Adult BMI Screen ing [facility] Start: 06-10-2025 Tobacco Screening Tobacco Screening [facility] Start: 12-13-2024 Bacteria identified in Urine by Culture Urine Culture [facility] Start: 12-13-2024 Patient referral [facility] Work Phone: Start: 12-13-2024 Urine culture [facility] Start: 12-09-2024 End: 12-09-2024 Patient encounter procedure 12/09/2024 9:00 AM EST Office Visit [facility] [address] [place] [id number] Iban Lu MD [address] [place] [address] [facility] Start: 12-01-2024 Bacteria identified in Urine by Culture Urine Culture [facility] Start: 12-01-2024 Urine culture [facility] Start: 09-12-2024 DTaP,Tdap and Td Vaccines (3 - Td or Tdap) DTaP,Tdap and Td Vaccines (3 - Td or Tdap) [facility] Start: 07-11-2024 Influenza vaccination Influenza Vacc ine [facility] Start: 04-30-2024 Patient referral [facility] Work Phone: Start: 03-22-2024 Patient referral [facility] Work Phone: Start: 01-19-2024 Patient referral [facility] Work Phone: Start: 12-09-2023 End: 12-09-2024 Basic metabolic 2000 panel - Serum or Plasma Basic Metabolic Panel Lab Routine Supraventricular tachycardia by ECG Palpitations Expected: 12/09/2023 (Approximate), Expires: 12/09/2024 [facility] Service Area Work Phone: Comment on above: Expected: 12/09/2023 (Approximate), Expires: 12/09/2024 Start: 12-09-2023 FUV, Provider: Iban Lu, Status: Pen, Time: 10:00 AM FUV, Provider: Iban Lu, Status: Pen, Time: 10:00 AM -[facility] [facility] DO Work Phone: Start: 07-11-2023 COVID-19 Vaccine ( season) COVID-19 Vaccine ( season) [facility] Start: 07-11-2023 Influenza vaccination Influenza Vacc ine (#1) [facility] Start: 09-20-2022 FUV, Provider: Iban Lu, Status: Pen, Time: 2:20 PM FUV, Provider: Iban Lu, Status: Pen, Time: 2:20 PM [employer] [place] 250 DO Work Phone: Start: 09-05-2022 FUV, Provider: Iban Lu, Status: Pen, Time: 11:20 AM FUV, Provider: Iban Lu, Status: Pen, Time: 11:20 AM -[facility] [employer] 250 DO Work Phone: Start: 01-19-2021 Fall Risk [facility]ening [facility] Start: 01-19-2006 Zoster Vaccines (1 of 2) Zoster Vacc zbigniew (1 of 2) [facility] Start: 1996 Screening for malign ant neoplasm of breast Mammogram [facility] Start: 01-19-1978 DTaP/Tdap/Td Vaccine s (1 - Tdap) DTaP/Tdap/Td Vaccines (1 - Tdap) [facility] Start: 01-19-1975 Administration of varicella zoster vaccine Zoster (Shingles) Vaccine (1 of 2) [facility] Start: 01-19-1975 DTaP,Tdap and Td Vaccines (1 - Tdap) DTaP,Tdap and Td Vaccines (1 - Tdap) [facility] Start: 01-19-1974 Adult BMI Follow Up Plan Adult BMI F ollow Up Plan [facility] Start: 01-19-1974 Adult BMI Screening Adult BMI Screen ing [facility] Start: 01-19-1974 Hepatitis C screening Hepatitis C Sc reening [facility] Start: 1968 Depression Screening Depression Scre ening [facility] Start: 1968 Tobacco Screening Tobacco Screening [facility] Start: 01-19-1962 Pneumococcal Vaccine : 65+ Years (1 - PCV) Pneumococcal Vaccine: 65+ Years (1 - PCV) [facility] Start: 1956 Lipid panel Lipid Panel [facility] Start: 1955 Medicare Annual Well ness Visit Medicare Annual Wellness Visit (AWV) [facility] Start: 1956 Screening for malign ant neoplasm of colon [facility] Start: 1956 Screening for osteoporosis Bone Density Scan [facility] Comprehensive metabo lic 2000 panel - Serum or Plasma [facility] Patient referral [facility] Work Phone: Urine culture [facility] Urine culture [facility] US Lower extremity v ein - bilateral [facility] Immunizations Immunization Date Immunization Notes Care Provider Fa vern 09-06-2022 Pfizer COVID-19 Vac Bivalent 30 MCG/0.3ML Intramuscular Suspension Toby Quintana Work Phone: [facility] 07-02-2021 Pfizer-BioNTech COVI D-19 Vacc 30 MCG/0.3ML Intramuscular Suspension Toby Quintana Work Phone: [facility] Comment on above: Series: Result Comment: 202407: [id number] 06-11-2021 Pfizer-BioNTech COVI D-19 Vacc 30 MCG/0.3ML Intramuscular Suspension Toby Quintana Work Phone: [facility] Comment on above: Series: Result Comment: 2024: [id number] 09-12-2014 tetanus and diphther ia toxoids, adsorbed, preservative free, for adult use (5 Lf of tetanus toxoid and 2 Lf of diphtheria toxoid) Toby Quintana Other [facility] 09-15-2013 tetanus and diphther ia toxoids, adsorbed, preservative free, for adult use (5 Lf of tetanus toxoid and 2 Lf of diphtheria toxoid) Toby Quintana Other [facility] 09-14-2013 influenza, seasonal, injectable Toby Quintana Work Phone: [facility] 09-14-2013 influenza virus vacc ine, unspecified formulation Iban Lu MD Work Phone: [facility] 08-10-2013 influenza virus vacc ine, unspecified formulation Toby Quintana Work Phone: [employer] 250 DO Work Phone: 07-19-2012 influenza virus vacc ine, unspecified formulation Toby Quintana Work Phone: [employer] 250 DO Work Phone: 11-10-2009 influenza virus vacc ine, unspecified formulation Toby Quintana Work Phone: [employer] 250 DO Work Phone: 08-10-2009 influenza virus vacc ine, unspecified formulation Toby Quintana Work Phone: [employer] 250 DO Work Phone: 07-14-2007 pneumococcal polysaccharide vaccine, 23 valent Toby Quintana Other [facility] Payers Date Payer Category Payer Self-pay [id number] 2023 Medicare A[employer] MEDICARE A ETNA MEDICARE VALUE PLAN [id number] 2023-Present [address] [place] [address] [id number] 2023 Medicare [id number] 2009 Private Health Insurance [employer]EFITS [id number] 2009-Present [phone] [address] [address] [place] [address] [id number] 1959 Unknown [id number] 1959 Unknown [id number] [id number] 1956 Unknown [id number] 2.16.840.1.171650.3.579.2. 593 1956 Unknown [id number] 2.16.840.1.701444.3.579.2. 593 1956 Unknown [id number] 2.16.840.1.380926.3.579.2. 593 1956 Unknown [id number] 2.16.840.1.124973.3.579.2. 593 1956 Unknown [id number] 2.16.840.1.161650.3.579.2. 593 1956 Unknown [id number] 2.16.840.1.269190.3.579.2. 593 1956 Unknown [id number] 2.16.840.1.441935.3.579.2. 693 1956 Unknown [id number] 2.16.840.1.935433.3.579.2. 356 1956 Unknown [id number] 2.16.840.1.413869.3.579.2. 356 1956 Unknown [id number] 2.16.840.1.826348.3.579.2. 1244 1956 Unknown [id number] 2.16.840.1.025950.3.579.2. 727 1956 Unknown [id number] 2.16.840.1.402493.3.579.2. 727 1956 Unknown [id number] 2.16.840.1.856272.3.579.2. 727 1956 Unknown [id number] 2.16.840.1.613523.3.579.2. 727 1956 Unknown [id number] 2.16.840.1.100381.3.579.2. 727 Unknown Unknown HCAP/HFA/FAP Active [id number] Unknown [id number] 2.16.840.1.777973.3.579.2. 531 Unknown [id number] 2.16.840.1.553823.3.579.2. 531 Social History Date Type Detail Facility Start: 12-21-2020 End: 12-09-2023 No illicit drug use No illicit drug use [place] [id number] [place] Work Phone: Comment on above: Coffee 1 cup daily; quit 1987; Start: 1955 Sex Assigned At Female F [facility] Start: 12-21-2020 End: 12-09-2023 Sex Assigned At [facility] Start: 12-09-2023 End: 06-10-2024 Tobacco smoking status NHIS Ex-smoker [facility] Work Phone: History of tobacco use Current smoker [facility] Work Phone: History of tobacco use Cigarette Smoker [facility] Work Phone: Start: 12-09-2023 End: 06-10-2024 Tobacco use and exposure Smokeless tobacco non-user [facility] Work Phone: Start: 12-09-2023 Alcohol intake Lifetime non-d mary (finding) [facility] Work Phone: Start: 1955 Sex Assigned At Not on file [facility] Work Phone: Start: 11-29-2023 End: 12-09-2023 Exposure to SARS-CoV-2 (event) Not sure [facility] Tobacco smoking stat us NHIS Unknown if ever smoked [facility] Work Phone: Start: 11-30-2024 End: 12-14-2024 Sex Female (finding) [facility] Start: 12-17-2024 End: 01-03-2025 Tobacco smoking status Never smoked tobacco (finding) [facility] Tobacco smoking status Never [facility] Start: 07-23-2017 End: 06-10-2024 Alcoholic beverage intake Current non-drinker of alcohol (finding) [facility] Functional Status Date Assessment Result Facility 01-03-2025 Functional Status N/A [facility] 12-17-2024 Functional Status N/A [facility] Clinical Notes 11-22-2022 to 01-03-2025 Note Date & Type Note Facility 01-03-2025 Hospital Discharg e instructions Patient Education 01/03/2025 12:52:06 Antibiotic Medicine, Adult Antibiotic Medicine, Adult Antibiotic medicines are used to treat infections caused by bacteria. These medicines do not work for illnesses caused by viruses. Antibiotics work by killing the bacteria that are making you sick, but they can also have serious side effects. Antibiotics must be used safely and only when needed. When do I need to take antibiotics? You may need antibiotics for: A urinary tract infection (UTI). Strep throat. Bacterial sinus infection. Meningitis. Serious lung infections. Your health care provider may start you on antibiotics while you are waiting for test results. Tests may include a culture of the throat, urine, blood, or mucus. Your health care provider may change or stop your antibiotic depending on your test results. When are antibiotics not needed? You do not need antibiotics for most common illnesses. These illnesses may be caused by a virus, not by bacteria. You do not need antibiotics for: The common cold. The flu (influenza). Sore throat. Discolored mucus. Bronchitis. Antibiotics are not always needed for all infections caused by bacteria. Many of these infections clear up on their own. Do not take antibiotics when they are not needed. How long should I take my antibiotic? You must take the entire amount prescribed to you. Take your antibiotics as told by your health care provider. Do not stop taking your antibiotics even if you start to feel better. If you stop taking them too soon: You may feel sick again. Your infection may get harder to treat. Each course of antibiotics needs a different length of time to work. The length of time may vary from a few days to a few weeks. What if I miss a dose? Try not to miss any doses of medicine. If you miss a dose, call your health care provider or pharmacist for help. Sometimes, it is okay to take the missed dose as soon as possible. Do not take double or extra doses. What are the risks of taking antibiotics? Antibiotics can cause: Allergic reactions. Nausea. Yeast infections. Liver problems. Antibiotics can also cause an infection called Clostridioides difficile (C. difficile or C. diff), which causes severe diarrhea. This infection happens when the antibiotics kill the healthy bacteria in your intestines. This allows C. diff to grow. C. diff needs to be treated right away. Let your health care provider know if: You have diarrhea while taking an antibiotic. You have diarrhea after you stop taking an antibiotic. C. diff infection can start weeks after stopping the antibiotic. Taking an antibiotic also puts you at risk for getting sick in the future with bacteria that do not respond to medicine (antibiotic-resistant infection). Antibiotics can cause bacteria to change so that if the antibiotic is taken again, the medicine cannot kill the bacteria. These infections can be more serious because they are hard, or sometimes impossible, to treat. Do antibiotics affect control? control pills may not work while you are taking antibiotics. If you are taking control pills: Keep taking them as usual. Use a second form of control, such as a condom, to avoid unwanted . Do this for as long as told by your health care provider. What else should I know about taking antibiotics? Take antibiotics exactly as told. Take the correct amount of medicine at the same time each day. Ask your health care provider: ?How long to wait between doses. ?If you should take your antibiotic with food or water. ?If you should avoid certain foods, drinks, or medicines while taking your antibiotics. ?If you need to watch for any side effects. Use only the antibiotics prescribed to you by your health care provider. Do not use antibiotics prescribed for someone else. Drink a large glass of water when taking your antibiotics unless told otherwise. Drink enough fluid to keep your urine pale yellow. Ask your pharmacist for a dosage syringe, cup, or spoon that correctly measures your antibiotics. Ask your pharmacist or health care provider how to safely get rid of leftover medicine. Follow these instructions at home: Take your antibiotics as told by your health care provider. Do not stop taking your antibiotics even if you start to feel better. Return to your normal activities as told by your health care provider. Ask your health care provider what activities are safe for you. Contact a health care provider if: Your symptoms get worse. You have new joint pain or muscle aches that begin after starting your antibiotic. You have side effects from your antibiotic, such as: ?Stomach pain. ?Diarrhea. ?Nausea. ?White patches in your mouth or throat. Get help right away if: You have signs of a severe allergic reaction to antibiotics. If you have any of these signs, stop taking the antibiotic right away. Signs may include: ?Raised, itchy, red bumps on your skin (hives). ?Skin rash. ?Trouble breathing. ?High-pitched whistling sounds when you breathe, most often when you breathe out (wheezing). ?Swelling anywhere on your body. ?Feeling dizzy. ?Vomiting. You have signs of liver problems, such as: ?Dark or blood-colored urine. ?Yellow color to your skin. ?Bruising or bleeding easily. You have severe diarrhea, bloody diarrhea, or stomach cramps. You have a severe headache. These symptoms may be an emergency. Get help right away. Call 911. Do not wait to see if the symptoms will go away. Do not drive yourself to the hospital. This information is not intended to replace advice given to you by your health care provider. Make sure you discuss any questions you have with your health care provider. Document Revised: 05/27/2023 Document Reviewed: 05/27/2023 Elsevier Patient Education 2023 [employer]. Follow Up Care 12/17/2024 11:51:50 With:[facility] [place] Address: [address] [place] [address] Business (1) When: Unknown Comments:our supply tech will be contacting you for follow-up [facility] 01-03-2025 Note Patient Education Caregiving Antibiotic Medicine, Adult Antibiotic medicines are used to treat infections caused by bacteria. These medicines do not work for illnesses caused by viruses. Antibiotics work by killing the bacteria that are making you sick, but they can also have serious side effects. Antibiotics must be used safely and only when needed. When do I need to take antibiotics? You may need antibiotics for: ??? A urinary tract infection (UTI). ??? Strep throat. ??? Bacterial sinus infection. ??? Meningitis. ??? Serious lung infections. Your health care provider may start you on antibiotics while you are waiting for test results. Tests may include a culture of the throat, urine, blood, or mucus. Your health care provider may change or stop your antibiotic depending on your test results. When are antibiotics not needed? You do not need antibiotics for most common illnesses. These illnesses may be caused by a virus, not by bacteria. You do not need antibiotics for: ??? The common cold. ??? The flu (influenza). ??? Sore throat. ??? Discolored mucus. ??? Bronchitis. Antibiotics are not always needed for all infections caused by bacteria. Many of these infections clear up on their own. Do not take antibiotics when they are not needed. How long should I take my antibiotic? You must take the entire amount prescribed to you. Take your antibiotics as told by your health care provider. Do not stop taking your antibiotics even if you start to feel better. If you stop taking them too soon: ??? You may feel sick again. ??? Your infection may get harder to treat. Each course of antibiotics needs a different length of time to work. The length of time may vary from a few days to a few weeks. What if I miss a dose? Try not to miss any doses of medicine. If you miss a dose, call your health care provider or pharmacist for help. Sometimes, it is okay to take the missed dose as soon as possible. Do not take double or extra doses. What are the risks of taking antibiotics? Antibiotics can cause: ??? Allergic reactions. ??? Nausea. ??? Yeast infections. ??? Liver problems. Antibiotics can also cause an infection called Clostridioides difficile (C. difficile or C. diff), which causes severe diarrhea. This infection happens when the antibiotics kill the healthy bacteria in your intestines. This allows C. diff to grow. C. diff needs to be treated right away. Let your health care provider know if: ??? You have diarrhea while taking an antibiotic. ??? You have diarrhea after you stop taking an antibiotic. C. diff infection can start weeks after stopping the antibiotic. Taking an antibiotic also puts you at risk for getting sick in the future with bacteria that do not respond to medicine (antibiotic-resistant infection). Antibiotics can cause bacteria to change so that if the antibiotic is taken again, the medicine cannot kill the bacteria. These infections can be more serious because they are hard, or sometimes impossible, to treat. Do antibiotics affect control? control pills may not work while you are taking antibiotics. If you are taking control pills: ??? Keep taking them as usual. ??? Use a second form of control, such as a condom, to avoid unwanted . Do this for as long as told by your health care provider. What else should I know about taking antibiotics? Take antibiotics exactly as told. ??? Take the correct amount of medicine at the same time each day. ??? Ask your health care provider: ? How long to wait between doses. ? If you should take your antibiotic with food or water. ? If you should avoid certain foods, drinks, or medicines while taking your antibiotics. ? If you need to watch for any side effects. ??? Use only the antibiotics prescribed to you by your health care provider. Do not use antibiotics prescribed for someone else. ??? Drink a large glass of water when taking your antibiotics unless told otherwise. Drink enough fluid to keep your urine pale yellow. ??? Ask your pharmacist for a dosage syringe, cup, or spoon that correctly measures your antibiotics. ??? Ask your pharmacist or health care provider how to safely get rid of leftover medicine. Follow these instructions at home: ??? Take your antibiotics as told by your health care provider. Do not stop taking your antibiotics even if you start to feel better. ??? Return to your normal activities as told by your health care provider. Ask your health care provider what activities are safe for you. Contact a health care provider if: ??? Your symptoms get worse. ??? You have new joint pain or muscle aches that begin after starting your antibiotic. ??? You have side effects from your antibiotic, such as: ? Stomach pain. ? Diarrhea. ? Nausea. ? White patches in your mouth or throat. Get help right away if: ??? You have sig (more content not included)... [facility] 12-17-2024 Hospital Discharg e instructions Patient Education 12/17/2024 12:04:01 Overactive Bladder, Adult Overactive Bladder, Adult Overactive bladder is a condition in which a person has a sudden and frequent need to urinate. A person might also leak urine if he or she cannot get to the bathroom fast enough (urinary incontinence). Sometimes, symptoms can interfere with work or social activities. What are the causes? Overactive bladder is associated with poor nerve signals between your bladder and your brain. Your bladder may get the signal to empty before it is full. You may also have very sensitive muscles that make your bladder squeeze too soon. This condition may also be caused by other factors, such as: Medical conditions: ?Urinary tract infection. ?Infection of nearby tissues. ?Prostate enlargement. ?Bladder stones, inflammation, or tumors. ?Diabetes. ?Muscle or nerve weakness, especially from these conditions: ?A spinal cord injury. ?Stroke. ?Multiple sclerosis. ?Parkinson's disease. Other causes: ?Surgery on the uterus or urethra. ?Drinking too much caffeine or alcohol. ?Certain medicines, especially those that eliminate extra fluid in the body (diuretics). ?Constipation. What increases the risk? You may be at greater risk for overactive bladder if you: Are an older adult. Smoke. Are going through menopause. Have prostate problems. Have a neurological disease, such as stroke, dementia, Parkinson's disease, or multiple sclerosis (MS). Eat or drink alcohol, spicy food, caffeine, and other things that irritate the bladder. Are overweight or obese. What are the signs or symptoms? Symptoms of this condition include a sudden, strong urge to urinate. Other symptoms include: Leaking urine. Urinating 8 or more times a day. Waking up to urinate 2 or more times overnight. How is this diagnosed? This condition may be diagnosed based on: Your symptoms and medical history. A physical exam. Blood or urine tests to check for possible causes, such as infection. You may also need to see a health care provider who specializes in urinary tract problems. This is called a urologist. How is this treated? Treatment for overactive bladder depends on the cause of your condition and whether it is mild or severe. Treatment may include: Bladder training, such as: ?Learning to control the urge to urinate by following a schedule to urinate at regular intervals. ?Doing Kegel exercises to strengthen the pelvic floor muscles that support your bladder. Special devices, such as: ?Biofeedback. This uses sensors to help you become aware of your body's signals. ?Electrical stimulation. This uses electrodes placed inside the body (implanted) or outside the body. These electrodes send gentle pulses of electricity to strengthen the nerves or muscles that control the bladder. ?Women may use a plastic device, called a pessary, that fits into the vagina and supports the bladder. Medicines, such as: ?Antibiotics to treat bladder infection. ?Antispasmodics to stop the bladder from releasing urine at the wrong time. ?Tricyclic antidepressants to relax bladder muscles. ?Injections of botulinum toxin type A directly into the bladder tissue to relax bladder muscles. Surgery, such as: ?A device may be implanted to help manage the nerve signals that control urination. ?An electrode may be implanted to stimulate electrical signals in the bladder. ?A procedure may be done to change the shape of the bladder. This is done only in very severe cases. Follow these instructions at home: Eating and drinking Make diet or lifestyle changes recommended by your health care provider. These may include: ?Drinking fluids throughout the day and not only with meals. ?Cutting down on caffeine or alcohol. ?Eating a healthy and balanced diet to prevent constipation. This may include: ?Choosing foods that are high in fiber, such as beans, whole grains, and fresh fruits and vegetables. ?Limiting foods that are high in fat and processed sugars, such as fried and sweet foods. Lifestyle Lose weight if needed. Do not use any products that contain nicotine or tobacco. These include cigarettes, chewing tobacco, and vaping devices, such as e-cigarettes. If you need help quitting, ask your health care provider. General instructions Take niax-lfh-psnaqko and prescription medicines only as told by your health care provider. If you were prescribed an antibiotic medicine, take it as told by your health care provider. Do not stop taking the antibiotic even if you start to feel better. Use any implants or pessary as told by your health care provider. If needed, wear pads to absorb urine leakage. Keep a log to track how much and when you drink, and when you need to urinate. This will help your health care provider monitor your condition. Keep all follow-up visits. This is important. Contact a health care provider if: You have a fever or chills. Your symptoms do not get better with treatment. Your pain and discomfort get worse. You have more frequent urges to urinate. Get help right away if: You are not able to control your bladder. Summary Overactive bladder refers to a condition in which a person has a sudden and frequent need to urinate. Several conditions may lead to an overactive bladder. Treatment for overactive bladder depends on the cause and severity of your condition. Making lifestyle changes, doing Kegel exercises, keeping a log, and taking medicines can help with this condition. This information is not intended to replace advice given to you by your health care provider. Make sure you discuss any questions you have with your health care provider. Document Revised: 07/16/2021 Document Reviewed: 07/16/2021 [employer] Patient Education 2023 [employer]. Follow Up Care 12/15/2024 15:13:16 With:PHOEBE LOWERY, SHANTA Schofield, URL Address: [address] [place] [address] When:Within 2 Week(s) [facility] 12-17-2024 Note Urology Office/Clini c Note Chief Complaint referral incontinence HPI Staff 69yr old female pt referred by Toby Quintana for incontinence. Has lg volume incontinence both through the day and at night. She wears Depends daily, changes about 3-5x. Was in the hospital for a fall at the end of August, went to [facility] for rehab for about a month. Did not have any urinary problems prior to hospitalization. Was treated for UTI during hospital admission w Cipro 09/07. Received Doxy, and 2 rounds of Keflex for LE wound 10/12, 10/14, 10/22. 12/03/24 - Klebsiella UTI tx'd w Cipro x 7d. 12/14/24 - Staph Epi, tx'd w Doxy x 7d. Just started today. PCP started Oxybutynin ER 10mg daily on 11/30/24 - pt states this has made no difference. However she has +cx. PVR - 28mL Dysuria: previously yes, not now Incomplete bladder emptying: yes Hematuria: denies Frequency: feels like she is constantly urinating Urgency: doesn't really get the urge to void. Just starts going. Nocturia: feels like she goes constantly, especially if she moves Stream: decent stream Leaking: yes Post void dripping: denies Wearing pads/ Depends: wears Depends, changes Depends about 3-5x per day Urge incontinence: yes Stress incontinence: yes Incontinence without Sensory Awareness: yes Abdominal pain: denies Flank pain: denies Sexual complaints: denies Review of Systems PHQ Score Initial Depression Screen Score: 3 SCORE Detailed Depression Screen Score: 15 Total Depression Screen Score: 18 no fever, chills, malaise, myalgia. no rash/lesions. no chest pain, palpitations, or SOB. no abdominal pain, nausea, vomiting. Physical Exam Vitals & Measurements HR: 63(Peripheral) RR: 18 BP: 125/80 HT: 67 in HT: 170 cm WT: 100 kg WT: 220.462 lb BMI: 34.6 General: nontoxic, NAD Mouth: moist mucosa Lungs: normal respiratory effort Cardio: regular rate, good distal perfusion Abdomen: nondistended, no suprapubic distention or tenderness, no CVA tenderness Neurologic: Grossly normal Skin: No rashes or suspicious lesions Assessment/Plan nl GFR Oct 2024 1. 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 +ISRAEL, UUI, FI, and incontinence without sensory awareness. Reports all are new onset since hospital admission this fall. [Severe OA. Knee/shoulder pain but no surgery.] On Oxybutynin 10mg ER. Does not feel it's helping but +cx x 2 recently. Need to clear infections first. Then can assess urinary habits. -Next ov discuss fluid intake, bowel habits. Consider increasing Oxybutynin vs switching to alternate med. May need Uros eventually. 2. UTI (urinary tract infection) (N39.0: Urinary tract infection, site not specified) Was treated for UTI during hospital admission w Cipro 09/07. Received Doxy, and 2 rounds of Keflex for LE wound 10/12, 10/14, 10/22. 12/03/24 - Klebsiella UTI tx'd w Cipro x 7d. 12/14/24 - Staph Epi, tx'd w Doxy x 7d. Just started today. Nontoxic appearing. No systemic sx. No hx frequent UTIs. No hx stones. Not diabetic. PVR low. Does have UUI and FI. -Return in 2 weeks, drop urine for C&S a few days prior. If continues to have +cx will need to consider upper tract imaging and cysto as well as UTI preventives. Orders: 61774 Measure Post Void residual urine and/or bladder capacity by US- non-imaging 23045 Measure Post Void residual urine and/or bladder capacity by US- non-imaging Body Mass Index (BMI) documented 3008F Current tobacco non-user 1036F Depression Screening Positive 3354F Fall Risk Screen 2 or more w/injury 1100F Influenza immunization status assessed 1030F Medication list documented in medical record 1159F Most recent diastolic blood pressure 80-89 mm Hg 3079F Review of all meds by a prescribing practitioner or clinical pharmacist documented in EHR 1160F Systolic BP <130 mm Hg (Most Recent) 3074F Urnls Dip Stick Auto w/o Microscopy POC 48144 Follow-up With When Contact Information PHOEBE LOWERY, SHANTA Schofield, URL In 2 weeks [address] [place] [address] Additional Instructions: Patient Education Overactive Bladder, Adult Problem List/Past Medical History Ongoing Incontinence without sensory awareness UTI (urinary tract infection) Historical No qualifying data Procedure/Surgical History Gallbladder, Hand surgery care plan, Hysterectomy, Rib resection and open drainage of pleural cavity. Medications alprazolam, Oral, TID atenolol, Oral, BID doxycycline, 100 mg, Oral, BID oxybutynin, 10 mg, Oral, Daily Allergies sulfa drugs (Rash) Social History Alcohol Never., 12/17/2024 Substance Abuse Never., 12/17/2024 Tobacco Never (less than 100 in lifetime) Tobacco Use:. Never Smokeless Tobacco Use:., 12/17/2024 Family History Family history is unknown Immunizations Vaccine Date Status Comments SARS-CoV-2 (COVID-19) [id number] 09/06/2022 Recorded S (more content not included)... [facility] Comment on above: Result Comment: Elec tronically Signed By: SHANTA SANDHU PA-C\.br\Date and Time Signed: 12/17/24 12:07 EST 12-17-2024 Note Patient Education Obstetrics and Gynecology Overactive Bladder, Adult Overactive bladder is a condition in which a person has a sudden and frequent need to urinate. A person might also leak urine if he or she cannot get to the bathroom fast enough (urinary incontinence). Sometimes, symptoms can interfere with work or social activities. What are the causes? Overactive bladder is associated with poor nerve signals between your bladder and your brain. Your bladder may get the signal to empty before it is full. You may also have very sensitive muscles that make your bladder squeeze too soon. This condition may also be caused by other factors, such as: ??? Medical conditions: ? Urinary tract infection. ? Infection of nearby tissues. ? Prostate enlargement. ? Bladder stones, inflammation, or tumors. ? Diabetes. ? Muscle or nerve weakness, especially from these conditions: ? A spinal cord injury. ? Stroke. ? Multiple sclerosis. ? Parkinson's disease. ??? Other causes: ? Surgery on the uterus or urethra. ? Drinking too much caffeine or alcohol. ? Certain medicines, especially those that eliminate extra fluid in the body (diuretics). ? Constipation. What increases the risk? You may be at greater risk for overactive bladder if you: ??? Are an older adult. ??? Smoke. ??? Are going through menopause. ??? Have prostate problems. ??? Have a neurological disease, such as stroke, dementia, Parkinson's disease, or multiple sclerosis (MS). ??? Eat or drink alcohol, spicy food, caffeine, and other things that irritate the bladder. ??? Are overweight or obese. What are the signs or symptoms? Symptoms of this condition include a sudden, strong urge to urinate. Other symptoms include: ??? Leaking urine. ??? Urinating 8 or more times a day. ??? Waking up to urinate 2 or more times overnight. How is this diagnosed? This condition may be diagnosed based on: ??? Your symptoms and medical history. ??? A physical exam. ??? Blood or urine tests to check for possible causes, such as infection. You may also need to see a health care provider who specializes in urinary tract problems. This is called a urologist. How is this treated? Treatment for overactive bladder depends on the cause of your condition and whether it is mild or severe. Treatment may include: ??? Bladder training, such as: ? Learning to control the urge to urinate by following a schedule to urinate at regular intervals. ? Doing Kegel exercises to strengthen the pelvic floor muscles that support your bladder. ??? Special devices, such as: ? Biofeedback. This uses sensors to help you become aware of your body's signals. ? Electrical stimulation. This uses electrodes placed inside the body (implanted) or outside the body. These electrodes send gentle pulses of electricity to strengthen the nerves or muscles that control the bladder. ? Women may use a plastic device, called a pessary, that fits into the vagina and supports the bladder. ??? Medicines, such as: ? Antibiotics to treat bladder infection. ? Antispasmodics to stop the bladder from releasing urine at the wrong time. ? Tricyclic antidepressants to relax bladder muscles. ? Injections of botulinum toxin type A directly into the bladder tissue to relax bladder muscles. ??? Surgery, such as: ? A device may be implanted to help manage the nerve signals that control urination. ? An electrode may be implanted to stimulate electrical signals in the bladder. ? A procedure may be done to change the shape of the bladder. This is done only in very severe cases. Follow these instructions at home: Eating and drinking ??? Make diet or lifestyle changes recommended by your health care provider. These may include: ? Drinking fluids throughout the day and not only with meals. ? Cutting down on caffeine or alcohol. ? Eating a healthy and balanced diet to prevent constipation. This may include: ? Choosing foods that are high in fiber, such as beans, whole grains, and fresh fruits and vegetables. ? Limiting foods that are high in fat and processed sugars, such as fried and sweet foods. Lifestyle ??? Lose weight if needed. ??? Do not use any products that contain nicotine or tobacco. These include cigarettes, chewing tobacco, and vaping devices, such as e-cigarettes. If you need help quitting, ask your health care provider. General instructions ??? Take yajk-edr-glwprbg and prescription medicines only as told by your health care provider. ??? If you were prescribed an antibiotic medicine, take it as told by your health care provider. Do not stop taking the antibiotic even if you start to feel better. ??? Use any implants or pessary as told by your health care provider. ??? If needed, wear pads to absorb urine leakage. ??? Keep a log to track how much and when you drink, and whe (more content not included)... [facility] 12-13-2024 Hospital Discharg e instructions Ambulatory OrdersReferral to Urology Time Frame: 12/13/24, Location: None Selected [facility] Work Phone: 11-30-2024 Evaluation note Diagnosis Onset Date Resolution Incontinence acute November 1:31pm Insomnia acute November 30, 2024 1:31pm Leg ulcer, left acute November 112024 1:31pm Urinary frequency acute November 30, 2024 1:31pm [facility] Work Phone: 1(267) 400-252701-21-2025 Evaluation note* Diagnosis Onset Date Resolution Status Admit Date Incontinence acute November 1:31pm Insomnia acute November 30, 2024 1:31pm Leg ulcer, left acute November 112024 1:31pm Urinary frequency acute November 30, 2024 1:31pm Incontinence acute November 10:43am Insomnia acute December 07, 2024 10:43am Left knee pain acute December 072024 10:43am Leg ulcer, left acute November 112024 10:43am Lumbar radiculopathy, chronic acute December 07, 2024 10:43am Right knee pain acute November 112024 10:43am Urinary frequency acute December 07, 2024 10:43am Incontinence acute December 1:25pm [facility] Work Phone: 1(170) 687-223608-07-2024 Miscellaneous Notes* Telephone Encounter - Re Ni - 06/16/2024 3:05 PM EDT Received a call from patient stating Dr Cordero gave her a RX for compression stockings and she took it to [facility] in [place] and they told her she is missing the compression- rx needs clarification. Funny thing is, I do not see RX anywhere not mention in Drs progress note besides under Problem List is marked Compression therapy and leg elecation as current assessment and plan. I did ask if it happened to be hand-written or printed from a computer and her and michelle both think computer paper. Please advise and enter RX for compression stockings for patient so she may fill at [facility]. Any questions, Adriana may be reached at [phone] Thank you. * Telephone Encounter - Sirisha Angela - 06/16/2024 3:05 PM EDT I am taking care of this today since I am in clinic with him. Patients father is here at office. JT [facility] Telephone encounter Note* Telephone Encounter - Re Ni - 06/16/2024 3:05 PM EDT Received a call from patient stating Dr Cordero gave her a RX for compression stockings and she took it to [facility] in [place] and they told her she is missing the compression- rx needs clarification. Funny thing is, I do not see RX anywhere not mention in Drs progress note besides under Problem List is marked Compression therapy and leg elecation as current assessment and plan. I did ask if it happened to be hand-written or printed from a computer and her and dionby both think computer paper. Please advise and enter RX for compression stock[facility] for [facility] Any questions, Adriana may be reached at [phone] Thank you. [facility] [id number] Telephone encounter Note* Telephone Encounter - Sirisha Angela - 06/16/2024 3:05 PM EDT I am taking care of this today since I am in clinic with him. Patients father is here at office. JT [facility] [id number] Evaluation + Plan note* Assessment & Plan Note - Chetna Cordero MD - 06/10/2024 1:34 PM EDTAssociated Problem(s): Bilateral leg edema Swelling and hyperemia with no DVT likely related to neuropathy. Compression therapy and leg elevation. [facility] Miscellaneous Notes* Assessment & Plan Note - Chetna Cordero MD - 06/10/2024 1:34 PM EDTAssociated Problem(s): Bilateral leg edema Swelling and hyperemia with no DVT likely related to neuropathy. Compression therapy and leg elevation. documented in this encounterAccess [facility] [place]08-[facility] History of Present illness Narrative* Chetna Cordero MD - 06/10/2024 10:20 AM EDT Images from the original note were not included. To: No primary care provider on file. HPI: Adriana Richard is a 69 y.o. female with bilateral LE swelling and hyperemia. No wounds or vasculogenic pain. She has palpable pulses. Review of Systems: Review of Systems Constitutional: Negative. HENT: Negative. Respiratory: Negative. Cardiovascular: Negative. Gastrointestinal: Negative. Endocrine: Negative. Genitourinary: Negative. Musculoskeletal: Negative. Skin: Negative. Neurological: Negative. Hematological: Negative. Medications: Current Outpatient Medications on File Prior to Visit Medication Sig Dispense Refill ALPRAZolam (XANAX) 1 mg tablet Take 1 tablet (1 mg total) by mouth nightly as needed for anxiety. atenolol (TENORMIN) 50 mg tablet 0 DULoxetine (CYMBALTA) 60 mg capsule Take 60 mg by mouth daily. (Patient not taking: Reported on 06/10/2024) fluticasone-salmeterol (ADVAIR) 500-50 mcg/dose DISKUS Inhale 2 puffs 2 (two) times a day. (Patientnot taking: Reported on 06/10/2024) lovastatin (MEVACOR) 10 mg tablet Take 10 mg by mouth nightly. (Patient not taking: Reported on 06/10/2024) oxyCODONE (ROXICODONE) 15 mg immediate release tablet Take 15 mg by mouth every 4 (four) hours as needed for pain. (Patient not taking: Reported on 06/10/2024) tiZANidine (ZANAFLEX) 2 mg tablet Take 2 mg by mouth every 6 (six) hours as needed for muscle spasms. (Patient not taking: Reported on 06/10/2024) No current facility-administered medications on file prior to visit. Past Medical History: Past Medical History: Diagnosis Date Anxiety Asthma Cancer ([facility]) melanoma COPD (chronic obstructive pulmonary disease) [place] Depression Fibromyalgia GERD (gastroesophageal reflux disease) Migraine SVT (supraventricular tachycardia) [place] Past Surgical History: Past Surgical History: Procedure Laterality Date BACK SURGERY BONE RESECTION, RIB Bilateral CARDIAC SURGERY ablasion CHOLECYSTECTOMY HAND ARTHROPLASTY Right HYSTERECTOMY TONSILLECTOMY Social and Family History: Social History Socioeconomic History Marital status: Legally Spouse name: Not on file Number of children: Not on file Years of education: Not on file Highest education level: Not on file Occupational History Not on file Tobacco Use Smoking status: Former Smokeless tobacco: Never Substance and Sexual Activity Alcohol use: No Drug use: No Sexual activity: Defer Other Topics Concern Coffee Yes Tea Yes Carbonated Beverages Yes Chocolate No Social History Narrative Not on file Social Determinants of Health Financial Resource Strain: Not on file Food Insecurity: No Food Insecurity (06/10/2024) Hunger Screening Food Insecurity - Worry: Never True Food Insecurity - Inability: Never True Transportation Needs: Not on file Physical Activity: Not on file Stress: Not on file Social Connections: Not on file Interpersonal Safety: Not on file Housing Instability: Not on file Family History Family history unknown: Yes Recent Labs: Recent and relative labs were reviewed and interpreted and contributed to the assessment and plan below. Vitals: BP 122/86 (BP Site: Left Arm, BP Postition: Sitting, BP CUFF SIZE: M (9-13 inches)) Pulse 74 Ht170.2 cm (5' 7 ) Wt 99.8 kg (220 lb) SpO2 98% BMI 34.46 kg/m Body mass index is 34.46 kg/m . Physical Exam: Physical Exam Constitutional: Appearance: Normal appearance. HENT: Head: Normocephalic and atraumatic. Mouth/Throat: Mouth: Mucous membranes are moist. Eyes: Extraocular Movements: Extraocular movements intact. Pupils: Pupils are equal, round, and reactive to light. Cardiovascular: Rate and Rhythm: Normal rate and regular rhythm. Pulmonary: Effort: Pulmonary effort is normal. Breath sounds: Normal breath sounds. Abdominal: General: Abdomen is flat. Bowel sounds are normal. Palpations: Abdomen is soft. Musculoskeletal: General: Normal range of motion. Cervical back: Normal range of motion. Skin: General: Skin is warm and dry. Neurological: General: No focal deficit present. Mental Status: She is alert and oriented to person, place, and time. Mental status is at baseline. Psychiatric: Mood and Affect: Mood normal. Behavior: Behavior normal. Thought Content: Thought content normal. Judgment: Judgment normal. Recent testing: Assessment and Plan: Problem List Bilateral leg edema - Primary Current Assessment & Plan Swelling and hyperemia with no DVT likely related to neuropathy. Compression therapy and leg elevation. Adriana was seen today for (peripheral vascular disease)- lower extremity pain, bilate. Diagnoses and all orders for this visit: Bilateral leg edema PVD (peripheral vascular disease) ([facility]) - [facility] [place] Lower extremity pain, bilateral - [facility] [place], [place] Chetna Cordero MD, TRACI, RPVI, FSVS, FACS [facility] This note was created with the assistance of a speech recognition program. While intending to generate a timely document that accurately reflects the content of the visit, no guarantee can be provided that every grammatical or spelling mistake has been or will be identified or corrected. Thank you for your understanding. documented in this encounterAccess Hospital [place]07-09-2024 Miscellaneous Notes* Telephone Encounter - Fernanda Bassett CMA - 05/18/2024 11:08 AM EDT Patient states she is not home and she will have to hold off on referral for a month documented in this encounterAccess Hospital [place]07-09-2024 Telephone encounter Note* Telephone Encounter - Fernanda Bassett CMA - 05/18/2024 11:08 AM EDT Patient states she is not home and she will have to hold off on referral for a month [facility] Hospital Discharge instructionsAmbulatory Orders* Referral to Orthopedics Time Frame: 03/22/24, Location: None [facility] Work Phone: 1(530) 972-110402-07-2024 Evaluation note* Encounter Date Diagnosis Assessment Notes Treatment Notes Treatment Clinical Notes Dec, Jaw swelling (ICD-10 - R22.0) H.BLOOM Other 02-06-2024 Evaluation note* Encounter Date Diagnosis Assessment Notes Treatment Notes Treatment Clinical Notes Dec, Dental infection (ICD-10 - K04.7) Pt will contact her insurance, find a different dentist. Will continue antibiotic at this time. H.BLOOM Other 01-30-2024 History of Present illness Narrative* Iban Lu MD - 12/09/2023 10:00 AM EST Tatyaan Dinero is a 68 y.o. female Chief [...] follow-up will be scheduled Iban Lu MD, [facility] Review of Systems Cardiovascular: Positive for palpitations. [...] EVENING, Disp: 225 tablet, Rfl: 0 omega 4-fxu-vmw-fish oil 360 mg-108 mg- 180 mg-1,200 mg [...] of Iban Lu MD. documented in this encounterUnOhio[facility] Work Phone: 1(622) 783-245801-30-2024 Instructions* Patient Instructions* Nataliya Manning LPN - [...] Follow up one year documented in [facility]Kind[facility] Work Phone: 1(995) 765-768612-12-2023 Evaluation note* Encounter Date Diagnosis Assessment Notes Treatment Notes Treatment Clinical Notes Oct, Open fracture of tooth, initial encounter (ICD-10 - S02.5XXB) Keep area clean, brush and rinse frequently. seeing dentist next week. Oct, Lumbar radiculitis (ICD-10 - M54.16) pt requests refill for her chronic back issues. We discussed her treatment plan w Dr. Byers. H.BLOOM Other 11-16-2023 Evaluation note* Encounter Date Diagnosis Assessment Notes Treatment Notes Treatment Clinical Notes Sep, Lumbar radiculitis (ICD-10 - M54.16) CHanged pain med. Jax will call Dr. Byers's office for a change in treatment plan and an appt. Sep, Nausea & vomiting (ICD-10 - R11.2) States that zofran has not helped in the past - phenergan sent in for short term use. H.BLOOM Other 11-13-2023 Evaluation note* Encounter Date Diagnosis Assessment Notes Treatment Notes Treatment Clinical Notes Sep, Radiculopathy, lumbar region (ICD-10 - M54.16) My staff reviewed her case with Dr. Byers's staff. She is to call their office for follow-up appointment next month. Patient does not want another injection and would rather have an ablation. Trial of tramadol sent to pharmacy. OARRS reviewed. H.BLOOM Other 10-11-2023 Evaluation note* Encounter Date Diagnosis Assessment Notes Treatment Notes Treatment Clinical Notes Aug, Pain in right knee (ICD-10 - M25.561) Aug, Other chronic pain (ICD-10 - G89.29) Aug, Pain in left knee (ICD-10 - M25.562) H.BLOOM Other 03-31-2023 Evaluation note* Encounter Date Diagnosis Assessment Notes Treatment Notes Treatment Clinical Notes Jan, Nausea & vomiting (ICD-10 - R11.2) Jan, Pain in right knee (ICD-10 - M25.561) Jan, Other chronic pain (ICD-10 - G89.29) Jan, Pain in left knee (ICD-10 - M25.562) H.BLOOM Other 03-31-2023 Evaluation note* Encounter Date Diagnosis Assessment Notes Treatment Notes Treatment Clinical Notes Jan, Nausea & vomiting (ICD-10 - R11.2) chronic problem - requesting refill on Zofran Jan, Pain in right knee (ICD-10 - M25.561) Jan, Other chronic pain (ICD-10 - G89.29) Jan, Pain in left knee (ICD-10 - M25.562) H.BLOOM Other 03-01-2023 Evaluation note* Encounter Date Diagnosis [...] She would prefer to stay close to [place]. Our office is working to get her referral to pain management near [place]. H.BLOOM Other 01-31-2023 Evaluation note* Encounter Date Diagnosis Assessment Notes Treatment Notes Treatment Clinical Notes Nov, Lumbar pain (ICD-10 - M54.50) H.BLOOM Other 01-13-2023 Evaluation note* Encounter Date Diagnosis Assessment Notes Treatment Notes Treatment Clinical Notes Nov, Low back pain, unspecified back pain laterality, unspecified chronicity, unspecified whether sciatica present (ICD-10 - M54.50) H.BLOOM Other evaluation + Plan note Future Appointments Appointment Date:12/30/2024 08:20:00 AM Scheduled Provider:SHANTA SANDHU PA-C Location:[facility] Appointment Type:URO Office Visit [facility] evaluation + Plan note Future Appointments Appointment Date:12/30/2024 08:20:00 AM Scheduled Provider:SHANTA SANDHU PA-C [facility] [place] Appointment Type:URO Office Visit Diagnostic Tests Pending * Urine Culture 12/28/24 [facility] Evaluation noteNo assessment information available [facility] Work Phone: Evaluation noteNo InformationNortSeat 14A Other evaluation noteNoQ.L.L.Inc. Ltd[employer] Other Evaluation note* Diagnosis Supraventricular tachycardia by ECG- Primary Mixed hyperlipidemia Palpitations Class II obesity documented in this encounter [facility] Work Phone: Evaluation note* Diagnosis Onset Date Resolution Status Fatigue acute Hyperlipidemia acute Lumbar radiculopathy, chronic acute Medicare annual wellness visit, subsequent acute SVT (supraventricular tachycardia) acute [facility] Work Phone: Evaluation note* Diagnosis Onset Date Resolution Status Fatigue acute Hyperlipidemia acute Lumbar radiculopathy, chronic acute Medicare annual wellness visit, subsequent acute SVT (supraventricular tachycardia) acute Lumbar radiculopathy, chronic acute [facility] Work Phone: Evaluation note* Diagnosis Onset Date Resolution Status Fatigue acute Hyperlipidemia acute Lumbar radiculopathy, chronic acute Medicare annual wellness visit, subsequent acute SVT (supraventricular tachycardia) acute Lumbar radiculopathy, chronic acute Left knee pain acute Lumbar radiculopathy, chronic acute Right knee pain acute Left knee pain acute Right knee pain acute [facility] Work Phone: Evaluation note* Diagnosis Onset Date Resolution Status Left knee pain acute Lumbar radiculopathy, chronic acute Right knee pain acute Bilateral cold feet acute Left knee pain acute Right knee pain acute Bilateral lower extremity pain acute Diminished pulses in lower extremity acute PAD (peripheral artery disease) acute [facility] Work Phone: Evaluation note* Diagnosis Onset Date Resolution Status Admit Date Incontinence acute November 1:31pm Urinary frequency acute November 30, 2024 1:31pm [facility] Work Phone: Evaluation note* Diagnosis Bilateral leg edema- Primary Edema PVD (peripheral vascular disease) ([facility]) Unspecified peripheral vascular disease Lower extremity pain, bilateral documented in this encounter [facility] - Reported* Type Description Date [...] childbirth Hospitalization History hysterectomy Hospitalization History pancreatitis [facility] [employer] Other History general Narrative - [facility] [employer] Other Hospital course Narrative No data available for this section [facility] Hospital Discharge instructionsAmbulatory Orders* Referral to Vascular Surgery Time Frame: 04/30/24, Location: None Selected [facility] Work Phone: Hospital Discharge instructions No data available for this section [facility] InstructionsNot on filedocumented in this encounter [facility]ructionsNot on filedocumented in this encounter [facility] SystemInstructionsNot on filedocumented in this encounter [facility] note No data available for this section [facility] reason for referral (narrative)* Consultation (Routine) - Authorized Specialty Diagnoses / Procedures Referred By Contac t Referred To Contact Cardiology Diagnoses Supraventricular tachycardia by ECG Procedures Follow Up In Cardiology Iban Lu MD [address] [facility], [place] [address] [place] [id number] Iban Lu MD [address] [facility], [place] [address] [place] [address] Referral ID Status Reason Start Date Expiration Date V isits Requested Visits Authorized [id number] Authorized 12/09/2023 12/08/2024 1 1 [facility] Work Phone: Reason for visit NarrativePain Medicine Referral UpdateNouniversity [facility] [employer] Other Summary Purpose Family History No Family [...] Time Advance Directives No March 24 4:29pm Chief Complaint * ADRIANA DINERO is being [...] will be scheduled * Iban Lu MD, [facility] * ADRIANA DINERO is being seen for [...] and 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 * ASSESSMENT AND PLAN: * [...] will be scheduled * Iban Lu MD, [facility] Chief Complaint and Reason for Visit Chief Complaint xray Chief Complaint Swollen Face, [place]- [phone] Medicare Wellness Reason for Visit Fatigue Hyperlipidemia Lumbar radiculopathy, chronic Medicare annual wellness visit, subsequent SVT (supraventricular tachycardia) Chief Complaint Medicare Wellness Amb Documentation pulled [phone] knee injections Reason for Visit Fatigue Hyperlipidemia Lumbar radiculopathy, chronic Medicare annual wellness visit, subsequent SVT (supraventricular tachycardia) Lumbar radiculopathy, chronic Chief Complaint Medicare Wellness Amb Documentation pulled [phone] knee injections leg swelling - hot cold [...] artery disease) Chief Complaint Discuss Pain Meds Chief Complaint Admit Date Amb Documentation September 07, 2024 1 1:48am FDC visit September 17, 2024 1 1:59pm long term visit October 11, 2024 1 1:59pm VIRTUAL, talk about medical concerns Greg morales 2024 1:31pm Reason for Visit Admit Date Incontinence November 30, 2024 1 :31pm Urinary frequency November 30, 2024 1 :31pm Reason for Visit Admit Date Incontinence November 30, 2024 1 :31pm Insomnia November 30, 2024 1 :31pm Leg ulcer, left November 30, 2024 1 :31pm Urinary frequency November 30, 2024 1 :31pm Chief Complaint Admit Date FDC visit September 17, 2024 1 1:59pm long term visit October 11, 2024 1 1:59pm VIRTUAL, talk about medical concerns [facility] 2024 1:31pm R35.0 R32 December 01, 2024 8 :00am Cortisone Shot/Discuss Meds/Check Up [facility] 2024 10:43am Chief Complaint Admit Date FDC visit September 17, 2024 1 1:59pm long term visit October 11, 2024 1 1:59pm VIRTUAL, talk about medical concerns [facility] 2024 1:31pm R35.0 R32 December 01, 2024 8 :00am Cortisone Shot/Discuss Meds/Check Up [facility] 2024 10:43am VIRTUL, talk about uti December 13 1:25pm Reason for Visit Admit Date Incontinence November 30, 2024 1 :31pm Insomnia November 30, 2024 1 :31pm Leg ulcer, left November 30, 2024 1 :31pm Urinary frequency November 30, 2024 1 :31pm Incontinence December 07, 2024 1 0:43am Insomnia December 07, 2024 1 0:43am Left knee pain December 07, 2024 1 0:43am Leg ulcer, left December 07, 2024 1 0:43am Lumbar radiculopathy, chronic December 072024 10:43am Right knee pain December 07, 2024 1 0:43am Urinary frequency December 07, 2024 1 0:43am Incontinence December 13, 2024 1 :25pm Chief Complaint Admit Date FDC visit September 17, 2024 1 1:59pm long term visit October 11, 2024 1 1:59pm VIRTUAL, talk about medical concerns [facility] 2024 1:31pm R35.0 R32 December 01, 2024 8 :00am Cortisone Shot/Discuss Meds/Check Up [facility] 2024 10:43am Increased frequency of urination Inconti nence December 13, 2024 9:15am VIRTUL, talk about uti December 13 1:25pm Reason for Referral Reason 01/21/23 Evaluate and Treat Chronic Pain Diagnosis 1 Chronic pain disorde r (G89.4) Diagnosis 2 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) Diagnosis 3 Other chronic pain ( G89.29) Diagnosis 4 Low back pain, unspe cified (M54.50) Referral Organization [facility] urosurger Referring Provider First Name Leeann Referring Provider Last Name Blades Referring Provider Specialty Neurologica l Surgery Referred Organization [facility] Referred Provider Albertina Oconnell Referred Address [address] [place], [place],[address] Referred Provider Specialty Pain Medicin e Referral Priority Routine Referral Appointment Date 2023-01-21 [facility] 09:03:40 AM >Received today and waiting for office notes to be locked before sending referral [facility] 01/01/2023 07:37:06 AM >Referral was fax [facility] 01/08/2023 09:26:41 AM >Referral was refax to the correct office with their form Trini Suazo 01/08/2023 02:11:33 PM >received letter, pt has appt scheduled for 01/21/2023 Clinical Notes Phone: Reason 01/08/23 @ 10:00am Evaluate and Treat Hip Pain Diagnosis 1 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) Referral Organization [facility] urosurger Referring Provider First Name Leeann Referring Provider Last Name Mariano Referring Provider Specialty Neurologica l Surgery Referred Organization [facility] Referred Provider Samuel Chatman II Referred Address [address] [place],[address] Referred Provider Specialty Orthopaedic Surgery Referral Priority Routine Referral Appointment Date 2023-01-08 [facility] 023 10:20:34 AM >Received today and sent P2P [facility] 01/01/2023 12:05:35 PM >Patient was scheduled [facility] 01/15/2023 09:30:10 AM >Office notes not locked yet [facility] 01/16/2023 08:43:03 AM >Sent telephone encounter to referring physician to let them know that the consult letter is ready for their review Reason DECLINED lumbar an d knee pain Diagnosis 1 Lumbar pain (M54.50) Referral Organization [facility] Referring Provider First Name Toby Referring Provider Last Name Mariano Referring Provider Specialty Family Medi cine Referred Organization Alicja damico Referred Provider Paddy De Los Santos Referred Address [address] [place],[address] Referred Provider Specialty Rheumatology Referral Priority Routine General Notes Den Kathryn 02:32:15 PM >received today, notes attached, along with multiple testing attached, insurance card attached, referral faxed ValdochemachunKathryn 12/17/2022 09:06:39 AM >faxed first attempt letter Kathryn Crenshaw 12/18/2022 03:11:43 PM >awaiting doctor approval to schedule Den Kathryn 12/24/2022 10:56:11 AM >faxed second attempt letter Kathryn Crenshaw 12/25/2022 01:26:57 PM >received fax that pt can not be scheduled, will follow up with patient Den Kathryn 12/26/2022 01:22:19 PM >called patient to see if she wanted to be referred elsewhere, left detailed message. will follow up DenKathryn 01/02/2023 02:05:36 PM >per patient she never wanted this referral. TE sent for review. Closing referral Clinical Notes Dr. Destiny ESTRADA? Additional Source Comments INFORMATION SOURCE (unrecogn ized section and content) DATE CREATED AUTHOR 09/23/2019 [facility] DATE CREATED AUTHOR AUTHOR'S ORGANIZ ATION 11/04/2019 [facility] DATE CREATED AUTHOR AUTHOR'S ORGANIZ ATION 12/06/2020 [facility] DATE CREATED AUTHOR AUTHOR'S ORGANIZ ATION 04/21/2021 [facility] DATE CREATED AUTHOR AUTHOR'S ORGANIZ ATION 12/10/2022 [employer] DATE CREATED AUTHOR AUTHOR'S ORGANIZ ATION 01/10/2023 [facility] DATE CREATED AUTHOR AUTHOR'S ORGANIZ ATION 03/18/2023 [facility] DATE CREATED AUTHOR AUTHOR'S ORGANIZ ATION 06/09/2023 [facility] DATE CREATED AUTHOR AUTHOR'S ORGANIZ ATION 10/10/2024 [facility] DATE CREATED AUTHOR AUTHOR'S ORGANIZ ATION 12/17/2024 [facility] DATE CREATED AUTHOR AUTHOR'S ORGANIZ ATION 01/01/2025 [facility] DATE CREATED AUTHOR AUTHOR'S ORGANIZ ATION 01/04/2025 [facility] DATE CREATED AUTHOR AUTHOR'S ORGANIZ ATION 01/05/2025 [facility] Care Teams (unrecognized sec tion and content) Team Status: Inactive Member Role Status Dates Toby Quintana MD Primary Care Provider Active Leeann Quintana Attending Provider Active Team Status: Active Member Role Status Dates Toby Quintana MD Primary Care Provider Active Team Status: Inactive Member Role Status Dates Toby Quintana MD Primary Care Provider Active Samuel Chatman II, MD Attending Provider Active 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 Start Date End Date Toby [...] August 12, 2024 End: August 12, 2024 Team Status: Active Member Role Status Dates Toby Quintana MD Primary Care Provider Active Start: September 06, 2024 Denis Bullock DO Attending Provider Active Start : September 06, 2024 Team Status: Active Member Role Status Dates Toby Quintana MD Primary Care Provider Active Start: September 07, 2024 Debbie Jeffers Attending Provider Active Start: Oc tober 2023 Team Status: Active Member Role Status Dates Toby Quintana MD Primary Care Provider Active Start: September 07, 2024 Sandi Walton CMA Attending Provider Active Start: September 07, 2024 Team Status: Active Member Role Status Dates Toby Quintana MD Primary Care Provider Active Start: September 07, 2024 Tushar Kearns DO Attending Provider Active Sta rt: September 07, 2024 Team Status: Active Member Role Status Dates Toby Quintana MD Primary Care Provider Active Start: September 09, 2024 Debbie Jeffers Attending Provider Active Start: Oc tober 2023 Team Status: Active Member Role Status Dates Toby Quintana MD Primary Care Provider Active Start: September 10, 2024 Debbie Jeffers Attending Provider Active Start: No [id number] Team Status: Active Member Role Status Dates Toby Quintana MD Primary Care Provider Active Start: September 11, 2024 Debbie Jeffers Attending Provider Active Start: No vember 2023 Team Status: Active Member Role Status Dates Toby Quintana MD Primary Care Provide r, Attending Provider Active Start: September 17, 2024 Team Status: Active Member Role Status Dates Toby Quintana MD Primary Care Provide r, Attending Provider Active Start: October 11, 2024 End: October 11, 2024 Team Status: Inactive Member Role Status Dates Toby Quintana MD Primary Care Provide r, Attending Provider Active Start: November 30, 2024 End: November 30, 2024 Team Status: Active Member Role Status Dates Iban Lu MD Specialist Active Evin Byers MD Specialist Active Team Status: Inactive Member Role Status Dates Toby Quintana MD Attending Provider Active St art: December 01, 2024 End: December 01, 2024 Team Status: Active Member Role Status Dates Iban Lu MD Specialist Active Evin Byers MD Specialist Active PHYSICIAN NO FAMILY Primary Care Provider Active Team Status: Inactive Member Role Status Dates Toby Quintana MD Attending Provider Active St art: December 01, 2024 End: December 01, 2024 PHYSICIAN NO FAMILY Primary Care Provider Active Start: December 01, 2024 End: December 01, 2024 Team Status: Inactive Member Role Status Dates PHYSICIAN NO FAMILY Primary Care Provider Active Start: December 07, 2024 End: December 07, 2024 Toby Quintana MD Attending Provider Active St art: December 07, 2024 End: December 07, 2024 Team Status: Inactive Member Role Status Dates PHYSICIAN NO FAMILY Primary Care Provider Active Start: December 13, 2024 End: December 13, 2024 Toby Quintana MD Attending Provider Active St art: December 13, 2024 End: December 13, 2024 Team Status: Inactive Member Role Status Dates Toby Quintana MD Attending Provider Active St art: December 13, 2024 End: December 13, 2024 Goals (unrecognized section and content) Goals [...] may be documented in an alternate section No data available for this sectionNot on filedocumented as of this encounterNot on filedocumented as of this encounterNot on filedocumented as of this encounter No data available for this section No data available for this section No data available for this section REASON FOR VISIT (unrecogniz ed section and content) Reason Comments Annual Exam 1yr Reason Comments (peripheral vascular disease)- Lower ext remity pain, bilate Specialty Diagnoses / Procedures Referred By Contac t Referred To Contact Vascular Surgery Diagnoses PVD (peripheral vascular disease) ([facility]) Lower extremity pain, bilateral Toby Quintana MD [address] [place] [address] [facility] [address] [place] [address] Referral ID Status Reason Start Date Expiration Date Visits Requested Visits Authorized [id number] Pending Review Specialty Services Required 05/10/2024 05/10/2025 1 FOR RECORDS PERTAINING TO PATIENTS WHO ARE [...] BE BASED ON THE PRIMARY CLINICAL RECORDS. [facility] [employer] provides no warranty or guarantee of the accuracy or completeness of information in this document.
--- NOTE | 2025-01-05 09:28 | XR_ITS ---
The [address] [address] Patient Name: INDERJIT MANN MRN: [id number] date: 1955 Sex: F Assigned Patient Location: [place] Current Patient Location: [place] Accession/Order Number: [id number] Exam Date: 01/05/2025 11:16 Report Date: 01/05/2025 11:19 At the request of: SHANTA ANGUIANO Procedure: XR abdomen 1V SINGLE VIEW ABDOMEN COMPARISON: CT lumbar spine 09/07/2024 CLINICAL DATA: Recurrent urinary tract infections. Supine views of the abdomen and pelvis were obtained. There is air within the stomach. There is also air within small and large bowel loops. There is mild colonic stool. The kidneys are partially obscured, greater on the left. No obvious radiopaque renal or ureteral stones are noted. No soft tissue masses are seen. There is slight dextroscoliotic curvature as well as postoperative and degenerative changes at the spine. There is prior cholecystectomy. XR/XR abdomen 1V IMPRESSION: NO DEFINITE RADIOPAQUE STONES. Impression dictated by: Shiloh Hernández M.D.01/05/2025 11:19 AM Dictation Location: [place] [address] Electronically authenticated by: [id number] Y Date: 01/05/2025 11:19
== END 2025-01-05 08:47 | disposition home or self-care (01) ==
LOC: US 08:46
PROVIDERS: PCP Family Medicine; Visit Provider Physician Assistant
DX: N39.0 Urinary tract infection, site not specified (principal)
CPT/HCPCS: 74018; 76775

== ENCOUNTER 2025-02-17 09:48 | Outpatient (OUT) | payer MEDICARE, SELFPAY ==
--- OUTSIDE RECORDS SUMMARY | 2025-02-17 10:05 | XMS_ITS | CCD ---
Author Organization [facility] Care Team Providers Care Sample Taker Operator Name Role Phone Toby Quintana Unavailable Unavailable Unavailable MD Toby Quintana Primary Care Provider Leeann Quintana Attending Provider Unavailable Unavailable BladeLeeann cody Unavailable DR SHALA [...] Unavailable QUINTANA, DR TOBY Schofield Admitting Unavailable OVERLAND PARK, DR CAITLYN Noe Consulting Unavailable QUINTANA, DR TOBY Schofield Attending Unavailable QUINTANA, DR TOBY Schofield Primary Care Unavailable QUINTANA, DR TOBY Schofield Consulting Unavailable REINECK, DR LUAREL Banks Admitting Unavailabl e QUINTANA, DR TOBY Schofield Primary Care Unavailable REINECK, DR LAUREL Banks Attending Unavailabl e REINECK, DR LAUREL Banks Consulting Unavailabl e QUINTANA, DR TOBY Schofield Primary Care Unavailable BLADES, LEEANN Referring Unavailable LAKSHMIPATHY ., NARENDRANATH Admitting Nanda vailable LAKSHMIPATHY ., NARABBEYATH Attending Nanda vailable MARIANO, DR TOBY Schofield Admitting Unavailable QUINTANA, DR TOBY Schofield Primary Care Unavailable QUINTANA, DR TOBY Schofield Attending Unavailable QUINTANA, DR TOBY Schofield Consulting Unavailable Mariano, Toby Unavailable MD Samuel Chatman II Attending Provider [phone] Samuel Chatman II Unavailable Dr. EVIN BYERS Attending Toby Pham Primary Care Unavaildidier Quintana, Dr. Toby Feliz Primary Care Unav ailable Lu, Dr. Iban Penn Referring Nanda heide Quintana, Dr. Toby Feliz Primary Care Unav ailable Lu, Dr. Iban Penn Attending Nanda Toby Ron MD Primary Care Provider [phone] IBAN LU Attending Unavailable TOBY QUINTANA Primary Care Unavailable Toby Quintana MD Attending Provider [phone] NO FAMILY, PHYSICIAN Primary Care Provider Unava ilable Toby Quintana Admitting Unavailable Toby Quintana Attending Unavailable NO FAMILY, PHYSICIAN Primary Care Unavailable Toby Quintana Attending Unavailable NON STAFF Primary Care Unavailable Toby Quintana Admitting Unavailable TOBY QUINTANA Primary Care Physician [phone] Unavailable Primary Care Provider Unavailabl e PHOEBE, SHANTA E Admitting Unavailable PHOEBE, SHANTA E Attending Unavailable TOBY QUINTANA Referring Unavailable PHOEBE, SHANTA E Attending Unavailable PHOEBE, SHANTA E Attending Unavailable PHOEBE, SHANTA E Attending Unavailable PHOEBE, SHANTA E Admitting Unavailable PHOEBE, SHANTA E Attending Unavailable LAURA RIZO Attending Unavail able PHOEBE SHANTA E Attending Unavailable Toby Quintana MD Attending Provider [phone] NO FAMILY, PHYSICIAN Primary Care Provider Unava ilable NON STAFF Primary Care Provider Unavailabl e Allergies Allergy Classification Reported Allergen(s) Allergy Type Date of Onset Reaction(s) Facility (6 sources) Sulfamethoxazole; Translations: [sulfa] Drug Allergy Rash, Swelling [address] Work Phone: (19 sources) Sulfonamides (Antibiotic); Translations: [SULFA (SULFONAMIDE ANTIBIOTICS)] Allergy to substance 07-23-20 17 Hives, Rash, Swelling [facility] Comment on above: Onset Date: 07/28/20 13 (20 sources) Sulfacetamide / Sulfur Drug Allergy rash [facility] Other (1 source) Morphine Drug Allergy [facility] (1 source) Quinolones (Antibiotic) Drug allergy (disorder) [facility] (2 sources) Sulfonamides (Antibiotic) Drug allergy (disorder) 08-06-20 13 [facility] (12 sources) Acetaminophen / oxyCODONE Drug Allergy 07-28-20 13 Unknown [facility] Other (12 sources) Meperidine Drug Allergy 07-28-20 13 Unknown [facility] Other (13 sources) Quinolones Drug allergy 07-28-20 Comment:Fluorq uinolones [facility] Other (13 sources) sulfADIAZINE Drug Allergy Unknown [facility] Other (13 sources) Substance with sulfonamide structure and antibacterial mechanism of action (substance) Drug allergy 07-28-20 13 Unknown [facility] Other (13 sources) Statins Depletion *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 Propensity to adverse reactions 07-28-20 13 [facility] Other (4 sources) Allergies Reconciled Propensity to adverse reactions [facility] Other (4 sources) patient allergy list reviewed by nurse or physicia Propensity to adverse reactions 07-15-20 Comment:Done [facility] Other (1 source) Acetaminophen / oxyCODONE Drug Allergy 07-28-20 13 [facility] Other (1 source) Meperidine Drug Allergy 07-28-20 13 [facility] Other (12 sources) Sulfacetamide; Translations: [sulfacetamide] Drug Allergy 12-30-19 24 [facility] (6 sources) Sulfonamide; Translations: [sulfa drugs] Drug allergy Eruption of skin (disorder) [facility] Medications Current Medications Medication Drug Class(es) Dates Sig (Normalized) Sig (Original) acetaminophen 325 mg / HYDROcodone bitartrate 5 mg oral tablet (20 sources) Opioid Agonist Start: 08-31-2021 End: 12-09-2023 take 1 tablet by mouth every four hours as needed HYDROcodone-acetami nophen ([place]) 5-325 mg tablet Take 1 tablet by [...] Days Active albuterol 0.83 mg/ml inhalation solution (8 sources) beta2-Adrenergic Agonist Start: 12-12-2024 take 2.5 mg by inhalation every four to six hours as needed for wheezing Albuterol Sulfate 2.5 mg /3 mL (0.083 %) solution for nebulization Active 2.5 MG INHALATION EVERY 4-6 HOURS as needed for shortness of breath or wheezing 90 December 12, 2024 1:00am Albuterol Sulfat e (2.5 MG/3ML) 0.083% 3 mL as needed Inhalation every 6 hrs Active Albuterol Sulfate 90 mcg/actuation HFA aerosol inhaler (4 sources) Start: 12-07-2024 take 1 puff(s) by inhalation every four to six hours as needed for wheezing Albuterol Sulfate 90 mcg/actuation HFA aerosol inhaler Active 2 PUFF INHALATION EVERY 4-6 HOURS as needed for shortness of breath or wheezing 6.7 December 07, 2024 1:00am Start: 12-07-2024 take 1 puff(s) by in halation every four to six hours as needed for wheezing Albuterol Sulfate 90 mcg/actuation HFA aerosol inhaler Active 2 PUFF INHALATION EVERY 4-6 HOURS as needed for shortness of breath or wheezing 6.7 December 07, 2024 12:00am ALPRAZolam 1 mg oral tablet (20 sources) Benzodiazepine Start: 09-16-2024 End: 10-11-2024 take 1 tablet by mouth once daily at bedtime Alprazolam 2 mg tablet Discontinued 2 MG PO Daily at bedtime September 29, 2024 12:15pm October 11, 2024 11:00pm Start: 01-16-2024 End: 01-17-2025 take 1 tablet by mouth twice daily as needed for anxiety Alprazolam 1 mg tablet Active 1 MG PO Twice daily as needed for anxiety 60 January 17, 2025 10:39am Start: 12-08-2023 take 1 tablet by valentin [...] 11:14am take 1 tablet by valentin th once [...] Apr, Active take 1 capsule by mo [facility] every eight hours Amoxicillin 500 MG 1 [...] Active 0 .ROUTE .COMPLEX October 12, 2024 5:30pm TAKE 1 TABLET BY MOUTH IN THE MORNING and 2 (TWO) tablets IN THE EVENING Start: 06-07-2024 End: 10-12-2024 take 1 tablet by mouth once daily in the morning Atenolol 25 mg tablet Discontinued 25 MG PO Three times daily June 07, 2024 2:17pm October 12, 2024 5:30pm 1 po qam; 2 po qpm Start: 01-16-2024 End: 06-07-2024 take 2 tablets by mouth once daily at bedtime Atenolol 25 mg tablet Discontinued 50 MG PO Daily at bedtime 60 April 02, 2024 12:17pm June 07, 2024 2:18pm Start: 01-16-2024 End: 06-07-2024 take 50 mg by mouth once daily at bedtime Atenolol Discontinued 50 MG PO Daily at bedtime April 02, 2024 12:17pm June 07, 2024 [...] Tablet Discontinued 25 MG PO Daily April 08, 2019 12:00am January 16, 2024 11:15am Start: 07-04-2017 End: 01-16-2024 take 1 tablet by mouth once daily in the evening Atenolol 50 mg Tablet Discontinued 50 MG PO Every evening April 08, 2019 12:00am January 16, 2024 11:15am ciprofloxacin 500 mg oral tablet (5 sources) Quinolone Antimicrobial Start: 12-30-2024 End: 01-09-2025 take 1 tablet by mouth every twelve hours Cipro 500 mg Tab 500 mg = 1 tab(s), Oral, q12hr, X 10 day(s), # 20 tab(s), Refills(s) 0, Pharmacy: [facility]/pharmacy #[id number], 170, cm, 12/17/24 11:06:00 EST, Height/Length Dosing, 100, kg, 12/17/24 11:06:00 EST, Weight Dosing Start Date: 12/30/24 Stop Date: 01/09/25 Status: Ordered Start: 12-03-2024 End: 02-08-2025 take 1 tablet by mouth twice daily Ciprofloxacin Hcl 250 mg tablet Discontinued 250 MG PO Twice daily December 03, 2024 1:00am February 08, 2025 8:58am doxycycline hyclate 100 mg oral tablet (10 sources) Tetracycline-class Drug Start: 12-17-2024 take 100 mg by mouth twice daily doxycycline 100 mg, Oral, BID, Refills(s) 0 Start Date: 12/17/24 Status: Ordered Start: 12-16-2024 End: 02-08-2025 take 1 capsule by mouth twice daily Doxycycline Hyclate 100 mg capsule Discontinued 100 MG PO Twice daily December 16, 2024 1:00am February 08, 2025 8:59am Start: 10-12-2024 End: 10-14-2024 take 1 tablet by mouth twice daily Doxycycline Hyclate 100 mg tablet Discontinued 100 MG PO Twice daily October 12, 2024 1:00am October 14, 2024 5:54pm Fish Oil-Krill Oil - (2 sources) Fish [...] 10 mg by mouth nightly. Active omega 5-xbn-icp-fish oil 360 mg-108 mg- 180 mg-1,200 mg capsule (1 source) take 1 capsule by mouth once daily omega 9-qkq-rhe-fish oil 360 mg-108 mg- 180 mg-1,200 mg capsule Take 1 capsule by mouth once daily. 0 Active 24 hr oxybutynin chloride 15 mg extended release oral tablet (11 sources) Cholinergic Muscarinic Antagonist Start: take 1 tablet by mouth every twenty-four hours Oxybutynin Chloride 15 mg tablet extended release 24hr Active MG PO February 08, 2025 12:00am Start: 11-30-2024 End: 02-08-2025 take 10 mg by mouth once daily oxybutynin 10 mg, Oral, Daily, Refills(s) 0 Start Date: 12/17/24 Status: Ordered traMADol hydrochloride 50 mg oral tablet (2 sources) Opioid Agonist Start: 09-22-2023 take 1 tablet by mouth twice daily as needed traMADol HCl 50 MG 1 tablet as needed Orally bid prn for 30 days 13 Nov, 2023 Active Completed/Discontinued Medications Medication Drug Class(es) Dates Sig (Normalized) Sig (Original) acetaminophen 325 mg / oxyCODONE hydrochloride 5 mg oral tablet (11 sources) Opioid Agonist Start: 12-30-2023 End: 01-06-2024 take 1 tablet by mouth every four hours as needed Oxycodone-Acetami nophen 5-325 mg tablet Discontinued 1 TAB PO Every 4 hours as needed December 30, 2023 1:00am January 06, 2024 2:13pm cephalexin 500 mg oral capsule (12 sources) Cephalosporin Antibacterial Start: 10-14-2024 End: 11-30-2024 take 1 capsule by mouth three times daily Cephalexin 500 mg capsule Discontinued 500 MG PO Three times daily 30 05October 22, 2024 11:00am November 30, 2024 2:52pm DULoxetine 60 mg delayed release oral capsule (16 sources) Serotonin and Norepinephrine Reuptake Inhibitor Start: 04-08-2019 End: 12-30-2023 take 1 capsule by mouth once daily Duloxetine 60 mg Capsule,Delayed Release(Dr/Ec) Discontinued 60 MG PO Daily April 08, [...] DO Active furosemide 20 mg oral tablet (8 sources) Loop Diuretic Start: 04-23-2024 End: 04-30-2024 take 1 tablet by mouth once daily Furosemide 20 mg tablet Discontinued 20 MG PO Daily April 23, 2024 12:00am April 30, 2024 9:38am Lidocaine (20 sources) Antiarrhythmic, Amide Local Anesthetic Start: 08-20-2023 Lidocaine Aug, 30 mg Start: 05-08-2023 Lidocaine 29 J un, 2022 30 mg Start: 02-07-2023 Start: 02-07-2023 Lidocaine 31 M ar, 2023 30 mg naproxen 500 mg oral tablet (13 sources) Nonsteroidal Anti-inflammatory Drug Start: 04-08-2019 End: 12-30-2023 take 1 tablet by mouth twice daily Naproxen 500 mg Tablet Discontinued 500 MG PO Twice daily April 08, 2019 12:00am December 30, 2023 11:07am ondansetron 4 mg disintegrating oral tablet (11 sources) Serotonin-3 Receptor Antagonist Start: 10-14-2024 End: 12-07-2024 take 1 tablet by mouth every eight hours as needed for nausea and vomiting Ondansetron 4 mg tablet,disintegr ating Discontinued 4 MG PO Q8H as needed for nausea and vomiting October 14, 2024 1:00am December 07, 2024 11:55am Start: 02-07-2023 take 1 tablet by valentin [...] 5 MG PO Every 6 hours 28 7 January 06, 2024 April 23, 2024 2:57pm [...] pain. Active take 1 capsule by mo [facility] every six hours as needed oxyCODONE (Oxy-IR) 5 mg immediate release capsule Take 1 capsule (5 mg) by mouth every 6 hours if needed for severe pain (7 - 10). 0 Active predniSONE 20 mg oral tablet (10 sources) Start: 01-19-2024 End: 02-10-2024 take 1 tablet by mouth twice daily Prednisone 20 mg tablet Discontinued 20 MG PO Twice daily January 19, 2024 12:00am February 10, 2024 1:10pm pregabalin 50 mg oral capsule (20 sources) Start: 09-15-2024 End: 09-16-2024 take 2 capsules by mouth three times daily Pregabalin (Lyrica) 25 mg capsule Discontinued 50 MG PO Three times daily 02 08September 15, 2024 1:00am September 16, 2024 9:14am Start: 08-17-2024 End: 12-07-2024 take 1 capsule by mouth three times daily Pregabalin (Lyrica) 50 mg capsule Discontinued 50 MG PO Three times daily 90 October 11, 2024 10:59pm December 07, 2024 11:55am Start: 08-12-2024 End: 08-17-2024 take 1 capsule by mouth twice daily Pregabalin (Lyrica) 75 mg capsule Discontinued 75 MG PO Twice daily 60 August 12, 2024 12:00am August 17, 2024 4:07pm take 1 capsule by mo [facility] every twelve hours Lyrica 50 MG 1 capsule Orally Twice a day Active promethazine hydrochloride 12.5 mg oral tablet (19 sources) Phenothiazine Start: 01-16-2024 End: 02-10-2024 take 1 tablet by mouth every six hours as needed Promethazine 12.5 mg tablet Discontinued 12.5 MG PO Every 6 hours as needed January 16, 2024 1:00am February 10, 2024 [...] Apr, Not-Taking tiZANidine 4 mg oral tablet (13 sources) Central alpha-2 Adrenergic Agonist Start: 01-19-2024 End: 02-10-2024 take 1 tablet by mouth every eight hours as needed Tizanidine 4 mg tablet Discontinued 4 MG PO Every 8 hours as needed for muscle spasticity January 19, 2024 12:00am February 10, 2024 1:10pm take 1 tablet by valentin th every six hours as needed tiZANidine (ZANAFLEX) 2 mg tablet Take 2 mg by mouth every 6 (six) hours as needed for muscle spasms. Active traZODone hydrochloride 50 mg oral tablet (6 sources) Serotonin Reuptake Inhibitor Start: 11-30-2024 End: 12-07-2024 take 1 tablet by mouth once daily at bedtime Trazodone 50 mg tablet Discontinued 50 MG PO Daily at bedtime November 30, 2024 1:00am December 07, 2024 11:55am triamcinolone acetonide 40 mg/ml injectable suspension (20 [...] 7 07-23-2017 Chronic Chronic ulcer of skin (14 sources) Ulcer of lower extremity; Translations: [Non-pressure [...] 11-30-2024 Chronic Genitourinary symptoms and ill-defined conditions (20 sources) Dysuria; Translations: [Dysuria] Onset: 5 11-30-2024 [...] diagnosis of hypertension] Episodic Other circulatory disease (8 sources) Abnormal peripheral pulse; Translations: [Other specified [...] Onset: 3 Episodic Other connective tissue disease (8 sources) Pain in lower limb; Translations: [Pain [...] chronic pain Chronic Other nervous system disorders (8 sources) Cold feet; Translations: [Unspecified disturbances of [...] Onset: 2 Episodic Other non-traumatic joint disorders (20 sources) Pain in right knee; Translations: [Right knee pain] Episodic Other non-traumatic joint disorders (20 sources) Pain in left knee; Translations: [Left knee pain] Episodic Other non-traumatic joint disorders (12 sources) Arthralgia of the lower leg; Translations: [Pain in right knee] Onset: 9 Episodic Other non-traumatic joint disorders (1 source) Joint pain; Translations: [Pain in unspecified joint] 02-08-2025 Episodic Other non-traumatic joint disorders (1 source) Pain in unspecified joint; Translations: [Pain in joint, site unspecified] 02-08-2025 Episodic Other nutritional; endocrine; and metabolic disorders [...] Onset: 4 Episodic Peripheral and visceral atherosclerosis (10 sources) Peripheral vascular disease, unspecified; Translations: [Peripheral [...] organs] Onset: 3 Episodic Residual codes; unclassified (10 sources) Insomnia; Translations: [Insomnia, unspecified] Onset: 9 09-16-2024 Episodic Residual codes; unclassified (4 sources) Postmenopausal state; Translations: [Asymptomatic menopausal state] Episodic Residual codes; unclassified (8 sources) Insomnia, unspecified; Translations: [Insomnia, unspecified] 11-30-2024 [...] Episodic Other aftercare (1 source) Other intermediate manager (current) drug therapy; Translations: [OTH DATABASE ADMINISTRATION MANAGER CURRENT DRUG THERAPY] Onset: 07-23-2022 Episodic Other [...] Test Name Value Interpretation Reference Range Facility Ambulatory Visit Summaryon 0 01-21-2025 Ambulatory Visit Summary Ambulatory Visit Summary JOHNATHAN ADRIANA Anna :1955 Visit Date:01/21/2025 Ambulatory Visit Instructions Your Diagnosis Recurrent UTI Incontinence without sensory awareness Your Care Team Attending Physician - LAURA RIZO MD Primary Care Physician - TOBY QUINTANA MD This Is Your Medications List oxybutynin (oxybutynin 15 mg ER Tab) Contact prescribing physician if questions or concerns alprazolam atenolol Procedures Performed Flexible cystoscope (01/21/2025), Cholecystectomy, Gallbladder, Hand surgery care plan, Hysterectomy, Procedure on back, Rib resection and open drainage of pleural cavity. Discharge Vitals Heart Rate (Peripheral) 81 Respiratory Rate 16 Blood Pressure 136/84 Height 170 cm Height 67 in Weight 100 kg Weight 220.462 lb BMI 34.6 What to do next Scheduled Follow-Up Appointments Friday 2:40 PM EDT With: SHANTA SANDHU PA-C Where: [facility] [address] You Need to Schedule the Following Appointments Follow Up with VICKY SAMAYOA, MILI SANCHEZ When: Where: Medications What How Much When Instructions New oxybutynin (oxybutynin 15 mg ER Tab) 1 Tablets By Mouth Every day Refills: 4 Pickup at [facility]/pharmacy #[id number] Unchanged alprazolam By Mouth 3 times a day Contact prescribing physician if questions or concerns Unchanged atenolol By Mouth 2 times a day Contact prescribing physician if questions or concerns Pharmacy Information [facility]/pharmacy #[id number]: [address] [place], [place] [phone] Medications and Immunizations Administered Given lidocaine Top 2% Gel w/Appl 6 mL, 6 mL, Topical. For: Recurrent UTI, Incontinence without sensory awareness Allergies sulfa drugs (Rash) Problems Ongoing - Any problem that you are currently receiving treatment for. Incontinence without sensory awareness Recurrent UTI UTI (urinary tract infection) Patient Survey You may receive a survey via text or e-mail asking about your office visit. Please share your experience with us by completing your survey. We appreciate your feedback and thank you for choosing us for your care. Education Materials Overactive Bladder, Adult Overactive bladder is a [...] devices, such as: ? Biofeedback. This uses (more content not included)... Normal [facility] Urology Office/Clinic Noteon 01-21-2025 Urology Office/Clinic Note Urology Office/Clinic Note Chief Complaint cysto HPI Staff 69 year old female patient here for cysto. History of Present Illness Tests reviewed: I have reviewed the previous health record information and history for this patient from SILVIO Jones. I have reviewed and verified the staff HPI to be accurate for this encounter. Review of Systems PHQ Score Initial Depression Screen Score: 0 SCORE ROS - Provider Constitutional: denies weight loss, denies hot flashes. Eyes: denies eye problems. Gastrointestinal: denies nausea, denies vomiting. Cardiovascular: denies chest pain or angina. Integumentary: no dryness Musculoskeletal: denies musculoskeletal symptoms. ENMT: denies otolaryngeal symptoms. Respiratory: no shortness of breath. Heme/Lymph: denies easy bleeding tendency, denies easy bruising tendency. Psychiatric: no confusion, no anxiety. Genitourinary: See HPI. Physical Exam Vitals & Measurements HR: 81(Peripheral) RR: 16 BP: 136/84 HT: 67 in HT: 170 cm WT: 100 kg WT: 220.462 lb BMI: 34.6 General Appearance: alert, no distress, well nourished, well developed female. Procedure Operative Information Anesthesia Type: Local Procedure: Local Cystoscopy Complications: None Surgical risks, benefits, details of the procedure have been explained to the patient. Full informed consent has been obtained. Intraoperative Information Prepped: Patient is brought back to the endoscopy suite. Patient is placed in supine/frog leg position. Patient prepped in the usual fashion with Betadine solution. 2% Xylocaine Jelly is placed per Urethra. After waiting several minutes, the Cystoscope is introduced. 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 The patient tolerated it well. Postoperative Information Patient is discharged home with antibiotic coverage. Follow up arranged. Assessment/Plan Adriana 69 year old female patient here for cysto. 1. Recurrent UTI (N39.0: Urinary tract infection, site not specified) Pt had cystoscopy done IO today w/o complications. UCx 12/17/24 - Was treated for UTI during hospital admission w Cipro 09/07. Received Doxy, and 2 rounds of Keflex for LE wound 10/12, 10/14, 10/22. 12/03/24 - Klebsiella urine cx, tx'd w Cipro x 7d. 12/14/24 - Staph Epi urine cx, tx'd w Doxy x 7d. Just started today. Nontoxic appearing. No systemic sx. KUB 01/05/25 [facility] - no definite radiopaque stones. DAX 01/05/25 [facility] - no obstructive uropathy. No hx frequent UTIs. No hx stones. Not diabetic. PVR low. Does have UUI and FI but reports good hygiene. 2. Incontinence without sensory awareness (N39.42: Incontinence [...] for SNM d/t urinary and fecal incontinence. Discussed Botox injections, patient is not interested at this time. Discussed increasing Oxybutynin from 10mg to 15mg. SEs were discussed. Pt knows to contact the office with bothersome SEs. or worsening sxs. Follow up 3monthns or sooner if needed. Pt understands and agrees with plan. 70 y.o F w/ recurrent UTIs, urgency incontinence. Has been on oxybutnin but states no improvement with it. Discussed doing botox but she is not interested. Understands risks. will follow up in 3 months for reassessment Follow-up With When Contact Information VICKY SAMAYOA, LAURA, SUMITL Additional Instructions: Follow up 3monthns or sooner if needed Patient Education Overactive Bladder, Adult I, Yaya Fung, personally scribed for Dr. Laura Rizo on 01/21/2025 08:25:35. . Portions of this record may have been created with voice recognition artificial intelligence software, specifically [employer], [employer] and or [employer]. Substitutions may have occurred due to the inherent limitations of voice recognition and artificial intelligence software. Documentation recorded by the scribe, Yaya Fung, accurately reflects the services(s) I performed and decisions made by me. Authenticated by Dr. Rizo on 01/21/2025 08:28:07. Problem List/Past Medical History Ongoing Incontinence without sensory awareness Recurrent UTI UTI (urinary tract infection) Historical No qualifying data Procedure/Surgical History Flexible cystoscope (01/21/2025), Cholecystectomy, Gallbladder, Hand surgery care plan, Hysterectomy, Procedure on back, Rib resection and open drainage of pleural cavity. Med (more content not included)... Normal [facility] Comment on above: Result Comment: Elec tronically Signed By: LAURA RIZO MD\.br\Date and Time Signed: 01/21/25 08:34 EDT\.br\Electronically Co-Signed By: Yaya Fung.br\Date and Time Co-Signed: 01/21/25 08:26 EDT Urology Office/Clinic Noteon 01-03-2025 Urology Office/Clinic Note [...] With When Contact Information [facility] [address] [place] [place] [address] Business (1) Additional Instructions: our graphics production specialist will be contacting you for follow-up Patient [...] Immunizations Vaccine Date Status Comments SARS-CoV-2 (COVID-19) [id number] 09/06/2022 Recorded SARS-CoV-2 (COVID-19) mRNA BNT-162b2 vax 07/02/2021 Recorded 2024-12-17: [id number] SARS-CoV-2 (COVID-19) mRNA BNT-162b2 vax 06/11/2021 Recorded 2024-12-17: [id number] influenza virus vaccine, inactivated 09/14/2013 Recorded Normal [facility] Comment on above: Result Comment: Elec tronically Signed By: PHOEBE LOWERY, SHANTA Schofield\.br\Date and Time Signed: 01/03/25 12:53 EST C [...] Locations R1: This test was performed at: [facility], [address] [place] [address], [phone] , [place], Normal [facility] Comment on above: Performed By: #### 2 [id number] #### [facility] [address] [place] [id number] Ambulatory Visit Summaryon 0 12-28-2024 Ambulatory Visit [...] SHANTA SANDHU PA-C Where: [facility] [address] [place] [address]- Medications What How Much When Instructions Unchanged [...] for choosing us for your care. Normal [facility] Urine Cultureon 12-13-2024 Bacteria identified Cx Nom (U) ORGANISM: Staphylococcus epidermidis (O:STAEPI) [place] Count >100,000 Aerobic OSCAR Charge (PCMIC38) --- [...] RESISTANT TO ALL B-LACTAM DRUGS. PERFORMED BY: [place] [address] PATHOLOGIST FITNESS WORKER CHETNA PORTILLO M.D. Normal [facility] Comment on above: Performed By: #### C UU #### [address] Urine cultureOrdered By: Kaila Quintana on 12-13-2024 Bacteria identified Cx Nom (U) Abnormal [facility] Appearance of UrineOrdered B y: Toby Quintana on 12-01-2024 Appearance (U) Urine appearance Clear [facility] Bacteria [Presence] in Urine by AutomatedOrdered By: Toby Quintana on 12-01-2024 Bacteria Auto Ql (U) Bacteria [Presence] in Urine by Automated None Seen [facility] Bilirubin Test strip Ql (U)O rdered By: Toby Quintana on 12-01-2024 Bilirubin Ql (U) Bilirubin.total [Presence] in Urine by Test strip Negative [facility] Color Auto (U)Ordered By: Vincenzo Quintana on 12-01-2024 Color (U) Color of Urine by Auto Yellow [facility] Dipstick and Microscopicon 0 12-01-2024 Appearance (U) Clear Normal Clear [facility] Comment on above: Order Comment: Name Collection Type:: Voided Performed By: #### A DDONUAPLUS, CUU #### [place] [address] [place] Bacteria,Urine None Seen Normal None Seen [facility] Comment on above: Order Comment: Name Collection Type:: Voided Performed By: #### A DDONUAPLUS, CUU #### [place] [id number] [place] Bilirubin,Urine Negative Normal Negative [facility] Comment on above: Order Comment: Name Collection Type:: Voided Performed By: #### A DDONUAPLUS, CUU #### [place] [address] [place] Color (U) Yellow Normal Yellow [facility] Comment on above: Order Comment: Name Collection Type:: Voided Performed By: #### A DDONUAPLUS, CUU #### [place] [id number] [place] Glucose Ql (U) Normal Normal Normal [facility] Comment on above: Order Comment: Name Collection Type:: Voided Performed By: #### A DDONUAPLUS, CUU #### [place] [id number] [place] Hyaline Casts,Urine None Normal 0-8 [facility] Comment on above: Order Comment: Name Collection Type:: Voided Performed By: #### A DDONUAPLUS, CUU #### [place] [id number] [place] Ketones Ql (U) Negative Normal Negative [facility] Comment on above: Order Comment: Name Collection Type:: Voided Performed By: #### A DDONUAPLUS, CUU #### [address] Leukocyte esterase Test strip Ql (U) 2+ High Negative [facility] Comment on above: Order Comment: Name Collection Type:: Voided Performed By: #### A DDONUAPLUS, CUU #### [address] Mucus,Urine Rare Normal [facility] Comment on above: Order Comment: Name Collection Type:: Voided Result Comment: PERF ORMED BY: [place] [address] PATHOLOGIST FITNESS WORKER CHETNA PORTILLO M.D. Performed By: #### A DDONUAPLUS, CUU #### [address] Nitrite,Urine Negative Normal Negative [facility] Comment on above: Order Comment: Name Collection Type:: Voided Performed By: #### A DDONUAPLUS, CUU #### [address] Occult Blood,Urine Negative Normal Negative [facility] Comment on above: Order Comment: Name Collection Type:: Voided Result Comment: PERF ORMED BY: [place] [address] PATHOLOGIST FITNESS WORKER CHETNA PORTILLO M.D. Performed By: #### A DDONUAPLUS, CUU #### [address] pH (U) 6.5 [pH] Normal 5.0-9.0 [facility] Comment on above: Order Comment: Name Collection Type:: Voided Performed By: #### A DDONUAPLUS, CUU #### [address] Protein,Urine Negative Normal Negative [facility] Comment on above: Order Comment: Name Collection Type:: Voided Performed By: #### A DDONUAPLUS, CUU #### [place] [id number] [place] RBC,Urine 1 [HPF] Normal 0-4 [facility] Comment on above: Order Comment: Name Collection Type:: Voided Performed By: #### A DDONUAPLUS, CUU #### [address] Specificy [place],Urine 1.017 Normal 1.001-1.030 [facility] Comment on above: Order Comment: Name Collection Type:: Voided Performed By: #### A DDONUAPLUS, CUU #### [address] Squamous Epithelial Cell,Urine 1 [HPF] Normal 0-2 [facility] Comment on above: Order Comment: Name Collection Type:: Voided Performed By: #### A DDONUAPLUS, CUU #### [address] Urobilinogen,Urine 3 mg/dL High Normal [facility] Comment on above: Order Comment: Name Collection Type:: Voided Performed By: #### A DDONUAPLUS, CUU #### [address] WBC,Urine 10 [HPF] High 0-4 [facility] Comment on above: Order Comment: Name Collection Type:: Voided Performed By: #### A DDONUAPLUS, CUU #### [address] Epithelial cells.squamous [# /area] in Urine sediment by Automated countOrdered By: Toby Quintana on 12-01-2024 Epithelial cells.squamous Auto (Urine sed) [#/Area] Epithelial cells.squamous [#/area] in Urine sediment by Automated count 0-2 [facility] Erythrocytes [#/area] in Uri ne sediment by Automated countOrdered By: Toby Quintana on 12-01-2024 RBC Auto (Urine sed) [#/Area] Erythrocytes [#/area] in Urine sediment by Automated count 0-4 [facility] Glucose [Mass/volume] in Uri ne by Test stripOrdered By: Toby Quintana on 12-01-2024 Glucose Test strip (U) [Mass/Vol] Glucose [Mass/volume] in Urine by Test strip Normal [facility] Hemoglobin Test strip Ql (U) Ordered By: Toby Quintana on 12-01-2024 Hemoglobin Ql (U) Hemoglobin [Presence ] in Urine by Test strip Negative [facility] Hyaline casts [#/area] in Ur ine sediment by Automated countOrdered By: Toby Quintana on 12-01-2024 Hyaline casts Auto (Urine sed) [#/Area] Hyaline casts [#/area] in Urine sediment by Automated count 0-8 [facility] Ketones Test strip Ql (U)Ord ered By: Toby Quintana on 12-01-2024 Ketones Ql (U) Ketones [Presence] i n Urine by Test strip Negative [facility] Leukocyte esterase [Presence ] in Urine by Test stripOrdered By: Toby Quintana on 12-01-2024 Leukocyte esterase Test strip Ql (U) Leukocyte esterase [Presence] in Urine by Test strip High Negative [facility] Leukocytes [#/area] in Urine sediment by Automated countOrdered By: Toby Quintana on 12-01-2024 WBC Auto (Urine sed) [#/Area] Leukocytes [#/area] in Urine sediment by Automated count High 0-4 [facility] Mucus [Presence] in Urine by AutomatedOrdered By: Toby Quintana on 12-01-2024 Mucus Auto Ql (U) Mucus [Presence] in Urine by Automated [facility] Nitrite Test strip Ql (U)Ord ered By: Toby Quintana on 12-01-2024 Nitrite Ql (U) Nitrite [Presence] i n Urine by Test strip Negative [facility] Protein Test strip (U) [Mass /Vol]Ordered By: Toby Quintana on 12-01-2024 Protein (U) [Mass/Vol] Protein [Mass/volume] in Urine by Test strip Negative [facility] Specific gravity Test strip (U) [Rel density]Ordered By: Toby Quintana on 12-01-2024 Specific gravity (U) [Rel density] Specific gravity of Urine by Test strip 1.001-1.030 [facility] Urine Cultureon 12-01-2024 Bacteria identified Cx Nom (U) ORGANISM: Klebsiella aerogenes (O:KLEAER) [place] Count >100,000 Aerobic OSCAR Charge (NMIC56) --- SUSCEPTIBILITY -- ORGANISM: O:TAMIKO ANTIBIOTIC INTERPRETATION OSCAR Amikacin S <16 Aztreonam [...] RESISTANT TO ALL B-LACTAM DRUGS. PERFORMED BY: [place] [address] PATHOLOGIST FITNESS WORKER CHETNA PORTILLO M.D. Normal [facility] Comment on above: Performed By: #### A CAROLINA CISNEROS #### [address] Urine cultureOrdered By: Kaila Quintana on 12-01-2024 Bacteria identified Cx Nom (U) Abnormal [facility] Urobilinogen Test strip (U) [Mass/Vol]Ordered By: Toby Quintana on 12-01-2024 Urobilinogen (U) [Mass/Vol] Urobilinogen [Mass/volume] in Urine by Test strip High Normal [facility] pH Test strip (U)Ordered By: Toby Quintana on 12-01-2024 pH (U) pH of Urine by Test strip 5.0-9.0 [facility] Basophils Auto (Bld) [#/Vol] on 09-11-2024 Basophils (Bld) [#/Vol] Automated basophil count 0.0-0.1 [facility] Basophils/100 WBC Auto (Bld) on 09-11-2024 Basophils/100 WBC (Bld) Automated basophil % 0.2-2.0 [facility] Eosinophils/100 WBC Auto (Bl d)on 09-11-2024 Eosinophils/100 WBC (Bld) Automated eosinophil % High 0.9-7.0 [facility] Erythrocyte distribution wid th Auto (RBC) [Ratio]on 09-11-2024 Erythrocyte distribution width (RBC) [Ratio] Erythrocyte distribution width [Ratio] by Automated count 11.0-15.0 [facility] Estimated glomerular filtrat ion rate (GFR) non- Americanon 09-11-2024 GFR/1.73 sq M.predicted among non-blacks MDRD (S/P/Bld) [Vol rate/Area] Estimated glomerular filtration rate (GFR) non- >=60 mL/min/1.73m 2 [facility] Hematocrit Auto (Bld) [Volum e fraction]on 09-11-2024 Hematocrit (Bld) [Volume fraction] Hematocrit [Volume Fraction] of Blood by Automated count 36.0-48.0 [facility] Hemoglobin [Mass/volume] in Bloodon 09-11-2024 Hemoglobin (Bld) [Mass/Vol] Hemoglobin [Mass/volume] in Blood Low 12.0-16.0 [facility] Laboratory - Chemistry and C hemistry - challengeon 09-11-2024 Calcium [Mass/Vol] 8.4 mg/dL Low 8.5-10.1 [facility] Chloride [Moles/Vol] 103 mmol/L 98-107 [facility] CO2 [Moles/Vol] 30.6 mmol/L 21.0-32.0 [facility] Creatinine [Mass/Vol] 0.61 mg/dL 0.55-1.02 [facility] GFR/1.73 sq M.predicted MDRD (S/P/Bld) [Vol rate/Area] mL/min/{1.73_m2} >=60 mL/min/1.73m 2 [facility] Glucose [Mass/Vol] 105 mg/dL 74-106 [facility] Potassium [Moles/Vol] 3.8 mmol/L 3.5-5.1 [facility] Sodium [Moles/Vol] 141 mmol/L 136-145 [facility] Urea nitrogen [Mass/Vol] 8.0 mg/dL 7.0-18.0 [facility] Urea nitrogen/Creatinine [Mass ratio] 13.1 mg/mg [facility] Laboratory - Hematology and Cell countson 09-11-2024 Immature granulocytes/100 WBC (Bld) 0.4 % 0.0-0.5 [facility] Leukocytes [#/volume] correc wanda for nucleated erythrocytes in Blood by Automated counon 09-11-2024 WBC corrected for nucl RBC Auto (Bld) [#/Vol] Leukocytes [#/volume] corrected for nucleated erythrocytes in Blood by Automated coun 4.0-11.0 [facility] Lymphocytes Auto (Bld) [#/Vo l]on 09-11-2024 Lymphocytes (Bld) [#/Vol] Lymphocytes [#/volume] in Blood by Automated count Low 1.2-3.8 [facility] Lymphocytes/100 WBC Auto (Bl d)on 09-11-2024 Lymphocytes/100 WBC (Bld) Lymphocytes/100 leukocytes in Blood by Automated count 20.5-60.0 [facility] MCH Auto (RBC) [Entitic mass ]on 09-11-2024 MCH (RBC) [Entitic mass] MCH [Entitic mass] by Automated count 26.7-34.0 [facility] MCHC Auto (RBC) [Mass/Vol]on 09-11-2024 MCHC (RBC) [Mass/Vol] MCHC [Mass/volume] by Automated count 29.9-35.2 [facility] MCV Auto (RBC) [Entitic vol] on 09-11-2024 MCV (RBC) [Entitic vol] MCV [Entitic volume] by Automated count 81.0-99.0 [facility] Monocytes Auto (Bld) [#/Vol] on 09-11-2024 Monocytes (Bld) [#/Vol] Automated blood monocyte count 0.3-0.8 [facility] Monocytes/100 WBC Auto (Bld) on 09-11-2024 Monocytes/100 WBC (Bld) Automated monocyte % High 1.7-12.0 [facility] Neutrophils Auto (Bld) [#/Vo l]on 09-11-2024 Neutrophils (Bld) [#/Vol] Neutrophils [#/volume] in Blood by Automated count 1.4-6.5 [facility] Neutrophils/100 WBC Auto (Bl d)on 09-11-2024 Neutrophils/100 WBC (Bld) Automated neutrophil % 43.0-75.0 [facility] No Panel Informationon 09-11 Eosinophils # (Auto) 0.4 10 3/uL 0.0-0.7 [facility] Immature Granulocyte # (Auto) 0.02 10 3/uL 0.00-0.03 [facility] Platelet mean volume Auto (B ld) [Entitic vol]on 09-11-2024 Platelet mean volume (Bld) [Entitic vol] Platelet mean volume [Entitic volume] in Blood by Automated count 9.5-13.5 [facility] Platelets Auto (Bld) [#/Vol] on 09-11-2024 Platelets (Bld) [#/Vol] Platelets [#/volume] in Blood by Automated count 150-450 [facility] RBC Auto (Bld) [#/Vol]on RBC (Bld) [#/Vol] Erythrocytes [#/volume] in Blood by Automated count 4.20-5.40 [facility] Serum or plasma anion gap de terminationon 09-11-2024 Anion gap [Moles/Vol] Serum or plasma anion gap determination [facility] Basophils Auto (Bld) [#/Vol] on 09-10-2024 Basophils (Bld) [#/Vol] Automated basophil count 0.0-0.1 [facility] Basophils/100 WBC Auto (Bld) on 09-10-2024 Basophils/100 WBC (Bld) Automated basophil % 0.2-2.0 [facility] Eosinophils/100 WBC Auto (Bl d)on 09-10-2024 Eosinophils/100 WBC (Bld) Automated eosinophil % 0.9-7.0 [facility] Erythrocyte distribution wid th Auto (RBC) [Ratio]on 09-10-2024 Erythrocyte distribution width (RBC) [Ratio] Erythrocyte distribution width [Ratio] by Automated count 11.0-15.0 [facility] Estimated glomerular filtrat ion rate (GFR) non- Americanon 09-10-2024 GFR/1.73 sq M.predicted among non-blacks MDRD (S/P/Bld) [Vol rate/Area] Estimated glomerular filtration rate (GFR) non- >=60 mL/min/1.73m 2 [facility] Hematocrit Auto (Bld) [Volum e fraction]on 09-10-2024 Hematocrit (Bld) [Volume fraction] Hematocrit [Volume Fraction] of Blood by Automated count 36.0-48.0 [facility] Hemoglobin [Mass/volume] in Bloodon 09-10-2024 Hemoglobin (Bld) [Mass/Vol] Hemoglobin [Mass/volume] in Blood 12.0-16.0 [facility] Laboratory - Chemistry and C hemistry - challengeon 09-10-2024 Calcium [Mass/Vol] 8.9 mg/dL 8.5-10.1 [facility] Chloride [Moles/Vol] 103 mmol/L 98-107 [facility] CO2 [Moles/Vol] 31.4 mmol/L 21.0-32.0 [facility] Creatinine [Mass/Vol] 0.73 mg/dL 0.55-1.02 [facility] GFR/1.73 sq M.predicted MDRD (S/P/Bld) [Vol rate/Area] mL/min/{1.73_m2} >=60 mL/min/1.73m 2 [facility] Glucose [Mass/Vol] 111 mg/dL High 74-106 [facility] Potassium [Moles/Vol] 3.7 mmol/L 3.5-5.1 [facility] Sodium [Moles/Vol] 140 mmol/L 136-145 [facility] Urea nitrogen [Mass/Vol] 9.0 mg/dL 7.0-18.0 [facility] Urea nitrogen/Creatinine [Mass ratio] 12.3 mg/mg [facility] Laboratory - Hematology and Cell countson 09-10-2024 Immature granulocytes/100 WBC (Bld) 0.5 % 0.0-0.5 [facility] Leukocytes [#/volume] correc wanda for nucleated erythrocytes in Blood by Automated counon 09-10-2024 WBC corrected for nucl RBC Auto (Bld) [#/Vol] Leukocytes [#/volume] corrected for nucleated erythrocytes in Blood by Automated coun 4.0-11.0 [facility] Lymphocytes Auto (Bld) [#/Vo l]on 09-10-2024 Lymphocytes (Bld) [#/Vol] Lymphocytes [#/volume] in Blood by Automated count 1.2-3.8 [facility] Lymphocytes/100 WBC Auto (Bl d)on 09-10-2024 Lymphocytes/100 WBC (Bld) Lymphocytes/100 leukocytes in Blood by Automated count Low 20.5-60.0 [facility] MCH Auto (RBC) [Entitic mass ]on 09-10-2024 MCH (RBC) [Entitic mass] MCH [Entitic mass] by Automated count 26.7-34.0 [facility] MCHC Auto (RBC) [Mass/Vol]on 09-10-2024 MCHC (RBC) [Mass/Vol] MCHC [Mass/volume] by Automated count 29.9-35.2 [facility] MCV Auto (RBC) [Entitic vol] on 09-10-2024 MCV (RBC) [Entitic vol] MCV [Entitic volume] by Automated count 81.0-99.0 [facility] Monocytes Auto (Bld) [#/Vol] on 09-10-2024 Monocytes (Bld) [#/Vol] Automated blood monocyte count 0.3-0.8 [facility] Monocytes/100 WBC Auto (Bld) on 09-10-2024 Monocytes/100 WBC (Bld) Automated monocyte % High 1.7-12.0 [facility] Neutrophils Auto (Bld) [#/Vo l]on 09-10-2024 Neutrophils (Bld) [#/Vol] Neutrophils [#/volume] in Blood by Automated count 1.4-6.5 [facility] Neutrophils/100 WBC Auto (Bl d)on 09-10-2024 Neutrophils/100 WBC (Bld) Automated neutrophil % 43.0-75.0 [facility] No Panel Informationon 09-10 Eosinophils # (Auto) 0.4 10 3/uL 0.0-0.7 [facility] Immature Granulocyte # (Auto) 0.03 10 3/uL 0.00-0.03 [facility] Platelet mean volume Auto (B ld) [Entitic vol]on 09-10-2024 Platelet mean volume (Bld) [Entitic vol] Platelet mean volume [Entitic volume] in Blood by Automated count 9.5-13.5 [facility] Platelets Auto (Bld) [#/Vol] on 09-10-2024 Platelets (Bld) [#/Vol] Platelets [#/volume] in Blood by Automated count 150-450 [facility] RBC Auto (Bld) [#/Vol]on RBC (Bld) [#/Vol] Erythrocytes [#/volume] in Blood by Automated count 4.20-5.40 [facility] Serum or plasma anion gap de terminationon 09-10-2024 Anion gap [Moles/Vol] Serum or plasma anion gap determination [facility] Basophils Auto (Bld) [#/Vol] on 09-09-2024 Basophils (Bld) [#/Vol] Automated basophil count 0.0-0.1 [facility] Basophils/100 WBC Auto (Bld) on 09-09-2024 Basophils/100 WBC (Bld) Automated basophil % 0.2-2.0 [facility] Eosinophils/100 WBC Auto (Bl d)on 09-09-2024 Eosinophils/100 WBC (Bld) Automated eosinophil % 0.9-7.0 [facility] Erythrocyte distribution wid th Auto (RBC) [Ratio]on 09-09-2024 Erythrocyte distribution width (RBC) [Ratio] Erythrocyte distribution width [Ratio] by Automated count 11.0-15.0 [facility] Estimated glomerular filtrat ion rate (GFR) non- Americanon 09-09-2024 GFR/1.73 sq M.predicted among non-blacks MDRD (S/P/Bld) [Vol rate/Area] Estimated glomerular filtration rate (GFR) non- >=60 mL/min/1.73m 2 [facility] Hematocrit Auto (Bld) [Volum e fraction]on 09-09-2024 Hematocrit (Bld) [Volume fraction] Hematocrit [Volume Fraction] of Blood by Automated count 36.0-48.0 [facility] Hemoglobin [Mass/volume] in Bloodon 09-09-2024 Hemoglobin (Bld) [Mass/Vol] Hemoglobin [Mass/volume] in Blood 12.0-16.0 [facility] Laboratory - Chemistry and C hemistry - challengeon 09-09-2024 Calcium [Mass/Vol] 9.2 mg/dL 8.5-10.1 [facility] Chloride [Moles/Vol] 102 mmol/L 98-107 [facility] CO2 [Moles/Vol] 31.5 mmol/L 21.0-32.0 [facility] Creatinine [Mass/Vol] 0.72 mg/dL 0.55-1.02 [facility] GFR/1.73 sq M.predicted MDRD (S/P/Bld) [Vol rate/Area] mL/min/{1.73_m2} >=60 mL/min/1.73m 2 [facility] Glucose [Mass/Vol] 97 mg/dL 74-106 [facility] Magnesium [Mass/Vol] 1.8 mg/dL 1.8-2.4 [facility] Potassium [Moles/Vol] 3.8 mmol/L 3.5-5.1 [facility] Sodium [Moles/Vol] 140 mmol/L 136-145 [facility] Urea nitrogen [Mass/Vol] 10.0 mg/dL 7.0-18.0 [facility] Urea nitrogen/Creatinine [Mass ratio] 13.9 mg/mg [facility] Laboratory - Hematology and Cell countson 09-09-2024 Immature granulocytes/100 WBC (Bld) 0.6 % High 0.0-0.5 [facility] Leukocytes [#/volume] correc wanda for nucleated erythrocytes in Blood by Automated counon 09-09-2024 WBC corrected for nucl RBC Auto (Bld) [#/Vol] Leukocytes [#/volume] corrected for nucleated erythrocytes in Blood by Automated coun 4.0-11.0 [facility] Lymphocytes Auto (Bld) [#/Vo l]on 09-09-2024 Lymphocytes (Bld) [#/Vol] Lymphocytes [#/volume] in Blood by Automated count 1.2-3.8 [facility] Lymphocytes/100 WBC Auto (Bl d)on 09-09-2024 Lymphocytes/100 WBC (Bld) Lymphocytes/100 leukocytes in Blood by Automated count Low 20.5-60.0 [facility] MCH Auto (RBC) [Entitic mass ]on 09-09-2024 MCH (RBC) [Entitic mass] MCH [Entitic mass] by Automated count 26.7-34.0 [facility] MCHC Auto (RBC) [Mass/Vol]on 09-09-2024 MCHC (RBC) [Mass/Vol] MCHC [Mass/volume] by Automated count 29.9-35.2 [facility] MCV Auto (RBC) [Entitic vol] on 09-09-2024 MCV (RBC) [Entitic vol] MCV [Entitic volume] by Automated count 81.0-99.0 [facility] Monocytes Auto (Bld) [#/Vol] on 09-09-2024 Monocytes (Bld) [#/Vol] Automated blood monocyte count 0.3-0.8 [facility] Monocytes/100 WBC Auto (Bld) on 09-09-2024 Monocytes/100 WBC (Bld) Automated monocyte % 1.7-12.0 [facility] Neutrophils Auto (Bld) [#/Vo l]on 09-09-2024 Neutrophils (Bld) [#/Vol] Neutrophils [#/volume] in Blood by Automated count 1.4-6.5 [facility] Neutrophils/100 WBC Auto (Bl d)on 09-09-2024 Neutrophils/100 WBC (Bld) Automated neutrophil % 43.0-75.0 [facility] No Panel Informationon 09-09 Eosinophils # (Auto) 0.4 10 3/uL 0.0-0.7 [facility] Immature Granulocyte # (Auto) 0.04 10 3/uL High 0.00-0.03 [facility] Platelet mean volume Auto (B ld) [Entitic vol]on 09-09-2024 Platelet mean volume (Bld) [Entitic vol] Platelet mean volume [Entitic volume] in Blood by Automated count 9.5-13.5 [facility] Platelets Auto (Bld) [#/Vol] on 09-09-2024 Platelets (Bld) [#/Vol] Platelets [#/volume] in Blood by Automated count 150-450 [facility] RBC Auto (Bld) [#/Vol]on RBC (Bld) [#/Vol] Erythrocytes [#/volume] in Blood by Automated count 4.20-5.40 [facility] Serum or plasma anion gap de terminationon 09-09-2024 Anion gap [Moles/Vol] Serum or plasma anion gap determination [facility] Basophils Auto (Bld) [#/Vol] on 09-07-2024 Basophils (Bld) [#/Vol] Automated basophil count 0.0-0.1 [facility] Basophils (Bld) [#/Vol] Automated basophil count 0.0-0.1 [facility] Basophils/100 WBC Auto (Bld) on 09-07-2024 Basophils/100 WBC (Bld) Automated basophil % 0.2-2.0 [facility] Basophils/100 WBC (Bld) Automated basophil % 0.2-2.0 [facility] Eosinophils/100 WBC Auto (Bl d)on 09-07-2024 Eosinophils/100 WBC (Bld) Automated eosinophil % 0.9-7.0 [facility] Eosinophils/100 WBC (Bld) Automated eosinophil % 0.9-7.0 [facility] Erythrocyte distribution wid th Auto (RBC) [Ratio]on 09-07-2024 Erythrocyte distribution width (RBC) [Ratio] Erythrocyte distribution width [Ratio] by Automated count 11.0-15.0 [facility] Erythrocyte distribution width (RBC) [Ratio] Erythrocyte distribution width [Ratio] by Automated count 11.0-15.0 [facility] Estimated glomerular filtrat ion rate (GFR) non- Americanon 09-07-2024 GFR/1.73 sq M.predicted among non-blacks MDRD (S/P/Bld) [Vol rate/Area] Estimated glomerular filtration rate (GFR) non- Low >=60 mL/min/1.73m 2 [facility] GFR/1.73 sq M.predicted among non-blacks MDRD (S/P/Bld) [Vol rate/Area] Estimated glomerular filtration rate (GFR) non- >=60 mL/min/1.73m 2 [facility] Globulin Calc (S) [Mass/Vol] on 09-07-2024 Globulin (S) [Mass/Vol] Serum globulin measurement by calculation (mass/volume) [facility] Hematocrit Auto (Bld) [Volum e fraction]on 09-07-2024 Hematocrit (Bld) [Volume fraction] Hematocrit [Volume Fraction] of Blood by Automated count 36.0-48.0 [facility] Hematocrit (Bld) [Volume fraction] Hematocrit [Volume Fraction] of Blood by Automated count 36.0-48.0 [facility] Hemoglobin [Mass/volume] in Bloodon 09-07-2024 Hemoglobin (Bld) [Mass/Vol] Hemoglobin [Mass/volume] in Blood 12.0-16.0 [facility] Hemoglobin (Bld) [Mass/Vol] Hemoglobin [Mass/volume] in Blood 12.0-16.0 [facility] INR in Platelet poor plasma by Coagulation assayon 09-07-2024 INR Coag (PPP) [Relative time] INR in Platelet poor plasma by Coagulation assay [facility] Comment on above: DESIRED INR:2.0-3.0 CONDITIONS NOT LISTED BELOW2.5-3.5 FOR PROSTHETIC HEART VALVE REPLACEMENT2.5-3.5 RECURRENT THROMBOSIS Laboratory - Chemistry and C hemistry - challengeon 09-07-2024 Albumin [Mass/Vol] 3.0 g/dL Low 3.4-5.0 [facility] ALP [Catalytic activity/Vol] 207 U/L High 46-116 [facility] ALT [Catalytic activity/Vol] 145 U/L High 14-59 [facility] AST [Catalytic activity/Vol] 191 U/L High 15-37 [facility] Bilirubin [Mass/Vol] 0.7 mg/dL 0.2-1.0 [facility] Calcium [Mass/Vol] 9.1 mg/dL 8.5-10.1 [facility] Chloride [Moles/Vol] 105 mmol/L 98-107 [facility] CO2 [Moles/Vol] 30.1 mmol/L 21.0-32.0 [facility] Creatinine [Mass/Vol] 1.22 mg/dL High 0.55-1.02 [facility] GFR/1.73 sq M.predicted MDRD (S/P/Bld) [Vol rate/Area] 53 mL/min/{1.73_m2} Low >=60 mL/min/1.73m 2 [facility] Glucose [Mass/Vol] 107 mg/dL High 74-106 [facility] Potassium [Moles/Vol] 4.2 mmol/L 3.5-5.1 [facility] Protein [Mass/Vol] 6.5 g/dL 6.4-8.2 [facility] Sodium [Moles/Vol] 142 mmol/L 136-145 [facility] TSH Qn 2.641 m[IU]/L 0.358-3.740 [facility] Urea nitrogen [Mass/Vol] 17.0 mg/dL 7.0-18.0 [facility] Urea nitrogen/Creatinine [Mass ratio] 13.9 mg/mg [facility] Calcium [Mass/Vol] 8.7 mg/dL 8.5-10.1 [facility] Chloride [Moles/Vol] 107 mmol/L 98-107 [facility] CO2 [Moles/Vol] 33.0 mmol/L High 21.0-32.0 [facility] Creatinine [Mass/Vol] 0.68 mg/dL 0.55-1.02 [facility] GFR/1.73 sq M.predicted MDRD (S/P/Bld) [Vol rate/Area] mL/min/{1.73_m2} >=60 mL/min/1.73m 2 [facility] Glucose [Mass/Vol] 86 mg/dL 74-106 [facility] Potassium [Moles/Vol] 3.9 mmol/L 3.5-5.1 [facility] Sodium [Moles/Vol] 146 mmol/L High 136-145 [facility] Urea nitrogen [Mass/Vol] 9.0 mg/dL 7.0-18.0 [facility] Urea nitrogen/Creatinine [Mass ratio] 13.2 mg/mg [facility] Laboratory - Hematology and Cell countson 09-07-2024 Immature granulocytes/100 WBC (Bld) 0.2 % 0.0-0.5 [facility] ESR (Bld) [Velocity] 83 mm/h High <=30 [facility] Immature granulocytes/100 WBC (Bld) 0.2 % 0.0-0.5 [facility] Leukocytes [#/volume] correc wanda for nucleated erythrocytes in Blood by Automated counon 09-07-2024 WBC corrected for nucl RBC Auto (Bld) [#/Vol] Leukocytes [#/volume] corrected for nucleated erythrocytes in Blood by Automated coun 4.0-11.0 [facility] WBC corrected for nucl RBC Auto (Bld) [#/Vol] Leukocytes [#/volume] corrected for nucleated erythrocytes in Blood by Automated coun 4.0-11.0 [facility] Lymphocytes Auto (Bld) [#/Vo l]on 09-07-2024 Lymphocytes (Bld) [#/Vol] Lymphocytes [#/volume] in Blood by Automated count Low 1.2-3.8 [facility] Lymphocytes (Bld) [#/Vol] Lymphocytes [#/volume] in Blood by Automated count Low 1.2-3.8 [facility] Lymphocytes/100 WBC Auto (Bl d)on 09-07-2024 Lymphocytes/100 WBC (Bld) Lymphocytes/100 leukocytes in Blood by Automated count Low 20.5-60.0 [facility] Lymphocytes/100 WBC (Bld) Lymphocytes/100 leukocytes in Blood by Automated count 20.5-60.0 [facility] MCH Auto (RBC) [Entitic mass ]on 09-07-2024 MCH (RBC) [Entitic mass] MCH [Entitic mass] by Automated count 26.7-34.0 [facility] MCH (RBC) [Entitic mass] MCH [Entitic mass] by Automated count 26.7-34.0 [facility] MCHC Auto (RBC) [Mass/Vol]on 09-07-2024 MCHC (RBC) [Mass/Vol] MCHC [Mass/volume] by Automated count 29.9-35.2 [facility] MCHC (RBC) [Mass/Vol] MCHC [Mass/volume] by Automated count 29.9-35.2 [facility] MCV Auto (RBC) [Entitic vol] on 09-07-2024 MCV (RBC) [Entitic vol] MCV [Entitic volume] by Automated count 81.0-99.0 [facility] MCV (RBC) [Entitic vol] MCV [Entitic volume] by Automated count 81.0-99.0 [facility] Monocytes Auto (Bld) [#/Vol] on 09-07-2024 Monocytes (Bld) [#/Vol] Automated blood monocyte count 0.3-0.8 [facility] Monocytes (Bld) [#/Vol] Automated blood monocyte count 0.3-0.8 [facility] Monocytes/100 WBC Auto (Bld) on 09-07-2024 Monocytes/100 WBC (Bld) Automated monocyte % 1.7-12.0 [facility] Monocytes/100 WBC (Bld) Automated monocyte % 1.7-12.0 [facility] Neutrophils Auto (Bld) [#/Vo l]on 09-07-2024 Neutrophils (Bld) [#/Vol] Neutrophils [#/volume] in Blood by Automated count 1.4-6.5 [facility] Neutrophils (Bld) [#/Vol] Neutrophils [#/volume] in Blood by Automated count 1.4-6.5 [facility] Neutrophils/100 WBC Auto (Bl d)on 09-07-2024 Neutrophils/100 WBC (Bld) Automated neutrophil % 43.0-75.0 [facility] Neutrophils/100 WBC (Bld) Automated neutrophil % 43.0-75.0 [facility] No Panel Informationon 09-07 Eosinophils # (Auto) 0.1 10 3/uL 0.0-0.7 [facility] Immature Granulocyte # (Auto) 0.01 10 3/uL 0.00-0.03 [facility] Troponin I High Sensitivity 4.3 pg/mL 4.0-51.3 [facility] Comment on above: CUT-OFF POINTS HAVE BEEN [...] C-Reactive Protein, Quantitative 0.79 mg/dL High <=0.50 [facility] Eosinophils # (Auto) 0.2 10 3/uL 0.0-0.7 [facility] Immature Granulocyte # (Auto) 0.01 10 3/uL 0.00-0.03 [facility] Platelet mean volume Auto (B ld) [Entitic vol]on 09-07-2024 Platelet mean volume (Bld) [Entitic vol] Platelet mean volume [Entitic volume] in Blood by Automated count 9.5-13.5 [facility] Platelet mean volume (Bld) [Entitic vol] Platelet mean volume [Entitic volume] in Blood by Automated count 9.5-13.5 [facility] Platelets Auto (Bld) [#/Vol] on 09-07-2024 Platelets (Bld) [#/Vol] Platelets [#/volume] in Blood by Automated count 150-450 [facility] Platelets (Bld) [#/Vol] Platelets [#/volume] in Blood by Automated count 150-450 [facility] Prothrombin time (PT)on 08-11 PT Coag (PPP) [Time] Prothrombin time (PT) 9.0- 11.6 [facility] RBC Auto (Bld) [#/Vol]on RBC (Bld) [#/Vol] Erythrocytes [#/volume] in Blood by Automated count 4.20-5.40 [facility] RBC (Bld) [#/Vol] Erythrocytes [#/volume] in Blood by Automated count 4.20-5.40 [facility] Serum or plasma albumin/glob ulin mass ratioon 09-07-2024 Albumin/Globulin [Mass ratio] Serum or plasma albumin/globulin mass ratio [facility] Serum or plasma anion gap de terminationon 09-07-2024 Anion gap [Moles/Vol] Serum or plasma anion gap determination [facility] Anion gap [Moles/Vol] Serum or plasma anion gap determination [facility] Basophils Auto (Bld) [#/Vol] on 09-06-2024 Basophils (Bld) [#/Vol] Automated basophil count 0.0-0.1 [facility] Basophils/100 WBC Auto (Bld) on 09-06-2024 Basophils/100 WBC (Bld) Automated basophil % 0.2-2.0 [facility] Buprenorphine [Presence] in Urineon 09-06-2024 Buprenorphine Ql (U) Buprenorphine [Presence] in Urine NEGATIVE [facility] Comment on above: DRUG CLASS TEST SYST EM CUT-OFF CONCENTRATIONS ARE ASFOLLOWS:AMP (Amphetamine): 500 ng/mLBAR (Barbiturates): 200 ng/mLBZO (Benzodiazepines): 150 ng/mLBUP (Buprenorphine): 10 ng/mLCOC (Cocaine): 150 ng/mLmAMP (Methamphetamine): 500 ng/mLMTD (Methadone): 200 ng/mLOPI (Opiates): 100 ng/mLOXY (Oxycodone): 100 ng/mLPCP (Phencyclidine): 25 ng/mLTHC (Cannabinoids): 50 ng/mLTCA (Trycyclic Antidepressants): 300 ng/mL Eosinophils/100 WBC Auto (Bl d)on 09-06-2024 Eosinophils/100 WBC (Bld) Automated eosinophil % 0.9-7.0 [facility] Erythrocyte distribution wid th Auto (RBC) [Ratio]on 09-06-2024 Erythrocyte distribution width (RBC) [Ratio] Erythrocyte distribution width [Ratio] by Automated count 11.0-15.0 [facility] Estimated glomerular filtrat ion rate (GFR) non- Americanon 09-06-2024 GFR/1.73 sq M.predicted among non-blacks MDRD (S/P/Bld) [Vol rate/Area] Estimated glomerular filtration rate (GFR) non- >=60 mL/min/1.73m 2 [facility] Globulin Calc (S) [Mass/Vol] on 09-06-2024 Globulin (S) [Mass/Vol] Serum globulin measurement by calculation (mass/volume) [facility] Hematocrit Auto (Bld) [Volum e fraction]on 09-06-2024 Hematocrit (Bld) [Volume fraction] Hematocrit [Volume Fraction] of Blood by Automated count 36.0-48.0 [facility] Hemoglobin [Mass/volume] in Bloodon 09-06-2024 Hemoglobin (Bld) [Mass/Vol] Hemoglobin [Mass/volume] in Blood 12.0-16.0 [facility] Laboratory - Chemistry and C hemistry - challengeon 09-06-2024 Albumin [Mass/Vol] 3.0 g/dL Low 3.4-5.0 [facility] ALP [Catalytic activity/Vol] 105 U/L 46-116 [facility] ALT [Catalytic activity/Vol] 27 U/L 14-59 [facility] AST [Catalytic activity/Vol] 40 U/L High 15-37 [facility] Bilirubin [Mass/Vol] 0.7 mg/dL 0.2-1.0 [facility] Calcium [Mass/Vol] 9.4 mg/dL 8.5-10.1 [facility] Chloride [Moles/Vol] 108 mmol/L High 98-107 [facility] CK [Catalytic activity/Vol] 37 U/L 26-192 [facility] CO2 [Moles/Vol] 28.1 mmol/L 21.0-32.0 [facility] Creatinine [Mass/Vol] 0.72 mg/dL 0.55-1.02 [facility] GFR/1.73 sq M.predicted MDRD (S/P/Bld) [Vol rate/Area] mL/min/{1.73_m2} >=60 mL/min/1.73m 2 [facility] Glucose [Mass/Vol] 96 mg/dL 74-106 [facility] Magnesium [Mass/Vol] 2.0 mg/dL 1.8-2.4 [facility] Potassium [Moles/Vol] 4.2 mmol/L 3.5-5.1 [facility] Protein [Mass/Vol] 6.7 g/dL 6.4-8.2 [facility] Sodium [Moles/Vol] 145 mmol/L 136-145 [facility] Urea nitrogen [Mass/Vol] 8.0 mg/dL 7.0-18.0 [facility] Urea nitrogen/Creatinine [Mass ratio] 11.1 mg/mg [facility] Bilirubin Ql (U) Negative NEGATIVE [facility] Glucose (U) [Mass/Vol] Negative NEGATIVE [facility] Ketones Ql (U) 15 mg/dL Abnormal NEGATIVE [facility] pH (U) 6.0 [pH] 5.0-9.0 [facility] Specific gravity (U) [Rel density] >=1.030 Abnormal 1.005-1.025 [facility] Urobilinogen Qn (U) 4.0 {Susan'U}/dL Abnormal 0.2-1.0 [facility] Laboratory - Drug toxicology on 09-06-2024 Amphetamines Ql (U) Negative NEGATIVE [facility] Benzodiazepines Ql (U) Positive Abnormal NEGATIVE [facility] Cocaine Ql (U) Negative NEGATIVE [facility] Opiates Ql (U) Negative NEGATIVE [facility] Phencyclidine Ql (U) Negative NEGATIVE [facility] Laboratory - Hematology and Cell countson 09-06-2024 Immature granulocytes/100 WBC (Bld) 0.2 % 0.0-0.5 [facility] Laboratory - Specimen inform ationon 09-06-2024 Appearance (U) CLOUDY Abnormal CLEAR [facility] Color (U) DK YELLOW YELLOW [facility] Laboratory - Urinalysison Leukocyte esterase Test strip Ql (U) SMALL Abnormal NEGATIVE [facility] Mucus Ql (Urine sed) NONE SEEN NONE SEEN [facility] Nitrite Ql (U) Positive Abnormal NEGATIVE [facility] Protein Ql (U) Negative NEG/TRACE [facility] Leukocytes [#/volume] correc wanda for nucleated erythrocytes in Blood by Automated counon 09-06-2024 WBC corrected for nucl RBC Auto (Bld) [#/Vol] Leukocytes [#/volume] corrected for nucleated erythrocytes in Blood by Automated coun 4.0-11.0 [facility] Lymphocytes Auto (Bld) [#/Vo l]on 09-06-2024 Lymphocytes (Bld) [#/Vol] Lymphocytes [#/volume] in Blood by Automated count 1.2-3.8 [facility] Lymphocytes/100 WBC Auto (Bl d)on 09-06-2024 Lymphocytes/100 WBC (Bld) Lymphocytes/100 leukocytes in Blood by Automated count 20.5-60.0 [facility] MCH Auto (RBC) [Entitic mass ]on 09-06-2024 MCH (RBC) [Entitic mass] MCH [Entitic mass] by Automated count 26.7-34.0 [facility] MCHC Auto (RBC) [Mass/Vol]on 09-06-2024 MCHC (RBC) [Mass/Vol] MCHC [Mass/volume] by Automated count 29.9-35.2 [facility] MCV Auto (RBC) [Entitic vol] on 09-06-2024 MCV (RBC) [Entitic vol] MCV [Entitic volume] by Automated count 81.0-99.0 [facility] Methadone [Presence] in Urin e by Screen methodon 09-06-2024 Methadone Screen Ql (U) Methadone [Presence] in Urine by Screen method NEGATIVE [facility] Monocytes Auto (Bld) [#/Vol] on 09-06-2024 Monocytes (Bld) [#/Vol] Automated blood monocyte count 0.3-0.8 [facility] Monocytes/100 WBC Auto (Bld) on 09-06-2024 Monocytes/100 WBC (Bld) Automated monocyte % 1.7-12.0 [facility] Neutrophils Auto (Bld) [#/Vo l]on 09-06-2024 Neutrophils (Bld) [#/Vol] Neutrophils [#/volume] in Blood by Automated count 1.4-6.5 [facility] Neutrophils/100 WBC Auto (Bl d)on 09-06-2024 Neutrophils/100 WBC (Bld) Automated neutrophil % 43.0-75.0 [facility] No Panel Informationon 09-06 Urine Barbiturates Screen Negative NEGATIVE [facility] Urine Marijuana (THC) Screen Negative NEGATIVE [facility] Urine Methamphetamines Screen Negative NEGATIVE [facility] Eosinophils # (Auto) 0.2 10 3/uL 0.0-0.7 [facility] Immature Granulocyte # (Auto) 0.01 10 3/uL 0.00-0.03 [facility] Miscellaneous Test Comment See comment [facility] Comment on above: Specimen Source: UCC - Urine,Clean Catch - Urine CC - 200.100 Urine Bacteria LARGE #/HPF Abnormal NONE SEEN [facility] Urine Culture Reflexed YES [facility] Urine Culture Result 1 \R\ Urine Culture, Routine\R\ Organism: Gram negative eusebia : [facility] Urine Microscopic Review YES [facility] Urine Occult Blood Negative NEGATIVE [facility] Urine Other Casts NONE SEEN #/LPF NONE SEEN [facility] Urine Other Crystals None Seen #/HPF None Seen [facility] Urine RBC NONE SEEN #/HPF 0-2 [facility] Urine Squamous Epithelial Cells FEW #/LPF Abnormal NONE/RARE [facility] Urine WBC 10-20 #/HPF Abnormal NONE SEEN [facility] Platelet mean volume Auto (B ld) [Entitic vol]on 09-06-2024 Platelet mean volume (Bld) [Entitic vol] Platelet mean volume [Entitic volume] in Blood by Automated count 9.5-13.5 [facility] Platelets Auto (Bld) [#/Vol] on 09-06-2024 Platelets (Bld) [#/Vol] Platelets [#/volume] in Blood by Automated count 150-450 [facility] RBC Auto (Bld) [#/Vol]on RBC (Bld) [#/Vol] Erythrocytes [#/volume] in Blood by Automated count 4.20-5.40 [facility] Serum or plasma albumin/glob ulin mass ratioon 09-06-2024 Albumin/Globulin [Mass ratio] Serum or plasma albumin/globulin mass ratio [facility] Serum or plasma anion gap de terminationon 09-06-2024 Anion gap [Moles/Vol] Serum or plasma anion gap determination [facility] Urine tricyclic antidepressa nt measurementon 09-06-2024 Tricyclic antidepressants (U) [Mass/Vol] Urine tricyclic antidepressant measurement NEGATIVE [facility] oxyCODONE+oxyMORphone [Prese nce] in Urine by Screen methodon 09-06-2024 oxyCODONE+oxyMORphon e Screen Ql (U) oxyCODONE+oxyMORphone [Presence] in Urine by Screen method Abnormal NEGATIVE [facility] Activated partial thrombopla stin time (aPTT) in platelet poor plasma by coagulation aon 01-14-2024 aPTT Coag (PPP) [Time] 23.5 s 22.3-36.2 [facility] Basophils Auto (Bld) [#/Vol] on 01-14-2024 Basophils (Bld) [#/Vol] 0.1 10 3/uL 0.0-0.1 [facility] Basophils/100 WBC Auto (Bld) on 01-14-2024 Basophils/100 WBC (Bld) 0.5 % 0.2-2.0 [facility] Eosinophils/100 WBC Auto (Bl d)on 01-14-2024 Eosinophils/100 WBC (Bld) 1.3 % 0.9-7.0 [facility] Erythrocyte distribution wid th Auto (RBC) [Ratio]on 01-14-2024 Erythrocyte distribution width (RBC) [Ratio] 13.6 % 11.0-15.0 [facility] Estimated glomerular filtrat ion rate (GFR) non- Americanon 01-14-2024 GFR/1.73 sq M.predicted among non-blacks MDRD (S/P/Bld) [Vol rate/Area] mL/min/{1.73_m2} >=60 [facility] Fibrin D-dimer [Presence] in Platelet poor plasma by Latex agglutinationon 01-14-2024 Fibrin D-dimer LA Ql (PPP) 0.78 mg/L FEU <=0.59 [facility] Comment on above: RESULTS CALLED TO EARL ZUNIGA, RN @BY Klaudia Heard 183Increases in D-Dimer [...] on 01-14-2024 Globulin (S) [Mass/Vol] 3.9 g/dL [facility] Hematocrit Auto (Bld) [Volum e fraction]on 01-14-2024 Hematocrit (Bld) [Volume fraction] 44.4 % 36.0-48.0 [facility] Hemoglobin [Mass/volume] in Bloodon 01-14-2024 Hemoglobin (Bld) [Mass/Vol] 14.1 g/dL 12.0-16.0 [facility] INR in Platelet poor plasma by Coagulation assayon 01-14-2024 INR Coag (PPP) [Relative time] {INR} [facility] Comment on above: DESIRED INR:2.0-3.0 CONDITIONS NOT LISTED BELOW2.5-3.5 FOR PROSTHETIC HEART VALVE REPLACEMENT2.5-3.5 RECURRENT THROMBOSIS Laboratory - Chemistry and C hemistry - challengeon 01-14-2024 Albumin [Mass/Vol] 2.9 g/dL 3.4-5.0 [facility] ALP [Catalytic activity/Vol] 126 U/L 46-116 [facility] ALT [Catalytic activity/Vol] 36 U/L 14-59 [facility] AST [Catalytic activity/Vol] 24 U/L 15-37 [facility] Bilirubin [Mass/Vol] 0.4 mg/dL 0.2-1.0 [facility] Calcium [Mass/Vol] 8.7 mg/dL 8.5-10.1 [facility] Chloride [Moles/Vol] 109 mmol/L 98-107 [facility] CO2 [Moles/Vol] 30.5 mmol/L 21.0-32.0 [facility] Creatinine [Mass/Vol] 0.77 mg/dL 0.55-1.02 [facility] GFR/1.73 sq M.predicted MDRD (S/P/Bld) [Vol rate/Area] mL/min/{1.73_m2} >=60 [facility] Glucose [Mass/Vol] 108 mg/dL 74-106 [facility] Natriuretic peptide B (Bld) [Mass/Vol] 210.0 pg/mL <=900.0 [facility] Potassium [Moles/Vol] 4.0 mmol/L 3.5-5.1 [facility] Protein [Mass/Vol] 6.8 g/dL 6.4-8.2 [facility] Sodium [Moles/Vol] 141 mmol/L 136-145 [facility] Urea nitrogen [Mass/Vol] 10.0 mg/dL 7.0-18.0 [facility] Urea nitrogen/Creatinine [Mass ratio] 13.0 mg/mg [facility] Laboratory - Hematology and Cell countson 01-14-2024 Immature granulocytes/100 WBC (Bld) 0.3 % 0.0-0.5 [facility] Laboratory - Microbiology an d Antimicrobial susceptibilityon 01-14-2024 SARS-CoV-2 (COVID-19) RNA DAVID+probe Ql (Unsp spec) Negative NEGATIVE [facility] Comment on above: This test has not [...] Auto (Bld) [#/Vol] 9.2 10 3/uL 4.0-11.0 [facility] Lymphocytes Auto (Bld) [#/Vo l]on 01-14-2024 Lymphocytes (Bld) [#/Vol] 1.9 10 3/uL 1.2-3.8 [facility] Lymphocytes/100 WBC Auto (Bl d)on 01-14-2024 Lymphocytes/100 WBC (Bld) 20.3 % 20.5-60.0 [facility] MCH Auto (RBC) [Entitic mass ]on 01-14-2024 MCH (RBC) [Entitic mass] 28.4 pg 26.7-34.0 [facility] MCHC Auto (RBC) [Mass/Vol]on 01-14-2024 MCHC (RBC) [Mass/Vol] 31.8 g/dL 29.9-35.2 [facility] MCV Auto (RBC) [Entitic vol] on 01-14-2024 MCV (RBC) [Entitic vol] 89.5 fL 81.0-99.0 [facility] Monocytes Auto (Bld) [#/Vol] on 01-14-2024 Monocytes (Bld) [#/Vol] 0.8 10 3/uL 0.3-0.8 [facility] Monocytes/100 WBC Auto (Bld) on 01-14-2024 Monocytes/100 WBC (Bld) 8.5 % 1.7-12.0 [facility] Neutrophils Auto (Bld) [#/Vo l]on 01-14-2024 Neutrophils (Bld) [#/Vol] 6.3 10 3/uL 1.4-6.5 [facility] Neutrophils/100 WBC Auto (Bl d)on 01-14-2024 Neutrophils/100 WBC (Bld) 69.1 % 43.0-75.0 [facility] No Panel Informationon 01-13 Troponin I High Sensitivity 6.8 pg/mL 4.0-51.3 [facility] Comment on above: CUT-OFF POINTS HAVE BEEN [...] INFORMATION. Bedside Influenza Type A Antigen Negative [facility] Comment on above: Negative for Flu A p rotein antigen. Infection due to Flu Acannot be ruled out. Flu A antigen in the sample may bebelow the detection limit of the test. Bedside Influenza Type B Antigen Negative [facility] Comment on above: Negative for Flu B p rotein antigen. Infection due to Flu Bcannot be ruled out. Flu B antigen in the sample may bebelow the detection limit of the test. Eosinophils # (Auto) 0.1 10 3/uL 0.0-0.7 [facility] Immature Granulocyte # (Auto) 0.03 10 3/uL 0.00-0.03 [facility] Platelet mean volume Auto (B ld) [Entitic vol]on 01-14-2024 Platelet mean volume (Bld) [Entitic vol] 9.4 fL 9.5-13.5 [facility] Platelets Auto (Bld) [#/Vol] on 01-14-2024 Platelets (Bld) [#/Vol] 238 10 3/uL 150-450 [facility] Prothrombin time (PT)on PT Coag (PPP) [Time] 9.3 s 9.0-11.6 [facility] RBC Auto (Bld) [#/Vol]on RBC (Bld) [#/Vol] 4.96 10 6/uL 4.20-5.40 [facility] Serum or plasma albumin/glob ulin mass ratioon 01-14-2024 Albumin/Globulin [Mass ratio] 0.7 {ratio} [facility] Serum or plasma anion gap de terminationon 01-14-2024 Anion gap [Moles/Vol] 5.5 mmol/L [facility] Basophils Auto (Bld) [#/Vol] on 12-30-2023 Basophils (Bld) [#/Vol] 0.1 10 3/uL 0.0-0.1 [facility] Basophils/100 WBC Auto (Bld) on 12-30-2023 Basophils/100 WBC (Bld) 0.6 % 0.2-2.0 [facility] Cholesterol in LDL Calc [Mas s/Vol]on 12-30-2023 Cholesterol in LDL [Mass/Vol] 149.0 mg/dL [facility] [place] Comment on above: <100 mg/dl [id number] 0-129 mg/dl NEAR OR ABOVE [id number] mg/dl BORDERLINE [id number] mg/dl HIGH>190 mg/dl VERY HIGH Cholesterol in VLDL Calc [Ma ss/Vol]on 12-30-2023 Cholesterol in VLDL [Mass/Vol] 18.6 mg/dL [facility] Eosinophils/100 WBC Auto (Bl d)on 12-30-2023 Eosinophils/100 WBC (Bld) 1.8 % 0.9-7.0 [facility] Erythrocyte distribution wid th Auto (RBC) [Ratio]on 12-30-2023 Erythrocyte distribution width (RBC) [Ratio] 13.2 % 11.0-15.0 [facility] Estimated glomerular filtrat ion rate (GFR) non- Americanon 12-30-2023 GFR/1.73 sq M.predicted among non-blacks MDRD (S/P/Bld) [Vol rate/Area] mL/min/{1.73_m2} >=60 [facility] Globulin Calc (S) [Mass/Vol] on 12-30-2023 Globulin (S) [Mass/Vol] 3.8 g/dL [facility] Hematocrit Auto (Bld) [Volum e fraction]on 12-30-2023 Hematocrit (Bld) [Volume fraction] 46.8 % 36.0-48.0 [facility] Hemoglobin [Mass/volume] in Bloodon 12-30-2023 Hemoglobin (Bld) [Mass/Vol] 14.7 g/dL 12.0-16.0 [facility] Laboratory - Chemistry and C hemistry - challengeon 12-30-2023 Albumin [Mass/Vol] 3.0 g/dL 3.4-5.0 [facility] ALP [Catalytic activity/Vol] 88 U/L 46-116 [facility] ALT [Catalytic activity/Vol] 23 U/L 14-59 [facility] AST [Catalytic activity/Vol] 20 U/L 15-37 [facility] Bilirubin [Mass/Vol] 0.5 mg/dL 0.2-1.0 [facility] Calcium [Mass/Vol] 9.2 mg/dL 8.5-10.1 [facility] Chloride [Moles/Vol] 107 mmol/L 98-107 [facility] Cholesterol [Mass/Vol] 224 mg/dL <=200 [facility] Cholesterol in HDL [Mass/Vol] 57 mg/dL 40-60 [facility] Comment on above: > or =60 mg/dl - LOW CARDIOVASCULAR RISK<40 mg/dl - HIGH CARDIOVASCULAR RISK CO2 [Moles/Vol] 31.1 mmol/L 21.0-32.0 [facility] Creatinine [Mass/Vol] 0.72 mg/dL 0.55-1.02 [facility] GFR/1.73 sq M.predicted MDRD (S/P/Bld) [Vol rate/Area] mL/min/{1.73_m2} >=60 [facility] Glucose [Mass/Vol] 100 mg/dL 74-106 [facility] Potassium [Moles/Vol] 4.5 mmol/L 3.5-5.1 [facility] Protein [Mass/Vol] 6.8 g/dL 6.4-8.2 [facility] Sodium [Moles/Vol] 145 mmol/L 136-145 [facility] Triglyceride [Mass/Vol] 93 mg/dL <=150 [facility] TSH Qn 2.655 m[IU]/L 0.358-3.740 [facility] Urea nitrogen [Mass/Vol] 9.0 mg/dL 7.0-18.0 [facility] Urea nitrogen/Creatinine [Mass ratio] 12.5 mg/mg [facility] Laboratory - Hematology and Cell countson 12-30-2023 Immature granulocytes/100 WBC (Bld) 0.2 % 0.0-0.5 [facility] Leukocytes [#/volume] correc wanda for nucleated erythrocytes in Blood by Automated counon 12-30-2023 WBC corrected for nucl RBC Auto (Bld) [#/Vol] 8.7 10 3/uL 4.0-11.0 [facility] Lymphocytes Auto (Bld) [#/Vo l]on 12-30-2023 Lymphocytes (Bld) [#/Vol] 1.8 10 3/uL 1.2-3.8 [facility] Lymphocytes/100 WBC Auto (Bl d)on 12-30-2023 Lymphocytes/100 WBC (Bld) 20.4 % 20.5-60.0 [facility] MCH Auto (RBC) [Entitic mass ]on 12-30-2023 MCH (RBC) [Entitic mass] 28.6 pg 26.7-34.0 [facility] MCHC Auto (RBC) [Mass/Vol]on 12-30-2023 MCHC (RBC) [Mass/Vol] 31.4 g/dL 29.9-35.2 [facility] MCV Auto (RBC) [Entitic vol] on 12-30-2023 MCV (RBC) [Entitic vol] 91.1 fL 81.0-99.0 [facility] Monocytes Auto (Bld) [#/Vol] on 12-30-2023 Monocytes (Bld) [#/Vol] 0.7 10 3/uL 0.3-0.8 [facility] Monocytes/100 WBC Auto (Bld) on 12-30-2023 Monocytes/100 WBC (Bld) 7.5 % 1.7-12.0 [facility] Neutrophils Auto (Bld) [#/Vo l]on 12-30-2023 Neutrophils (Bld) [#/Vol] 6.0 10 3/uL 1.4-6.5 [facility] Neutrophils/100 WBC Auto (Bl d)on 12-30-2023 Neutrophils/100 WBC (Bld) 69.5 % 43.0-75.0 [facility] No Panel Informationon 12-30 Eosinophils # (Auto) 0.2 10 3/uL 0.0-0.7 [facility] Immature Granulocyte # (Auto) 0.02 10 3/uL 0.00-0.03 [facility] Platelet mean volume Auto (B ld) [Entitic vol]on 12-30-2023 Platelet mean volume (Bld) [Entitic vol] 9.3 fL 9.5-13.5 [facility] Platelets Auto (Bld) [#/Vol] on 12-30-2023 Platelets (Bld) [#/Vol] 199 10 3/uL 150-450 [facility] RBC Auto (Bld) [#/Vol]on RBC (Bld) [#/Vol] 5.14 10 6/uL 4.20-5.40 [facility] Serum or plasma albumin/glob ulin mass ratioon 12-30-2023 Albumin/Globulin [Mass ratio] 0.8 {ratio} [facility] Serum or plasma anion gap de terminationon 12-30-2023 Anion gap [Moles/Vol] 11.4 mmol/L [facility] Serum or plasma total choles terol/high density lipoprotein (HDL) cholesterol mass la 12-30-2023 Cholesterol.total/Ch olesterol in HDL [Mass ratio] 3.9 {ratio} [facility] Comment on above: 3.3 - 4.4 LOW RISK4. 4 - 7.1 AVERAGE RISK7.1 - 11.0 MODERATE RISK>11.0 HIGH RISK XR hip LT min 2V(w/wo pelvis )*on 01-08-2023 XR hip LT min 2V(w/wo pelvis)* [facility] [employer] Other XR hip LT min 2V(w/wo pelvis)* [facility] [employer] Other XR hip LT min 2V(w/wo pelvis)* [address] [place] [address] [employer] Other XR hip LT min 2V(w/wo pelvis)* [place] [address] [employer] Other XR hip LT min 2V(w/wo pelvis)* XRay Report [employer] Other XR hip LT min 2V(w/wo pelvis)* Signed [employer] Other XR hip LT min 2V(w/wo pelvis)* Patient: Adriana Dinero I MR#: [id number] [facility] Other XR hip LT min 2V(w/wo pelvis)* 056 [facility] [facility] Other XR hip LT min 2V(w/wo pelvis)* : 1955 Acct:[id number] [facility] Other XR hip LT min 2V(w/wo pelvis)* Age/Sex: 67 / F ADM Date: 01/08/23 [facility] Other XR hip LT min 2V(w/wo pelvis)* [place] [facility] [place] Type: [facility] [employer] Other XR hip LT min 2V(w/wo pelvis)* Attending Dr: Samuel Chatman II, MD [employer] Other XR hip LT min 2V(w/wo pelvis)* Copies to: Samuel Chatman MD [employer] Other XR hip LT min 2V(w/wo pelvis)* Ordering Provider: Samuel Chatman MD [facility] Other XR hip LT min 2V(w/wo pelvis)* Date of Service: 01/08/23 [facility] Other XR hip LT min 2V(w/wo pelvis)* XR/XR hip LT min 2V(w/wo pelvis)*: Left hip pain [facility] Other XR hip LT min 2V(w/wo pelvis)* LEFT HIP - 2 views: [facility] Other XR hip LT min 2V(w/wo pelvis)* CLINICAL HISTORY: Left hip pain for months. [facility] [facility] Other XR hip LT min 2V(w/wo pelvis)* COMPARISON: Hip series 11/22/2022 [facility] [facility] Other XR hip LT min 2V(w/wo pelvis)* FINDINGS: Mild degenerative changes of both hips without acute bony process. [facility] [facility] Other XR hip LT min 2V(w/wo pelvis)* XR/XR hip LT min 2V(w/wo pelvis)* [facility] [facility] Other XR hip LT min 2V(w/wo pelvis)* IMPRESSION: [facility] [facility] Other XR hip LT min 2V(w/wo pelvis)* MILD DEGENERATIVE CHANGES OF BOTH HIPS WITHOUT ACUTE BONY PROCESS.. [facility] [facility] Other XR hip LT min 2V(w/wo pelvis)* Impression dictated by: Montana Pop Jr., D.OOdessa01/08/2023 1:22 PM [facility] [facility] Other XR hip LT min 2V(w/wo pelvis)* Dictation Location: [place] [address] [facility] Other XR hip LT min 2V(w/wo pelvis)* Transcribed By: VALERIE 01/08/23 [facility] [employer] Other XR hip LT min 2V(w/wo pelvis)* Dictated By: Montana Pop Jr, DO 01/08/23 [facility] [employer] Other XR hip LT min 2V(w/wo pelvis)* Signed By: [facility] Other XR hip LT min 2V(w/wo pelvis)* 01/08/23 [facility] [employer] Other Office Visit (Cardiology)on 12-09-2022 Follow-up visit [...] and provided the patient with 2 local high scaler [facility] ASSESSMENT AND PLAN: 1. Supraventricular tachycardia, on beta-aanhi therapy using atenolol, well tolerated, no recurrences. [...] follow-up will be scheduled Iban Lu MD, [facility] Surgical History Problems History of Back [...] Recorded: 09Dec2022 01:25PM Heart Rate78, L Radial Donczqsk167, LUE, Sitting Zkcfqxeap58, LUE, Sitting Height5 ft 6 in Gthhsp677 lb BMI Hfqejoqmlu62.03 kg/m2 BSA Calculated2.19 Tobacco Useb) No PHQ-2 [...] Dec 09 2022 2:09PM EST (Author) Normal [facility] Tobacco Screening.on 023 Fall risk assessment b) One or more fall s in the last year [facility] 250 DO Work Phone: Tobacco use status [facility] b) No [facility] 250 DO Work Phone: Tobacco Screening. Yes [facility] 250 DO Work Phone: CREATININEon 10-04-2022 Creatinine [Mass/Vol] 0.75 mg/dL Normal 0.55-1.02 [facility] Comment on above: Performed By: #### C CARLOS #### [facility] [address] [address] [address] Henrietta Zavala EGFR-AF SRI LANKAN >60 Normal >=[address] [facility] Comment on above: Performed By: #### C CARLOS #### [facility] [address] [address] [address] Henrietta Zavala EGFR-NON AF SRI LANKAN >60 Normal >=60 [facility] Comment on above: Performed By: #### C CARLOS #### [facility] [address] [address] [address] Henrietta Zavala MRI LSPINE WO W [...] SHALA OMER Date: 2022-10-04 11:19 Normal [facility] Covid-19 PCR (CVDTB)on 07-11 SARS-CoV-2 (COVID-19) RNA DAVID+probe Ql (Unsp spec) Not detected Normal NOT DETECTED [facility] Comment on above: Result Comment: This test is not yet approved or cleared by the [place] FDA. When there are no FDA-approved or cleared tests available, and other criteria are met, FDA can make tests available under an emergency access mechanism called an Emergency Use Authorization (EUA). The EUA for this test is supported by the [place] of Health and Human Service's (HHS's) declaration [...] with SARS-CoV-2. Performed By: #### [facility] #### [facility] [address] [place] [address] Dr. Henrietta Zavala XR HIPS JI 3_4V [...] CAITLYN CABRERA Date: 2022-04-15 07:00 Normal [facility] XR TSPINE 3 VIEWSon 04-15-20 [...] CAITLYN CABRERA Date: 2022-04-15 07:03 Normal [facility] CBC AUTO DIFFon 04-12-2022 BASO # 0.1 103/ul Normal 0.0-0.1 [facility] Comment on above: Performed By: #### C BC #### [facility] [address] [place] [address] Dr. Henrietta Zavala Basophils/100 WBC (Bld) 0.4 % Normal 0.2-2.0 [facility] Comment on above: Performed By: #### C BC #### [facility] [address] [place] [address] Dr. Henrietta Zavala EO # 0.1 103/ul Normal 0.0-0.7 [facility] Comment on above: Performed By: #### C BC #### [facility] [address] [place] [address] Dr. Henrietta Zavala Eosinophils/100 WBC (Bld) 0.4 % Critically low 0.9-7.0 [facility] Comment on above: Performed By: #### C BC #### [facility] [address] [place] [address] Dr. Henrietta Zavala Erythrocyte distribution width (RBC) [Ratio] 14.1 % Normal 11.0-15.0 [facility] Comment on above: Performed By: #### C BC #### [facility] [address] [place] [address] Dr. Henrietta Zavala Hematocrit (Bld) [Volume fraction] 44.9 % Normal 36.0-48.0 [facility] Comment on above: Performed By: #### C BC #### [facility] [address] [place] [address] Dr. Henrietta Zavala Hemoglobin (Bld) [Mass/Vol] 14.2 g/dL Normal 12.0-16.0 [facility] Comment on above: Performed By: #### C BC #### [facility] [address] [place] [address] Dr. Henrietta Zavala IG # 0.06 10e3/ul Critically high 0.00-0.03 [facility] Comment on above: Performed By: #### C BC #### [facility] [address] [place] [address] Dr. Henrietta Zavala IG % 0.5 % Normal 0.0-0.5 [facility] Comment on above: Performed By: #### C BC #### [facility] [address] [place] [address] Dr. Henrietta Zavala LYMPH # 2.2 103/ul Normal 1.2-3.8 [facility] Comment on above: Performed By: #### C BC #### [facility] [address] [place] [address] Dr. Henrietta Zavala Lymphocytes/100 WBC (Bld) 19.4 % Critically low 20.5-60.0 [facility] Comment on above: Performed By: #### C BC #### [facility] [address] [place] [address] Dr. Henrietta Zavala MANUAL DIFF REQ NO Normal [facility] Comment on above: Performed By: #### C BC #### [facility] [address] [place] [address] Dr. Henrietta Zavala MCH (RBC) [Entitic mass] 27.5 pg Normal 26.7-34.0 [facility] Comment on above: Performed By: #### C BC #### [facility] [address] [place] [address] Dr. Henrietta Zavala MCHC (RBC) [Mass/Vol] 31.6 g/dL Normal 29.9-35.2 [facility] Comment on above: Performed By: #### C BC #### [facility] [address] [place] [address] Dr. Henrietta Zavala MCV (RBC) [Entitic vol] 86.8 fL Normal 81.0-99.0 [facility] Comment on above: Performed By: #### C BC #### [facility] [address] [place] [address] Dr. Henrietta Zavala MONO # 0.9 103/ul Critically high 0.3-0.8 [facility] Comment on above: Performed By: #### C BC #### [facility] [address] [place] [address] Dr. Henrietta Zavala Monocytes/100 WBC (Bld) 7.9 % Normal 1.7-12.0 [facility] Comment on above: Performed By: #### C BC #### [facility] [address] [place] [address] Dr. Henrietta Zavala NEUT # 8.1 103/ul Critically high 1.4-6.5 [facility] Comment on above: Performed By: #### C BC #### [facility] [address] [place] [address] Dr. Henrietta Zavala Neutrophils/100 WBC (Bld) 71.4 % Normal 43.0-75.0 [facility] Comment on above: Performed By: #### C BC #### [facility] [address] [place] [address] Dr. Henrietta Zavala Platelet mean volume (Bld) [Entitic vol] 9.7 fL Normal 9.5-13.5 [facility] Comment on above: Performed By: #### C BC #### [facility] [address] [address] [address] Henrietta Zavala PLT 284 103/ul Normal 150-450 [facility] Comment on above: Performed By: #### C BC #### [facility] [address] [address] [address] Henrietta Zavala RBC 5.17 106/ul Normal 4.20-5.40 [facility] Comment on above: Performed By: #### C BC #### [facility] [address] [place] [address] Dr. Henrietta Zavala WBC 11.3 103/ul Critically high 4.0-11.[address] [facility] Comment on above: Performed By: #### C BC #### [facility] [address] [place] [address] Dr. Henrietta Zavala LIPID PROFILEon 04-12-2022 CHOL-HDL RATIO NORM SEE BELOW Normal [facility] Comment on above: Result Comment: 3.3 - 4.4 LOW RISK 4.4 - 7.1 AVERAGE RISK 7.1 - 11.0 MODERATE RISK >11.0 HIGH RISK Performed By: #### C MP, LIPID #### [facility] [address] [place] [address] Dr. Henrietta Zavala Cholesterol [Mass/Vol] 235 mg/dL Critically high <=200 [facility] Comment on above: Performed By: #### C MP, LIPID #### [facility] [address] [place] [address] Dr. Henrietta Zavala Cholesterol in HDL [Mass/Vol] 47 mg/dL Normal 40-60 [facility] Comment on above: Performed By: #### C MP, LIPID #### [facility] [address] [place] [address] Dr. Henrietta Zavala Cholesterol in LDL [Mass/Vol] 160.8 mg/dL Normal [facility] Comment on above: Performed By: #### C MP, LIPID #### [facility] [address] [address] [address] Henrietta Zavala Cholesterol.total/Ch olesterol in HDL [Mass ratio] 5.0 {ratio} Normal [facility] Comment on above: Performed By: #### C MP, LIPID #### [facility] [address] [address] [address] Henrietta Zavala HDL NORMAL > or = 60 mg/dl - LO W CARDIOVASCULAR RISK <40 mg/dl - HIGH CARDIOVASCULAR RISK Normal [facility] Comment on above: Performed By: #### C MP, LIPID #### [facility] [address] [place] [address] Dr. Henrietta Zavala LDL CALC NORMAL SEE BELOW Normal [facility] Comment on above: Result Comment: <100 mg/dl OPTIMAL 100 - 129 mg/dl NEAR OR ABOVE OPTIMAL 130 - 159 mg/dl BORDERLINE HIGH 160 - 189 mg/dl HIGH >190 mg/dl VERY HIGH Performed By: #### C MP, LIPID #### [facility] [address] [place] [address] Dr. Henrietta Zavala Triglyceride [Mass/Vol] 136 mg/dL Normal <=150 [facility] Comment on above: Performed By: #### C MP, LIPID #### [facility] [address] [place] [address] Dr. Henrietta Zavala VLDL CALC 27.2 mg/dL Normal [facility] Comment on above: Performed By: #### C MP, LIPID #### [facility] [address] [place] [address] Dr. Henrietta Zavala PROF 14(COMP METB)on 022 Albumin [Mass/Vol] 3.2 g/dL Critically low 3.4-5.0 [facility] Comment on above: Performed By: #### C MP, LIPID #### [facility] [address] [place] [address] Dr. Henrietta Zavala Albumin/Globulin [Mass ratio] 0.8 {ratio} Normal [facility] Comment on above: Performed By: #### C MP, LIPID #### [facility] [address] [place] [address] Dr. Henrietta Zavala ALP [Catalytic activity/Vol] 127 U/L Critically high 46-116 [facility] Comment on above: Performed By: #### C MP, LIPID #### [facility] [address] [address] [address] Henrietta Zavala ALT [Catalytic activity/Vol] 55 U/L Normal 14-59 [facility] Comment on above: Performed By: #### C MP, LIPID #### [facility] [address] [address] [address] Henrietta Zavala Anion gap [Moles/Vol] 13.6 mmol/L Normal [facility] Comment on above: Performed By: #### C MP, LIPID #### [facility] [address] [place] [address] Dr. Henrietta Zavala AST [Catalytic activity/Vol] 24 U/L Normal 15-37 [facility] Comment on above: Performed By: #### C MP, LIPID #### [facility] [address] [place] [address] Dr. Henrietta Zavala Bilirubin [Mass/Vol] 0.3 mg/dL Normal 0.2-1.0 [facility] Comment on above: Performed By: #### C MP, LIPID #### [facility] [address] [place] [address] Dr. Henrietta Zavala Calcium [Mass/Vol] 8.8 mg/dL Normal 8.5-10.1 [facility] Comment on above: Performed By: #### C MP, LIPID #### [facility] [address] [address] [address] Henrietta Zavala Chloride [Moles/Vol] 107 mmol/L Normal 98-107 [facility] Comment on above: Performed By: #### C MP, LIPID #### [facility] [address] [address] [address] Henrietta Zavala CO2 [Moles/Vol] 25.6 mmol/L Normal 21.0-32.[address] [facility] Comment on above: Performed By: #### C MP, LIPID #### [facility] [address] [place] [address] Dr. Henrietta Zavala Creatinine [Mass/Vol] 0.77 mg/dL Normal 0.55-1.02 [facility] Comment on above: Performed By: #### C MP, LIPID #### [facility] [address] [place] [address] Dr. Henrietta Zavala EGFR-AF SRI LANKAN >60 Normal >=[address] [facility] Comment on above: Performed By: #### C MP, LIPID #### [facility] [address] [address] [address] Henrietta Zavala EGFR-NON AF SRI LANKAN >60 Normal >=60 [facility] Comment on above: Performed By: #### C MP, LIPID #### [facility] [address] [place] [address] Dr. Henrietta Zavala Globulin (S) [Mass/Vol] 3.8 g/dL Normal [facility] Comment on above: Performed By: #### C MP, LIPID #### [facility] [address] [place] [address] Dr. Henrietta Zavala Glucose [Mass/Vol] 90 mg/dL Normal 74-106 [facility] Comment on above: Performed By: #### C MP, LIPID #### [facility] [address] [place] [address] Dr. Henrietta Zavala Potassium [Moles/Vol] 4.2 mmol/L Normal 3.5-5.1 [facility] Comment on above: Performed By: #### C MP, LIPID #### [facility] [address] [place] [address] Dr. Henrietta Zavala Protein [Mass/Vol] 7.0 g/dL Normal 6.4-8.2 [facility] Comment on above: Performed By: #### C MP, LIPID #### [facility] [address] [place] [address] Dr. Henrietta Zavala Sodium [Moles/Vol] 142 mmol/L Normal 136-145 [facility] Comment on above: Performed By: #### C MP, LIPID #### [facility] [address] [place] [address] Dr. Henrietta Zavala Urea nitrogen [Mass/Vol] 13.0 mg/dL Normal 7.0-18.0 [facility] Comment on above: Performed By: #### C MP, LIPID #### [facility] [address] [place], [place] [address] Dr. Henrietta Zavala Urea nitrogen/Creatinine [Mass ratio] 16.9 mg/mg Normal [facility] Comment on above: Performed By: #### C MP, LIPID #### [facility] [address] [place], [place] [address] Dr. Henrietta Zavala Tobacco Screening.on 021 Fall risk assessment a) No falls within the last year -[facility] 250 DO Work Phone: Tobacco use status [facility] b) No -[facility] 250 DO Work Phone: KNEE LEFT 3 VWSon 03-30-2021 KNEE LEFT 3 VWS [facility] Department of Radiology [address] [place] [id number] ======== Patient Name: ADRIANA RICHARD : 1955 Sex: F Age: Race: White Pt. Location: Patient Status: Ordered Date: 03/30/2021 9:00:00 AM Completed Date: 03/30/2021 09:07 AM Requesting Provider: RAMANDEEP PATEL Attending Provider: Report Copy To: Signs & Symptoms: M25.562 Pain in left knee I10 History: [place] Comments: , , , Ordering Provider - RAMANDEEP PATEL MD , Exam: KNEE LEFT 3 VWS ======== KNEE LEFT 3 [facility] 03/30/2021 9:07 AM CLINICAL INDICATIONS: M25.562 Pain [...] findings. Electronically signed: Jesse Lazaro. Transcribed by: [email or web address], User Resident: Electronically Signed by: JESSE LAZARO @ 03/30/2021 11:00 AM Normal [facility] Comment on above: Order Comment: , , = ========= , Ordering Provider - RAMANDEEP PATEL MD , KNEE RIGHT 3 [facility] 1 KNEE RIGHT 3 [facility] Department of Radiology [address] [place] [id number] ======== Patient Name: ADRIANA RICHARD : 1955 Sex: F Age: Race: White Pt. Location: Patient Status: O Ordered Date: 03/30/2021 9:05:00 AM Completed Date: 03/30/2021 09:07 AM Requesting Provider: RAMANDEEP PATEL Attending Provider: RAMANDEEP PATEL Report Copy To: Signs & Symptoms: M25.569 Pain in unspecified knee I10 History: [place] Comments: Evaluate Exam: KNEE RIGHT 3 VWS [...] reports Electronically signed: Jesse Lazaro. Transcribed by: [email or web address], User Resident: SHALA EATON Electronically Signed by: JESSE LAZARO @ 03/30/2021 03:52 PM I personally read this/these film(s) with this resident Normal [facility] Comment on above: Order Comment: Evalu ate MRI LUMBAR SP W & WO CONTRAS Ton 10-11-2020 MRI LUMBAR SP W & WO CONTRAST STUDY: MRI LUMBAR SP W WO CONTRAST; 10/11/2020 11:35 am INDICATION: POST LAMINECTOMY SYNDROME. COMPARISON: None. ACCESSION NUMBER(S): [id number] ORDERING CLINICIAN: Denis Donohue TECHNIQUE: The lumbar [...] osteomyelitis. * THIS EXAMINATION WAS INTERPRETED AT [facility] Normal [facility] LUMB SP COMP W FLEX/EXT 6 VW Son 09-12-2020 LUMB SP COMP W FLEX/EXT 6 VWS STUDY: LUMB SP COMP W FLEX/EXT 6 VWS ; ; 09/12/2020 8:45 am INDICATION: PAIN. COMPARISON: None. ACCESSION NUMBER(S): [id number] ORDERING CLINICIAN: Denis Donohue FINDINGS: Status post [...] neural foraminal stenosis at L5-S1 level. Normal [facility] PROGRESSon 11-04-2019 PROGRESS HNO ID: [id number] Author: Bridger Ma Service: ? Author Type: Physician Type: Progress Notes Filed: 11/04/2019 5:12 PM Note Text: Bridger Ma MD Department of Orthopaedics Orthopaedics [address] [place] [address] Dept: [phone] October 05, 2019 CHIEF COMPLAINT: New Patient [...] mail or electronic medical record. Caitlyn Cantu, [facility] [address] [facility] [address] Toby Quintana MD [address] [place] [phone] This note was partially generated using Source MDx voice recognition system, and there may be some incorrect words, spellings, and punctuation that were not noted in checking the note before saving. Bridger Ma MD [facility] CNOVon 10-05-2019 CNOV Office Visit (ORMDNA ) ADRIANA DINERO ([id number]) 1955 F Date Time Provider Department 10/05/19 2:45 PM BRIDGER MA During your visit today, we recorded the following information about you: Pulse Blood pressure Weight Height 81/minute 121/58 124.2 kg 1.676 m Eleanor Antione Wa 11/04/2019 5:12 PM Signed Patient presents with: New Patient: Right knee pain - Ref. 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 Patient had an x-ray done at [facility] on 11/02/18 and a MRI on 11/30/18. Patient hand carried copies of the reports and films on a CD. with patient today. Referred by Caitlyn Cantu. Taking [place] and Naproxen for the pain and does not help. Using a walker today and as needed at home. Bridger Ma MD 11/04/2019 5:12 PM Signed Bridger Ma MD Department of Orthopaedics Orthopaedics [address] [place] [address] Dept: [phone] October 05, 2019 CHIEF COMPLAINT: New Patient [...] or electronic medical record. LIZZY Graham [address] [facility] [address] Toby Quintana MD [address] [place] [phone] This note was partially generated using Source MD[employer] voice recognition system, and there may be some incorrect words, spellings, and punctuation that were not noted in checking the note before saving. Bridger Ma MD Referring Provider: CAITLYN CANTU [[id number]] Allergies As of Date: 10/05/2019 Noted Allergy [...] mg injection (CELESTONE)Disp: Rfl: [facility] [[id number]] Order #: [id number]: 1 Large Joint Arthro/Inj: R knee joint [BXW255] Order #: [id number] betamethasone acetate-betamethasone sodium phosphate 6 mg injection [...] Status:Closed by BRIDGER MA MD on 11/04/19 [facility] PROGRESSon 10-05-2019 PROGRESS HNO ID: [id number] Author: Eleanor Talbot Ma Service: ? 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 Patient had an x-ray done at [facility] on 11/02/18 and a MRI on 11/30/18. Patient hand carried copies of the reports and films on a CD. with patient today. Referred by Caitlyn Cantu. Taking [place] and Naproxen for the pain and does not help. Using a walker today and as needed at home. Normal [facility] CREATININEon 08-26-2019 Creatinine [Mass/Vol] 0.80 mg/dL Normal 0.50 - 1.05 [facility] Comment on above: Performed By: #### C REAT #### [address] [address] Creatinine [Mass/Vol] mg/dL Normal >60 [facility] Comment on above: Performed By: #### C REAT #### [address] [address] Result Comment: CALC ULATIONS OF ESTIMATED GFR ARE PERFORMED USING THE MDRD STUDY EQUATION FOR THE IDMS-TRACEABLE CREATININE METHODS. CLIN CHEM 2007;53:766-72 ELECTROLYTE PANELon 08-26-20 19 Anion gap [Moles/Vol] 14 mmol/L Normal 10 - 20 [facility] Comment on above: Performed By: #### E LECT #### [address] [address] Chloride [Moles/Vol] 104 mmol/L Normal 98 - 107 [facility] Comment on above: Performed By: #### E LECT #### [address] [address] HCO3 (Bld) [Moles/Vol] 29 mmol/L Normal 21 - 32 [facility] Comment on above: Performed By: #### E LECT #### [address] [address] Potassium [Moles/Vol] 4.6 mmol/L Normal 3.5 - 5.3 [facility] Comment on above: Performed By: #### E LECT #### [address] [address] Sodium [Moles/Vol] 142 mmol/L Normal 136 - 145 [facility] Comment on above: Performed By: #### E LECT #### [address] [address] UREA NITROGENon 08-26-2019 Urea nitrogen [Mass/Vol] 14 mg/dL Normal 6 - 23 [facility] Comment on above: Performed By: #### U CARLOS #### [address] [address] [facility] CARDIAC STRESS/REST INJE CTIONon 08-25-2019 [facility] CARDIAC STRESS/REST INJECTION Patient Name: ADRIANA DINERO STUDY: MYOCARDIAL PERFUSION STRESS TEST WITH LEXISCAN Performing facility: [facility], [address] [place] [address], [address] [id number] [facility] Provider: GURU LU PCP: Dr. Poli QUINTANA Supervising provider: Poli VILLAFANA INDICATION: DYSPNEA EDEMA HISTORY: Gender: F; Age: 64 y/o ; Height: 170.18 cm; Weight: 127.264155 kg. SOB High Cholesterol; Family HX CAD; PALPITATIONS COMPARISON: ACCESSION NUMBER(S): [id number] ORDERING CLINICIAN: IBAN LU TECHNIQUE: TWO DAY [...] Electronically signed by: IBAN LU MD Normal [facility] OT-MRI KNEE RT WO CON IMPORT on 07-27-2019 OT-MRI KNEE RT WO CON IMPORT Images were obtained outside of [facility] [id number] Normal [facility] CNOVon 07-07-2019 CNOV Office Visit (SPNMED ) ADRIANA DINERO ([id number]) 1955 F Date Time Provider Department 07/07/19 9:40 AM CAITLYN CANTU SPNMED During your visit today, we recorded the following information about you: Pulse Blood pressure Weight Height 80/minute 126/55 124.1 kg 1.676 m LIZZY Graham 07/07/2019 1:08 PM Signed BEVERLEY Lopez [facility] [address] [place] [address] 07/07/2019 Assessment Diagnosis: Encounter Diagnosis ICD-10-CM 1. [...] told for multiple years that she has nuyg-pi-oaml arthritis in the right knee and this [...] record for those providers who practice within [facility] or with access to [employer] via MD Connect, or via letter. - [...] past--performed in [address] Jones in [place]. The procedure was a spinal laminectomy and fusion L2-4, and subsequent revision L2-5 lami/fusion with posterior hardware and interbody cages. 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 Author Type: Physician Loss Prevention Officer Type: Progress Notes Filed: 07/07/2019 1:08 PM Note Text: Caitlyn Cantu PA-C [facility] [address] [place] [address] 07/07/2019 Assessment Diagnosis: Encounter Diagnosis ICD-10-CM 1. [...] told for multiple years that she has gmws-iz-cdtz arthritis in the right knee and this [...] record for those providers who practice within [facility] or with access to [employer] via MD Connect, or via letter. SUBJECTIVE: [...] past--performed [place] [address] Jones in [place]. The procedure was a spinal laminectomy and fusion L2-4, and subsequent revision L2-5 lami/fusion with posterior hardware and interbody cages. 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 IMAGING STUDIES: See above Normal [facility] CT-CT cervical spine w con I MPORTon 04-08-2019 CT-CT cervical spine w con IMPORT Images were obtained outside of [facility] [id number] Normal [facility] CT-CT cervical spine w con IMPORT Images were obtained outside of [facility] [id number] Normal [facility] CT-CT cervical spine w con IMPORT Images were obtained outside of [facility] [id number] Normal [facility] CT-CT lumbar spine w con IMP Edi 04-08-2019 CT-CT lumbar spine w con IMPORT Images were obtained outside of [facility] [id number] Normal [facility] CT-CT lumbar spine w con IMPORT Images were obtained outside of [facility] [id number] Normal [facility] CT-CT lumbar spine w con IMPORT Images were obtained outside of [facility] [id number] Normal [facility] OT-IR myelogram spine total IMPORTon 04-08-2019 OT-IR myelogram spine total IMPORT Images were obtained outside of [facility] [id number] Normal [facility] OT-IR myelogram spine total IMPORT Images were obtained outside of [facility] [id number] Normal [facility] OT-IR myelogram spine total IMPORT Images were obtained outside of [facility] [id number] Normal [facility] OT-MRI C-SPINE WO CON IMPORT on 02-25-2019 OT-MRI C-SPINE WO CON IMPORT Images were obtained outside of [facility] [id number] Normal [facility] OT-XR KNEE RT 4V OR > IMPORT on 11-30-2018 OT-XR KNEE RT 4V OR > IMPORT Images were obtained outside of [facility] [id number] Normal [facility] Vital Signs Date Time Vital Sign Value Performing Clinician Facility 02-08-2025 08:57-0400 Body height 165.1 cm PHYSICIAN NO [facility] 02-08-2025 08:57-0400 Body mass index (BMI) [Ratio] 35.1 kg/m2 PHYSICIAN NO [facility] 02-08-2025 08:57-0400 Body weight 95.7 kg PHYSICIAN NO [facility] 02-08-2025 08:57-0400 Diastolic blood pressure 79 mm[Hg] PHYSICIAN NO [facility] 02-08-2025 08:57-0400 Heart rate 72 /min PHYSICIAN NO [facility] 02-08-2025 08:57-0400 SaO2% (BldA) [Mass fraction] 98 % PHYSICIAN NO [facility] 02-08-2025 08:57-0400 Systolic blood pressure 112 mm[Hg] PHYSICIAN NO [facility] 01-03-2025 11:55-0500 Blood Pressure Location SHANAT PHOEBE [facility] 01-03-2025 11:55-0500 Diastolic blood pressure 83 mm[Hg] SHANTA PHOEBE [facility] 01-03-2025 11:55-0500 Heart rate 68 /min SHANTA PHOEBE [facility] 01-03-2025 11:55-0500 Respiratory rate 18 /min SHANTA PHOEBE [facility] 01-03-2025 11:55-0500 Systolic blood pressure 117 mm[Hg] SHANTA PHOEBE [facility] 12-17-2024 10:58-0500 Blood Pressure Location SHANTA PHOEBE [facility] 12-17-2024 10:58-0500 Diastolic blood pressure 80 mm[Hg] SHANTA PHOEBE [facility] 12-17-2024 10:58-0500 Heart rate 63 /min SHANTA SANDHU [facility] 12-17-2024 10:58-0500 Respiratory rate 18 /min SHANTA SANDHU [facility] 12-17-2024 10:58-0500 Systolic blood pressure 125 mm[Hg] SHANTA PHOEBE [facility] 12-07-2024 10:49-0500 Body height 165.1 cm PHYSICIAN NO [facility] 12-07-2024 10:49-0500 Body mass index (BMI) [Ratio] 36.6 kg/m2 PHYSICIAN NO [facility] 12-07-2024 10:49-0500 Body temperature 97.3 [degF] PHYSICIAN NO [facility] 12-07-2024 10:49-0500 Body weight 99.79 kg PHYSICIAN NO [facility] 12-07-2024 10:49-0500 Diastolic blood pressure 77 mm[Hg] PHYSICIAN NO [facility] 12-07-2024 10:49-0500 Heart rate 70 /min PHYSICIAN NO [facility] 12-07-2024 10:49-0500 SaO2% (BldA) [Mass fraction] 97 % PHYSICIAN NO [facility] 12-07-2024 10:49-0500 Systolic blood pressure 113 mm[Hg] PHYSICIAN NO [facility] 08-12-2024 09:23-0400 Body height 165.1 cm [facility] 08-12-2024 09:23-0400 Body mass index (BMI) [Ratio] 39.2 kg/m2 [facility] 08-12-2024 09:230400 Body weight 106.76 kg [facility] 08-12-2024 09:23-0400 Diastolic blood pressure 72 mm[Hg] [facility] 08-12-2024 09:23-0400 Heart rate 75 /min [facility] 08-12-2024 09:23-0400 Respiratory rate 16 /min [facility] 08-12-2024 09:23-0400 SaO2% (BldA) [Mass fraction] 96 % [facility] 08-12-2024 09:23-0400 Systolic blood pressure 128 mm[Hg] [facility] 06-10-2024 10:23-0400 Diastolic blood pressure 86 mm[Hg] Chetna Cordero MD Work Phone: [facility] 06-10-2024 10:23-0400 Systolic blood pressure 122 mm[Hg] Chetna Cordero MD Work Phone: [facility] 06-10-2024 10:20-0400 Body height 170.2 cm Chetna Cordero MD Work Phone: [facility] 06-10-2024 10:20-0400 Body mass index (BMI) [Ratio] 34.46 kg/m2 Chetna Cordero MD Work Phone: [facility] 06-10-2024 10:20-0400 Body weight 99.79 kg Chetna Cordero MD Work Phone: [facility] 06-10-2024 10:20-0400 Heart rate 74 /min Chetna Cordero MD Work Phone: [facility] 06-10-2024 10:20-0400 SaO2% (BldA) [Mass fraction] 98 % Chetna Cordero MD Work Phone: [facility] 04-30-2024 09:120400 Body height 165.1 cm [facility] 04-30-2024 09:12-0400 Body mass index (BMI) [Ratio] 39.6 kg/m2 [facility] 04-30-2024 09:12-0400 Body weight 107.95 kg [facility] 04-30-2024 09:12-0400 Diastolic blood pressure 74 mm[Hg] [facility] 04-30-2024 09:12-0400 Heart rate 75 /min [facility] 04-30-2024 09:12-0400 Systolic blood pressure 109 mm[Hg] [facility] 03-22-2024 13:18-0400 Body height 165.1 cm [facility] 03-22-2024 13:18-0400 Body mass index (BMI) [Ratio] 39.7 kg/m2 [facility] 03-22-2024 13:18-0400 Body weight 108.4 kg [facility] 03-22-2024 13:18-0400 Diastolic blood pressure 77 mm[Hg] [facility] 03-22-2024 13:18-0400 Heart rate 75 /min [facility] 03-22-2024 13:18-0400 Systolic blood pressure 127 mm[Hg] [facility] 02-10-2024 13:04-0400 Body height 167.64 cm [facility] 02-10-2024 13:04-0400 Body mass index (BMI) [Ratio] 38.5 kg/m2 [facility] 02-10-2024 13:04-0400 Body weight 108.4 kg [facility] 02-10-2024 13:04-0400 Diastolic blood pressure 73 mm[Hg] [facility] 02-10-2024 13:04-0400 Heart rate 85 /min [facility] 02-10-2024 13:04-0400 Systolic blood pressure 105 mm[Hg] [facility] 01-19-2024 08:44-0400 Body height 167.64 cm [facility] 12-30-2023 09:55-0500 Body height 167.64 cm [facility] 12-30-2023 09:55-0500 Body mass index (BMI) [Ratio] 38.9 kg/m2 [facility] 12-30-2023 09:55-0500 Body weight 109.31 kg [facility] 12-30-2023 09:55-0500 Diastolic blood pressure 76 mm[Hg] [facility] 12-30-2023 09:55-0500 Heart rate 69 /min [facility] 12-30-2023 09:55-0500 Systolic blood pressure 120 mm[Hg] [facility] 12-09-2023 10:32-0500 Diastolic blood pressure 80 mm[Hg] Iban uL MD Work Phone: [facility] 12-09-2023 10:32-0500 Systolic blood pressure 130 mm[Hg] Iban Lu MD Work Phone: [facility] 12-09-2023 09:46-0500 Body height 167.6 cm Iban Lu MD Work Phone: [facility] 12-09-2023 09:46-0500 Body mass index (BMI) [Ratio] 39.06 kg/m2 Iban Lu MD Work Phone: [facility] 12-09-2023 09:46-0500 Body weight 109.77 kg Iban Lu MD Work Phone: [facility] 12-09-2023 09:46-0500 Heart rate 68 /min Iban Lu MD Work Phone: [facility] 08-20-2023 09:00-0400 Body height 167.64 cm Toby Quintana Other [employer] [facility] [employer] Other 08-20-2023 09:00-0400 Body mass index (BMI) [Ratio] 38.38 kg/m2 Toby Quintana Other [employer] Other 08-20-2023 09:00-0400 Body weight 107.87 kg Toby Quintana Other [employer] [facility] [employer] Other 08-20-2023 09:00-0400 Diastolic blood pressure 75 mm[Hg] Toby Quintana Other [employer] Other 08-20-2023 09:00-0400 Systolic blood pressure 108 mm[Hg] Toby Quintana Other [employer] Other 04-24-2023 11:15-0400 Body height 167.64 cm Toby Quintana Other [employer] Other 04-24-2023 11:15-0400 Body mass index (BMI) [Ratio] 38.73 kg/m2 Toby Quintana Other [employer] Other 04-24-2023 11:15-0400 Body weight 108.86 kg Toby Quintana Other [employer] Other 04-24-2023 11:15-0400 Diastolic blood pressure 79 mm[Hg] Toby Quintana Other [employer] Other 04-24-2023 11:15-0400 Systolic blood pressure 114 mm[Hg] Toby Quintana Other [employer] Other 02-07-2023 09:30-0400 Body height 167.64 cm Toby Quintana Other [employer] Other 02-07-2023 09:30-0400 Body mass index (BMI) [Ratio] 39.99 kg/m2 Toby Quintana Other [employer] Other 02-07-2023 09:30-0400 Body weight 112.4 kg Toby Quintana Other [employer] Other 02-07-2023 09:30-0400 Diastolic blood pressure 68 mm[Hg] Toby Quintana Other [employer] Other 03-31-2023 09:30-0400 Respiratory rate 18 /min Toby Quintana Other [employer] Other 02-07-2023 09:30-0400 SaO2% (BldA) [Mass fraction] 93 % Toby Quintana Other [employer] Other 02-07-2023 09:30-0400 Systolic blood pressure 142 mm[Hg] Toby Quintana Other [employer] Other 01-08-2023 10:00-0500 Body height 167.64 cm [employer] Other [facility] Other 01-08-2023 10:00-0500 Body mass index (BMI) [Ratio] 40.19 kg/m2 [employer] Other [employer] Other 01-08-2023 10:00-0500 Body weight 112.95 kg [employer] Other [employer] Other 12-09-2022 13:25-0500 Body height 167.64 cm Toby Quintana Work Phone: [facility] [employer] 250 DO Work Phone: 12-09-2022 13:25-0500 Body mass index (BMI) [Ratio] 40.03 kg/m2 Toby Quintana Work Phone: [facility] [employer] 250 DO Work Phone: 12-09-2022 13:25-0500 Body surface area Derived from formula 2.19 m2 Toby Quintana Work Phone: [facility] 250 DO Work Phone: 12-09-2022 13:25-0500 Body weight 112.49 kg oTby Quintana Work Phone: [facility] [employer] 250 DO Work Phone: 12-09-2022 13:25-0500 Diastolic blood pressure 80 mm[Hg] Toby Quintana Work Phone: [facility] [employer] 250 DO Work Phone: 12-09-2022 13:25-0500 Heart rate 78 /min Toby Quintana Work Phone: [facility] [employer] 250 DO Work Phone: 12-09-2022 13:25-0500 Systolic blood pressure 118 mm[Hg] Toby Quintana Work Phone: [facility] [employer] 250 DO Work Phone: 11-22-2022 09:00-0500 Body height 167.64 cm Leeann Blades Other [employer] Other 11-22-2022 09:00-0500 Body mass index (BMI) [Ratio] 39.54 kg/m2 Leeann Blades Other [employer] Other 11-22-2022 09:00-0500 Body weight 111.13 kg Leeann Blades Other [employer] Other 09-04-2021 13:27-0400 Body height 170.18 cm Toby Quintana Work Phone: [facility] [employer] 250 DO Work Phone: 09-04-2021 13:27-0400 Body mass index (BMI) [Ratio] 39.78 kg/m2 Toby Quintana Work Phone: [facility] [employer] 250 DO Work Phone: 09-04-2021 13:27-0400 Body surface area Derived from formula 2.24 m2 Toby Quintana Work Phone: [facility] 250 DO Work Phone: 09-04-2021 13:27-0400 Body weight 115.21 kg Toby Quintana Work Phone: [facility] 250 DO Work Phone: 09-04-2021 13:27-0400 Diastolic blood pressure 78 mm[Hg] Toby Quintana Work Phone: [facility] 250 DO Work Phone: 09-04-2021 13:27-0400 Heart rate 80 /min Toby Quintana Work Phone: [facility] 250 DO Work Phone: 09-04-2021 13:27-0400 Systolic blood pressure 104 mm[Hg] Toby Quintana Work Phone: [facility] 250 DO Work Phone: Encounters Encounter Date Encounter Type Care Provider Facility Start: 04-11-2025 ambulatory SHANTA SANDHU Facili ty:[facility] [place] Start: 02-08-2025 End: 02-08-2025 ambulatory PHYSICIAN [facility] Work Phone: Start: 02-08-2025 End: 02-08-2025 Patient encounter procedure PHYSICIAN [facility] Work Phone: Start: 01-21-2025 End: 01-21-2025 ambulatory LAURA RON-AMANKRA Facility:[facility] [place] Start: 01-03-2025 End: 01-03-2025 ambulatory SHANTA Kanwal PHOEBE Facility:[facility] Start: 01-03-2025 End: 01-03-2025 Patient encounter procedure SHANTA SANDHU [facility] Start: 12-28-2024 End: 12-28-2024 Lab Drop off SHANTA SANDHU [facility] Start: 12-28-2024 End: 12-28-2024 ambulatory SHANTA Kanwal SANDHU Facility:[facility] Start: 12-28-2024 End: 12-28-2024 Patient encounter procedure SHANTA SANDHU [facility] Start: 12-17-2024 End: 12-17-2024 ambulatory TOBY QUINTANA Facility: [place] Start: 12-17-2024 End: 12-17-2024 Patient encounter procedure SHANTA SANDHU [facility] Start: 12-15-2024 ambulatory SHANTA GRIFFINRY Facility : [place] Start: 12-13-2024 End: 12-13-2024 ambulatory PHYSICIAN NO [facility] Work Phone: Start: 12-13-2024 End: 12-13-2024 Patient encounter procedure PHYSICIAN NO [facility] Work Phone: Start: 12-13-2024 End: 12-13-2024 ambulatory PHYSICIAN NO [facility] Work Phone: Start: 12-13-2024 End: 12-13-2024 Departed Referred PHYSICIAN NO [facility] [place] Work Phone: Start: 12-07-2024 End: 12-07-2024 ambulatory PHYSICIAN NO [facility] Work Phone: Start: 12-07-2024 End: 12-07-2024 Patient encounter procedure PHYSICIAN NO [facility] Work Phone: Start: 12-01-2024 End: 12-01-2024 ambulatory Toby Quintana [facility] Work Phone: Start: 12-01-2024 End: 12-01-2024 Departed Referred Toby Quintana MD Work Phone: [facility] [place] Work Phone: Start: 11-30-2024 End: 11-30-2024 ambulatory [facility] Work Phone: Start: 11-30-2024 End: 11-30-2024 Patient encounter procedure [facility] Work Phone: Start: 10-11-2024 End: 10-11-2024 Non-patient / Non-visit [facility] Work Phone: Start: 09-17-2024 Non-patient / Non-visit [facility] Work Phone: Start: 09-11-2024 Non-patient / [facility] Work Phone: Start: 09-10-2024 Non-patient / Non-visit [facility] Work Phone: Start: 09-09-2024 Non-patient / Non-visit [facility] Work Phone: Start: 09-07-2024 Non-patient / Non-visit [facility] Work Phone: Start: 09-07-2024 Non-patient / [facility]: Start: 09-07-2024 Non-patient / Non-visit [facility] Work Phone: Start: 09-06-2024 Non-patient / [facility] Work Phone: Start: 08-12-2024 End: 08-12-2024 ambulatory [facility] Work Phone: Start: 08-12-2024 End: 08-12-2024 Patient encounter procedure [facility] Work Phone: Start: 06-16-2024 End: 06-17-2024 Telephone encounter Franklin Norman MD Work Phone: [facility] Start: 06-10-2024 End: 06-10-2024 Office outpatient new 30 minutes Chetna Cordero MD Work Phone: [facility] Comment on above: Bilateral leg edema (Primary Dx); PVD (peripheral vascular disease) ([facility]); Lower extremity pain, bilateral Start: 05-18-2024 End: 05-18-2024 Telephone encounter Fernanda Bassett CMA [facility] Start: 04-30-2024 End: 04-30-2024 ambulatory [facility] Work Phone: Start: 04-30-2024 End: 04-30-2024 Patient encounter procedure [facility] Work Phone: Start: 03-22-2024 End: 03-22-2024 ambulatory [facility] Work Phone: Start: 03-22-2024 End: 03-22-2024 Patient encounter procedure [facility] Work Phone: Start: 02-10-2024 End: 02-10-2024 ambulatory [facility] Work Phone: Start: 02-10-2024 End: 02-10-2024 Patient encounter procedure [facility] Work Phone: Start: 01-19-2024 End: 01-19-2024 Patient encounter procedure [facility] Work Phone: Start: 01-14-2024 Non-patient / Non-visit [facility] Work Phone: Start: 01-05-2024 Non-patient / Non-visit [facility] Work Phone: Start: 12-30-2023 Patient encounter procedure [facility] Start: 12-30-2023 End: 12-30-2023 ambulatory [facility] Work Phone: Start: 12-30-2023 End: 12-30-2023 Patient encounter [facility] Work Phone: Start: 12-19-2023 End: 12-19-2023 ambulatory Toby Quintana Other [facility] Other Start: 12-19-2023 Telephone encounter Toby Quintana [facility] Start: 12-17-2023 End: 12-17-2023 ambulatory Toby Quintana Other [facility] Other Start: 12-17-2023 Telephone encounter Toby Quintana [facility] Start: 12-16-2023 (Televisit) Televisit Toby Quintana [facility] Start: 12-16-2023 End: 12-16-2023 ambulatory Toby Quintana Other [facility] Other Start: 12-09-2023 End: 12-09-2023 Office outpatient visit 25 minutes Iban Lu MD Work Phone: [facility] Comment on above: Supraventricular tac hycardia by ECG (Primary Dx); Mixed hyperlipidemia; Palpitations; Class II obesity Start: 12-09-2023 End: 12-09-2023 ambulatory IB[facility] Start: 12-08-2023 End: 12-08-2023 ambulatory Toby Quintana Other [facility] Other Start: 12-08-2023 Telephone encounter Toby Quintana [facility] Start: 11-04-2023 End: 11-04-2023 ambulatory Toby Quintana Other [facility] Other Start: 11-04-2023 Telephone encounter Toby Quintana [facility] Start: 10-21-2023 (Televisit) Televisit Toby Quintana [facility] Start: 10-21-2023 End: 10-21-2023 ambulatory Toby Quintana Other [facility] Other Start: 10-21-2023 End: 10-21-2023 Patient encounter procedure [facility] Work Phone: Start: 10-20-2023 End: 10-20-2023 ambulatory Toby Quintana Other [facility] Other Start: 10-20-2023 Telephone encounter Toby Mariano [facility] Start: 09-25-2023 (Televisit) Televisit Toby Quintana Ke[facility] Start: 09-25-2023 End: 09-25-2023 ambulatory Toby Quintana Other [facility] Other Start: 09-22-2023 (Televisit) Televisit Toby Quintana [facility] Start: 09-22-2023 End: 09-22-2023 ambulatory Toby Mariano Other [facility] Other Start: 09-22-2023 Telephone encounter Toby Mariano [facility] Start: 08-20-2023 End: 08-20-2023 ambulatory Toby Quintana Other [facility] Other Start: 08-20-2023 Patient encounter procedure Toby Mariano [facility] Start: 05-22-2023 Telephone encounter Toby eugene Work Phone: [facility] 600 DO Work Phone: Start: 05-12-2023 End: 05-12-2023 ambulatory Toby Quintana Other [facility] Other Start: 05-12-2023 Telephone encounter Toby Quintana [facility] Start: 04-24-2023 End: 04-24-2023 ambulatory Toby Quintana Other [facility] Other Start: 04-24-2023 Office outpatient vi sit 15 minutes Toby Quintana [facility] Start: 04-11-2023 End: 04-11-2023 ambulatory Toby Quintana Other [facility] Other Start: 04-11-2023 Telephone encounter Toby Quintana [facility] Start: 03-13-2023 End: 03-13-[address] EVIN BYERS Facility:UNKNOWN Start: 03-13-[address] Toby Quintana Facility:[id number] Start: 02-07-2023 End: 02-07-2023 ambulatory Toby Quintana Other [facility] Other Start: 02-07-2023 Patient encounter procedure Toby Quintana [facility] Start: 02-03-2023 End: 02-03-2023 ambulatory Leeann Blades Other [facility] Other Start: 02-03-2023 Telephone encounter Leeann Blades [facility] [employer] Start: 01-27-2023 End: 01-27-2023 ambulatory Leeann Blades Other [facility] Other Start: 01-27-2023 Telephone encounter Leeann Blades [facility] Start: 01-21-[address] TOBY QUINTANA Facil ity:H1 Start: 01-16-2023 End: 01-16-2023 ambulatory Samuel Chatman II Other [facility] Other Start: 01-16-2023 Telephone encounter Samuel Chatman II [facility] [employer] Start: 01-08-2023 FQHC visit new patient Samuel tyler II [facility] Start: 01-08-2023 End: 01-08-2023 ambulatory MD Toby Quintana Work Phone: [facility] Work Phone: Start: 01-08-2023 End: 01-08-2023 Patient encounter procedure MD Toby Quintana Work Phone: [facility] [place] [facility] Start: 01-02-2023 End: 01-02-2023 ambulatory Toby Quintana Other [facility] Other Start: 01-02-2023 Telephone encounter Leeann Blades F [facility] Start: 12-30-2022 End: 12-30-2022 ambulatory Leeann Blades Other [facility] Other Start: 12-30-2022 Telephone encounter Leeann Blades F [facility] Start: 12-26-2022 End: 12-26-2022 ambulatory Leeann Blades Other [facility] Other Start: 12-26-2022 Telephone encounter Eleann Blades F [facility] Start: 12-19-2022 End: 12-19-2022 ambulatory Leeann Blades Other [facility] Other Start: 12-19-2022 Telephone encounter Leeann Blades F [facility] Start: 12-17-2022 End: 12-17-2022 ambulatory Toby Quintana Other [facility] Other Start: 12-17-2022 Telephone encounter Toby Quintana [facility] Start: 12-10-2022 End: 12-10-2022 ambulatory Toby Quintana Other [facility] Other Start: 12-10-2022 Telephone encounter Toby Quintana [facility] Start: 12-09-2022 Office outpatient vi sit 25 minutes Toby Quintana Work Phone: [facility] 250 DO Work Phone: Start: 12-09-[address] Iban Lu Facility: Start: 11-25-2022 End: 11-25-2022 ambulatory Leeann Quintana Other [facility] [employer] Other Start: 11-25-2022 Telephone encounter Leeann Quintana [facility] [employer] Start: 11-22-2022 Office outpatient ne w 45 minutes Leeann Quintana [facility] Start: 11-22-2022 End: 11-22-2022 ambulatory MD Toby Quintana Work Phone: [facility] Work Phone: Start: 11-22-2022 End: 11-22-2022 Patient encounter procedure MD Toby Quintana Work Phone: [facility] [place] Work Phone: Start: 11-05-2022 Adult health examination Nannette Quintana Other [facility] [employer] Other Start: 11-05-2022 Pre-procedure evalua tion check Toby Quintana Other [facility] [employer] Other Start: 10-04-2022 End: 10-05-[address] SHALA OMER Facility:H1 Start: 09-16-2022 Rx Renewal Toby Quintana Work Phone: [facility] 250 DO Work Phone: Start: 07-24-2022 End: 07-24-[address] TOBY QUINTANA Facility:H1 Start: 07-22-2022 End: 07-22-[address] LAUREL BRAVO Facility:H1 Start: 04-18-2022 Encounter for genera l adult medical examination without abnormal findings DR TOBY QUINTANA [facility] Start: 04-13-2022 End: 04-14-[address] TOBY QUINTANA Facility:H1 Start: 04-12-2022 End: 04-13-[address] TOBY QUINTANA Facility:H1 Start: 04-12-2022 End: 04-13-2022 Encounter for general adult medical examination without abnormal findings DR TOBY QUINTANA Facility:H1 Start: 09-04-2021 FUV, Provider: Iban Lu, Status: Pen, Time: 2:00 PM Toby Quintana Work Phone: [facility] [address] [place] Work Phone: Start: 09-04-2021 Office outpatient vi sit 25 minutes Toby Quintana Work Phone: [facility] 250 DO Work Phone: Start: 08-30-2021 Rx Renewal Toby Quintana Work Phone: [facility] [address] [place] Work Phone: Procedures Date Procedure Procedure Detail Performing Clinician Start: 12-13-2024 Urine culture PHYSICIAN NO FAMILY Start: 12-01-2024 Urine culture Toby desir MD [...] Hysterectomy SHANTA SANDHU Procedure on back Toby eugene Work Phone: Plan of Treatment Date Care Activity Detail Author Start: 06-10-2025 Adult BMI Screening Adult BMI Screen ing [facility] Start: 06-10-2025 Tobacco Screening Tobacco Screening [facility] Start: 12-13-2024 Bacteria identified in Urine by Culture Urine Culture [facility] Start: 12-13-2024 Patient referral [facility] Work Phone: Start: 12-13-2024 Urine culture [facility] Start: 12-09-2024 End: 12-09-2024 Patient encounter procedure 12/09/2024 9:00 AM EST Office Visit [facility] [address] [facility] [address] [place] [id number] Iban Lu MD [address] [facility] [address] [place] [address] [facility] Start: 12-01-2024 Bacteria identified in Urine by Culture Urine Culture [facility] Start: 12-01-2024 Urine culture [facility] Start: 09-12-2024 DTaP,Tdap and Td Vaccines (3 - Td or Tdap) DTaP,Tdap and Td Vaccines (3 - Td or Tdap) [facility] Start: 07-11-2024 Influenza vaccination Influenza Vacc ine [facility] Start: 04-30-2024 Patient referral [facility] Work Phone: Start: 03-22-2024 Patient referral [facility] Work Phone: Start: 01-19-2024 Patient referral [facility] Work Phone: Start: 12-09-2023 End: 12-09-2024 Basic metabolic 2000 panel - Serum or Plasma Basic Metabolic Panel Lab Routine Supraventricular tachycardia by ECG Palpitations Expected: 12/09/2023 (Approximate), Expires: 12/09/2024 [facility] Service Area Work Phone: Comment on above: Expected: 12/09/2023 (Approximate), Expires: 12/09/2024 Start: 12-09-2023 FUV, Provider: Iban Lu, Status: Pen, Time: 10:00 AM FUV, Provider: Iban Lu, Status: Pen, Time: 10:00 AM [facility] [employer] 250 DO Work Phone: Start: 07-11-2023 COVID-19 Vaccine ( season) COVID-19 Vaccine ( season) [facility] Start: 07-11-2023 Influenza vaccination Influenza Vacc ine (#1) [facility] Start: 09-20-2022 FUV, Provider: Iban Lu, Status: Pen, Time: 2:20 PM FUV, Provider: Iban Lu, Status: Pen, Time: 2:20 PM [facility] [employer] 250 DO Work Phone: Start: 09-05-2022 FUV, Provider: Iban Lu, Status: Pen, Time: 11:20 AM FUV, Provider: Iban Lu, Status: Pen, Time: 11:20 AM [facility] [employer] 250 DO Work Phone: Start: 01-19-2021 Fall Risk Screening Fall Risk Screen ing [facility] Start: 01-19-2006 Zoster Vaccines (1 of 2) Zoster Vacc zbigniew (1 of 2) [facility] Start: 1996 Screening for malign ant neoplasm of breast Mammogram [facility] Start: 01-19-1978 DTaP/Tdap/Td Vaccine s (1 - Tdap) DTaP/Tdap/Td Vaccines (1 - Tdap) [facility] Start: 01-19-1975 Administration of varicella zoster vaccine Zoster (Shingles) Vaccine (1 of 2) [facility] Start: 01-19-1975 DTaP,Tdap and Td Vaccines (1 - Tdap) DTaP,Tdap and Td Vaccines (1 - Tdap) [facility] Start: 01-19-1974 Adult BMI Follow Up Plan Adult BMI F ollow Up Plan [facility] Start: 01-19-1974 Adult BMI Screening Adult BMI Screen ing [facility] Start: 01-19-1974 Hepatitis C screening Hepatitis C Sc reening [facility] Start: 1968 Depression Screening Depression Scre ening [facility] Start: 1968 Tobacco Screening Tobacco Screening [facility] Start: 01-19-1962 Pneumococcal Vaccine : 65+ Years (1 - PCV) Pneumococcal Vaccine: 65+ Years (1 - PCV) [facility] Start: 1956 Lipid panel Lipid Panel [facility] Start: 1956 Medicare Annual Well ness Visit Medicare Annual Wellness Visit (AWV) [facility] Start: 1956 Screening for malign ant neoplasm of colon [facility] Start: 1956 Screening for osteoporosis Bone Density Scan [facility] metabo lic 1999 panel - Serum or Plasma [facility] metabo lic 1999 panel - Serum or Plasma [facility] Patient referral [facility] Work Phone: Rheumatoid factor [Units/volume] in Serum or Plasma [facility] Urine culture [facility] Urine culture [facility] US Lower extremity v ein - bilateral [facility] Immunizations Immunization Date Immunization Notes Care Provider Fa vern 09-06-2022 Pfizer COVID-19 Vac Bivalent 30 MCG/0.3ML Intramuscular Suspension Toby Quintana Work Phone: [facility] 07-02-2021 Pfizer-BioNTech COVI D-19 Vacc 30 MCG/0.3ML Intramuscular Suspension Toby Quintana Work Phone: [facility] Comment on above: Series: Result Comment: 2024: [id number] 06-11-2021 Pfizer-BioNTech COVI D-19 Vacc 30 MCG/0.3ML Intramuscular Suspension Toby Quintana Work Phone: [facility] Comment on above: Series: Result Comment: 2024: [id number] 09-12-2014 tetanus and diphther ia toxoids, adsorbed, preservative free, for adult use (5 Lf of tetanus toxoid and 2 Lf of diphtheria toxoid) Toby Quinatna Other [facility] 09-15-2013 tetanus and diphther ia toxoids, adsorbed, preservative free, for adult use (5 Lf of tetanus toxoid and 2 Lf of diphtheria toxoid) Toby Quintana Other [facility] 09-14-2013 influenza, seasonal, injectable Toby Quintana Work Phone: [facility] 09-14-2013 influenza virus vacc ine, unspecified formulation Iban Lu MD Work Phone: [facility] 08-10-2013 influenza virus vacc ine, unspecified [...] polysaccharide vaccine, 23 valent Toby Quintana Other [facility] Payers Date Payer Category Payer Self-pay [id number] 2023 Medicare [employer] MEDICARE A ETNA MEDICARE VALUE PLAN [id number] 2023-Present [address] [place] [address] [id number] 2023 Medicare [id number] 2009 Private Health Insurance [employer]ITS [id number] 2009-Present [phone] [address] [address] [place] [address] [id number]. [id number] 1959 Unknown [id number] 1959 Unknown [id number] 2.16.840.1.764130.19 1956 Unknown [id number] 2.16.840.1.588949.3.579.2. 593 1956 Unknown [id number] 2.16.840.1.539024.3.579.2. 593 1956 Unknown [id number] 2.16.840.1.556682.3.579.2. 593 1956 Unknown [id number] 2.16.840.1.979138.3.579.2. 593 1956 Unknown [id number] 2.16.840.1.083219.3.579.2. 593 1956 Unknown [id number] 2.16.840.1.978834.3.579.2. 593 1956 Unknown [id number] 2.16.840.1.350568.3.579.2. 693 1956 Unknown [id number] 2.16.840.1.795340.3.579.2. 356 1956 Unknown [id number] 2.16.840.1.641943.3.579.2. 356 1956 Unknown [id number] 2.16.840.1.519133.3.579.2. 1244 1956 Unknown [id number] 2.16.840.1.898247.3.579.2. 727 1956 Unknown [id number] 2.16.840.1.151661.3.579.2. 727 1956 Unknown [id number] 2.16.840.1.245183.3.579.2. 727 1956 Unknown [id number] 2.16.840.1.659481.3.579.2. 727 1956 Unknown [id number] 2.16.840.1.254112.3.579.2. 727 1956 Unknown [id number] 2.16.840.1.247612.3.579.2. 727 1956 Unknown [id number] 2.16.840.1.665021.3.579.2. 727 Unknown Unknown HCAP/HFA/FAP Active [id number] Unknown [id number] 2.16.840.1.370077.3.579.2. 531 Unknown [id number] 2.16.840.1.460405.3.579.2. 531 Social History Date Type Detail Facility Start: 12-21-2020 End: 12-09-2023 No illicit drug use No illicit drug use [address] Work Phone: Comment on above: Coffee 1 cup daily; quit 1987; Start: 1955 Sex Assigned At Female [facility] Start: 12-21-2020 End: 12-09-2023 Sex Assigned At [facility] Start: 12-09-2023 End: 06-10-2024 Tobacco smoking status NHIS Ex-smoker [facility] Work Phone: History of tobacco use Current smoker [facility] Work Phone: History of tobacco use Cigarette Smoker [facility] Work Phone: Start: 12-09-2023 End: 06-10-2024 Tobacco use and exposure Smokeless tobacco non-user [facility] Work Phone: Start: 12-09-2023 Alcohol intake Lifetime non-d mary (finding) [facility] Work Phone: Start: 1955 Sex Assigned At Not on file [facility] Work Phone: Start: 11-29-2023 End: 12-09-2023 Exposure to SARS-CoV-2 (event) Not sure [facility] Tobacco smoking stat [facility] Unknown if ever smoked [facility] Work Phone: Start: 11-30-2024 End: 02-08-2025 Sex Female (finding) [facility] Start: 12-17-2024 End: 01-03-2025 Tobacco smoking status Never smoked tobacco (finding) [facility] Tobacco smoking status Never [facility] Start: 07-23-2017 End: 06-10-2024 Alcoholic beverage intake Current non-drinker of alcohol (finding) [facility] Functional Status Date Assessment Result Facility 01-03-2025 Functional Status N/A [facility] 12-17-2024 Functional Status N/A [facility] Clinical Notes 11-22-2022 to 01-21-2025 Note Date & Type Note Facility 01-21-2025 Note Patient Education Obstetrics and Gynecology Overactive [...] health care provider. General instructions ??? Take gadu-bmc-ictqxhq and prescription medicines only as told by [...] drink, and whe (more content not included)... [facility] 01-03-2025 Hospital Discharg e instructions Patient Education [...] provider. Document Revised: 05/27/2023 Document Reviewed: 05/27/2023 [employer] Patient Education 2023 [email or web address] Follow Up Care 12/17/2024 11:51:50 With:[facility] Address: [facility] [place] [address] Business (1) When: Unknown Comments:our graphics production specialist will be contacting you for follow-up [facility] 01-03-2025 Note Patient Education Caregiving Antibiotic Medicine, [...] You have sig (more content not included)... [facility] 12-17-2024 Hospital Discharg e instructions Patient Education [...] your health care provider. General instructions Take sfln-mcu-jlzgflg and prescription medicines only as told by [...] provider. Document Revised: 07/16/2021 Document Reviewed: 07/16/2021 [employer] Patient Education 2023 [email or web address] Follow Up Care 12/15/2024 15:13:16 With:PHOEBE LOWERY, SHANTA Schofield, URL Address: [address] [place] [address] When:Within 2 Week(s) [facility] 12-17-2024 Note Urology Office/Clini c Note Chief Complaint referral incontinence HPI Staff 69yr old female pt referred by Toby Quintana for incontinence. Has lg volume incontinence both through the day and at night. She wears Depends daily, changes about 3-5x. Was in the hospital for a fall at the end of August, went to [facility] for [facility]hab for about a month. Did [...] cysto as well as UTI preventives. Orders: [id number] Measure Post Void residual urine and/or bladder capacity by US- non-imaging 50240 Measure Post Void residual urine and/or bladder [...] Urnls Dip Stick Auto w/o Microscopy POC 48825 Follow-up With When Contact Information SHANTA SANDHU PA-C, URL In 2 weeks [address] [place] [address] Additional Instructions: Patient Education Overactive [...] Immunizations Vaccine Date Status Comments SARS-CoV-2 (COVID-19) [id number] 09/06/2022 Recorded S (more content not included)... [facility] Comment on above: Result Comment: Elec tronically [...] health care provider. General instructions ??? Take asld-cqk-bashwef and prescription medicines only as told by [...] drink, and whe (more content not included)... [facility] 12-13-2024 Hospital Discharg e instructions Ambulatory OrdersReferral to Urology Time Frame: 12/13/24, Location: None Selected [facility] Work Phone: 11-30-2024 Evaluation note Diagnosis Onset Date Resolution Incontinence acute November 1:31pm Insomnia acute November 30, 2024 1:31pm Leg ulcer, left acute November 112024 1:31pm Urinary frequency acute November 30, 2024 1:31pm [facility] Work Phone: 1(672) 483-531901-21-2025 Evaluation note* Diagnosis Onset Date Resolution Status [...] 07, 2024 10:43am Incontinence acute December 1:25pm [facility] Work Phone: 1(845) 964-152601-21-2025 Evaluation note* Diagnosis Onset Date Resolution Status [...] 07, 2024 10:43am Incontinence acute December 1:25pm Arrhythmia acute February 08 8:46am Fatigue acute February 08 8:46am Hyperlipidemia acute February 08, 2025 8:46am Joint pain acute February 08 8:46am [facility] Work Phone: 1(441) 712-154908-07-2024 Miscellaneous Notes* Telephone Encounter - Re Ni - 06/16/2024 3:05 PM EDT Received a call from patient stating Dr Gil gave her a RX for compression stockings and she took it to [facility] in [place] and they told her she is missing the compression- rx needs clarification. Funny thing is, I do not see RX anywhere not mention in Drs progress note besides under Problem List is marked Compression therapy and leg elecation as current assessment and plan. I did ask if it happened to be hand-written or printed from a computer and her and hubby both think computer paper. Please advise and enter RX for compression stockings for patient so she may fill at [facility]. Any questions, Adriana may be reached at [phone] Thank you. * Telephone Encounter - Sirisha Angela - 06/16/2024 3:05 PM EDT I am taking care of this today since I am in clinic with him. Patients father is here at office. JT documented in this encounterSalem City HospitalSky Level Enterprieses08-07-2024 Telephone encounter Note* Telephone Encounter - Re Ni - 06/16/2024 3:05 PM EDT Received a call from patient stating Dr Gil gave her a RX for compression stockings and she took it to [facility] in [place] and they told her she is missing the compression- rx needs clarification. Funny thing is, I do not see RX anywhere not mention in Drs progress note besides under Problem List is marked Compression therapy and leg elecation as current assessment and plan. I did ask if it happened to be hand-written or printed from a computer and her and hubby both think computer paper. Please advise and enter RX for compression stockings for patient so she may fill at [facility]. Any questions, Adriana may be reached at [phone] Thank you. [id number] Telephone encounter Note* Telephone Encounter - Sirisha Angeal - 06/16/2024 3:05 PM EDT I am taking care of this today since I am in clinic with him. Patients father is here at office. JT [facility]08-01-2024 Evaluation + Plan note* Assessment & Plan Note - Chetna Cordero MD - 06/10/2024 1:34 PM EDTAssociated Problem(s): Bilateral leg edema Swelling and hyperemia with no DVT likely related to neuropathy. Compression therapy and leg elevation. [facility]08-01-2024 Miscellaneous Notes* Assessment & Plan Note - Chetna Cordero MD - 06/10/2024 1:34 PM EDTAssociated Problem(s): Bilateral leg edema Swelling and hyperemia with no DVT likely related to neuropathy. Compression therapy and leg elevation. documented in this encounterUC Health08-01-2024 History of Present illness Narrative* Chetna Cordero [...] Medical History: Diagnosis Date Anxiety Asthma Cancer ([facility]) melanoma COPD (chronic obstructive pulmonary disease) ([facility]) Depression Fibromyalgia GERD (gastroesophageal reflux disease) Migraine SVT (supraventricular tachycardia) ([facility]) Past Surgical History: Past Surgical History: Procedure [...] Bilateral leg edema PVD (peripheral vascular disease) ([facility]) - [facility] [place] [place] Lower extremity pain, bilateral - [facility] [place] [place] Chetna Cordero MD, TRACI, RPVI, FSVS, FACS [facility] This note was created with the assistance of a speech recognition program. While intending to generate a timely document that accurately reflects the content of the visit, no guarantee can be provided that every grammatical or spelling mistake has been or will be identified or corrected. Thank you for your understanding. documented in this encounterUC Health07-09-2024 Miscellaneous Notes* Telephone Encounter - Fernanda Bassett CMA - 05/18/2024 11:08 AM EDT Patient states she is not home and she will have to hold off on referral for a month documented in this encounterUC Health07-09-2024 Telephone encounter Note* Telephone Encounter - Fernanda Bassett CMA - 05/18/2024 11:08 AM EDT Patient states she is not home and she will have to hold off on referral for a month [facility]05-13-2024 Hospital Discharge instructionsAmbulatory Orders* Referral to Orthopedics Time Frame: 03/22/24, Location: [facility] Work Phone: 1(458) 240-804102-07-2024 Evaluation note* Encounter Date Diagnosis Assessment Notes Treatment Notes Treatment Clinical Notes Dec, Jaw swelling (ICD-10 - R22.0) [facility] Other 02-06-2024 Evaluation note* Encounter Date Diagnosis Assessment Notes Treatment Notes Treatment Clinical Notes Dec, Dental infection (ICD-10 - K04.7) Pt will contact her insurance, find a different dentist. Will continue antibiotic at this time. [facility] Other 01-30-2024 History of Present illness Narrative* [...] follow-up will be scheduled Iban Lu MD, [facility] Review of Systems Cardiovascular: Positive for [...] EVENING, Disp: 225 tablet, Rfl: 0 omega 1-aft-dnu-fish oil 360 mg-108 mg- 180 mg-1,200 mg [...] of Iban Lu MD. documented [facility] Work Phone: 1(254) 554-221201-30-2024 Instructions* Patient Instructions* Nataliya Manning LPN - [...] Follow up one year documented in this encounterC[facility] Work Phone: 1(344) 441-397612-12-2023 Evaluation note* Encounter Date Diagnosis Assessment Notes Treatment Notes Treatment Clinical Notes Oct, Open fracture of tooth, initial encounter (ICD-10 - S02.5XXB) Keep area clean, brush and rinse frequently. seeing dentist next week. Oct, Lumbar radiculitis (ICD-10 - M54.16) pt requests refill for her chronic back issues. We discussed her treatment plan w Dr. Byers. [facility] Other 11-16-2023 Evaluation note* Encounter Date Diagnosis Assessment Notes Treatment Notes Treatment Clinical Notes Sep, Lumbar radiculitis (ICD-10 - M54.16) CHanged pain med. Jax will call Dr. Byers's office for a change in treatment plan and an appt. Sep, Nausea & vomiting (ICD-10 - R11.2) States that zofran has not helped in the past - phenergan sent in for short term use. [facility] Other 11-13-2023 Evaluation note* Encounter Date Diagnosis Assessment Notes Treatment Notes Treatment Clinical Notes Sep, Radiculopathy, lumbar region (ICD-10 - M54.16) My staff reviewed her case with Dr. Byers's staff. She is to call their office for follow-up appointment next month. Patient does not want another injection and would rather have an ablation. Trial of tramadol sent to pharmacy. OARRS reviewed. [facility] Other 10-11-2023 Evaluation note* Encounter Date Diagnosis Assessment Notes Treatment Notes Treatment Clinical Notes Aug, Pain in right knee (ICD-10 - M25.561) Aug, Other chronic pain (ICD-10 - G89.29) Aug, Pain in left knee (ICD-10 - M25.562) [facility] Other 03-31-2023 Evaluation note* Encounter Date Diagnosis Assessment Notes Treatment Notes Treatment Clinical Notes Jan, Nausea & vomiting (ICD-10 - R11.2) Jan, Pain in right knee (ICD-10 - M25.561) Jan, Other chronic pain (ICD-10 - G89.29) Jan, Pain in left knee (ICD-10 - M25.562) [facility] Other 03-31-2023 Evaluation note* Encounter Date Diagnosis Assessment Notes Treatment Notes Treatment Clinical Notes Jan, Nausea & vomiting (ICD-10 - R11.2) chronic problem - requesting refill on Zofran Jan, Pain in right knee (ICD-10 - M25.561) Jan, Other chronic pain (ICD-10 - G89.29) Jan, Pain in left knee (ICD-10 - M25.562) [facility] Other 03-01-2023 Evaluation note* Encounter Date Diagnosis [...] She would prefer to stay close to [place]. Our office is working to get her referral to pain management near [place]. [facility] Other 01-31-2023 Evaluation note* Encounter Date Diagnosis Assessment Notes Treatment Notes Treatment Clinical Notes Nov, Lumbar pain (ICD-10 - M54.50) [facility] Other 01-13-2023 Evaluation note* Encounter Date Diagnosis Assessment Notes Treatment Notes Treatment Clinical Notes Nov, Low back pain, unspecified back pain laterality, unspecified chronicity, unspecified whether sciatica present (ICD-10 - M54.50) [facility] Other evaluation + Plan note Future Appointments Appointment Date:12/30/2024 08:20:00 AM Scheduled Provider:SHANTA SANDHU PA-C Location:[facility] Appointment Type:URO Office Visit [facility] evaluation + Plan note Future Appointments Appointment Date:12/30/2024 08:20:00 AM Scheduled Provider:SHANTA SANDHU PA-C Location:[facility] Appointment Type:URO Office Visit Diagnostic Tests Pending * Urine Culture 12/28/24 [facility] Evaluation noteNo assessment information available [facility] Work Phone: Evaluation noteNo InformationNortTyler Memorial Hospital [employer] Other evaluation noteNort [employer] Other Evaluation note* Diagnosis Supraventricular tachycardia by ECG- Primary Mixed hyperlipidemia Palpitations Class II obesity documented in this encounter [facility] Work Phone: Evaluation note* Diagnosis Onset Date Resolution Status Fatigue acute Hyperlipidemia acute Lumbar radiculopathy, chronic acute Medicare annual wellness visit, subsequent acute SVT (supraventricular tachycardia) acute [facility] Work Phone: Evaluation note* Diagnosis Onset Date Resolution Status Fatigue acute Hyperlipidemia acute Lumbar radiculopathy, chronic acute Medicare annual wellness visit, subsequent acute SVT (supraventricular tachycardia) acute Lumbar radiculopathy, chronic acute [facility] Work Phone: Evaluation note* Diagnosis Onset Date Resolution Status Fatigue acute Hyperlipidemia acute Lumbar radiculopathy, chronic acute Medicare annual wellness visit, subsequent acute SVT (supraventricular tachycardia) acute Lumbar radiculopathy, chronic acute Left knee pain acute Lumbar radiculopathy, chronic acute Right knee pain acute Left knee pain acute Right knee pain acute [facility] Work Phone: Evaluation note* Diagnosis Onset Date Resolution Status Left knee pain acute Lumbar radiculopathy, chronic acute Right knee pain acute Bilateral cold feet acute Left knee pain acute Right knee pain acute Bilateral lower extremity pain acute Diminished pulses in lower extremity acute PAD (peripheral artery disease) acute [facility] Work Phone: Evaluation note* Diagnosis Onset Date Resolution Status Admit Date Incontinence acute November 1:31pm Urinary frequency acute November 30, 2024 1:31pm [facility] Work Phone: Evaluation note* Diagnosis Bilateral leg edema- Primary Edema PVD (peripheral vascular disease) ([facility]) Unspecified peripheral vascular disease Lower extremity pain, [...] childbirth Hospitalization History hysterectomy Hospitalization History pancreatitis [facility] [employer] Other History general Narrative - ReportedNortTyler [facility] Hospital [employer] Other Hospital course Narrative No data available for this section [facility] Hospital Discharge instructionsAmbulatory Orders* Referral to Vascular Surgery Time Frame: 04/30/24, Location: [facility] Work Phone: Hospital Discharge instructions No data available for this section [facility] InstructionsNot on filedocumented in this encounter [facility] SystemInstructionsNot on filedocumented in this encounter [facility] SystemInstructionsNot on filedocumented in this encounter [facility] SystemProgress note No data available for this section [facility] reason for referral (narrative)* Consultation (Routine) - Authorized Specialty Diagnoses / Procedures Referred By Luma t Referred To Contact Cardiology Diagnoses Supraventricular tachycardia by ECG Procedures Follow Up In Cardiology Iban Lu MD [address] [address], [address] [address] Iban Lu MD [address] [facility] [place] [address] Referral ID Status Reason Start Date Expiration Date V isits Requested Visits Authorized [id number] Authorized 12/09/2023 12/08/2024 1 1 [facility] Work Phone: [facility] for visit NarrativePain Medicine Referral UpdateSparta [employer] Other Summary Purpose Family History Unknown Family [...] Advance Directives No March 24 9 3:29pm Advance Directive Response Recorded Date/ Time Advance Directives No March 24 4:29pm Advance Directive Response Recorded Date/ Time Advance Directives No February 07, 025 9:15am Chief Complaint * ADRIANA TEA is being seen for an annual follow-up [...] and provided the patient with 2 local high scaler in town. * ASSESSMENT AND PLAN: * [...] Complaint xray Chief Complaint Swollen Face, [place] [facility]- [phone] Medicare Wellness Reason for Visit Fatigue Hyperlipidemia Lumbar radiculopathy, chronic Medicare annual wellness visit, subsequent SVT (supraventricular tachycardia) Chief Complaint Medicare Wellness Amb Documentation pulled [id number] knee injections Reason for Visit Fatigue Hyperlipidemia Lumbar radiculopathy, chronic Medicare annual wellness visit, subsequent SVT (supraventricular tachycardia) Lumbar radiculopathy, chronic Chief Complaint Medicare Wellness Amb Documentation pulled [id number] knee injections leg swelling - hot cold [...] Amb Documentation September 07, 2024 1 1:48am senior care visit September 17, 2024 1 1:59pm fdc visit October 11, 2024 1 1:59pm VIRTUAL, talk about medical concerns Nov 2024 1:31pm Reason for Visit Admit Date Incontinence November 30, 2024 1 :31pm Urinary frequency November 30, 2024 1 :31pm Reason for Visit Admit Date Incontinence November 30, 2024 1 :31pm Insomnia November 30, 2024 1 :31pm Leg ulcer, left November 30, 2024 1 :31pm Urinary frequency November 30, 2024 1 :31pm Chief Complaint Admit Date senior care visit September 17, 2024 1 1:59pm fdc visit October 11, 2024 1 1:59pm VIRTUAL, talk about medical concerns [facility] 2024 1:31pm R35.0 R3December 01, 2024 8 :00am Cortisone Shot/Discuss Meds/Check Up [facility] 2024 10:43am Chief Complaint Admit Date senior care visit September 17, 2024 1 1:59pm fdc visit October 11, 2024 1 1:59pm VIRTUAL, talk about medical concerns [facility] 2024 1:31pm R35.0 R3December 01, 2024 8 :00am Cortisone Shot/Discuss Meds/Check Up [facility] 2024 10:43am VIRTUL, talk about uti December [...] 2024 1 :25pm Chief Complaint Admit Date senior care visit September 17, 2024 1 1:59pm fdc visit October 11, 2024 1 1:59pm VIRTUAL, talk about medical concerns [facility] 2024 1:31pm R35.0 R32 December 01, 2024 8 :00am Cortisone Shot/Discuss Meds/Check Up [facility] 2024 10:43am Increased frequency of urination Inconti nence December 13, 2024 9:15am VIRTUL, talk about uti December 13 1:25pm Chief Complaint Admit Date VIRTUAL, talk about medical concerns [facility] 2024 1:31pm R35.0 R32 December 01, 2024 8 :00am Cortisone Shot/Discuss Meds/Check Up [facility] 2024 10:43am Increased frequency of urination Inconti nence December 13, 2024 9:15am VIRTUL, talk about uti December 13 1:25pm wellness February 08, 2025 8:46 am Reason for Visit Admit Date Incontinence November [...] 0:43am Incontinence December 13, 2024 1 :25pm Arrhythmia February 08, 2025 8:46 am Fatigue February 08, 2025 8:46 am Hyperlipidemia February 08, 2025 8:46 am Joint pain February 08, 2025 8:46 am Reason for Referral Reason 01/21/23 Evaluate and Treat Chronic Pain Diagnosis 1 Chronic pain disorde r (G89.4) Diagnosis 2 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) Diagnosis 3 Other chronic pain ( G89.29) Diagnosis 4 Low back pain, unspe cified (M54.50) Referral Organization [facility] Referring Provider First Name Leeann Referring Provider Last Name Blades Referring Provider Specialty Neurologica l Surgery Referred Organization [facility] Referred Provider Albertina Oconnell Referred Address [address] [place], [place],[address] Referred Provider Specialty Pain Medicin e Referral Priority Routine Referral Appointment Date 2023-01-21 General Notes Klaudia Golden 023 09:03:40 AM >Received today and waiting for office notes to be locked before sending referral Klaudia Golden 01/01/2023 07:37:06 AM >Referral was fax Klaudia Golden 01/08/2023 09:26:41 AM >Referral was refax to the correct office with their form Trini Suazo 01/08/2023 02:11:33 PM >received letter, pt has appt scheduled for 01/21/2023 Clinical Notes Phone: Reason 01/08/23 @ 10:00am Evaluate and Treat Hip Pain Diagnosis 1 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) Referral Organization [facility] Referring Provider First Name Leeann Referring Provider Last Name Blades Referring Provider Specialty Neurologica l Surgery Referred Organization [facility] Referred Provider Samuel Chatman II Referred Address [address],[place],[address] Referred Provider Specialty Orthopaedic Surgery Referral Priority Routine Referral Appointment Date 2023-01-08 General Notes Klaudia Golden 023 10:20:34 AM >Received today and sent P2P Klaudia Golden 01/01/2023 12:05:35 PM >Patient was scheduled Klaudia Golden 01/15/2023 09:30:10 AM >Office notes not locked yet Klaudia Golden 01/16/2023 08:43:03 AM >Sent telephone encounter to referring physician to let them know that the consult letter is ready for their review Reason DECLINED lumbar an d knee pain Diagnosis 1 Lumbar pain (M54.50) Referral Organization [facility] Referring Provider First Name Toby Referring Provider Last Name Mariano Referring Provider Specialty Family [facility] Referred Organization [facility] Referred Provider Paddy De Los Santos Referred Address [address] [facility] [place]ette [place],[address] Referred Provider Specialty Rheumatology Referral Priority Routine [...] be scheduled, will follow up with patient DenKathryn 12/26/2022 01:22:19 PM >called patient to see if she wanted to be referred elsewhere, left detailed message. will follow up Kathryn Crenshaw 01/02/2023 02:05:36 PM >per patient she never wanted this referral. TE sent for review. Closing referral Clinical Notes Dr. Dixon CCKehinde? Additional Source Comments INFORMATION SOURCE (unrecogn ized section and content) DATE CREATED AUTHOR [facility] DATE CREATED AUTHOR AUTHOR'S KEIKO RIVAS 11/04/2019 [facility] DATE CREATED AUTHOR AUTHOR'S ORGANIZ ATION 12/06/2020 [facility] DATE CREATED AUTHOR AUTHOR'S ORGANIZ ATION 04/21/2021 [facility] DATE CREATED AUTHOR AUTHOR'S ORGANIZ ATION 12/10/2022 [facility] DATE CREATED AUTHOR AUTHOR'S ORGANIZ ATION 01/10/2023 [facility] DATE CREATED AUTHOR AUTHOR'S ORGANIZ ATION 03/18/2023 [facility] DATE CREATED AUTHOR AUTHOR'S ORGANIZ ATION 06/09/2023 [facility] DATE CREATED AUTHOR AUTHOR'S ORGANIZ ATION 10/10/2024 [facility] DATE CREATED AUTHOR AUTHOR'S ORGANIZ ATION 12/17/2024 [facility] DATE CREATED AUTHOR AUTHOR'S ORGANIZ ATION 01/01/2025 [facility] DATE CREATED AUTHOR AUTHOR'S ORGANIZ ATION 01/04/2025 [facility] DATE CREATED AUTHOR AUTHOR'S ORGANIZ ATION 01/23/2025 [facility] Care Teams (unrecognized sec tion and content) Team Status: Inactive Member Role Status Dates Toby Quintana MD Primary Care Provider Active Leeann Quintana Attending Provider Active Team Status: Active Member Role Status Dates Toby Quintana MD Primary Care Provider Active Team Status: Inactive Member Role Status Dates Toby Quintana MD Primary Care Provider Active Samuel Chatman II, MD Attending Provider Active 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 Specialty Start Date End Date Toby [...] Active Evin Byers MD Specialist Active Toby Quintaan MD Primary Care Provider Active Team Status: [...] Debbie Jeffers Attending Provider Active Start: No [id number] Team Status: Active Member Role Status Dates [...] 2024 End: December 13, 2024 Team Status: Active Member Role Status Dates Iban Lu MD Specialist Active Evin Byers MD Specialist Active NON STAFF Primary Care Provider Active Team Status: Inactive Member Role Status Dates Toby Quintana MD Attending Provider Active St art: December 13, 2024 End: December 13, 2024 NON STAFF Primary Care Provider Active Start: December 13, 2024 End: December 13, 2024 Team Status: Inactive Member Role Status Dates NON STAFF Primary Care Provider Active Start: February 08, 2025 End: February 08, 2025 Toby Quintana MD Attending Provider Active St art: February 08, 2025 End: February 08, 2025 Goals (unrecognized section and content) Goals may [...] this section No data available for this sectionGoals may be documented in an alternate section REASON FOR VISIT (unrecogniz ed section and content) Reason Comments Annual Exam 1yr Reason Comments (peripheral vascular disease)- Lower ext remity pain, bilate Specialty Diagnoses / Procedures Referred By Contac t Referred To Contact Vascular Surgery Diagnoses PVD (peripheral vascular disease) ([facility]) Lower extremity pain, bilateral Toby Quintana MD [address] [place] [address] [facility] [address] [place] [address] Referral ID Status Reason Start Date Expiration Date Visits Requested Visits Authorized [id number] Pending Review Specialty Services Required 05/10/2024 05/10/2025 1 1 FOR RECORDS PERTAINING TO PATIENTS WHO [...] BE BASED ON THE PRIMARY CLINICAL RECORDS. [facility]. provides no warranty or guarantee of the accuracy or completeness of information in this document.
[2025-02-17 10:09] LABS: Basophils Percent Auto 0.6 % (0.2-2.0); Eosinophils Absolute Auto 0.3 10^3/uL (0.0-0.7); Eosinophils Percent Auto 5.3 % (0.9-7.0); Hematocrit 45.4 % (36.0-48.0); Hemoglobin 14.8 g/dL (12.0-16.0); Lymphocytes Percent Auto 30.9 % (20.5-60.0); Mean Corpuscular HGB Conc 32.6 g/dL (29.9-35.2); Mean Corpuscular Hemoglobin 27.8 pg (26.7-34.0); Mean Corpuscular Volume 85.2 fL (81.0-99.0); Mean Platelet Volume 9.4 fL (9.5-13.5); Monocytes Absolute Auto 0.5 10^3/uL (0.3-0.8); Monocytes Percent Auto 7.5 % (1.7-12.0); Neutrophils Absolute Auto 3.5 10^3/uL (1.4-6.5); Neutrophils Percent Auto 55.7 % (43.0-75.0); Platelet Count 247 10^3/uL (150-450); Red Blood Count 5.33 10^6/uL (4.20-5.40); Red Cell Distribution Width 14.2 % (11.0-15.0); White Blood Count 6.4 10^3/uL (4.0-11.0)
[2025-02-17 10:49] LABS: Erythrocyte Sedimentation Rate 33 mm/hr (<=30)
[2025-02-17 12:29] LABS: Alanine Aminotransferase 61 U/L (14-59); Albumin Globulin Ratio 0.8; Albumin Level 3.2 g/dL (3.4-5.0); Alkaline Phosphatase 177 U/L (46-116); Anion Gap 11.1; Aspartate Amino Transferase 33 U/L (15-37); BUN Creatinine Ratio 14.3; Bilirubin Total 0.6 mg/dL (0.2-1.0); Calcium 9.4 mg/dL (8.5-10.1); Carbon Dioxide 28.9 mmol/L (21.0-32.0); Chloride 106 mmol/L (98-107); Chol HDL Ratio 4.2; Cholesterol 157 mg/dL (<=200); Estimated GFR (African America >60 (>=60 mL/min/1.73m^2); Estimated GFR (Non-African Ame >60 (>=60 mL/min/1.73m^2); Globulin 3.8 g/dL; Glucose 104 mg/dL (74-106); HDL Cholesterol 37 mg/dL (40-60); Sodium 142 mmol/L (136-145); Triglycerides 76 mg/dL (<=150); VLDL CHOLESTEROL 15.2 mg/dL
[2025-02-18 05:07] LABS: C-Reactive Protein, Cardiac 1.96 mg/L (0.00-3.00); Rheumatoid Factor (RF) <10.0 IU/mL (<14.0)
== END 2025-02-17 09:49 | disposition home or self-care (01) ==
LOC: LAB 09:50
PROVIDERS: PCP Family Medicine; Visit Provider Family Medicine
DX: Z00.00 Encounter for general adult medical examination without abnormal findings (principal); E78.5 Hyperlipidemia, unspecified; R53.82 Chronic fatigue, unspecified; I49.9 Cardiac arrhythmia, unspecified; M25.50 Pain in unspecified joint
CPT/HCPCS: 36415; 80053; 80061; 85025; 85652; 86140; 86431

== ENCOUNTER 2025-08-11 10:39 | Outpatient (OUT) | payer MEDICARE, SELFPAY ==
--- OUTSIDE RECORDS SUMMARY | 2024-04-26 04:30 | XMS_ITS ---
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 Primary Care Provider Unavail able Ulises Vaughn Unavailable [phone] Patience Valente Unavailable Reason For Referral Reason APPROVED............ .....PLEASE OBTAIN AUTHORIZATION FOR B/L KNEE VISCO SYNVISC SERIES Diagnosis 1 Primary osteoarthrit is of both knees (M17.0) Referral Organization [facility] Referring Provider First Name Ulises Referring Provider Last Name Roderick Referring Provider Speciality Orthopedic Surgery [facility] Referred Address [address] [place] [address],[address],[place], [place],[address], Procedure 1 SYNVISC INJ 1 MG ([id number] 325) General Notes Margoth Guerrero 024 11:55:54 AM >PREFERRED: SYNVISC OR SYNVISC Shiv KEENAN Monica 04/27/2024 02:44:48 PM > PER AMAURY JUSTIN Broseke, Amy 04/29/2024 03:04:06 PM >FORM AND CLINICAL FAXEDYolanda Amy 05/03/2024 09:22:42 AM >APPROVED PER [employer] MED[employer]ARE AUTH #[id number] VALID 04/29/2024-04/29/2025 COPY IN CHART Shiv GARCIA Monica 05/03/2024 10:05:54 AM > PLEASE ORDER B/L SYNVISC SERIES, Ne Aquino 05/04/2024 01:22:32 PM >2 SYNVISC SERIES ORDERED, Latricia Abarca 05/05/2024 01:34:58 PM > Patient called stating she got a letter that medication was authorized, wanted to know why no one called her to schedule. I spoke with her to let her know that approval was given Friday, medication ordered yesterday and that our office will call her to schedule injections once medication is in. Does want to have these done in [place]. I also told her to call her insurance when she had questions about the cost that she would have to pay., Debbie Molina 05/05/2024 03:31:11 PM >2 SYNVISC RECEIVED, LOGGED, AND IN BARAKAT DShiv Monica 05/07/2024 07:19:51 AM > sent txt/voice message to schedule, Dawn Linares 05/10/2024 08:50:17 AM > Scheduled Referral Priority Routine REASON FOR VISIT BILATERAL KNEE PAIN, Bilateral knee pain Medications Medication SIG (Take, Route, Fr equency, Duration) Notes Start Date End Date Status furosemide 20 mg TAKE 1 TABLET BY LEDA TH DAILY for 5 Days Active ALPRAZolam 1 mg TAKE 1 TABLET BY LEDA TH TWICE DAILY NEEDED FOR ANXIETY FOR 30 DAYS for 30 Days Active atenolol 25 mg TAKE 2 TABLETS BY MO UT AT BEDTIME for 90 Days Active Social History Tobacco Use: Social History Observation Description Date Details (start date - stop date) Never Smoker NA - NA AUDIT-C (Standard) Question Answer Notes Did you have a drink contain ing alcohol in the past year? Yes How often did you have six o r more drinks on one occasion in the past year? Declined to specify (0 point) How many drinks did you have on a typical day when you were drinking in the past year? 1 or 2 drinks (0 point) How often did you have a dri nk containing alcohol in the past year? Declined to specify (0 point) Points 0 Interpretation Negative Tobacco Control (Standard) Question Answer Notes Tobacco use: Nonsmoker Problems Problem Type SNOMED Code ICD Code Onset Dates Problem Status W/U Status Risk Notes Problem [id number] Primary osteoarthritis of both knees (M17.0) Active confirmed Vital Signs Height 5 ft 6 in in 04/26/2024 Weight 235 lbs 04/26/2024 BMI 37.93 04/26/2024 Encounters Encounter Location Date Provider Diagnosis [facility] [address] [place] [address] 04/26/2024 Patience Valente Primary osteoarthritis of both knees M17.0 Assessments Encounter Date Diagnosis (ICD Code) Assessment Notes Treatment Notes Treatment Clinical Notes Section Notes 04/26/2024 Primary osteoarthritis of both knees (ICD-10 - M17.0) Bilateral knee osteoarthritis 04/26/2024 Other I discussed dif ferent treatment options for the patient's bilateral knee arthritis. Her right knee is ukpj-mm-guzn laterally. She was told not to take any NSAID products given her heart history. She is interested in repeating viscosupplementation as she is not interested in knee replacements at this time. We will submit for approval for bilateral knee viscosupplementation injections and see her back for these once approved. Bilateral knee osteoarthritis Plan Of Treatment Treatment Notes Assessment Notes Other I discussed differen t treatment options for the patient's bilateral knee arthritis. Her right knee is oxoo-ry-jgqi laterally. She was told not to take any NSAID products given her heart history. She is interested in repeating viscosupplementation as she is not interested in knee replacements at this time. We will submit for approval for bilateral knee viscosupplementation injections and see her back for these once approved. Pending Test Test Name Order Date SCC- KNEE 4 VIEW LEFT-[id number] 04/26/2024 SCC- KNEE 4 VIEW RIGHT [id number] 04/26/2024 Referrals Referral Date Details 04/26/2024 04/26/2024, APPROVED .................PLEASE OBTAIN AUTHORIZATION FOR B/L KNEE VISCO SYNVISC SERIES, [address] [place] [address], [place], [address], Next Appt Details Follow Up: AFTER APPROVAL, Kwame morales: Progress Notes * INDERJIT MANN IDOB:[birth year] (70 yo F)Acc No.[id number]:04/26/2024 Patient: INDERJIT Watson EA, I Provider: SILVIO Darnell DOB:1955 A ge:69 Y S ex:Female Date:04/26/2024 Address:[address] [place], [place] [id number] Pcp:Connie Stewart M.D. Subjective: * Chief Complaints: * 1 . BILATERAL KNEE PAIN. 2. Bilateral knee pain. * HPI: G eneral Follow Up Information: Patient is a 69-year-old female that presents with years of bilateral knee pain. She states that her right knee pain is worse than her left. She has knee pain with every step she takes and is having trouble sleeping secondary to the pain. She has started walking with 2 canes as she feels unsteady on her feet. She had just gotten corticosteroid injections in her knee in January by her PCP. She has had viscosupplementation in the past, but is for many years. She states that she had seen a surgeon previously to be evaluated for a knee replacement, but was told she was told the risks would outweigh the benefits given her medical history. * Medical History: * Social History: D o you live W ith whom do you live? O ther ; . W hat is your place of residence? W here do you live? P rivate home. W orking status W hat is your working status N ot Working. M arital status M arital Status M arried. A VEE-C (Standard) Did you have a drink containing alcohol in the past year? Y es, H ow often did you have six or more drinks on one occasion in the past year? D eclined to specify (0 point), H ow many drinks did you have on a typical day when you were drinking in the past year? 1 or 2 drinks (0 point), H ow often did you have a drink containing alcohol in the past year? D eclined to specify (0 point), P oints 0 , I nterpretation N egative. T obacco Control (Standard) T obacco use: N onsmoker. * Medications: T aking furosemide 20 mg tablet TAKE 1 TABLET BY MOUTH DAILY , Taking ALPRAZolam 1 mg tablet TAKE 1 TABLET BY MOUTH TWICE DAILY NEEDED FOR ANXIETY FOR 30 DAYS , Taking atenolol 25 mg tablet TAKE 2 TABLETS BY MOUTH AT BEDTIME , Discontinued Oxycodone , Discontinued Xanax 1 mg tablet 1 tab(s) , Discontinued atenolol 50 mg tablet 1 tab(s) , Notes to Pharmacist: Night, Discontinued atenolol 25 mg tablet 1 tab(s) , Notes to Pharmacist: Morning, Medication List reviewed and reconciled with the patient Objective: * Vitals: H t: 5 ft 6 in, Wt: 235 lbs, BMI:37.93. * Examination: G eneral examination: D ecreased range of motion of bilateral knees. Tender to palpation lateral joint lines of bilateral knees. Anterior/ Posterior drawer negative bilaterally. Varus and valgus stress tests negative. Palpable pulses distally and brisk capillary refill. There are no palpable cords or calf tenderness. No lymphadenopathy. The patient ambulates with a nonantalgic gait today. Normal muscle tone and bulk. Skin is intact throughout the lower extremities, no open wounds or lesions. No masses are appreciated. Intact sensation to light touch. . X -ray Imaging Studies: 4 view x-rays of bilateral knees were taken in office today and reviewed and interpreted by myself as severe osteoarthritis bilaterally, right greater than left. Right knee with qrvc-jb-zcrb of the lateral joint, and medial joint space narrowing. Right patellofemoral joint space narrowing with large osteophytes present. Joint space narrowing of the left knee, lateral greater than medial. No fracture or dislocations noted. Assessment: * Assessment: 1. P rimary osteoarthritis of both knees - M17.0 (Primary) Bilateral knee osteoarthriti s. Plan: * Treatment: 2. O thers I maging: SCC- KNEE 4 VIEW LEFT-[id number] I maging: SCC- KNEE 4 VIEW RIGHT [id number] Notes: I discussed different treatment options for the patient's bilateral knee arthritis. Her right knee is tkwq-fi-shwq laterally. She was told not to take any NSAID products given her heart history. She is interested in repeating viscosupplementation as she is not interested in knee replacements at this time. We will submit for approval for bilateral knee viscosupplementation injections and see her back for these once approved. * Preventive Medicine: MIPS Measures: C MS139 Fall Risk S creening: N o falls in the past year.? * Follow Up: A FTER APPROVAL Forms: * Images: * Electronic signature of GANGA RocheC on 08/11/2025 at 10:43 AM EDT Sign off status: Pending * Provider: SILVIO Darnell Date: 0 04/26/2024 Generated for Rubina fagan/Chidi/Kayleigh on: 1 10:43 AM EDT History and Physical Notes * HPI (History of Present Illness) Category Sub-Category Detail Notes Category Not es General Follow Up Information Patient is a 69-year -old female that presents with years of bilateral knee pain. She states that her right knee pain is worse than her left. She has knee pain with every step she takes and is having trouble sleeping secondary to the pain. She has started walking with 2 canes as she feels unsteady on her feet. She had just gotten corticosteroid injections in her knee in January by her PCP. She has had viscosupplementation in the past, but is for many years. She states that she had seen a surgeon previously to be evaluated for a knee replacement, but was told she was told the risks would outweigh the benefits given her medical history. Examination Category Sub-Category Detail Notes Category Not es General examination Decrease d range of motion of bilateral knees. Tender to palpation lateral joint lines of bilateral knees. Anterior/ Posterior drawer negative bilaterally. Varus and valgus stress tests negative. Palpable pulses distally and brisk capillary refill. There are no palpable cords or calf tenderness. No lymphadenopathy. The patient ambulates with a nonantalgic gait today. Normal muscle tone and bulk. Skin is intact throughout the lower extremities, no open wounds or lesions. No masses are appreciated. Intact sensation to light touch. X-ray Imaging Studies 4 view x-rays of bilateral knees were taken in office today and reviewed and interpreted by myself as severe osteoarthritis bilaterally, right greater than left. Right knee with ednb-eg-voxv of the lateral joint, and medial joint space narrowing. Right patellofemoral joint space narrowing with large osteophytes present. Joint space narrowing of the left knee, lateral greater than medial. No fracture or dislocations noted. Consultation Request Notes Referral Date Referring Provider Referred Provider Not es 04/26/2024 Ulises Vaughn , BRENDA... ..............PLEASE OBTAIN AUTHORIZATION FOR B/L KNEE VISCO SYNVISC SERIES
--- OUTSIDE RECORDS SUMMARY | 2024-11-29 04:30 | XMS_ITS ---
Author Organization [facility] [place] Address [address] [place] [address] Care Team Providers Care Administration Specialist Name Role Phone None, Unknown or Primary Care Provider Unavailab Robert Cornell [phone] REASON FOR VISIT wound - surgical debridement LT lower leg wound Encounters Encounter Location Date Provider Diagnosis [facility] [address] [place] [id number] 11/29/2024 Robert Blancas Plan Of Treatment No Information Progress Notes * Adriana DINERO IDOB:[birth year] (70 yo F)Acc No.[id number]:11/29/2024 UNLOCKED PROGRESS NOTE Patient: Adriana Watson EA, I Provider: Ramy Blancas DPM, MS :1955 A ge:69 Y S ex:Female Date:11/29/2024 Address:[address] [place], [place] [id number] Pcp:Unknown or None * * Electronic signature of Morgan Blancas DPM on 08/11/2025 at 10:44 AM EDT Sign off status: Pending Visit Status: C ANC (Cancelled) * Provider: Ramy Blancas DPM, MS Date: 0 11/29/2024 Generated for Rubina fagan/Chidi/eTransmitting on: 1 10:44 AM EDT
--- OUTSIDE RECORDS SUMMARY | 2025-04-11 14:40 | XMS_ITS ---
Author Name Auto Generated Organization OHIP Care Team Providers Care Account Retention Representative Name Role Phone KEENAN LU Attending Unavailable KEENAN LU Referring Unavailable CONNIE QUINTANA Primary Care Unavailable SHANTA SANDHU Admitting Unavailable SHANTA SANDHU Attending Unavailable SHANTA SANDHU Attending Unavailable SHANTA SANDHU Admitting Unavailable CYRUS PERRY Attending Unavail able SHANTA SANDHU Attending Unavailable SHANTA SANDHU Attending Unavailable CONNIE QUINTANA Referring Unavailable SHANTA SANDHU Attending Unavailable SHANTA SANDHU Attending Unavailable Connie Quintana Admitting Unavailable Connie Quintana Attending Unavailable NO FAMILY, PHYSICIAN Primary Care Unavailable Connie Quintana Attending Unavailable NON STAFF Primary Care Unavailable Connie Quintana Admitting Unavailable PROBLEMS DATE TYPE CONDITION / CODE ATTENDING STATUS [facility] 03/11/2025 Admitting Diagnosis Body mass index (BMI) 34.0-34.9, adult / Z68.34(ICD-10) KEENAN LU [facility] 11/13/2023 Admitting Diagnosis Supraventricular tachycardia, unspecified / I47.10(ICD-10) KEENAN LU [facility] 11/13/2023 Admitting Diagnosis Mixed hyperlipidemia / E78.2(ICD-10) KEENAN LU [facility] 11/13/2023 Admitting Diagnosis Palpitations / R00.2(ICD-10) KEENAN LU [facility] 12/13/2024 Unknown Unspecified urin gui incontinence / R32(ICD-10) Connie Quintana [facility] 12/01/2024 Unknown Frequency of micturition / R35.0(ICD-10) Connie Quintana [facility] PROCEDURES No Procedure Records Found RESULTS AMBULATORY VISIT SUMMARY Observed: 01/21 8:28 AM Status: F Source: [facility] Ambulatory Visit Summary ADRIANA DINERO I :1955 Visit Date:01/21/2025 Ambulatory Visit Instructions Your Diagnosis Recurrent UTI Incontinence without sensory awareness Your Care Team Attending Physician - CYRUS PERRY MD Primary Care Physician - CONNIE QUINTANA MD This Is Your Medications List [...] SHANTA SANDHU PA-C Where: [facility] [address] [place] [address]- You Need to Schedule the Following Appointments Follow Up with VICKY SAMAYOA, MILI SANCHEZ When: Where: Medications What How Much When Instructions New oxybutynin (oxybutynin 15 mg ER Tab) 1 Tablets By Mouth Every day Refills: 4 Pickup at [facility]/pharmacy #[id number] Unchanged alprazolam By Mouth 3 times a day Contact prescribing physician if questions or concerns Unchanged atenolol By Mouth 2 times a day Contact prescribing physician if questions or concerns Pharmacy Information [facility]/pharmacy #[id number]: [address], [place] [phone] Medications and Immunizations Administered Given lidocaine Top [...] health care provider. General instructions ??? Take luvh-cgm-jtflmjl and prescription medicines only as told by [...] your health care provider monitor your condition. ??? Keep all follow-up visits. This is important. Contact a health care provider if: ??? You have a fever or chills. ??? Your symptoms do not get better with treatment. ??? Your pain and discomfort get worse. ??? You have more frequent urges to urinate. Get help right away if: ??? You are not able to control your bladder. Summary ??? Overactive bladder refers to a condition in which a person has a sudden and frequent need to urinate. ??? Several conditions may lead to an overactive bladder. ??? Treatment for overactive bladder depends on the cause and severity of your condition. ??? Making lifestyle changes, doing Kegel exercises, keeping a log, and taking medicines can help with this condition. This information is not intended to replace advice given to you by your health care provider. Make sure you discuss any questions you have with your health care provider. Document Revised: 07/16/2021 Document Reviewed: 07/16/2021 Elsevier Patient Education ??? 2023 [employer] UROLOGY OFFICE/CLINIC NOTE Observed: 8:24 AM Status: F Source: [facility] Urology Office/Clinic Note Chief Complaint cysto HPI [...] Follow-up With When Contact Information VICKY SAMAYOA, MILI SANCHEZ Additional Instructions: Follow up 3monthns or sooner if needed Patient Education Overactive Bladder, Adult I, Yaya Fung, personally scribed for Dr. Cyrus Perry on 01/21/2025 08:25:35. . Portions of this record may have been created with voice recognition artificial intelligence software, specifically Wyldfire, Crowdfynd and or Movile. Substitutions may have occurred due to the inherent limitations of voice recognition and artificial intelligence software. Documentation recorded by the scribe, Yaya Fung, accurately reflects the services(s) I performed and decisions made by me. Authenticated by Dr. Perry on 01/21/2025 08:28:07. Problem List/Past Medical History Ongoing Incontinence without sensory awareness Recurrent UTI UTI (urinary tract infection) Historical No qualifying data Procedure/Surgical History Flexible cystoscope (01/21/2025), Cholecystectomy, Gallbladder, Hand surgery care plan, Hysterectomy, Procedure on back, Rib resection and open drainage of pleural cavity. Medications alprazolam, Oral, TID atenolol, Oral, BID Allergies sulfa drugs (Rash) Social History Alcohol Never., 12/17/2024 Substance Abuse Never., 12/17/2024 Tobacco Never (less than 100 in lifetime) Tobacco Use:. Never Smokeless Tobacco Use:., 01/21/2025 Family History Family history is unknown Immunizations Vaccine Date Status Comments SARS-CoV-2 (COVID-19) mRNAMUL.ORD![id number] 09/06/2022 Recorded SARS-CoV-2 (COVID-19) mRNA BNT-162b2 vax 07/02/2021 Recorded 2024-12-17: TPV65 SARS-CoV-2 (COVID-19) mRNA BNT-162b2 vax 06/11/2021 Recorded 2024-12-17: TPV65 influenza virus vaccine, inactivated 09/14/2013 Recorded Result Comment: Electronical ly Signed By: CYRUS EPRRY MD\.br\Date and Time Signed: 01/21/25 08:34 EDT\.br\Electronically Co-Signed By: Yaya Fung\.br\Date and Time Co-Signed: 01/21/25 08:26 EDT PATIENT EDUCATION Observed: 01/21/2025 8:24 AM Status: F Source: [facility] Patient Education Obstetrics and Gynecology Overactive Bladder, [...] health care provider. General instructions ??? Take soin-pnz-ssazwex and prescription medicines only as told by [...] your health care provider monitor your condition. ??? Keep all follow-up visits. This is important. Contact a health care provider if: ??? You have a fever or chills. ??? Your symptoms do not get better with treatment. ??? Your pain and discomfort get worse. ??? You have more frequent urges to urinate. Get help right away if: ??? You are not able to control your bladder. Summary ??? Overactive bladder refers to a condition in which a person has a sudden and frequent need to urinate. ??? Several conditions may lead to an overactive bladder. ??? Treatment for overactive bladder depends on the cause and severity of your condition. ??? Making lifestyle changes, doing Kegel exercises, keeping a log, and taking medicines can help with this condition. This information is not intended to replace advice given to you by your health care provider. Make sure you discuss any questions you have with your health care provider. Document Revised: 07/16/2021 Document Reviewed: 07/16/2021 [employer] Patient Education ? 2023 [employer]. UROLOGY OFFICE/CLINIC NOTE Observed: 12:52 PM Status: F Source: [facility] Urology Office/Clinic Note Chief Complaint uti f/u [...] With When Contact Information [facility] [place] [address] Business (1) Additional Instructions: our endoscopy technican will be contacting you for follow-up Patient [...] Immunizations Vaccine Date Status Comments SARS-CoV-2 (COVID-19) mRNAMUL.ORD![id number] 09/06/2022 Recorded SARS-CoV-2 (COVID-19) mRNA BNT-162b2 vax 07/02/2021 Recorded 2024-12-17: TPV65 SARS-CoV-2 (COVID-19) mRNA BNT-162b2 vax 06/11/2021 Recorded 2024-12-17: TPV65 influenza virus vaccine, inactivated 09/14/2013 Recorded Result Comment: Electronical ly Signed By: SHANTA SANDHU PA-C.diogo\Date and Time Signed: 01/03/25 12:53 EST PATIENT EDUCATION Observed: 01/03/2025 12:52 PM Status: F Source: [facility] Patient Education Caregiving Antibiotic Medicine, Adult Antibiotic [...] help right away if: ??? You have signs of a severe allergic reaction to antibiotics. If you have any of these signs, stop taking the antibiotic right away. Signs may include: ? Raised, itchy, red bumps on your skin (hives). ? Skin rash. ? Trouble breathing. ? High-pitched whistling sounds when you breathe, most often when you breathe out (wheezing). ? Swelling anywhere on your body. ? Feeling dizzy. ? Vomiting. ??? You have signs of liver problems, such as: ? Dark or blood-colored urine. ? Yellow color to your skin. ? Bruising or bleeding easily. ??? You have severe diarrhea, bloody diarrhea, or stomach cramps. ??? You have a severe headache. These symptoms may be an emergency. Get help right away. Call 911. ??? Do not wait to see if the symptoms will go away. ??? Do not drive yourself to the hospital. This information is not intended to replace advice given to you by your health care provider. Make sure you discuss any questions you have with your health care provider. Document Revised: 05/27/2023 Document Reviewed: 05/27/2023 [employer] Patient Education ? 2023 [employer]. AMBULATORY VISIT SUMMARY Observed: 12/28 9:40 AM Status: F Source: [facility] Ambulatory Visit Summary ADRIANA DINERO I :1955 Visit Date:12/28/2024 Ambulatory Visit Instructions Your Diagnosis UTI (urinary tract infection) Tests Performed Urine Culture -- Results Pending -- Please visit your patient portal for your results or contact your primary care physician. Your Care Team Attending Physician - SHANTA SANDHU PA-C Primary Care Physician - CONNIE QUINTANA MD This Is Your Medications List alprazolam atenolol doxycycline oxybutynin Procedures Performed Gallbladder, Hand surgery care plan, Hysterectomy, Rib resection and open drainage of pleural cavity. What to do next Scheduled Follow-Up Appointments 2024 8:20 AM EST With: SHANTA SANDHU PA-C Where: [facility] [address] [place] [address]- Medications What How Much When Instructions Unchanged [...] you for choosing us for your care. C URINE Observed: 12/28/2024 9:32 AM Status: F Source: [facility] Microbiology PROCEDURE: Urine Culture [R1] SOURCE: U Random BODY SITE: COLLECTED DATE/TIME: 12/28/2024 09:32 EST RECEIVED DATE/TIME: 12/28/2024 17:42 EST START DATE/TIME: 12/28/2024 17:42 EST FREE TEXT SOURCE: SHANTA SANDHU PA-C, PA-C, JENNIFER E FINAL REPORTS Final Report [] Verified Date/Time: 12/30/2024 09:37 EST >100,000 cfu/ml Enterobacter cloacae SUSCEPTIBILITY RESULTS LEGEND: S=Susceptible, N/R=Not Reported, Blank=Data not available, or drug not advisable or tested, I=Intermediate, ESBL=Extended spectrum beta-lactamase, R=Resistant, TFG=Thymidine-dependent strain, VINICIO=Beta-lactamase positive, OSCAR=mcg/m;(mg/L), S*=Predicted susceptible interp, [...] Locations R1: This test was performed at: [facility], [address] [place] [address], [address] [place] [address], Performed By: #### [id number] # ### [facility] [address] [place] [address] C URINE Observed: 12/28/2024 9:32 AM Status: F Source: [facility] Microbiology PROCEDURE: Urine Culture [R1] SOURCE: U Random BODY SITE: COLLECTED DATE/TIME: 12/28/2024 09:32 EST RECEIVED DATE/TIME: 12/28/2024 17:42 EST START DATE/TIME: 12/28/2024 17:42 EST FREE TEXT SOURCE: SHANTA SANDHU PA-C, PA-C, SHANTA Schofield FINAL REPORTS Final Report [] Verified Date/Time: 12/30/2024 09:37 EST >100,000 cfu/ml Enterobacter cloacae SUSCEPTIBILITY RESULTS LEGEND: S=Susceptible, N/R=Not Reported, Blank=Data not available, or drug not advisable or tested, I=Intermediate, ESBL=Extended spectrum beta-lactamase, R=Resistant, TFG=Thymidine-dependent strain, VINICIO=Beta-lactamase positive, OSCAR=mcg/m;(mg/L), S*=Predicted susceptible interp, [...] Locations R1: This test was performed at: [facility], [address] [place] [address], [address] [place] [address], Performed By: #### [id number] # ### [facility] [address] [place] [address] UROLOGY OFFICE/CLINIC NOTE Observed: 05/2025 12:04 PM Status: F Source: [facility] Urology Office/Clinic Note Chief Complaint referral incontinence HPI Staff 69yr old female pt referred by Connie Quintana for incontinence. Has lg volume incontinence both through the day and at night. She wears Depends daily, changes about 3-5x. Was in the hospital for a fall at the end of August, went to [facility] for rehab for about a month. Did [...] cysto as well as UTI preventives. Orders: [id number] Measure Post Void residual urine and/or bladder capacity by US- non- imaging 53365 Measure Post Void residual urine and/or bladder capacity by US- non- imaging Body Mass Index (BMI) documented 3008F Current [...] Urnls Dip Stick Auto w/o Microscopy POC 63281 Follow-up With When Contact Information PHOEBE LOWERY, SHANTA Schofield, URL In 2 weeks [address] [place] [address] Additional Instructions: Patient Education Overactive [...] Immunizations Vaccine Date Status Comments SARS-CoV-2 (COVID-19) mRNAMUL.ORD![id number] 09/06/2022 Recorded SARS-CoV-2 (COVID-19) mRNA BNT-162b2 vax 07/02/2021 Recorded 2024-12-17: TPV65 SARS-CoV-2 (COVID-19) mRNA BNT-162b2 vax 06/11/2021 Recorded 2024-12-17: TPV65 influenza virus vaccine, inactivated 09/14/2013 Recorded Lab Results Ambulatory Point of Care Results Bilirubin Urine Dipstick: Negative (12/17/24 11:07:00) Blood Urine Dipstick: Trace-intact (12/17/24 11:07:00) Glucose Urine Dipstick: Negative (12/17/24 11:07:00) Ketones Urine Dipstick: Negative (12/17/24 11:07:00) Leukocytes Urine Dipstick: 1+ Small (12/17/24 11:07:00) Nitrite Urine Dipstick: Negative (12/17/24 11:07:00) Protein Urine Dipstick: Trace (12/17/24 11:07:00) Specific Starlight Urine Dipstick: 1.020 (12/17/24 11:07:00) Urine Appearance Urine Dipstick: Clear (12/17/24 11:07:00) Urine Color Urine Dipstick: Yellow (12/17/24 11:07:00) Urobilinogen Urine Dipstick: Normal 0.2-1 EU/dl (12/17/24 11:07:00) pH Urine Dipstick: 6 (12/17/24 11:07:00) Result Comment: Electronical ly Signed By: SHANTA SANDHU PA-C\francisco\Date and Time Signed: 12/17/24 12:07 EST PATIENT EDUCATION Observed: 12/17/2024 12:04 PM Status: F Source: [facility] Patient Education Obstetrics and Gynecology Overactive Bladder, [...] health care provider. General instructions ??? Take gfcx-mzb-vusohiz and prescription medicines only as told by [...] your health care provider monitor your condition. ??? Keep all follow-up visits. This is important. Contact a health care provider if: ??? You have a fever or chills. ??? Your symptoms do not get better with treatment. ??? Your pain and discomfort get worse. ??? You have more frequent urges to urinate. Get help right away if: ??? You are not able to control your bladder. Summary ??? Overactive bladder refers to a condition in which a person has a sudden and frequent need to urinate. ??? Several conditions may lead to an overactive bladder. ??? Treatment for overactive bladder depends on the cause and severity of your condition. ??? Making lifestyle changes, doing Kegel exercises, keeping a log, and taking medicines can help with this condition. This information is not intended to replace advice given to you by your health care provider. Make sure you discuss any questions you have with your health care provider. Document Revised: 07/16/2021 Document Reviewed: 07/16/2021 [employer] Patient Education ? 2023 [employer]. URINE CULTURE Observed: 12/13/2024 9:15 AM Status: F Source: [facility] ORGANISM: Staphylococcus epi dermidis (O:STAEPI) [place] Count >100,000 Aerobic OSCAR Charge (PCMIC38) SUSCEPTIBILITY ORGANISM: O:STAEPI ANTIBIOTIC INTERPRETATION OSCAR Ciprofloxacin R >2 Daptomycin S <0.5 Levofloxacin R >4 Linezolid S <1 Nitrofurantoin S <32 Oxacillin R >2 Penicillin R >2 Tetracycline S <4 Trimethoprim/Sulfamethoxazole R >2 Vancomycin S 1 S = [...] RESISTANT TO ALL B-LACTAM DRUGS. PERFORMED BY: [place] [id number] PATHOLOGIST [employer] SUPERVISOR ZAC PORTILLO M.D. Performed By: #### CUU #### [place] [id number] [facility] DIPSTICK AND MICROSCOPIC Collected: 8:00 AM Status: F Source: [facility] Order Comment: Name Collecti on Type:: Voided TYPE CODE TESTS RESULT OUT OF RANGE REFERENCE UNITS LAB UCOL Color,Urine Yellow Yellow LAB UAPP Appearance,Uri ne Clear Clear LAB USG Specificy Starlight,Urine 1.017 Normal 1.001-1.030 LAB UPH pH,Urine 6.5 Normal 5.0-9.0 LAB ULE Leukocyte Esterase,Urine 2+ High Negative LAB UNIT Nitrite,Urine Negative Negative LAB UPRO Protein,Urine Negative Negative LAB UGL Glucose,Urine (UA) Normal Normal LAB UKET Ketones,Urine Negative Negative LAB UURO Urobilinogen,U rine 3 High Normal mg/dL LAB UBIL Bilirubin,Urin e Negative Negative LAB UBLD Occult Blood,Urine Negative Negative Result Comment: PERFORMED BY : [address] [address] PATHOLOGIST [employer] SUPERVISOR ZAC PORTILLO M.D. LAB URBC RBC,Urine 1 0-4 [HPF] LAB UWBC WBC,Urine 10 High 0-4 [HPF] LAB USQEPI Squamous Epithelial Cell,Urine 1 0-2 [HPF] LAB UBACT Bacteria,Urine None Seen None Seen LAB UHYALC Hyaline Casts,Urine None 0-8 LAB MUCUS Mucus,Urine Rare Result Comment: PERFORMED BY : [address] [address] PATHOLOGIST [employer] SUPERVISOR ZAC PORTILLO M.D. Performed By: #### ADDLARSUAPL US, CUU #### [address] [place] [address] [facility] URINE CULTURE Observed: 12/01/2024 8:00 AM Status: F Source: [facility] ORGANISM: Klebsiella aerogen es (O:KLEAER) [place] Count >100,000 Aerobic OSCAR Charge (NMIC56) SUSCEPTIBILITY ORGANISM: O:KLEAER ANTIBIOTIC INTERPRETATION OSCAR Amikacin S <16 Aztreonam IB <4 Cefepime S <2 Ceftazidime R >16 Ceftazidime/Avibactam S <4 Ceftriaxone R 32 Cefuroxime R >16 Ciprofloxacin S <0.25 Ertapenem S <0.5 Gentamicin S <2 Levofloxacin S <0.5 Meropenem S <1 Meropenem/Vaborbactam S <2 Nitrofurantoin I 64 Piperacillin/Tazobactam I 64 Tetracycline S <4 Tigecycline S <2 Tobramycin S <2 Trimethoprim/Sulfamethoxazole S <0.5 S = SUSCEPTIBLE I = [...] RESISTANT TO ALL B-LACTAM DRUGS. PERFORMED BY: [place] [address] PATHOLOGIST [employer] SUPERVISOR ZAC PORTILLO M.D. Performed By: #### ADDONUAPL [facility] #### [place] [id number] [facility] ALLERGIES DATE TYPE / CODE NAME / CODE REACTION SEVERITY SOURCE 03/11/2025 DRUG INGREDI/63162 1003(SNOMED CT) OXYCODONE [facility] 12/13/2024 Drug Allergy/26243 8002(SNOMED CT) Sulfa (Sulfonamide Antibiotics)/J1357 97307(RXNORM) Rash Unknown [facility] 12/13/2024 Drug Allergy/49397 8002(SNOMED CT) sulfacetamide/F006 109516(RXNORM) Rash Unknown [facility] 11/13/2023 Drug Class/4940943 03(SNOMED CT) SULFA (SULFONAMIDE ANTIBIOTICS) [facility] Ambulatory DR/547160458( SNOMED CT) sulfa drugs [id number] [facility] ENCOUNTERS ADMIT/DISCHARGE ACCOUNT NUMBER ADMITTING ENCOUNTER CLASS LOCATION SOURCE 04/11/2025/04/11/20 [id number] [place] [facility] 03/11/2025/03/11/20 [id number] Ambulatory Building:[address] Ambulatory 01/21/2025/01/22/20 [id number] [place] : Exam 1 [facility] 01/03/2025/01/03/20 25 [id number] Ambulatory [place] : CD:[id number] 3 [facility] 12/28/2024/12/28/19 25 [id number] SHANTA SANDHU [facility] 12/28/2024/12/28/19 25 [id number] SHANTA SANDHU [facility] 12/28/2024/12/28/19 25 [id number] [facility] [place]12[facility]17[facility] 25 [id number] Ambulatory [place] [place] : CD:[id number] 5 [facility] 12/15/2024 [id number] Ambulatory [place] [facility] 12/13/2024/12/13/19 [id number] [facility] 12/01/2024/12/01/19 [id number] Wen [facility] PAYERS ENCOUNTER GUARANTOR PAYER SUBSCRIBER SOURCE 04/11/2025 ADRIANA GARCIAB: [facility] [address]Tel: [phone]~~[phone] (HP) Primary Insurance:AETNAPolicy Number: [id number] Date:3543-89-02[id number] [place] [address] 210[address]PZ: ADRIANA [facility] 03/11/2025 ADRIANA PALMERDOB: [facility] [address] [place] [address] 22[address]Wve: (HP) Primary Insurance:AETNA MEDICAREPolicy Number: [id number] Date:2023-05-10 ADRIANA DINERODOB: [id number] [facility] [address] [place] [address] 106[address]Gxy: (HP) [facility] 01/21/2025 ADRIANA DINERODOB: [id number] 229Tel: [phone]~~[phone] (HP) Primary Insurance:AETNAPolicy Number: [id number] Date:1858-26-93[address] [place] [address]FO: ADRIANA [facility] 01/03/2025 ADRIANA DINERODOB: [id number] [facility] [address]Tel: [phone]~~[phone] (HP) Primary Insurance:AETNAPolicy Number: [id number] Date:2061-23-15ON [address] [place] [address] 618[address]QD: ADRIANA [facility] 12/28/2024 ADRIANA DINERODOB: [id number] [facility] [address]Tel: [phone]~~[phone] (HP) Primary Insurance:AETNAPolicy Number: [id number] Date:7298-44-12ZY [address] [place] [address]AW: ADRIANA ALMARAZ [facility] 12/28/2024 ADRIANA DINERODOB: [id number] [facility] [address] 229Tel: [phone]~~[phone] (HP) Primary Insurance:AETNAPolicy Number: [id number] Date:1684-34-59DX [address] [facility]ITALASHLYN [address]SJ: ADRIANA ALMARAZ [facility] 12/28/2024 ADRIANA DINERODOB: [id number] [facility] [address]Tel: [phone]~~[phone] (HP) Primary Insurance:AETNAPolicy Number: [id number] Date:7351-60-05ZU [address] [place] [address]VX: [facility]2024 ADRIANA DINERODOB: [id number] [facility] [address] 229Tel: [phone]~~[phone] (HP) Primary Insurance:AETNAPolicy Number: [id number] Date:3758-92-59[address] [place] [address]KN: [facility] 12/13/[address] [place] [address]Aos: (HP) Primary Insurance:Aetna MCR PFFSPolicy Number: [id number] Date:0264-79-87QJ [address] [address]HK: Adriana DineroDOB: [id number] [address]Ukc: (HP) [facility] 12/13/2024 Secondary Insurance:Self PayPolicy Number: Effective Date:2024-12-13 NOT GIVENUNK [facility] 12/01/2024 Adriana Anna [address] [address]Ylv: () Primary Insurance:Aetna [facility] PFFSPolicy Number: [id number] Date:1518-81-22DD [address] ASH[place]N [place] [address]AV: Adriana DineroDOB: [id number] [place] [address]Buf: () [facility] 12/01/2024 Secondary Insurance:Self PayPolicy Number: Effective Date:2024-12-01 [facility]
--- OUTSIDE RECORDS SUMMARY | 2025-06-17 07:45 | XMS_ITS | Continuity of Care Document ---
Author Organization [facility] Address [address] [facility] [place] [address] Phone Care Team Providers Care Easter Bunny Name Role Phone Tejas Kwong MD Unavailable Unavailable Allergies, Adverse Reactions, Alerts Substance Reaction Status Criticality NSAIDS (Non-Steroidal Anti-Inflammatory Drug) Active No Information Sulfa (Sulfonamide Antibiotics) Active No Information DULOXETINE HCL Active No Informatio n Medications Medication Instructions Dosage Effective Dates (start - stop) Status Comments atenolol 50 mg tablet take 1 tablet by o ral route every day 50 MG - Active alprazolam 1 mg tablet take 1 tablet by oral route 2 times every day 1 MG - Active oxybutynin chloride ER 15 mg tablet,extended release 24 hr take 1 tablet by oral route every day 15 MG - Active Procedures Procedure Date DRAIN/INJECT JOINT/BURSA BILATERAL ([facility]) Betamethasone 6MG 5 ([facility]) Betamethasone 6MG 5 DRAIN/INJECT, JOINT/BURSA ([facility]) Betamethasone 6MG 5 DRAIN/INJECT JOINT/BURSA BILATERAL X-ray Exam Of Knee, 3 Views (Right Or Le ft) X-ray Exam Of Knee, 3 Views (Right Or Le ft) OFFICE/OUTPATIENT VISIT, NEW Advance Directives Directive Yes / No Effective Date File Name No Information Encounters Encounter Description Practice Location Reason(s) For Visit Diagnoses Date Provider Providers Copied on Encounter [facility], [address] [place] [address] [address], [place], [place], [id number] , [place] tel:[phone] [facility] Musculoskeleta l Pain (chief complaint) Arthritis of right kneeArthritis of left knee [address] Lazaro. [address] [address], [place], [place], [id number] , [place]. tel:[phone] Referring Provider: Tejas Schofield, [address] [address], [place], [address] . tel:[phone] [facility], [address] [place] [address] [address], [place], [place], [id number] , [place] [phone] [facility] Musculoskeleta l Pain (chief complaint) Arthritis of right kneeArthritis of left knee Feb-3 5 [facility] Lazaro. [address] [address], [place], [place], [id number] , [place]. [phone] Referring Provider: Tejas Schofield, [address] [address], [place], [address] . tel:[phone] OFFICE/OUTPA TIENT VISIT, [facility], [address] [place] [address] [address], [place], [place], [id number] , [place] [phone] [facility] Musculoskeleta l Pain (chief complaint) Arthritis of right kneeArthritis of left knee Feb-0 5 [facility] Lazaro. [address] [address], [place], [place], [id number] , [place]. tel:[phone] Referring Provider: Tejas Schofield, [address] [address], [place], [address] . tel:[phone] Family History Family Member Type Diagnosis Age At Onset No Information Payers Payer name Insurance type Covered constitution party ID Authoriza tiregina(s) [employer] Medicare Primary MB [id number] Social History Type Description Quantity Date Captured Comments Alcohol Use Details No Caffeine Use Details Unknown Tobacco Use Status Current non-smoker Smoking Status Never smoker Sex Female Vital Signs Date / Time: Height Weight BMI Pulse Rate Blood Pressure Temperature Respiratory Rate Body Surface Area Head Circumference Head Circ. Percentile Wt./Dao. Percentile BMI percentile Pulse Ox Inhaled Ox 11:37 AM 66.00 in 96.615 kg (213.00 lbs) 34.3 8 kg/m eter (2) 71 /min 122/78 mm[Hg] 98 % Chief Complaint And Reason For Visit From encounter dated '06/17/2025 11:45'. Musculoskeletal Pain (chief complaint). Description: Onset: gradual. Duration: varies. Severity level is 8. The problem is worsening. Location: bilateral knee. The pain is aggravated by movement, walking and standing. The pain is relieved by rest. Associated symptoms include decreased mobility, joint instability, popping, swelling, weakness, grinding and. Additional information: 3 month f/u after bilateral knee CSI on 03/09/25, she reports significant improvement lasting 2-2.5 months. Reason For Referral Reason For Referral No Information Plan Of Treatment Date Type Action Status Referral Ordered: X-ray Exam Of Knee, 3 Views (Right Or Left) ordered Appointment Adriana Dinero BOOKED History Of Present Illness Encounter Date Complaint History Of Prese nt Illness Musculoskeletal Pain Onset: grad ual. Duration: varies. Severity level is 8. The problem is worsening. Location: bilateral knee. The pain is aggravated by movement, walking and standing. The pain is relieved by rest. Associated symptoms include decreased mobility, joint instability, popping, swelling, weakness, grinding and. Additional information: 3 month f/u after bilateral knee CSI on 03/09/25, she reports significant improvement lasting 2-2.5 months. Musculoskeletal Pain Onset: grad ual. Duration: varies. Severity level is 6. Location: bilateral knee. The pain is aggravated by movement, sitting, walking and standing. The pain is relieved by injection, pain/RX meds and rest. Associated symptoms include decreased mobility, joint instability and swelling. Pertinent negatives include numbness and tingling in the legs. Additional information: she had CSI of both knee from her PCP on 12/09/24 w/ moderate relief. She reports pain has been getting worst the last couple of weeks, would like CSI today. Musculoskeletal Pain Onset: grad ual. Duration: varies. Severity level is 7. It occurs constantly. Location: bilateral knee. The pain is aggravated by movement, walking and standing. The pain is relieved by rest. Associated symptoms include decreased mobility, joint instability, joint tenderness, popping and weakness. Additional information: Longstanding Bilateral knee pain, worse over the last few years. She states she is not able to walk without the walker do to pain and instability. She has CSI from her PCP on 12/10/24, with moderate relief but has worn off. She has a h/o chronic back pain w/ surgery x2, nerve blocks, ablations. Functional Status Date Functional Assessmen t No Information Instructions Date Instruction Additional Infor anuel Adriana is a 70-ye ar-old female, history of bilateral knee osteoarthritis that has been conservative treatment with home exercises, weight loss and cortisone injections. Her last appointment we gave her a cortisone injection both knees and she noticed improvement of her symptoms for about 2 months. The patient is walking full weight-bearing with a walker and has severe pain.She is coming today with her . On physical examination valgus deformities with decrease of motion and strength. The patient also has history of lower back issues. Multiple surgeries. We discussed treatment options and decided do a cortisone injection both knees today procedure that was done under sterile conditions and the patient tolerated well. We will see her back in 3 months for follow-up. The patient wants to have a surgical procedure in I told her that if she is going to need clearance from Cardiology and her primary care physician. They agreed with the plan all questions were answered to his satisfaction. Related to Arthritis of right knee Lena is a 70-year -old male, history of bilateral knee osteoarthritis that has been conservative treatment. Anteriorly She has exacerbation of the pain in both knees. We discussed treatment options and decided to do a cortisone injection in both knees.Due to her back issues and knee issues the patient needs a Rollator because the patient needs to sit down for a break and can only walk for a few steps at a time. I cane or a regular walker we will know work because of her gait, unsteadiness and distance. This will help with her MRADL and mobility, stability and the patient is we will be able to use it safely. We will see her back in 3 months for follow-up. Related to Arthritis of right knee The patient at this point does not want to have any procedures. Related to Arthritis of left knee Adriana is a 70-ye ar-old female, Longstanding Bilateral knee pain, worse over the last few years. She states she is not able to walk without the walker do to pain and instability. She has CSI from her PCP on 12/10/24, with moderate relief but has worn off. She has a h/o chronic back pain w/ surgery x2, nerve blocks, ablations. Today the patient is walking full weight-bearing with a walker rating her pain worse on the left side.We review x-ray findings. The patient has severe arthritic changes of the knee. We discussed treatment options including conservative and surgical. At this point the patient does not want any surgical procedure and is too soon for her to have a cortisone injection. We will see her back in March 09 for a cortisone injection of both knees. Related to Arthritis of right knee Assessments Type Assessment Date assessment Arthritis of right knee 025 assessment Arthritis of left knee Patient Care Teams Name Effective Dates (start - stop) Status Members No Information
--- OUTSIDE RECORDS SUMMARY | 2025-08-10 07:31 | XMS_ITS | Continuity of Care Document ---
Author Organization [facility] Address [address] [place] [address] Phone Care Team Providers Care Musical Engineer Name Role Phone Connie Stewart MD Primary Care Provider Connie Stewart MD Attending Provider Tushar Kearns DO Attending Provider Care Teams Patient Care Team Team Status: Active Member Role Status Dates Iban Torrez MD Specialist Active Evin Ya MD Specialist Active Connie Stewart MD Primary Care Provider Active Visit Care Team Team Status: Inactive Member Role Status Dates Connie Stewart MD Primary Care Provider Active Start: May 19, 2025 End: May 19, 2025 Connie Stewart MD Attending Provider Active St art: May 19, 2025 End: May 19, 2025 Visit Care Team Team Status: Inactive Member Role Status Dates Connie Stewart MD Primary Care Provider Active Start: June 03, 2025 End: June 03, 2025 Tushar Kearns DO Attending Provider Active Sta rt: June 03, 2025 End: June 03, 2025 Visit Care Team Team Status: Inactive Member Role Status Dates Connie Stewart MD Primary Care Provider Active Start: June 13, 2025 End: June 13, 2025 Connie Stewart MD Attending Provider Active St art: June 13, 2025 End: June 13, 2025 Patient Care Team Team Status: Inactive Member Role Status Dates Connie Stewart MD Primary Care Provider Active Start: August 10, 2025 End: August 10, 2025 Connie Stewart MD Attending Provider Active St art: August 10, 2025 End: August 10, 2025 Chief Complaint and Reason for Visit Chief Complaint Admit Date shoulder pain May 19, 2025 10:1 1am UA, burning June 03, 2025 9:01 am UA, recheck June 13, 2025 9:3 7am Virtual, Discuss Xrays August 10, 2025 10:17am Reason for Visit Admit Date Joint pain May 19, 2025 10:1 1am Neck pain May 19, 2025 10:1 1am Upper arm pain May 19, 2025 10:1 1am Dysuria June 13, 2025 9:3 7am Insomnia August 10, 2025 10 :17am Left knee pain August 10, 2025 10 :17am Lumbar radiculopathy, chronic August 10:17am Allergies, Adverse Reactions, Alerts Allergen Type Severity Reaction Last Updated Verified Status Comments Sulfa (Sulfonamide Antibiotics) Allergy Unknown Rash August 10, 2025 8:28am Yes Active Onset Date: 07/28/2013 sulfacetamide Allergy Unknown rash August 8:28am Yes Active Social History Smoking Status Unknown if ever smoked Observation Status Observation Response Date of Response Legal Sex Female (finding) Sex Assigned At Female January Family History Relationship Condition Age at Onset Recorded Date/T harris brother Malignant neoplasm Unknown father Unknown family member Unknown grandparent Unknown grandparent Unknown grandparent Unknown grandparent Unknown mother Unknown Problems Active Problems Medical Problem Onset Date Status Upper arm pain Unknown Active Leg ulcer, left Unknown Active Lumbar radiculopathy, chronic Unknown Ac tive Medicare annual wellness visit, subsequent Unkno wn Active Insomnia Unknown Active Fatigue Unknown Active Joint pain Unknown Active Urticaria Unknown Active Diminished pulses in lower extremity Unknown Active Urinary frequency Unknown Active Anxiety Unknown Active Arrhythmia Unknown Active Dysuria Unknown Active Hyperlipidemia Unknown Active Incontinence Unknown Active Bilateral cold feet Unknown Active SVT (supraventricular tachycardia) Unknown Active Bilateral lower extremity pain Unknown A ctive PAD (peripheral artery disease) Unknown Active Left knee pain Unknown Active Right knee pain Unknown Active Neck pain Unknown Active Asthma Unknown Active Medications Medication Status Dose Units Route Directions Qty Days St art Date Stop Date End Date Instructions Adherence Oxycodone 5 mg tablet Discont inued 5 MG PO Every 6 hours 28 7 Februa ry 2023 Febru gui 2023 2:13p m Oxycodone 5 mg tablet Discont inued 5 MG PO Every 6 hours 28 7 Februa 2023April 23, 2024 2:57p m Alprazolam 1 mg tablet Discont inued 1 MG PO Twice daily as needed for anxiety 60 30 January 26, 2024 12:42p m March 08, 2024 12:20 pm Alprazolam 1 mg tablet Discont inued 1 MG PO Twice daily as needed for anxiety 60 30 March 08, 2024 12:20p m April 06, 2024 12:50 pm Atenolol 25 mg tablet Discont inued 50 MG PO Daily at bedtime April 02, 2024 12:17p m June 07, 2024 2:18p m Alprazolam 1 mg tablet Discont inued 1 MG PO Twice daily as needed for anxiety 60 30 April 06, 2024 12:50p m May 05, 2024 10:48 am Furosemide 20 mg tablet Discont inued 20 MG PO Daily April 23, 2024 12:00a m April 30, 2024 9:38a m Alprazolam 1 mg tablet Discont inued 1 MG PO Twice daily as needed for anxiety 60 30 May 05, 2024 10:48a m June 05, 2024 7:40a m Alprazolam 1 mg tablet Discont inued 1 MG PO Twice daily as needed for anxiety 60 30 June 05, 2024 7:40am Augus t 2023 9:51a m Atenolol 25 mg tablet Discont inued 25 MG PO Three times daily June 07, 2024 2:17pm Decem son 2023 5:30p m 1 po qam; 2 po qpm Alprazolam 1 mg tablet Discont inued 1 MG PO Twice daily as needed for anxiety 60 July 02, 2024 9:49am Septe mber 2023 12:44 pm Fill on or after 07/04 Alprazolam 1 mg tablet Discont inued 1 MG PO Twice daily as needed for anxiety 60 30 Septem son 2023 12:44p m Octob er 2023 6:27p m Fill on or after 825 Pregabalin (Lyrica) 50 mg capsule Discont inued 50 MG PO Three times daily 90 30 Octobe r 2023 12:00a m Novem son 2023 9:16a m Alprazolam 1 mg tablet Discont inued 1 MG PO Twice daily as needed for anxiety 14 7 Octobe r 2023 6:26pm Octob er 2023 1:55p m p/u 09/03 Alprazolam 1 mg tablet Discont inued 1 MG PO Twice daily as needed for anxiety 60 30 Octobe r 2023 1:54pm Novem son 2023 9:16a m 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 09/12 Alprazolam 1 mg tablet Discont inued 1 MG PO Twice daily as needed for anxiety 30 15 Novemb er 2023 9:12am Novem son 2023 12:16 pm Pregabalin (Lyrica) 50 mg capsule Discont inued 50 MG PO Three times daily 45 15 Novemb er 2023 9:13am Novem son 2023 12:16 pm Pregabalin (Lyrica) 25 mg capsule Discont inued 50 MG PO Three times daily 4 1 b er 2023 1:00am Novem son 2023 9:14a m Alprazolam 2 mg tablet Discont inued 2 MG PO Daily at bedtime 15 15 Novemb er 2023 1:00am Novem son 2023 12:16 pm Pregabalin (Lyrica) 50 mg capsule Discont inued 50 MG PO Three times daily 45 15 Novemb er 2023 12:13p m Novem son 2023 12:18 pm Alprazolam 2 mg tablet Discont inued 2 MG PO Daily at bedtime 15 15 Novemb er 2023 12:15p m Decem son 2023 11:00 pm Alprazolam 1 mg tablet Discont inued 1 MG PO Twice daily as needed for anxiety 30 15 Novemb er 2023 12:16p m Decem son 2023 11:02 pm Pregabalin (Lyrica) 50 mg capsule Discont inued 50 MG PO Three times daily 45 15 Novemb er 2023 12:16p m Decem son 2023 11:02 pm Pregabalin (Lyrica) 50 mg capsule Discont inued 50 MG PO Three times daily 90 30 Dece er 2023 10:59p m Janua ry 2024 11:55 am Alprazolam 1 mg tablet Discont inued 1 MG PO Twice daily as needed for anxiety 60 30 Dece er 2023 11:01p m Janua ry 2024 2:17p m Doxycycline Hyclate 100 mg tablet Discont inued 100 MG PO Twice daily 14 [facility] er 2023 1:00am [facility] son 2023 5:54p m Atenolol 25 mg tablet Active 0 .ROUTE .COMPLEX 90 [facility] er 2023 5:30pm TAKE 1 TABLET BY MOUTH IN THE MORNING and 2 (TWO) tablets IN THE EVENING Complies with drug therapy Ondansetron 4 mg tablet,disi ntegrating Discont inued 4 MG PO Q8H as needed for nausea and vomiting 30 [facility] er 2023 1:00am [facility] ry 2024 11:55 am Cephalexin 500 mg capsule Discont inued 500 MG PO Three times daily 21 7 [facility] er 2023 1:00am Dece son 2023 11:00 am Cephalexin 500 mg capsule Discont inued 500 MG PO Three times daily 21 7 [facility] er 2023 11:00a m [facility] ry 2024 2:52p m Alprazolam 1 mg tablet Discont inued 1 MG PO Twice daily as needed for anxiety 60 Novuar y 2024 2:17pm Febru gui 2024 1:06p m Ciprofloxac in Hcl 250 mg tablet Discont inued 250 MG PO Twice daily Novuar y 2024 1:00am February 08, 2025 8:58a m Albuterol Sulfate 2.5 mg /3 mL (0.083 %) solution for nebulizatio n Active 2.5 MG INHALA TION EVERY 4-6 HOURS as needed for shortness of breath or wheezing 90 30 [facility] ry 2024 1:00am Complies with drug therapy Doxycycline Hyclate 100 mg capsule Discont inued 100 MG PO Twice daily ua ry 2024 1:00am February 08, 2025 8:59a m Alprazolam 1 mg tablet Discont inued 1 MG PO Twice daily as needed for anxiety 60 2024 1:06pm January 17, 2025 10:39 am Alprazolam 1 mg tablet Discont inued 1 MG PO Twice daily as needed for anxiety 60 January 17, 2025 10:39a m February 17, 2025 9:40a m Nebulizers (Mc 300 Nebulizer-U nvrsl Tubing) misc Active 0 .Route February 13, 2025 12:00a m As directed Alprazolam 1 mg tablet Discont inued 1 MG PO Twice daily as needed for anxiety 60 February 17, 2025 9:39am February 17, 2025 12:32 pm Alprazolam 1 mg tablet Discont inued 1 MG PO Twice daily as needed for anxiety 60 February 17, 2025 12:32p m March 17, 2025 1:25p m Prednisone 20 mg tablet Discont inued 20 MG PO Daily March 24, 2025 11:46a m April 29, 2025 1:59p m Tizanidine 2 mg tablet Discont inued 2 MG PO Every 8 hours as needed for muscle spasticity March 24, 2025 11:46a m April 29, 2025 1:59p m Alprazolam 1 mg tablet Discont inued 1 MG PO Twice daily 60 April 15, 2025 10:04a m May 12, 2025 11:32 am Alprazolam 1 mg tablet Discont inued 1 MG PO Twice daily 60 May 12, 2025 11:32a m Augus t 2024 8:32a m Alprazolam 1 mg tablet Discont inued 1 MG PO Twice daily 60 June 17, 2025 8:32am Septe mber 2024 9:04a m Amoxicillin 500 mg tablet Active 1000 MG PO Twice daily 4 2024 12:00a m Complies with drug therapy Alprazolam 1 mg tablet Active 1 MG PO Twice daily 60 2024 9:04am Complies with drug therapy Atenolol 25 mg Tablet Discont inued 25 MG PO Daily April 08, 2019 12:00a m January 16, 2024 11:15 am Alprazolam 2 mg Tablet Discont inued 2 MG PO Daily at bedtime April 08, 2019 12:00a m January 16, 2024 11:14 am Atenolol 50 mg Tablet Discont inued 50 MG PO Every evening April 08, 2019 12:00a m January 16, 2024 11:15 am Naproxen 500 mg Tablet Discont inued 500 MG PO Twice daily April 08, 2019 12:00a m [facility] 2023 11:07 am Duloxetine 60 mg Capsule,Del ayed Release(Dr/ Ec) Discont inued 60 MG PO Daily April 08, 2019 12:00a m [facility]2023 11:07 am Atenolol 25 mg tablet Discont inued 50 MG PO Daily at bedtime January 16, 2024 11:14a m April 02, 2024 12:18 pm Oxycodone-A cetaminophe n 5-325 mg tablet Discont inued 1 TAB PO Every 4 hours as needed 2023 1:00am 2023 2:13p m Oxycodone 5 mg tablet Discont inued 5 MG PO Every 6 hours 2023 1:00am [facility] 2023 4:51p m Alprazolam 1 mg tablet Discont inued 1 MG PO Twice daily as needed January 16, 2024 1:00am January 26, 2024 12:43 pm Promethazin e 12.5 mg tablet Discont inued 12.5 MG PO Every 6 hours as needed January 16, 2024 1:00am February 10, 2024 1:10p m Prednisone 20 mg tablet Discont inued 20 MG PO Twice daily January 19, 2024 12:00a m February 10, 2024 1:10p m Tizanidine 4 mg tablet Discont inued 4 MG PO Every 8 hours as needed for muscle spasticity January 19, 2024 12:00a m February 10, 2024 1:10p m Trazodone 50 mg tablet Discont inued 50 MG PO Daily at bedtime 2024 1:00am Nov 2024 11:55 am Oxybutynin Chloride 10 mg tablet extended release 24hr Discont inued 10 MG PO Daily 2024 1:00am February 08, 2025 8:59a m Albuterol Sulfate 90 mcg/actuati on HFA aerosol inhaler Active 2 PUFF INHALA TION EVERY 4-6 HOURS as needed for shortness of breath or wheezing 6.7 Novuar y 2024 1:00am Complies with drug therapy Oxybutynin Chloride 15 mg tablet extended release 24hr Discont inued MG PO February 08, 2025 12:00a m May 19, 2025 10:20 am Alprazolam 1 mg tablet Discont inued 1 MG PO Twice daily as needed for anxiety 60 March 17, 2025 1:18pm April 15, 2025 10:05 am Prednisone 20 mg tablet Discont inued 20 MG PO Daily April 29, 2025 1:58pm May 19, 2025 10:20 am Tizanidine 2 mg tablet Discont inued 2 MG PO Every 8 hours as needed for muscle spasticity April 29, 2025 1:58pm May 19, 2025 10:20 am Nitrofurant oin Monohyd/M-C ryst 100 mg capsule Active 100 MG PO Every 12 hours 10 June 03, 2025 12:00a m must administer with a meal/food Complies with drug therapy Pregabalin (Lyrica) 75 mg capsule Discont inued 75 MG PO Twice daily 60 30 r 2023 12:00a m Octob er 2023 4:07p m Tizanidine 2 mg tablet Discont inued 2 MG PO Every 8 hours as needed for muscle spasticity March 09, 2025 12:00a m March 24, 2025 11:47 am Prednisone 20 mg tablet Discont inued 20 MG PO Daily March 09, 2025 12:00a m March 24, 2025 11:47 am Immunizations Immunization Event Date Not Given Reason Dose Number Meter Tester Polyphase Lot Number Vaccine Information Statement (VIS) Detail Administration Location Pneumococcal Polysacc. Vaccine, 23 valent July 14, 2007 Tetanus, Diphtheria adult, 5 Lf pres free abs September 15, 2013 Tetanus, Diphtheria adult, 5 Lf pres free abs September 12, 2014 Relevant Diagnostic Tests and/or Laboratory Data Laboratory Results Test Collection Date/Time Result Date/Time Result Interpretation Reference Range Result Comment Performing Site Urine Color June 03, 2025 9:11am June 03, 2025 9:13am darkyellow Urine Color June 13, 2025 9:45am June 13, 2025 9:47am yellow Urine Appearanc e June 03, 2025 9:11am June 03, 2025 9:13am cloudy Urine Appearanc e June 13, 2025 9:45am June 13, 2025 9:47am clear Urine Specific [place] June 03, 2025 9:11am June 03, 2025 9:13am 1.000 Urine Specific [place] June 13, 2025 9:45am June 13, 2025 9:47am 1.000 Urine pH June 03, 2025 9:11am June 03, 2025 9:13am 5.0 Urine pH June 13, 2025 9:45am June 13, 2025 9:47am 5 Urine Leukocyte Esterase June 03, 2025 9:11am June 03, 2025 9:13am + Urine Leukocyte Esterase June 13, 2025 9:45am June 13, 2025 9:47am negative Urine Nitrite June 03, 2025 9:11am June 03, 2025 9:13am Positive Urine Nitrite June 13, 2025 9:45am June 13, 2025 9:47am Negative Urine Protein June 03, 2025 9:11am June 03, 2025 9:13am + Urine Protein June 13, 2025 9:45am June 13, 2025 9:47am negative Urine Glucose (UA) June 03, 2025 9:11am June 03, 2025 9:13am negative Urine Glucose (UA) June 13, 2025 9:45am June 13, 2025 9:47am negative Urine Ketones June 03, 2025 9:11am June 03, 2025 9:13am negative Urine Ketones June 13, 2025 9:45am June 13, 2025 9:47am negative Urine Urobilino gen June 03, 2025 9:11am June 03, 2025 9:13am 0.2 Urine Urobilino gen June 13, 2025 9:45am June 13, 2025 9:47am 0.2 Urine Bilirubin June 03, 2025 9:11am June 03, 2025 9:13am negative Urine Bilirubin June 13, 2025 9:45am June 13, 2025 9:47am negative Urine Occult Blood June 03, 2025 9:11am June 03, 2025 9:13am negative Urine Occult Blood June 13, 2025 9:45am June 13, 2025 9:47am negative Vital Signs Vital Reading Result Reference Range Collection Date/Time Height 65 [in_i] May 19, 2025 10:14am Weight 95.25 kg May 19, 2025 10:14am Heart Rate 80 /min 60-100 May 19, 2025 10:14am BP Systolic 105 mm[Hg] 100-140 May 19, 2025 10:14am BP Diastolic 75 mm[Hg] 60-100 May 19, 2025 10:14am BMI (Body Mass Index) 34.9 kg/m2 May 102024 10:14am Advance Directives Advance Directive Response Recorded Date/ Time Advance Directives No April 29 12:34pm Insurance Providers Guarantor Adriana Dinero I Address [address] [place] [id number] Contact Info. Home Phone: Payer Policy Id Subscriber's Name Subscriber Id Effective Date Expiration Date [employer] [facility] [id number] Adriana Dinero I [id number] [employer] [id number] Elliot Dinero [id number] Encounters Encounter Location(s) Arrival/Admit Date Discharge/Depart Date Provider(s) Departed Physician/Prov ider Office Visit -[facility] May 19, 2025 10:11am May 19, 2025 11:04am Connie Stewart MD Departed Physician/Prov ider Office Visit -[facility] June 03, 2025 9:01am June 03, 2025 9:13am Tushar Kearns DO Departed Physician/Prov ider Office Visit -[facility] June 13, 2025 9:37am June 13, 2025 10:03am Connie Stewart MD Departed Physician/Prov ider Office Visit -[facility] August 10, 2025 10:17am August 10, 2025 11:30am Connie Stewart MD Recent Diagnosis Onset Date Admit Date Joint pain Unknown May 19, 2025 10:11am Neck pain Unknown May 19, 2025 10:11am Upper arm pain Unknown May 19, 2025 10:11am Dysuria Unknown June 13, 2025 9:37am Insomnia Unknown August 10 10:17am Left knee pain Unknown August 10 10:17am Lumbar radiculopathy, chronic Unknown Oc tober 2024 10:17am Assessments Diagnosis Onset Date Resolution Status Admit Date Joint pain acute May 19 10:11am Neck pain acute May 19 10:11am Upper arm pain acute May 19, 2025 10:11am Dysuria acute June 13 9:37am Insomnia acute August 10, 2 025 10:17am Left knee pain acute August 10:17am Lumbar radiculopathy, chronic acute August 10, 2025 10:17am Plan of Treatment Author Connie [facility] Authored August 10, 2025 11 :05am xray ordered as requested. w ill forward result to her specialist. sees Dr. Kwong 09/20. Due for refill on the xanax on 07/16. reviewed OARRs and discussed this. Has been on xanax at bedtime since 1987 when her . OARRS reviewed. Added trazodone in February in hopes that better helps w her insomnia, it did not help. CS Contract signed earlier this year. Insomnia secondary to anxiety. Author Connie [facility] Authored May 19, 2025 2:14 pm Will confirm w HH when PT an d services are beginning as it is hard to get out of the house. Will notify her ortho that she sees on 06/10 that she has a new problem to discuss. Check xrays in meantime, and forward results to Dr. Kwong. Future Tests Future scheduled test information is unavailable Pending Tests Test Name Ordered Date Scheduled Date XR lumbar spine 2-3V* August 10, 2025 10:52am XR chest 2V* May 19, 2025 10:58am XR shoulder RT min 2V* May 19, 2025 10:58am XR cervical spine 5V* May 19, 2025 10:58am Future Visits Future appointment information is unavailable Referrals to Other Providers Referral information is unavailable Future Procedures Future procedure information is unavailable Future Medications Future medication information is unavailable Patient Instructions Patient instructions are unavailable
--- OUTSIDE RECORDS SUMMARY | 2025-08-11 10:44 | XMS_ITS | Patient Health Record ---
Author Organization [facility] Address [address] [place] [address] Care Team Providers Care Helix Coil Winder Name Role Phone Connie Stewart M.D. Primary Care Provider Unavail able VaughnUlises cruz Unavailable [phone] Allergies Allergen (clinical drug ingredient) Drug/Non Drug Allergy documented on EMR Reaction Allergy Type Onset Date Status Sulfa (uncoded) Unknown Allergy Acti ve Reason For Referral No Information Medications Medication SIG (Take, Route, Fr equency, Duration) Notes Start Date End Date Status furosemide 20 mg TAKE 1 TABLET BY LEDA TH DAILY for 5 Days Active ALPRAZolam 1 mg TAKE 1 TABLET BY LEDA TH TWICE DAILY NEEDED FOR ANXIETY FOR 30 DAYS for 30 Days Active atenolol 25 mg TAKE 2 TABLETS BY MO [facility] AT BEDTIME for 90 Days Active Social [...] Problem Status W/U Status Risk Notes Problem 591473407 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) Active confirmed Problem 695901229 Radiculopathy, lumbar region (M54.16) Active confirmed Problem [id number] Sciatica, righ t side (M54.31) Active confirmed Problem [id number] Sciatica, left side (M54.32) Active confirmed Problem 918759624 Primary osteoarthritis of both knees (M17.0) Active confirmed Problem 58199167 DDD (degenerativ e disc disease), lumbar (M51.36) Active confirmed Problem 689030786 Failed back syndrome (M96.1) Active confirmed Problem 78969334 Spinal stenosis, lumbar region without neurogenic claudication (M48.061) Active confirmed Encounters Encounter Location Date Provider Diagnosis [facility] [address] [place] [address] 10/06/2024 Ulises Vaughn Plan Of Treatment Pending Test Test Name Order Date Lumbar spine, 4v flex ext - [address] Scan Lumbar Spine W/O Contrast - 7213 1 02/13/2024 [facility]- KNEE 4 VIEW [id number] 04/26/2024 MRI LUMBAR WITHOUT CONTRAST 02/13/2024 [facility]- KNEE 4 VIEW RIGHT [id number] 04/26/2024 Insurance Providers Payer Name Payer Address Payer Phone Subscriber Number Group Number Insured Name Patient Relationship to Insured Coverage Start Date Coverage End Date Medicare A[employer] [address] [place] [address] [id number] INDERJIT MANN Self - patient is the insured Medications Administered Medication Instructions Date of Administration Dosage Notes Synvisc Series 05/19/2024 2 mL Synvisc Series 05/19/2024 2 mL Synvisc Series 05/26/2024 2 mL Synvisc Series 05/26/2024 2 mL Synvisc Series 06/02/2024 2 mL Synvisc Series 06/02/2024 2 mL Medical (General) History Medical History History ICD Code Abnormal Heart Rhythm Tuberculosis Carrier Gastric Reflux Cancer Osteoporosis Osteoarthritis Anxiety Depression Surgical History Surgery Date(Month/Year) peratonitis 2 lumbar lamendectomy Left, right rib resection Right hand
--- OUTSIDE RECORDS SUMMARY | 2025-08-11 10:44 | XMS_ITS | Clinical Summary ---
Author Organization [employer] Address [id number] [address] [place] [address] Care Team Providers Care Jeep Driver Name Role Phone Unavailable Primary Care Provider Unavailabl e Allergies Active Allergy Reactions Criticality Noted Date Comments Sulfa (Sulfonamide Antibiotics) 07/11 Medications atenolol (TENORMIN) 50 mg tablet 0 07/04/2017 Active DULoxetine (CYMBALTA) 60 mg capsule Take 60 mg by mouth daily. Active lovastatin (MEVACOR) 10 mg tablet Take 10 mg by mouth nightly. Active ALPRAZolam (XANAX) 1 mg tablet Take 1 tablet (1 mg total) by mouth nightly as needed for anxiety. Active fluticasone-anthony meterol (ADVAIR) 500-50 mcg/dose DISKUS Inhale 2 puffs 2 (two) times a day. Active oxyCODONE (ROXICODONE) 15 mg immediate release tablet Take 15 mg by mouth every 4 (four) hours as needed for pain. Active tiZANidine (ZANAFLEX) 2 mg tablet Take 2 mg by mouth every 6 (six) hours as needed for muscle spasms. Active Active Problems Problem Noted Date Diagnosed Date Bilateral leg edema 06/10/2024 Assessment & Plan (06/10/2024 1:34 PM EDT): Swelling and hyperemia with no DVT likely related to neuropathy. Compression therapy and leg elevation. Anxiety 07/23/2017 Supraventricular tachycardia 07/23/2017 Asthma 07/23/2017 Cancer 07/23/2017 COPD (chronic obstructive pulmonary disease) Depression 07/23/2017 Chronic gastroesophageal reflux disease 07/23/20 17 Migraine 07/23/2017 Fibromyalgia 07/23/2017 Social History Tobacco Use Types Packs/Day Years Used Date Smoking Tobacco: Former Smokeless Tobacco: Never Tobacco Cessation:Counseling Given: Not Answered Alcohol Use Standard Drinks/Week Comments No 0 (1 standard drink = 0.6 oz pur e alcohol) Childcare Answer Date Recorded Childcare Unknown 04/21/2019 Employment Answer Date Recorded Employment Unknown 04/21/2019 Hunger Screening Answer Date Recorded Within the past 12 months we worried whether our food would run out before we got money to buy more. Never True 06/10/2024 Within the past 12 months th e food we bought just didn't last and we didn't have money to get more. Never True 06/10/2024 Purpose - Life Answer Date Recorded Purpose and direction in life Unknown Comments Unknown Sex and Gender Information Value Date Recorded Sex Assigned at Not on file Legal Sex Female 11:24 AM EDT Gender Identity Not on file Sexual Orientation Not on file Last Filed Vital Signs Vital Sign Reading Time Taken Comments Blood Pressure 122/86 06/10/2024 10:23 AM EDT Pulse 74 06/10/2024 10:20 AM EDT Temperature - - Respiratory Rate - - Oxygen Saturation 98% 06/10/2024 10:20 AM EDT Inhaled Oxygen Concentration - - Weight 99.8 kg (220 lb) 06/10/2024 10:20 AM EDT Height 170.2 cm (5' 7 ) 06/10/2024 10:20 AM EDT Body Mass Index 34.46 06/10/2024 10:20 AM EDT Plan of Treatment Health Maintenance Due Date Last Done Comments Depression Screening 1968 Zoster (Shingles) Vaccine (1 of 2) 01/19/1975 Fall Risk Screening 01/19/2021 DTaP,Tdap and Td Vaccines (3 - Td or Tdap) 09/12/2024 09/12/2014, 09/15/2013 Adult BMI Screening 06/10/2025 06/10/2024 Tobacco Screening 06/10/2025 06/10/2024 COVID-19 Vaccine (4 - 2024-2 6 season) 2025 09/06/2022, 07/02/2021, 06/11/2021 Influenza Vaccine 07/11/2025 09/14/2013, , 07/19/2012, Additional history exists Medical Devices Not on file Insurance [employer]
--- OUTSIDE RECORDS SUMMARY | 2025-08-11 10:44 | XMS_ITS | Encounter Summary ---
Author Organization [facility] Address [address] [place] [address] Phone Care Team Providers Care Strong Nitric Operator Name Role Phone Connie Stewart MD Primary Care Provider [phone] Encounter Details Date Type Department Care Team (Late st Contact Info) Description 08/17/2019 Orders Only [facility] LEGACY [address] [place] [address] Conversion, Onbase Social History Tobacco Use Types Packs/Day Years Used Date Smoking Tobacco: Never Assessed Comments Unknown Sex and Gender Information Value Date Recorded Sex Assigned at Not on file Legal Sex Female 4:49 PM EST Gender Identity Not on file Sexual Orientation Not on file documented as of this encounter Plan of Treatment Upcoming Encounters Date Type Department Care Team (Late st Contact Info) Description 03/10/2026 2:00 PM EDT Office Visit [place] [address] [facility] [address] [place] [address] Iban Torrez MD 703 [facility] 2, [place] [address] [place] [address] Scheduled Orders Name Type Priority Associated Diagnoses Orde r Schedule OUTSIDE LAB SCAN Lab Ordered: 08/17/2019 documented as of this encounter Visit Diagnoses Not on filedocumented in this encounter Care Teams Strong Nitric Operator Relationship Specialty Start Date End Date Connie Stewart MD [address] [place] [address] [address] [place] [id number] PCP - General 08/25/19 documented as of this encounter
--- OUTSIDE RECORDS SUMMARY | 2025-08-11 10:44 | XMS_ITS | Clinical Summary ---
Author Organization [facility] Address [address] [place] [address] Phone Care Team Providers Care Jockey Agent Name Role Phone Connie Stewart MD Primary Care Provider [phone] Allergies Active Allergy Reactions Criticality Noted Date Comments Oxycodone Hallucinations 03/11/2025 Sulfa (Sulfonamide Antibiotics) Hives,Rash,Swelling Medium 11/13/2023 Medications omega 8-nkw-uqj-fish oil 360 mg-108 mg- 180 mg-1,200 mg capsule Take 1 capsule by mouth once daily. Active ALPRAZolam (Xanax) 1 mg tablet Take 1 tablet (1 mg) by mouth 3 times a day as needed. Active oxybutynin XL (Ditropan-XL) 15 mg 24 hr tablet Take 1 tablet (15 mg) by mouth once daily. Active atenolol (Tenormin) 50 mg tabletIndicatio ns:Supraventric ular tachycardia by ECG,Palpitation s Take 1 tablet (50 mg) by mouth see administration instructions. Take one in the am and half in the pm 135 tablet 3 03/11/20 25 026 Active Active Problems Problem Noted Date Diagnosed Date BMI 34.0-34.9,adult 03/11/2025 Former smoker 03/11/2025 Dyspnea 11/13/2023 Hyperlipidemia 11/13/2023 Palpitations 11/13/2023 Supraventricular tachycardia by ECG 11/13/2023 Immunizations Immunization Administration Dates Next Due Influenza, Unspecified 08/10/2013,07/19/2012,11/2009,08/10/2009 Influenza, seasonal, injectable 09/14/2013 Pfizer Purple Cap SARS-CoV-2 07/02/2021,06/11/20 21 Family History Medical History Relation Name Comments arteriosclerotic cardiovascular disease Father Relation Name Status Comments Father Social History Tobacco Use Types Packs/Day Years Used Date Smoking Tobacco: Former Cigarettes Smokeless Tobacco: Never Alcohol Use Standard Drinks/Week Comments Never 0 (1 standard drink = 0.6 oz pur e alcohol) Comments Unknown Sex and Gender Information Value Date Recorded Sex Assigned at Not on file Legal Sex Female 4:49 PM EST Gender Identity Not on file Sexual Orientation Not on file Last Filed Vital Signs Vital Sign Reading Time Taken Comments Blood Pressure 118/76 03/11/2025 3:32 PM EDT Pulse 56 03/11/2025 3:32 PM EDT Temperature - - Respiratory Rate - - Oxygen Saturation - - Inhaled Oxygen Concentration - - Weight 97.5 kg (215 lb) 03/11/2025 3:32 PM EDT Height 167.6 cm (5' 6 ) 03/11/2025 3:32 PM EDT Body Mass Index 34.7 03/11/2025 3:32 PM EDT Plan of Treatment Upcoming Encounters Date Type Department Care Team (Late st Contact Info) Description 03/10/2026 2:00 PM EDT Office Visit [facility] [address] [address] Iban Torrez MD 703 [facility] 2, [address] [address] Health Maintenance Due Date Last Done Comments CT Colonography 1956 Colonoscopy 1956 Colorectal Cancer Screening 1956 FIT-DNA (Cologuard) 1956 FIT 1956 Lipid Panel 1956 Sigmoidoscopy 1956 MMR Vaccines (1 of 1 - Standard series) 01/19/1957 Diabetes Screening 01/19/1974 Hepatitis C Screening 01/19/1974 Pneumococcal Vaccine (1 of 2 - PCV) 01/19/1975 DTaP/Tdap/Td Vaccines (1 - Tdap) 01/19/1978 Mammogram 1996 Zoster Vaccines (1 of 2) 01/19/2006 RSV High Risk: (Elderly (60+) or Population) (1 - Risk 60-74 years 1-dose series) 2016 Bone Density Scan 01/19/2021 Medicare Annual Wellness Visit (AWV) 12/31/2024 12/30/2023 COVID-19 Vaccine ( season) 2025 09/06/2022, 07/02/2021, 06/11/2021 Influenza Vaccine (#1) 2025 3, 08/10/2013, 07/19/2012, Additional history exists HIB Vaccines Aged Out No longer eligi ble based on patient's age to complete this topic HPV Vaccines Aged Out No longer eligi ble based on patient's age to complete this topic Hepatitis A Vaccines Aged Out No long er eligible based on patient's age to complete this topic Hepatitis B Vaccines Aged Out No long er eligible based on patient's age to complete this topic IPV Vaccines Aged Out No longer eligi ble based on patient's age to complete this topic Meningococcal Vaccine Aged Out No geraldine ortiz eligible based on patient's age to complete this topic Rotavirus Vaccines Aged Out No longer eligible based on patient's age to complete this topic Insurance [facility] MEDIC[facility] Care Teams Jockey Agent Relationship Specialty Start Date End Date Connie Stewart MD [address] [place], [place] [id number] PCP - General 08/25/19
--- OUTSIDE RECORDS SUMMARY | 2025-08-11 10:44 | XMS_ITS | Clinical Summary ---
Author Organization [facility] Address [address] [place] [address] Care Team Providers Care Helicopter Officer Name Role Phone Connie Stewart MD Primary Care Provider [phone] Allergies Active Allergy Reactions Criticality Noted Date Comments Sulfa (Sulfonamide Antibiotics) Hives High 07/07/2019 Was covered in hives Medications ALPRAZolam (XANAX) 1 mg tablet Take 2 mg by mouth daily at bedtime. Active fluticasone-anthony meterol (ADVAIR DISKUS) 500-50 mcg/dose dsdv Inhale 1 Puff as instructed twice daily. Active naproxen (NAPROSYN) 500 mg tablet Take 500 mg by mouth twice daily with meals. Active HYDROcodone-bridgette taminophen (NORCO) 5-325 mg per tablet Take 1 tablet by mouth every 6 hours as needed for Pain. Active atenolol (TENORMIN) 25 mg tablet Take 50 mg by mouth daily at bedtime. Active DULoxetine (CYMBALTA) 60 mg capsule Take 60 mg by mouth once daily. Active torsemide (DEMADEX) 20 mg tablet Take 20 mg by mouth once daily. Active potassium chloride (KLOR-CON) 20 mEq packet Take by mouth once daily. Active docosahexanoic acid/epa (FISH OIL ORAL) Take by mouth once daily. Takes 1 tablet daily Active Active Problems No known active problems Family History Medical History Relation Comments No Known Problems Father No Known Problems Mother Relation Status Comments Father Mother Social History Tobacco Use Types Packs/Day Years Used Date Smoking Tobacco: Never Smokeless Tobacco: Never Alcohol Use Standard Drinks/Week Comments Yes 0 (1 standard drink = 0.6 oz pur e alcohol) AUDIT-C Answer Date Recorded Q1: How often do you have a drink containing alc ohol? Monthly or less 10/05/2019 Average Number of Drinks Not on file 019 Frequency of Binge Drinking Not on file 09/11 PHQ-2 Answer Date Recorded PHQ-2 score 4 07/07/2019 Area Deprivation Index Answer Date Jose rded National Score (1-100), lower number is lower ri sk Not on file 10/15/2020 State Score (1-10), lower number is lower risk N ot on file 10/15/2020 Data from: https://www.neighborhoodatlas.medicine.[facility]/. Last address used for calculation Not on file 10/15/2020 Comments Unknown Sex and Gender Information Value Date Recorded Sex Assigned at Not on file Legal Sex Female 7:33 AM EST Gender Identity Not on file Sexual Orientation Not on file Last Filed Vital Signs Vital Sign Reading Time Taken Comments Blood Pressure 121/58 10/05/2019 2:13 PM EST Pulse 81 10/05/2019 2:13 PM EST Temperature - - Respiratory Rate - - Oxygen Saturation 97% 07/07/2019 9:42 AM EDT Inhaled Oxygen Concentration - - Weight 124.2 kg (273 lb 12.8 oz) 10/05/2019 2:13 PM EST Height 167.6 cm (5' 6 ) 10/05/2019 2:13 PM EST Body Mass Index 44.19 10/05/2019 2:13 PM EST Plan of Treatment Health Maintenance Due Date Last Done Comments Anxiety Screening 01/19/1974 Depression Screening 01/19/1974 Hepatitis C Screening 01/19/1974 DTaP,Tdap,Td Vaccine (1 - Tdap) 01/19/[address] Colonography 01/19/2001 Cologuard (FIT-DNA) 01/19/2001 Diabetes Screening 01/19/2001 Fecal Occult Blood 01/19/2001 Lipid Screening 01/19/2001 Sigmoidoscopy 01/19/2001 Pneumococcal Vaccine: 50+ (1 of 1 - PCV) 01/19/2006 Shingrix Vaccine (1 of 2) 01/19/2006 Colonoscopy 10/31/2006 10/31/2005 Colorectal Cancer Screening 10/31/2006 Bone Density Screening 01/19/2021 Advance Directive Discussion 11/10/2024 Influenza Vaccine (#1) 2025 RSV Vaccine (1 - 1-dose 75+ series) 01/19/2031 Procedures Procedure Name Priority Date/Time Associated Diagnosis Comments COLONOSCOPY, GI 10/31/2005 from Last 3 Months or Most Recently Relevant to Health Maintenance Results * COLONOSCOPY, GI (10/31/2005) Museum Security Chief DATE: 10/31/2005 ENDOSCOPIST: Osei Pena D.O. REFERRING PHYSICIAN: PATIENT NAME: Adriana [facility] NO: [id number] IMPRESSION: 1. Hiatal hernia. 553.3. 2. Nonerosive gastritis. 535.40. 3. Duodenal diverticulum. 562.0. 4. The gallbladder has been removed. The bile duct measures 9 mm in diameter. INTRODUCTION Female patient presents for an elective outpatient EGD/EUS. The indications for the procedure were an abnormal/equivocal imaging study, abdominal pain and abnormal liver enzymes. CONSENT: The benefits, risks, and alternatives to the procedure were discussed and informed consent was obtained from the patient. PREPARATION: Pulse, pulse oximetry and blood pressure monitored. MEDICATIONS: - Fentanyl 200 mg IV before the procedure - Versed 7 mg IV before the procedure - Cetacaine topically before the procedure - Propofol 50 mg IV before the procedure after the above was not effective PROCEDURE: The endoscope was passed with ease under direct visualization to the 2nd portion of the duodenum. A staff physician was present for the entire procedure from the insertion to the removal of the scope. Retroflexion was performed. FINDINGS: HYPOPHARYNX: The hypopharynx appeared normal. ESOPHAGUS: The esophagus appeared normal. GE-JUNCTION: There was a small sliding hiatal hernia. The gastroesophageal junction was otherwise normal. STOMACH: There was evidence of nonerosive gastritis. The stomach was otherwise normal. PYLORUS: The pylorus appeared normal. DUODENUM: There was a single diverticulum present in the 2nd portion of the duodenum. The duodenum was otherwise normal. EUS: The echoendoscope was passed with ease under direct visualization to the 2nd portion of the duodenum and good endosonographic views were obtained. EUS Findings: PANCREAS: Normal pancreatic EUS. BILIARY TRACT: The gallbladder has been removed. The bile duct measures 9 mm in diameter. STOMACH: Normal gastric EUS. DUODENUM: Normal duodenal EUS. [facility] 10/31/2005 Narrative [facility] - 10/31/2005 5:13 PM EST Ordered by an unspecified provider. us [facility]cf Provider SCHEDULED PROCEDURES Final Resul t [facility] [address] [place] [address] from Last 3 Months or Most Recently Relevant to Health Maintenance Insurance MEDICARE Care Teams Helicopter Officer Relationship Specialty Start Date End Date Connie Stewart MD [address] [place] [address] PCP - General Family Medicine 09/13/19
--- OUTSIDE RECORDS SUMMARY | 2025-08-11 10:44 | XMS_ITS | Encounter Summary ---
Author Organization [facility] Address [address] [place] [address] Phone Care Team Providers Care Tool Storage Attendant Name Role Phone Connie Stewart MD Primary Care Provider [phone] Encounter Details Date Type Department Care Team (Late st Contact Info) Description 10/03/2020 Orders Only [facility] LEGACY [address] [place] [address] Conversion, Onbase Social History Tobacco Use Types [...] Description 03/10/2026 2:00 PM EDT Office Visit [place] [id number] [facility] [address] [place] [address] Iban Torrez MD 703 [facility] 2, [place] [address] [place] [address] Scheduled Orders Name Type Priority Associated Diagnoses Orde r Schedule OUTSIDE LAB SCAN Lab Ordered: 10/03/2020 documented as of this encounter Visit Diagnoses Not on filedocumented in this encounter Care Teams Tool Storage Attendant Relationship Specialty Start Date End Date Connie Stewart MD [address] [place] [address] [address] [place] [id number] PCP - General 08/25/19 documented as of this encounter
--- OUTSIDE RECORDS SUMMARY | 2025-08-11 10:44 | XMS_ITS | Clinical Summary ---
Author Organization [facility] Address [address] [place] [address] Care Team Providers Care Private Security Guard Name Role Phone Unavailable Primary Care Provider Unavailabl e Social History Tobacco Use Types Packs/Day Years Used Date Smoking Tobacco: Never Assessed Comments Unknown Sex and Gender Information Value Date Recorded Sex Assigned at Not on file Legal Sex Female 7:23 PM EDT Gender Identity Not on file Sexual Orientation Not on file Last Filed Vital Signs Vital Sign Reading Time Taken Comments Blood Pressure 126/78 04/22/2019 12:00 PM EDT Pulse - - Temperature - - Respiratory Rate - - Oxygen Saturation - - Inhaled Oxygen Concentration - - Weight 113 kg (250 lb) 04/17/2021 12:00 PM EDT Height 167.6 cm (5' 6 ) 04/17/2021 12:00 PM EDT Body Mass Index 40.35 04/17/2021 12:00 PM EDT Plan of Treatment Health Maintenance Due Date Last Done Comments CT Colonography 1956 Colonoscopy 1956 Colorectal Cancer Screening 1956 FIT-DNA 1956 FIT 1956 FOBT 1956 Sigmoidoscopy 1956 Mammogram 1996 Pneumococcal Vaccine: 65+ Ye ars (1 of 1 - PCV) 01/19/2006 Influenza Vaccine (#1) 2025 3, 08/10/2013, 07/19/2012, Additional history exists Insurance [phone] ([address] [id number] [employer] MEDICARE ADVANTAGE
--- OUTSIDE RECORDS SUMMARY | 2025-08-11 10:44 | XMS_ITS | Encounter Summary ---
Author Organization [facility] Address [address] [place] [address] Care Team Providers Care Water Treatment Plant Mechanic Name Role Phone Margoth Harrison Primary Care Provider [phone] Connie Stewart MD Primary Care Provider [phone] Source Comments In the event this information is protected by the Federal Confidentiality of Alcohol and Drug AbusePatient Records regulations: The Federal rules restrict any use of the information to criminally investigate or prosecute any alcohol or drug abuse patient.[facility] Encounter Details Date Type Department Care Team (Late st Contact Info) Description 06/14/2019 Abstract Neurology [facility] [place] [address] Sukhwinder White (Hist) Social History Tobacco Use Types Packs/Day Years Used Date Smoking Tobacco: Never Assessed Comments Unknown Sex and Gender Information Value Date Recorded Sex Assigned at Not on file Legal Sex Female 7:33 AM EST Gender Identity Not on file Sexual Orientation Not on file documented as of this encounter Plan of Treatment Not on file documented as of this encounter Visit Diagnoses Diagnosis Cervical disc disorder with radiculopathy- Primary Brachial neuritis or radiculitis nos documented in this encounter Care Teams Water Treatment Plant Mechanic Relationship Specialty Start Date End Date Margoth Harrison [address] [place] [address] PCP - General 10/11/05 09/12/19 Connie Stewart MD [address] [place] [phone] PCP - General Family Medicine 09/13/19 documented as of this encounter
--- OUTSIDE RECORDS SUMMARY | 2025-08-11 10:44 | XMS_ITS | Encounter Summary ---
Author Organization [facility] Address [address] [place] [address] Phone Care Team Providers Care Specifications Checker Name Role Phone Connie Stewart MD Primary Care Provider [phone] Encounter Details Date Type Department Care Team (Late st Contact Info) Description 09/07/[address] [facility] LEGACY [address] [place] [address] Conversion, Onbase Social History Tobacco Use Types [...] Description 03/10/2026 2:00 PM EDT Office Visit [place] [address] [facility] [address] [place] [address] Iban Torrez MD 703 [facility] 2, [place] [address] [place] [address] Scheduled Orders Name Type Priority Associated Diagnoses Orde r Schedule OUTSIDE LAB SCAN Lab Ordered: 09/07/2019 documented as of this encounter Visit Diagnoses Not on filedocumented in this encounter Care Teams Specifications Checker Relationship Specialty Start Date End Date Connie Stewart MD [address] [place] [address] [address] [place] [id number] PCP - General 08/25/19 documented as of this encounter
--- OUTSIDE RECORDS SUMMARY | 2025-08-11 10:45 | XMS_ITS | Encounter Summary ---
Author Organization [facility] Address [address] [place] [address] Phone Care Team Providers Care Dope House Operator Helper Name Role Phone Connie Stewart MD Primary Care Provider [phone] Encounter Details Date Type Department Care Team (Late st Contact Info) Description 04/17/2022 Orders Only [facility] LE[facility]Y [address] [place] [address] Conversion, Onbase Social History Tobacco Use Types [...] Description 03/10/2026 2:00 PM EDT Office Visit [place] [address]2833 [facility] [address] [place] [address] Iban Torrez MD 703 [facility] 2, [place] [address] [place] [address] Scheduled Orders Name Type Priority Associated Diagnoses Orde r Schedule OUTSIDE LAB SCAN Lab Ordered: 04/17/2022 documented as of this encounter Visit Diagnoses Not on filedocumented in this encounter Care Teams Dope House Operator Helper Relationship Specialty Start Date End Date Connie Stewart MD [address] [place] [address] [address] [place] [id number] PCP - General 08/25/19 documented as of this encounter
--- OUTSIDE RECORDS SUMMARY | 2025-08-11 10:45 | XMS_ITS | Patient Health Record ---
Author Organization [facility] [place] Address [address] [place] [address] Care Team Providers Care Cvicu Nurse Name Role Phone None, Unknown or Primary Care Provider Unavailab Robert Cornell Unavailable [phone] Reason For Referral No Information Problems Problem Type SNOMED Code ICD Code Onset Dates Problem Status W/U Status Risk Notes Problem Walking disability (993329743) Inability to walk (R26.2) Active confirmed Problem Chronic ulcer of left leg, with fat layer exposed (L97.922) Active confirmed Plan Of Treatment No Information Insurance Providers Payer Name Payer Address Payer Phone Subscriber Number Group Number Insured Name Patient Relationship to Insured Coverage Start Date Coverage End Date [employer] MEDICARE [address] [place] [address] [id number] Adriana Dinero Self - patient is the insured
--- NOTE | 2025-08-11 10:47 | XR_ITS ---
The [address] [address] Patient Name: INDERJIT MANN MRN: [id number] date: 1955 Sex: F Assigned Patient Location: [facility] Current Patient Location: [facility] Accession/Order Number: [id number] Exam Date: 08/11/2025 11:20 Report Date: 08/11/2025 12:03 At the request of: TOBY QUINTANA MD Procedure: XR lumbar spine 2-3V LUMBAR SPINE - 2 views COMPARISON: CT 09/07/2024 CLINICAL DATA: Chronic back pain. Previous fusion. AP and lateral views were obtained. There is osteopenia. There is subtle dextroscoliotic curvature. Patient is status post laminectomy and fusion with posterior rods and pedicle screws extending from L2 through L4. There are also interbody fusion devices from L2-3 through L4-5. The hardware appears intact and unchanged in position. No developing fractures are identified. There is no significant displacement. There is disc space narrowing with endplate sclerosis and spurring at L1-2. There is lower lumbar facet hypertrophy. The SI joints are intact and show mild sclerosis. No paraspinal soft tissue abnormalities are present. There is atherosclerotic plaque at the aorta and iliac arteries. XR/XR lumbar spine 2-3V IMPRESSION: OSTEOPENIA, SUBTLE SCOLIOSIS, POSTOPERATIVE AND DEGENERATIVE CHANGES. Impression dictated by: Shiloh Hernández M.D. 08/11/2025 12:03 PM Dictation Location: [place] [address] Electronically authenticated by: [id number] Y Date: 08/11/2025 12:03
== END 2025-08-11 10:40 | disposition home or self-care (01) ==
LOC: RAD 10:40
PROVIDERS: PCP Family Medicine; Visit Provider Family Medicine
DX: M54.16 Radiculopathy, lumbar region (principal); M85.88 Other specified disorders of bone density and structure, other site; M51.369 Other intervertebral disc degeneration, lumbar region without mention of lumbar back pain or lower extremity pain
CPT/HCPCS: 72100